=== PATIENT | male | born 1960 | race Caucasian/White ===

== ENCOUNTER 2021-10-02 07:54 | Outpatient (CLI) | payer OTHER, SELFPAY | END 2021-10-02 07:55 | disposition home or self-care (01) | PROVIDERS: PCP Family Medicine; Visit Provider Nurse Practitioner Family | DX: E11.622 Type 2 diabetes mellitus with other skin ulcer (principal); L97.322 Non-pressure chronic ulcer of left ankle with fat layer exposed; I89.0 Lymphedema, not elsewhere classified; I87.2 Venous insufficiency (chronic) (peripheral); L03.116 Cellulitis of left lower limb | CPT/HCPCS: 11042; 11045 ==

== ENCOUNTER 2021-10-09 07:51 | Outpatient (CLI) | payer OTHER, SELFPAY | END 2021-10-09 07:52 | disposition home or self-care (01) | PROVIDERS: PCP Family Medicine; Visit Provider Physician Assistant Surgical | DX: E11.622 Type 2 diabetes mellitus with other skin ulcer (principal); L97.822 Non-pressure chronic ulcer of other part of left lower leg with fat layer exposed; Z79.84 Long term (current) use of oral hypoglycemic drugs; I89.0 Lymphedema, not elsewhere classified; I87.2 Venous insufficiency (chronic) (peripheral) | CPT/HCPCS: 11042 ==

== ENCOUNTER 2021-10-16 07:53 | Outpatient (CLI) | payer OTHER, SELFPAY | END 2021-10-16 07:54 | disposition home or self-care (01) | LOC: WOUND 07:53 | PROVIDERS: PCP Family Medicine; Visit Provider Physician Assistant Surgical | DX: E11.622 Type 2 diabetes mellitus with other skin ulcer (principal); L97.822 Non-pressure chronic ulcer of other part of left lower leg with fat layer exposed; I89.0 Lymphedema, not elsewhere classified; I87.2 Venous insufficiency (chronic) (peripheral) | CPT/HCPCS: 11042 ==

== ENCOUNTER 2021-10-30 07:34 | Outpatient (CLI) | payer OTHER, SELFPAY | END 2021-10-30 07:35 | disposition home or self-care (01) | LOC: WOUND 07:34 | PROVIDERS: PCP Family Medicine; Visit Provider Physician Assistant Surgical | DX: E11.622 Type 2 diabetes mellitus with other skin ulcer (principal); L97.822 Non-pressure chronic ulcer of other part of left lower leg with fat layer exposed | CPT/HCPCS: 11042 ==

== ENCOUNTER 2021-11-13 07:59 | Outpatient (CLI) | payer OTHER, SELFPAY | END 2021-11-13 08:00 | disposition home or self-care (01) | LOC: WOUND 07:59 | PROVIDERS: PCP Family Medicine; Visit Provider Physician Assistant Surgical | DX: E11.622 Type 2 diabetes mellitus with other skin ulcer (principal); L97.822 Non-pressure chronic ulcer of other part of left lower leg with fat layer exposed | CPT/HCPCS: 11042 ==

== ENCOUNTER 2021-12-11 07:53 | Outpatient (CLI) | payer OTHER, SELFPAY ==
--- OUTSIDE RECORDS SUMMARY | 2021-12-11 07:56 | XMS_ITS | Encounter Summary ---
:1960 Author Organization [facility] Address [address] [place] [address] Care Team Providers Name Role Phone Elsewhere, Pcp Primary Care Provider Unavailable Reason for Visit Reason Comments Wound Care both lower legs Encounter Details Date Type Department Care Team Description 11/23/2017 Office Visit Department of Internal [place], Lory barron Venous Hypertension Idiopathic With Ulcer And Inflammation Of Right Lower Extremity (HCC) (Primary Dx); Medicine in [place] H[place], TANK INSULATOR RUBBER, C.N.P. Varicose Vein Lower Extremity With Ulcer And Inflammation Left (HCC); [address] Diabetes Mellitus Type 2 (HCC); [address] [place], [place] Edema Leg Chronic [place]ER [place] [phone] Social History Tobacco Use Types Packs/Day Years Used Date Smoking Tobacco: Never Smokeless Tobacco: Never Sex Assigned at Date Recorded Not on file documented as of this encounter Last Filed Vital Signs Vital Sign Reading Time Taken Comments Blood Pressure 137/68 11/23/2017 9:34 AM CDT Pulse 66 11/23/2017 9:34 AM CDT Temperature 36.5 ??C (97.7 ??F) 11/23/2017 9:34 AM CDT Respiratory Rate 18 11/23/2017 9:34 AM CDT Oxygen Saturation - - Inhaled Oxygen Concentration - - Weight 135 kg (298 lb 8.1 oz) 11/23/2017 9:34 AM CDT Height - - Body Mass Index 42.12 05/02/2017 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 - 11/23/2017 9:30 AM CDT Chief Complaint Patient presents with ??? Wound Care both lower legs Julien Ridley is a 57 y.o. male with bilateral lower extremity venous stasis ulcers complicated by diabetes mellitus type 2 and edema with lymphedema. Tank goes to a primary provider in [place]. He has appoint with her on Tuesday. His legs are quite swollen. He has fluid under his eyes. He states he has been eating salty foods. He works occurred [employer] as 4 hr a day. He does take his diuretic. He states he has gained 10 lb. He denies any headaches fevers chills or night sweats. Denies any cardiac, respiratory, abdominal orGU complaints. His pain in his legs related to the gross edema. Current Outpatient Prescriptions: ??? blood sugar diagnostic strips, Use to test blood glucose 4 times daily., Disp: , Rfl: ??? blood-glucose meter kit, Use to test blood glucose 4 times daily., Disp: , Rfl: ??? elastic bandage bandage, , Disp: , Rfl: 12 ??? gabapentin (for_NEURONTIN) 300 mg capsule, Take 300 mg by mouth 3 (three) times a day. , Disp: ,Rfl: ??? ibuprofen (ADVIL,MOTRIN) 200 mg capsule, Take 200 mg by mouth every 6 (six) hours as needed for pain., Disp: , Rfl: ??? lancets 33 gauge misc, Use to test blood glucose 4 times daily., Disp: , Rfl: ??? metFORMIN XR (GLUCOPHAGE-XR) 500 mg 24 hr tablet, Take 1,000 mg by mouth., Disp: , Rfl: ??? oxyCODONE (ROXICODONE) 5 mg immediate release tablet, Take 5-10 mg by mouth., Disp: , Rfl: ??? PETROLATUM GAUZE bandage, , Disp: , Rfl: 20 ??? potassium chloride (KLOR-CON SPRINKLE) 10 mEq ER sprinkle capsule, , Disp: , Rfl: ??? torsemide (DEMADEX) 5 mg tablet, , Disp: , Rfl: ??? zinc oxide 20 % ointment, , Disp: , Rfl: 12. Allergies Allergen Reactions ??? Dimethicone-Petrolatum Rash ??? Horse [place] Rash ??? Mepilex Ag [Silver Sulfate-Foam Bandage] Rash ??? Silver Rash and Other (see comments) Past Medical History: Diagnosis Date ??? Hypertension Chronic 01/08/2014 Hypertension (HTN) Chronic ??? Hypertension Essential Primary 01/08/2014 Hypertension (HTN) Chronic ??? 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 Hypertension Venous Chronic With Ulcer And Inflammation Left (HCC) 11/24/2009 Venous Stasis Ulcer with Inflammation ??? Infection Bacterial 06/17/2017 ??? Morbid Obesity Body Mass Index Greater Than Or Equal To 40 Adult ([facility]) 06/11/2015 Morbid Obesity Body Mass Index (BMI) >40 Adult ??? Varicose Vein Lower Extremity With Ulcer And Inflammation (HCC) 11/24/2009 Venous Stasis Ulcer with Inflammation ??? Varicose Vein Lower Extremity With Ulcer And Inflammation Bilateral (HCC) 02/21/2017 ??? Varicose Vein Lower Extremity With Ulcer And Inflammation Left ([facility]) 08/01/2015 Past Surgical History: Procedure Laterality Date ??? OTHER CONVERTED SHX (SEE COMMENT) N/A 10/24/2001 >Inversion stripping of the right greater saphenous vein. ??? OTHER CONVERTED SHX (SEE COMMENT) N/A 08/03/2001 >Left great saphenous vein stripping and varicose vein avulsion. ??? OTHER CONVERTED SHX (SEE COMMENT) N/A 06/01/2001 >Left fifth lumbar hemilaminectomy with left fifth lumbar-first sacral diskectomy. BP 137/68 (BP Location: Left arm, Patient Position: Sitting, Cuff Size: Large) Pulse 66 Temp 36.5 ??C (Temporal) Resp 18 Wt 135.4 kg BMI 42.12 kg/m?? PHYSICAL EXAMINATION: GENERAL: He is well groomed and appears tired. SKIN: The wounds on his left lower extremity have increased. Wound 1. Is on the anterior leg measuring 0.2 x 0.3 in superficial wound 2. Is distal measuring 1.5 cm x 1 cm and superficial. He has 3 wounds in the medial aspect of the leg the 1st wound measures 0.2 x 0.3 in his superficial that is at 12 o'clock face at 2 o'clock on o'clock face is another wound measuring 0.2 x 0.3 and superficial and a larger wound is at 6 o'clock measuring 0.8 x 1.5 and 0.1 deep. The leg has 4+ edema and lymphedema. The edema goes up his leg. The leg shows hemosiderin venous stasis changes. The right lower extremity has 2 wounds that are healing on the medial aspect of the leg the proximalwound measures 0.7 x 0.2 in a superficial the distal wound measures 0.5 x 0.4 and is 0.1 deep with the wound bed showing epithelialization and granulation. There is 4+ edema in the leg. There is venousstasis and hemosiderin changes noted. IMPRESSION/ REPORT/ PLAN Bilateral extremity venous stasis ulcers complicated by delayed healed bleeding morbid obesity, diabetes mellitus type 2 and edema. All the wounds were cleansed with saline and Hibiclens rinsed well and dried. Adaptic was applied over the wounds covered with sterile 4x4s held in place with a rolled gauze. Hisown compression was reapplied. I did talk to him about elevating his legs when he is at home higher than the level of his heart forabout 20 min a couple times a day. He will see his primary provider on Tuesday. I also suggested he have a low-salt diet. He will make sure his providers aware of his weight gain as well as a fluid in his legs, plus the new wounds on his left lower extremity. He will return in 2 weeks for ongoing wound care. documented in this encounter Plan of Treatment Not on filedocumented as of this encounter Visit Diagnoses Diagnosis Chronic Venous Hypertension Idiopathic W ith Ulcer And Inflammation Of Right Lower Extremity (HCC) - Primary Varicose Vein Lower Extremity With Ulcer And Inflammation Left (HCC) Diabetes Mellitus Type 2 (HCC) Edema Leg Chronic documented in this encounter Care Teams Footwear Sales Leader Relationship Specialty Start Date End Date Elsewhere, Pcp PCP - General Family Medicine 06/15/17 documented as of this encounter
--- OUTSIDE RECORDS SUMMARY | 2021-12-11 07:56 | XMS_ITS ---
:1960 Author Care Team Providers Name Role Phone GORDY SOL MD Primary Care Provider [phone] Allergies Code Code System Name Reaction Severity Status Onset Adhesive Tape ? ? Active ? 9785 RxNorm Silver ? ? Active ? Medications Name Status Start Date Stop Date ? ? ciprofloxacin 500 mg tablet Active ? Not available hydroxyzine pamoate 25 mg capsule Active ? Not available metformin ER 500 mg tablet,extended release 24 hr Active ? Not available oxycodone 5 mg tablet Active ? Not availa ble prednisone 20 mg tablet Active ? Not avai lable Senexon-S 8.6 mg-50 mg tablet Active ? No t available tadalafil 20 mg tablet Active ? Not avail able tamsulosin 0.4 mg capsule Active ? Not av ailable torsemide 10 mg tablet Active ? Not avail able Problems Name Status Onset Date Source ? Carcinoma of Prostate Active 11/21/2019 ? Primary Erectile Dysfunction Active 05/01/2020 ? Male Urinary Stress Incontinence Active 05/01/2020 ? Procedures Date Name Performed by ? ? Colonoscopy Information not avai lable Notes: NEVER PERFORMED OF 12/09/20 ? Prostatectomy Information not avai lable 11/13/2019 CT, Pelvis, W/o Contrast Information not available Results Lab Results Date Name Specimen Result Interpretation Description Value Range Status Address ? 10/24/2020 PSA, Serum or ? PSA, Total <0.04ng/mL ? ? Plasma 10/24/2020 PSA, Serum or ? No observation ? ? ? Plasma recorded. 05/01/2020 PSA, Serum or ? No observation ? ? ? Plasma recorded. ? PSA, Serum or ? PSA, Total <0.04 ng/ml ? ? Plasma ? PSA, Serum or ? PSA, Total <0.04 ng/Ml ? ? Plasma Past Encounters 10/24/2020 Carcinoma of Prostate; Malignant Tumor o f Prostate; Primary Erectile Dysfunction; Male Urinary Stress Incontinence Momo Mc MD: [address] [place] [phone], Ph. Social History Tobacco Smoking Status Never Smoker Vaccine List None recorded. Plan of Care Reminders Provider Appointments None recorded. ? ? Lab None recorded. ? ? Referral None recorded. ? ? Procedures None recorded. ? ? Surgeries None recorded. ? ? Imaging None recorded. ? ? Vitals 10/24/2020 10:10AM ESTABLISHED 10 Height Weight BMI 5 ft 11 in 285 lbs 39.7 kg/m2 05/01/2020 09:20AM ESTABLISHED 10 Height Weight BMI 5 ft 11 in 282 lbs 39.3 kg/m2 01/02/2020 08:10AM ESTABLISHED 10 Height Weight BMI 5 ft 11 in 282 lbs 39.3 kg/m2 11/21/2019 10:00AM ESTABLISHED 10 Height Weight BMI 5 ft 11 in 282 lbs 39.3 kg/m2
--- OUTSIDE RECORDS SUMMARY | 2021-12-11 07:56 | XMS_ITS | Encounter Summary ---
:1960 Author Organization [facility] Address [address] [place] [id number] Care Team Providers Name Role Phone Elsewhere, Pcp Primary Care Provider Unavailable Reason for Referral Specialty Diagnoses / Procedures Referred By Contact Refer red To Contact Ramandeep Austin M.D. [facility] [address] [place] [phone] Referral ID Status Reason Start Date Expiration Date Visits Requ ested Visits Authorized ENTRY MANAGER Encounter Details Date Type Department Care Team Description 02/11/2021 Orders Only RST PCP [facility] MNT Ramandeep Austin M.D. [address] [place] [address] [phone] (Wo rk) Social History Tobacco Use Types Packs/Day Years Used Date Smoking Tobacco: Never Smokeless Tobacco: Never Sex Assigned at Date Recorded Not on file documented as of this encounter Plan of Treatment Scheduled Referrals Name Type Priority Associated Order Schedule Diagnoses Covid immunization Outpatient Referral Routine Ex pected: office visit Booster 021 (Approximate), Expires: 02/11/2022 documented as of this encounter Visit Diagnoses Not on filedocumented in this encounter Care Teams Ornamental Iron Erector Relationship Specialty Start Date End Date Elsewhere, Pcp PCP - General Family Medicine 06/15/17 documented as of this encounter
--- OUTSIDE RECORDS SUMMARY | 2021-12-11 07:56 | XMS_ITS | Encounter Summary ---
:1960 Author Organization [facility] Address [address] [place] [address] Care Team Providers Name Role Phone Elsewhere, Pcp Primary Care Provider Unavailable Reason for Visit Reason Comments Wound Care left lower leg Encounter Details Date Type Department Care Team Description 08/24/2017 Office Visit Department of Internal Lory Sousa rtension Venous Medicine in Shahana Hester APRN, C.N.P. Chronic With Ulcer And [place] [address] Inflammation Left (HCC) [address] [place], [place] (Primary Dx) [place] [phone] Social History Tobacco Use Types Packs/Day Years Used Date Smoking Tobacco: Never Smokeless Tobacco: Never Sex Assigned at Date Recorded Not on file documented as of this encounter Last Filed Vital Signs Vital Sign Reading Time Taken Comments Blood Pressure 135/78 08/24/2017 8:51 AM CDT Pulse 63 08/24/2017 8:47 AM CDT Temperature 36.6 ??C (97.9 ??F) 08/24/2017 8:47 AM CDT Respiratory Rate - - Oxygen Saturation - - Inhaled Oxygen Concentration - - Weight 144 kg (317 lb 7.4 oz) 08/24/2017 8:47 AM CDT Height - - Body Mass Index 44.79 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 - 08/24/2017 9:00 AM CDT Continue wound care at home and return 4 weeks documented in this encounter Progress Notes Lory Sousa APRN, C.N.Hua. - 08/24/2017 9:00 AM CDT Chief Complaint Patient presents with ??? Wound Care left lower leg Julien Ridley is a 57 y.o. male with a left leg lower medial venous stasis ulcer complicated by history of delayed healing. He states that he was recently diagnosed with diabetes mellitus was started on metformin. He states he is doing well on the metformin. His primary provider is in [place]. He spent some time fishing and feels relaxed. He has no complaints with any review of systems. Current Outpatient Prescriptions: ??? gabapentin (for_NEURONTIN) 100 mg capsule, Take 100 mg by mouth 3 (three) times a day. , Disp: ,Rfl: ??? gabapentin (for_NEURONTIN) 300 mg capsule, Take 300 mg by mouth at bedtime. , Disp: , Rfl: ??? HYDROcodone-acetaminophen (for_NORCO) 5-325 mg per tablet, , Disp: , Rfl: ??? LYRICA 50 mg capsule, , Disp: , Rfl: ??? metFORMIN (GLUMETZA) 500 mg 24 hr tablet, Take 500 mg by mouth daily with breakfast., Disp: , Rfl: ??? naproxen sodium (ALEVE/ANAPROX) 220 mg tablet, Take 220 mg by mouth daily., Disp: , Rfl: Past Medical History: Diagnosis Date ??? Hypertension [...] Greater Than Or Equal To 40 Adult (HCC) 06/11/2015 Morbid Obesity Body Mass Index (BMI) >40 Adult ??? Varicose Vein Lower Extremity With Ulcer And Inflammation (HCC) 11/24/2009 Venous Stasis Ulcer with Inflammation ??? Varicose Vein Lower Extremity With Ulcer And Inflammation Bilateral (HCC) 02/21/2017 ??? Varicose Vein Lower Extremity With Ulcer And Inflammation Left (HCC) 08/01/2015 Past Surgical History: Procedure Laterality Date ??? OTHER CONVERTED SHX (SEE COMMENT) N/A 10/24/2001 >Inversion stripping of the right greater saphenous vein. ??? OTHER CONVERTED SHX (SEE COMMENT) N/A 08/03/2001 >Left great saphenous vein stripping and varicose vein avulsion. ??? OTHER CONVERTED SHX (SEE COMMENT) N/A 06/01/2001 >Left fifth lumbar hemilaminectomy with left fifth lumbar-first sacral diskectomy. BP 135/78 (BP Location: Left arm, Patient Position: Sitting, Cuff Size: Large) Pulse 63 Temp 36.6 ??C (Temporal) Wt (!) 144 kg BMI 44.79 kg/m?? PHYSICAL EXAMINATION: GENERAL: He is well groomed in no acute distress SKIN: The left medial lower leg wound measures 7 cm x 5.5 cm with several small open areas the deepest is 0.3. There is some excoriation in the phyllis wound skin. He has very sensitive skin and currentlyis using Xeroform as the only product that he can tolerate. IMPRESSION/ REPORT/ PLAN 1. Left lower extremity venous stasis ulcer complicated by history of delayed healing in a newly diagnosed diabetic patient. The wound was cleansed with saline and Hibiclens. The wounds rinse well with saline dried. Xeroform was applied to fit the open area only covered with a Telfa and an ABD. This was held in place with a rolled gauze. He will do his dressing changes at home and return in 4 weeks for ongoing wound care. documented in this encounter Plan of Treatment Not on filedocumented as of this encounter Visit Diagnoses Diagnosis Hypertension Venous Chronic With Ulcer A nd Inflammation Left (HCC) - Primary documented in this encounter Care Teams Wool Merchant Relationship Specialty Start Date End Date Elsewhere, Pcp PCP - General Family Medicine 06/15/17 documented as of this encounter
--- OUTSIDE RECORDS SUMMARY | 2021-12-11 07:56 | XMS_ITS | Encounter Summary ---
:1960 Author Organization [facility] Address [address] [place] [address] Care Team Providers Name Role Phone Elsewhere, Pcp Primary Care Provider Unavailable Reason for Visit Reason Comments Wound Care right lower leg Encounter Details Date Type Department Care Team Description 12/07/2017 Office Visit Department of Internal Lory Sousa Vari cose Vein Lower Extremity With Ulcer And Inflammation Left (HCC) (Primary Dx); Medicine in [place] Hester, PHARMACY AIDE, C.N.P. Stasis Ulcer Varicose Vein Right (HCC) [address] [place], [place] RAJWINDER HESTER [phone] Social History Tobacco Use Types Packs/Day Years Used Date Smoking Tobacco: Never Smokeless Tobacco: Never Sex Assigned at Date Recorded Not on file documented as of this encounter Last Filed Vital Signs Vital Sign Reading Time Taken Comments Blood Pressure 123/79 12/07/2017 9:10 AM CDT Pulse 75 12/07/2017 9:10 AM CDT Temperature 36.7 ??C (98.1 ??F) 12/07/2017 9:10 AM CDT Respiratory Rate 18 12/07/2017 9:10 AM CDT Oxygen Saturation - - Inhaled Oxygen Concentration - - Weight 128 kg (282 lb 13.6 oz) 12/07/2017 9:10 AM CDT Height - - Body Mass Index 39.91 05/02/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 - 12/07/2017 9:30 AM CDT Return as needed documented in this encounter Progress Notes Lory Sousa APRN, C.NJordan - 12/07/2017 9:30 AM CDT Chief Complaint Patient presents with ??? Wound Care right lower leg Julien Ridley is a 57 y.o. male with bilateral lower extremity venous stasis ulcers complicated by delayed healing history of diabetes and infection. He states his blood sugars have been under control. He has had little swelling in his legs and feelshis wounds are healing nicely. He offers no complaints with any review of systems. He is back to work at [employer] 8-12 hours a day. Current Outpatient Prescriptions: ??? blood sugar diagnostic [...] Rfl: ??? torsemide (DEMADEX) 5 mg tablet, 10 mg. , Disp: , Rfl: ??? traMADol (ULTRAM) 50 mg tablet, , Disp: , Rfl: 0 ??? zinc oxide 20 % ointment, , Disp: , Rfl: 12 Allergies Allergen Reactions ??? Dimethicone-Petrolatum Rash ??? Horse [place] Rash ??? Mepilex Ag [Silver Sulfate-Foam Bandage] Rash ??? Silver Rash and Other (see comments) Past Medical History: Diagnosis Date ??? Hypertension Chronic 01/08/2014 Hypertension (HTN) Chronic ??? Hypertension Essential Primary 01/08/2014 Hypertension (HTN) Chronic ??? 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 Hypertension Venous Chronic With Ulcer And Inflammation Left ([facility]) 11/24/2009 Venous Stasis Ulcer with Inflammation ??? Infection Bacterial 06/17/2017 ??? Morbid Obesity Body Mass Index Greater Than Or Equal To 40 Adult ([facility]) 06/11/2015 Morbid Obesity Body Mass Index (BMI) >40 Adult ??? Varicose Vein Lower Extremity With Ulcer And Inflammation ([facility]) 11/24/2009 Venous Stasis Ulcer with Inflammation ??? Varicose Vein Lower Extremity With Ulcer And Inflammation Bilateral ([facility]) 02/21/2017 ??? Varicose Vein Lower Extremity With Ulcer And Inflammation Left ([facility]) 08/01/2015 Past Surgical History: Procedure Laterality Date ??? OTHER CONVERTED SHX (SEE COMMENT) N/A 10/24/2001 >Inversion stripping of the right greater saphenous vein. ??? OTHER CONVERTED SHX (SEE COMMENT) N/A 08/03/2001 >Left great saphenous vein stripping and varicose vein avulsion. ??? OTHER CONVERTED SHX (SEE COMMENT) N/A 06/01/2001 >Left fifth lumbar hemilaminectomy with left fifth lumbar-first sacral diskectomy. BP 123/79 (BP Location: Right arm, Patient Position: Sitting, Cuff Size: Large) Pulse 75 Temp 36.7 ??C (Temporal) Resp 18 Wt 128.3 kg BMI 39.91 kg/m?? PHYSICAL EXAMINATION: GENERAL: He is well groomed in no acute distress SKIN: He has 2 small open areas on his right lower leg. The leg has some venous stasis and hemosiderin changes. There is trace edema in the foot. The proximal wound measures 0.3 x 0.1 cm and depth is superficial. The distal wound measures 0.4 x 0.2 and the depth is superficial. The left lower extremity has a small open area measuring 1 x 0.3 and superficial. There is no edema in this leg. There is scarring from old wounds. IMPRESSION/ REPORT/ PLAN Healing bilateral lower extremity venous stasis ulcers.. Both legs were washed with Hibiclens and saline rinsed well and dried. And Adaptic was applied over the wounds covered with a Telfa. He is currently discharged from wound care and will return only if his wounds worsened. His wounds are healing so nicely and he has almost total epithelialization on both legs. He did agree to contact me and make an appointment if the wounds worsen. I did tell him going forward he can see me in [place]. documented in this encounter Plan of Treatment Not on filedocumented as of this encounter Visit Diagnoses Diagnosis Varicose Vein Lower Extremity With Ulcer And Inflammation Left (HCC) - Primary Stasis Ulcer Varicose Vein Right (HCC) documented in this encounter Care Teams Software Integrator Relationship Specialty Start Date End Date Elsewhere, Pcp PCP - General Family Medicine 06/15/17 documented as of this encounter
--- OUTSIDE RECORDS SUMMARY | 2021-12-11 07:56 | XMS_ITS | Encounter Summary ---
:1960 Author Organization [facility] Address [address] [place] [address] Care Team Providers Name Role Phone Elsewhere, Pcp Primary Care Provider Unavailable Encounter Details Date Type Department Care Team Description 08/19/2017 Orders Only Department of [facility] [place], Lory V., Hypertens ion Venous Community Internal BUSINESS INTELLIGENCE CONSULTANT, C.N.P. Chronic With Ulcer And Medicine in [address] Inflammation Left (HCC) [place], [place] (Primary Dx) [address] [facility] [address] [place], [place] [phone] (Work) [phone] Social History Tobacco Use Types Packs/Day Years Used Date Smoking Tobacco: Never Smokeless Tobacco: Never Sex Assigned at Date Recorded Not on file documented as of this encounter Plan of Treatment Not on filedocumented as of this encounter Visit Diagnoses Diagnosis Hypertension Venous Chronic With Ulcer A nd Inflammation Left (HCC) - Primary documented in this encounter Care Teams Supervisor Newspaper Deliveries Relationship Specialty Start Date End Date Elsewhere, Pcp PCP - General Family Medicine 06/15/17 documented as of this encounter
--- OUTSIDE RECORDS SUMMARY | 2021-12-11 07:56 | XMS_ITS | Encounter Summary ---
:1960 Author Organization [facility] Address [address] [place] [address] Care Team Providers Name Role Phone Elsewhere, Pcp Primary Care Provider Unavailable Reason for Visit Reason Comments Other wound care, bilateral lower legs Encounter Details Date Type Department Care Team Description 10/06/2017 Office Visit Department of [facility], Karen Owens APRN, C.N.P. [address] [place] [address] Stasis Ulcer With Varicose Vein Left (HC C) (Primary Dx); Medicine, Cisne Tawana Matthews APRN, C.N.P., M.S.N. [address] [place] [address] Stasis Ulcer Varicose Vein Right (HCC); Clinic, in [facility] Diabete s Mellitus Type 2 (HCC); [facility] [address] [place] [address] Social History Tobacco Use Types Packs/Day Years Used Date Smoking Tobacco: Never Smokeless Tobacco: Never Sex Assigned at Date Recorded Not on file documented as of this encounter Last Filed Vital Signs Vital Sign Reading Time Taken Comments Blood Pressure 139/79 10/06/2017 11:10 AM CDT Pulse 92 10/06/2017 11:10 AM CDT Temperature 36.7 ??C (98.1 ??F) 10/06/2017 11:10 AM CDT Respiratory Rate - - Oxygen Saturation - - Inhaled Oxygen Concentration - - Weight 129 kg (285 lb 0.9 oz) 10/06/2017 11:10 AM CDT Height - - Body Mass Index 40.22 05/02/2017 12:50 PM DIRECTOR OF MEDICAL EDUCATION documented in this encounter Progress Notes Tawana Matthews APRN CKristineNLu., M.S.N. - 10/06/2017 11:30 AM CDT CHIEF COMPLAINT/REASON FOR VISIT Wound care HISTORY OF PRESENT ILLNESS Julien Ridley is a 57-year-old male with a history of chronic left lower extremity venous stasis ulcers. He was hospitalized in the [facility] for diabetes mellitus type 2. Shortly after, he was hospitalized in [facility] for bilateral lower extremity cellulitis. He ended up having large open wounds on his right leg also. He is currently on 2 antibiotics for cellulitis. He has been completing daily wound cares at home and brings in his instructions. He presents for routine wound care. He has no other concerns or complaints. SYSTEMS REVIEW All other systems reviewed and are negative except as stated in HPI. Patient Active Problem List Diagnosis ??? Ulcer of ankle ??? Morbid obesity ??? Hypertension Essential Primary ??? Hypertension Venous Chronic ??? Lesion Skin Leg ??? Ulcer Leg Right (HCC) ??? Infection Bacterial ??? Cellulitis Leg Left ??? Cellulitis Leg Right ??? Eczema ??? Edema Leg Chronic ??? Herniated Disc Lumbar ??? Insufficiency Venous Peripheral ??? Lymphedema ??? Reaction Allergic Initial ??? Varicose Vein Lower Extremity With Inflammation ??? Stasis Ulcer With Varicose Vein Left (HCC) ??? Swelling Leg ??? Diabetes Mellitus Type 2 (HCC) ??? Varicose Vein Lower Extremity With Ulcer And Inflammation Left (HCC) ??? Insufficiency Venous ??? Chronic Venous Hypertension Idiopathic With Ulcer And Inflammation Of Right Lower Extremity (HCC) Social History ??? Marital status: Social History Main Topics ??? Smoking status: Never Smoker ??? Smokeless tobacco: Never Used ??? Alcohol use Not on file ??? Drug use: Unknown ??? Sexual activity: Not on file Family History Problem Relation Age of Onset ??? Parkinsons disease Father Past Medical History: Diagnosis Date ??? Hypertension [...] With Ulcer And Inflammation Left ([facility]) 08/01/2015 Past Surgical History: Procedure Laterality Date ??? OTHER CONVERTED SHX (SEE COMMENT) N/A 10/24/2001 >Inversion stripping of the right greater saphenous vein. ??? OTHER CONVERTED SHX (SEE COMMENT) N/A 08/03/2001 >Left great saphenous vein stripping and varicose vein avulsion. ??? OTHER CONVERTED SHX (SEE COMMENT) N/A 06/01/2001 >Left fifth lumbar hemilaminectomy with left fifth lumbar-first sacral diskectomy. Allergies Allergen Reactions ??? Dimethicone-Petrolatum Rash ??? Horse [place] Rash ??? Mepilex Ag [Silver Sulfate-Foam Bandage] Rash ??? Silver Rash and Other (see comments) Current Outpatient Prescriptions: ??? blood sugar diagnostic strips, Use to test blood glucose 4 times daily., Disp: , Rfl: ??? blood-glucose meter kit, Use to test blood glucose 4 times daily., Disp: , Rfl: ??? cephalexin (KEFLEX) 500 mg capsule, , Disp: , Rfl: ??? gabapentin (for_NEURONTIN) 300 mg capsule, Take 300 mg by mouth 3 (three) times a day. , Disp: ,Rfl: ??? glyBURIDE (DIABETA) 2.5 mg tablet, Take 2.5 mg by mouth., Disp: , Rfl: ??? lancets 33 gauge misc, Use to test blood glucose 4 times daily., Disp: , Rfl: ??? metFORMIN XR (GLUCOPHAGE-XR) 500 mg 24 hr tablet, Take 1,000 mg by mouth., Disp: , Rfl: ??? oxyCODONE (ROXICODONE) 5 mg immediate release tablet, Take 5-10 mg by mouth., Disp: , Rfl: ??? potassium chloride (KLOR-CON SPRINKLE) 10 mEq ER sprinkle capsule, , Disp: , Rfl: ??? sulfamethoxazole-trimethoprim (BACTRIM DS) 800-160 mg per tablet, , Disp: , Rfl: ??? torsemide (DEMADEX) 5 mg tablet, , Disp: , Rfl: ??? elastic bandage bandage, , Disp: , Rfl: 12 ??? PETROLATUM GAUZE bandage, , Disp: , Rfl: 20 ??? zinc oxide 20 % ointment, , Disp: , Rfl: 12 VITAL SIGNS BP 139/79 (BP Location: Right arm, Patient Position: Sitting, Cuff Size: Large) Pulse 92 Temp 36.7 ??C Wt 129.3 kg BMI 40.22 kg/m?? PHYSICAL EXAMINATION GENERAL: This is a well-appearing adult male in no acute distress. He is alert and oriented to person, place and time. SKIN: Right lower extremity shows 2+ edema with erythema. The wound on the medial malleolus measures0.7 cm x 0.9 cm x 0.2 cm. The wound on the medial right calf is 0.9 x 0.4 cm. The adjacent wound measures 0.2 x 2.1 cm. The wound beds are showing slough with minimal granulating tissue. IMPRESSION/REPORT/PLAN #1 Stasis Ulcer With Varicose Vein Left (HCC) #2 Stasis Ulcer Varicose Vein Right (HCC) #3 Diabetes Mellitus Type 2 (HCC) #4 Lymphedema All wounds were cleansed with saline and dried. Vaseline gauze was cut to fit over the wounds. Vanicream applied to bilateral lower legs. Wounds were covered with sterile gauze and an ABD pad. Bilateral legs were covered in Kerlix to keep dressings in place. A knee high edema flow stocking was appliedwith a tubigrips. Follow-up wound care is set for next week. All questions have been answered and patient is in agreement with this plan. ADMINISTRATIVE BILLING: Total visit time 40 minutes, with 10 minutes spent in counseling. documented in this encounter Plan of Treatment Not on filedocumented as of this encounter Visit Diagnoses Diagnosis Stasis Ulcer With Varicose Vein Left (HC C) - Primary Stasis Ulcer Varicose Vein Right (HCC) Diabetes Mellitus Type 2 (HCC) Lymphedema documented in this encounter Care Teams Weigher Alloy Relationship Specialty Start Date End Date Elsewhere, Pcp PCP - General Family Medicine 06/15/17 documented as of this encounter
--- OUTSIDE RECORDS SUMMARY | 2021-12-11 07:56 | XMS_ITS | Encounter Summary ---
:1960 Author Organization [facility] Address [address] [place] [address] Care Team Providers Name Role Phone Elsewhere, Pcp Primary Care Provider Unavailable Reason for Visit Reason Comments Other facial swelling - [place]did get wind and sun burn and eyes were itchy x 1 day Encounter Details Date Type Department Care Team Description 08/24/2018 Office Visit Urgent Care in [place] Dermatitis (Primary Dx); Elma Hector M.D. Cerumen Impacted Bilateral [address] [place] [address] Social History Tobacco Use Types Packs/Day Years Used Date Smoking Tobacco: Never Smokeless Tobacco: Never Sex Assigned at Date Recorded Not on file documented as of this encounter Last Filed Vital Signs Vital Sign Reading Time Taken Comments Blood Pressure 145/80 08/24/2018 3:06 PM CDT Pulse 82 08/24/2018 3:06 PM CDT Temperature 37.3 ??C (99.1 ??F) 08/24/2018 3:06 PM CDT Respiratory Rate 16 08/24/2018 3:06 PM CDT Oxygen Saturation - - Inhaled Oxygen Concentration - - Weight 128 kg (281 lb 8.4 oz) 08/24/2018 3:06 PM CDT Height - - Body Mass Index 39.72 05/02/2017 12:50 PM MED SURG RN documented in this encounter Progress Notes [place] M.D. - 08/24/2018 2:15 PM CDT CHIEF COMPLAINT / REASON FOR VISIT Julien Ridley is a 58 y.o. male who presents for evaluation of Other (facial swelling - was up [facility] -did get wind and sun burn and eyes were itchy x 1 day ). HISTORY OF PRESENT ILLNESS This pleasant 58-year-old male just returned from a week-long fishing trip to [facility] presents indicating that he did have a fair amount of facial sun exposure without using sunscreen. He has developed significant redness, swelling, and pruritus over the facial surface to neckline. Patient does have a prior history of recurrent cellulitis and actually has been given a prescriptionfor clindamycin that he can take in the event of recurrence. As a diabetic, his most recent blood glucose range has been in the 117-150 range. He is followed by primary care in [place] and his last hemoglobin A1c reportedly was just over 6 earlier this month.He has had no fever and no chill. No other acute symptomatic concerns are voiced. REVIEW OF SYSTEMS No other current acute HEENT or cardio respiratory positive. CURRENT MEDICATIONS As per EMR. ALLERGIES Allergies as of 08/24/2018 - Reviewed 08/24/2018 Allergen Reaction Noted ??? Dimethicone-petrolatum Rash 02/01/2014 ??? Horse chestnut Rash 07/16/2016 ??? Mepilex ag [silver sulfate-foam bandage] Rash 02/01/2014 ??? Silver Rash and Other (see comments) 02/08/2014 VITALS SIGNS BP 145/80 (BP Location: Right arm, Patient Position: Sitting, Cuff Size: Regular) Pulse 82 Temp 37.3 ??C (Temporal) Resp 16 Wt 128 kg BMI 39.72 kg/m?? PHYSICAL EXAMINATION General: Pleasant male in no acute distress with obvious facial swelling left greater than right. HEENT: External auditory canals are full of cerumen successfully removed with aid of irrigation at patient request and thereafter the TMs appear clear. Nose is free of congestion. Nasopharynx is not inflamed and there is no angioedema of the nasopharynx. Patient however has rather diffuse swelling about the left greater than right face and considerable erythema consistent with sun exposure but no area of localized tenderness. I see no definite evidence of secondary infection. Dermatitis alone is appreciated about the neckline in the distribution of sun exposure. No blistering. Cardiovascular: Regular. Lungs: Clear. Extremities: Patient also has slight sun exposure burn over the dorsal hands. ASSESSMENT/PLAN #1 Dermatitis l Facial/neck dermatitis consistent with sunburn and an element of dermatitis with angioedema without clear evidence of secondary bacterial infection. #2 Cerumen Impacted Bilateral Status post debridement with irrigation. DIAGNOSTIC; CBC returns of benign appearance. Attention was called the patient's borderline blood pressure elevation today the declined a recheck at this time. THERAPEUTIC: Endorse Benadryl orally as directed. Discussed oral verses topical steroid addition for the facial region and he preferred topical. Triamcinolone is provided as per EMR reviewing long-term topical steroid risks. Cerumen debridement as discussed PATIENT EDUCATION: Reviewed all of the above. Follow-up p.r.n. lack of steady and complete recovery. [place] M.D. documented in this encounter Procedure Notes Iesha Ya C.M.A. - 08/24/2018 2:15 PM CDTAssociated Order(s): EAR CERUMEN REMOVAL Pre-Procedure Diagnose(s): Cerumen Impacted Bilateral Post-Procedure Diagnose(s): Cerumen Impacted Bilateral Ear cerumen removal Date/Time: 08/24/2018 4:17 PM Performed by: IESHA YA Authorized by: [place]NER [place] Pre-procedural details: Indication: cerumen impaction Procedure details: Location: Right ear and left ear Procedure type: curette and irrigation Microscope used: yes Post-procedure details: Inspection: Complete impaction removal Hearing quality: Improved Procedure completed successfully: yes Complications: no immediate complications documented in this encounter Plan of Treatment Not on filedocumented as of this encounter Procedures Procedure Name Priority Date/Time Associated Diagnosis Comme nts CBC WITH STAT 08/24/2018 4:37 PM Dermatitis Results f or this DIFFERENTIAL, B CDT procedure ar e in the results section. [place] RMVL IMPACT Routine 08/24/2018 2:15 PM Cerumen Impacted Res ults for this CERUMEN CDT Bilateral procedure are i n W/INSTRUMENT UNILAT the resu lts section. documented in this encounter Results CBC with Differential, Blood (08/24/2018 4:37 PM CDT) P athologist Signature Hemoglobin 14.6 13.2 - 08/24/2018 [facility] 16.6 g/dL 4:42 PM CDT [facility] Hematocrit 44.3 38.3 - 08/24/2018 [facility] 48.6 % 4:42 PM CDT [facility] Erythrocytes 4.90 4.35 - 08/24/2018 [facility] 5.65 4:42 PM CDT [facility]12[facility] MCV 90.4 78.2 - 08/24/2018 [facility] 97.9 fL 4:42 PM CDT [facility] RBC Distrib Width 13.8 11.8 - 08/24/2018 [facility] 14.5 % 4:42 PM CDT [facility] Platelet Count 251 135 - 317 08/24/2018 [facility] x10(9)/L 4:42 PM CDT [facility] Leukocytes 7.4 3.4 - 9.6 08/24/2018 [facility] x10(9)/L 4:42 PM CDT [facility] Neutrophils 5.11 1.56 - 08/24/2018 [facility] 6.45 4:42 PM CDT [facility](9[facility] Lymphocytes 1.28 0.95 - 08/24/2018 [facility] 3.07 4:42 PM CDT [facility](9[facility] Monocytes 0.51 0.26 - 08/24/2018 [facility] 0.81 4:42 PM CDT [facility] x10(9[facility] Eosinophils 0.41 0.03 - 08/24/2018 [facility] 0.48 4:42 PM CDT [facility](9[facility] Basophils 0.06 0.01 - 08/24/2018 [facility] 0.08 4:42 PM CDT [facility](9[facility] Specimen Anatomical Collection Method Collection Time Receive d Time (Source) Location / / Volume Laterality Blood (Blood, 08/24/2018 4:37 PM 08/25/19 19 4:39 Venous) CDT PM CDT [place] M.D. LAB BLOOD ADD-ON Performing Organization Address City/State/ZIP Code Phon e Number [facility] [address] [place] [address] LAB [place] RMVL IMPACT CERUMEN W/INSTRUMENT UNILAT (08/24/2018 2:15 PM CDT) Narrative [facility]ODAL - 08/24/2018 2:15 PM CDT Iesha Ya, C.M.A. ? 08/24/2018 10:16 PM Ear cerumen removal Date/Time: 08/24/2018 4:17 PM Performed by: IESHA YA Authorized by: CONNER BIR[place] Pre-procedural details: ??Indication: cerumen impaction ?? Procedure details: ??Location: ??Right ear and left ear ??Procedure type: curette and irrigatio n ?Microscope used: yes ?? Post-procedure details: ??Inspection: ??Complete impaction romel sasha ??Hearing quality: ??Improved ??Procedure completed successfully: yes ?Complications: no immediate complicat ions ?? [place] M.D. PROCEDURE/MINOR SURGICAL ORD ERABLES Performing Organization Address City/[facility]/ZIP Code Phon e Number MMODAL MMODAL NA documented in this encounter Visit Diagnoses Diagnosis Dermatitis - Primary Cerumen Impacted Bilateral documented in this encounter Care Teams Family Specialist Relationship Specialty Start Date End Date Elsewhere, Pcp PCP - General Family Medicine 06/15/17 documented as of this encounter
--- OUTSIDE RECORDS SUMMARY | 2021-12-11 07:56 | XMS_ITS | Encounter Summary ---
:1960 Author Organization [facility] Address [address] [place] [address] Care Team Providers Name Role Phone Elsewhere, Pcp Primary Care Provider Unavailable Encounter Details Date Type Department Care Team Description 06/14/2020 Admin Visit Department of Family Medicine, [address] [place] [id number] Formerly named [facility] [phone] Social History Tobacco Use Types Packs/Day Years Used Date Smoking Tobacco: Never Smokeless Tobacco: Never Sex Assigned at Date Recorded Not on file documented as of this encounter Plan of Treatment Not on filedocumented as of this encounter Visit Diagnoses Not on filedocumented in this encounter Additional Health Concerns Infection Onset Date Last Indicated Resolved Time COVID19 Pending 06/14/2020 06/14/2020 06/15/2020 3:28 PM CDT documented as of this encounter Care Teams Truck Spotter Relationship Specialty Start Date End Date Elsewhere, Pcp PCP - General Family Medicine 06/15/17 documented as of this encounter
--- OUTSIDE RECORDS SUMMARY | 2021-12-11 07:56 | XMS_ITS | Encounter Summary ---
:1960 Author Organization [facility] Address [address] [place] [address] Care Team Providers Name Role Phone Elsewhere, Pcp Primary Care Provider Unavailable Reason for Visit Reason Onset Date Comments Post Hospital Follow-up 09/21/2017 Post Hospt Appt 09/26 8:15 Mini [place] Encounter Details Date Type Department Care Team Description 09/21/2017 Clinical Communication Department of [facility] Family Medicine, L, SOIL TECHNICIAN, Follow-up ( Post [facility], C.N.P., D.N.P. Hospt Appt 09/[address] 8:15 Mini Wesley) [place], [place] [address] [address] [place] [phone] [address] (Work) [phone] Social History Tobacco Use Types Packs/Day Years Used Date Smoking Tobacco: Never Smokeless Tobacco: Never Sex Assigned at Date Recorded Not on file documented as of this encounter Miscellaneous Notes Telephone Encounter - Naomy Rudolph R.N. - 09/21/2017 9:17 AM CDT Noted Telephone Encounter - Sandie Nam - 09/21/2017 9:06 AM CDT Post Hosp, lucy Hester discharge 09/21/2017 Appt 09/26 8:15 Mini [place] documented in this encounter Plan of Treatment Not on filedocumented as of this encounter Visit Diagnoses Not on filedocumented in this encounter Care Teams Accounting File Clerk Relationship Specialty Start Date End Date Elsewhere, Pcp PCP - General Family Medicine 06/15/17 documented as of this encounter
--- OUTSIDE RECORDS SUMMARY | 2021-12-11 07:56 | XMS_ITS | Encounter Summary ---
:1960 Author Organization [facility] Address [address] [place] [address] Care Team Providers Name Role Phone Elsewhere, Pcp Primary Care Provider Unavailable Reason for Visit Reason Comments Wound Care right lower leg Encounter Details Date Type Department Care Team Description 10/12/2017 Office Visit Department of Internal [place], Lory barron Venous Hypertension Idiopathic With Ulcer And Inflammation Of Right Lower Extremity (HCC) (Primary Dx); Medicine in [place], [place], C.N.P. Varicose Vein Lower Extremity With Ulcer And Inflammation Left (HCC); [address] Diabetes Mellitus Type 2 ([facility]) [address] [place], [place] [phone] Social History Tobacco Use Types Packs/Day Years Used Date Smoking Tobacco: Never Smokeless Tobacco: Never Sex Assigned at Date Recorded Not on file documented as of this encounter Last Filed Vital Signs Vital Sign Reading Time Taken Comments Blood Pressure 116/76 10/12/2017 8:44 AM CDT Pulse 80 10/12/2017 8:44 AM CDT Temperature 36.6 ??C (97.9 ??F) 10/12/2017 8:44 AM CDT Respiratory Rate 18 10/12/2017 8:44 AM CDT Oxygen Saturation - - Inhaled Oxygen Concentration - - Weight 127 kg (280 lb 6.8 oz) 10/12/2017 8:44 AM CDT Height - - Body Mass Index 39.57 05/02/2017 12:50 PM RETAIL SHIFT SUPERVISOR documented in this encounter Patient Instructions Patient InstructionsDuLory villanueva APRN CKristineN.P. - 10/12/2017 9:00 AM CDT Have an x-ray done of the right ankle and then you may go home. Continue daily wound care routine return in 1 week documented in this encounter Progress Notes Lory Sousa APRN, C.NLu. - 10/12/2017 9:00 AM CDT Chief Complaint Patient presents with ??? Wound Care right lower leg Julien Ridley is a 57 y.o. male with bilateral lower extremity venous stasis ulcers. He is here today for wound care. He is completing his course of antibiotic therapy. He saw his primary provider in [place] on Tuesday. His diabetes is under good control and his blood sugars are within range per his report. He has pain in the right inner malleolar wound but otherwise no pain. He is very happy on how his left lower leg is healing. He offers no complaints with any review of systems. He is spending his days with his legs up and only being on his legs 15 min at a time. Overall, he feels his health is improving. Current Outpatient Prescriptions: ??? blood sugar diagnostic [...] Allergen Reactions ??? Dimethicone-Petrolatum Rash ??? Horse [place] Rash ??? Mepilex Ag [Silver Sulfate-Foam Bandage] [...] Greater Than Or Equal To 40 Adult ([facility]) 06/11/2015 Morbid Obesity Body Mass Index (BMI) >40 Adult ??? Varicose Vein Lower Extremity With Ulcer And Inflammation (HCC) 11/24/2009 Venous Stasis Ulcer with Inflammation ??? Varicose Vein Lower Extremity With Ulcer And Inflammation Bilateral (HCC) 02/21/2017 ??? Varicose Vein Lower Extremity With Ulcer And Inflammation Left ([facility]) 08/01/2015 Past Surgical History: Procedure Laterality Date ??? OTHER CONVERTED SHX (SEE COMMENT) N/A 10/24/2001 >Inversion stripping of the right greater saphenous vein. ??? OTHER CONVERTED SHX (SEE COMMENT) N/A 08/03/2001 >Left great saphenous vein stripping and varicose vein avulsion. ??? OTHER CONVERTED SHX (SEE COMMENT) N/A 06/01/2001 >Left fifth lumbar hemilaminectomy with left fifth lumbar-first sacral diskectomy. BP 116/76 (BP Location: Right arm, Patient Position: Sitting, Cuff Size: Large) Pulse 80 Temp 36.6 ??C (Temporal) Resp 18 Wt 127.2 kg BMI 39.57 kg/m?? PHYSICAL EXAMINATION: GENERAL: He is well groomed in no acute distress SKIN: Right lower extremity has 1 open area measuring 1 x 1 cm 0.2 deep on the inner malleolus. The leg is showing tight edema with erythema from toes to knees. There is no warmth to the touch ears no drainage. The wound bed has a white center and is in the shape of an upside-down triangle. Left lower extremity has medial wounds for total 4. Wound 1. Is from 9-12 o'clock on o'clock face measuring 4 cm x 0.7 cm. The next wound which would be wound 2. Is from 1-2 o'clock measuring 1 x 0.4 cm superficial deep in the center of the clock face is a small wound measuring 1 cm x 0.7 this wound is not draining. And at 6 o'clock for wound 4, this wound measures 2 x 0.5 cm. There is a dark eschar covering all the wounds. IMPRESSION/ REPORT/ PLAN 1. Bilateral lower extremity venous stasis ulcers, complicated by delayed healing, infection and diabetes mellitus type 2. The wounds were cleansed with saline and Hibiclens rinse well with saline and dried. The right inner malleolar wound had a Vaseline gauze applied with a 4 x [address] with a Kerlix wrap. He will be sent to x-ray to determine if there is any osteomyelitis. The white center could be exposed tendon or bone. The left lower extremity wounds were debrided with a pickup to remove the eschar revealing pink healthy tissue underneath all except for wound 2. A Vaseline gauze was applied on the new epithelialization of all the wounds to keep them a protected. Sterile 4x4s were applied and held in place with a rolled gauze. His own compression was reapplied. He will go to x-ray and then go home. He will return 1 week for ongoing wound care documented in this encounter Plan of Treatment Not on filedocumented as of this encounter Visit Diagnoses Diagnosis Chronic Venous Hypertension Idiopathic W ith Ulcer And Inflammation Of Right Lower Extremity (HCC) - Primary Varicose Vein Lower Extremity With Ulcer And Inflammation Left (HCC) Diabetes Mellitus Type 2 (HCC) documented in this encounter Care Teams Car Oiler Relationship Specialty Start Date End Date Elsewhere, Pcp PCP - General Family Medicine 06/15/17 documented as of this encounter
--- OUTSIDE RECORDS SUMMARY | 2021-12-11 07:56 | XMS_ITS | Encounter Summary ---
:1960 Author Organization [facility] Address [address] [place] [address] Care Team Providers Name Role Phone Elsewhere, Pcp Primary Care Provider Unavailable Encounter Details Date Type Department Care Team Description 10/12/2017 Hospital Encounter Department of Lory Sousa Chronic Venous Radiology in V., PRODUCTION ARTIST, Hypertension [place], [place] C.N.P. Idiopathic With Ulcer [address] And Inflammation Of [place], [place], [place] Right Lower Ex tremity [phone] ([facility]) [phone] Social History Tobacco Use Types Packs/Day Years Used Date Smoking Tobacco: Never Smokeless Tobacco: Never Sex Assigned at Date Recorded Not on file documented as of this encounter Medications at Time of Discharge Medication Sig Dispensed Refills Start Date End Date blood-glucose meter kit Use to test blood 0 09/22 glucose 4 times daily. elastic bandage bandage 12 10/03/2017 metFORMIN XR Take 1,000 mg by 0 09/23/2017 (GLUCOPHAGE-XR) 500 mg mouth. 24 hr tablet torsemide (DEMADEX) 5 mg 10 mg. 0 09/29/2017 tablet zinc oxide 20 % ointment 12 10/03/2017 blood sugar diagnostic Use to test blood 0 201704/17/2021 strips glucose 4 times daily. gabapentin Take 300 mg by mouth 0 06/06/201704/04 (for_NEURONTIN) 300 mg 3 (three) times a capsule day. glyBURIDE (DIABETA) 2.5 Take 2.5 mg by mouth. 0 0 09/23/2017 10/19/2017 mg tablet lancets 33 gauge misc Use to test blood 0 018 04/17/2021 glucose 4 times daily. oxyCODONE (ROXICODONE) 5 Take 5-10 mg by 0 201708/24/2018 mg immediate release mouth. tablet PETROLATUM GAUZE bandage 20 10/03/2017 04/17/2021 potassium chloride 0 09/29/20172018 (KLOR-CON SPRINKLE) 10 mEq ER sprinkle capsule documented as of this encounter Progress Notes Louisa Leal LKristineP.N. - 10/12/2017 2:31 PM CDT Patient notified. documented in this encounter Plan of Treatment Not on filedocumented as of this encounter Procedures Procedure Name Priority Date/Time Associated Comments Diagnosis DX ANKLE RIGHT 3+ RAD - Routine 10/12/2017 10:10 Chronic Venous Res ults for this VIEWS (most inpatients AM CDT Hypertension procedure a re in and all Idiopathic With the results outpatients) Ulcer And section. Inflammation Of Right Lower Extremity (HCC) documented in this encounter Results DX Ankle Right 3+ Views (10/12/2017 10:10 AM CDT) Anatomical Region Laterality Modality Lower Extremity, Ankle, Musculoskeletal RST LOS Right Computed Radiography Specimen (Source) Anatomical Collection Method Collection Time Re ceived Time Location / / Volume Laterality 10/12/2017 10:45 AM CDT Impressions 10/12/2017 10:46 AM CDT IMPRESSION: Soft tissue swelling about the right ankle. No definitive radiographic findings for osteomyelitis. Degenerative arthritis. Calcaneal spurs. Vascular calcifications. If there is ongoing clinical concern, MRI is more sensitive. Narrative 10/12/2017 10:46 AM CDT EXAM: DX ANKLE RIGHT 3+ VIEWS Procedure Note Erica Hicks M.D. - 10/12/2017Forma tting of this note might be different from the original. EXAM: DX ANKLE RIGHT 3+ VIEWS IMPRESSION: Soft tissue swelling about t he right ankle. No definitive radiographic findings for osteomyelitis. Degenerative arthritis. Calcaneal spurs. Vascular calcifications. If there is ongoing clinical concern, MRI is more sensitive. Lory Sousa APRN, C.N.P. 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
--- OUTSIDE RECORDS SUMMARY | 2021-12-11 07:56 | XMS_ITS | Encounter Summary ---
:1960 Author Organization [facility] Address [address] [place] [address] Care Team Providers Name Role Phone Elsewhere, Pcp Primary Care Provider Unavailable Reason for Visit Reason Onset Date Comments Treatment Questions 09/19/2017 Encounter Details Date Type Department Care Team Description 09/19/2017 Clinical Communication Department of Lory Sousa Questions Family Medicine, VKristine, ZOE, [facility], in C.N.P. [place] [address] [place], [place] PAULCHRISTIANRAJWINDER [place] [phone] Social History Tobacco Use Types Packs/Day Years Used Date Smoking Tobacco: Never Smokeless Tobacco: Never Sex Assigned at Date Recorded Not on file documented as of this encounter Miscellaneous Notes Telephone Encounter - Louisa Leal L.PKristineN. - 09/19/2017 9:32 AM CDT Patient notified and transferred to nurse line to be evaluated. Telephone Encounter - Liza Silva - 09/19/2017 8:01 AM CDT Patient calling in regards to the appt on Tuesday and doesn't think he can wait that long and would like to speak to someone to advise what to do. documented in this encounter Plan of Treatment Not on filedocumented as of this encounter Visit Diagnoses Not on filedocumented in this encounter Care Teams Dairy Bacteriologist Relationship Specialty Start Date End Date Elsewhere, Pcp PCP - General Family Medicine 06/15/17 documented as of this encounter
--- OUTSIDE RECORDS SUMMARY | 2021-12-11 07:56 | XMS_ITS | Encounter Summary ---
:1960 Author Organization [facility] Address [address] [place] [address] Care Team Providers Name Role Phone Elsewhere, Pcp Primary Care Provider Unavailable Encounter Details Date Type Department Care Team Description 09/21/2017 Hospital Encounter Department of Kristopher Argueta Of Breath Radiology in [place] [facility].DKristine [address] [place]ST[place] [phone] Social History Tobacco Use Types Packs/Day Years Used Date Smoking Tobacco: Never Smokeless Tobacco: Never Sex Assigned at Date Recorded Not on file documented as of this encounter Medications at Time of Discharge Medication Sig Dispensed Refills Start Date End Date gabapentin Take 100 mg by mouth 0 06/06/201706/2017 (for_NEURONTIN) 100 mg 3 (three) times a capsule day. gabapentin Take 300 mg by mouth 0 06/06/201704/04 (for_NEURONTIN) 300 mg 3 (three) times a capsule day. HYDROcodone-acetaminophen 0 06/06/2017 10/04/2017 (for_NORCO) 5-325 mg per tablet LYRICA 50 mg capsule 0 06/21/201706/2017 metFORMIN (GLUMETZA) 500 Take 500 mg by mouth 0 10/04/2017 mg 24 hr tablet daily with breakfast. naproxen sodium Take 220 mg by mouth 0 10/04/2017 (ALEVE/ANAPROX) 220 mg daily. tablet documented as of this encounter Plan of Treatment Not on filedocumented as of this encounter Procedures Procedure Name Priority Date/Time Associated Comments Diagnosis DX CHEST 1 VIEW RAD - Routine 09/21/2017 5:03 Shortness Of Results for this (most inpatients PM CDT Breath procedure a re in and all the results outpatients) section. documented in this encounter Results DX Chest 1 View (09/21/2017 5:03 PM CDT) Anatomical Region Laterality Modality Chest, Thoracic RST LOS N/A Digital Radiogra phy Specimen (Source) Anatomical Collection Method Collection Time Re ceived Time Location / / Volume Laterality 09/22/2017 7:31 AM CDT Impressions 09/22/2017 7:32 AM CDT IMPRESSION: No acute findings. Narrative 09/22/2017 7:32 AM CDT EXAM: DX CHEST 1 VIEW COMPARISON: May 17, 2011. FINDINGS: No focal areas of consolidatio n. No pneumothorax. Chest otherwise negative for acute findi ngs. Procedure Note Juanito Padilla M.D. - 09/22/2017Forma tting of this note might be different from the original. EXAM: DX CHEST 1 VIEW COMPARISON: May 17, 2011. FINDINGS: No focal areas of consolidatio n. No pneumothorax. Chest otherwise negative for acute findi ngs. IMPRESSION: No acute findings. Kristopher Rodriguez M.D. IMG DIAGNOSTIC IMAGIN G PROCEDURES documented in this encounter Visit Diagnoses Diagnosis Shortness Of Breath documented in this encounter Care Teams Jewelry Store Manager Relationship Specialty Start Date End Date Elsewhere, Pcp PCP - General Family Medicine 06/15/17 documented as of this encounter
--- OUTSIDE RECORDS SUMMARY | 2021-12-11 07:56 | XMS_ITS | Encounter Summary ---
:1960 Author Organization [facility] Address [address] [place] [address] Care Team Providers Name Role Phone Elsewhere, Pcp Primary Care Provider Unavailable Reason for Visit Reason Onset Date Comments Outpatient COVID-19 Testing 10/03/2019 Encounter Details Date Type Department Care Team Description 10/03/2019 External Outreach Department of Hitesh Peña Infect ion Upper Internal Medicine in J, D.O. Respiratory (Primary [place], [place] [address] Dx) [address] [place] [phone] Social History Tobacco Use Types Packs/Day Years Used Date Smoking Tobacco: Never Smokeless Tobacco: Never Sex Assigned at Date Recorded Not on file documented as of this encounter Progress Notes Criselda Granados, R.N. - 10/03/2019 10:03 AM CDT Encounter created for the drive-through COVID-19 testing. documented in this encounter Plan of Treatment Not on filedocumented as of this encounter Procedures Procedure Name Priority Date/Time Associated Diagnosis Comme nts SARS CORONAVIRUS-2 Routine 10/03/2019 10:05 AM Infection Upper Results for this RNA, V CDT Respiratory procedure are i n the results section. documented in this encounter Results SARS Coronavirus-2 RNA, V Symptomatic (10/03/2019 10:05 AM CDT) [facility] Method Time Signature SARS-CoV-2 Swab, 10/04/2019 MKTO Specimen Nasopharynx 12:15 AM Source CDT SARS CoV-2 Undetected Undetected 10/04/2019 MKTO RNA, TMA 12:15 AM CDT Comment: SARS-CoV-2 RNA absent. This result does not rule out COVID-19 in the patient, as the sensitivity of the test depends o n the timing of the specimen collection and the quality of the specim en. Result should be correlated with patient's history and clinical presentat ion. ----ADDITIONAL INFORMATION---- This test is performed using the Aptima SARS-CoV-2 assay ([employer] which has received Emergency Use Authori zation (EUA) by the U.S. Food and Drug Administration. Fact sheets for this Emergency Use Autho rization (EUA) assay can be found at the following links: For Healthcare Providers: https://www.fd a.gov/media/312351/download For Patients: https://www.fda.gov/media/ 472930/download Specimen Anatomical Collection Method Collection Time Receive d Time (Source) Location / / Volume Laterality Varies 10/03/2019 10:05 10/03/2019 2:32 (Nasopharynx) AM CDT PM CDT Hitesh Peña D.O. LAB MICROBIOLOGY - GENERAL O TORIERABLES Performing Organization Address City/State/ZIP Code Phon e Number [facility]- [address] [place] [address] [place] [address] System [address] documented in this encounter Visit Diagnoses Diagnosis Infection Upper Respiratory - Primary documented in this encounter Additional Health Concerns Infection Onset Date Last Indicated Resolved Time COVID19 Pending 10/03/2019 10/03/2019 10/04/2019 12:16 AM CDT documented as of this encounter Care Teams Medical Aide Relationship Specialty Start Date End Date Elsewhere, Pcp PCP - General Family Medicine 06/15/17 documented as of this encounter
--- OUTSIDE RECORDS SUMMARY | 2021-12-11 07:56 | XMS_ITS | Encounter Summary ---
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 Diabetes Mellitus Type 2 (HCC) [address], [place] [phone] Social History Tobacco Use Types Packs/Day Years Used Date Smoking Tobacco: Never Smokeless Tobacco: Never Sex Assigned at Date Recorded Not on file documented as of this encounter Last Filed Vital Signs Vital Sign Reading Time Taken Comments Blood Pressure 122/78 11/02/2017 8:48 AM CDT Pulse 64 11/02/2017 8:48 AM CDT Temperature 36.3 ??C (97.3 ??F) 11/02/2017 8:48 AM CDT Respiratory Rate - - Oxygen Saturation - - Inhaled Oxygen Concentration - - Weight 130 kg (287 lb 0.6 oz) 11/02/2017 8:48 AM CDT Height - - Body Mass Index 40.5 05/02/2017 12:50 PM OUTREACH LIAISON documented in this encounter Patient Instructions Patient InstructionsLory Sousa APRN, C.N.P. - 11/02/2017 9:00 AM CDT Continue wound care at home and return in 1 week documented in this encounter Progress Notes Lory Sousa APRN, C.N.P. - 11/02/2017 9:00 AM CDT Chief Complaint Patient presents with ??? Wound Care right lower leg Julien Ridley is a 57 y.o. male with chronic right lower extremity venous stasis ulcer located on the medial hind foot distal from the malleolus. His primary provider is in [place]. His blood sugars are now under control. He is working 4 hr a day. He states the wound is painful to touch. He continues to wear his compression stockings applying them in the morning and removing them at night. He denies any complaints with any other review of systems. Current Outpatient Prescriptions: ??? blood sugar diagnostic strips, Use to test blood glucose 4 times daily., Disp: , Rfl: ??? blood-glucose meter kit, Use to test blood glucose 4 times daily., Disp: , Rfl: ??? elastic bandage bandage, , Disp: , Rfl: 12 ??? gabapentin (for_NEURONTIN) 300 mg capsule, Take 300 mg by mouth 3 (three) times a day. , Disp: ,Rfl: ??? lancets 33 gauge misc, Use to [...] Allergen Reactions ??? Dimethicone-Petrolatum Rash ??? Horse [place] Rash ??? Mepilex Ag [Silver Sulfate-Foam Bandage] Rash ??? Silver Rash and Other (see comments) Past Medical History: Diagnosis Date ??? Hypertension Chronic 01/08/2014 Hypertension (HTN) Chronic ??? Hypertension Essential Primary 01/08/2014 Hypertension (HTN) Chronic ??? 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 Hypertension Venous Chronic With Ulcer And Inflammation Left ([facility]) 11/24/2009 Venous Stasis Ulcer with Inflammation ??? Infection Bacterial 06/17/2017 ??? Morbid Obesity Body Mass Index Greater Than Or Equal To 40 Adult ([facility]) 06/11/2015 Morbid Obesity Body Mass Index (BMI) >40 Adult ??? Varicose Vein Lower Extremity With Ulcer And Inflammation ([facility]) 11/24/2009 Venous Stasis Ulcer with Inflammation ??? Varicose Vein Lower Extremity With Ulcer And Inflammation Bilateral ([facility]) 02/21/2017 ??? 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 OTHER CONVERTED SHX (SEE COMMENT) N/A 10/24/2001 >Inversion stripping of the right greater saphenous vein. ??? OTHER CONVERTED SHX (SEE COMMENT) N/A 08/03/2001 >Left great saphenous vein stripping and varicose vein avulsion. ??? OTHER CONVERTED SHX (SEE COMMENT) N/A 06/01/2001 >Left fifth lumbar hemilaminectomy with left fifth lumbar-first sacral diskectomy. BP 122/78 (BP Location: Right arm, Patient Position: Sitting, Cuff Size: Large) Pulse 64 Temp 36.3 ??C (Temporal) Wt 130.2 kg BMI 40.50 kg/m?? PHYSICAL EXAMINATION: GENERAL: He is well groomed and in no acute distress SKIN: Left lower extremity has no wounds. Right lower extremity has the wound on the medial hind foot which measures 1 x 0.5 cm and 0.2 cm deep. The edges of the wound show epiboly. The wound base is 100% slough. There is no tunneling or undermining. There is no odor and drainage is scant serous. There is trace edema in the leg. There is new epithelialization and a scar where a wound was on his mid tibial shaft of the right leg. IMPRESSION/ REPORT/ PLAN Venous stasis ulcer/diabetic ulcer complicated by delayed healing. PROCEDURAL PAUSE Procedural pause conducted to verify: correct patient identity, procedure to be performed, and as applicable, correct side and site, correct patient position, and availability of implants, special equipment, or special requirements. The wound was cleansed with Hibiclens and saline and dried. Lidocaine jelly 2% was applied until topical anesthesia was obtained. The wound was debrided using a pickup where most of the slough was removed in the wound bed. The wound was then rinse with saline and dried. A Xeroform was neatly talked into the wound bed and covered with a Telfa island. A Telfa island was used to cover the new epithelialization on the mid tibial shaft area. He will change his dressing every day and return in 1 week for ongoing wound care. 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
--- OUTSIDE RECORDS SUMMARY | 2021-12-11 07:56 | XMS_ITS | Encounter Summary ---
:1960 Author Organization [facility] Address [address] [place] [address] Care Team Providers Name Role Phone Elsewhere, Pcp Primary Care Provider Unavailable Encounter Details Date Type Department Care Team Description 08/19/2017 Orders Only Department of [facility], Lory V., Hypertens ion Venous Community Internal BILINGUAL PATIENT SUPPORT CASEWORKER, C.N.P. Chronic With Ulcer And Medicine in [address] Inflammation Left (HCC) [place], [place] (Primary Dx) [address] [facility] [address] [place], [place] [phone] (Work) [phone] Social History Tobacco Use Types Packs/Day Years Used Date Smoking Tobacco: Never Smokeless Tobacco: Never Sex Assigned at Date Recorded Not on file documented as of this encounter Plan of Treatment Not on filedocumented as of this encounter Visit Diagnoses Diagnosis Hypertension Venous Chronic With Ulcer A nd Inflammation Left (HCC) - Primary documented in this encounter Care Teams Operations And Maintenance Technician Relationship Specialty Start Date End Date Elsewhere, Pcp PCP - General Family Medicine 06/15/17 documented as of this encounter
--- OUTSIDE RECORDS SUMMARY | 2021-12-11 07:56 | XMS_ITS | Encounter Summary ---
:1960 Author Organization [facility] Address [address] [place] [address] Care Team Providers Name Role Phone Elsewhere, Pcp Primary Care Provider Unavailable Reason for Visit Reason Onset Date Comments Outpatient COVID-19 Testing 06/14/2020 Encounter Details Date Type Department Care Team Description 06/14/2020 External Outreach Department of Family Hitesh Peña Contact With And Medicine, [facility] Koko Owens (Suspected) Exposure Building, in [address] COVID-19 (Primary [place], [place] Dx) [address] [facility] [address] [place], [place] [phone] (Work) [phone] Social History Tobacco Use Types Packs/Day Years Used Date Smoking Tobacco: Never Smokeless Tobacco: Never Sex Assigned at Date Recorded Not on file documented as of this encounter Progress Notes Roberta Allen R.N. - 06/14/2020 10:36 AM CST Encounter created for COVID-19 screening. T STRIPPER documented in this encounter Plan of Treatment Not on filedocumented as of this encounter Procedures Procedure Name Priority Date/Time Associated Diagnosis Comme nts SARS CORONAVIRUS-2 Routine 06/14/2020 11:54 AM Contact With An d Results for this RNA, V INGOT STRIPPER (Suspected) Exposure procedu re are in To COVID-19 the results section. documented in this encounter Results SARS Coronavirus-2 RNA, V Asymptomatic (06/14/2020 11:54 AM INGOT STRIPPER) [facility] Method Time Signature SARS-CoV-2 Swab, 06/15/2020 MKTO Specimen Nasopharynx 3:27 PM CDT Source SARS CoV-2 Undetected Undetected 06/15/2020 MKTO RNA, TMA 3:27 PM CDT Comment: SARS-CoV-2 RNA absent. This result does not rule out COVID-19 in the patient, as the sensitivity of the test depends o n the timing of the specimen collection and the quality of the specim en. Result should be correlated with patient's history and clinical presentat ion. ----ADDITIONAL INFORMATION---- This molecular amplification test was pe rformed using the Aptima SARS-CoV-2 assay ([employer] on the [employer] tem under emergency use authorization (EUA) by the U.S. Food and Drug Administ ration. Fact sheets for this EUA assay can be fo und at the following links: For Healthcare Providers: https://www.ET Water a.gov/media/168201/download For Patients: https://www.fda.gov/media/ 928219/download Specimen Anatomical Collection Method Collection Time Receive d Time (Source) Location / / Volume Laterality Varies 06/14/2020 11:54 06/15/2020 (Nasopharynx) AM INGOT STRIPPER 11:03 AM CDT Hitesh Peña D.O. LAB MICROBIOLOGY - GENERAL Jessica BORJAS Performing Organization Address City/State/ZIP Code Phon e Number [facility]- [address] [place] [address] [place] [address] [address] documented in this encounter Visit Diagnoses Diagnosis Contact With And (Suspected) Exposure To COVID-19 - Primary documented in this encounter Additional Health Concerns Infection Onset Date Last Indicated Resolved Time COVID19 Pending 06/14/2020 06/14/2020 06/15/2020 3:28 PM CDT documented as of this encounter Care Teams Clinical Nurse Occupational Medicine Relationship Specialty Start Date End Date Elsewhere, Pcp PCP - General Family Medicine 06/15/17 documented as of this encounter
--- OUTSIDE RECORDS SUMMARY | 2021-12-11 07:56 | XMS_ITS | Encounter Summary ---
:1960 Author Organization [facility] Address [address] [place] [address] Care Team Providers Name Role Phone Elsewhere, Pcp Primary Care Provider Unavailable Reason for Visit Reason Comments Swelling on upper face, started day and has worsened since then Fatigue Eye Drainage bilateral. Encounter Details Date Type Department Care Team Description 02/15/2021 Office Visit Department of Shawn Villeda Al lergy Status To Medicine, [facility], in [place], [address] [place] [address] Medicaments And [place], [place] Biological Substances [address] [address] (Primary Dx) RAJWINDER HESTER [phone] (Work) [phone] Social History Tobacco Use Types Packs/Day Years Used Date Smoking Tobacco: Never Smokeless Tobacco: Never Sex Assigned at Date Recorded Not on file documented as of this encounter Last Filed Vital Signs Vital Sign Reading Time Taken Comments Blood Pressure 123/69 02/15/2021 1:17 PM KENNEL OPERATOR Pulse 69 02/15/2021 1:17 PM KENNEL OPERATOR Temperature 36.7 ??C (98.1 ??F) 02/15/2021 1:17 PM KENNEL OPERATOR Respiratory Rate 14 02/15/2021 1:17 PM KENNEL OPERATOR Oxygen Saturation 95% 02/15/2021 1:17 PM KENNEL OPERATOR Inhaled Oxygen Concentration - - Weight 135 kg (298 lb 1 oz) 02/15/2021 1:17 PM KENNEL OPERATOR Height - - Body Mass Index 42.05 05/02/2017 12:50 PM KENNEL OPERATOR documented in this encounter Patient Instructions Patient InstructionsShawn Strickland M.D. - 02/15/2021 1:30 PM CST You are likely having an allergic reaction to an unknown substance. I am prescribing a 10 day courseof prednisone. In addition to the prednisone please take benadryl [address] or operate heavy machinery while taking the benadryl. Given your history of diabetes please monitor your blood sugar carefully as steroids (Prednisone) can increase blood sugar. For elevated blood sugars stop taking the prednisone and contact your primary care provider immediately. Please visit the Emergency Department for any new or worsening symptoms including vision changes (including double vision), loss of vision, loss of hearing, jaw pain, eye drainage, trouble breathing, trouble swallowing, excessive drool, or chest pain. Please visit for elevated blood sugar while on theprednisone. EL OPERATOR documented in this encounter Progress Notes Shawn Strickland M.D. - 02/15/2021 1:30 PM CST Images from the original note were not included. Same Day Clinic Visit SUBJECTIVE CHIEF COMPLAINT / REASON FOR VISIT / HISTORY OF PRESENT ILLNESS Mr. Julien Ridley is a 61 y.o. male who presents for upper facial burning pain and swelling since February 12. Patient reports he received COVID-19 booster on February 06. After that he experienced chills, dry cough, clear runny nose which ended Feb 12 at which point thefacial pain and swelling started. Patient reports b/l burning itchy facial pain around the eyes. Patient denies eye pain, vision changes, double vision, blurred vision, changes in hearing, or any foreign bodies having entered his eye. Patient also currently denies throat swelling, drooling, chest pain, SOB or trouble breathing, fever, chills, nausea, vomiting, and constipation. He reports he persistently has diarrhea as a side effect of metformin but nothing new. Patient reports he has been taking Tylenol and [place] Plus w/o any improvement in symptoms. Patient states he has had similar symptoms a year ago in the spring and was told by healthcare provider that it was related to pollen. He took Benadryl with some improvement at that time. Patient has h/o T2DM and reports he tries to keep hisblood sugar around 130. REVIEW OF SYSTEMS Please see HPI for details. PHYSICAL EXAM BP 123/69 (BP Location: Right arm, Patient Position: Sitting, Cuff Size: Large) Pulse 69 Temp 36.7 ??C (Temporal) Resp 14 Wt 135 kg SpO2 95% BMI 42.05 kg/m?? Body mass index is 42.05 kg/m??. GENERAL: Patient is alert and in no acute distress. HEENT: - Upper face appears mildly swollen and puffy bilaterally. Patient reports it feels itchy. Face is not directly tender to palpation. - Eyes equal, round, reactive to light and accommodation. Ophthalmoscope exam negative for any grossly visible foreign bodies. - Ear canals are normal bilaterally without erythema or edema, TMs are pearly vega and intact without erythema. - Nasal cavity normal bilaterally without erythema or exudate. - Posterior oropharynx is nonerythematous, no inflammation or exudate. No oral sores seen. NECK: Supple, no lymphadenopathy. No neck swelling. RESPIRATORY: Normal rate and effort. Lung sounds are clear to auscultation throughout. CARDIOVASCULAR: S1 & S2 are present, normal rate and rhythm. ABDOMEN: Soft, non-tender, obese abdomen. NEURO: Cranial nerves 2-12 intact. Patient has equal b/l facial sensation to light touch and pinprick. SKIN: No other findings of redness, swelling or rash anywhere else on his skin. ASSESSMENT/PLAN: #1 Allergy Status To Unspecified Drugs Medicaments And Biological Substances Other orders - predniSONE (DELTASONE) 20 mg tablet; Take 1 tablet (20 mg total) by mouth daily for 10 days., Starting 02/15/2021, Until Tue02/25/2021, Normal Mr. Ridley is likely having a mild allergic reaction to an unknown substance. I do not think heis having a reaction to the COVID-19 booster at this time. However, I informed him to contact the number given to him when he received his booster and to report his current symptoms. He does not have any concerning signs such as eye pain, vision changes, or airway changes (swollen epiglottis, swollen airway, excessive secretions and/or drooling, SOB) or chest pain. He also does not have any sores in his oral cavity that could be causing his symptoms. I am prescribing him a 10 day course of prednisone 20 mg PO daily as well as OTC Benadryl 25 mg daily. The patient has a h/o T2DM and prednisone can increase blood sugar. Despite the risk of increasinghis blood sugar I believe with careful monitoring prednisone will be safe for him. I instructed him to monitor his blood glucose closely at least twice a day and to stop taking the prednisone if he hasan elevated blood sugar (> 160). I also instructed not to drive or operate heavy machinery while taking the Benadryl. I also instructed him to visit the ED for any new or worsening symptoms including vision changes (including double vision), loss of vision, loss of hearing, jaw pain, eye drainage, trouble breathing, trouble swallowing, excessive drooling, or chest pain. He stated his understandingwas in agreement. This visit was conducted in German and the patient expressed full understanding. There were no further questions, concerns, or barriers to learning. Anticipatory guidance was provided. Patient was instructed to follow up with primary care physician with any questions, concerns and/or for ongoing or worsening symptoms. Heladio Strickland M.D. [facility] 02/15/21 EL OPERATOR documented in this encounter Plan of Treatment Not on filedocumented as of this encounter Visit Diagnoses Diagnosis Allergy Status To Unspecified Drugs Medi caments And Biological Substances - Primary documented in this encounter Care Teams Buggy Driver Relationship Specialty Start Date End Date Elsewhere, Pcp PCP - General Family Medicine 06/15/17 documented as of this encounter
--- OUTSIDE RECORDS SUMMARY | 2021-12-11 07:56 | XMS_ITS | Encounter Summary ---
:1960 Author Organization [facility] Address [address] [place] [address] Care Team Providers Name Role Phone Elsewhere, Pcp Primary Care Provider Unavailable Reason for Visit Reason Comments Wound Care left ankle- drainage started on Tuesday night. (Shaking, diarrhea, nausea) 07/08/18 Appointment Request (Routine) - Closed Specialty Diagnoses / Procedures Referred By Contact Refer red To Contact [facility] Referral ID Status Reason Start Date Expiration Date Visits Requ ested Visits Authorized [id number] Closed 07/10/2018 07/10/2019 1 1 Encounter Details Date Type Department Care Team Description 07/11/2018 Office Visit Department of Lory Sousa Varicose Vein Lower Extremity With Ulcer And Inflammation Left (HCC) (Primary Dx); [facility]., WHOLESALE ACCOUNT MANAGER, C.N .P. Infection Bacterial Medicine in [address] [address] [place], [place] [phone] (Work) [phone] Social History Tobacco Use Types Packs/Day Years Used Date Smoking Tobacco: Never Smokeless Tobacco: Never Sex Assigned at Date Recorded Not on file documented as of this encounter Last Filed Vital Signs Vital Sign Reading Time Taken Comments Blood Pressure 127/78 07/11/2018 10:03 AM CDT Pulse 90 07/11/2018 10:03 AM CDT Temperature 36.8 ??C (98.2 ??F) 07/11/2018 10:03 AM CDT Respiratory Rate 20 07/11/2018 10:03 AM CDT Oxygen Saturation - - Inhaled Oxygen Concentration - - Weight 132 kg (290 lb 2 oz) 07/11/2018 10:03 AM CDT Height - - Body Mass Index 40.93 05/02/2017 12:50 PM AUTOMOBILE BODY REPAIR CHIEF documented in this encounter Patient Instructions Patient InstructionsDuLory villanueva APRN, C.N.Hua. - 07/11/2018 10:00 AM CDT Go directly to the [facility] I will call ahead to let them know your coming documented in this encounter Progress Notes Lory Sousa APRN, C.N.Hua. - 07/11/2018 10:00 AM CDT Chief Complaint Patient presents with ??? Wound Care left ankle- drainage started on Tuesday night. (Shaking, diarrhea, nausea) 07/08/18 Julien Ridley is a 58 y.o. male with history of diabetes mellitus type 2. He had a chronic wound on his left lower leg which healed. He states on Tuesday the area opened up with drainage. He had fevers chills headaches and had nausea and vomiting with diarrhea. This started after the wound started draining. He presents today with alarge amount of edema erythema warmth and red streaking from his foot to who his inner thigh. He states he feels ???lousy ???. He doctors with Dr. Tiny [facility] at [facility]. He did not take his blood sugar today. He states up until Tuesday the wound was healed. He states he actually has been running and jumping. Current Outpatient Prescriptions: ??? gabapentin (for_NEURONTIN) 300 mg capsule, Take 300 mg by mouth 3 (three) times a day. , Disp: ,Rfl: ??? metFORMIN XR (GLUCOPHAGE-XR) 500 mg 24 hr tablet, Take 1,000 mg by mouth., Disp: , Rfl: ??? oxyCODONE (ROXICODONE) 5 mg immediate release tablet, Take 5-10 mg by mouth., Disp: , Rfl: ??? torsemide (DEMADEX) 5 mg tablet, 10 mg. , Disp: , Rfl: ??? blood sugar diagnostic strips, Use to test blood glucose 4 times daily., Disp: , Rfl: ??? blood-glucose meter kit, Use to test blood glucose 4 times daily., Disp: , Rfl: ??? elastic bandage bandage, , Disp: , Rfl: 12 ??? ibuprofen (ADVIL,MOTRIN) 200 mg capsule, Take 200 mg by mouth every 6 (six) hours as needed for pain., Disp: , Rfl: ??? lancets 33 gauge misc, Use to test blood glucose 4 times daily., Disp: , Rfl: ??? PETROLATUM GAUZE bandage, , Disp: , Rfl: 20 ??? potassium chloride (KLOR-CON SPRINKLE) 10 mEq ER sprinkle capsule, , Disp: , Rfl: ??? traMADol (ULTRAM) 50 mg tablet, , Disp: , Rfl: 0 ??? zinc oxide 20 % ointment, , Disp: , Rfl: 12 Allergies Allergen Reactions ??? Dimethicone-Petrolatum Rash ??? Horse [place] Rash ??? Mepilex Ag [Silver Sulfate-Foam Bandage] [...] hemilaminectomy with left fifth lumbar-first sacral diskectomy. Social History Social History ??? Marital status: Spouse name: N/A ??? Number of children: N/A ??? Years of education: N/A Occupational History ??? Not on file. Social History Main Topics ??? Smoking status: Never Smoker ??? Smokeless tobacco: Never Used ??? Alcohol use Not on file ??? Drug use: Unknown ??? Sexual activity: Not on file Other Topics Concern ??? Not on file Social History Narrative ??? No narrative on file BP 127/78 (BP Location: Left arm, Patient Position: Sitting, Cuff Size: Regular) Pulse 90 Temp 36.8 ??C (Temporal) Resp 20 Wt 131.6 kg BMI 40.93 kg/m?? PHYSICAL EXAMINATION General: He is well groomed and appears ill Skin: The wound on his left lower leg measures 6.5 x 6. It within this area he has several open wounds which are draining clear serous fluid. There is edema in most of the lower leg. There is erythema and warmth starting from his foot up through his inner thigh. His large varicosities seen in the leg. ASSESSMENT/PLAN Left leg cellulitis. The wound was cleansed with saline dried and a sterile 4 x 4 gauze was applied held with a rolled gauze. He I am sending him to the hospital of his choice which is [facility]. I called and spoke with the ER physician to give report. He will drive himself by private car from our clinic to the [facility]. He is stable. He will need IV treatment for the cellulitis. documented in this encounter Plan of Treatment Not on filedocumented as of this encounter Visit Diagnoses Diagnosis Varicose Vein Lower Extremity With Ulcer And Inflammation Left (HCC) - Primary Infection Bacterial documented in this encounter Care Teams Estate Tax Examiner Relationship Specialty Start Date End Date Elsewhere, Pcp PCP - General Family Medicine 06/15/17 documented as of this encounter
--- OUTSIDE RECORDS SUMMARY | 2021-12-11 07:56 | XMS_ITS | Encounter Summary ---
:1960 Author Organization [facility] Address [address] [place] [address] Care Team Providers Name Role Phone Elsewhere, Pcp Primary Care Provider Unavailable Encounter Details Date Type Department Care Team Description 10/19/2017 Abstract [facility] RAJWINDER Perales ea Provider, Historical [address] [place] [address] Social History Tobacco Use Types Packs/Day Years Used Date Smoking Tobacco: Never Smokeless Tobacco: Never Sex Assigned at Date Recorded Not on file documented as of this encounter Plan of Treatment Not on filedocumented as of this encounter Visit Diagnoses Not on filedocumented in this encounter Care Teams Retail Salesman Relationship Specialty Start Date End Date Elsewhere, Pcp PCP - General Family Medicine 06/15/17 documented as of this encounter
--- OUTSIDE RECORDS SUMMARY | 2021-12-11 07:56 | XMS_ITS | Encounter Summary ---
:1960 Author Organization [facility] Address [address] [place] [address] Care Team Providers Name Role Phone Elsewhere, Pcp Primary Care Provider Unavailable Encounter Details Date Type Department Care Team Description 09/09/2017 Clinical Communication Department of [facility], [facility] Medicine, [facility], in [place], [place] [address] [facility] [place] [address] [facility] [phone] Social History Tobacco Use Types Packs/Day Years Used Date Smoking Tobacco: Never Smokeless Tobacco: Never Sex Assigned at Date Recorded Not on file documented as of this encounter Miscellaneous Notes Telephone Encounter - Gisselle Acharya L.P.N. - 09/13/2017 9:54 AM CDT Attempt to contact patient on mobile phone- no answer. Left message to return call to clinic. Telephone Encounter - Gisselle Acharya L.P.N. - 09/12/2017 1:41 PM CDT Attempt to contact patient mobile number- no answer. Left message to return call to clinic. Telephone Encounter - Gisselle Acharya L.P.N. - 09/12/2017 11:39 AM CDT Attempt to contact patient. No answer. Left message to return call to clinic. Telephone Encounter - Lory Sousa APRN, C.NLu. - 09/12/2017 11:30 AM CDT Please contact to let him know that I put in a referral for [facility] wound care. Telephone Encounter - Jesi Lima - 09/09/2017 3:51 PM CDT Requesting call back As wound is not getting better. Seen by Hua Sousa on 08/24 and has another appt scheduled for 09/21. documented in this encounter Plan of Treatment Not on filedocumented as of this encounter Visit Diagnoses Not on filedocumented in this encounter Care Teams Center Sales And Service Associate Relationship Specialty Start Date End Date Elsewhere, Pcp PCP - General Family Medicine 06/15/17 documented as of this encounter
--- OUTSIDE RECORDS SUMMARY | 2021-12-11 07:56 | XMS_ITS | Encounter Summary ---
:1960 Author Organization [facility] Address [address] [place] [address] Care Team Providers Name Role Phone Elsewhere, Pcp Primary Care Provider Unavailable Encounter Details Date Type Department Care Team Description 09/19/2017 Nurse Triage Department of [facility] Dunia Rodríguez [facility], [facility], R.N. in [place], [place] [address] [place] [address] RAJWINDER [place] [phone] RAJWINDER STARK [address] [phone] Social History Tobacco Use Types Packs/Day Years Used Date Smoking Tobacco: Never Smokeless Tobacco: Never Sex Assigned at Date Recorded Not on file documented as of this encounter Plan of Treatment Not on filedocumented as of this encounter Visit Diagnoses Not on filedocumented in this encounter Care Teams Power Plant Installer Relationship Specialty Start Date End Date Elsewhere, Pcp PCP - General Family Medicine 06/15/17 documented as of this encounter
--- OUTSIDE RECORDS SUMMARY | 2021-12-11 07:56 | XMS_ITS | Encounter Summary ---
:1960 Author Organization [facility] Address [address] [place] [address] Care Team Providers Name Role Phone Elsewhere, Pcp Primary Care Provider Unavailable Reason for Referral Outpatient (Routine) - Authorized Specialty Diagnoses / Procedures Referred By Contact Refer red To Contact Allergy and Immunology Diagnoses Rash Face [facility] [address] [place] [address] Referral ID Status Reason Start Date Expiration Date Visits V isits Requested Authorized [id number] Authorized 04/17/2021 04/17/2022 1 1 R POLLUTION CONTROL INSPECTOR Reason for Visit Reason Comments Other facial swelling and redness, itching Appointment Request (Routine) - Closed Specialty Diagnoses / Procedures Referred By Contact Refer red To Contact Family Medicine Referral ID Status Reason Start Date Expiration Date Visits Requ ested Visits Authorized [id number] Closed 04/17/2021 04/17/2022 1 1 Encounter Details Date Type Department Care Team Description 04/17/2021 Office Visit Department of Maicol Prather Ras h Face (Primary Dx) Medicine, [place] [facility], in [place], [address] [place], [place] [address] [place], [place] [phone] (Work) [phone] Social History Tobacco Use Types Packs/Day Years Used Date Smoking Tobacco: Never Smokeless Tobacco: Never Sex Assigned at Date Recorded Not on file documented as of this encounter Last Filed Vital Signs Vital Sign Reading Time Taken Comments Blood Pressure 160/85 04/17/2021 1:03 PM WATER POLLUTION CONTROL INSPECTOR Pulse 74 04/17/2021 1:03 PM WATER POLLUTION CONTROL INSPECTOR Temperature 36.4 ??C (97.5 ??F) 04/17/2021 1:03 PM WATER POLLUTION CONTROL INSPECTOR Respiratory Rate - - Oxygen Saturation - - Inhaled Oxygen Concentration - - Weight 138 kg (304 lb 3.8 oz) 04/17/2021 1:03 PM WATER POLLUTION CONTROL INSPECTOR Height 178 cm (5' 10.08) 04/17/2021 1:03 PM WATER POLLUTION CONTROL INSPECTOR Body Mass Index 43.55 04/17/2021 1:03 PM WATER POLLUTION CONTROL INSPECTOR documented in this encounter Progress Notes Maicol Pulido M.D. - 04/17/2021 1:00 PM CST SUBJECTIVE CHIEF COMPLAINT/REASON FOR VISIT Julien Ridley is a 61 y.o. male that presents with rash over the face. This is somewhat itchy and also burning. He had an identical rash about 2 months ago and the only treatment that seem tohelp was a course of steroids. This resolved fully until the last few days when this has come back again. He cannot think of any new exposures that may be causing this. They do have a dog at home but had this is not new, they have had him for about 10 years. CURRENT MEDICATIONS Current Outpatient Medications: ??? acetaminophen (TYLENOL) 325 mg tablet, Take 975 mg by mouth., Disp: , Rfl: ??? elastic bandage bandage, , Disp: , Rfl: 12 ??? FreeStyle João 14 Day [place] misc, , Disp: , Rfl: ??? FreeStyle João 14 Day Sensor kit, , Disp: , Rfl: ??? metFORMIN XR (GLUCOPHAGE-XR) 500 mg 24 hr tablet, Take 1,000 mg by mouth., Disp: , Rfl: ??? tadalafiL (CIALIS, ADCIRCA) 20 mg tablet, tadalafil 20 mg tablet, Disp: , Rfl: ??? torsemide (DEMADEX) 5 mg tablet, 10 mg. , Disp: , Rfl: ??? blood-glucose meter kit, Use to test blood glucose 4 times daily., Disp: , Rfl: ??? predniSONE (DELTASONE) 20 mg tablet, Take 1 tablet (20 mg total) by mouth daily for 10 days., Disp: 10 tablet, Rfl: 0 ??? zinc oxide 20 % ointment, , Disp: , Rfl: 12 ALLERGIES/CONTRAINDICATIONS Allergies Allergen Reactions ??? Dimethicone-Petrolatum Rash ??? Horse [place] Rash ??? Mepilex Ag [Silver Sulfate-Foam Bandage] Rash ??? Silver Rash and Other (see comments) OBJECTIVE Vitals: 04/17/21 1303 BP: 160/85 Pulse: 74 Temp: 36.4 ??C PHYSICAL EXAMINATION General Appearance: No acute distress. HEENT: Diffuse erythema over the forehead and cheeks with mild swelling and warmth throughout the area. No obvious breaks in skin or other indications of possible infection per se. Oropharynx is clear.Neck negative for masses or nodes of significance Chest: Breathing easily without accessory muscle use or cough. .ASSESSMENT / PLAN Confluent rash involving the forehead and cheeks as above, suspicious for a known exposure. Prednisone is prescribed 20 mg daily times 10 days. Conservative measures are reviewed. He is advised to seekfollow-up with Allergy. All questions are discussed and answered. Patient voices good understanding and agreement with our plan. Follow-up with primary care if not improving as expected or otherwise asneeded. R POLLUTION CONTROL INSPECTOR documented in this encounter Plan of Treatment Scheduled Referrals Name Type Priority Associated Order Schedule Diagnoses Allergy and Outpatient Referral Routine Rash Face Expected : Immunology - 04/17/2021 Urticaria angioedema (Approx imate), consult (clinic) Expires: 07/16/2022 documented as of this encounter Visit Diagnoses Diagnosis Rash Face - Primary documented in this encounter Care Teams Director Clinical Pharmacology Relationship Specialty Start Date End Date Elsewhere, Pcp PCP - General Family Medicine 06/15/17 documented as of this encounter
--- OUTSIDE RECORDS SUMMARY | 2021-12-11 07:56 | XMS_ITS | Encounter Summary ---
:1960 Author Organization [facility] Address [address] [place] [address] Care Team Providers Name Role Phone Elsewhere, Pcp Primary Care Provider Unavailable Reason for Visit Reason Comments Wound Care right lower leg Appointment Request (Routine) - Closed Specialty Diagnoses / Procedures Referred By Contact Refer red To Contact Community Internal Diagnoses [facility] EST [facility] Medicine Procedures [facility] EST Referral ID Status Reason Start Date Expiration Date Visits Requ ested Visits Authorized [id number] Closed 11/02/2017 11/02/2018 1 1 Encounter Details Date Type Department Care Team Description 11/09/2017 Office Visit Department of Internal Lory Sousa Venous Medicine in Shahana Hector, ZOE, C.N.P. Hypertension Idiopathic [place] [address] With Ulcer And [address] [place], [place] Inflammation Of Right [place] [address] Lower Extremity (HCC) [id number] (Primary Dx) Social History Tobacco Use Types Packs/Day Years Used Date Smoking Tobacco: Never Smokeless Tobacco: Never Sex Assigned at Date Recorded Not on file documented as of this encounter Last Filed Vital Signs Vital Sign Reading Time Taken Comments Blood Pressure 136/88 11/09/2017 9:53 AM CDT Pulse 60 11/09/2017 9:53 AM CDT Temperature 36.4 ??C (97.5 ??F) 11/09/2017 9:53 AM CDT Respiratory Rate 18 11/09/2017 9:53 AM CDT Oxygen Saturation - - Inhaled Oxygen Concentration - - Weight 135 kg (296 lb 8.3 oz) 11/09/2017 9:53 AM CDT Height - - Body Mass Index 41.84 05/02/2017 12:50 PM CONTRACT ENGINEER documented in this encounter Patient Instructions Patient InstructionsLory Sousa APRN, C.NLu. - 11/09/2017 10:00 AM CDT Continue current wound care and return 1 week documented in this encounter Progress Notes Lory Sousa APRN, C.NJordan - 11/09/2017 10:00 AM CDT Chief Complaint Patient presents with ??? Wound Care right lower leg Julien Ridley is a 57 y.o. male with chronic left lower extremity venous stasis ulcers complicated by delayed healing and diabetes mellitus type 2. He states he has had more swelling in his legs. His wounds are improving but his back pain is worsening. He is taking more Advil because of the back pain. His primary provider is in [place] and he has an appointment with her on November 25. He is currently working 4 hr a day at [employer]. He denies any headaches fevers chills night sweats. Denies any cardiac complaints including chest pain palpitations or angina. Denies any respiratory complaints, abdominal complaints or complaints. He does have back pain. He states he has less pain in the wound beds. Current Outpatient Prescriptions: ??? blood sugar diagnostic [...] Allergen Reactions ??? Dimethicone-Petrolatum Rash ??? Horse [place] Rash ??? Mepilex Ag [Silver Sulfate-Foam Bandage] [...] Than Or Equal To 40 Adult ([facility]) 06/11/2015 Morbid Obesity Body Mass Index (BMI) [...] with left fifth lumbar-first sacral diskectomy. BP 136/88 (BP Location: Right arm, Patient Position: Sitting, Cuff Size: Regular) Pulse 60 Temp 36.4 ??C (Temporal) Resp 18 Wt 134.5 kg BMI 41.84 kg/m?? PHYSICAL EXAMINATION: GENERAL: He is well groomed in no acute distress SKIN: The left inner medial leg has 2 wounds the proximal wound measures 0.5 x 0.2 in his superficial the malleolar area wound measures 0.5 cm x 0.5 cm and 0.1 deep. The wound beds are pink. There is some slough on the lower wound bed. There is no tunneling undermining, or drainage. IMPRESSION/ REPORT/ PLAN Left lower extremity venous stasis ulcers complicated by delayed healing diabetes mellitus type 2. The wounds were cleansed with saline and Hibiclens rinse well and dried. Lidocaine jelly 2% was applied for topical anesthesia. The wounds were debrided with a pickup to remove some slough. Minor bleeding occurred which was self- limiting. The wounds were rinse with saline and dried. A Xeroform was applied into the wound beds. This is the only dressing that he can tolerate. Sterile2 by 2s were used to cover the wounds and held in place by a rolled wrap. He will do daily dressing changes at home and return 1 week for ongoing wound care. His compression was reapplied and he will continue to apply the compression in on in the morning off at night. documented in this encounter Plan of Treatment Not on filedocumented as of this encounter Visit Diagnoses Diagnosis Chronic Venous Hypertension Idiopathic W ith Ulcer And Inflammation Of Right Lower Extremity (HCC) - Primary documented in this encounter Care Teams Mortician Supplies Sales Representative Relationship Specialty Start Date End Date Elsewhere, Pcp PCP - General Family Medicine 06/15/17 documented as of this encounter
--- OUTSIDE RECORDS SUMMARY | 2021-12-11 07:56 | XMS_ITS | Encounter Summary ---
:1960 Author Organization [facility] Address [address] [place] [address] Care Team Providers Name Role Phone Elsewhere, Pcp Primary Care Provider Unavailable Reason for Visit Reason Comments Cellulitis Encounter Details Date Type Department Care Team Description 09/19/2017 - Emergency [facility] Cellulitis Of Right 09/20/[address] Lower Limb (Primary Dx) [place]JWINDER HECT[place] [id number] Critical access hospital [phone] Social History Tobacco Use Types Packs/Day Years [...] as of this encounter Visit Diagnoses Diagnosis Cellulitis Of Right Lower Limb - Primary documented in this encounter Care Teams Office Clerk Routine Relationship Specialty Start Date End Date Elsewhere, Pcp PCP - General Family Medicine 06/15/17 documented as of this encounter
--- OUTSIDE RECORDS SUMMARY | 2021-12-11 07:56 | XMS_ITS | Encounter Summary ---
:1960 Author Organization [facility] Address [address] [place] [address] Care Team Providers Name Role Phone Elsewhere, Pcp Primary Care Provider Unavailable Reason for Visit Reason Comments Wound Care per [facility]-cell ulitis right lower leg, Left lower leg improved. Appointment Request (Routine) - Closed Specialty Diagnoses / Procedures Referred By Contact Refer red To Contact Community Internal Diagnoses [facility] Medicine Procedures [facility] Referral ID Status Reason Start Date Expiration Date Visits Requ ested Visits Authorized [id number] Closed 09/29/2017 09/29/2018 1 1 Encounter Details Date Type Department Care Team Description 10/04/2017 Office Visit Department of Sil Burks APRN, C.N.P. [address] [facility] [place] [phone] Lymphedema (Primary Dx); Community Internal Lory Sousa APRN, C.N.P. [address] [place] [address] Varicose Vein Lower Extremity With Ulcer And Inflammation Left (HCC); Medicine in Chronic Venous Hypertension Idiopathic With Ulcer And Inflammation Of Right Lower Extremity (HCC); [place], [place] Diabetes Mellitus Type 2 (HC C); [address] [facility] [place] [address] Social History Tobacco Use Types Packs/Day Years Used Date Smoking Tobacco: Never Smokeless Tobacco: Never Sex Assigned at Date Recorded Not on file documented as of this encounter Last Filed Vital Signs Vital Sign Reading Time Taken Comments Blood Pressure 137/84 10/04/2017 8:14 AM CDT Pulse 89 10/04/2017 8:10 AM CDT Temperature 36.2 ??C (97.2 ??F) 10/04/2017 8:10 AM CDT Respiratory Rate 18 10/04/2017 8:10 AM CDT Oxygen Saturation - - Inhaled Oxygen Concentration - - Weight 130 kg (287 lb 4.2 oz) 10/04/2017 8:10 AM CDT Height - - Body Mass Index 40.53 05/02/2017 12:50 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 - 10/04/2017 8:15 AM CDT Continue dressing changes at home and see Tawana Matthews on documented in this encounter Progress Notes Lory Sousa APRN, C.N.P. - 10/04/2017 8:15 AM CDT Chief Complaint Patient presents with ??? Wound Care per [facility]-cellulitis right lower leg, Left lower leg improved. Julien Ridley is a 57 y.o. male with a long-term history of a chronic left lower extremity venous stasis ulcer. He was hospitalized in the [facility] for diabetes mellitus type 2. He states while he was in the hospital the little was done for his wounds. He was due to see me when he was discharged from the hospital. He saw his primary provider Dr. Peña in [place] a few days later. Dr. Peña put him in the [facility] for bilateral lower extremity cellulitis. He ended up having large open wounds on his right leg also. He is currently on 2 antibiotics for cellulitis. He is here today for wound care. His and his son are accompanying him today. I last saw Tank several weeks ago before he went fishing. He is allergic to most products and is only able to tolerate Vaseline gauze is on his wounds. Current Outpatient Prescriptions: ??? blood sugar diagnostic [...] 5 mg tablet, , Disp: , Rfl: Allergies Allergen Reactions ??? Dimethicone-Petrolatum Rash ??? Horse [place] Rash ??? Mepilex Ag [Silver Sulfate-Foam Bandage] [...] with left fifth lumbar-first sacral diskectomy. BP 137/84 (BP Location: Left arm, Patient Position: Sitting, Cuff Size: Large) Pulse 89 Temp 36.2 ??C (Temporal) Resp 18 Wt 130.3 kg BMI 40.53 kg/m?? PHYSICAL EXAMINATION: GENERAL: He is well groomed in no acute distress SKIN: Right lower extremity shows 1+ edema with erythema. He has 3 wounds on the right leg the 1st wound measures 2 cm x 1 cm x 0.1 deep 2nd wound is adjacent measuring 1 x 0.3 x 0.1 deep. He has a wound on his foot which measures 1 cm x 1 cm 0.2 deep. The wound beds are showing slough with some excoriation on the edges from being wet. The left leg has an area on the inner malleolus measuring 7.5 x 5 with scattered wounds within this area all the wounds are 0.1 deep. There is some granulation noted no tunneling undermining odor. Drainage is moderate serous. IMPRESSION/ REPORT/ PLAN Bilateral lower extremity venous stasis ulcers complicated by history of delayed healing and infection. The wounds were cleansed with saline and PCM X rinsed well with saline and dried. Vaseline gauze was cut to fit over the wounds. Wounds were covered with sterile gauze. Multilayer wrap was done by using cotton batting to secure the dressings in place. Rolled gauze was then used to secure the cotton batting in place. A knee high edema flow stocking was applied with a tubigrips. He will be seen in [place] on for wound care by Tawana Espinosa NP. He will keep his follow-up appointments specially with a kristal Bernabe. He will return as needed. documented in this encounter Plan of Treatment Not on filedocumented as of this encounter Visit Diagnoses Diagnosis Lymphedema - Primary Varicose Vein Lower Extremity With Ulcer And Inflammation Left (HCC) Chronic Venous Hypertension Idiopathic W ith Ulcer And Inflammation Of Right Lower Extremity (HCC) Diabetes Mellitus Type 2 (HCC) Infection Bacterial documented in this encounter Care Teams Chemical Strength Tester Relationship Specialty Start Date End Date Elsewhere, Pcp PCP - General Family Medicine 06/15/17 documented as of this encounter
--- OUTSIDE RECORDS SUMMARY | 2021-12-11 07:56 | XMS_ITS | Clinical Summary ---
:1960 Author Organization [facility] Address [address] [place] [address] Care Team Providers Name Role Phone Elsewhere, Pcp Primary Care Provider Unavailable Source Comments Patient records contain information from all sites at [facility]. For routine questions regarding patient records, call [phone] during business hours, M-F 8:00 AM - 5:00 PM Central Time. Record requests for emergency care only can be directed to [phone] at any time.[facility] Allergies Active Allergy Reactions Severity Noted Date Comments Dimethicone-Petrolatum Rash 02/01/2014 Horse [place] Rash 07/16/2016 Silver Sulfate-Foam Bandage Rash 02/01/2014 Silver Rash, Other (see comments) 02/08/2014 Medications Medication Sig Dispensed Refills Start Date End Date Status blood-glucose meter Use to test blood 0 09/22/2017 Active kit glucose 4 times daily. metFORMIN XR Take 1,000 mg by 0 09/23/2017 Active (GLUCOPHAGE-XR) 500 mg mouth. 24 hr tablet torsemide (DEMADEX) 5 10 mg. 0 09/29/2017 Active mg tablet zinc oxide 20 % 12 10/03/2017 Act radha ointment elastic bandage 12 10/03/2017 Act radha bandage acetaminophen Take 975 mg by 0 11/07/2019 Active (TYLENOL) 325 mg mouth. tablet FreeStyle João 14 Day 0 02/17/2021 Active [place] misc FreeStyle João 14 Day 0 02/18/2021 Active Sensor kit tadalafiL (CIALIS, tadalafil 20 mg 0 Active ADCIRCA) 20 mg tablet tablet Active Problems Patient Care Coordination Note Formatting of this note might be differe nt from the original. Release of Information (Family and Frien ds) spouse: Nicki Ridley Problem Noted Date Chronic Venous Hypertension Idiopathic With Ulcer And Inflammation Of 10/04/2017 Right Lower Extremity Lymphedema 09/19/2017 Diabetes Mellitus Type 2 09/19/2017 Infection Bacterial 06/17/2017 Stasis Ulcer Varicose Vein Right 02/21/2017 Lesion Skin Leg 09/03/2015 Stasis Ulcer With Varicose Vein Left 08/01/2015 Varicose Vein Lower Extremity With Ulcer And Inflammat ion Left 08/01/2015 Swelling Leg 07/04/2015 Ulcer of ankle 06/18/2015 Overview: Ulcer Ankle R Overview: Overview: Ulcer Ankle R Edema Leg Chronic 06/18/2015 Morbid obesity 06/11/2015 Overview: Morbid Obesity Body Mass Index (BMI) >40 Adult Overview: Overview: Morbid Obesity Body Mass Index (BMI) >40 Adult Insufficiency Venous Peripheral 06/11/2015 Allergy Unspecified Initial 01/25/2014 Overview: Diagnosis Maintenance Update Hypertension Essential Primary 01/08/2014 Overview: Hypertension (HTN) Chronic Overview: Overview: Hypertension (HTN) Chronic Cellulitis Leg Left 12/26/2013 Cellulitis Leg Right 12/26/2013 Insufficiency Venous 03/16/2010 Hypertension Venous Chronic 11/24/2009 Overview: Venous Stasis Ulcer with Inflammation Overview: Overview: Venous Stasis Ulcer with Inflammation Eczema 04/24/2008 Varicose Vein Lower Extremity With Inflammation 2008 Herniated Disc Lumbar 06/30/2001 Resolved Problems Problem Noted Date Resolved Date Hypertension Venous Chronic With Ulcer And Inflammation 12/201508/19/2017 Bilateral Overview: Hypertension(HTN)Venous Chronic W Ulcer And Inflammation Dionte Immunizations Name Administration Dates Next Due Influenza Split 01/28/2014 Influenza Whole 01/22/2015 Influenza, Injectable, Mdck, Preservative Free, 01/23/2016 Quadrivalent PPSV23 05/15/2018 SARS-COV-2 (COVID-19) - MODERNA 07/10/2020, 06/12/2020 Tdap 09/26/2017 influenza vaccine quad (FLUZONE/FLUARIX) (6 months 9 and older)(PF) Family History Medical History Relation Name Comments Parkinsons disease Father Relation Name Status Comments Father Social History Tobacco Use Types Packs/Day Years Used Date Smoking Tobacco: Never Smokeless Tobacco: Never Sex Assigned at Date Recorded Not on file Last Filed Vital Signs Vital Sign Reading Time Taken Comments Blood Pressure 160/85 04/17/2021 1:03 PM OPERATIONS INSPECTOR Pulse 74 04/17/2021 1:03 PM OPERATIONS INSPECTOR Temperature 36.4 ??C (97.5 ??F) 04/17/2021 1:03 PM OPERATIONS INSPECTOR Respiratory Rate 14 02/15/2021 1:17 PM OPERATIONS INSPECTOR Oxygen Saturation 95% 02/15/2021 1:17 PM OPERATIONS INSPECTOR Inhaled Oxygen Concentration - - Weight 138 kg (304 lb 3.8 oz) 04/17/2021 1:03 PM OPERATIONS INSPECTOR Height 178 cm (5' 10.08) 04/17/2021 1:03 PM OPERATIONS INSPECTOR Body Mass Index 43.55 04/17/2021 1:03 PM OPERATIONS INSPECTOR Plan of Treatment Health Maintenance Due Date Last Done Comments CT Colonography 1960 Cologuard 1960 Colonoscopy 1960 Colorectal Cancer Screening 1960 Diabetic Office Visit with Foot 1960 Exam Dilated Eye Exam 1960 FIT 1960 HIV Screening 1960 Hepatitis C Screening 1960 Urine Albumin 1960 Zoster Vaccines (1 of 2) 2011 Hemoglobin A1C 07/09/2014 01/08/2014 Lipid (Cholesterol) Screening 01/08/2015 01/08/2014 Creatinine Level 11/06/2020 11/07/2019, 09/21/2017, 09/20/2017, Additional history exists Potassium Level 11/06/2020 11/07/2019, 09/21/2017, 09/20/2017, Additional history exists Sodium Level 11/06/2020 11/07/2019, 09/21/2017, 09/20/2017, Additional history exists Hepatitis B Vaccines (1 of 3 - 2021 Risk 3-dose series) Depression Screening (Annual 04/04/2021 PHQ-2) COVID-19 Vaccine (4 - Booster for 06/06/2021 02/06/2021, , Moderna series) 06/12/2020 Office Visit for Blood Pressure 07/16/2021 04/17/2021 Check / Re-check Influenza Vaccine (#1) 2022 01/15/2021, 05/15/2018, 01/23/2016, Additional history exists Pneumococcal vaccine (0-64 years) 2026 01/15/2021, (3 - PPSV23 or PCV20) DTaP,Tdap,and Td Vaccines (2 - Td 09/27/2027 09/26/2017 or Tdap) Insurance Payer Benefit Plan Subscriber ID Effective Phone Address Typ e / Group Dates [facility] [id number] 2019-Prese [phone] [address] [id number] PPO PLUS nt [address] [place] [address] [facility] hitesh Damian (Work) [place] [phone] Care Teams Sharepoint Application Developer Relationship Specialty Start Date End Date Elsewhere, Pcp PCP - General Family Medicine 06/15/17
--- OUTSIDE RECORDS SUMMARY | 2021-12-11 07:56 | XMS_ITS | Encounter Summary ---
:1960 Author Organization [facility] Address [address] [place] [address] Care Team Providers Name Role Phone Elsewhere, Pcp Primary Care Provider Unavailable Encounter Details Date Type Department Care Team Description 10/12/2017 Clinical Communication Department of [facility] Mago Sousa V., Medicine in [place], APPRENTICE ARCHITECT, C.N. P. [address] [place] [address] [place] [id number] Social History Tobacco Use Types Packs/Day Years Used Date Smoking Tobacco: Never Smokeless Tobacco: Never Sex Assigned at Date Recorded Not on file documented as of this encounter Miscellaneous Notes Telephone Encounter - Louisa Leal L.PTayo - 10/12/2017 2:32 PM CDT Spoke with patient in regards to recent lab results. Telephone Encounter - Brittney Adamson - 10/12/2017 1:51 PM CDT Patient returning call for results documented in this encounter Plan of Treatment Not on filedocumented as of this encounter Visit Diagnoses Not on filedocumented in this encounter Care Teams Senior Java Developer Relationship Specialty Start Date End Date Elsewhere, Pcp PCP - General Family Medicine 06/15/17 documented as of this encounter
--- OUTSIDE RECORDS SUMMARY | 2021-12-11 07:56 | XMS_ITS | Encounter Summary ---
:1960 Author Organization [facility] Address [address] [place] [address] Care Team Providers Name Role Phone Elsewhere, Pcp Primary Care Provider Unavailable Reason for Visit Reason Onset Date Comments Appointment 09/26/2017 contact patient Encounter Details Date Type Department Care Team Description 09/26/2017 Clinical Communication Department of Gisselle Acharya Ap pointment Family Medicine, L.P.N. (contact patient) [facility], [address] [facility] [place] [place] [address] [facility] [address] [place], [place] [phone] [address] (Work) [phone] Social History Tobacco Use Types Packs/Day Years Used Date Smoking Tobacco: Never Smokeless Tobacco: Never Sex Assigned at Date Recorded Not on file documented as of this encounter Miscellaneous Notes Telephone Encounter - Gisselle Acharya L.PKristineN. - 09/27/2017 4:53 PM CDT Called Josefina- she was unsure of call on a message. did let her know I did reach him. Telephone Encounter - Lory Sousa APRN, C.N.P. - 09/27/2017 1:01 PM CDT Please call Josefina his per her request. Telephone Encounter - Brittney Adamson - 09/26/2017 4:44 PM CDT Patient Nicki returning call, Patient is currently in [facility]. Please call Nicki at work tomorrow at [phone]. Telephone Encounter - Gisselle Acharya L.P.N. - 09/26/2017 3:01 PM CDT Lory asked me to contact patient to have him see Tawana Matthews for wound care. Patient states he is now in the [facility]. He had cellulitis. The left leg is improved but now has gone to the right leg documented in this encounter Plan of Treatment Not on filedocumented as of this encounter Visit Diagnoses Not on filedocumented in this encounter Care Teams Senior Bi Developer Relationship Specialty Start Date End Date Elsewhere, Pcp PCP - General Family Medicine 06/15/17 documented as of this encounter
--- OUTSIDE RECORDS SUMMARY | 2021-12-11 07:56 | XMS_ITS | Encounter Summary ---
:1960 Author Organization [facility] Address [address] [place] [address] Care Team Providers Name Role Phone Elsewhere, Pcp Primary Care Provider Unavailable Encounter Details Date Type Department Care Team Description 09/12/2017 Orders Only Department of [facility] [place], Lory V., Hypertens ion Venous Community Internal ROCKET MOTOR TESTER, C.N.P. Chronic With Ulcer And Medicine in [address] Inflammation Left (HCC) [place], [place] (Primary Dx) [address] [facility] [address] [place], [place] [phone] [address] (Work) [phone] Social History Tobacco Use Types Packs/Day Years Used Date Smoking Tobacco: Never Smokeless Tobacco: Never Sex Assigned at Date Recorded Not on file documented as of this encounter Plan of Treatment Not on filedocumented as of this encounter Visit Diagnoses Diagnosis Hypertension Venous Chronic With Ulcer A nd Inflammation Left (HCC) - Primary documented in this encounter Care Teams Demo Coordinator Relationship Specialty Start Date End Date Elsewhere, Pcp PCP - General Family Medicine 06/15/17 documented as of this encounter
--- OUTSIDE RECORDS SUMMARY | 2021-12-11 07:56 | XMS_ITS | Encounter Summary ---
:1960 Author Organization [facility] Address [address] [place] [address] Care Team Providers Name Role Phone Elsewhere, Pcp Primary Care Provider Unavailable Encounter Details Date Type Department Care Team Description 02/11/2021 Orders Only RST PCP [facility] Ramandeep Martinez M.D. [address] [place], [place] [phone] (Wo rk) Social History Tobacco Use Types Packs/Day Years Used Date Smoking Tobacco: Never Smokeless Tobacco: Never Sex Assigned at Date Recorded Not on file documented as of this encounter Plan of Treatment Not on filedocumented as of this encounter Visit Diagnoses Not on filedocumented in this encounter Care Teams Radio Program Checker Relationship Specialty Start Date End Date Elsewhere, Pcp PCP - General Family Medicine 06/15/17 documented as of this encounter
--- OUTSIDE RECORDS SUMMARY | 2021-12-11 07:56 | XMS_ITS | Encounter Summary ---
:1960 Author Organization [facility] Address [address] [place] [address] Care Team Providers Name Role Phone Elsewhere, Pcp Primary Care Provider Unavailable Encounter Details Date Type Department Care Team Description 06/27/2020 Orders Only [facility] PCP [facility] Sa darian Martinez M.D. [address] [place], [place] [phone] (Wo rk) Social History Tobacco Use Types Packs/Day Years Used Date Smoking Tobacco: Never Smokeless Tobacco: Never Sex Assigned at Date Recorded Not on file documented as of this encounter Plan of Treatment Not on filedocumented as of this encounter Visit Diagnoses Not on filedocumented in this encounter Care Teams Bumper Straightener Relationship Specialty Start Date End Date Elsewhere, Pcp PCP - General Family Medicine 06/15/17 documented as of this encounter
--- OUTSIDE RECORDS SUMMARY | 2021-12-11 07:56 | XMS_ITS | Encounter Summary ---
:1960 Author Organization [facility] Address [address] [place] [address] Care Team Providers Name Role Phone Elsewhere, Pcp Primary Care Provider Unavailable Reason for Visit Reason Comments Wound Care right lower leg Encounter Details Date Type Department Care Team Description 10/19/2017 Office Visit Department of Internal Lory Sousa Venous Medicine in Shahana Hester APRN, C.N.P. Hypertension Idiopathic [place] [address] With Ulcer And [address] [place], [place] Inflammation Of Right RAJWINDER [place] [id number] Lower Extremity (HCC) [id number] (Primary Dx) Social History Tobacco Use Types Packs/Day Years Used Date Smoking Tobacco: Never Smokeless Tobacco: Never Sex Assigned at Date Recorded Not on file documented as of this encounter Last Filed Vital Signs Vital Sign Reading Time Taken Comments Blood Pressure 126/84 10/19/2017 8:50 AM CDT Pulse 64 10/19/2017 8:50 AM CDT Temperature 36.7 ??C (98.1 ??F) 10/19/2017 8:50 AM CDT Respiratory Rate 18 10/19/2017 8:50 AM CDT Oxygen Saturation - - Inhaled Oxygen Concentration - - Weight 130 kg (285 lb 15 oz) 10/19/2017 8:50 AM CDT Height - - Body Mass Index 40.34 05/02/2017 12:50 PM CERTIFIED NURSE documented in this encounter Patient Instructions Patient InstructionsLory Sousa APRN, C.N.P. - 10/19/2017 9:00 AM CDT The wound culture results will return the end of the week. I recommend that you have arterial studies. Please talk this over with your primary provider [place]. documented in this encounter Progress Notes Lory Sousa APRN, C.N.P. - 10/19/2017 9:00 AM CDT Chief Complaint Patient presents with ??? Wound Care right lower leg Julien Ridley is a 57 y.o. male with right lower extremity venous stasis ulcers complicated by delayed healing history of infection and diabetes mellitus type 2. He will see his primary provider in [place] on Tuesday. He is not back at work yet after being hospitalized twice for cellulitis. He still has pain in the wound but he feels his wounds are healing better. He offers no complaints with any review of systems. He states his blood sugars are doing well. Current Outpatient Prescriptions: ??? blood sugar diagnostic [...] Allergen Reactions ??? Dimethicone-Petrolatum Rash ??? Horse [place] Rash ??? Mepilex Ag [Silver Sulfate-Foam Bandage] [...] With Ulcer And Inflammation Left ([facility]) 11/24/2009 Venous Stasis Ulcer with Inflammation ??? Infection Bacterial 06/17/2017 ??? Morbid Obesity Body Mass Index Greater Than Or Equal To 40 Adult ([facility]) 06/11/2015 Morbid Obesity Body Mass Index (BMI) >40 Adult ??? Varicose Vein Lower Extremity With Ulcer And Inflammation ([facility]) 11/24/2009 Venous Stasis Ulcer with Inflammation ??? Varicose Vein Lower Extremity With Ulcer And Inflammation Bilateral ([facility]) 02/21/2017 ??? Varicose Vein Lower Extremity With Ulcer And Inflammation Left ([facility]) 08/01/2015 Past Surgical History: Procedure Laterality Date ??? OTHER CONVERTED SHX (SEE COMMENT) N/A 10/24/2001 >Inversion stripping of the right greater saphenous vein. ??? OTHER CONVERTED SHX (SEE COMMENT) N/A 08/03/2001 >Left great saphenous vein stripping and varicose vein avulsion. ??? OTHER CONVERTED SHX (SEE COMMENT) N/A 06/01/2001 >Left fifth lumbar hemilaminectomy with left fifth lumbar-first sacral diskectomy. BP 126/84 (BP Location: Right arm, Patient Position: Sitting, Cuff Size: Large) Pulse 64 Temp 36.7 ??C (Temporal) Resp 18 Wt 129.7 kg BMI 40.34 kg/m?? PHYSICAL EXAMINATION: GENERAL: He is well groomed in no acute distress SKIN: Right lower extremity shows tight edema in the ft and also 3+ edema in the leg. The leg is redwhich it has been. He has a wound on the inner, medial hind foot below the malleolus and he has 1 small open area on the lateral leg measuring point 5 x 0.2 superficial the ankle wound measures 0.5 x 0.5 0.1 deep. The wounds are healing nicely. IMPRESSION/ REPORT/ PLAN Right lower extremity venous stasis ulcers in the setting of cellulitis, diabetes mellitus type 2 and history of infection. The medial hind foot wound was cleansed with saline dried and a wound culture was obtained. Both wounds were washed with Hibiclens and rinsed with saline and dried. A Vaseline gauze was applied over both wounds covered with sterile 2 x [address] with a gauze wrap. His compression was then reapplied. He will return in 2 weeks for ongoing wound care and see his primary provider [place] in the meantime. I did recommend that he have arterial studies done. He will need to speak with his provider [place] regarding the studies. documented in this encounter Plan of Treatment Not on filedocumented as of this encounter Procedures Procedure Name Priority Date/Time Associated Diagnosis Comme nts BACTERIAL CULTURE, Routine 10/19/2017 9:42 AM Chronic Venous R esults for this AEROBIC + SUSC CDT Hypertension procedure are in Idiopathic With Ulcer the re sults And Inflammation Of section. Right Lower Extremity (HCC) documented in this encounter Results Bacterial Culture, Aerobic + Susc (10/19/2017 9:42 AM CDT) Analysis Performed At Patho logist Time Signature Bacterial Usual 10/22/2017 [facility] Culture, Crystal. 7:38 AM CDT [facility] LAB Specimen Anatomical Collection Method Collection Time Receive d Time (Source) Location / / Volume Laterality Skin (Leg, 10/19/2017 9:42 AM 8 2:06 Right) CDT PM CDT Comment: Specimen Source Site: Skin Lory Sousa APRN, C.N.P. LAB MICROBIOLOGY - GENERA L ORDERABLES Performing Organization Address City/State/ZIP Code Phon e Number [facility] [address] [place] [address] LAB documented in this encounter Visit Diagnoses Diagnosis Chronic Venous Hypertension Idiopathic W ith Ulcer And Inflammation Of Right Lower Extremity (HCC) - Primary documented in this encounter Care Teams Truck Driver Instructor Relationship Specialty Start Date End Date Elsewhere, Pcp PCP - General Family Medicine 06/15/17 documented as of this encounter
--- OUTSIDE RECORDS SUMMARY | 2021-12-11 07:57 | XMS_ITS | Encounter Summary ---
:1960 Author Organization [facility] Address [address] [place] [address] Care Team Providers Name Role Phone Unavailable Primary Care Provider Unavailable Encounter Details Date Type Department Care Team Description 05/02/2017 Telemedicine Department of Vascular Social History Tobacco Use Types Packs/Day Years Used Date Smoking Tobacco: Never Sex Assigned at Date Recorded Not on file documented as of this encounter Plan of Treatment Not on filedocumented as of this encounter Procedures Procedure Name Priority Date/Time Associated Diagnosis Comme nts VASCULAR IMAGE EXAM Routine 05/02/2017 1:10 PM Re sults for this SCREEN TACKER procedure are i n the results section. documented in this encounter Results VASCULAR IMAGE EXAM (05/02/2017 1:10 PM SCREEN TACKER) Specimen (Source) Anatomical Collection Method Collection Time Re ceived Time Location / / Volume Laterality 05/02/2017 1:07 PM SCREEN TACKER Narrative [facility] - 05/02/2017 1:10 PM SCREEN TACKER This order has been created and auto-finalized to support the import of images acquired without order. The clini thai documentation to support these images can be found on the encounter isabella t produced images. Provider Not In System IMG NON RAD IMAGING PROCEDUR ES Performing Organization Address City/State/ZIP Code Phon e Number [facility] NA documented in this encounter Visit Diagnoses Not on filedocumented in this encounter
--- OUTSIDE RECORDS SUMMARY | 2021-12-11 07:57 | XMS_ITS | Encounter Summary ---
:1960 Author Organization [facility] Address [address] [place] [address] Care Team Providers Name Role Phone Unavailable [...] Comme nts VASCULAR IMAGE EXAM Routine 05/02/2017 1:44 PM Re sults for this DOCTOR OF NURSE ANESTHESIA PRACTICE procedure are i n the results section. documented in this encounter Results VASCULAR IMAGE EXAM (05/02/2017 1:44 PM DOCTOR OF NURSE ANESTHESIA PRACTICE) Specimen (Source) Anatomical Collection Method Collection Time Re ceived Time Location / / Volume Laterality 05/02/2017 1:43 PM DOCTOR OF NURSE ANESTHESIA PRACTICE Narrative [facility] - 05/02/2017 1:44 PM DOCTOR OF NURSE ANESTHESIA PRACTICE This order has been created and auto-finalized [...]
--- OUTSIDE RECORDS SUMMARY | 2021-12-11 07:57 | XMS_ITS | Encounter Summary ---
:1960 Author Organization [facility] Address [address] [place] [address] Care Team Providers Name Role Phone Unavailable Primary Care Provider Unavailable Encounter Details Date Type Department Care Team Description 05/02/2017 Hospital Encounter HX RST VASC WOUND CARE Sha Subramanian CONS MKristineDKristine [address] [place] [phone] (Wo rk) Social History Tobacco Use Types Packs/Day Years Used Date Smoking Tobacco: Never Sex Assigned at Date Recorded Not on file documented as of this encounter Last Filed Vital Signs Vital Sign Reading Time Taken Comments Blood Pressure 174/99 05/02/2017 12:50 Vital sign r esult PM COMMUNICATIONS SUPERVISOR from Clinical [facility]. Pulse 67 05/02/2017 12:50 Vital sign r esult PM COMMUNICATIONS SUPERVISOR from Clinical [facility] [place]. Temperature - - Respiratory Rate - - Oxygen Saturation - - Inhaled Oxygen - - Concentration Weight 152 kg (335 lb 8.6 05/02/2017 12:50 Vital sig n result oz) PM COMMUNICATIONS SUPERVISOR from Clinical [facility]. Height 179.3 cm (5' 10.59) 05/02/2017 12:50 Vital s ign result PM COMMUNICATIONS SUPERVISOR from [facility]. Body Mass Index 47.34 05/02/2017 12:50 PM COMMUNICATIONS SUPERVISOR documented in this encounter Plan of Treatment Not on filedocumented as of this encounter Visit Diagnoses Not on filedocumented in this encounter
--- OUTSIDE RECORDS SUMMARY | 2021-12-11 07:57 | XMS_ITS | Encounter Summary ---
:1960 Author Organization [facility] Address [address] [place] [address] Care Team Providers Name Role Phone Elsewhere, Pcp Primary Care Provider Unavailable Reason for Visit Reason Comments Wound Care left lower leg Encounter Details Date Type Department Care Team Description 07/13/2017 Office Visit Department of Internal Merry, Lory Vari cose Vein Lower Extremity With Ulcer And Inflammation Left (HCC) (Primary Dx); Medicine in Shahana Hester, ZOE, C.N.P. Morbid Obesity Body Mass Index Greater T whitmore Or Equal To 40 Adult (HCC) [address] [place], [place] [phone] Social History Tobacco Use Types Packs/Day Years Used Date Smoking Tobacco: Never Smokeless Tobacco: Never Sex Assigned at Date Recorded Not on file documented as of this encounter Last Filed Vital Signs Vital Sign Reading Time Taken Comments Blood Pressure 138/82 07/13/2017 8:45 AM CDT Pulse 74 07/13/2017 8:45 AM CDT Temperature 36.8 ??C (98.2 ??F) 07/13/2017 8:45 AM CDT Respiratory Rate - - Oxygen Saturation - - Inhaled Oxygen Concentration - - Weight 145 kg (319 lb 0.1 oz) 07/13/2017 8:45 AM CDT Height - - Body Mass Index 45.01 05/02/2017 12:50 PM HEAD ATHLETIC TRAINER documented in this encounter Patient Instructions Patient InstructionsDuntLory vigil APRN, C.NLu. - 07/13/2017 9:00 AM CDT Used Xeroform on your wound return 1 week for ongoing wound care documented in this encounter Progress Notes Lory Sousa APRN, C.N.P. - 07/13/2017 9:00 AM CDT Chief Complaint Patient presents with ??? Wound Care left lower leg Julien Ridley is a 57 y.o. male with a several year history of a left lower extremity chronic venous stasis ulcer complicated by delayed healing and intermittent infections. He had been using santyl, but stopped 3 days ago because it started to burn. He has an appointment with his primary provider in [place] July 25. Current Outpatient Prescriptions: ??? gabapentin (for_NEURONTIN) 100 mg capsule, Take 100 mg by mouth 3 (three) times a day. , Disp: ,Rfl: ??? gabapentin (for_NEURONTIN) 300 mg capsule, Take 300 mg by mouth at bedtime. , Disp: , Rfl: ??? HYDROcodone-acetaminophen (for_NORCO) 5-325 mg per tablet, , Disp: , Rfl: ??? LYRICA 50 mg capsule, , Disp: , Rfl: Allergies Allergen Reactions ??? Dimethicone-Petrolatum Rash ??? Horse [place] Rash ??? Mepilex Ag [Silver Sulfate-Foam Bandage] Rash ??? Silver Rash and Other (see comments) Past Medical History: Diagnosis Date ??? Hypertension Chronic 01/08/2014 Hypertension (HTN) Chronic ??? Hypertension Essential Primary 01/08/2014 Hypertension (HTN) Chronic ??? 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 Infection Bacterial 06/17/2017 ??? Morbid Obesity [...] with left fifth lumbar-first sacral diskectomy. BP 138/82 (BP Location: Right arm, Patient Position: Sitting, Cuff Size: Large) Pulse 74 Temp 36.8 ??C (Temporal) Wt (!) 144.7 kg BMI 45.01 kg/m?? PHYSICAL EXAMINATION: GENERAL: He is well groomed in no acute distress SKIN: The lesion on his left medial lower extremity has shown more excoriation from home where the gauze was over the edges of the wound. The wound now measures 10 cm x 9 cm with a punctate wound bed. The areas of slough however, are showing granulation. IMPRESSION/ REPORT/ PLAN Left lower extremity venous stasis ulcer complicated by history of delayed healing and intermittent infections. The wound was cleansed with saline and Hibiclens rinse well with saline and dried. Xeroform was applied to the wound bed covered with sterile 4 x 4 and ABD held in place with a rolledgauze. His skin is very sensitive and he has not tolerated the santyl. Xeroform is the only thing he can tolerate on his wound. He will do daily dressing changes while he is at work he will do twice a day dressing changes at home when he is not at work and return 1 week for ongoing wound care. documented in this encounter Plan of Treatment Not on filedocumented as of this encounter Visit Diagnoses Diagnosis Varicose Vein Lower Extremity With Ulcer And Inflammation Left (HCC) - Primary Morbid Obesity Body Mass Index Greater T whitmore Or Equal To 40 Adult (HCC) documented in this encounter Care Teams Rope Rider Relationship Specialty Start Date End Date Elsewhere, Pcp PCP - General Family Medicine 06/15/17 documented as of this encounter
--- OUTSIDE RECORDS SUMMARY | 2021-12-11 07:57 | XMS_ITS | Encounter Summary ---
:1960 Author Organization [facility] Address [address] [place] [address] Care Team Providers Name Role Phone Elsewhere, Pcp Primary Care Provider Unavailable Reason for Visit Reason Comments Med Refill Encounter Details Date Type Department Care Team Description 08/19/2017 Refill Department of [facility] Lory Sousa APRN, Med Refill Internal Medicine [place] [address] [facility] [address] [place] [address] [place] [address] [phone] Social History Tobacco Use Types Packs/Day Years Used Date Smoking Tobacco: Never Smokeless Tobacco: Never Sex Assigned at Date Recorded Not on file documented as of this encounter Miscellaneous Notes Telephone Encounter - Lory Sousa APRN, C.N.P. - 08/19/2017 9:35 AM CDT Supplies ordered Telephone Encounter - Earnestine Pascual RDN, LD - 08/19/2017 7:02 AM CDT Images from the original note were not included. Nurse Review: DME Request Provider: Lory Sousa Pharmacy: [id number] Please Include the ICD 10 documented in this encounter Plan of Treatment Not on filedocumented as of this encounter Visit Diagnoses Not on filedocumented in this encounter Care Teams Flatwork Finisher Relationship Specialty Start Date End Date Elsewhere, Pcp PCP - General Family Medicine 06/15/17 documented as of this encounter
--- OUTSIDE RECORDS SUMMARY | 2021-12-11 07:57 | XMS_ITS | Encounter Summary ---
:1960 Author Organization [facility] Address [address] [place] [address] Care Team Providers Name Role Phone Elsewhere, Pcp Primary Care Provider Unavailable Encounter Details Date Type Department Care Team Description 06/16/2017 Abstract Department of Family Medicine, Provider, [facility], in [address] [place] [phone] Social History Tobacco Use Types Packs/Day Years Used Date Smoking Tobacco: Never Smokeless Tobacco: Never Sex Assigned at Date Recorded Not on file documented as of this encounter Plan of Treatment Not on filedocumented as of this encounter Visit Diagnoses Not on filedocumented in this encounter Care Teams Information Security Consultant Relationship Specialty Start Date End Date Elsewhere, Pcp PCP - General Family Medicine 06/15/17 documented as of this encounter
--- OUTSIDE RECORDS SUMMARY | 2021-12-11 07:57 | XMS_ITS | Encounter Summary ---
:1960 Author Organization [facility] Address [address] [place] [address] Care Team Providers Name Role Phone Unavailable [...] Comme nts VASCULAR IMAGE EXAM Routine 05/02/2017 1:49 PM Re sults for this SUMMER LAW ASSOCIATE procedure are i n the results section. documented in this encounter Results VASCULAR IMAGE EXAM (05/02/2017 1:49 PM SUMMER LAW ASSOCIATE) Specimen (Source) Anatomical Collection Method Collection Time Re ceived Time Location / / Volume Laterality 05/02/2017 1:43 PM SUMMER LAW ASSOCIATE Narrative [facility] - 05/02/2017 1:49 PM SUMMER LAW ASSOCIATE This order has been created and auto-finalized [...]
--- OUTSIDE RECORDS SUMMARY | 2021-12-11 07:57 | XMS_ITS | Encounter Summary ---
:1960 Author Organization [facility] Address [address] [place] [address] Care Team Providers Name Role Phone Unavailable [...] 05/02/2017 1:10 PM Re sults for this GRAVE DIGGER procedure are i n the results section. documented in this encounter Results VASCULAR IMAGE EXAM (05/02/2017 1:10 PM GRAVE DIGGER) Specimen (Source) Anatomical Collection Method Collection Time Re ceived Time Location / / Volume Laterality 05/02/2017 1:07 PM GRAVE DIGGER Narrative [facility] - 05/02/2017 1:10 PM GRAVE DIGGER This order has been created and auto-finalized [...]
--- OUTSIDE RECORDS SUMMARY | 2021-12-11 07:57 | XMS_ITS | Encounter Summary ---
:1960 Author Organization [facility] Address [address] [place] [address] Care Team Providers Name Role Phone Elsewhere, Pcp Primary Care Provider Unavailable Reason for Visit Reason Comments Wound Care left lower leg Encounter Details Date Type Department Care Team Description 07/20/2017 Office Visit Department of Internal [place], Lory Harkins, Lesion Skin Leg (Primary Dx); Medicine in [place], C.N. P. Morbid Obesity Body Mass Index Greater T whitmore Or Equal To 40 Adult ([facility]) [address] [place], [place] RAJWINDER HE[place] [phone] Social History Tobacco Use Types Packs/Day Years Used Date Smoking Tobacco: Never Smokeless Tobacco: Never Sex Assigned at Date Recorded Not on file documented as of this encounter Last Filed Vital Signs Vital Sign Reading Time Taken Comments Blood Pressure 154/94 07/20/2017 8:52 AM CDT Pulse 68 07/20/2017 8:48 AM CDT Temperature 36.3 ??C (97.3 ??F) 07/20/2017 8:48 AM CDT Respiratory Rate - - Oxygen Saturation - - Inhaled Oxygen Concentration - - Weight 146 kg (322 lb 1.5 oz) 07/20/2017 8:48 AM CDT Height - - Body Mass Index 45.44 05/02/2017 12:50 PM RADIO DIVISION OFFICER documented in this encounter Patient Instructions Patient InstructionsDuLory villanueva APRN, C.N.P. - 07/20/2017 9:00 AM CDT Continue wound care and see her primary provider on Tuesday documented in this encounter Progress Notes Lory Sousa APRN, C.N.P. - 07/20/2017 9:00 AM CDT Chief Complaint Patient presents with ??? Wound Care left lower leg Julien Ridley is a 57 y.o. male with the chronic left lower medial leg venous stasis ulcer complicated by delayed healing and intermittent infection. He states he has not been eating well over the past few days. He sees his primary provider in [place] on Tuesday the for follow-up. He denies any complaints with any review of systems.. Current Outpatient Prescriptions: ??? gabapentin (for_NEURONTIN) 100 [...] Allergen Reactions ??? Dimethicone-Petrolatum Rash ??? Horse [place] Rash ??? Mepilex Ag [Silver Sulfate-Foam Bandage] [...] with left fifth lumbar-first sacral diskectomy. BP (!) 154/94 (BP Location: Right arm, Patient Position: Sitting, Cuff Size: Large) Pulse 68 Temp 36.3 ??C (Temporal) Wt (!) 146.1 kg BMI 45.44 kg/m?? PHYSICAL EXAMINATION: GENERAL: He is well groomed and in no acute distress SKIN: The left lower extremity shows 2+ edema. The wound on the medial aspect of the lower leg has increased in size measuring 11.5 cm x 9.5. Cm x 0.2 cm. This is an area of erythema with a contact dermatitis appearance. He uses xeroform and plain gauze as he is unable to tolerate any other wound careproduct. His body reacts to any silver product and appears now he has a dermatitis from where the gauze has been sitting on the skin. The wound bed is punctate there are areas of slough with multiple small openings within the surface area measured above. There is no tunneling no undermining no odor drainage is moderate serous IMPRESSION/ REPORT/ PLAN Left lower extremity medial venous stasis ulcer complicated by history of delayed healing. The wound was cleansed with saline and Hibiclens rinsed well and dried. Xeroform was placed over the wound bed covered with a Telfa nonadhesive. An ABD was uses the dressing over the Telfa and held in place with a rolled gauze wrap. His own compression was reapplied. He will continue wound care at home and return in 1 week. He will see his primary provider in [place] on Tuesday. documented in this encounter Plan of Treatment Not on filedocumented as of this encounter Visit Diagnoses Diagnosis Lesion Skin Leg - Primary Morbid Obesity Body Mass Index Greater T whitmore Or Equal To 40 Adult (HCC) documented in this encounter Care Teams Roof Bolter Relationship Specialty Start Date End Date Elsewhere, Pcp PCP - General Family Medicine 06/15/17 documented as of this encounter
--- OUTSIDE RECORDS SUMMARY | 2021-12-11 07:57 | XMS_ITS | Encounter Summary ---
:1960 Author Organization [facility] Address [address] [place] [address] Care Team Providers Name Role Phone Elsewhere, Pcp Primary Care Provider Unavailable Reason for Visit Reason Comments Wound Care left lower leg Encounter Details Date Type Department Care Team Description 08/03/2017 Office Visit Department of Internal Lory Sousa rtension Venous Medicine in Shahana Hector APRN, C.N.P. Chronic With Ulcer And [place] [address] Inflammation Bilateral [address] [place], [place] (HCC) (Primary Dx) [place] [phone] Social History Tobacco Use Types Packs/Day Years Used Date Smoking Tobacco: Never Smokeless Tobacco: Never Sex Assigned at Date Recorded Not on file documented as of this encounter Last Filed Vital Signs Vital Sign Reading Time Taken Comments Blood Pressure 148/88 08/03/2017 8:51 AM CDT Pulse 64 08/03/2017 8:44 AM CDT Temperature 36.6 ??C (97.9 ??F) 08/03/2017 8:44 AM CDT Respiratory Rate 18 08/03/2017 8:44 AM CDT Oxygen Saturation - - Inhaled Oxygen Concentration - - Weight 146 kg (322 lb 8.5 oz) 08/03/2017 8:44 AM CDT Height - - Body Mass Index 45.51 05/02/2017 12:50 PM CORRECTION LIEUTENANT documented in this encounter Patient Instructions Patient InstructionsLory Sousa APRN, C.N.P. - 08/03/2017 9:00 AM CDT Continue wound care at home as you have been doing. documented in this encounter Progress Notes Lory Sousa APRN, C.N.P. - 08/03/2017 9:00 AM CDT Chief Complaint Patient presents with ??? Wound Care left lower leg Julien Ridley is a 57 y.o. male with a chronic left lower extremity medial malleolar areavenous stasis ulcer complicated by history of delayed healing. He denies any complaints with any review of systems. He has no fevers chills or night sweats. He haschronic venous insufficiency with edema. Current Outpatient Prescriptions: ??? gabapentin (for_NEURONTIN) 100 [...] Allergen Reactions ??? Dimethicone-Petrolatum Rash ??? Horse [place] Rash ??? Mepilex Ag [Silver Sulfate-Foam Bandage] [...] with left fifth lumbar-first sacral diskectomy. BP 148/88 (BP Location: Right arm, Patient Position: Sitting, Cuff Size: Large) Pulse 64 Temp 36.6 ??C (Temporal) Resp 18 Wt (!) 146.3 kg BMI 45.51 kg/m?? PHYSICAL EXAMINATION: GENERAL: He is well groomed in no acute distress SKIN: Wound on left lower extremity measures 7.5 x 5.5. The wound bed is punctate with marked granulation and epithelialization there is some slough. There is less phyllis wound erythema and excoriation. IMPRESSION/ REPORT/ PLAN Left lower extremity venous stasis ulcer complicated by history of delayed healing. The wound was cleansed with saline and Hibiclens, rinsed well with saline and dried. Due to the sensitivity of his skin, Xeroform is the only product that he can tolerate. A layer of Xeroform was placed over the open wound, covered with a Telfa. Desitin was placed on the phyllis wound skin. An ABD was then applied over the dressing held in place with a rolled gauze. His own compression stocking was thenreapplied. He will be fishing next week and will return in 2 weeks for ongoing wound care. documented in this encounter Plan of Treatment Not on filedocumented as of this encounter Visit Diagnoses Diagnosis Hypertension Venous Chronic With Ulcer A nd Inflammation Bilateral (HCC) - Primary documented in this encounter Care Teams Coordinator Volunteer Services Relationship Specialty Start Date End Date Elsewhere, Pcp PCP - General Family Medicine 06/15/17 documented as of this encounter
--- OUTSIDE RECORDS SUMMARY | 2021-12-11 07:57 | XMS_ITS | Encounter Summary ---
:1960 Author Organization [facility] Address [address] [place] [address] Care Team Providers Name Role Phone Elsewhere, Pcp Primary Care Provider Unavailable Reason for Visit Reason Comments Leg Problem Encounter Details Date Type Department Care Team Description 06/17/2017 Emergency [facility] Stasis Dermatitis Venous [address] Lower Extremity Left [place] [phone] (Primary Dx) [phone] Social History Tobacco Use Types Packs/Day Years Used Date Smoking Tobacco: Never Smokeless Tobacco: Never Sex Assigned at Date Recorded Not on file documented as of this encounter Medications at Time of Discharge Medication Sig Dispensed Refills Start Date End Date cephalexin (for_KEFLEX) Take 1 capsule (500 28 capsule 0 06/23/2017 500 mg capsule mg total) by mouth 4 (four) times a day for 7 days. gabapentin Take 100 mg by mouth 0 06/06/201706/2017 (for_NEURONTIN) 100 mg 3 (three) times a capsule day. gabapentin Take 300 mg by mouth 0 06/06/201704/04 (for_NEURONTIN) 300 mg 3 (three) times a capsule day. HYDROcodone-acetaminophe 0 06/06/2017 10/04/2017 n (for_NORCO) 5-325 mg per tablet documented as of this encounter Plan of Treatment Not on filedocumented as of this encounter Visit Diagnoses Diagnosis Stasis Dermatitis Venous Lower Extremity Left - Primary documented in this encounter Care Teams Advertising Rep Relationship Specialty Start Date End Date Elsewhere, Pcp PCP - General Family Medicine 06/15/17 documented as of this encounter
--- OUTSIDE RECORDS SUMMARY | 2021-12-11 07:57 | XMS_ITS | Encounter Summary ---
:1960 Author Organization [facility] Address [address] [place] [address] Care Team Providers Name Role Phone Elsewhere, Pcp Primary Care Provider Unavailable Reason for Visit Reason Onset Date Comments ICS Consult 08/03/2017 [place] Order Encounter Details Date Type Department Care Team Description 08/03/2017 Clinical Communication Department of Lory Sousa ICS Consult Internal Medicine ZOE Harkins, ([place] Order) in [place], C.N.P. [place] [address] [place], [place] [phone] Social History Tobacco Use Types Packs/Day Years Used Date Smoking Tobacco: Never Smokeless Tobacco: Never Sex Assigned at Date Recorded Not on file documented as of this encounter Miscellaneous Notes Telephone Encounter - Lory Sousa APRN, C.N.P. - 08/03/2017 11:16 AM CDT ok Telephone Encounter - Meredith Alcazar - 08/03/2017 10:47 AM CDT Unfortunately we are unable to use ICS Consult orders, they are specifically for Employee and Community Health. Please resubmit a new order under a different consult type. Thank you documented in this encounter Plan of Treatment Not on filedocumented as of this encounter Visit Diagnoses Not on filedocumented in this encounter Care Teams Solid Fiber Paster Operator Relationship Specialty Start Date End Date Elsewhere, Pcp PCP - General Family Medicine 06/15/17 documented as of this encounter
--- OUTSIDE RECORDS SUMMARY | 2021-12-11 07:57 | XMS_ITS | Encounter Summary ---
:1960 Author Organization [facility] Address [address] [place] [address] Care Team Providers Name Role Phone Unavailable Primary Care Provider Unavailable Encounter Details Date Type Department Care Team Description 03/30/2017 Telemedicine Department of Vascular Social History Tobacco Use Types Packs/Day Years Used Date Smoking Tobacco: Never Sex Assigned at Date Recorded Not on file documented as of this encounter Plan of Treatment Not on filedocumented as of this encounter Procedures Procedure Name Priority Date/Time Associated Diagnosis Comme nts VASCULAR IMAGE EXAM Routine 03/30/2017 11:24 AM R esults for this HEADING AND PRIMING TOOL SETTER procedure are i n the results section. documented in this encounter Results VASCULAR IMAGE EXAM (03/30/2017 11:24 AM HEADING AND PRIMING TOOL SETTER) Specimen (Source) Anatomical Collection Method Collection Time Re ceived Time Location / / Volume Laterality 03/30/2017 11:22 AM HEADING AND PRIMING TOOL SETTER Narrative [facility] - 03/30/2017 11:24 AM HEADING AND PRIMING TOOL SETTER This order has been created and auto-finalized [...]
--- OUTSIDE RECORDS SUMMARY | 2021-12-11 07:57 | XMS_ITS | Encounter Summary ---
:1960 Author Organization [facility] Address [address] [place] [address] Care Team Providers Name Role Phone Elsewhere, Pcp Primary Care Provider Unavailable Reason for Visit Reason Comments Communication culture results with message today Encounter Details Date Type Department Care Team Description 06/16/2017 Clinical Communication Department of Lory Sousa Internal Medicine ZOE Harkins, (culture r esults with in [place] C.N.P. message today) [place] [address] [place], [place] [phone] Social History Tobacco Use Types Packs/Day Years Used Date Smoking Tobacco: Never Smokeless Tobacco: Never Sex Assigned at Date Recorded Not on file documented as of this encounter Miscellaneous Notes Telephone Encounter - Gisselle Acharya L.PKristineN. - 06/16/2017 12:00 PM CDT Patient notified of the information as indicated. Telephone Encounter - Lory Sousa APRN C.N.P. - 06/16/2017 10:51 AM CDT Please contact drawn to let him know that the wound culture came back strep C. I am changing his antibiotic to Keflex 500 mg 4 times a day for 7 days a script was sent to his pharmacy. documented in this encounter Plan of Treatment Not on filedocumented as of this encounter Visit Diagnoses Not on filedocumented in this encounter Care Teams Surgical First Assistant Relationship Specialty Start Date End Date Elsewhere, Pcp PCP - General Family Medicine 06/15/17 documented as of this encounter
--- OUTSIDE RECORDS SUMMARY | 2021-12-11 07:57 | XMS_ITS | Encounter Summary ---
:1960 Author Organization [facility] Address [address] [place] [address] Care Team Providers Name Role Phone Unavailable [...] 03/30/2017 11:24 AM R esults for this FINANCIAL BUSINESS ANALYST procedure are i n the results section. documented in this encounter Results VASCULAR IMAGE EXAM (03/30/2017 11:24 AM FINANCIAL BUSINESS ANALYST) Specimen (Source) Anatomical Collection Method Collection Time Re ceived Time Location / / Volume Laterality 03/30/2017 11:22 AM FINANCIAL BUSINESS ANALYST Narrative [facility] - 03/30/2017 11:24 AM FINANCIAL BUSINESS ANALYST This order has been created and auto-finalized [...]
--- OUTSIDE RECORDS SUMMARY | 2021-12-11 07:57 | XMS_ITS | Encounter Summary ---
:1960 Author Organization [facility] Address [address] [place] [address] Care Team Providers Name Role Phone Unavailable [...] 05/02/2017 1:49 PM Re sults for this GEOTHERMAL OPERATIONS ENGINEER procedure are i n the results section. documented in this encounter Results VASCULAR IMAGE EXAM (05/02/2017 1:49 PM GEOTHERMAL OPERATIONS ENGINEER) Specimen (Source) Anatomical Collection Method Collection Time Re ceived Time Location / / Volume Laterality 05/02/2017 1:43 PM GEOTHERMAL OPERATIONS ENGINEER Narrative [facility] - 05/02/2017 1:49 PM GEOTHERMAL OPERATIONS ENGINEER This order has been created and auto-finalized [...]
--- OUTSIDE RECORDS SUMMARY | 2021-12-11 07:57 | XMS_ITS | Encounter Summary ---
:1960 Author Organization [facility] Address [address] [place] [address] Care Team Providers Name Role Phone Elsewhere, Pcp Primary Care Provider Unavailable Reason for Visit Reason Comments Wound Care left lower leg Encounter Details Date Type Department Care Team Description 07/06/2017 Office Visit Department of Internal [facility], Lory Vari cose Vein Lower Extremity With Ulcer And Inflammation Left (HCC) (Primary Dx); Medicine in Shahana Hester, JAVA DEVELOPER WITH SECURITY CLEARANCE, C.N.P. Morbid Obesity Body Mass Index Greater T [place] Or Equal To 40 Adult (HCC); [address] Stasis Ulcer With Varicose Vein Left (HC C) [address], [place] [phone] Social History Tobacco Use Types Packs/Day Years Used Date Smoking Tobacco: Never Smokeless Tobacco: Never Sex Assigned at Date Recorded Not on file documented as of this encounter Last Filed Vital Signs Vital Sign Reading Time Taken Comments Blood Pressure 134/86 07/06/2017 8:59 AM CDT Pulse 72 07/06/2017 8:59 AM CDT Temperature 36.5 ??C (97.7 ??F) 07/06/2017 8:59 AM CDT Respiratory Rate - - Oxygen Saturation - - Inhaled Oxygen Concentration - - Weight 143 kg (315 lb 4.1 oz) 07/06/2017 8:59 AM CDT Height - - Body Mass Index 44.48 05/02/2017 12:50 PM JEWEL SAWYER documented in this encounter Patient Instructions Patient InstructionsLory Sousa APRN, C.NLu. - 07/06/2017 9:00 AM CDT Do daily dressing changes using santyl in a thin layer to the area of slough documented in this encounter Progress Notes Lory Sousa APRN, C.N.P. - 07/06/2017 9:00 AM CDT Chief Complaint Patient presents with ??? Wound Care left lower leg Julien Ridley is a 57 y.o. male with chronic left lower extremity venous stasis ulcer complicated by delayed healing in history of infection. He also stands on his feet for work. He feels his leg is healing. He has no pain in the wound. He has no complaints with any review of systems. He had run out of santyl and had gone back to using Xeroform. Current Outpatient Prescriptions: ??? gabapentin (for_NEURONTIN) 100 [...] Allergen Reactions ??? Dimethicone-Petrolatum Rash ??? Horse [place] Rash ??? Mepilex Ag [Silver Sulfate-Foam Bandage] [...] with left fifth lumbar-first sacral diskectomy. BP 134/86 (BP Location: Right arm, Patient Position: Sitting, Cuff Size: Large) Pulse 72 Temp 36.5 ??C (Temporal) Wt (!) 143 kg BMI 44.48 kg/m?? PHYSICAL EXAMINATION: GENERAL: He is well groomed in no acute distress SKIN: Left medial wound has an area of excoriation and redness measuring 11.5 x 8.5. Within this area of erythema, there is a series of connected, punctated open wounds measuring 6.5 cm x 6.5 cm x 0.12cm deep. There is granulation seen within the wound beds. There is also slough. There is no tunneling no undermining no odor drainage is moderate serous IMPRESSION/ REPORT/ PLAN Left lower extremity medial venous stasis ulcer complicated by history of delayed healing and infection. The wound was cleansed with saline and Hibiclens rinse well and dried. A thin layer of Santyl was applied to the area of slough. This was covered by sterile 4 x 4 and then in ABD were held in place with a rolled gauze. He will continue daily dressing changes using the santyl and return in 1 week for ongoing wound care documented in this encounter Plan of Treatment Not on filedocumented as of this encounter Visit Diagnoses Diagnosis Varicose Vein Lower Extremity With Ulcer And Inflammation Left (HCC) - Primary Morbid Obesity Body Mass Index Greater T [place] Or Equal To 40 Adult (HCC) Stasis Ulcer With Varicose Vein Left (HC C) documented in this encounter Care Teams Secondary Set Up Man Relationship Specialty Start Date End Date Elsewhere, Pcp PCP - General Family Medicine 06/15/17 documented as of this encounter
--- OUTSIDE RECORDS SUMMARY | 2021-12-11 07:57 | XMS_ITS | Encounter Summary ---
:1960 Author Organization [facility] Address [address] [place] [address] Care Team Providers Name Role Phone Elsewhere, Pcp Primary Care Provider Unavailable Reason for Visit Reason Comments Communication wound care Encounter Details Date Type Department Care Team Description 06/08/2017 Clinical Communication Department of Lory Sousa (wound Family Medicine, V., AIRCRAFT MACHINIST, care) [facility], C.N.P. in [address] [address] [place] [phone] (Work) [phone] Social History Tobacco Use Types Packs/Day Years Used Date Smoking Tobacco: Never Sex Assigned at Date Recorded Not on file documented as of this encounter Miscellaneous Notes Telephone Encounter - Candy Muniz - 06/08/2017 3:17 PM CST This should be scheduled in [place] NISTRATION ASSISTANT Telephone Encounter - Venessa Hsu - 06/08/2017 8:30 AM CST Pt is calling to state that the Dr in [place] would like him to start having his wound care done with Hua Sousa. Please call pt at [phone]. Pt states that the inside of his left ankle is showing a little infection. NISTRATION ASSISTANT documented in this encounter Plan of Treatment Not on filedocumented as of this encounter Visit Diagnoses Not on filedocumented in this encounter Care Teams Vice President Education Relationship Specialty Start Date End Date Elsewhere, Pcp PCP - General Family Medicine 06/15/17 documented as of this encounter
--- OUTSIDE RECORDS SUMMARY | 2021-12-11 07:57 | XMS_ITS | Encounter Summary ---
:1960 Author Organization [facility] Address [address] [place] [address] Care Team Providers Name Role Phone Unavailable [...] 05/02/2017 1:10 PM Re sults for this CHART CLERK procedure are i n the results section. documented in this encounter Results VASCULAR IMAGE EXAM (05/02/2017 1:10 PM CHART CLERK) Specimen (Source) Anatomical Collection Method Collection Time Re ceived Time Location / / Volume Laterality 05/02/2017 1:07 PM CHART CLERK Narrative [facility] - 05/02/2017 1:10 PM CHART CLERK This order has been created and auto-finalized [...]
--- OUTSIDE RECORDS SUMMARY | 2021-12-11 07:57 | XMS_ITS | Encounter Summary ---
:1960 Author Organization [facility] Address [address] [place] [address] Care Team Providers Name Role Phone Unavailable [...] 03/30/2017 11:24 AM R esults for this TECHNICAL OPERATIONS MANAGER procedure are i n the results section. documented in this encounter Results VASCULAR IMAGE EXAM (03/30/2017 11:24 AM TECHNICAL OPERATIONS MANAGER) Specimen (Source) Anatomical Collection Method Collection Time Re ceived Time Location / / Volume Laterality 03/30/2017 11:22 AM TECHNICAL OPERATIONS MANAGER Narrative [facility] - 03/30/2017 11:24 AM TECHNICAL OPERATIONS MANAGER This order has been created and auto-finalized [...]
--- OUTSIDE RECORDS SUMMARY | 2021-12-11 07:57 | XMS_ITS | Encounter Summary ---
:1960 Author Organization [facility] Address [address] [place] [address] Care Team Providers Name Role Phone Elsewhere, Pcp Primary Care Provider Unavailable Reason for Visit Reason Comments Communication Encounter Details Date Type Department Care Team Description 06/08/2017 Clinical Communication Department of [facility] Communication Medicine, [place] Harkins APRN, C.N .PKristine [facility], [address] [address] [place] [phone] (Work) [phone] Social History Tobacco Use Types Packs/Day Years Used Date Smoking Tobacco: Never Sex Assigned at Date Recorded Not on file documented as of this encounter Plan of Treatment Not on filedocumented as of this encounter Visit Diagnoses Not on filedocumented in this encounter Care Teams Conveyor Man Relationship Specialty Start Date End Date Elsewhere, Pcp PCP - General Family Medicine 06/15/17 documented as of this encounter
--- OUTSIDE RECORDS SUMMARY | 2021-12-11 07:57 | XMS_ITS | Encounter Summary ---
:1960 Author Organization [facility] Address [address] [place] [address] Care Team Providers Name Role Phone Unavailable [...] Comme nts VASCULAR IMAGE EXAM Routine 03/30/2017 12:00 PM R esults for this ORDER CLERK procedure are i n the results section. documented in this encounter Results VASCULAR IMAGE EXAM (03/30/2017 12:00 PM ORDER CLERK) Specimen (Source) Anatomical Collection Method Collection Time Re ceived Time Location / / Volume Laterality 03/30/2017 11:59 AM ORDER CLERK Narrative [facility] - 03/30/2017 12:02 PM ORDER CLERK This order has been created and [...]
--- OUTSIDE RECORDS SUMMARY | 2021-12-11 07:57 | XMS_ITS | Encounter Summary ---
:1960 Author Organization [facility] Address [address] [place] [address] Care Team Providers Name Role Phone Unavailable [...] Comme nts VASCULAR IMAGE EXAM Routine 03/30/2017 12:02 PM R esults for this BUILDING MATERIALS SALES ATTENDANT procedure are i n the results section. documented in this encounter Results VASCULAR IMAGE EXAM (03/30/2017 12:02 PM BUILDING MATERIALS SALES ATTENDANT) Specimen (Source) Anatomical Collection Method Collection Time Re ceived Time Location / / Volume Laterality 03/30/2017 11:59 AM BUILDING MATERIALS SALES ATTENDANT Narrative [facility] - 03/30/2017 12:02 PM BUILDING MATERIALS SALES ATTENDANT This order has been created and auto-finalized [...]
--- OUTSIDE RECORDS SUMMARY | 2021-12-11 07:57 | XMS_ITS | Encounter Summary ---
:1960 Author Organization [facility] Address [address] [place] [address] Care Team Providers Name Role Phone Elsewhere, Pcp Primary Care Provider Unavailable Reason for Visit Reason Comments Wound Care left lower leg Encounter Details Date Type Department Care Team Description 07/27/2017 Office Visit Department of Internal Lory Sousa rtension Venous Chronic With Ulcer And Inflammation Bilateral (HCC) (Primary Dx); Medicine in [place] APRN, C.N.P. Morbid Obesity Body Mass Index Greater T whitmore Or Equal To 40 Adult (HCC) [address] [place], [place] [phone] Social History Tobacco Use Types Packs/Day Years Used Date Smoking Tobacco: Never Smokeless Tobacco: Never Sex Assigned at Date Recorded Not on file documented as of this encounter Last Filed Vital Signs Vital Sign Reading Time Taken Comments Blood Pressure 138/80 07/27/2017 8:39 AM CDT Pulse 64 07/27/2017 8:39 AM CDT Temperature 36.4 ??C (97.5 ??F) 07/27/2017 8:39 AM CDT Respiratory Rate - - Oxygen Saturation - - Inhaled Oxygen Concentration - - Weight 148 kg (326 lb 1 oz) 07/27/2017 8:39 AM CDT Height - - Body Mass Index 46 05/02/2017 12:50 PM BUSINESS 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 - 07/27/2017 9:00 AM CDT Continue current wound care at home. Return in 1 week. I will make a referral to the [facility] wound and vascular Center for vascular testing and wound care documented in this encounter Progress Notes Lory Sousa APRN, C.N.P. - 07/27/2017 9:00 AM CDT Chief Complaint Patient presents with ??? Wound Care left lower leg Julien Ridley is a 57 y.o. male with a several year history of a chronic left medial malleolar area venous stasis ulcer. His skin is sensitive to many products and it appears the only thing he can tolerate is Xeroform. He had a venous ablation several years ago with [facility] in [place]. His wound is actually getting worse. He has a lot of drainage. 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 He has little time to elevate his legs. He does wear compression. He denies any fevers chills headaches night sweats. Denies any cardiac complaints including chest pain palpitations or angina. Denies any respiratory complaints including orthopnea dyspnea PND. He denies any abdominal complaints including nausea vomiting diarrhea. He denies any musculoskeletal complaints. No pain in the wound bed. He denies any neurological complaints. Current Outpatient Prescriptions: ??? gabapentin (for_NEURONTIN) 100 mg capsule, Take 100 mg by mouth 3 (three) times a day. , Disp: ,Rfl: ??? gabapentin (for_NEURONTIN) 300 mg capsule, Take 300 mg by mouth at bedtime. , Disp: , Rfl: ??? HYDROcodone-acetaminophen (for_NORCO) 5-325 mg per tablet, , Disp: , Rfl: ??? LYRICA 50 mg capsule, , Disp: , Rfl: Past Medical History: Diagnosis [...] with left fifth lumbar-first sacral diskectomy. BP 138/80 (BP Location: Right arm, Patient Position: Sitting, Cuff Size: Large) Pulse 64 Temp 36.4 ??C (Temporal) Wt (!) 147.9 kg BMI 46.00 kg/m?? PHYSICAL EXAMINATION: GENERAL: He is well groomed in no acute distress SKIN: The venous stasis ulcer on the left lower medial malleolar area measures 12 cm x 10.5 cm with punctated wound bed and several openings which are slough. He has worsening erythema in the phyllis wound skin. There is trace edema in the leg. IMPRESSION/ REPORT/ PLAN Left lower extremity venous stasis ulcer complicated by history of delayed healing. The wound was cleansed with saline and Hibiclens rinse well and dried. Xeroform was applied to the wound bed covered with Telfa the pads as that is what he can tolerate. An ABD was in uses a secondary dressing held in place with a rolled gauze. His own compression was reapplied. I am going to refer him to the wound and vascular Center at the [facility]. He is in agreement withthis plan. He had seen Josefina Ny in the past. He did say that she was out of the clinic one day and saw a different provider. He said that this provider told him to not come back. He said it was because he had so much drainage. He is willing to go back to the [facility] at this point. A referral was made. He does not see his provider Florecita until August. He will return 1 week to see me. documented in this encounter Plan of Treatment Not on filedocumented as of this encounter Visit Diagnoses Diagnosis Hypertension Venous Chronic With Ulcer A nd Inflammation Bilateral (HCC) - Primary Morbid Obesity Body Mass Index Greater T whitmore Or Equal To 40 Adult (HCC) documented in this encounter Care Teams Machine Container Washer Relationship Specialty Start Date End Date Elsewhere, Pcp PCP - General Family Medicine 06/15/17 documented as of this encounter
--- OUTSIDE RECORDS SUMMARY | 2021-12-11 07:57 | XMS_ITS | Encounter Summary ---
:1960 Author Organization [facility] Address [address] [place] [address] Care Team Providers Name Role Phone Elsewhere, Pcp Primary Care Provider Unavailable Reason for Visit Reason Comments Wound Care both lower legs Outpatient (Routine) - Closed Specialty Diagnoses / Procedures Referred By Contact Refer red To Contact Community Internal Diagnoses Varicose Vein Lower Extremity With Ulcer And Inflammation Left (HCC) Morbid Obesity Body Mass Index Greater Than Or Equal To 40 Adult (HCC) Lory Sousa V., [facility] [employer], C.N.P. [address] [place] [address] Referral ID Status Reason Start Date Expiration Date Visits Requ ested Visits Authorized [id number] Closed 06/15/2017 12/12/2017 1 1 Encounter Details Date Type Department Care Team Description 06/22/2017 Office Visit Department of Internal Lory Sousa Vari cose Vein Lower Extremity With Ulcer And Inflammation Left (HCC); Medicine in [place] Hester, SAP BASIS, C.N.P. Morbid Obesity Body Mass Index Greater T whitmore Or Equal To 40 Adult (HCC) [place] [address] [facility] [address] [place], [place] [phone] Social History Tobacco Use Types Packs/Day Years Used Date Smoking Tobacco: Never Smokeless Tobacco: Never Sex Assigned at Date Recorded Not on file documented as of this encounter Last Filed Vital Signs Vital Sign Reading Time Taken Comments Blood Pressure 144/92 06/22/2017 8:40 AM CDT Pulse 76 06/22/2017 8:40 AM CDT Temperature 36.4 ??C (97.5 ??F) 06/22/2017 8:40 AM CDT Respiratory Rate - - Oxygen Saturation - - Inhaled Oxygen Concentration - - Weight 143 kg (316 lb 5.8 oz) 06/22/2017 8:40 AM CDT Height - - Body Mass Index 44.64 05/02/2017 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 - 06/22/2017 9:00 AM CDT Continue daily wound care as you are doing. Continue wearing compression. Return in 1 week. documented in this encounter Progress Notes Lory Sousa APRN, C.N.P. - 06/22/2017 9:00 AM CDT CHIEF COMPLAINT: Left lower extremity venous stasis ulcer complicated by delayed healing and infection. Julien Ridley is a 57 y.o. male with a left lower extremity venous stasis ulcer. Tank has had this ulcer for several years and has never had total healing. This is my 3rd visit with him regarding this left lower extremity ulcer. He had a wound culture which grew out STREPTOCOCCUS DYSGALACTIAE and STREPTOCOCCUS AGALACTIAE. He was given a g of Rocephin in the office and started on doxycycline before the wound culture results were finalized. He was then switched to Keflex 500 mg 4 times a day for 7 days. At under visit last week he had erythema of the left leg going into the knee and thigh. He had edemaand increased pain in the leg. I sent him to the [facility] Emergency Department for further work up of DVT and possible need for IV antibiotic therapy. After testing including an ultrasound of his left leg to rule out a DVT and IV antibiotic therapy, he was discharged from the emergency department. He states he is feeling much better today. He has no headaches fevers chills night sweats. He has nocardiac complaints including chest pain palpitations or angina. He has no respiratory complaints including orthopnea, dyspnea or PND. Has no abdominal complaints including nausea vomiting diarrhea or constipation. He is tolerating the Keflex well. He has little drainage in the wound. He has been givenLyrica by his primary provider in [place]. He has not started Lyrica yet. The plan is for him to wean himself off the gabapentin and then start Lyrica. He has been doing daily dressing changes using Xeroform. He wears compression with his compression stocking. He is requesting not have an Unna boot. Current Outpatient Prescriptions: ??? cephalexin (for_KEFLEX) 500 mg capsule, Take 1 capsule (500 mg total) by mouth 4 (four) times a day for 7 days., Disp: 28 capsule, Rfl: 0 ??? gabapentin (for_NEURONTIN) 100 mg capsule, Take [...] Allergen Reactions ??? Dimethicone-Petrolatum Rash ??? Horse [place] Rash ??? Mepilex Ag [Silver Sulfate-Foam Bandage] [...] left fifth lumbar-first sacral diskectomy. BP (!) 144/92 (BP Location: Left arm, Patient Position: Sitting, Cuff Size: Large) Pulse 76 Temp36.4 ??C (Temporal) Wt (!) 143.5 kg BMI 44.64 kg/m?? PHYSICAL EXAMINATION: GENERAL: Constitutionally he looks good. He is well groomed in no acute distress SKIN: Left lower extremity shows trace edema. The wound measures 8 x 4.5. The wound bed is punctate with some slough there is granulating but seen. There is scant drainage. The skin on the leg is peeling from having been swollen and infected. He has no edema going up his thigh from his knee. IMPRESSION/ REPORT/ PLAN Left lower extremity venous stasis ulcer complicated by a long history of delayed healing and infection. The wound was cleansed with saline and Hibiclens rinsed well and dried. Xeroform was applied over the wound bed is this is the only product use able to tolerate. A sterile 4 x 4 was placed over the Xeroform and ABD was used as a secondary dressing. The dressing was securedwith a rolled gauze. His own compression stocking was reapplied. We talked about the need for debridement. I told him that I did not debride today because I want himto finish his course of Keflex. The wound is still painful. We talked about using santyl which is anenzymatic debrider as being an effective way to debride. He stated his new doctor Florecita question whether she should debride the wound. I told him that if he wanted her to do that she certainly could do that but he does not see her for another few weeks. I plan is to debride breed next week when he returns. He will continue daily dressing changes and return 1 week for ongoing wound care. documented in this encounter Plan of Treatment Not on filedocumented as of this encounter Visit Diagnoses Diagnosis Varicose Vein Lower Extremity With Ulcer And Inflammation Left (HCC) Morbid Obesity Body Mass Index Greater T whitmore Or Equal To 40 Adult (HCC) documented in this encounter Care Teams Skilled Nursing Professional Relationship Specialty Start Date End Date Elsewhere, Pcp PCP - General Family Medicine 06/15/17 documented as of this encounter
--- OUTSIDE RECORDS SUMMARY | 2021-12-11 07:57 | XMS_ITS | Encounter Summary ---
:1960 Author Organization [facility] Address [address] [place] [address] Care Team Providers Name Role Phone Elsewhere, Pcp Primary Care Provider Unavailable Encounter Details Date Type Department Care Team Description 06/16/2017 Orders Only Department of Internal [facility], Lory V., Medicine in [place], [facility], C.N. P. [address], [place] [phone] (Wo rk) Social History Tobacco Use Types Packs/Day Years Used Date Smoking Tobacco: Never Smokeless Tobacco: Never Sex Assigned at Date Recorded Not on file documented as of this encounter Plan of Treatment Not on filedocumented as of this encounter Visit Diagnoses Not on filedocumented in this encounter Care Teams Heel Sprayer First Relationship Specialty Start Date End Date Elsewhere, Pcp PCP - General Family Medicine 06/15/17 documented as of this encounter
--- OUTSIDE RECORDS SUMMARY | 2021-12-11 07:57 | XMS_ITS | Encounter Summary ---
:1960 Author Organization [facility] Address [address] [place] [address] Care Team Providers Name Role Phone Elsewhere, Pcp Primary Care Provider Unavailable Reason for Visit Reason Comments Wound Care left lower ext. Encounter Details Date Type Department Care Team Description 06/29/2017 Office Visit Department of Internal Lory Sousa Vari cose Vein Lower Medicine in [place]ana Hector APRN, C.N.P. Extremity With Ulcer [place] [address] And Inflammation Left [address] [place], [place] ([facility]) (Primary Dx) [place] [phone] Social History Tobacco Use Types Packs/Day Years Used Date Smoking Tobacco: Never Smokeless Tobacco: Never Sex Assigned at Date Recorded Not on file documented as of this encounter Last Filed Vital Signs Vital Sign Reading Time Taken Comments Blood Pressure 158/98 06/29/2017 8:49 AM CDT Pulse 76 06/29/2017 8:48 AM CDT Temperature 36.2 ??C (97.2 ??F) 06/29/2017 8:48 AM CDT Respiratory Rate 18 06/29/2017 8:48 AM CDT Oxygen Saturation - - Inhaled Oxygen Concentration - - Weight 145 kg (320 lb 8.8 oz) 06/29/2017 8:48 AM CDT Height - - Body Mass Index 45.23 05/02/2017 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 - 06/29/2017 9:00 AM CDT Change dressing twice a day using the santyl after cleansing with saline continue compression. documented in this encounter Progress Notes Lory Sousa APRN, C.N.P. - 06/29/2017 9:00 AM CDT Chief Complaint Patient presents with ??? Wound Care left lower ext. Julien Ridley is a 57 y.o. male with chronic left lower extremity venous stasis ulcer complicated by delayed healing and history of infection. He has no pain in the wound. He did state that he was back at work. He stands the whole time use working. By day 4 back at work, his leg started draining. He has a new primary care provider [place] and will see her next week, for his multiple comorbidities. Scheduled Meds: Continuous Infusions: No current facility-administered medications for this visit. PRN Meds:. Past Medical History: Diagnosis Date ??? Hypertension [...] left fifth lumbar-first sacral diskectomy. BP (!) 158/98 (BP Location: Right arm, Patient Position: Sitting, Cuff Size: Large) Pulse 76 Temp 36.2 ??C (Temporal) Resp 18 Wt (!) 145.4 kg BMI 45.23 kg/m?? PHYSICAL EXAMINATION: GENERAL: He is well groomed in no acute distress SKIN: Right lower extremity shows no edema. There are venous stasis and hemosiderin changes in the phyllis wound skin. The wound itself measures 8 x 10.1 deep. The wound bed is punctate. There granulatingbuds and epithelialization seen as well as approximately 80% slough There is some excoriation from dr guy. There is no tunneling undermining or odor IMPRESSION/ REPORT/ PLAN Left lower extremity venous stasis ulcer complicated by history of delayed healing infection. Wound was cleansed with saline and Hibiclens rinse well with saline and dried. Santyl was applied tothe areas of slough. The wound was covered with sterile 4 x 4. An ABD was uses secondary dressing held in place with rolled gauze. He will change his dressing twice a day due to the amount of drainage she states he has. He will continue to wear his multilayer compression in the form of compression stocking and a juxta Lite. He will return in 1 week for ongoing wound care documented in this encounter Plan of Treatment Not on filedocumented as of this encounter Visit Diagnoses Diagnosis Varicose Vein Lower Extremity With Ulcer And Inflammation Left (HCC) - Primary documented in this encounter Care Teams Marketing Operations Associate Relationship Specialty Start Date End Date Elsewhere, Pcp PCP - General Family Medicine 06/15/17 documented as of this encounter
--- OUTSIDE RECORDS SUMMARY | 2021-12-11 07:57 | XMS_ITS | Encounter Summary ---
:1960 Author Organization [facility] Address [address] [place] [address] Care Team Providers Name Role Phone Elsewhere, Pcp Primary Care Provider Unavailable Reason for Referral Outpatient (Routine) - Closed Specialty Diagnoses / Procedures Referred By Contact Refer red To Contact Community Internal Diagnoses Varicose Vein Lower Extremity With Ulcer And Inflammation Left (HCC) Morbid Obesity Body Mass Index Greater Than Or Equal To 40 Adult (HCC) Lory Sousa [facility] Medicine ELECTRICAL ENGINEER, C.N.P. [address] [place] [id number] Referral ID Status Reason Start Date Expiration Date Visits Requ ested Visits Authorized [id number] Closed 06/15/2017 12/12/2017 1 1 Reason for Visit Reason Comments Wound Care left ankle Appointment Request (Routine) - Closed Specialty Diagnoses / Procedures Referred By Contact Refer red To Contact Community Internal Diagnoses par review [facility] Medicine Procedures par review Referral ID Status Reason Start Date Expiration Date Visits Requ ested Visits Authorized [id number] Closed 06/08/2017 12/05/2017 1 1 Encounter Details Date Type Department Care Team Description 06/15/2017 Office Visit Department of Internal Lory Sousa Vari cose Vein Lower Extremity With Ulcer And Inflammation Left (HCC) (Primary Dx); Medicine in Shahana Hester APRN, C.N.P. Morbid Obesity Body Mass Index Greater T whitmore Or Equal To 40 Adult (HCC) [address] [place], [place] RAJWINDER HESTER [id number] Social History Tobacco Use Types Packs/Day Years Used Date Smoking Tobacco: Never Smokeless Tobacco: Never Sex Assigned at Date Recorded Not on file documented as of this encounter Last Filed Vital Signs Vital Sign Reading Time Taken Comments Blood Pressure 150/88 06/15/2017 9:05 AM CDT Pulse 72 06/15/2017 8:58 AM CDT Temperature 36.8 ??C (98.2 ??F) 06/15/2017 8:58 AM CDT Respiratory Rate 18 06/15/2017 8:58 AM CDT Oxygen Saturation - - Inhaled Oxygen Concentration - - Weight 147 kg (323 lb 3.1 oz) 06/15/2017 8:58 AM CDT Height - - Body Mass Index 45.6 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 - 06/15/2017 9:15 AM CDT A wound culture was done today results will return early next week. Keep the Unna boot in place return Tuesday morning. If you have chest pain or pressure with shortness of breath go to the emergency department. You were given Rocephin 1 g today which is a cephalosporin for the cellulitis in your left lower extremity. Start doxycycline 100 mg twice a day for 5 days. The wound culture results will be back and your antibiotic will either be continued or changed at that time. documented in this encounter Progress Notes Lory Sousa APRN, C.N.P. - 06/15/2017 9:15 AM CDT Chief Complaint Patient presents with ??? Wound Care left ankle Julien Ridley is a 57 y.o. male with a long history of left lower extremity venous stasisulcer. He is allergic to most wound care products. Xeroform is what is being used on his lower leg wound. He presents today with copious amounts of liquid drainage from the legs. His left pant leg is soaked almost to the middle of his leg from the drainage from his ankle. He has pain in the leg. He has had chest pain with shortness of breath in the recent past. He has not taken any means to seek medical care for these issues. He has just established care with a new provider in [place]. He has a follow-up appointment TuesdayJune 20. He will make sure that his provider knows about the shortness of breath and the chest pain. He would not like any workup at this point. I did instruct him to seek emergency medical care should he have chest pain and shortness of breath. He has no headaches fevers chills night sweats. He has no cardiac complaints at present. He has no respiratory complaints at present. He has no abdominal complaints. He has the left lower extremity edema with erythema. He also has left-sided back pain into his left side of his leg. This is chronic. Hestates that he mentioned this at the [facility] in [place]. He also states that the [facility] in [place] ???threw him out of wound care. His [place] provider referred him to me. The last visit that I had with him was 06/11/2015. Current Outpatient Prescriptions: ??? gabapentin (for_NEURONTIN) 100 mg capsule, , Disp: , Rfl: ??? gabapentin (for_NEURONTIN) 300 mg capsule, , Disp: , Rfl: ??? HYDROcodone-acetaminophen (for_NORCO) 5-325 mg per tablet, , Disp: , Rfl: ??? doxycycline (for_VIBRAMYCIN) 100 mg capsule, Take 1 capsule (100 mg total) by mouth 2 (two) times a day for 5 days., Disp: 10 capsule, Rfl: 0 No current facility-administered medications for this visit. Allergies Allergen Reactions ??? Dimethicone-Petrolatum Rash ??? [place] Rash ??? Mepilex Ag [Silver Sulfate-Foam Bandage] Rash ??? Silver Rash and Other (see comments) Past Medical History: Diagnosis Date ??? Hypertension Chronic 01/08/2014 Hypertension (HTN) Chronic ??? 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 Morbid Obesity Body Mass Index Greater Than Or Equal To 40 Adult ([facility]) 06/11/2015 Morbid Obesity Body Mass Index (BMI) >40 Adult ??? Varicose Vein Lower Extremity With Ulcer And Inflammation (HCC) 11/24/2009 Venous Stasis Ulcer with Inflammation ??? Varicose Vein Lower Extremity With Ulcer And Inflammation Bilateral (HCC) 02/21/2017 ??? Varicose Vein Lower Extremity With Ulcer And Inflammation Left ([facility]) 08/01/2015 BP 150/88 (BP Location: Right arm, Patient Position: Sitting) Pulse 72 Temp 36.8 ??C (Temporal) Resp 18 Wt (!) 146.6 kg BMI 46.06 kg/m?? PHYSICAL EXAMINATION: GENERAL: He is well groomed. He appears very tired. Morbidly obese SKIN: Left lower extremity is draining copious amounts of clear fluid. The leg has 4+ edema from thetoes to above the knees. The foot itself is a bright red. Erythema extends up to above his knee. There is no warmth. Unable to feel pulses due to the edema. The area of the wound measures 12 x 10 cm x 0.3 deep in the area of the inner, medial lower leg. There are 2 smaller wounds superior to the main wound. Wound 1. Measures 1 x 1 cm superficial and the distal wound measures 0.7 x 0.6 cm and superficial. IMPRESSION/ REPORT/ PLAN Left lower extremity venous stasis ulcer complicated by delayed healing and cellulitis with edema and lymphedema in a in a phyllis diabetic patient. The wound was rinsed with saline dried and wound culture was obtained. As he is unable to tolerate any other products Xeroform was applied over all open areas. This covered by a KerraMax and then an abdominal pad. An Unna boot was applied CW MS was good after application. He was given 1 g of Rocephin IM mixed with lidocaine in the clinic. He will be placed on [id number] mg twice a day for 5 days. The wound culture showed results should be back by the time the doxycycline is done. The doxycycline will then be extended or he will be changed to another antibiotic. Olinda return on Tuesday morning for ongoing wound care. He will see his provider Florecita on Tuesday documented in this encounter Plan of Treatment Scheduled Referrals Name Type Priority Associated Diagnoses Order [facility] Internal Outpatient Referral Routine Varicose Vein L ower Expected: Medicine office Extremity With Ulcer 06/02 visit (clinic) And Inflammation Left (Millie roximate), (HCC) Expires: Morbid Obesity Body 06/16/19 21 Mass Index Greater Than Or Equal To 40 Adult (HCC) documented as of this encounter Procedures Procedure Name Priority Date/Time Associated Diagnosis Comme nts BACTERIAL CULTURE, Routine 06/15/2017 9:47 AM Varicose Vein Lo wer Results for this AEROBIC + SUSC CDT Extremity With Ulcer proce dure are in And Inflammation Left the re sults (HCC) section. documented in this encounter Results (ABNORMAL) Bacterial Culture, Aerobic + Susc Leg, Left (06/15/2017 9:47 AM CDT) Component Value Ref Test Analysis Performed At [facility] gist Range Method Time Signature Bacterial With Usual Crystal. 06/17/2017 [facility] Culture, (A) 9:34 AM CDT HEALTH Aerobic SYSTEM- [facility] Bacterial STREPTOCOCCUS DYSGALACTIAE SSP DYSGALACTIAE 06/17/2017 [facility] Culture, 4+ 9:34 AM CDT HEALTH Aerobic Susceptibilities not performed on this isolate. SYSTEM- (A) [facility] Bacterial STREPTOCOCCUS AGALACTIAE 06/17/2017 [facility] Culture, 4+ 9:34 AM CDT HEALTH Aerobic Susceptibilities not performed on this isolate. SYSTEM- (A) [facility] Specimen Anatomical Collection Method Collection Time Receive d Time (Source) Location / / Volume Laterality Skin (Leg, Left) 06/15/2017 9:47 AM 06/15 1:49 CDT PM CDT Comment: Specimen Source Site: Skin Lory Sousa APRN, C.N.P. LAB MICROBIOLOGY - GENERA L ORDERABLES Performing Organization Address City/State/ZIP Code Phon e Number [address] [id number] LAB documented in this encounter Visit Diagnoses Diagnosis Varicose Vein Lower Extremity With Ulcer And Inflammation Left (HCC) - Primary Morbid Obesity Body Mass Index Greater T whitmore Or Equal To 40 Adult (HCC) documented in this encounter Administered Medications Inactive Administered Medications - up to 3 most recent administrations Medication Order MAR Action Action Date Dose Rate Site cefTRIAXone 1 g Given 06/15/2017 9:57 AM CDT 1 g Other 1 g (rounded from 1,000 mg), intramuscular, Once, On Tue06/15/17 at 0945, For 1 dose, FOR IM INJECTION ONLYDO NOT GIVE IF PATIENT HAS LIDOCAINE ALLERGY, Drug Monitoring Program: Pharmacist to adjust medication order based on comorbities and indication. documented in this encounter Care Teams Edge Cutting Machine Operator Relationship Specialty Start Date End Date Elsewhere, Pcp PCP - General Family Medicine 06/15/17 documented as of this encounter
--- OUTSIDE RECORDS SUMMARY | 2021-12-11 07:57 | XMS_ITS | Encounter Summary ---
:1960 Author Organization [facility] Address [address] [place] [address] Care Team Providers Name Role Phone Elsewhere, Pcp Primary Care Provider Unavailable Reason for Visit Reason Comments Wound Check left leg Encounter Details Date Type Department Care Team Description 06/17/2017 Office Visit Department of Internal Lory Sousa Vari cose Vein Lower Extremity With Ulcer And Inflammation Left (HCC) (Primary Dx); Medicine in Shahana Hester APRN, C.N.P. Morbid Obesity Body Mass Index Greater T whitmore Or Equal To 40 Adult (HCC); [address] Hypertension Essential Primary; [address] [place], [place] Infection Bacterial [place] [phone] Social History Tobacco Use Types Packs/Day Years Used Date Smoking Tobacco: Never Smokeless Tobacco: Never Sex Assigned at Date Recorded Not on file documented as of this encounter Last Filed Vital Signs Vital Sign Reading Time Taken Comments Blood Pressure 150/90 06/17/2017 8:47 AM CDT Pulse 76 06/17/2017 8:47 AM CDT Temperature - - Respiratory Rate - - Oxygen Saturation - - Inhaled Oxygen Concentration - - Weight 145 kg (319 lb 0.1 oz) 06/17/2017 8:47 AM CDT Height - - Body Mass Index 45.01 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 - 06/17/2017 8:45 AM CDT Go to the ER at [facility]. Keep your appointment with me on Tuesday. Keep her appoint mirna [place] provider on Tuesday. documented in this encounter Progress Notes Lory Sousa APRN C.N.P. - 06/17/2017 8:45 AM CDT Chief Complaint Patient presents with ??? Wound Check left leg Julien Ridley is a 57 y.o. male returns for ongoing wound care of left lower extremity venous stasis ulcer complicated by delayed healing and infection. His wound culture grew out strep C. He was placed on Keflex 500 mg 4 times a day for 7 days. He is complaining today of having chills last night. He is overall not feeling well. He feels very sleepy during the day. He has pain in the leg. The wound area does not hurt. He also has left sciatic type pain with back pain shooting down his leg. He is taking gabapentin for this. He states the Unna boot caused his like to itch. He actually scratched his foot and telly blood through the bandage. When he was here on Tuesday he received 1 g of Rocephin was placed on doxycycline until the wound culture grew out the 2 different strep bacteria. He was then started on Keflex. Current Outpatient Prescriptions: ??? cephalexin (for_KEFLEX) 500 mg capsule, Take 1 capsule (500 mg total) by mouth 4 (four) times a day for 7 days., Disp: 28 capsule, Rfl: 0 ??? gabapentin (for_NEURONTIN) 100 mg capsule, , Disp: , Rfl: ??? gabapentin (for_NEURONTIN) 300 mg capsule, , Disp: , Rfl: ??? HYDROcodone-acetaminophen (for_NORCO) 5-325 mg per tablet, , Disp: , Rfl: Allergies Allergen Reactions ??? Dimethicone-Petrolatum Rash ??? [place] Rash ??? Mepilex Ag [Silver Sulfate-Foam Bandage] [...] hemilaminectomy with left fifth lumbar-first sacral diskectomy. Results for orders placed or performed in visit on 06/15/17 Bacterial Culture, Aerobic + Susc Leg, Left Result Value Ref Range Bacterial Culture, Aerobic With Usual Crystal. (A) Bacterial Culture, Aerobic (A) STREPTOCOCCUS DYSGALACTIAE SSP DYSGALACTIAE 4+ Susceptibilities not performed on this isolate. Bacterial Culture, Aerobic (A) STREPTOCOCCUS AGALACTIAE 4+ Susceptibilities not performed on this isolate. BP 150/90 (BP Location: Right arm, Patient Position: Sitting, Cuff Size: Large) Pulse 76 Wt (!) 144.7 kg BMI 45.47 kg/m?? temperature 97.6?? PHYSICAL EXAMINATION: GENERAL: He is well dressed. He appears quite tired SKIN: The entire left leg from the toes up to his thigh is red. There is less edema in the lower leg. There is edema around his knee and up into his thigh. He has a small cut on his dorsal lower foot, with dried blood, from scratching. He has venous stasis and hemosiderin changes. IMPRESSION/ REPORT/ PLAN Left lower extremity venous stasis ulcer complicated by a long history of delayed healing and bacterial infection with left leg cellulitis. The wound was cleansed with saline and Hibiclens rinse well and dried. The rest of his leg was rinsed with warm water and dried. Xeroform was applied over the wound. A large abdominal bandage was secured in place with a rolled gauze. A white knee high edema flow stocking was applied. I made a call to [facility] emergency department to let them know I was sending him to the ER for a right leg cellulitis. Patient is in agreement with this plan. He was escorted over to the ER in a wheelchair by nursing. documented in this encounter Plan of Treatment Not on filedocumented as of this encounter Visit Diagnoses Diagnosis Varicose Vein Lower Extremity With Ulcer And Inflammation Left (HCC) - Primary Morbid Obesity Body Mass Index Greater T whitmore Or Equal To 40 Adult (HCC) Hypertension Essential Primary Infection Bacterial documented in this encounter Care Teams Parts Room Associate Relationship Specialty Start Date End Date Elsewhere, Pcp PCP - General Family Medicine 06/15/17 documented as of this encounter
--- OUTSIDE RECORDS SUMMARY | 2021-12-11 07:58 | XMS_ITS | Encounter Summary ---
:1960 Author Organization [facility] Address [address] [place] [address] Care Team Providers Name Role Phone Unavailable Primary Care Provider Unavailable Encounter Details Date Type Department Care Team Description 03/14/2014 Hospital Encounter HX NO MAPPING Social History Tobacco Use Types Packs/Day Years Used Date Smoking Tobacco: Never Assessed Sex Assigned at Date Recorded Not on file documented as of this encounter Plan of Treatment Not on filedocumented as of this encounter Visit Diagnoses Not on filedocumented in this encounter
--- OUTSIDE RECORDS SUMMARY | 2021-12-11 07:58 | XMS_ITS | Encounter Summary ---
:1960 Author Organization [facility] Address [address] [place] [address] Care Team Providers Name Role Phone Unavailable Primary Care Provider Unavailable Encounter Details Date Type Department Care Team Description 06/18/2015 Hospital Encounter HX [facility] INTERNMED Galen Sousa V., [employer] WORKER, C.N.P. [address] [place] [address] (Wo rk) Social History Tobacco Use Types Packs/Day Years Used Date Smoking Tobacco: Never Assessed Sex Assigned at Date Recorded Not on file documented as of this encounter Last Filed Vital Signs Vital Sign Reading Time Taken Comments Blood Pressure 136/88 06/18/2015 10:43 AM CDT Pulse 68 06/18/2015 10:43 AM CDT Temperature - - Respiratory Rate 20 06/18/2015 10:43 AM CDT Oxygen Saturation - - Inhaled Oxygen Concentration - - Weight 146 kg (322 lb 5 oz) 06/18/2015 10:43 AM CDT Height 178 cm (5' 10.08) 06/18/2015 10:43 AM CDT Body Mass Index 46.14 06/18/2015 10:43 AM CDT documented in this encounter Progress Notes Gisselle Batista, L.P.N. - 06/18/2015 10:49 AM CDT Wound Care Wound Care Entered On: 06/18/2015 10:49 CDT Performed On: 06/18/2015 10:49 CDT by GISSELLE BATISTA LPN Integumentary Pain Symptoms : Yes GISSELLE BATISTA LPN - 06/18/2015 10:49 CDT [facility] POWER[facility] Document Id: [id number] CDT!3 Alexander Sousa APRN, C.N.P. - 06/18/2015 10:14 AM CDT [id number] HISTORY OF PRESENT ILLNESS Tank returns for ongoing wound care of bilateral lower extremity venous stasis ulcers complicated by history of edema, lymphedema, and cellulitis. He is currently taking his Levaquin for a Staph aureus and streptococcus group B infection. He is tolerating the Levaquin well. He has compression that he wears. He is not wearing it today dueto the wound care. PHYSICAL EXAMINATION SKIN: Right leg shows 3+ edema in the leg into the foot. Skin on the right he has he has a non-pressure chronic ulcer right lateral malleolus measuring 0.5 x 0.4. The wound is healing nicely. There is breakdown of the skin. No fat noted. No tunneling, undermining, odor, or drainage. The wound bed is epithelization with granulation. Left lower extremity shows 3+ edema. He has 3 non-pressure chronic ulcers on the left medial leg. The proximal wound measures 1 x 1. The 2 lower wounds are adjacent. Wound #1 measures 0.5 x 0.3 and wound #2 measures 0.5 x 0.4. All wound beds show good granulation with epithelization. No tunneling, undermining, odor, or drainage. They are skin breakdown wounds. IMPRESSION/REPORT/PLAN Bilateral lower extremity venous stasis ulcers which are chronic, non-pressure, complicated by infection. The wounds were cleansed with saline and PCMX, rinsed well and dried. Iodosorb and SoloSite in a 50/50 preparation were applied to all wound beds. Skin prep was used in the periwound skin. A sterile gauze was applied over the wound bed held in place with cover stretch tape. He will do daily dressing changes at home. He will wear compression. He does have pain in right ankle wound and a thin layer of lidocaine jelly 2% was applied to the wound bed prior to dressing. He will return on the in the afternoon for ongoing wound care. He has a wound care appointment at the [facility] on July 03. Alexander Sousa CNP/yi Electronically Signed By: ALEXANDER SOUSA APRN, CNP On: 06/18/2015 01:12 PM Source: [facility] [email or web address] Document Id: [id number] documented in this encounter Miscellaneous Notes Miscellaneous - Alexander Sousa APRN, C.N.P. - 06/18/2015 11:21 AM CDT Ambulatory Patient Summary [address] [id number] Visit Information Name: ARISTIDESJOSE GUADALUPE NATHAN [facility] Number: [id number] Current Date: 06/18/2015 11:21:02 Physicians Attending Provider: ALEXANDER SOUSA APRN, CNP Primary Care Provider: PCP, LIBAN JOSE GUADALUPE RIDLEY has been given the following list of follow-up instructions, medication list, and patient education materials: Follow-up Instructions Your Medications Here is a list of your medications. It is important to take your medications as directed. Use a pillbox or chart to help remind you to take your medications. Please let your doctor or nurse know if you have problems taking your medications. Medication/Strength How to Take Indications/Special Instructions/Comments/Notes for Patient Medication Changes/Routing ibuprofen (Advil) as needed for Pain levofloxacin (Levaquin 500 mg oral tablet) 1 Tablet(s), Oral, every 24 hours Stop Taking the Following Medications: Medication list as of 06-18-15 11:21 Attention: If you have any medications at home that are not on this list, DO NOT take them until youcontact your provider for clarification. Give a copy of your medication list to your primary care provider. Update your medication list any time medications or doses are changed and carry your medication list at all times in case of emergency. Electronically Signed By: ALEXANDER SOUSA APRN, CNP Signed On:18-JUN-2015 11:19:06 Your Allergies & Intolerances Substance Reaction Symptoms Category Comments silver containing compounds rash, itching Other Your Problem List Problem Status Onset Comments Herniated Disc Active 05/31/2001 Stasis Dermatitis Active 09/20/2007 Edema Active 04/23/2008 Eczema Active 04/24/2008 Ulcer of skin NOS Active 11/20/2009 Venous Stasis Ulcer with Inflammation Active 11/24/2009 Venous insufficiency NOS Active 03/16/2010 Cellulitis Leg R Active Cellulitis Leg L Active Exam General Medical NOS (GME) Active Hypertension (HTN) Chronic Active Reaction Allergic Active Active Lymphedema Secondary Active Insufficiency Venous Peripheral Active Hypertension(HTN)Venous Chronic W Ulcer And Inflammation Dionte Active Morbid Obesity Body Mass Index (BMI) >40 Adult Active Infection Bacterial Active Ulcer Ankle R Active Ulcer Leg L Active Edema Leg Chronic Active Your Upcoming Appointments Date Time Location Provider No Appointments found Attention: Contact your local Clinic if further appointment detail needed. Cellulitis You have an infection of the skin known as cellulitis. This usually starts with a scrape, cut, insect bite, blister or other opening in the skin which becomes infected. This is a serious condition. It must be watched closely to be sure the infection is not spreading. With antibiotic treatment, the size of the red area will gradually shrink in size until the skin returns to normal. This will take 7-10 days. The red area should never increase in size once the antibiotic medicine has been started. Occasionally, an infection will be resistant to one antibiotic and another one will have to be used. Home Care: 1) Limit the use of the affected part, since excess movement can cause the infection to spread. 2) If the infection is on your leg, walk as little as possible during the first few days of the treatment. Keep your leg elevated while sitting. This will reduce swelling. 3) Take all of the antibiotic medicine exactly as directed until it is gone. Be careful not to miss any doses, especially during the first seven days. Follow Up with your doctor or this facility as directed. Check the infected area daily for the warning signs listed below. Get Prompt Medical Attention if any of the following occur: -- Spreading area of redness -- Increasing swelling or pain -- Appearance of pus or drainage -- Fever over 100.4? F (38.0? C) oral, or over 101.4? F (38.6 C) rectal, after two days on antibiotics ?? [id number] Frank[facility] [employer], [address] [place] [address], [place] [address]. All rights reserved. This information is not intended as a substitute for professional medical care. Always follow your healthcare professional's instructions. Lymphedema The lymphatic system is made up of lymph vessels and lymph nodes, which carry a fluid called lymph. Lymph consists of waste from the cells. This fluid drains through lymph vessels under the skin to nearby lymph nodes. Lymph nodes filter waste products from the cells and kill any bacteria present before returning the lymph fluid to your blood circulation. You are probably aware of your lymph nodes when they became swollen and tender in your neck the lasttime you had a bad sore throat. Other major lymph nodes are found in the groin and in the armpits. When the lymph vessels are damaged, they cannot drain fluid from the bodys tissues. This causes the lymph fluid to back up and the affected arm or leg swells. This swelling is called lymphedema. The most common cause of damage to the lymph system is surgery or radiation for breast or testicularcancer. Other causes are repeated skin infections (cellulitis), hebert or injury to the arms or legs.It can take many years for symptoms of lymphedema to appear. Once present, lymphedema can become a chronic condition, lasting the persons whole life. Early signs of lymphedema include heaviness, stiffness, or aching in an arm or leg. The skin might look red. Shoes and rings may feel tight, and ankles and wrists might be less flexible. There is no cure for lymphedema but you can reduce your chance of getting it if you are at risk. And you can do things to keep it from worsening if you already have it. One method that is used to help prevent lymphedema from getting worse is a special type of massage that stimulates the flow of lymph (lymphatic massage). This is provided by licensed massage therapiststrained in this method. There are also exercises that you can do while wearing compression stockingsor bandages to help promote lymph drainage. For severe cases, surgery can be performed to permanently remove the extra swollen tissue. Once lymphedema is present, small skin injuries like a cut, a burn or an insect bite are more likelyto cause a skin infection. So, you need to take special care to avoid injury and to seek early treatment at first signs of skin infection. Home Care 1) Regularly wash the affected arm or leg and apply moisturizing lotion. 2) Protect yourself from skin injuries. 3) Use an electric razor instead of a razor blade to shave. 4) Dont carry a handbag with the affected arm. 5) If an arm is involved, dont have blood pressure taken or get injections or have blood drawn in the affected arm. Wear gloves when gardening. 6) If a leg is involved, dont cross your legs when sitting. Don't go barefoot. Follow Up with your doctor or as advised by our staff. Lymphedema changes the appearance of your body. This can be emotionally difficult to adjust to. You may benefit from a support group where practical advice and emotional support is offered. Individual counseling is another option. Get Prompt Medical Attention if any of the following occur: ?? Redness, swelling, pain in the involved arm or leg ?? Pus draining from a wound ?? Red streaks coming from a wound ?? Fever of 100.4?F (38?C) or higher, or as directed by your healthcare provider ?? [id number] [facility], [address] [place] [address], [place] [address]. All rights reserved. This information is not intended as a substitute for professional medical care. Always follow your healthcare professional's instructions. Understanding Chronic Venous Insufficiency When damaged valves or deep vein thrombosis causes ongoing leg swelling, blood begins to pool in theveins. This eventually causes chronic venous insufficiency (CVI). CVI cant be cured, but you can control leg swelling to reduce the likelihood of ulcers (sores). Recognizing the Symptoms ?? If you stand or sit with your feet down for long periods, your legs may ache or feel heavy. ?? Swollen ankles are possibly the most common symptom of CVI. ?? As swelling increases, the skin over your ankles may show red spots or a brownish tinge. The skinmay feel leathery or scaly, and may start to itch. ?? If swelling is not controlled, an ulcer (open wound) may form. What You Can Do Reduce your risk of developing ulcers by doing the following: ?? Increase blood flow back to your heart by elevating your legs, exercising daily, and wearing elastic stockings. ?? Boost blood flow in your legs by losing excess weight. ?? If you must stand or sit in 1 place for a period of time, keep your blood moving by wiggling yourtoes, shifting your body position, and rising up on the balls of your feet. ?? [id number] [facility], [address] [place] [address], [place] [address]. All rights reserved. This information is not intended as a substitute for professional medical care. Always follow your healthcare professional's instructions. Consider Using Patient Online Services Patient Online [employer] is a secure online and Mobile application that lets you: ?? View lab and test results ?? View portions of your medical record including clinical notes, immunizations and discharge summaries ?? Request an appointment or medication refill ?? Review your appointment schedule ?? Send secure messages to your care team Its easy to create an account if you dont have one. Go to [email or web address] and click on Create Your Account. Then, follow the directions to complete the online form. Youll be asked for your [facility] number which you can find at the top of this document. Your Goals/Additional instructions: This document has images extracted. Please consider using MovieSet for all your patient education needs. Source: [facility] POWERCHART Document Id: [id number] Miscellaneous - Alexander Sousa APRN, C.N.P. - 06/18/2015 11:21 AM CDT Ambulatory Discharge Medication List [address] [id number] Visit Information Name: ARISTIDESJOSE GUADALUPE NATHAN [facility] Number: [id number] Visit Date: 06/18/2015 11:21:01 Attending Provider: ALEXANDER SOUSA APRN [facility] Primary Care Provider: PCP, ELSEWHERE JOSHUA JOSE GUADALUPE ADAMS has been given the following list of medications: Your Medications It is important to take your medications as directed. Use a pill box or chart to help remind you to take your medications. Please let your doctor or nurse know if you have problems taking your medications. Medication/Strength How to Take Indications/Special Instructions/Comments/Notes for Patient Medication Changes/Routing ibuprofen (Advil) as needed for Pain levofloxacin (Levaquin 500 mg oral tablet) 1 Tablet(s), Oral, every 24 hours Stop Taking the Following Medications: Medication list as of 06-18-15 11:21 Attention: If you have any medications at home that are not on this list, DO NOT take them until youcontact your provider for clarification. Give a copy of your medication list to your primary care provider. Update your medication list any time medications or doses are changed and carry your medication list at all times in case of emergency. Electronically Signed By: ALEXANDER SOUSA APRN [employer] Signed On:18-JUN-2015 11:19:06 Additional Information: Source: [facility] POWERCHART Document Id: [id number] Miscellaneous - Gisselle Batista L.P.N. - 06/18/2015 10:43 AM CDT Adult Help Desk Representative Intake/History Adult Help Desk Representative Intake/History Entered On: 06/18/2015 10:49 CDT Performed On: 06/18/2015 10:43 CDT by GISSELLE BATITSA LPN Intake Chief Complaint : Wound care both lower legs Temperature Core : 36.2 DegC(Converted to: 97.2 DegF) (LOW) Peripheral Pulse Rate : 68 /min Respiratory Rate : 20 /min Systolic Blood Pressure : 136 mmHg Diastolic Blood Pressure : 88 mmHg NIBP Mean : 104 mmHg BP Location : Right upper extremity Blood Pressure Cuff Size : Large Height : 178 cm(Converted to: 5 ft 10 inch(es), 70 inch(es)) Actual Weight : 146.2 kg(Converted to: 322 lb 5 oz) Weight Source : Standing scale Dosing Weight Clinic : 146.2 kg Clinic BSA : 2.69 Body Mass Index : 46.14 kg/m2 GISSELLE BATISTA LPN - 06/18/2015 10:43 CDT General Info Information Given By : Patient Preferred Communication Mode : Verbal Languages : Romanian Is Patient Female and 13-50 no hysterectomy : No GISSELLE BATISTA LPN - 06/18/2015 10:43 CDT Subjective Pain Symptoms : Yes GISSELLE BATISTA LPN - 06/18/2015 10:43 CDT Pain Scale Pain Scale Verbal 0-10 : Open GISSELLE BATISTA LPN - 06/18/2015 10:43 CDT Pain Pain Assessment Grid Pain 1 Location : Lower leg Laterality : Right Intensity : 1 Quality : Aching GISSELLE BATISTA LPN - 06/18/2015 10:43 CDT (Comment: whole leg aches all the time, gets sharp pain at outer ankle area if touched [GISSELLE BATISTA LPN - 06/18/2015 10:43 CDT] ) Dependent Habits Exposure to Tobacco Smoke : Other: non smoker Smoking Status : Never smoker Tobacco 2A : No Tobacco Use/Currently Using : No Tobacco Use/Last 30 Days : No Tobacco Use/Last 12 months : No GISSELLE BATISTA LPN - 06/18/2015 10:43 CDT [facility] Document Id: [id number] CDT!40 documented in this encounter Plan of Treatment Not on filedocumented as of this encounter Visit Diagnoses Not on filedocumented in this encounter
--- OUTSIDE RECORDS SUMMARY | 2021-12-11 07:58 | XMS_ITS | Encounter Summary ---
:1960 Author Organization [facility] Address [address] [place] [address] Care Team Providers Name Role Phone Unavailable Primary Care Provider Unavailable Encounter Details Date Type Department Care Team Description 05/10/2014 Hospital Encounter HX [facility] INTERNMED Galen Sousa V., EMPLOYMENT TRAINER, C.N.P. [address] [place] [address] (Wo rk) Social History Tobacco Use Types Packs/Day Years Used Date Smoking Tobacco: Never Assessed Sex Assigned at Date Recorded Not on file documented as of this encounter Last Filed Vital Signs Vital Sign Reading Time Taken Comments Blood Pressure 148/86 05/10/2014 11:18 AM INSECT CONTROL AIDE Pulse 72 05/10/2014 11:18 AM INSECT CONTROL AIDE Temperature - - Respiratory Rate 18 05/10/2014 11:18 AM INSECT CONTROL AIDE Oxygen Saturation - - Inhaled Oxygen Concentration - - Weight 145 kg (318 lb 12.6 oz) 05/10/2014 11:18 AM INSECT CONTROL AIDE Height 178 cm (5' 10.08) 05/10/2014 11:18 AM INSECT CONTROL AIDE Body Mass Index 45.64 05/10/2014 11:18 AM INSECT CONTROL AIDE documented in this encounter Progress Notes Gisselle Batista L.P.N. - 05/10/2014 11:32 AM CST Wound Care Wound Care Entered On: 05/10/2014 11:32 INSECT CONTROL AIDE Performed On: 05/10/2014 11:32 INSECT CONTROL AIDE by GISSELLE BATISTA Integumentary Pain Symptoms : Yes GISSELLE BATISTA - 05/10/2014 11:32 INSECT CONTROL AIDE Source: [facility] POWERCHART Document Id: [id number] INSECT CONTROL AIDE!3 CT CONTROL AIDE Alexander Sousa APRN, C.N.P. - 05/10/2014 10:32 AM CST [id number] Tank presents to clinic today with no open wounds. He has 2 questions. The first question is what were the results of the ultrasound from [facility] in [place] in March. The second question is howcan he prevent any wounds for reopening. He does have a pair of old compression stockings that he isusing. He has no complaints of open wounds. He states that where his wounds were are tender, as the wounds had been on both inner malleolar areas of his legs. PHYSICAL EXAMINATION There are venous stasis and hemosiderin changes bilaterally, with scarred areas where the wounds hadbeen. There are no open areas noted. He has no edema in the leg. He has very defined calf muscles. IMPRESSION/REPORT/PLAN Venous stasis disease. I did give him a copy of the ultrasound report which showed severe incompetencies in various areas of both legs. I also gave him a prescription for Jobst-type zippered bilateral lower extremity compression garments to be measured by [facility]. I did not put the compression amount down because I do not knowwhat he would be able to tolerate, and I am looking for the professional at [facility] to help with the compression level. I also faxed an order to [employer] and called and left a message, getting a voicemail for them to call Mr. Ridley and set up an appointment for compression. A referral was sent to [facility] also through the clinic. He will return only if needed and will call Change Director himself if he does not hear from them either today or next week. Alexander Sousa CNP/yi Electronically Signed By: ALEXANDER SOUSA CNP On: 05/13/2014 07:55 AM Source: [facility] [id number] Document Id: [id number] CT CONTROL AIDE documented in this encounter Miscellaneous Notes Telephone Encounter - Conversion, Historical Provider Ser - 06/17/2015 11:21 AM CDT *Phone Message/Merry Document Contains Addenda Addendum by GSISELLE BATISTA LPN on June 17, 2015 15:59:56 CDT From: GISSELLE BATISTA LPN ( Wound Clinic Nurse) To: ALEXANDER SOUSA APRN [employer]LE SQL DEVELOPER; Sent: 06/17/2015 15:59:56 CDT Subject: FW: *Phone Message/Merry Addendum by GISSELLE BATISTA LPN on June 17, 2015 15:59:49 CDT Called pharmacy- they said patient picked up medication this afternoon. Called patient he was able to get his medication refilled today. From: VERENICE LAINEZ To: Wound Clinic Nurse; Sent: 06/17/2015 11:21:57 CDT ! Subject: *Phone Message/Merry Caller is: ( x ) Patient ( ) Mother ( ) Father ( ) Spouse ( ) Daughter ( ) Son ( ) Pharmacy ( ) Other: Physician: Patient MRN #: Reason for Call: Message: Patient said we called him yesterday that his refill would be filled. [facility] has not received it as of today, it's an antibiotic and he is out now and does not want to miss a dosage. Please call [phone] Advice/Action: Source used: ( ) Verbalizes understanding of instructions ( ) Instructed to call back if symptoms worsen or do not resolve ( ) Refused to see provider ( ) Appointment Scheduled ( ) OK to leave message on voice mail ( ) Patient told to expect return call: ( ) today ( ) tomorrow ( ) next work day ( ) Patient's email ( ) Patient told physician out of office, will call upon return call on ( ) ( ) Patient told physician out of office, routed to other physician ( ) Other ( ) Call back telephone number ( ) Call back cell phone number ( ) Source: [facility] POWERCHART Document Id: [id number] Telephone Encounter - Conversion, Historical Provider Ser - 06/04/2015 9:38 AM CST *Phone Message Document Contains Addenda Addendum by GISSELLE BATISTA LPN on 04 June 2015 16:37:58 INSECT CONTROL AIDE From: GISSELLE BATISTA LPN To: ALEXANDER SOUSA APRN, CNP; Sent: 06/04/2015 16:37:58 INSECT CONTROL AIDE Subject: FW: *Phone Message Addendum by GISSELLE BATISTA LPN on 04 June 2015 16:37:47 INSECT CONTROL AIDE Called patient- He was given appointment times available- Tuesday at 10:00 am, Tuesday at 11:00 am or Tuesday at 2:30pm. He would like to be scheduled for the Tuesday06/11/15 at 2:30. He has a pin whole site on outside of right ankle. Swelling in the calf area,with some pain. States he has had it for a couple weeks. Patient has been advised he should go to see a primary physician, on- call or urgent care or ER. He has been informed that Alexander is out of office until Tuesday06/09/15. Addendum by ALEXANDER SOUSA APRN, CNP on 04 June 2015 11:29:19 INSECT CONTROL AIDE From: ALEXANDER SOUSA APRN, CNP To: Wound Clinic Nurse; Sent: 06/04/2015 11:29:19 INSECT CONTROL AIDE Subject: RE: *Phone Message Make first available one hour appointment. Thank you Addendum by GISSELLE BATISTA LPN on 04 June 2015 11:23:56 INSECT CONTROL AIDE From: GISSELLE BATISTA LPN ([facility] Wound Clinic Nurse) To: ALEXANDER SOUSA APRN, CNP; GISSELLE BATISTA LPN; Sent: 06/04/2015 11:23:56 INSECT CONTROL AIDE Subject: FW: *Phone Message From: MARLIN MALDONADO ( [facility]) To: Wound Clinic Nurse; Sent: 06/04/2015 09:38:00 INSECT CONTROL AIDE Subject: *Phone Message Caller is: ( x ) Patient ( ) Mother ( ) Father ( ) Spouse ( ) Daughter ( ) Son ( ) Pharmacy ( ) Other: Physician: Patient MRN #: Reason for Call: Patient called to schedule an appt with Alexander. He has seen her before. Please call him at [phone] Message: Advice/Action: Source used: ( ) Verbalizes understanding of instructions ( ) Instructed to call back if symptoms worsen or do not resolve ( ) Refused to see provider ( ) Appointment Scheduled ( ) OK to leave message on voice mail ( ) Patient told to expect return call: ( ) today ( ) tomorrow ( ) next work day ( ) Patient's email ( ) Patient told physician out of office, will call upon return call on ( ) ( ) Patient told physician out of office, routed to other physician ( ) Other ( ) Call back telephone number ( ) Call back cell phone number ( ) [facility] Document Id: [id number] Miscellaneous - Alexander Sousa APRN, C.N.P. - 05/21/2014 12:00 AM INSECT CONTROL AIDE [id number] May 21, 2014 JOSE GUADALUPE RIDLEY [address] [place] [id number] : 1960 Dear Mr. Ridley: I am writing this letter on your behalf to explain that all testing that was done since you came to the clinic in December of 2013 has been medically necessary, not experimental or investigational. When you first arrived to the clinic on December 26, 2013, you had a long history of venous stasis,venous insufficiency with venous stasis ulcers on the bilateral lower medial malleolar area. You have had ulcerative breakdown since 2001. You had been seen at [facility] for a vein ablation. You have a long history of venous insufficiency, varicosities, and edema which develop into venous stasis ulcers. Wound cultures were done when you first arrived at the clinic due to the appearance of cellulitis on your lower extremities and infection in the wounds. You were placed on antibiotic therapy until the infection resolved. On December 28, you underwent a venous ultrasound to rule out any DVTs due to the amount of pain and edema you had. You had bilateral lower extremity venous Doppler which showed no evidence of DVTs, but you did have mildly enlarged inguinal nodes which were clinically correlated to the infection in your wounds. You were treated several times a week with selective debridement and sharp debridement with the ultrasonic mist therapy. You had standard wound care and you had compression. You were also sent to Curtis Avery M.D. as you had no primary provider, and you were told that you had hypertension and diabetes mellitus. I also referred you to [facility] for evaluation of your venous stasis disease. You did see Dr. Nacho Singh and Dr. Dunia Fernández, both on February 01, 2014. Thefinal diagnoses given to you by the [facility] providers were bilateral stasis dermatitis, bilateral venous ulcers secondary to venous insufficiency, status post left greater saphenous vein evulsion, status post SEPS surgery, and a history of recent treatment for cellulitis. As your wounds improved, you did not need to come in as often. The reason for the three time a week care was for good wound care with the cellulitis and to ensure compression. Your wounds did successfully heal. I did write a prescription for you to be seen by [facility] for a Jobst-type stockingto help with the varicosities and the venous insufficiency, thereby decreasing the chronic bilaterallower extremity edema you have to prevent further wounds from opening up. Please feel free to forward this letter on to your insurance company per their request. Please feel free to contact me at [phone] regarding any further questions or wound care issues that you have. Sincerely, Alexander Sousa CNP Department of Internal Medicine hrf Electronically Signed By: ALEXANDER SOUSA CNP On: 05/22/2014 09:06 AM Source: [facility] IVETTE Document Id: [id number] CT CONTROL AIDE Miscellaneous - Gisselle Batista L.P.N. - 05/10/2014 11:18 AM CST Adult Meter Tester Intake/History Adult Meter Tester Intake/History Entered On: 05/10/2014 11:32 INSECT CONTROL AIDE Performed On: 05/10/2014 11:18 INSECT CONTROL AIDE by GISSELLE BATISTA Intake Chief Complaint : Would like advice on protection- prevent breakdown. Temperature Core : 36.3 DegC(Converted to: 97.3 DegF) (LOW) Peripheral Pulse Rate : 72 /min Respiratory Rate : 18 /min Systolic Blood Pressure : 148 mmHg (HI) Diastolic Blood Pressure : 86 mmHg NIBP Mean : 107 mmHg BP Location : Left upper extremity Blood Pressure Cuff Size : Large Height : 178 cm(Converted to: 5 ft 10 inch(es), 70 inch(es)) Actual Weight : 144.6 kg(Converted to: 318 lb 13 oz) Weight Source : Standing scale Dosing Weight Clinic : 144.6 kg Clinic BSA : 2.67 Body Mass Index : 45.64 kg/m2 GISSELLE BATISTA - 05/10/2014 11:18 INSECT CONTROL AIDE General Info Information Given By : Patient Preferred Communication Mode : Verbal Languages : Upper Sorbian Is Patient Female and 13-50 no hysterectomy : No GISSELLE BATISTA 05/10/2014 11:18 INSECT CONTROL AIDE Subjective Pain Symptoms : Yes GISSELLE BATISTA 05/10/2014 11:18 INSECT CONTROL AIDE Pain Scale Pain Scale Verbal 0-10 : Open GISSELLE BATISTA 05/10/2014 11:18 INSECT CONTROL AIDE Pain Pain Assessment Grid Pain 1 Location : Ankle Laterality : Right Intensity : 1 Quality : Aching GISSELLE BATISTA 05/10/2014 11:18 INSECT CONTROL AIDE (Comment: pain inner (deep inside) ankle. Tender to the touch- all the time [GISSELLE BATISTA 05/10/2014 11:18 INSECT CONTROL AIDE] ) Dependent Habits Tobacco Use/Currently Using : No Tobacco Use/Last 12 months : No Exposure to Tobacco Smoke : Other: non smoker Smoking Status : Never smoker GISSELLE BATISTA 05/10/2014 11:18 INSECT CONTROL AIDE ID Screen Drug Resistant Organism : No Travel Within Last 21 Days : No GISSELLE BATISTA 05/10/2014 11:18 INSECT CONTROL AIDE Source: [facility] POWERCHART Document Id: [id number] INSECT CONTROL AIDE!41 CT CONTROL AIDE documented in this encounter Plan of Treatment Not on filedocumented as of this encounter Visit Diagnoses Not on filedocumented in this encounter
--- OUTSIDE RECORDS SUMMARY | 2021-12-11 07:58 | XMS_ITS | Encounter Summary ---
:1960 Author Organization [facility] Address [address] [place] [address] Care Team Providers Name Role Phone Unavailable Primary Care Provider Unavailable Encounter Details Date Type Department Care Team Description 02/21/2017 Telemedicine Department of Vascular Social History Tobacco Use Types Packs/Day Years Used Date Smoking Tobacco: Never Sex Assigned at Date Recorded Not on file documented as of this encounter Plan of Treatment Not on filedocumented as of this encounter Procedures Procedure Name Priority Date/Time Associated Diagnosis Comme nts VASCULAR IMAGE EXAM Routine 02/21/2017 1:02 PM Re sults for this ELECTRONIC RESOURCES LIBRARIAN procedure are i n the results section. documented in this encounter Results VASCULAR IMAGE EXAM (02/21/2017 1:02 PM ELECTRONIC RESOURCES LIBRARIAN) Specimen (Source) Anatomical Collection Method Collection Time Re ceived Time Location / / Volume Laterality 02/21/2017 1:00 PM ELECTRONIC RESOURCES LIBRARIAN Narrative [facility] - 02/21/2017 1:02 PM ELECTRONIC RESOURCES LIBRARIAN This order has been created and auto-finalized [...]
--- OUTSIDE RECORDS SUMMARY | 2021-12-11 07:58 | XMS_ITS | Encounter Summary ---
:1960 Author Organization [facility] Address [address] [place] [address] Care Team Providers Name Role Phone Unavailable [...] Comme nts VASCULAR IMAGE EXAM Routine 02/21/2017 1:55 PM Re sults for this MACHINE II TRIMMER procedure are i n the results section. documented in this encounter Results VASCULAR IMAGE EXAM (02/21/2017 1:55 PM MACHINE II TRIMMER) Specimen (Source) Anatomical Collection Method Collection Time Re ceived Time Location / / Volume Laterality 02/21/2017 1:55 PM MACHINE II TRIMMER Narrative [facility] - 02/21/2017 1:57 PM MACHINE II TRIMMER This order has been created and auto-finalized [...]
--- OUTSIDE RECORDS SUMMARY | 2021-12-11 07:58 | XMS_ITS | Encounter Summary ---
:1960 Author Organization [facility] Address [address] [place] [address] Care Team Providers Name Role Phone Unavailable Primary Care Provider Unavailable Encounter Details Date Type Department Care Team Description 08/01/2015 Hospital Encounter HX [facility] VASC WOUND CARE Amos Poole, CONS LABELING STRATEGIST, C.N.P., D.N.P., M.S. Social History Tobacco Use Types Packs/Day Years Used Date Smoking Tobacco: Never Assessed Sex Assigned at Date Recorded Not on file documented as of this encounter Last Filed Vital Signs Vital Sign Reading Time Taken Comments Blood Pressure - - Pulse - - Temperature - - Respiratory Rate - - Oxygen Saturation - - Inhaled Oxygen - - Concentration Weight 146 kg (322 lb 8.5 08/01/2015 10:28 Vital sig n result oz) AM CDT from Clinical No freddie. Height - - Body Mass Index 45.15 07/04/2015 1:06 PM CDT documented in this encounter Plan of Treatment Not on filedocumented as of this encounter Visit Diagnoses Not on filedocumented in this encounter
--- OUTSIDE RECORDS SUMMARY | 2021-12-11 07:58 | XMS_ITS | Encounter Summary ---
:1960 Author Organization [facility] Address [address] [place] [address] Care Team Providers Name Role Phone Unavailable Primary Care Provider Unavailable Encounter Details Date Type Department Care Team Description 03/20/2014 Hospital Encounter HX [facility]HB INTERNMED Galen Sousa V., FUNERAL PROFESSIONAL, C.N.P. [address] [place] [address] (Wo rk) Social History Tobacco Use Types Packs/Day Years Used Date Smoking Tobacco: Never Assessed Sex Assigned at Date Recorded Not on file documented as of this encounter Last Filed Vital Signs Vital Sign Reading Time Taken Comments Blood Pressure 138/86 03/20/2014 2:54 PM CONFIGURATOR Pulse 72 03/20/2014 2:54 PM CONFIGURATOR Temperature - - Respiratory Rate 18 03/20/2014 2:54 PM CONFIGURATOR Oxygen Saturation - - Inhaled Oxygen Concentration - - Weight 144 kg (318 lb 5.5 oz) 03/20/2014 2:54 PM CONFIGURATOR Height 178 cm (5' 10.08) 03/20/2014 2:54 PM CONFIGURATOR Body Mass Index 45.57 03/20/2014 2:54 PM CONFIGURATOR documented in this encounter Progress Notes Gisselle Batista, L.P.N. - 03/20/2014 2:57 PM CST Wound Care Wound Care Entered On: 03/20/2014 14:57 CONFIGURATOR Performed On: 03/20/2014 14:57 CONFIGURATOR by GISSELLE BATISTA Integumentary Pain Symptoms : Yes GISSELLE BATISTA - 03/20/2014 14:57 CONFIGURATOR Pain Pain Assessment Grid Pain 1 Location : Lower leg GISSELLE BATISTA - 03/20/2014 14:57 CONFIGURATOR [facility] Document Id: [id number] CONFIGURATOR!7 IGURATOR Alexander Sousa APRN, C.N.P. - 03/20/2014 2:09 PM CST [id number] HISTORY OF PRESENT ILLNESS Tank returns for ongoing wound care of bilateral lower extremity venous stasis ulcers. He recently went to the [facility] and had some vascular testing done. He has not received results of the testing. 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 He does wear compression. He does dailydressing changes with Medihoney. He presents today for ongoing evaluation of wounds. PHYSICAL EXAMINATION SKIN: The right lower extremity inner malleolar area wound measures 0.5 x 0.3. The wound bed is beefy red with granulating buds and epithelization. No tunneling, undermining, odor, or drainage. Left lower extremity wound measures 0.4 x 0.7. The wound bed is beefy red with granulation epithelization. No tunneling, undermining odor, or drainage. There are venous stasis and hemosiderin changes in bilateral periwound skin. There is trace edema in both legs. IMPRESSION/REPORT/PLAN Healing bilateral lower extremity venous stasis ulcers. Wounds were cleansed with saline, PCMX, rinsed well. The wounds were dried and Medihoney was appliedover the open areas only. The Medihoney was covered by 1/4 of ABD on each wound and held in place with a light Kerlix wrap. His compression was reapplied. He will return the beginning of April for ongoing wound care. He states he has to work long hours at [employer] prior to the holidays and would not be available for appointment until the first week inJanuary. He will call and make an appointment when he can come. Alexander Sousa CNP/yi Electronically Signed By: ALEXANDER SOUSA CNP On: 03/22/2014 11:27 AM Source: [facility] MHSDOLBEYNONRADSYS Document Id: [id number] IGURATOR documented in this encounter Miscellaneous Notes Telephone Encounter - Conversion, Historical Provider Ser - 04/24/2014 1:21 PM CST *Phone Message/Alexander Sousa Document Contains Addenda Addendum by ALEXANDER SOUSA CNP on 26 April 2014 11:07:53 CONFIGURATOR From: ALEXANDER SOUSA CNP To: GISSELLE BATISTA; Sent: 04/26/2014 11:07:53 CONFIGURATOR Subject: RE: *Phone Message/Alexander Sousa Thank you Addendum by GISSELLE BATISTA on 26 April 2014 10:55:29 CONFIGURATOR From: GISSELLE BATISTA To: ALEXANDER SOUSA CNP; Sent: 04/26/2014 10:55:29 CONFIGURATOR Subject: FW: *Phone Message/Alexander Sousa Addendum by GISSELLE BATISTA on 26 April 2014 10:55:20 CONFIGURATOR Patient scheduled for 11:00 Addendum by ALEXANDER SOUSA CNP on 26 April 2014 09:08:39 CONFIGURATOR From: ALEXANDER SOUSA CNP To: Wound Clinic Nurse; Sent: 04/26/2014 09:08:39 CONFIGURATOR Subject: RE: *Phone Message/Alexander Sousa Please call to schedule him for 05/10 Addendum by GISSELLE BATISTA on 26 April 2014 09:03:22 CONFIGURATOR From: GISSELLE BATISTA ( Wound Clinic Nurse) To: ALEXANDER SOUSA CNP; GISSELLE BATISTA; Sent: 04/26/2014 09:03:22 CONFIGURATOR Subject: FW: *Phone Message/Alexander Sousa From: VICTOR MANUEL JUDD ([facility] Assistant Child Care Teacher) To: Wound Clinic Nurse; Sent: 04/24/2014 13:21:31 CONFIGURATOR Subject: *Phone Message/Alexandersandor [place] Caller is: ( x ) Patient ( ) Mother ( ) Father ( ) Spouse ( ) Daughter ( ) Son ( ) Pharmacy ( ) Other: Physician: Alexander Sousa Patient MRN #: Reason for Call: Message: S Patient would like to be seen on 05/10 for wound care. B A R Please call patient back at [phone] to advise. Advice/Action: Source used: ( ) Verbalizes understanding [...] back cell phone number ( ) Source: [facility] POWERCHART Document Id: [id number] Miscellaneous - Gisselle Batista L.PKristineN. - 03/20/2014 2:54 PM CST Adult Coding Advisor Intake/History Adult Coding Advisor Intake/History Entered On: 03/20/2014 14:57 CONFIGURATOR Performed On: 03/20/2014 14:54 CONFIGURATOR by GISSELLE BATISTA Intake Chief Complaint : Wound care both lower legs Temperature Core : 36.3 DegC(Converted to: 97.3 DegF) (LOW) Peripheral Pulse Rate : 72 /min Respiratory Rate : 18 /min Systolic Blood Pressure : 138 mmHg Diastolic Blood Pressure : 86 mmHg NIBP Mean : 103 mmHg BP Location : Right upper extremity Blood Pressure Cuff Size : Large Height : 178 cm(Converted to: 5 ft 10 inch(es), 70 inch(es)) Actual Weight : 144.4 kg(Converted to: 318 lb 6 oz) Weight Source : Standing scale Dosing Weight Clinic : 144.4 kg Clinic BSA : 2.67 Body Mass Index : 45.58 kg/m2 LESTER GISSELLE - 03/20/2014 14:54 CONFIGURATOR General Info Information Given By : Patient Preferred Communication Mode : Verbal Languages : Pakistani Is Patient Female and 13-50 no hysterectomy : No LESTERGISSELLE - 03/20/2014 14:54 CONFIGURATOR Subjective Pain Symptoms : Yes BATISTAGISSELLE - 03/20/2014 14:54 CONFIGURATOR Pain Pain Assessment Grid Pain 1 Location : Lower leg Laterality : Right Intensity : 4 Quality : Burning, Sharp Alleviating Factors : Medication LESTERGISSELLE - 03/20/2014 14:54 CONFIGURATOR Dependent Habits Tobacco Use/Currently Using : No Tobacco Use/Last 12 months : No Exposure to Tobacco Smoke : Other: non smoker Smoking Status : Never smoker BATISTAGISSELLE - 03/20/2014 14:54 CONFIGURATOR ID Screen Drug Resistant Organism : No Travel Within Last 21 Days : No GISSELLE BATISTA 03/20/2014 14:54 CONFIGURATOR [facility] Document Id: [id number] CONFIGURATOR!40 IGURATOR Miscellaneous - Alexander Sousa APRN, C.N.P. - 03/20/2014 2:50 PM CST Ambulatory Patient Summary [address] [id number] Visit Information Name: JOSE GUADALUPE RIDLEY [facility] Number: [id number] Current Date: 03/20/2014 14:50:02 Physicians Attending Provider: ALEXANDER SOUSA CNP Primary Care Provider: PCP, UNASSIGNED - OW JOSHUAJOSE GUADALUPE has been given the following list of [...] Changes/Routing ibuprofen (Advil) as needed for Pain Stop Taking the Following Medications: Medication list as of 03-20-14 14:50 Attention: If you have any medications at [...] of emergency. Electronically Signed By: ALEXANDER SOUSA CNP Signed On:20-MAR-2014 14:49:29 Your Allergies & Intolerances Substance Reaction Symptoms [...] (HTN) Chronic Active Reaction Allergic Active Active Your Upcoming Appointments Date Time Location Provider No Appointments found Attention: Contact your local Clinic if further appointment detail needed. Chronic Venous Insufficiency: Treating Ulcers If leg swelling due to chronic venous insufficiency isnt controlled, an ulcer (open wound) can form.Although ulcers vary in size and shape, they usually appear on the inside of the ankle. Blood pools around the ankles. The area may look puffy or swollen, and the skin may dimple when pressed. Fluid leaks from the veins into surrounding tissue. The ankle may bulge, and the skin may glisten. An ulcer forms if the skin is broken by a bump or a scratch. The ulcer appears watery and may seep fluid. Your doctor or nurse may apply a special dressing to help the ulcer heal and protect it from infection. Treating an Ulcer ?? Visit your doctor. Ulcers need frequent medical care. Special dressings may be applied. You may be given antibiotics to fight infection. ?? Elevate your legs often to reduce swelling. The ulcer needs oxygen-rich blood to heal. This bloodcant reach the ulcer until swelling is reduced. When to Call Your Doctor You have an increase in pain. You develop a fever of 101.0?F or higher. The ulcer oozes discolored fluid or smells bad. Swelling increases suddenly or the dressing feels tight. ?? [id number] [facility], [address] [place] [address], [place] [address]. All rights reserved. This information is not intended as a substitute for professional medical care. Always follow your healthcare professional's instructions. Venous Leg Ulcer Arteries carry oxygenated blood from the heart to the rest of the body. Veins return the blood to the heart. When sitting or standing, venous blood in the legs must flow uphill to the heart. There are two waysthis happens. When you walk and move your legs, the contraction of the muscles has a pumping effect on the blood in the veins. The veins have one-way valves that prevent the backward flow of blood. When there is poor venous circulation (venous insufficiency), the one-way valves are damaged and blood does not flow uphill very well. This raises pressure in the veins and the tissues dont get enough oxygen. As the problem worsens, an area of skin near the ankle turns dark and an ulcer forms. This iscalled a venous stasis ulcer. These ulcers usually do not hurt unless they become infected. Venous stasis ulcers are treated with compression wraps, topical antibiotics and special dressings. Sometimes skin grafting is required. Once healed, compression stocking are used to assist the pumpingaction in the veins and to reduce swelling. Home Care ?? plainUse any special compression dressings or stockings as directed. ?? If you were advised to change your dressing, follow the directions of your doctor. There are manydifferent kinds of dressings for this problem and each is used differently. ?? Walk regularly. This improves circulation in your legs. ?? Maintain a healthy weight. If you are overweight, talk to your doctor about a weight loss program. ?? If you smoke, quit smoking. This will lessen your symptoms and lower your chance that the diseasewill get worse. Join a stop-smoking program or talk to your doctor for assistance. ?? Check your feet and legs for skin breaks or color changes. Report these to your doctor. This could be an early sign of an ulcer. ?? Wear comfortable, well-fitting shoes and socks. Do not use socks that are tight. If they leave a dent in your leg by the end of the day, they are too tight. ?? When standing, shift your weight from one leg to the other. ?? When sitting for long periods, elevate your feet. Move your feet and ankles often to activate your calf muscles. Get up and walk from time to time. Follow Up with your doctor as advised by our staff. Get Prompt Medical Attention if any of the following occur: ?? Pus or discharge coming from the ulcer ?? Pain in or around the ulcer ?? Redness or swelling of the leg around the ulcer ?? Fever of 100.4?F (38?C) or higher, or as directed by your healthcare provider ?? Shortness of breath or painful breathing ?? Chest pain, repeated cough, or coughing up blood ?? [id number] [facility], [address] [place] [address], [place] [address]. All rights reserved. This information is not intended as a substitute for professional medical care. Always follow your healthcare professional's instructions. Your Goals/Additional instructions: This document has images extracted. Please consider using [employer] for all your patient education needs. Source: [facility] POWERCHART Document Id: [id number] IGURATOR Miscellaneous - Alexander Sousa APRN, C.N.P. - 03/20/2014 2:50 PM CST Ambulatory Discharge Medication List [address] [id number] Visit Information Name: JOSE GUADALUPE RIDLEY [facility] Number: [id number] Visit Date: 03/20/2014 14:50:01 Attending Provider: ALEXANDER SOUSA CNP Primary Care Provider: PCP, UNASSIGNED - OW JOSHUA JOSE GUADALUPE ADAMS has been given [...] Changes/Routing ibuprofen (Advil) as needed for Pain Stop Taking the Following Medications: Medication list as of 03-20-14 14:50 Attention: If you have any medications at [...] of emergency. Electronically Signed By: ALEXANDER SOUSA CNP Signed On:20-MAR-2014 14:49:29 Additional Information: Source: [facility] POWERCHART Document Id: [id number] IGURATOR documented in this encounter Plan of Treatment Not on filedocumented as of this encounter Visit Diagnoses Not on filedocumented in this encounter
--- OUTSIDE RECORDS SUMMARY | 2021-12-11 07:58 | XMS_ITS | Encounter Summary ---
:1960 Author Organization [facility] Address [address] [place] [address] Care Team Providers Name Role Phone Unavailable Primary Care Provider Unavailable Encounter Details Date Type Department Care Team Description 02/21/2017 Hospital Encounter HX [facility] Amos Poole, CONS CONTACT LENS INSPECTOR, C.N.P., D.N.P., M.S. Social History Tobacco Use Types Packs/Day Years Used Date Smoking Tobacco: Never Sex Assigned at Date Recorded Not on file documented as of this encounter Last Filed Vital Signs Vital Sign Reading Time Taken Comments Blood Pressure 157/89 02/21/2017 12:35 Vital sign r esult PM DIE CASTING MACHINE MAINTAINER from Clinical No [facility]. Pulse 62 02/21/2017 12:35 Vital sign r esult PM DIE CASTING MACHINE MAINTAINER from [facility] No [facility]. Temperature - - Respiratory Rate - - Oxygen Saturation - - Inhaled Oxygen - - Concentration Weight 149 kg (327 lb 13.2 02/21/2017 12:34 Vital si gn result oz) PM DIE CASTING MACHINE MAINTAINER from [facility] No [facility]. Height 177.8 cm (5' 10) 02/21/2017 12:34 Vital sign result PM DIE CASTING MACHINE MAINTAINER from [facility] No [facility]. Body Mass Index 47.04 02/21/2017 12:34 PM DIE CASTING MACHINE MAINTAINER documented in this encounter Plan of Treatment Not on filedocumented as of this encounter Visit Diagnoses Not on filedocumented in this encounter
--- OUTSIDE RECORDS SUMMARY | 2021-12-11 07:58 | XMS_ITS | Encounter Summary ---
:1960 Author Organization [facility] Address [address] [place] [address] Care Team Providers Name Role Phone Unavailable Primary Care Provider Unavailable Encounter Details Date Type Department Care Team Description 01/24/2017 Hospital Encounter HX NO MAPPING Social History Tobacco Use Types Packs/Day Years Used Date Smoking Tobacco: Never Sex Assigned at Date Recorded Not on file documented as of this encounter Plan of Treatment Not on filedocumented as of this encounter Visit Diagnoses Not on filedocumented in this encounter
--- OUTSIDE RECORDS SUMMARY | 2021-12-11 07:58 | XMS_ITS | Encounter Summary ---
:1960 Author Organization [facility] Address [address] [place] [address] Care Team Providers Name Role Phone Unavailable Primary Care Provider Unavailable Encounter Details Date Type Department Care Team Description 07/04/2015 Hospital Encounter HX [facility] Brian ramirez, DIONISIO Neal APRN, C.N.P., R.N., C.W.O.C.N. Social History Tobacco Use Types Packs/Day Years Used Date Smoking Tobacco: Never Assessed Sex Assigned at Date Recorded Not on file documented as of this encounter Last Filed Vital Signs Vital Sign Reading Time Taken Comments Blood Pressure 141/88 07/04/2015 1:07 PM Vital sign result CDT from Clinical No [facility]. Pulse 67 07/04/2015 1:07 PM Vital sign result CDT from Clinical No [facility]. Temperature - - Respiratory Rate - - Oxygen Saturation - - Inhaled Oxygen - - Concentration Weight 146 kg (322 lb 15.6 07/04/2015 1:06 PM Vital sign result oz) CDT from Clinical No [facility]. Height 180 cm (5' 10.87) 07/04/2015 1:06 PM Vital s ign result CDT from Clinical No [facility]. Body Mass Index 45.22 07/04/2015 1:06 PM CDT documented in this encounter Plan of Treatment Not on filedocumented as of this encounter Visit Diagnoses Not on filedocumented in this encounter
--- OUTSIDE RECORDS SUMMARY | 2021-12-11 07:58 | XMS_ITS | Encounter Summary ---
:1960 Author Organization [facility] Address [address] [place] [address] Care Team Providers Name Role Phone Unavailable Primary Care Provider Unavailable Encounter Details Date Type Department Care Team Description 06/11/2015 Hospital Encounter HX [facility] INTERNMED Glaen Sousa V., ASSOCIATE PROFESSOR OF HISTORY, C.N.P. [address] [place] [address] (Wo rk) Social History Tobacco Use Types Packs/Day Years Used Date Smoking Tobacco: Never Assessed Sex Assigned at Date Recorded Not on file documented as of this encounter Last Filed Vital Signs Vital Sign Reading Time Taken Comments Blood Pressure 138/86 06/11/2015 2:20 PM FOREIGN EXCHANGE STUDENT COORDINATOR Pulse 80 06/11/2015 2:20 PM FOREIGN EXCHANGE STUDENT COORDINATOR Temperature - - Respiratory Rate 20 06/11/2015 2:20 PM FOREIGN EXCHANGE STUDENT COORDINATOR Oxygen Saturation - - Inhaled Oxygen Concentration - - Weight 147 kg (323 lb 10.2 oz) 06/11/2015 2:20 PM FOREIGN EXCHANGE STUDENT COORDINATOR Height 178 cm (5' 10.08) 06/11/2015 2:20 PM FOREIGN EXCHANGE STUDENT COORDINATOR Body Mass Index 46.33 06/11/2015 2:20 PM FOREIGN EXCHANGE STUDENT COORDINATOR documented in this encounter Progress Notes Gisselle Batista L.P.N. - 06/11/2015 2:27 PM CST Wound Care Wound Care Entered On: 06/11/2015 14:27 FOREIGN EXCHANGE STUDENT COORDINATOR Performed On: 06/11/2015 14:27 FOREIGN EXCHANGE STUDENT COORDINATOR by GISSELLE BATISTA LPN Integumentary Pain Symptoms : Yes GISSELLE BATISTA LPN - 06/11/2015 14:27 FOREIGN EXCHANGE STUDENT COORDINATOR Source: [facility] POWERCHART Document Id: [id number] FOREIGN EXCHANGE STUDENT COORDINATOR!3 IGN EXCHANGE STUDENT COORDINATOR Alexander Sousa APRN, C.N.P. - 06/11/2015 1:39 PM CST [id number] HISTORY OF PRESENT ILLNESS Tank is a 55-year-old male with bilateral lower extremity venous stasis ulcers in the setting of edema, lymphedema, obesity and a diagnosis of diabetes mellitus. The last time I saw a Tank was in May of 2014 when he was treated for a left lower extremity venous stasis ulcer. At that time, he had been referred to the [facility] forevaluation of venous stasis. He saw Dr. Dunia Fernández on February 01, 2014. He also was sent to Dr. Avery as he had no primary provider. Dr. Avery did diagnose him with hypertension and diabetes mellitus. Unfortunately, Mr. Ridley never followed up with any care. He also had bilateral ultrasounds onMarch 14, 2014 at [facility]. The ultrasound showed that he had bilateral deep venous valvular incompetency. It was recommended to him at that time that he be seen in the vascular Radiology for treatment options. I also sent Mr. Ridley to [facility] [employer] [employer] to be fit for Jobst stockings. He did get Jobst stockings and liners and has been wearing them ever since. He stated approximately 3 weeks ago he was working 10-hour shifts overnight at his primary place of employment which is [employer] standing on his feet. He stated his legs became quite swollen and he developed these wounds. He did call and speak to my nurse, Lucy, and Lucy recommended that he go to urgentcare as he felt his wounds are infected. Mr. Ridley chose not to and waited until my first openappointment which was today. Tank is complaining of quite a bit of pain in his right leg. He states the wound on his right ankle area is quite sore. He is taking Advil only for the pain. He states he has not had Advil in over a year as he is concerned that it will raise his blood pressure. He also stated that he has not sought continued medical care because bills sustained at the [facility] and at [place]. He stated he had over a $6000 dollar bill at the [facility] and has whittled it down to $2300. He stated his bill has gone to collections. PHYSICAL EXAMINATION VITAL SIGNS: Temperature 97.9, pulse 80, respiratory rate 20, blood pressure 138/86. Weight is 146.8kg, converted to 323 pounds and 10 ounces. GENERAL: Tired-appearing obese male. SKIN: The right lower extremity has 4+ edema. There is no pitting noted. On the posterior calf area,there is a large blister which is formed. There is erythema throughout the leg. There is no warmth. There is a wound on the ankle which measures approximately 1.5 x 5 with slough. There is negative Homans' sign. Left lower extremity has 3+ edema with a very pronounced Tanmay appearance. He has 3 wounds on the medial lower leg. The proximal wound measures approximately 2 x 1.5. The wound bed is 100% slough. The 2 distal wounds are adjacent to each other, both measuring approximately 0.5 x 0.8. The wound bed is slough. I am unable to palpate pedal pulses due to the edema and lymphedema in the leg. IMPRESSION/REPORT/PLAN 1. Bilateral lower extremity edema, lymphedema, venous insufficiency with venous stasis ulcers. 2. Probable cellulitis, right lower extremity. The right leg wounds were cleansed with saline and a wound culture was obtained of the ankle. All wounds were then washed with saline and PCMX, rinsed well and dried. Iodosorb/SoloSite was used in a 50/50 preparation and applied to the wounds, covered with sterile gauze. Skin prep in the periwound skin and cover stretch tape. He will wear his Jobst stockings on in the morning, off at night. He was given 1 g of Rocephin mixed with 1% lidocaine and started on Levaquin 500 mg daily. I gave him 5 pills until the wound culture comes back. He has a refill of 5 more pills should Levaquin be effective against any organism that should grow. I called the [facility] and he has an appointment with Odalys Mccall, Nurse Practitioner, at the [facility] on TuesdayJuly 03 at 2:00 p.m. I also gave him the phone number of the Wound and Vascular Center and told him he could call daily tosee if there was any cancellation so he could get in sooner. I then spoke with Anahi Smith in the business office for patient representation to ask if she wouldcall Mr. Ridley about his outstanding bill which is causing him to seek further medical treatment of underlying comorbidities including obesity, diabetes mellitus and any hypertension issues. Anahi did agree to call him tomorrow as he is currently in my exam room right now. All instructions were typed out and given to the patient. He verbalized understanding of all instructions. I also gave him a brochure on the [facility]. He has been there before so he is familiar with the area. He will do daily dressing changes at home and return in 1 week for ongoing wound care. Arthur Worthy Electronically Signed By: ALEXANDER SOUSA APRN, CNP On: 06/12/2015 12:42 PM Modified by and Electronically Signed by: ALEXANDER SOUSA APRN, CNP On: 06/12/2015 12:42 PM Source: [facility] MHSDOLBEYNONRADSYS Document Id: [id number] IGN EXCHANGE STUDENT COORDINATOR Alexander Sousa APRN, C.N.P. - 06/11/2015 1:39 PM CST [id number] PHONE CALL Tank's wound culture grew out Staphylococcus aureus and Streptococcus agalactiae group B. Both organisms are sensitive to levofloxacin. I did call Tank to let him know. I placed him on another 5 days of Levaquin 500 mg daily for a total of 10 days. He will return to wound care on June 17. Arthur Worthy Electronically Signed By: ALEXANDER SOUSA APRN, CNP On: 06/16/2015 08:56 AM Source: [facility] MHSDOLBEYNONRADSYS Document Id: [id number] documented in this encounter Miscellaneous Notes Miscellaneous - Alexander Sousa APRN, C.N.P. - 06/11/2015 3:13 PM CST Wound Treatment Plan 1. Change the dressings daily. 2.Gently remove the dressing, saturate with saline if needed. 3. Cleanse the wounds with saline and pat dry with gauze. 4. Apply the iodosorb/solosite to the wound beds and cover with gauze. 5.Apply the skin prep to the surrounding skin, allow to dry and then secure the dressing with the cover stretch tape. 7. You have an appointment with Odalys Tran for wound care on July 03 at 2:[address] *. call [phone] sooner to see if there is a cancellation so you can get in sooner. Source: [facility] POWERCHART Document Id: [id number] IGN EXCHANGE STUDENT COORDINATOR Miscellaneous - Alexander Sousa APRN, C.N.P. - 06/11/2015 3:12 PM CST Ambulatory Patient Summary [address] [id number] Visit Information Name: JOSHUA JOSE GUADALUPE BRYAN [facility] Number: [id number] Current Date: 06/11/2015 15:12:46 Physicians Attending Provider: ALEXANDER SOUSA APRN, CNP Primary Care Provider: PCP, ELSEWHERE [facility] JOSE GUADALUPE ADAMS has been given the [...] the Following Medications: Medication list as of 06-11-15 15:12 Attention: If you have any medications at [...] Signed By: ALEXANDER SOUSA APRN, CNP Signed On:11-JUN-2015 15:12:25 Your Allergies & Intolerances Substance Reaction Symptoms [...] Body Mass Index (BMI) >40 Adult Active Your Upcoming Appointments Date Time Location Provider No Appointments found Attention: Contact your local Clinic if further appointment detail needed. Venous Leg Ulcer Arteries carry oxygenated blood [...] and to reduce swelling. Home Care ?? Use any special compression dressings or stockings as [...] repeated cough, or coughing up blood ?? [id number] Frankie BerryChan [facility], [address] [place] [address], [place] [address]. All rights reserved. This information is not [...] if you dont have one. Go to [email or web address] and click on Create Your Account. Then, follow the directions to complete the online form. Youll be asked for your [facility] number which you can find at the top of this document. Your Goals/Additional instructions: [facility]: [facility] Document Id: [id number] IGN EXCHANGE STUDENT COORDINATOR Miscellaneous - Alexander Sousa APRN, C.N.P. - 06/11/2015 3:12 PM CST Ambulatory Discharge Medication List [address] [id number] Visit Information Name: ARISTIDESJOSE GUADALUPE NATHAN [facility] Number: [id number] Visit Date: 06/11/2015 15:12:46 Attending Provider: ALEXANDER SOUSA APRN, CNP Primary [...] the Following Medications: Medication list as of 06-11-15 15:12 Attention: If you have any medications at [...] Signed By: ALEXANDER SOUSA APRN, CNP Signed On:11-JUN-2015 15:12:25 Additional Information: Source: [employer] Document Id: [id number] IGN EXCHANGE STUDENT COORDINATOR Miscellaneous - Gisselle Batista L.P.N. - 06/11/2015 2:20 PM CST Adult Staffing Associate Intake/History Document Has Been Updated Adult Staffing Associate Intake/History Entered On: 06/11/2015 14:27 FOREIGN EXCHANGE STUDENT COORDINATOR Performed On: 06/11/2015 14:20 FOREIGN EXCHANGE STUDENT COORDINATOR by GISSELLE BATISTA LPN Intake Chief Complaint : Open areas on right lower leg. Pain and swelling in right lower leg. (has had for about 3 weeks) 3 little open areas on left lower leg. GISSELLE BATISTA LPN - 06/11/2015 14:31 FOREIGN EXCHANGE STUDENT COORDINATOR Temperature Core : 36.6 DegC(Converted to: 97.9 DegF) Peripheral Pulse Rate : 80 /min Respiratory Rate : 20 /min Systolic Blood Pressure : 138 mmHg Diastolic Blood Pressure : 86 mmHg NIBP Mean : 103 mmHg BP Location : Right upper extremity Blood Pressure Cuff Size : Large Height : 178 cm(Converted to: 5 ft 10 inch(es), 70 inch(es)) Actual Weight : 146.8 kg(Converted to: 323 lb 10 oz) Weight Source : Standing scale Dosing Weight Clinic : 146.8 kg Clinic BSA : 2.69 Body Mass Index : 46.33 kg/m2 GISSELLE BATISTA LPN - 06/11/2015 14:20 FOREIGN EXCHANGE STUDENT COORDINATOR General Info Information Given By : Patient Preferred Communication Mode : Verbal Languages : Gibralt[place] Is Patient Female and 13-50 no hysterectomy : No GISSELLE BATISTA LPN - 06/11/2015 14:20 FOREIGN EXCHANGE STUDENT COORDINATOR Subjective Pain Symptoms : Yes GISSELLE BATISTA LPN - 06/11/2015 14:20 FOREIGN EXCHANGE STUDENT COORDINATOR Pain Scale Pain Scale Verbal 0-10 : Open GISSELLE BATISTA LPN - 06/11/2015 14:20 FOREIGN EXCHANGE STUDENT COORDINATOR Pain Pain Assessment Grid Pain 1 Location : Lower leg Laterality : Right Intensity : 2 Quality : Aching, Burning, Sharp (Comment: Pain is sharp in the foot- the leg is burning, aching [GISSELLE BATISTA LPN - 06/11/2015 14:20 FOREIGN EXCHANGE STUDENT COORDINATOR] ) Alleviating Factors : Medication, Repositioning GISSELLE BATISTA LPN - 06/11/2015 14:20 FOREIGN EXCHANGE STUDENT COORDINATOR (Comment: last night it was a 10- had tears rolling. Pain comes and goes all the time. Range from 10then back to a 2. [GISSELLE BATISTA LPN - 06/11/2015 14:20 FOREIGN EXCHANGE STUDENT COORDINATOR] ) Dependent Habits Exposure to Tobacco Smoke : Other: non smoker Smoking Status : Never smoker Tobacco 2A : No Tobacco Use/Currently Using : No Tobacco Use/Last 30 Days : No Tobacco Use/Last 12 months : No GISSELLE BATISTA LPN - 06/11/2015 14:20 FOREIGN EXCHANGE STUDENT COORDINATOR Source: [facility] POWERCHART Document Id: [id number] FOREIGN EXCHANGE STUDENT COORDINATOR!3 IGN EXCHANGE STUDENT COORDINATOR documented in this encounter Plan of Treatment Not on filedocumented as of this encounter Procedures Procedure Name Priority Date/Time Associated Diagnosis Comme nts BACTERIAL CULTURE, Routine 06/11/2015 2:55 PM Res ults for this AEROBIC FOREIGN EXCHANGE STUDENT COORDINATOR procedure are i n the results section. documented in this encounter Results (ABNORMAL) Bacterial Culture, Aerobic (06/11/2015 2:55 PM FOREIGN EXCHANGE STUDENT COORDINATOR) [facility] gist Method Time Signature Wound Culture SA <=0.5 POWERCHART (POSITIVE) Wound Culture STREP B <=0.5 POWERCHART (POSITIVE) HX GS No PMN's POWERCHART seen. HX GS Moderate POWERCHART Gram Positive Cocci Comment: No PMN's seen. Moderate Gram Positive Cocci HXPre SA POWERCHART HXPre STREP B POWERCHART Comment: Many Staphylococcus aureus Few Streptococcus agalactiae (Group B) HXFinal SA POWERCHART HXFinal STREP B POWERCHART Comment: Many Staphylococcus aureus Few Streptococcus agalactiae (Group B) Specimen (Source) Anatomical Collection Method Collection Time Re ceived Time Location / / Volume Laterality Wound (Leg, 06/11/2015 2:55 PM Right) FOREIGN EXCHANGE STUDENT COORDINATOR Organism Antibiotic Method Susceptibility Staphylococcus aureus Ciprofloxacin SUSCEPTIBILITY, <=0.5: Hellen ceptible [facility] (MCG/ML) Staphylococcus aureus Clindamycin SUSCEPTIBILITY, 0.25: Susc eptible [facility] (MCG/ML) Staphylococcus aureus Daptomycin SUSCEPTIBILITY, 0.5: Susce ptible [facility] (MCG/ML) Staphylococcus aureus Doxycycline SUSCEPTIBILITY, <=0.5: Hellen ceptible [facility] (MCG/ML) Staphylococcus aureus D Test SUSCEPTIBILITY, Neg: Negat radha [facility] (MCG/ML) Staphylococcus aureus Erythromycin SUSCEPTIBILITY, <=0.25: Weaver sceptible [facility] (MCG/ML) Staphylococcus aureus Gentamicin SUSCEPTIBILITY, <=0.5: Hellen ceptible [facility] (MCG/ML) Staphylococcus aureus Levofloxacin SUSCEPTIBILITY, <=0.12: Weaver sceptible [facility] (MCG/ML) Staphylococcus aureus Linezolid SUSCEPTIBILITY, 2: Suscept ible [facility] (MCG/ML) Staphylococcus aureus Moxifloxacin SUSCEPTIBILITY, <=0.25: Weaver sceptible [facility] (MCG/ML) Staphylococcus aureus Oxacillin SUSCEPTIBILITY, 0.5: Susce ptible [facility] (MCG/ML) Staphylococcus aureus Rifampicin SUSCEPTIBILITY, <=0.5: Hellen ceptible [facility] (MCG/ML) Staphylococcus aureus Trimethoprim + SUSCEPTIBILITY, <=10: Susc eptible Sulfamethoxazole [facility] (MCG/ML) Staphylococcus aureus Tetracycline SUSCEPTIBILITY, <=1: Susce ptible [facility] (MCG/ML) Staphylococcus aureus Vancomycin SUSCEPTIBILITY, <=0.5: Hellen ceptible [facility] (MCG/ML) Streptococcus agalactiae Ampicillin SUSCEPTIBILITY, <=0.25: Susceptible (group b) [facility] (MCG/ML) Streptococcus agalactiae Benzylpenicillin SUSCEPTIBILITY, <=0.06 : Susceptible (group b) [facility] (MCG/ML) Streptococcus agalactiae Cefotaxime SUSCEPTIBILITY, <=0.12: Susceptible (group b) [facility] (MCG/ML) Streptococcus agalactiae Ceftriaxone SUSCEPTIBILITY, <=0.12: Susceptible (group b) [facility] (MCG/ML) Streptococcus agalactiae Clindamycin SUSCEPTIBILITY, >=1: Re sistant (group b) [facility] (MCG/ML) Streptococcus agalactiae D Test SUSCEPTIBILITY, Neg: Ne gative (group b) [facility] (MCG/ML) Streptococcus agalactiae Erythromycin SUSCEPTIBILITY, >=8: Re sistant (group b) [facility] (MCG/ML) Streptococcus agalactiae Levofloxacin SUSCEPTIBILITY, 1: Susc eptible (group b) [facility] (MCG/ML) Streptococcus agalactiae Linezolid SUSCEPTIBILITY, <=2: Weaver sceptible (group b) [facility] (MCG/ML) Streptococcus agalactiae Vancomycin SUSCEPTIBILITY, 0.5: Weaver sceptible (group b) [facility] (MCG/ML) Alexander Sousa APRN, C.N.P. LAB MICROBIOLOGY - GENERA L ORDERABLES Performing Organization Address City/State/ZIP Code Phon e Number POWERCHART documented in this encounter Visit Diagnoses Not on filedocumented in this encounter
--- OUTSIDE RECORDS SUMMARY | 2021-12-11 07:58 | XMS_ITS | Encounter Summary ---
:1960 Author Organization [facility] Address [address] [place] [address] Care Team Providers Name Role Phone Unavailable Primary Care Provider Unavailable Encounter Details Date Type Department Care Team Description 07/16/2016 Hospital Encounter HX [facility] Amos Poole, CONS ZOE, C.N.P., D.N.P., M.S. Social History Tobacco Use Types Packs/Day Years Used Date Smoking Tobacco: Never Sex Assigned at Date Recorded Not on file documented as of this encounter Plan of Treatment Not on filedocumented as of this encounter Visit Diagnoses Not on filedocumented in this encounter
--- OUTSIDE RECORDS SUMMARY | 2021-12-11 07:58 | XMS_ITS | Encounter Summary ---
:1960 Author Organization [facility] Address [address] [place] [address] Care Team Providers Name Role Phone Unavailable Primary Care Provider Unavailable Encounter Details Date Type Department Care Team Description 09/03/2015 Hospital Encounter HX RST VASC WOUND CARE Amos Poole, CONS ORTHO TECH, C.N.P., D.N.P., M.S. Social History Tobacco Use Types Packs/Day Years Used Date Smoking Tobacco: Never Assessed Sex Assigned at Date Recorded Not on file documented as of this encounter Last Filed Vital Signs Vital Sign Reading Time Taken Comments Blood Pressure - - Pulse - - Temperature - - Respiratory Rate - - Oxygen Saturation - - Inhaled Oxygen - - Concentration Weight 147 kg (324 lb 8.3 09/03/2015 8:27 AM Vital s ign result oz) CDT from Clinical No freddie. Height - - Body Mass Index 44.44 08/01/2015 12:29 PM CDT documented in this encounter Plan of Treatment Not on filedocumented as of this encounter Procedures Procedure Name Priority Date/Time Associated Comments Diagnosis V&IRAD VASCULAR & Routine 09/10/2015 11:35 Result s for this INTERVENTION AM CDT procedure are i n the results section. documented in this encounter Results V&IRAD Vascular & Intervention (09/10/2015 11:35 AM CDT) Anatomical Region Laterality Modality N/A X-Ray Angiography Specimen (Source) Anatomical Collection Method Collection Time Re ceived Time Location / / Volume Laterality 09/10/2015 11:35 AM CDT Narrative 09/10/2015 3:57 PM CDT 10-Sep-2015 11:35:00 ??Exam: V&IRAD Vascular & Intervention Indications: BILATERAL LOWER EXTREMITY U LTRASOUND-GUIDED SCLEROTHERAPY OF PERFORATORS AND LEFT LOWER EXTREMITY ANTERIOR ACCESSORY GREATER SAPHENOUS VEIN Bilateral lower extremity venous stasis with ulceration ORIGINAL REPORT - 10-Sep-2015 15:57:00 EXAM: V&IRAD Vascular & Intervention. SUMMARY: Foam sclerotherapy of right and left calf varicose veins, and the left anterior accessory great saphenous vein. Both legs were wrapped with JOSE bandages and placed in compression stockings. ?? TECHNIQUE/FINDINGS: Both legs were prepp ed and draped in standard sterile fashion. Under ultrasound guidance, the left anterior accessory great saphenous vein was accessed in the midthigh. 3% Sotradecol foam was made (1 mL of Sotradecol with 5 mL of air) and 5 mL of the foam were injected at the access site into the left AGSV. Using ultrasound pressure to distribute the foam and having the patient per form dorsi- and plantar flexion of his f oot, the foam was dispersed through the AGSV. Next, a varicose vein leading to the ginner helper under the active ulcer in the left medial calf was accessed. The acc ess site was in the midcalf. 3 mL of foa med Sotradecol were injected and ultrasound pressure was used to distribute it into the ginner helper and varicosities surrounding the ulcer. Next, the varicose vein s in the right medial upper calf were ac cessed under ultrasound guidance and 5 mL of foamed Sotradecol were used and dispersed in a similar fashion throughout varicosities leading to the right low calf under the area of healed ulcer. Two punctures were made on the left and one on the right. ??Steri-Strips were applied at the access sites and the feet were JOSE wrapped and placed in compression stockings. No immediate complications. Using ultrasound guidance to access vess el, patency was shown and after anesthetizing the skin with lidocaine the left anterior accessory great saphenous vein and veins in the right medial upper calf we re punctured successfully. A permanent i mage was created and stored. ?? PREPROCEDURE: Patient seen, evaluated, h istory reviewed, and approved for sedation. Airway, heart and lung exam satisfactory for sedation. Discussed risks, benefits, alternatives for procedure, and/or s edation, and obtained informed consent. Patient understands information and questions answered. Immediately prior to starting the procedure, in the presence of the assisting personnel, procedural pause was conducted to verify correct patient identity and verification of procedure to be performed, and as applicable, correct side and site, correct patient position, availability of implants, special equi pment, or special requirements, and all image and specimen identification data. Moderate sedation was administered by sedation nurse under my supervision. The roles and responsibilities of care team members, residents, and fellows were discussed. ?? Intraprocedural sedation time: 45 minute s Electronically signed by: ?? Yanet Perez M.D., ?? [phone] 10-Sep-2015 15:57 ?Shahana Stearns M.D. [phone] 10-Sep-2015 15:57 Procedure Note Jasmyn Perez M.D. - 06/30/2017Form atting of this note might be different from the original. 10-Sep-2015 11:35:00 Exam: V&IRAD Vascul ar & Intervention Indications: BILATERAL LOWER EXTREMITY U LTRASOUND-GUIDED SCLEROTHERAPY OF PERFORATORS AND LEFT LOWER EXTREMITY ANTERIOR ACCESSORY GREATER SAPHENOUS VEIN Bilateral lower extremity venous stasis with ulceration ORIGINAL REPORT - 10-Sep-2015 15:57:00 EXAM: V&IRAD Vascular & Intervention. SUMMARY: Foam sclerotherapy of right and left calf varicose veins, and the left anterior accessory great saphenous vein. Both legs were wrapped with JOSE bandages and placed in compression stockings. TECHNIQUE/FINDINGS: Both legs were prepp ed and draped in standard sterile fashion. Under ultrasound guidance, the left anterior accessory great saphenous vein was accessed in the midthigh. 3% Sotradecol foam was made (1 mL of Sotradecol with 5 mL of air) an d 5 mL of the foam were injected at the access site into the left AGSV. Using ultrasound pressure to distribute the foam and having the patient perform dorsi- and plantar flexion of his foot, the foam was disper sed through the AGSV. Next, a varicose vein leading to the ginner helper under the active ulcer in the left medial calf was accessed. The access site was in the midcalf. 3 mL of foamed Sotradecol were injected and ultr asound pressure was used to distribute it into the ginner helper and varicosities surrounding the ulcer. Next, the varicose veins in the right medial upper calf were accessed under ultrasound guidance and 5 mL of fo elenita Sotradecol were used and dispersed in a similar fashion throughout varicosities leading to the right low calf under the area of healed ulcer. Two punctures were made on the left and one on the right. Steri-Str ips were applied at the access sites and the feet were JOSE wrapped and placed in compression stockings. No immediate complications. Using ultrasound guidance to access vess el, patency was shown and after anesthetizing the skin with lidocaine the left anterior accessory great saphenous vein and veins in the right medial upper calf were punctured successfully. A permanent image was crea magui and stored. PREPROCEDURE: Patient seen, evaluated, h istory reviewed, and approved for sedation. Airway, heart and lung exam satisfactory for sedation. Discussed risks, benefits, alternatives for procedure, and/or sedation, and obtained informed consent. Patient understands in formation and questions answered. Immediately prior to starting the procedure, in the presence of the assisting personnel, procedural pause was conducted to verify correct patient identity and verification of pro cedure to be performed, and as applicable, correct side and site, correct patient position, availability of implants, special equipment, or special requirements, and all image and specimen identification data. Moderate s edation was administered by sedation nurse under my supervision. The roles and responsibilities of care team members, residents, and fellows were discussed. Intraprocedural sedation time: 45 minute s Electronically signed by: Yanet Perez M.D., [phone] 10-Sep-2015 15: 57 Shahana Stearns M.D. [phone] 10-Sep-2015 15:57 Odalys London APRN, C.N.P., R.N., C.W.O.C.N. IMG IR PROCEDURES documented in this encounter Visit Diagnoses Not on filedocumented in this encounter
--- OUTSIDE RECORDS SUMMARY | 2021-12-11 07:58 | XMS_ITS | Encounter Summary ---
:1960 Author Organization [facility] Address [address] [place] [address] Care Team Providers Name Role Phone Unavailable Primary Care Provider Unavailable Encounter Details Date Type Department Care Team Description 12/11/2015 Hospital Encounter HX NO MAPPING Social History Tobacco Use Types Packs/Day Years Used Date Smoking Tobacco: Never Assessed Sex Assigned at Date Recorded Not on file documented as of this encounter Plan of Treatment Not on filedocumented as of this encounter Visit Diagnoses Not on filedocumented in this encounter
--- OUTSIDE RECORDS SUMMARY | 2021-12-11 07:58 | XMS_ITS | Encounter Summary ---
:1960 Author Organization [facility] Address [address] [place] [address] Care Team Providers Name Role Phone Unavailable [...] 02/21/2017 1:02 PM Re sults for this ENGINEER CHIEF procedure are i n the results section. documented in this encounter Results VASCULAR IMAGE EXAM (02/21/2017 1:02 PM ENGINEER CHIEF) Specimen (Source) Anatomical Collection Method Collection Time Re ceived Time Location / / Volume Laterality 02/21/2017 1:00 PM ENGINEER CHIEF Narrative [facility] - 02/21/2017 1:02 PM ENGINEER CHIEF This order has been created and auto-finalized [...]
--- OUTSIDE RECORDS SUMMARY | 2021-12-11 07:58 | XMS_ITS | Encounter Summary ---
:1960 Author Organization [facility] Address [address] [place] [address] Care Team Providers Name Role Phone Unavailable Primary Care Provider Unavailable Encounter Details Date Type Department Care Team Description 09/10/2015 Hospital Encounter HX NO MAPPING Social History Tobacco Use Types Packs/Day Years Used Date Smoking Tobacco: Never Assessed Sex Assigned at Date Recorded Not on file documented as of this encounter Plan of Treatment Not on filedocumented as of this encounter Visit Diagnoses Not on filedocumented in this encounter
--- OUTSIDE RECORDS SUMMARY | 2021-12-11 07:58 | XMS_ITS | Encounter Summary ---
:1960 Author Organization [facility] Address [address] [place] [address] Care Team Providers Name Role Phone Unavailable Primary Care Provider Unavailable Encounter Details Date Type Department Care Team Description 06/11/2015 Hospital Encounter HX NO MAPPING Lory Sousa V., APR N, C.N.P. 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 However, the narrative phrase printed from the coding software may appear abbreviated, or result in slightly different terminology. Coded By: [place] LAINEZ Date Saved: 06/20/2015 12:40 pm Source: [facility]ENTER[facility] Communications Document Id: [id number] documented in this encounter Plan of Treatment Not on filedocumented as of this encounter Visit Diagnoses Not on filedocumented in this encounter
--- OUTSIDE RECORDS SUMMARY | 2021-12-11 07:58 | XMS_ITS | Encounter Summary ---
:1960 Author Organization [facility] Address [address] [place] [address] Care Team Providers Name Role Phone Unavailable [...] Comme nts VASCULAR IMAGE EXAM Routine 02/21/2017 1:00 PM Re sults for this COFFEE WEIGHER procedure are i n the results section. documented in this encounter Results VASCULAR IMAGE EXAM (02/21/2017 1:00 PM COFFEE WEIGHER) Specimen (Source) Anatomical Collection Method Collection Time Re ceived Time Location / / Volume Laterality 02/21/2017 1:00 PM COFFEE WEIGHER Narrative [facility] - 02/21/2017 1:02 PM COFFEE WEIGHER This order has been created and auto-finalized [...]
--- OUTSIDE RECORDS SUMMARY | 2021-12-11 07:59 | XMS_ITS | Encounter Summary ---
:1960 Author Organization [facility] Address [address] [place] [address] Care Team Providers Name Role Phone Unavailable Primary Care Provider Unavailable Encounter Details Date Type Department Care Team Description 05/17/2011 Hospital Encounter HX NO MAPPING Caroline Tong M.B.B.S. [phone] [facility] RAJWINDER Hector [phone] (Wo rk) Social History Tobacco Use Types Packs/Day Years Used Date Smoking Tobacco: Never Assessed Sex Assigned at Date Recorded Not on file documented as of this encounter Plan of Treatment Not on filedocumented as of this encounter Visit Diagnoses Not on filedocumented in this encounter
--- OUTSIDE RECORDS SUMMARY | 2021-12-11 07:59 | XMS_ITS | Encounter Summary ---
:1960 Author Organization [facility] Address [address] [place] [address] Care Team Providers Name Role Phone Unavailable Primary Care Provider Unavailable Encounter Details Date Type Department Care Team Description 05/14/2011 Hospital Encounter HX [facility] Zoila Vivar a, ZOE, C.N.P. Social History Tobacco Use Types Packs/Day Years Used Date Smoking Tobacco: Never Assessed Sex Assigned at Date Recorded Not on file documented as of this encounter Last Filed Vital Signs Vital Sign Reading Time Taken Comments Blood Pressure 150/88 05/14/2011 8:37 AM CAMPAIGN MARKETING MANAGER Pulse - - Temperature - - Respiratory Rate - - Oxygen Saturation - - Inhaled Oxygen Concentration - - Weight - - Height - - Body Mass Index - - documented in this encounter Progress Notes Merary Vivar - 05/14/2011 12:00 AM CST [id number] CHIEF COMPLAINT/REASON FOR VISIT Wound care HISTORY OF PRESENT ILLNESS Patient has venous stasis insufficiency with a venous ulcer on his left medial malleolus. Apligraf was applied 1 week ago. However patient removed bandage approximately 5 days later and washed the area as he could not stand it anymore. He has then since taken a shower daily, washed the area, scrubbed the area, and has been applying Promogran, a small amount of Telfa, and will lightly wrap with Kerlix and then wear his compression socks. He is wondering if we can do another Apligraf and that it would only have to stay on for approximately 3 days. He denies any other concern or complaint but he does state that he does not want a dressing where he would not be able to shower on a regular basis even with a shower leg bag. Current meds, allergies and vitals reviewed EMR dated 05/14/2011 no changes. PHYSICAL EXAM GENERAL: This is an obese, well-developed 51-year-old male who is non-ill appearing in no acute distress. EXTREMITIES: Left lower extremity shows a wound of the medial malleolus that is approximately 1 x 1 x 0.3 cm. Wound bed is 100% loosely yellow adherent slough. Skyla-wound is slightly erythematous. There is significant hemosiderin staining, scaling and the skin is extremely dry. PROCEDURE: During this procedure the universal protocol was utilized. The patient's identity was confirmed by no less than two patient identifiers, correct procedure was verified, correct site was verified and marked as applicable and a final pause was completed. 4% lidocaine was applied to the wound bed. Patient did sit for approximately 15 minutes before sharp debridement of curette was done to remove the yellow slough. Small amount of sanguineous discharge was noted which was easily stopped with direct pressure of dry gauze. Promogran was applied to the wound bed. I did apply Aquaphor to his periwound of the dry area. Then covered the Promogran with Telfa and then wrapped lightly with Kerlix. I did give the patient Jobst stockings as he is in need of them due to his other pairs are old and do not have the correct compression. Patient will follow up in approximately 10 days. IMPRESSION/REPORT/PLAN Venous stasis insufficiency with ulcer. Please see note above. Discussed with patient at length that we will not try another Apligraf as it cannot be washed for at least a week and as he does not want that, he is not a candidate for further Apligraf. I encouraged him to let me know if things change. We will order him supplies for current dressing change as noted above and he will follow up as directed above. Juliann Pappas, dario R.NKristine, F.N.P.,B.C. Electronically Signed By: MERARY VIVAR NP On: 05/22/2011 04:22 PM Source: [facility] [id number] Document Id: [id number] AIGN MARKETING MANAGER documented in this encounter Miscellaneous Notes Miscellaneous - Romie Stephenson, R.N. - 05/14/2011 8:37 AM CST Ambulatory Vitals Height Weight Ambulatory Vitals Height Weight Entered On: 05/14/2011 8:37 CAMPAIGN MARKETING MANAGER Performed On: 05/14/2011 8:37 CAMPAIGN MARKETING MANAGER by ROMIE STEPHENSON Vitals/Ht/Wt Systolic Blood Pressure : 150mmHg (HI) Diastolic Blood Pressure : 88mmHg NIBP Mean : 109mmHg BP Location : Right upper extremity ROMIE STEPHENSON - 05/14/2011 8:37 CAMPAIGN MARKETING MANAGER Source: Yes[employer] Document Id: [id number] CAMPAIGN MARKETING MANAGER!6 AIGN MARKETING MANAGER Miscellaneous - Romie Stephenson R.N. - 05/14/2011 8:18 AM CST Adult Copper Plate Lithographer Intake/History Adult Copper Plate Lithographer Intake/History Entered On: 05/14/2011 8:20 CAMPAIGN MARKETING MANAGER Performed On: 05/14/2011 8:18 CAMPAIGN MARKETING MANAGER by ROMIE STEPHENSON Intake BP Location : Right upper extremity ROMIE STEPHENSON - 05/14/2011 8:37 CAMPAIGN MARKETING MANAGER Chief Complaint : wound care Temperature Oral : 36.7C(Converted to: 98.1DegF) Systolic Blood Pressure : 142mmHg (HI) Diastolic Blood Pressure : 90mmHg (HI) NIBP Mean : 107mmHg ROMIE STEPHENSON - 05/14/2011 8:18 CAMPAIGN MARKETING MANAGER Subjective Pain Symptoms : Yes ROMIE STEPHENSON - 05/14/2011 8:18 CAMPAIGN MARKETING MANAGER Pain Pain Assessment Grid Pain 1 Location : Lower leg Laterality : Left ROMIE STEPHENSON - 05/14/2011 8:18 CAMPAIGN MARKETING MANAGER Dependent Habits Tobacco Use/Currently Using : No Exposure to Tobacco Smoke : Other: non smoker Smoking Status : Never smoker ROMIE STEPHENSON - 05/14/2011 8:18 CAMPAIGN MARKETING MANAGER Allergy Allergies (Active) NKA Estimated Onset Date: Unspecified ; Created By: CLARISA MARAVILLA; Reaction Status: Active ;Category: Drug ; Substance: NKA ; Type: Allergy ; Updated By: CLARISA MARAVILLA; Source: Patient; Reviewed Date: 05/14/2011 8:18 CAMPAIGN MARKETING MANAGER Source: [facility] [employer] Document Id: [id number] CAMPAIGN MARKETING MANAGER!3 AIGN MARKETING MANAGER documented in this encounter Plan of Treatment Not on filedocumented as of this encounter Visit Diagnoses Not on filedocumented in this encounter
--- OUTSIDE RECORDS SUMMARY | 2021-12-11 07:59 | XMS_ITS | Encounter Summary ---
:1960 Author Organization [facility] Address [address] [place] [address] Care Team Providers Name Role Phone Unavailable Primary Care Provider Unavailable Encounter Details Date Type Department Care Team Description 04/06/2011 Hospital Encounter [facility]X [facility] Zoila Vivar a, ZOE, C.N.P. Social History Tobacco Use Types Packs/Day Years Used Date Smoking Tobacco: Never Assessed Sex Assigned at Date Recorded Not on file documented as of this encounter Last Filed Vital Signs Vital Sign Reading Time Taken Comments Blood Pressure 160/96 04/06/2011 10:27 AM SCREWHEAD STONER AND POLISHER Pulse - - Temperature - - Respiratory Rate - - Oxygen Saturation - - Inhaled Oxygen Concentration - - Weight - - Height - - Body Mass Index - - documented in this encounter Progress Notes Merary Vivar - 04/06/2011 12:00 AM CST [id number] Patient is here for wound care. HISTORY OF PRESENT ILLNESS Patient has a history of venous stasis insufficiency with ulcer. Currently has a wound in his left leg just superior to the medial malleolus. He has been treating it for quite some time. Please see prior dictation for full information. He is here for a dressing change, possible Apligraf application. Patient notes that he is unable to take any time off and actually is hesitant with Apligraf application. He would like to wait a few weeks once his job slows down. He has been changing his dressing daily. He did note some significant pain after last debridement. Currently he has no pain and no other concerns. CURRENT MEDICATIONS Reviewed EMR dated 04/06/11, no changes ALLERGIES Reviewed EMR dated 04/06/11, no changes VITAL SIGNS Reviewed EMR dated 04/06, no changes PHYSICAL EXAM This is an obese, well-developed 51-year-old male whom is jyx-vcx-aikjnzlbk, in no acute distress. Examination of bilateral lower extremities shows significant hemosiderin staining. There is no edema. There is an open wound of his left lower extremity just superior to his medial malleolus that is approximately 1 x 1 x 0.4 cm. Wound bed is 100% granulating tissue. There is no undermining or tunneling. No sign of infection. There is a small amount of serous drainage noted. Periwound is dry; however, no other open areas noted. PROCEDURE: Area was cleansed with normal saline. Moisturization was applied to the periwound. Then applied Medihoney, a nonadhesive Telfa and some Sarah. IMPRESSION / REPORT / PLAN Venous stasis insufficiency with ulcer Plan: Patient will change dressing on a daily basis as noted. I did also let him know that he does not need to change his dressing every day if there is no drainage. We will order supplies to be delivered to his home. I did suggest to patient that we do Apligraf in the next 3 to 4 weeks as he has been dealing with this for close to a year. Patient agreed and he will let me know when he would like to schedule that. Encouraged him to call me with any other questions or concerns. Juliann Pappas, akg Anyi, F.N.P.,B.C. Electronically Signed By: MERARY VIVAR SOLAR PHOTOVOLTAIC SYSTEMS ENGINEER On: 04/13/2011 08:58 AM Source: [facility] MHSDOLBEYNONRADSYS Document Id: [id number] WHEAD STONER AND POLISHER documented in this encounter Miscellaneous Notes Miscellaneous - Romie Stephenson R.N. - 04/06/2011 10:27 AM CST Ambulatory Vitals Height Weight Ambulatory Vitals Height Weight Entered On: 04/06/2011 10:27 SCREWHEAD STONER AND POLISHER Performed On: 04/06/2011 10:27 SCREWHEAD STONER AND POLISHER by ROMIE STEPHENSON Vitals/Ht/Wt Systolic Blood Pressure : 160mmHg (HI) Diastolic Blood Pressure : 96mmHg (>HHI) NIBP Mean : 117mmHg ROMIE STEPHENSON - 04/06/2011 10:27 SCREWHEAD STONER AND POLISHER Source: [employer] Document Id: [id number] SCREWHEAD STONER AND POLISHER!5 WHEAD STONER AND POLISHER Miscellaneous - Romie Stephenson RKristineN. - 04/06/2011 10:23 AM CST Adult Circulation Crew Leader Intake/History Adult Circulation Crew Leader Intake/History Entered On: 04/06/2011 10:27 SCREWHEAD STONER AND POLISHER Performed On: 04/06/2011 10:23 SCREWHEAD STONER AND POLISHER by ROMIE STEPHENSON Intake Chief Complaint : wound care Temperature Oral : 36.5C(Converted to: 97.7DegF) Systolic Blood Pressure : 164mmHg (>HHI) Diastolic Blood Pressure : 98mmHg (>HHI) NIBP Mean : 120mmHg ROMIE STEPHENSON - 04/06/2011 10:23 SCREWHEAD STONER AND POLISHER Subjective Pain Symptoms : No ROMIE STEPHENSON - 04/06/2011 10:23 SCREWHEAD STONER AND POLISHER Dependent Habits Tobacco Use/Currently Using : No Exposure to Tobacco Smoke : Other: non smoker Smoking Status : Never smoker Alcohol Use : Yes ROMIE STEPHENSON - 04/06/2011 10:23 SCREWHEAD STONER AND POLISHER Allergy Allergies (Active) NKA Estimated Onset Date: Unspecified ; Created By: CLARISA MARAVILLA; Reaction Status: Active ;Category: Drug ; Substance: NKA ; Type: Allergy ; Updated By: CLARISA MARAVILLA; Source: Patient; Reviewed Date: 04/06/2011 10:23 SCREWHEAD STONER AND POLISHER Source: [employer] Document Id: [id number] SCREWHEAD STONER AND POLISHER!14 WHEAD STONER AND POLISHER documented in this encounter Plan of Treatment Not on filedocumented as of this encounter Visit Diagnoses Not on filedocumented in this encounter
--- OUTSIDE RECORDS SUMMARY | 2021-12-11 07:59 | XMS_ITS | Encounter Summary ---
:1960 Author Organization [facility] Address [address] [place] [address] Care Team Providers Name Role Phone Unavailable Primary Care Provider Unavailable Encounter Details Date Type Department Care Team Description 04/20/2011 Hospital Encounter HX [facility] Zoila [...] - Inhaled Oxygen Concentration - - Weight 151 kg (333 lb 1.8 oz) 04/20/2011 8:45 AM ATHLETIC TURF WORKER Height - - Body Mass Index - - documented in this encounter Progress Notes Merary Vivar - 04/20/2011 12:00 AM CST [id number] Patient is here for wound care. Patient has venous stasis insufficiency with an ulcer on his left lower leg. We have been treating it for a significant amount of time and he is here for recheck. Denies any new concern or complaint. Current medications, allergies and vitals reviewed EMR dated 04/20/11 and no changes. PHYSICAL EXAM This is an obese, well developed 51-year-old male whom is non-ill appearing in no acute distress. EXTREMITY: Left lower leg medially shows a wound that is 1.5 x 1.8 x 0.2 cm. Wound bed is 50% granulating tissue and 50% loosely yellow adherent slough. Periwound is slightly erythematous and extremely dry. There is bilateral hemosiderin staining noted. Scant edema. Positive pulses dorsalis pedis and posterior tibialis 2+ out of 4+. Full range of motion noted. No sign of infection. PROCEDURE: Area was covered in 4% lidocaine. Patient did sit for approximately 15 minutes prior to sharp debridement with use of curette and to remove yellow loosely adherent slough. There is a small amount of sanguineous bleeding but with direct pressure of gauze this was easily stopped. I applied dimethicone lotion to his phyllis skin. We applied Promogran to the wound bed, covered with ABD and Kerlix. Patient will follow up in 2 weeks or sooner if he has any concerns or questions. Juliann Pappas, bar Anyi, F.N.P.,B.C. Electronically Signed By: MERARY VIVAR PERIPATOLOGIST On: 05/04/2011 09:44 AM Source: [facility] MHSDOLBEYNONRADSYS Document Id: [id number] ETIC TURF WORKER documented in this encounter Miscellaneous Notes Miscellaneous - Romie Stephenson, R.N. - 04/20/2011 8:45 AM CST Adult Supervisor Finish End Intake/History Adult Supervisor Finish End Intake/History Entered On: 04/20/2011 8:48 ATHLETIC TURF WORKER Performed On: 04/20/2011 8:45 ATHLETIC TURF WORKER by ROMIE STEPHENSON Intake Chief Complaint : wound care Temperature Oral : 37C(Converted to: 98.6DegF) Systolic Blood Pressure : 128mmHg Actual Weight : 151.1kg(Converted to: 333lb 2oz) Dosing Weight Clinic : 151.10kg ROMIE STEPHENSON - 04/20/2011 8:45 ATHLETIC TURF WORKER Subjective Pain Symptoms : No ROMIE STEPHENSON - 04/20/2011 8:45 ATHLETIC TURF WORKER Dependent Habits Tobacco Use/Currently Using : No Exposure to Tobacco Smoke : Other: non smoker Smoking Status : Never smoker Alcohol Use : Yes ROMIE STEPHENSON - 04/20/2011 8:45 ATHLETIC TURF WORKER Allergy Allergies (Active) NKA Estimated Onset Date: Unspecified ; Created By: CLARISA MARAVILLA; Reaction Status: Active ;Category: Drug ; Substance: NKA ; Type: Allergy ; Updated By: CLARISA MARAVILLA; Source: Patient; Reviewed Date: 04/20/2011 8:45 ATHLETIC TURF WORKER Source: [facility] POWERCHART Document Id: [id number] ATHLETIC TURF WORKER!14 ETIC TURF WORKER documented in this encounter Plan of Treatment Not on filedocumented as of this encounter Visit Diagnoses Not on filedocumented in this encounter
--- OUTSIDE RECORDS SUMMARY | 2021-12-11 07:59 | XMS_ITS | Encounter Summary ---
:1960 Author Organization [facility] Address [address] [place] [address] Care Team Providers Name Role Phone Unavailable Primary Care Provider Unavailable Encounter Details Date Type Department Care Team Description 05/17/2011 Hospital Encounter [facility]X [facility] Charity Rogers M.D. [address] [place], [place] [address] (Wo rk) Social History Tobacco Use Types Packs/Day Years Used Date Smoking Tobacco: Never Assessed Sex Assigned at Date Recorded Not on file documented as of this encounter Last Filed Vital Signs Vital Sign Reading Time Taken Comments Blood Pressure 138/82 05/17/2011 10:16 AM BIOFUELS PRODUCTION MANAGER Pulse 80 05/17/2011 10:16 AM BIOFUELS PRODUCTION MANAGER Temperature - - Respiratory Rate 20 05/17/2011 10:16 AM BIOFUELS PRODUCTION MANAGER Oxygen Saturation - - Inhaled Oxygen Concentration - - Weight 151 kg (332 lb 14.3 oz) 05/17/2011 10:16 AM BIOFUELS PRODUCTION MANAGER Height - - Body Mass Index - - documented in this encounter Progress Notes Raul Rogers M.D. - 05/17/2011 12:00 AM CST [id number] CHIEF COMPLAINT/REASON FOR VISIT Increasing dyspnea HISTORY OF PRESENT ILLNESS Mr. Ridley is a 51-year-old male who has been becoming increasingly more short of breath over the past week. he has had some cough, perhaps he had a low-grade fever. He has not had any wheezing. He has never used an inhaler. He has had no other illness. He denies any chest pain or tightness. He does have some chronic peripheral edema and a previous history of venous insufficiency and stripping that was done. He is seeing wound clinic currently for a venous insufficiency ulcer. Interestingly, he says that he cannot lie down at night; he has to get up and pace because his breathing is worse when he lies down. When questioning him further about previous O2 levels that he might have had he does say that 10 years ago when he had his back surgery and his vein stripping that he had to stay in the hospital overnight both times because they had difficulty getting his oxygen back up again after the surgery. He does do chronic snoring. VITAL SIGNS Please see EMR. However, note O2 sat. when he was walking and immediately had it taken looks to be a steady 97% according to my nursing staff. When I saw him after sitting a bit I used all fingers and it was ranging from 91 -93% at all times. He does say he feels better when he walks around. CURRENT MEDICATIONS Please see today's EMR ALLERGIES Please see today's EMR PHYSICAL EXAM GENERAL APPEARANCE: Plethoric, classic, obstructive sleep apnea body habitus male, bull neck and large BMI. He does appear visibly short of breath at times. HEENT: TMs are negative. Oropharynx so contracted posteriorly that he has almost nonexistent visualization. Neck nodes are negative. CHEST: Diffusely with clear excellent airflow. No sign of wheezing. EXTREMITIES: Positive for peripheral edema bilaterally, but also chronic. IMPRESSION/REPORT/PLAN Acute hypoxia likely superimposed on prolonged and chronic hypoventilation PLAN: With his airway sounding this good and his hypoxia is differential moves into areas such as PE and congestive heart failure created by his chronic obstructive sleep apnea. I have discussed with ER physician Dr. Cora Peña who agrees that further workup is indicated. O2 sats. shared with Dr. Peña. Extensive clinical evaluation history required prior to transfer to Emergency Room. We did get any laboratories here. Raul Rogers M.D. Electronically Signed By: RAUL ROGERS MD On: 05/22/2011 05:24 PM Source: [facility] MHSDOLBEYNONRADSYS Document Id: [id number] UELS PRODUCTION MANAGER documented in this encounter Miscellaneous Notes Miscellaneous - Raul Rogers M.D. - 05/17/2011 11:34 AM CST Ambulatory Vitals Height Weight Ambulatory Vitals Height Weight Entered On: 05/17/2011 11:34 BIOFUELS PRODUCTION MANAGER Performed On: 05/17/2011 11:34 BIOFUELS PRODUCTION MANAGER by RAUL ROGERS MD Vitals/Ht/Wt SpO2 : 92% (LOW) RAUL ROGERS MD - 05/17/2011 11:34 BIOFUELS PRODUCTION MANAGER Source: [facility] [employer] Document Id: [id number] BIOFUELS PRODUCTION MANAGER!3 UELS PRODUCTION MANAGER Miscellaneous - Thomas Dia RKristineNKristine - 05/17/2011 10:16 AM BIOFUELS PRODUCTION MANAGER Adult Jewel Bearing Polisher Intake/History Adult Jewel Bearing Polisher Intake/History Entered On: 05/17/2011 10:20 BIOFUELS PRODUCTION MANAGER Performed On: 05/17/2011 10:16 BIOFUELS PRODUCTION MANAGER by THOMAS DIA Intake Chief Complaint : SOB, runny nose, can't sleep, eat, or drink, nasal congestion, chest feels tight. Onset of Symptoms : Tuesday and Tuesday had bad cold Temperature Oral : 36.3C(Converted to: 97.3DegF) Peripheral Pulse Rate : 80/min Respiratory Rate : 20/min Systolic Blood Pressure : 138mmHg Diastolic Blood Pressure : 82mmHg NIBP Mean : 101mmHg BP Location : Right upper extremity Blood Pressure Cuff Size : Large SpO2 : 97% Oxygen Therapy : Room air Actual Weight : 151.0kg(Converted to: 332lb 14oz) Dosing Weight Clinic : 151.00kg THOMAS DIA - 05/17/2011 10:16 BIOFUELS PRODUCTION MANAGER Subjective Pain Symptoms : No THOMAS DIA - 05/17/2011 10:16 BIOFUELS PRODUCTION MANAGER Dependent Habits Tobacco Use/Currently Using : No Exposure to Tobacco Smoke : Other: non smoker Smoking Status : Never smoker THOMAS DIA - 05/17/2011 10:16 BIOFUELS PRODUCTION MANAGER Allergy Allergies (Active) NKA Estimated Onset Date: Unspecified ; Created By: RENITA, CLARISA D; Reaction Status: Active ;Category: Drug ; Substance: NKA ; Type: Allergy ; Updated By: CLARISA MARAVILLA; Source: Patient; Reviewed Date: 05/17/2011 10:15 BIOFUELS PRODUCTION MANAGER Source: [facility] [employer] Document Id: [id number] BIOFUELS PRODUCTION MANAGER!22 UELS PRODUCTION MANAGER documented in this encounter Plan of Treatment Not on filedocumented as of this encounter Visit Diagnoses Not on filedocumented in this encounter
--- OUTSIDE RECORDS SUMMARY | 2021-12-11 07:59 | XMS_ITS | Encounter Summary ---
:1960 Author Organization [facility] Address [address] [place] [address] Care Team Providers Name Role Phone Unavailable Primary Care Provider Unavailable Encounter Details Date Type Department Care Team Description 07/27/2011 Hospital Encounter HX [facility] Zoila Vivar a, ZOE, C.N.P. Social History Tobacco Use Types Packs/Day Years Used Date Smoking Tobacco: Never Assessed Sex Assigned at Date Recorded Not on file documented as of this encounter Last Filed Vital Signs Vital Sign Reading Time Taken Comments Blood Pressure 144/82 07/27/2011 10:41 AM CDT Pulse - - Temperature - - Respiratory Rate - - Oxygen Saturation - - Inhaled Oxygen Concentration - - Weight 146 kg (321 lb 14 oz) 07/27/2011 10:41 AM CDT Height - - Body Mass Index - - documented in this encounter Progress Notes Merary Vivar - 07/27/2011 12:00 AM CDT [id number] CHIEF COMPLAINT/REASON FOR VISIT Wound care. Patient has a significant history of venous insufficiency and an ulcer. We have been helping it heal for several weeks. Last visit was approximately 2 weeks ago. He has been doing daily dressing changes. He has been using Amerigel and Telfa wrapped lightly with Kerlix. He is very happy with how small his wound is and he has been wearing his compression daily. Denies any new concern or complaint. CURRENT MEDICATIONS Reviewed EMR dated 07/27/2011 and no changes. ALLERGIES Reviewed EMR dated 07/27/2011 and no changes. VITAL SIGNS Reviewed EMR dated 07/27/2011 and no changes. PHYSICAL EXAM GENERAL: This is an obese well-developed 51-year-old male who is non-ill appearing in no acute distress. EXTREMITIES: Left lower extremity medially shows 2 wounds. The most superior wound is approximately 0.2 x 0.2 x 0.2 cm which has significantly decreased from last measurement of 1.5 x 1.5 x 0.3 cm during last visit. Wound bed currently is covered with loosely yellow adherent slough. There is no undermining or tunneling. No sign of infection. He does have noted hemosiderin staining and there is a scant amount of serous drainage. The distal wound measures approximately 0.8 x 0.5 x 0.2 cm which is approximately the same as last measurement of 0.4 x 0.5 x 0.1 cm. That wound bed also is covered in loosely yellow adherent slough. No undermining or tunneling. No sign of infection. PROCEDURE: During this procedure the universal protocol was utilized. The patient's identity was confirmed by no less than two patient identifiers, correct procedure was verified, correct site was verified and marked as applicable and a final pause was completed. Both wounds were debrided using sharp debridement of a curette to remove yellow adherent slough. Post-debridement measurements were for the superior wound 0.2 x 0.2 x 0.2 cm. Scant amount of serosanguineous drainage noted. The distal wound measured 0.8 x 0.5 x 0.2 cm after debridement and wound bed was 100% granulating tissue with a small amount of serosanguineous drainage. Area was then covered with Amerigel, Telfa and Kerlix. IMPRESSION/REPORT/PLAN 1) Venous insufficiency 2) Venous ulcer PLAN: Patient will return in 2 weeks. He will continue dressing changes as instructed. He will notify me if he needs another prescription of the Amerigel and I encouraged him to call with questions and continue wearing his compression socks. Yanet PappasSbar Cr R.N., F.N.P.,B.C. Electronically Signed By: MERARY VIVAR NP On: 08/01/2011 10:59 AM Modified by and Electronically Signed by: MERARY VIVAR NP On: 08/01/2011 10:59 AM Source: [facility] MHSDOLBEYNONRADSYS Document Id: [id number] documented in this encounter Miscellaneous Notes Miscellaneous - Romie Stephenson, R.N. - 07/27/2011 10:41 AM CDT Adult Shiatsu Therapist Intake/History Adult Shiatsu Therapist Intake/History Entered On: 07/27/2011 10:42 CDT Performed On: 07/27/2011 10:41 CDT by ROMIE STEPHENSON Intake Ambulatory Intake Additional Information : did not want 2nd. bP Actual Weight : 146kg(Converted to: 321lb 14oz) Dosing Weight Clinic : 146.00kg ROMIE STEPHENSON - 07/27/2011 10:43 CDT Temperature Oral : 37C(Converted to: 98.6DegF) Systolic Blood Pressure : 144mmHg (HI) Diastolic Blood Pressure : 82mmHg NIBP Mean : 103mmHg BP Location : Right upper extremity Blood Pressure Cuff Size : Large ROMIE STEPHENSON - 07/27/2011 10:41 CDT Subjective Pain Symptoms : No ROMIE STEPHENSON - 07/27/2011 10:41 CDT Dependent Habits Tobacco Use/Currently Using : No Exposure to Tobacco Smoke : Other: non smoker Smoking Status : Unknown if ever smoke ROMIE STEPHENSON - 07/27/2011 10:41 CDT Allergy Allergies (Active) NKA Estimated Onset Date: Unspecified ; Created By: CLARISA MARAVILLA; Reaction Status: Active ;Category: Drug ; Substance: NKA ; Type: Allergy ; Updated By: CLARISA MARAVILLA; Source: Patient; Reviewed Date: 07/27/2011 10:41 CDT Source: [facility] [employer] Document Id: [id number] CDT!5 documented in this encounter Plan of Treatment Not on filedocumented as of this encounter Visit Diagnoses Not on filedocumented in this encounter
--- OUTSIDE RECORDS SUMMARY | 2021-12-11 07:59 | XMS_ITS | Encounter Summary ---
:1960 Author Organization [facility] Address [address] [place] [address] Care Team Providers Name Role Phone Unavailable Primary Care Provider Unavailable Encounter Details Date Type Department Care Team Description 02/08/2014 Hospital Encounter HX [facility]HB INTERNMED Galen Sousa V., PRODUCT DESIGNER, C.N.P. [address] [place] [address] (Wo rk) Social History Tobacco Use Types Packs/Day Years Used Date Smoking Tobacco: Never Assessed Sex Assigned at Date Recorded Not on file documented as of this encounter Last Filed Vital Signs Vital Sign Reading Time Taken Comments Blood Pressure 138/82 02/08/2014 10:52 AM SUPERVISOR WASH HOUSE Pulse 60 02/08/2014 10:52 AM SUPERVISOR WASH HOUSE Temperature - - Respiratory Rate 18 02/08/2014 10:52 AM SUPERVISOR WASH HOUSE Oxygen Saturation - - Inhaled Oxygen Concentration - - Weight 142 kg (312 lb 13.3 oz) 02/08/2014 10:52 AM SUPERVISOR WASH HOUSE Height 178 cm (5' 10.08) 02/08/2014 10:52 AM SUPERVISOR WASH HOUSE Body Mass Index 44.79 02/08/2014 10:52 AM SUPERVISOR WASH HOUSE documented in this encounter Progress Notes Gisselle Batista, L.P.N. - 02/08/2014 11:00 AM CST Wound Care Wound Care Entered On: 02/08/2014 11:00 SUPERVISOR WASH HOUSE Performed On: 02/08/2014 11:00 SUPERVISOR WASH HOUSE by GISSELLE BATISTA Integumentary Pain Symptoms : Yes GISSELLE BATISTA - 02/08/2014 11:00 SUPERVISOR WASH HOUSE Pain Pain Assessment Grid Pain 1 Pain 2 Location : Lower leg Lower leg GISSELLE BATISTA - 02/08/2014 11:00 SUPERVISOR WASH HOUSE GISSELLE BATISTA - 02/08/2014 11:00 SUPERVISOR WASH HOUSE Source: [facility] POWERCHART Document Id: [id number] SUPERVISOR WASH HOUSE!9 RVISOR WASH HOUSE Alexander Sousa APRN, C.N.P. - 02/08/2014 10:33 AM CST [id number] HISTORY OF PRESENT ILLNESS Tank returns for ongoing wound care of bilateral lower extremity venous stasis ulcers complicated by history of delayed healing and infection. He did go to see the [facility] at the [facility] on February 01. The purpose of the visit was to have vascular studies addressed which it sounds like they were. He is returning here for regular therapy of his wounds including MIST therapy. He continues to have severe pain in the left lower extremity wound and is asking for more Efland. He stated he had to leave work on Tuesday due to pain. He was recently diagnosed with diabetes and hypertension. Dr. Avery [place] primary care providerin [place]. I highly encouraged him to return to Dr. Avery for continued evaluation and treatment of the blood pressure and the diabetes. Tank states he wants to wait until his wounds are healed. Itold him his wounds would heal quicker if he did have his diabetes and blood sugars under control and once again encouraged him to make an appointment to be seen. According to the electronic medical record arterial studies were done which showed no peripheral arterial disease. PHYSICAL EXAMINATION SKIN: The right lower extremity medial wound measures 5 x 3.5. The wound bed shows granulation with epithelization. No tunneling, undermining, odor or drainage. There are venous stasis and hemosiderin changes noted. He also has some swelling in the leg. The left lower extremity inner malleolar wound me asures 5 x 3. The wound bed shows granulation and epithelization. No tunneling, undermining, odor, or drainage. There is some edema in the leg with venous stasis and hemosiderin changes. Procedural pause conducted to verify: Correct patient, identity, procedure to be performed and as applicable, correct side and site, correct patient position and availability of special requirements. Wounds are cleansed with saline, PCMX, rinsed well. Selective debridement was done using Celleration ultrasonic MIST therapy for 3 minutes. Wounds were rinsed with saline and dried. Medihoney was applied, covered with ABDs as a secondary dressing held in place with Kerlix. Tank stated that he refuses to wear the Arnie bandages in a figure 8. He stated by the time he left [facility] and got to his car the bandages were falling down and he is wearing his compression stockings. I gave him a new prescription for knee high compression stockings 20to 30 mmHg which was faxed to [facility] in [place]. I also gave him a script for Efland 5/325 one pill every 6 hours as needed for pain #12 which he took the hard copy with him. He will returnon Tuesday, February 11, for ongoing wound care. Alexander Sousa CNP/yi Electronically Signed By: ALEXANDER SOUSA CNP On: 02/11/2014 08:09 AM Source: [facility] MHSDOLBEYNONRADSYS Document Id: [id number] RVISOR WASH HOUSE documented in this encounter Miscellaneous Notes Miscellaneous - Gisselle Batista, LKristineP.N. - 02/08/2014 10:52 AM CST Adult Laborer Steel Handling Intake/History Adult Laborer Steel Handling Intake/History Entered On: 02/08/2014 11:00 SUPERVISOR WASH HOUSE Performed On: 02/08/2014 10:52 SUPERVISOR WASH HOUSE by GISSELLE BATISTA Intake Chief Complaint : Wound care both lower legs Temperature Core : 36.5 DegC(Converted to: 97.7 DegF) Peripheral Pulse Rate : 60 /min Respiratory Rate : 18 /min Systolic Blood Pressure : 138 mmHg Diastolic Blood Pressure : 82 mmHg NIBP Mean : 101 mmHg BP Location : Right upper extremity Blood Pressure Cuff Size : Large Height : 178 cm(Converted to: 5 ft 10 inch(es), 70 inch(es)) Actual Weight : 141.9 kg(Converted to: 312 lb 13 oz) Weight Source : Standing scale Dosing Weight Clinic : 141.9 kg Clinic BSA : 2.65 Body Mass Index : 44.79 kg/m2 GISSELLE BATISTA 02/08/2014 10:52 SUPERVISOR WASH HOUSE General Info Information Given By : Patient Preferred Communication Mode : Verbal Languages : Y[place] Is Patient Female and 13-50 no hysterectomy : No GISSELLE BATISTA 02/08/2014 10:52 SUPERVISOR WASH HOUSE Subjective Pain Symptoms : Yes GISSELLE BATISTA 02/08/2014 10:52 SUPERVISOR WASH HOUSE Pain Pain Assessment Grid Pain 1 Pain 2 Location : Lower leg Lower leg Laterality : Right Left Intensity : 7 4 Quality : Aching, Burning, Sharp, Throbbing (Comment: sharp burning [GISSELLE BATISTA 02/08/2014 10:52 SUPERVISOR WASH HOUSE] ) Alleviating Factors : Medication Medication GISSELLE BATISTA 02/08/2014 10:52 SUPERVISOR WASH HOUSE GISSELLE BATISTA 02/08/2014 10:52 SUPERVISOR WASH HOUSE (Comment: varies from 6 to 10 [GISSELLE BATISTA 02/08/2014 10:52 SUPERVISOR WASH HOUSE] ) Dependent Habits Tobacco Use/Currently Using : No Tobacco Use/Last 12 months : No Exposure to Tobacco Smoke : Other: non smoker Smoking Status : Never smoker GISSELLE BATISTA 02/08/2014 10:52 SUPERVISOR WASH HOUSE ID Screen Drug Resistant Organism : No Travel Within Last 21 Days : No GISSELLE BATISTA 02/08/2014 10:52 SUPERVISOR WASH HOUSE Source: [facility] POWERCHART Document Id: [id number] SUPERVISOR WASH HOUSE!45 RVISOR WASH HOUSE documented in this encounter Plan of Treatment Not on filedocumented as of this encounter Visit Diagnoses Not on filedocumented in this encounter
--- OUTSIDE RECORDS SUMMARY | 2021-12-11 07:59 | XMS_ITS | Encounter Summary ---
:1960 Author Organization [facility] Address [address] [place] [address] Care Team Providers Name Role Phone Unavailable Primary Care Provider Unavailable Encounter Details Date Type Department Care Team Description 03/05/2011 Hospital Encounter [facility]X [facility] Zoila Madison, ZOE, C.N.P. Social History Tobacco Use Types Packs/Day Years Used Date Smoking Tobacco: Never Assessed Sex Assigned at Date Recorded Not on file documented as of this encounter Plan of Treatment Not on filedocumented as of this encounter Visit Diagnoses Not on filedocumented in this encounter
--- OUTSIDE RECORDS SUMMARY | 2021-12-11 07:59 | XMS_ITS | Encounter Summary ---
:1960 Author Organization [facility] Address [address] [place] [address] Care Team Providers Name Role Phone Unavailable Primary Care Provider Unavailable Encounter Details Date Type Department Care Team Description 01/23/2014 Hospital Encounter HX NO MAPPING Lory Sousa V., APR N, C.N.P. [address] [place], [place] [phone] (Wo rk) Social History Tobacco Use Types Packs/Day Years Used Date Smoking Tobacco: Never Assessed Sex Assigned at Date Recorded Not on file documented as of this encounter Plan of Treatment Not on filedocumented as of this encounter Visit Diagnoses Not on filedocumented in this encounter
--- OUTSIDE RECORDS SUMMARY | 2021-12-11 07:59 | XMS_ITS | Encounter Summary ---
:1960 Author Organization [facility] Address [address] [place] [address] Care Team Providers Name Role Phone Unavailable Primary Care Provider Unavailable Encounter Details Date Type Department Care Team Description 05/17/2011 Hospital Encounter HX NO MAPPING Caroline Tong M.B.B.S. [phone] [facility] RAJWINDER Hector [phone] (Wo rk) Social History Tobacco Use Types Packs/Day Years Used Date Smoking Tobacco: Never Assessed Sex Assigned at Date Recorded Not on file documented as of this encounter Plan of Treatment Not on filedocumented as of this encounter Visit Diagnoses Not on filedocumented in this encounter
--- OUTSIDE RECORDS SUMMARY | 2021-12-11 07:59 | XMS_ITS | Encounter Summary ---
:1960 Author Organization [facility] Address [address] [place] [address] Care Team Providers Name Role Phone Unavailable Primary Care Provider Unavailable Encounter Details Date Type Department Care Team Description 05/27/2011 Hospital Encounter HX [facility] Zoila Vivar a, ZOE, C.N.P. Social History Tobacco Use Types Packs/Day Years Used Date Smoking Tobacco: Never Assessed Sex Assigned at Date Recorded Not on file documented as of this encounter Last Filed Vital Signs Vital Sign Reading Time Taken Comments Blood Pressure 112/70 05/27/2011 8:36 AM TUBE CLOSING MACHINE OPERATOR Pulse 72 05/27/2011 8:36 AM TUBE CLOSING MACHINE OPERATOR Temperature - - Respiratory Rate - - Oxygen Saturation - - Inhaled Oxygen Concentration - - Weight 147 kg (323 lb 13.7 oz) 05/27/2011 8:36 AM TUBE CLOSING MACHINE OPERATOR Height - - Body Mass Index - - documented in this encounter Progress Notes Merary Vivar - 05/27/2011 12:00 AM CST [id number] CHIEF COMPLAINT/REASON FOR VISIT Wound care HISTORY OF PRESENT ILLNESS Patient has a history of venous insufficiency with venous ulcers. Currently we have been helping him heal one on his left lower extremity. He has been doing dressing changes on an every day to every other day basis. Applying moisturizer to his lower extremity, Promogran, gauze and compression socks. He denies any concern or complaint. Current meds, allergies, vitals reviewed EMR dated 05/27/2011 no changes PHYSICAL EXAM GENERAL: Obese, well-developed 51-year-old single male who is non-ill appearing and in no acute distress. EXTREMITIES: Left lower extremity medially just superior to the malleolus shows a wound that is approximately 0.8 x 0.8 x 0.2 cm. Wound bed is 75% granulating tissue with 25% loose yellow adherent tissue. There is a scant amount of serous drainage. No pain with palpation. There is noted hemosiderin staining and skin is significantly dry and cracked. PROCEDURE: I applied Vanicream to his left lower extremity. Wound bed was cleansed with normal saline. I then applied Promogran, Telfa and wrapped lightly with gauze. IMPRESSION/REPORT/PLAN Venous insufficiency with ulcer. He will continue dressing changes as directed. Follow up in two weeks or sooner if needed and I encouraged him to call with questions. Patient verbalized understanding and agreement of plan of care as outlined above. Juliann Pappas, dario Anyi, F.N.P.,B.C. Electronically Signed By: MERARY VIVAR CAR SPOTTER On: 06/08/2011 11:51 AM Source: [facility] MHSDOLBEYNONRADSYS Document Id: [id number] CLOSING MACHINE OPERATOR documented in this encounter Miscellaneous Notes Miscellaneous - Merary Vivar - 05/27/2011 9:18 AM CST Ambulatory Patient Summary [address] [address] Visit Information Name: JOSE GUADALUPE RIDLEY Current Date: 05/27/2011 09:18:05 Physicians Attending Provider: MERARY VIVAR NP Primary Care Provider: PCP, UNASSIGNED Your Medications Here is a list of your medications. It is important to take your medications as directed. Use a pillbox or chart to help remind you to take your medications. Please let your doctor or nurse know if you have problems taking your medications. Medication/Strength Dose Route Frequency Indications/Special Instructions/Comments albuterol (albuterol 90 mcg/inh inhalation aerosol) PRN hydrocodone-acetaminophen (Vicodin 5 mg-500 mg oral tablet) See Instructions Pain 1 to 2 tablets PO q6hr. / No more than 4,000mg acetaminophen/24hrs triamcinolone topical (triamcinolone topical 0.1% ointment) 1 florence Topical two times a day ibuprofen (Advil) Pain Attention: If you have any medications at home that are not on this list, DO NOT take them until youcontact your provider for clarification. Your Allergies & Intolerances Substance Reaction Symptoms Category Comments NKA Drug Your Problem List Problem Status Onset Comments Displacement of Intervertebral Disc, Site Unspecified, without Myelopathy Active 05/31/2001 Varicose Veins of Lower Extremities with Inflammation Active 09/20/2007 Edema Active 04/23/2008 Contact Dermatitis and Other Eczema, Unspecified Cause Active 04/24/2008 Ulcer of skin NOS Active 11/20/2009 Venous Stasis Ulcer with Inflammation Active 11/24/2009 Venous insufficiency NOS Active 03/16/2010 Your Recommendations We want to make sure you get the tests, immunizations, and guidance you need to stay healthy. Here is a customized list of recommendations, based on information we have in your medical record. Your doctor may have additional recommendations for you, based on your personal medical history and risk factors. You can help us by calling us to make an appointment when you are due for your tests. Additional information regarding recommendations: Test/Treatment Last Done Next Due Additional Information Health Assessment every 1 year 05/27/2011 Screening Colonoscopy or Flex Sig or Occult Blood 05/27/2011 Checks for signs of cancer of the colon. Lipid Panel every 5 years Age 20-75 05/27/2011 Checks blood for good (HDL) and bad (LDL) cholesterol. Know your numbers, they are one indicator of your risk for heart attack and stroke. Vaccine: Flu every 1 year 05/27/2011 Immunization to help prevent you from getting the flu strain expected to be a problem for that year's flu season. Vaccine: Tetanus every 10 years 05/27/2011 Immunization to help prevent you from getting the seriousdisease Tetanus (Lockjaw). Your Upcoming Appointments Date Time Location Reason Provider No Appointments found Your Goals/Additional instructions: Source: [facility] POWERCHART Document Id: [id number] CLOSING MACHINE OPERATOR Miscellaneous - Merary Vivar - 05/27/2011 9:18 AM CST Ambulatory Depart Summary [address] [address] Visit Information Name: JOSE GUADALUPE RIDLEY Visit Date: 05/27/2011 09:18:04 Attending Provider: MERARY VIVAR CAR SPOTTER Primary Care Provider: PCP, UNASSIGNED JOSE GUADALUPE RIDLEY has been given the following list of medications: Your Medications It is important to take your medications as directed. Use a pill box or chart to help remind you to take your medications. Please let your doctor or nurse know if you have problems taking your medications. Medication/Strength Dose Route Frequency Indications/Special Instructions/Comments albuterol (albuterol 90 mcg/inh inhalation aerosol) PRN hydrocodone-acetaminophen (Vicodin 5 mg-500 mg oral tablet) See Instructions Pain 1 to 2 tablets PO q6hr. / No more than 4,000mg acetaminophen/24hrs triamcinolone topical (triamcinolone topical 0.1% ointment) 1 florence Topical two times a day ibuprofen (Advil) Pain Attention: If you have any medications at home that are not on this list, DO NOT take them until youcontact your provider for clarification. Additional Information: Yes - . Source: [facility] POWERCHART Document Id: [id number] CLOSING MACHINE OPERATOR Miscellaneous - Irma Kaur, L.P.N. - 05/27/2011 8:36 AM CST Adult Petal Cutter Intake/History Adult Petal Cutter Intake/History Entered On: 05/27/2011 8:39 TUBE CLOSING MACHINE OPERATOR Performed On: 05/27/2011 8:36 TUBE CLOSING MACHINE OPERATOR by IRMA JUDD Intake Chief Complaint : Wound care- left leg Temperature Oral : 36.7C(Converted to: 98.1DegF) Peripheral Pulse Rate : 72/min Systolic Blood Pressure : 112mmHg Diastolic Blood Pressure : 70mmHg NIBP Mean : 84mmHg BP Location : Right upper extremity Blood Pressure Cuff Size : Large Actual Weight : 146.9kg(Converted to: 323lb 14oz) Weight Source : Standing scale Dosing Weight Clinic : 146.90kg IRMA JUDD - 05/27/2011 8:36 TUBE CLOSING MACHINE OPERATOR Subjective Pain Symptoms : No IRMA JUDD - 05/27/2011 8:36 TUBE CLOSING MACHINE OPERATOR Dependent Habits Tobacco Use/Currently Using : No Exposure to Tobacco Smoke : Other: non smoker Smoking Status : Never smoker IRMA JUDD - 05/27/2011 8:36 TUBE CLOSING MACHINE OPERATOR Allergy Allergies (Active) NKA Estimated Onset Date: Unspecified ; Created By: CLARISA MARAVILLA; Reaction Status: Active ;Category: Drug ; Substance: NKA ; Type: Allergy ; Updated By: CLARISA MARAVILLA; Source: Patient; Reviewed Date: 05/17/2011 10:15 TUBE CLOSING MACHINE OPERATOR Source: [facility] Document Id: [id number] TUBE CLOSING MACHINE OPERATOR!19 CLOSING MACHINE OPERATOR documented in this encounter Plan of Treatment Not on filedocumented as of this encounter Visit Diagnoses Not on filedocumented in this encounter
--- OUTSIDE RECORDS SUMMARY | 2021-12-11 07:59 | XMS_ITS | Encounter Summary ---
:1960 Author Organization [facility] Address [address] [place] [address] Care Team Providers Name Role Phone Unavailable Primary Care Provider Unavailable Encounter Details Date Type Department Care Team Description 05/07/2011 Hospital Encounter HX [facility] Zoila Vivar a, OZE, C.N.P. Social History Tobacco Use Types Packs/Day Years Used Date Smoking Tobacco: Never Assessed Sex Assigned at Date Recorded Not on file documented as of this encounter Last Filed Vital Signs Vital Sign Reading Time Taken Comments Blood Pressure 124/88 05/07/2011 8:10 AM ATHLETIC EVENTS SCORER Pulse - - Temperature - - Respiratory Rate - - Oxygen Saturation - - Inhaled Oxygen Concentration - - Weight - - Height - - Body Mass Index - - documented in this encounter Progress Notes Merary Vivar - 05/07/2011 12:00 AM CST [id number] CHIEF COMPLAINT/REASON FOR VISIT Wound care HISTORY OF PRESENT ILLNESS Patient has a long history of venous stasis insufficiency with ulcer. He has had an ulcer on his left medial lower extremity for what I believe to be about a year. It was almost closed and now it has reopened up again. He is here today for Apligraf treatment. He does note a new open area on the top of his foot which is extremely painful. He is out of Vicodin. He states he is taking Advil like candy and he is requesting more Vicodin. Denies any other concern or complaint. Current meds, allergies and vitals reviewed EMR dated 05/07/2011 and no changes. PHYSICAL EXAM GENERAL: This is an obese, well-developed, well-nourished 51-year-old male whom is non ill appearing in no acute distress. EXTREMITIES: Left lower extremity medial aspect shows a wound that is 1.5 x 1.5 x 0.3 cm. Wound bed is 50% granulating buds, 50% loosely yellow adherent slough. There is no undermining or tunneling. There is a small amount of serous drainage. There is noted hemosiderin staining and some scant to 1+ edema of the lower extremity. Dorsal aspect of foot shows wound #2 which measures in size 1 x 0.5 x 0.1 cm. Wound bed is granulating buds. There is a scant amount of serous drainage and there is significant pain with palpation. Positive dorsalis pedis and posterior tibialis pulses 2 plus out of 4+. Full range of motion noted. Strength and capillary refill is less than 2 seconds. PROCEDURE: During this procedure the universal protocol was utilized. The patient's identity was confirmed by no less than two patient identifiers, correct procedure was verified, correct site was verified and marked as applicable and a final pause was completed. After 4% lidocaine was applied to wound beds the patient did sit for approximately 10 minutes. Sharp debridement with curet was done to the left medial wound to remove the loose yellow adherent slough. A small amount of sanguineous discharge was noted which was easily stopped with direct pressure of dry gauze. Areas were cleansed with normal saline. An Apligraf GS [id number], expiration May 12, 2011 was applied in usual fashion without difficulty. I did apply excess to the dorsal aspect of the wound and that was covered with DuoDERM. The medial wound was covered with Mepitel, ABD and Kerlix. IMPRESSION/REPORT/PLAN 1) Venous stasis insufficiency with ulcer. 2) Apligraf placement. PLAN: The patient will keep dressing intact, clean and dry. He will return in 1 week for his first dressing change. I did give him a new prescription of Vicodin to take as directed and encouraged him to call with questions. Yanet PappasSTayo, dario R.N., F.N.P.,B.C. Electronically Signed By: MERARY VIVAR NP On: 05/22/2011 03:16 PM Source: [facility] MHSDOLBEYNONRADSYS Document Id: [id number] ETIC EVENTS SCORER documented in this encounter Miscellaneous Notes Miscellaneous - Romie Stephenson, RKristineN. - 05/07/2011 8:10 AM CST Adult Financial Analysis Advisor Intake/History Adult Financial Analysis Advisor Intake/History Entered On: 05/07/2011 8:12 ATHLETIC EVENTS SCORER Performed On: 05/07/2011 8:10 ATHLETIC EVENTS SCORER by ROMIE STEPHENSON Intake Chief Complaint : wound care, has new wound on dorsal side left foot Temperature Oral : 36.9C(Converted to: 98.4DegF) Systolic Blood Pressure : 124mmHg Diastolic Blood Pressure : 88mmHg NIBP Mean : 100mmHg ROMIE STEPHENSON - 05/07/2011 8:10 ATHLETIC EVENTS SCORER Subjective Pain Symptoms : Yes ROMIE STEPHENSON - 05/07/2011 8:10 ATHLETIC EVENTS SCORER Pain Pain Assessment Grid Pain 1 Location : Foot Laterality : Left ROMIE STEPHENSON - 05/07/2011 8:10 ATHLETIC EVENTS SCORER Dependent Habits Tobacco Use/Currently Using : No Exposure to Tobacco Smoke : Other: non smoker Smoking Status : Unknown if ever smoke ROMIE STEPHENSON - 05/07/2011 8:10 ATHLETIC EVENTS SCORER Allergy Allergies (Active) NKA Estimated Onset Date: Unspecified ; Created By: CLARISA MARAVILLA; Reaction Status: Active ;Category: Drug ; Substance: NKA ; Type: Allergy ; Updated By: CLARISA MARAVILLA; Source: Patient; Reviewed Date: 05/07/2011 8:09 ATHLETIC EVENTS SCORER Source: [facility] POWERCHART Document Id: [id number] ATHLETIC EVENTS SCORER!18 ETIC EVENTS SCORER documented in this encounter Plan of Treatment Not on filedocumented as of this encounter Visit Diagnoses Not on filedocumented in this encounter
--- OUTSIDE RECORDS SUMMARY | 2021-12-11 07:59 | XMS_ITS | Encounter Summary ---
:1960 Author Organization [facility] Address [address] [place] [address] Care Team Providers Name Role Phone Unavailable Primary Care Provider Unavailable Encounter Details Date Type Department Care Team Description 01/14/[address] [facility] INTERNMED Galen Sousa V., OCC THER, C.N.P. [address] [place] [address] (Wo rk) Social History Tobacco Use Types Packs/Day Years Used Date Smoking Tobacco: Never Assessed Sex Assigned at Date Recorded Not on file documented as of this encounter Last Filed Vital Signs Vital Sign Reading Time Taken Comments Blood Pressure 138/92 01/14/2014 11:29 AM CDT Pulse 72 01/14/2014 11:24 AM CDT Temperature - - Respiratory Rate 20 01/14/2014 11:24 AM CDT Oxygen Saturation - - Inhaled Oxygen Concentration - - Weight 145 kg (319 lb 14.2 oz) 01/14/2014 11:24 AM CDT Height 178 cm (5' 10.08) 01/14/2014 11:29 AM CDT Body Mass Index 45.8 01/14/2014 11:24 AM CDT documented in this encounter Progress Notes Gisselle Batista, Jeff.P.N. - 01/14/2014 11:29 AM CDT Wound Care Wound Care Entered On: 01/14/2014 11:29 CDT Performed On: 01/14/2014 11:29 CDT by GISSELLE BATISTA Integumentary Pain Symptoms : Yes GISSELLE BATISTA - 01/14/2014 11:29 CDT Pain Pain Assessment Grid Pain 1 Location : Lower leg GISSELLE BATISTA - 01/14/2014 11:29 CDT [facility] POWERCHART Document Id: [id number] CDT!7 Alexander Sousa APRN, C.N.P. - 01/14/2014 10:33 AM CDT [id number] HISTORY OF PRESENT ILLNESS Tank is returning for ongoing wound care of bilateral lower extremity venous stasis ulcers. He stateshe was told he was diabetic after seeing his doctor in [place]. We talked about the importance of keeping his blood sugars under control so his wounds will heal. He has continued pain in the right leg, and none in the left leg. He was able to keep his Unna boots on until today. PHYSICAL EXAMINATION The right lower extremity measures 5 x 3.5. The wound bed is slough with granulating buds seen. There is no edema, no erythema, no tunneling, undermining or odor. Scant drainage. Left lower extremity measures 5 x 3.5 also. There is new epithelization seen within the wound bed. No tunneling, undermining or odor. Drainage is scant serous. IMPRESSION/REPORT/PLAN Bilateral lower extremity venous stasis ulcers. The wounds were cleansed with saline and PCMX, rinsed well. Selective debridement was done using Celleration Ultrasonic MIST therapy for 3 minutes. Wounds were rinsed with saline and dried. AQUACEL Ag was applied to the wound bed only, covered with an ABD and bilateral Unna boots were applied. Prior to the Unna boot application, his feet were soaked in antibacterial soapy water for 3 minutes, his legs were washed well with Hibiclens, rinsed well with saline, and some SensiCare 2 cream was applied. He will keep his dressings on and return on Tuesday, January 16 for ongoing wound care. Alexander Sousa CNP/yi Electronically Signed By: ALEXANDER SOUSA CNP On: 01/15/2014 08:34 AM Source: [facility] MHSDOLBEYNONRADSYS Document Id: [id number] documented in this encounter Miscellaneous Notes Miscellaneous - Gisselle Batista L.P.N. - 01/14/2014 11:29 AM CDT Ambulatory Vitals Height Weight Ambulatory Vitals Height Weight Entered On: 01/14/2014 11:35 CDT Performed On: 01/14/2014 11:29 CDT by GISSELLE BATISTA/Ht/Wt Systolic Blood Pressure : 138 mmHg Diastolic Blood Pressure : 92 mmHg (>HHI) NIBP Mean : 107 mmHg BP Location : Right upper extremity Blood Pressure Cuff Size : Large Height : 178 cm(Converted to: 5 ft 10 inch(es), 70 inch(es)) GISSELLE BATISTA - 01/14/2014 11:29 CDT Source: [facility] POWERCHART Document Id: [id number] CDT!8 Miscellaneous - Alexander Sousa APRN, C.N.P. - 01/14/2014 11:25 AM CDT Ambulatory Patient Summary [address] [id number] Visit Information Name: ARISTIDESJOSE GUADALUPE NATHAN [facility] Number: [id number] Current Date: 01/14/2014 11:25:02 Physicians Attending Provider: ALEXANDER SOUSA CNP Primary Care Provider: PCP, UNASSIGNED - AVERY RIDLEY JOSE GUADALUPE ADAMS has been given the [...] Changes/Routing ibuprofen (Advil) as needed for Pain *traMADol (traMADol 50 mg oral tablet) 1 Tablet(s), Oral, every 6 hours as needed for Pain * You have let us know that you are not taking this medication as listed. Please talk with your primary care provider or the health care provider who prescribed the medication as soon as possible. Stop Taking the Following Medications: Medication list as of 01-14-14 11:25 Attention: If you have any medications at [...] Electronically Signed By: ALEXANDER SOUSA CNP Signed On:14-JAN-2014 11:19:20 Your Allergies & Intolerances Substance Reaction Symptoms Category Comments No Known Allergies Drug Your Problem List Problem Status Onset Comments Herniated Disc Active 05/31/2001 Stasis Dermatitis Active 09/20/2007 Edema Active 04/23/2008 Eczema Active 04/24/2008 Ulcer of skin NOS Active 11/20/2009 Venous Stasis Ulcer with Inflammation Active 11/24/2009 Venous insufficiency NOS Active 03/16/2010 Cellulitis Leg R Active Cellulitis Leg L Active Exam General Medical NOS (GME) Active Hypertension (HTN) Chronic Active Your Upcoming Appointments Date Time Location Provider 01/23/2014 14:30 [facility] InternDelmis Vick 02/04/2014 11:[address] [facility] [address] 02/05/2014 08:10 [facility] InternCurtis Camejo MD Attention: Contact your local Clinic if further appointment detail needed. Your Goals/Additional instructions: Source: [facility] POWERCHART Document Id: [id number] Miscellaneous - Alexander Sousa APRN, C.N.P. - 01/14/2014 11:25 AM CDT Ambulatory Discharge Medication List [place] [id number] Visit Information Name: JOSE GUADALUPE RIDLEY [facility] Number: [id number] Visit Date: 01/14/2014 11:25:01 Attending Provider: ALEXANDER SOUSA CNP Primary Care Provider: PCP, UNASSIGNED - OW JOSE GUADALUPE RIDLEY has been given the [...] Changes/Routing ibuprofen (Advil) as needed for Pain *traMADol (traMADol 50 mg oral tablet) 1 Tablet(s), Oral, every 6 hours as needed for Pain * You have let us know that you are not taking this medication as listed. Please talk with your primary care provider or the health care provider who prescribed the medication as soon as possible. Stop Taking the Following Medications: Medication list as of 01-14-14 11:25 Attention: If you have any medications at [...] Electronically Signed By: ALEXANDER SOUSA CNP Signed On:14-JAN-2014 11:19:20 Additional Information: Source: [facility] POWERCHART Document Id: [id number] Miscellaneous - Gisselle Batista, LKristineP.N. - 01/14/2014 11:24 AM CDT Adult Speech And Drama Teacher Intake/History Adult Speech And Drama Teacher Intake/History Entered On: 01/14/2014 11:28 CDT Performed On: 01/14/2014 11:24 CDT by GISSELLE BATISTA Chief Complaint : Wound care both lower legs Temperature Core : 36.6 DegC(Converted to: 97.9 DegF) Peripheral Pulse Rate : 72 /min Respiratory Rate : 20 /min Systolic Blood Pressure : 144 mmHg (HI) Diastolic Blood Pressure : 96 mmHg (>HHI) NIBP Mean : 112 mmHg BP Location : Right upper extremity Blood Pressure Cuff Size : Large Height : 178 cm(Converted to: 5 ft 10 inch(es), 70 inch(es)) Actual Weight : 145.1 kg(Converted to: 319 lb 14 oz) Weight Source : Standing scale Dosing Weight Clinic : 145.1 kg Clinic BSA : 2.68 Body Mass Index : 45.8 kg/m2 GISSELLE BATISTA - 01/14/2014 11:24 CDT General Info Information Given By : Patient Preferred Communication Mode : Verbal Languages : American Is Patient Female and 13-50 no hysterectomy : No GISSELLE BATISTA - 01/14/2014 11:24 CDT Subjective Pain Symptoms : Yes GISSELLE BATISTA 01/14/2014 11:24 CDT Pain Pain Assessment Grid Pain 1 Location : Lower leg Laterality : Right Intensity : 7 Quality : Burning, Sharp Alleviating Factors : Medication GISSELLE BATISTA - 01/14/2014 11:24 CDT Dependent Habits Tobacco Use/Currently Using : No Tobacco Use/Last 12 months : No Exposure to Tobacco Smoke : Other: non smoker Smoking Status : Never smoker GISSELLE BATISTA - 01/14/2014 11:24 CDT Source: [employer] Document Id: [id number] CDT!37 documented in this encounter Plan of Treatment Not on filedocumented as of this encounter Visit Diagnoses Not on filedocumented in this encounter
--- OUTSIDE RECORDS SUMMARY | 2021-12-11 07:59 | XMS_ITS | Encounter Summary ---
:1960 Author Organization [facility] Address [address] [place] [address] Care Team Providers Name Role Phone Unavailable Primary Care Provider Unavailable Encounter Details Date Type Department Care Team Description 01/16/2014 Hospital Encounter HX [facility] INTERNMED Galen Sousa V., ACCOUNT DEVELOPMENT SPECIALIST, C.N.P. [address] [place] [address] (Wo rk) Social History Tobacco Use Types Packs/Day Years Used Date Smoking Tobacco: Never Assessed Sex Assigned at Date Recorded Not on file documented as of this encounter Last Filed Vital Signs Vital Sign Reading Time Taken Comments Blood Pressure 146/92 01/16/2014 2:14 PM CDT Pulse 64 01/16/2014 2:14 PM CDT Temperature - - Respiratory Rate 18 01/16/2014 2:14 PM CDT Oxygen Saturation - - Inhaled Oxygen Concentration - - Weight 145 kg (318 lb 9 oz) 01/16/2014 2:14 PM CDT Height 178 cm (5' 10.08) 01/16/2014 2:14 PM CDT Body Mass Index 45.61 01/16/2014 2:14 PM CDT documented in this encounter Progress Notes Gisselle Batista, Jeff.P.N. - 01/16/2014 2:19 PM CDT Wound Care Wound Care Entered On: 01/16/2014 14:19 CDT Performed On: 01/16/2014 14:19 CDT by GISSELLE BATISTA Integumentary Pain Symptoms : Yes GISSELLE BATISTA - 01/16/2014 14:19 CDT Pain Pain Assessment Grid Pain 1 Location : Lower leg GISSELLE BATISTA - 01/16/2014 14:19 CDT Source: [employer] Document Id: [id number] CDT!7 Alexander Sousa APRN, C.N.P. - 01/16/2014 1:45 PM CDT [id number] HISTORY OF PRESENT ILLNESS Yakelin is a 53-year-old male who has a job where he works and stands on his feet. He has presented for bilateral lower extremity venous stasis ulcers. He has recently started being seen at the [facility] by Dr. Avery. He has a history of bilateral lower extremity venous stasis ulcers in the past. He did have venous ablations 12 years ago at the [facility]. He has had right lower extremity wound area pain up until recently. He has had a Unna boots on both legs and has tolerated them fairly well. He states it is very hard when he is working 8 hours standing on his feet as his legs sweat and itis hard to tolerate the Unna boot. However, he has no edema in his legs from having the compression. He denies any complaints with any review of systems. He also states he was recently diagnosed as being diabetic with hypertension and has followup appointments at the [facility]. PHYSICAL EXAMINATION SKIN: Right lower extremity has venous stasis and hemosiderin changes. There is no edema in the leg.The wound itself shows more granulation. There is less erythema in the periwound area. No tunneling,undermining, odor. Drainage is scant serous. Left lower extremity shows no edema. The wound bed shows slough with granulating buds seen through. No tunneling, undermining, odor, drainage or edema. IMPRESSION/REPORT/PLAN Healing bilateral lower extremity venous stasis ulcers. PROCEDURE Procedural pause conducted to verify: Correct patient, identity, procedure to be performed and as applicable, correct side and site, correct patient position and availability of special requirements. Wounds were cleansed with saline and PCMX, rinsed well. Selective debridement was done using Celleration ultrasonic MIST therapy for 3 minutes. Wounds were rinsed with saline and dried. Mepilex Ag foam was applied over both sides. This was held in place with a light Kerlix wrap. Bilateral compression was obtained using a knee-high white edema flow stockingand Tubigrip on the top. He is to change his dressings every other day, sooner if needed. He is to reapply the Tubigrip compression in the morning and take it off at night when he goes to bed. He worksthe next 6 days in a row and therefore will return next Tuesday for ongoing wound care. He is to call with any questions or concerns. Alexander Sousa CNP/yi Electronically Signed By: ALEXANDER SOUSA CNP On: 01/16/2014 04:30 PM Source: [facility] MHSDOLBEYNONRADSYS Document Id: [id number] documented in this encounter Miscellaneous Notes Miscellaneous - Alexander Sousa APRN, C.N.P. - 01/16/2014 2:14 PM CDT Ambulatory Patient Summary [address] [id number] Visit Information Name: MARCO AGLORIAKG JOSE GUADALUPE ADAMS [facility] Number: [id number] Current Date: 01/16/2014 14:14:22 Physicians Attending Provider: ALEXANDER SOUSA CNP Primary Care Provider: PCP, UNASSIGNED - OW YAKELIN RIDLEYRAMAKRISHNA ADAMS has been given the following list [...] Changes/Routing ibuprofen (Advil) as needed for Pain traMADol (traMADol 50 mg oral tablet) 1 Tablet(s), Oral, every 6 hours as needed for Pain Stop Taking the Following Medications: Medication list as of 01-16-14 14:14 Attention: If you have any medications at [...] Electronically Signed By: ALEXANDER SOUSA CNP Signed On:16-JAN-2014 14:14:00 Your Allergies & Intolerances Substance Reaction Symptoms [...] Your Upcoming Appointments Date Time Location Provider 01/18/2014 10:30 [facility]Med Alexander Sousa CNP, V Attention: Contact your local Clinic if further appointment detail needed. Your Goals/Additional instructions: Source: [facility] POWERCHART Document Id: [id number] Miscellaneous - Alexander Sousa APRN, C.N.P. - 01/16/2014 2:14 PM CDT Ambulatory Discharge Medication List [address] [id number] Visit Information Name: JOSE GUADALUPE RIDLEY [facility] Number: [id number] Visit Date: 01/16/2014 14:14:21 Attending Provider: ALEXANDER SOUSA CNP Primary Care Provider: PCP, UNASSIGNED - OW YAKELIN RIDLEYRAMAKRISHNA ADAMS has been given the following list [...] Changes/Routing ibuprofen (Advil) as needed for Pain traMADol (traMADol 50 mg oral tablet) 1 Tablet(s), Oral, every 6 hours as needed for Pain Stop Taking the Following Medications: Medication list as of 01-16-14 14:14 Attention: If you have any medications at [...] of emergency. Electronically Signed By: ALEXANDER SOUSA V MOTOR HOTEL MANAGER Signed On:16-JAN-2014 14:14:00 Additional Information: Source: [facility] POWERCHART Document Id: [id number] Miscellaneous - Gisselle Batista L.P.N. - 01/16/2014 2:14 PM CDT Adult Collection Systems Consultant Intake/History Adult Collection Systems Consultant Intake/History Entered On: 01/16/2014 14:19 CDT Performed On: 01/16/2014 14:14 CDT by GISSELLE BATISTA Intake Chief Complaint : Wound care both lower legs Temperature Core : 36.7 DegC(Converted to: 98.1 DegF) Peripheral Pulse Rate : 64 /min Respiratory Rate : 18 /min Systolic Blood Pressure : 146 mmHg (HI) Diastolic Blood Pressure : 92 mmHg (>HHI) NIBP Mean : 110 mmHg BP Location : Right upper extremity Blood Pressure Cuff Size : Large Height : 178 cm(Converted to: 5 ft 10 inch(es), 70 inch(es)) Actual Weight : 144.5 kg(Converted to: 318 lb 9 oz) Weight Source : Standing scale Dosing Weight Clinic : 144.5 kg Clinic BSA : 2.67 Body Mass Index : 45.61 kg/m2 GISSELLE BATISTA - 01/16/2014 14:14 CDT General Info Information Given By : Patient Preferred Communication Mode : Verbal Languages : Citizen Of [place] Is Patient Female and 13-50 no hysterectomy : No GISSELLE BATISTA - 01/16/2014 14:14 CDT Subjective Pain Symptoms : Yes GISSELLE BATISTA - 01/16/2014 14:14 CDT Pain Pain Assessment Grid Pain 1 Location : Lower leg Laterality : Bilateral Intensity : 4 Quality : Burning, Sharp Alleviating Factors : Medication GISSELLE BATISTA - 01/16/2014 14:14 CDT Dependent Habits Tobacco Use/Currently Using : No Tobacco Use/Last 12 months : No Exposure to Tobacco Smoke : Other: non smoker Smoking Status : Never smoker GISSELLE BATISTA - 01/16/2014 14:14 CDT [facility] Document Id: [id number] CDT!37 documented in this encounter Plan of Treatment Not on filedocumented as of this encounter Visit Diagnoses Not on filedocumented in this encounter
--- OUTSIDE RECORDS SUMMARY | 2021-12-11 07:59 | XMS_ITS | Encounter Summary ---
:1960 Author Organization [facility] Address [address] [place] [address] Care Team Providers Name Role Phone Unavailable Primary Care Provider Unavailable Encounter Details Date Type Department Care Team Description 04/21/2010 Hospital Encounter HX [facility] Zoila Vivar a, EMR IMPLEMENTATION SPECIALIST, C.N.P. Social History Tobacco Use Types Packs/Day Years Used Date Smoking Tobacco: Never Assessed Sex Assigned at Date Recorded Not on file documented as of this encounter Progress Notes Merary Vivar - 04/21/2010 12:00 AM CST [id number] CHIEF COMPLAINT / REASON FOR VISIT The patient comes in today for wound care. HISTORY OF PRESENT ILLNESS The patient has venous stasis insufficiency with an ulcer of his left medial malleolus. We last saw the patient on 04/14/2010. He has been changing his dressing everyday to every other day, depending on the drainage, which he states has been more lately. His leg has also been hurting him more. He feels as if the skin is quite sore around the wound. He has been trying to put Vanicream around his dry skin on a daily basis, but he is not consistent with that. He does, continue, however, to wear his compression socks. He is as active as he is able. He does take Vicodin for pain if needed. He has no new other concerns or complaints. CURRENT MEDICATIONS Reviewed and no changes per EMR. ALLERGIES Reviewed and no changes per EMR. VITAL SIGNS Reviewed per EMR. PHYSICAL EXAM GENERAL: Obese, well-developed 50-year-old male whom is non-ill appearing, in no acute distress. EXTREMITIES: Left lateral malleolus shows a wound that is approximately 1.1 x 1 x 0.2 cm. There is approximately 70% granulating buds, 30% yellow loosely adherent slough. There is no undermining or tunneling noted. Periwound is slightly denuded, approximately 3 to 4 cm around the wound. There is hemosiderin staining noted and very scant edema. He does have positive pulses, dorsalis pedis and posterior tibialis 2+/4+. There is pain with palpation of the wound. IMPRESSION / REPORT / PLAN PROCEDURE: Sharp debridement is done to partial thickens with a curette down to the granulating tissue. The area is then cleansed with SAF-Clens. I then applied Amerigel, Skin-Prep and dimethicone lotion to the dry skin. We then covered the wound with PolyMem wick, covering then with a PolyMem max 4 x 4. We lightly wrapped with Kerlix and then his compression socks. 1) Venous stasis insufficiency with ulcer. PLAN: He will do the dressing changes on a daily basis. We did give him the supplies to be able to do that. I also gave him dimethicone lotion and the Amerigel. He will follow up in 1 week as already scheduled. He will continue to take his Vicodin as directed. I encouraged him to let me know if his symptoms of pain worsen. The patient verbalized understanding and agreement of plan of care and medications as outlined above. Juliann Pappas, [facility] Anyi, F.N.P.,B.C. Electronically Signed By:MERARY VIVAR DRILLING ENGINEER On 04/23/2010 04:16 PM Source: [facility] MHSDOLBEYNONRADSYS Document Id: [id number] ENTER MAINTENANCE documented in this encounter Miscellaneous Notes Miscellaneous - Romie Stephenson R.N. - 04/21/2010 8:32 AM CST Adult Scanner Supervisor Intake/History Adult Scanner Supervisor Intake/History Entered On: 04/21/2010 8:33 CARPENTER MAINTENANCE Performed On: 04/21/2010 8:32 CARPENTER MAINTENANCE by ROMIE STEPHENSON Intake Chief Complaint: woundcare Temperature Oral: 36.6C(Converted to: 97.9DegF) Systolic Blood Pressure: 122mmHg Diastolic Blood Pressure: 84mmHg NIBP Mean: 97mmHg BP Location: Right upper extremity Actual Weight: 148.200kg(Converted to: 326lb 12oz) Dosing Weight Clinic: 148.20kg ROMIE STEPHENSON - 04/21/2010 8:32 CARPENTER MAINTENANCE Subjective Pain Symptoms: Yes ROMIE STEPHENSON - 04/21/2010 8:32 CARPENTER MAINTENANCE Pain Pain Assessment Grid Pain 1 Location: Lower leg Laterality: Left Intensity: 10 ROMIE STEPHENSON - 04/21/2010 8:32 CARPENTER MAINTENANCE Dependent Habits Tobacco Use/Currently Using: No Exposure to Tobacco Smoke: Other: non smoker Alcohol Use: Yes ROMIE STEPHENSON - 04/21/2010 8:32 CARPENTER MAINTENANCE Allergies Allergies (Active) NKA Estimated Onset Date: Unspecified ; Created By: CLARISA MARAVILLA; Reaction Status: Active ;Category: Drug ; Substance: NKA ; Type: Allergy ; Updated By: CLARISA MARAVILLA; Source: Patient; Reviewed Date: 04/21/2010 8:31 CARPENTER MAINTENANCE [facility] Document Id: [id number] CARPENTER MAINTENANCE!22 ENTER MAINTENANCE documented in this encounter Plan of Treatment Not on filedocumented as of this encounter Visit Diagnoses Not on filedocumented in this encounter
--- OUTSIDE RECORDS SUMMARY | 2021-12-11 07:59 | XMS_ITS | Encounter Summary ---
:1960 Author Organization [facility] Address [address] [place] [address] Care Team Providers Name Role Phone Unavailable Primary Care Provider Unavailable Encounter Details Date Type Department Care Team Description 03/09/2011 Hospital Encounter HX [facility] Zoila Madison, ZOE, C.N.P. Social History Tobacco Use Types Packs/Day Years Used Date Smoking Tobacco: Never Assessed Sex Assigned at Date Recorded Not on file documented as of this encounter Plan of Treatment Not on filedocumented as of this encounter Visit Diagnoses Not on filedocumented in this encounter
--- OUTSIDE RECORDS SUMMARY | 2021-12-11 07:59 | XMS_ITS | Encounter Summary ---
:1960 Author Organization [facility] Address [address] [place] [address] Care Team Providers Name Role Phone Unavailable Primary Care Provider Unavailable Encounter Details Date Type Department Care Team Description 12/31/2013 Hospital Encounter HX [facility] Galen Sousa V., [place], C.N.P. [address] [place] [address] (Wo rk) Social History Tobacco Use Types Packs/Day Years Used Date Smoking Tobacco: Never Assessed Sex Assigned at Date Recorded Not on file documented as of this encounter Last Filed Vital Signs Vital Sign Reading Time Taken Comments Blood Pressure 162/100 12/31/2013 11:24 AM CDT Pulse 68 12/31/2013 11:17 AM CDT Temperature - - Respiratory Rate 18 12/31/2013 11:17 AM CDT Oxygen Saturation - - Inhaled Oxygen Concentration - - Weight 148 kg (326 lb 4.5 oz) 12/31/2013 11:17 AM CDT Height 176 cm (5' 9.29) 12/31/2013 11:24 AM CDT Body Mass Index 47.78 12/31/2013 11:17 AM CDT documented in this encounter Progress Notes Gisselle Batista L.P.N. - 12/31/2013 11:22 AM CDT Wound Care Wound Care Entered On: 12/31/2013 11:22 CDT Performed On: 12/31/2013 11:22 CDT by GISSELLE BATISTA Integumentary Pain Symptoms : Yes GISSELLE BATISTA - 12/31/2013 11:22 CDT Pain Pain Assessment Grid Pain 1 Location : Lower back GISSELLE BATISTA - 12/31/2013 11:22 CDT [facility] POWER[facility] Document Id: [id number] CDT!7 Alexander Sousa APRN, C.N.P. - 12/31/2013 10:37 AM CDT [id number] HISTORY OF PRESENT ILLNESS Tank returns for ongoing wound care of bilateral lower extremity cellulitis with venous stasis ulcers. On Tuesday, the 28 of December, after seeing how much the cellulitis had increased, I gave him a gram of Rocephin, did wound care and sent him to the Urgent Care in [place]. They refused to see himand he went and picked up his Keflex, stayed home, took the Keflex, is now feeling better. He has nocomplaints with review of systems. He has less pain in his wounds. PHYSICAL EXAMINATION The right lower extremity shows Tanmay appearance. There is 1+ edema. There are venous stasis and hemosiderin changes in the periwound skin. The wound is located medial aspect above the malleolus. The wound bed is 100% slough, but there is some granulation seen around the edges. Right lower extremity shows Tanmay appearance. There are venous stasis and hemosiderin changes 1+ edema. The wound is 100% slough and is located on the medial area above inner malleolus. There is some granulation seen around the edges. IMPRESSION/REPORT/PLAN Bilateral lower extremity venous stasis ulcers complicated by history of delayed healing and infection. The wounds were cleansed with saline and PCMX, rinsed well. Procedural pause conducted to verify: Correct patient, identity, procedure to be performed and as applicable, correct side and site, correct patient position and availability of special requirements. Selected debridement was done using Celleration Ultrasonic MIST therapy for 3 minutes. Wounds were dried. Silvercel was applied and 50/50 gentamicin and Bactroban, covered with ABD, and held in place with a Kerlix wrap. He did put his compression stockings on and CWMS was good after application. He will return on January 02 for ongoing wound care. Alexander Sousa CNP/yi Electronically Signed By: ALEXANDER SOUSA CNP On: 01/01/2014 08:13 AM Source: [facility] MHSDOLBEYNONRADSYS Document Id: [id number] documented in this encounter Miscellaneous Notes Miscellaneous - Jerry Flores, C.M.AKristine - 12/31/2013 11:24 AM CDT Health Assessment Health Assessment Entered On: 12/31/2013 11:27 CDT Performed On: 12/31/2013 11:24 CDT by JERRY FLORES Health Assessment Complete Health Assessment Complete or Modified : Annual Health Assessment Annual Health Assessment Completed : Yes JERRY FLORES - 12/31/2013 11:24 CDT Nutrition Nutrition Risk Factors by History Adult : None JERRY FLORES - 12/31/2013 11:24 CDT Functional Current Daily Living Assistance : None JERRY FLORES - 12/31/2013 11:24 CDT Dependent Habits Tobacco Use/Currently Using : No Exposure to Tobacco Smoke : Other: non smoker Smoking Status : Never smoker JERRY FLORES - 12/31/2013 11:24 CDT Psychosocial Domestic Abuse Concerns : None Congregation Preference : No qualifying data available. JERRY FLORES - 12/31/2013 11:24 CDT Advance Directive Advanced Directives : No JERRY FLORES 12/31/2013 11:24 CDT Educ Needs Learning Style Preference Adult Grid Patient : Printed materials, Verbal explanation, Demonstration Family : Demonstration, Printed materials, Verbal explanation JERRY FLORES - 12/31/2013 11:24 CDT Source: [facility] POWERCHART Document Id: [id number] CDT!21 Miscellaneous - Jerry Flores C.M.A. - 12/31/2013 11:24 AM CDT Ambulatory Vitals Height Weight Ambulatory Vitals Height Weight Entered On: 12/31/2013 11:29 CDT Performed On: 12/31/2013 11:24 CDT by JERRY FLORES Vitals/Ht/Wt Systolic Blood Pressure : 162 mmHg (>HHI) Diastolic Blood Pressure : 100 mmHg (>HHI) NIBP Mean : 121 mmHg BP Location : Right upper extremity Blood Pressure Cuff Size : Large Height : 176 cm(Converted to: 5 ft 9 inch(es), 69 inch(es)) JERRY FLORES - 12/31/2013 11:24 CDT Source: Narrative Document Id: [id number] CDT!8 Miscellaneous - Gisselle Batista, L.P.N. - 12/31/2013 11:17 AM CDT Adult Medical Secretary Receptionist Intake/History Adult Medical Secretary Receptionist Intake/History Entered On: 12/31/2013 11:22 CDT Performed On: 12/31/2013 11:17 CDT by GISSELLE BATISTA Chief Complaint : Wound care both lower legs Temperature Core : 36.6 DegC(Converted to: 97.9 DegF) Peripheral Pulse Rate : 68 /min Respiratory Rate : 18 /min Systolic Blood Pressure : 162 mmHg (>HHI) Diastolic Blood Pressure : 98 mmHg (>HHI) NIBP Mean : 119 mmHg BP Location : Right upper extremity Blood Pressure Cuff Size : Large Height : 176 cm(Converted to: 5 ft 9 inch(es), 69 inch(es)) Actual Weight : 148 kg(Converted to: 326 lb 5 oz) Weight Source : Standing scale Dosing Weight Clinic : 148 kg Clinic BSA : 2.69 Body Mass Index : 47.78 kg/m2 GISSELLE BATISTA - 12/31/2013 11:17 CDT General Info Information Given By : Patient Preferred Communication Mode : Verbal Languages : Mongolian Is Patient Female and 13-50 no hysterectomy : No GISSELLE BATISTA - 12/31/2013 11:17 CDT Subjective Pain Symptoms : Yes GISSELLE BATISTA - 12/31/2013 11:17 CDT Pain Pain Assessment Grid Pain 1 Location : Lower back Laterality : Right (Comment: Not as bad as it has been. Seems a little better- Like bee sting [GISSELLE BATISTA - 12/31/2013 11:17 CDT] ) Intensity : 0 Quality : Other: like bee sting Alleviating Factors : Medication GISSELLE BATISTA - 12/31/2013 11:17 CDT Dependent Habits Tobacco Use/Currently Using : No Tobacco Use/Last 12 months : No Exposure to Tobacco Smoke : Other: non smoker Smoking Status : Never smoker GISSELLE BATISTA - 12/31/2013 11:17 CDT Source: Narrative Document Id: [id number] CDT!37 Miscellaneous - Alexander Sousa APRN, C.NKristinePKristine - 12/31/2013 10:50 AM CDT Ambulatory Patient Summary [address] [id number] Visit Information Name: JOSE GUADALUPE RIDLEY [facility] Number: [id number] Current Date: 12/31/2013 10:50:05 Physicians Attending Provider: ALEXANDER SOUSA CNP Primary [...] Take Indications/Special Instructions/Comments/Notes for Patient Medication Changes/Routing *albuterol (albuterol 90 mcg/inh inhalation aerosol) PRN cephalexin (Keflex 500 mg oral capsule) 1 cap, Oral, four times a day x 10 day(s) *doxycycline (doxycycline hyclate 100 mg oral tablet) 1 Tablet(s), Oral, two times a day x 10 day(s) hydrocodone-acetaminophen (Vicodin 5 mg-500 mg oral tablet) See Instructions, as needed for Pain 1 to 2 tablets PO q6hr. / No more than 4,000mg acetaminophen/24hrs ibuprofen (Advil) as needed for Pain traMADol (traMADol 50 mg oral tablet) 1 Tablet(s), Oral, every 6 hours as needed for Pain triamcinolone topical (triamcinolone topical 0.1% ointment) 1 florence, Topical, two times a day * You have let us know that you are not taking this medication as listed. Please talk with your primary care provider or the health care provider who prescribed the medication as soon as possible. Stop Taking the Following Medications: Medication list as of 12-31-13 10:50 Attention: If you have any medications at [...] Electronically Signed By: ALEXANDER SOUSA CNP Signed On:31-DEC-2013 10:49:51 Your Allergies & Intolerances Substance Reaction Symptoms Category Comments No Known Allergies Drug Your Problem List Problem Status Onset Comments Herniated Disc Active 05/31/2001 Stasis Dermatitis Active 09/20/2007 Edema Active 04/23/2008 Eczema Active 04/24/2008 Ulcer of skin NOS Active 11/20/2009 Venous Stasis Ulcer with Inflammation Active 11/24/2009 Venous insufficiency NOS Active 03/16/2010 Cellulitis Leg R Active Cellulitis Leg L Active Your Upcoming Appointments Date Time Location Provider 01/02/2014 14:30 [facility] Alexander Sousa CNP, V 01/08/2014 09:10 [facility] Curtis Avery MD Attention: Contact your local Clinic if further appointment detail needed. Your Goals/Additional instructions: Source: [facility] POWERCHART Document Id: [id number] Miscellaneous - Alexander Sousa APRN, C.N.P. - 12/31/2013 10:50 AM CDT Ambulatory Discharge Medication List [address] [place] [id number] Visit Information Name: JOSE GUADALUPE RIDLEY [facility] Number: [id number] Visit Date: 12/31/2013 10:50:04 Attending Provider: ALEXANDER SOUSA CNP Primary Care [...] Take Indications/Special Instructions/Comments/Notes for Patient Medication Changes/Routing *albuterol (albuterol 90 mcg/inh inhalation aerosol) PRN cephalexin (Keflex 500 mg oral capsule) 1 cap, Oral, four times a day x 10 day(s) *doxycycline (doxycycline hyclate 100 mg oral tablet) 1 Tablet(s), Oral, two times a day x 10 day(s) hydrocodone-acetaminophen (Vicodin 5 mg-500 mg oral tablet) See Instructions, as needed for Pain 1 to 2 tablets PO q6hr. / No more than 4,000mg acetaminophen/24hrs ibuprofen (Advil) as needed for Pain traMADol (traMADol 50 mg oral tablet) 1 Tablet(s), Oral, every 6 hours as needed for Pain triamcinolone topical (triamcinolone topical 0.1% ointment) 1 florence, Topical, two times a day * You have let us know that you are not taking this medication as listed. Please talk with your primary care provider or the health care provider who prescribed the medication as soon as possible. Stop Taking the Following Medications: Medication list as of 12-31-13 10:50 Attention: If you have any medications at [...] Electronically Signed By: ALEXANDER SOUSA CNP Signed On:31-DEC-2013 10:49:51 Additional Information: Source: [facility] POWERCHART Document Id: [id number] documented in this encounter Plan of Treatment Not on filedocumented as of this encounter Visit Diagnoses Not on filedocumented in this encounter
--- OUTSIDE RECORDS SUMMARY | 2021-12-11 07:59 | XMS_ITS | Encounter Summary ---
:1960 Author Organization [facility] Address [address] [place] [address] Care Team Providers Name Role Phone Unavailable Primary Care Provider Unavailable Encounter Details Date Type Department Care Team Description 05/17/2011 Hospital Encounter HX NO MAPPING Harper Peña M.D. [address] [place] [address] [phone] (Wo rk) Social History Tobacco Use Types Packs/Day Years Used Date Smoking Tobacco: Never Assessed Sex Assigned at Date Recorded Not on file documented as of this encounter Plan of Treatment Not on filedocumented as of this encounter Procedures Procedure Name Priority Date/Time Associated Diagnosis Comme nts DX CHEST AP OR PA Routine 05/17/2011 11:34 AM Res ults for this AND LATERAL 2 VIEWS COMPUTER SYSTEMS CONSULTANT procedur e are in the results section. documented in this encounter Results DX Chest AP or PA and Lateral 2 Views (05/17/2011 11:34 AM COMPUTER SYSTEMS CONSULTANT) Anatomical Region Laterality Modality Chest N/A Radiographic Imaging Specimen (Source) Anatomical Collection Method Collection Time Re ceived Time Location / / Volume Laterality 05/17/2011 11:34 AM COMPUTER SYSTEMS CONSULTANT Narrative 05/17/2011 11:49 AM COMPUTER SYSTEMS CONSULTANT Indication Trouble breathing. Findings: ??Heart size normal. ??Mild ce ntral atelectasis. ??Otherwise negative. Comparison 04/21/2008. Munir Smiley M.D. dmp ?D: ? THIS IS AN ELEC TRONICALLY VERIFIED REPORT 05/17/2011 11:49 AM: ??Munir Smiley M.D . Procedure Note Munir Smiley M.D. / Provider, Alonso Acharya - 08/24/2016 Indication Trouble breathing. Findings: Heart size normal. Mild centra l atelectasis. Otherwise negative. Comparison 04/21/2008. Munir Smiley M.D. dmp T: 05/17/2011 11:49 am THIS IS AN ELECTRONICALLY VERIFIED REPORT 05/17/2011 11:49 AM: Munir Smiley M.D. Jesi Robertson(Lorna) [facility] DI[facility]NO[facility]AGING PROC EDURES documented in this encounter Visit Diagnoses Not on filedocumented in this encounter
--- OUTSIDE RECORDS SUMMARY | 2021-12-11 07:59 | XMS_ITS | Encounter Summary ---
:1960 Author Organization [facility] Address [address] [place] [address] Care Team Providers Name Role Phone Unavailable Primary Care Provider Unavailable Encounter Details Date Type Department Care Team Description 02/01/2014 Hospital Encounter HX [facility] Ciaran Holloway, CONS P.A.-C. Social History Tobacco Use Types Packs/Day Years Used Date Smoking Tobacco: Never Assessed Sex Assigned at Date Recorded Not on file documented as of this encounter Plan of Treatment Not on filedocumented as of this encounter Visit Diagnoses Not on filedocumented in this encounter
--- OUTSIDE RECORDS SUMMARY | 2021-12-11 07:59 | XMS_ITS | Encounter Summary ---
:1960 Author Organization [facility] Address [address] [place] [address] Care Team Providers Name Role Phone Unavailable Primary Care Provider Unavailable Encounter Details Date Type Department Care Team Description 02/26/2014 Hospital Encounter HX [facility] INTERNMED Galen Sousa V., PRESS ROOM SUPERVISOR, C.N.P. [address] [place] [address] (Wo rk) Social History Tobacco Use Types Packs/Day Years Used Date Smoking Tobacco: Never Assessed Sex Assigned at Date Recorded Not on file documented as of this encounter Last Filed Vital Signs Vital Sign Reading Time Taken Comments Blood Pressure 146/90 02/26/2014 9:20 AM SOILS ANALYST Pulse 64 02/26/2014 9:20 AM SOILS ANALYST Temperature - - Respiratory Rate 18 02/26/2014 9:20 AM SOILS ANALYST Oxygen Saturation - - Inhaled Oxygen Concentration - - Weight 145 kg (318 lb 9 oz) 02/26/2014 9:20 AM SOILS ANALYST Height 178 cm (5' 10.08) 02/26/2014 9:20 AM SOILS ANALYST Body Mass Index 45.61 02/26/2014 9:20 AM SOILS ANALYST documented in this encounter Progress Notes Gisselle Batista, L.P.N. - 02/26/2014 9:25 AM CST Wound Care Wound Care Entered On: 02/26/2014 9:25 SOILS ANALYST Performed On: 02/26/2014 9:25 SOILS ANALYST by GISSELLE BATISTA Integumentary Pain Symptoms : Yes GISSELLE BATISTA - 02/26/2014 9:25 SOILS ANALYST Pain Pain Assessment Grid Pain 1 Location : Lower leg GISSELLE BATISTA - 02/26/2014 9:25 SOILS ANALYST [facility] Document Id: [id number] SOILS ANALYST!7 S ANALYST Alexander Sousa APRN, C.N.P. - 02/26/2014 8:33 AM CST [id number] HISTORY OF PRESENT ILLNESS Tank is a 54-year-old, male with bilateral lower extremity venous stasis ulcers. 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 He does have compression stockings which he wears. He canceled his appointment here last week and presents today. He has been using Medihoney at home for wound care. He complains of pain in his right wound. He states he takes 2 pain pills a day, 1 when he changes his dressing and the other when he comes home from work. He takes Advilwhen he is at work. He states he has 2 days of pain pills left. I explained to him that he should cut back to one [place] a day and supplement what he is doing with Ibuprofen. I explained that I will be out of the office starting on the returning on the . If he needs a refill or if anything changes he will need to contact Dr. Avery. Tank also has been newly diagnosed as a diabetic and with hypertension and has canceled all his follow up appointments that were scheduled with the [facility] regarding these issues. I am encouraging him to contact his primary care provider to help re-establish the appointments and the treatments needed for the diabetes and blood pressure. I did explain to Tank that being newly diagnosed as diabetic, he would need to control his diabetes in order for wounds to properly heal and to help prevent long-term complications such as blindness and renal failure as well as neuropathy. Tank stated on March 14 he has an appointment at the [facility] and was indicating he did not want to keep this appointment. I did print the note from Dr. Dunia Fernández on the plan of care and the importance of him returning for vascular studies and possible interventions in the future to get to the root of why he is having these venous stasis ulcers. I also encouraged him to come at least 2 to 3 times a week for ultrasonic MIST therapy treatments as well as wound care. I reiterated that the interventions that I am doing are working on the skin but the interventions that the [facility] could afford him would be to get to the root of the problem which is vascular. Tank verbalized that he felt that [place] repeats everything I have done. He is concerned about a $2000 bill and is unsure that he will keep this appointment. Once again, I gently encouraged him to keep the appointment as well as to reinstate his care with Dr. Avery. PHYSICAL EXAMINATION SKIN: The right lower extremity has 1+ edema. The wound measures 4 x 3cm. There is a lot of epithelization that has occurred within the wound bed. There is no tunneling, undermining or odor. Drainage is moderate, honey-colored. Left lower extremity has 1+ edema. The wound measures 5 x 3cm. The wound bed has changed in configuration due to epithelization and granulation. There is no tunneling, undermining, odor. Drainage is honey-colored. IMPRESSION/REPORT/PLAN Bilateral lower extremity venous stasis ulcers. Procedural pause conducted to verify: Correct patient, identity, procedure to be performed and as applicable, correct side and site, correct patient position and availability of special requirements. Wounds were cleansed with saline and PCMX, rinsed well. Selective debridement was done using Celleration ultrasonic MIST therapy treatment for 3 minutes. Wounds were rinsed with saline and dried. Medihoney was applied to both wounds, covered with half of anABD held in place with a Kerlix wrap. His compression stockings were reapplied. I encouraged him to see Dr. Avery if he needs any further pain medications or has any concerns about the wounds as I will be out of the office and I encouraged him to keep his appointment at the [facility]. I did print off the visit with Dr. Fernández and gave him a copy. He will look at his schedule and set up a return appointment for the second week in March. Alexander Sousa CNP/yi Electronically Signed By: ALEXANDER SOUSA CNP On: 02/26/2014 12:02 PM Modified by and Electronically Signed by: ALEXANDER SOUSA CNP On: 02/26/2014 12:02 PM Source: [facility] MHSDOLBEYNPRABHASYS Document Id: [id number] S ANALYST documented in this encounter Miscellaneous Notes Telephone Encounter - Conversion, Historical Provider Ser - 03/04/2014 10:22 AM CST *Phone Message Document Contains Addenda Addendum by ALEXANDER SOUSA CNP on 12 March 2014 08:22:33 SOILS ANALYST From: ALEXANDER SOUSA CNP To: Wound Clinic Nurse; Sent: 03/12/2014 08:22:33 SOILS ANALYST Subject: RE: *Phone Message He is scheduled Addendum by GISSELLE BATISTA on 11 March 2014 12:27:13 SOILS ANALYST From: GISSELLE BATISTA ( Wound Clinic Nurse) To: ALEXANDER SOUSA CNP; Sent: 03/11/2014 12:27:13 SOILS ANALYST Subject: FW: *Phone Message Addendum by GISSELLE BATISTA on 11 March 2014 12:27:01 SOILS ANALYST Patient is scheduled to be seen 03/12/14 Addendum by BUZZ SIGALA LPN on 04 March 2014 16:07:21 SOILS ANALYST Left message for patient to return our call. From: MARLIN MALDONADO ([facility] Bee Farmer) To: Wound Clinic Nurse; Sent: 03/04/2014 10:22:35 SOILS ANALYST Subject: *Phone Message Caller is: ( x) Patient ( ) Mother ( ) Father ( ) Spouse ( ) Daughter ( ) Son ( ) Pharmacy ( ) Other: Physician: Patient MRN #: Reason for Call: Patient would like to schedule an appt for 03/11 if possible. Please call him at [phone] Message: Advice/Action: Source used: ( ) Verbalizes [...] back cell phone number ( ) Source: [facility] POWERCHART Document Id: [id number] Miscellaneous - Gisselle Batista L.P.NKristine - 02/26/2014 9:20 AM CST Adult Veneer Jointer Intake/History Document Has Been Updated Adult Veneer Jointer Intake/History Entered On: 02/26/2014 9:25 SOILS ANALYST Performed On: 02/26/2014 9:20 SOILS ANALYST by GISSELLE BATISTA Intake Chief Complaint : Wound care both lower legs Temperature Core : 36.2 DegC(Converted to: 97.2 DegF) (LOW) Peripheral Pulse Rate : 64 /min Respiratory Rate : 18 /min Systolic Blood Pressure : 146 mmHg (HI) Diastolic Blood Pressure : 90 mmHg (HI) NIBP Mean : 109 mmHg BP Location : Right upper extremity Blood Pressure Cuff Size : Large Height : 178 cm(Converted to: 5 ft 10 inch(es), 70 inch(es)) Actual Weight : 144.5 kg(Converted to: 318 lb 9 oz) Weight Source : Standing scale Dosing Weight Clinic : 144.5 kg Clinic BSA : 2.67 Body Mass Index : 45.61 kg/m2 GISSELLE BATISTA - 02/26/2014 9:20 SOILS ANALYST General Info Information Given By : Patient Preferred Communication Mode : Verbal Languages : Estonian Is Patient Female and 13-50 no hysterectomy : No GISSELLE BATISTA - 02/26/2014 9:20 SOILS ANALYST Subjective Pain Symptoms : Yes GISSELLE BATISTA 02/26/2014 9:20 SOILS ANALYST Pain Pain Assessment Grid Pain 1 Location : Lower leg Laterality : Right Intensity : 4 Quality : Burning, Throbbing Alleviating Factors : Medication GISSELLE BATISTA - 02/26/2014 9:20 SOILS ANALYST Dependent Habits Tobacco Use/Currently Using : No Tobacco Use/Last 12 months : No Exposure to Tobacco Smoke : Other: non smoker Smoking Status : Never smoker GISSELLE BATISTA - 02/26/2014 9:20 SOILS ANALYST Allergy (As Of: 02/26/2014 09:25:42 SOILS ANALYST) Allergies (Active) silver containing compounds Estimated Onset Date: Unspecified ; Reactions: rash, itching ; Created By: GISSELLE BATISTA; Reaction Status: Active ; Category: Other ; Substance: silver containing compounds ; Type: Allergy ; Updated By: GISSELLE BATISTA; Reviewed Date: 02/26/2014 9:20 SOILS ANALYST ID Screen Drug Resistant Organism : No Travel Within Last 21 Days : No GISSELLE BATISTA - 02/26/2014 9:20 SOILS ANALYST Source: [facility] [place] Document Id: [id number] SOILS ANALYST!40 S ANALYST Miscellaneous - Alexander Sousa V, ZOE, C.N.P. - 02/26/2014 9:16 AM CST Ambulatory Patient Summary [address] [id number] Visit Information Name: JOSE GUADALUPE RIDLEY [facility] Number: [id number] Current Date: 02/26/2014 09:16:22 Physicians Attending Provider: ALEXANDER SOUSA CNP Primary [...] for Pain Stop Taking the Following Medications: HYDROcodone-acetaminophen ([place] 5 mg-325 mg oral tablet) levofloxacin (Levaquin 500 mg oral tablet) Medication list as of 02-26-14 09:16 Attention: If you have any medications at [...] Electronically Signed By: ALEXANDER SOUSA CNP Signed On:26-FEB-2014 09:16:03 Your Allergies & Intolerances Substance Reaction Symptoms [...] appointment detail needed. Your Goals/Additional instructions: Source: [facility] POWERCHART Document Id: [id number] S ANALYST Miscellaneous - Alexander Sousa APRN, C.N.P. - 02/26/2014 9:16 AM CST Ambulatory Discharge Medication List [address] [id number] Visit Information Name: JOSE GUADALUPE RIDLEY [facility] Number: [id number] Visit Date: 02/26/2014 09:16:21 Attending Provider: ALEXANDER SOUSA CNP Primary Care [...] for Pain Stop Taking the Following Medications: HYDROcodone-acetaminophen ([place] 5 mg-325 mg oral tablet) levofloxacin (Levaquin 500 mg oral tablet) Medication list as of 02-26-14 09:16 Attention: If you have any medications at [...] Electronically Signed By: ALEXANDER SOUSA CNP Signed On:26-FEB-2014 09:16:03 Additional Information: Source: [facility] POWERCHART Document Id: [id number] S ANALYST documented in this encounter Plan of Treatment Not on filedocumented as of this encounter Visit Diagnoses Not on filedocumented in this encounter
--- OUTSIDE RECORDS SUMMARY | 2021-12-11 07:59 | XMS_ITS | Encounter Summary ---
:1960 Author Organization [facility] Address [address] [place] [address] Care Team Providers Name Role Phone Unavailable Primary Care Provider Unavailable Encounter Details Date Type Department Care Team Description 07/06/2011 Hospital Encounter HX [facility] Zoila Vivar a, ZOE, C.N.P. Social History Tobacco Use Types Packs/Day Years Used Date Smoking Tobacco: Never Assessed Sex Assigned at Date Recorded Not on file documented as of this encounter Last Filed Vital Signs Vital Sign Reading Time Taken Comments Blood Pressure 116/84 07/06/2011 9:15 AM CDT Pulse - - Temperature - - Respiratory Rate - - Oxygen Saturation - - Inhaled Oxygen Concentration - - Weight 146 kg (321 lb 10.4 oz) 07/06/2011 9:15 AM CDT Height - - Body Mass Index - - documented in this encounter Progress Notes Merary Vivar - 07/06/2011 12:00 AM CDT [id number] CHIEF COMPLAINT/REASON FOR VISIT Wound care HISTORY OF PRESENT ILLNESS Patient has a longstanding history of venous insufficiency with recurrent stasis ulcers. Currently he has an ulcer on his left lower extremity with also a few new open areas. He has been putting Promogran to the wound beds and covering with Telfa and Sarah. He states he has been wearing his compression socks regularly. He just does not have any on today as he was coming in to see me. Denies any other concern or complaints. CURRENT MEDICATIONS Reviewed EMR dated 07/06/2011 and no changes. ALLERGIES Reviewed EMR dated 07/06/2011 and no changes. VITAL SIGNS Reviewed EMR dated 07/06/2011 and no changes. PHYSICAL EXAM GENERAL: Obese, well-developed 51-year-old male whom is [id number] in no acute distress. EXTREMITIES: Left medial lower extremity just superior to the malleolus shows the prior wound that is approximately 1.5 x 1.5 x 0.3 cm. There is significant bridging between the 2 small open lesions. Wound beds are covered with loosely yellow adherent slough. There is 1 smaller ulcerative lesion that is approximately 0.4 x 0.5 x 0.1 cm. Again wound bed is covered with yellow adherent slough. There is hemosiderin staining noted and 1 to 2 plus edema noted. No sign of infection and there is a small amount of serous drainage. PROCEDURE: During this procedure the universal protocol was utilized. The patient's identity was confirmed by no less than two patient identifiers, correct procedure was verified, correct site was verified and marked as applicable and a final pause was completed. Sharp debridement of a curette to remove loosely yellow adherent slough. Area was then cleansed with normal saline. Amerigel ointment was applied to the wound bed covered then by Telfa and gauze. IMPRESSION/REPORT/PLAN Venous insufficiency with ulcer. Patient will continue dressing changes as done above. I will order him some Amerigel to use as directed. He will follow up in 2 weeks or sooner if new concerns or questions arise. Patient verbalized understanding and agreement as outlined above. Greater than 50% of a 30-minute visit with discussion on followup and prevention. Juliann Pappas, t R.N., F.N.P.,B.C. Electronically Signed By: MERARY VIVAR NP On: 07/09/2011 09:18 AM Source: [facility] MHSDOL[facility]YN[facility] Document Id: [id number] documented in this encounter Miscellaneous Notes Miscellaneous - Merary Vivar - 07/06/2011 1:50 PM CDT Ambulatory Patient Summary [facility] [address] [place] [address] Visit Information Name: JOSE GUADALUPE RIDLEY Current Date: 07/06/2011 13:50:55 Physicians Attending Provider: MERARY VIVAR BOREMATIC OPERATOR Primary Care Provider: MERARY VIVAR BOREMATIC OPERATOR Your Medications Here is a list of [...] 11/24/2009 Venous insufficiency NOS Active 03/16/2010 Your Upcoming Appointments Date Time Location Reason Provider 07/20/2011 09:15 [facility] Merary Vivar NP Your Goals/Additional instructions: Source: [facility] POWERCHART Document Id: [id number] Miscellaneous - Merary Vivar - 07/06/2011 1:50 PM CDT Ambulatory Depart Summary [place] [address] [id number] Visit Information Name: JOSE GUADALUPE RIDLEY Visit Date: 07/06/2011 13:50:54 Attending Provider: MERARY VIVAR BOREMATIC OPERATOR Primary Care Provider: MERARY VIVAR BOREMATIC OPERATOR JOSE GUADALUPE RIDLEY has been given the [...] youcontact your provider for clarification. Additional Information: Source: [facility] POWERCHART Document Id: [id number] Miscellaneous - Romie Stephenson, R.N. - 07/06/2011 9:15 AM CDT Adult Powder Monkey Intake/History Document Has Been Updated Adult Powder Monkey Intake/History Entered On: 07/06/2011 9:21 CDT Performed On: 07/06/2011 9:15 CDT by ROMIE STEPHENSON Intake Chief Complaint : wound care. ROMIE STEPHENSON - 07/06/2011 9:22 CDT Temperature Oral : 36.4C(Converted to: 97.5DegF) Heart Rhythm : Regular Systolic Blood Pressure : 116mmHg Diastolic Blood Pressure : 84mmHg NIBP Mean : 95mmHg BP Location : Right upper extremity Blood Pressure Cuff Size : Large Actual Weight : 145.9kg(Converted to: 321lb 10oz) Dosing Weight Clinic : 145.90kg ROMIE STEPHENSON - 07/06/2011 9:15 CDT Subjective Pain Symptoms : No ROMIE STEPHENSON - 07/06/2011 9:15 CDT Dependent Habits Tobacco Use/Currently Using : No Exposure to Tobacco Smoke : Other: non smoker Smoking Status : Never smoker ROMIE STEPHENSON - 07/06/2011 9:15 CDT Allergy Allergies (Active) NKA Estimated Onset Date: Unspecified ; Created By: CLARISA MARAVILLA; Reaction Status: Active ;Category: Drug ; Substance: NKA ; Type: Allergy ; Updated By: CLARISA MARAVILLA; Source: Patient; Reviewed Date: 07/06/2011 9:15 CDT Source: [facility] Document Id: [id number] CDT!3 documented in this encounter Plan of Treatment Not on filedocumented as of this encounter Visit Diagnoses Not on filedocumented in this encounter
--- OUTSIDE RECORDS SUMMARY | 2021-12-11 07:59 | XMS_ITS | Encounter Summary ---
:1960 Author Organization [facility] Address [address] [place] [address] Care Team Providers Name Role Phone Unavailable Primary Care Provider Unavailable Encounter Details Date Type Department Care Team Description 03/31/2010 Hospital Encounter HX [facility] Zoila Vivar a, FACILITIES MANAGEMENT EXECUTIVE, C.N.P. Social History Tobacco Use Types Packs/Day Years Used Date Smoking Tobacco: Never Assessed Sex Assigned at Date Recorded Not on file documented as of this encounter Progress Notes Merary Vivar - 03/31/2010 12:00 AM CST [id number] CHIEF COMPLAINT / REASON FOR VISIT The patient is here for wound care. HISTORY OF PRESENT ILLNESS We have been seeing him about once per week. He has been changing his dressing every other day at home. He does think the wound has gotten significantly smaller. He is taking pain medications as prescribed. He did have contact dermatitis from the silver dressing at our last visit, so his skin has been more sensitive. He has been applying Vanicream to it when he changes his dressing. No other new concerns or complaints. CURRENT MEDICATIONS Reviewed and no changes per EMR. ALLERGIES Reviewed and no changes per EMR. VITALS SIGNS Per EMR. PHYSICAL EXAM GENERAL: This is an obese, well-developed 50-year-old male who is not ill appearing and in no acute distress. EXTREMITIES: Examination of left medial lower extremity, over the malleolus, wound measures 1.7 x 1 x 0.2 cm. It is a 100% granulating wound bed. There is no fluff undermining, tunneling, or foul odor noted. There is a small amount of serosanguineous discharge. Periwound is erythematous. It is resolving. There is no weeping of the periwound. There is no edema noted. He does have bilateral hemosiderin staining and there is minimal pain with palpation. IMPRESSION / REPORT / PLAN PROCEDURE: The area was cleansed with Saf-Clens. Skin prep was applied to the phyllis wound. We put Amerigel to the wound bed and then covered the wound with a 3 x 3 Allevyn gentle border. 1) Venostasis ulcer with inflammation. The patient will follow up in 2 weeks as directed. He will use his supplies at home to change his dressings every other day. I did encourage him to call me next Tuesday if he needs to be seen, as that is the only day I am in. The patient verbalized understanding and agreement of the plan as outlined above. Juliann Pappas, srw Anyi, F.N.P.,B.C. Electronically Signed By:MERARY VIVAR BARREL LEVELER On 04/03/2010 07:35 PM Source: [facility] MHSDOLBEYNONRADSYS Document Id: [id number] TRONICS ENGINEERING TECHNOLOGIST documented in this encounter Plan of Treatment Not on filedocumented as of this encounter Visit Diagnoses Not on filedocumented in this encounter
--- OUTSIDE RECORDS SUMMARY | 2021-12-11 07:59 | XMS_ITS | Encounter Summary ---
:1960 Author Organization [facility] Address [address] [place] [address] Care Team Providers Name Role Phone Unavailable Primary Care Provider Unavailable Encounter Details Date Type Department Care Team Description 12/28/2013 Hospital Encounter HX [facility] FBHB INTERNMED Galen Sousa V., TRADITIONAL MAORI HEALTH PRACTITIONER, C.N.P. [address] [place] [address] (Wo rk) Social History Tobacco Use Types Packs/Day Years Used Date Smoking Tobacco: Never Assessed Sex Assigned at Date Recorded Not on file documented as of this encounter Last Filed Vital Signs Vital Sign Reading Time Taken Comments Blood Pressure 156/94 12/28/2013 9:50 AM CDT Pulse 64 12/28/2013 9:44 AM CDT Temperature - - Respiratory Rate 18 12/28/2013 9:44 AM CDT Oxygen Saturation - - Inhaled Oxygen Concentration - - Weight - - Height 176 cm (5' 9.29) 12/28/2013 9:50 AM CDT Body Mass Index - - documented in this encounter Progress Notes Gisselle Batista L.P.N. - 12/28/2013 9:49 AM CDT Wound Care Wound Care Entered On: 12/28/2013 9:49 CDT Performed On: 12/28/2013 9:49 CDT by GISSELLE BATISTA Integumentary Pain Symptoms : Yes GISSELLE BATISTA - 12/28/2013 9:49 CDT Pain Pain Assessment Grid Pain 1 Pain 2 Location : Lower leg Lower leg GISSELLE BATISTA - 12/28/2013 9:49 CDT GISSELLE BATISTA - 12/28/2013 9:49 CDT Source: [employer] Document Id: [id number] CDT!9 Alexander Sousa APRN, C.N.P. - 12/28/2013 9:09 AM CDT [id number] HISTORY OF PRESENT ILLNESS Tank is a 53-year-old , obese male with bilateral lower extremity venous stasis ulcers with bilateral lower extremity, 4+ edema, with Tanmay appearance of both legs. He is here for wound care and ultrasonic MIST therapy treatment. Tuesday the was my 1st visit with him. At that time, I gave him 1 g of Rocephin placed him on doxycycline 100 mg 2 times a day as well as doing a wound culture on both legs. The culture results have not returned yet. He states today that he has been unable to take the doxycycline due to vomiting. I told him to stop the doxycycline which he did do. We gave him another 1 g of Rocephin IM today and I will order Keflex 500 mg q.i.d. SYSTEMS REVIEW He complains of severe pain in his right leg. He has pain around the wound and up by his knee. PHYSICAL EXAMINATION Right lower extremity shows 4+ Tanmay edema in the right leg. The erythema has extended to his heel.The wound bed itself appears healthier, however the cellulitis appears worse. The wound bed shows uneven topography with some beefy red. No excoriation. No tunneling, undermining, odor. Drainage is moderate, serous. Left lower extremity shows 4+ Tanmay edema. The wound bed shows irregular borders withirregular topography, some beefy red. No black noted. No tunneling, undermining, odor, or drainage. IMPRESSION/REPORT/PLAN 1. Bilateral lower extremity venous stasis ulcers with lymphedema and venous stasis insufficiency. 2. Cellulitis. Procedural pause conducted to verify: Correct patient, identity, procedure to be performed and as applicable, correct side and site, correct patient position and availability of special requirements. 3. 4. The wounds were cleansed with saline chloroxylenol and rinsed well. Selective debridement was done using Celleration ultrasonic MIST therapy for 3 minutes. He was sent for venous Doppler of both lower extremities. He returned from the Doppler, wounds were re-rinsed with saline. Silvercel was applied with 50/50 gentamicin and Bactroban. He is given a total1 shot of Rocephin 1 g IM today. I did give a prescription for Keflex 500 mg 4 times a day. I did get the results of the Doppler back which showed bilateral lower extremity subcutaneous edema. No evidence of D, but he does have mildly enlarged inguinal regional lymph nodes. Based on this, I wanted himto have follow up care. He has no regular family physician in [place] but [place] in [place]. I did send him to urgent care. After he left the building to go down to the urgent care, I had called the urgent care and spoke with a nurse, Chrissy. I was told by Chrissy that they would not see him and the only thing that they would do for him would be to give Rocephin. I then asked Chrissy and they could not help coordinate care to get him either an appointment or to get him either intravenous therapy or injection as he does have cellulitis, and I was told by her they would not do that. Based on that, I will call and leave a message on his home phone to suggest that he go to the emergency department where hopefully they will treat him. Alexander Sousa CNP/yi Electronically Signed By: ALEXANDER SOUSA CNP On: 12/31/2013 08:13 AM Source: [facility] MHSDOLBEYNONRADSYS Document Id: [id number] documented in this encounter Miscellaneous Notes Miscellaneous - Gisselle Batista L.P.N. - 12/28/2013 9:50 AM CDT Ambulatory Vitals Height Weight Ambulatory Vitals Height Weight Entered On: 12/28/2013 9:52 CDT Performed On: 12/28/2013 9:50 CDT by GISSELLE BATISTA Vitals/Ht/Wt Systolic Blood Pressure : 156 mmHg (HI) Diastolic Blood Pressure : 94 mmHg (>HHI) NIBP Mean : 115 mmHg BP Location : Right upper extremity Blood Pressure Cuff Size : Large Height : 176 cm(Converted to: 5 ft 9 inch(es), 69 inch(es)) GISSELLE BATISTA - 12/28/2013 9:50 CDT [facility] Document Id: [id number] CDT!8 Miscellaneous - Gisselle Batista L.P.NKristine - 12/28/2013 9:44 AM CDT 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 Piercing Artist Intake/History Adult Piercing Artist Intake/History Entered On: 12/28/2013 9:49 CDT Performed On: 12/28/2013 9:44 CDT by GISSELLE BATISTA Intake Chief Complaint : Wound care both lower legs Temperature Core : 36.5 DegC(Converted to: 97.7 DegF) Peripheral Pulse Rate : 64 /min Respiratory Rate : 18 /min Systolic Blood Pressure : 168 mmHg (>HHI) Diastolic Blood Pressure : 92 mmHg (>HHI) NIBP Mean : 117 mmHg BP Location : Right upper extremity Blood Pressure Cuff Size : Large Height : 176 cm(Converted to: 5 ft 9 inch(es), 69 inch(es)) GISSELLE BATISTA - 12/28/2013 9:44 CDT General Info Information Given By : Patient Preferred Communication Mode : Verbal Languages : Armenian Is Patient Female and 13-50 no hysterectomy : No GISSELLE BATISTA 12/28/2013 9:44 CDT Subjective Pain Symptoms : Yes GISSELLE BATISTA 12/28/2013 9:44 CDT Pain Pain Assessment Grid Pain 1 Pain 2 Location : Lower leg Lower leg Laterality : Right Left Intensity : 5 2 Quality : Burning, Dull Burning Alleviating Factors : Medication Medication GISSELLE BATISTA 12/28/2013 9:44 CDT GISSELLE BATISTA 12/28/2013 9:44 CDT Dependent Habits Tobacco Use/Currently Using : No Tobacco Use/Last 12 months : No Exposure to Tobacco Smoke : Other: non smoker Smoking Status : Never smoker BATISTAGISSELLE Nicole - 12/28/2013 9:44 CDT Source: [facility] [employer] Document Id: [id number] CDT!38 documented in this encounter Plan of Treatment Not on filedocumented as of this encounter Procedures Procedure Name Priority Date/Time Associated Diagnosis Comme nts US LOWER EXTREMITY Routine 12/28/2013 10:10 AM Re sults for this VEINS BILATERAL CDT procedure ar e in the results section. documented in this encounter Results US Lower Extremity Veins Bilateral (12/28/2013 10:10 AM CDT) Anatomical Region Laterality Modality Lower Extremity Bilateral Ultrasound Specimen (Source) Anatomical Collection Method Collection Time Re ceived Time Location / / Volume Laterality 12/28/2013 10:10 AM CDT Impressions 12/28/2013 11:23 AM CDT Bilateral lower extremity subcutaneous e linda. No evidence of deep venous thrombosis. Narrative 12/28/2013 11:23 AM CDT COMPARISON: No prior TECHNIQUE: Real time sonographic evaluat ion of the deep veins of the bilateral lower extremities was performe d. FINDINGS: The common femoral vein, saphenous femor al junction, superficial femoral vein, popliteal vein and proxima l calf veins are fully compressible bilaterally and demonstrate normal flow on color Doppler evaluation. ??There is normal augmentati on. Lower extremity subcutaneous edema is pr esent. Suggestion of mildly enlarged inguinal r egion lymph nodes can be clinically correlated. Procedure Note Guzman Baugh M.D. / Provider, Becky dee M.D. - 08/14/2016 COMPARISON: No prior TECHNIQUE: Real time sonographic evaluat ion of the deep veins of the bilateral lower extremities was performe d. FINDINGS: The common femoral vein, saphenous femor al junction, superficial femoral vein, popliteal vein and proxima l calf veins are fully compressible bilaterally and demonstrate normal flow on color Doppler evaluation. There is normal augmentation . Lower extremity subcutaneous edema is pr esent. Suggestion of mildly enlarged inguinal r egion lymph nodes can be clinically correlated. IMPRESSION: Bilateral lower extremity subcutaneous e linda. No evidence of deep venous thrombosis. Jim Duque Jr., RKristineD.M.S. IMG US PROCEDURES documented in this encounter Visit Diagnoses Not on filedocumented in this encounter
--- OUTSIDE RECORDS SUMMARY | 2021-12-11 07:59 | XMS_ITS | Encounter Summary ---
:1960 Author Organization [facility] Address [address] [place] [address] Care Team Providers Name Role Phone Unavailable Primary Care Provider Unavailable Encounter Details Date Type Department Care Team Description 01/23/2014 Hospital Encounter HX [facility] FBHB INTERNMED Galen Sousa V., WATER SUPPLY ENGINEER, C.N.P. [address] [place] [address] (Wo rk) Social History Tobacco Use Types Packs/Day Years Used Date Smoking Tobacco: Never Assessed Sex Assigned at Date Recorded Not on file documented as of this encounter Last Filed Vital Signs Vital Sign Reading Time Taken Comments Blood Pressure 138/88 01/23/2014 11:15 AM CDT Pulse 68 01/23/2014 11:07 AM CDT Temperature - - Respiratory Rate 20 01/23/2014 11:07 AM CDT Oxygen Saturation - - Inhaled Oxygen Concentration - - Weight 104 kg (229 lb 8 oz) 01/23/2014 11:07 AM CDT Height 178 cm (5' 10.08) 01/23/2014 11:15 AM CDT Body Mass Index 32.86 01/23/2014 11:07 AM CDT documented in this encounter Progress Notes Gisselle Batista L.P.N. - 01/23/2014 11:15 AM CDT Wound Care Wound Care Entered On: 01/23/2014 11:15 CDT Performed On: 01/23/2014 11:15 CDT by GISSELLE BATISTA Integumentary Pain Symptoms : Yes GISSELLE BATISTA - 01/23/2014 11:15 CDT Pain Pain Assessment Grid Pain 1 Location : Lower leg GISSELLE BATISTA - 01/23/2014 11:15 CDT Source: [employer] Document Id: [id number] CDT!7 Alexander Sousa APRN, C.N.P. - 01/23/2014 10:37 AM CDT [id number] HISTORY OF PRESENT ILLNESS Tank is a 53-year-old male who is overweight and on his legs most of the time that he is working. He works at [employer] and works 6 to 7 days in a row. Today is his date off. He states he does not have a day off until February 01 when he goes to the [facility]. He comes in with 2 venous stasis ulcers, both on the inner legs by the ankles. He is complaining of having broken out in a rash a week ago. He states that he feels it is from the one time dose of the SensiCare 2 cream that I put on his legs. He is gone now to using Vanicream. He has had over the past week or more increasing pain in his right lower extremity. When he had the Unna boot on the pain was less,but when he takes the Unna boot off and uses his compression stocking the pain is more. He states the pain is increasing to the point where he is taking 4 tramadol a day. The pain is in the right leg but not in the wound bed. He states it is deep in the ankle. PHYSICAL EXAMINATION SKIN: The right lower extremity inner malleolar area wound measures 4.5 x 3. The wound bed shows granulation. There is epithelization. There is some slough. There is no tunneling, undermining, odor, or, or drainage. The leg itself has a red appearance. There are hemosiderin changes. He has a pedal edema. Left lower extremity wound measures 5.5 x 3. This is an irregularly shaped wound on the inner left area near the malleolus. The wound bed shows slough with granulation. There is some epithelization seen. No tunneling, undermining, odor, or drainage. IMPRESSION/REPORT/PLAN 1. Bilateral lower extremity venous stasis ulcers complicated by history of delayed healing and pain. Procedural pause conducted to verify: Correct patient, identity, procedure to be performed and as applicable, correct side and site, correct patient position and availability of special requirements. Right leg wound was cleansed with saline, dried and a wound culture was obtained. Both wound are cleansed with saline and PCMX, rinsed well. Selective debridement was done using Celleration ultrasonic MIST therapy for 3 minutes. Wounds were dried. Lidocaine jelly 2% was applied to the wound bed on the right leg to obtain pain relief. Silvercel was applied to the wound bed only, covered with ABD held in place with a Kerlix wrap. He will wear his compression stockings on in the morning, off at night. 2. Rash. The rash started a week after his antibiotics stopped. The rash started approximately with the increase of the tramadol. I told him to stop the tramadol. I told him to take Tylenol. I told himmy concern that the increasing pain he is having does not appear to be related to the wound. I was concerned about either a blood clot or possible osteomyelitis in the ankle area. I did send him for anx-ray at the clinic today. Results are pending. At 1:30 this afternoon he will go to [facility] to have a venous Doppler to rule out a DVT of the right lower extremity. He will go home afterhis Doppler as he has to pick his children up from school. He will be home after 3 and I will call him with results. Then we can talk about pain control. I am reluctant to give him a narcotic at this point and I told him to take Tylenol and to take gaji-mzj-kwzqasl Benadryl as directed for the rash and the puffy eyes. I also told him that Benadryl would make him sleepy and he should not take it and drive or go to work. Right now, he has no appointment to return as he has to work up until the and then he will go to the [facility]. He will be doing daily dressing changes at home using Silvercel covered with ABDs and wrapping it. I will speak with him later this afternoon. Alexander Sousa CNP/yi Electronically Signed By: ALEXANDER SOUSA CNP On: 01/23/2014 02:02 PM Source: [facility] NICOSDSOPHIA Document Id: [id number] Alexander Sousa APRN, C.N.P. - 01/23/2014 10:37 AM CDT [id number] PHONE CALL I received Tank's sensitivities for the wound culture on the right lower extremity. Serratia marcescens and Enterococcus faecalis is in the wound. I did call to let him know. I faxed a prescription for Levaquin 500 mg daily for 10 days to [facility]. Tank then stated that his rash is worse and his eye is really swollen and on his face and the back of his legs. I then told him I would order prednisone 20 mg daily for 7 days. He is to take it. He is to go to the pharmacy and take it right away. I told himif he has any worsening of the rash he needs to get to urgent care or the emergency room immediately. I talked about his lip swelling and the possibility of airway and breathing problems. He also thinks he might be allergic to the Silvercel and will use Aquacel instead. He will come in Tuesday at 9 forevaluation. He also stated the pain is not bad. I gave him the phone number directly to my desk. He is to call with any questions or concerns before noon, as I am done at noon. Otherwise he will go to urgent care or the emergency room if need be. Arthur Worthy Electronically Signed By: ALEXANDER SOUSA CNP On: 01/28/2014 08:16 AM Source: [facility] MHSDOLBEYNSEE Document Id: [id number] documented in this encounter Nursing Notes Gisselle Batista L.P.N. - 01/23/2014 12:16 PM CDT Venous Ultrasound (lower extremity) Diagnostic Services Requisition completed and faxed to [facility] for Venous Ultrasound (lower extremity) (R/O DVT) right leg. Patient is scheduled to have done today at 1:30. Referral information form completed. Electronically Signed By: GISSELLE BATISTA On: 01/23/2014 12:18 PM Source: [employer] Document Id: [id number] documented in this encounter Miscellaneous Notes Miscellaneous - Fernando, Historical Provider Ser - 01/31/2014 3:30 PM CDT *The Coding Query From: IRMA JOYCE To: ALEXANDER SOUSA CNP; Sent: 01/31/2014 15:30:18 CDT Subject: *The Coding Query Please add charge for the visit for this patient on 01/23/14 Thank You Irma Joyce Coding Source: [employer] Document Id: [id number] Miscellaneous - Gisselle Batista L.P.N. - 01/23/2014 11:15 AM CDT Ambulatory Vitals Height Weight Ambulatory Vitals Height Weight Entered On: 01/23/2014 11:16 CDT Performed On: 01/23/2014 11:15 CDT by GISSELLE BATISTA Vitals/Ht/Wt Systolic Blood Pressure : 138 mmHg Diastolic Blood Pressure : 88 mmHg NIBP Mean : 105 mmHg BP Location : Right upper extremity Blood Pressure Cuff Size : Large Height : 178 cm(Converted to: 5 ft 10 inch(es), 70 inch(es)) GISSELLE BATISTA - 01/23/2014 11:15 CDT [facility] [employer] Document Id: [id number] CDT!8 Miscellaneous - Gisselle Batista L.P.N. 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 Now using Vanicream Temperature Core : 36.4 DegC(Converted to: 97.5 DegF) (LOW) Peripheral Pulse Rate : 68 /min Respiratory Rate : 20 /min Systolic Blood Pressure : 146 mmHg (HI) Diastolic Blood Pressure : 92 mmHg (>HHI) NIBP Mean : 110 mmHg BP Location : Right upper extremity Blood Pressure Cuff Size : Large Height : 178 cm(Converted to: 5 ft 10 inch(es), 70 inch(es)) Actual Weight : 104.1 kg(Converted to: 229 lb 8 oz) Weight Source : Standing scale Dosing Weight Clinic : 104.1 kg Clinic BSA : 2.27 Body Mass Index : 32.86 kg/m2 GISSELLE BATISTA - 01/23/2014 11:07 CDT General Info Information Given By : Patient Preferred Communication Mode : Verbal Languages : Czech Is Patient Female and 13-50 no hysterectomy : No GISSELLE BATISTA - 01/23/2014 11:07 CDT Subjective Pain Symptoms : Yes GISSELLE BATISTA 01/23/2014 11:07 CDT Pain Pain Assessment Grid Pain 1 Location : Lower leg Laterality : Right Intensity : 7 Quality : Aching, Burning, Throbbing Alleviating Factors : Medication GISSELLE BATISTA 01/23/2014 11:07 CDT (Comment: all the time in the right leg, sometimes in left leg- not as bad [GISSELLE BATISTA 01/23/201411:07 CDT] ) Dependent Habits Tobacco Use/Currently Using : No Tobacco Use/Last 12 months : No Exposure to Tobacco Smoke : Other: non smoker Smoking Status : Never smoker GISSELLE BATISTA 01/23/2014 11:07 CDT Source: [facility] POWERCHART Document Id: [id number] CDT!37 documented in this encounter Plan of Treatment Not on filedocumented as of this encounter Procedures Procedure Name Priority Date/Time Associated Diagnosis Comme nts BACTERIAL CULTURE, Routine 01/23/2014 12:01 PM Re sults for this AEROBIC CDT procedure are i n the results section. DX ANKLE RIGHT 3+ Routine 01/23/2014 11:40 AM Res ults for this VIEWS CDT procedure are i n the results section. documented in this encounter Results (ABNORMAL) Bacterial Culture, Aerobic (01/23/2014 12:01 PM CDT) [facility] gist Method Time Signature Wound Culture SERMAR <=1 POWERCHART (POSITIVE) Wound Culture ENTFAECA <=1 POWERCHART (POSITIVE) HX GS No PMN's POWERCHART seen. HX GS No organisms POWERCHART seen. Comment: No PMN's seen. No organisms seen. HXPre GNR POWERCHART Comment: Moderate Gram Negative Rods HXPre GNR POWERCHART HXPre STREPTO POWERCHART Comment: Moderate Gram Negative Rods Moderate Streptococci HXFinal SERMAR POWERCHART HXFinal ENTFAECA POWERCHART Comment: Moderate Serratia marcescens Moderate Enterococcus faecalis HXAmend SERMAR POWERCHART HXAmend ENTFAECA POWERCHART Comment: Moderate Serratia marcescens Moderate Enterococcus faecalis Few Staph not aureus isolated. ??No furt her studies. Specimen (Source) Anatomical Collection Method Collection Time Re ceived Time Location / / Volume Laterality Wound (Leg, 01/23/2014 12:01 Right) PM CDT Organism Antibiotic Method Susceptibility Serratia marcescens Aztreonam SUSCEPTIBILITY, <=1: Suscept ible [facility] (MCG/ML) Serratia marcescens Cefazolin SUSCEPTIBILITY, >=64: Resist ant [facility] (MCG/ML) Serratia marcescens Cefepime SUSCEPTIBILITY, <=1: Suscept ible [facility] (MCG/ML) Serratia marcescens Ceftazidime SUSCEPTIBILITY, <=1: Suscept ible [facility] (MCG/ML) Serratia marcescens Ceftriaxone SUSCEPTIBILITY, <=1: Suscept ible [facility] (MCG/ML) Serratia marcescens Ertapenem SUSCEPTIBILITY, <=0.5: Susce ptible [facility] (MCG/ML) Serratia marcescens Gentamicin SUSCEPTIBILITY, <=1: Suscept ible [facility] (MCG/ML) Serratia marcescens Levofloxacin SUSCEPTIBILITY, <=0.12: Susc eptible [facility] (MCG/ML) Serratia marcescens Meropenem SUSCEPTIBILITY, <=0.25: Susc eptible [facility] (MCG/ML) Serratia marcescens Trimethoprim + SUSCEPTIBILITY, <=20: Suscep tible Sulfamethoxazole [facility] (MCG/ML) Serratia marcescens Tobramycin SUSCEPTIBILITY, 2: Susceptib le [facility] (MCG/ML) Enterococcus faecalis Ampicillin SUSCEPTIBILITY, <=2: Susce ptible [facility] (MCG/ML) Enterococcus faecalis Daptomycin SUSCEPTIBILITY, 4: Suscept ible [facility] (MCG/ML) Enterococcus faecalis Doxycycline SUSCEPTIBILITY, >=16: Resi stant [facility] (MCG/ML) Enterococcus faecalis Gentamicin high level SUSCEPTIBILITY, Syn- S: Susceptible resistance [facility] (MCG/ML) Enterococcus faecalis Streptomycin SUSCEPTIBILITY, Syn-S: Hellen ceptible [facility] (MCG/ML) Enterococcus faecalis Linezolid SUSCEPTIBILITY, 2: Suscept ible [facility] (MCG/ML) Enterococcus faecalis Vancomycin SUSCEPTIBILITY, 2: Suscept ible [facility] (MCG/ML) Alexander Sousa APRN, C.N.P. LAB MICROBIOLOGY - GENERA L ORDERABLES Performing Organization Address City/State/ZIP Code Phon e Number POWERCHART DX Ankle Right 3+ Views (01/23/2014 11:40 AM CDT) Anatomical Region Laterality Modality Lower Extremity, Ankle Right Radiographic Imag ing Specimen (Source) Anatomical Collection Method Collection Time Re ceived Time Location / / Volume Laterality 01/23/2014 11:40 AM CDT Impressions 01/23/2014 2:01 PM CDT As described. Narrative 01/23/2014 2:01 PM CDT Comparison: None. FINDINGS: Nonspecific skin thickening and subcutan eous edema. No evidence of fracture or destructive osseous abnormal ity. No significant degenerative changes. Vascular calcifica tions are present. Procedure Note Momo Liz M.D. / Provider, His emily M.D. - 08/14/2016 Comparison: None. FINDINGS: Nonspecific skin thickening and subcutan eous edema. No evidence of fracture or destructive osseous abnormal ity. No significant degenerative changes. Vascular calcifica tions are present. IMPRESSION: As described. Historical Provider IMG DIAGNOSTIC IMAGING PROCE DURES documented in this encounter Visit Diagnoses Not on filedocumented in this encounter
--- OUTSIDE RECORDS SUMMARY | 2021-12-11 07:59 | XMS_ITS | Encounter Summary ---
:1960 Author Organization [facility] Address [address] [place] [address] Care Team Providers Name Role Phone Unavailable Primary Care Provider Unavailable Encounter Details Date Type Department Care Team Description 03/12/2014 Hospital Encounter HX [facility] INTERNMED Galen Sousa V., BED LASTER, C.N.P. [address] [place] [address] (Wo rk) Social History Tobacco Use Types Packs/Day Years Used Date Smoking Tobacco: Never Assessed Sex Assigned at Date Recorded Not on file documented as of this encounter Last Filed Vital Signs Vital Sign Reading Time Taken Comments Blood Pressure 142/88 03/12/2014 9:44 AM NUCLEAR PHARMACIST Pulse 64 03/12/2014 9:44 AM NUCLEAR PHARMACIST Temperature - - Respiratory Rate 18 03/12/2014 9:44 AM NUCLEAR PHARMACIST Oxygen Saturation - - Inhaled Oxygen Concentration - - Weight 143 kg (315 lb 14.7 oz) 03/12/2014 9:44 AM NUCLEAR PHARMACIST Height 178 cm (5' 10.08) 03/12/2014 9:44 AM NUCLEAR PHARMACIST Body Mass Index 45.23 03/12/2014 9:44 AM NUCLEAR PHARMACIST documented in this encounter Progress Notes Gisselle Batista, Jeff.P.N. - 03/12/2014 9:50 AM CST Wound Care Wound Care Entered On: 03/12/2014 9:50 NUCLEAR PHARMACIST Performed On: 03/12/2014 9:50 NUCLEAR PHARMACIST by GISSELLE BATISTA Integumentary Pain Symptoms : Yes GISSELLE BATISTA - 03/12/2014 9:50 NUCLEAR PHARMACIST Pain Pain Assessment Grid Pain 1 Location : Lower leg GISSELLE BATISTA - 03/12/2014 9:50 NUCLEAR PHARMACIST [facility] Document Id: [id number] NUCLEAR PHARMACIST!7 EAR PHARMACIST Alexander Sousa APRN, C.N.P. - 03/12/2014 9:07 AM CST [id number] HISTORY OF PRESENT ILLNESS Tank returns for ongoing wound care of bilateral lower extremity venous stasis ulcers complicated by history of delayed healing. Tank has less pain in the wounds because they are almost totally healed. He does have some swelling in his right lower extremity, which he relates to the foods he is eating. He is newly diagnosed diabetic and has not returned for any of his appointments for his treatment. He works at [employer] and this is the busy season being the holiday season. PHYSICAL EXAMINATION SKIN: The right lower extremity wound measures 3.5 x 2. The wound is mostly granulation and new epithelization. No tunneling, undermining, odor, drainage or slough. There is trace edema in the leg. Theleft lower extremity wound measures 4 x 1. This wound is almost totally epithelialized. There is no edema in the leg. There are venous stasis and hemosiderin changes. IMPRESSION/REPORT/PLAN Bilateral lower extremity venous stasis ulcers. The wounds were cleansed with saline, PCMX, rinsed well. Procedural pause conducted to verify: Correct patient, identity, procedure to be performed and as applicable, correct side and site, correct patient position and availability of special requirements. Selective debridement was done using Celleration ultrasonic MIST therapy for 3 minutes. Wounds were rinsed with saline and dried. Medihoney was applied to the wound beds, covered with sterile 4 x 4, held in place with a Sarah wrap. He does have his compression stockings. He has an appointment at the [facility] for vascular testing on and will return in 1 week for ongoing wound care. Alexander Sousa CNP/yi Electronically Signed By: ALEXANDER SOUSA CNP On: 03/12/2014 04:32 PM Source: [facility] MHSDOLBEYNONRADSYS Document Id: [id number] EAR PHARMACIST documented in this encounter Miscellaneous Notes Miscellaneous - Gisselle Batista L.P.N. - 03/12/2014 9:44 AM CST Adult Outside Medical Sales Representative Intake/History Adult Outside Medical Sales Representative Intake/History Entered On: 03/12/2014 9:50 NUCLEAR PHARMACIST Performed On: 03/12/2014 9:44 NUCLEAR PHARMACIST by GISSELLE BATISTA Intake Chief Complaint : Wound care both lower leg Temperature Core : 36.1 DegC(Converted to: 97.0 DegF) (LOW) Peripheral Pulse Rate : 64 /min Respiratory Rate : 18 /min Systolic Blood Pressure : 142 mmHg (HI) Diastolic Blood Pressure : 88 mmHg NIBP Mean : 106 mmHg BP Location : Right upper extremity Blood Pressure Cuff Size : Large Height : 178 cm(Converted to: 5 ft 10 inch(es), 70 inch(es)) Actual Weight : 143.3 kg(Converted to: 315 lb 15 oz) Weight Source : Standing scale Dosing Weight Clinic : 143.3 kg Clinic BSA : 2.66 Body Mass Index : 45.23 kg/m2 GISSELLE BATISTA - 03/12/2014 9:44 NUCLEAR PHARMACIST General Info Information Given By : Patient Preferred Communication Mode : Verbal Languages : Bahamian Is Patient Female and 13-50 no hysterectomy : No GISSELLE BATISTA - 03/12/2014 9:44 NUCLEAR PHARMACIST Subjective Pain Symptoms : Yes GISSELLE BATISTA - 03/12/2014 9:44 NUCLEAR PHARMACIST Pain Pain Assessment Grid Pain 1 Location : Lower leg Laterality : Right Intensity : 4 Quality : Aching, Burning, Sharp, Throbbing Alleviating Factors : Medication GISSELLE BATISTA - 03/12/2014 9:44 NUCLEAR PHARMACIST (Comment: jumps up to 8 or 9 [GISSELLE BATISTA - 03/12/2014 9:44 NUCLEAR PHARMACIST] ) Dependent Habits Tobacco Use/Currently Using : No Tobacco Use/Last 12 months : No Exposure to Tobacco Smoke : Other: non smoker Smoking Status : Never smoker GISSELLE BATISTA - 03/12/2014 9:44 NUCLEAR PHARMACIST ID Screen Drug Resistant Organism : No Travel Within Last 21 Days : No BATISTAGISSELLE - 03/12/2014 9:44 NUCLEAR PHARMACIST Source: [facility] Document Id: [id number] NUCLEAR PHARMACIST!40 EAR PHARMACIST Miscellaneous - Alexander Sousa APRN, C.N.P. - 03/12/2014 9:36 AM CST Ambulatory Discharge Medication List [address] [id number] Visit Information Name: JOSE GUADALUPE RIDLEY [facility] Number: [id number] Visit Date: 03/12/2014 09:36:11 Attending Provider: ALEXANDER SOUSA CNP Primary Care [...] the Following Medications: Medication list as of 03-12-14 09:36 Attention: If you have any medications at [...] Electronically Signed By: ALEXANDER SOUSA CNP Signed On:12-MAR-2014 09:36:04 Additional Information: Source: [facility] Document Id: [id number] EAR PHARMACIST Miscellaneous - Alexander Sousa APRN, C.N.P. - 03/12/2014 9:36 AM CST Ambulatory Patient Summary [address] [place] [id number] Visit Information Name: JOSE GUADALUPE RIDLEY [facility] Number: [id number] Current Date: 03/12/2014 09:36:12 Physicians Attending Provider: ALEXANDER SOUSA CNP Primary [...] the Following Medications: Medication list as of 03-12-14 09:36 Attention: If you have any medications at [...] Electronically Signed By: ALEXANDER SOUSA CNP Signed On:12-MAR-2014 09:36:04 Your Allergies & Intolerances Substance Reaction Symptoms [...] appointment detail needed. Your Goals/Additional instructions: Source: [facility] POWERCHART Document Id: [id number] EAR PHARMACIST documented in this encounter Plan of Treatment Not on filedocumented as of this encounter Visit Diagnoses Not on filedocumented in this encounter
--- OUTSIDE RECORDS SUMMARY | 2021-12-11 07:59 | XMS_ITS | Encounter Summary ---
:1960 Author Organization [facility] Address [address] [place] [address] Care Team Providers Name Role Phone Unavailable Primary Care Provider Unavailable Encounter Details Date Type Department Care Team Description 05/17/2011 Hospital Encounter HX NO MAPPING Harper Peña M.D. [address] [place] [address] [phone] (Wo rk) Social History Tobacco Use Types Packs/Day Years Used Date Smoking Tobacco: Never Assessed Sex Assigned at Date Recorded Not on file documented as of this encounter Plan of Treatment Not on filedocumented as of this encounter Visit Diagnoses Not on filedocumented in this encounter
--- OUTSIDE RECORDS SUMMARY | 2021-12-11 07:59 | XMS_ITS | Encounter Summary ---
:1960 Author Organization [facility] Address [address] [place] [address] Care Team Providers Name Role Phone Unavailable Primary Care Provider Unavailable Encounter Details Date Type Department Care Team Description 05/05/2010 Hospital Encounter HX [facility] Zoila Vivar a, BLUNGER LOADER, C.N.P. Social History Tobacco Use Types Packs/Day Years Used Date Smoking Tobacco: Never Assessed Sex Assigned at Date Recorded Not on file documented as of this encounter Progress Notes Merary Vivar - 05/05/2010 12:00 AM CST [id number] CHIEF COMPLAINT / REASON FOR VISIT The patient comes in today for wound care. HISTORY OF PRESENT ILLNESS The patient has venous stasis insufficiency with a venous ulcer on his left medial malleolus. This has been going on for quite some time. He states that his pain has gotten better, and the irritation around the wound has gotten better since he has been changing the dressing on a daily basis. He has no new concerns or complaints. He is in need of some more supplies as he is down to his last one. CURRENT MEDICATIONS Per EMR. ALLERGIES Per EMR. VITAL SIGNS Per EMR. PHYSICAL EXAM GENERAL: Obese, well-developed 50-year-old male who is [id number] and in no acute distress. EXTREMITIES: Examination of left medial malleolus shows a wound that is approximately 0.6 x 0.6 x 0.2 cm. Wound bed is 100% granulating tissue. There is no slough noted. Bridging is continued. The wound is in the shape of a C. There is no undermining or tunneling noted. Skyla-wound is slightly denuded in various spots around the wound. It is considerably better compared to last time. There is some pain with moderate palpation. He does have hemosiderin staining. There is a scant amount of edema noted. IMPRESSION / REPORT / PLAN PROCEDURE: The area was cleansed with Safe Cleanse. We then applied Amerigel, dimethicone lotion, a 4 x 4 Allevyn foam, and Kerlix. 1) Venous stasis insufficiency with ulcer. We did give him supplies, and he will return next week for further evaluation. The patient is comfortable with this plan. I encouraged him to call if he has any concerns or complaints. Juliann Pappas, dario Anyi, F.N.P.,B.C. Electronically Signed By:MERARY VIVAR FEED MILL MANAGER On 05/08/2010 08:11 AM Source: [facility] MHSDOLBEYNONRADSYS Document Id: [id number] IC PROFESSOR documented in this encounter Miscellaneous Notes Miscellaneous - Romie Stephenson, R.N. - 05/05/2010 8:30 AM CST Adult Home Care Rn Intake/History Adult Home Care Rn Intake/History Entered On: 05/05/2010 8:30 ARABIC PROFESSOR Performed On: 05/05/2010 8:30 ARABIC PROFESSOR by ROMIE STEPHENSON Intake Chief Complaint: woundcare Temperature Oral: 36.5C(Converted to: 97.7DegF) Systolic Blood Pressure: 140mmHg Diastolic Blood Pressure: 88mmHg NIBP Mean: 105mmHg BP Location: Right upper extremity Actual Weight: 149.400kg(Converted to: 329lb 6oz) Dosing Weight Clinic: 149.40kg ROMIE STEPHENSON - 05/05/2010 8:30 ARABIC PROFESSOR Subjective Pain Symptoms: Yes ROMIE STEPHENSON - 05/05/2010 8:30 ARABIC PROFESSOR Pain Pain Assessment Grid Pain 1 Location: Lower leg Laterality: Right Intensity: 10 ROMIE STEPHENSON - 05/05/2010 8:30 ARABIC PROFESSOR Dependent Habits Tobacco Use/Currently Using: No Exposure to Tobacco Smoke: Other: non smoker Alcohol Use: Yes ROMIE STEPHENSON - 05/05/2010 8:30 ARABIC PROFESSOR Allergies Allergies (Active) NKA Estimated Onset Date: Unspecified ; Created By: CLARISA MARAVILLA; Reaction Status: Active ;Category: Drug ; Substance: NKA ; Type: Allergy ; Updated By: CLARISA MARAVILLA; Source: Patient; Reviewed Date: 05/05/2010 8:29 ARABIC PROFESSOR Source: [facility] POWERCHART Document Id: [id number] ARABIC PROFESSOR!22 IC PROFESSOR documented in this encounter Plan of Treatment Not on filedocumented as of this encounter Visit Diagnoses Not on filedocumented in this encounter
--- OUTSIDE RECORDS SUMMARY | 2021-12-11 07:59 | XMS_ITS | Encounter Summary ---
:1960 Author Organization [facility] Address [address] [place] [address] Care Team Providers Name Role Phone Unavailable Primary Care Provider Unavailable Encounter Details Date Type Department Care Team Description 05/12/2010 Hospital Encounter HX [facility] Zoila Vivar a, ZOE, C.N.P. Social History Tobacco Use Types Packs/Day Years Used Date Smoking Tobacco: Never Assessed Sex Assigned at Date Recorded Not on file documented as of this encounter Progress Notes Merary Vivar - 05/12/2010 12:00 AM CST [id number] CHIEF COMPLAINT / REASON FOR VISIT Patient comes in today for wound care. HISTORY OF PRESENT ILLNESS We have been seeing the patient on a weekly basis for a wound on his left medial malleolus. He has had very sensitive skin. His periwound has been irritated due to drainage and dryness and due to venous stasis dermatitis. He still complains that that is a concern, however, not as bad. He denies any drainage from his wound currently. He is going out of town fishing over the weekend and he just wants to make sure that he has supplies for when [place] goes [place]. He has no other concerns or complaints. CURRENT MEDICATIONS Reviewed and no changes per EMR. ALLERGIES Reviewed and no changes per EMR. VITAL SIGNS Per EMR. PHYSICAL EXAM GENERAL: This is an obese, well-developed 50-year-old male who is non ill-appearing and in no acute distress. EXTREMITIES: Examination of the left medial malleolus shows a closed resurfaced wound that measures approximately 0.5 x 0.5 cm. There is no erythema, edema or ecchymosis. There is no drainage from the wound. There is minimal pain with palpation of the periwound and periwound around his entire left lower extremity mostly around the ankle is slightly denuded in an area that appears to be more from dry skin where it is cracking and these areas have more significant pain and a scant amount of serous drainage. No signs of infection. He does have hemosiderin staining, a considerable amount. There is no edema noted. IMPRESSION/REPORT/PLAN PROCEDURE: We put skin prep on his denuded skin, covered with an ABD and light Kerlix. Patient will continue this until further notice. 1) Venous stasis insufficiency with ulcers with stasis dermatitis. I discussed with patient at length that he needs to be putting on more moisturizer. I will give him a prescription of triamcinolone 0.1% ointment to use twice a day. We will call him on to see how he is doing. I instructed him if his skin gets worse in any way, he should stop using the triamcinolone and continue with the dimethicone lotion. I also instructed him to get an ointment-type of product such as Aquaphor or Vaseline to use on his skin at night as I do think this is significantly due to dry skin. Patient verbalized understanding and agreement of plan of care as outlined above. ADMINISTRATIVE BILLING Total Time: 30 minutes Counseling Time: Consultation on skin treatments and follow-up 25 minutes Juliann Pappas, Anyi, F.N.P.,B.C. Electronically Signed By: MERARY VIVAR CAFETERIA OR LUNCHROOM CHECKER On: 05/24/2010 04:27 Source: [facility] MHSDOLBEYNONRADSYS Document Id: [id number] FICIAL LIMB MAKER documented in this encounter Miscellaneous Notes Miscellaneous - Romie Stephenson R.N. - 05/12/2010 8:28 AM CST Adult Field Pipelines Supervisor Intake/History Adult Field Pipelines Supervisor Intake/History Entered On: 05/12/2010 8:28 ARTIFICIAL LIMB MAKER Performed On: 05/12/2010 8:28 ARTIFICIAL LIMB MAKER by ROMIE STEPHENSON Intake Chief Complaint: woundcare Temperature Oral: 36.6C(Converted to: 97.9DegF) Systolic Blood Pressure: 138mmHg Diastolic Blood Pressure: 88mmHg NIBP Mean: 105mmHg BP Location: Left upper extremity Actual Weight: 148.000kg(Converted to: 326lb 5oz) Dosing Weight Clinic: 148.00kg ROMIE STEPHENSON - 05/12/2010 8:28 ARTIFICIAL LIMB MAKER Subjective Pain Symptoms: Yes ROMIE STEPHENSON - 05/12/2010 8:28 ARTIFICIAL LIMB MAKER Pain Pain Assessment Grid Pain 1 Location: Lower leg Laterality: Left Intensity: 10 ROMIE STEPHENSON - 05/12/2010 8:28 ARTIFICIAL LIMB MAKER Dependent Habits Tobacco Use/Currently Using: No Exposure to Tobacco Smoke: Other: non smoker Alcohol Use: Yes ROMIE STEPHENSON - 05/12/2010 8:28 ARTIFICIAL LIMB MAKER Allergies Allergies (Active) NKA Estimated Onset Date: Unspecified ; Created By: CLARISA MARAVILLA; Reaction Status: Active ;Category: Drug ; Substance: NKA ; Type: Allergy ; Updated By: CLARISA MARAVILLA; Source: Patient; Reviewed Date: 05/12/2010 8:28 ARTIFICIAL LIMB MAKER Source: [facility] POWERCHART Document Id: [id number] ARTIFICIAL LIMB MAKER!22 FICIAL LIMB MAKER documented in this encounter Plan of Treatment Not on filedocumented as of this encounter Visit Diagnoses Not on filedocumented in this encounter
--- OUTSIDE RECORDS SUMMARY | 2021-12-11 07:59 | XMS_ITS | Encounter Summary ---
:1960 Author Organization [facility] Address [address] [place] [address] Care Team Providers Name Role Phone Unavailable Primary Care Provider Unavailable Encounter Details Date Type Department Care Team Description 06/10/2011 Hospital Encounter HX [facility] Zoila Vivar a, ZOE, C.N.P. Social History Tobacco Use Types Packs/Day Years Used Date Smoking Tobacco: Never Assessed Sex Assigned at Date Recorded Not on file documented as of this encounter Last Filed Vital Signs Vital Sign Reading Time Taken Comments Blood Pressure 140/84 06/10/2011 8:43 AM DIRECTOR SELECTION AND ADMINISTRATION Pulse 72 06/10/2011 8:43 AM DIRECTOR SELECTION AND ADMINISTRATION Temperature - - Respiratory Rate - - Oxygen Saturation - - Inhaled Oxygen Concentration - - Weight 147 kg (323 lb 10.2 oz) 06/10/2011 8:43 AM DIRECTOR SELECTION AND ADMINISTRATION Height - - Body Mass Index - - documented in this encounter Progress Notes Merary Vivar - 06/10/2011 12:00 AM CST [id number] CHIEF COMPLAINT/REASON FOR VISIT Wound care HISTORY OF PRESENT ILLNESS Patient has venous insufficiency with an ulcer on his left medial lower extremity. It has been there for an extremely long time. We did try an Apligraf however patient took bandage off after 3 days and washed it. That was approximately 3 weeks ago and in the meantime we have been putting on Promogran to help granulate it and hopefully close it. He has no concerns or complaints today. He is doing well doing his dressing change every day. CURRENT MEDICATIONS Reviewed EMR dated 06/10/11 and no changes. ALLERGIES Reviewed EMR dated 06/10/11 and no changes. VITAL SIGNS Reviewed EMR dated 06/10/11 and no changes. PHYSICAL EXAM GENERAL: Obese well-developed 51-year-old single male who is non-ill appearing in no acute distress. EXTREMITIES: Left lower extremity medially shows a wound that is approximately 1 x 1 x 0.2 cm. Wound bed is 100% granulated. Wound bed is dry. No undermining or tunneling. Periwound has slight erythema noted. Hemosiderin staining noted. There is scant edema noted. Remainder of skin is intact without abnormality. PROCEDURE: During this procedure the universal protocol was utilized. The patient's identity was confirmed by no less than two patient identifiers, correct procedure was verified, correct site was verified and marked as applicable and a final pause was completed. Area was cleansed with normal saline. We then covered the area with Medihoney, Telfa and lightly wrapped with Kerlix. IMPRESSION/REPORT/PLAN Venous insufficiency with a wound PLAN: Patient will continue dressing change with Medihoney on a daily basis for 2 weeks. He will then follow up. I did discuss with him to continue wearing his compression socks. I encouraged diet and exercise to help him lose weight as I do think that this is part of his longstanding problem with this not healing. Patient verbalized understanding and agreement as outlined above. Greater than 50% of the 30-minute visit was spent on discussion of followup and meds. Juliann Pappas, bar RTayo, F.N.P.,B.C. Electronically Signed By: MERARY VIVAR NP On: 06/17/2011 11:24 AM Modified by and Electronically Signed by: MERARY VIVAR NP On: 06/17/2011 11:24 AM Source: [facility] MHSDOLBEYNONLUPESYS Document Id: [id number] documented in this encounter Miscellaneous Notes Miscellaneous - Merary Vivar - 06/10/2011 9:12 AM CST Ambulatory Patient Summary [facility] [address] [place] [address] Visit Information Name: JOSE GUADALUPE RIDLEY Current Date: 06/10/2011 09:12:34 Physicians Attending Provider: MERARY VIVAR NP Primary [...] Additional Information Health Assessment every 1 year 06/10/2011 Screening Colonoscopy or Flex Sig or Occult Blood 06/10/2011 Checks for signs of cancer of the colon. Lipid Panel every 5 years Age 20-75 06/10/2011 Checks blood for good (HDL) and bad (LDL) cholesterol. Know your numbers, they are one indicator of your risk for heart attack and stroke. Vaccine: Flu every 1 year 06/10/2011 Immunization to help prevent you from getting the flu strain expected to be a problem for that year's flu season. Vaccine: Tetanus every 10 years 06/10/2011 Immunization to help prevent you from getting the seriousdisease Tetanus (Lockjaw). Your Upcoming Appointments Date Time Location Reason Provider No Appointments found Your Goals/Additional instructions: Source: [facility] [employer] Document Id: [id number] Villanueva - Merary Vivar - 06/10/2011 9:12 AM CST Ambulatory Depart Summary [address] [id number] Visit Information Name: ALICEJOSE GUADALUPE SAUL Visit Date: 06/10/2011 09:12:34 Attending Provider: MERARY VIVAR ENVELOPE FOLDER Primary Care Provider: PCP, UNASSIGNED JOSHUA JOSE GUADALUPE ADAMS has been given [...] your provider for clarification. Additional Information: Source: [facility] [employer] Equipment[employer] Document Id: [id number] CTOR SELECTION AND ADMINISTRATION Miscellaneous - Irma Kaur L.P.N. - 06/10/2011 8:43 AM CST Adult Digital Analytics Manager Intake/History Adult Digital Analytics Manager Intake/History Entered On: 06/10/2011 8:45 DIRECTOR SELECTION AND ADMINISTRATION Performed On: 06/10/2011 8:43 DIRECTOR SELECTION AND ADMINISTRATION by IRMA JUDD Intake Chief Complaint : Wound care- left lower extremity Temperature Oral : 36.8C(Converted to: 98.2DegF) Peripheral Pulse Rate : 72/min Systolic Blood Pressure : 140mmHg Diastolic Blood Pressure : 84mmHg NIBP Mean : 103mmHg Actual Weight : 146.8kg(Converted to: 323lb 10oz) Weight Source : Standing scale Dosing Weight Clinic : 146.80kg IRMA JUDD - 06/10/2011 8:43 DIRECTOR SELECTION AND ADMINISTRATION Subjective Pain Symptoms : No IRMA JUDD - 06/10/2011 8:43 DIRECTOR SELECTION AND ADMINISTRATION Dependent Habits Tobacco Use/Currently Using : No Exposure to Tobacco Smoke : Other: non smoker Smoking Status : Never smoker IRMA JUDD - 06/10/2011 8:43 DIRECTOR SELECTION AND ADMINISTRATION Allergy Allergies (Active) NKA Estimated Onset Date: Unspecified ; Created By: CLARISA MARAVILLA; Reaction Status: Active ;Category: Drug ; Substance: NKA ; Type: Allergy ; Updated By: CLARISA MARAVILLA; Source: Patient; Reviewed Date: 06/10/2011 8:43 DIRECTOR SELECTION AND ADMINISTRATION Source: [facility] POWERCHART Document Id: [id number] DIRECTOR SELECTION AND ADMINISTRATION!17 CTOR SELECTION AND ADMINISTRATION documented in this encounter Plan of Treatment Not on filedocumented as of this encounter Visit Diagnoses Not on filedocumented in this encounter
--- OUTSIDE RECORDS SUMMARY | 2021-12-11 07:59 | XMS_ITS | Encounter Summary ---
:1960 Author Organization [facility] Address [address] [place] [address] Care Team Providers Name Role Phone Unavailable Primary Care Provider Unavailable Encounter Details Date Type Department Care Team Description 12/26/2013 Hospital Encounter HX [facility] FB INTERNMED Galen Sousa APRN, C.N.P. [address] [place] [id number] (Wo rk) Social History Tobacco Use Types Packs/Day Years Used Date Smoking Tobacco: Never Assessed Sex Assigned at Date Recorded Not on file documented as of this encounter Last Filed Vital Signs Vital Sign Reading Time Taken Comments Blood Pressure 138/98 12/26/2013 2:59 PM CDT Pulse 68 12/26/2013 2:59 PM CDT Temperature - - Respiratory Rate 16 12/26/2013 2:59 PM CDT Oxygen Saturation - - Inhaled Oxygen Concentration - - Weight 148 kg (326 lb 4.5 oz) 12/26/2013 2:59 PM CDT Height 176 cm (5' 9.29) 12/26/2013 2:59 PM CDT Body Mass Index 47.78 12/26/2013 2:59 PM CDT documented in this encounter Progress Notes Alexander Sousa APRN, C.N.P. - 12/26/2013 1:46 PM CDT [id number] HISTORY OF PRESENT ILLNESS Tank is a 53-year-old obese male with a long history of venous stasis, venous insufficiencywith venous stasis ulcers on the bilateral lower medial malleoli area. His first ulcerative breakdown was in 2001 when he was seen at the [facility]. He has had several breakdowns in the 12 years since his initial problem. He has been seen at the [facility] and he was also seen by Merary Madison, who was a nurse practitioner, taking care of the wounds in [place]. He came to see me for wound care. Hehas been using feminine napkins for drainage. He has been taking Advil like Skittles. He has severe pain of both legs, but the more severe pain is on the right lower extremity, above the wound. He does not maintain regular care and has not had a physical or seen a primary provider in years. He did state that his has [employer] and he is entitled to a free physical once a year and I encouraged him to make an appointment with a provider in [place]. I am concerned that he possibly is diabetic and wanted to do blood work. He stated that his told him if any blood work needed to be done, it needed to be under a special code. Due to the financial situation and being unsure of his insurance payment, blood work will be deferred and he will make an appointment in the near future for aphysical. PHYSICAL EXAMINATION GENERAL: Morbidly obese man appearing older than his stated age. SKIN: Right lower extremity shows Tanmay appearance. There is erythema and venous stasis and hemosiderin changes on the lower extremity. He has a wound measuring 5 x 4 which is venous stasis in origin.The wound edges show black slough with excoriation around the edges. There is uneven topography in the wound bed. No tunneling, undermining, or odor. He has 4+ edema in the right leg. The left lower extremity shows a Tanmay appearance with 4+ edema. Left leg shows venous stasis and hemosiderin changeswith erythema. The wound measures 6 x 4 with uneven edges which are excoriated and uneven topographyin the wound bed, 100% black and yellow slough noted. IMPRESSION/REPORT/PLAN Bilateral lower extremity venous stasis ulcers. Most likely complicated by infection. The wounds were cleansed with saline and pat dry, and wound cultures were obtained of both wounds. The wounds were then rinsed with saline, PCMX. Procedural pause conducted to verify: Correct patient, identity, procedure to be performed and as applicable, correct side and site, correct patient position and availability of special requirements. Selected debridement was done using Celleration Ultrasonic MIST therapy for 3 minutes. Wounds were dried. Silvercel was applied with a 50/50 combination of gentamicin and Bactroban over the wound beds,held in place with an ABD and wrapped with a Kerlix wrap. He has his own compression stockings that he reapplied. Due to the apparent cellulitis of both lower extremities around the wounds and the pain level, Rocephin 1 g intramuscularly was given. Until the wound cultures return and the results are known, he willbe taking doxycycline 100 mg 2 times a day x10. I also gave him a prescription for tramadol 50 mg every 6 hours as needed for pain, 50 tablets, which he will hand carry to [place] in [place]. He will change his dressings tomorrow and maintain the compression. He will stop the Advil. He may take 2 Tylenol 4 times a day or 2 Tylenol, extra strength, 3 times a day with the tramadol if needed. He is not to drive or work with the tramadol. He will work nights at [employer] and is going home to take a nap before he has to be there at 8. He states Fjuul is his last night of nights. He will return on December 28, for ongoing wound care. I did make an appointment for him at the [facility], which will be February 01, and he will arrive at 7:30. I gave him a map to the area, as well as information on the [place]. The [facility] will contact him by mail to give him information on his appointment. Alexander Sousa CNP/yi Electronically Signed By: ALEXANDER SOUSA CNP On: 12/27/2013 11:32 AM Source: [facility] Document Id: [id number] documented in this encounter Miscellaneous Notes Miscellaneous - Antonella Pablo L.P.N. - 12/26/2013 2:59 PM CDT Adult Technical Assistance Consultant Intake/History Adult Technical Assistance Consultant Intake/History Entered On: 12/26/2013 15:03 CDT Performed On: 12/26/2013 14:59 CDT by ANTONELLA PABLO Intake Chief Complaint : inside of both ankles- very painful Temperature Core : 36.6 DegC(Converted to: 97.9 DegF) Peripheral Pulse Rate : 68 /min Respiratory Rate : 16 /min Systolic Blood Pressure : 138 mmHg Diastolic Blood Pressure : 98 mmHg (>HHI) NIBP Mean : 111 mmHg BP Location : Left upper extremity Blood Pressure Cuff Size : Large Height : 176 cm(Converted to: 5 ft 9 inch(es), 69 inch(es)) Actual Weight : 148 kg(Converted to: 326 lb 5 oz) Weight Source : Standing scale Dosing Weight Clinic : 148 kg Clinic BSA : 2.69 Body Mass Index : 47.78 kg/m2 ANTONELLA PABLO - 12/26/2013 14:59 CDT General Info Information Given By : Patient Languages : Peruvian Is Patient Female and 13-50 no hysterectomy : No ANTONELLA PABLO - 12/26/2013 14:59 CDT Subjective Pain Symptoms : Yes ANTONELLA PABLO 12/26/2013 14:59 CDT Pain Pain Assessment Grid Pain 1 Location : Ankle Intensity : 10 ANTONELLA PABLO - 12/26/2013 14:59 CDT Dependent Habits Tobacco Use/Currently Using : No Exposure to Tobacco Smoke : Other: non smoker Smoking Status : Never smoker ANTONELLA PABLO - 12/26/2013 14:59 CDT [facility] Document Id: [id number] CDT!32 Miscellaneous - Alexander Sousa APRN, C.N.P. - 12/26/2013 2:55 PM CDT Ambulatory Patient Summary [place] [address] [place], [place] [id number] Visit Information Name: ENGEBJOSE GUADALUPE RUSS [facility] Number: [id number] Current Date: 12/26/2013 14:55:51 Physicians Attending Provider: ALEXANDER SOUSA CNP Primary Care Provider: PCP, UNASSIGNED - JOSE GUADALUPE DURAN BRYAN has been given the following list of [...] Take Indications/Special Instructions/Comments/Notes for Patient Medication Changes/Routing albuterol (albuterol 90 mcg/inh inhalation aerosol) PRN *hydrocodone-acetaminophen (Vicodin 5 mg-500 mg oral tablet) See Instructions, as needed for Pain 1 to 2 tablets PO q6hr. / No more than 4,000mg acetaminophen/24hrs ibuprofen (Advil) as needed for Pain *triamcinolone topical (triamcinolone topical 0.1% ointment) 1 florence, Topical, two times a day * You have let us know that you are not taking this medication as listed. Please talk with your primary care provider or the health care provider who prescribed the medication as soon as possible. Stop Taking the Following Medications: Medication list as of 12-26-13 14:55 Attention: If you have any medications at [...] Electronically Signed By: ALEXANDER SOUSA CNP Signed On:26-DEC-2013 14:55:39 Your Allergies & Intolerances Substance Reaction Symptoms Category Comments No Known Allergies Drug Your Problem List Problem Status Onset Comments Herniated Disc Active 05/31/2001 Stasis Dermatitis Active 09/20/2007 Edema Active 04/23/2008 Eczema Active 04/24/2008 Ulcer of skin NOS Active 11/20/2009 Venous Stasis Ulcer with Inflammation Active 11/24/2009 Venous insufficiency NOS Active 03/16/2010 Your Upcoming Appointments Date Time Location Provider No Appointments found Attention: Contact your local Clinic if further appointment detail needed. Your Goals/Additional instructions: Source: [facility] POWERCHART Document Id: [id number] Miscellaneous - Alexander Sousa APRN, C.N.P. - 12/26/2013 2:55 PM CDT Ambulatory Discharge Medication List [address] [id number] Visit Information Name: JOSE GUADALUPE RIDLEY [facility] Number: [id number] Visit Date: 12/26/2013 14:55:50 Attending Provider: ALEXANDER SOUSA CNP Primary Care [...] Take Indications/Special Instructions/Comments/Notes for Patient Medication Changes/Routing albuterol (albuterol 90 mcg/inh inhalation aerosol) PRN *hydrocodone-acetaminophen (Vicodin 5 mg-500 mg oral tablet) See Instructions, as needed for Pain 1 to 2 tablets PO q6hr. / No more than 4,000mg acetaminophen/24hrs ibuprofen (Advil) as needed for Pain *triamcinolone topical (triamcinolone topical 0.1% ointment) 1 florence, Topical, two times a day * You have let us know that you are not taking this medication as listed. Please talk with your primary care provider or the health care provider who prescribed the medication as soon as possible. Stop Taking the Following Medications: Medication list as of 12-26-13 14:55 Attention: If you have any medications at [...] Electronically Signed By: ALEXANDER SOUSA CNP Signed On:26-DEC-2013 14:55:39 Additional Information: Source: [facility] POWER[facility]ART Document Id: [id number] documented in this encounter Plan of Treatment Not on filedocumented as of this encounter Procedures Procedure Name Priority Date/Time Associated Diagnosis Comme nts BACTERIAL CULTURE, Routine 12/26/2013 3:42 PM Res ults for this AEROBIC CDT procedure are i n the results section. BACTERIAL CULTURE, Routine 12/26/2013 3:42 PM Res ults for this AEROBIC CDT procedure are i n the results section. documented in this encounter Results (ABNORMAL) Bacterial Culture, Aerobic (12/26/2013 3:42 PM CDT) Component Value Ref Test Analysis Performed At [facility] gist Range Method Time Signature Wound (POSITIVE) POWERCHART Culture HX GS Many Mixed lucille POWERCHART (multiple species present) HX GS Few POWERCHART polymorphonuclear leukocytes HXPre Mixed lucille POWERCHART (multiple species present) including HXPre Streptococcus POWERCHART agalactiae (Group B) HXPre Gram Negative Rods POWERCHART x2 HXPre Enterococcus species POWERCHAR T HXPre No further studies POWERCHART done. HXFinal Mixed lucille POWERCHART (multiple species present) including HXFinal Streptococcus POWERCHART agalactiae (Group B) HXFinal Gram Negative Rods POWERCHART x2 HXFinal Enterococcus species POWERCHAR T HXFinal No further studies POWERCHART done. Specimen (Source) Anatomical Collection Method Collection Time Re ceived Time Location / / Volume Laterality Wound (Leg, Left) 12/26/2013 3:42 PM CDT Alexander Sousa APRN, C.N.P. LAB MICROBIOLOGY - GENERA L ORDERABLES Performing Organization Address City/State/ZIP Code Phon e Number POWERCHART (ABNORMAL) Bacterial Culture, Aerobic (12/26/2013 3:42 PM CDT) Component Value Ref Test Analysis Performed At [facility] gist Range Method Time Signature Wound (POSITIVE) POWERCHART Culture HX GS Many Mixed lucille POWERCHART (multiple species present) HX GS Few POWERCHART polymorphonuclear leukocytes HXPre Mixed lucille POWERCHART (multiple species present) including HXPre Streptococcus POWERCHART agalactiae (Group B) HXPre Gram Negative Rods POWERCHART x2 HXPre Enterococcus species POWERCHAR T HXPre No further studies POWERCHART done. HXFinal Mixed lucille POWERCHART (multiple species present) including HXFinal Streptococcus POWERCHART agalactiae (Group B) HXFinal Gram Negative Rods POWERCHART x2 HXFinal Enterococcus species POWERCHAR T HXFinal No further studies POWERCHART done. Specimen (Source) Anatomical Collection Method Collection Time Re ceived Time Location / / Volume Laterality Wound (Leg, 12/26/2013 3:42 PM Right) CDT Alexander Sousa APRN, C.N.P. LAB MICROBIOLOGY - GENERA L ORDERABLES Performing Organization Address City/State/ZIP Code Phon e Number POWERCHART documented in this encounter Visit Diagnoses Not on filedocumented in this encounter
--- OUTSIDE RECORDS SUMMARY | 2021-12-11 07:59 | XMS_ITS | Encounter Summary ---
:1960 Author Organization [facility] Address [address] [place] [address] Care Team Providers Name Role Phone Unavailable Primary Care Provider Unavailable Encounter Details Date Type Department Care Team Description 04/14/2010 Hospital Encounter HX [facility] Zoila Vivar a, BROADCAST DIRECTOR OPERATIONS, C.N.P. Social History Tobacco Use Types Packs/Day Years Used Date Smoking Tobacco: Never Assessed Sex Assigned at Date Recorded Not on file documented as of this encounter Progress Notes Merary Vivar - 04/14/2010 12:00 AM CST [id number] CHIEF COMPLAINT/REASON FOR VISIT The patient comes in today for wound care. HISTORY OF PRESENT ILLNESS The patient has venous stasis insufficiency and an ulcer on his left medial malleolus that we have been treating. We last saw him approximately two weeks ago. His wound has been healing; however, it has just been healing slowly. He does complain of increased pain. He is requesting a refill of his Vicodin. He has been taking 1-2 every night just so that he can sleep. He does wear his compression socks; however, for his job, he is up on his feet working at least 8-10 hours a day. By the time he gets home, he has significant pain in his leg. He has been changing his dressing every day to every other day depending on the drainage. He has no new concerns in regards to his wound. CURRENT MEDICATIONS Per EMR. ALLERGIES Per EMR. VITAL SIGNS Per EMR. PHYSICAL EXAM GENERAL: This is an obese well-developed 50-year-old male whom is non-ill appearing and in no acute distress. SKIN: The left lateral malleolus shows a wound that is 1.4 x 1.0 x 0.2 cm. There is approximately 70% granulating buds and 30% yellow slightly adherent slough. There is no undermining or tunneling noted. There is a minimal amount of serosanguineous drainage. There is a moderate amount of pain with palpation. Trace edema noted. He does have positive dorsalis pedis and posterior tibialis pulses, 2+ out of 4+. IMPRESSION/REPORT/PLAN PROCEDURE: Sharp debridement is done of the area with curette down to granulating tissue, partial thickness. The area is then cleansed. Promogran is applied to the wound and Skin Prep and Mepilex 3x3 bandage. 1) Venous stasis insufficiency with ulcer. PLAN: He will do dressing changes every other day to every third day depending on the drainage. We did give him supplies, and he will follow up next week. I did also refill his Vicodin to take as directed. Juliann Pappas, [facility], F.N.P.,B.C. Electronically Signed By:MERARY VIVAR STATION CHIEF On 04/20/2010 08:23 AM Source: [facility] MHSDOLBEYNONRADSYS Document Id: [id number] E RUBBER documented in this encounter Miscellaneous Notes Miscellaneous - Romie Stephenson, RKristineN. - 04/14/2010 8:59 AM CST Adult Job Counselor Intake/History Adult Job Counselor Intake/History Entered On: 04/14/2010 9:00 STONE RUBBER Performed On: 04/14/2010 8:59 STONE RUBBER by ORMIE STEPHENSON Intake Chief Complaint: wound care Temperature Oral: 36.2C(Converted to: 97.2DegF) Systolic Blood Pressure: 138mmHg Diastolic Blood Pressure: 78mmHg NIBP Mean: 98mmHg BP Location: Right upper extremity Actual Weight: 147.300kg(Converted to: 324lb 12oz) Dosing Weight Clinic: 147.30kg ROMIE STEPHENSON - 04/14/2010 8:59 STONE RUBBER Subjective Pain Symptoms: Yes ROMIE STEPHENSON - 04/14/2010 8:59 STONE RUBBER Pain Pain Assessment Grid Pain 1 Location: Foot Laterality: Left Intensity: 10 ROMIE STEPHENSON - 04/14/2010 8:59 STONE RUBBER Dependent Habits Tobacco Use/Currently Using: No Exposure to Tobacco Smoke: Other: non smoker Alcohol Use: Yes ROMIE STEPHENSON - 04/14/2010 8:59 STONE RUBBER Allergies Allergies (Active) NKA Estimated Onset Date: Unspecified ; Created By: CLARISA MARAVILLA; Reaction Status: Active ;Category: Drug ; Substance: NKA ; Type: Allergy ; Updated By: CLARISA MARAVILLA; Source: Patient; Reviewed Date: 04/14/2010 8:59 STONE RUBBER Source: [facility] POWERCHART Document Id: [id number] STONE RUBBER!22 E RUBBER documented in this encounter Plan of Treatment Not on filedocumented as of this encounter Visit Diagnoses Not on filedocumented in this encounter
--- OUTSIDE RECORDS SUMMARY | 2021-12-11 07:59 | XMS_ITS | Encounter Summary ---
:1960 Author Organization [facility] Address [address] [place] [address] Care Team Providers Name Role Phone Unavailable Primary Care Provider Unavailable Encounter Details Date Type Department Care Team Description 01/09/2014 Hospital Encounter HX [facility] INTERNMED Galen Sousa V., GENETIC SUPERVISOR, C.N.P. [address] [place] [address] (Wo rk) Social History Tobacco Use Types Packs/Day Years Used Date Smoking Tobacco: Never Assessed Sex Assigned at Date Recorded Not on file documented as of this encounter Last Filed Vital Signs Vital Sign Reading Time Taken Comments Blood Pressure 144/110 01/09/2014 4:09 PM CDT Pulse 72 01/09/2014 3:38 PM CDT Temperature - - Respiratory Rate 20 01/09/2014 3:38 PM CDT Oxygen Saturation - - Inhaled Oxygen Concentration - - Weight 147 kg (324 lb 15.3 oz) 01/09/2014 3:38 PM CDT Height 178 cm (5' 10.08) 01/09/2014 4:09 PM CDT Body Mass Index 46.52 01/09/2014 3:38 PM CDT documented in this encounter Progress Notes Gisselle Batista, L.P.N. - 01/09/2014 3:43 PM CDT Wound Care Wound Care Entered On: 01/09/2014 15:43 CDT Performed On: 01/09/2014 15:43 CDT by GISSELLE BATISTA Integumentary Pain Symptoms : Yes GISSELLE BATISTA - 01/09/2014 15:43 CDT Pain Pain Assessment Grid Pain 1 Location : Lower leg GISSELLE BATISTA - 01/09/2014 15:43 CDT [facility] Document Id: [id number] CDT!7 Alexander Sousa APRN, C.N.P. - 01/09/2014 3:32 PM CDT [id number] HISTORY OF PRESENT ILLNESS Tank returns for wound care for bilateral lower extremity venous stasis ulcers complicated by historyof delayed healing and infection. I notice in the record, he saw Dr. Avery yesterday to establish primary care. Tank presents today after working on his feet all day at [address]. He does not have compression stockings on and his lower extremities are quite swollen. He does have jeans on and his jeans are only able to be raised slightly above the level of the wounds. I did speak with him about compression stockings and will write a prescription for them if he does not have access to a new pair at home. He denies any complaints with any review of systems. PHYSICAL EXAMINATION SKIN: His right lower extremity inner malleolar area wound measures 5 x 3.6. There is yellow slough with granulating buds seen. There are irregular borders. No tunneling, undermining, odor. Drainage isscant serous. The left lower extremity inner malleolar area ulcer measures 5.5 x 3.5. There is yellow slough with some granulation seen. Irregular borders. No tunneling, undermining, or odor. Drainage is moderate serous. There is bilateral lower extremity 3 to 4+ edema. IMPRESSION/REPORT/PLAN Venous stasis ulcers complicated by history of delayed healing. Wounds were cleansed with saline, PCMX, rinsed well. Procedural pause conducted to verify: Correct patient, identity, procedure to be performed and as applicable, correct side and site, correct patient position and availability of special requirements. Selective debridement was done using Celleration ultrasonic MIST therapy for 3 minutes. Wounds were rinsed with saline and dried. Santyl was applied to the wound bed, covered with Mepilex Ag. He will change his dressings tomorrow and return on Tuesday morning for ongoing wound care. Alexander Sousa CNP/yi Electronically Signed By: ALEXANDER SOUSA CNP On: 01/11/2014 08:54 AM Source: [facility] MHSDOLBEYNONRADSYS Document Id: [id number] documented in this encounter Miscellaneous Notes Miscellaneous - Gisselle Batista L.P.N. - 01/09/2014 4:09 PM CDT Ambulatory Vitals Height Weight Ambulatory Vitals Height Weight Entered On: 01/09/2014 16:09 CDT Performed On: 01/09/2014 16:09 CDT by GISSELLE BATISTA/Ht/Wt Systolic Blood Pressure : 144 mmHg (HI) Diastolic Blood Pressure : 110 mmHg (>HHI) NIBP Mean : 121 mmHg BP Location : Right upper extremity Blood Pressure Cuff Size : Large Height : 178 cm(Converted to: 5 ft 10 inch(es), 70 inch(es)) GISSELLE BATISTA - 01/09/2014 16:09 CDT Source: [facility] POWERCHART Document Id: [id number] CDT!8 Miscellaneous - Alexander Sousa APRN, C.N.P. - 01/09/2014 3:47 PM CDT Ambulatory Patient Summary [address] [id number] Visit Information Name: JOSE GUADALUPE RIDLEY [facility] Number: [id number] Current Date: 01/09/2014 15:47:00 Physicians Attending Provider: ALEXANDER SOUSA CNP Primary [...] Take Indications/Special Instructions/Comments/Notes for Patient Medication Changes/Routing cephalexin (Keflex 500 mg oral capsule) 1 cap, Oral, four times a day x 10 day(s) ibuprofen (Advil) as needed for Pain traMADol (traMADol 50 mg oral tablet) 1 Tablet(s), Oral, every 6 hours as needed for Pain Stop Taking the Following Medications: Medication list as of 01-09-14 15:47 Attention: If you have any medications at [...] Electronically Signed By: ALEXANDER SOUSA CNP Signed On:09-JAN-2014 15:46:46 Your Allergies & Intolerances Substance Reaction Symptoms [...] Your Upcoming Appointments Date Time Location Provider 01/11/2014 11:00 [facility] Alexander Sousa CNP, V 01/15/2014 08:20 [facility] 02/05/2014 08:10 [facility] Intern[facility] Avery MD, Curtis Rothman Attention: Contact your local Clinic if further appointment detail needed. Your Goals/Additional instructions: Source: [facility] POWERCHART Document Id: [id number] Miscellaneous - Alexander Sousa APRN, C.N.P. - 01/09/2014 3:46 PM CDT Ambulatory Discharge Medication List [address] [id number] Visit Information Name: JOSE GUADALUPE RIDLEY [facility] Number: [id number] Visit Date: 01/09/2014 15:46:58 Attending Provider: ALEXANDER SOUSA CNP Primary Care [...] Take Indications/Special Instructions/Comments/Notes for Patient Medication Changes/Routing cephalexin (Keflex 500 mg oral capsule) 1 cap, Oral, four times a day x 10 day(s) ibuprofen (Advil) as needed for Pain traMADol (traMADol 50 mg oral tablet) 1 Tablet(s), Oral, every 6 hours as needed for Pain Stop Taking the Following Medications: Medication list as of 01-09-14 15:46 Attention: If you have any medications at [...] Electronically Signed By: ALEXANDER SOUSA CNP Signed On:09-JAN-2014 15:46:46 Additional Information: Source: [facility] POWERCHART Document Id: [id number] Miscellaneous - Gisselle Batista L.P.N. - 01/09/2014 3:38 PM CDT Adult Store Sales Manager Intake/History Adult Store Sales Manager Intake/History Entered On: 01/09/2014 15:43 CDT Performed On: 01/09/2014 15:38 CDT by GISSELLE BATISTA Intake Chief Complaint : Wound care both lower legs Temperature Core : 36.4 DegC(Converted to: 97.5 DegF) (LOW) Peripheral Pulse Rate : 72 /min Respiratory Rate : 20 /min Systolic Blood Pressure : 150 mmHg (HI) Diastolic Blood Pressure : 104 mmHg (>HHI) NIBP Mean : 119 mmHg BP Location : Right upper extremity Blood Pressure Cuff Size : Large Height : 178 cm(Converted to: 5 ft 10 inch(es), 70 inch(es)) Actual Weight : 147.4 kg(Converted to: 324 lb 15 oz) Weight Source : Standing scale Dosing Weight Clinic : 147.4 kg Clinic BSA : 2.7 Body Mass Index : 46.52 kg/m2 GISSELLE BATISTA - 01/09/2014 15:38 CDT General Info Information Given By : Patient Preferred Communication Mode : Verbal Languages : Jordanian Is Patient Female and 13-50 no hysterectomy : No GISSELLE BATISTA - 01/09/2014 15:38 CDT Subjective Pain Symptoms : Yes GISSELLE BATISTA 01/09/2014 15:38 CDT Pain Pain Assessment Grid Pain 1 Location : Lower leg Laterality : Right Intensity : 7 Quality : Sharp Alleviating Factors : Medication GISSELLE BATISTA - 01/09/2014 15:38 CDT (Comment: like wire brush hitting [GISSELLE BATISTA - 01/09/2014 15:38 CDT] ) Dependent Habits Tobacco Use/Currently Using : No Tobacco Use/Last 12 months : No Exposure to Tobacco Smoke : Other: non smoker Smoking Status : Never smoker GISSELLE BATISTA - 01/09/2014 15:38 CDT [facility] Document Id: [id number] CDT!37 documented in this encounter Plan of Treatment Not on filedocumented as of this encounter Visit Diagnoses Not on filedocumented in this encounter
--- OUTSIDE RECORDS SUMMARY | 2021-12-11 07:59 | XMS_ITS | Encounter Summary ---
:1960 Author Organization [facility] Address [address] [place] [address] Care Team Providers Name Role Phone Unavailable Primary Care Provider Unavailable Encounter Details Date Type Department Care Team Description 03/23/2011 Hospital Encounter HX [facility] Zoila Vivar a, COLLAR BASTER JUMPBASTING, C.N.P. Social History Tobacco Use Types Packs/Day Years Used Date Smoking Tobacco: Never Assessed Sex Assigned at Date Recorded Not on file documented as of this encounter Progress Notes Merary Vivar - 03/23/2011 12:00 AM CST [id number] CHIEF COMPLAINT / REASON FOR VISIT Patient comes in today for wound care. HISTORY OF PRESENT ILLNESS I have seen the patient in the past in regards to wound, however, it has been quite some time ago, approximately May of 2010. The wound in question is the same wound. He states that it almost closed, about the size of a pencil eraser head, and then he ran out of cream about 2 weeks ago and now it has worsened. He denies any pain or discomfort. He has not been covering it, nor has it had any weeping. He does wear his compression socks everyday. He has no other concern or complaint. No primary care provider. CURRENT MEDICATIONS None. ALLERGIES None. PAST MEDICAL / SURGICAL HISTORY 1) Venous insufficiency with hemosiderin staining. 2) Recurrent venous stasis ulcer with inflammation. 3) Stasis dermatitis. VITAL SIGNS Per EMR. PHYSICAL EXAM GENERAL: This is an obese, well-developed 51-year-old male who is non ill-appearing and in no acute distress. EXTREMITIES: Examination of the left lower extremity medially, just superior to the malleolus, there is a wound that is approximately 1.5 x 1.5 x 0.3 cm. Wound bed is 50% covered in yellow adherent slough and 50% granulating tissue. There is no undermining or tunneling. There are no rolled edges. There is a small amount of serosanguineous discharge. There is some minimal pain with debridement. No signs of infection. No foul odor or foul drainage. There is noted hemosiderin staining and noted scarring from prior wounds. Positive dorsalis pedis and posterior tibialis pulses, 2+ out of 4+ with palpation. IMPRESSION/REPORT/PLAN PROCEDURE: Area was debrided with sharp debridement, use of curette to remove the yellow slough. Area was then cleansed with SAF-Cleans. We applied Promogran and a Mepilex 4 x 4 boarder. The patient will do dressing change on an every other day basis and he will return to clinic in 2 weeks as directed. 1) Venous stasis insufficiency with ulcer. PLAN: See above. I also think the patient is a candidate for Apligraf. Encouraged patient to schedule 2 days off of work and we will work around his schedule in order to apply this. I think needs more advanced treatments for this wound. Juliann Pappas, [facility] Anyi, F.N.P.,B.C. Electronically Signed By: MERARY VIVAR SUTURE POLISHER On: 04/13/2011 08:59 AM Source: [facility] MHSDOLBEYNONRADSYS Document Id: [id number] NE RADIO INSTALLER AND SERVICER documented in this encounter Miscellaneous Notes Miscellaneous - Romie Stephenson RKristineN. - 03/23/2011 8:51 AM CST Adult Community Outreach Advocate Intake/History Adult Community Outreach Advocate Intake/History Entered On: 03/23/2011 8:53 MARINE RADIO INSTALLER AND SERVICER Performed On: 03/23/2011 8:51 MARINE RADIO INSTALLER AND SERVICER by ROMIE STEPHENSON Intake Chief Complaint : wound care medial malleolous Temperature Oral : 36.9C(Converted to: 98.4DegF) Systolic Blood Pressure : 140mmHg Diastolic Blood Pressure : 98mmHg (>HHI) NIBP Mean : 112mmHg BP Location : Right upper extremity Actual Weight : 150.3kg(Converted to: 331lb 6oz) Dosing Weight Clinic : 150.30kg ROMIE STEPHENSON - 03/23/2011 8:51 MARINE RADIO INSTALLER AND SERVICER Subjective Pain Symptoms : No ROMIE STEPHENSON - 03/23/2011 8:51 MARINE RADIO INSTALLER AND SERVICER Dependent Habits Tobacco Use/Currently Using : No Exposure to Tobacco Smoke : Other: non smoker Smoking Status : Never smoker Alcohol Use : Yes ROMIE STEPHENSON - 03/23/2011 8:51 MARINE RADIO INSTALLER AND SERVICER Allergy Allergies (Active) NKA Estimated Onset Date: Unspecified ; Created By: CLARISA MARAVILLA; Reaction Status: Active ;Category: Drug ; Substance: NKA ; Type: Allergy ; Updated By: CLARISA MARAVILLA; Source: Patient; Reviewed Date: 03/23/2011 8:49 MARINE RADIO INSTALLER AND SERVICER Source: [facility] POWERKnotProfit Document Id: [id number] MARINE RADIO INSTALLER AND SERVICER!17 NE RADIO INSTALLER AND SERVICER Miscellaneous - Romie Stephenson, R.N. - 03/23/2011 8:50 AM CST Health Assessment Health Assessment Entered On: 03/23/2011 8:51 MARINE RADIO INSTALLER AND SERVICER Performed On: 03/23/2011 8:50 MARINE RADIO INSTALLER AND SERVICER by ROMIE STEPHENSON Health Assessment Complete Health Assessment Complete or Modified : Modified Health Assessment ROMIE STEPHENSON - 03/23/2011 8:50 MARINE RADIO INSTALLER AND SERVICER Nutrition Nutrition Risk Factors by History Adult : None ROMIE STEPHENSON - 03/23/2011 8:50 MARINE RADIO INSTALLER AND SERVICER Functional Current Daily Living Assistance : None ROMIE STEPHENSON - 03/23/2011 8:50 MARINE RADIO INSTALLER AND SERVICER Dependent Habits Tobacco Use/Currently Using : No Exposure to Tobacco Smoke : Other: non smoker Smoking Status : Never smoker ROMIE STEPHENSON - 03/23/2011 8:50 MARINE RADIO INSTALLER AND SERVICER Psychosocial Domestic Abuse Concerns : None ROMIE STEPHENSON - 03/23/2011 8:50 MARINE RADIO INSTALLER AND SERVICER Advance Directive Advanced Directives : No ROMIE STEPHENSON - 03/23/2011 8:50 MARINE RADIO INSTALLER AND SERVICER Educ Needs Learning Style Preference Adult Grid Patient : Verbal explanation Family : Printed materials ROMIE STEPHENSON - 03/23/2011 8:50 MARINE RADIO INSTALLER AND SERVICER Source: [facility] POWERCHART Document Id: [id number] MARINE RADIO INSTALLER AND SERVICER!19 NE RADIO INSTALLER AND SERVICER documented in this encounter Plan of Treatment Not on filedocumented as of this encounter Visit Diagnoses Not on filedocumented in this encounter
--- OUTSIDE RECORDS SUMMARY | 2021-12-11 07:59 | XMS_ITS | Encounter Summary ---
:1960 Author Organization [facility] Address [address] [place] [address] Care Team Providers Name Role Phone Unavailable Primary Care Provider Unavailable Encounter Details Date Type Department Care Team Description 04/28/2010 Hospital Encounter HX [facility] Zoila Vivar a, ZOE, C.N.P. Social History Tobacco Use Types Packs/Day Years Used Date Smoking Tobacco: Never Assessed Sex Assigned at Date Recorded Not on file documented as of this encounter Progress Notes Merary Vivar - 04/28/2010 12:00 AM CST [id number] CHIEF COMPLAINT/REASON FOR VISIT The patient comes in today for wound care. HISTORY OF PRESENT ILLNESS We have been seeing the patient on a weekly basis for wound care of his left medial malleolus. The last time I saw the patient was 04/21/2010. He is complaining of more drainage and more pain. He has been changing the bandage every other day. He continues to work and be quite active. He is wearing his compression socks, and he has been trying to put lotion around the skin that is sore. He also needs a refill of his Vicodin as he is almost out. He takes 2-3 a day. CURRENT MEDICATIONS Per EMR. ALLERGIES Per EMR. VITAL SIGNS Per EMR. PHYSICAL EXAM GENERAL: This is an obese, well-developed 50-year-old male whom is non-ill appearing and in no acute distress. SKIN: The left lateral malleolus shows a wound that is 0.9 x 0.6 x 0.2 cm. The wound bed is approximately 70% granulating blood and 30% yellow loose adherent slough. There is a bridging starting to form. There is no undermining or tunneling noted. Periwound is denuded approximately 4-5 cm around the wound. There is pain with palpation. He does have hemosiderin staining noted, and there is no edema. There is no foul odor or foul drainage. IMPRESSION/REPORT/PLAN PROCEDURE: Sharp debridement with curet is done to remove the yellow adherent slough down to granulating tissue. The area is then cleansed with normal saline. We then applied Amerigel, Skip Prep, Fibracol, and a 6x6 foam wrapped with Kerlix. 1) Venous stasis insufficiency. PLAN: The patient will change dressing on a daily basis. He will return next week. We did give him some Fibracol. I did encourage him to use it as directed. Follow up sooner as needed. I did also give him a refill of his Vicodin. He is to take only 2-3 a day as this prescription should last for quite some time. The patient is in agreement with this. I encouraged him to call me if he has any concerns or complaints. ADMINISTRATIVE BILLING Total Time: 30 minutes. Counseling Time: 25 minutes in consultation and coordination of care. Juliann Pappas, [facility] Anyi, F.N.P.,B.C. Electronically Signed By:MERARY VIVAR CONVEYOR MAINTENANCE MECHANIC On 05/04/2010 08:46 AM Source: [facility] MHSDOLBEYNONRADSYS Document Id: [id number] TECHNICIAN documented in this encounter Miscellaneous Notes Miscellaneous - Romie Stephenson, RKristineN. - 04/28/2010 8:26 AM CST Adult Crop And Soil Scientist Intake/History Adult Crop And Soil Scientist Intake/History Entered On: 04/28/2010 8:26 VTC TECHNICIAN Performed On: 04/28/2010 8:26 VTC TECHNICIAN by ROMIE STEPHENSON Intake Chief Complaint: woundcare Temperature Oral: 36.6C(Converted to: 97.9DegF) Systolic Blood Pressure: 140mmHg Diastolic Blood Pressure: 88mmHg NIBP Mean: 105mmHg BP Location: Right upper extremity Actual Weight: 140.100kg(Converted to: 308lb 14oz) Dosing Weight Clinic: 140.10kg ROMIE STEPHENSON - 04/28/2010 8:26 VTC TECHNICIAN Subjective Pain Symptoms: Yes ROMIE STEPHENSON - 04/28/2010 8:26 VTC TECHNICIAN Pain Pain Assessment Grid Pain 1 Location: Lower leg Laterality: Left Intensity: 10 ROMIE STEPHENSON - 04/28/2010 8:26 VTC TECHNICIAN Dependent Habits Tobacco Use/Currently Using: No Exposure to Tobacco Smoke: Other: non smoker Alcohol Use: Yes ROMIE STEPHENSON - 04/28/2010 8:26 VTC TECHNICIAN Allergies Allergies (Active) NKA Estimated Onset Date: Unspecified ; Created By: CLARISA MARAVILLA; Reaction Status: Active ;Category: Drug ; Substance: NKA ; Type: Allergy ; Updated By: CLARISA MARAVILLA; Source: Patient; Reviewed Date: 04/28/2010 8:25 VTC TECHNICIAN Source: [facility] POWERCHART Document Id: [id number] VTC TECHNICIAN!22 TECHNICIAN documented in this encounter Plan of Treatment Not on filedocumented as of this encounter Visit Diagnoses Not on filedocumented in this encounter
--- OUTSIDE RECORDS SUMMARY | 2021-12-11 07:59 | XMS_ITS | Encounter Summary ---
:1960 Author Organization [facility] Address [address] [place] [address] Care Team Providers Name Role Phone Unavailable Primary Care Provider Unavailable Encounter Details Date Type Department Care Team Description 06/22/2011 Hospital Encounter HX [facility] Zoila Vivar a, ZOE, C.N.P. Social History Tobacco Use Types Packs/Day Years Used Date Smoking Tobacco: Never Assessed Sex Assigned at Date Recorded Not on file documented as of this encounter Last Filed Vital Signs Vital Sign Reading Time Taken Comments Blood Pressure 128/76 06/22/2011 9:09 AM CDT Pulse - - Temperature - - Respiratory Rate - - Oxygen Saturation - - Inhaled Oxygen Concentration - - Weight 147 kg (323 lb 10.2 oz) 06/22/2011 9:09 AM CDT Height - - Body Mass Index - - documented in this encounter Progress Notes Merary Vivar - 06/22/2011 12:00 AM CDT [id number] CHIEF COMPLAINT/REASON FOR VISIT Wound care HISTORY OF PRESENT ILLNESS We have been seeing patient for quite some time due to venous insufficiency and ulcer on his left medial malleolus area. Our last visit was approximately 2 weeks ago. He has been applying Medihoney to the area and covering it with a Telfa and some Sarah. He does change the bandage every day. He does wear compression socks as much as possible. He states he leaves his compression socks on even at night otherwise his legs are swollen. He denies any new concerns or complaints today in regards to his wound. CURRENT MEDICATIONS Reviewed EMR dated 06/22/11 and no changes. ALLERGIES Reviewed EMR dated 06/22/11 and no changes. VITAL SIGNS Reviewed EMR dated 06/22/11 and no changes. PHYSICAL EXAM GENERAL: Obese, well-developed, 51-year-old male who is non-ill appearing in no acute distress. EXTREMITIES: Left lower extremity superior to the medial malleolus shows a wound that is approximately 1 x 1 x 0.2 cm. It is similar to that date on 06/10/2011. Wound bed has a light yellow adherent slough covering it and there is a small amount of serous drainage. Minimal pain with palpation. No undermining or tunneling. Periwound shows 1+ edema more at the dorsal aspect of the foot. There is bilateral hemosiderin staining and skin is quite dry. During this procedure the universal protocol was utilized. The patient's identity was confirmed by no less than two patient identifiers, correct procedure was verified, correct site was verified and marked as applicable and a final pause was completed. PROCEDURE: Area was debrided using sharp debridement of the curette to remove yellow adherent slough. Small amount of sanguinous discharge was noted. Area was then covered with Pulmogram, gauze and Sarah. IMPRESSION/REPORT/PLAN 1) Venous insufficiency with ulcer PLAN: 1) Encouraged patient to wear his compression socks religiously we will change up his dressing to have him put program on a daily basis times two weeks. I did instruct him not to remove the old program, that it may be just reapplied over it. He does have supplies at home. He will follow up in 2 weeks here at the clinic and we will do further observation. Patient is comfortable with this plan. I encourage him to call with questions. Juliann Pappas, lucio RTayo, F.N.P.,B.C. Electronically Signed By: MERARY VIVAR NP On: 07/02/2011 02:59 PM Source: [facility] MHSDOLBEYNONRADSYS Document Id: [id number] documented in this encounter Miscellaneous Notes Miscellaneous - Merary Vivar - 06/22/2011 9:45 AM CDT Ambulatory Patient Summary [facility] [address] [place] [address] Visit Information Name: JOSE GUADALUPE RIDLEY Current Date: 06/22/2011 09:45:33 Physicians Attending Provider: MERARY VIVAR SHANK TURNER Primary Care Provider: MERARY VIVAR SHANK TURNER Your Medications Here is a list of [...] Additional Information Health Assessment every 1 year 06/22/2011 06/21/2012 Screening Colonoscopy or Flex Sig or Occult Blood 06/22/2011 Checks for signs of cancer of the colon. Lipid Panel every 5 years Age 20-75 06/22/2011 Checks blood for good (HDL) and bad (LDL) cholesterol. Know your numbers, they are one indicator of your risk for heart attack and stroke. Vaccine: Flu every 1 year 06/22/2011 Immunization to help prevent you from getting the flu strain expected to be a problem for that year's flu season. Vaccine: Tetanus every 10 years 06/22/2011 Immunization to help prevent you from getting the seriousdisease Tetanus (Lockjaw). Your Upcoming Appointments Date Time Location Reason Provider 07/06/2011 09:15 [facility] Merary Vivar NP Your Goals/Additional instructions: Source: [facility] POWERCHART Document Id: [id number] Miscellaneous - Merary Vivar - 06/22/2011 9:45 AM CDT Ambulatory Depart Summary [address] [address] Visit Information Name: ARISTIDESJOSE GUADALUPE NATHAN Visit Date: 06/22/2011 09:45:32 Attending Provider: MERARY VIVAR NP Primary Care Provider: MERARY VIVAR NP JOSHUA JOSE GUADALUPE ADAMS has been given [...] your provider for clarification. Additional Information: Source: [facility] POWERCHART Document Id: [id number] Miscellolga lidia - Romie Stephenson RKristineN. 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 Intake/History Entered On: 06/22/2011 9:12 CDT Performed On: 06/22/2011 9:09 CDT by ROMIE STEPHENSON Intake Chief Complaint : wound care Temperature Oral : 36.6C(Converted to: 97.9DegF) Systolic Blood Pressure : 128mmHg Diastolic Blood Pressure : 76mmHg NIBP Mean : 93mmHg BP Location : Right upper extremity Blood Pressure Cuff Size : Large Actual Weight : 146.8kg(Converted to: 323lb 10oz) Dosing Weight Clinic : 146.80kg ROMIE STEPHENSON - 06/22/2011 9:09 CDT Subjective Pain Symptoms : No ROMIE STEPHENSON - 06/22/2011 9:09 CDT Dependent Habits Tobacco Use/Currently Using : No Exposure to Tobacco Smoke : Other: non smoker Smoking Status : Never smoker ROMIE STEPHENSON - 06/22/2011 9:09 CDT Allergy Allergies (Active) NKA Estimated Onset Date: Unspecified ; Created By: CLARISA MARAVILLA; Reaction Status: Active ;Category: Drug ; Substance: NKA ; Type: Allergy ; Updated By: CLARISA MARAVILLA; Source: Patient; Reviewed Date: 06/22/2011 9:08 CDT Source: [facility] POWERCHART Document Id: [id number] CDT!17 Miscellolga lidia - Romie Stephenson RKenneth. - 06/22/2011 9:08 AM CDT Health Assessment Health Assessment Entered On: 06/22/2011 9:09 CDT Performed On: 06/22/2011 9:08 CDT by ROMIE STEPHENSON Health Assessment Complete Health Assessment Complete or Modified : Annual Health Assessment Annual Health Assessment Completed : Yes ROMIE STEPHENSON - 06/22/2011 9:08 CDT Nutrition Nutrition Risk Factors by History Adult : None ROMIE STEPHENSON - 06/22/2011 9:08 CDT Functional Current Daily Living Assistance : None ROMIE STEPHENSON - 06/22/2011 9:08 CDT Dependent Habits Tobacco Use/Currently Using : No Exposure to Tobacco Smoke : Other: non smoker Smoking Status : Never smoker ROMIE STEPHENSON - 06/22/2011 9:08 CDT Psychosocial Domestic Abuse Concerns : None ROMIE STEPHENSON - 06/22/2011 9:08 CDT Advance Directive Advanced Directives : No ROMIE STEPHENSON - 06/22/2011 9:08 CDT Educ Needs Learning Style Preference Adult Grid Patient : Verbal explanation Family : None ROMIE STEPHENSON - 06/22/2011 9:08 CDT Source: [facility] POWERCHART Document Id: [id number] CDT!20 documented in this encounter Plan of Treatment Not on filedocumented as of this encounter Visit Diagnoses Not on filedocumented in this encounter
--- OUTSIDE RECORDS SUMMARY | 2021-12-11 07:59 | XMS_ITS | Encounter Summary ---
:1960 Author Organization [facility] Address [address] [place] [address] Care Team Providers Name Role Phone Unavailable Primary Care Provider Unavailable Encounter Details Date Type Department Care Team Description 12/26/2013 Hospital Encounter HX NO MAPPING Lory Sousa V., APR N, C.N.P. [address] [place], [place] [phone] (Wo rk) Social History Tobacco Use Types Packs/Day Years Used Date Smoking Tobacco: Never Assessed Sex Assigned at Date Recorded Not on file documented as of this encounter Plan of Treatment Not on filedocumented as of this encounter Visit Diagnoses Not on filedocumented in this encounter
--- OUTSIDE RECORDS SUMMARY | 2021-12-11 07:59 | XMS_ITS | Encounter Summary ---
:1960 Author Organization [facility] Address [address] [place] [address] Care Team Providers Name Role Phone Unavailable Primary Care Provider Unavailable Encounter Details Date Type Department Care Team Description 02/13/2014 Hospital Encounter HX [facility] Galen Sousa V., BOWLING BALL PATCHER, C.N.P. [address] [place] [address] (Wo rk) Social History Tobacco Use Types Packs/Day Years Used Date Smoking Tobacco: Never Assessed Sex Assigned at Date Recorded Not on file documented as of this encounter Last Filed Vital Signs Vital Sign Reading Time Taken Comments Blood Pressure 146/86 02/13/2014 4:20 PM [facility]NA[facility] Pulse 60 02/13/2014 4:20 PM [facility] Temperature - - Respiratory Rate 18 02/13/2014 4:20 PM [facility]NA[facility] Oxygen Saturation - - Inhaled Oxygen Concentration - - Weight 143 kg (315 lb 0.6 oz) 02/13/2014 4:20 PM [facility] Height 178 cm (5' 10.08) 02/13/2014 4:20 PM [facility] Body Mass Index 45.1 02/13/2014 4:20 PM [facility] documented in this encounter Progress Notes Gisselle Batista, L.P.N. - 02/13/2014 4:24 PM CST Wound Care Wound Care Entered On: 02/13/2014 16:25 [facility] Performed On: 02/13/2014 16:24 [facility]NA[facility] by GISSELLE BATISTA Integumentary Pain Symptoms : Yes GISSELLE BATISTA - 02/13/2014 16:24 [facility] Pain Pain Assessment Grid Pain 1 Location : Lower leg GISSELLE BATISTA - 02/13/2014 16:24 [facility] POWER[facility] Document Id: [id number] MANA[facility]!7 [facility] Alexander Sousa APRN, C.N.P. - 02/13/2014 2:59 PM CST [id number] HISTORY OF PRESENT ILLNESS Tank returns for ongoing wound care of bilateral lower extremity medial venous stasis ulcers complicated by history of delayed healing. Tank has terrific pain in the right wound bed. He has had pain eversince seeking treatment. He is asking for a refill on his [place]. I did refill the prescription and told him this would be the last prescription I will write for him. If he is still having that much pain then he would need to follow up with the Wound Clinic in [place]. PHYSICAL EXAMINATION SKIN: The right medial wound measures 4.5 x 3. There is a lot of epithelization with granulation. [place]. No tunneling, no undermining, no odor, no drainage. There is edema of the right leg. Left lower extremity wound measures 5 x 3. This also is showing good granulation with epithelization. No tunneling, undermining, odor or drainage. There is edema of the leg. IMPRESSION/REPORT/PLAN Bilateral lower extremity venous stasis ulcers complicated by history of delayed healing and pain. Both wounds were cleansed with saline, PCMX, rinsed well. Procedural pause conducted to verify: Correct patient, identity, procedure to be performed and as applicable, correct side and site, correct patient position and availability of special requirements. Selective debridement was done using Celleration ultrasonic MIST therapy for 3 minutes. Wounds were rinsed with saline and dried. Medihoney was applied to the wound bed, covered with an ABD and held inplace with a Kerlix wrap. I noticed Tank had some erythema behind both knees. [place] who manages diabetes and by Dr. Avery because thecandidiasis behind the knees is indicative of increased blood sugars. He has told me that made sensebecause he has gone back to his old habits of drinking pop. I did reiterate that elevated blood sugars would slow healing and he needed to have his blood sugars managed. I did give him, as I said, a new prescription for [place] and I gave also for lidocaine jelly to apply to the wound for 10 minutes prior to his changing his dressing. He states he is able to come to Wound Clinic only once a week and will return next Tuesday. Alexander Sousa CNP/yi Electronically Signed By: ALEXANDER SOUSA CNP On: 02/14/2014 01:29 PM Source: [facility] MHSDOLBEYNONRADSYS Document Id: [id number] [facility] documented in this encounter Miscellaneous Notes Miscellaneous - Alexander Sousa APRN, C.N.P. - 02/13/2014 4:25 PM CST Ambulatory Patient Summary [address] [id number] Visit Information Name: JOSE GUAADLUPE RIDLEY [facility] Number: [id number] Current Date: 02/13/2014 16:25:07 Physicians Attending Provider: ALEXANDER SOUSA CNP Primary Care Provider: PCP, UNASSIGNED - JOSE GUADALUPE RIDLEY has been given the [...] Take Indications/Special Instructions/Comments/Notes for Patient Medication Changes/Routing HYDROcodone-acetaminophen ([place] 5 mg-325 mg oral tablet) 1 Tablet(s), Oral, every 6 hours as neededfor Pain No more than 4,000mg acetaminophen/24hrs ibuprofen (Advil) as needed for Pain levofloxacin (Levaquin 500 mg oral tablet) 1 Tablet(s), Oral, once a day Stop Taking the Following Medications: Medication list as of 02-13-14 16:25 Attention: If you have any medications at [...] Electronically Signed By: ALEXANDER SOUSA CNP Signed On:13-FEB-2014 16:24:51 Your Allergies & Intolerances Substance Reaction Symptoms [...] appointment detail needed. Your Goals/Additional instructions: Source: [facility] POWERCHART Document Id: [id number] [facility] Miscellaneous - Alexander Sousa APRN, C.N.P. - 02/13/2014 4:25 PM CST Ambulatory Discharge Medication List [address] [id number] Visit Information Name: JOSE GUADALUPE RIDLEY [facility] Number: [id number] Visit Date: 02/13/2014 16:25:06 Attending Provider: ALEXANDER SOUSA CNP Primary Care Provider: PCP, UNASSIGNED - OW JOSE GUADALUPE RIDLEY BRYAN has been given the following list of medications: Your Medications It is important to take your medications as directed. Use a pill box or chart to help remind you to take your medications. Please let your doctor or nurse know if you have problems taking your medications. Medication/Strength How to Take Indications/Special Instructions/Comments/Notes for Patient Medication Changes/Routing HYDROcodone-acetaminophen ([place] 5 mg-325 mg oral tablet) 1 Tablet(s), Oral, every 6 hours as neededfor Pain No more than 4,000mg acetaminophen/24hrs ibuprofen (Advil) as needed for Pain levofloxacin (Levaquin 500 mg oral tablet) 1 Tablet(s), Oral, once a day Stop Taking the Following Medications: Medication list as of 02-13-14 16:25 Attention: If you have any medications at home that are not on this list, DO NOT take them until youcontact your provider for clarification. Give a copy of your medication list to your primary care provider. Update your medication list any time medications or doses are changed and carry your medication list at all times in case of emergency. Electronically Signed By: ALEXANDER SOUAS V INSURANCE CLAIMS ASSISTANT Signed On:13-FEB-2014 16:24:51 Additional Information: Source: [facility] POWERCHART Document Id: [id number] [facility] Miscellaneous - Gisselle Batista, L.P.N. 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 Intake/History Entered On: 02/13/2014 16:24 [facility] Performed On: 02/13/2014 16:20 [facility] by GISSELLE BATISTA Intake Chief Complaint : Wound care both lower legs Temperature Core : 36.2 DegC(Converted to: 97.2 DegF) (LOW) Peripheral Pulse Rate : 60 /min Respiratory Rate : 18 /min Systolic Blood Pressure : 146 mmHg (HI) Diastolic Blood Pressure : 86 mmHg NIBP Mean : 106 mmHg BP Location : Right upper extremity Blood Pressure Cuff Size : Large Height : 178 cm(Converted to: 5 ft 10 inch(es), 70 inch(es)) Actual Weight : 142.9 kg(Converted to: 315 lb 1 oz) Weight Source : Standing scale Dosing Weight Clinic : 142.9 kg Clinic BSA : 2.66 Body Mass Index : 45.1 kg/m2 GISSELLE BATISTA - 02/13/2014 16:20 [facility] General Info Information Given By : Patient Preferred Communication Mode : Verbal Languages : Maldivian Is Patient Female and 13-50 no hysterectomy : No GISSELLE BATISTA 02/13/2014 16:20 MANA[facility] Subjective Pain Symptoms : Yes GISSELLE BATISTA 02/13/2014 16:20 MANA[facility] Pain Pain Assessment Grid Pain 1 Location : Lower leg Laterality : Right Intensity : 7 Quality : Sharp, Throbbing Alleviating Factors : Medication GISSELLE BATISTA - 02/13/2014 16:20 MANAGER [facility]OUNT[facility] (Comment: off and on between 7 and 8 [GISSELLE BATISTA 02/13/2014 16:20 MANA[facility]OUNTAIN] ) Dependent Habits Tobacco Use/Currently Using : No Tobacco Use/Last 12 months : No Exposure to Tobacco Smoke : Other: non smoker Smoking Status : Never smoker GISSELLE BATISTA - 02/13/2014 16:20 MANA[facility] ID Screen Drug Resistant Organism : No Travel Within Last 21 Days : No GISSELLE BATISTA 02/13/2014 16:20 MANA[facility] POWER[facility] Document Id: [id number] MANAGER [facility]OUNT[facility]!40 [facility] documented in this encounter Plan of Treatment Not on filedocumented as of this encounter Visit Diagnoses Not on filedocumented in this encounter
--- OUTSIDE RECORDS SUMMARY | 2021-12-11 07:59 | XMS_ITS | Encounter Summary ---
:1960 Author Organization [facility] Address [address] [place] [address] Care Team Providers Name Role Phone Unavailable Primary Care Provider Unavailable Encounter Details Date Type Department Care Team Description 01/28/2014 Hospital Encounter HX [facility] FB INTERNMED Galen Sousa V., PEDIATRIC CLINICAL DIETICIAN, C.N.P. [address] [facility] [place] [address] (Wo rk) Social History Tobacco Use Types Packs/Day Years Used Date Smoking Tobacco: Never Assessed Sex Assigned at Date Recorded Not on file documented as of this encounter Last Filed Vital Signs Vital Sign Reading Time Taken Comments Blood Pressure 140/96 01/28/2014 8:48 AM CDT Pulse - - Temperature - - Respiratory Rate - - Oxygen Saturation - - Inhaled Oxygen Concentration - - Weight 143 kg (315 lb 4.1 oz) 01/28/2014 8:48 AM CDT Height 178 cm (5' 10.08) 01/28/2014 8:48 AM CDT Body Mass Index 45.13 01/28/2014 8:48 AM CDT documented in this encounter Progress Notes Conversion, Historical Provider Ser - 01/28/2014 8:50 AM CDT Wound Care Wound Care Entered On: 01/28/2014 8:51 CDT Performed On: 01/28/2014 8:50 CDT by DAGO DARDEN LPN Integumentary Pain Symptoms : Yes DAGO DARDEN LPN - 01/28/2014 8:50 CDT Pain Pain Assessment Grid Pain 1 Location : Ankle Laterality : Bilateral Quality : Burning, Sharp DAGO DARDEN VENEER STAPLER - 01/28/2014 8:50 CDT Source: [employer] Document Id: [id number] CDT!9 Alexander Sousa APRN, C.NJordan - 01/28/2014 8:39 AM CDT [id number] HISTORY OF PRESENT ILLNESS Tank returns for ongoing wound care of bilateral lower extremity venous stasis ulcers complicated by history of delayed healing and infection. He states that his allergic reaction in the form of itching and periorbital edema has improved greatly. He continues to complain of severe pain in the wound in his right lower extremity. He is tolerating the Levaquin well. He is taking the prednisone. He has no pain in the left lower extremity. He denies any complaints with any review of systems. PHYSICAL EXAMINATION SKIN: Right lower extremity inner malleolar area wound measures 4.5 x 3. The wound bed has some granulation. There is epithelization seen. There is some slough. No tunneling, undermining, odor. Drainage is scant serous. There is less edema in the leg. He has very developed calf muscles bilaterally. Erythema is less. There are venous stasis and hemosiderin changes. Left lower extremity wound measures 5.5 x 2.7. There is new epithelization seen within the wound bed. No tunneling, undermining, odor. Drainage is scant serous. No edema, no erythema. IMPRESSION/REPORT/PLAN Bilateral lower extremity venous stasis ulcers complicated by history of delayed healing and infection. Procedural pause conducted to verify: Correct patient, identity, procedure to be performed and as applicable, correct side and site, correct patient position and availability of special requirements. Wounds were cleansed with saline PCMX rinsed well. Selective debridement was done using Celleration ultrasonic MIST therapy for 3 minutes. Wounds were rinsed with saline and dried. Feet were soaked in antibacterial soapy water for 3 minutes, rinsed well and dried. Medihoney was applied to the wound bed, covered with ABD. Kerlix was used to hold the dressing in place. He does wear his compression stockings. He is to be seen at the [facility] on TuesdayFebruary 01. I did request that he asked for a new prescription for compression stockings, as he would be able to buy them from the [facility]. He will return on February 08 for ongoing wound care here. He needs to see what his schedule is to see if he can come in more frequently but as of today he knows he has February 08 off. He was given a prescription for Strawn 5/325, two tabs every 6 hours as needed for pain. I told him not to take it when he is at work or driving but to only take it at night or when he would be home. Hehas not taken tramadol. Silver will be listed as an allergy, as he thinks that the allergic reactionhe has is from the silver based products. 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 Alexander Sousa CNP/yi Electronically Signed By: ALEXANDER SOUSA CNP On: 01/29/2014 08:04 AM Source: [facility] MHSDOLBEYNONRADSYS Document Id: [id number] documented in this encounter Miscellaneous Notes Telephone Encounter - Conversion, Historical Provider Ser - 02/06/2014 2:22 PM CST *Phone Message From: MARLIN MALDONADO ( Gilberto Strategic Partner Development Manager) To: Wound Clinic Nurse; Sent: 02/06/2014 14:22:36 FIBERLINE SUPERVISOR Subject: *Phone Message Caller is: ( x ) Patient ( ) Mother ( ) Father ( ) Spouse ( ) Daughter ( ) Son ( ) Pharmacy ( ) Other: Physician: Patient MRN #: Reason for Call: Please call patient regarding open sores on his ankles [phone] Message: Advice/Action: Source used: ( ) Verbalizes [...] back cell phone number ( ) Source: [facility] POWERCHART Document Id: [id number] Miscellaneous - Alexander Sousa APRN, C.N.P. - 01/28/2014 8:49 AM CDT Ambulatory Patient Summary [address] [id number] Visit Information Name: ARISTIDESJOSE GUADALUPE NATHAN [facility] Number: [id number] Current Date: 01/28/2014 08:49:54 Physicians Attending Provider: ALEXANDER SOUSA CNP Primary [...] tablet) 1 Tablet(s), Oral, once a day predniSONE (predniSONE 20 mg oral tablet) 2 Tablet(s), Oral, once a day x 7 day(s) Stop Taking the Following Medications: Medication list as of 01-28-14 08:49 Attention: If you have any medications at [...] Electronically Signed By: ALEXANDER SOUSA CNP Signed On:28-JAN-2014 08:49:43 Your Allergies & Intolerances Substance Reaction Symptoms [...] appointment detail needed. Your Goals/Additional instructions: Source: [facility] POWERCHART Document Id: [id number] Miscellaneous - Alexander Sousa APRN, C.N.P. - 01/28/2014 8:49 AM CDT Ambulatory Discharge Medication List [address] [id number] Visit Information Name: JOSE GUADALUPE RIDLEY [facility] Number: [id number] Visit Date: 01/28/2014 08:49:53 Attending Provider: ALEXANDER SOUSA CNP Primary Care [...] tablet) 1 Tablet(s), Oral, once a day predniSONE (predniSONE 20 mg oral tablet) 2 Tablet(s), Oral, once a day x 7 day(s) Stop Taking the Following Medications: Medication list as of 01-28-14 08:49 Attention: If you have any medications at [...] Electronically Signed By: ALEXANDER SOUSA CNP Signed On:28-JAN-2014 08:49:43 Additional Information: Source: [employer] Document Id: [id number] Miscellaneous - Conversion, Historical Provider Ser - 01/28/2014 8:48 AM CDT Adult Environmental Resource Specialist Intake/History Adult Environmental Resource Specialist Intake/History Entered On: 01/28/2014 8:50 CDT Performed On: 01/28/2014 8:48 CDT by DAGO DARDEN LPN Intake Temperature Core : 36.1 DegC(Converted to: 97.0 DegF) (LOW) Systolic Blood Pressure : 140 mmHg Diastolic Blood Pressure : 96 mmHg (>HHI) NIBP Mean : 111 mmHg BP Location : Right upper extremity Height : 178 cm(Converted to: 5 ft 10 inch(es), 70 inch(es)) Actual Weight : 143 kg(Converted to: 315 lb 4 oz) Dosing Weight Clinic : 143 kg Clinic BSA : 2.66 Body Mass Index : 45.13 kg/m2 DAGO DARDEN LPN - 01/28/2014 8:48 CDT General Info Information Given By : Patient Languages : Congolese Is Patient Female and 13-50 no hysterectomy : No DAGO DARDEN LPN - 01/28/2014 8:48 CDT Subjective Pain Symptoms : Yes DAGO DARDEN LPN - 01/28/2014 8:48 CDT Pain Pain Assessment Grid Pain 1 Location : Ankle Laterality : Bilateral DAGO DARDEN LPN - 01/28/2014 8:48 CDT Dependent Habits Tobacco Use/Currently Using : No Exposure to Tobacco Smoke : Other: non smoker Smoking Status : Never smoker DAGO DARDEN LPN - 01/28/2014 8:48 CDT Source: [facility] POWERCHART Document Id: [id number] CDT!27 documented in this encounter Plan of Treatment Not on filedocumented as of this encounter Visit Diagnoses Not on filedocumented in this encounter
--- OUTSIDE RECORDS SUMMARY | 2021-12-11 07:59 | XMS_ITS | Encounter Summary ---
:1960 Author Organization [facility] Address [address] [place] [address] Care Team Providers Name Role Phone Unavailable Primary Care Provider Unavailable Encounter Details Date Type Department Care Team Description 01/11/2014 Hospital Encounter HX [facility] FBHB INTERNMED Galen Sousa V., FLATWORK CATCHER, C.N.P. [address] [place] [address] (Wo rk) Social History Tobacco Use Types Packs/Day Years Used Date Smoking Tobacco: Never Assessed Sex Assigned at Date Recorded Not on file documented as of this encounter Last Filed Vital Signs Vital Sign Reading Time Taken Comments Blood Pressure 152/92 01/11/2014 11:25 AM CDT Pulse 72 01/11/2014 11:25 AM CDT Temperature - - Respiratory Rate 18 01/11/2014 11:25 AM CDT Oxygen Saturation - - Inhaled Oxygen Concentration - - Weight - - Height 178 cm (5' 10.08) 01/11/2014 11:25 AM CDT Body Mass Index - - documented in this encounter Progress Notes Gisselle Batista L.P.N. - 01/11/2014 11:29 AM CDT Wound Care Wound Care Entered On: 01/11/2014 11:29 CDT Performed On: 01/11/2014 11:29 CDT by GISSELLE BATISTA Integumentary Pain Symptoms : Yes GISSELLE BATISTA - 01/11/2014 11:29 CDT Pain Pain Assessment Grid Pain 1 Location : Lower leg GISSELLE BATISTA - 01/11/2014 11:29 CDT [facility] P[facility] Document Id: [id number] CDT!7 Alexander Sousa APRN, C.N.P. - 01/11/2014 10:42 AM CDT [id number] HISTORY OF PRESENT ILLNESS Tank returns for ongoing wound care of bilateral medial lower extremity venous stasis ulcers. Tank haspain in the right wound bed; none in the left. He has no complaints with any other review of systems. PHYSICAL EXAMINATION SKIN: Right lower extremity shows Tanmay appearance. There are venous stasis and hemosiderin changesin the periwound skin. The wound bed itself is sloughed with granulating buds poking through. No tunneling, undermining, odor. Drainage is scant serous. Left lower extremity shows slight Tanmay appearance with venous stasis and hemosiderin changes in the periwound skin. The wound bed itself shows new epithelization on the proximal edge approximately 11 o'clock, otherwise the wound bed is slough with granulating buds poking through. IMPRESSION/REPORT/PLAN Bilateral lower extremity venous stasis ulcers complicated by history of delayed healing. Wounds arecleansed with saline PCMX rinsed well. Procedural pause conducted to verify: Correct patient, identity, procedure to be performed and as applicable, correct side and site, correct patient position and availability of special requirements. Selected debridement was done using Celleration ultrasonic MIST therapy for 3 minutes. Wounds were rinsed with saline and dried. Due to the pain in the right lower extremity wound, lidocaine jelly 2% was applied to the wound bed until anesthesia was obtained. Aquacel Ag was applied, cut to the wound bed only bilaterally. A small ABD was applied to hold the Aquacel Ag in place. Unna boots were appliedbilaterally. Color, warmth, movement, sensation was good after compression. I did ask that he leave the Unna boots in place until Tuesday when he returns. He has had a problem in the past with Unna boots causing itching. I told him if they start to itch or become tight or uncomfortable, he can remove them. If he does remove them, he is to change his dressing using Aquacel Ag, ABD, and Kerlix to hold in place. I did give him a set of Tubigrips to put on his lower extremities with cotton stockinette to cover. He will elevate his legs higher than the level of his heart 10 to 15minutes 2 times a day. He will return on January 14 for ongoing wound care. Alexander Sousa CNP/yi Electronically Signed By: ALEXANDER SOUSA CNP On: 01/14/2014 08:11 AM Source: [facility] MHSDOLBEYNONRADSYS Document Id: [id number] documented in this encounter Miscellaneous Notes Miscellaneous - Gisselle Batista L.PKristineN. - 01/11/2014 11:25 AM CDT Adult Machine Welder Intake/History Adult Machine Welder Intake/History Entered On: 01/11/2014 11:29 CDT Performed On: 01/11/2014 11:25 CDT by GISSELLE BATISTA Intake Chief Complaint : Wound care both lower legs Temperature Core : 36.4 DegC(Converted to: 97.5 DegF) (LOW) Peripheral Pulse Rate : 72 /min Respiratory Rate : 18 /min Systolic Blood Pressure : 152 mmHg (HI) Diastolic Blood Pressure : 92 mmHg (>HHI) NIBP Mean : 112 mmHg BP Location : Right upper extremity Blood Pressure Cuff Size : Large Height : 178 cm(Converted to: 5 ft 10 inch(es), 70 inch(es)) GISSELLE BATISTA - 01/11/2014 11:25 CDT General Info Information Given By : Patient Preferred Communication Mode : Verbal Languages : Kenyan Is Patient Female and 13-50 no hysterectomy : No GISSELLE BATISTA - 01/11/2014 11:25 CDT Subjective Pain Symptoms : Yes GISSELLE BATISTA - 01/11/2014 11:25 CDT Pain Pain Assessment Grid Pain 1 Location : Lower leg Laterality : Right Intensity : 7 Quality : Sharp Alleviating Factors : Medication GISSELLE BATISTA - 01/11/2014 11:25 CDT (Comment: in the wound site [LESTER GISSELLE - 01/11/2014 11:25 CDT] ) Dependent Habits Tobacco Use/Currently Using : No Tobacco Use/Last 12 months : No Exposure to Tobacco Smoke : Other: non smoker Smoking Status : Never smoker GISSELLE BATISTA - 01/11/2014 11:25 CDT Source: [email or web address] Document Id: [id number] CDT!32 Miscellaneous - Alexander Sousa APRN, C.N.P. - 01/11/2014 10:50 AM CDT Ambulatory Patient Summary [address] [id number] Visit Information Name: JOSHUA JOSE GUADALUPE ADAMS [facility] Number: [id number] Current Date: 01/11/2014 10:50:44 Physicians Attending Provider: ALEXANDER SOUSA CNP Primary [...] the Following Medications: Medication list as of 01-11-14 10:50 Attention: If you have any medications [...] Electronically Signed By: ALEXANDER SOUSA CNP Signed On:11-JAN-2014 10:50:34 Your Allergies & Intolerances Substance Reaction Symptoms [...] Your Upcoming Appointments Date Time Location Provider 01/15/2014 08:20 [facility] 02/05/2014 08:10 [facility] Bennie NOBLES, Curtis Rothman Attention: Contact your local Clinic if further appointment detail needed. Your Goals/Additional instructions: [facility] Document Id: [id number] Miscellaneous - Alexander Sousa APRN, C.N.P. - 01/11/2014 10:50 AM CDT Ambulatory Discharge Medication List [address] [id number] Visit Information Name: JOSE GUADALUPE RIDLEY [facility] Number: [id number] Visit Date: 01/11/2014 10:50:43 Attending Provider: ALEXANDER SOUSA CNP Primary Care [...] the Following Medications: Medication list as of 01-11-14 10:50 Attention: If you have any medications [...] emergency. Electronically Signed By: ALEXANDER SOUSA V MANAGER OF CASE MANAGEMENT Signed On:11-JAN-2014 10:50:34 Additional Information: Source: [facility] POWERCHART Document Id: [id number] documented in this encounter Plan of Treatment Not on filedocumented as of this encounter Visit Diagnoses Not on filedocumented in this encounter
--- OUTSIDE RECORDS SUMMARY | 2021-12-11 07:59 | XMS_ITS | Encounter Summary ---
:1960 Author Organization [facility] Address [address] [place] [address] Care Team Providers Name Role Phone Unavailable Primary Care Provider Unavailable Encounter Details Date Type Department Care Team Description 01/08/2014 Hospital Encounter HX [facility] INTERNMED Kitty Vegas M.D. [phone] (Wo rk) Social History Tobacco Use Types Packs/Day Years Used Date Smoking Tobacco: Never Assessed Sex Assigned at Date Recorded Not on file documented as of this encounter Last Filed Vital Signs Vital Sign Reading Time Taken Comments Blood Pressure 170/100 01/08/2014 9:06 AM CDT Pulse 60 01/08/2014 9:06 AM CDT Temperature - - Respiratory Rate 20 01/08/2014 9:06 AM CDT Oxygen Saturation - - Inhaled Oxygen Concentration - - Weight 150 kg (331 lb 5.6 oz) 01/08/2014 9:06 AM CDT Height 178 cm (5' 10.08) 01/08/2014 9:06 AM CDT Body Mass Index 47.44 01/08/2014 9:06 AM CDT documented in this encounter H&P Notes Curtis Vegas M.D. - 01/08/2014 8:49 AM CDT [id number] CHIEF COMPLAINT/REASON FOR VISIT A 53-year-old gentleman here to establish care. He has struggled with obesity, peripheral edema and hypertension. He has peripheral vascular insufficiency. He was evaluated 12 years ago at [facility] and is going to be evaluated again later this month. He has struggled with chronic ulcerations on his legs. He does have uncontrolled hypertension, as well as the obesity. He does note that he snores, butdoes not stop breathing. He reports having been tested for diabetes in the past. His father had Parkinson's, but no family history of hypertension, diabetes or hyperlipidemia. MEDICATIONS Keflex 500 mg 4 times daily for 10 days Tramadol 50 mg every 6 hours as needed for pain. ALLERGIES No known drug allergies. SYSTEMS REVIEW Does not drink or smoke. No fevers, chills, cough, shortness of breath, chest pain, abdominal pain, diarrhea, or dysuria. All other review of systems are negative. PAST MEDICAL/SURGICAL HISTORY 1. Hypertension. 2. Venous insufficiency. 3. Venous stasis ulcers. 4. Morbid obesity. SOCIAL HISTORY . Works at [employer]. Lives in [place]. FAMILY HISTORY Notable for father with Parkinson's. VITAL SIGNS Blood pressure today is quite elevated at 170/100, pulse is 60, weight is 150.3 kg. PHYSICAL EXAMINATION GENERAL: Middle-aged, morbidly obese gentleman, no apparent distress. EYES: Pupils are equal. ENT: TMs pearly white. Nose, mouth without lesions. NECK: Supple. Trachea is midline. Thyroid is not palpable. There is no cervical or supraclavicular adenopathy. LUNGS: Clear to auscultation. No crackles or wheezes. CARDIAC: Regular rate and rhythm. Normal S1, S2. No S3, S4. No murmurs. ABDOMEN: Soft with active bowel sounds. EXTREMITIES: With trace ankle edema. His sores a wrapped. IMPRESSION/REPORT/PLAN 1. Uncontrolled hypertension. We do need to get that under better control. Given his venous insufficiency, would prefer not to use a calcium channel davin or beta-davin, but would prefer to use a diuretic or angiotensin-converting enzyme inhibitor, but do need to check his kidney function first. We will also check a urine looking for protein. We will get laboratories today and determine the most appropriate medication afterwards. 2. Morbid obesity. He is certainly a candidate for diabetes, hypertension, hyperlipidemia, heart disease and sleep apnea. He is going to be evaluated for his venous insufficiency at [facility] later this month. We will need to see what testing is obtained. He will follow up in 1 month or earlier if needed. He will also come in a week for a blood pressure check after we have started him on a medication. Curtis Vegas M.D./yi Electronically Signed By: CURTIS VEGAS MD On: 01/08/2014 04:42 PM Source: [facility] MHSDOLBEYNONRADSYS Document Id: [id number] documented in this encounter Miscellaneous Notes Telephone Encounter - Conversion, Historical Provider Ser - 01/11/2014 3:08 PM CDT *Phone Message Document Contains Addenda Addendum by LEEROY BUTT on 14 January 2014 09:21:08 CDT pt called From: GUSTAVO YA (AVERY Vegas Nurse) To: AVERY Vegas Nurse; Sent: 01/11/2014 15:08:40 CDT Subject: *Phone Message Caller is: ( ) Patient ( ) Mother ( ) Father ( ) Spouse ( ) Daughter ( ) Son ( ) Pharmacy ( ) Other: Physician: Patient MRN #: Reason for Call: Pt returning call to nurse, please call back [phone] Message: Advice/Action: Source used: ( ) Verbalizes [...] back cell phone number ( ) Source: [facility] POWERCHART Document Id: [id number] Miscellaneous - Curtis Vegas M.D. - 01/08/2014 4:46 PM CDT Results Notification Document Contains Addenda Addendum by LEEROY BUTT on 11 January 2014 16:36:29 CDT pt notified Addendum by LEEROY BUTT on 11 January 2014 10:43:41 CDT left message Addendum by RONEY DANIELS on 09 January 2014 13:20:35 CDT left message to call back. From: CURTIS VEGAS MD Sent: 01/08/2014 16:46:43 CDT ! Show up: 01/08/2014 16:46:43 CDT Subject: Results Notification Actions: Notify patient of results Reminder Comments: meets criteria for diabetes now. rec visit with pt ed for new diagnosis. Results: Date Result Name Ind Value Ref Range 01/08/2014 14:53 Hgb A1c (H) 6.80 % A1C ( - <=5.60) Source: [facility] POWERCHART Document Id: [id number] Miscellaneous - Curtis Vegas M.D. - 01/08/2014 3:48 PM CDT Results Notification Document Contains Addenda Addendum by LEEROY BUTT on 11 January 2014 16:36:40 CDT pt notified Addendum by LEEROY BUTT on 11 January 2014 10:43:52 CDT left message Addendum by LEEROY BUTT on 08 January 2014 15:58:08 CDT more labs pending From: CURTIS VEGAS MD Sent: 01/08/2014 15:48:55 CDT ! Show up: 01/08/2014 15:48:55 CDT Subject: Results Notification Actions: Notify patient of results Reminder Comments: glucose very high, hgba1c added to labs. Results: Date Result Name Ind Value Ref Range 01/08/2014 10:16 Sodium Lvl 140 mmol/L (135 - 145) 01/08/2014 10:16 Potassium Lvl 4.6 mmol/L (3.6 - 5.2) 01/08/2014 10:16 Chloride 101 mmol/L (98 - 107) 01/08/2014 10:16 CO2 (H) 30 mmol/L (22 - 29) 01/08/2014 10:16 Alkaline Phosphatase 103 unit/L (45 - 115) 01/08/2014 10:16 Glucose Fasting (H) 168 mg/dL (70 - 99) 01/08/2014 10:16 Creatinine 0.8 mg/dL (0.8 - 1.3) 01/08/2014 10:16 EGFR (MDRD) >60 mL/min/1.73m2 (>=60 - ) 01/08/2014 10:16 EGFR (MDRD) >60 mL/min/1.73m2 (>=60 - ) 01/08/2014 10:16 BUN 14 mg/dL (8 - 24) 01/08/2014 10:16 Calcium Lvl 9.4 mg/dL (8.6 - 10.3) 01/08/2014 10:16 Protein Total 6.7 G/DL (6.3 - 7.9) 01/08/2014 10:16 Albumin Lvl 3.9 G/DL (3.2 - 5.2) 01/08/2014 10:16 AST 43 unit/L (8 - 48) 01/08/2014 10:16 ALT 43 unit/L (7 - 55) 01/08/2014 10:16 Bili Total 0.6 mg/dL (0.1 - 1.0) 01/08/2014 10:16 Cholesterol 178 mg/dL ( - <=200) 01/08/2014 10:16 Trig (H) 201 mg/dL ( - <=150) 01/08/2014 10:16 HDL (L) 37 mg/dL (40 - 60) 01/08/2014 10:16 LDL Calculated (H) 101 mg/dL (0 - 100) 01/08/2014 10:16 Chol/HDL Ratio (H) 4.81 (2.20 - 4.40) 01/08/2014 10:16 LDL/HDL 3 01/08/2014 10:16 TSH 2.27 mIU/L (0.30 - 5.00) Source: [facility] POWERCHART Document Id: [id number] Miscellaneous - Curtis Vegas M.D. - 01/08/2014 12:58 PM CDT Results Notification Document Contains Addenda Addendum by LEEROY BUTT on 11 January 2014 16:36:50 CDT pt notified Addendum by LEEROY BUTT on 11 January 2014 10:44:06 CDT left message Addendum by LEEROY BUTT on 08 January 2014 13:18:04 CDT more labs pending From: CURTIS VEGAS MD Sent: 01/08/2014 12:58:50 CDT ! Show up: 01/08/2014 12:58:50 CDT Subject: Results Notification Actions: Notify patient of results Reminder Comments: OK, other labs pending Results: Date Result Name Ind Value Ref Range 01/08/2014 10:21 UA Color STRAW 01/08/2014 10:21 UA Clarity Clear 01/08/2014 10:21 UA Spec Grav 1.020 01/08/2014 10:21 UA pH 6.5 01/08/2014 10:21 UA Protein Negative 01/08/2014 10:21 UA Glucose Negative 01/08/2014 10:21 UA Ketones Negative 01/08/2014 10:21 UA Bili Negative 01/08/2014 10:21 UA Urobilinogen 0.2 mg/dL 01/08/2014 10:21 UA Blood Negative 01/08/2014 10:21 UA Nitrite Negative 01/08/2014 10:21 UA Leuk Est Negative 01/08/2014 10:21 UR WBC None Seen /HPF 01/08/2014 10:21 UR RBC None Seen /HPF 01/08/2014 10:21 UR Squamous Epi Cells Occ-3 /HPF 01/08/2014 10:16 Hgb 14.5 g/dL (13.5 - 17.5) 01/08/2014 10:16 Hct 42.4 % (38.8 - 50.0) 01/08/2014 10:16 WBC 5.1 x10(9)/L (3.5 - 10.5) 01/08/2014 10:16 RBC 4.79 x10(12)/L (4.32 - 5.72) 01/08/2014 10:16 MCV 88.5 fL (81.0 - 95.0) 01/08/2014 10:16 RDW 12.7 % (11.8 - 15.6) 01/08/2014 10:16 Platelet 184 x10(9)/L (150 - 450) 01/08/2014 10:16 Neutro Absolute 3.41 10(9)/L (1.70 - 7.00) 01/08/2014 10:16 Lymph Absolute (L) 0.70 x10(9)/L (0.90 - 2.90) 01/08/2014 10:16 [place] Absolute 0.64 x10(9)/L (0.30 - 0.90) 01/08/2014 10:16 Eos Absolute 0.35 x10(9)/L (0.05 - 0.50) 01/08/2014 10:16 Baso Absolute 0.04 x10(9)/L (0.00 - 0.30) Source: [facility] POWERCHART Document Id: [id number] Miscellaneous - Curtis Vegas M.D. - 01/08/2014 9:43 AM CDT Ambulatory Patient Summary [facility] [address] [place] [id number] Visit Information Name: ARISTIDESNATIKG JOSE GUADALUPE ADAMS [facility] Number: [id number] Current Date: 01/08/2014 09:43:15 Physicians Attending Provider: CURTIS VEGAS MD Primary Care Provider: PCP, UNASSIGNED - JOSE GUADALUPE RIDLEY BRYAN has been given [...] for Pain Stop Taking the Following Medications: albuterol (albuterol 90 mcg/inh inhalation aerosol) hydrocodone-acetaminophen (Vicodin 5 mg-500 mg oral tablet) triamcinolone topical (triamcinolone topical 0.1% ointment) Medication list as of 01-08-14 09:43 Attention: If you have any medications at home that are not on this list, DO NOT take them until youcontact your provider for clarification. Give a copy of your medication list to your primary care provider. Update your medication list any time medications or doses are changed and carry your medication list at all times in case of emergency. Electronically Signed By: CURTIS VEGAS MD Signed On:08-JAN-2014 09:43:00 Your Allergies & Intolerances Substance Reaction Symptoms [...] Your Upcoming Appointments Date Time Location Provider 01/09/2014 15:30 [facility] InternLory Currie CNP, V 01/11/2014 11:30 [facility] Lory Nguyen CNP, V Attention: Contact your local Clinic if further appointment detail needed. Your Goals/Additional instructions: Source: [facility] POWERCHART Document Id: [id number] Miscellaneous - Curtis Vegas M.D. - 01/08/2014 9:43 AM CDT Ambulatory Discharge Medication List [address] [id number] Visit Information Name: JOSE GUADALUPE RIDLEY [facility] Number: [id number] Visit Date: 01/08/2014 09:43:13 Attending Provider: CURTIS VEGAS MD Primary Care Provider: PCP, UNASSIGNED - OW [...] for Pain Stop Taking the Following Medications: albuterol (albuterol 90 mcg/inh inhalation aerosol) hydrocodone-acetaminophen (Vicodin 5 mg-500 mg oral tablet) triamcinolone topical (triamcinolone topical 0.1% ointment) Medication list as of 01-08-14 09:43 Attention: If you have any medications at home that are not on this list, DO NOT take them until youcontact your provider for clarification. Give a copy of your medication list to your primary care provider. Update your medication list any time medications or doses are changed and carry your medication list at all times in case of emergency. Electronically Signed By: CURTIS VEGAS MD Signed On:08-JAN-2014 09:43:00 Additional Information: Yes - . Source: [facility] POWERCHART Document Id: [id number] Miscellaneous - Leeroy Butt, L.P.N. 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 Entered On: 01/08/2014 9:09 CDT Performed On: 01/08/2014 9:06 CDT by LEEROY BUTT Intake Chief Complaint : new pt, physical Temperature Core : 36.6 DegC(Converted to: 97.9 DegF) Peripheral Pulse Rate : 60 /min Respiratory Rate : 20 /min Heart Rhythm : Regular Systolic Blood Pressure : 170 mmHg (>HHI) Diastolic Blood Pressure : 100 mmHg (>HHI) NIBP Mean : 123 mmHg BP Location : Right upper extremity Blood Pressure Cuff Size : Large Height : 178 cm(Converted to: 5 ft 10 inch(es), 70 inch(es)) Actual Weight : 150.3 kg(Converted to: 331 lb 6 oz) Dosing Weight Clinic : 150.3 kg Clinic BSA : 2.73 Body Mass Index : 47.44 kg/m2 LEEROY BUTT - 01/08/2014 9:06 CDT General Info Languages : Icelandic Is Patient Female and 13-50 no hysterectomy : No LEEROY BUTT - 01/08/2014 9:06 CDT Subjective Pain Symptoms : Yes LEEROY BUTT 01/08/2014 9:06 CDT Pain Pain Assessment Grid Pain 1 Location : Lower leg (Comment: right [LEEROY BUTT - 01/08/2014 9:06 CDT] ) LEEROY BUTT - 01/08/2014 9:06 CDT Dependent Habits Tobacco Use/Currently Using : No Exposure to Tobacco Smoke : Other: non smoker Smoking Status : Never smoker LEEROY BUTT 01/08/2014 9:06 CDT Source: Scan Document Id: [id number]!30 documented in this encounter Plan of Treatment Not on filedocumented as of this encounter Procedures Procedure Name Priority Date/Time Associated Comments Diagnosis HEMOGLOBIN A1C, B Routine 01/08/2014 2:53 PM Resu lts for this CDT procedure are i n the results section. URINALYSIS, MIDSTREAM, Routine 01/08/2014 10:21 R esults for this WITH CULTURE IF AM CDT procedure ar e in INDICATED the results section. LIPID PANEL, S Routine 01/08/2014 10:16 Results f or this AM CDT procedure are i n the results section. AUTOMATED Routine 01/08/2014 10:16 Results for this DIFFERENTIAL, B AM CDT procedure ar e in the results section. CBC WITH DIFFERENTIAL, Routine 01/08/2014 10:16 R esults for this B AM CDT procedure are i n the results section. THYROID-STIMULATING Routine 01/08/2014 10:16 Resu lts for this HORMONE-SENSITIVE AM CDT procedure are in (S-TSH) the results section. COMPREHENSIVE Routine 01/08/2014 10:16 Results fo r this METABOLIC PANEL, S/P AM CDT procedu re are in the results section. documented in this encounter Results (ABNORMAL) Hemoglobin A1c (01/08/2014 2:53 PM CDT) [facility] Hemoglobin A1c, 6.80 (H) <=5.60 A1C POWERCHART B Specimen (Source) Anatomical Collection Method Collection Time Re ceived Time Location / / Volume Laterality Blood 01/08/2014 2:53 PM CDT Curtis Vegas M.D. LAB BLOOD ADD-ON Performing Organization Address City/[facility] Code Phon e Number POWERCHART Urinalysis, Midstream, with culture if indicated (01/08/2014 10:21 AM CDT) [facility] [employer] Method Time Signature Source Clean Void POWERCHART Urine HXUr Color STRAW POWERCHART Clarity Clear POWERCHART Glucose Negative POWERCHART HXBILIRUBIN Negative POWERCHART Ketones, QL(U) Negative POWERCHART Specific 1.020 POWERCHART [place], POCT, U pH, POCT, Urine 6.5 POWERCHART Protein, Ur, Dip Negative POWERCHART Urobilinogen 0.2 MGDL POWERCHART HXNITRITE Negative POWERCHART HXBLOOD Negative POWERCHART Leukocyte Negative POWERCHART Esterase HXUR WBC. None Seen HPF POWERCHART HXUR RBC. None Seen HPF POWERCHART Squamous Occ-3 HPF POWERCHART Epithelial Specimen (Source) Anatomical Collection Method Collection Time Re ceived Time Location / / Volume Laterality Urine 01/08/2014 10:21 AM CDT Curtis Vegas M.D. LAB URINE ORDERABLES Performing Organization Address City/[facility] Code Phon e Number POWERCHART (ABNORMAL) Automated Differential (01/08/2014 10:16 AM CDT) [facility] [employer] Method Time Signature Absolute 3.41 1.70 - POWERCHART Neutrophils 7.00 109L Lymphocytes 0.70 (L) 0.90 - POWERCHART 2.90 X109L Monocytes 0.64 0.30 - POWERCHART 0.90 X109L Eosinophils 0.35 0.05 - POWERCHART 0.50 X109L Absolute 0.04 0.00 - POWERCHART Basophil 0.30 X109L Specimen Anatomical Collection Method Collection Time Receive d Time (Source) Location / / Volume Laterality Blood 01/08/2014 10:16 01/08/2014 AM CDT 10:16 AM CDT Curtis Vegas M.D. LAB BLOOD ADD-ON Performing Organization Address City/State/ZIP Code Phon e Number POWERCHART CBC with Differential (01/08/2014 10:16 AM CDT) P athologist Signature Leukocytes 5.1 3.5 - 10.5 POWERCHART X109L Erythrocytes 4.79 4.32 - 5.72 POWERCHART [id number] Hemoglobin 14.5 13.5 - 17.5 POWERCHART GDL Hematocrit 42.4 38.8 - 50.0 POWERCHART MCV 88.5 81.0 - 95.0 POWERCHART [place] HX RDW 12.7 11.8 - 15.6 POWERCHART Platelet Count 184 150 - 450 POWERCHART X109L Specimen (Source) Anatomical Collection Method Collection Time Re ceived Time Location / / Volume Laterality Blood 01/08/2014 10:16 AM CDT Curtis Vegas M.D. LAB BLOOD ADD-ON Performing Organization Address [facility] Code Phon e Number POWERCHART Thyroid-Stimulating Hormone-Sensitive (s-TSH) (01/08/2014 10:16 AM CDT) P athologist Signature TSH 2.27 0.30 - 5.00 POWERCHART (Thyrotropin) MIUL Specimen (Source) Anatomical Collection Method Collection Time Re ceived Time Location / / Volume Laterality Blood 01/08/2014 10:16 AM CDT Curtis Vegas M.D. LAB BLOOD ADD-ON Performing Organization Address City/State/ZIP Code Phon e Number POWERCHART (ABNORMAL) Lipid Panel (01/08/2014 10:16 AM CDT) Patholo gist Method Time Signature Calculated LDL 101 (H) 0 - 100 POWERCHART MGDL Total 4.81 (H) 2.20 - POWERCHART Cholesterol/HDL 4.40 Ratio Cholesterol, 178 <=200 POWERCHART Total MGDL HX HDL 37 (L) 40 - 60 POWERCHART MGDL Triglycerides 201 (H) <=150 POWERCHART MGDL HXLDL/HDL 3 POWERCHART Specimen (Source) Anatomical Collection Method Collection Time Re ceived Time Location / / Volume Laterality Blood 01/08/2014 10:16 AM CDT Curtis Vegas M.D. LAB BLOOD ADD-ON Performing Organization Address City/State/ZIP Code Phon e Number POWERCHART (ABNORMAL) CMP (Comprehensive Metabolic Panel) (01/08/2014 10:16 AM CDT) [facility] gist Method Time Signature Alkaline 103 45 - 115 POWERCHART Phosphatase, S UNITL Alanine 43 7 - 55 POWERCHART Amniotransferase, LD UNITL Aspartate 43 8 - 48 POWERCHART Aminotransferase UNITL (AST), S Bilirubin, Total, S 0.6 0.1 - 1.0 POWERCHART MGDL BUN (Blood Urea 14 8 - 24 POWERCHART Nitrogen), S MGDL Chloride, S 101 98 - 107 POWERCHART MMOLL CO2 Total 30 (H) 22 - 29 POWERCHART MMOLL Creatinine 0.8 0.8 - 1.3 POWERCHART MGDL Glucose, Fasting, S 168 (H) 70 - 99 POWERCHART MGDL Total Protein, S 6.7 6.3 - 7.9 POWERCHART GDL Calcium, Total, S 9.4 8.6 - POWERCHART 10.3 MGDL Sodium, S 140 135 - 145 POWERCHART MMOLL Potassium, S 4.6 3.6 - 5.2 POWERCHART MMOLL Albumin, S 3.9 3.2 - 5.2 POWERCHART GDL HXeGFR (MDRD) >60 >=60 POWERCHART [id number] 2 eGFR Black/ >60 >=60 POWERCHART [place] [id number] Specimen (Source) Anatomical Collection Method Collection Time Re ceived Time Location / / Volume Laterality Blood 01/08/2014 10:16 AM CDT Curtis Vegas M.D. LAB BLOOD ADD-ON Performing Organization Address City/State/ZIP Code Phon e Number POWERCHART documented in this encounter Visit Diagnoses Not on filedocumented in this encounter
--- OUTSIDE RECORDS SUMMARY | 2021-12-11 07:59 | XMS_ITS | Encounter Summary ---
:1960 Author Organization [facility] Address [address] [place] [address] Care Team Providers Name Role Phone Unavailable Primary Care Provider Unavailable Encounter Details Date Type Department Care Team Description 01/02/2014 Hospital Encounter HX [facility] INTERNMED Galen Sousa V., KINDERGARTNERS HELPER, C.N.P. [address] [facility] [place] [address] (Wo rk) Social History Tobacco Use Types Packs/Day Years Used Date Smoking Tobacco: Never Assessed Sex Assigned at Date Recorded Not on file documented as of this encounter Last Filed Vital Signs Vital Sign Reading Time Taken Comments Blood Pressure 156/94 01/02/2014 1:57 PM CDT Pulse 64 01/02/2014 1:57 PM CDT Temperature - - Respiratory Rate - - Oxygen Saturation - - Inhaled Oxygen Concentration - - Weight 147 kg (323 lb 10.2 oz) 01/02/2014 1:57 PM CDT Height 176 cm (5' 9.29) 01/02/2014 1:50 PM CDT Body Mass Index 47.39 01/02/2014 1:50 PM CDT documented in this encounter Progress Notes Gisselle Batista, L.P.N. - 01/02/2014 2:01 PM CDT Wound Care Wound Care Entered On: 01/02/2014 14:02 CDT Performed On: 01/02/2014 14:01 CDT by GISSELLE BATISTA Integumentary Pain Symptoms : Yes GISSELLE BATISTA - 01/02/2014 14:01 CDT Pain Pain Assessment Grid Pain 1 Location : Lower leg GISSELLE BATISTA - 01/02/2014 14:01 CDT Source: [email or web address] Document Id: [id number] CDT!7 Alexander Sousa APRN, C.N.P. - 01/02/2014 1:49 PM CDT [id number] HISTORY OF PRESENT ILLNESS Tank is a 53-year-old male with a history of bilateral lower extremity venous stasis insufficiency, lymphedema and developed bilateral lower extremity venous stasis ulcers on the inner malleolar area. He is taking his Keflex and is feeling much better. He is complaining of a neuropathic-type burning pain lateral to the wound that transverses his leg and goes to his knee. This is a pain he has had before. He states the wound beds do not hurt. He is tolerating the Keflex well. He was initially ordered doxycycline and started vomiting after 2 doses so that was discontinued and now he is tolerating the Keflex. He has been off of work this week and is getting rest and feels better overall. PHYSICAL EXAMINATION SKIN: Right lower extremity shows Tanmay appearance. There are venous stasis and hemosiderin changesin the periwound skin. The wound bed is slough with granulation seen around the edges. No tunneling,undermining, odor. Drainage is scant serous. The left lower extremity has the same Tanmay appearance. There are venous stasis and hemosiderin changes in the periwound skin. There is edema in the foot. The wound bed is slough with granulation around the edges. No tunneling, undermining, odor, or drainage. IMPRESSION/REPORT/PLAN Bilateral lower extremity venous stasis ulcers complicated by history of delayed healing. Procedural pause conducted to verify: Correct patient identity, procedure to be performed and as applicable, correct side and site, correct patient position and availability of implants, special equipment or special requirements. Wounds were cleansed with saline, PCMX, rinsed well. Selective debridement was done using Celleration ultrasonic MIST therapy for 3 minutes. Wounds were rinsed with saline and dried. Silvercel was applied with 50/50 gentamicin and Bactroban with an ABD as a secondary dressing. This was held in place with a Kerlix wrap. He has his own compression stockings that he applies. He will continue daily dressing changes at home and return in 1 week for ongoing wound care as he goes back to work on Tuesday and is able to do his own dressing changes. I told him if anything changes in the wounds, if they start to deteriorate or if he has fevers, chills, increasing tenderness and drainage, he needs to contact me right away. He verbalized understanding and will do daily care and be seen back in a week. Alexander Sousa CNP/yi Electronically Signed By: ALEXANDER SOUSA CNP On: 01/02/2014 05:00 PM Source: [facility] MHSDOLBEYNONRADSYS Document Id: [id number] documented in this encounter Miscellaneous Notes Miscellaneous - Alexander Sousa APRN, C.N.P. - 01/02/2014 2:35 PM CDT Ambulatory Patient Summary [address] [id number] Visit Information Name: ARISTIDESJAC [facility]SE [facility] Number: [id number] Current Date: 01/02/2014 14:35:23 Physicians Attending Provider: ALEXANDER SOUSA CNP Primary [...] *albuterol (albuterol 90 mcg/inh inhalation aerosol) PRN doxycycline (doxycycline hyclate 100 mg oral tablet) 1 Tablet(s), Oral, two times a day x 10 day(s) *hydrocodone-acetaminophen (Vicodin 5 mg-500 mg oral tablet) See Instructions, as needed for Pain 1 to 2 tablets PO q6hr. / No more than 4,000mg acetaminophen/24hrs ibuprofen (Advil) as needed for Pain traMADol (traMADol 50 mg oral tablet) 1 Tablet(s), Oral, every 6 hours as needed for Pain *triamcinolone topical (triamcinolone topical 0.1% ointment) 1 florence, Topical, two times a day * You have let us know that you are not taking this medication as listed. Please talk with your primary care provider or the health care provider who prescribed the medication as soon as possible. Stop Taking the Following Medications: cephalexin (Keflex 500 mg oral capsule) Medication list as of 01-02-14 14:35 Attention: If you have any medications at [...] Electronically Signed By: ALEXANDER SOUSA CNP Signed On:02-JAN-2014 14:31:00 Your Allergies & Intolerances Substance Reaction Symptoms [...] Your Upcoming Appointments Date Time Location Provider 01/08/2014 09:10 [facility] InternCurtis Camejo MD 01/09/2014 15:30 [facility] Alexander Sousa CNP, V 01/11/2014 11:30 [facility] InternAlexander Currie CNP, V Attention: Contact your local Clinic if further appointment detail needed. Your Goals/Additional instructions: Source: [facility] POWERCHART Document Id: [id number] Miscellaneous - Alexander Sousa APRN, C.N.P. - 01/02/2014 2:35 PM CDT Ambulatory Discharge Medication List [address] [id number] Visit Information Name: JOSE [facility] Number: [id number] Visit Date: 01/02/2014 14:35:21 Attending Provider: ALEXANDER SOUSA CNP Primary Care [...] *albuterol (albuterol 90 mcg/inh inhalation aerosol) PRN doxycycline (doxycycline hyclate 100 mg oral tablet) 1 Tablet(s), Oral, two times a day x 10 day(s) *hydrocodone-acetaminophen (Vicodin 5 mg-500 mg oral tablet) See Instructions, as needed for Pain 1 to 2 tablets PO q6hr. / No more than 4,000mg acetaminophen/24hrs ibuprofen (Advil) as needed for Pain traMADol (traMADol 50 mg oral tablet) 1 Tablet(s), Oral, every 6 hours as needed for Pain *triamcinolone topical (triamcinolone topical 0.1% ointment) 1 florence, Topical, two times a day * You have let us know that you are not taking this medication as listed. Please talk with your primary care provider or the health care provider who prescribed the medication as soon as possible. Stop Taking the Following Medications: cephalexin (Keflex 500 mg oral capsule) Medication list as of 01-02-14 14:35 Attention: If you have any medications at [...] Electronically Signed By: ALEXANDER SOUSA CNP Signed On:02-JAN-2014 14:31:00 Additional Information: Source: [facility] [employer] Document Id: [id number] Miscellaneous - Gisselle Batista L.P.N. - 01/02/2014 1:57 PM CDT Adult Education Site Manager Intake/History Adult Education Site Manager Intake/History Entered On: 01/02/2014 14:01 CDT Performed On: 01/02/2014 13:57 CDT by GISSELLE BATISTA Intake Chief Complaint : Wound care both lower legs Temperature Core : 38.6 DegC(Converted to: 101.5 DegF) (HI) Peripheral Pulse Rate : 64 /min Systolic Blood Pressure : 156 mmHg (HI) Diastolic Blood Pressure : 94 mmHg (>HHI) NIBP Mean : 115 mmHg BP Location : Left upper extremity Blood Pressure Cuff Size : Large Actual Weight : 146.8 kg(Converted to: 323 lb 10 oz) Weight Source : Standing scale Dosing Weight Clinic : 146.8 kg GISSELLE BATISTA - 01/02/2014 13:57 CDT General Info Information Given By : Patient Preferred Communication Mode : Verbal Languages : Vietnamese Is Patient Female and 13-50 no hysterectomy : No GISSELLE BATISTA - 01/02/2014 13:57 CDT Subjective Pain Symptoms : Yes GISSELLE BATISTA - 01/02/2014 13:57 CDT Pain Pain Assessment Grid Pain 1 Location : Lower leg Laterality : Right Intensity : 7 Quality : Sharp, Other: sharp- like bee sting Alleviating Factors : Medication GISSELLE BATISTA - 01/02/2014 13:57 CDT Dependent Habits Tobacco Use/Currently Using : No Tobacco Use/Last 12 months : No Exposure to Tobacco Smoke : Other: non smoker Smoking Status : Never smoker GISSELLE BATISTA - 01/02/2014 13:57 CDT Source: [facility] [employer] Document Id: [id number] CDT!33 documented in this encounter Plan of Treatment Not on filedocumented as of this encounter Visit Diagnoses Not on filedocumented in this encounter
--- OUTSIDE RECORDS SUMMARY | 2021-12-11 08:00 | XMS_ITS | Encounter Summary ---
:1960 Author Organization [facility] Address [address] [place] [address] Care Team Providers Name Role Phone Unavailable Primary Care Provider Unavailable Encounter Details Date Type Department Care Team Description 11/20/2009 Hospital Encounter HX [facility] Gordy Welch , P.A.-C. Social History Tobacco Use Types Packs/Day Years Used Date Smoking Tobacco: Never Assessed Sex Assigned at Date Recorded Not on file documented as of this encounter Progress Notes Gordy Welch - 11/20/2009 12:00 AM CDT [id number] HISTORY OF PRESENT ILLNESS A 49-year-old male with a 1-2 week history of spontaneous draining venous stasis ulcer medical aspect of the left calf. PHYSICAL EXAM EXTREMITIES: He has some erythema present and +4 tight edema on left lower. He has had a history of venous stasis ulcers in the past. The ulcer at present is only about 6 mm in diameter and 3 mm deep with a loosely adherent slough bed. It has serous drainage present. I cleansed this out, debrided the superficial slough, applied wound prep and then a 4x8 Mepilex AG dressing. I then wrapped him with an Unna boot. IMPRESSION/REPORT/PLAN I placed him on Keflex 500 four times daily for 14 days. The plan is to have him return here twice a week for Unna boot changes/dressing changes. Hopefully he will see Bari Pappas., R.N., F.N.P.,B.C. on Mondays and myself on . phil Tabares Sp CKristinePed. Electronically Signed By:GORDY WELCH PA On 11/25/2009 08:47 AM Source: [facility] MHSDOLBEYNONRADSYS Document Id: [id number] documented in this encounter Miscellaneous Notes Miscellaneous - Clarisa Mooney - 11/20/2009 10:26 AM CDT Adult Cap Jewel Plate Assembler Intake/History Adult Cap Jewel Plate Assembler Intake/History Entered On: 11/20/2009 10:28 CDT Performed On: 11/20/2009 10:26 CDT by CLARISA MOONEY Intake Chief Complaint: wound care Peripheral Pulse Rate: 64bpm Systolic Blood Pressure: 134mmHg Diastolic Blood Pressure: 90mmHg (HI) NIBP Mean: 105mmHg BP Location: Left upper extremity Actual Weight: 149.500kg(Converted to: 329.591lb) Dosing Weight Clinic: 149.50kg CLARISA MOONEY - 11/20/2009 10:26 CDT Subjective Pain Symptoms: No CLARISA MOONEY - 11/20/2009 10:26 CDT Dependent Habits Tobacco Use/Currently Using: No CLARISA MOONEY - 11/20/2009 10:26 CDT Allergies Allergies (Active) NKA Estimated Onset Date: Unspecified ; Created By: CLARISA MOONEY; Reaction Status: Active ;Category: Drug ; Substance: NKA ; Type: Allergy ; Updated By: CLARISA MOONEY; Source: Patient; Reviewed Date: 11/20/2009 10:26 CDT Source: [facility] POWERCHART Document Id: [id number] CDT!14 documented in this encounter Plan of Treatment Not on filedocumented as of this encounter Visit Diagnoses Not on filedocumented in this encounter
--- OUTSIDE RECORDS SUMMARY | 2021-12-11 08:00 | XMS_ITS | Encounter Summary ---
:1960 Author Organization [facility] Address [address] [place] [address] Care Team Providers Name Role Phone Unavailable Primary Care Provider Unavailable Encounter Details Date Type Department Care Team Description 05/07/2008 Hospital Encounter HX [facility] FAMILYPRA Waqar Birmingham M.D. Social History Tobacco Use Types Packs/Day Years Used Date Smoking Tobacco: Never Assessed Sex Assigned at Date Recorded Not on file documented as of this encounter Plan of Treatment Not on filedocumented as of this encounter Visit Diagnoses Not on filedocumented in this encounter
--- OUTSIDE RECORDS SUMMARY | 2021-12-11 08:00 | XMS_ITS | Encounter Summary ---
:1960 Author Organization [facility] Address [address] [place] [address] Care Team Providers Name Role Phone Unavailable Primary Care Provider Unavailable Encounter Details Date Type Department Care Team Description 03/09/2010 Hospital Encounter [facility]X [facility] FAMILYPRA Zoila Vivar, ZOE, C.N.P. Social History Tobacco Use Types Packs/Day Years Used Date Smoking Tobacco: Never Assessed Sex Assigned at Date Recorded Not on file documented as of this encounter Progress Notes Merary Vivar - 03/09/2010 12:00 AM CST Addendum Document Contains Addenda REVISION HISTORY March 13, 2010, at 10:01 a.m. - Modification to administrative billing by Josefina Balderrama CHIEF COMPLAINT/REASON FOR VISIT The patient is here for wound care. HISTORY OF PRESENT ILLNESS He has had longstanding history of venous stasis insufficiency and ulcers. He is seen by myself and Munir Hernandez, Sp, C.Ped. in the past. He is here for another ulcer on his left medial lower leg. He states it has been there approximately 2 to 2-1/2 months. His last appointment with Veto Hernandez was the middle of December and he states that the ulcer has just gotten worse from there. He does wear a compression sock; however, not consistently. He is up on his feet for work. He denies any pain and he denies any other concern or complaint. CURRENT MEDICATIONS Reviewed and no change per EMR. ALLERGIES Reviewed and no change per EMR. VITAL SIGNS Reviewed per EMR. PHYSICAL EXAM GENERAL: This is an obese, well-developed 50-year-old male who is hsk-kox-eybwcvxba and in no acute distress. SKIN: Examination of the left medial lower leg shows a wound that is 2.5 x 1.5 x 0.3 cm. The wound bed is 90% granulating tissue and 10% yellow adhesive slough. He has bilateral hemosiderin staining and bilateral 2+ edema on his lower extremities, greater on the dorsum of feet. Pulses are positive, 2+/4+, dorsalis, pedis, and posterior tibialis. Wound is slightly erythematous; however, there is minimal pain with palpation. There is no tunneling or undermining noted. There is a scant amount of serous sanguinous; no foul odor or foul drainage noted. IMPRESSION/REPORT/PLAN PROCEDURE: After the area was cleansed with SAF-Clens, Promogran was applied to the wound and an Unna boot was applied in the usual fashion. 1) Venous stasis ulcer with inflammation. PLAN: The patient will return on a once-a-week basis. I did encourage him to wear his compression sock on his right lower extremity on a daily basis. I encouraged him to let me know if they are not fitting properly, i.e. falling down, do not go above the calf area, or if he would needed a new pair, we could help him facilitate that. The patient verbalizes understanding and agreement of plan as outlined above. I encouraged him to call me with further questions or concerns. ADMINISTRATIVE BILLING Total time: 30 minutes Counseling time: Coordination of care 25 minutes Juliann Pappas klj Lorna.Zoey, F.N.P.,B.C. Electronically Signed By:MERARY VIVAR NP On 03/13/2010 09:40 AM Juliann Pappas cer Lorna.NKristine, F.N.P.,B.C. Electronically Signed By:MERARY VIVAR NP On 03/13/2010 09:40 AM Co-Signed By:MERARY VIVAR NP On 03/13/2010 09:40 AM [facility] Document Id: [id number] E ENGINEER documented in this encounter Miscellaneous Notes Miscellaneous - Romie Stephenson RKristineN. - 03/09/2010 2:21 PM CST Ambulatory Vitals Height Weight Ambulatory Vitals Height Weight Entered On: 03/09/2010 14:21 SPACE ENGINEER Performed On: 03/09/2010 14:21 SPACE ENGINEER by ROMIE STEPHENSON Vitals/Ht/Wt Systolic Blood Pressure: 146mmHg (HI) Diastolic Blood Pressure: 94mmHg (>HHI) NIBP Mean: 111mmHg BP Location: Right upper extremity ROMIE STEPHENSON - 03/09/2010 14:21 SPACE ENGINEER Source: [facility] POWERCHART Document Id: [id number] SPACE ENGINEER!6 E ENGINEER Miscellaneous - Romie Stephenson R.N. - 03/09/2010 2:20 PM CST Adult Insulation Sprayer Intake/History Adult Insulation Sprayer Intake/History Entered On: 03/09/2010 14:21 SPACE ENGINEER Performed On: 03/09/2010 14:20 SPACE ENGINEER by ROMIE STEPHENSON Intake Chief Complaint: wound care Temperature Oral: 36.8C(Converted to: 98.2DegF) Systolic Blood Pressure: 148mmHg (HI) Diastolic Blood Pressure: 94mmHg (>HHI) NIBP Mean: 112mmHg BP Location: Left upper extremity Actual Weight: 150.500kg(Converted to: 331lb 13oz) Dosing Weight Clinic: 150.50kg ROMIE STEPHENSON - 03/09/2010 14:20 SPACE ENGINEER Subjective Pain Symptoms: Yes ROMIE STEPHENSON - 03/09/2010 14:20 SPACE ENGINEER Pain Pain Assessment Grid Pain 1 Location: Lower leg Laterality: Left Intensity: 10 ROMIE STEPHENSON - 03/09/2010 14:20 SPACE ENGINEER Dependent Habits Tobacco Use/Currently Using: No Exposure to Tobacco Smoke: Other: non smoker Alcohol Use: Yes ROMIE STEPHENSON - 03/09/2010 14:20 SPACE ENGINEER Allergies Allergies (Active) NKA Estimated Onset Date: Unspecified ; Created By: CLARISA MARAVILLA; Reaction Status: Active ;Category: Drug ; Substance: NKA ; Type: Allergy ; Updated By: CLARISA MARAVILLA; Source: Patient; Reviewed Date: 03/09/2010 14:19 SPACE ENGINEER Source: [facility] [employer]Soft Document Id: [id number] SPACE ENGINEER!22 E ENGINEER documented in this encounter Plan of Treatment Not on filedocumented as of this encounter Visit Diagnoses Not on filedocumented in this encounter
--- OUTSIDE RECORDS SUMMARY | 2021-12-11 08:00 | XMS_ITS | Encounter Summary ---
:1960 Author Organization [facility] Address [address] [place] [address] Care Team Providers Name Role Phone Unavailable Primary Care Provider Unavailable Encounter Details Date Type Department Care Team Description 12/11/2007 Hospital Encounter HX [facility] Enoc Ramirez M.D. [address] [place], [place] [address] (Wo rk) Social History Tobacco Use Types Packs/Day Years Used Date Smoking Tobacco: Never Assessed Sex Assigned at Date Recorded Not on file documented as of this encounter Plan of Treatment Not on filedocumented as of this encounter Visit Diagnoses Not on filedocumented in this encounter
--- OUTSIDE RECORDS SUMMARY | 2021-12-11 08:00 | XMS_ITS | Encounter Summary ---
:1960 Author Organization [facility] Address [address] [place] [address] Care Team Providers Name Role Phone Unavailable Primary Care Provider Unavailable Encounter Details Date Type Department Care Team Description 03/23/2010 Hospital Encounter [facility]X [facility] FAMILY[facility] Zoila Vivar a, CONTROL MANAGER, C.N.P. Social History Tobacco Use Types Packs/Day Years Used Date Smoking Tobacco: Never Assessed Sex Assigned at Date Recorded Not on file documented as of this encounter Progress Notes Merary Vivar - 03/23/2010 12:00 AM CST [id number] CHIEF COMPLAINT / REASON FOR VISIT Patient comes in today for wound care. HISTORY OF PRESENT ILLNESS We have been seeing him for wound care for his venous stasis insufficiency on his left medial lower leg. We have been seeing him once a week. He has been changing his dressing every day due to the drainage and he reports red skin around his wound that was not there before. He did get supplies from [employer] and he has had some more pain. He takes Advil anywhere from 800 to 1200 mg twice a day. He denies any other concern or complaint. CURRENT MEDICATIONS Reviewed and no changes per EMR. ALLERGIES Reviewed and no changes per EMR. VITAL SIGNS Per EMR. PHYSICAL EXAM GENERAL: This is an obese, well-developed 50-year-old male who is apn-ywt-nlijeqpff, in no acute distress. EXTREMITIES: Examination of left medial lower leg shows a wound that is 2.2 x 1.0 x 0.2 cm. Wound bed is 100% granulating buds. There is a moderate amount of serosanguineous discharge. No foul odor. Periwound is erythematous and slightly denuded, in size around the wound of 10 cm x 11 cm. There is slight weeping in the periwound due to this contact dermatitis, most likely due to the silver product. There is scant edema noted. There is bilateral hemosiderin staining noted and there is minimal pain with palpation distally to the wound. IMPRESSION/REPORT/PLAN 1) Venous stasis ulcer with inflammation. PROCEDURE: Area was cleansed. SAF-Clens skin prep was applied. We then covered the wound with Promogran, covered the entire periwound and wound with PolyMem and then, over the PolyMem, we put an Allevyn 5 x 5 nonadhesive. We then lightly wrapped Kerlix and put a Tubigrip over that and then applied his compression sock. We did give him supplies to change his dressing every day and he will follow up as directed. I instructed him to call me if he has any concerns or complaints, or the periwound worsens. The patient is comfortable with this plan. I did reassure him to let him know that sometimes people do have this irritation to silver and it will go away without severe concern. I did also suggest that he call me if he wants pain medication, as he declined at the visit. Patient verbalized understanding and agreement of plan and medication as outlined above. ADMINISTRATIVE BILLING Total Time: 30 minutes. Counseling Time: Total coordination of care 25 minutes. Juliann Pappas, bar Anyi, F.N.P.,B.C. Electronically Signed By:MERARY VIVAR ELECTRONIC DEVICE MONITOR On 03/30/2010 04:48 PM Source: [facility] MHSDOLBEYNONRADSYS Document Id: [id number] DENCE MANAGER documented in this encounter Miscellaneous Notes Miscellaneous - Romie Stephenson R.N. - 03/23/2010 8:55 AM CST Adult Sales Operations Analyst Intake/History Adult Sales Operations Analyst Intake/History Entered On: 03/23/2010 8:56 RESIDENCE MANAGER Performed On: 03/23/2010 8:55 RESIDENCE MANAGER by ROMIE STEPHENSON Intake Chief Complaint: wound care left Temperature Oral: 36.9C(Converted to: 98.4DegF) Systolic Blood Pressure: 128mmHg Diastolic Blood Pressure: 88mmHg NIBP Mean: 101mmHg BP Location: Right upper extremity Actual Weight: 146.100kg(Converted to: 322lb 2oz) Dosing Weight Clinic: 146.10kg ROMIE STEPHENSON - 03/23/2010 8:55 RESIDENCE MANAGER Subjective Pain Symptoms: Yes ROMIE STEPHENSON - 03/23/2010 8:55 RESIDENCE MANAGER Pain Pain Assessment Grid Pain 1 Location: Ankle Laterality: Left Intensity: 10 ROMIE STEPHENSON - 03/23/2010 8:55 RESIDENCE MANAGER Dependent Habits Tobacco Use/Currently Using: No Exposure to Tobacco Smoke: Other: non smoker Alcohol Use: Yes ROMIE STEPHENSON - 03/23/2010 8:55 RESIDENCE MANAGER Allergies Allergies (Active) NKA Estimated Onset Date: Unspecified ; Created By: CLARISA MARAVILLA; Reaction Status: Active ;Category: Drug ; Substance: NKA ; Type: Allergy ; Updated By: CLARISA MARAVILLA; Source: Patient; Reviewed Date: 03/23/2010 8:54 RESIDENCE MANAGER Source: [facility] POWERCHART Document Id: [id number] RESIDENCE MANAGER!22 DENCE MANAGER documented in this encounter Plan of Treatment Not on filedocumented as of this encounter Visit Diagnoses Not on filedocumented in this encounter
--- OUTSIDE RECORDS SUMMARY | 2021-12-11 08:00 | XMS_ITS | Encounter Summary ---
:1960 Author Organization [facility] Address [address] [place] [address] Care Team Providers Name Role Phone Unavailable Primary Care Provider Unavailable Encounter Details Date Type Department Care Team Description 11/27/2009 Hospital Encounter [facility] ORTHO Gordy Welch , P.A.-Kitty. Social History Tobacco Use Types Packs/Day Years Used Date Smoking Tobacco: Never Assessed Sex Assigned at Date Recorded Not on file documented as of this encounter Progress Notes Gordy Welch - 11/27/2009 12:00 AM CDT [id number] HISTORY OF PRESENT ILLNESS This 49-year-old male is here for a routine Unna Boot change for venous stasis ulcer. PHYSICAL EXAM EXTREMITIES: Venous stasis ulcer of the left calf now measures about 4 mm in diameter, draining a scant amount of serous fluid. For his itch periwound measuring 6 inches down and 4 inches proximal to the wound, I applied hydrocortisone cream 2.5% to this area and then applied Amerigel to the wound. I followed this by direct application of Dome paste boot. Over the Dome paste boot opposing the wound, I placed 4 x 4 Allevyn foam dressing. Following this I placed the Unna boot padding, and following this the SurePress bandage. IMPRESSION / REPORT / PLAN We will keep him in this boot for 1 week. He will return here in 1 week for dressing off, Unna boot change, and then he is leaving town for 2 weeks. I will most likely apply one more Unna boot prior this departure. leisa Tabares OJessica, C.Ped. Electronically Signed By:GORDY WELCH PA On 12/02/2009 08:51 AM Source: [facility] MHSDOLBEYNONRADSYS Document Id: [id number] documented in this encounter Miscellaneous Notes Miscellaneous - Conversion, Historical Provider Ser - 11/27/2009 10:17 AM CDT Adult Corporate Health Consultant Intake/History Adult Corporate Health Consultant Intake/History Entered On: 11/27/2009 10:20 CDT Performed On: 11/27/2009 10:17 CDT by DAILY WAITE Intake Chief Complaint: selma: wound care Peripheral Pulse Rate: 60bpm Systolic Blood Pressure: 136mmHg Diastolic Blood Pressure: 80mmHg NIBP Mean: 99mmHg BP Location: Right upper extremity Actual Weight: 110.000kg(Converted to: 242.509lb) Dosing Weight Clinic: 110.00kg DAILY WAITE - 11/27/2009 10:17 CDT Subjective Pain Symptoms: No DAILY WAITE - 11/27/2009 10:17 CDT Dependent Habits Tobacco Use/Currently Using: No Exposure to Tobacco Smoke: Other: non smoker DAILY WAITE - 11/27/2009 10:17 CDT Allergies Allergies (Active) NKA Estimated Onset Date: Unspecified ; Created By: CLARISA MARAVILLA; Reaction Status: Active ;Category: Drug ; Substance: NKA ; Type: Allergy ; Updated By: CLARISA MARAVILLA; Source: Patient; Reviewed Date: 11/27/2009 10:17 CDT Source: [facility] POWERCHART Document Id: [id number] CDT!15 documented in this encounter Plan of Treatment Not on filedocumented as of this encounter Visit Diagnoses Not on filedocumented in this encounter
--- OUTSIDE RECORDS SUMMARY | 2021-12-11 08:00 | XMS_ITS | Encounter Summary ---
:1960 Author Organization [facility] Address [address] [place] [address] Care Team Providers Name Role Phone Unavailable Primary Care Provider Unavailable Encounter Details Date Type Department Care Team Description 01/01/2008 Hospital Encounter [facility]X [facility] Munir Fermin , P.A.-C. Social History Tobacco Use Types Packs/Day Years Used Date Smoking Tobacco: Never Assessed Sex Assigned at Date Recorded Not on file documented as of this encounter Plan of Treatment Not on filedocumented as of this encounter Visit Diagnoses Not on filedocumented in this encounter
--- OUTSIDE RECORDS SUMMARY | 2021-12-11 08:00 | XMS_ITS | Encounter Summary ---
:1960 Author Organization [facility] Address [address] [place] [address] Care Team Providers Name Role Phone Unavailable Primary Care Provider Unavailable Encounter Details Date Type Department Care Team Description 04/21/2008 Hospital Encounter [facility]X [facility]ENT[facility] Abhi Solitario [facility] [address] [facility] [place] [address] (Wo rk) Social History Tobacco Use Types Packs/Day Years Used Date Smoking Tobacco: Never Assessed Sex Assigned at Date Recorded Not on file documented as of this encounter Plan of Treatment Not on filedocumented as of this encounter Visit Diagnoses Not on filedocumented in this encounter
--- OUTSIDE RECORDS SUMMARY | 2021-12-11 08:00 | XMS_ITS | Encounter Summary ---
:1960 Author Organization [facility] Address [address] [place] [address] Care Team Providers Name Role Phone Unavailable Primary Care Provider Unavailable Encounter Details Date Type Department Care Team Description 12/25/2007 Hospital Encounter HX [facility] Munir Fermin , P.A.-C. Social History Tobacco Use Types Packs/Day Years Used Date Smoking Tobacco: Never Assessed Sex Assigned at Date Recorded Not on file documented as of this encounter Plan of Treatment Not on filedocumented as of this encounter Visit Diagnoses Not on filedocumented in this encounter
--- OUTSIDE RECORDS SUMMARY | 2021-12-11 08:00 | XMS_ITS | Encounter Summary ---
:1960 Author Organization [facility] Address [address] [place] [address] Care Team Providers Name Role Phone Unavailable Primary Care Provider Unavailable Encounter Details Date Type Department Care Team Description 12/19/2007 Hospital Encounter [facility]X [facility] Munir Fermin , P.A.-C. Social History Tobacco Use Types Packs/Day Years Used Date Smoking Tobacco: Never Assessed Sex Assigned at Date Recorded Not on file documented as of this encounter Plan of Treatment Not on filedocumented as of this encounter Visit Diagnoses Not on filedocumented in this encounter
--- OUTSIDE RECORDS SUMMARY | 2021-12-11 08:00 | XMS_ITS | Encounter Summary ---
:1960 Author Organization [facility] Address [address] [place] [address] Care Team Providers Name Role Phone Unavailable Primary Care Provider Unavailable Encounter Details Date Type Department Care Team Description 03/16/2010 Hospital Encounter HX [facility] FAMILYPRA Zoila Vivar a, ZOE, C.N.P. Social History Tobacco Use Types Packs/Day Years Used Date Smoking Tobacco: Never Assessed Sex Assigned at Date Recorded Not on file documented as of this encounter Progress Notes Merary Vivar - 03/16/2010 12:00 AM CST [id number] CHIEF COMPLAINT / REASON FOR VISIT The patient is here for wound care. HISTORY OF PRESENT ILLNESS The patient has venous insufficiency and he has a statis ulcer on his left medial lower leg. We did see him last week and we placed him in an Unna boot. However, after 2 days he had to cut it off due to itching and some irritation around the medial malleolus area. He stated that it was weeping and he did even notice slight bleeding around the medial malleolus area. He did cover it with supplies he had at home and he has been wearing his compression sock over the bandage. He is requesting not to have the Unna boot on again. He denies any new pain, increased drainage, or any other new concerns with regards to his wound. CURRENT MEDICATIONS Reviewed and no changes per EMR. ALLERGIES Reviewed and no changes per EMR. VITALS SIGNS Per EMR. PHYSICAL EXAM GENERAL: This is an obese, well-developed 50-year-old male who is non-ill appearing and in no acute distress. EXTREMITIES: Examination of the left medial lower leg shows a wound that is 2.2 x 1.2 x 0.2 cm. The wound bed is 100% granulating buds. There is a small amount of serosanguineous discharge. No foul odor. Minimal pain with palpation. The periwound is without erythema, edema or ecchymosis. However, there is bilateral hemosiderin staining noted and trace edema. IMPRESSION / REPORT / PLAN PROCEDURE: The area was cleansed with Saf-Clens. Skin prep was applied and then we applied a PolyMem wick, silver, covered by a Mepilex 4 x 4 gentle border and a new compression sock. The patient will change the dressing every day to every other day, depending on drainage. Supplies were given. He will follow up next week or sooner if needed. The patient verbalized understanding and agreement of plan as outlined above. ADMINISTRATIVE BILLING Total Time: 30 minutes; total coordination of care was 25 minutes. Juliann Pappas, w Anyi, F.N.P.,B.C. Electronically Signed By:MERARY VIVAR MEDICAL ASSISTING PROGRAM DIRECTOR On 03/23/2010 08:10 AM Source: [facility] MHSDOLBEYNONRADSYS Document Id: [id number] E SETTING PAINTER APPRENTICE documented in this encounter Miscellaneous Notes Miscellaneous - Romie Stephenson, R.N. - 03/16/2010 9:15 AM CST Ambulatory Vitals Height Weight Ambulatory Vitals Height Weight Entered On: 03/16/2010 9:16 STAGE SETTING PAINTER APPRENTICE Performed On: 03/16/2010 9:15 STAGE SETTING PAINTER APPRENTICE by ROMIE STEPHENSON Vitals/Ht/Wt Systolic Blood Pressure: 176mmHg (>HHI) Diastolic Blood Pressure: 96mmHg (>HHI) NIBP Mean: 123mmHg BP Location: Left upper extremity ROMIE STEPHENSON - 03/16/2010 9:15 STAGE SETTING PAINTER APPRENTICE Source: [facility] POWERCHART Document Id: [id number] STAGE SETTING PAINTER APPRENTICE!6 E SETTING PAINTER APPRENTICE Miscellaneous - Romie Stephenson RKristineN. - 03/16/2010 8:50 AM CST Adult Oxygen Therapy Teacher Intake/History Adult Oxygen Therapy Teacher Intake/History Entered On: 03/16/2010 8:52 STAGE SETTING PAINTER APPRENTICE Performed On: 03/16/2010 8:50 STAGE SETTING PAINTER APPRENTICE by ROMIE STEPHENSON Intake Chief Complaint: wound care Temperature Oral: 36.7C(Converted to: 98.1DegF) Systolic Blood Pressure: 146mmHg (HI) Diastolic Blood Pressure: 92mmHg (>HHI) NIBP Mean: 110mmHg BP Location: Left upper extremity Actual Weight: 150.100kg(Converted to: 330lb 15oz) Dosing Weight Clinic: 150.10kg ROMIE STEPHENSON - 03/16/2010 8:50 STAGE SETTING PAINTER APPRENTICE Subjective Pain Symptoms: Yes ROMIE STEPHENSON - 03/16/2010 8:50 STAGE SETTING PAINTER APPRENTICE Pain Pain Assessment Grid Pain 1 Location: Foot Laterality: Left Intensity: 10 ROMIE STEPHENSON - 03/16/2010 8:50 STAGE SETTING PAINTER APPRENTICE Dependent Habits Tobacco Use/Currently Using: No Exposure to Tobacco Smoke: Other: non smoker Alcohol Use: Yes ROMIE STEPHENSON - 03/16/2010 8:50 STAGE SETTING PAINTER APPRENTICE Allergies Allergies (Active) NKA Estimated Onset Date: Unspecified ; Created By: CLARISA MARAVILLA; Reaction Status: Active ;Category: Drug ; Substance: NKA ; Type: Allergy ; Updated By: CLARISA MARAVILLA; Source: Patient; Reviewed Date: 03/16/2010 8:50 STAGE SETTING PAINTER APPRENTICE Source: [facility] POWERCHART Document Id: [id number] STAGE SETTING PAINTER APPRENTICE!22 E SETTING PAINTER APPRENTICE documented in this encounter Plan of Treatment Not on filedocumented as of this encounter Visit Diagnoses Not on filedocumented in this encounter
--- OUTSIDE RECORDS SUMMARY | 2021-12-11 08:00 | XMS_ITS | Encounter Summary ---
:1960 Author Organization [facility] Address [address] [place] [address] Care Team Providers Name Role Phone Unavailable Primary Care Provider Unavailable Encounter Details Date Type Department Care Team Description 11/24/2009 Hospital Encounter [facility] FAMILYPRA Zoila Vivar, ZOE, C.N.P. Social History Tobacco Use Types Packs/Day Years Used Date Smoking Tobacco: Never Assessed Sex Assigned at Date Recorded Not on file documented as of this encounter Progress Notes Romie Stephenson, RKristineN. - 11/24/2009 8:26 AM CDT Wound Care/Clinic Wound Care/Clinic Entered On: 11/24/2009 8:30 CDT Performed On: 11/24/2009 8:26 CDT by ROMIE STEPHENSON Incision/Wound Incision/Wound Care Grid Incision/Wound #1 Type: Stasis ulcer Location: Lower leg (Comment: Medial distal taylor [ROMIE STEPHENSON - 11/24/2009 8:26 CDT] ) Laterality: Left Color: [place], Red Length (cm): 0.4cm Width (cm): 0.4cm Depth (cm): 0.3cm Drainage: Serosanguineous Drainage Amount: Scant Surrounding Tissue: No signs or symptoms of localized infection Cleansing/ Irrigation: Cleaned/Irrigated per protocol Wound Dressing: Other: Skin prep, Mepilex AG 4x4, Unna Boot Neurovascular Status: Skin distal to injury warm and pink ROMIE STEPHENSON - 11/24/2009 8:26 CDT Source: [facility] POWERCHART Document Id: [id number] CDT!17 Merary Vivar - 11/24/2009 12:00 AM CDT [id number] CHIEF COMPLAINT / REASON FOR VISIT Tank comes in today for wound care. 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 He saw Sp Tabares, C.Ped., last and was placed in an Unna boot. He is to wear compression socks. However, he does not, as he states that they do not stay up even though they were custom fitted. He was also placed on Keflex on from [facility], and he has been taking that as prescribed. He denies any other concern or complaint. However, he would like not to have to wear the Unna boot. CURRENT MEDICATIONS Reviewed and no changes per EMR. ALLERGIES Reviewed and no changes per EMR. VITAL SIGNS Reviewed and per EMR. PHYSICAL EXAM EXTREMITIES: Left lower leg shows a 4 mm x 4 mm x 3 mm ulcer. There is a scant amount of serosanguineous drainage. There is erythema around this area with evident staining. IMPRESSION / REPORT / PLAN The area was cleansed with SAF-Clens and then skin prep and a 4 x 4 Mepilex AG. An Unna boot was applied. Please see wound care intake also done by Romie Stephenson for this visit. It was done in conjunction with myself. 1) Venous stasis ulcer with inflammation. PLAN: I discussed with patient at length that he needs to wear his compression socks or this will be a recurrent basis. I also encouraged diet and exercise as he is overweight. He is reluctant to wear his socks on a daily basis. However, I taught him and instructed him on how this would help his wounds. He will bring his socks to his next visit with Veto Hernandez to have them be evaluated. ADMINISTRATIVE BILLING Total Time: 30 minutes Counseling Time: 25 minutes Juliann Pappas, blayne Anyi F.N.PKristine,B.C. Electronically Signed By:MERARY VIVAR DOCKETING SPECIALIST On 11/27/2009 04:51 PM Source: [facility] MHSDOLBEYNONRADSYS Document Id: [id number] documented in this encounter Miscellaneous Notes Miscellaneous - Romie Stephenson RKristineNKristine - 11/24/2009 8:40 AM CDT Adult Hand Candy Molder Intake/History Adult Hand Candy Molder Intake/History Entered On: 11/24/2009 8:40 CDT Performed On: 11/24/2009 8:40 CDT by ROMIE STEPHENSON Intake Chief Complaint: wound care Temperature Oral: 37.0DegC(Converted to: 98.6DegF) Systolic Blood Pressure: 120mmHg Diastolic Blood Pressure: 68mmHg NIBP Mean: 85mmHg BP Location: Right upper extremity Actual Weight: 149.300kg(Converted to: 329.150lb) Dosing Weight Clinic: 149.30kg ROMIE STEPHENSON - 11/24/2009 8:40 CDT Subjective Pain Symptoms: No ROMIE STEPHENSON - 11/24/2009 8:40 CDT Dependent Habits Tobacco Use/Currently Using: No Alcohol Use: Yes ROMIE STEPHENSON - 11/24/2009 8:40 CDT Allergies Allergies (Active) NKA Estimated Onset Date: Unspecified ; Created By: CLARISA MARAVILLA; Reaction Status: Active ;Category: Drug ; Substance: NKA ; Type: Allergy ; Updated By: CLARISA MARAVILLA; Source: Patient; Reviewed Date: 11/24/2009 8:39 CDT Source: [facility] POWERCHART Document Id: [id number] CDT!9 documented in this encounter Plan of Treatment Not on filedocumented as of this encounter Visit Diagnoses Not on filedocumented in this encounter
--- OUTSIDE RECORDS SUMMARY | 2021-12-11 08:00 | XMS_ITS | Encounter Summary ---
:1960 Author Organization [facility] Address [address] [place] [address] Care Team Providers Name Role Phone Unavailable Primary Care Provider Unavailable Encounter Details Date Type Department Care Team Description 04/21/2008 Hospital Encounter [facility]X [facility] INTERNMED Armani Vergara M.D. [address] [place] [address] (Wo rk) Social History Tobacco Use Types Packs/Day Years Used Date Smoking Tobacco: Never Assessed Sex Assigned at Date Recorded Not on file documented as of this encounter Plan of Treatment Not on filedocumented as of this encounter Visit Diagnoses Not on filedocumented in this encounter
--- OUTSIDE RECORDS SUMMARY | 2021-12-11 08:00 | XMS_ITS | Encounter Summary ---
:1960 Author Organization [facility] Address [address] [place] [address] Care Team Providers Name Role Phone Unavailable Primary Care Provider Unavailable Encounter Details Date Type Department Care Team Description 04/23/2008 Hospital Encounter [facility]X [facility] FAMILYPRA Waqar Birmingham M.D. Social History Tobacco Use Types Packs/Day Years Used Date Smoking Tobacco: Never Assessed Sex Assigned at Date Recorded Not on file documented as of this encounter Plan of Treatment Not on filedocumented as of this encounter Visit Diagnoses Not on filedocumented in this encounter
--- OUTSIDE RECORDS SUMMARY | 2021-12-11 08:00 | XMS_ITS | Encounter Summary ---
:1960 Author Organization [facility] Address [address] [place] [address] Care Team Providers Name Role Phone Unavailable Primary Care Provider Unavailable Encounter Details Date Type Department Care Team Description 04/24/2008 Hospital Encounter [facility]X [facility] Evie Bhandari M.D. [address] [place] [address] [address] [place] [address] Social History Tobacco Use Types Packs/Day Years Used Date Smoking Tobacco: Never Assessed Sex Assigned at Date Recorded Not on file documented as of this encounter Plan of Treatment Not on filedocumented as of this encounter Visit Diagnoses Not on filedocumented in this encounter
--- OUTSIDE RECORDS SUMMARY | 2021-12-11 08:00 | XMS_ITS | Encounter Summary ---
:1960 Author Organization [facility] Address [address] [place] [address] Care Team Providers Name Role Phone Unavailable Primary Care Provider Unavailable Encounter Details Date Type Department Care Team Description 12/03/2009 Hospital Encounter HX [facility] OWOC ORTHO Gordy Welch , P.A.-C. Social History Tobacco Use Types Packs/Day Years Used Date Smoking Tobacco: Never Assessed Sex Assigned at Date Recorded Not on file documented as of this encounter Progress Notes Gordy Welch - 12/03/2009 12:00 AM CDT [id number] HISTORY OF PRESENT ILLNESS This is a 49-year-old male with a 2 x 2 x 2 mm deep venostasis ulcer on the medial side of the left leg. IMPRESSION / REPORT / PLAN I cleansed this and debrided the loosely adherent slough, applied Amerigel and then placed him back into an Unna boot. He is starting to take the horse chestnut today. He is taking 3 tablets per day. He is going on a bear hunting expedition. He will be gone for a good 2 weeks. I talked to him about keeping this bandage on for 5-6 days and then keeping it wrapped, dressed, elevated, and cleansed on a daily basis. He will follow up when he gets back from his [place]. monique Tabares O.P.A.BhavikC, C.Ped. Electronically Signed By:GORDY WELCH On 12/09/2009 09:00 AM Source: [facility] MHSDOLBEYNONRADSYS Document Id: [id number] documented in this encounter Miscellaneous Notes Miscellaneous - Gordy Welch - 12/03/2009 2:20 PM CDT Adult Terminologist Intake/History Adult Terminologist Intake/History Entered On: 12/03/2009 14:23 CDT Performed On: 12/03/2009 14:20 CDT by GRODY WELCH PA Intake Chief Complaint: take off unna boot Temperature Oral: 37.1DegC(Converted to: 98.8DegF) Systolic Blood Pressure: 120mmHg Diastolic Blood Pressure: 82mmHg NIBP Mean: 95mmHg BP Location: Right upper extremity Actual Weight: 146.500kg(Converted to: 322.977lb) Dosing Weight Clinic: 146.50kg GORDY WELCH PA - 12/03/2009 14:20 CDT Subjective Pain Symptoms: No GORDY WELCH - 12/03/2009 14:20 CDT Dependent Habits Tobacco Use/Currently Using: No Exposure to Tobacco Smoke: Other: non smoker GORDY WELCH - 12/03/2009 14:20 CDT Allergies Allergies (Active) NKA Estimated Onset Date: Unspecified ; Created By: CLARISA MARAVILLA; Reaction Status: Active ;Category: Drug ; Substance: NKA ; Type: Allergy ; Updated By: CLARISA MARAVILLA; Source: Patient; Reviewed Date: 11/27/2009 10:17 CDT Source: [facility] POWERCHART Document Id: [id number] CDT!15 documented in this encounter Plan of Treatment Not on filedocumented as of this encounter Visit Diagnoses Not on filedocumented in this encounter
--- OUTSIDE RECORDS SUMMARY | 2021-12-11 08:00 | XMS_ITS | Encounter Summary ---
:1960 Author Organization [facility] Address [address] [place] [address] Care Team Providers Name Role Phone Unavailable Primary Care Provider Unavailable Encounter Details Date Type Department Care Team Description 01/15/2008 Hospital Encounter [facility]X [facility] Munir Fermin , P.A.-C. Social History Tobacco Use Types Packs/Day Years Used Date Smoking Tobacco: Never Assessed Sex Assigned at Date Recorded Not on file documented as of this encounter Plan of Treatment Not on filedocumented as of this encounter Visit Diagnoses Not on filedocumented in this encounter
--- OUTSIDE RECORDS SUMMARY | 2021-12-11 08:00 | XMS_ITS | Encounter Summary ---
:1960 Author Organization [facility] Address [address] [place] [address] Care Team Providers Name Role Phone Unavailable Primary Care Provider Unavailable Encounter Details Date Type Department Care Team Description 12/11/2007 Hospital Encounter [facility]X [facility] Munir Fermin , P.A.-C. Social History Tobacco Use Types Packs/Day Years Used Date Smoking Tobacco: Never Assessed Sex Assigned at Date Recorded Not on file documented as of this encounter Plan of Treatment Not on filedocumented as of this encounter Visit Diagnoses Not on filedocumented in this encounter
--- OUTSIDE RECORDS SUMMARY | 2021-12-11 08:00 | XMS_ITS | Encounter Summary ---
:1960 Author Organization [facility] Address [address] [place] [address] Care Team Providers Name Role Phone Unavailable Primary Care Provider Unavailable Encounter Details Date Type Department Care Team Description 04/21/2008 Hospital Encounter HX NO MAPPING Freedom Mahoney M.D. Social History Tobacco Use Types Packs/Day Years Used Date Smoking Tobacco: Never Assessed Sex Assigned at Date Recorded Not on file documented as of this encounter Plan of Treatment Not on filedocumented as of this encounter Visit Diagnoses Not on filedocumented in this encounter
--- OUTSIDE RECORDS SUMMARY | 2021-12-11 08:01 | XMS_ITS | Encounter Summary ---
:1960 Author Organization [facility] Address [address] [place] [address] Care Team Providers Name Role Phone Unavailable Primary Care Provider Unavailable Encounter Details Date Type Department Care Team Description 11/06/2007 Hospital Encounter [facility]X [facility] Munir Fermin , P.A.-C. Social History Tobacco Use Types Packs/Day Years Used Date Smoking Tobacco: Never Assessed Sex Assigned at Date Recorded Not on file documented as of this encounter Plan of Treatment Not on filedocumented as of this encounter Visit Diagnoses Not on filedocumented in this encounter
--- OUTSIDE RECORDS SUMMARY | 2021-12-11 08:01 | XMS_ITS | Encounter Summary ---
:1960 Author Organization [facility] Address [address] [place] [address] Care Team Providers Name Role Phone Unavailable Primary Care Provider Unavailable Encounter Details Date Type Department Care Team Description 11/28/2007 Hospital Encounter [facility]X [facility] Munir Fermin , P.A.-C. Social History Tobacco Use Types Packs/Day Years Used Date Smoking Tobacco: Never Assessed Sex Assigned at Date Recorded Not on file documented as of this encounter Plan of Treatment Not on filedocumented as of this encounter Visit Diagnoses Not on filedocumented in this encounter
--- OUTSIDE RECORDS SUMMARY | 2021-12-11 08:01 | XMS_ITS | Encounter Summary ---
:1960 Author Organization [facility] Address [address] [place] [address] Care Team Providers Name Role Phone Unavailable Primary Care Provider Unavailable Encounter Details Date Type Department Care Team Description 09/22/2007 Hospital Encounter HX NO MAPPING Rebel Faust M.D. Social History Tobacco Use Types Packs/Day Years Used Date Smoking Tobacco: Never Assessed Sex Assigned at Date Recorded Not on file documented as of this encounter Plan of Treatment Not on filedocumented as of this encounter Visit Diagnoses Not on filedocumented in this encounter
--- OUTSIDE RECORDS SUMMARY | 2021-12-11 08:01 | XMS_ITS | Encounter Summary ---
:1960 Author Organization [facility] Address [address] [place] [address] Care Team Providers Name Role Phone Unavailable Primary Care Provider Unavailable Encounter Details Date Type Department Care Team Description 11/02/2007 Hospital Encounter [facility]X [facility] Munir Fermin , P.A.-C. Social History Tobacco Use Types Packs/Day Years Used Date Smoking Tobacco: Never Assessed Sex Assigned at Date Recorded Not on file documented as of this encounter Plan of Treatment Not on filedocumented as of this encounter Visit Diagnoses Not on filedocumented in this encounter
--- OUTSIDE RECORDS SUMMARY | 2021-12-11 08:01 | XMS_ITS | Encounter Summary ---
:1960 Author Organization [facility] Address [address] [place] [address] Care Team Providers Name Role Phone Unavailable Primary Care Provider Unavailable Encounter Details Date Type Department Care Team Description 09/21/2007 Hospital Encounter HX [facility] FAMILYPRA Waqar [place] M.D. Social History Tobacco Use Types Packs/Day Years Used Date Smoking Tobacco: Never Assessed Sex Assigned at Date Recorded Not on file documented as of this encounter Plan of Treatment Not on filedocumented as of this encounter Visit Diagnoses Not on filedocumented in this encounter
--- OUTSIDE RECORDS SUMMARY | 2021-12-11 08:01 | XMS_ITS | Encounter Summary ---
:1960 Author Organization [facility] Address [address] [place] [address] Care Team Providers Name Role Phone Unavailable Primary Care Provider Unavailable Encounter Details Date Type Department Care Team Description 12/05/2007 Hospital Encounter HX [facility] Munir Fermin , P.A.-C. Social History Tobacco Use Types Packs/Day Years Used Date Smoking Tobacco: Never Assessed Sex Assigned at Date Recorded Not on file documented as of this encounter Plan of Treatment Not on filedocumented as of this encounter Visit Diagnoses Not on filedocumented in this encounter
--- OUTSIDE RECORDS SUMMARY | 2021-12-11 08:01 | XMS_ITS | Encounter Summary ---
:1960 Author Organization [facility] Address [address] [place] [address] Care Team Providers Name Role Phone Unavailable Primary Care Provider Unavailable Encounter Details Date Type Department Care Team Description 09/25/2007 Hospital Encounter HX NO MAPPING Kt Acharya M.D. [address] [place], [place] [phone] (Wo rk) Social History Tobacco Use Types Packs/Day Years Used Date Smoking Tobacco: Never Assessed Sex Assigned at Date Recorded Not on file documented as of this encounter Plan of Treatment Not on filedocumented as of this encounter Visit Diagnoses Not on filedocumented in this encounter
--- OUTSIDE RECORDS SUMMARY | 2021-12-11 08:01 | XMS_ITS | Encounter Summary ---
:1960 Author Organization [facility] Address [address] [place] [address] Care Team Providers Name Role Phone Unavailable Primary Care Provider Unavailable Encounter Details Date Type Department Care Team Description 10/02/2007 Hospital Encounter HX [facility] Dani Santamaria M.D. Social History Tobacco Use Types Packs/Day Years Used Date Smoking Tobacco: Never Assessed Sex Assigned at Date Recorded Not on file documented as of this encounter Plan of Treatment Not on filedocumented as of this encounter Visit Diagnoses Not on filedocumented in this encounter
--- OUTSIDE RECORDS SUMMARY | 2021-12-11 08:01 | XMS_ITS | Encounter Summary ---
:1960 Author Organization [facility] Address [address] [place] [address] Care Team Providers Name Role Phone Unavailable Primary Care Provider Unavailable Encounter Details Date Type Department Care Team Description 10/05/2007 Hospital Encounter HX [facility] Dani Santamaria M.D. Social History Tobacco Use Types Packs/Day Years Used Date Smoking Tobacco: Never Assessed Sex Assigned at Date Recorded Not on file documented as of this encounter Plan of Treatment Not on filedocumented as of this encounter Visit Diagnoses Not on filedocumented in this encounter
--- OUTSIDE RECORDS SUMMARY | 2021-12-11 08:01 | XMS_ITS | Encounter Summary ---
:1960 Author Organization [facility] Address [address] [place] [address] Care Team Providers Name Role Phone Unavailable Primary Care Provider Unavailable Encounter Details Date Type Department Care Team Description 11/13/2007 Hospital Encounter HX [facility] Dani Santamaria M.D. Social History Tobacco Use Types Packs/Day Years Used Date Smoking Tobacco: Never Assessed Sex Assigned at Date Recorded Not on file documented as of this encounter Plan of Treatment Not on filedocumented as of this encounter Visit Diagnoses Not on filedocumented in this encounter
--- OUTSIDE RECORDS SUMMARY | 2021-12-11 08:01 | XMS_ITS | Encounter Summary ---
:1960 Author Organization [facility] Address [address] [place] [address] Care Team Providers Name Role Phone Unavailable Primary Care Provider Unavailable Encounter Details Date Type Department Care Team Description 09/28/2007 Hospital Encounter HX [facility] FAMILYPRA Waqar [place] M.D. Social History Tobacco Use Types Packs/Day Years Used Date Smoking Tobacco: Never Assessed Sex Assigned at Date Recorded Not on file documented as of this encounter Plan of Treatment Not on filedocumented as of this encounter Visit Diagnoses Not on filedocumented in this encounter
--- OUTSIDE RECORDS SUMMARY | 2021-12-11 08:01 | XMS_ITS | Encounter Summary ---
:1960 Author Organization [facility] Address [address] [place] [address] Care Team Providers Name Role Phone Unavailable Primary Care Provider Unavailable Encounter Details Date Type Department Care Team Description 09/25/2007 Hospital Encounter HX [facility] FAMILYPRA Waqar [place] M.D. Social History Tobacco Use Types Packs/Day Years Used Date Smoking Tobacco: Never Assessed Sex Assigned at Date Recorded Not on file documented as of this encounter Plan of Treatment Not on filedocumented as of this encounter Visit Diagnoses Not on filedocumented in this encounter
--- OUTSIDE RECORDS SUMMARY | 2021-12-11 08:01 | XMS_ITS | Encounter Summary ---
:1960 Author Organization [facility] Address [address] [place] [address] Care Team Providers Name Role Phone Unavailable Primary Care Provider Unavailable Encounter Details Date Type Department Care Team Description 10/23/2007 Hospital Encounter HX [facility] Munir Fermin , P.A.-C. Social History Tobacco Use Types Packs/Day Years Used Date Smoking Tobacco: Never Assessed Sex Assigned at Date Recorded Not on file documented as of this encounter Plan of Treatment Not on filedocumented as of this encounter Visit Diagnoses Not on filedocumented in this encounter
--- OUTSIDE RECORDS SUMMARY | 2021-12-11 08:01 | XMS_ITS | Encounter Summary ---
:1960 Author Organization [facility] Address [address] [place] [address] Care Team Providers Name Role Phone Unavailable Primary Care Provider Unavailable Encounter Details Date Type Department Care Team Description 09/25/2007 Hospital Encounter HX [facility] Dani Santamaria M.D. Social History Tobacco Use Types Packs/Day Years Used Date Smoking Tobacco: Never Assessed Sex Assigned at Date Recorded Not on file documented as of this encounter Plan of Treatment Not on filedocumented as of this encounter Visit Diagnoses Not on filedocumented in this encounter
--- OUTSIDE RECORDS SUMMARY | 2021-12-11 08:01 | XMS_ITS | Encounter Summary ---
:1960 Author Organization [facility] Address [address] [place] [address] Care Team Providers Name Role Phone Unavailable Primary Care Provider Unavailable Encounter Details Date Type Department Care Team Description 11/23/2007 Hospital Encounter HX [facility] Munir Fermin , P.A.-C. Social History Tobacco Use Types Packs/Day Years Used Date Smoking Tobacco: Never Assessed Sex Assigned at Date Recorded Not on file documented as of this encounter Plan of Treatment Not on filedocumented as of this encounter Visit Diagnoses Not on filedocumented in this encounter
--- OUTSIDE RECORDS SUMMARY | 2021-12-11 08:01 | XMS_ITS | Encounter Summary ---
:1960 Author Organization [facility] Address [address] [place] [address] Care Team Providers Name Role Phone Unavailable Primary Care Provider Unavailable Encounter Details Date Type Department Care Team Description 11/13/2007 Hospital Encounter HX [facility] Munir Fermin , P.A.-C. Social History Tobacco Use Types Packs/Day Years Used Date Smoking Tobacco: Never Assessed Sex Assigned at Date Recorded Not on file documented as of this encounter Plan of Treatment Not on filedocumented as of this encounter Visit Diagnoses Not on filedocumented in this encounter
--- OUTSIDE RECORDS SUMMARY | 2021-12-11 08:01 | XMS_ITS | Encounter Summary ---
:1960 Author Organization [facility] Address [address] [place] [address] Care Team Providers Name Role Phone Unavailable Primary Care Provider Unavailable Encounter Details Date Type Department Care Team Description 09/21/2007 Hospital Encounter HX NO MAPPING Provider, Historical Social History Tobacco Use Types Packs/Day Years Used Date Smoking Tobacco: Never Assessed Sex Assigned at Date Recorded Not on file documented as of this encounter Plan of Treatment Not on filedocumented as of this encounter Visit Diagnoses Not on filedocumented in this encounter
--- OUTSIDE RECORDS SUMMARY | 2021-12-11 08:01 | XMS_ITS | Encounter Summary ---
:[address] [facility] Address [address] [place] [address] Care Team Providers Name Role Phone Unavailable Primary Care Provider Unavailable Encounter Details Date Type Department Care Team Description 09/25/2007 Hospital Encounter HX [facility] Clarisa Cuevas, P.A.-C. [address] [facility] [place] [phone] (Wo rk) Social History Tobacco Use Types Packs/Day Years Used Date Smoking Tobacco: Never Assessed Sex Assigned at Date Recorded Not on file documented as of this encounter Plan of Treatment Not on filedocumented as of this encounter Visit Diagnoses Not on filedocumented in this encounter
--- OUTSIDE RECORDS SUMMARY | 2021-12-11 08:01 | XMS_ITS | Encounter Summary ---
:1960 Author Organization [facility] Address [address] [place] [address] Care Team Providers Name Role Phone Unavailable Primary Care Provider Unavailable Encounter Details Date Type Department Care Team Description 10/09/2007 Hospital Encounter HX [facility] Dani Santamaria M.D. Social History Tobacco Use Types Packs/Day Years Used Date Smoking Tobacco: Never Assessed Sex Assigned at Date Recorded Not on file documented as of this encounter Plan of Treatment Not on filedocumented as of this encounter Visit Diagnoses Not on filedocumented in this encounter
--- OUTSIDE RECORDS SUMMARY | 2021-12-11 08:01 | XMS_ITS | Encounter Summary ---
:1960 Author Organization [facility] Address [address] [place] [address] Care Team Providers Name Role Phone Unavailable Primary Care Provider Unavailable Encounter Details Date Type Department Care Team Description 11/20/2007 Hospital Encounter HX [facility] Munir Fermin , P.A.-C. Social History Tobacco Use Types Packs/Day Years Used Date Smoking Tobacco: Never Assessed Sex Assigned at Date Recorded Not on file documented as of this encounter Plan of Treatment Not on filedocumented as of this encounter Visit Diagnoses Not on filedocumented in this encounter
--- OUTSIDE RECORDS SUMMARY | 2021-12-11 08:01 | XMS_ITS | Encounter Summary ---
:1960 Author Organization [facility] Address [address] [place] [address] Care Team Providers Name Role Phone Unavailable Primary Care Provider Unavailable Encounter Details Date Type Department Care Team Description 10/16/2007 Hospital Encounter HX [facility] Dani Santamaria M.D. Social History Tobacco Use Types Packs/Day Years Used Date Smoking Tobacco: Never Assessed Sex Assigned at Date Recorded Not on file documented as of this encounter Plan of Treatment Not on filedocumented as of this encounter Visit Diagnoses Not on filedocumented in this encounter
--- OUTSIDE RECORDS SUMMARY | 2021-12-11 08:01 | XMS_ITS | Encounter Summary ---
:1960 Author Organization [facility] Address [address] [place] [address] Care Team Providers Name Role Phone Unavailable Primary Care Provider Unavailable Encounter Details Date Type Department Care Team Description 09/21/2007 Hospital Encounter HX NO MAPPING Rebel Faust M.D. Social History Tobacco Use Types Packs/Day Years Used Date Smoking Tobacco: Never Assessed Sex Assigned at Date Recorded Not on file documented as of this encounter Plan of Treatment Not on filedocumented as of this encounter Visit Diagnoses Not on filedocumented in this encounter
--- OUTSIDE RECORDS SUMMARY | 2021-12-11 08:01 | XMS_ITS | Encounter Summary ---
:1960 Author Organization [facility] Address [address] [place] [address] Care Team Providers Name Role Phone Unavailable Primary Care Provider Unavailable Encounter Details Date Type Department Care Team Description 10/31/2007 Hospital Encounter HX [facility] Munir Fermin , P.A.-C. Social History Tobacco Use Types Packs/Day Years Used Date Smoking Tobacco: Never Assessed Sex Assigned at Date Recorded Not on file documented as of this encounter Plan of Treatment Not on filedocumented as of this encounter Visit Diagnoses Not on filedocumented in this encounter
--- OUTSIDE RECORDS SUMMARY | 2021-12-11 08:01 | XMS_ITS | Encounter Summary ---
:1960 Author Organization [facility] Address [address] [place] [address] Care Team Providers Name Role Phone Unavailable Primary Care Provider Unavailable Encounter Details Date Type Department Care Team Description 10/23/2007 Hospital Encounter HX [facility] Dani Santamaria M.D. Social History Tobacco Use Types Packs/Day Years Used Date Smoking Tobacco: Never Assessed Sex Assigned at Date Recorded Not on file documented as of this encounter Plan of Treatment Not on filedocumented as of this encounter Visit Diagnoses Not on filedocumented in this encounter
--- OUTSIDE RECORDS SUMMARY | 2021-12-11 08:02 | XMS_ITS | Encounter Summary ---
:1960 Author Organization [facility] Address [address] [place] [address] Care Team Providers Name Role Phone Unavailable Primary Care Provider Unavailable Encounter Details Date Type Department Care Team Description 08/08/2007 Hospital Encounter HX NO MAPPING Provider, Historical Social History Tobacco Use Types Packs/Day Years Used Date Smoking Tobacco: Never Assessed Sex Assigned at Date Recorded Not on file documented as of this encounter Plan of Treatment Not on filedocumented as of this encounter Visit Diagnoses Not on filedocumented in this encounter
--- OUTSIDE RECORDS SUMMARY | 2021-12-11 08:02 | XMS_ITS | Encounter Summary ---
:1960 Author Organization [facility] Address [address] [place] [address] Care Team Providers Name Role Phone Unavailable Primary Care Provider Unavailable Encounter Details Date Type Department Care Team Description 04/19/2003 Hospital Encounter HX [facility] Buddy [place] Jr., M.D. [address] [facility] [place] [phone] (Wo rk) Social History Tobacco Use Types Packs/Day Years Used Date Smoking Tobacco: Never Assessed Sex Assigned at Date Recorded Not on file documented as of this encounter Plan of Treatment Not on filedocumented as of this encounter Visit Diagnoses Not on filedocumented in this encounter
--- OUTSIDE RECORDS SUMMARY | 2021-12-11 08:02 | XMS_ITS | Encounter Summary ---
:1960 Author Organization [facility] Address [address] [place] [address] Care Team Providers Name Role Phone Unavailable Primary Care Provider Unavailable Encounter Details Date Type Department Care Team Description 09/05/2007 Hospital Encounter HX [facility] SURGERY Conner Schmitt M.D. Social History Tobacco Use Types Packs/Day Years Used Date Smoking Tobacco: Never Assessed Sex Assigned at Date Recorded Not on file documented as of this encounter Plan of Treatment Not on filedocumented as of this encounter Visit Diagnoses Not on filedocumented in this encounter
--- OUTSIDE RECORDS SUMMARY | 2021-12-11 08:02 | XMS_ITS | Encounter Summary ---
:1960 Author Organization [facility] Address [address] [place] [address] Care Team Providers Name Role Phone Unavailable Primary Care Provider Unavailable Encounter Details Date Type Department Care Team Description 02/28/2002 Hospital Encounter HX [facility] SURGERY Conner Schmitt M.D. Social History Tobacco Use Types Packs/Day Years Used Date Smoking Tobacco: Never Assessed Sex Assigned at Date Recorded Not on file documented as of this encounter Plan of Treatment Not on filedocumented as of this encounter Visit Diagnoses Not on filedocumented in this encounter
--- OUTSIDE RECORDS SUMMARY | 2021-12-11 08:02 | XMS_ITS | Encounter Summary ---
:1960 Author Organization [facility] Address [address] [place] [address] Care Team Providers Name Role Phone Unavailable Primary Care Provider Unavailable Encounter Details Date Type Department Care Team Description 04/12/2003 Hospital Encounter HX [facility] Buddy [place] Jr., M.D. [address] [place] [phone] (Wo rk) Social History Tobacco Use Types Packs/Day Years Used Date Smoking Tobacco: Never Assessed Sex Assigned at Date Recorded Not on file documented as of this encounter Plan of Treatment Not on filedocumented as of this encounter Visit Diagnoses Not on filedocumented in this encounter
--- OUTSIDE RECORDS SUMMARY | 2021-12-11 08:02 | XMS_ITS | Encounter Summary ---
:1960 Author Organization [facility] Address [address] [place] [address] Care Team Providers Name Role Phone Unavailable Primary Care Provider Unavailable Encounter Details Date Type Department Care Team Description 08/03/2007 Hospital Encounter HX [facility] URGENTCAR Kahlil Leal, C.N.P., R.N. Social History Tobacco Use Types Packs/Day Years Used Date Smoking Tobacco: Never Assessed Sex Assigned at Date Recorded Not on file documented as of this encounter Plan of Treatment Not on filedocumented as of this encounter Visit Diagnoses Not on filedocumented in this encounter
--- OUTSIDE RECORDS SUMMARY | 2021-12-11 08:02 | XMS_ITS | Encounter Summary ---
:1960 Author Organization [facility] Address [address] [place] [address] Care Team Providers Name Role Phone Unavailable Primary Care Provider Unavailable Encounter Details Date Type Department Care Team Description 04/26/2003 Hospital Encounter [facility]X [facility] Buddy [place] Jr., M.D. [address] [facility] [place] [phone] (Wo rk) Social History Tobacco Use Types Packs/Day Years Used Date Smoking Tobacco: Never Assessed Sex Assigned at Date Recorded Not on file documented as of this encounter Plan of Treatment Not on filedocumented as of this encounter Visit Diagnoses Not on filedocumented in this encounter
--- OUTSIDE RECORDS SUMMARY | 2021-12-11 08:02 | XMS_ITS | Encounter Summary ---
:1960 Author Organization [facility] Address [address] [place] [address] Care Team Providers Name Role Phone Unavailable Primary Care Provider Unavailable Encounter Details Date Type Department Care Team Description 07/25/2007 Hospital Encounter HX [facility] URGENTCAR O'Fidencio y, Stu Nicole M.D. [address] [place], [place] [phone] (Wo rk) Social History Tobacco Use Types Packs/Day Years Used Date Smoking Tobacco: Never Assessed Sex Assigned at Date Recorded Not on file documented as of this encounter Plan of Treatment Not on filedocumented as of this encounter Visit Diagnoses Not on filedocumented in this encounter
--- OUTSIDE RECORDS SUMMARY | 2021-12-11 08:02 | XMS_ITS | Encounter Summary ---
:1960 Author Organization [facility] Address [address] [place] [address] Care Team Providers Name Role Phone Unavailable Primary Care Provider Unavailable Encounter Details Date Type Department Care Team Description 09/20/2007 Hospital Encounter HX [facility] OWOC URGENTCAR César Pulido M.D. [address] [place] [phone] (Wo rk) Social History Tobacco Use Types Packs/Day Years Used Date Smoking Tobacco: Never Assessed Sex Assigned at Date Recorded Not on file documented as of this encounter Plan of Treatment Not on filedocumented as of this encounter Visit Diagnoses Not on filedocumented in this encounter
--- OUTSIDE RECORDS SUMMARY | 2021-12-11 08:02 | XMS_ITS | Encounter Summary ---
:1960 Author Organization [facility] Address [address] [place] [address] Care Team Providers Name Role Phone Unavailable Primary Care Provider Unavailable Encounter Details Date Type Department Care Team Description 04/13/2003 Hospital Encounter HX [facility] Buddy [place] Jr., M.D. [address] [facility] [place] [place] [phone] (Wo rk) Social History Tobacco Use Types Packs/Day Years Used Date Smoking Tobacco: Never Assessed Sex Assigned at Date Recorded Not on file documented as of this encounter Plan of Treatment Not on filedocumented as of this encounter Visit Diagnoses Not on filedocumented in this encounter
--- OUTSIDE RECORDS SUMMARY | 2021-12-11 08:02 | XMS_ITS | Encounter Summary ---
:1960 Author Organization [facility] Address [address] [place] [address] Care Team Providers Name Role Phone Unavailable Primary Care Provider Unavailable Encounter Details Date Type Department Care Team Description 02/05/2003 Hospital Encounter [facility]X [facility] Buddy [place] Jr., M.D. [address] [facility] [place] [phone] (Wo rk) Social History Tobacco Use Types Packs/Day Years Used Date Smoking Tobacco: Never Assessed Sex Assigned at Date Recorded Not on file documented as of this encounter Plan of Treatment Not on filedocumented as of this encounter Visit Diagnoses Not on filedocumented in this encounter
--- OUTSIDE RECORDS SUMMARY | 2021-12-11 08:02 | XMS_ITS | Encounter Summary ---
:1960 Author Organization [facility] Address [address] [place] [address] Care Team Providers Name Role Phone Unavailable Primary Care Provider Unavailable Encounter Details Date Type Department Care Team Description 08/17/2007 Hospital Encounter HX [facility] OWOC FAMILYPRA Waqar [place] M.D. Social History Tobacco Use Types Packs/Day Years Used Date Smoking Tobacco: Never Assessed Sex Assigned at Date Recorded Not on file documented as of this encounter Plan of Treatment Not on filedocumented as of this encounter Visit Diagnoses Not on filedocumented in this encounter
--- OUTSIDE RECORDS SUMMARY | 2021-12-11 08:02 | XMS_ITS | Encounter Summary ---
:1960 Author Organization [facility] Address [address] [place] [address] Care Team Providers Name Role Phone Unavailable Primary Care Provider Unavailable Encounter Details Date Type Department Care Team Description 09/20/2007 Hospital Encounter HX NO MAPPING Eliel Elizabeth M.D. [address] [place] [phone] (Wo rk) Social History Tobacco Use Types Packs/Day Years Used Date Smoking Tobacco: Never Assessed Sex Assigned at Date Recorded Not on file documented as of this encounter Plan of Treatment Not on filedocumented as of this encounter Visit Diagnoses Not on filedocumented in this encounter
--- OUTSIDE RECORDS SUMMARY | 2021-12-11 08:02 | XMS_ITS | Encounter Summary ---
:1960 Author Organization [facility] Address [address] [place] [address] Care Team Providers Name Role Phone Unavailable Primary Care Provider Unavailable Encounter Details Date Type Department Care Team Description 09/20/2007 Hospital Encounter HX [facility]OC DERM Araceli Collier M.D. [address] [facility] [place] [address] (Wo rk) Social History Tobacco Use Types Packs/Day Years Used Date Smoking Tobacco: Never Assessed Sex Assigned at Date Recorded Not on file documented as of this encounter Plan of Treatment Not on filedocumented as of this encounter Visit Diagnoses Not on filedocumented in this encounter
--- OUTSIDE RECORDS SUMMARY | 2021-12-11 08:02 | XMS_ITS | Encounter Summary ---
:1960 Author Organization [facility] Address [address] [place] [address] Care Team Providers Name Role Phone Unavailable Primary Care Provider Unavailable Encounter Details Date Type Department Care Team Description 09/20/2007 Hospital [facility] [address] [facility] [place] [address] (Wo rk) Social History Tobacco Use Types Packs/Day Years Used Date Smoking Tobacco: Never Assessed Sex Assigned at Date Recorded Not on file documented as of this encounter Plan of Treatment Not on filedocumented as of this encounter Visit Diagnoses Not on filedocumented in this encounter
--- OUTSIDE RECORDS SUMMARY | 2021-12-11 08:03 | XMS_ITS | Encounter Summary ---
:1960 Author Organization [facility] Address [address] [place] [address] Care Team Providers Name Role Phone Unavailable Primary Care Provider Unavailable Encounter Details Date Type Department Care Team Description 05/02/2001 Hospital Encounter HX [facility] OWOC SURGERY Conner Schmitt M.D. Social History Tobacco Use Types Packs/Day Years Used Date Smoking Tobacco: Never Assessed Sex Assigned at Date Recorded Not on file documented as of this encounter Plan of Treatment Not on filedocumented as of this encounter Visit Diagnoses Not on filedocumented in this encounter
--- OUTSIDE RECORDS SUMMARY | 2021-12-11 08:03 | XMS_ITS | Encounter Summary ---
:1960 Author Organization [facility] Address [address] [place] [address] Care Team Providers Name Role Phone Unavailable Primary Care Provider Unavailable Encounter Details Date Type Department Care Team Description 11/21/2001 Hospital Encounter HX [facility]OC [facility] Rafiq Villarreal M.D. Social History Tobacco Use Types Packs/Day Years Used Date Smoking Tobacco: Never Assessed Sex Assigned at Date Recorded Not on file documented as of this encounter Plan of Treatment Not on filedocumented as of this encounter Visit Diagnoses Not on filedocumented in this encounter
--- OUTSIDE RECORDS SUMMARY | 2021-12-11 08:03 | XMS_ITS | Encounter Summary ---
:1960 Author Organization [facility] Address [address] [place] [address] Care Team Providers Name Role Phone Unavailable Primary Care Provider Unavailable Encounter Details Date Type Department Care Team Description 04/07/2001 Hospital Encounter HX [facility] OWOC SURGERY Conner Schmitt M.D. Social History Tobacco Use Types Packs/Day Years Used Date Smoking Tobacco: Never Assessed Sex Assigned at Date Recorded Not on file documented as of this encounter Plan of Treatment Not on filedocumented as of this encounter Visit Diagnoses Not on filedocumented in this encounter
--- OUTSIDE RECORDS SUMMARY | 2021-12-11 08:03 | XMS_ITS | Encounter Summary ---
:1960 Author Organization [facility] Address [address] [place] [address] Care Team Providers Name Role Phone Unavailable Primary Care Provider Unavailable Encounter Details Date Type Department Care Team Description 04/03/2001 Hospital Encounter HX [facility] OWOC SURGERY Conner Schmitt M.D. Social History Tobacco Use Types Packs/Day Years Used Date Smoking Tobacco: Never Assessed Sex Assigned at Date Recorded Not on file documented as of this encounter Plan of Treatment Not on filedocumented as of this encounter Visit Diagnoses Not on filedocumented in this encounter
--- OUTSIDE RECORDS SUMMARY | 2021-12-11 08:03 | XMS_ITS | Encounter Summary ---
:[address] [facility] Address [address] [place] [address] Care Team Providers Name Role Phone Unavailable Primary Care Provider Unavailable Encounter Details Date Type Department Care Team Description 01/26/2002 - 02/02/2002 Hospital Encounter HX NO MAPPING Social History Tobacco Use Types Packs/Day Years Used Date Smoking Tobacco: Never Assessed Sex Assigned at Date Recorded Not on file documented as of this encounter Plan of Treatment Not on filedocumented as of this encounter Visit Diagnoses Not on filedocumented in this encounter
--- OUTSIDE RECORDS SUMMARY | 2021-12-11 08:03 | XMS_ITS | Encounter Summary ---
:1960 Author Organization [facility] Address [address] [place] [address] Care Team Providers Name Role Phone Unavailable Primary Care Provider Unavailable Encounter Details Date Type Department Care Team Description 02/02/2001 Hospital Encounter HX [facility] OWOC SURGERY Conner Schmitt M.D. Social History Tobacco Use Types Packs/Day Years Used Date Smoking Tobacco: Never Assessed Sex Assigned at Date Recorded Not on file documented as of this encounter Plan of Treatment Not on filedocumented as of this encounter Visit Diagnoses Not on filedocumented in this encounter
--- OUTSIDE RECORDS SUMMARY | 2021-12-11 08:03 | XMS_ITS | Encounter Summary ---
:1960 Author Organization [facility] Address [address] [place] [address] Care Team Providers Name Role Phone Unavailable Primary Care Provider Unavailable Encounter Details Date Type Department Care Team Description 02/24/2001 Hospital Encounter HX [facility] OWOC SURGERY Conner Schmitt M.D. Social History Tobacco Use Types Packs/Day Years Used Date Smoking Tobacco: Never Assessed Sex Assigned at Date Recorded Not on file documented as of this encounter Plan of Treatment Not on filedocumented as of this encounter Visit Diagnoses Not on filedocumented in this encounter
--- OUTSIDE RECORDS SUMMARY | 2021-12-11 08:03 | XMS_ITS | Encounter Summary ---
:1960 Author Organization [facility] Address [address] [place] [address] Care Team Providers Name Role Phone Unavailable Primary Care Provider Unavailable Encounter Details Date Type Department Care Team Description 03/09/2001 Hospital Encounter HX [facility] OWOC SURGERY Conner Schmitt M.D. Social History Tobacco Use Types Packs/Day Years Used Date Smoking Tobacco: Never Assessed Sex Assigned at Date Recorded Not on file documented as of this encounter Plan of Treatment Not on filedocumented as of this encounter Visit Diagnoses Not on filedocumented in this encounter
--- OUTSIDE RECORDS SUMMARY | 2021-12-11 08:03 | XMS_ITS | Encounter Summary ---
:1960 Author Organization [facility] Address [address] [place] [address] Care Team Providers Name Role Phone Unavailable Primary Care Provider Unavailable Encounter Details Date Type Department Care Team Description 06/01/2001 - 06/04/2001 Hospital Encounter HX RST DAILY [facility]O 9E Social History Tobacco Use Types Packs/Day Years Used Date Smoking Tobacco: Never Assessed Sex Assigned at Date Recorded Not on file documented as of this encounter Plan of Treatment Not on filedocumented as of this encounter Procedures Procedure Name Priority Date/Time Associated Diagnosis Comme nts DX LUMBAR SPINE 2-3 Routine 06/01/2001 11:17 AM R esults for this VIEWS [employer] procedure are i n the results section. documented in this encounter Results DX Lumbar Spine 2-3 Views (06/01/2001 11:17 AM [employer]) Anatomical Region Laterality Modality Lumbar Spine N/A Radiographic Imaging Specimen (Source) Anatomical Collection Method Collection Time Re ceived Time Location / / Volume Laterality 06/01/2001 11:17 AM [employer] Narrative 06/02/2001 9:21 AM [employer] 01-Jun-2001 11:17:00 ??Exam: Sp Lmb 3vw AP/Lat/Spt Indications: disk extrusion, laminectomy ORIGINAL REPORT - 02-Jun-2001 09:21:00 LUmbar spine with markers. ([id number]) Electronically signed by: ?? Krystian ??Dionna RUELAS ?? [phone] 02-Jun-2001 0 9:21 Procedure Note Jones Villareal M.D. - 07/08/2017Formatti ng of this note might be different from the original. 01-Jun-2001 11:17:00 Exam: Sp Lmb 3vw AP /Lat/Spt Indications: disk extrusion, laminectomy ORIGINAL REPORT - 02-Jun-2001 09:21:00 LUmbar spine with markers. ([id number]) Electronically signed by: Krystian Villareal MD. [phone] 02-Jun-2001 09:21 Rickie EDWARD DIAGNOSTIC IMAGING PROCE DURES documented in this encounter Visit Diagnoses Not on filedocumented in this encounter
--- OUTSIDE RECORDS SUMMARY | 2021-12-11 08:03 | XMS_ITS | Encounter Summary ---
:1960 Author Organization [facility] Address [address] [place] [address] Care Team Providers Name Role Phone Unavailable Primary Care Provider Unavailable Encounter Details Date Type Department Care Team Description 03/29/2001 Hospital Encounter HX [facility] OWOC SURGERY Conner Schmitt M.D. Social History Tobacco Use Types Packs/Day Years Used Date Smoking Tobacco: Never Assessed Sex Assigned at Date Recorded Not on file documented as of this encounter Plan of Treatment Not on filedocumented as of this encounter Visit Diagnoses Not on filedocumented in this encounter
--- OUTSIDE RECORDS SUMMARY | 2021-12-11 08:03 | XMS_ITS | Encounter Summary ---
:1960 Author Organization [facility] Address [address] [place] [address] Care Team Providers Name Role Phone Unavailable Primary Care Provider Unavailable Encounter Details Date Type Department Care Team Description 05/08/2001 Hospital Encounter HX [facility] OWOC SURGERY Conner Schmitt M.D. Social History Tobacco Use Types Packs/Day Years Used Date Smoking Tobacco: Never Assessed Sex Assigned at Date Recorded Not on file documented as of this encounter Plan of Treatment Not on filedocumented as of this encounter Visit Diagnoses Not on filedocumented in this encounter
--- OUTSIDE RECORDS SUMMARY | 2021-12-11 08:03 | XMS_ITS | Encounter Summary ---
:1960 Author Organization [facility] Address [address] [place] [address] Care Team Providers Name Role Phone Unavailable Primary Care Provider Unavailable Encounter Details Date Type Department Care Team Description 01/27/2001 Hospital Encounter HX [facility] OWOC SURGERY Conner Schmitt M.D. Social History Tobacco Use Types Packs/Day Years Used Date Smoking Tobacco: Never Assessed Sex Assigned at Date Recorded Not on file documented as of this encounter Plan of Treatment Not on filedocumented as of this encounter Visit Diagnoses Not on filedocumented in this encounter
--- OUTSIDE RECORDS SUMMARY | 2021-12-11 08:03 | XMS_ITS | Encounter Summary ---
:1960 Author Organization [facility] Address [address] [place] [address] Care Team Providers Name Role Phone Unavailable Primary Care Provider Unavailable Encounter Details Date Type Department Care Team Description 02/15/2001 Hospital Encounter HX [facility] OWOC SURGERY Conner Schmitt M.D. Social History Tobacco Use Types Packs/Day Years Used Date Smoking Tobacco: Never Assessed Sex Assigned at Date Recorded Not on file documented as of this encounter Plan of Treatment Not on filedocumented as of this encounter Visit Diagnoses Not on filedocumented in this encounter
--- OUTSIDE RECORDS SUMMARY | 2021-12-11 08:03 | XMS_ITS | Encounter Summary ---
:1960 Author Organization [facility] Address [address] [place] [address] Care Team Providers Name Role Phone Unavailable Primary Care Provider Unavailable Encounter Details Date Type Department Care Team Description 2001 Hospital Encounter HX [facility] OWOC SURGERY Conner Schmitt M.D. Social History Tobacco Use Types Packs/Day Years Used Date Smoking Tobacco: Never Assessed Sex Assigned at Date Recorded Not on file documented as of this encounter Plan of Treatment Not on filedocumented as of this encounter Visit Diagnoses Not on filedocumented in this encounter
--- OUTSIDE RECORDS SUMMARY | 2021-12-11 08:03 | XMS_ITS | Encounter Summary ---
:1960 Author Organization [facility] Address [address] [place] [address] Care Team Providers Name Role Phone Unavailable Primary Care Provider Unavailable Encounter Details Date Type Department Care Team Description 08/03/2001 Hospital Encounter HX RST DAILY [facility] Howard Crawley M.D. Social History Tobacco Use Types Packs/Day Years Used Date Smoking Tobacco: Never Assessed Sex Assigned at Date Recorded Not on file documented as of this encounter Plan of Treatment Not on filedocumented as of this encounter Procedures Procedure Name Priority Date/Time Associated Diagnosis Comme nts DX CHEST PORTABLE 1 Routine 08/03/2001 7:30 PM Re sults for this VIEW CDT procedure are i n the results section. documented in this encounter Results DX Chest Portable 1 View (08/03/2001 7:30 PM CDT) Anatomical Region Laterality Modality Chest N/A Radiographic Imaging Specimen (Source) Anatomical Collection Method Collection Time Re ceived Time Location / / Volume Laterality 08/03/2001 7:30 PM CDT Narrative 08/04/2001 10:40 AM CDT 03-Aug-2001 19:30:00 ??Exam: Portable-Chest Indications: Low O2 sats ORIGINAL REPORT - 03-Aug-2001 19:59:00 Bilateral perihilar infiltrate or edema. Mild pulmonary venous hypertension. Electronically signed by: ?? Latrell NOBLES. [phone] ([id number]) 04-Aug-19 02 19:59 I have reviewed the films/images and agr ee with the above interpretation. Electronically signed by: ?? Sarahy Dubois MD. ??[phone] 04-Aug-2001 10:40 Procedure Note Dubois, Munir H, M.D. - 07/08/2017Form atting of this note might be different from the original. 03-Aug-2001 19:30:00 Exam: Portable-Ches t Indications: Low O2 sats ORIGINAL REPORT - 03-Aug-2001 19:59:00 Bilateral perihilar infiltrate or edema. Mild pulmonary venous hypertension. Electronically signed by: Latrell NOBLES. [phone] ([id number]) 04-Aug-19 02 19:59 I have reviewed the films/images and agr ee with the above interpretation. Electronically signed by: Sarahy Dubois MD. [id number] 04-Aug-2001 10 :40 Lita Rodriguez IMJackelyn DIAGNOSTIC IMAGING PROCE DURES documented in this encounter Visit Diagnoses Not on filedocumented in this encounter
--- OUTSIDE RECORDS SUMMARY | 2021-12-11 08:03 | XMS_ITS | Encounter Summary ---
:1960 Author Organization [facility] Address [address] [place] [address] Care Team Providers Name Role Phone Unavailable Primary Care Provider Unavailable Encounter Details Date Type Department Care Team Description 01/23/2001 Hospital Encounter HX [facility] OWOC SURGERY Conner Schmitt M.D. Social History Tobacco Use Types Packs/Day Years Used Date Smoking Tobacco: Never Assessed Sex Assigned at Date Recorded Not on file documented as of this encounter Plan of Treatment Not on filedocumented as of this encounter Visit Diagnoses Not on filedocumented in this encounter
--- OUTSIDE RECORDS SUMMARY | 2021-12-11 08:03 | XMS_ITS | Encounter Summary ---
:1960 Author Organization [facility] Address [address] [place] [address] Care Team Providers Name Role Phone Unavailable Primary Care Provider Unavailable Encounter Details Date Type Department Care Team Description 03/01/2001 Hospital Encounter HX [facility] OWOC SURGERY Conner Schmitt M.D. Social History Tobacco Use Types Packs/Day Years Used Date Smoking Tobacco: Never Assessed Sex Assigned at Date Recorded Not on file documented as of this encounter Plan of Treatment Not on filedocumented as of this encounter Visit Diagnoses Not on filedocumented in this encounter
--- OUTSIDE RECORDS SUMMARY | 2021-12-11 08:03 | XMS_ITS | Encounter Summary ---
:1960 Author Organization [facility] Address [address] [place] [address] Care Team Providers Name Role Phone Unavailable Primary Care Provider Unavailable Encounter Details Date Type Department Care Team Description 03/20/2001 Hospital Encounter HX [facility] OWOC SURGERY Conner Schmitt M.D. Social History Tobacco Use Types Packs/Day Years Used Date Smoking Tobacco: Never Assessed Sex Assigned at Date Recorded Not on file documented as of this encounter Plan of Treatment Not on filedocumented as of this encounter Visit Diagnoses Not on filedocumented in this encounter
--- OUTSIDE RECORDS SUMMARY | 2021-12-11 08:03 | XMS_ITS | Encounter Summary ---
:1960 Author Organization [facility] Address [address] [place] [address] Care Team Providers Name Role Phone Unavailable Primary Care Provider Unavailable Encounter Details Date Type Department Care Team Description 05/16/2001 Hospital Encounter HX [facility] OWOC SURGERY Conner Schmitt M.D. Social History Tobacco Use Types Packs/Day Years Used Date Smoking Tobacco: Never Assessed Sex Assigned at Date Recorded Not on file documented as of this encounter Plan of Treatment Not on filedocumented as of this encounter Visit Diagnoses Not on filedocumented in this encounter
--- OUTSIDE RECORDS SUMMARY | 2021-12-11 08:03 | XMS_ITS | Encounter Summary ---
:1960 Author Organization [facility] Address [address] [place] [address] Care Team Providers Name Role Phone Unavailable Primary Care Provider Unavailable Encounter Details Date Type Department Care Team Description 04/17/2001 Hospital Encounter HX [facility] OWOC SURGERY Conner Schmitt M.D. Social History Tobacco Use Types Packs/Day Years Used Date Smoking Tobacco: Never Assessed Sex Assigned at Date Recorded Not on file documented as of this encounter Plan of Treatment Not on filedocumented as of this encounter Visit Diagnoses Not on filedocumented in this encounter
--- OUTSIDE RECORDS SUMMARY | 2021-12-11 08:03 | XMS_ITS | Encounter Summary ---
:1960 Author Organization [facility] Address [address] [place] [address] Care Team Providers Name Role Phone Unavailable Primary Care Provider Unavailable Encounter Details Date Type Department Care Team Description 10/24/2001 - Hospital Encounter HX RST DAILY CARBALLO Inge Alvarez, 10/25/2001 Alonso Burnett Social History Tobacco Use Types Packs/Day Years Used Date Smoking Tobacco: Never Assessed Sex Assigned at Date Recorded Not on file documented as of this encounter Plan of Treatment Not on filedocumented as of this encounter Procedures Procedure Name Priority Date/Time Associated Diagnosis Comme nts HXGENERAL PATHOLOGY Routine 10/24/2001 7:42 AM Ana alcantara for this REPORT CDT procedure are i n the results section. documented in this encounter Results Hx general Pathology Report (10/24/2001 7:42 AM CDT) Specimen Anatomical Collection Method Collection Time Receive d Time (Source) Location / / Volume Laterality 10/24/2001 7:42 AM 2 7:42 CDT AM CDT Narrative [facility] - 10/24/2001 7:42 AM CDT [id number] Surgical Pathology Requested By: ? Lex chinchilla M.D. ?([id number]) ?? TISSUE DESCRIPTION: ?? Right greater saphenous veins ??(33 x 0.7 x 0.5 cm) ?? DIAGNOSIS: ?? Veins, right greater saphenous, exci antonia: ??Saphenous vein identified. ?? [id number] ?Bernadette Camara M.D.:roberto Procedure Note 06/25/2017 [id number] Surgical Pathology Requested By: Lex Alvarez M.D. ( [id number]) TISSUE DESCRIPTION: Right greater saphenous veins (33 x 0.7 x 0.5 cm) DIAGNOSIS: Veins, right greater saphenous, excisio n: Saphenous vein identified. [id number] Bernadette Camara M.D.:ivory blake Lex Alvarez M.D. LAB PATHOLOGY/CYTOLOGY ORDER JEFF Performing Organization Address City/State/ZIP Code Phon e Number [facility] - [address] [place], [place] [address] [facility] documented in this encounter Visit Diagnoses Not on filedocumented in this encounter
--- OUTSIDE RECORDS SUMMARY | 2021-12-11 08:03 | XMS_ITS | Encounter Summary ---
:1960 Author Organization [facility] Address [address] [place] [address] Care Team Providers Name Role Phone Unavailable Primary Care Provider Unavailable Encounter Details Date Type Department Care Team Description 04/25/2001 Hospital Encounter HX [facility] OWOC SURGERY Conner Schmitt M.D. Social History Tobacco Use Types Packs/Day Years Used Date Smoking Tobacco: Never Assessed Sex Assigned at Date Recorded Not on file documented as of this encounter Plan of Treatment Not on filedocumented as of this encounter Visit Diagnoses Not on filedocumented in this encounter
--- OUTSIDE RECORDS SUMMARY | 2021-12-11 08:03 | XMS_ITS | Encounter Summary ---
:1960 Author Organization [facility] Address [address] [place] [address] Care Team Providers Name Role Phone Unavailable Primary Care Provider Unavailable Encounter Details Date Type Department Care Team Description 06/15/2001 Hospital Encounter HX [facility] OWOC SURGERY Conner Schmitt M.D. Social History Tobacco Use Types Packs/Day Years Used Date Smoking Tobacco: Never Assessed Sex Assigned at Date Recorded Not on file documented as of this encounter Plan of Treatment Not on filedocumented as of this encounter Visit Diagnoses Not on filedocumented in this encounter
--- OUTSIDE RECORDS SUMMARY | 2021-12-11 08:03 | XMS_ITS | Encounter Summary ---
:[address] [facility] Address [address] [place] [address] Care Team Providers Name Role Phone Unavailable Primary Care Provider Unavailable Encounter Details Date Type Department Care Team Description 03/24/2001 Hospital Encounter HX [facility] OWOC SURGERY Conner Schmitt M.D. Social History Tobacco Use Types Packs/Day Years Used Date Smoking Tobacco: Never Assessed Sex Assigned at Date Recorded Not on file documented as of this encounter Plan of Treatment Not on filedocumented as of this encounter Visit Diagnoses Not on filedocumented in this encounter
--- OUTSIDE RECORDS SUMMARY | 2021-12-11 08:03 | XMS_ITS | Encounter Summary ---
:1960 Author Organization [facility] Address [address] [place] [address] Care Team Providers Name Role Phone Unavailable Primary Care Provider Unavailable Encounter Details Date Type Department Care Team Description 03/06/2001 Hospital Encounter HX [facility] OWOC SURGERY Conner Schmitt M.D. Social History Tobacco Use Types Packs/Day Years Used Date Smoking Tobacco: Never Assessed Sex Assigned at Date Recorded Not on file documented as of this encounter Plan of Treatment Not on filedocumented as of this encounter Visit Diagnoses Not on filedocumented in this encounter
--- OUTSIDE RECORDS SUMMARY | 2021-12-11 08:03 | XMS_ITS | Encounter Summary ---
:1960 Author Organization [facility] Address [address] [place] [address] Care Team Providers Name Role Phone Unavailable Primary Care Provider Unavailable Encounter Details Date Type Department Care Team Description 08/03/2001 - Hospital Encounter HX RST DAILY CARBALLO Inge Alvarez, 08/04/2001 Alonso Burnett Social History Tobacco Use Types Packs/Day Years Used Date Smoking Tobacco: Never Assessed Sex Assigned at Date Recorded Not on file documented as of this encounter Plan of Treatment Not on filedocumented as of this encounter Visit Diagnoses Not on filedocumented in this encounter
--- OUTSIDE RECORDS SUMMARY | 2021-12-11 08:03 | XMS_ITS | Encounter Summary ---
:1960 Author Organization [facility] Address [address] [place] [address] Care Team Providers Name Role Phone Unavailable Primary Care Provider Unavailable Encounter Details Date Type Department Care Team Description 08/03/2001 Hospital Encounter HX NO MAPPING Social History Tobacco Use Types Packs/Day Years Used Date Smoking Tobacco: Never Assessed Sex Assigned at Date Recorded Not on file documented as of this encounter Plan of Treatment Not on filedocumented as of this encounter Procedures Procedure Name Priority Date/Time Associated Diagnosis Comme nts HXGENERAL PATHOLOGY Routine 08/03/2001 3:01 PM Re sults for this REPORT CDT procedure are i n the results section. documented in this encounter Results Hx general Pathology Report (08/03/2001 3:01 PM CDT) Specimen Anatomical Collection Method Collection Time Receive d Time (Source) Location / / Volume Laterality 08/03/2001 3:01 PM 2 3:01 CDT PM CDT Narrative [facility] - 08/03/2001 3:01 PM CDT [id number] Surgical Pathology Requested By: ? Lex chinchilla M.D. ?([id number]) ?? TISSUE DESCRIPTION: ?? Veins from left lower leg (7 x 4 x 2 .5 cm in aggregate) ?? DIAGNOSIS: ?? Veins, left lower extremity, vein st ripping: ??Saphenous veins identified grossly. ?? [id number] ?Bernadette Camara M.D.:clk Procedure Note 06/25/2017 03Aug2001 Surgical Pathology Requested By: Lex Alvarez M.D. ([id number]) TISSUE DESCRIPTION: Veins from left lower leg (7 x 4 x 2.5 cm in aggregate) DIAGNOSIS: Veins, left lower extremity, vein strip ping: Saphenous veins identified grossly. 03Aug2001 Bernadette Camara M.D.:c sherlyn Lex Alvarez M.D. LAB PATHOLOGY/CYTOLOGY ORDER JEFF Performing Organization Address City/State/ZIP Code Phon e Number [facility] - [address] [place], [place] [address] [facility] documented in this encounter Visit Diagnoses Not on filedocumented in this encounter
--- OUTSIDE RECORDS SUMMARY | 2021-12-11 08:03 | XMS_ITS | Encounter Summary ---
:1960 Author Organization [facility] Address [address] [place] [address] Care Team Providers Name Role Phone Unavailable Primary Care Provider Unavailable Encounter Details Date Type Department Care Team Description 03/13/2001 Hospital Encounter HX [facility] Conner Schmitt M.D. Social History Tobacco Use Types Packs/Day Years Used Date Smoking Tobacco: Never Assessed Sex Assigned at Date Recorded Not on file documented as of this encounter Plan of Treatment Not on filedocumented as of this encounter Visit Diagnoses Not on filedocumented in this encounter
--- OUTSIDE RECORDS SUMMARY | 2021-12-11 08:03 | XMS_ITS | Encounter Summary ---
:1960 Author Organization [facility] Address [address] [place] [address] Care Team Providers Name Role Phone Unavailable Primary Care Provider Unavailable Encounter Details Date Type Department Care Team Description 10/24/2001 Hospital Encounter HX NO MAPPING Social History Tobacco Use Types Packs/Day Years Used Date Smoking Tobacco: Never Assessed Sex Assigned at Date Recorded Not on file documented as of this encounter Plan of Treatment Not on filedocumented as of this encounter Visit Diagnoses Not on filedocumented in this encounter
--- OUTSIDE RECORDS SUMMARY | 2021-12-11 08:03 | XMS_ITS | Encounter Summary ---
:1960 Author Organization [facility] Address [address] [place] [address] Care Team Providers Name Role Phone Unavailable Primary Care Provider Unavailable Encounter Details Date Type Department Care Team Description 02/10/2001 Hospital Encounter HX [facility] Conner Schmitt M.D. Social History Tobacco Use Types Packs/Day Years Used Date Smoking Tobacco: Never Assessed Sex Assigned at Date Recorded Not on file documented as of this encounter Plan of Treatment Not on filedocumented as of this encounter Visit Diagnoses Not on filedocumented in this encounter
--- OUTSIDE RECORDS SUMMARY | 2021-12-11 08:04 | XMS_ITS | Encounter Summary ---
:1960 Author Organization [facility] Address [address] [place] [address] Care Team Providers Name Role Phone Unavailable Primary Care Provider Unavailable Encounter Details Date Type Department Care Team Description 01/09/2001 Hospital Encounter HX [facility] Conner Schmitt M.D. Social History Tobacco Use Types Packs/Day Years Used Date Smoking Tobacco: Never Assessed Sex Assigned at Date Recorded Not on file documented as of this encounter Plan of Treatment Not on filedocumented as of this encounter Visit Diagnoses Not on filedocumented in this encounter
--- OUTSIDE RECORDS SUMMARY | 2021-12-11 08:04 | XMS_ITS | Encounter Summary ---
:1960 Author Organization [facility] Address [address] [place] [address] Care Team Providers Name Role Phone Unavailable Primary Care Provider Unavailable Encounter Details Date Type Department Care Team Description 12/26/2000 Hospital Encounter HX [facility] Conner Schmitt M.D. Social History Tobacco Use Types Packs/Day Years Used Date Smoking Tobacco: Never Assessed Sex Assigned at Date Recorded Not on file documented as of this encounter Plan of Treatment Not on filedocumented as of this encounter Visit Diagnoses Not on filedocumented in this encounter
--- OUTSIDE RECORDS SUMMARY | 2021-12-11 08:04 | XMS_ITS | Encounter Summary ---
:1960 Author Organization [facility] Address [address] [place] [address] Care Team Providers Name Role Phone Unavailable Primary Care Provider Unavailable Encounter Details Date Type Department Care Team Description 12/12/2000 Hospital Encounter HX [facility] Conner Schmitt M.D. Social History Tobacco Use Types Packs/Day Years Used Date Smoking Tobacco: Never Assessed Sex Assigned at Date Recorded Not on file documented as of this encounter Plan of Treatment Not on filedocumented as of this encounter Visit Diagnoses Not on filedocumented in this encounter
--- OUTSIDE RECORDS SUMMARY | 2021-12-11 08:04 | XMS_ITS | Encounter Summary ---
:1960 Author Organization [facility] Address [address] [place] [address] Care Team Providers Name Role Phone Unavailable Primary Care Provider Unavailable Encounter Details Date Type Department Care Team Description 01/13/2001 Hospital Encounter HX [facility] Conner Schmitt M.D. Social History Tobacco Use Types Packs/Day Years Used Date Smoking Tobacco: Never Assessed Sex Assigned at Date Recorded Not on file documented as of this encounter Plan of Treatment Not on filedocumented as of this encounter Visit Diagnoses Not on filedocumented in this encounter
--- OUTSIDE RECORDS SUMMARY | 2021-12-11 08:04 | XMS_ITS | Encounter Summary ---
:1960 Author Organization [facility] Address [address] [place] [address] Care Team Providers Name Role Phone Unavailable Primary Care Provider Unavailable Encounter Details Date Type Department Care Team Description 12/15/2000 Hospital Encounter HX [facility] Conner Schmitt M.D. Social History Tobacco Use Types Packs/Day Years Used Date Smoking Tobacco: Never Assessed Sex Assigned at Date Recorded Not on file documented as of this encounter Plan of Treatment Not on filedocumented as of this encounter Visit Diagnoses Not on filedocumented in this encounter
--- OUTSIDE RECORDS SUMMARY | 2021-12-11 08:04 | XMS_ITS | Encounter Summary ---
:1960 Author Organization [facility] Address [address] [place] [address] Care Team Providers Name Role Phone Unavailable Primary Care Provider Unavailable Encounter Details Date Type Department Care Team Description 01/02/2001 Hospital Encounter HX [facility] Conner Schmitt M.D. Social History Tobacco Use Types Packs/Day Years Used Date Smoking Tobacco: Never Assessed Sex Assigned at Date Recorded Not on file documented as of this encounter Plan of Treatment Not on filedocumented as of this encounter Visit Diagnoses Not on filedocumented in this encounter
--- OUTSIDE RECORDS SUMMARY | 2021-12-11 08:04 | XMS_ITS | Encounter Summary ---
:1960 Author Organization [facility] Address [address] [place] [address] Care Team Providers Name Role Phone Unavailable Primary Care Provider Unavailable Encounter Details Date Type Department Care Team Description 12/09/2000 Hospital Encounter HX [facility] Conner Schmitt M.D. Social History Tobacco Use Types Packs/Day Years Used Date Smoking Tobacco: Never Assessed Sex Assigned at Date Recorded Not on file documented as of this encounter Plan of Treatment Not on filedocumented as of this encounter Visit Diagnoses Not on filedocumented in this encounter
--- OUTSIDE RECORDS SUMMARY | 2021-12-11 08:04 | XMS_ITS | Encounter Summary ---
:1960 Author Organization [facility] Address [address] [place] [address] Care Team Providers Name Role Phone Unavailable Primary Care Provider Unavailable Encounter Details Date Type Department Care Team Description 01/05/2001 Hospital Encounter HX [facility] Conner Schmitt M.D. Social History Tobacco Use Types Packs/Day Years Used Date Smoking Tobacco: Never Assessed Sex Assigned at Date Recorded Not on file documented as of this encounter Plan of Treatment Not on filedocumented as of this encounter Visit Diagnoses Not on filedocumented in this encounter
--- OUTSIDE RECORDS SUMMARY | 2021-12-11 08:04 | XMS_ITS | Encounter Summary ---
:1960 Author Organization [facility] Address [address] [place] [address] Care Team Providers Name Role Phone Unavailable Primary Care Provider Unavailable Encounter Details Date Type Department Care Team Description 12/19/2000 Hospital Encounter HX [facility] Conner Schmitt M.D. Social History Tobacco Use Types Packs/Day Years Used Date Smoking Tobacco: Never Assessed Sex Assigned at Date Recorded Not on file documented as of this encounter Plan of Treatment Not on filedocumented as of this encounter Visit Diagnoses Not on filedocumented in this encounter
--- OUTSIDE RECORDS SUMMARY | 2021-12-11 08:04 | XMS_ITS | Encounter Summary ---
:1960 Author Organization [facility] Address [address] [place] [address] Care Team Providers Name Role Phone Unavailable Primary Care Provider Unavailable Encounter Details Date Type Department Care Team Description 01/17/2001 Hospital Encounter HX [facility] Conner Schmitt M.D. Social History Tobacco Use Types Packs/Day Years Used Date Smoking Tobacco: Never Assessed Sex Assigned at Date Recorded Not on file documented as of this encounter Plan of Treatment Not on filedocumented as of this encounter Visit Diagnoses Not on filedocumented in this encounter
--- OUTSIDE RECORDS SUMMARY | 2021-12-11 08:05 | XMS_ITS | Clinical Summary ---
:1960 Author Organization [facility] Address [address] [place] [address] Care Team Providers Name Role Phone SahuMunir Primary Care Provider Allergies Active Allergy Reactions Severity Noted Date Comments Glyburide Other (See Comments) Medium 11/06/2019 Lighthe adedness Nuts Rash Medium 11/06/2019 HORSE-CHESTNUT Silver Rash Low 11/05/2019 Medications Medication Sig Dispensed Refills Start Date End Date Status torsemide (DEMADEX) Take 10-20 mg by 0 Active 10 MG mouth daily as tabletIndications: needed Hypertension metFORMIN Take 1,000 mg by 0 Act radha (GLUCOPHAGE-XR) 500 mouth daily (Takes MG 24 hr tablet 2 x 500mg) acetaminophen Take 3 tablets (975 0 11/07/2019 Active (TYLENOL) 325 MG mg) by mouth every tabletIndications: 6 hours as needed Prostate cancer (H) for pain oxyCODONE Take 1-2 tablets 15 tablet 0 11/07/2019 Ac tive (ROXICODONE) 5 MG (5-10 mg) by mouth tabletIndications: every 3 hours as Prostate cancer (H) needed for breakthrough pain senna-docusate Take 1 tablet by 30 tablet 1 11/07/2019 Active (SENOKOT-S/PERICOLACE mouth 2 times daily ) 8.6-50 MG as needed for tabletIndications: constipation Prostate cancer (H) Active Problems Problem Noted Date Prostate cancer 11/06/2019 Social History Tobacco Use Types Packs/Day Years Used Date Never Smoker Smokeless Tobacco: Never Used Alcohol Use Standard Drinks/Week Comments Yes 0 (1 standard drink = 0.6 oz pure alcoho l) occassional Alcohol Habits Answer Date Recorded How often do you have a drink containing alcohol? Not asked How many drinks containing alcohol do you have on a typical Not asked day when you are drinking? How often do you have six or more drinks on one occasion? No t asked Comment: occassional 11/06/2019 Sex Assigned at Date Recorded Not on file Last Filed Vital Signs Vital Sign Reading Time Taken Comments Blood Pressure 133/60 11/07/2019 3:23 PM CDT Pulse 61 11/06/2019 4:15 PM CDT Temperature 36.7 ??C (98.1 ??F) 11/07/2019 3:23 PM CDT Respiratory Rate 16 11/07/2019 3:23 PM CDT Oxygen Saturation 95% 11/07/2019 3:23 PM CDT Inhaled Oxygen Concentration - - Weight 134.9 kg (297 lb 8 oz) 11/06/2019 5:51 AM CDT Height 177.8 cm (5' 10) 11/06/2019 5:51 AM CDT Body Mass Index 42.69 11/06/2019 5:51 AM CDT Plan of Treatment Health Maintenance Due Date Last Done Comments ADVANCE CARE PLANNING 1960 ANNUAL REVIEW OF HM ORDERS 1960 CT COLONOGRAPHY 1960 FIT-DNA (Cologuard) 1960 FIT 1960 FLEX SIG 1960 PREVENTIVE CARE VISIT 1960 COVID-19 Vaccine (#1) 1960 COLONOSCOPY 1971 COLORECTAL CANCER SCREENING 1971 HIV SCREENING 02/08/1976 HEPATITIS C SCREENING 1979 DTAP/TDAP/TD IMMUNIZATION (1 - 1986 Tdap) LIPID 02/08/1996 ZOSTER IMMUNIZATION (1 of 2) 2011 PHQ-2 (once per calendar year) 2021 INFLUENZA VACCINE (#1) 2021 HEPATITIS B IMMUNIZATION Aged Out No long er eligible based on patient's age to complete this topic IPV IMMUNIZATION Aged Out No longer eligi ble based on patient's age to complete this topic MENINGITIS IMMUNIZATION Aged Out No longe r eligible based on patient's age to complete this topic Pneumococcal Vaccine: Pediatrics Aged Out No longer eligible based on (0 to 5 Years) and At-Risk patie nt's age to complete this Patients (6 to 64 Years) topic Insurance Payer Benefit Plan / Subscriber ID Effective Phone Address T ype Group Dates [facility] [id number] 2019-Peggy [phone] [address] [facility] [address] [place] [address] (Home) [place] [address] Advance Directives For more information, please contact: [phone] Latest Code Status on File Code Status Date Activated Date Inactivated Comments Full Code 11/06/2019 2:19 PM 11/07/2019 9:06 PM All basic and advanced life-sustaining interventions ar e performed as appropriate Code status determined by: Unable to determine; FULL C ODE until documents or legal decision maker available Care Teams 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
--- OUTSIDE RECORDS SUMMARY | 2021-12-11 08:05 | XMS_ITS | Encounter Summary ---
:1960 Author Organization [place] Address [facility] [place] [address] Care Team Providers Name Role Phone SahuMunir mullen A Primary Care Provider Reason for Visit Auth/Cert Specialty Diagnoses / Procedures Referred By Contact Refer red To Contact Surgery Diagnoses Prostate cancer (H) Prostate cancer (H) [C61] Sh Periop Services Procedures C LAPAROSCOPY, SURGICAL PROSTATECTOMY, RETROPUBIC RADICAL, W/NERVE SPARING ROBOT ASSISTED LAPAROSCOPIC PROSTATECTOMY AND PELVIC LYMPH NODE DISSECTION [address] [place] [address] Phone: Referral ID Status Reason Start Date Expiration Date Visits Requ ested Visits Authorized [id number] 1 1 Encounter Details Date Type Department Care Team Description 11/06/2019 - [facility], Prostate cancer (H) 11/07/2019 Encounter [place] [id number] Rosanna Damian MD (Primary Dx) [facility] [address] [place], [place] [address] [address] [phone] [place], [place] [address] Social History Tobacco Use Types Packs/Day Years [...] Assigned at Date Recorded Not on file COVID-19 Exposure Response Date Recorded In the last month, have you been in contact with No / Unsure 11/06/2019 5:09 AM CDT someone who was confirmed or suspected to have Coronavirus / COVID-19? documented as of this encounter Last Filed [...] Mass Index 42.69 11/06/2019 5:51 AM CDT documented in this encounter Medications at Time of Discharge Medication Sig Dispensed Refills Start Date End Date acetaminophen (TYLENOL) Take 3 tablets (975 0 08/2019 325 MG mg) by mouth every 6 tabletIndications: hours as needed for Prostate cancer (H) pain metFORMIN Take 1,000 mg by mouth 0 (GLUCOPHAGE-XR) 500 MG daily (Takes 2 x 24 hr tablet 500mg) oxyCODONE (ROXICODONE) Take 1-2 tablets (5-10 15 tablet 0 0 11/07/2019 5 MG tabletIndications: mg) by mouth every 3 Prostate cancer (H) hours as needed for breakthrough pain senna-docusate Take 1 tablet by mouth 30 tablet 1 0 (SENOKOT-S/PERICOLACE) 2 times daily as 8.6-50 MG needed for tabletIndications: constipation Prostate cancer (H) torsemide (DEMADEX) 10 Take 10-20 mg by mouth 0 MG tabletIndications: daily as needed Hypertension ciprofloxacin (CIPRO) Take 1 tablet (500 mg) 6 tablet 0 11/10/2019 500 MG by mouth 2 times daily tabletIndications: for 3 days Start Prostate cancer (H) taking the day before catheter removal documented as of this encounter Progress Notes Juan Lowe PA-C - 11/07/2019 10:24 AM CDT [facility] Urology Progress Note Assessment & Plan Jose Guadalupe Ridley is a 59 year old male POD#1 RALP for prostate cancer. Stable. Pain controlled. Ambulating. Tolerating clears. LOC 80 from LOC. 2350 UOP. Discharge instructions and follow up discussed. Plan: ?? Continue palmer. DO NOT REMOVE. ?? RN to teach palmer cares and provide leg bag ?? Ambulate, IS ?? ADAT ?? Send LOC Creat. Can remove if similar to serum creat. ?? Likely home later today if ambulating and continuing to tolerate PO ?? Follow up in two weeks for palmer removal ?? Home with oxy, senokot, and cipro x3 days for palmer removal Juan Lowe PA-C 11/07/2019 10:24 AM [facility] Mon-Tue, 7am - 4pm Office: [phone] Interval History Walked once last night. Tolerating some clears today but not much appetite beyond that. No nausea. Feels like a big stomach ache where his incisions were. No chest pain, dyspnea, or calf pain. Physical Exam Temp: 97 ??F (36.1 ??C) Temp src: Oral BP: 126/54 Pulse: 61 Heart Rate: 73 Resp: 16 SpO2: 97 % O2 Device: None (Room air) Oxygen Delivery: 2 LPM Vitals: 11/06/19 0551 Weight: 134.9 kg (297 lb 8 oz) Vital Signs with Ranges Temp: [96 ??F (35.6 ??C)-98.6 ??F (37 ??C)] 97 ??F (36.1 ??C) Pulse: [58-81] 61 Heart Rate: [59-85] 73 Resp: [7-28] 16 BP: (123-159)/(54-96) 126/54 SpO2: [88 %-98 %] 97 % I/O last 3 completed shifts: In: 1999 [I.V.:2000] Out: 2580 [Urine:2350; Drains:80; Blood:150] General: Patient awake, alert, NAD, sitting up in bed Head: Normocephalic, atraumatic Eyes: No icterus Neck: Symmetric Respiratory: Breathing unlabored Cardiac: Skin well-perfused GI: Obese, soft, appropriately tender, non-distended, LOC serosang Genitourinary: Palmer in place draining brayden urine, No penoscrotal edema Skin: Incisions CDI with dermabond, no visible rashes Extremities: stasis dermatitis, no calf pain Neurologic: No focal deficits Neuropsychiatric: A&O x 3, responding appropriately Medications ??? sodium chloride 100 mL/hr at 11/07/19 0352 ??? acetaminophen 975 mg Oral Q6H ??? metFORMIN 1,000 mg Oral Daily ??? sodium chloride (PF) 3 mL Intracatheter Q8H Data Results for orders placed or performed during the hospital encounter of 11/06/19 (from the past 24 hour(s)) Glucose by meter Result Value Ref Range Glucose 211 (H) 70 - 99 mg/dL Basic metabolic panel Result Value Ref Range Sodium 140 133 - 144 mmol/L Potassium 4.0 3.4 - 5.3 mmol/L Chloride 106 94 - 109 mmol/L Carbon Dioxide 30 20 - 32 mmol/L Anion Gap 4 3 - 14 mmol/L Glucose 165 (H) 70 - 99 mg/dL Urea Nitrogen 12 7 - 30 mg/dL Creatinine 0.81 0.66 - 1.25 mg/dL GFR Estimate >90 >60 mL/min/[1.73_m2] GFR Estimate If Black >90 >60 mL/min/[1.73_m2] Calcium 8.1 (L) 8.5 - 10.1 mg/dL Hemoglobin Result Value Ref Range Hemoglobin 14.1 13.3 - 17.7 g/dL Mervat Astudillo - 11/05/2019 7:40 PM CDT [employer] medications updated by Medication Scribe prior to surgery via phone call with patient -LAST DOSES ENTERED BY NURSE- Medication history sources: Patient, Surescripts and H&P Medication history source reliability: Good Adherence assessment: N/A Not Observed Significant changes made to the medication list: None Additional medication history information: None Prior to Admission medications Medication Sig Last Dose Taking? Auth Provider metFORMIN (GLUCOPHAGE-XR) 500 MG 24 hr tablet Take 1,000 mg by mouth daily (Takes 2 x 500mg) Yes Reported, Patient tamsulosin (FLOMAX) 0.4 MG capsule Take 0.4 mg by mouth daily Yes Reported, Patient torsemide (DEMADEX) 10 MG tablet Take 10-20 mg by mouth daily as needed at PRN Yes Reported, Patient documented in this encounter Procedure Notes Rosanna Mckinley MD - 11/06/2019 1:08 PM CDT Preoperative Diagnosis: Prostate Cancer Postoperative Diagnosis: Prostate Cancer ?? Procedure: 1. Robotic Radical Prostatectomy with bilateral pelvic lymphadenectomy Surgeon: Rosanna Mckinley MD Debt Management Counselor: Juan Lowe PA-C Date of Procedure: 11/06/19 OPERATIVE INDICATION: Jose Guadalupe Ridley 59 year old male with prostate cancer. After understanding various management options he elected to undergo today's procedure. Clinical stage: cT1c PSA: 6.5 CONSTANZA: cT1c, 35g MRI findings: No dominant lesion Prostate volume: 26 g EPE: unlikely SVI: unlikely Urethral length: n/a LNI: unlikely Biopsy grade: 3+4=7 # cores positive: 3 # cores total: 12 Intraoperative findings: Urethra: good length preserved Right nerve sparing: partial Left nerve sparing: partial Bladder neck sparing: near complete Bladder neck reconstruction: none Anastomosis tested: yes, watertight at 60 mL Lymphadenopathy: left external iliac Accessory obturator artery/size/spared: right, small, spared Description of procedure: ? The patient was identified and was brought to the operating room. ??He was placed on a Gelfoam padded table. ??After adequate general anesthesia, he was placed in supine position. ??Pneumatic compression stockings had been applied. ??All pressure points were adequately padded. ??Arms were tucked and he was secured to the table.?The patient was then prepped and draped in the usual manner. ??Time out was called. ??An 18 Swedish aplmer catheter was placed with in the sterile field and the bladder was emptied. ??I made a small supra umbilical incision. ??Using a Veress needle, pneumoperitoneum was achieved. ??I then placed an 8 mm port at this site. ??Initial endoscopic inspection with a 0 degree lens showed a small adhesion of sigmoid to the bladder and sigmoid to the LLQ. ??The remaining ports were then placed. ??Two 8 mm ports were placed on either side 8 cm from the umbilical port. ??A 12 mm port was placed in the right lower quadrant above the anterior superior iliac spine, and a similar location on the left side an 8 mm port was placed. ??A 5 mm suction port was placed lateral to the cameraport on the right side. ??With all the ports in place the patient was placed in steep trendelenburg position and the robot was docked. ? A few adhesions of the sigmoid were released from the LLQ. ??I then incised the peritoneum at the bladder base and the posterior dissection was carried beneath Denonvillier's fascia to the prostate apex. ??The seminal vesicles and vas deferens were identified and dissected free.??Next peritoneal incisions were made lateral to the medial umbilical ligaments and the bladder was dissected away from the anterior abdominal wall and pubic ramus to expose the prostate. ??The superficial dorsal vein was cauterized and transected. The endopelvic fascia was opened. ? Next the anterior bladder wall was incised at the level of the bladder neck. The posterior bladder neck was then excised and dissected away from the base of the prostate. ??The previously dissected seminal vesicles and vas deferens were now brought into view. ??These structures were then tented up. ??The plane between the prostate and the rectum was further dissected up to the apex of the prostate. ??This exposed the lateral pedicles. ? I then proceeded to identify the plane between the lateral prostate and the lateral pedicles. Hem-O-Kasia clips were used and the lateral pedicle was transected. ??Electro Cautery was not used in this area. ??Partial bilateral nerve preservation was??performed. There was no obvious extraprostatic disease. The dissection was carried around the apex of the prostate. ??Next I transected the deep dorsal vein and then oversewed this with a running 3-0 V-kasia suture. The urethra was transected distal to the apex of the prostate and the prostate was placed in a Endocatch. Excellent urethral length was preserved. ? A bilateral pelvic lymph node dissection was done, removing fibrofatty tissue in the external iliac and obturator areas. Bipolar cautery and hemolock clips were used to ligate lymphatic vessels. ??The obturator nerve was identified and preserved bilaterally. The left external iliac nodes were firm. ?? I then??proceeded to anastomose??the bladder neck to the urethra using a running suture of 3-0 Monocryl on a double armed needle. ??An 18??hungarian??catheter was placed and the bladder irrigated well. ??A good watertight, tension free anastasmosis was obtained. ??Further inspection at this time showed no further bleeding. ?? Patricio-Seal was used to enhance hemostasis. The string of the Endocatch??was thenbrought out through the umbilical port site. ?The robot was then undocked. ?I slightly extended the supraumbilical incision and the prostate was removed through this site. ??The fascia was then closed using running 0 Vicryl sutures. ??The skin incisions were closed using 4-0 monocryl and Exofin.??The Truman Diaz was secured to the skin with a silk stitch. ??The needle, sponge and lap counts were correct. ??The patient remained stable throughout the entire procedure. ??The estimated blood loss was: 150 ml. The patient tolerated the procedure well and was sent to the recovery room in stable condition. ? Catheter can be removed in 10 days with cystogram documented in this encounter Nursing Notes Zulema Lewis RN - 11/06/2019 6:33 AM CDT Pt's covid result was was swabbed 10/31, came back neg on the 11/03.Pt is asymptomatic.Per Fartun Tan to proceed with surgery. documented in this encounter Miscellaneous Notes Plan of Care - Esther Leal RN - 11/07/2019 7:06 PM CDT Pt discharged to home with spouse. Palmer teaching completed. PIV removed on previous shift. Paperwork completed. Belongings and prescriptions sent with pt. Plan of Care - Madhuri Ruby RN - 11/07/2019 12:43 PM CDT Up with SBA in halls. LOC Palmer in place. Tolerating small PO intake. Plan to discharge this afternoon Plan of Care - Janine Guaman RN - 11/07/2019 6:15 AM CDT POD1. A&Ox4. VSS except slight HTN, 2L NC, TIMBER CUTTER. Complains of incisional pain; controlled with scheduled Tylenol/PRN oxycodone x 1 this shift. 4 lap sites with liquid bandage. L LOC with bloody output. Palmer in-place with joshi red urine, no clots noted. SBA. BS hypoactive, - flatus. Tolerating full liquid diet without problems. PIV infusing NS @ 100 mL/hr. Discharge pending progress; will discharge with Steph, teaching started. Plan of Care - Cora Hutchins RN - 11/06/2019 10:26 PM CDT POD0. Pt arrived from PACU @ 1600. VSS on 2L, on cont pulse ox as pt refused capno. C/o incisional pain, managed with scheduled tylenol and PRN oxy x1. LOC draining BRB. Palmer patent draining joshi redurine, adequate ouput. Ambulated in halls x1 with SBA, tolerated well. BS absent. Full liquid diet, tolerated well. NS infusing @ 100/hr. Palmer teaching started. Plan to discharge home tomorrow with palmer. will transport. documented in this encounter Plan of Treatment Not on filedocumented as of this encounter Procedures Procedure Name Priority Date/Time Associated Comments Diagnosis CREATININE FLUID Routine 11/07/2019 10:15 AM Prostate cancer ( H) Results for this CDT procedure are i n the results section. HEMOGLOBIN Routine 11/07/2019 7:21 AM Prostate cancer (H) Re sults for this CDT procedure are i n the results section. BASIC METABOLIC Routine 11/07/2019 7:21 AM Prostate cancer (H) Results for this PANEL CDT procedure are i n the results section. GLUCOSE BY METER Routine 11/06/2019 1:37 PM Prostate cancer (H ) Results for this CDT procedure are i n the results section. SURGICAL PATHOLOGY Routine 11/06/2019 9:30 AM Res ults for this EXAM CDT procedure are i n the results section. PROSTATECTOMY, 11/06/2019 7:30 AM Prostate cancer (H) ROBOT-ASSISTED, CDT LAPAROSCOPIC, USING DA SHEEBA XI Special Needs 10/29 Will have testing done 11/01 in [place]. Will fax results to [phone] ID GLUCOSE BY METER Routine 11/06/2019 7:09 AM CDT R esults for this procedure are in the resu lts section. ABO/RH TYPE AND SCREEN STAT 11/06/2019 6:37 AM CDT Results for this procedure are in the resu lts section. LAB RESULT - HIM SCAN 11/01/2019 12:00 AM CDT LAB RESULT - HIM SCAN 11/01/2019 12:00 AM CDT documented in this encounter Results Creatinine fluid (11/07/2019 10:15 AM CDT) Analysis Performed At Patho logist Time Signature Creatinine LOC FLUID 11/07/2019 REPLACED BY [facility] Fluid Source 10:55 AM CDT [facility] Creatinine 0.7 mg/dL 11/07/2019 [facility] Fluid 11:19 AM CDT [facility] Comment: No reference ranges have been establishe d. ??This result should be interpreted in the context of the patient's clinical condition and compared to simultaneous measurement in the patient' s blood. ??Refer to Lab Guide for specific interpretive guidelines. Specimen Anatomical Collection Method Collection Time Receive d Time (Source) Location / / Volume Laterality Drainage fluid 11/07/2019 10:15 0 sample AM CDT 10:54 AM CDT (specimen) uJan Lowe PA-C LAB - BODY FLUIDS ORDERABLES Performing Organization Address City/State/ZIP Code Phon e Number [facility] [address] [place] [address] [phone] [facility] [address] [place] [address], [place] [phone] Hemoglobin (11/07/2019 7:21 AM CDT) athologist Signature Hemoglobin 14.1 13.3 - 17.7 11/07/2019 [place] g/dL 7:33 AM CDT [facility] Specimen Anatomical Collection Method Collection Time Receive d Time (Source) Location / / Volume Laterality Blood specimen 11/07/2019 7:21 AM 020 7:22 (specimen) CDT AM CDT Juan Lowe PA-C LAB - BLOOD ORDERABLES Performing Organization Address City/State/ZIP Code Phon e Number [facility] [address] [place] [address] [facility] [address] [place] [address], [place] [phone] (ABNORMAL) Basic metabolic panel (11/07/2019 7:21 AM CDT) athologist Signature Sodium 140 133 - 144 11/07/2019 [place] mmol/L 7:48 AM CDT [facility] Potassium 4.0 3.4 - 5.3 11/07/2019 [place] mmol/L 7:48 AM CDT [facility] Chloride 106 94 - 109 11/07/2019 [place] mmol/L 7:48 AM CDT [facility] Carbon Dioxide 30 20 - 32 11/07/2019 [place] mmol/L 7:52 AM CDT [facility] Anion Gap 4 3 - 14 11/07/2019 [facility] mmol/L 7:52 AM [facility] Glucose 165 (H) 70 - 99 11/07/2019 [place] mg/dL 7:52 AM [facility] Urea Nitrogen 12 7 - 30 11/07/2019 [place] mg/dL 7:52 AM [facility] Creatinine 0.81 0.66 - 11/07/2019 [place] 1.25 mg/dL 7:52 AM [facility] GFR Estimate >90 >60 11/07/2019 [place] mL/min/{1. 7:52 AM [facility] 73_m2} [facility]OSP[facility] Comment: Non GFR Calc Starting 03/21/2018, serum creatinine ba sed estimated GFR (eGFR) will be calculated using the Chronic Kidney Dise [facility] Epidemiology Collaboration (CKD-EPI) equation. GFR Estimate If >90 >60 mL/min/{1.73_m2} 11/07/2019 7: [address] [facility] Comment: GFR Calc Starting 03/21/2018, serum creatinine ba sed estimated GFR (eGFR) will be calculated using the Chronic Kidney Dise [facility] Epidemiology Collaboration (CKD-EPI) equation. Calcium 8.1 (L) 8.5 - 10.1 mg/dL 11/07/2019 7:52 AM [facility] Specimen Anatomical Collection Method Collection Time Receive d Time (Source) Location / / Volume Laterality Blood specimen 11/07/2019 7:21 AM 020 7:22 (specimen) CDT AM CDT Juan Lowe PA-C LAB - BLOOD ORDERABLES Performing Organization Address City/State/ZIP Code Phon e Number [facility] [address] [place] [address] [phone] [facility] [address] [place] [address], [facility] [phone] (ABNORMAL) Glucose by meter (11/06/2019 1:37 PM CDT) P athologist Signature Glucose 211 (H) 70 - 99 11/06/2019 POINT OF CARE mg/dL 1:43 PM CDT TEST, GLUCOSE Specimen Anatomical Collection Method Collection Time Receive d Time (Source) Location / / Volume Laterality 11/06/2019 1:37 PM 0 1:43 CDT PM CDT Rosanna Mckinley MD [facility] POCT Performing Organization Address City/State/ZIP Code Phon e Number [facility] POINT OF CARE TEST, GLUCOSE POINT OF CARE TEST, GLUCOSE Surgical pathology exam (11/06/2019 9:30 AM CDT) Component Value Ref Test Analysis Performed At [facility] Range Method Time Signature Copath Report Patient Name: JOSE GUADALUPE RIDLEY MR#: [id number] Specimen #: [id number] Collected: 11/06/2019 Received: 11/06/2019 Reported: 11/07/2019 14:51 Ordering Phy(s): ROSANNA MCKINLEY For improved result formatting, select 'View Enhanced Report Format' under Linked Documents section. SPECIMEN(S): A: Right pelvic lymph nodes B: Periprostatic fat C: Left pelvic lymph nodes with clips D: Prostate FINAL DIAGNOSIS: A: Lymph nodes, right pelvic, biopsy: - Negative for malignancy (4 lymph nodes). B: Soft tissue, periprostatic fat, biopsy: - Negative for malignancy. C: Lymph nodes, left pelvic, biopsy: - Negative for malignancy (8 lymph nodes). D: Prostate, radical prostatectomy: - Adenocarcinoma, acinar type, grade group 2 (Baltimore score 3 + 4 = 7 of 10). - Inked surgical margins negative for tumor (see comment). - Extraprostatic extension not identified. - See synoptic summary for further details. COMMENT: As seen on the left anterior inferior prostate sect ion, there is a 1 mm length in which tumor cells trail to within 0.1 mm of the inked surgical margin, but are not present directly on the inked surgical margin. Report Name: Prostate - Radical Prostatectomy ? Status: Submitted Checklist Inst: 1 ?Las t Updated By: Chino Newell M.D., 11/07/2019 14:50:57 Part(s) Involved: D: Prostate Synoptic Report: SPECIMEN ??Procedure: ?- Radical prostatectomy TUMOR ??Histologic Type: ?- Acinar adenocarcinoma ??Histologic Grade ?Grade Group and Baltimore Score: ?- Grade group 2 (Heidy Score 3 + 4 = 7) ?Percentage of Pattern 4: 30% ??Extraprostatic Extension (EPE): ?- Not identified ??Urinary Bladder Neck Invasion: ?- Not identified ??Seminal Vesicle Invasion: ?- Not identified ??Treatment Effect: ?- No known presurgical therapy MARGINS ??Margins: ?- Uninvolved by invasive carcinoma LYMPH NODES ??Number of Lymph Nodes Involved: ?- 0 ??Number of Lymph Nodes Examined: 12 PATHOLOGIC STAGE CLASSIFICATION (PTNM, AJCC 8TH EDITION) ??Primary Tumor (pT): ?- pT2 ??Regional Lymph Nodes (pN): ?- pN0 CAP eCC November 2018 Agile Release Electronically signed out by: Chino Newell M.D. GROSS: A. The specimen is received in formalin with the patient's n josé miguel and proper identification labeled right pelvic lymph nodes . ??The specimen consists of yellow fatt y tissue fragments measuring 5.6 x 2.5 x 1.3 cm in aggregate. ??The specimen is dissected for lymph nodes. ??Th ere are four possible lymph nodes identified ranging from 0.4 cm up to 4.4 x 1.4 x 0.7 cm. ??The lymph nodes are entirely submitted in six cassettes. Summary of Sections: A1 - two possible lymph nodes A2 - one bisected lymph node A3-A6 - complete lymph node B The specimen is received in formalin with proper patient i dentification labeled periprostatic fat. ??The specimen consists of yellow fatty tissue fragments measuring 2.6 x 1.7 x 0.5 cm in aggregate. ??The specimen is entirely submitted in one cassette. C. ??The specimen is received in formalin with the patient's name and proper identification labeled left pelvic lymph nodes. ??The specimen consists of yellow fatty tissue fragments measuring 5.1 x 3.5 x 1.3 cm in aggregate. ??Eight possible lymph nodes are identified rangi ng from 0.7 cm up to 3.5 x 1.4 x 0.5 cm. ??Lymph nodes are entirely submitted in eight cassettes. Summary of Sections: C1 - two possible lymph nodes C2 - two possible lymph nodes C3 - two possible lymph nodes C4 - one lymph node C5-C8 - complete lymph nodes D The specimen is received in formalin and labeled prostate with the patient's name and proper identification. ??The specimen consists of 33 gram prostate (4.4 cm from right to left, 3.5 cm from anterior to posterior and 3.3 cm from superior to inferior) with bail attacher d right seminal vesicle (3.1 x 1.7 x 1.0 cm) and left seminal vesicle (2.5 x 1.4 x 1.0 cm). ??The specimen is oriented and inked blue for right and black for left. ??The apex and bladder neck are coned. ??The remaining specimen is serially sectioned from inferior to superior. ??On section, the specimen has a pink-little fibromus cular center throughout. ??There is no evidence of grossly obvious tumor identified. ??Transfer Agent sections are submitted in 18 cassettes. Cassette 1: Right apex Cassette 2: Left apex Cassettes 3-5: Right anterior quadrant from inferior to supe rior Cassettes 6-8: Right posterior quadrant from inferior to sup erior Cassettes 9-11: Left anterior quadrant from inferior to supe rior Cassettes 12-14: Left posterior quadrant from inferior to mccall perior Cassette 15: Right bladder neck cone Cassette 16: Left bladder neck cone Cassette 17: Right seminal vesicle Cassette 18: Left seminal vesicl (Dictated by: Shawn devine 11/06/2019 02:08 PM)e MICROSCOPIC: A: Sections demonstrate multiple (4) lymph nodes negative fo r malignancy. B: Sections demonstrate benign fibroadipose tissue. ??Ther e is no prostatic tissue present. C: Sections demonstrate multiple (8) lymph nodes negative fo r malignancy. D: Sections demonstrate acinar type adenocarcinoma. ??The tu mor involves approximately 15% of the prostate tissue. ??The primary architectural pattern (approximately 7 0% of the tumor) is Baltimore pattern 3, and the secondary architectural pattern (approximately 30% of the tu mor) is Baltimore pattern 4. ??Perineural invasion is identified. ??Lymphovascular invasion is not identified. ? ?The tumor is not present at the inked resection margins. ??As seen on D9 (left anterior inferior), there is a 1 mm length in which tumor cells trail to within 0.1 mm of the black inked surgical margin, but are not prese nt on the inked surgical margin. ??Extraprostatic extension is not present. ??Urinary bladder neck invasion is identified. ?? The tumor does not involve the muscular rivers of the bilateral seminal vesicles. The technical component of this testing was completed at the [facility], with the professional compo nent performed at the [facility], [address] [place] [address] ??[phone] ([phone]) CPT Codes: A: 40213-YV2 B: 37587-PI7 C: 90157-VE5 D: 22319-NI7 COLLECTION SITE: Client: [facility] Location: SHOR (S) Specimen (Source) Anatomical Collection Method Collection Time Re ceived Time Location / / Volume Laterality Tissue specimen STRUCTURE OF 11/06/2019 9:30 AM (specimen) LYMPHATIC SYSTEM CDT OF RIGHT HALF OF PELVIS / Unknown Tissue specimen TOPOGRAPHY UNKNOWN 11/06/2019 9:39 AM (specimen) / Unknown CDT Tissue specimen STRUCTURE OF 11/06/2019 10:55 (specimen) LYMPHATIC SYSTEM AM CDT OF LEFT HALF OF PELVIS / Unknown Tissue specimen PROSTATIC 11/06/2019 10:59 (specimen) STRUCTURE / AM CDT Unknown Rosanna LUCAS AP Performing Organization Address City/State/ZIP Code Phon e Number COPATH (ABNORMAL) Glucose by meter (11/06/2019 7:09 AM CDT) P athologist Signature Glucose 132 (H) 70 - 99 11/06/2019 POINT OF CARE mg/dL 7:15 AM CDT TEST, GLUCOSE Specimen Anatomical Collection Method Collection Time Receive d Time (Source) Location / / Volume Laterality 11/06/2019 7:09 AM 0 7:15 CDT AM CDT Rosanna LUCAS POCT Performing Organization Address City/State/ZIP Code Phon e Number FV POINT OF CARE TEST, GLUCOSE POINT OF CARE TEST, GLUCOSE ABO/Rh type and screen (11/06/2019 6:37 AM CDT) Patholo gist Method Time Signature ABO O 11/06/2019 DELTA 7:28 AM CDT [facility] RH(D) Neg [facility] Antibody Neg 11/06/2019 DELTA Screen 7:28 AM CDT [facility] Test Valid [place] 11/06/2019 DELTA Only At [facility] 6:53 AM CDT [facility] Specimen 11/09/2019 11/06/2019 DELTA Expires 6:53 AM CDT [facility] Specimen Anatomical Collection Method Collection Time Receive d Time (Source) Location / / Volume Laterality Blood specimen 11/06/2019 6:37 AM 020 6:38 (specimen) CDT AM CDT Renetta Lewis PA-C LAB - BLOOD BANK TEST ORDER Performing Organization Address City/State/ZIP Code Phon e Number [facility] [address] [id number] [facility] [address] [id number], U [phone] LAB RESULT - HIM SCAN (11/01/2019 12:00 AM CDT) Specimen (Source) Anatomical Location Collection Method / Collectio n Time Received Time / Laterality Volume 11/01/2019 Narrative This result has an attachment that is no t available. Provider Outside NON-BEAKER LAB TESTING LAB RESULT - HIM SCAN (11/01/2019 12:00 AM CDT) Specimen (Source) Anatomical Location Collection Method / Collectio n Time Received Time / Laterality Volume 11/01/2019 Narrative This result has an attachment that is no t available. Provider Outside NON-BEAKER LAB TESTING documented in this encounter Visit Diagnoses Diagnosis Prostate cancer (H) - Primary Malignant neoplasm of prostate documented in this encounter Admitting Diagnoses Diagnosis Prostate cancer (H) Malignant neoplasm of prostate documented in this encounter Administered Medications Inactive Administered Medications - up to 3 most recent administrations Medication Order MAR Action Action Date Dose Rate Site acetaminophen (TYLENOL) tablet 975 Given 11/07/2019 4:17 PM CDT 975 mg mg 975 mg, Oral, EVERY 6 HOURS, First dose on Tue11/06/19 at 1630, Do not use if patient has an active opioid/acetaminophen analgesic order for pain. Maximum acetaminophen dose from all sources = 75 mg/kg/day not to exceed 4 grams/day., Post-procedure Given 11/07/2019 3:51 AM CDT 975 mg Given 11/06/2019 10:55 PM CDT 975 mg HYDROmorphone (PF) (DILAUDID) injection Given 11/06/2019 2:37 PM CDT 0.5 mg 0.3-0.5 mg 0.3-0.5 mg, Intravenous, EVERY 5 MIN PRN, other, acute pain. ??May administer if Respiratory Rate is greater than 10, Starting on e 11/06/19 at 1242, Max cumulative dose = 2 mg If fentaNYL (SUBLIMAZE) is also ordered, use HYDROmorphone (DILAUDID) if pain control insufficient with fentaNYL (SUBLIMAZE) or a longer acting agent is needed. For ordered IV doses 0.1-4 mg give IV Push undiluted. Administer each 2mg over 2-5 minutes., PACU lactated ringers infusion New Bag 11/06/2019 2:04 PM CDT 100 mL/hr at 100 mL/hr, Intravenous, CONTINUOUS, Continue until IV catheter is weaned, PACU, Starting on e 11/06/19 at 1245, Until 11/06/19 at 1606 metoclopramide (REGLAN) injection 10 mg 10 mg, Intravenous, Administer over 2 Mi nutes, EVERY 6 HOURS PRN, nausea, vomiting, Starting on Tue11/06/19 at 1617, This is Step 3 of nausea and vomiting management. Give if nausea not resolved 15 minutes a fter giving prochlorperazine (COMPAZINE). If nausea not resolved in 15-30 minutes, Notify provider. Avoid use if patient has full bowel obstruction or perforation. I rritant. For ordered IV doses 1-10 mg, give IV Push undiluted over 2 minutes., Post-procedure metoclopramide (REGLAN) tablet 10 mg 10 mg, Oral, EVERY 6 HOURS PRN, nausea, vomiting, Starting on Tue11/06/19 at 1617, This is Step 3 of nausea and vomiting ma nagement. Give if nausea not resolved 15 minutes after giving prochlorperazine (C OMPAZINE). If nausea not resolved in 15-30 minutes, Notify provider., Post-procedure ondansetron (ZOFRAN) injection 4 mg Given 11/06/2019 4:02 PM CDT 4 mg 4 mg, Intravenous, EVERY 30 MIN PRN, nausea, Administer over 2-5 Minutes, Starting on Tue11/06/19 at 1242, For 2 doses, MAX total dose = 8 mg, including OR dosing. If not resolved in 15 minutes, then go to step 2 [prochlorperazine (COMPAZINE), if ordered]. Irritant. For ordered IV doses 0.1-4 mg, give IV Push undiluted over 2-5 minutes., PACU ondansetron (ZOFRAN) injection 4 mg 4 mg, Intravenous, EVERY 6 HOURS PRN, nausea, vomiting , Administer over 2-5 Minutes, Starting on Tue11/06/19 at 1617, This is Step 1 of nausea and vomiting management. If nausea not resolved in 15 minutes, go t o Step 2 prochlorperazine (COMPAZINE). Irritant. For ordered IV do ses 0.1-4 mg, give IV Push undiluted over 2-5 minutes., Post-procedure ondansetron (ZOFRAN-ODT) ODT tab 4 mg 4 mg, Oral, EVERY 6 HOURS PRN, nausea, v omiting, Starting on Tue11/06/19 at 1617, This is Step 1 of nausea and vomiting management. If n ausea not resolved in 15 minutes, go to Step 2 prochlorperazine (COMPAZINE). Do not push through foil backing. Peel back foil and gently remove. Place on to ngue immediately. Administration with liquid unnecessary W ith dry hands, peel back foil backing and gently remove tablet. Do not push oral d isintegrating tablet through foil backing. Administer immediately on tongue and oral disintegrati ng tablet dissolves in seconds, then swallow with saliva. Liquid not required ., Post-procedure oxyCODONE (ROXICODONE) tablet 5-10 mg Given 11/07/2019 4:16 PM CDT 10 mg 5-10 mg, Oral, EVERY 3 HOURS PRN, other, pain control or improvement in physical function. Hold dose for analgesic side effects., Starting on Tue11/06/19 at 1617, Start with the lowest dose. May adjust dose by 5 mg every 3 hours as needed. Notify the provider to assess for uncontrolled pain or analgesic side effects. Hold while on IV MINERAL MIXER or with regular IV opioid dosing., Post-procedure Given 11/07/2019 11:59 AM CDT 5 mg Given 11/07/2019 3:51 AM CDT 5 mg prochlorperazine (COMPAZINE) injection 1 0 mg 10 mg, Intravenous, EVERY 6 HOURS PRN, nausea, vomitin g, Administer over 1-2 Minutes, Starting on Tue11/06/19 at 1617, This is Step 2 of nausea and vomiting management. If nausea not resolved in 15 minutes, give metoclopramide (REGLAN), if ordered (step 3 of nausea and vomiting m anagement) For ordered IV doses 0.1-10 mg, give IV push undiluted, each 5 mg over 1 minute., Post -procedure prochlorperazine (COMPAZINE) tablet 10 m g 10 mg, Oral, EVERY 6 HOURS PRN, nausea, vomiting, Starting on Tue11/06/19 at 1617, This is Step 2 of nausea and vomiting management. If n ausea not resolved in 15 minutes, give metoclopramide (REGLAN), i f ordered (step 3 of nausea and vomiting management), Post-procedure sodium chloride 0.9% infusion New Bag 11/07/2019 3:52 AM CDT 100 mL/hr at 100 mL/hr, Intravenous, CONTINUOUS, Post-procedure, Starting on Tue11/06/19 at 1630, Until Tue11/07/19 at 2106 New Bag 11/06/2019 5:23 PM CDT 100 mL/hr documented in this encounter Active and Recently Administered Medications Times are shown in CDT. Scheduled Medication Order 11/05/2019 11/06/2019 11/07/2019 acetaminophen (TYLENOL) tablet 975 mg 17 23 (Given - Provider: Cora Hutchins RN)2255 (Given - Provider: Cora Hutchins, CHITRA) 0351 (Given - Provider: Janine Guaman RN)1159 (Not Given - Provider: Madhuri Ruby RN - Reason: Other)1617 (Given - Provider: Esther Leal RN) 975 mg, Oral, EVERY 6 HOURS, First dose on Tue11/06/19 at 1630, Do not use if patient has an active opioid/acetaminophen analgesic order for pain. Maximum acetaminophen dose from all sources = 75 mg/kg/day not to exceed 4 grams/day., Post-procedure ceFAZolin (ANCEF) intermittent infusion 3 g (pre-mix) (COMPL ETED) 0808 (Given - Provider: Renetta Marie APRN CRNA)1008 (Given - Provider: Renetta Marie APRN CRNA)1208 (Given - Provider: Renetta Marie APRN CRNA) Routine, 3 g, Intravenous, PRE-OP/PRE-IA OCEDURE, Starting Tue11/06/19 at 0554, For 1 dose, Use 3 gram dose pre-op (Patient weight > or = 120 kg). Discontinue the 1 or 2 gram pre-procedure dose, Indica tions: Perioperative Pharmacoprophylaxis, Pre-procedure metFORMIN (GLUCOPHAGE-XR) 24 hr tablet 1,000 mg 172 (Not Given - Provider: Esther Leal RN - Reason: Contraindicated - Comment: pt not eating here) 1,000 mg, Oral, DAILY, First dose on Tue11/07/19 at 1800, Do not crush. If the patient receives intravenous, iodinated contrast and patient GFR is greater than 60 ml/min, continue metformin. Contact prov ider for 'hold' or 'no hold' instruction s if no GFR or if GFR is less than 60 ml/min., Post-procedure sodium chloride (PF) 0.9% PF flush 3 mL 2101 (Not Given - Provider: Cora Hutchins RN - Reason: IV Infusing) 0833 (Not Given - Provider: Madhuri Ruby RN - Reason: IV Infusing)1319 (Not Given - Provider: Madhuri Ruby RN - Reason: IV Infusing) 3 mL, Intracatheter, EVERY 8 HOURS, Firs t dose on Tue11/06/19 at 2200, And Q1H PRN, to lock peripheral IV dormant line., Post-procedure Continuous Medication Order 11/05/2019 11/06/2019 11/07/2019 lactated ringers infusion (CANCELED) 140 4 (New Bag - Provider: Jesika Arizmendi RN) at 100 mL/hr, Intravenous, CONTINUOUS, C ontinue until IV catheter is weaned, PACU, Starting Tue11/06/19 at 1245, Until Tue11/06/19 at 1606 sodium chloride 0.9% infusion 1723 (New Bag - Pr ovider: Cora Hutchins RN) 0352 (New Bag - Provider: Janine Guaman RN) at 100 mL/hr, Intravenous, CONTINUOUS, P ost-procedure, Starting Tue11/06/19 at 1630, Until Tue11/07/19 at 2106 PRN Medication Order 11/05/2019 11/06/2019 11/07/2019 bupivacaine (MARCAINE) 0.5% injection MDV (CANCELED) 1228 (Given - Provider: Rosanna Mckinley MD) PRN, Starting Tue11/06/19 at 1228, Intra-procedure HYDROmorphone (PF) (DILAUDID) injection 0.2 mg 0.2 mg, Intravenous, EVERY 2 HOURS PRN, other, pain control or improvement in physical function. Hold dose for analgesic side effects., Starting Tue11/06/19 at 1617, Notify the provider to assess for unc ontrolled pain or analgesic side effects . Hold while on IV MINERAL MIXER or with regular IV opioid dosing. For ordered IV doses 0.1-4 mg give IV Push undiluted. Administer each 2mg over 2-5 minutes., Post-procedure HYDROmorphone (PF) (DILAUDID) injection 0.3-0.5 mg (CANCELED ) 1437 (Given - Provider: Jesika Arizmendi RN) 0.3-0.5 mg, Intravenous, EVERY 5 MIN PRN , other, acute pain. ??May administer if Respiratory Rate is greater than 10, Starting Tue11/06/19 at 1242, Max cumulative dose = 2 mg If fentaNYL (SUBLIMAZE) is a lso ordered, use HYDROmorphone (DILAUDID ) if pain control insufficient with fentaNYL (SUBLIMAZE) or a longer acting agent is needed. For ordered IV doses 0.1-4 mg give IV Push undiluted. Administer each 2mg over 2-5 minutes., PACU lidocaine (LMX4) cream Topical, EVERY 1 HOUR PRN, pain, with VA D insertion or accessing implanted port., Starting Tue11/06/19 at 1617, Do NOT give if patient has a history of allergy to any local anesthetic or any maverick prod uct. Apply at least 30 minutes prior to VAD insertion or port access. In divided doses as needed for size of site for insertion with MAX Dose: 2.5 g (?? of 5 g tube), Post-procedure lidocaine 1 % 0.1-1 mL 0.1-1 mL, Other, EVERY 1 HOUR PRN, mild pain with VAD insertion., Starting 11/06/19 at 1617, Do NOT give if patient has a history of allergy to any local anesthetic or any maverick product. MAX dose 1 mL subcutaneous OR intradermal in divide d doses as needed for VAD insertion., Post-procedure metoclopramide (REGLAN) injection 10 mg(Linked Group 1) 10 mg, Intravenous, Administer over 2 Mi nutes, EVERY 6 HOURS PRN, nausea, vomiting, Starting 11/06/19 at 1617, This is Step 3 of nausea and vomiting management. Give if nausea not resolved 15 minutes after giving prochlorperazine (COMPAZINE ). If nausea not resolved in 15-30 minutes, Notify provider. Avoid use if patient has full bowel obstruction or perforation. Irritant. For ordered IV doses 1-10 m g, give IV Push undiluted over 2 minutes., Post-procedure metoclopramide (REGLAN) tablet 10 mg(Linked Group 1) 10 mg, Oral, EVERY 6 HOURS PRN, nausea, vomiting, Starting 11/06/19 at 1617, This is Step 3 of nausea and vomiting management. Give if nausea not resolved 15 minutes after giving prochlorperazine (COM PAZINE). If nausea not resolved in 15-30 minutes, Notify provider., Post-procedure naloxone (NARCAN) injection 0.1-0.4 mg 0.1-0.4 mg, Intravenous, EVERY 2 MIN PRN , opioid reversal, Starting 11/06/19 at 1617, For respiratory rate LESS than or EQUAL to 8. Partial reversal dose: 0.1 mg titrated q 2 minutes for Analgesia Alex e Effects Monitoring Sedation Level of 3 (frequently drowsy, arousable, drifts to sleep during conversation).Full reversal dose: 0.4 mg bolus for Analgesia Side Effects Monitoring Sedation Level of 4 (s omnolent, minimal or no response to stim ulation). For ordered IV doses 0.1-2mg give IVP. Give each 0.4mg over 15 seconds in emergency situations. For non- emergent situations further dilute in 9mL of NS to facilitate titration of response., Post-procedure ondansetron (ZOFRAN) injection 4 mg (CANCELED) 1602 (Given - Provider: Jesika Arizmendi RN) 4 mg, Intravenous, EVERY 30 MIN PRN, manfred sea, Administer over 2-5 Minutes, Starting 11/06/19 at 1242, For 2 doses, MAX total dose = 8 mg, including OR dosing. If not resolved in 15 minutes, then go to step 2 [prochlorperazine (COMPAZINE), if ordered]. Irritant. For ordered IV doses 0.1-4 mg, give IV Push undiluted over 2-5 minutes., PACU ondansetron (ZOFRAN) injection 4 mg(Linked Group 2) 4 mg, Intravenous, EVERY 6 HOURS PRN, na usea, vomiting, Administer over 2-5 Minutes, Starting 11/06/19 at 1617, This is Step 1 of nausea and vomiting management. If nausea not resolved in 15 minutes, go to Step 2 prochlorperazine (COMPAZINE ). Irritant. For ordered IV doses 0.1-4 mg, give IV Push undiluted over 2-5 minutes., Post-procedure ondansetron (ZOFRAN-ODT) ODT tab 4 mg(Linked Group 2) 4 mg, Oral, EVERY 6 HOURS PRN, nausea, v omiting, Starting 11/06/19 at 1617, This is Step 1 of nausea and vomiting management. If nausea not resolved in 15 minutes, go to Step 2 prochlorperazine (BLAISE ZINE). Do not push through foil backing. Peel back foil and gently remove. Place on tongue immediately. Administration with liquid unnecessary With dry hands, peel back foil backing and gently remove ta blet. Do not push oral disintegrating ta blet through foil backing. Administer immediately on tongue and oral disintegrating tablet dissolves in seconds, then swallow with saliva. Liquid not required., Post-procedure oxyCODONE (ROXICODONE) tablet 5-10 mg 21 05 (Given - Provider: Cora Hutchins RN) 0351 (Given - Provider: Janine devine RN)1159 (Given - Provider: Madhuri Ruby, CHITRA)1616 (Given - Provider: Esther Leal, CHITRA) 5-10 mg, Oral, EVERY 3 HOURS PRN, other, pain control or improvement in physical function. Hold dose for analgesic side effects., Starting 11/06/19 at 1617, Start with the lowest dose. May adjust dose by 5 mg every 3 hours as needed. Notify the provider to assess for uncontrolled pain or analgesic side effects. Hold while on IV MINERAL MIXER or with regular IV opioid dosing., Post-procedure prochlorperazine (COMPAZINE) injection 10 mg(Linked Group 3) 10 mg, Intravenous, EVERY 6 HOURS PRN, n ausea, vomiting, Administer over 1-2 Minutes, Starting 11/06/19 at 1617, This is Step 2 of nausea and vomiting management. If nausea not resolved in 15 minutes, give metoclopramide (REGLAN), if ordere d (step 3 of nausea and vomiting management) For ordered IV doses 0.1-10 mg, give IV push undiluted, each 5 mg over 1 minute., Post-procedure prochlorperazine (COMPAZINE) tablet 10 mg(Linked Group 3) 10 mg, Oral, EVERY 6 HOURS PRN, nausea, vomiting, Starting 11/06/19 at 1617, This is Step 2 of nausea and vomiting management. If nausea not resolved in 15 minutes, give metoclopramide (REGLAN), if or dered (step 3 of nausea and vomiting management), Post-procedure sodium chloride (PF) 0.9% PF flush 3 mL 3 mL, Intracatheter, EVERY 1 MIN PRN, li ne flush, for peripheral IV flush post IV meds, Starting 11/06/19 at 1617, Post-procedure sodium chloride 0.9% (bag) irrigation (CANCELED) 0829 (Given - Provider: Rosanna Mckinley MD - Comment: used throughout surgical procedure) PRN, Starting 11/06/19 at 0829, Intra-procedure sodium chloride 0.9% (bottle) irrigation (CANCELED) 0829 (Given - Provider: Rosanna Mckinley MD) PRN, Starting 11/06/19 at 0829, Intra-procedure torsemide (DEMADEX) tablet 10-20 mg 10-20 mg, Oral, DAILY PRN, BP >180/90, S tarting 11/06/19 at 1617, Indications: Hypertension, Post-procedure Linked Groups Order Group 1: metoclopramide (REGLAN) tablet 10 mgJump to med 10 mg, Oral, EVERY 6 HOURS PRN, nausea, vomiting, Starting 11/06/19 at 1617
This is Step 3 of nausea and vomiting management. Give if nausea not resolved 15 minutes after g iving prochlorperazine (COMPAZINE).&nbsp ;If nausea not resolved in 15-30 minutes, Notify provider.
Post-procedure Or metoclopramide (REGLAN) injection 10 mgJump to med 10 mg, Intravenous, Administer over 2 Mi nutes, EVERY 6 HOURS PRN, nausea, vomiting, Starting 11/06/19 at 1617
This is Step 3 of nausea and vomiting management. Give if naus ea not resolved 15 minutes after giving prochlorperazine (COMPAZINE). If nausea not resolved in 15-30 minutes, Notify provider. Avoid use if patient has full bowel obstruction or perfo ration. Irritant. For ordered IV doses 1 -10 mg, give IV Push undiluted over 2 minutes.
Post-procedure Group 2: ondansetron (ZOFRAN-ODT) ODT tab 4 mgJump to med 4 mg, Oral, EVERY 6 HOURS PRN, nausea, v omiting, Starting 11/06/19 at 1617
This is Step 1 of nausea and vomiting management. If nausea not resolved in 15 minutes, go to Jeramie p 2 prochlorperazine (COMPAZINE). Do not push through foil backing. Peel back foil and gently remove. Place on tongue immediately. Administration with liquid unnecessary With dry hands, peel ba ck foil backing and gently remove tablet . Do not push oral disintegrating tablet through foil backing. Administer immediately on tongue and oral disintegrating tablet dissolves in seconds, then swallow with saliva. Liquid not required.
Pos t-procedure Or ondansetron (ZOFRAN) injection 4 mgJump to med 4 mg, Intravenous, EVERY 6 HOURS PRN, na usea, vomiting, Administer over 2-5 Minutes, Starting 11/06/19 at 1617
This is Step 1 of nausea and vomiting management. If nausea n ot resolved in 15 minutes, go to Step 2 prochlorperazine (COMPAZINE). Irritant. For ordered IV doses 0.1-4 mg, give IV Push undiluted over 2-5 minutes.
Post-procedure Group 3: prochlorperazine (COMPAZINE) injection 10 mgJump to med 10 mg, Intravenous, EVERY 6 HOURS PRN, n ausea, vomiting, Administer over 1-2 Minutes, Starting 11/06/19 at 1617
This is Step 2 of nausea and vomiting management. If nausea not resol yeny in 15 minutes, give metoclopramide ( REGLAN), if ordered (step 3 of nausea and vomiting management) For ordered IV doses 0.1-10 mg, give IV push undiluted, each 5 mg over 1 minute.
Post-procedure Or prochlorperazine (COMPAZINE) tablet 10 mgJump to med 10 mg, Oral, EVERY 6 HOURS PRN, nausea, vomiting, Starting 11/06/19 at 1617
This is Step 2 of nausea and vomiting management. If nausea not resolved in 15 minutes, give metocloprami de (REGLAN), if ordered (step 3 of nause a and vomiting management)
Post-procedure documented in this encounter Care Teams Crane Chaser Relationship Specialty Start Date End Date Munir Sahu PCP - General Family Practice 10/22/19 [facility] [address] [place] [address] documented as of this encounter
--- OUTSIDE RECORDS SUMMARY | 2021-12-11 08:05 | XMS_ITS | Encounter Summary ---
:1960 Author Organization [facility] Address [address] [place] [id number] Care Team Providers Name Role Phone Munir Sahu Primary Care Provider Encounter Details Date Type Department Care Team Description 11/06/2019 Travel Social History Tobacco Use Types Packs/Day Years [...] / COVID-19? documented as of this encounter Plan of Treatment Not on filedocumented as of this encounter Visit Diagnoses Not on filedocumented in this encounter Care Teams Sample Display Preparer Relationship Specialty Start Date End Date Munir Sahu PCP - General Family Practice 10/22/19 [facility] [address] [place] [address] documented as of this encounter
--- OUTSIDE RECORDS SUMMARY | 2021-12-11 08:06 | XMS_ITS | Clinical Summary ---
:1960 Author Organization [email or web address] [facility] [place] [address] Care Team Providers Name Role Phone Cora Peña MD Primary Care Provider Allergies Active Allergy Reactions Severity Noted Date Comments Silver Rash 06/17/2017 Medications Medication Sig Dispensed Refills Start Date End Date Status blood-glucose Use to test blood 1 Kit 0 09/22/2017 Active meterIndications: glucose 4 times Type 2 diabetes daily. mellitus with complication, without long-term current use of insulin (HC) lancets (ONE TOUCH Use to test blood 100 Each 0 09/22/2017 Active DELICA) 33 gauge misc glucose 4 times daily. blood sugar Use to test blood 100 Each 0 09/22/2017 Active diagnostic (ONETOUCH glucose 4 times ULTRA BLUE TEST daily. STRIP) strip oxyCODONE Take 1-2 tablets by 20 tablet 0 09/22/2017 Active (ROXICODONE) 5 mg mouth every 4 hours immediate release if needed for Pain tabletIndications: (For moderate Cellulitis of right pain.) lower extremity metFORMIN (GLUCOPHAGE Take 2 tablets by 30 tablet 0 09/23/2017 Active XR) 500 mg mouth once daily. Extended-Release tabletIndications: Type 2 diabetes mellitus with complication, without long-term current use of insulin (HC) glyBURIDE (MICRONASE; Take 1 tablet by 20 tablet 0 09/23/2017 Active DIABETA) 2.5 mg mouth once daily tabletIndications: before a meal. Type 2 diabetes mellitus with complication, without long-term current use of insulin (HC) Active Problems Problem Noted Date Lymphedema of both lower extremities 09/19/2017 Type 2 diabetes mellitus with complication 09/19/2017 Cellulitis of right lower extremity 09/19/2017 Ulcer of lower extremity 02/21/2017 Ulcer of ankle 06/18/2015 Overview: Overview: Ulcer Ankle R Morbid obesity 06/11/2015 Overview: Overview: Morbid Obesity Body Mass Index (BMI) >40 Adult Essential hypertension 01/08/2014 Overview: Overview: Hypertension (HTN) Chronic Chronic peripheral venous hypertension 11/24/2009 Overview: Overview: Venous Stasis Ulcer with Inflammation Social History Tobacco Use Types Packs/Day Years Used Date Never Smoker Smokeless Tobacco: Never Used Alcohol Use Standard Drinks/Week Comments Yes 0 (1 standard drink = 0.6 oz pure alcoho l) occasional Sex Assigned at Date Recorded Not on file Obstetrics History Last Filed Vital Signs Vital Sign Reading Time Taken Comments Blood Pressure 139/57 09/22/2017 1:00 PM CDT Pulse 84 09/22/2017 1:00 PM CDT Temperature 36.8 ??C (98.3 ??F) 09/22/2017 1:00 PM CDT Respiratory Rate 18 09/22/2017 1:00 PM CDT Oxygen Saturation 95% 09/22/2017 1:00 PM CDT Inhaled Oxygen Concentration - - Weight 140.8 kg (310 lb 6.4 oz) 09/22/2017 5:00 AM CDT Height 180.3 cm (5' 11) 09/19/2017 10:33 AM CDT Body Mass Index 43.29 09/19/2017 10:33 AM CDT Plan of Treatment Health Maintenance Due Date Last Done Comments Tdap 02/08/1972 Depression screening for age 12+ 1973 BMI (ht and wt on same day) for age 18+ 1979 Hepatitis C screening for age 18-79 1979 Tetanus booster 1981 Colonoscopy through age 75 2006 Lipids for age 45-75 2006 Zoster (shingles) series for age 50+ (1 of 2011 2) COVID-19 vaccine series (3 - Booster for 12/10/2020 042 021, 06/12/2020 Moderna series) Influenza for age 50-64 12/03/2021 Results Not on filefrom Last 3 Months Insurance Payer Benefit Plan / Subscriber ID Effective Dates Phone Addre ss Type Group PREFERRED ONE PREFERRED [id number] 2014-Pres [address] [place] [address] [facility] [id number] 2020-Presen [address] [address] [place] [address] [phone] [id number] (Work) Wilmar Ridley Personal/Family Self 1960 [facility] [address] (Home) [place], [place] [phone] (Work) Advance Directives Latest Code Status on File Code Status Date Activated Date Inactivated Comments Full Code 09/19/2017 2:10 PM 09/22/2017 8:18 PM Code Status Discussion: Not Discussed Care Teams Battery Tester Field Relationship Specialty Start Date End Date Cora Peña MD PCP - General Emergency Medicine 09/22/17
--- OUTSIDE RECORDS SUMMARY | 2021-12-11 08:06 | XMS_ITS | Encounter Summary ---
:1960 Author Organization [facility] Address [address] [facility] [place] [address] Care Team Providers Name Role Phone Munir Sahu A Primary Care Provider Reason for Visit Auth/Cert Specialty Diagnoses / Procedures Referred By Contact Refer red To Contact Surgery Diagnoses Prostate cancer (H) Prostate cancer (H) [C61] Periop Services Procedures C LAPAROSCOPY, SURGICAL PROSTATECTOMY, RETROPUBIC RADICAL, W/NERVE SPARING ROBOT ASSISTED LAPAROSCOPIC PROSTATECTOMY AND PELVIC LYMPH NODE DISSECTION [address] [place] [address] Phone: Referral ID Status Reason Start Date Expiration Date Visits Requ ested Visits Authorized [id number] 1 1 Encounter Details Date Type Department Care Team Description 11/06/2019 Surgery [facility] Miya, ROBOT SISTED [place] [facility] [place] [facility] PROSTATECTOMY AND [address] L[address] BILATERAL PELVIC LYMPH [address] [place] [address] [address] [place] [id number] (Wo rk) Surgery Details Date/Time Status Location OR Service Patient Case Class Case Tr auma Class Type Case? 11/06/19 7:30 Posted OR OR M Jose Same Day Elective AM 43 Urology Surgery Panel 1 Procedure LRB Anes Op Region Wound Class Commen ts ROBOT ASSISTED Bilateral General Pelvis II-Clean Contaminated LAPAROSCOPIC PROSTATECTOMY AND BILATERAL PELVIC LYMPH NODE DISSECTION Surgeon Surgeon Role Service Panel Rosanna Mckinley MD Primary [facility] 1 Juan Lowe PA-C Assisting 1 Special Needs 10/29 Will have testing done 11/01 in [place]. Will fax results to [phone] ID documented in this encounter Social History Tobacco Use Types Packs/Day Years [...] Sign Reading Time Taken Comments Blood Pressure 158/82 11/06/2019 5:51 AM CDT Pulse - - Temperature 36.4 ??C (97.6 ??F) 11/06/2019 5:51 AM CDT Respiratory Rate 16 11/06/2019 5:51 AM CDT Oxygen Saturation 97% 11/06/2019 5:51 AM CDT Inhaled Oxygen Concentration - - Weight [...] Lowe PA-C - 11/07/2019 10:[address] [facility] Urology Progress Note Assessment & Plan Jose [...] PA-C 11/07/2019 10:24 AM [facility] Mon-Fri, 7am - 4pm Office: [phone] Interval History Walked once last night. Tolerating [...] I/O last 3 completed shifts: In: 1999 [I.V.:1999] Out: 2580 [Urine:2350; Drains:80; Blood:150] General: Patient [...] Mervat Astudillo - 11/05/2019 7:40 PM CDT [employer]ER medications updated by Medication Scribe prior to [...] bilateral pelvic lymphadenectomy Surgeon: Rosanna Mckinley MD Supervisor Gelatin Plant: Juan Lowe PA-C Date of Procedure: 11/06/19 [...] manner. ??Time out was called. ??An 18 Occitan palmer catheter was placed with in the sterile [...] Monocryl on a double armed needle. ??An 18??portuguese??catheter was placed and the bladder irrigated well. [...] A&Ox4. 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 Complains of incisional pain; controlled with scheduled [...] 10/29 Will have testing done 11/01 in [place]. Will fax results to [phone] ID GLUCOSE BY METER Routine 11/06/2019 7:09 [...] logist Time Signature Creatinine LOC FLUID 11/07/2019 ANKENY Fluid Source 10:55 AM CDT [facility] Creatinine 0.7 mg/dL 11/07/2019 ANKENY Fluid 11:19 AM CDT [facility] Comment: No reference ranges have [...] sample AM CDT 10:54 AM CDT (specimen) Juan Lowe PA-C LAB - BODY FLUIDS ORDERABLES Performing Organization Address City/State/ZIP Code Phon e Number M [facility] [address] [address] [facility] [address] [address], [place] [phone] Hemoglobin (11/07/2019 7:21 AM CDT) P athologist Signature Hemoglobin 14.1 13.3 - 17.7 11/07/2019 ANKENY g/dL 7:33 AM CDT [facility] Specimen Anatomical Collection Method Collection Time Receive d Time (Source) Location / / Volume Laterality Blood specimen 11/07/2019 7:21 AM 020 7:22 (specimen) CDT AM CDT Juan Lowe PA-C LAB - BLOOD ORDERABLES Performing Organization Address City/State/ZIP Code Phon e Number M [facility] [address] [place] [address] [phone] [facility] [address] [place] [address], [place] [phone] (ABNORMAL) Basic metabolic panel (11/07/2019 7:21 AM CDT) P athologist Signature Sodium 140 133 - 144 11/07/2019 ANKENY mmol/L 7:[address] [facility] Potassium 4.0 3.4 - 5.3 11/07/2019 ANKENY mmol/L 7:[address] [facility] Chloride 106 94 - 109 11/07/2019 ANKENY mmol/L 7:[address] [facility] Carbon Dioxide 30 20 - 32 11/07/2019 ANKENY mmol/L 7:[address] [facility] Anion Gap 4 3 - 14 11/07/2019 ANKENY mmol/L 7:[address] [facility] Glucose 165 (H) 70 - 99 11/07/2019 ANKENY mg/dL 7:[address] [facility] Urea Nitrogen 12 7 - 30 11/07/2019 ANKENY mg/dL 7:[address] [facility] Creatinine 0.81 0.66 - 11/07/2019 ANKENY 1.25 mg/dL 7:[address] [facility] GFR Estimate >90 >60 11/07/2019 ANKENY mL/min/{1. 7:52 AM [facility] 73_m2} [facility]OSPITAL Comment: Non GFR Calc Starting 03/21/2018, serum creatinine ba sed estimated GFR (eGFR) will be calculated using the Chronic Kidney Dise [facility] Epidemiology Collaboration (CKD-EPI) equation. GFR Estimate If >90 >60 mL/min/{1.73_m2} 11/07/2019 7: 52 AM [facility] Comment: GFR Calc Starting 03/21/2018, serum creatinine ba sed estimated GFR (eGFR) will be calculated using the Chronic Kidney Dise [facility] Epidemiology Collaboration (CKD-EPI) equation. Calcium 8.1 (L) 8.5 - 10.1 mg/dL 11/07/2019 7:52 AM [facility] Specimen Anatomical Collection Method Collection Time Receive d Time (Source) Location / / Volume Laterality Blood specimen 11/07/2019 7:21 AM 020 7:22 (specimen) CDT AM CDT Juan Lowe PA-C LAB - BLOOD ORDERABLES Performing Organization Address City/State/ZIP Code Phon e Number M [facility] [address] [phone] [facility] [address] [address], [facility] [phone] (ABNORMAL) Glucose by meter (11/06/2019 1:37 PM CDT) P athologist Signature Glucose 211 (H) 70 - 99 11/06/2019 POINT OF CARE mg/dL 1:43 PM CDT TEST, GLUCOSE Specimen Anatomical Collection Method Collection Time Receive d Time (Source) Location / / Volume Laterality 11/06/2019 1:37 PM 0 1:43 CDT PM CDT Rosanna Mckinley MD [facility] POCT Performing Organization Address City/State/ZIP Code Phon e Number FV POINT OF CARE TEST, GLUCOSE POINT OF CARE TEST, GLUCOSE Surgical pathology exam (11/06/2019 9:30 AM CDT) Component Value Ref Test Analysis Performed At [facility] gist Range Method Time Signature Copath Report Patient Name: JOSE GUADALUPE RIDLEY MR#: [id number] Specimen #: [id number] Collected: 11/06/2019 Received: 11/06/2019 Reported: 11/07/2019 14:51 [...] - Adenocarcinoma, acinar type, grade group 2 (Heidy score 3 + 4 = 7 of [...] Acinar adenocarcinoma ??Histologic Grade ?Grade Group and Heidy Score: ?- Grade group 2 ([place] Score 3 + 4 = 7) ?Percentage [...] ??Regional Lymph Nodes (pN): ?- pN0 [facility] November 2018 Agile Release Electronically signed out [...] 3.3 cm from superior to inferior) with mailing specialist d right seminal vesicle (3.1 x 1.7 [...] no evidence of grossly obvious tumor identified. ??Global Sales Executive sections are submitted in 18 cassettes. Cassette [...] (approximately 7 0% of the tumor) is Heidy pattern 3, and the secondary architectural pattern (approximately 30% of the tu mor) is [place] pattern 4. ??Perineural invasion is identified. ??Lymphovascular [...] of this testing was completed at the [facility], with the professional compo nent performed at the [facility], [address] [place] [address] ??[phone] ([phone]) CPT Codes: A: 44555-VV2 B: 92768-ZI9 C: 16779-KH5 D: 97756-DL9 COLLECTION SITE: Client: [facility] Location: SHOR (S) Specimen (Source) Anatomical Collection [...] (specimen) STRUCTURE / AM CDT Unknown Rosanna Mckinley MD [facility] Performing Organization Address City/State/ZIP Code Phon e Number [place] (ABNORMAL) Glucose by meter (11/06/2019 7:09 AM CDT) P athologist Signature Glucose 132 (H) 70 - 99 11/06/2019 POINT OF CARE mg/dL 7:15 AM CDT TEST, GLUCOSE Specimen Anatomical Collection Method Collection Time Receive d Time (Source) Location / / Volume Laterality 11/06/2019 7:09 AM 0 7:15 CDT AM CDT Rosanna Mckinley MD LAB - BEAKER POCT Performing Organization Address City/[facility]/ZIP Code Phon e Number FV POINT OF CARE TEST, GLUCOSE POINT OF CARE TEST, GLUCOSE ABO/Rh type and screen (11/06/2019 6:37 AM CDT) [facility] gist Method Time Signature ABO O 11/06/2019 ANKENY 7:28 AM CDT [facility] RH(D) Neg [facility] Antibody Neg 11/06/2019 ANKENY Screen 7:28 AM CDT [facility] Test Valid [facility] 11/06/2019 ANKENY Only At [facility] 6:53 AM CDT [facility] Specimen 11/09/2019 11/06/2019 ANKENY Expires 6:53 AM CDT [facility] Specimen Anatomical Collection Method Collection Time Receive d Time (Source) Location / / Volume Laterality Blood specimen 11/06/2019 6:37 AM 020 6:38 (specimen) CDT AM CDT Renetta Lewis PA-C LAB - BLOOD BANK TEST ORDER Performing Organization Address City/[facility]/ZIP Code Phon e Number M [facility] [address] [address] [phone] [facility] [address] [address], [facility] [phone] LAB RESULT - HIM SCAN (11/01/2019 12:00 [...] (H) - Primary Malignant neoplasm of prostate Prostate cancer (H) Malignant neoplasm of prostate [...] Given 11/06/2019 10:55 PM CDT 975 mg bupivacaine (MARCAINE) Given 11/06/2019 12:28 PM 30 mLs Operative Site/Surgical 0.5% injection MDV CDT Site PRN, Starting on Tue11/06/19 at 1228, Intra-procedure HYDROmorphone (PF) (DILAUDID) injection Given 11/06/2019 2:37 PM CDT 0.5 mg 0.3-0.5 mg 0.3-0.5 mg, Intravenous, EVERY 5 MIN PRN, other, acute pain. ??May administer if Respiratory Rate is greater than 10, Starting on Tue11/06/19 at 1242, Max cumulative dose = [...] IV catheter is weaned, PACU, Starting on Tue11/06/19 at 1245, Until Tue11/06/19 at 1606 metoclopramide (REGLAN) injection 10 mg [...] analgesic side effects. Hold while on IV UTILITY OPERATOR YARN or with regular IV opioid dosing., Post-procedure [...] and vomiting management), Post-procedure sodium chloride 0.9% (bag) Given 11/06/2019 8:29 AM 1,000 mLs Operative irrigation CDT Site/Surgical S ite PRN, Starting on Tue11/06/19 at 0829, Intra-procedure sodium chloride 0.9% Given 11/06/2019 8:29 AM 500 mLs Operative Site/Surgical (bottle) irrigation CDT Site PRN, Starting on Tue11/06/19 at 0829, Intra-procedure sodium chloride 0.9% infusion New Bag 11/07/2019 [...] Cora Hutchins RN)2255 (Given - Provider: Cora Hutchins RN) 0351 (Given - Provider: Janine Guaman RN)1159 [...] Marie APRN CRNA) Routine, 3 g, Intravenous, PRE-OP/PRE-SD OCEDURE, Starting Tue11/06/19 at 0554, For 1 dose, Use 3 gram dose pre-op (Patient weight > or = 120 kg). Discontinue the 1 or 2 gram pre-procedure dose, Indica tions: Perioperative Pharmacoprophylaxis, Pre-procedure metFORMIN (GLUCOPHAGE-XR) 24 hr tablet 1,000 mg 1726 (Not Given - Provider: Esther Leal RN [...] mL 2101 (Not Given - Provider: Cora Hutchins, CHITRA - Reason: IV Infusing) 0833 (Not Given - Provider: Madhrui Ruby RN - Reason: IV Infusing)1319 (Not Given - Provider: Madhuri Ruby RN - Reason: IV Infusing) 3 mL, Intracatheter, EVERY 8 HOURS, Firs t dose on Tue11/06/19 at 2200, And Q1H PRN, to lock peripheral IV dormant line., Post-procedure Continuous Medication Order 11/05/2019 11/06/2019 11/07/2019 lactated ringers infusion (CANCELED) 140 4 (New Bag - Provider: eJsika Arizmendi, RN) at 100 mL/hr, Intravenous, CONTINUOUS, C ontinue until IV catheter is weaned, PACU, Starting on Tue11/06/19 at 1245, Until Tue11/06/19 at 1606 sodium chloride 0.9% infusion 1723 (New Bag - Pr ovider: Cora Hutchins RN) 0352 (New Bag - Provider: Janine Guaman RN) at 100 mL/hr, Intravenous, CONTINUOUS, P ost-procedure, Starting on Tue11/06/19 at 1630, Until Tue11/07/19 at 2106 PRN Medication Order 11/05/2019 11/06/2019 11/07/2019 bupivacaine (MARCAINE) 0.5% injection MDV (CANCELED) 1228 (Given - Provider: Rosanna Mckinley MD) PRN, Starting on Tue11/06/19 at 1228, Intra-procedure HYDROmorphone (PF) (DILAUDID) injection 0.2 mg 0.2 mg, Intravenous, EVERY 2 HOURS PRN, other, pain control or improvement in physical function. Hold dose for analgesic side effects., Starting Tue11/06/19 at 1617, Notify the provider to assess for unc ontrolled pain or analgesic side effects . Hold while on IV UTILITY OPERATOR YARN or with regular IV opioid dosing. For ordered IV doses 0.1-4 mg give IV Push undiluted. Administer each 2mg over 2-5 minutes., Post-procedure HYDROmorphone (PF) (DILAUDID) injection 0.3-0.5 mg (CANCELED ) 1437 (Given - Provider: Jesika Arizmendi RN) 0.3-0.5 mg, Intravenous, EVERY 5 MIN PRN , other, acute pain. ??May administer if Respiratory Rate is greater than 10, Starting on Tue11/06/19 at 1242, Max cumulative dose = 2 mg If fentaNYL (SUBLIMAZE) i s also ordered, use HYDROmorphone (DILAU DID) if pain control insufficient with fentaNYL (SUBLIMAZE) or a longer acting agent is needed. For ordered IV doses 0.1-4 mg give IV Push undiluted. Administer each 2mg over 2-5 minutes., PACU lidocaine (LMX4) cream Topical, EVERY 1 HOUR PRN, pain, with VA D insertion or accessing implanted port., Starting Tue11/06/19 at 161, Do NOT give if patient has a [...] PRN, mild pain with VAD insertion., Starting Tue11/06/19 at 1617, Do NOT give if patient has a history of allergy to any local anesthetic or any maverick product. MAX dose 1 mL subcutaneous OR intradermal in divide d doses as needed for VAD insertion., Post-procedure metoclopramide (REGLAN) injection 10 mg(Linked Group 1) 10 mg, Intravenous, Administer over 2 Mi nutes, EVERY 6 HOURS PRN, nausea, vomiting, Starting on 8/4/20 at 1617, This is Step 3 of nausea and vomiting management. Give if nausea not resolved 15 minut es after giving prochlorperazine (COMPAZ INE). If nausea not resolved in 15-30 minutes, Notify provider. Avoid use if patient has full bowel obstruction or perforation. Irritant. For ordered IV doses 1-1 0 mg, give IV Push undiluted over 2 minutes., Post-procedure metoclopramide (REGLAN) tablet 10 mg(Linked Group 1) 10 mg, Oral, EVERY 6 HOURS PRN, nausea, vomiting, Starting on Tue11/06/19 at 1617, This is Step 3 of nausea and vomiting management. Give if nausea not resolved 15 minutes after giving prochlorperazine ( COMPAZINE). If nausea not resolved in 15 -30 minutes, Notify provider., Post-procedure naloxone (NARCAN) injection 0.1-0.4 mg 0.1-0.4 mg, Intravenous, EVERY 2 MIN PRN , opioid reversal, Starting Tue11/06/19 at 1617, For respiratory rate LESS than [...] mg (CANCELED) 1602 (Given - Provider: Jesika Arizmendi, RN) 4 mg, Intravenous, EVERY 30 MIN PRN, manfred sea, Administer over 2-5 Minutes, Starting on Tue11/06/19 [...] usea, vomiting, Administer over 2-5 Minutes, Starting on Tue11/06/19 at 1617, This is Step 1 of nausea and vomiting management. If nausea not resolved in 15 minute s, go to Step 2 prochlorperazine (COMPAZ INE). Irritant. For ordered IV doses 0.1-4 mg, give IV Push undiluted over 2-5 minutes., Post-procedure ondansetron (ZOFRAN-ODT) ODT tab 4 mg(Linked Group 2) 4 mg, Oral, EVERY 6 HOURS PRN, nausea, v omiting, Starting on Tue11/06/19 at 1617, This is Step 1 of nausea and vomiting management. If nausea not resolved in 15 minutes, go to Step 2 prochlorperazine (CO MPAZINE). Do not push through foil backi ng. Peel back foil and gently remove. Place on tongue immediately. Administration with liquid unnecessary With dry hands, peel back foil backing and gently remove tablet. Do not push oral disintegrating tablet through foil backing. Administer immediately on tongue and oral disintegrating tablet dissolves in seconds, then swallow with saliva. Liquid not required., Post-procedure oxyCODONE (ROXICODONE) tablet 5-10 mg 21 05 (Given - Provider: Cora Hutchins, CHITRA) 0351 (Given - Provider: Janine devine RN)1159 (Given - Provider: Madhuri Ruby, CHITRA)1616 (Given - Provider: Esther Leal RN) 5-10 mg, Oral, EVERY 3 HOURS PRN, other, pain control or improvement in physical function. Hold dose for analgesic side effects., Starting on Tue11/06/19 at 1617, Start with the lowest dose. May adjust d ose by 5 mg every 3 hours as needed. Not christopher the provider to assess for uncontrolled pain or analgesic side effects. Hold while on IV UTILITY OPERATOR YARN or with regular IV opioid dosing., Post-procedure prochlorperazine (COMPAZINE) injection 10 mg(Linked Group 3) 10 mg, Intravenous, EVERY 6 HOURS PRN, n ausea, vomiting, Administer over 1-2 Minutes, Starting on Tue11/06/19 at 1617, This is Step 2 of nausea and vomiting management. If nausea not resolved in 15 minut es, give metoclopramide (REGLAN), if ord ered (step 3 of nausea and vomiting management) [...] (step 3 of nausea and vomiting management), Post-proced ure sodium chloride (PF) 0.9% PF flush 3 mL 3 mL, Intracatheter, EVERY 1 MIN PRN, li ne flush, for peripheral IV flush post IV meds, Starting Tue11/06/19 at 1617, Post-procedure sodium chloride 0.9% (bag) irrigation (CANCELED) 08 (Given - Provider: Rosanna Mckinley MD - Comment: used throughout surgical procedure) PRN, Starting on Tue11/06/19 at 0829, Intra-procedure sodium chloride 0.9% (bottle) irrigation (CANCELED) 0829 (Given - Provider: Rosanna Mckinley MD) PRN, Starting on Tue11/06/19 at 0829, Intra-procedure torsemide (DEMADEX) tablet 10-20 mg 10-20 mg, Oral, DAILY PRN, BP >180/90, S tarting Tue11/06/19 at 1617, Indications: Hypertension, Post-procedure Linked Groups Order Group 1: metoclopramide (REGLAN) tablet 10 mgJump to med 10 mg, Oral, EVERY 6 HOURS PRN, nausea, vomiting, Starting on Tue11/06/19 at 1617
This is Step 3 of nausea and vomiting management. Give if nausea not resolved 15 minutes afte r giving prochlorperazine (COMPAZINE).&n bsp;If nausea not resolved in 15-30 minutes, Notify provider.
Post-procedure Or metoclopramide (REGLAN) injection 10 mgJump to med 10 mg, Intravenous, Administer over 2 Mi nutes, EVERY 6 HOURS PRN, nausea, vomiting, Starting on Tue11/06/19 at 1617
This is Step 3 of nausea and vomiting management. Give if n ausea not resolved 15 minutes after givi ng prochlorperazine (COMPAZINE). If nausea not resolved in 15-30 minutes, Notify provider. Avoid use if patient has full bowel obstruction or pe rforation. Irritant. For ordered IV dose s 1-10 mg, give IV Push undiluted over 2 minutes.
Post-procedure Group 2: ondansetron (ZOFRAN-ODT) ODT tab 4 mgJump to med 4 mg, Oral, EVERY 6 HOURS PRN, nausea, v omiting, Starting on Tue11/06/19 at 1617
This is Step 1 of nausea and vomiting management. If nausea not resolved in 15 minutes, go to Step 2 prochlorperazine (COMPAZINE). Do not push through foil backing. Peel back foil and gently remove. Place on tongue immediately. Administration with liquid unnecessary With dry hands, peel back foil backing and gently remove tab let. Do not push oral disintegrating tablet through foil backing. Administer immediately on tongue and oral disintegrating tablet dissolves in seconds, then swall ow with saliva. Liquid not required.
Post-procedure Or ondansetron (ZOFRAN) injection 4 mgJump to med 4 mg, Intravenous, EVERY 6 HOURS PRN, na usea, vomiting, Administer over 2-5 Minutes, Starting on Tue11/06/19 at 1617
This is Step 1 of nausea and vomiting management. If nause a not resolved in 15 minutes, go to Step 2 prochlorperazine (COMPAZINE). Irritant. For ordered IV doses 0.1-4 mg, give IV Push undiluted over 2-5 minutes.
Post-procedure Group 3: prochlorperazine (COMPAZINE) injection 10 mgJump to med 10 mg, Intravenous, EVERY 6 HOURS PRN, n ausea, vomiting, Administer over 1-2 Minutes, Starting on Tue11/06/19 at 1617
This is Step 2 of nausea and vomiting management. If nausea not re solved in 15 minutes, give metoclopramid e (REGLAN), if ordered (step 3 of nausea and vomiting management) For ordered IV doses 0.1-10 mg, give IV push undiluted, each 5 mg over 1 minute.
Post-procedure Or prochlorperazine (COMPAZINE) tablet 10 mgJump to med 10 mg, Oral, EVERY 6 HOURS PRN, nausea, vomiting, Starting on Tue11/06/19 at 1617
This is Step 2 of nausea and vomiting management. If nausea not resolved in 15 minutes, give metoclopr amide (REGLAN), if ordered (step 3 of na usea and vomiting management)
Post-procedure documented in this encounter Care Teams Crude Tester Relationship Specialty Start Date End Date Munir Sahu PCP - General Family Practice 10/22/19 [facility] [address] [place] [address] documented as of this encounter
--- OUTSIDE RECORDS SUMMARY | 2021-12-11 08:06 | XMS_ITS | Encounter Summary ---
:1960 Author Organization [facility] Address [address] [place] [address] Care Team Providers Name Role Phone Unavailable Primary Care Provider Unavailable Encounter Details Date Type Department Care Team Description 10/10/[address] [facility] Ang Holliday for Sabra Clifford OR Momo Damian MD screening for other [address] [facility] [place] [address] [facility] (Primary Dx) [phone] [address] [place] [address] (Wo rk) Social History Tobacco Use Types Packs/Day Years Used Date Never Assessed Sex Assigned at Date Recorded Not on file documented as of this encounter Miscellaneous Notes Addendum Note - Eran Damico RN - 10/10/2019 4:07 PM CDT Addended by: ERAN DAMICO on: 10/11/2019 10:48 AM Modules accepted: Orders documented in this encounter Plan of Treatment Not on filedocumented as of this encounter Visit Diagnoses Diagnosis Encounter for screening for other viral diseases - Primary documented in this encounter
--- OUTSIDE RECORDS SUMMARY | 2021-12-11 08:06 | XMS_ITS | Encounter Summary ---
:1960 Author Organization [place] Address formerly [facility] [place] [address] Care Team Providers Name Role Phone Munir Sahu A Primary Care Provider Reason for Visit Auth/Cert Specialty Diagnoses / Procedures Referred By Contact Refer red To Contact Surgery Diagnoses Prostate cancer (H) Prostate cancer (H) [C61] Periop Services Procedures C LAPAROSCOPY, SURGICAL PROSTATECTOMY, RETROPUBIC RADICAL, W/NERVE SPARING ROBOT ASSISTED LAPAROSCOPIC PROSTATECTOMY AND PELVIC LYMPH NODE DISSECTION [address], [address] [place] [address] Phone: Referral ID Status Reason Start Date Expiration Date Visits Requ ested Visits Authorized [id number] 1 1 Encounter Details Date Type Department Care Team Description 11/06/2019 Anesthesia Event [facility] Sachin Jackson MD [facility] [address] [place], [place] [id number] [facility] Renetta Marie, CORPORATE TECHNICAL RECRUITER MANAGER [employer] [address] [employer] [id number] Services [address] [place] [address] Anesthesia Record Procedure Summary Procedure Name Responsible Anesthesia Start Anesthesia Stop Anesthesiologist Time Time ROBOT ASSISTED Sachin Jackson MD 11/06/19 0730 0 1330 LAPAROSCOPIC PROSTATECTOMY AND BILATERAL PELVIC LYMPH NODE DISSECTION (Bilateral Pelvis) Events Date Time Event Comment 11/06/2019 0647 0710 Quick Note Stefany Reynoso SRN A present through out procedure 0730 An Start 0731 An Start Data 0737 An Induction 0742 An Intubation 0745 Quick Note Recruitment tyler ths given periodically 0756 Quick Note Covid test outsi de of 4 day range, waited 14 minutes before OR Team c omes back in 0829 AN INCISION 0846 MD Present 1002 MD Present 1026 Quick Note Surgeon turned p neumoperitoneum up to pressure of 20 for short time 1139 MD Present 1308 MD Present 1311 AN Extubation 1326 an stop data 1330 An Stop Electronically s igned by Ramandeep Hartmann APRN CRNA on November 06, 2019 1 :33 PM Name Total dexamethasone 4mg/mL 4 mg dexmedetomidine (PRECEDEX) 4 mcg/mL in sodium chloride 0.9 % 100 mL 92.18 mcg infusion fentaNYL (SUBLIMAZE) injection 175 mcg glycopyrrolate 0.2mg/mL 0.8 mg lidocaine 2% 100 mg midazolam 1mg/mL 2 mg neostigmine 1mg/mL 5 mg ondansetron 2mg/mL 4 mg phenylephrine (DUKE-SYNEPHRINE) injection 200 mcg propofol (DIPRIVAN) injection 10 mg/mL vial 200 mg rocuronium 10mg/mL 150 mg vecuronium 1mg/mL 5 mg ceFAZolin (ANCEF) intermittent infusion 3 g (pre-mix) 5 g HYDROmorphone 1 mg/mL 0.5 mg LR 900 mL LR 900 mL Agents Name NO HELIOX O2 N2O Air Exp Sevoflurane Exp Isoflurane Exp Desflurane Exp N2O O2 Delivery Device Ins Sevoflurane Ins Isoflurane Ins Desflurane O2 Auxiliary Blood No blood administrations on file. Lines, Drains, and Airways Type Details Placement Removal Gastric Tube Decompression; 16 fr; 11/06/19 0907 by Aspiration of gastric content Urethral Catheter 11/06/19; 0827; No; 11/06/19 0827 by /GI/CRYPTOGRAPHY TEACHER Pelvic Stefany Rolon RN Procedure; 18 fr Incision/Surgical Site 11/06/19; 1212; 11/06/19 1212 by Abdomen; 5 port sites Stefany Rolon RN RETIRED ETT Mask Ventilation: Easy 11/06/19 0906 by 11/06/19 1311 by with oral airway; Ease Renetta Marie of Intubation: Easy; ZOE Atkins Airway Size: 8; Cuffed; Oral; Blade Type: Glidescope; Blade Size: 4; Place by: Stefany Reynoso; Insertion Attempts: 1; Secured at (cm)to lip: 21 cm; Breath Sounds: Equal, clear and bilateral; End Tidal CO2: Present; Dentition: Intact, Unchanged (poor dentition); Grade View of Cords: 1; Airway Adjuncts: [place] scope Peripheral IV 20 G; Left; Upper arm; 11/06/19 0922 by 11/07/19 1600 by Accessory cephalic; Roland Leal RN Alcohol; Tolerated well Peripheral IV 11/06/19; 0709; 20 G; 11/06/19 0709 by 11/07/19 1600 by Left; Hand; Alcohol; Ramandeep Hartmann APRN Olson, Whitney, RN None; Tolerated well MANAGER [employer] Closed/Suction Drain 11/06/19; 1221; Left; 11/06/19 1221 by 08/21 1347 by Abdomen; Bulb; 15 Stefany Rolon RN Igoe, Casey Marquez RN documented in this encounter Social History Tobacco [...] / COVID-19? documented as of this encounter OR Notes Anesthesia Postprocedure Evaluation - Don Kaur MD - 11/06/2019 1:50 PM CDT Patient: Julien Ridley Procedure(s): ROBOT ASSISTED LAPAROSCOPIC PROSTATECTOMY AND BILATERAL PELVIC LYMPH NODE DISSECTION Diagnosis:Prostate cancer (H) [C61] Diagnosis Additional Information: No value filed. Anesthesia Type: General Note: Anesthesia Post Evaluation Patient location during evaluation: PACU Patient participation: Able to fully participate in evaluation Level of consciousness: awake and alert Pain management: adequate Airway patency: patent Cardiovascular status: acceptable Respiratory status: acceptable and unassisted Hydration status: acceptable PONV: none Last vitals: Vitals: 11/06/19 0551 11/06/19 1330 BP: (!) 158/82 (!) 159/96 Pulse: 77 Resp: 16 10 Temp: 36.4 ??C (97.6 ??F) 36.3 ??C (97.4 ??F) SpO2: 97% 98% Electronically Signed By: Don Kaur MD November 06, 2019 1:50 PM Anesthesia Preprocedure Evaluation - Sachin Jackson MD - 11/06/2019 6:45 AM CDT Anesthesia Pre-Procedure Evaluation Patient: Julien Ridley : 1960 Preoperative Diagnosis: Prostate cancer (H) [C61] Procedure(s): ROBOT ASSISTED LAPAROSCOPIC PROSTATECTOMY AND PELVIC LYMPH NODE DISSECTION Past Medical History: Diagnosis Date ??? Diabetes (H) ??? Hypertension ??? Lymphedema of both lower extremities ??? Obese ??? Peripheral edema ??? Venous stasis ulcer (H) Past Surgical History: Procedure Laterality Date ??? BACK SURGERY l5 diskectomy ??? C SC LIGATION, DIVISION AND STRIPPING OF VEIN, LOWER EXN ??? EYE SURGERY lasik ??? refractive surgery ??? scleroterapy of vericose vein marce Anesthesia Evaluation . ROS/MED HX ENT/Pulmonary: (+)sleep apnea, , . . (-) tobacco use and asthma Neurologic: (+)neuropathy (-) seizures and CVA Cardiovascular: Comment: Venous stasis, peripheral edema, on chronic loop diuretic (+) hypertension----. : . . . :. . METS/Exercise Tolerance: Hematologic: Musculoskeletal: GI/Hepatic: (-) liver disease Renal/Genitourinary: (-) renal disease Endo: (+) type II DM (A1C 6.7) Not using insulin Obesity, . Psychiatric: Infectious Disease: Malignancy: (+) Malignancy History of Prostate Prostate CA Active status post, Other: Physical Exam Airway Mallampati: II TM distance: >3 FB Neck ROM: full Dental (+) chipped and missing Comment: Upper poor dentition, multiple chipped Cardiovascular Rhythm and rate: regular Pulmonary No results found for: WBC, HGB, HCT, PLT, CRP, SED, NA, POTASSIUM, CHLORIDE, CO2, BUN, CR, GLC, JACKIE,PHOS, MAG, ALBUMIN, PROTTOTAL, ALT, AST, GGT, ALKPHOS, BILITOTAL, BILIDIRECT, LIPASE, AMYLASE, CONCEPCION, PTT, INR, FIBR, TSH, T4, T3, HCG, HCGS, CKTOTAL, CKMB, TROPN Preop Vitals BP Readings from Last 3 Encounters: 11/06/19 (!) 158/82 Pulse Readings from Last 3 Encounters: No data found for Pulse Resp Readings from Last 3 Encounters: 11/06/19 16 SpO2 Readings from Last 3 Encounters: 11/06/19 97% Temp Readings from Last 1 Encounters: 11/06/19 36.4 ??C (97.6 ??F) (Temporal) Ht Readings from Last 1 Encounters: 11/06/19 1.778 m (5' 10) Wt Readings from Last 1 Encounters: 11/06/19 134.9 kg (297 lb 8 oz) Estimated body mass index is 42.69 kg/m?? as calculated from the following: Height as of this encounter: 1.778 m (5' 10). Weight as of this encounter: 134.9 kg (297 lb 8 oz). Anesthesia Plan History & Physical Review History and physical reviewed and following examination; no interval change. ASA Status: 2 . NPO Status: > 8 hours Plan for General (ETT) with Propofol induction. PONV prophylaxis: Ondansetron (or other 5HT-3) and Dexamethasone or Solumedrol Additional equipment: 2nd IV and Videolaryngoscope Postoperative Care Postoperative pain management: IV analgesics and Oral pain medications. Consents Anesthetic plan, risks, benefits and alternatives discussed with: Patient.. Sachin Jackson MD documented in this encounter Miscellaneous Notes Anesthesia Care Transfer Note - Ramnadeep Hartmann APRN CRNA - 11/06/2019 1:34 PM CDT Patient: Julien Ridley Procedure(s): ROBOT ASSISTED LAPAROSCOPIC PROSTATECTOMY AND BILATERAL PELVIC LYMPH NODE DISSECTION Diagnosis: Prostate cancer (H) [C61] Diagnosis Additional Information: No value filed. Anesthesia Type: General Note: Airway :Face Mask Patient transferred to:PACU Comments: Neuromuscular blockade reversed after TOF 3/4, spontaneous respirations, adequate tidal volumes, followed commands to voice, oropharynx suctioned with soft flexible catheter, extubated atraumatically, extubated with suction, airway patent after extubation. Oxygen via facemask at 8 liters per minute to PACU. After extubation, patient remained in OR for 14 minutes until transport to PACU due to standard hospital COVID-19 precautions, Oxygen tubing connected to wall O2 in PACU, SpO2, NiBP, and EKG monitors and alarms on and functioning, Aicha Hugger warmer connected to patient gown, report onpatient's clinical status given to HADOOP ENGINEER, RN questions answered. Handoff Report: Identifed the Patient, Identified the Reponsible Provider, Reviewed the pertinent medical history, Discussed the surgical course, Reviewed Intra-OP anesthesia mangement and issues during anesthesia, Set expectations for post-procedure period and Allowed opportunity for questions and acknowledgement of understanding Vitals: (Last set prior to Anesthesia Care Transfer) MANAGER [employer] VITALS 11/06/2019 1256 - 11/06/2019 1334 11/06/2019 Resp Rate (set): 10 Electronically Signed By: Ramandeep Hartmann APRN CRNA November 06, 2019 1:34 PM documented in this encounter Plan of Treatment Not on filedocumented as of this encounter Visit Diagnoses Not on filedocumented in this encounter Administered Medications Inactive Administered Medications - up to 3 most recent administrations Medication Order MAR Action Action Date Dose Rate Site ceFAZolin (ANCEF) intermittent Given 11/06/2019 12:08 PM CDT 1 g infusion 3 g (pre-mix) Routine, 3 g, Intravenous, PRE-OP/PRE-PROCEDURE, Starting on Tue11/06/19 at 0554, For 1 dose, Use 3 gram dose pre-op (Patient weight > or = 120 kg). Discontinue the 1 or 2 gram pre-procedure dose, Indications: Perioperative Pharmacoprophylaxis, Pre-procedure Given 11/06/2019 10:08 AM CDT 1 g Given 11/06/2019 8:08 AM CDT 3 g dexamethasone (DECADRON) injection Given 11/06/2019 8:40 AM CDT 4 mg PRN, Administer over 1 Minutes, Starting on Tue11/06/19 at 0840, Anesthesia Intra-op dexmedetomidine (PRECEDEX) 4 New Bag 11/06/2019 8:18 AM 0.2 mcg/kg /hr 6.7 mL/hr mcg/mL in sodium chloride 0.9 % CDT 100 mL infusion Intravenous, CONTINUOUS PRN, Starting on Tue11/06/19 at 0818, Anesthesia Intra-op fentaNYL (PF) (SUBLIMAZE) injection Given 11/06/2019 1:18 PM CDT 50 mcg PRN, Administer over 3-5 Minutes, Starting on Tue11/06/19 at 0738, Anesthesia Intra-op Given 11/06/2019 1:00 PM CDT 25 mcg Given 11/06/2019 7:38 AM CDT 100 mcg glycopyrrolate (ROBINUL) injection Given 11/06/2019 12:49 PM CDT 0.8 mg PRN, Administer over 1-2 Minutes, Starting on Tue11/06/19 at 1249, Anesthesia Intra-op HYDROmorphone (DILAUDID) injection Given 11/06/2019 11:15 AM CDT 0.2 mg PRN, Starting on Tue11/06/19 at 0939, Anesthesia Intra-op Given 11/06/2019 9:39 AM CDT 0.3 mg lactated ringers infusion New Bag 11/06/2019 7:33 AM CDT Intravenous, CONTINUOUS PRN, Anesthesia Intra-op, Starting on Tue11/06/19 at 0733, Until Tue11/06/19 at 1333 lactated ringers infusion New Bag 11/06/2019 7:49 AM CDT Intravenous, CONTINUOUS PRN, Anesthesia Intra-op, Starting on Tue11/06/19 at 0749, Until Tue11/06/19 at 1333 lidocaine 2% injection (MDV) Given 11/06/2019 7:39 AM CDT 100 mg PRN, Starting on Tue11/06/19 at 0739, Anesthesia Intra-op midazolam (VERSED) injection Given 11/06/2019 7:36 AM CDT 2 mg Administer over 2 Minutes, PRN, Starting on Tue11/06/19 at 0736, Anesthesia Intra-op neostigmine (PROSTIGMINE) injection Given 11/06/2019 12:49 PM CDT 5 mg Intravenous, PRN, Starting on Tue11/06/19 at 1249, Anesthesia Intra-op ondansetron (ZOFRAN) injection Given 11/06/2019 12:16 PM CDT 4 mg PRN, Administer over 2-5 Minutes, Starting on Tue11/06/19 at 1216, Anesthesia Intra-op phenylephrine (DUKE-SYNEPHRINE) injection Bolus 11/06/2019 8:24 AM CDT 100 mcg CONTINUOUS PRN, Starting on Tue11/06/19 at 0813, Anesthesia Intra-op Bolus 11/06/2019 8:19 AM CDT 50 mcg New Bag 11/06/2019 8:13 AM CDT 50 mcg propofol (DIPRIVAN) injection 10 mg/mL v ial Given 11/06/2019 7:39 AM CDT 200 mg PRN, Starting on Tue11/06/19 at 0739, Anesthesia Intra-op rocuronium injection Given 11/06/2019 9:48 AM CDT 30 mg PRN, Starting on Tue11/06/19 at 0739, Anesthesia Intra-op Given 11/06/2019 9:29 AM CDT 20 mg Given 11/06/2019 9:12 AM CDT 10 mg vecuronium (NORCURON) injection Given 11/06/2019 11:45 AM CDT 1 mg PRN, Starting on Tue11/06/19 at 1025, Anesthesia Intra-op Given 11/06/2019 10:54 AM CDT 2 mg Given 11/06/2019 10:25 AM CDT 2 mg documented in this encounter Care Teams Pot Pusher Relationship Specialty Start Date End Date Munir Sahu PCP - General [facility] 10/22/[address] [address] documented as of this encounter
== END 2021-12-11 07:54 | disposition home or self-care (01) ==
PROVIDERS: PCP Family Medicine; Visit Provider Physician Assistant Surgical
DX: E11.622 Type 2 diabetes mellitus with other skin ulcer (principal); L97.822 Non-pressure chronic ulcer of other part of left lower leg with fat layer exposed
CPT/HCPCS: 11042

== ENCOUNTER 2022-07-06 09:19 | Outpatient (CLI) | payer BC, SELFPAY | END 2022-07-06 09:20 | disposition home or self-care (01) | LOC: FBOREF 09:20 | PROVIDERS: PCP Family Medicine; Visit Provider Family Medicine | DX: E11.9 Type 2 diabetes mellitus without complications (principal); I10 Essential (primary) hypertension; C61 Malignant neoplasm of prostate; Z13.6 Encounter for screening for cardiovascular disorders | CPT/HCPCS: 80048; 80061; 84153 ==

== ENCOUNTER 2023-08-12 08:45 | Outpatient (CLI) | payer MEDICAID, SELFPAY ==
--- OUTSIDE RECORDS SUMMARY | 2023-08-12 08:47 | XMS_ITS | Referral Summary ---
Author Name Unknown Organization [facility] Address [address] [place] [address] Care Team Providers Care Marine Engineering Technicians Name Role Phone Munir Sahu MD Primary Care Provider Allergies Active Allergy Reactions Criticality Noted Date Comments Glyburide Other (See Comments) Medium 11/06/2019 Lightheadedness Nuts Rash Medium 11/06/2019 HORSE-CHESTNUT Silver Rash Low 11/05/2019 Medications Medication Sig Dispensed Refills Start Date End Date Status torsemide (DEMADEX) 10 MG tabletIndications: Hypertension Take 10-20 mg by mouth daily as needed Active metFORMIN (GLUCOPHAGE-XR) 500 MG 24 hr tablet Take 1,000 mg by mouth daily (Takes 2 x 500mg) Active acetaminophen (TYLENOL) 325 MG tabletIndications: Prostate cancer (H) Take 3 tablets (975 mg) by mouth every 6 hours as needed for pain 11/07/2019 Active oxyCODONE (ROXICODONE) 5 MG tabletIndications: Prostate cancer (H) Take 1-2 tablets (5-10 mg) by mouth every 3 hours as needed for breakthrough pain 15 tablet 11/07/2019 Active senna-docusate (SENOKOT-S/PERICOL JOSE) 8.6-50 MG tabletIndications: Prostate cancer (H) Take 1 tablet by mouth 2 times daily as needed for constipation 30 tablet 1 11/07/2019 Active Active Problems Problem Noted Date Diagnosed Date Prostate cancer 11/06/2019 Social History Tobacco Use Types Packs/Day Years Used Date Smoking Tobacco: Never Smokeless Tobacco: Never Alcohol Use Standard Drinks/Week Comments Yes 0 (1 standard drink = 0.6 oz pur e alcohol) occassional Adolescent Education Answer Date Record ed Getting School Help Needed Not on file 12/25 Sex and Gender Information Value Date Recorded Sex Assigned at Not on file Gender Identity Not on file Sexual Orientation Not on file Last Filed Vital Signs Vital Sign Reading Time Taken Comments Blood Pressure 133/60 11/07/2019 3:23 PM CDT Pulse 61 11/06/2019 4:15 PM CDT Temperature 36.7 ??C (98.1 ??F) 11/07/2019 3:23 PM CD T Respiratory Rate 16 11/07/2019 3:23 PM CDT Oxygen Saturation 95% 11/07/2019 3:23 PM CDT Inhaled Oxygen Concentration - - Weight 134.9 kg (297 lb 8 oz) 11/06/2019 5:51 AM CDT Height 177.8 cm (5' 10) 11/06/2019 5:51 AM CDT Body Mass Index 42.69 11/06/2019 5:51 AM CDT Plan of Treatment Not on file Advance Directives For more information, please contact: [phone] * Full Code (Latest Code Status on File) Date Activated Date Inactivated Comments 11/06/2019 2:19 PM 11/07/2019 9:06 PM All basic and advanced life-sustaining interventions are performed as appropriate Question Answer Comments Code status determined by: Unable to det ermine; FULL CODE until documents or legal decision maker available Care Teams Marine Engineering Technicians Relationship Specialty Start Date End Date Munir Sahu MD PCP - General Family Practice 10/22/19
--- OUTSIDE RECORDS SUMMARY | 2023-08-12 08:47 | XMS_ITS | Clinical Summary ---
Author Name Unknown Organization [facility] Address [address] [place] [address] Care Team Providers Care Continuous Process Coffee Roaster Name Role Phone Munir Sahu MD Primary [...] Advance Directives For more information, please contact: [phone] * Full Code (Latest Code Status on File) Date Activated Date Inactivated Comments 11/06/2019 2:19 PM 11/07/2019 9:06 PM All basic and advanced life-sustaining interventions are performed as appropriate Question Answer Comments Code status determined by: Unable to det ermine; FULL CODE until documents or legal decision maker available Care Teams Continuous Process Coffee Roaster Relationship Specialty Start Date End Date Munir Sahu MD PCP - General Family Practice 10/22/19
--- OUTSIDE RECORDS SUMMARY | 2023-08-12 08:47 | XMS_ITS | Clinical Summary ---
Author Name Unknown Organization [facility] Address [place], [place] [address] Care Team Providers Care Bar Hostess Name Role Phone Cora Peña MD Primary Care Provider Allergies Active Allergy Reactions Criticality Noted Date Comments Silver Rash 06/17/2017 Medications Medication Sig Dispensed Refills Start Date End Date Status blood-glucose meterIndications:Typ e 2 diabetes mellitus with complication, without long-term current use of insulin (HC) Use to test blood glucose 4 times daily. 1 Kit 09/22/2017 Active lancets (ONE TOUCH DELICA) 33 gauge misc Use to test blood glucose 4 times daily. 100 Each 09/22/2017 Active blood sugar diagnostic (ONETOUCH ULTRA BLUE TEST STRIP) strip Use to test blood glucose 4 times daily. 100 Each 09/22/2017 Active oxyCODONE (ROXICODONE) 5 mg immediate release tabletIndications:Ce llulitis of right lower extremity Take 1-2 tablets by mouth every 4 hours if needed for Pain (For moderate pain.) 20 tablet 09/22/2017 Active metFORMIN (GLUCOPHAGE XR) 500 mg Extended-Release tabletIndications:Ty pe 2 diabetes mellitus with complication, without long-term current use of insulin (HC) Take 2 tablets by mouth once daily. 30 tablet 09/23/2017 Active glyBURIDE (MICRONASE; DIABETA) 2.5 mg tabletIndications:Ty pe 2 diabetes mellitus with complication, without long-term current use of insulin (HC) Take 1 tablet by mouth once daily before a meal. 20 tablet 09/23/2017 Active Active Problems Problem Noted Date Diagnosed Date Lymphedema of both lower extremities 09/19/2017 Type 2 diabetes mellitus with complication 09/19 Cellulitis of right lower extremity 09/19/2017 Ulcer of lower extremity 02/21/2017 Ulcer of ankle 06/18/2015 Overview: Overview: Ulcer Ankle R Morbid obesity 06/11/2015 Overview: Overview: Morbid Obesity Body Mass Index (BMI) >40 Adult Essential hypertension 01/08/2014 Overview: Overview: Hypertension (HTN) Chronic Chronic peripheral venous hypertension 0 Overview: Overview: Venous Stasis Ulcer with Inflammation Social History Tobacco Use Types Packs/Day Years Used Date Smoking Tobacco: Never Smokeless Tobacco: Never Alcohol Use Standard Drinks/Week Comments Yes 0 (1 standard drink = 0.6 oz pur e alcohol) occasional Sex and Gender Information Value Date Recorded Sex Assigned at Not on file Gender Identity Not on file Sexual Orientation Not on file Obstetrics History Last Filed Vital Signs Vital Sign Reading Time Taken Comments Blood Pressure 139/57 09/22/2017 1:00 PM CDT Pulse 84 09/22/2017 1:00 PM CDT Temperature 36.8 ??C (98.3 ??F) 09/22/2017 1:00 PM CD T Respiratory Rate 18 09/22/2017 1:00 PM CDT Oxygen Saturation 95% 09/22/2017 1:00 PM CDT Inhaled Oxygen Concentration - - Weight 140.8 kg (310 lb 6.4 oz) 09/22/2017 5:00 AM CDT Height 180.3 cm (5' 11) 09/19/2017 10: 33 AM CDT Body Mass Index 43.29 09/19/2017 10:33 AM CDT Plan of Treatment Health Maintenance Due Date Last Done Comments Tdap 02/08/1972 Depression screening for age 12+ 1973 HIV for age 15-65 02/08/1976 BMI (ht and wt on same day) for age 18+ 1979 Hepatitis C screening for ag e 18-79 1979 Tetanus booster 1981 Colonoscopy through age 75 2006 Lipids for age 45-75 2006 Zoster (shingles) series for age 50+ (1 of 2) 2011 COVID-19 vaccine series (2022-24 season) 2022 07/10/2020, 06/12/2020 Influenza for age 50-64 12/04/2023 Pneumococcal series for age 6-64 Aged Out No longer eligible b ased on patient's age to complete this topic Advance Directives * Full Code (Latest Code Status on File) Date Activated Date Inactivated Comments 09/19/2017 2:10 PM 09/22/2017 8:18 PM Question Answer Comments Code Status Discussion: Not Discussed Care Teams Bar Hostess Relationship Specialty Start Date End Date Cora Peña MD PCP - General Emergency Medicine 09/22/17
== END 2023-08-12 08:46 | disposition home or self-care (01) ==
PROVIDERS: PCP Family Medicine; Visit Provider Nurse Practitioner Family
DX: I87.2 Venous insufficiency (chronic) (peripheral) (principal); E11.622 Type 2 diabetes mellitus with other skin ulcer; L97.322 Non-pressure chronic ulcer of left ankle with fat layer exposed; I89.0 Lymphedema, not elsewhere classified; Z79.84 Long term (current) use of oral hypoglycemic drugs
CPT/HCPCS: 97597; G0463

== ENCOUNTER 2023-09-02 07:50 | Outpatient (CLI) | payer MEDICAID, SELFPAY ==
--- OUTSIDE RECORDS SUMMARY | 2023-09-02 07:51 | XMS_ITS | Clinical Summary ---
Author Organization [facility] Address [place], [place] [address] Care Team Providers Care Pipe Line Inspector Name Role Phone Cora Peañ MD Primary Care Provider Allergies Active Allergy [...] (1 of 2) 2011 COVID-19 vaccine series (2022- season) 2022 07/10/2020, 06/12/2020 Influenza for age 50-64 12/04/2023 Pneumococcal series for age 6-64 Aged Out No longer eligible b ased on patient's age to complete this topic Advance Directives * Full Code (Latest Code Status on File) Date Activated Date Inactivated Comments 09/19/2017 2:10 PM 09/22/2017 8:18 PM Question Answer Comments Code Status Discussion: Not Discussed Care Teams Pipe Line Inspector Relationship Specialty Start Date End Date Cora Peña MD PCP - General Emergency Medicine 09/22/17
--- OUTSIDE RECORDS SUMMARY | 2023-09-02 07:51 | XMS_ITS | Data Portability ---
Author Organization [place] - [facility] Address [address] [place] [address] Care Team Providers Care Card Puncher Name Role Phone GORDY SOL Primary Care Provider Assessment Encounter Date Assessment Date Assessment LastModified by Organization Details LastModified Time 11/21/2019 11/21/2019 59M with [id number] [place] 3+4=7 prostate cancer s/p RALP. Discussed pathology, risk of recurrence, need for ongoing PSA monitoring. Small anastomotic leak, will cont Choi x 1 more week. Worsened LE edema, likely chronic, but will check LE u/s to be sure no DVT. [email or web address] Not available 11/21/2019 14:07:03 01/02/2020 01/02/2020 59M with [id number] [place] 3+4=7 prostate cancer s/p RALP. 1) Prostate cancer - f/u 4 months with PSA 2) EVETTE, moderate - cont Kegels - consider PFPT 3) ED - Cialis PRN [email or web address] Not available 01/02/2020 09:34:03 05/01/2020 05/01/2020 60M with [id number] [place] 3+4=7 prostate cancer s/p RALP 6 months ago. MICHAEL. 1) Prostate cancer - f/u 6 months with PSA 2) EVETTE, moderate - cont Kegels - consider PFPT 3) ED - Cialis PRN [email or web address] Not available 05/01/2020 10:47:29 10/24/2020 10/24/2020 60M with [id number] [place] 3+4=7 prostate cancer s/p RALP 1 year ago. MICHAEL. 1) Prostate cancer - f/u 6 months with PSA 2) EVETTE, moderate - not improving now at 1 year; weight may be contributing - refer for pelvic floor physical therapy 3) ED - Esperanza steele Not available 10/24/2020 11:28:46 Plan of Treatment Reminders Order Date Submit Date Provider Last Modified By Organization Details Last Modified Time Details Appointments None record ed. Lab PSA, serum or plasma 2020 021 [email or web address] Not available 10:45:51 PSA, serum or plasma 2020 021 [email or web address] Not available 10:40:47 PSA, serum or plasma 2019 020 [email or web address] Not available 0 09:34:26 Referral pelvic floor therap y referr al 2020 021 [facility], [address], [facility] [address], [place], [address], 09:57:49 Procedures None record ed. Surgeries None record ed. Imaging None record ed. Medication Orders None record ed. Patient TargetsNo targets recorded. Patient Instructions Encounter Date Encounter Id Patient Instructions Last Modified By Organization Details Last Modified Time 11/28/2019 [id number] To follow up sumaya Doshi at his next appointment, call with any concerns before then [email or web address] Not available 02/04/2020 12:00:45 Reason for Referral Pelvic Floor Therapy Referra l for Male urinary stress incontinence Referring Physician: Momo Mc, Urology, Encounter Date: 10/24/2020 Results Created Date Observation Date Name Description Value Unit Range Abnormal Flag LastModifiedBy Organization Detail LastModifiedTime 05/01/2020 PSA, serum or plasm a PSA, Total <0.04 ng/ml Not Available [facility] [address], [place], [address], 05/01/2020 10:40:29 02/11/2020 lab* PSA <0.04 normal Not Available Not Available 01/07/2020 12:33:24 01/02/2020 PSA, serum or plasm a PSA, Total <0.04 ng/Ml Not Available [facility] [address], [place], [address], 01/02/2020 09:14:10 10/25/19 21 10/24/2020 PSA, serum or plasm a PSA, Total <0.04n g/mL Not Available [facility] [address], [place], [address], 10/24/2020 10:45:30 10/12/1910/11/2019 MRI, pelvi s, w/wo contr ast No observ ation record ed. [email or web address] [facility] [address] [place], [address], 11/02/2019 10:40:22 10/16/19 20 10/11/2019 MRI, pelvi s, w/wo contr ast No observ ation record ed. [email or web address] Not Available 11/02/2019 10:41:41 10/16/1910/11/2019 MRI, pelvi s, w/wo contr ast No observ ation record ed. [email or web address] Not Available 11/02/2019 10:42:08 11/23/19 20 11/21/2019 CT, pelvi s, w/o contr ast No observ ation record ed. [email or web address] Not Available 11/29/19 17:13:18 Result Notes None recorded. Problems Name Status Onset Date Resolution Date Notes Provider Name and Address Organization Details Recorded Time Carcinoma of prostate Active 11/21/19 Caroline kruger [facility] 11/21/2019 10:59:25 Male urinary stress incontinence Active 05/01/19 Momo delacruz MD, PHD [address] [place] [address],[place] [address], [place], [address], [facility] 05/01/2020 10:47:38 Primary erectile dysfunction Active 05/01/19 21 Momo delacruz MD, PHD [address] [place] [address], [address], [facility] 05/01/2020 10:47:58 Problem Notes None recorded. Procedures Surgical History Date Name Laterality Status Provider Name and Address Organization Details Recorded Time 10/25/19 21 Blood Draw/VISUALIZATION DEVELOPER/PSA RESULTS completed Momo baez MD, PHD [address] [place] [address], [address] [place] [address], [facility] 10/24/2020 10:45:26 05/01/19 21 Blood Draw/VISUALIZATION DEVELOPER/PSA RESULTS completed Momo baez MD, PHD [address] [place] [address], [address] [place] [address], [facility] 05/01/2020 10:40:25 01/02/20 20 Blood Draw/VISUALIZATION DEVELOPER/PSA RESULTS completed Janice kruger, [facility] 01/02/2020 09:14:04 11/28/19 20 Choi Catheter Removal completed Caroline Smith [facility], [facility] 02/04/2020 12:00:10 Prostatectomy completed Momo baez MD, PHD [address] [place] [address], [address], [facility] 10/24/2020 10:44:48 colonoscopy completed Monica Awan [facility] 12/09/2020 10:47:07 Imaging Results Imaging Date Name Status LastModified by Organiz ation Details LastModified Time 10/11/2019 MRI, pelvis, w/wo contrast completed [email or web address] [facility] [address] [place], [place], [address], 11/02/2019 10:40:22 10/11/2019 MRI, pelvis, w/wo contrast completed Information not available 11/02/2019 10:41:41 10/11/2019 MRI, pelvis, w/wo contrast completed Information not available 11/02/2019 10:42:08 11/21/2019 CT, pelvis, w/o contrast completed cedric Information not available 11/29/2019 17:13:18 Procedure Notes None recorded. Medical Equipment None Reported. Allergies Allergen ID Allergen Name Allergen Category Reaction Reaction Severity Criticality Documentation Date Start Date Code Code System Note Provider Name and Address Organization Details Recorded Time 708653 silver medicatio n Not available Not available Not available 11/21/2019 64463 43 RxNorm [facility] 11:09:54 053699 adhesive tape environme nt,medica tion Not available Not available Not available 11/21/2019 [facility] 11:10[facility]01 Medications Name Sig Start Date Stop Date Status Note LastModified by Organization Details LastModified Time prednisone 20 mg tablet active Not Available Not Available No t Available torsemide 10 mg tablet active Not Available Not Available Not Available ciprofloxacin 500 mg tablet active Not Available Not Availabl e Not Available tamsulosin 0.4 mg capsule active Not Available Not Available N ot Available metformin ER 500 mg tablet,extended release 24 hr active Not Available Not Availabl e Not Available oxycodone 5 mg tablet active Not Available Not Available Not Available hydroxyzine pamoate 25 mg capsule active Not Available Not Available Not Available tadalafil 20 mg tablet active Not Available Not Available Not Available Senexon-S 8.6 mg-50 mg tablet active Not Available Not Availa ble Not Available Vitals Date Recorded Body height Body mass index (BMI) Body weight Provider Name and Address Organization Details Last Updated DateTime 01/02/2020 180.34 cm 39.3 kg/m2 941054.05 g Caroline Hoopertobias [facility] 01/02/2020 09:09:40 Date Recorded Body height Body mass index (BMI) Body weight Provider Name and Address Organization Details Last Updated DateTime 05/01/2020 180.34 cm 39.3 kg/m2 597815.05 g Momo baez MD, PHD [address] [facility],[address], [place], [address], [facility] 05/01/2020 10:39:59 Date Recorded Body height Body mass index (BMI) Body weight Provider Name and Address Organization Details Last Updated DateTime 10/24/2020 180.34 cm 39.7 kg/m2 499795.83 g Momo baez MD, PHD [address] [facility],[address], [place], [address], [facility] 10/24/2020 10:44:13 Date Recorded Body height Body mass index (BMI) Body weight Provider Name and Address Organization Details Last Updated DateTime 11/21/2019 180.34 cm 39.3 kg/m2 116994.05 g Caroline Smith [facility] 11/21/2019 11:09:04 Social History Question Answer Notes LastModified by Organizat ion Details LastModified Time Tobacco Smoking Status Never Smoker Caroline kruger [facility] 11/21/2019 11:10:15 What Is Your Level Of Alcohol Consumption? Occasional Information not available 10/24/2020 What Is Your Level Of Caffeine Consumption? Moderate Information not available 10/24/2020 What Was The Date Of Your Most Recent Tobacco Screening? 10/24/2020 Information not available 10/24/2020 Do You Use Any Illicit Or Recreational Drugs? No Information not available 10/24/2020 Do You Or Have You Ever Used Any Other Forms Of Tobacco Or Nicotine? No Information not available 10/24/2020 Sex: Male Functional Status None recorded. Mental Status None recorded. Family History Relationship Description Onset Age of this Age Resolved Age Notes Father No current problems or disability Mother No current problems or disability Medical History Condition Response Cancer Y Diabetes Y Past Encounters Encounter ID Performer Location Encounter Start Date Encounter Closed Date Diagnosis/Indication Diagnosis SNOMED-CT Code [id number] Momo delacruz MD, PHD [facility] [address] [place] [id number] 11/21/2019 10:45:55 11/21/2019 15:00:28 Malignant tumor of prostate [id number] Caroline [facility] [address] [place] [id number] 11/28/2019 09:57:13 02/06/2020 03:54:17 [id number] Momo delacruz MD, PHD [facility] [address] [place] [address] 01/02/2020 08:46:59 01/02/2020 14:22:16 Malignant tumor of prostate 883123701 [id number] Momo delacruz MD, PHD [place] [address] [place] [address] 05/01/2020 09:26:51 05/01/2020 12:03:29 Malignant tumor of prostate 709810318 Primary er ectile dysfunction 373925684 [id number] Momo delacruz MD, PHD [facility] [address] [place] [address] 10/24/2020 10:28:04 10/27/2020 16:45:05 Carcinoma of prostate 236716625 Malignant tumor of prostate 758911216 Primary er ectile dysfunction 496544349 Male urina ry stress incontinence 005914713 Health Concerns Section Related Observation LastModified by Organization Detai ls LastModified Time None Recorded Concern Status LastModified by Organization Details LastModified Time None Recorded Advance Directives Directive None Recorded Payers Encounter Date Sequence Insurance Name Policy Number Policy Archibald Covered Member ID Archibald Member ID Guarantor Name 10/24/2020 1 [facility] [id number] Julien Ridley [id number] Julien Ridley 05/01/2020 1 [facility] [id number] Julien Ridley [id number] Julien Rickie Ridley 01/02/2020 1 [facility] [id number] Julien Ridley [id number] Julien Ridley 11/28/[address] [place] [address] [id number] Julien Ridley [id number] Julien Ridley 11/21/2019 1 [facility] [id number] Julien Ridley [id number] Julien Ridley Notes Date Note Type Note Provider Name and Address Organization Details Recorded Time 11/21/2019 text/html HPI Notes: 59M s /p RALP 11/06/19 for [id number] [place] 3+4=7 prostate cancer (0/12 LN, -SMS) Overall doing well. Some drainage umbilical incision. Chronic LE edema worse especially R>L. Some hematuria when having BMs. No fever. Eating ok. Minimal pain. CT Cystogram today: small anastomotic leak PSA (07/27/19): 6.5 CONSTANZA: cT1c, 35g (J Carlos) MRI: none Biopsy (08/30/19): 23g, 3/12 cores (LLM, LMB, LMM [place] 3+4=7 up to 40%) Pre-op ED: 2 Momo Holliday MD, PHD [address] [place] [address],[address], [address], [facility] 11/21/2019 14:07:42 01/02/2020 text/html HPI Notes: 59M with [id number] [place] 3+4=7 prostate cancer (0/12 LN, -SMS) s/p RALP 11/06/19. Small anastomotic leak, catheter removed 11/28/19. Overall doing well. C/o some leakage with BMs and position changes. Uses multiple depends per day...... LE u/s to eval for dvt last visit was negative PSA Results 07/27/19: 6.5 01/02/20: <0.04 UF: 4/5 EF: 5/5 Pre-op EF: 2/5 Momo Holliday MD, PHD [address] [place] [address], [address], [facility] 01/02/2020 09:35:54 05/01/2020 text/html HPI Notes: 60M with [id number] [place] 3+4=7 prostate cancer (0/12 LN, -SMS) s/p RALP 11/06/19. Small anastomotic leak, catheter removed 11/28/19. Overall doing well. C/o some leakage with BMs and position changes. Uses 4ppd which is improvement. No problems with incisions. PSA Results 07/27/19: 6.5 01/02/20: <0.04 05/01/20: <0.04 UF: 3/5 EF: 5/5 Pre-op EF: 2/5 Momo Holliday MD, PHD [address] [place] [address],[address], [address], [facility] 05/01/2020 10:48:15 10/24/2020 text/html HPI Notes: 60M with [id number] [place] 3+4=7 prostate cancer (0/12 LN, -SMS) s/p RALP 11/06/19 Overall doing well. C/o some leakage with BMs and position changes and sexual activity. Uses 4ppd still. No problems with incisions. PSA Results 07/27/19: 6.5 01/02/20: <0.04 05/01/20: <0.04 10/24/20: <0.04 UF: 3 EF: 08/06 Pre-op EF: 2/ Momo Holliday MD, PHD [address] [facility],[address], [place], [address], [facility] 10/24/2020 11:30:55
--- OUTSIDE RECORDS SUMMARY | 2023-09-02 07:51 | XMS_ITS | Clinical Summary ---
Author Organization [place] Address [address] [place] [address] Care Team Providers Care Oil Refinery Process Technician Name Role Phone Munir Sahu MD Primary [...] Advance Directives For more information, please contact: [phone] * Full Code (Latest Code Status on File) Date Activated Date Inactivated Comments 11/06/2019 2:19 PM 11/07/2019 9:06 PM All basic and advanced life-sustaining interventions are performed as appropriate Question Answer Comments Code status determined by: Unable to det ermine; FULL CODE until documents or legal decision maker available Care Teams Oil Refinery Process Technician Relationship Specialty Start Date End Date Munir Sahu MD PCP - General Family Practice 10/22/19
--- OUTSIDE RECORDS SUMMARY | 2023-09-02 07:51 | XMS_ITS | Referral Summary ---
Author Organization [place] Address [address] [place] [address] Care Team Providers Care Flask Carrier Name Role Phone Munir Sahu MD Primary [...] Advance Directives For more information, please contact: [phone] * Full Code (Latest Code Status on File) Date Activated Date Inactivated Comments 11/06/2019 2:19 PM 11/07/2019 9:06 PM All basic and advanced life-sustaining interventions are performed as appropriate Question Answer Comments Code status determined by: Unable to det ermine; FULL CODE until documents or legal decision maker available Care Teams Flask Carrier Relationship Specialty Start Date End Date Munir Sahu MD PCP - General Family Practice 10/22/19
== END 2023-09-02 07:51 | disposition home or self-care (01) ==
LOC: WOUND 07:50
PROVIDERS: PCP Family Medicine; Visit Provider Nurse Practitioner Family
DX: I87.2 Venous insufficiency (chronic) (peripheral) (principal); E11.622 Type 2 diabetes mellitus with other skin ulcer; L97.322 Non-pressure chronic ulcer of left ankle with fat layer exposed; I89.0 Lymphedema, not elsewhere classified; Z79.84 Long term (current) use of oral hypoglycemic drugs
CPT/HCPCS: 11042; 11045; 87070; 87186

== ENCOUNTER 2023-09-09 07:47 | Outpatient (CLI) | payer MEDICAID, SELFPAY ==
--- OUTSIDE RECORDS SUMMARY | 2023-09-09 07:49 | XMS_ITS | Data Portability ---
Author Organization [place] [facility] [place] [facility] Address [address] [facility] [address] [place] [address] Care Team Providers Care Kitchen Worker Name Role Phone GORDY SOL Primary Care Provider Assessment Encounter Date Assessment Date Assessment LastModified by Organization Details LastModified Time 11/21/2019 11/21/2019 59M with [id number] [place] 3+4=7 prostate cancer s/p RALP. Discussed pathology, risk of recurrence, need for ongoing PSA monitoring. Small anastomotic leak, will cont Choi x 1 more week. Worsened LE edema, likely chronic, but will check LE u/s to be sure no DVT. [email or web address] Not available 11/21/2019 14:07:03 01/02/2020 01/02/2020 59M with [id number] [place] 3+4=7 prostate cancer s/p RALP. 1) Prostate cancer - f/u 4 months with PSA 2) EVETTE, moderate - cont Kegels - consider PFPT 3) ED - Cialis PRN [email or web address] Not available 01/02/2020 09:34:03 05/01/2020 05/01/2020 60M with [id number] [place] 3+4=7 prostate cancer s/p RALP 6 months ago. MICHAEL. 1) Prostate cancer - f/u 6 months with PSA 2) EVETTE, moderate - cont Kegels - consider PFPT 3) ED - Cialis PRN [email or web address] Not available 05/01/2020 10:47:29 10/24/2020 10/24/2020 60M with [id number] [place] 3+4=7 prostate cancer s/p RALP 1 year [...] floor therap y referr al 2020 021 [facility], [address], [facility] [address], [place], [address], 09:57:49 Procedures None record ed. Surgeries None record ed. Imaging None record ed. Medication Orders None record ed. Patient TargetsNo targets recorded. Patient Instructions Encounter Date Encounter Id Patient Instructions Last Modified By Organization Details Last Modified Time 11/28/2019 [id number] To follow up sumaya Doshi at his [...] Not Available [facility] [address], [place], [address], 05/01/2020 10:40:29 02/11/2020 lab* PSA <0.04 normal Not Available Not Available 01/07/2020 12:33:24 01/02/2020 PSA, serum or plasm a PSA, Total <0.04 ng/Ml Not Available [facility] [address], [place], [address], 01/02/2020 09:14:10 10/25/19 21 10/24/2020 PSA, serum or plasm a PSA, Total <0.04n g/mL Not Available [facility] [address], [place], [address], 10/24/2020 10:45:30 10/12/1910/11/2019 MRI, pelvi s, w/wo contr ast No observ ation record ed. [email or web address] [facility] [address] [place], [address], 11/02/2019 10:40:22 10/16/19 20 10/11/2019 MRI, pelvi [...] Carcinoma of prostate Active 11/21/19 Caroline kruger [facility] 11/21/2019 10:59:25 Male urinary stress incontinence Active 05/01/19 Momo delacruz MD, PHD [address] [place] [address],[place] [address], [place], [address], [facility] 05/01/2020 10:47:38 Primary erectile dysfunction Active 05/01/19 21 Momo delacruz MD, PHD [address] [place] [address], [phone], [facility] 05/01/2020 10:47:58 Problem Notes None recorded. Procedures Surgical History Date Name Laterality Status Provider Name and Address Organization Details Recorded Time 10/25/19 21 Blood Draw/ASSISTANT PROJECT MANAGER/PSA RESULTS completed Momo baez MD, PHD [address] [place] [address], [address] [place] [address], [facility] 10/24/2020 10:45:26 05/01/19 21 Blood Draw/ASSISTANT PROJECT MANAGER/PSA RESULTS completed Momo baez MD, PHD [address] [place] [address], [address] [place] [address], [facility] 05/01/2020 10:40:25 01/02/20 20 Blood Draw/ASSISTANT PROJECT MANAGER/PSA RESULTS completed Janice kruger, [facility] 01/02/2020 09:14:04 11/28/19 20 Choi Catheter Removal completed Caroline Smith [facility], [facility] 02/04/2020 12:00:10 Prostatectomy completed Momo baez MD, PHD [address] [place] [address], [phone], [facility] 10/24/2020 10:44:48 colonoscopy completed Monica Awan [facility] 12/09/2020 10:47:07 Imaging Results Imaging Date Name Status LastModified by Organiz ation Details LastModified Time 10/11/2019 MRI, pelvis, w/wo contrast completed [email or web address] [facility] [address] [place], [place], [address], 11/02/2019 10:40:22 10/11/2019 MRI, pelvis, w/wo contrast [...] Name and Address Organization Details Recorded Time [id number] silver medicatio n Not available Not available Not available 11/21/2019 [id number] RxNorm [facility] 11:09:54 [id number] adhesive tape environme nt,medica tion Not available Not available Not available 11/21/2019 Caroline [facility] 11:10:01 Medications Name Sig Start [...] Updated DateTime 01/02/2020 180.34 cm 39.3 kg/m2 299479.05 g Caroline Hoopertobias [facility] 01/02/2020 09:09:40 Date Recorded Body height Body mass index (BMI) Body weight Provider Name and Address Organization Details Last Updated DateTime 05/01/2020 180.34 cm 39.3 kg/m2 639314.05 g Momo baez MD, PHD [address] [facility],[address], [place], [address], [facility] 05/01/2020 10:39:59 Date Recorded Body height Body mass index (BMI) Body weight Provider Name and Address Organization Details Last Updated DateTime 10/24/2020 180.34 cm 39.7 kg/m2 486175.83 g Momo baez MD, PHD [address] [facility],[address], [place], [address], [facility] 10/24/2020 10:44:13 Date Recorded Body height Body mass index (BMI) Body weight Provider Name and Address Organization Details Last Updated DateTime 11/21/2019 180.34 cm 39.3 kg/m2 653354.05 g Caroline Smith [facility] 11/21/2019 11:09:04 Social History Question Answer Notes LastModified by Organizat ion Details LastModified Time Tobacco Smoking Status Never Smoker Caroline kruger [facility] 11/21/2019 11:10:15 What Is [...] Encounter Closed Date Diagnosis/Indication Diagnosis SNOMED-CT Code [id number] Momo delacruz MD, PHD [facility] [address] [place] [address] 11/21/2019 10:45:55 11/21/2019 15:00:28 Malignant tumor of prostate [id number] Caroline IRVIN[facility] [address] [place] [address] 11/28/2019 09:57:13 02/06/2020 03:54:17 [id number] Momo delacruz MD, PHD [facility] [address] [place] [address] 01/02/2020 08:46:59 01/02/2020 14:22:16 Malignant tumor of prostate [id number] Momo delacruz MD, PHD [place] [address] [place] [address] 05/01/2020 09:26:51 05/01/2020 12:03:29 Malignant tumor of prostate 925623950 Primary er ectile dysfunction [id number] Momo delacruz MD, PHD [facility] [address] [address] 10/24/2020 10:28:04 10/27/2020 16:45:05 Carcinoma of prostate 036770947 Malignant tumor of prostate 955327983 Primary er ectile dysfunction 213827168 Male urina ry stress incontinence [id number] Health Concerns Section Related Observation LastModified by Organization Detai ls LastModified Time None Recorded Concern Status LastModified by Organization Details LastModified Time None Recorded Advance Directives Directive None Recorded Payers Encounter Date Sequence Insurance Name Policy Number Policy Archibald Covered Member ID Archibald Member ID Guarantor Name 10/24/2020 1 [facility] [id number] Julien Ridley [id number] Julien Ridley 05/01/2020 1 [facility] [id number] Julien Ridley [id number] Julien Rickie Ridley 01/02/2020 1 [facility] [id number] Julien Ridley [id number] Julien Ridley 11/28/[address] [place] [id number] Julien Ridley [id number] Julien Ridley 11/21/2019 1 [facility] [id number] Julien Ridley [id number] Julien Ridley Notes Date Note Type Note Provider Name and Address Organization Details Recorded Time 11/21/2019 text/html HPI Notes: 59M s /p RALP 11/06/19 for [id number] [place] 3+4=7 prostate cancer (0/12 LN, -SMS) Overall [...] Pre-op ED: 2 Momo Holliday MD, PHD [address] [place] [address],[address], [address], [facility] 11/21/2019 14:07:42 01/02/2020 text/html HPI Notes: 59M with [id number] [place] 3+4=7 prostate cancer (0/12 LN, -SMS) s/p RALP 11/06/19. Small anastomotic leak, catheter removed 11/28/19. Overall doing well. C/o some leakage with BMs and position changes. Uses multiple depends per day...... LE u/s to eval for dvt last visit was negative PSA Results 07/27/19: 6.5 01/02/20: <0.04 UF: 4/5 EF: 5/5 Pre-op EF: 2/5 Momo Holliday MD, PHD [address] [place] [address], [phone], [facility] 01/02/2020 09:35:54 05/01/2020 text/html HPI Notes: 60M with [id number] [place] 3+4=7 prostate cancer (0/12 LN, -SMS) s/p RALP 11/06/19. Small anastomotic leak, catheter removed 11/28/19. Overall doing well. C/o some leakage with BMs and position changes. Uses 4ppd which is improvement. No problems with incisions. PSA Results 07/27/19: 6.5 01/02/20: <0.04 05/01/20: <0.04 UF: 3/5 EF: 5/5 Pre-op EF: 2/5 Momo Holliday MD, PHD [address] [place] [address],[address], [address], [facility] 05/01/2020 10:48:15 10/24/2020 text/html HPI Notes: 60M with [id number] [place] 3+4=7 prostate cancer (0/12 LN, -SMS) s/p RALP 11/06/19 Overall doing well. C/o some leakage with BMs and position changes and sexual activity. Uses 4ppd still. No problems with incisions. PSA Results 07/27/19: 6.5 01/02/20: <0.04 05/01/20: <0.04 10/24/20: <0.04 UF: 3 EF: 08/06 Pre-op EF: 2/ Momo Holliday MD, PHD [address] [facility],[address], [place], [address], [facility] 10/24/2020 11:30:55
--- OUTSIDE RECORDS SUMMARY | 2023-09-09 07:49 | XMS_ITS | Referral Summary ---
Author Organization [facility] Address [address] [place] [address] Care Team Providers Care Chip Tuner Name Role Phone Munir Sahu MD Primary [...] Advance Directives For more information, please contact: [phone] * Full Code (Latest Code Status on File) Date Activated Date Inactivated Comments 11/06/2019 2:19 PM 11/07/2019 9:06 PM All basic and advanced life-sustaining interventions are performed as appropriate Question Answer Comments Code status determined by: Unable to det ermine; FULL CODE until documents or legal decision maker available Care Teams Chip Tuner Relationship Specialty Start Date End Date Munir Sahu MD PCP - General Family Practice 10/22/19
--- OUTSIDE RECORDS SUMMARY | 2023-09-09 07:49 | XMS_ITS | Clinical Summary ---
Author Organization [facility] Address [place], [place] [address] Care Team Providers Care Sap Enterprise Portal Consultant Name Role Phone Cora Peña MD Primary [...] Overview: Overview: Venous Stasis Ulcer with Inflammation Encounters Date Type Department Care Team Description 09/05/2023 Lab Requisition [facility] [phone] Unknown, Doctor from Last 3 Months Social History Tobacco Use Types Packs/Day Years [...] (1 of 2) 2011 COVID-19 vaccine series (3 2022-24 season) 2022 07/10/2020, 06/12/2020 Influenza for age 50-64 12/04/2023 Pneumococcal series for age 6-64 Aged Out No longer eligible b ased on patient's age to complete this topic Procedures Procedure Name Priority Date/Time Associated Diagnosis Comments REFERRAL SUSCEPTIBILITY Routine 09/02/19 8:26 AM CDT from Last 3 Months Results * (ABNORMAL) REFERRAL SUSCEPTIBILITY (09/02/2023 8:26 AM CDT) CULTURE RESULT(A) 09/07/2023 10:49 AM CDT [facility] CULTURE Streptococcus dysgalactiae (Beta Strep group C or G) 09/07/2023 10:49 AM CDT [facility] Other (Left ankle) Client Collect / Unknown 09/02/2023 8:26 AM CDT 09/05/2023 2:18 PM CDT Narrative Organism Antibiotic Method Susceptibility Streptococcus dysgalactiae ( Beta Strep group C or G) PENICILLIN <=0.06: S Streptococcus dysgalactiae ( Beta Strep group C or G) CEFTRIAXONE <=0.12: S Streptococcus dysgalactiae ( Beta Strep group C or G) ERYTHROMYCIN <=0.12: S Streptococcus dysgalactiae ( Beta Strep group C or G) CLINDAMYCIN <=0.25: S Streptococcus dysgalactiae ( Beta Strep group C or G) VANCOMYCIN 0.5: S Streptococcus dysgalactiae ( Beta Strep group C or G) AMPICILLIN <=0.25: S Streptococcus dysgalactiae ( Beta Strep group C or G) CLARITHROMYCIN S Doctor Unknown MICROBIOLOGY [facility] [address] [place] [address], from Last 3 Months Advance Directives * Full Code (Latest Code Status on File) Date Activated Date Inactivated Comments 09/19/2017 2:10 PM 09/22/2017 8:18 PM Question Answer Comments Code Status Discussion: Not Discussed Care Teams Sap Enterprise Portal Consultant Relationship Specialty Start Date End Date Cora Peña MD PCP - General Emergency Medicine 09/22/17
--- OUTSIDE RECORDS SUMMARY | 2023-09-09 07:49 | XMS_ITS | Clinical Summary ---
Author Organization [place] Address [address] [place] [address] Care Team Providers Care Oral Therapist Name Role Phone Munir Sahu MD Primary [...] Advance Directives For more information, please contact: [phone] * Full Code (Latest Code Status on File) Date Activated Date Inactivated Comments 11/06/2019 2:19 PM 11/07/2019 9:06 PM All basic and advanced life-sustaining interventions are performed as appropriate Question Answer Comments Code status determined by: Unable to det ermine; FULL CODE until documents or legal decision maker available Care Teams Oral Therapist Relationship Specialty Start Date End Date Munir Sahu MD PCP - General Family Practice 10/22/19
== END 2023-09-09 07:48 | disposition home or self-care (01) ==
LOC: WOUND 07:47
PROVIDERS: PCP Family Medicine; Visit Provider Nurse Practitioner Family
DX: I87.2 Venous insufficiency (chronic) (peripheral) (principal); E11.622 Type 2 diabetes mellitus with other skin ulcer; L97.322 Non-pressure chronic ulcer of left ankle with fat layer exposed; B96.20 Unspecified Escherichia coli [E. coli] as the cause of diseases classified elsewhere; I89.0 Lymphedema, not elsewhere classified; Z79.84 Long term (current) use of oral hypoglycemic drugs
CPT/HCPCS: 11042; 11045; 96372; J0696

== ENCOUNTER 2023-09-16 08:06 | Outpatient (CLI) | payer MEDICAID, SELFPAY ==
--- OUTSIDE RECORDS SUMMARY | 2023-09-16 08:09 | XMS_ITS | Clinical Summary ---
Author Organization [facility] Address [place], [place] [address] Care Team Providers Care Word Processor Technician Name Role Phone Cora Peña MD Primary [...] Department Care Team Description 09/05/2023 Lab Requisition [facility] [phone] Unknown, Doctor from Last 3 Months Social [...] 09/19/2017 10:33 AM CDT Plan of Treatment Upcoming Encounters Date Type Department Care Team (Late st Contact Info) Description 10/03/2023 1:00 PM CDT Orders Only [facility] [address] [place] [address] Health Maintenance Due Date Last Done Comments [...] (1 of 2) 2011 COVID-19 vaccine series ( season) 2022 07/10/2020, 06/12/2020 Influenza for age 50-64 12/04/2023 Pneumococcal series for age 6-64 Aged Out No longer eligible b ased on patient's age to complete this topic Procedures Procedure Name Priority Date/Time Associated Diagnosis Comments REFERRAL SUSCEPTIBILITY Routine 09/02/19 8:26 AM CDT from Last 3 Months Results * (ABNORMAL) REFERRAL SUSCEPTIBILITY (09/02/2023 8:26 AM CDT) CULTURE RESULT(A) 09/07/2023 10:49 AM CDT [facility] CULTURE Streptococcus dysgalactiae (Beta Strep group C or G) 09/07/2023 10:49 AM CDT [facility] Other (Left ankle) Client [...] or G) CLARITHROMYCIN S Doctor Unknown MICROBIOLOGY [facility] [address] [place] [address], from Last 3 Months Advance Directives * Full Code (Latest Code Status on File) Date Activated Date Inactivated Comments 09/19/2017 2:10 PM 09/22/2017 8:18 PM Question Answer Comments Code Status Discussion: Not Discussed Care Teams Word Processor Technician Relationship Specialty Start Date End Date Cora Peña MD PCP - General Emergency Medicine 09/22/17
--- OUTSIDE RECORDS SUMMARY | 2023-09-16 08:09 | XMS_ITS | Referral Summary ---
Author Organization [facility] Address [address] [place] [address] Care Team Providers Care Flame Annealing Machine Operator Name Role Phone Munir Sahu MD Primary Care Provider [phone] Allergies Active Allergy Reactions Criticality Noted Date [...] Advance Directives For more information, please contact: [phone] * Full Code (Latest Code Status on File) Date Activated Date Inactivated Comments 11/06/2019 2:19 PM 11/07/2019 9:06 PM All basic and advanced life-sustaining interventions are performed as appropriate Question Answer Comments Code status determined by: Unable to det ermine; FULL CODE until documents or legal decision maker available Care Teams Flame Annealing Machine Operator Relationship Specialty Start Date End Date Munir Sahu MD PCP - General Family Practice 10/22/19
--- OUTSIDE RECORDS SUMMARY | 2023-09-16 08:09 | XMS_ITS | Clinical Summary ---
Author Organization [place] Address [address] [place] [address] Care Team Providers Care Insulation And Flooring Assembler Name Role Phone Munir Sahu MD Primary Care Provider [phone] Allergies Active Allergy Reactions Criticality Noted Date [...] Advance Directives For more information, please contact: [phone] * Full Code (Latest Code Status on File) Date Activated Date Inactivated Comments 11/06/2019 2:19 PM 11/07/2019 9:06 PM All basic and advanced life-sustaining interventions are performed as appropriate Question Answer Comments Code status determined by: Unable to det ermine; FULL CODE until documents or legal decision maker available Care Teams Insulation And Flooring Assembler Relationship Specialty Start Date End Date Munir Sahu MD PCP - General Family Practice 10/22/19
--- OUTSIDE RECORDS SUMMARY | 2023-09-16 08:09 | XMS_ITS | Data Portability ---
Author Organization [place] [facility] Address [address] [place] [address] Care Team Providers Care Camp Dishwasher Name Role Phone GORDY SOL Primary Care Provider [phone] Assessment Encounter Date Assessment Date Assessment LastModified by Organization Details LastModified Time 11/21/2019 11/21/2019 59M with [id number] [place] 3+4=7 prostate cancer s/p RALP. Discussed pathology, risk of recurrence, need for ongoing PSA monitoring. Small anastomotic leak, will cont Choi x 1 more week. Worsened LE edema, likely chronic, but will check LE u/s to be sure no DVT. [email or web address] Not available 11/21/2019 14:07:03 01/02/2020 01/02/2020 59M with [id number] [place] 3+4=7 prostate cancer s/p RALP. 1) Prostate cancer - f/u 4 months with PSA 2) EVETTE, moderate - cont Kegels - consider PFPT 3) ED - Cialis PRN [email or web address] Not available 01/02/2020 09:34:03 05/01/2020 05/01/2020 60M with [id number] [place] 3+4=7 prostate cancer s/p RALP 6 months ago. MICHAEL. 1) Prostate cancer - f/u 6 months with PSA 2) EVETET, moderate - cont Kegels - consider PFPT 3) ED - Cialis PRN [email or web address] Not available 05/01/2020 10:47:29 10/24/2020 10/24/2020 60M with [id number] [place] 3+4=7 prostate cancer s/p RALP 1 year [...] floor therap y referr al 2020 021 [facility], [address], [facility] [address], [place], [address], 09:57:49 Procedures None record ed. Surgeries None record ed. Imaging None record ed. Medication Orders None record ed. Patient TargetsNo targets recorded. Patient Instructions Encounter Date Encounter Id Patient Instructions Last Modified By Organization Details Last Modified Time 11/28/2019 [id number] To follow up sumaya Doshi at his [...] Not Available [facility] [address], [place], [address], 05/01/2020 10:40:29 02/11/2020 lab* PSA <0.04 normal Not Available Not Available 01/07/2020 12:33:24 01/02/2020 PSA, serum or plasm a PSA, Total <0.04 ng/Ml Not Available [facility] [address], [place], [address], 01/02/2020 09:14:10 10/25/19 21 10/24/2020 PSA, serum or plasm a PSA, Total <0.04n g/mL Not Available [facility] [address], [place], [address], 10/24/2020 10:45:30 10/12/1910/11/2019 MRI, pelvi s, w/wo contr ast No observ ation record ed. [email or web address] [facility] [address] [place], [address], 11/02/2019 10:40:22 10/16/19 20 10/11/2019 MRI, pelvi [...] Carcinoma of prostate Active 11/21/19 Caroline kruger [facility] 11/21/2019 10:59:25 Male urinary stress incontinence Active 05/01/19 Momo delacruz MD, PHD [address] [place] [address],[place] [address], [place], [address], [facility] 05/01/2020 10:47:38 Primary erectile dysfunction Active 05/01/19 21 Momo delacruz MD, PHD [address] [place] [address], [address], [facility] 05/01/2020 10:47:58 Problem Notes None recorded. Procedures Surgical History Date Name Laterality Status Provider Name and Address Organization Details Recorded Time 10/25/19 21 Blood Draw/GROUNDS SUPERVISOR/PSA RESULTS completed Momo baez MD, PHD [address] [place] [address], [address] [place] [address], [facility] 10/24/2020 10:45:26 05/01/19 21 Blood Draw/GROUNDS SUPERVISOR/PSA RESULTS completed Momo baez MD, PHD [address] [place] [address], [address] [place] [address], [facility] 05/01/2020 10:40:25 01/02/20 20 Blood Draw/GROUNDS SUPERVISOR/PSA RESULTS completed Janice kruger, [facility] 01/02/2020 09:14:04 11/28/19 20 Choi Catheter Removal completed Caroline Smith [facility], [facility] 02/04/2020 12:00:10 Prostatectomy completed Momo baez MD, PHD [address] [place] [address], [address], [facility] 10/24/2020 10:44:48 colonoscopy completed Monica Awan [facility] 12/09/2020 10:47:07 Imaging Results Imaging Date Name Status LastModified by Organiz ation Details LastModified Time 10/11/2019 MRI, pelvis, w/wo contrast completed [email or web address] [facility] [address] [place], [place], [address], 11/02/2019 10:40:22 10/11/2019 MRI, pelvis, w/wo contrast [...] Name and Address Organization Details Recorded Time [id number] silver medicatio n Not available Not available Not available 11/21/2019 [id number] RxNorm [facility] 11:09:54 [id number] adhesive tape environme nt,medica tion Not available Not available Not available 11/21/2019 [facility] 11:10:01 Medications Name Sig Start [...] Updated DateTime 01/02/2020 180.34 cm 39.3 kg/m2 937286.05 g Caroline Hoopertobias [facility] 01/02/2020 09:09:40 Date Recorded Body height Body mass index (BMI) Body weight Provider Name and Address Organization Details Last Updated DateTime 05/01/2020 180.34 cm 39.3 kg/m2 839242.05 g Momo baez MD, PHD [address] [facility] [facility] [address], [place], [address], [facility] 05/01/2020 10:39:59 Date Recorded Body height Body mass index (BMI) Body weight Provider Name and Address Organization Details Last Updated DateTime 10/24/2020 180.34 cm 39.7 kg/m2 807314.83 g Momo baez MD, PHD [address] [facility],[address], [place], [address], [facility] 10/24/2020 10:44:13 Date Recorded Body height Body mass index (BMI) Body weight Provider Name and Address Organization Details Last Updated DateTime 11/21/2019 180.34 cm 39.3 kg/m2 094748.05 g Caroline Smith [facility] 11/21/2019 11:09:04 Social History Question Answer Notes LastModified by Organizat ion Details LastModified Time Tobacco Smoking Status Never Smoker Caroline kruger [facility] 11/21/2019 11:10:15 What Is Your Level [...] problems or disability Medical History Condition Response Diabetes Y Cancer Y Past Encounters Encounter ID Performer Location Encounter Start Date Encounter Closed Date Diagnosis/Indication Diagnosis SNOMED-CT Code [id number] Momo delacruz MD, PHD [facility] [address] [place] [address] 11/21/2019 10:45:55 11/21/2019 15:00:28 Malignant tumor of prostate [id number] Caroline IRVIN[facility] [address] [place] [id number] 11/28/2019 09:57:13 02/06/2020 03:54:17 [id number] Momo delacruz MD, PHD [facility] [address] [address] 01/02/2020 08:46:59 01/02/2020 14:22:16 Malignant tumor of prostate [id number] Momo delacruz MD, PHD [place] [address] [place] [address] 05/01/2020 09:26:51 05/01/2020 12:03:29 Malignant tumor of prostate 719858606 Primary er ectile dysfunction [id number] Momo delacruz MD, PHD [facility] [address] [address] 10/24/2020 10:28:04 10/27/2020 16:45:05 Carcinoma of prostate 278520025 Malignant tumor of prostate 936971839 Primary er ectile dysfunction 009258124 Male urina ry stress incontinence 783055722 Health Concerns Section Related Observation LastModified by Organization Detai ls LastModified Time None Recorded Concern Status LastModified by Organization Details LastModified Time None Recorded Advance Directives Directive None Recorded Payers Encounter Date Sequence Insurance Name Policy Number Policy Archibald Covered Member ID Archibald Member ID Guarantor Name 10/24/2020 1 [facility] [id number] Julien Ridley [id number] Julien Ridley 05/01/2020 1 [facility] [id number] Julien Ridley [id number] Julien Rickie Ridley 01/02/2020 1 [facility] [id number] Julien Ridley [id number] Julien Ridley 11/28/[address] [place] [address] [id number] Julien Ridley [id number] Julien Ridley 11/21/2019 1 [facility] [id number] Julien Ridley [id number] Julien Ridley Notes Date Note Type Note Provider Name and Address Organization Details Recorded Time 11/21/2019 text/html HPI Notes: 59M s /p RALP 11/06/19 for [id number] [place] 3+4=7 prostate cancer (0/12 LN, -SMS) Overall doing well. Some drainage umbilical incision. Chronic LE edema worse especially R>L. Some hematuria when having BMs. No fever. Eating ok. Minimal pain. CT Cystogram today: small anastomotic leak PSA (07/27/19): 6.5 CONSTANZA: cT1c, 35g (J Carlos) MRI: none Biopsy (08/30/19): 23g, 3/12 cores (LLM, LMB, LMM [place] 3+4=7 up to 40%) Pre-op ED: 2 Momo Holliday MD, PHD [address] [place] [address],[address], [address], [facility] 11/21/2019 14:07:42 01/02/2020 text/html HPI Notes: 59M with [id number] [place] 3+4=7 prostate cancer (0/12 LN, -SMS) s/p RALP 11/06/19. Small anastomotic leak, catheter removed 11/28/19. Overall doing well. C/o some leakage with BMs and position changes. Uses multiple depends per day...... LE u/s to eval for dvt last visit was negative PSA Results 07/27/19: 6.5 01/02/20: <0.04 UF: 4/5 EF: 5/5 Pre-op EF: 2/5 Momo Holliday MD, PHD [address] [place] [address], [address], [facility] 01/02/2020 09:35:54 05/01/2020 text/html HPI Notes: 60M with [id number] [place] 3+4=7 prostate cancer (0/12 LN, -SMS) s/p RALP 11/06/19. Small anastomotic leak, catheter removed 11/28/19. Overall doing well. C/o some leakage with BMs and position changes. Uses 4ppd which is improvement. No problems with incisions. PSA Results 07/27/19: 6.5 01/02/20: <0.04 05/01/20: <0.04 UF: 3/5 EF: 5/5 Pre-op EF: 2/5 Momo Holliday MD, PHD [address] [place] [address],[address], [address], [facility] 05/01/2020 10:48:15 10/24/2020 text/html HPI Notes: 60M with [id number] [place] 3+4=7 prostate cancer (0/12 LN, -SMS) s/p RALP 11/06/19 Overall doing well. C/o some leakage with BMs and position changes and sexual activity. Uses 4ppd still. No problems with incisions. PSA Results 07/27/19: 6.5 01/02/20: <0.04 05/01/20: <0.04 10/24/20: <0.04 UF: 3 EF: 08/06 Pre-op EF: 2/ Momo Holliday MD, PHD [address] [facility],[address], [place], [address], [facility] 10/24/2020 11:30:55
== END 2023-09-16 08:07 | disposition home or self-care (01) ==
LOC: WOUND 08:07
PROVIDERS: PCP Family Medicine; Visit Provider Nurse Practitioner Family
DX: I87.2 Venous insufficiency (chronic) (peripheral) (principal); E11.622 Type 2 diabetes mellitus with other skin ulcer; L97.322 Non-pressure chronic ulcer of left ankle with fat layer exposed
CPT/HCPCS: 11042; 11045

== ENCOUNTER 2023-10-03 15:08 | Outpatient (CLI) | payer OTHER, SELFPAY ==
--- OUTSIDE RECORDS SUMMARY | 2023-10-03 15:11 | XMS_ITS | Clinical Summary ---
Author Organization [facility] Address [address] [place] [address] Care Team Providers Care Solidworks Mechanical Designer Name Role Phone Munir Sahu MD Primary [...] Advance Directives For more information, please contact: [phone] * Full Code (Latest Code Status on File) Date Activated Date Inactivated Comments 11/06/2019 2:19 PM 11/07/2019 9:06 PM All basic and advanced life-sustaining interventions are performed as appropriate Question Answer Comments Code status determined by: Unable to det ermine; FULL CODE until documents or legal decision maker available Care Teams Solidworks Mechanical Designer Relationship Specialty Start Date End Date Munir Sahu MD PCP - General Family Practice 10/22/19
--- OUTSIDE RECORDS SUMMARY | 2023-10-03 15:11 | XMS_ITS | Referral Summary ---
Author Organization [facility] Address [address] [place] [address] Care Team Providers Care Information Assurance Manager Name Role Phone Munir Sahu MD Primary [...] Advance Directives For more information, please contact: [phone] * Full Code (Latest Code Status on File) Date Activated Date Inactivated Comments 11/06/2019 2:19 PM 11/07/2019 9:06 PM All basic and advanced life-sustaining interventions are performed as appropriate Question Answer Comments Code status determined by: Unable to det ermine; FULL CODE until documents or legal decision maker available Care Teams Information Assurance Manager Relationship Specialty Start Date End Date Munir Sahu MD PCP - General Family Practice 10/22/19
--- OUTSIDE RECORDS SUMMARY | 2023-10-03 15:12 | XMS_ITS | Clinical Summary ---
Author Organization [employer] [facility] Address [place], [place] [address] Care Team Providers Care Weight And Balance Control Agent Name Role Phone Munir Sahu MD Primary Care Provider + [facility], [place] Unavailable [phone] Allergies Active Allergy Reactions Criticality Noted Date Comments Adhesive Tape-Silicones Rash 09/30/2023 Silver Rash 06/17/2017 Medications Medication Sig Dispensed Refills Start Date End Date Status blood-glucose meterIndications: Type 2 diabetes mellitus with complication, without [...] 4 times daily. 100 Each 09/22/2017 Active SITagliptin phosphate (Januvia) 50 mg tablet Take 50 mg by mouth once daily. Active atorvastatin (LIPITOR) 80 mg tabletIndications :CAD, multiple vessel,Type 2 diabetes mellitus with complication (HC) Take 1 Tablet (80 mg) by mouth at bedtime. 30 Tablet 09/28/2023 Active clopidogreL (PLAVIX) 75 mg tabletIndications :NSTEMI (non-ST elevated myocardial infarction) (HC) Take 1 Tablet (75 mg) by mouth once daily in the morning. 30 Tablet 09/28/2023 Active aspirin chewable 81 mg chewable tabletIndications :NSTEMI (non-ST elevated myocardial infarction) (HC),CAD, multiple vessel,Type 2 diabetes mellitus with complication (HC) Take 1 Tablet (81 mg) by mouth or nasogastric tube once daily. 30 Tablet 09/28/2023 Active insulin glargine, U-100, (Lantus Solostar U-100 Insulin) 100 unit/mL (3 mL) penIndications:Ty pe 2 diabetes mellitus with complication (HC) Inject 22 units subcutaneous once daily. Product desired: LANTUS SOLOSTAR (or brand of glargine as covered by insurance) 9 mL 09/28/2023 Active nitroglycerin (NITROSTAT) 0.4 mg sublingual tabletIndications :CAD, multiple vessel Place 1 Tablet (0.4 mg) under the tongue every 5 minutes if needed for Chest pain 1st choice. Up to 3 tablets in 15 minutes. 20 Tablet 09/28/2023 Active valsartan (DIOVAN) 40 mg tabletIndications :NSTEMI (non-ST elevated myocardial infarction) (HC),CAD, multiple vessel,Essential hypertension Take 1 Tablet (40 mg) by mouth once daily. 30 Tablet 09/28/2023 Active Insulin [place], Disposable, (Susana Pen Needle) 32 gauge x 5/32 Use as directed to inject insulin. Remove the 2 covers on the insulin pen needle before administering insulin dose. 100 Each 09/28/2023 Active acetaminophen (TYLENOL) 325 mg tabletIndications :NSTEMI (non-ST elevated myocardial infarction) (HC) [The details of the medication are not available because there are pending changes by a home health clinician.] 09/28/2023 Active Additional Information Patient taking differently:650 mg Oral Q 4H PRN, Pain, For mild pain., Max acetaminophen dose: 4000mg in 24 hrs.,Indications: pain, Reported on 09/30/2023 furosemide (LASIX) 40 mg tabletIndications :NSTEMI (non-ST elevated myocardial infarction) (HC),CAD, multiple vessel Take 1 Tablet (40 mg) by mouth two times daily. 60 Tablet 09/28/2023 Active metoprolol succinate (TOPROL XL) 25 mg Sustained-Release tabletIndications :NSTEMI (non-ST elevated myocardial infarction) (HC),CAD, multiple vessel Take 1 Tablet (25 mg) by mouth once daily. 30 Tablet 09/28/2023 Active empagliflozin (Jardiance) 10 mg tabletIndications :Type 2 diabetes mellitus with complication (HC) Take 1 Tablet (10 mg) by mouth once daily. 30 Tablet 09/28/2023 Active oxyCODONE (ROXICODONE) 5 mg immediate release tabletIndications :Cellulitis of right lower extremity Take 1-2 tablets by mouth every 4 hours if needed for Pain (For moderate pain.) 20 tablet 09/22/2017 4 Discontinue d(*Patient states no longer taking) metFORMIN (GLUCOPHAGE XR) 500 mg Extended-Release tabletIndications :Type 2 diabetes mellitus with complication, without long-term current use of insulin (HC) Take 2 tablets by mouth once daily. 30 tablet 09/23/2017 4 Discontinue d(*Patient states no longer taking) glyBURIDE (MICRONASE; DIABETA) 2.5 mg tabletIndications :Type 2 diabetes mellitus with complication, without long-term current use of insulin (HC) Take 1 tablet by mouth once daily before a meal. 20 tablet 09/23/2017 4 Discontinue d(*Patient states no longer taking) SITagliptin phosphate (Januvia) 100 mg tablet Take 100 mg by mouth once daily. 4 Discontinue d(*Patient states no longer taking) glimepiride (AMARYL) 2 mg tablet Take 2 mg by mouth once daily. 4 Discontinue d(*IP Discontinue d) ibuprofen (ADVIL; MOTRIN) 200 mg tablet Take 400-600 mg by mouth every 6 hours if needed for Pain. 4 Discontinue d(*IP Discontinue d) torsemide (DEMADEX) 10 mg tablet Take 10 mg by mouth once daily if needed (leg swelling). 4 Discontinue d(*IP Discontinue d) Active Problems Problem Noted Date Diagnosed Date CAD, multiple vessel 09/26/2023 S/p 3V CABG (SHER-LAD, LISA-ramus, radial-OM), 09/24/2023 Overview: Dr. Dumont NSTEMI (non-ST elevated myocardial infarction) 0 09/18/2023 Lymphedema of both lower extremities 09/19/2017 Type [...] Encounters Date Type Department Care Team Description 10/03/2023 7:00 AM CDT Home Care Visit [facility] [address] [place] [address] Lexi Esteves RN SN - HOME VISIT 10/03/2023 Telephone [facility] [address] [place] [address] Ailyn Varghese RN Home Care (Vascular and or Wound clinic referral is needed. Supplies with [employer]) 09/30/2023 9:30 AM CDT Home Care Visit [facility] [address] [place] [address] Lexi Esteves, CHITRA SN - OASIS START OF CARE 09/30/2023 Plan of Care Documentation [facility] [address] [place] [address] 09/28/2023 Orders Only [facility] [address] [place] [address] Alejandra Lau PA <No scans attached> 09/23/2023 2:03 PM CDT Anesthesia Event [facility] [address] [place] [address] Marylou De Anda MD Ludwig, Margaret J, CRNA 09/23/2023 12:45 PM CDT - 09/23/2023 8:02 PM CDT Surgery [facility] [address] [address] Gregorio Leal MD CORONARY ARTERY BYPASS X 3 WITH RADIAL HARVEST, AND TEMP VENTRICULAR PACING WIRES 09/18/2023 2:58 AM CDT - 09/28/2023 2:30 PM CDT Hospital Encounter [facility] [address] [address] s, U Hospitalist Wendy Cruz, DO [place], MD Cristal Gallardo, Munir Muhammad MD S/p 3V CABG (SHER-LAD, LISA-ramus, radial-OM), 09/23/2023 (Primary Dx); Ulcer of left lower extremity with fat layer exposed (HC) [L97.922]; NSTEMI (non-ST elevated myocardial infarction) (HC); CAD, multiple vessel; Type 2 diabetes mellitus with complication (HC); Essential hypertension Discharge Disposition: Home Health 09/17/2023 7:43 PM CDT - 09/18/2023 1:46 AM CDT Emergency [facility] [address] [place] [address] Pritesh Boyer MD NSTEMI (non-ST elevated myocardial infarction) (HC) (Primary Dx) Discharge Disposition: Health Care Facility Not On List 09/17/2023 Telephone [facility] [address] [place], [place] [id number] Guzman Lovelace MD 09/17/2023 Travel 09/05/2023 Lab Requisition [facility] [phone] Unknown, Doctor from Last 3 Months Social History Tobacco Use Types Packs/Day Years Used Date Smoking Tobacco: Never Smokeless Tobacco: Never Alcohol Use Standard Drinks/Week Comments Yes 0 (1 standard drink = 0.6 oz pur e alcohol) occasional Social Connections Answer Date Recorded Frequency of Communication with Friends and Fami ly 0 09/18/2023 Financial Resource Strain Answer Date R ecorded Difficulty of Paying Living Expenses 3 09/18/2023 Difficulty of Paying Living Expenses Not on file 09/18/2023 Food Insecurity Answer Date Recorded Worried About Running Out of Food in the Last Ye ar 1 09/18/2023 Transportation Needs Answer Date Record ed Lack of Transportation (Medical) 1 09/18/2023 Housing Stability Answer Date Recorded Unable to Pay for Housing in the Last Year 1 09/18/2023 Sex and Gender Information Value Date Recorded Sex Assigned at Not on file Gender Identity Not on file Sexual Orientation Not on file Obstetrics History Last Filed Vital Signs Vital Sign Reading Time Taken Comments Blood Pressure 118/68 10/03/2023 7:02 AM CDT Pulse 72 10/03/2023 7:02 AM CDT Temperature 36.6 ??C (97.9 ??F) 10/03/2023 7:02 AM CD T Respiratory Rate 18 10/03/2023 7:02 AM CDT Oxygen Saturation 95% 10/03/2023 7:02 AM CDT Inhaled Oxygen Concentration - - Weight 135.3 kg (298 lb 3.2 oz) 10/03/2023 7:02 AM CDT Height 177.8 cm (5' 10) 09/30/2023 10: 54 AM CDT Body Mass Index 42.79 09/30/2023 10:54 AM CDT Plan of Treatment Upcoming Encounters Date Type Department Care Team (Late st Contact Info) Description 10/04/2023 2:00 PM CDT Procedure Only [facility] [address] [facility] [address] [place] [address] 10/05/2023 4:00 AM CDT Home Care Visit [place] [id number] [place] [phone] Elvira Reyes RN [address] [place] [address] 10/07/2023 4:00 AM CDT Home Care Visit [place] [address] [place] [phone] Elvira Reyes RN [address] [place] [address] 10/10/2023 4:00 AM CDT Home Care Visit [facility] [address] [place] [phone] Elvira Reyes, RN [address] [place] [address] 10/12/2023 4:00 AM CDT Home Care Visit [address] [place] [address] Elvira Reyes, RN [address], [place] [address] 10/14/2023 4:00 AM CDT Home Care Visit [address] [place] [address] Elvira Reyes, RN [address], [place] [address] 10/17/2023 4:00 AM CDT Home Care Visit [address] [place] [address] Elvira Reyes, RN [address], [place] [address] 10/19/2023 4:00 AM CDT Home Care Visit [address] [phone] Elvira Reyes, RN [address], [place] [address] 10/20/2023 1:00 PM CDT Office Visit [facility] 225 [facility] [address] [place] [phone] Jen Greenberg NP 225 [facility] N [facility] [address] [place] [address] 10/21/2023 4:00 AM CDT Home Care Visit [facility] [address] [place] [address] Elvira Reyes, RN [address] [place] [address] 10/24/2023 4:00 AM CDT Home Care Visit [facility] [address] [place] [address] Elvira Reyes, RN [address] [place] [address] 10/26/2023 4:00 AM CDT Home Care Visit [facility] [address] [place] [address], [place] [address] Elvira Reyes, RN [address], [place] [address] 10/28/2023 4:00 AM CDT Home Care Visit [place] [address] [place] [phone] Elvira Reyes, RN [address], [place] [address] 10/28/2023 8:00 AM CDT Appointment [facility] [address] [facility] [place] [address] Dutch Fontaine MD 225 [facility] [address] [place] [address] 10/31/2023 Procedure Only [facility] [address] [facility] [address] [place] [phone] 10/31/2023 4:00 AM CDT Home Care Visit [facility] [address] [place] [phone] Elvira Reyes, RN 235 [place] [address] 11/02/2023 4:00 AM CDT Home Care Visit [place] [address] [place] [address], [place] [address] Elvira Reyes, RN [address] [place] [address] 11/04/2023 4:00 AM CDT Home Care Visit [address] [place] [address] Elvira Reyes, RN [address] [place] [address] 11/07/2023 4:00 AM CDT Home Care Visit [address] [place] [address] Elvira Reyes, RN [address], [place] [address] 11/09/2023 4:00 AM CDT Home Care Visit [address] [place] [address] Elvira Reyes, RN [address] [place] [address] 11/11/2023 4:00 AM CDT Home Care Visit [address] [place] [address] Elvira Reyes, RN [address] [place] [address] 11/14/2023 4:00 AM CDT Home Care Visit [facility] [address] [place] [address] Elvira Reyes, RN [address] [place] [address] 11/16/2023 4:00 AM CDT Home Care Visit [facility] [address] [place] [address], [place] [address] Elvira Reyes, RN [address] [place] [address] 11/18/2023 4:00 AM CDT Home Care Visit [facility] [address] [place] [address], [place] [address] Elvira Reyes, RN [address] [place] [address] 11/21/2023 4:00 AM CDT Home Care Visit [place] [address] [place] [address], [place] [address] Elvira Reyes, RN [address] [place] [address] 11/23/2023 4:00 AM CDT Home Care Visit [place] [address] [place] [address], [place] [address] Elvira Reyes, RN [address] [place] [address] 11/25/2023 4:00 AM CDT Home Care Visit [place] [address] [place] [address], [place] [address] Elvira Reyes, RN [address] [place] [address] 11/28/2023 4:00 AM CDT Appointment [facility] [address] [place] [phone] Elvira Reyes RN [address] [place] [address] Health Maintenance Due Date Last Done Comments Pneumococcal series for age 6-64 (1 of 2 - PCV) 1967 Tdap 02/08/1972 Depression screening for age 12+ 1973 HIV for age 15-65 02/08/1976 BMI (ht and wt on same day) for age 18+ 1979 Hepatitis C screening for age 18-79 1979 Tetanus booster 1981 Colonoscopy through age 75 2006 Zoster (shingles) series for age 50+ (1 of 2) 2011 COVID-19 vaccine series (2022- season) 2022 02/06/2021, 07/10/2020, 06/12/2020 Influenza for age 50-64 12/04/2023 Lipids for age 45-75 09/17/2028 09/18/2023 Procedures Procedure Name Priority Date/Time Associated Diagnosis Comments GLUCOSE METER Timed 09/28/2023 12:07 PM CDT EKG 12 LEAD Routine 09/28/2023 10:41 AM CDT GLUCOSE METER Timed 09/28/2023 8:07 AM CDT SCAN-CARDIAC STRIP 09/28/2023 8: 00 AM CDT WHITE BLOOD COUNT Early AM 09/28/2023 4:5 3 AM CDT PLATELET COUNT Early AM 09/28/2023 4:53 AM CDT BASIC METABOLIC PANEL Early AM 09/28/2023 4:53 AM CDT HEMOGLOBIN Early AM 09/28/2023 4:53 AM CDT GLUCOSE METER Timed 09/27/2023 9:09 PM CDT SCAN-CARDIAC STRIP 09/27/2023 7: 43 PM CDT GLUCOSE METER Timed 09/27/2023 5:12 PM CDT ECHO TTE LIMITED W CONTRAST W COLOR W DOPPLER Routine 09/27/2023 12:26 PM CDT POTASSIUM Timed 09/27/2023 12:12 PM CDT GLUCOSE METER Timed 09/27/2023 11:33 AM CDT EKG 12 LEAD Preop 09/27/2023 8:20 AM CDT GLUCOSE METER Timed 09/27/2023 8:04 AM CDT SCAN-CARDIAC STRIP 09/27/2023 8: 00 AM CDT XR CHEST 2 VIEWS PA AND LATERAL Routine 09/27/2023 7:35 AM CDT WHITE BLOOD COUNT Early AM 09/27/2023 5:3 8 AM CDT PLATELET COUNT Early AM 09/27/2023 5:38 AM CDT BASIC METABOLIC PANEL Early AM 09/27/2023 5:38 AM CDT HEMOGLOBIN Early AM 09/27/2023 5:38 AM CDT SCAN-CARDIAC STRIP 09/27/2023 12:19 AM CDT GLUCOSE METER Timed 09/27/2023 12:14 AM CDT SCAN-CARDIAC STRIP 09/26/2023 8: 17 PM CDT GLUCOSE METER Timed 09/26/2023 6:58 PM CDT CV PROCEDURE TO BE PERFORMED Routine 09/26/2023 5:41 PM CDT EP PPM Routine 09/26/2023 4:54 PM CDT GLUCOSE METER Timed 09/26/2023 12:26 PM CDT BASIC METABOLIC PANEL Preop 09/26/2023 8:57 AM CDT CBC W PLT NO DIFF Preop 09/26/2023 8:5 7 AM CDT EKG 12 LEAD Routine 09/26/2023 8:51 AM CDT SCAN-CARDIAC STRIP 09/26/2023 8: 36 AM CDT GLUCOSE METER Timed 09/26/2023 7:26 AM CDT WHITE BLOOD COUNT Early AM 09/26/2023 5:2 6 AM CDT PLATELET COUNT Early AM 09/26/2023 5:26 AM CDT BASIC METABOLIC PANEL Early AM 09/26/2023 5:26 AM CDT HEMOGLOBIN Early AM 09/26/2023 5:26 AM CDT PROTIME-INR Early AM 09/26/2023 5:26 AM CDT SCAN-PACER 09/26/2023 12:00 AM CDT GLUCOSE METER Timed 09/25/2023 8:43 PM CDT GLUCOSE METER Timed 09/25/2023 5:29 PM CDT GLUCOSE METER Timed 09/25/2023 12:44 PM CDT EKG 12 LEAD Routine 09/25/2023 11:57 AM CDT XR CHEST 2 VIEWS PA AND LATERAL Routine 09/25/2023 9:06 AM CDT GLUCOSE METER Timed 09/25/2023 8:03 AM CDT SCAN-CARDIAC STRIP 09/25/2023 8: 00 AM CDT MAGNESIUM Early AM 09/25/2023 5:07 AM CDT WHITE BLOOD COUNT Early AM 09/25/2023 5:0 7 AM CDT PLATELET COUNT Early AM 09/25/2023 5:07 AM CDT BASIC METABOLIC PANEL Early AM 09/25/2023 5:07 AM CDT HEMOGLOBIN Early AM 09/25/2023 5:07 AM CDT PROTIME-INR Early AM 09/25/2023 5:07 AM CDT SCAN-CARDIAC STRIP 09/24/2023 11:32 PM CDT GLUCOSE METER Timed 09/24/2023 8:40 PM CDT EKG 12 LEAD Early AM 09/24/2023 5:11 PM CDT GLUCOSE METER Timed 09/24/2023 4:40 PM CDT GLUCOSE METER Timed 09/24/2023 2:43 PM CDT GLUCOSE METER Timed 09/24/2023 1:19 PM CDT GLUCOSE METER Timed 09/24/2023 10:57 AM CDT GLUCOSE METER Timed 09/24/2023 8:49 AM CDT SCAN-CARDIAC STRIP 09/24/2023 8: 00 AM CDT GLUCOSE METER Timed 09/24/2023 6:43 AM CDT XR CHEST 1 VIEW PORTABLE Routine 024 6:17 AM CDT GLUCOSE METER Timed 09/24/2023 4:24 AM CDT PLATELET COUNT LUI 09/24/2023 4:20 AM CDT [facility] DRAW ONLY Early AM 09/24/2023 4:20 AM CDT PROTIME-INR Early AM 09/24/2023 4:20 AM CDT HEMOGLOBIN Early AM 09/24/2023 4:20 AM CDT BASIC METABOLIC PANEL Early AM 09/24/2023 4:20 AM CDT MAGNESIUM Early AM 09/24/2023 4:20 AM CDT GLUCOSE METER Timed 09/24/2023 2:02 AM CDT GLUCOSE METER Timed 09/24/2023 12:52 AM CDT ARTERIAL BLOOD GAS STAT 09/24/2023 12:16 AM CDT GLUCOSE METER Timed 09/24/2023 12:13 AM CDT SCAN-CARDIAC STRIP 09/24/2023 12:00 AM CDT GLUCOSE METER Timed 09/23/2023 11:22 PM CDT XR CHEST 1 VIEW PORTABLE STAT 024 10:05 PM CDT GLUCOSE METER Timed 09/23/2023 9:51 PM CDT FIBRINOGEN,QUANTITATIVE STAT 09/23/19 9:45 PM CDT THROMBIN TIME STAT 09/23/2023 9:45 PM CDT PROTIME-INR STAT 09/23/2023 9:45 PM CDT APTT STAT 09/23/2023 9:45 PM CDT PLATELET COUNT STAT 09/23/2023 9:45 PM CDT MAGNESIUM STAT 09/23/2023 9:45 PM CDT POTASSIUM STAT 09/23/2023 9:45 PM CDT HEMOGLOBIN STAT 09/23/2023 9:45 PM CDT CBC WITH AUTO DIFFERENTIAL STAT 09/23/2023 8:05 PM CDT CBC WITH AUTO DIFFERENTIAL STAT 09/23/2023 8:05 PM CDT CARDIAC THROMBOELASTOGRAPHY STAT 09/23/2023 8:05 PM CDT FIBRINOGEN,QUANTITATIVE STAT 09/23/19 8:05 PM CDT PROTIME-INR STAT 09/23/2023 8:05 PM CDT APTT STAT 09/23/2023 8:05 PM CDT THROMBIN TIME STAT 09/23/2023 8:05 PM CDT [facility] CATH INFUSION PR70 Routine 09/23/19 4:34 PM CDT [facility] KIT PR5 Routine 09/23/2023 4:34 PM CDT C AN INTRODUCER 2 LUMEN PERFORMABLE Routine 09/23/2023 4:34 PM CDT [facility] DRSG PR1 Routine 09/23/2023 4:34 PM CDT [facility] DRSG PR5 Routine 09/23/2023 4:34 PM CDT [facility] TUBING PR5 Routine 09/23/2023 4:34 PM CDT [facility] KIT MONITORING PR5 Routine 09/23/19 4:34 PM CDT [facility] ADPTR PR1 Routine 09/23/2023 4:34 PM CDT [facility] CATH INFUSION PR30 Routine 09/23/19 24 4:34 PM CDT [facility] TUBING PR1 Routine 09/23/2023 4:34 PM CDT [facility] TUBING PR5 Routine 09/23/2023 4:34 PM CDT [facility] TUBING PR1 Routine 09/23/2023 4:34 PM CDT [facility] ANES US GUIDE FOR VASC ACCESS Routine 09/23/2023 4:34 PM CDT [facility] STOPCOCK PR5 Routine 09/23/2023 4:3 4 PM CDT CVC TRIPLE LUMEN Routine 09/23/2023 4:34 PM CDT ARTERIAL LINE Routine 09/23/2023 4:34 PM CDT ARTERIAL LINE Routine 09/23/2023 4:34 PM CDT ARTERIAL LINE Routine 09/23/2023 4:34 PM CDT ARTERIAL LINE Routine 09/23/2023 4:34 PM CDT ARTERIAL LINE Routine 09/23/2023 4:34 PM CDT ARTERIAL LINE Routine 09/23/2023 4:34 PM CDT ZACHARY Routine 09/23/2023 2:54 PM CDT ENDOTRACHEAL TUBE Routine 09/23/2023 2:4 1 PM CDT ENDOTRACHEAL TUBE Routine 09/23/2023 2:4 1 PM CDT ENDOTRACHEAL TUBE Routine 09/23/2023 2:4 1 PM CDT ENDOTRACHEAL TUBE Routine 09/23/2023 2:4 1 PM CDT CARDIAC THROMBOELASTOGRAPHY STAT 09/23/2023 2:38 PM CDT ENDOSCOPIC HARVEST VEIN 09/23/19 1:33 PM CDT Case Notes AVERAGE T/FPERFUSION-Confirmed w/Shayna for 1315 #[id number] EK 6/20OR STAFF BYPASS CORONARY ARTERY 01 2023 1:33 PM CDT Case Notes AVERAGE T/FPERFUSION-Confirmed w/Shayna for 1315 #[id number] EK 6/20OR STAFF GLUCOSE METER Timed 09/23/2023 12:59 PM CDT SCAN-CARDIAC STRIP 09/23/2023 9: 50 AM CDT GLUCOSE METER Timed 09/23/2023 7:40 AM CDT MAGNESIUM Early AM 09/23/2023 5:28 AM CDT APTT Early AM 09/23/2023 5:28 AM CDT PROTIME-INR Early AM 09/23/2023 5:28 AM CDT CBC W PLT NO DIFF Early AM 09/23/2023 5:2 8 AM CDT BASIC METABOLIC PANEL Early AM 09/23/2023 5:28 AM CDT SCAN-CARDIAC STRIP 09/23/2023 4: 04 AM CDT SCAN-OPERATIVE/PROCEDURE REPORT 09/23/2023 12:00 AM CDT GLUCOSE METER Timed 09/22/2023 8:54 PM CDT GLUCOSE METER Timed 09/22/2023 5:12 PM CDT SCAN-CARDIAC STRIP 09/22/2023 3: 49 PM CDT CREATININE Timed 09/22/2023 3:12 PM CDT GLUCOSE METER Timed 09/22/2023 11:56 AM CDT RED BLOOD CELLS EA UNIT STAT 09/22/19 9:35 AM CDT RED BLOOD CELLS EA UNIT STAT 09/22/19 9:35 AM CDT RBC W TYPE AND SCREEN STAT 09/22/2023 9:34 AM CDT EXTRA TUBE LAVENDER Today 09/22/2023 9 :34 AM CDT SCAN-CARDIAC STRIP 09/22/2023 8: 13 AM CDT GLUCOSE METER Timed 09/22/2023 8:07 AM CDT MAGNESIUM LUI 09/22/2023 4:55 AM CDT APTT Timed 09/22/2023 4:55 AM CDT BASIC METABOLIC PANEL Early AM 09/22/2023 4:55 AM CDT HEMATOCRIT Early AM 09/22/2023 4:55 AM CDT HEMOGLOBIN Early AM 09/22/2023 4:55 AM CDT PLATELET COUNT Early AM 09/22/2023 4:55 AM CDT SCAN-CARDIAC STRIP 09/22/2023 1: 22 AM CDT APTT Timed 09/21/2023 9:40 PM CDT GLUCOSE METER Timed 09/21/2023 9:05 PM CDT SCAN-CARDIAC STRIP 09/21/2023 7: 52 PM CDT GLUCOSE METER Timed 09/21/2023 5:35 PM CDT SCAN-CARDIAC STRIP 09/21/2023 5: 24 PM CDT APTT Timed 09/21/2023 1:43 PM CDT GLUCOSE METER Timed 09/21/2023 1:38 PM CDT GLUCOSE METER Timed 09/21/2023 11:35 AM CDT SCAN-CARDIAC STRIP 09/21/2023 8: 57 AM CDT GLUCOSE METER Timed 09/21/2023 7:39 AM CDT BASIC METABOLIC PANEL Early AM 09/21/2023 5:07 AM CDT HEMATOCRIT Early AM 09/21/2023 5:07 AM CDT HEMOGLOBIN Early AM 09/21/2023 5:07 AM CDT PLATELET COUNT Early AM 09/21/2023 5:07 AM CDT APTT Timed 09/21/2023 5:07 AM CDT SCAN-CARDIAC STRIP 09/21/2023 1: 49 AM CDT APTT Timed 09/20/2023 9:07 PM CDT GLUCOSE METER Timed 09/20/2023 9:05 PM CDT GLUCOSE METER Timed 09/20/2023 4:45 PM CDT CTA CHEST - DUAL READ Routine 09/20/2023 3:31 PM CDT US ARTERIAL UPPER EXTREMITY LEFT Routine 09/20/2023 2:19 PM CDT US VEIN MAPPING LOWER EXTREMITY BILATERAL Routine 09/20/2023 2:18 PM CDT APTT LUI 09/20/2023 12:23 PM CDT GLUCOSE METER Timed 09/20/2023 11:36 AM CDT SCAN-CARDIAC STRIP 09/20/2023 8: 44 AM CDT GLUCOSE METER Timed 09/20/2023 8:31 AM CDT SCAN-CARDIAC STRIP 09/20/2023 4: 53 AM CDT EKG 12 LEAD STAT 09/20/2023 4:41 AM CDT BASIC METABOLIC PANEL LUI 09/20/2023 3:48 AM CDT APTT Timed 09/20/2023 3:48 AM CDT POTASSIUM Early AM 09/20/2023 3:48 AM CDT MAGNESIUM Early AM 09/20/2023 3:48 AM CDT HEMATOCRIT Early AM 09/20/2023 3:48 AM CDT HEMOGLOBIN Early AM 09/20/2023 3:48 AM CDT PLATELET COUNT Early AM 09/20/2023 3:48 AM CDT SCAN-CARDIAC STRIP 09/20/2023 2: 11 AM CDT SCAN-CARDIAC STRIP 09/20/2023 2: 09 AM CDT SCAN-CARDIAC STRIP 09/20/2023 1: 53 AM CDT SCAN-CARDIAC STRIP 09/20/2023 1: 52 AM CDT SCAN-CARDIAC STRIP 09/20/2023 1: 47 AM CDT GLUCOSE METER Timed 09/19/2023 9:29 PM CDT SCAN-CARDIAC STRIP 09/19/2023 8: 49 PM CDT GLUCOSE METER Timed 09/19/2023 6:21 PM CDT SCAN-CARDIAC STRIP 09/19/2023 5: 47 PM CDT CVL CORONARY ANGIOGRAM POSS PCI Routine 09/19/2023 5:17 PM CDT GLUCOSE METER Timed 09/19/2023 12:07 PM CDT ECHO TTE COMPLETE W CONTRAST Routine 09/19/2023 10:48 AM CDT MAGNESIUM Timed 09/19/2023 8:55 AM CDT POTASSIUM Timed 09/19/2023 8:55 AM CDT SCAN-CARDIAC STRIP 09/19/2023 8: 00 AM CDT GLUCOSE METER Timed 09/19/2023 7:46 AM CDT APTT Timed 09/19/2023 5:07 AM CDT HEMATOCRIT Early AM 09/19/2023 5:07 AM CDT HEMOGLOBIN Early AM 09/19/2023 5:07 AM CDT PLATELET COUNT Early AM 09/19/2023 5:07 AM CDT SCAN-CARDIAC STRIP 09/19/2023 4: 02 AM CDT GLUCOSE METER Timed 09/19/2023 2:58 AM CDT APTT Timed 09/18/2023 10:38 PM CDT GLUCOSE METER Timed 09/18/2023 8:53 PM CDT SCAN-CARDIAC STRIP 09/18/2023 7: 42 PM CDT GLUCOSE METER Timed 09/18/2023 5:49 PM CDT APTT Timed 09/18/2023 12:31 PM CDT GLUCOSE METER Timed 09/18/2023 11:43 AM CDT SCAN-CARDIAC STRIP 09/18/2023 7: 55 AM CDT GLUCOSE METER Timed 09/18/2023 7:27 AM CDT HEMOGLOBIN A1C SCREENING Early AM 024 4:17 AM CDT LIPID PANEL Early AM 09/18/2023 4:17 AM CDT CBC W PLT NO DIFF LUI 09/18/2023 4:1 7 AM CDT MAGNESIUM Early AM 09/18/2023 4:17 AM CDT BASIC METABOLIC PANEL LUI 09/18/2023 4:17 AM CDT APTT LUI 09/18/2023 4:17 AM CDT PROTIME-INR LUI 09/18/2023 4:17 AM CDT SCAN-CARDIAC STRIP 09/18/2023 3: 10 AM CDT SCAN-CARDIAC STRIP 09/18/2023 12:00 AM CDT TROPONIN T (HS) ONE TIME Timed 9:52 PM CDT XR CHEST 1 VIEW PORTABLE STAT 8:12 PM CDT APTT LUI 09/17/2023 7:55 PM CDT CBC WITH AUTO DIFFERENTIAL STAT 09/17/2023 7:55 PM CDT COMP METABOLIC PANEL STAT 09/17/2023 7:55 PM CDT TROPONIN T (HS) ACUTE W/2HR REFLEX STAT 09/17/2023 7:55 PM CDT CBC WITH AUTO DIFFERENTIAL STAT 09/17/2023 7:55 PM CDT EKG 12 LEAD STAT 09/17/2023 7:36 PM CDT REFERRAL SUSCEPTIBILITY Routine 09/02/19 24 8:26 AM CDT from Last 3 Months Results * (ABNORMAL) GLUCOSE METER (09/28/2023 12:07 PM CDT) Only the most recent of51 resultswithin the time period is included. Pathologist [facility] GLUCOSE METER 204(H) 65 - 100 mg/dL 09/28/2023 12:10 PM CDT [facility] Blood BLOOD SPECIMEN / Unknown 09/28/2023 12:07 PM CDT 09/28/2023 12:10 PM CDT Mnuir Bee MD CHEMISTRY [facility] SENDOUT INTERNAL ZIP [phone] [place] [phone] * EKG 12 LEAD (09/28/2023 10:41 AM CDT) Only the most recent of7 resultswithin the time period is included. Interpretation Sinus rhythm with 1st degree A-V block Nonspecific ST and T wave abnormality Abnormal ECG When compared with ECG of 27-Sep-2023 08:20, No significant change was found BEYOND NOW Ventricular Rate 93 BPM BEYOND NOW Atrial Rate 93 BPM BEYOND NOW P-R Interval 212 ms BEYOND NOW QRS Duration 100 ms BEYOND NOW QT 332 ms BEYOND NOW QTc 412 ms BEYOND NOW P [place] 45 degrees BEYOND NOW R [place] 50 degrees BEYOND NOW T [place] 53 degrees BEYOND NOW 09/28/2023 10:4 1 AM CDT 09/29/2023 8:23 AM CDT Sandhya FAJARDO EKG ORD Performing Organization Address City/[facility]/ZIP Co de Phone Number BEYOND NOW [place], [place] * SCAN-CARDIAC STRIP (09/28/2023 8:00 AM CDT) Scanner OTHER * PLATELET COUNT (09/28/2023 4:53 AM CDT) Only the most recent of10 resultswithin the time period is included. Pathologist [facility] PLATELET COUNT 239 140 - 440 thou/cu mm 09/28/2023 5:32 AM CDT [facility] MPV 9.2 6.5 - 11.0 fL 09/28/2023 5:32 AM CDT [facility] Blood BLOOD SPECIMEN / Unknown Venipuncture / Unknown 09/28/2023 4:53 AM CDT 09/28/2023 5:21 AM CDT Sandhya FAJARDO HEMATOLOGY [facility] SENDOUT INTERNAL ZIP [phone] [place] [id number] * WHITE BLOOD COUNT (09/28/2023 4:53 AM CDT) Only the most recent of4 resultswithin the time period is included. WHITE BLOOD COUNT 7.3 4.5 - 11.0 thou/cu mm 09/28/2023 5:32 AM CDT [facility] NRBC 0.0 % 09/28/2023 5:32 AM CDT [facility] ABS NRBC 0.0 thou /cu mm 09/28/2023 5:32 AM CDT [facility] Blood BLOOD SPECIMEN / Unknown Venipuncture / Unknown 09/28/2023 4:53 AM CDT 09/28/2023 5:21 AM CDT Sandhya FAJARDO HEMATOLOGY Performing Organization Address City/[facility]/ZIP Co de Phone Number [facility] SENDOUT INTERNAL ZIP [phone] [place] [address] * (ABNORMAL) HEMOGLOBIN (09/28/2023 4:53 AM CDT) Only the most recent of10 resultswithin the time period is included. HEMOGLOBIN 11.6(L) 13.5 - 17.5 g/dL 09/28/2023 5:32 AM CDT [facility] MCV 91 80 - 100 fL 09/28/2023 5:32 AM CDT [facility] Blood BLOOD SPECIMEN / Unknown Venipuncture / Unknown 09/28/2023 4:53 AM CDT 09/28/2023 5:21 AM CDT Sandhya FAJARDO HEMATOLOGY [facility] SENDOUT INTERNAL ZIP [phone] [place] [address] * (ABNORMAL) BASIC METABOLIC PANEL (09/28/2023 4:53 AM CDT) Only the most recent of11 resultswithin the time period is included. SODIUM 136 136 - 145 mmol/L 09/28/2023 6:02 AM [facility] POTASSIUM 4.2 3.5 - 5.1 mmol/L 09/28/2023 6:02 AM [facility] CHLORIDE 97(L) 98 - 107 mmol/L 09/28/2023 6:02 AM [facility] CO2,TOTAL 30(H) 22 - 29 mmol/L 09/28/2023 6:02 AM [facility] ANION GAP 9 5 - 18 09/28/2023 6:02 AM [facility] GLUCOSE 139(H) 70 - 99 mg/dL 09/28/2023 6:02 AM [facility] CALCIUM 8.8 8.8 - 10.2 mg/dL 09/28/2023 6:02 AM [facility] BUN 19 8 - 23 mg/dL 09/28/2023 6:02 AM [facility] CREATININE 0.96 0.70 - 1.20 mg/dL 09/28/2023 6:02 AM [facility] BUN/CREAT RATIO 20 10 - 20 6:02 AM [facility] eGFR 89(L) >90 mL/min/1.7 3m2 09/28/2023 6:02 AM [facility] Comment:As of 2021, eG FR is calculated by the CKD-EPI creatinine equation without race adjustment. ??eGFR can be influenced by muscle mass, exercise, and diet. ??The reported eGFR is an estimation only and is only applicable if the renal function is stable. Blood BLOOD SPECIMEN / Unknown Venipuncture / Unknown 09/28/2023 4:53 AM CDT 09/28/2023 5:21 AM CDT Sandhya FAJARDO CHEMISTRY [facility] SENDOUT INTERNAL ZIP [phone] [place] [address] * SCAN-CARDIAC STRIP (09/27/2023 7:43 PM CDT) Scanner OTHER * ECHO TTE LIMITED W CONTRAST W COLOR W DOPPLER (09/27/2023 12:26 PM CDT) EJECTION FRACTION 55% PROSOLV Anatomical Region Laterality Modality Ultrasound 09/27/2023 11:3 8 AM CDT Narrative 09/27/2023 12:43 [place] [address] Main: [email or web address] ? 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 BP: 132 / 62 Weight: 309 lbs BMI: 47 kg/m?? HR: 85 Location: Inpatient (Portable) Rhythm: Artificially Paced Procedure Components: Limited 2D imaging with contrast, Limited Spectral Doppler, Color Doppler Indications: Cardiac pacemaker Technical Quality: Fair Contrast: Definity Constrast Dose (ml): 0.3 Final Conclusion Previous Study: 09/19/23 LIMITED ECHOCARDIOGRAM FOR ASSESSMENT OF PERICARDIAL EFFUSION. 1. Technically challenging echocardiogram. 2. Tiny pericardial effusion. Prominent epicardial fat pad. No echocardiographic evidence of cardiac tamponade. Abnormal (leftward) ventricular septal shift with inspiration. 3. Normal left ventricular chamber size. Normal left ventricular wall thickness. Abnormal ventricular septal motion due to post- operative status. Estimated left ventricular ejection fraction is 55%. 4. When compared to the previous echocardiographic images of 09/19/23, there has been no significant change. Estimated EF: 55% FINDINGS Left Ventricle Normal left ventricular chamber size. Normal left ventricular wall thickness. Abnormal ventricular septal motion due to post-operative status. Estimated left ventricular ejection fraction is 55%. Diastolic Function Left ventricular diastolic function was not assessed. Right Ventricle Right ventricle was not assessed. Left Atrium Left atrium was not assessed. Right Atrium Right atrium was not assessed. Atrial Septum Atrial septum was not assessed. Aortic Valve Aortic valve was not assessed. Mitral Valve Mitral valve was not assessed. Tricuspid Valve Tricuspid valve was not assessed. Pulmonic Valve Pulmonary valve was not assessed. Pericardium Tiny pericardial effusion. Prominent epicardial fat pad. No echocardiographic evidence of cardiac tamponade. Abnormal (leftward) ventricular septal shift with inspiration. Aorta Aortic sinus of Valsalva was not assessed. Ascending aorta was not assessed. Inferior Vena Cava Normal inferior vena cava with normal inspiratory collapse. MEASUREMENTS ??(Male / Female) Normal Values 2D MEASUREMENTS AND LV FUNCTION LVOT Diameter ? 2.5 cm LVOT Cardiac Output ? 7.01 l/min LVOT Cardiac Index ?2.63 l/min??m?? LVOT Stroke Volume ?82.5 ml Stroke Volume Index ? 30.9 ml/m?? IVC Diameter Expiration ? 1.6 cm DIASTOLOGY LV E' Lateral Velocity ?0.0946 m/sec LV E' Septal Velocity ? 0.0566 m/sec AORTIC VALVE AV Peak Velocity ?1.62 m/sec ?< 2.0 m/sec AV Peak Gradient ?10.5 mmHg AV Mean Gradient ?6 mmHg AV Velocity Time Integral ? 28 cm LVOT Peak Velocity ?1.11 m/sec LVOT Velocity Time Integral ? 16.8 cm AV Area Cont Eq vti ? 2.95 cm?? AV Area Cont Eq pk ?3.36 cm?? AV Dimensionless Index ?0.6 TRICUSPID VALVE AND ESTIMATED PRESSURES Right Atrial Pressure ? 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 BP: 132 / 62 Weight: 309 lbs BMI: 47 kg/m?? HR: 85 Location: Inpatient (Portable) Rhythm: Artificially Paced Procedure Components: Limited 2D imaging with contrast, Limited SpectralDoppler, Color Doppler Indications: Cardiac pacemaker Technical Quality: Fair Contrast: Definity Constrast Dose (ml): 0.3 Final Conclusion Previous Study: 09/19/23 LIMITED ECHOCARDIOGRAM FOR ASSESSMENT OF PERICARDIAL EFFUSION. 1. Technically challenging echocardiogram. 2. Tiny pericardial effusion. Prominent epicardial fat pad. Noechocardiographic evidence of cardiac tamponade. Abnormal (leftward) ventricular septal shift with inspiration. 3. Normal left ventricular chamber size. Normal left ventricular wallthickness. Abnormal ventricular septal motion due to post- operative status. Estimated left ventricular ejection fraction is 55%. 4. When compared to the previous echocardiographic images of 09/19/23,there has been no significant change. Estimated EF: 55% FINDINGS Left Ventricle Normal left ventricular chamber size. Normal leftventricular wall thickness. Abnormal ventricular septal motion due to post-operative status. Estimated left ventricular ejectionfraction is 55%. Diastolic Function Left ventricular diastolic function was notassessed. Right Ventricle Right ventricle was not assessed. Left Atrium Left atrium was not assessed. Right Atrium Right atrium was not assessed. Atrial Septum Atrial septum was not assessed. Aortic Valve Aortic valve was not assessed. Mitral Valve Mitral valve was not assessed. Tricuspid Valve Tricuspid valve was not assessed. Pulmonic Valve Pulmonary valve was not assessed. Pericardium Tiny pericardial effusion. Prominent epicardial fat pad. Noechocardiographic evidence of cardiac tamponade. Abnormal (leftward) ventricular septal shift with inspiration. Aorta Aortic sinus of Valsalva was not assessed. Ascending aorta was notassessed. Inferior Vena Cava Normal inferior vena cava with normal inspiratorycollapse. MEASUREMENTS (Male / Female) Normal Values 2D MEASUREMENTS AND LV FUNCTION LVOT Diameter 2.5 cm LVOT Cardiac Output 7.01 l/min LVOT Cardiac Index 2.63 l/min??m?? LVOT Stroke Volume 82.5 ml Stroke Volume Index 30.9 ml/m?? IVC Diameter Expiration 1.6 cm DIASTOLOGY LV E' Lateral Velocity 0.0946 m/sec LV E' Septal Velocity 0.0566 m/sec AORTIC VALVE AV Peak Velocity 1.62 m/sec < 2.0 m/sec AV Peak Gradient 10.5 mmHg AV Mean Gradient 6 mmHg AV Velocity Time Integral 28 cm LVOT Peak Velocity 1.11 m/sec LVOT Velocity Time Integral 16.8 cm AV Area Cont Eq vti 2.95 cm?? AV Area Cont Eq pk 3.36 cm?? AV Dimensionless Index 0.6 TRICUSPID VALVE AND ESTIMATED PRESSURES Right Atrial Pressure 3 mmHg HCM DATA LVOT KATIA (r) 4.93 mmHg Rusty Major MD (Electronically Signed) [facility] Accredited Site Final Date: 27 September 2023 12:41 ICD-10 Codes: Remi Chong CARD DEALER ECHO ORD * POTASSIUM (09/27/2023 12:12 PM CDT) Only the most recent of4 resultswithin the time period is included. POTASSIUM 4.6 3.5 - 5.1 mmol/L 09/27/2023 12:45 PM CDT [facility] Blood BLOOD SPECIMEN / Unknown Butterfly / Unknown 09/27/2023 12:12 PM CDT 09/27/2023 12:28 PM CDT Gregorio Elizabeth MD CHEMISTRY [facility] SENDOUT INTERNAL ZIP [phone] [place] [address] * SCAN-CARDIAC STRIP (09/27/2023 8:00 AM CDT) Scanner OTHER * XR Chest PA and Lateral (09/27/2023 7:35 AM CDT) Only the most recent of2 resultswithin the time period is included. Anatomical Region Laterality Modality CHEST, THORAX, Lung, HEART Compu magui Radiography 09/27/2023 7:35 AM CDT Impressions 09/27/2023 7:39 AM CDT Cardiac silhouette and mediastinal contours are persistently enlarged. Small left pleural effusion. Streaky perihilar and left basilar opacities, possibly atelectasis, scarring, or edema. No pneumothorax. Narrative 09/27/2023 7:39 AM CDT For Patients: As a result of the Cures Act, medical imaging exams and procedure reports are released immediately into your electronic medical record. You may view this report before your referring provider. If you have questions, please contact your health care provider. EXAM: XR CHEST 2 VIEWS PA AND LATERAL LOCATION: [facility] MEDICAL [facility]AGING DATE: 09/27/2023 INDICATION: Post Pacemaker / Post ICD Implant COMPARISON: 09/25/2023 Procedure Note Dani Ryan MD - 09/27/2023 For Patients: As a result of the Century Cures Act, medical imagingexams and procedure reports are released immediately into your electronicmedical record. You may view this report before your referring provider.If you have questions, please contact your health care provider. EXAM: XR CHEST 2 VIEWS PA AND LATERAL LOCATION: [facility] MEDICAL [facility] DATE: 09/27/2023 INDICATION: Post Pacemaker / Post ICD Implant COMPARISON: 09/25/2023 IMPRESSION: Cardiac silhouette and mediastinal contours are persistently enlarged.Small left pleural effusion. Streaky perihilar and left basilar opacities,possibly atelectasis, scarring, or edema. No pneumothorax. Juanito Romeo MD GENERAL IMAGING * SCAN-CARDIAC STRIP (09/27/2023 12:19 AM CDT) Scanner OTHER * SCAN-CARDIAC STRIP (09/26/2023 8:17 PM CDT) Scanner OTHER * EP Procedure to be Performed (09/26/2023 5:41 PM CDT) Narrative Juanito Romeo MD - 09/26/2023 5:41 PM CDT Juanito Romeo MD ? 09/26/2023 ??5:44 PM [facility] Electrophysiology Laboratory Leadless Pacemaker (AV Micra) Procedure Note Procedures: Placement of leadless pacemaker (Micra) 2. ?? Ultrasound guided vascular access Patient Information and Indications: Mr. Jose Guadalupe Ridley is a 63-year-old male with a history of CAD s/p CABG, NSTEMI, paroxysmal CHB who was referred for placement of a leadless pacemaker (AV Micra). The procedure, indications, risks, benefits, and alternatives were discussed with the patient, who desired to proceed after questions were answered and informed consent was documented. Methods: The patient was brought to the Electrophysiology Laboratory in a fasting state and was prepped and draped in sterile fashion. Prophylactic antibiotic was administered on the hospital floor. Moderate sedation was administered by the EP lab nursing staff. Local anesthetic was delivered to the right femoral vein region. Access was achieved in the right femoral vein using modified Seldinger technique using ultrasound guidance with placement of an 8Fr sheath. ?? The right femoral vein was dilated by serial insertion and removal of a 12 Fr then a 16 Fr dilator. A Micra introducer 23Fr sheath was wetted to activate the hydrophilic coating and was advanced to the right atrium over a super stiff Amplatz J wire placed in the SVC-subclavian vein. The dilator was removed and the sheath flushed and attached to a continuous heparin drip. A 5000 unit heparin bolus was then given. ?? A Micra delivery sheath and pacemaker were prepped and advanced into the 23Fr sheath. The delivery system cone was positioned at the septal RV location confirmed fluoroscopically in multiple views and by contrast ventriculography via the tip of the sheath. The Micra pacemaker was deployed with stable hitesh position. Tug testing in 2 views showed 3 tines clearly engaged and good pulsatile sensation with tension on tether chord. Interrogation of the Micra pacemaker ensured adequate sensing and pacing characteristics. The delivery sheath was then pulled back. After flossing to ensure no resistance, one segment of the tether chord was cut and the chord was removed from the Micra delivery system. The 23 Fr access sheath was then removed and a 0 silk suture was placed in purse-string fashion around the site of venous entry. ??Hemostasis was achieved with manual pressure with no residual bleeding or hematoma. Final device position was confirmed by stored fluoroscopic image from device in [place] and [place]LLY projection. The patient tolerated the procedure well and left the lab in good condition. Anesthesia: moderate sedation Complications: None EBL: 75 cc Specimens: none Medications: Documented in the detailed nursing procedure log Summary of Results: Leadless pacemaker implantation (Micra AV) on the RV septum via right femoral vein access. Attendance Statement: I was present throughout and performed or directed all aspects of the procedure. Attending Signature: Juanito Romeo M.D. Cardiac Property And Equipment Clerk [facility] Manan Steele NP FLOOR TRADER ORD * EP PPM (09/26/2023 4:54 PM CDT) Anatomical Region Laterality Modality Other 09/26/2023 4:54 PM CDT Manan Steele CARD DEALER CV IMAGING * (ABNORMAL) CBC with Platelets no Differential (09/26/2023 8:57 AM CDT) Only the most recent of3 resultswithin the time period is included. WHITE BLOOD COUNT 9.6 4.5 - 11.0 thou/cu mm 09/26/2023 9:12 AM CDT [facility] RED BLOOD COUNT 4.29(L) 4.30 - 5.90 mil/cu mm 09/26/2023 9:12 AM CDT [facility] HEMOGLOBIN 12.9(L) 13.5 - 17.5 g/dL 09/26/2023 9:12 AM CDT [facility] HEMATOCRIT 37.7 37.0 - 53.0 % 09/26/2023 9:12 AM T [facility] MCV 88 80 - 100 fL 09/26/2023 9:12 AM CDT [facility] MCH 30.1 26.0 - 34.0 pg 09/26/2023 9:12 AM CDT [facility] MCHC 34.2 32.0 - 36.0 g/dL 09/26/2023 9:12 AM CDT [facility] RDW 13.7 11.5 - 15.5 % 09/26/2023 9:12 AM CDT [facility] PLATELET COUNT 201 140 - 440 thou/cu mm 09/26/2023 9:12 AM CDT [facility] MPV 9.2 6.5 - 11.0 fL 09/26/2023 9:12 AM CDT [facility] NRBC 0.0 % 09/26/2023 9:12 AM CDT [facility] ABS NRBC 0.0 thou /cu mm 09/26/2023 9:12 AM T [facility] Blood BLOOD SPECIMEN / Unknown Venipuncture / Unknown 09/26/2023 8:57 AM CDT 09/26/2023 9:03 AM CDT Manan Steele NP HEMATOLOGY [facility] SENDOUT INTERNAL ZIP [phone] [place] [address] * SCAN-CARDIAC STRIP (09/26/2023 8:36 AM CDT) Scanner OTHER * (ABNORMAL) Protime-INR (09/26/2023 5:26 AM CDT) Only the most recent of7 resultswithin the time period is included. INR 1.2 <1.3 09/26/2023 5:38 AM CDT [facility] PROTIME 13.3(H) 10.3 - 12.3 sec 09/26/2023 5:38 AM CDT [facility] Blood BLOOD SPECIMEN / Unknown Venipuncture / Unknown 09/26/2023 5:26 AM CDT 09/26/2023 5:30 AM CDT Narrative [facility] - 09/26/2023 5:38 AM CDT ?Therapeutic Range 2.0-3.0 for most anticoagulated patients 2.5-3.5 or 4.0 for high risk patients The INR is only used for patients on stable oral anticoagulant therapy. It makes no significant contribution to the diagnosis or treatment of patients whose Protime is prolonged for other reasons. INR results are increased when heparin levels exceed 1.0 U/mL, which corresponds to an aPTT >125 seconds if the patient is on UFH. Gregorio Elizabeth MD HEMATOLOGY [facility] SENDOUT INTERNAL [facility] [phone] [place] [address] * SCAN-PACER (09/26/2023 12:00 AM CDT) Narrative 09/26/2023 12:00 AM CDT Ordered by an unspecified provider. Other Clinical Staff OTHER * SCAN-CARDIAC STRIP (09/25/2023 8:00 AM CDT) Scanner OTHER * MAGNESIUM (09/25/2023 5:07 AM CDT) Only the most recent of8 resultswithin the time period is included. MAGNESIUM 2.1 1.6 - 2.4 mg/dL 09/25/2023 5:34 AM CDT [facility] Blood BLOOD SPECIMEN / Unknown Non-Lab Venipuncture / Unknown 09/25/2023 5:07 AM CDT 09/25/2023 5:15 AM CDT Gregorio Elizabeth MD CHEMISTRY [facility] SENDOUT INTERNAL ZIP [phone] [place] [address] * SCAN-CARDIAC STRIP (09/24/2023 11:32 PM CDT) Scanner OTHER * SCAN-CARDIAC STRIP (09/24/2023 8:00 AM CDT) Scanner OTHER * XR Chest Portable 1 View- In AM (09/24/2023 6:17 AM CDT) Only the most recent of3 resultswithin the time period is included. Anatomical Region Laterality Modality HEART, THORAX, CHEST Computed Ra diography 09/24/2023 6:17 AM CDT Impressions 09/24/2023 7:04 AM CDT Lung volumes are low. Probable subsegmental atelectasis in the right upper lobe. There is additional new probable atelectasis in the left base. Bilateral chest tubes. No large effusions or pneumothorax. Unchanged cardiac size. Median sternotomy. Right internal jugular central line tip projects at the cavoatrial junction. Gaseous distention of the stomach. Narrative 09/24/2023 7:04 AM CDT For Patients: As a result of the Cures Act, medical imaging exams and procedure reports are released immediately into your electronic medical record. You may view this report before your referring provider. If you have questions, please contact your health care provider. EXAM: XR CHEST 1 VIEW PORTABLE LOCATION: [facility] MEDICAL IMAG[facility] DATE: 09/24/2023 INDICATION: ET tube placement COMPARISON: 09/23/2023 Procedure Note So, Guanakito Pelaez MD - 09/24/2023 For Patients: As a result of the 21st Century Cures Act, medical imagingexams and procedure reports are released immediately into your electronicmedical record. You may view this report before your referring provider.If you have questions, please contact your health care provider. EXAM: XR CHEST 1 VIEW PORTABLE LOCATION: [facility] DATE: 09/24/2023 INDICATION: ET tube placement COMPARISON: 09/23/2023 IMPRESSION: Lung volumes are low. Probable subsegmental atelectasis in the right upperlobe. There is additional new probable atelectasis in the left base.Bilateral chest tubes. No large effusions or pneumothorax. Unchangedcardiac size. Median sternotomy. Right internal jugular central line tipprojects at the cavoatrial junction. Gaseous distention of the stomach. Gregorio Elizabeth MD GENERAL IM AGING * (ABNORMAL) Calcium Ionized (09/24/2023 4:20 AM CDT) CALCIUM,IONIZE D 1.10(L) 1.15 - 1.27 mmol/L 09/24/2023 4:35 AM CDT [facility] Blood BLOOD SPECIMEN / Unknown Non-Lab Venipuncture / Unknown 09/24/2023 4:20 AM CDT 09/24/2023 4:32 AM CDT Gregorio Elizabeth MD CHEMISTRY [facility] SENDOUT INTERNAL ZIP [phone] [place] [address] * (ABNORMAL) Arterial Blood Gas (09/24/2023 12:16 AM CDT) PH, ARTERIAL 7.33(L) 7.35 - 7.45 09/24/2023 12:25 AM CDT [facility] PCO2, ARTERIAL 52(H) 35 - 48 mmHg 09/24/2023 12:25 AM CDT [facility] PO2, ARTERIAL 164(H) 83 - 108 mmHg 09/24/2023 12:25 AM CDT [facility] HCO3, ARTERIAL 27 21 - 28 mmol/L 09/24/2023 12:25 AM CDT [facility] BASE EXCESS, ARTERIAL 0.6 -2.0 - 3.0 09/24/2023 12:25 AM CDT [facility] O2 SATURATION, ARTERIAL 100(H) 94 - 98 % 09/24/2023 12:25 AM CDT [facility] INSPIRED O2 95 09/24/2023 12:25 AM CDT [facility] Comment:Unit of Measure: Lit ers (L) if <=20; Percent (%) if >20 PATIENT TEMPERATURE 36.9 Degrees C 09/24/2023 12:25 AM CDT [facility] Blood ARTERIAL BLOOD SPECIMEN / Unknown Arterial / Unknown 09/24/2023 12:16 AM CDT 09/24/2023 12:21 AM CDT Gregorio Elizabeth MD CHEMISTRY [facility] SENDOUT INTERNAL ZIP [phone] [place] [address] * SCAN-CARDIAC STRIP (09/24/2023 12:00 AM CDT) Scanner OTHER * Thrombin Time - Immediate Postop (09/23/2023 9:45 PM CDT) Only the most recent of2 resultswithin the time period is included. THROMBIN TIME 15 <16 sec 09/23/2023 10:37 PM CDT [facility] Blood BLOOD SPECIMEN / Unknown Non-Lab Venipuncture / Unknown 09/23/2023 9:45 PM CDT 09/23/2023 9:55 PM CDT Gregorio Elizabeth MD HEMATOLOGY [facility] SENDOUT INTERNAL ZIP [id number] [place] [address] * (ABNORMAL) APTT - Immediate Postop (09/23/2023 9:45 PM CDT) Only the most recent of15 resultswithin the time period is included. APTT 23(L) 28 - 36 sec 09/23/2023 10:37 PM CDT [facility] Blood BLOOD SPECIMEN / Unknown Non-Lab Venipuncture / Unknown 09/23/2023 9:45 PM CDT 09/23/2023 9:55 PM CDT Narrative [facility] - 09/23/2023 10:37 PM CDT Therapeutic Range: 57-87 seconds Gregorio Elizabeth MD HEMATOLOGY [facility] SENDOUT INTERNAL ZIP [id number] [address] [place] [address] * (ABNORMAL) Fibrinogen, Quantitative - Immediate Postop (09/23/2023 9:45 PM CDT) Only the most recent of2 resultswithin the time period is included. Pathologist [facility] FIBRINOGEN,MOHIT NTITATIVE 453(H) 193 - 401 mg/dL 09/23/2023 10:37 PM CDT [facility] Blood BLOOD SPECIMEN / Unknown Non-Lab Venipuncture / Unknown 09/23/2023 9:45 PM CDT 09/23/2023 9:55 PM CDT Gregorio Elizabeth MD HEMATOLOGY [facility] SENDOUT INTERNAL ZIP [phone] [place] [address] * (ABNORMAL) CBC WITH AUTO DIFFERENTIAL (09/23/2023 8:05 PM CDT) Only the most recent of2 resultswithin the time period is included. WHITE BLOOD COUNT 7.2 4.5 - 11.0 thou/cu mm 09/23/2023 8:18 PM CDT [facility] RED BLOOD COUNT 3.61(L) 4.30 - 5.90 mil/cu mm 09/23/2023 8:18 PM CDT [facility] HEMOGLOBIN 11.0(L) 13.5 - 17.5 g/dL 09/23/2023 8:18 PM CDT [facility] HEMATOCRIT 31.7(L) 37.0 - 53.0 % 09/23/2023 8:18 PM CDT [facility] MCV 88 80 - 100 fL 09/23/2023 8:18 PM CDT [facility] MCH 30.5 26.0 - 34.0 pg 09/23/2023 8:18 PM CDT [facility] MCHC 34.7 32.0 - 36.0 g/dL 09/23/2023 8:18 PM [facility] RDW 13.2 11.5 - 15.5 % 09/23/2023 8:18 PM [facility] PLATELET COUNT 123(L) 140 - 440 thou/cu mm 09/23/2023 8:18 PM T [facility] MPV 10.0 6.5 - 11.0 fL 09/23/2023 8:18 PM T [facility] NRBC 0.0 % 09/23/2023 8:18 PM [facility] ABS NRBC 0.0 thou /cu mm 09/23/2023 8:18 PM [facility] % NEUT 90.3 % 09/23/2023 8:18 PM [facility] % LYMPH 6.2 % 09/23/2023 8:18 PM [facility] % MONO 1.5 % 09/23/2023 8:18 PM [facility] % EOS 0.8 % 09/23/2023 8:18 PM [facility] % BASO 0.6 % 09/23/2023 8:18 PM [facility] % IMMATURE GRAN (METAS,MYELOS,GA OS) 0.6 % 09/23/2023 8:18 PM [facility] ABSOLUTE NEUTROPHILS 6.5 1.7 - 7.0 thou/cu mm 09/23/2023 8:18 PM [facility] ABSOLUTE LYMPHOCYTES 0.5(L) 0.9 - 2.9 thou/cu mm 09/23/2023 8:18 PM [facility] ABSOLUTE MONOCYTES 0.1 <0.9 thou/cu mm 09/23/2023 8:18 PM [facility] ABSOLUTE EOSINOPHILS 0.1 <0.5 thou/cu mm 09/23/2023 8:18 PM [facility] ABSOLUTE BASOPHILS 0.0 <0.3 thou/cu mm 09/23/2023 8:18 PM [facility] ABSOLUTE IMMATURE GRANULOCYTES(MET ,MYELOS,PROS) 0.0 <0.3 thou/cu mm 09/23/2023 8:18 PM CDT [facility] Blood BLOOD SPECIMEN / Unknown Non-Lab Venipuncture / Unknown 09/23/2023 8:05 PM CDT 09/23/2023 8:13 PM CDT Lilyoralia Willettykluroddy HOUSE [facility] SENDOUT INTERNAL ZIP [phone] [place] [address] * (ABNORMAL) Cardiac Thromboelastography (09/23/2023 8:05 PM CDT) Only the most recent of2 resultswithin the time period is included. DESTINI REASON Diffuse Cardiac Bleeding 09/23/2023 10:17 PM CDT [facility] INTEM CT 212(H) 122 - 208 s 09/23/2023 10:17 PM CDT [facility] INTEM CFT 71 45 - 110 s 09/23/2023 10:17 PM CDT [facility] INTEM ALPHA 75 70 - 81 ?? 09/23/2023 10:17 PM CDT [facility] INTEM A10 57 46 - 67 mm 09/23/2023 10:17 PM CDT [facility] INTEM A20 63 51 - 72 mm 09/23/2023 10:17 PM CDT [facility] INTEM MCF 64 51 - 72 mm 09/23/2023 10:17 PM CDT [facility] INTEM ML 7 % 09/23/2023 10:17 PM CDT [facility] INTEM LI30 99 % 09/23/2023 10:17 PM CDT [facility] EXTEM CT 108(H) 43 - 82 s 09/23/2023 10:17 PM CDT [facility] EXTEM CFT 81 48 - 127 s 09/23/2023 10:17 PM CDT [facility] EXTEM ALPHA 74 65 - 80 ?? 09/23/2023 10:17 PM CDT [facility] EXTEM A10 60 46 - 67 mm 09/23/2023 10:17 PM CDT [facility] EXTEM A20 66 50 - 70 mm 09/23/2023 10:17 PM CDT [facility] EXTEM MCF 66 52 - 70 mm 09/23/2023 10:17 PM CDT [facility] EXTEM ML 7 % 09/23/2023 10:17 PM CDT [facility] EXTEM LI30 100 % 09/23/2023 10:17 PM CDT [facility] FIBTEM CT 116 s 09/23/2023 10:17 PM CDT [facility] FIBTEM CFT 593 s 09/23/2023 10:17 PM CDT [facility] FIBTEM ALPHA 67 ?? 09/23/2023 10:17 PM CDT [facility] FIBTEM A10 20 7 - 24 mm 09/23/2023 10:17 PM CDT [facility] FIBTEM A20 22 7 - 24 mm 09/23/2023 10:17 PM CDT [facility] FIBTEM MCF 23 7 - 24 mm 09/23/2023 10:17 PM CDT [facility] FIBTEM ML 0 % 09/23/2023 10:17 PM CDT [facility] FIBTEM LI30 100 % 09/23/2023 10:17 PM CDT [facility] HEPTEM CT 248(H) 122 - 208 s 09/23/2023 10:17 PM CDT [facility] HEPTEM CFT 83 45 - 110 s 09/23/2023 10:17 PM CDT [facility] HEPTEM ALPHA 73 70 - 81 ?? 09/23/2023 10:17 PM CDT [facility] HEPTEM A10 51 mm 09/23/2023 10:17 PM CDT [facility] HEPTEM A20 53 51 - 72 mm 09/23/2023 10:17 PM CDT [facility] HEPTEM MCF 54 51 - 72 mm 09/23/2023 10:17 PM CDT [facility] HEPTEM ML 10 % 09/23/2023 10:17 PM CDT [facility] Blood BLOOD SPECIMEN / Unknown Non-Lab Venipuncture / Unknown 09/23/2023 8:05 PM CDT 09/23/2023 8:13 PM CDT Milly HOUSE [facility] SENDOUT INTERNAL ZIP [phone] [place] [address] * CVC TRIPLE LUMEN, HCHG STOPCOCK PR5, HCHG ANES US GUIDE FOR VASC ACCESS, HCHG TUBING PR1, HCHG TUBING PR5, HCHG TUBING PR1, HCHG CATH INFUSION PR30, HCHG ADPTR PR1, HCHG KIT MONITORING PR5, HCHG TUBING PR5, HCHG DRSG PR5, HCHG DRSG PR1, C AN INTRODUCER 2 LUMEN PERFORMABLE, HCHG KIT PR5, HCHG CATHINFUSION PR70 (09/23/2023 4:34 PM CDT) Narrative Marylou De Anda MD - 09/23/2023 4:34 PM CDT Marylou De Anda MD ? 09/23/2023 ??4:34 PM CVC Patient location during procedure: OR Start time: 09/23/2023 2:35 PM End time: 09/23/2023 2:45 PM Indications: CVP monitoring and vascular access Completed: patient identified, risks and benefits discussed, consent obtained, hand hygiene performed, gown, full-body drape, chloraprep used and completely dried prior to procedure, cap, mask, gloves and timeout performed CVC Patient position: Trendelenburg Laterality: right Site: internal jugular Ultrasound guidance: live ultrasound, ultrasound permanent image saved and sterile gel and probe cover used in ultrasound-guided central venous catheter insertion. Needle localization (ultrasound): no pathologic findings, selected vessel patent, anatomically normal, potential access sites evaluated and needle visualized entering selected vessel. Confirmation: wire visualized in vein by ultrasound Port Insertion: all ports aspirated and all ports flushed easily Securement/Dressing: Biopatch applied, line sutured in place, dressing applied Catheter Catheter size: 9 Fr Catheter length: 12 cm Number of Lumens: double lumen Introducer present: yes Introducer type: TLIC Additional Notes Catheter inserted into right IJ with the intention of the distal tip residing in the right SVC or right Atrium. Marylou De Anda MD ANESTHESIA PX NOTE ORDERABLES * HCHG TUBING PR1, HCHG TUBING PR20, HCHG DRSG PR1, HCHG DRSG PR5, HCHG STATLOCK PR1, HCHG KIT PR5 (09/23/2023 4:34 PM CDT) Marylou Blanc MD - 09/23/2023 4:34 PM CDT Marylou De Anda MD ? 09/23/2023 ??4:34 PM Arterial Line Patient location during procedure: OR Start time: 09/23/2023 2:13 PM End time: 09/23/2023 2:18 PM Indications: lab sampling and monitoring Staffing Preanesthetic Checklist Completed: patient identified, risks and benefits discussed, consent obtained and timeout performed Arterial Line Patient position: supine. ??Comment:. Laterality: right Site: radial Local Anesthetic: lidocaine 1%. Ultrasound guidance: live ultrasound and sterile gel and probe cover used in ultrasound-guided central venous catheter insertion. Needle localization (ultrasound): no pathologic findings, anatomically normal, selected vessel patent, potential access sites evaluated and needle visualized entering selected vessel. Securement/dressing: Biopatch applied, dressing applied, STATLOCK stabilization placed. ??Comment: Supplemental O2: supplemental oxygen. ??Comment:. Vessel Seasonal Customer Service Associate Additional supplies used to locate vessel: no Needle Catheter size: 20 G. ??Comment:. Catheter length: other. ??Comment: Events: no complications. Marylou De Anda MD ANESTHESIA PX NOTE ORDERABLES * ZACHARY (09/23/2023 2:54 PM CDT) Marylou Blanc MD - 09/23/2023 2:54 PM CDT Marylou De Anda MD ? 09/23/2023 ??9:51 PM ZACHARY Start time: 09/23/2023 2:54 PM Completed: Patient identified, risks and benefits discussed, monitors and equipment assessed and anesthesia consent obtained. General Procedure Information Diagnostic Indications for Echo: assessment of surgical repair, hemodynamic monitoring, assessment of cardiac structure and function and elective. Location performed: OR procedure room Probe Insertion: easy Inserted by: AnesthesiologistProbe Type: multiplane Report generated by: AnesthesiologistIntubated: yes Stomach suctioned: no Bite block not inserted Supplemental O2: yes Echocardiographic and Doppler Measurements Ventricles Right Ventricle Cavity size: normal Global function: normal Left Ventricle Cavity size: normal Global Function: normal Ventricular Regional Function 1- Basal Anteroseptal: normal 2- Basal Anterior: normal 3- Basal Anterolateral: normal 4- Basal Inferolateral: normal 5- Basal Inferior: normal 6- Basal Inferoseptal: hypokinetic 7- Mid Anteroseptal: normal 8- Mid Anterior: normal 9- Mid Anterolateral: normal 10- Mid Inferolateral: normal 11- Mid Inferior: normal 12- Mid Inferoseptal: normal Valves Aortic Valve The annulus is normal. Regurgitation is none Leaflets are normal. Observed leaflet motions are normal Mitral Valve The annulus is normal. Regurgitation is: none Leaflets are normal Observed leaflet motions are normal Tricuspid Valve The annulus is normal. Regurgitation is trace Leaflets are normal Observed leaflet motions are normal. Pulmonic Valve Regurgitation is none Aorta Ascending Aorta Size is normal Dissection not present Plaque thickness is less than 3 mm Mobile plaque not present Aortic Arch Size is normal Dissection not present Plaque thickness is less than 3 mm Mobile plaque not present Descending Aorta Size is normal Dissection not present Plaque thickness less than 3 mm Mobile plaque not present Atria Right Atrium Size is dilated Left Atrium Size is dilated Left Atrial Appendage: Left atrial appendage normal Septa Atrial Septum Intra-atrial septal morphology: normal. Bubble study: no Other Findings Pericardium: ??normal Anesthesia Information Anesthesiologist: ??Marylou De Anda MD Echocardiogram Comments: ? INTRAOPERATIVE TRANSESOPHAGEAL ECHOCARDIOGRAM Name: Jose Guadalupe Ridley Date of service: ??09/23/2023 Procedure(s): CORONARY ARTERY BYPASS WITH GRAFTING, ENDOSCOPIC VEIN HARVEST . Video documentation of the exam on [employer] PRECPB EXAM The ZACHARY probe was placed easily, without resistance, on the first attempt while the patient was asleep and intubated. S/P Procedure(s): CORONARY ARTERY BYPASS WITH GRAFTING, ENDOSCOPIC VEIN HARVEST . OFF CPB-POST PROCEDURE EXAM The patient was adequately deaired prior to separation from CPB. ?? RV function-normal RV function, unchanged from pre-bypass LV function- EF:55%, normal LV function, slightly improved from pre-bypass on norepi 2mcg/min, no new RWMA. There was no aortic dissection post decannulation. Complete exam otherwise unchanged. Remainder of exam unchanged from pre-CPB. Images saved to audio production manager. Teeth and oropharynx unchanged from pre-op. Probe removed intact without signs of damage. This exam supervised by Marylou De Anda MD Anesthesiologist ?? Marylou De Anda MD ANESTHESIA PX NOTE ORDERABLES * HCHG TUBE PR1, HCHG INSTRUMENT DISP PR10, HCHG STYLET PR1, HCHG MOUTHPIECE PR1 (09/23/2023 2:41 PM CDT) Narrative Valarie Saini CRNA - 09/23/2023 2:41 PM CDT Valarie Saini CRNA ? 09/23/2023 ??2:41 PM Procedure: ETT Patient location during procedure: OR ETT Properties Mask Ventilation: easy and oral airway Final Technique: video laryngoscopy Type: straight Location: oral Cuffed: yes Tube Size: 8.0 mm Stylet: yes Laryngoscope Blade: Glidescope Blade Size: 4 Cormack-Lehane Grade View: 1 Insertion Attempts: 1 Placement Verification: auscultation, end tidal CO2 and symmetrical chest wall movement Assessment: pharynx clear, atraumatic and dentition unchanged Secured at: 22 Measured From: lips Tooth guard used and removed: yes Difficulty: 0 (not difficult) Marylou De Anda MD ANESTHESIA PX NOTE ORDERABLES * SCAN-CARDIAC STRIP (09/23/2023 9:50 AM CDT) Scanner OTHER * SCAN-CARDIAC STRIP (09/23/2023 4:04 AM CDT) Scanner OTHER * SCAN-OPERATIVE/PROCEDURE REPORT (09/23/2023 12:00 AM CDT) Narrative 09/23/2023 12:00 AM CDT Ordered by an unspecified provider. Other Clinical Staff OTHER * SCAN-CARDIAC STRIP (09/22/2023 3:49 PM CDT) Scanner OTHER * (ABNORMAL) CREATININE (09/22/2023 3:12 PM CDT) eGFR 73(L) >90 mL/min/1.7 3m2 09/22/2023 3:42 PM CDT [facility] Comment:As of 2021, eG FR is calculated by the CKD-EPI creatinine equation without race adjustment. ??eGFR can be influenced by muscle mass, exercise, and diet. ??The reported eGFR is an estimation only and is only applicable if the renal function is stable. CREATININE 1.13 0.70 - 1.20 mg/dL 09/22/2023 3:42 PM CDT [facility] Blood BLOOD SPECIMEN / Unknown Butterfly / Unknown 09/22/2023 3:12 PM CDT 09/22/2023 3:16 PM CDT Remi Chong NP CHEMISTRY [facility] SENDOUT INTERNAL ZIP [phone] [place] [address] * RED BLOOD CELLS EA UNIT (09/22/2023 9:35 AM CDT) Only the most recent of2 resultswithin the time period is included. CROSSMATCH Compatible Compatible [facility] BLOOD BANK PRODUCT BLOOD TYPE O Rh Negative [facility] BLOOD BANK PRODUCT ID NUMBER [id number] [facility] BLOOD BANK PRODUCT STATUS /Relea sed [facility] BLOOD BANK PRODUCT DESCRIPTION RBC -1 LR [facility] BLOOD BANK PRODUCT CODE [id number] [facility] BLOOD BANK Remi Chong NP BLOOD BANK Performing Organization Address [facility]/ZIP Co de Phone Number [facility] BLOOD BANK [address] [place] [phone] * EXTRA TUBE LAVENDER (09/22/2023 9:34 AM CDT) Blood BLOOD SPECIMEN / Unknown Extra Tube / Unknown 09/22/2023 9:34 AM CDT 09/22/2023 10:58 AM CDT Doctor Unknown LABORATORY Performing Organization Address City/[facility]/ZIP Co de Phone Number [facility] SENDOUT INTERNAL ZIP [phone] [place] [address] * RBC W TYPE AND SCREEN (09/22/2023 9:34 AM CDT) ABORH O Rh Negative 09/22/2023 11:35 AM CDT [facility] BLOOD BANK ANTIBODY SCREEN Negative Negative 09/22/2023 11:35 AM CDT [facility] BLOOD BANK SPECIMEN EXPIRATION DATE/TIME 09/25/23 23:59 09/22/2023 11:35 AM CDT [facility] BLOOD BANK Blood BLOOD SPECIMEN / Unknown Venipuncture / Unknown 09/22/2023 9:34 AM CDT 09/22/2023 10:49 AM CDT Remi Chong NP BLOOD BANK Performing Organization Address [facility] de Phone Number [facility] BLOOD BANK [address] [place] [address] * SCAN-CARDIAC STRIP (09/22/2023 8:13 AM CDT) Scanner OTHER * HEMATOCRIT (09/22/2023 4:55 AM CDT) Only the most recent of4 resultswithin the time period is included. HEMATOCRIT 45.1 37.0 - 53.0 % 09/22/2023 5:21 AM CDT [facility] Blood BLOOD SPECIMEN / Unknown Venipuncture / Unknown 09/22/2023 4:55 AM CDT 09/22/2023 5:18 AM CDT Narrative [facility] - 09/22/2023 5:21 AM CDT Every morning while on IV heparin. Every morning while on IV heparin. Necessary every morning while on IV heparin. Wendy King DO HEMATOLOGY Performing Organization Address [facility] Co de Phone Number [facility] SENDOUT INTERNAL ZIP [phone] [place] [address] * SCAN-CARDIAC STRIP (09/22/2023 1:22 AM CDT) Scanner OTHER * SCAN-CARDIAC STRIP (09/21/2023 7:52 PM CDT) Scanner OTHER * SCAN-CARDIAC STRIP (09/21/2023 5:24 PM CDT) Scanner OTHER * SCAN-CARDIAC STRIP (09/21/2023 8:57 AM CDT) Scanner OTHER * SCAN-CARDIAC STRIP (09/21/2023 1:49 AM CDT) Scanner OTHER * CTA CHEST - DUAL READ (09/20/2023 3:31 PM CDT) Anatomical Region Laterality Modality CHEST Computed Tomogra phy Impressions 09/22/2023 3:42 PM CDT 1. ?Cholelithiasis. 2. ?Please refer to laundry operator wash room's dictation for the cardiac CT report. Narrative 09/22/2023 3:42 PM CDT Results are automatically released to your [employer]) account once available, in compliance with federal regulations. ??This means that you may see your results before your provider has had a chance to review them. ??Please allow 2-3 business days for your provider to comment on the results. CT ANGIOGRAM OF THE THORACIC AORTA, 09/20/2023 INDICATION: Pre-coronary artery bypass grafting. CONCLUSIONS: This is a dual read study - please review [facility] over-read below for incidental non cardiac findings. Normal size thoracic aorta without evidence of coarctation or dissection. Normal arch anatomy with widely patent great vessels. No significant atherosclerosis of the ascending, transverse, or descending thoracic aorta noted. No intracardiac mass or thrombus. No significant pericardial effusion. Mild three-vessel coronary artery calcification. TECHNIQUE: ECG-gated CT angiogram of the thoracic aorta with intravenous contrast Omnipaque 350, 100 cc at 5 cc/sec, was performed on a ??[employer] S[employer] Alphatec Spine CT scanner. The imaging protocol was individualized to minimize radiation exposure. The following ECG-gated acquisition protocol was used: High pitch prospective. ??Pulse range 300-300. Tube potential: 120 kV. Tube current: 5004 mAs. Total DLP: 1158 mGy*cm; mSv: 16.2; CTDI: 54.3. Image post processing was performed on a [employer] Workstation. Images were reconstructed at a slice thickness of 1 mm with 1 mm overlap. Average heart rate during the study was 89 BPM. No significant arrhythmias. There were no apparent complications. TECHNICAL QUALITY: Excellent FINDINGS THORACIC AORTA: Trileaflet aortic valve. Aortic root is at the upper limits of normal in size measuring 34 x 34 x 38 mm. Sinotubular junction preserved, measuring 33 x 32 mm. Mid ascending aorta upper limits of normal in size measuring 38 x 36 mm. The aorta measures 35 x 36 mm at the origin of the innominate artery. Normal arch anatomy. The proximal to mid portions of the great vessels are widely patent. Transverse aorta measures 30 x 26 mm. Proximal descending thoracic aorta measures 25 x 25 mm. Aorta a the diaphragmatic hiatus measures 23 x 21 mm. No significant aortic atherosclerosis is noted. CARDIAC: Left atrial enlargement noted. Left atrial appendage well opacified, no visible thrombus. No significant calcification of the mitral valve. No LV mass or thrombus. No significant aortic valve calcification. No significant pericardial effusion. CORONARY ARTERIES: Normal origins of the left main and the right coronary artery. Mild coronary artery calcifications are noted. VESSELS: Normal pulmonary artery caliber. Normally connected pulmonary veins without stenosis or obstruction. NON-CARDIAC: Please review radiology report below for incidental non-cardiac findings. Monique Finn MD [facility] AB/car For Patients: As a result of the 21st Century Cures Act, medical imaging exams and procedure reports are released immediately into your electronic medical record. You may view this report before your referring provider. If you have questions, please contact your health care provider. EXAM: OVERREAD: DETAILED [facility] [facility] EXTRACARDIAC OVERREAD OF CARDIAC CT LOCATION: [facility] MEDICAL IMAGING DATE: 09/20/2023 INDICATION: Preoperative aortic assessment. TECHNIQUE: Dose reduction techniques were used. COMPARISON: None. FINDINGS: LIMITED CHEST: Scattered mild atelectasis. LIMITED MEDIASTINUM: Cardiomegaly. No central pulmonary embolism. No bulky lymphadenopathy. LIMITED UPPER ABDOMEN: Cholelithiasis. 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 Remi Chong NP CT * US ARTERIAL UPPER EXTREMITY LEFT (09/20/2023 2:19 PM CDT) Anatomical Region Laterality Modality ARMS, ARM L Ultrasound 09/20/2023 2:19 PM CDT Impressions 09/20/2023 2:49 PM CDT 1. ??Left radial artery is widely patent with normal waveforms throughout the forearm and wrist. Diameters range between 2.4 and 2.6 mm. 2. ??Barbeau type B waveform of the left first and fifth digits during radial artery compression. Narrative 09/20/2023 2:49 PM CDT For Patients: As a result of the Cures Act, medical imaging exams and procedure reports are released immediately into your electronic medical record. You may view this report before your referring provider. If you have questions, please contact your health care provider. EXAM: US ARTERIAL UPPER EXTREMITY LEFT LOCATION: [facility] MEDICAL IMAG[facility] DATE: 09/20/2023 INDICATION: Severe coronary artery disease, presurgical evaluation prior to CABG COMPARISON: None. TECHNIQUE: Arterial Duplex ultrasound of the left arm. Color flow and spectral Doppler with waveform analysis performed. FINDINGS (LEFT upper extremity): ARTERIAL PEAK SYSTOLIC VELOCITIES (cm/s): Left brachial, radial, and ulnar arteries all appear widely patent. The left radial artery measures 2.4 to 2.6 mm in diameter throughout the wrist and forearm. WAVEFORMS/COLOR DOPPLER: Normal waveforms. Flow to the fingers persists during radial and ulnar compression. During radial artery compression, there is slight blunting of the digital waveform. Procedure Note Aleksandr Slade MD - 09/20/2023 For Patients: As a result of the Cures Act, medical imagingexams and procedure reports are released immediately into your electronicmedical record. You may view this report before your referring provider.If you have questions, please contact your health care provider. EXAM: US ARTERIAL UPPER EXTREMITY LEFT LOCATION: [facility] MEDICAL IMAGING DATE: 09/20/2023 INDICATION: Severe coronary artery disease, presurgical evaluation priorto CABG COMPARISON: None. TECHNIQUE: Arterial Duplex ultrasound of the left arm. Color flow andspectral Doppler with waveform analysis performed. FINDINGS (LEFT upper extremity): ARTERIAL PEAK SYSTOLIC VELOCITIES (cm/s): Left brachial, radial, and ulnar arteries all appear widely patent. Theleft radial artery measures 2.4 to 2.6 mm in diameter throughout the wristand forearm. WAVEFORMS/COLOR DOPPLER: Normal waveforms. Flow to the fingers persists during radial and ulnar compression. Duringradial artery compression, there is slight blunting of the digitalwaveform. IMPRESSION: 1. Left radial artery is widely patent with normal waveforms throughoutthe forearm and wrist. Diameters range between 2.4 and 2.6 mm. 2. Barbeau type B waveform of the left first and fifth digits duringradial artery compression. Remi Stroud Arlette WISEMAN US * US VEIN MAPPING LOWER EXTREMITY BILATERAL (09/20/2023 2:18 PM CDT) Anatomical Region Laterality Modality LEGS, LEG L, LEG R Ultrasound 09/20/2023 2:18 PM CDT Impressions 09/21/2023 7:22 AM CDT 1. The great saphenous veins have previously been surgically stripped bilaterally. 2. The small saphenous veins are patent, venous diameters as described above. Narrative 09/21/2023 7:22 AM CDT For Patients: As a result of the Cures Act, medical imaging exams and procedure reports are released immediately into your electronic medical record. You may view this report before your referring provider. If you have questions, please contact your health care provider. EXAM: US VEIN MAPPING LOWER EXTREMITY BILATERAL LOCATION: [facility] MEDICAL IMAGING DATE: 09/20/2023 INDICATION: Graft suitability COMPARISON: None. TECHNIQUE: Ultrasound examination of the lower extremity veins was performed, including vega-scale and compression imaging. LOWER ??EXTREMITY FINDINGS: ?? VENOUS DIAMETERS RIGHT GREAT SAPHENOUS VEIN Previous great saphenous vein stripping LEFT GREAT SAPHENOUS VEIN Previous great saphenous vein stripping RIGHT SMALL SAPHENOUS VEIN Upper Calf: 2.5 mm Mid Calf: 3.8 mm Lower Calf: 2.7 mm Ankle: 2.7 mm LEFT SMALL SAPHENOUS VEIN Upper Calf: 2.1 mm Mid Calf: 2.5 mm Lower Calf: 3 mm Ankle: Not visualized Procedure Note Deb Pollock MD - 09/21/2023 For Patients: As a result of the Cures Act, medical imagingexams and procedure reports are released immediately into your electronicmedical record. You may view this report before your referring provider.If you have questions, please contact your health care provider. EXAM: US VEIN MAPPING LOWER EXTREMITY BILATERAL LOCATION: [facility] MEDICAL IMAGING DATE: 09/20/2023 INDICATION: Graft suitability COMPARISON: None. TECHNIQUE: Ultrasound examination of the lower extremity veins wasperformed, including vega-scale and compression imaging. LOWER EXTREMITY FINDINGS: VENOUS DIAMETERS RIGHT GREAT SAPHENOUS VEIN Previous great saphenous vein stripping LEFT GREAT SAPHENOUS VEIN Previous great saphenous vein stripping RIGHT SMALL SAPHENOUS VEIN Upper Calf: 2.5 mm Mid Calf: 3.8 mm Lower Calf: 2.7 mm Ankle: 2.7 mm LEFT SMALL SAPHENOUS VEIN Upper Calf: 2.1 mm Mid Calf: 2.5 mm Lower Calf: 3 mm Ankle: Not visualized IMPRESSION: 1. The great saphenous veins have previously been surgically strippedbilaterally. 2. The small saphenous veins are patent, venous diameters as describedabove. Remi Chong NP US * SCAN-CARDIAC STRIP (09/20/2023 8:44 AM CDT) Scanner OTHER * SCAN-CARDIAC STRIP (09/20/2023 4:53 AM CDT) Scanner OTHER * SCAN-CARDIAC STRIP (09/20/2023 2:11 AM CDT) Scanner OTHER * SCAN-CARDIAC STRIP (09/20/2023 2:09 AM CDT) Scanner OTHER * SCAN-CARDIAC STRIP (09/20/2023 1:53 AM CDT) Scanner OTHER * SCAN-CARDIAC STRIP (09/20/2023 1:52 AM CDT) Scanner OTHER * SCAN-CARDIAC STRIP (09/20/2023 1:47 AM CDT) Scanner OTHER * SCAN-CARDIAC STRIP (09/19/2023 8:49 PM CDT) Scanner OTHER * SCAN-CARDIAC STRIP (09/19/2023 5:47 PM CDT) Scanner OTHER * CVL CORONARY ANGIOGRAM POSS PCI (09/19/2023 5:17 PM CDT) Anatomical Region Laterality Modality Other 09/19/2023 5:17 PM CDT Narrative Transcriptions Kamran Li MD - 09/19/2023 5:[address] [facility] [place] [facility] Cardiac Catheterization Report Name: JOSE GUADALUPE RIDLEY Event Date: 09/19/2023 17:17 Excellian ID #: [id number] JAKE #: [id number] Diagnostic Physician: KAMRAN LI [facility] Primary Wheel Blocker: RACHID MÉNDEZ Referring Physician: Date: 1960 Gender: Male Age: 63 Summary/Conclusions PRESENTATION / INDICATIONS * NSTEMI VASCULAR ACCESS * Using ultrasound guidance and a percutaneous technique, the right radialartery was accessed. Ultrasound was used to confirm vessel patency,localizing needle into the lumen of the vessel. An image was saved for themedical record. DIAGNOSTIC - CORONARY * Co-dominant coronary artery system * The left main artery was normal in appearance and free of obstructivedisease. * The LAD is severely diseased. There is mild ostial disease, but diffusemoderate disease and a severe focal lesion in mid segment as well assegments of severe disease in mid-distal and distal vessel * The circumflex artery has moderate to severe disease. There is a largeRamus/OM-1 with ostial and proximal disease (75%) and similar proximaldisease (75%) in Cx. Both are large branches as the Cx is co-dominant. * The RCA is severely diseased. 80% stenosis in distal RCA involving theorigin of PDA and bifurcating OFE. HEMODYNAMICS * The LVEDP is mildly elevated (18mmgh) RECOMMENDATIONS & PLAN * Recommend surgical revascularization. Reviewed with interventionalcolleague. May require endarterectomy of LAD at time of SHER grafting.Patient has diabetes, multi-vessel disease and reduced EF. Would needgrafts to LAD, Ramus, Distal CX and distal RCA. * Optimize risk factors and medications: HDL > 45 ; LDL < 70 ;Triglycerides < 100 Consent & [place] Protocol The risks, benefits, and alternatives of the procedure were discussed withthe patient and written informed consent was obtained. [place] protocol was followed. TIME OUT conducted just prior tostarting procedure confirmed patient identity, site/side, procedure,patient position, and availability of correct equipment and implants (ifapplicable). Staff Name Title KAMRAN LI Diagnostic Wheel Blocker Rafaela Bailey RN Nurse Dang Ghosh RN Nurse Amy Wolf RTR Scrub Dulce Maria Villalba CVT Monitor Amy Wolf RTR Scrub Tiny Mendoza RN Nurse Procedures ? US Guided Access ? LHC, Cor Angio Hemodynamics State: Baseline Pressures (mmHg) Site Systolic Diastolic End Diastolic A Wave V Wave Mean AO 127 87 101 LV 155 16 LV 155 -1 18 LV 154 17 AO 153 84 84 Procedure Details Estimated Blood Loss: < 30 ml Specimen Collected: None Level of Sedation Achieved: Moderate Procedure Start: 17:17 Fluoroscopy Time: 2.6 min Cumulative Air Kerma: 493 mGy DAP: 70694 mGy/cm2 Contrast: Omnipaque, 50 ml Visipaque 320, 25 ml Physiologic Data Weight: 144.2 kg BSA: 2.56 m2 Vascular Access Time Access Sheath Size 17:19 Percutaneous Puncture to Rt Radial Artery Complications ? No Complications Medications Ordered and Administered Start Time Stop Time Medication Dose Units Route Ordered By Given By 17:04 Fentanyl 50 mcg IV Kamran Li Kendra RN 17:04 Versed (midazolam) 1 mg IV Kamran Li Kendra RN 17:13 Fentanyl 25 mcg IV Kamran Li Kendra RN 17:14 Versed (midazolam) 1 mg IV Kamran Li Kendra RN 17:19 Lidocaine 1% 3 ml Subcut Kamran Li Thomas A 17:19 Nitroglycerin 200 mcg IA Kamran Li Thomas A 17:19 Nicardipine 200 mcg IA Kamran Li Thomas A 17:22 Heparin 5000 units IV Kamran Li Kathy RN I personally monitored the patient?s conscious sedation during theprocedure. Conscious sedation starts with the first sedation medication dose ofFentanyl or Versed and ends when the procedure is completed, the patientis stable for recovery status, and the physician or other qualified healthcare professional providing the sedation ends personal [id number] time with the patient. The medications listed above were verbally ordered by me and read back tome as documented above. Refer to the procedure log report for additional case details. electronically signed on 09/19/2023 5:59:16 PM with status of Final Kamran Li MD [address], [place] [address] [address] [place] [address] (p) [phone](f) Quentin Aiken MD CV IMAGING * ECHO TTE COMPLETE W CONTRAST (09/19/2023 10:48 AM CDT) EJECTION FRACTION 45-50% PROSOLV Anatomical Region Laterality Modality Ultrasound 09/19/2023 10:1 2 AM CDT Narrative 09/19/2023 11:44 [place] [address] Main: [email or web address] ? 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 BP: 141 / 82 Weight: 318 lbs BMI: 44.4 kg/m?? HR: 85 Location: Inpatient (Portable) Rhythm: Normal Sinus Rhythm Procedure Components: 2D imaging with contrast, Color Doppler, Spectral Doppler Indications: Chest pain chest pressure chest tightening Technical Quality: Fair Contrast: Definity Constrast Dose (ml): 0.3 [facility]#: [id number] Final Conclusion 1. Technically challenging echocardiogram. 2. Normal left ventricular chamber size. Mild left ventricular chamber enlargement. Mildly decreased left ventricular systolic function. Calculated left ventricular ejection fraction (modified Olvera technique) is 47%. Akinesis of apical segments with preservation of basal segments. 3. Normal right ventricular chamber size. Normal right ventricular systolic function. 4. Cardiac valves were not well visualized but there is no hemodynamically significant stenosis or regurgitation identified by Doppler interrogation. 5. Dilated inferior vena cava with normal inspiratory collapse. 6. There were no prior studies available for comparison. Estimated EF: 45-50% FINDINGS Left Ventricle Normal left ventricular chamber size. Mild left ventricular chamber enlargement. Mildly decreased left ventricular systolic function. Calculated left ventricular ejection fraction (modified Olvera technique) is 47%. Akinesis of apical segments with preservation of basal segments. Diastolic Function Indeterminate left ventricular diastolic function. Right Ventricle Normal right ventricular chamber size. Normal right ventricular systolic function. Right ventricular systolic pressure cannot be estimated due to inability to detect peak tricuspid regurgitation Doppler velocity. Left Atrium Moderate left atrial enlargement. Left atrial volume index is 42 ml/m??. Right Atrium Right atrial enlargement. Atrial Septum No evidence of inter-atrial shunt by color flow Doppler. Aortic Valve Aortic valve was not well visualized. No aortic valve stenosis. No aortic valve regurgitation. Mitral Valve Mitral valve was not well visualized. No mitral valve stenosis. Trivial mitral valve regurgitation. Tricuspid Valve Tricuspid valve was not well visualized. Trivial tricuspid valve regurgitation. Pulmonic Valve Pulmonary valve was not well visualized. No pulmonary valve regurgitation. Pericardium No pericardial effusion. Prominent epicardial fat pad. Aorta Aortic sinus of Valsalva is normal in size (3.9 cm, ZScore = 0). Normal indexed ascending aorta dimension (3.8 cm, 1.5 cm/m??). Inferior Vena Cava Dilated inferior vena cava with normal inspiratory collapse. MEASUREMENTS ??(Male / Female) Normal Values 2D MEASUREMENTS AND LV FUNCTION IVS Diastolic Thickness ? 1.18 cm ? < 1.1 cm / < 1.0 cm LV Diastolic Diameter PLAX ?5.93 cm ? 4.2 - 5.9 / 3.9 - 5.3 cm LV Diastolic Diameter Index ? 2.31 cm/m?? LVPW Diastolic Thickness ?0.981 cm ?< 1.1 cm / < 1.0 cm LVOT Diameter ? 2.3 cm LVOT Cardiac Output ? 9.04 l/min LVOT Cardiac Index ?3.28 l/min??m?? LVOT Stroke Volume ?106 ml Stroke Volume Index ? 38.6 ml/m?? LV Ejection Fraction MOD BP ? 47.2 % ?>= 55 ??% LA Area 4C View ? 35.8 cm?? LA Length 4C ?8.27 cm LA Area 2C View ? 28.7 cm?? LA Length 2C ?7.41 cm LA Volume ? 105 ml LA Volume MOD BP ?109 ml LA Volume Index MOD BP ?42.4 ml/m?16 - 34 ml/m?? RV Diastolic Basal Diameter ? 3.56 cm RV Diastolic Mid Diameter ? 2.81 cm LV Mass ? 268 g LV Mass Index ? 99.6 g/m?? Sinuses of Valsalva Diameter(d) ?? 3.9 cm Ascending Aorta Diameter(s) ? 3.8 cm IVC Diameter Expiration ? 2.51 cm Ascending Aorta Index ? 1.48 cm/m?? M MODE TAPSE MM ?2.05 cm DIASTOLOGY Mitral E Point Velocity ? 0.73 m/sec ?0.70 - 1.02 m/sec Mitral A Point Velocity ? 0.699 m/sec ? 0.06 - 1.06 m/sec Mitral E to A Ratio ? 1.04 ?1.1 - 2.1 MV Deceleration Time ?177 msec ?167 - 231 msec LV E' Lateral Velocity ?0.0751 m/sec Mitral E to LV E' Lateral Ratio ?? 9.72 LV E' Septal Velocity ? 0.0653 m/sec Mitral E to LV E' Septal Ratio ?11.2 AORTIC VALVE AV Peak Velocity ?1.37 m/sec ?< 2.0 m/sec AV Peak Gradient ?7.51 mmHg AV Mean Gradient ?5 mmHg AV Velocity Time Integral ? 30 cm LVOT Peak Velocity ?1.06 m/sec LVOT Velocity Time Integral ? 25.6 cm AV Area Cont Eq vti ? 3.55 cm?? AV Area Cont Eq pk ?3.21 cm?? AV Dimensionless Index ?0.853 MITRAL VALVE MV Pressure Half Time ? 52 msec MV Area PHT ? 4.23 cm?? TRICUSPID VALVE AND ESTIMATED PRESSURES Right Atrial Pressure ? 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 BP: 141 / 82 Weight: 318 lbs BMI: 44.4 kg/m?? HR: 85 Location: Inpatient (Portable) Rhythm: Normal Sinus Rhythm Procedure Components: 2D imaging with contrast, Color Doppler, SpectralDoppler Indications: Chest pain chest pressure chest tightening Technical Quality: Fair Contrast: Definity Constrast Dose (ml): 0.3 [facility]#: [id number] Final Conclusion 1. Technically challenging echocardiogram. 2. Normal left ventricular chamber size. Mild left ventricular chamberenlargement. Mildly decreased left ventricular systolic function. Calculated left ventricular ejection fraction (modified Simpsontechnique) is 47%. Akinesis of apical segments with preservation of basal segments. 3. Normal right ventricular chamber size. Normal right ventricularsystolic function. 4. Cardiac valves were not well visualized but there is nohemodynamically significant stenosis or regurgitation identified byDoppler interrogation. 5. Dilated inferior vena cava with normal inspiratory collapse. 6. There were no prior studies available for comparison. Estimated EF: 45-50% FINDINGS Left Ventricle Normal left ventricular chamber size. Mild leftventricular chamber enlargement. Mildly decreased left ventricular systolic function. Calculated left ventricular ejection fraction(modified Olvera technique) is 47%. Akinesis of apical segments with preservation of basal segments. Diastolic Function Indeterminate left ventricular diastolic function. Right Ventricle Normal right ventricular chamber size. Normal rightventricular systolic function. Right ventricular systolic pressure cannot be estimated due to inability to detect peak tricuspidregurgitation Doppler velocity. Left Atrium Moderate left atrial enlargement. Left atrial volume index is42 ml/m??. Right Atrium Right atrial enlargement. Atrial Septum No evidence of inter-atrial shunt by color flow Doppler. Aortic Valve Aortic valve was not well visualized. No aortic valvestenosis. No aortic valve regurgitation. Mitral Valve Mitral valve was not well visualized. No mitral valvestenosis. Trivial mitral valve regurgitation. Tricuspid Valve Tricuspid valve was not well visualized. Trivialtricuspid valve regurgitation. Pulmonic Valve Pulmonary valve was not well visualized. No pulmonaryvalve regurgitation. Pericardium No pericardial effusion. Prominent epicardial fat pad. Aorta Aortic sinus of Valsalva is normal in size (3.9 cm, ZScore = 0).Normal indexed ascending aorta dimension (3.8 cm, 1.5 cm/m??). Inferior Vena Cava Dilated inferior vena cava with normal inspiratorycollapse. MEASUREMENTS (Male / Female) Normal Values 2D MEASUREMENTS AND LV FUNCTION IVS Diastolic Thickness 1.18 cm < 1.1 cm / < 1.0cm LV Diastolic Diameter PLAX 5.93 cm 4.2 - 5.9 / 3.9 -5.3 cm LV Diastolic Diameter Index 2.31 cm/m?? LVPW Diastolic Thickness 0.981 cm < 1.1 cm / < 1.0cm LVOT Diameter 2.3 cm LVOT Cardiac Output 9.04 l/min LVOT Cardiac Index 3.28 l/min??m?? LVOT Stroke Volume 106 ml Stroke Volume Index 38.6 ml/m?? LV Ejection Fraction MOD BP 47.2 % >= 55 % LA Area 4C View 35.8 cm?? LA Length 4C 8.27 cm LA Area 2C View 28.7 cm?? LA Length 2C 7.41 cm LA Volume 105 ml LA Volume MOD BP 109 ml LA Volume Index MOD BP 42.4 ml/m?? 16 - 34 ml/m?? RV Diastolic Basal Diameter 3.56 cm RV Diastolic Mid Diameter 2.81 cm LV Mass 268 g LV Mass Index 99.6 g/m?? Sinuses of Valsalva Diameter(d) 3.9 cm Ascending Aorta Diameter(s) 3.8 cm IVC Diameter Expiration 2.51 cm Ascending Aorta Index 1.48 cm/m?? M MODE TAPSE MM 2.05 cm DIASTOLOGY Mitral E Point Velocity 0.73 m/sec 0.70 - 1.02m/sec Mitral A Point Velocity 0.699 m/sec 0.06 - 1.06m/sec Mitral E to A Ratio 1.04 1.1 - 2.1 MV Deceleration Time 177 msec 167 - 231 msec LV E' Lateral Velocity 0.0751 m/sec Mitral E to LV E' Lateral Ratio 9.72 LV E' Septal Velocity 0.0653 m/sec Mitral E to LV E' Septal Ratio 11.2 AORTIC VALVE AV Peak Velocity 1.37 m/sec < 2.0 m/sec AV Peak Gradient 7.51 mmHg AV Mean Gradient 5 mmHg AV Velocity Time Integral 30 cm LVOT Peak Velocity 1.06 m/sec LVOT Velocity Time Integral 25.6 cm AV Area Cont Eq vti 3.55 cm?? AV Area Cont Eq pk 3.21 cm?? AV Dimensionless Index 0.853 MITRAL VALVE MV Pressure Half Time 52 msec MV Area PHT 4.23 cm?? TRICUSPID VALVE AND ESTIMATED PRESSURES Right Atrial Pressure 8 mmHg HCM DATA LVOT KATIA (r) 4.49 mmHg Aortic Root ZScore: 0.00 Rusty Major MD (Electronically Signed) [facility] Accredited Site Final Date: 19 September 2023 11:44 ICD-10 Codes: Wendy King DO ECHO ORD * SCAN-CARDIAC STRIP (09/19/2023 8:00 AM CDT) Scanner OTHER * SCAN-CARDIAC STRIP (09/19/2023 4:02 AM CDT) Scanner OTHER * SCAN-CARDIAC STRIP (09/18/2023 7:42 PM CDT) Scanner OTHER * SCAN-CARDIAC STRIP (09/18/2023 7:55 AM CDT) Scanner OTHER * (ABNORMAL) HEMOGLOBIN A1C SCREENING (09/18/2023 4:17 AM CDT) HEMOGLOBIN A1C SCREENING 6.5(H) <=6.4 % 09/18/2023 7:22 AM CDT [facility] Blood BLOOD SPECIMEN / Unknown Venipuncture / Unknown 09/18/2023 4:17 AM CDT 09/18/2023 4:27 AM CDT Narrative [facility] - 09/18/2023 7:22 AM CDT ? (<5.7%) ?Normal ? (5.7% to 6.4%) ? Indicates prediabetes ? (>=6.5%) ? Confirms diabetes Falsely low levels may be seen with: Recent Transfusion, Recent Significant Blood Loss, Hemolytic Diseases, or Falsely elevated levels may be seen with: Untreated Anemias, Splenectomy Wendy King DO CHEMISTRY [facility] SENDOUT INTERNAL ZIP [phone] [place] [address] * LIPID PANEL (09/18/2023 4:17 AM CDT) CHOLESTEROL,TOTAL 174 100 - 199 mg/dL 09/18/2023 4:54 AM CDT [facility] Comment: Cholesterol, Total Reference Ranges Desirable <200 mg/dL Borderline 200-239 mg/dL High >=240 mg/dL TRIGLYCERIDES 105 <150 mg/dL 09/18/2023 4:54 AM CDT [facility] HDL CHOLESTEROL 42 >40 mg/dL 4:54 AM CDT [facility] NON-HDL CHOLESTEROL 132 <145 mg/dl 09/18/2023 4:54 AM CDT [facility] CHOL/HDL RATIO 4.14 <4.50 09/18/2023 4:54 AM CDT [facility] LDL CHOLESTEROL 111 <=130 mg/dL 09/18/2023 4:54 AM CDT [facility] VLDL CHOLESTEROL 21 <=30 mg/dL 09/18/2023 4:54 AM CDT [facility] PROVIDER ORDERED STATUS RANDOM 09/18/2023 4:54 AM CDT [facility] Blood BLOOD SPECIMEN / Unknown Venipuncture / Unknown 09/18/2023 4:17 AM CDT 09/18/2023 4:27 AM CDT Wendy King DO CHEMISTRY [facility] SENDOUT INTERNAL ZIP [address] [place] [address] * SCAN-CARDIAC STRIP (09/18/2023 3:10 AM CDT) Scanner OTHER * SCAN-CARDIAC STRIP (09/18/2023 12:00 AM CDT) Narrative 09/18/2023 12:00 AM CDT Ordered by an unspecified provider. Other Clinical Staff OTHER * (ABNORMAL) TROPONIN T (HS) ONE TIME (09/17/2023 9:52 PM CDT) TROPONIN T HS 156(H) 6-15 ng/L ng/L 09/17/2023 10:[address] [facility] Blood BLOOD SPECIMEN / Unknown Venipuncture / Unknown 09/17/2023 9:52 PM CDT 09/17/2023 9:53 PM CDT Pritesh Boyer MD CHEMISTRY [facility] [address] [address] * (ABNORMAL) TROPONIN T (HS) ACUTE W/2HR REFLEX (09/17/2023 7:55 PM CDT) TROPONIN T HS 74(H) 6-15 ng/L ng/L 09/17/2023 8:[address] [facility] Blood BLOOD SPECIMEN / Unknown IV Start / Unknown 09/17/2023 7:55 PM CDT 09/17/2023 7:56 PM CDT [facility] - 09/17/2023 8:29 PM CDT hs-cTnT (Elecsys Troponin T Gen 5) concentration (s) above the sex-specific 99th percentile (16 ng/L or greater for males or 11 ng/L or greater for females) are indicative of myocardial injury. If initial hs-cTnT <=100 ng/L at presentation, a 0h/2h ABSOLUTE (ng/L) delta change (rising or falling) of >=10 ng/L suggests a significant change, whereas a 0h/2h delta change <=3 ng/L suggests no significant change. If initial hs-cTnT >100 ng/L at presentation, a 0h/2h/ RELATIVE (percent, %) delta change of 20% is suggested to distinguish patients with acute vs. chronic myocardial injury. There are multiple etiologies that can cause hs-cTnT increases above the 99th percentile (myocardial injury) other than acute myocardial infarction. Clinical context and careful clinical evaluation are critical for diagnosis and risk-stratification. The diagnosis of acute myocardial infarction requires a rising and/or falling pattern in hs-cTnT concentrations with at least one value above the sex-specific 99th percentile PLUS at least one of the following clinical criteria: ischemic symptoms, new or presumed new significant ST-T wave changes or new LBBB, development of pathological Q waves, imaging evidence of new loss of viable myocardium or new regional wall motion abnormality, or identification of intracoronary atherothrombosis or an acute angiographic culprit on coronary angiography. In appropriate low-risk patients with a non-ischemic electrocardiogram without active chest pain with a symptom onset >3-hours without recurrence, a single initial hs-cTnT<6 ng/L identifies patient with a very low risk in emergency department patient population. Pritesh Boyer MD CHEMISTRY [facility] [address] [address] * (ABNORMAL) COMP METABOLIC PANEL (09/17/2023 7:55 PM CDT) SODIUM 138 136 - 145 mmol/L 09/17/2023 8:29 PM [facility] POTASSIUM 4.5 3.5 - 5.1 mmol/L 09/17/2023 8:29 PM [facility] CHLORIDE 102 98 - 107 mmol/L 09/17/2023 8:29 PM [facility] CO2,TOTAL 27 22 - 29 mmol/L 09/17/2023 8:29 PM [facility] ANION GAP 9 5 - 18 09/17/2023 8:29 PM [facility] GLUCOSE 229(H) 70 - 99 mg/dL 09/17/2023 8:29 PM [facility] CALCIUM 9.2 8.8 - 10.2 mg/dL 09/17/2023 8:29 PM [facility] BUN 17 8 - 23 mg/dL 09/17/2023 8:29 PM [facility] CREATININE 0.93 0.70 - 1.20 mg/dL 09/17/2023 8:29 PM [facility] BUN/CREAT RATIO 18 10 - 20 8:29 PM [facility] eGFR >90 >90 mL/min/1.7 3m2 09/17/2023 8:29 PM [facility] Comment:As of 2021, eG FR is calculated by the CKD-EPI creatinine equation without race adjustment. ??eGFR can be influenced by muscle mass, exercise, and diet. ??The reported eGFR is an estimation only and is only applicable if the renal function is stable. ALBUMIN 3.9(L) 4.0 - 4.9 g/dL 09/17/2023 8:29 PM [facility] PROTEIN,TOTAL 7.2 6.0 - 8.0 g/dL 09/17/2023 8:[address] [facility] BILIRUBIN,TOTAL 0.5 0.0 - 1.2 mg/dL 09/17/2023 8:[address] [facility] ALK PHOSPHATASE 114 40 - 129 IU/L 09/17/2023 8:[address] [facility] ALT (SGPT) 30 10 - 50 IU/L 09/17/2023 8:[address] [facility] AST (SGOT) 37 10 - 50 IU/L 09/17/2023 8:[address] [facility] Blood BLOOD SPECIMEN / Unknown IV Start / Unknown 09/17/2023 7:55 PM CDT 09/17/2023 7:56 PM CDT Pritesh Boyer MD CHEMISTRY [facility] [address] [address] * (ABNORMAL) REFERRAL SUSCEPTIBILITY (09/02/2023 8:26 AM CDT) CULTURE RESULT(A) 09/07/2023 10:49 AM CDT [facility] CULTURE Streptococcus dysgalactiae (Beta Strep group C or G) 09/07/2023 10:49 AM CDT [facility] Other (Left ankle) Client [...] or G) CLARITHROMYCIN S Doctor Unknown MICROBIOLOGY [facility] [address] [place] [address], from Last 3 Months Advance Directives * Full Code (Latest Code Status on File) Date Activated Date Inactivated Comments 09/18/2023 2:59 AM 09/28/2023 4:36 PM Question Answer Comments Code Status Discussion: Reviewed Preferences * Full Code Date Activated Date Inactivated Comments 09/19/2017 2:10 PM 09/22/2017 8:18 PM Question Answer Comments Code Status Discussion: Not Discussed Care Teams Weight And Balance Control Agent Relationship Specialty Start Date End Date Munir Sahu MD [address] [place] [address] PCP - General Family Practice 09/17/23 [facility] [address] [place] [address] 09/28/23
== END 2023-10-03 15:09 | disposition home or self-care (01) ==
LOC: NFLDREF 15:10
PROVIDERS: PCP Family Medicine; Visit Provider Internal Medicine
DX: E11.65 Type 2 diabetes mellitus with hyperglycemia (principal); Z79.84 Long term (current) use of oral hypoglycemic drugs
CPT/HCPCS: 80048

== ENCOUNTER 2023-10-14 07:48 | Outpatient (CLI) | payer OTHER, SELFPAY ==
--- OUTSIDE RECORDS SUMMARY | 2023-10-14 07:49 | XMS_ITS | Data Portability ---
Author Organization [place] [facility] Address [address] [place] [address] Care Team Providers Care Kiln Firer Name Role Phone GORDY SOL Primary Care Provider Assessment Encounter Date Assessment Date Assessment LastModified by Organization Details LastModified Time 11/21/2019 11/21/2019 59M with [id number] [place] 3+4=7 prostate cancer s/p RALP. Discussed pathology, risk of recurrence, need for ongoing PSA monitoring. Small anastomotic leak, will cont Choi x 1 more week. Worsened LE edema, likely chronic, but will check LE u/s to be sure no DVT. [email or web address] Not available 11/21/2019 14:07:03 01/02/2020 01/02/2020 59M with [id number] [place] 3+4=7 prostate cancer s/p RALP. 1) Prostate cancer - f/u 4 months with PSA 2) EVETTE, moderate - cont Kegels - consider PFPT 3) ED - Cialis PRN [email or web address] Not available 01/02/2020 09:34:03 05/01/2020 05/01/2020 60M with [id number] [place] 3+4=7 prostate cancer s/p RALP 6 months ago. MICHAEL. 1) Prostate cancer - f/u 6 months with PSA 2) EVETTE, moderate - cont Kegels - consider PFPT 3) ED - Cialis PRN [email or web address] Not available 05/01/2020 10:47:29 10/24/2020 10/24/2020 60M with [id number] [place] 3+4=7 prostate cancer s/p RALP 1 year [...] record ed. Lab PSA, serum or plasma 2019 020 [email or web address] Not available 0 09:34:26 PSA, serum or plasma 2020 021 [email or web address] Not available 1 10:40:47 PSA, serum or plasma 2020 021 [email or web address] Not available 10:45:51 Referral pelvic floor therap y referr al 2020 021 [facility], [address], [facility] [address], [place], [address], 09:57:49 Procedures None record ed. Surgeries None record ed. Imaging None record ed. Medication Orders None record ed. Patient TargetsNo targets recorded. Patient Instructions Encounter Date Encounter Id Patient Instructions Last Modified By Organization Details Last Modified Time 11/28/2019 [id number] To follow up usmaya Doshi at his next appointment, call with any concerns before then [email or web address] Not available 02/04/2020 12:00:45 Reason for Referral Pelvic Floor Therapy Referra l for Male urinary stress incontinence Referring Physician: oMmo Mc, Urology, Encounter Date: 10/24/2020 Results Created Date Observation Date Name Description Value Unit Range Abnormal Flag LastModifiedBy Organization Detail LastModifiedTime 05/01/2020 PSA, serum or plasm a PSA, Total <0.04 ng/ml Not Available [facility] [address], [place], [address], 05/01/2020 10:40:29 02/11/2020 lab* PSA <0.04 normal Not Available Not Available 01/07/2020 12:33:24 01/02/2020 PSA, serum or plasm a PSA, Total <0.04 ng/Ml Not Available [facility] [address], [place], [address], 01/02/2020 09:14:10 10/25/19 21 10/24/2020 PSA, serum or plasm a PSA, Total <0.04n g/mL Not Available [facility] [address], [place], [address], 10/24/2020 10:45:30 11/23/19 20 11/21/2019 CT, pelvi s, w/o contr ast No observ ation record ed. cedric Not Available 11/29/19 17:13:18 Result Notes None recorded. Problems Name Status Onset Date Resolution Date Notes Provider Name and Address Organization Details Recorded Time Carcinoma of prostate Active 11/21/19 20 Caroline kruger [facility] 11/21/2019 10:59:25 Male urinary stress incontinence Active 05/01/19 21 Momo delacruz MD, PHD [address] [place] [address], [phone], [facility] 05/01/2020 10:47:38 Primary erectile dysfunction Active 05/01/19 21 Momo delacruz MD, PHD [address] [place] [address], [phone], [facility] 05/01/2020 10:47:58 Problem Notes None recorded. Procedures Surgical History Date Name Laterality Status Provider Name and Address Organization Details Recorded Time 10/25/19 21 Blood Draw/SHANK CEMENTER HAND/PSA RESULTS completed Momo baez MD, PHD [address] [place] [address], [phone], [facility] 10/24/2020 10:45:26 05/01/19 21 Blood Draw/SHANK CEMENTER HAND/PSA RESULTS completed Momo baez MD, PHD [address] [facility],[address], [place], [address], [facility] 05/01/2020 10:40:25 01/02/20 20 Blood Draw/SHANK CEMENTER HAND/PSA RESULTS completed Janice Ayala [facility] 01/02/2020 09:14:04 11/28/19 20 Choi Catheter Removal completed Caroline Smith [facility] 02/04/2020 12:00:10 Prostatectomy completed Momo baez MD, PHD [address] [facility],[address], [place], [address], [facility] 10/24/2020 10:44:48 colonoscopy completed Monica Awan [facility], [facility] 12/09/2020 10:47:07 Imaging Results Imaging Date Name Status LastModified by Organiz ation Details LastModified Time 11/21/2019 CT, pelvis, w/o contrast completed cedric Information not available 11/29/2019 17:13:18 Procedure Notes None recorded. Medical Equipment None Reported. Allergies Allergen ID Allergen Name Allergen Category Reaction Reaction Severity Criticality Documentation Date Start Date Code Code System Note Provider Name and Address Organization Details Recorded Time 989431 silver medicatio n Not available Not available Not available 11/21/2019 40904 43 RxNorm Caroline Smith [facility] 0 11:09:54 847201 adhesive tape environme nt,medica tion Not available Not available Not available 11/21/2019 Caroline Smith [facility] 0 11:10:01 Medications Name Sig Start Date [...] Updated DateTime 01/02/2020 180.34 cm 39.3 kg/m2 944119.05 g Caroline Rojasyoandy [facility] 01/02/2020 09:09:40 Date Recorded Body height Body mass index (BMI) Body weight Provider Name and Address Organization Details Last Updated DateTime 05/01/2020 180.34 cm 39.3 kg/m2 609647.05 g Momo baez MD, PHD [address] [place] [address] 05/01/2020 10:39:59 Date Recorded Body height Body mass index (BMI) Body weight Provider Name and Address Organization Details Last Updated DateTime 10/24/2020 180.34 cm 39.7 kg/m2 418160.83 g Momo baez MD, PHD [address] [place] [address] 10/24/2020 10:44:13 Date Recorded Body height Body mass index (BMI) Body weight Provider Name and Address Organization Details Last Updated DateTime 11/21/2019 180.34 cm 39.3 kg/m2 269639.05 g Caroline Rojasyoandy [facility] 11/21/2019 11:09:04 Social History Question Answer Notes LastModified by Organizat ion Details LastModified Time Tobacco Smoking Status Never Smoker Caroline kruger [facility] 11/21/2019 11:10:15 What Is Your Level Of [...] Nicotine? No Information not available 10/24/2020 Sex: Unknown Functional Status None recorded. Mental Status None recorded. Family History Relationship Description Onset Age of this Age Resolved Age Notes Father No current problems or disability Mother No current problems or disability Medical History Condition Response Diabetes Y Cancer Y Past Encounters Encounter ID Performer Location Encounter Start Date Encounter Closed Date Diagnosis/Indication Diagnosis SNOMED-CT Code [id number] Momo delacruz MD, PHD [facility] [address] [place] [id number] 11/21/2019 10:45:55 11/21/2019 15:00:28 Malignant tumor of prostate [id number] Caroline Gneiting [facility] [address] [place] [id number] 11/28/2019 09:57:13 02/06/2020 03:54:17 [id number] Momo delacruz MD, PHD [facility] [address] [place] [id number] 01/02/2020 08:46:59 01/02/2020 14:22:16 Malignant tumor of prostate [id number] [id number] Momo delacruz MD, PHD [facility] [address] [place] [id number] 05/01/2020 09:26:51 05/01/2020 12:03:29 Malignant tumor of prostate 401020420 Primary er ectile dysfunction 860105957 [id number] Momo delacruz MD, PHD [facility] [address] [place] [id number] 10/24/2020 10:28:04 10/27/2020 16:45:05 Carcinoma of prostate 453439687 Malignant tumor of prostate 451426147 Primary er ectile dysfunction 972873882 Male urina ry stress incontinence 981128688 Health Concerns Section Related Observation LastModified by Organization Detai ls LastModified Time None Recorded Concern Status LastModified by Organization Details LastModified Time None Recorded Advance Directives Directive None Recorded Payers Encounter Date Sequence Insurance Name Policy Number Policy Archibald Covered Member ID Archibald Member ID Guarantor Name 11/21/2019 1 [facility] [id number] Julien Ridley [id number] Julien Ridley 11/28/2019 1 [facility] [id number] Julien Ridley [id number] Julien Ridley 01/02/2020 1 [facility] [id number] Julien Ridley [id number] Julien Ridley 05/01/2020 1 [facility] [id number] Julien Ridley [id number] Julien Ridley 10/24/2020 1 [facility] [id number] Julien Ridley [id number] Julien Ridley Notes Date Note Type Note Provider Name and Address Organization Details Recorded Time 11/21/2019 text/html HPI Notes: 59M s /p RALP 11/06/19 for [id number] [place] 3+4=7 prostate cancer (0/12 LN, -SMS) Overall doing well. Some drainage umbilical incision. Chronic LE edema worse especially R>L. Some hematuria when having BMs. No fever. Eating ok. Minimal pain. CT Cystogram today: small anastomotic leak PSA (07/27/19): 6.5 CONSTANZA: cT1c, 35g (J Carlos) MRI: none Biopsy (08/30/19): 23g, 3/12 cores (LLM, LMB, LMM [place] 3+4=7 up to 40%) Pre-op ED: 05/09 Momo Holliday MD, PHD [address] [facility],[address], [place], [address], [facility] [place] [facility] 11/21/2019 14:07:42 01/02/2020 text/html HPI Notes: 59M with [id number] [place] 3+4=7 prostate cancer (0/12 LN, -SMS) s/p RALP 11/06/19. Small anastomotic leak, catheter removed 11/28/19. Overall doing well. C/o some leakage with BMs and position changes. Uses multiple depends per day...... LE u/s to eval for dvt last visit was negative PSA Results 07/27/19: 6.5 01/02/20: <0.04 UF: 07/07 EF: / Pre-op EF: / Momo Holliday MD, PHD [address] [place] [address],[address], [address], [facility] 01/02/2020 09:35:54 05/01/2020 text/html HPI Notes: 60M with [id number] [place] 3+4=7 prostate cancer (0/12 LN, -SMS) s/p RALP 11/06/19. Small anastomotic leak, catheter removed 11/28/19. Overall doing well. C/o some leakage with BMs and position changes. Uses 4ppd which is improvement. No problems with incisions. PSA Results 07/27/19: 6.5 01/02/20: <0.04 05/01/20: <0.04 UF: 3/5 EF: 5/5 Pre-op EF: 2/5 Momo Holliday MD, PHD [address] [place] [address],[address], [address], [facility] 05/01/2020 10:48:15 10/24/2020 text/html HPI Notes: 60M with [id number] [place] 3+4=7 prostate cancer (0/12 LN, -SMS) s/p RALP 11/06/19 Overall doing well. C/o some leakage with BMs and position changes and sexual activity. Uses 4ppd still. No problems with incisions. PSA Results 07/27/19: 6.5 01/02/20: <0.04 05/01/20: <0.04 10/24/20: <0.04 UF: 3/5 EF: 5/5 Pre-op EF: 2/5 Momo Holliday MD, PHD [address] [place] [address],[address] [place] [address], [phone], [facility] 10/24/2020 11:30:55
--- OUTSIDE RECORDS SUMMARY | 2023-10-14 07:49 | XMS_ITS | Clinical Summary ---
Author Organization [place] Address [address] [place] [address] Care Team Providers Care Rn Shift Mgr Name Role Phone Munir Sahu MD Primary [...] Advance Directives For more information, please contact: [phone] * Full Code (Latest Code Status on File) Date Activated Date Inactivated Comments 11/06/2019 2:19 PM 11/07/2019 9:06 PM All basic and advanced life-sustaining interventions are performed as appropriate Question Answer Comments Code status determined by: Unable to det ermine; FULL CODE until documents or legal decision maker available Care Teams Rn Shift Mgr Relationship Specialty Start Date End Date Munir Sahu MD PCP - General Family Practice 10/22/19
--- OUTSIDE RECORDS SUMMARY | 2023-10-14 07:49 | XMS_ITS | Referral Summary ---
Author Organization [facility] [facility] Address [address] [place] [address] Care Team Providers Care Information Director Name Role Phone Munir Sahu MD Primary [...] Advance Directives For more information, please contact: [phone] * Full Code (Latest Code Status on File) Date Activated Date Inactivated Comments 11/06/2019 2:19 PM 11/07/2019 9:06 PM All basic and advanced life-sustaining interventions are performed as appropriate Question Answer Comments Code status determined by: Unable to det ermine; FULL CODE until documents or legal decision maker available Care Teams Information Director Relationship Specialty Start Date End Date Munir Sahu MD PCP - General Family Practice 10/22/19
--- OUTSIDE RECORDS SUMMARY | 2023-10-14 07:50 | XMS_ITS | Clinical Summary ---
Author Organization [facility] s & [facility] Address [place], [place] [address] Care Team Providers Care Psychology Associate Name Role Phone Munir Sahu MD Primary Care Provider + [facility] Care, [place] Unavailable [phone] Allergies Active Allergy Reactions Criticality Noted Date [...] once daily. 30 Tablet 09/28/2023 Active Insulin [place], Disposable, (Susana Pen Needle) 32 gauge x [...] Encounters Date Type Department Care Team Description 10/12/2023 10:00 AM CDT Home Care Visit [address] [phone] Elvira Reyes RN SN - HOME VISIT 10/10/2023 9:45 AM CDT Home Care Visit [address] [phone] Elvira Reyes RN SN - HOME VISIT 10/07/2023 8:00 AM CDT Home Care Visit [address] [phone] Elvira Reyes RN SN - HOME VISIT 10/05/2023 12:30 PM CDT Home Care Visit [address] [phone] Elvira Reyes RN SN - HOME VISIT 10/04/2023 2:00 PM CDT Procedure Only [facility] [address] [place] [address] Device Check (IN CLINIC [employer] LEADLESS... 10/04/2023 Travel 10/03/2023 7:00 AM CDT Home Care Visit [address] [address] Esteves, Lexi, RN SN - HOME VISIT 10/03/2023 1:00 AM CDT Home Care Visit [facility] [address] [place] [address] Ailyn Varghese, RN SN - WOUND/OSTOMY CHART CONSULT 10/03/2023 Telephone [facility] [address] [place] [address] Ailyn Varghese sap pp consultant (Vascular and or Wound clinic referral is needed. Supplies with [employer]) 09/30/2023 9:30 AM CDT Home Care Visit [facility] [address] [place] [address] Lexi Esteves RN SN - OASIS START OF CARE 09/30/2023 Plan of Care Documentation [facility] [address] [place] [address] 09/28/2023 Orders Only [facility] [address] [facility] [address] [place] [address] Alejandra Lau PA <No scans attached> 09/23/2023 2:03 PM CDT Anesthesia Event [facility] [address] [place] [address] Marylou De Anda MD Ludwig, Margaret J, VERO 09/23/2023 12:45 PM CDT - 09/23/2023 8:02 PM CDT Surgery [address] [address] Gregorio Leal MD CORONARY ARTERY BYPASS X 3 WITH RADIAL HARVEST, AND TEMP VENTRICULAR PACING WIRES 09/18/2023 2:58 AM CDT - 09/28/2023 2:30 PM CDT Hospital Encounter [facility] [address] [place] [address] s, U Hospitalist Wendy Rodriguez DO Kroschel, MD Cristal Gallardo, Munir Muhammad MD S/p 3V CABG (SHER-LAD, LISA-ramus, radial-OM), 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 (Primary Dx); Ulcer of left lower extremity with fat layer exposed (HC) [L97.922]; NSTEMI (non-ST elevated myocardial infarction) (HC); CAD, multiple vessel; Type 2 diabetes mellitus with complication (HC); Essential hypertension Discharge Disposition: Home Health 09/17/2023 7:43 PM CDT - 09/18/2023 1:46 AM CDT Emergency [facility] [address] [place] [address] Pritesh Boyer MD NSTEMI (non-ST elevated myocardial infarction) (HC) (Primary Dx) Discharge Disposition: Health Care Facility Not On List 09/17/2023 Telephone [facility] [address] [place], [place] [phone] Guzman Lovelace MD 09/17/2023 Travel 09/05/2023 Lab Requisition [facility] [phone] Unknown, Doctor from Last 3 Months Social [...] Sign Reading Time Taken Comments Blood Pressure 96/60 10/12/2023 10:22 AM CDT Pulse 76 10/12/2023 10:22 AM CDT Temperature 36.2 ??C (97.1 ??F) 10/12/2023 1 0:22 AM CDT Respiratory Rate 18 10/12/2023 10:2 2 AM CDT Oxygen Saturation 95% 10/12/2023 10: 22 AM CDT Inhaled Oxygen Concentration - - Weight 131.2 kg (289 lb 3.2 oz) 024 10:22 AM CDT Height 177.8 cm (5' 10) 09/30/2023 10: 54 AM CDT Body Mass Index 41.5 09/30/2023 10:54 AM CDT Plan of Treatment Upcoming Encounters Date Type Department Care Team (Late st Contact Info) Description 10/17/2023 5:00 AM CDT Home Care Visit [address] [phone] Isa Cintron RN 10/19/2023 4:00 AM CDT Home Care Visit [place] [phone] [place] [phone] Elvira Reyes RN [address] [address] 10/20/2023 1:00 PM CDT Office Visit [facility] [address] [facility] [address] [place] [address] Jen Greenberg NP [address] [facility] [address] [place] [address] 10/21/2023 4:00 AM CDT Home Care Visit [place] [address] [place] [phone] Elvira Reyes RN [address] [address] 10/24/2023 4:00 AM CDT Home Care Visit [place] [address] [place] [phone] Elvira Reyes RN [address] [place] [address] 10/24/2023 5:00 AM CDT Home Care Visit [facility] [address] [place] [address] Ailyn Varghese, RN [address] [place] [address] 10/26/2023 4:00 AM CDT Home Care Visit [facility] [address] [place] [phone] Elvira Reyes RN [address], [place] [address] 10/28/2023 4:00 AM CDT Home Care Visit [facility] [address] [place] [phone] Elvira Reyes RN [address], [place] [address] 10/28/2023 5:00 AM CDT Home Care Visit [facility] [address] [place] [phone] Ailyn Varghese, RN [address] [place] [address] 10/28/2023 8:00 AM CDT Appointment [facility] [address] [place] [address] Kamran Li MD [address] [place] [address] 10/31/2023 Procedure Only [facility] [address] [facility] [address] [place] [address] 10/31/2023 4:00 AM CDT Home Care Visit [facility] [address] [place] [phone] Elvira Reyes, RN [address] [place] [address] 11/02/2023 4:00 AM CDT Home Care Visit [address] [place] [address] Elvira Reyes, RN [address] [place] [address] 11/04/2023 4:00 AM CDT Home Care Visit [address] [place] [address] Elvira Reyes, RN [address] [place] [address] 11/07/2023 4:00 AM CDT Home Care Visit [address] [place] [address] Elvira Reyes, RN [address] [place] [address] 11/09/2023 4:00 AM CDT Home Care Visit [address] [place] [address] Elvira Reyes, RN [address] [place] [address] 11/11/2023 4:00 AM CDT Home Care Visit [address] [place] [address] Elvira Reyes, RN [address] [place] [address] 11/14/2023 4:00 AM CDT Home Care Visit [place] [address] [place] [address], [place] [address] Elvira Reyes, RN [address] [place] [address] 11/16/2023 4:00 AM CDT Home Care Visit [place] [phone] [place] [address], [place] [address] Elvira Reyes, RN [address] [place] [address] 11/18/2023 4:00 AM CDT Home Care Visit [place] [phone] [place] [address], [place] [address] Elvira Reyes, RN [address] [place] [address] 11/21/2023 4:00 AM CDT Home Care Visit [place] [phone] [place] [address], [place] [address] Elvira Reyes, RN [address] [place] [address] 11/23/2023 4:00 AM CDT Home Care Visit [place] [phone] [place] [address], [place] [phone] Elvira Reyes, RN [address] [place] [address] 11/25/2023 4:00 AM CDT Home Care Visit [place] [phone] [place] [address], [place] [address] Elvira Reyes, RN [address] [place] [address] 11/28/2023 4:00 AM CDT Appointment [facility] [employer] [facility] [address] [facility] [place] [phone] Elvira Reyes RN [address] [place] [address] Health Maintenance Due Date Last Done Comments [...] 2011 COVID-19 vaccine series ( season) 2022 02/06/2021, 07/10/2020, 06/12/2020 Influenza for [...] THROMBIN TIME STAT 09/23/2023 8:05 PM CDT [facility] CATH INFUSION PR70 Routine 09/23/19 4:34 PM CDT [facility] KIT PR5 Routine 09/23/2023 4:34 PM CDT C AN INTRODUCER 2 LUMEN PERFORMABLE Routine 09/23/2023 4:34 PM CDT [facility] DRSG PR1 Routine 09/23/2023 4:34 PM CDT [facility] DRSG PR5 Routine 09/23/2023 4:34 PM CDT [facility] TUBING PR5 Routine 09/23/2023 4:34 PM CDT [facility] KIT MONITORING PR5 Routine 09/23/19 4:34 PM CDT [facility] ADPTR PR1 Routine 09/23/2023 4:34 PM CDT [facility] CATH INFUSION PR30 Routine 09/23/19 4:34 PM CDT [facility] TUBING PR1 Routine [...] Case Notes [facility] T/FPERFUSION-Confirmed w/Shayna for 1315 #[id number] EK 6/20OR STAFF BYPASS CORONARY ARTERY 01 2023 1:33 PM CDT Case Notes [facility] T/FPERFUSION-Confirmed w/Shayna for 1315 #[id number] EK /20OR STAFF GLUCOSE METER Timed 09/23/2023 12:59 PM [...] of51 resultswithin the time period is included. [facility] GLUCOSE METER 204(H) 65 - 100 mg/dL 09/28/2023 12:10 PM CDT [facility] Blood BLOOD SPECIMEN / Unknown 09/28/2023 12:07 PM CDT 09/28/2023 12:10 PM CDT Munir Bee MD CHEMISTRY [facility] S[address]OUT [place] [phone] [place] [address] * EKG 12 LEAD (09/28/2023 10:41 AM CDT) Only the most recent of7 resultswithin the time period is included. [facility] Interpretation Sinus rhythm with 1st degree A-V [...] NOW QTc 412 ms BEYOND NOW P [place] 45 degrees BEYOND NOW R [place] 50 degrees BEYOND NOW T [place] 53 degrees BEYOND NOW 09/28/2023 10:4 1 AM CDT 09/29/2023 8:23 AM CDT Sandhya FAJARDO EKG ORD BEYOND NOW [place], [place] * SCAN-CARDIAC STRIP (09/28/2023 8:00 AM CDT) Scanner OTHER * PLATELET COUNT (09/28/2023 4:53 AM CDT) Only the most recent of10 resultswithin the time period is included. PLATELET COUNT 239 140 - 440 thou/cu mm 09/28/2023 5:32 AM CDT [facility] MPV 9.2 6.5 - 11.0 fL 09/28/2023 5:32 AM CDT [facility] Blood BLOOD SPECIMEN / Unknown Venipuncture / Unknown 09/28/2023 4:53 AM CDT 09/28/2023 5:21 AM CDT Sandhya FAJARDO HEMATOLOGY Performing Organization Address City/[facility] Co de Phone Number [facility] SENDOUT INTERNAL ZIP [phone] [place] [address] * WHITE BLOOD COUNT (09/28/2023 4:53 AM CDT) Only the most recent of4 resultswithin the time period is included. WHITE BLOOD COUNT 7.3 4.5 - 11.0 thou/cu mm 09/28/2023 5:32 AM CDT [facility] NRBC 0.0 % 09/28/2023 5:32 AM CDT [facility] ABS NRBC 0.0 thou /cu mm 09/28/2023 5:32 AM CDT [facility] Blood BLOOD SPECIMEN / Unknown Venipuncture / Unknown 09/28/2023 4:53 AM CDT 09/28/2023 5:21 AM CDT Sandhya FAJARDO HEMATOLOGY Performing Organization Address [facility] [place] [facility]/ZIP Co de Phone Number [facility] SENDOUT INTERNAL ZIP [phone] [place] [address] * (ABNORMAL) HEMOGLOBIN (09/28/2023 4:53 AM CDT) Only the most recent of10 resultswithin the time period is included. HEMOGLOBIN 11.6(L) 13.5 - 17.5 g/dL 09/28/2023 5:32 AM CDT [facility] MCV 91 80 - 100 fL 09/28/2023 5:32 AM CDT [facility] Blood BLOOD SPECIMEN / Unknown Venipuncture / Unknown 09/28/2023 4:53 AM CDT 09/28/2023 5:21 AM CDT Sandhya FAJARDO HEMATOLOGY [facility] SENDOUT [place] [phone] [place] [address] * (ABNORMAL) BASIC METABOLIC PANEL (09/28/2023 4:53 AM CDT) Only the most recent of11 resultswithin the time period is included. SODIUM 136 136 - 145 mmol/L 09/28/2023 6:02 AM [facility] POTASSIUM 4.2 3.5 - 5.1 mmol/L 09/28/2023 6:02 AM [facility] CHLORIDE 97(L) 98 - 107 mmol/L 09/28/2023 6:02 AM [facility] CO2,TOTAL 30(H) 22 - 29 mmol/L 09/28/2023 6:02 AM [facility] ANION GAP 9 5 - 18 09/28/2023 6:02 AM [facility] GLUCOSE 139(H) 70 - 99 mg/dL 09/28/2023 6:02 AM [facility] CALCIUM 8.8 8.8 - 10.2 mg/dL 09/28/2023 6:02 AM [facility] BUN 19 8 - 23 mg/dL 09/28/2023 6:02 AM [facility] CREATININE 0.96 0.70 - 1.20 mg/dL 09/28/2023 6:02 AM [facility] BUN/CREAT RATIO 20 10 - 20 6:02 AM [facility] eGFR 89(L) >90 mL/min/1.7 3m2 09/28/2023 6:02 AM [facility] Comment:As of 2021, eG FR is calculated by the CKD-EPI creatinine equation without race adjustment. ??eGFR can be influenced by muscle mass, exercise, and diet. ??The reported eGFR is an estimation only and is only applicable if the renal function is stable. Blood BLOOD SPECIMEN / Unknown Venipuncture / Unknown 09/28/2023 4:53 AM CDT 09/28/2023 5:21 AM CDT Sandhya FAJARDO CHEMISTRY [facility] SENDOUT INTERNAL [address] [phone] [place] [address] * SCAN-CARDIAC STRIP (09/27/2023 7:43 PM CDT) Scanner OTHER * ECHO TTE LIMITED W CONTRAST W COLOR W DOPPLER (09/27/2023 12:26 PM CDT) EJECTION FRACTION 55% PROSOLV Anatomical Region Laterality Modality Ultrasound 09/27/2023 11:3 8 AM CDT Narrative 09/27/2023 12:43 PM CDT [address] [address] Main: [email or web address] ? Transthoracic Echo Report JOSE GUADALUPE RIDLEY Federico ID: [id number] Age: 63 : 1960 Ordering Provider: REMI CHONG Exam Date: 09/27/2023 11:38 Gender: M Senior Net Programmer: [facility] Height: 68 in BSA: 2.46 [...] ?4.93 mmHg Rusty Major MD (Electronically Signed) [facility] Accredited Site Final Date: 27 September 2023 12:41 ICD-10 Codes: Procedure Note Rusty Major MD - 09/27/2023 [place] [address] Main: [email or web address] Transthoracic Echo Report JOSE GUADALUPE RIDLEY Federico ID: [id number] Age: 63 : 1960 Ordering Provider:REMI CHONG Exam Date: 09/27/2023 11:38 Gender: M Senior Net Programmer: [facility] Height: 68 in BSA: 2.46 [...] 4.93 mmHg Rusty Major MD (Electronically Signed) [facility] Accredited Site Final Date: 27 September 2023 12:41 ICD-10 Codes: Remi Chong [employer] ECHO ORD * POTASSIUM (09/27/2023 12:12 PM CDT) Only the most recent of4 resultswithin the time period is included. POTASSIUM 4.6 3.5 - 5.1 mmol/L 09/27/2023 12:45 PM CDT [facility] Blood BLOOD SPECIMEN / Unknown Butterfly / Unknown 09/27/2023 12:12 PM CDT 09/27/2023 12:28 PM CDT Gregorio Elizabeth MD CHEMISTRY [facility] SENDOUT INTERNAL [address] [phone] [place] [address] * SCAN-CARDIAC STRIP (09/27/2023 8:00 AM CDT) [...] CHEST 2 VIEWS PA AND LATERAL LOCATION: [facility] DATE: 09/27/2023 INDICATION: [...] CHEST 2 VIEWS PA AND LATERAL LOCATION: [facility] DATE: 09/27/2023 INDICATION: [...] Juanito Romeo MD ? 09/26/2023 ??5:44 PM [facility] Electrophysiology Laboratory Leadless Pacemaker (AV Micra) [...] procedure. Attending Signature: Juanito Romeo M.D. Cardiac Manager Placement [facility] Manan Steele NP BENEFITS ASSISTANT ORD * EP PPM (09/26/2023 4:54 PM CDT) Anatomical Region Laterality Modality Other 09/26/2023 4:54 PM CDT Manan Yingchuk [employer] CV IMAGING * (ABNORMAL) CBC with Platelets no Differential (09/26/2023 8:57 AM CDT) Only the most recent of3 resultswithin the time period is included. WHITE BLOOD COUNT 9.6 4.5 - 11.0 thou/cu mm 09/26/2023 9:12 AM CDT [facility] RED BLOOD COUNT 4.29(L) 4.30 - 5.90 mil/cu mm 09/26/2023 9:12 AM CDT [facility] HEMOGLOBIN 12.9(L) 13.5 - 17.5 g/dL 09/26/2023 9:12 AM CDT [facility] HEMATOCRIT 37.7 37.0 - 53.0 % 09/26/2023 9:12 AM CDT [facility] MCV 88 80 - 100 fL 09/26/2023 9:12 AM CDT [facility] MCH 30.1 26.0 - 34.0 pg 09/26/2023 9:12 AM CDT [facility] MCHC 34.2 32.0 - 36.0 g/dL 09/26/2023 9:12 AM CDT [facility] RDW 13.7 11.5 - 15.5 % 09/26/2023 9:12 AM CDT [facility] PLATELET COUNT 201 140 - 440 thou/cu mm 09/26/2023 9:12 AM CDT [facility] MPV 9.2 6.5 - 11.0 fL 09/26/2023 9:12 AM CDT [facility] NRBC 0.0 % 09/26/2023 9:12 AM CDT [facility] ABS NRBC 0.0 thou /cu mm 09/26/2023 9:12 AM CDT [facility] Blood BLOOD SPECIMEN / Unknown Venipuncture / Unknown 09/26/2023 8:57 AM CDT 09/26/2023 9:03 AM CDT Manan Steele NP HEMATOLOGY [facility] SENDOUT INTERNAL ZIP [phone] [place] [address] * SCAN-CARDIAC STRIP (09/26/2023 8:36 AM CDT) Scanner OTHER * (ABNORMAL) Protime-INR (09/26/2023 5:26 AM CDT) Only the most recent of7 resultswithin the time period is included. INR 1.2 <1.3 09/26/2023 5:38 AM CDT [facility] PROTIME 13.3(H) 10.3 - 12.3 sec 09/26/2023 5:38 AM CDT [facility] Blood BLOOD SPECIMEN / Unknown Venipuncture / Unknown 09/26/2023 5:26 AM CDT 09/26/2023 5:30 AM CDT Narrative [facility] - 09/26/2023 5:38 AM CDT ?Therapeutic [...] is on UFH. Gregorio Elizabeth MD HEMATOLOGY [facility] SENDOUT INTERNAL [facility] [phone] [place] [address] * SCAN-PACER (09/26/2023 12:00 AM CDT) Narrative 09/26/2023 12:00 AM CDT Ordered by an unspecified provider. Other Clinical Staff OTHER * SCAN-CARDIAC STRIP (09/25/2023 8:00 AM CDT) Scanner OTHER * MAGNESIUM (09/25/2023 5:07 AM CDT) Only the most recent of8 resultswithin the time period is included. MAGNESIUM 2.1 1.6 - 2.4 mg/dL 09/25/2023 5:34 AM CDT [facility] Blood BLOOD SPECIMEN / Unknown Non-Lab Venipuncture / Unknown 09/25/2023 5:07 AM CDT 09/25/2023 5:15 AM CDT Gregorio Elizabeth MD CHEMISTRY [facility] SENDOUT INTERNAL ZIP [phone] [place] [address] * SCAN-CARDIAC STRIP (09/24/2023 11:32 PM CDT) [...] EXAM: XR CHEST 1 VIEW PORTABLE LOCATION: [facility] DATE: 09/24/2023 INDICATION: [...] EXAM: XR CHEST 1 VIEW PORTABLE LOCATION: [facility] DATE: 09/24/2023 INDICATION: [...] (ABNORMAL) Calcium Ionized (09/24/2023 4:20 AM CDT) Pathologist [facility] CALCIUM,IONIZE D 1.10(L) 1.15 - 1.27 mmol/L 09/24/2023 4:35 AM CDT [facility] Blood BLOOD SPECIMEN / Unknown Non-Lab Venipuncture / Unknown 09/24/2023 4:20 AM CDT 09/24/2023 4:32 AM CDT Gregorio Elizabeth MD CHEMISTRY [facility] SENDOUT INTERNAL ZIP [address] [place] [address] * (ABNORMAL) Arterial Blood Gas (09/24/2023 12:16 AM CDT) PH, ARTERIAL 7.33(L) 7.35 - 7.45 09/24/2023 12:25 AM CDT [facility] PCO2, ARTERIAL 52(H) 35 - 48 mmHg 09/24/2023 12:25 AM CDT [facility] PO2, ARTERIAL 164(H) 83 - 108 mmHg 09/24/2023 12:25 AM CDT [facility] HCO3, ARTERIAL 27 21 - 28 mmol/L 09/24/2023 12:25 AM CDT [facility] BASE EXCESS, ARTERIAL 0.6 -2.0 - 3.0 09/24/2023 12:25 AM CDT [facility] O2 SATURATION, ARTERIAL 100(H) 94 - 98 % 09/24/2023 12:25 AM CDT [facility] INSPIRED O2 95 09/24/2023 12:25 AM CDT [facility] Comment:Unit of Measure: Lit ers (L) if <=20; Percent (%) if >20 PATIENT TEMPERATURE 36.9 Degrees C 09/24/2023 12:25 AM CDT [facility] Blood ARTERIAL BLOOD SPECIMEN / Unknown Arterial / Unknown 09/24/2023 12:16 AM CDT 09/24/2023 12:21 AM CDT Gregorio Elizabeth MD CHEMISTRY Performing Organization Address City/[facility]/ZIP Co de Phone Number [facility] SENDOUT INTERNAL ZIP [phone] [place] [address] * SCAN-CARDIAC STRIP (09/24/2023 12:00 AM CDT) Scanner OTHER * Thrombin Time - Immediate Postop (09/23/2023 9:45 PM CDT) Only the most recent of2 resultswithin the time period is included. THROMBIN TIME 15 <16 sec 09/23/2023 10:37 PM CDT [facility] Blood BLOOD SPECIMEN / Unknown Non-Lab Venipuncture / Unknown 09/23/2023 9:45 PM CDT 09/23/2023 9:55 PM CDT Gregorio Elizabeth MD HEMATOLOGY Performing Organization Address City/[facility]/ZIP Co de Phone Number [facility] SENDOUT INTERNAL ZIP [phone] [place] [address] * (ABNORMAL) APTT - Immediate Postop (09/23/2023 9:45 PM CDT) Only the most recent of15 resultswithin the time period is included. APTT 23(L) 28 - 36 sec 09/23/2023 10:37 PM CDT [facility] Blood BLOOD SPECIMEN / Unknown Non-Lab Venipuncture / Unknown 09/23/2023 9:45 PM CDT 09/23/2023 9:55 PM CDT Narrative [facility] - 09/23/2023 10:37 PM CDT Therapeutic Range: 57-87 seconds Gregorio Elizabeth MD HEMATOLOGY [facility] SENDOUT INTERNAL ZIP [phone] [place] [address] * (ABNORMAL) Fibrinogen, Quantitative - Immediate Postop (09/23/2023 9:45 PM CDT) Only the most recent of2 resultswithin the time period is included. Pathologist [facility] FIBRINOGEN,MOHIT NTITATIVE 453(H) 193 - 401 mg/dL 09/23/2023 10:37 PM CDT [facility] Blood BLOOD SPECIMEN / Unknown Non-Lab Venipuncture / Unknown 09/23/2023 9:45 PM CDT 09/23/2023 9:55 PM CDT Gregorio Elizabeth MD HEMATOLOGY [facility] SENDOUT INTERNAL ZIP [address] [address] [place] [address] * (ABNORMAL) CBC WITH AUTO DIFFERENTIAL (09/23/2023 8:05 PM CDT) Only the most recent of2 resultswithin the time period is included. Pathologist [facility] WHITE BLOOD COUNT 7.2 4.5 - 11.0 thou/cu mm 09/23/2023 8:18 PM CDT [facility] RED BLOOD COUNT 3.61(L) 4.30 - 5.90 mil/cu mm 09/23/2023 8:18 PM CDT [facility] HEMOGLOBIN 11.0(L) 13.5 - 17.5 g/dL 09/23/2023 8:18 PM CDT [facility] HEMATOCRIT 31.7(L) 37.0 - 53.0 % 09/23/2023 8:18 PM CDT [facility] MCV 88 80 - 100 fL 09/23/2023 8:18 PM CDT [facility] MCH 30.5 26.0 - 34.0 pg 09/23/2023 8:18 PM [facility] MCHC 34.7 32.0 - 36.0 g/dL 09/23/2023 8:18 PM [facility] RDW 13.2 11.5 - 15.5 % 09/23/2023 8:18 PM [facility] PLATELET COUNT 123(L) 140 - 440 thou/cu mm 09/23/2023 8:18 PM [facility] MPV 10.0 6.5 - 11.0 fL 09/23/2023 8:18 PM [facility] NRBC 0.0 % 09/23/2023 8:18 PM [facility] ABS NRBC 0.0 thou /cu mm 09/23/2023 8:18 PM [facility] % NEUT 90.3 % 09/23/2023 8:18 PM [facility] % LYMPH 6.2 % 09/23/2023 8:18 PM [facility] % MONO 1.5 % 09/23/2023 8:18 PM [facility] % EOS 0.8 % 09/23/2023 8:18 PM [facility] % BASO 0.6 % 09/23/2023 8:18 PM [facility] % IMMATURE GRAN (METAS,MYELOS,MS OS) 0.6 % 09/23/2023 8:18 PM [facility] ABSOLUTE NEUTROPHILS 6.5 1.7 - 7.0 thou/cu mm 09/23/2023 8:18 PM [facility] ABSOLUTE LYMPHOCYTES 0.5(L) 0.9 - 2.9 thou/cu mm 09/23/2023 8:18 PM [facility] ABSOLUTE MONOCYTES 0.1 <0.9 thou/cu mm 09/23/2023 8:18 PM [facility] ABSOLUTE EOSINOPHILS 0.1 <0.5 thou/cu mm 09/23/2023 8:18 PM [facility] ABSOLUTE BASOPHILS 0.0 <0.3 thou/cu mm 09/23/2023 8:18 PM [facility] ABSOLUTE IMMATURE GRANULOCYTES(MET ,MYELOS,PROS) 0.0 <0.3 thou/cu mm 09/23/2023 8:18 PM [facility] Blood BLOOD SPECIMEN / Unknown Non-Lab Venipuncture / Unknown 09/23/2023 8:05 PM CDT 09/23/2023 8:13 PM CDT [facility] SENDOUT [place] [address] [phone] [place] [address] * (ABNORMAL) Cardiac Thromboelastography (09/23/2023 8:05 PM CDT) Only the most recent of2 resultswithin the time period is included. DESTINI REASON Diffuse Cardiac Bleeding 09/23/2023 10:17 PM CDT [facility] INTEM CT 212(H) 122 - 208 s 09/23/2023 10:17 PM CDT [facility] INTEM CFT 71 45 - 110 s 09/23/2023 10:17 PM CDT [facility] INTEM ALPHA 75 70 - 81 ?? 09/23/2023 10:17 PM CDT [facility] INTEM A10 57 46 - 67 mm 09/23/2023 10:17 PM CDT [facility] INTEM A20 63 51 - 72 mm 09/23/2023 10:17 PM CDT [facility] INTEM MCF 64 51 - 72 mm 09/23/2023 10:17 PM CDT [facility] INTEM ML 7 % 09/23/2023 10:17 PM CDT [facility] INTEM LI30 99 % 09/23/2023 10:17 PM CDT [facility] EXTEM CT 108(H) 43 - 82 s 09/23/2023 10:17 PM CDT [facility] EXTEM CFT 81 48 - 127 s 09/23/2023 10:17 PM CDT [facility] EXTEM ALPHA 74 65 - 80 ?? 09/23/2023 10:17 PM CDT [facility] EXTEM A10 60 46 - 67 mm 09/23/2023 10:17 PM CDT [facility] EXTEM A20 66 50 - 70 mm 09/23/2023 10:17 PM CDT [facility] EXTEM MCF 66 52 - 70 mm 09/23/2023 10:17 PM CDT [facility] EXTEM ML 7 % 09/23/2023 10:17 PM CDT [facility] EXTEM LI30 100 % 09/23/2023 10:17 PM CDT [facility] FIBTEM CT 116 s 09/23/2023 10:17 PM CDT [facility] FIBTEM CFT 593 s 09/23/2023 10:17 PM CDT [facility] FIBTEM ALPHA 67 ?? 09/23/2023 10:17 PM CDT [facility] FIBTEM A10 20 7 - 24 mm 09/23/2023 10:17 PM CDT [facility] FIBTEM A20 22 7 - 24 mm 09/23/2023 10:17 PM CDT [facility] FIBTEM MCF 23 7 - 24 mm 09/23/2023 10:17 PM CDT [facility] FIBTEM ML 0 % 09/23/2023 10:17 PM CDT [facility] FIBTEM LI30 100 % 09/23/2023 10:17 PM CDT [facility] HEPTEM CT 248(H) 122 - 208 s 09/23/2023 10:17 PM CDT [facility] HEPTEM CFT 83 45 - 110 s 09/23/2023 10:17 PM CDT [facility] HEPTEM ALPHA 73 70 - 81 ?? 09/23/2023 10:17 PM CDT [facility] HEPTEM A10 51 mm 09/23/2023 10:17 PM CDT [facility] HEPTEM A20 53 51 - 72 mm 09/23/2023 10:17 PM CDT [facility] HEPTEM MCF 54 51 - 72 mm 09/23/2023 10:17 PM CDT [facility] HEPTEM ML 10 % 09/23/2023 10:17 PM CDT [facility] Blood BLOOD SPECIMEN / Unknown Non-Lab Venipuncture / Unknown 09/23/2023 8:05 PM CDT 09/23/2023 8:13 PM CDT [employer] [facility] SENDOUT [place] [address] [address] [place] [address] * CVC TRIPLE LUMEN, HCHG STOPCOCK PR5, [...] ??Comment: Supplemental O2: supplemental oxygen. ??Comment:. Vessel Boom Master Additional supplies used to locate vessel: no Needle Catheter size: 20 G. ??Comment:. Catheter length: other. ??Comment: Events: no complications. Marylou De Anda MD ANESTHESIA PX NOTE ORDERABLES * ZACHARY (09/23/2023 2:54 PM CDT) Narrative Marylou De Anda MD - 09/23/2023 2:54 PM CDT Marylou [...] . Video documentation of the exam on [employer] PRECPB EXAM The ZACHARY probe was [...] exam unchanged from pre-CPB. Images saved to civil process server. Teeth and oropharynx unchanged from pre-op. Probe [...] >90 mL/min/1.7 3m2 09/22/2023 3:42 PM CDT [facility] Comment:As of 2021, eG FR is calculated by the CKD-EPI creatinine equation without race adjustment. ??eGFR can be influenced by muscle mass, exercise, and diet. ??The reported eGFR is an estimation only and is only applicable if the renal function is stable. CREATININE 1.13 0.70 - 1.20 mg/dL 09/22/2023 3:42 PM CDT [facility] Blood BLOOD SPECIMEN / Unknown Butterfly / Unknown 09/22/2023 3:12 PM CDT 09/22/2023 3:16 PM CDT Remi Chong NP CHEMISTRY [facility] SENDOUT [id number] [place] [address] * RED BLOOD CELLS EA UNIT (09/22/2023 9:35 AM CDT) Only the most recent of2 resultswithin the time period is included. CROSSMATCH Compatible Compatible [facility] BLOOD BANK PRODUCT BLOOD TYPE O Rh Negative [facility] BLOOD BANK PRODUCT ID NUMBER [id number] [facility] B[facility] PRODUCT STATUS /Relea sed [facility] BLOOD BANK PRODUCT DESCRIPTION RBC -1 LR [facility] BLOOD BANK PRODUCT CODE [id number] [facility] BLOOD BANK Remi Chong NP BLOOD BANK Performing Organization Address [facility]/ZIP Co de Phone Number [facility] BLOOD BANK [address] [place] [id number] * EXTRA TUBE LAVENDER (09/22/2023 9:34 AM CDT) Blood BLOOD SPECIMEN / Unknown Extra Tube / Unknown 09/22/2023 9:34 AM CDT 09/22/2023 10:58 AM CDT Doctor Unknown LABORATORY [facility] SENDOUT INTERNAL ZIP [phone] [place] [address] * RBC W TYPE AND SCREEN (09/22/2023 9:34 AM CDT) ABORH O Rh Negative 09/22/2023 11:35 AM CDT [facility] BLOOD BANK ANTIBODY SCREEN Negative Negative 09/22/2023 11:35 AM CDT [facility] SPECIMEN EXPIRATION DATE/TIME 09/25/23 23:59 09/22/2023 11:35 AM CDT [facility] Blood BLOOD SPECIMEN / Unknown Venipuncture / Unknown 09/22/2023 9:34 AM CDT 09/22/2023 10:49 AM CDT Remi Chong NP BLOOD BANK Performing Organization Address [facility] Co de Phone Number [facility] BLOOD BANK [address] [place] [address] * SCAN-CARDIAC STRIP (09/22/2023 8:13 AM CDT) Scanner OTHER * HEMATOCRIT (09/22/2023 4:55 AM CDT) Only the most recent of4 resultswithin the time period is included. HEMATOCRIT 45.1 37.0 - 53.0 % 09/22/2023 5:21 AM CDT [facility] Blood BLOOD SPECIMEN / Unknown Venipuncture / Unknown 09/22/2023 4:55 AM CDT 09/22/2023 5:18 AM CDT Narrative [facility] - 09/22/2023 5:21 AM CDT Every morning while on IV heparin. Every morning while on IV heparin. Necessary every morning while on IV heparin. Wendy King DO HEMATOLOGY Performing Organization Address [facility]/ZIP Co de Phone Number [facility] SENDOUT INTERNAL ZIP [phone] [place] [address] * SCAN-CARDIAC STRIP (09/22/2023 1:22 AM CDT) [...] CDT 1. ?Cholelithiasis. 2. ?Please refer to plastic fabricator's dictation for the cardiac CT report. Narrative 09/22/2023 3:42 PM CDT Results are automatically released to your GVISP 1) account once available, in compliance with federal regulations. ??This means that you may see your results before your provider has had a chance to review them. ??Please allow 2-3 business days for your provider to comment on the results. CT ANGIOGRAM OF THE THORACIC AORTA, 09/20/2023 INDICATION: Pre-coronary artery bypass grafting. CONCLUSIONS: This is a dual read study - please review [facility] over-read below for incidental non cardiac [...] cc/sec, was performed on a ??[employer] SOMATOM Sicubo CT scanner. The imaging protocol was individualized to minimize radiation exposure. The following ECG-gated acquisition protocol was used: High pitch prospective. ??Pulse range 300-300. Tube potential: 120 kV. Tube current: 5004 mAs. Total DLP: 1158 mGy*cm; mSv: 16.2; CTDI: 54.3. Image post processing was performed on a [employer] Workstation. Images were reconstructed at a slice [...] for incidental non-cardiac findings. Monique Finn MD [facility] AB/car For Patients: As a result of the 21st Century Cures Act, medical imaging exams and procedure reports are released immediately into your electronic medical record. You may view this report before your referring provider. If you have questions, please contact your health care provider. EXAM: OVERREAD: DETAILED [facility] EXTRACARDIAC OVERREAD OF CARDIAC CT LOCATION: [facility] DATE: 09/20/2023 INDICATION: [...] EXAM: US ARTERIAL UPPER EXTREMITY LEFT LOCATION: [facility] DATE: 09/20/2023 INDICATION: [...] EXAM: US ARTERIAL UPPER EXTREMITY LEFT LOCATION: [facility] DATE: 09/20/2023 INDICATION: [...] and fifth digits duringradial artery compression. Remi Luanne Chong NP US * US VEIN MAPPING LOWER EXTREMITY [...] US VEIN MAPPING LOWER EXTREMITY BILATERAL LOCATION: [facility] DATE: 09/20/2023 INDICATION: [...] US VEIN MAPPING LOWER EXTREMITY BILATERAL LOCATION: [facility] DATE: 09/20/2023 INDICATION: [...] Li MD - 09/19/2023 5:59 PM CDT [facility] Cardiac Catheterization Report Name: JOSE GUADALUPE RIDLEY Event Date: 09/19/2023 17:17 Excellian ID #: [id number] JAKE #: [id number] Diagnostic Physician: KAMRAN LI [facility] Primary Copy Machine Operator: RACHID MÉNDEZ Referring Physician: Date: 1960 Gender: [...] < 70 ;Triglycerides < 100 Consent & Jackson Protocol The risks, benefits, and alternatives of the procedure were discussed withthe patient and written informed consent was obtained. Jackson protocol was followed. TIME OUT conducted just prior tostarting procedure confirmed patient identity, site/side, procedure,patient position, and availability of correct equipment and implants (ifapplicable). Staff Name Title KAMRAN LI Diagnostic Copy Machine Operator Rafaela Bailey RN Nurse Dang Ghosh RN [...] min Cumulative Air Kerma: 493 mGy DAP: 01193 mGy/cm2 Contrast: Omnipaque, 50 ml Visipaque 320, [...] healthcare professional providing the sedation ends personal cykjzuuoqtqrsg-[id number] time with the patient. The medications listed above were verbally ordered by me and read back tome as documented above. Refer to the procedure log report for additional case details. electronically signed on 09/19/2023 5:59:16 PM with status of Final Kamran Li MD [address], [place] [address] [place] [address] (p) [phone](f) Quentin Aiken MD CV IMAGING * ECHO TTE COMPLETE W CONTRAST (09/19/2023 10:48 AM CDT) EJECTION FRACTION 45-50% PROSOLV Anatomical Region Laterality Modality Ultrasound 09/19/2023 10:1 2 AM CDT Narrative 09/19/2023 11:44 AM CDT [employer] [place] [address] Main: [email or web address] ? 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 BP: 141 / 82 Weight: 318 lbs BMI: 44.4 kg/m?? HR: 85 Location: Inpatient (Portable) Rhythm: Normal Sinus Rhythm Procedure Components: 2D imaging with contrast, Color Doppler, Spectral Doppler Indications: Chest pain chest pressure chest tightening Technical Quality: Fair Contrast: Definity Constrast Dose (ml): 0.3 [facility]#: [id number] Final Conclusion 1. Technically challenging echocardiogram. 2. 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 BP: 141 / 82 Weight: 318 lbs BMI: 44.4 kg/m?? HR: 85 Location: Inpatient (Portable) Rhythm: Normal Sinus Rhythm Procedure Components: 2D imaging with contrast, Color Doppler, SpectralDoppler Indications: Chest pain chest pressure chest tightening Technical Quality: Fair Contrast: Definity Constrast Dose (ml): 0.3 [facility]#: [id number] Final Conclusion 1. Technically challenging echocardiogram. 2. [...] ZScore: 0.00 Rusty Major MD (Electronically Signed) [facility] Accredited Site Final Date: 19 September 2023 [...] 6.5(H) <=6.4 % 09/18/2023 7:22 AM CDT [facility] Blood BLOOD SPECIMEN / Unknown Venipuncture / Unknown 09/18/2023 4:17 AM CDT 09/18/2023 4:27 AM CDT Narrative [facility] - 09/18/2023 7:22 AM CDT ? (<5.7%) ?Normal ? (5.7% to 6.4%) ? Indicates prediabetes ? (>=6.5%) ? Confirms diabetes Falsely low levels may be seen with: Recent Transfusion, Recent Significant Blood Loss, Hemolytic Diseases, or Falsely elevated levels may be seen with: Untreated Anemias, Splenectomy Wendy King DO CHEMISTRY [facility] SENDOUT INTERNAL ZIP [phone] [place] [address] * LIPID PANEL (09/18/2023 4:17 AM CDT) CHOLESTEROL,TOTAL 174 100 - 199 mg/dL 09/18/2023 4:54 AM CDT [facility] Comment: Cholesterol, Total Reference Ranges Desirable <200 mg/dL Borderline 200-239 mg/dL High >=240 mg/dL TRIGLYCERIDES 105 <150 mg/dL 09/18/2023 4:54 AM CDT [facility] HDL CHOLESTEROL 42 >40 mg/dL 4:54 AM CDT [facility] NON-HDL CHOLESTEROL 132 <145 mg/dl 09/18/2023 4:54 AM CDT [facility] CHOL/HDL RATIO 4.14 <4.50 09/18/2023 4:54 AM CDT [facility] LDL CHOLESTEROL 111 <=130 mg/dL 09/18/2023 4:54 AM CDT [facility] VLDL CHOLESTEROL 21 <=30 mg/dL 09/18/2023 4:54 AM CDT [facility] PROVIDER ORDERED STATUS RANDOM 09/18/2023 4:54 AM CDT [facility] Blood BLOOD SPECIMEN / Unknown Venipuncture / Unknown 09/18/2023 4:17 AM CDT 09/18/2023 4:27 AM CDT Wendy King DO CHEMISTRY [facility] SENDOUT INTERNAL ZIP [address] [place] [address] * SCAN-CARDIAC STRIP (09/18/2023 3:10 AM CDT) Scanner OTHER * SCAN-CARDIAC STRIP (09/18/2023 12:00 AM CDT) Narrative 09/18/2023 12:00 AM CDT Ordered by an unspecified provider. Other Clinical Staff OTHER * (ABNORMAL) TROPONIN T (HS) ONE TIME (09/17/2023 9:52 PM CDT) TROPONIN T HS 156(H) 6-15 ng/L ng/L 09/17/2023 10:13 PM CDT [facility] Blood BLOOD SPECIMEN / Unknown Venipuncture / Unknown 09/17/2023 9:52 PM CDT 09/17/2023 9:53 PM CDT Pritesh Boyer MD CHEMISTRY [facility] [address] [address] * (ABNORMAL) TROPONIN T (HS) ACUTE W/2HR REFLEX (09/17/2023 7:55 PM CDT) TROPONIN T HS 74(H) 6-15 ng/L ng/L 09/17/2023 8:29 PM CDT [facility] Blood BLOOD SPECIMEN / Unknown IV Start / Unknown 09/17/2023 7:55 PM CDT 09/17/2023 7:56 PM CDT [facility] 09/17/2023 8:29 PM CDT hs-cTnT (Elecsys Troponin [...] department patient population. Pritesh Boyer MD CHEMISTRY [facility] [address] [phone] * (ABNORMAL) COMP METABOLIC PANEL (09/17/2023 7:55 PM CDT) SODIUM 138 136 - 145 mmol/L 09/17/2023 8:29 PM [facility] POTASSIUM 4.5 3.5 - 5.1 mmol/L 09/17/2023 8:29 PM [facility] CHLORIDE 102 98 - 107 mmol/L 09/17/2023 8:29 PM [facility] CO2,TOTAL 27 22 - 29 mmol/L 09/17/2023 8:29 PM [facility] ANION GAP 9 5 - 18 09/17/2023 8:29 PM [facility] GLUCOSE 229(H) 70 - 99 mg/dL 09/17/2023 8:29 PM [facility] CALCIUM 9.2 8.8 - 10.2 mg/dL 09/17/2023 8:29 PM [facility] BUN 17 8 - 23 mg/dL 09/17/2023 8:29 PM [facility] CREATININE 0.93 0.70 - 1.20 mg/dL 09/17/2023 8:29 PM [facility] BUN/CREAT RATIO 18 10 - 20 8:29 PM [facility] eGFR >90 >90 mL/min/1.7 3m2 09/17/2023 8:29 PM [facility] Comment:As of 2021, eG FR is calculated by the CKD-EPI creatinine equation without race adjustment. ??eGFR can be influenced by muscle mass, exercise, and diet. ??The reported eGFR is an estimation only and is only applicable if the renal function is stable. ALBUMIN 3.9(L) 4.0 - 4.9 g/dL 09/17/2023 8:29 PM [facility] PROTEIN,TOTAL 7.2 6.0 - 8.0 g/dL 09/17/2023 8:29 PM CDT [facility] BILIRUBIN,TOTAL 0.5 0.0 - 1.2 mg/dL 09/17/2023 8:29 PM CDT [facility] ALK PHOSPHATASE 114 40 - 129 IU/L 09/17/2023 8:29 PM CDT [facility] ALT (SGPT) 30 10 - 50 IU/L 09/17/2023 8:29 PM CDT [facility] AST (SGOT) 37 10 - 50 IU/L 09/17/2023 8:29 PM CDT [facility] Blood BLOOD SPECIMEN / Unknown IV Start / Unknown 09/17/2023 7:55 PM CDT 09/17/2023 7:56 PM CDT Pritesh Boyer MD CHEMISTRY Performing Organization Address City/State/[facility] Co de Phone Number [facility] [address] [address] * (ABNORMAL) REFERRAL SUSCEPTIBILITY (09/02/2023 8:26 AM CDT) CULTURE RESULT(A) 09/07/2023 10:49 AM CDT [facility] CULTURE Streptococcus dysgalactiae (Beta Strep group C or G) 09/07/2023 10:49 AM CDT [facility] Other (Left ankle) [...] or G) CLARITHROMYCIN S Doctor Unknown MICROBIOLOGY [facility] [address] [place] [address], from Last 3 Months Advance Directives * Full Code (Latest Code Status on File) Date Activated Date Inactivated Comments 10/12/2023 12:34 PM Patient wants resuscitation if needed, but does not want intubation or to be on life support. * Full Code Date Activated Date Inactivated Comments 09/18/2023 2:59 AM 09/28/2023 4:36 PM Question Answer Comments Code Status Discussion: Reviewed Preferences * Full Code Date Activated Date Inactivated Comments 09/19/2017 2:10 PM 09/22/2017 8:18 PM Question Answer Comments Code Status Discussion: Not Discussed Care Teams Psychology Associate Relationship Specialty Start Date End Date Munir Sahu MD [address] [place] [address] PCP - General Family Practice 09/17/23 [facility] [address] [place] [address] 09/28/23
== END 2023-10-14 07:49 | disposition home or self-care (01) ==
PROVIDERS: PCP Family Medicine; Visit Provider Nurse Practitioner Family
DX: I87.2 Venous insufficiency (chronic) (peripheral) (principal); E11.622 Type 2 diabetes mellitus with other skin ulcer; L97.322 Non-pressure chronic ulcer of left ankle with fat layer exposed; S81.801A Unspecified open wound, right lower leg, initial encounter; Z79.84 Long term (current) use of oral hypoglycemic drugs
CPT/HCPCS: 11042; 11045

== ENCOUNTER 2023-10-21 07:47 | Outpatient (CLI) | payer OTHER, SELFPAY ==
--- OUTSIDE RECORDS SUMMARY | 2023-10-21 07:50 | XMS_ITS | Clinical Summary ---
Author Organization [facility] Address [address] [place] [address] Care Team Providers Care Knockup Worker Name Role Phone Munir Sahu MD Primary Care Provider [phone] Allergies Active Allergy Reactions Criticality Noted Date [...] Advance Directives For more information, please contact: [phone] * Full Code (Latest Code Status on File) Date Activated Date Inactivated Comments 11/06/2019 2:19 PM 11/07/2019 9:06 PM All basic and advanced life-sustaining interventions are performed as appropriate Question Answer Comments Code status determined by: Unable to det ermine; FULL CODE until documents or legal decision maker available Care Teams Knockup Worker Relationship Specialty Start Date End Date Munir Sahu MD PCP - General Family Practice 10/22/19
--- OUTSIDE RECORDS SUMMARY | 2023-10-21 07:50 | XMS_ITS | Referral Summary ---
Author Organization [facility] Address [address] [place] [address] Care Team Providers Care Commercial Sewing Instructor Name Role Phone Munir Sahu MD Primary [...] Advance Directives For more information, please contact: [phone] * Full Code (Latest Code Status on File) Date Activated Date Inactivated Comments 11/06/2019 2:19 PM 11/07/2019 9:06 PM All basic and advanced life-sustaining interventions are performed as appropriate Question Answer Comments Code status determined by: Unable to det ermine; FULL CODE until documents or legal decision maker available Care Teams Commercial Sewing Instructor Relationship Specialty Start Date End Date Munir Sahu MD PCP - General Family Practice 10/22/19
--- OUTSIDE RECORDS SUMMARY | 2023-10-21 07:50 | XMS_ITS | Data Portability ---
Author Organization [place] [facility] Address [address] [place] [address] Care Team Providers Care Medical Office Secretary Name Role Phone GORDY SOL Primary Care Provider Assessment Encounter Date Assessment Date Assessment LastModified by Organization Details LastModified Time 11/21/2019 11/21/2019 59M with [id number] [place] 3+4=7 prostate cancer s/p RALP. Discussed pathology, risk of recurrence, need for ongoing PSA monitoring. Small anastomotic leak, will cont Choi x 1 more week. Worsened LE edema, likely chronic, but will check LE u/s to be sure no DVT. [email or web address] Not available 11/21/2019 14:07:03 01/02/2020 01/02/2020 59M with [id number] [place] 3+4=7 prostate cancer s/p RALP. 1) Prostate cancer - f/u 4 months with PSA 2) EVETTE, moderate - cont Kegels - consider PFPT 3) ED - Cialis PRN [email or web address] Not available 01/02/2020 09:34:03 05/01/2020 05/01/2020 60M with [id number] [place] 3+4=7 prostate cancer s/p RALP 6 months ago. MICHAEL. 1) Prostate cancer - f/u 6 months with PSA 2) EVETTE, moderate - cont Kegels - consider PFPT 3) ED - Cialis PRN [email or web address] Not available 05/01/2020 10:47:29 10/24/2020 10/24/2020 60M with [id number] [place] 3+4=7 prostate cancer s/p RALP 1 year [...] floor therap y referr al 2020 021 [facility], [address], [facility] [address], [place], [address], 09:57:49 Procedures None record ed. Surgeries None record ed. Imaging None record ed. Medication Orders None record ed. Patient TargetsNo targets recorded. Patient Instructions Encounter Date Encounter Id Patient Instructions Last Modified By Organization Details Last Modified Time 11/28/2019 [id number] To follow up sumaya Doshi at his [...] Not Available [facility] [address], [place], [address], 05/01/2020 10:40:29 02/11/2020 lab* PSA <0.04 normal Not Available Not Available 01/07/2020 12:33:24 01/02/2020 PSA, serum or plasm a PSA, Total <0.04 ng/Ml Not Available [facility] [address], [place], [address], 01/02/2020 09:14:10 10/25/19 21 10/24/2020 PSA, serum or plasm a PSA, Total <0.04n g/mL Not Available [facility] [address], [place], [address], 10/24/2020 10:45:30 11/23/19 20 11/21/2019 CT, pelvi s, w/o contr ast No observ ation record ed. cedric Not Available 11/29/19 17:13:18 Result Notes None recorded. Problems Name Status Onset Date Resolution Date Notes Provider Name and Address Organization Details Recorded Time Carcinoma of prostate Active 11/21/19 20 Caroline kruger [facility] 11/21/2019 10:59:25 Male urinary stress incontinence Active 05/01/19 21 Momo delacruz MD, PHD [address] [place] [address], [phone], [facility] 05/01/2020 10:47:38 Primary erectile dysfunction Active 05/01/19 21 Momo delacruz MD, PHD [address] [place] [address], [phone], [facility] 05/01/2020 10:47:58 Problem Notes None recorded. Procedures Surgical History Date Name Laterality Status Provider Name and Address Organization Details Recorded Time 10/25/19 21 Blood Draw/FUEL CELL BINDER/PSA RESULTS completed Momo baez MD, PHD [address] [place] [address], [phone], [facility] 10/24/2020 10:45:26 05/01/19 21 Blood Draw/FUEL CELL BINDER/PSA RESULTS completed Momo baez MD, PHD [address], [place], [address], [facility] 05/01/2020 10:40:25 01/02/20 20 Blood Draw/FUEL CELL BINDER/PSA RESULTS completed Janice Ayala [facility] 01/02/2020 09:14:04 11/28/19 20 Choi Catheter Removal completed Caroline Smith [facility] 02/04/2020 12:00:10 Prostatectomy completed Momo baez MD, PHD [address], [place], [address], [facility] 10/24/2020 10:44:48 colonoscopy completed Monica Awan [facility], [facility] 12/09/2020 10:47:07 Imaging Results Imaging Date Name Status LastModified by Organiz ation Details LastModified Time 11/21/2019 CT, pelvis, w/o contrast completed cedric Information not available 11/29/2019 17:13:18 Procedure Notes None recorded. Medical Equipment None Reported. Allergies Allergen ID Allergen Name Allergen Category Reaction Reaction Severity Criticality Documentation Date Start Date Code Code System Note Provider Name and Address Organization Details Recorded Time 699530 silver medicatio n Not available Not available Not available 11/21/2019 95820 43 RxNorm Caroline Smith [facility] 0 11:09:54 308000 adhesive tape environme nt,medica tion Not available Not available Not available 11/21/2019 Caroline Smith [facility] 0 11:10:01 Medications Name Sig [...] Updated DateTime 01/02/2020 180.34 cm 39.3 kg/m2 227178.05 g Caroline Rojasyoandy [facility] 01/02/2020 09:09:40 Date Recorded Body height Body mass index (BMI) Body weight Provider Name and Address Organization Details Last Updated DateTime 05/01/2020 180.34 cm 39.3 kg/m2 648364.05 g Momo baez MD, PHD [address] [place] [address] 05/01/2020 10:39:59 Date Recorded Body height Body mass index (BMI) Body weight Provider Name and Address Organization Details Last Updated DateTime 10/24/2020 180.34 cm 39.7 kg/m2 709749.83 g Momo baez MD, PHD [address] [place] [address] 10/24/2020 10:44:13 Date Recorded Body height Body mass index (BMI) Body weight Provider Name and Address Organization Details Last Updated DateTime 11/21/2019 180.34 cm 39.3 kg/m2 322419.05 g Caroilne Rojasyoandy [facility] 11/21/2019 11:09:04 Social History Question Answer Notes LastModified by Organizat ion Details LastModified Time Tobacco Smoking Status Never Smoker Caroline kruger [facility] 11/21/2019 11:10:15 What Is Your Level [...] Encounter Closed Date Diagnosis/Indication Diagnosis SNOMED-CT Code [id number] Momo delacruz MD, PHD [facility] [employer] [address] [place] [address] 11/21/2019 10:45:55 11/21/2019 15:00:28 Malignant tumor of prostate [id number] Caroline Gneiting [facility] [employer] [address] [place] [address] 11/28/2019 09:57:13 02/06/2020 03:54:17 [id number] Momo delacruz MD, PHD [facility] [employer] [address] [place] [address] 01/02/2020 08:46:59 01/02/2020 14:22:16 Malignant tumor of prostate 112808430 [id number] Momo delacruz MD, PHD [facility] [employer] [address] [place] [address] 05/01/2020 09:26:51 05/01/2020 12:03:29 Malignant tumor of prostate 515000582 Primary er ectile dysfunction [id number] Momo delacruz MD, PHD [facility] [employer] [address] [place] [address] 10/24/2020 10:28:04 10/27/2020 16:45:05 Carcinoma of prostate 993417013 Malignant tumor of prostate 098311100 Primary er ectile dysfunction 330439314 Male urina ry stress incontinence 068187018 Health Concerns Section Related Observation LastModified by Organization Detai ls LastModified Time None Recorded Concern Status LastModified by Organization Details LastModified Time None Recorded Advance Directives Directive None Recorded Payers Encounter Date Sequence Insurance Name Policy Number Policy Archibald Covered Member ID Archibald Member ID Guarantor Name 11/21/2019 1 [facility] [id number] Julien Ridley [id number] Julien Ridley 11/28/2019 1 [facility] [id number] Julien Ridley [id number] Julien Ridley 01/02/2020 1 [facility] [id number] Julien Ridley [id number] Julien Ridley 05/01/2020 1 [facility] [id number] Julien Ridley [id number] Julien Ridley 10/24/2020 1 [facility] [id number] Julien Ridley [id number] Julien Ridley Notes Date Note Type Note Provider Name and Address Organization Details Recorded Time 11/21/2019 text/html HPI Notes: 59M s /p RALP 11/06/19 for [id number] [place] 3+4=7 prostate cancer (0/12 LN, -SMS) Overall doing well. Some drainage umbilical incision. Chronic LE edema worse especially R>L. Some hematuria when having BMs. No fever. Eating ok. Minimal pain. CT Cystogram today: small anastomotic leak PSA (07/27/19): 6.5 CONSTANZA: cT1c, 35g (J Carlos) MRI: none Biopsy (08/30/19): 23g, 3/12 cores (LLM, LMB, LMM [place] 3+4=7 up to 40%) Pre-op ED: 05/09 Momo Holliday MD, PHD [address], [place], [address], [facility] 11/21/2019 14:07:42 01/02/2020 text/html HPI Notes: 59M with [id number] [place] 3+4=7 prostate cancer (0/12 LN, -SMS) s/p RALP 11/06/19. Small anastomotic leak, catheter removed 11/28/19. Overall doing well. C/o some leakage with BMs and position changes. Uses multiple depends per day...... LE u/s to eval for dvt last visit was negative PSA Results 07/27/19: 6.5 01/02/20: <0.04 UF: 07/07 EF: / Pre-op EF: / Momo Holliday MD, PHD [address] [place] [address],[address], [address], [facility] 01/02/2020 09:35:54 05/01/2020 text/html HPI Notes: 60M with [id number] [place] 3+4=7 prostate cancer (0/12 LN, -SMS) s/p RALP 11/06/19. Small anastomotic leak, catheter removed 11/28/19. Overall doing well. C/o some leakage with BMs and position changes. Uses 4ppd which is improvement. No problems with incisions. PSA Results 07/27/19: 6.5 01/02/20: <0.04 05/01/20: <0.04 UF: 3/5 EF: 5/5 Pre-op EF: 2/5 Momo Holliday MD, PHD [address] [place] [address],[address], [address], [facility] 05/01/2020 10:48:15 10/24/2020 text/html HPI Notes: 60M with [id number] [place] 3+4=7 prostate cancer (0/12 LN, -SMS) s/p RALP 11/06/19 Overall doing well. C/o some leakage with BMs and position changes and sexual activity. Uses 4ppd still. No problems with incisions. PSA Results 07/27/19: 6.5 01/02/20: <0.04 05/01/20: <0.04 10/24/20: <0.04 UF: 3/5 EF: 5/5 Pre-op EF: 2/5 Momo Holliday MD, PHD [address] [place] [address],[address] [place] [address], [phone], [facility] 10/24/2020 11:30:55
--- OUTSIDE RECORDS SUMMARY | 2023-10-21 07:51 | XMS_ITS | Clinical Summary ---
Author Organization [facility] Address [place], [place] [address] Care Team Providers Care Parts Department Supervisor Name Role Phone Munir Sahu MD Primary Care Provider + [facility], [place] Unavailable [phone] Allergies Active Allergy Reactions Criticality Noted Date [...] 50 mg by mouth once daily. Active aspirin chewable 81 mg chewable tabletIndications [...] covered by insurance) 9 mL 09/28/2023 Active Insulin Durand, Disposable, (Susana Pen Needle) 32 gauge x [...] in 24 hrs.,Indications: pain, Reported on 09/30/2023 empagliflozin (Jardiance) 10 mg tabletIndications :Type 2 diabetes mellitus with complication (HC) Take 1 Tablet (10 mg) by mouth once daily. 30 Tablet 09/28/2023 Active atorvastatin (LIPITOR) 80 mg tabletIndications :CAD, multiple vessel,NSTEMI (non-ST elevated myocardial infarction) (HC) Take 1 Tablet (80 mg) by mouth at bedtime. 90 Tablet 10/20/2023 Active valsartan (DIOVAN) 40 mg tabletIndications :CAD, multiple vessel,NSTEMI (non-ST elevated myocardial infarction) (HC),Essential hypertension Take 1 Tablet (40 mg) by mouth once daily. 90 Tablet 3 10/20/2023 Active metoprolol succinate (TOPROL XL) 25 mg Sustained-Release tabletIndications :CAD, multiple vessel,NSTEMI (non-ST elevated myocardial infarction) (HC) Take 1 Tablet (25 mg) by mouth once daily. 90 Tablet 10/20/2023 Active furosemide (LASIX) 40 mg tabletIndications :CAD, multiple vessel,NSTEMI (non-ST elevated myocardial infarction) (HC) Take 1 Tablet (40 mg) by mouth two times daily. 180 Tablet 10/20/2023 Active clopidogreL (PLAVIX) 75 mg tabletIndications :NSTEMI (non-ST elevated myocardial infarction) (HC) Take 1 Tablet (75 mg) by mouth once daily in the morning. 90 Tablet 10/20/2023 Active nitroglycerin (NITROSTAT) 0.4 mg sublingual tabletIndications :CAD, multiple vessel Place 1 Tablet (0.4 mg) under the tongue every 5 minutes if needed for Chest pain 1st choice. Up to 3 tablets in 15 minutes. 25 Tablet 3 10/20/2023 Active glimepiride (AMARYL) 2 mg tablet Take 2 mg by mouth once daily. 4 Discontinu ed(*IP Discontinu ed) ibuprofen (ADVIL; MOTRIN) 200 mg tablet Take 400-600 mg by mouth every 6 hours if needed for Pain. 4 Discontinu ed(*IP Discontinu ed) torsemide (DEMADEX) 10 mg tablet Take 10 mg by mouth once daily if needed (leg swelling). 4 Discontinu ed(*IP Discontinu ed) atorvastatin (LIPITOR) 80 mg tabletIndications :CAD, multiple vessel,Type 2 diabetes mellitus with complication (HC) Take 1 Tablet (80 mg) by mouth at bedtime. 30 Tablet 09/28/2023 Discontinu ed(Reorder (E-cancel not sent)) clopidogreL (PLAVIX) 75 mg tabletIndications :NSTEMI (non-ST elevated myocardial infarction) (HC) Take 1 Tablet (75 mg) by mouth once daily in the morning. 30 Tablet 09/28/2023 4 Discontinu ed(Reorder (E-cancel not sent)) nitroglycerin (NITROSTAT) 0.4 mg sublingual tabletIndications :CAD, multiple vessel Place 1 Tablet (0.4 mg) under the tongue every 5 minutes if needed for Chest pain 1st choice. Up to 3 tablets in 15 minutes. 20 Tablet 09/28/2023 4 Discontinu ed(Reorder (E-cancel not sent)) valsartan (DIOVAN) 40 mg tabletIndications :NSTEMI (non-ST elevated myocardial infarction) (HC),CAD, multiple vessel,Essential hypertension Take 1 Tablet (40 mg) by mouth once daily. 30 Tablet 09/28/2023 4 Discontinu ed(Reorder (E-cancel not sent)) furosemide (LASIX) 40 mg tabletIndications :NSTEMI (non-ST elevated myocardial infarction) (HC),CAD, multiple vessel Take 1 Tablet (40 mg) by mouth two times daily. 60 Tablet 09/28/2023 4 Discontinu ed(Reorder (E-cancel not sent)) metoprolol succinate (TOPROL XL) 25 mg Sustained-Release tabletIndications :NSTEMI (non-ST elevated myocardial infarction) (HC),CAD, multiple vessel Take 1 Tablet (25 mg) by mouth once daily. 30 Tablet 09/28/2023 4 Discontinu ed(Reorder (E-cancel not sent)) Active Problems Problem Noted Date Diagnosed Date [...] Encounters Date Type Department Care Team Description 10/20/2023 1:50 PM CDT Orders Only [facility] [address] [place] [address] Lab 10/20/2023 1:00 PM CDT [facility] [address] [place] [phone] Jen Greenberg, BOWEN Follow Up (3-4 weeks for post-op CABGsternal wires to be removed, per Alejandra Sid // pre-op for 10/27 staged pci w/ JTK); Refill Request (Nitro, atorvastatin, metoprolol, Furosamide, plavix and valsartan ); Concerns (SOB with longer walk pt states that he gets lightheadedness as well pt denies chest discomfort, edema, headaches, numbness, tinglings and palpitations at this time ) 10/20/2023 Travel 10/19/2023 7:45 AM CDT Home Care Visit [place] [id number] [place] [phone] Elvira Reyes RN SN - HOME VISIT 10/17/2023 5:00 AM CDT Home Care Visit [address] [address] Isa Cintron RN SN - HOME VISIT 10/14/2023 11:30 AM CDT Home Care Visit [address] [phone] Lavern Madrid RN SN - MISSED VISIT 10/12/2023 10:00 AM CDT Home Care Visit [address] [address] Elvira Reyes, RN SN - HOME VISIT 10/10/2023 9:45 AM CDT Home Care Visit [address] [address] Elvira Reyes, RN SN - HOME VISIT 10/07/2023 8:00 AM CDT Home Care Visit [address] [address] Elvira Reyes RN SN - HOME VISIT 10/05/2023 12:30 PM CDT Home Care Visit [address] [phone] Elvira Reyes RN SN - HOME VISIT 10/04/2023 2:00 PM CDT Procedure [facility] [address] [facility] [address] [place] [address] Device Check (IN CLINIC [facility] LEADLESS... 10/04/2023 Travel 10/03/2023 7:00 AM CDT Home Care Visit [facility] [address] [place] [phone] Lexi Esteves, CHITRA SN - HOME VISIT 10/03/2023 1:00 AM CDT Home Care Visit [facility] [address] [place] [phone] Ailyn Varghese, CHITRA SN - WOUND/OSTOMY CHART CONSULT 10/03/2023 Telephone [place] [address] [place] [address] Ailyn Varghese RN Home Care (Vascular and or Wound clinic referral is needed. Supplies with [facility]) 09/30/2023 9:30 AM CDT Home Care Visit [address] [phone] Lexi Esteves, CHITRA SN - OASIS START OF CARE 09/30/2023 Plan of Care Documentation [address] [phone] 09/28/2023 Orders [facility] [address] [facility] [address] [place] [address] Alejandra Lau PA <No scans attached> 09/23/2023 2:03 PM CDT Anesthesia Event [address] [address] Marylou De Anda MD Ludwig, Margaret J, CRNA 09/23/2023 12:45 PM CDT - 09/23/2023 8:02 PM CDT Surgery [address] [address] Gregorio Leal MD CORONARY ARTERY BYPASS X 3 WITH RADIAL HARVEST, AND TEMP VENTRICULAR PACING WIRES 09/18/2023 2:58 AM CDT - 09/28/2023 2:30 PM CDT Hospital Encounter [facility] [address] [place] [address] s, U Hospitalist SvWendy Cruz, DO Moffett, MD Cristal Gallardo, Munir Muhammad MD S/p 3V CABG (SHER-LAD, LISA-ramus, radial-OM), 09/23/2023 (Primary Dx); Ulcer of left lower extremity with fat layer exposed (HC) [L97.922]; NSTEMI (non-ST elevated myocardial infarction) (HC); CAD, multiple vessel; Type 2 diabetes mellitus with complication (HC); Essential hypertension Discharge Disposition: Home Health 09/17/2023 7:43 PM CDT - 09/18/2023 1:46 AM CDT Emergency [facility] [address] [place] [address] Pritesh Boyer MD NSTEMI (non-ST elevated myocardial infarction) (HC) (Primary Dx) Discharge Disposition: Health Care Facility Not On List 09/17/2023 Telephone [facility] [address] [place] [address] Guzman Lovelace MD 09/17/2023 Travel 09/05/2023 Lab Requisition [facility] [phone] Unknown, Doctor from Last 3 Months Family History Medical History Relation Name Comments Coronary artery disease Father Relation Name Status Comments Father [...] Sign Reading Time Taken Comments Blood Pressure 90/60 10/20/2023 12:42 PM CDT Pulse 68 10/20/2023 12:42 PM CDT Temperature 36.7 ??C (98.1 ??F) 10/20/2023 12:42 PM C DT Respiratory Rate 16 10/20/2023 12:42 PM CDT Oxygen Saturation 99% 10/20/2023 12:42 PM CDT Inhaled Oxygen Concentration - - Weight 131.1 kg (289 lb) 10/20/2023 12:42 PM CDT Height 180.3 cm (5' 11) 10/20/2023 12:42 PM CDT Body Mass Index 40.31 10/20/2023 12:42 PM CDT Plan of Treatment Upcoming Encounters Date Type Department Care Team (Late st Contact Info) Description 10/24/2023 4:00 AM CDT Home Care Visit [address] [phone] Elvira Reyes RN [address] [place] [address] 10/24/2023 5:00 AM CDT Home Care Visit [address] [phone] Ailyn Varghese RN [address] [place] [address] 10/26/2023 4:00 AM CDT Home Care Visit [address] [address] Elvira Reyes RN [address] [place] [address] 10/28/2023 5:00 AM CDT Home Care Visit [address] [phone] Ailyn Varghese, RN [address] [place] [address] 10/28/2023 8:00 AM CDT Appointment [facility] [address] [place] [address] Kamran Li MD [address] [place] [address] 10/31/2023 Procedure [facility] [address] [facility] [address] [place] [phone] 10/31/2023 4:00 AM CDT Home Care Visit [place] [address] [place] [phone] Elvira Reyes RN [address] [address] 11/02/2023 4:00 AM CDT Home Care Visit [address] [phone] Elvira Reyes, RN [address] [address] 11/07/2023 4:00 AM CDT Home Care Visit [address] [address] Elvira Reyes, RN [address] [place] [address] 11/09/2023 4:00 AM CDT Home Care Visit [place] [address] [place] [phone] Elvira Reyes RN [address] [address] 11/14/2023 4:00 AM CDT Home Care Visit [address] [place] [address] Elvira Reyes, RN [address], [place] [address] 11/16/2023 4:00 AM CDT Home Care Visit [address] [address] Elvira Reyes, RN [address], [place] [address] 11/21/2023 4:00 AM CDT Home Care Visit [address] [phone] Elvira Reyes, RN [address], [place] [address] 11/23/2023 4:00 AM CDT Home Care Visit [address] [phone] Elvira Reyes, RN [address] [address] 11/28/2023 4:00 AM CDT Appointment [address] [address] Elvira Reyes, RN [address], [place] [address] 12/13/2023 2:30 PM CDT [facility] [address] [facility] [address] [place] [address] Quentin Aiken MD [address] [facility] [address] [place] [address] Health Maintenance Due Date Last Done Comments Pneumococcal series for age 6-64 (1 of 2 - PCV) 1967 Tdap 02/08/1972 Depression screening for age 12+ 1973 HIV for age 15-65 02/08/1976 Hepatitis C screening for age 18-79 1979 Tetanus booster 1981 Colonoscopy through age 75 2006 Zoster (shingles) series for age 50+ (1 of 2) 2011 COVID-19 vaccine series ( season) 2022 02/06/2021, 07/10/2020, 06/12/2020 Influenza for age 50-64 12/04/2023 BMI (ht and wt on same day) for age 18+ 10/19/2024 10/20/2023 Lipids for age 45-75 09/17/2028 09/18/2023 Procedures Procedure Name Priority Date/Time Associated Diagnosis Comments CBC W PLT NO DIFF Routine 10/20/2023 2:1 7 PM CDT S/P CABG (coronary artery bypass graft) BASIC METABOLIC PANEL Routine 10/20/2023 2:17 PM CDT S/P CABG (coronary artery bypass graft) Abnormal CBC GLUCOSE METER Timed 09/28/2023 12:07 PM CDT [...] THROMBIN TIME STAT 09/23/2023 8:05 PM CDT [facility] CATH INFUSION PR70 Routine 09/23/19 4:34 PM CDT [facility] KIT PR5 Routine 09/23/2023 4:34 PM CDT [facility] AN INTRODUCER 2 LUMEN PERFORMABLE Routine 09/23/2023 4:34 PM CDT [facility] DRSG PR1 Routine 09/23/2023 4:34 PM CDT [facility] DRSG PR5 Routine 09/23/2023 4:34 PM CDT [facility] TUBING PR5 Routine 09/23/2023 4:34 PM CDT [facility] KIT MONITORING PR5 Routine 09/23/19 24 4:34 PM CDT [facility] ADPTR PR1 Routine [...] Case Notes [facility] T/FPERFUSION-Confirmed w/Shayna for 1315 #[id number] EK 6/20OR STAFF BYPASS CORONARY ARTERY 01 2023 1:33 PM CDT Case Notes [facility] T/FPERFUSION-Confirmed w/Shayna for 1315 #[id number] EK 6/20OR STAFF GLUCOSE METER Timed 09/23/2023 [...] 7:36 PM CDT REFERRAL SUSCEPTIBILITY Routine 09/02/19 8:26 AM CDT from Last 3 Months Results * (ABNORMAL) CBC W PLT NO DIFF (10/20/2023 2:17 PM CDT) Only the most recent of4 resultswithin the time period is included. WHITE BLOOD COUNT 7.4 4.5 - 11.0 thou/cu mm 10/20/2023 2:33 PM CDT [facility] RED BLOOD COUNT 4.49 4.30 - 5.90 mil/cu mm 10/20/2023 2:33 PM CDT [facility] HEMOGLOBIN 12.8(L) 13.5 - 17.5 g/dL 10/20/2023 2:33 PM T [facility] HEMATOCRIT 40.6 37.0 - 53.0 % 10/20/2023 2:33 PM CDT [facility] MCV 90 80 - 100 fL 10/20/2023 2:33 PM CDT [facility] MCH 28.5 26.0 - 34.0 pg 10/20/2023 2:33 PM T [facility] MCHC 31.5(L) 32.0 - 36.0 g/dL 10/20/2023 2:33 PM T [facility] RDW 14.6 11.5 - 15.5 % 10/20/2023 2:33 PM CDT [facility] PLATELET COUNT 224 140 - 440 thou/cu mm 10/20/2023 2:33 PM CDT [facility] MPV 9.8 6.5 - 11.0 fL 10/20/2023 2:33 PM CDT [facility] NRBC 0.0 % 10/20/2023 2:33 PM CDT [facility] ABS NRBC 0.0 thou /cu mm 10/20/2023 2:33 PM T [facility] Blood BLOOD SPECIMEN / Unknown Venipuncture / Unknown 10/20/2023 2:17 PM CDT 10/20/2023 2:17 PM CDT [facility] - 10/20/2023 2:33 PM CDT [facility] Jen Greenberg NP HEMATOLOGY [facility] SENDOUT [place]NAL ZIP [phone] [place] [address] * (ABNORMAL) BASIC METABOLIC PANEL (10/20/2023 2:17 PM CDT) Only the most recent of12 resultswithin the time period is included. SODIUM 140 136 - 145 mmol/L 10/20/2023 2:56 PM CDT [facility] POTASSIUM 4.4 3.5 - 5.1 mmol/L 10/20/2023 2:56 PM T [facility] CHLORIDE 102 98 - 107 mmol/L 10/20/2023 2:56 PM T [facility] CO2,TOTAL 28 22 - 29 mmol/L 10/20/2023 2:56 PM [facility] ANION GAP 10 5 - 18 10/20/2023 2:56 PM T [facility] GLUCOSE 133(H) 70 - 99 mg/dL 10/20/2023 2:56 PM T [facility] CALCIUM 9.4 8.8 - 10.2 mg/dL 10/20/2023 2:56 PM [facility] BUN 17 8 - 23 mg/dL 10/20/2023 2:56 PM T [facility] CREATININE 0.98 0.70 - 1.20 mg/dL 10/20/2023 2:56 PM [facility] BUN/CREAT RATIO 17 10 - 20 2:56 PM T [facility] eGFR 87(L) >90 mL/min/1.7 3m2 10/20/2023 2:56 PM [facility] Comment:As of 2021, eG FR is calculated by the CKD-EPI creatinine equation without race adjustment. ??eGFR can be influenced by muscle mass, exercise, and diet. ??The reported eGFR is an estimation only and is only applicable if the renal function is stable. Blood BLOOD SPECIMEN / Unknown Venipuncture / Unknown 10/20/2023 2:17 PM CDT 10/20/2023 2:17 PM CDT Jen Greenberg NP CHEMISTRY Performing Organization Address City/[facility] Co de Phone Number [facility] SENDOUT [place] [address] [phone] [place] [address] * (ABNORMAL) GLUCOSE METER (09/28/2023 12:07 PM CDT) Only the most recent of51 resultswithin the time period is included. GLUCOSE METER 204(H) 65 - 100 mg/dL 09/28/2023 12:10 PM CDT [facility] Blood BLOOD SPECIMEN / Unknown 09/28/2023 12:07 PM CDT 09/28/2023 12:10 PM CDT Munir Bee MD CHEMISTRY Performing Organization Address [facility] Co de Phone Number [facility] SENDOUT [place] [address] [phone] [place] [address] * EKG 12 LEAD (09/28/2023 10:41 AM [...] NOW QTc 412 ms BEYOND NOW P [place] 45 degrees BEYOND NOW R [place] 50 degrees BEYOND NOW T [place] 53 degrees BEYOND NOW 09/28/2023 10:4 1 AM CDT 09/29/2023 8:23 AM CDT Sandhya Thacker PA EKG ORD Performing Organization Address [facility] Co de Phone Number BEYOND NOW [place], [place] * SCAN-CARDIAC STRIP (09/28/2023 8:00 AM CDT) Scanner OTHER * PLATELET COUNT (09/28/2023 4:53 AM CDT) Only the most recent of10 resultswithin the time period is included. PLATELET COUNT 239 140 - 440 thou/cu mm 09/28/2023 5:32 AM CDT [facility] MPV 9.2 6.5 - 11.0 fL 09/28/2023 5:32 AM CDT [facility] Blood BLOOD SPECIMEN / Unknown Venipuncture / Unknown 09/28/2023 4:53 AM CDT 09/28/2023 5:21 AM CDT Sandhya FAJARDO HEMATOLOGY Performing Organization Address City/[facility]/ZIP Co de Phone Number [facility] SENDOUT INTERNAL ZIP [phone] [place] [address] * WHITE BLOOD COUNT (09/28/2023 4:53 AM CDT) Only the most recent of4 resultswithin the time period is included. WHITE BLOOD COUNT 7.3 4.5 - 11.0 thou/cu mm 09/28/2023 5:32 AM CDT [facility] NRBC 0.0 % 09/28/2023 5:32 AM CDT [facility] ABS NRBC 0.0 thou /cu mm 09/28/2023 5:32 AM CDT [facility] Blood BLOOD SPECIMEN / Unknown Venipuncture / Unknown 09/28/2023 4:53 AM CDT 09/28/2023 5:21 AM CDT Sandhya FAJARDO HEMATOLOGY [facility] SENDOUT INTERNAL ZIP [phone] [place] [address] * (ABNORMAL) HEMOGLOBIN (09/28/2023 4:53 AM CDT) Only the most recent of10 resultswithin the time period is included. HEMOGLOBIN 11.6(L) 13.5 - 17.5 g/dL 09/28/2023 5:32 AM CDT [facility] MCV 91 80 - 100 fL 09/28/2023 5:32 AM CDT [facility] Blood BLOOD SPECIMEN / Unknown Venipuncture / Unknown 09/28/2023 4:53 AM CDT 09/28/2023 5:21 AM CDT Sandhya FAJARDO HEMATOLOGY [facility] SENDOUT INTERNAL [address] [phone] [place] [address] * SCAN-CARDIAC STRIP (09/27/2023 7:43 PM CDT) Scanner OTHER * ECHO TTE LIMITED W CONTRAST W COLOR W DOPPLER (09/27/2023 12:26 PM CDT) EJECTION FRACTION 55% PROSOLV Anatomical Region Laterality Modality Ultrasound 09/27/2023 11:3 8 AM CDT Narrative 09/27/2023 12:43 [place] [address] Main: [email or web address] ? Transthoracic Echo Report JOSE GUADALUPE RIDLEY Federico ID: [id number] Age: 63 : 1960 Ordering Provider: REMI CHONG Exam Date: 09/27/2023 11:38 Gender: M Weigher Operator: [facility] Height: 68 in BSA: 2.46 m?? BP: [...] ?4.93 mmHg Rusty Major MD (Electronically Signed) [facility] Accredited Site Final Date: 27 September 2023 12:41 ICD-10 Codes: Procedure Note Rusty Major MD - 09/27/2023 [place] [address] Main: [email or web address] Transthoracic Echo Report JOSE GUADALUPE RIDLEY ID: [id number] Age: 63 : 1960 Ordering Provider:REMI CHONG Exam Date: 09/27/2023 11:38 Gender: M Weigher Operator: [facility] Height: 68 in BSA: 2.46 m?? BP: 132 / 62 Weight: 309 lbs BMI: 47 kg/m?? HR: 85 Location: Inpatient (Portable) Rhythm: Artificially Paced Procedure Components: Limited 2D imaging with contrast, Limited SpectralDoppler, Color Doppler Indications: Cardiac pacemaker Technical Quality: Fair Contrast: Definity Constrast Dose (ml): 0.3 Final Conclusion Previous Study: 6/17/24 LIMITED ECHOCARDIOGRAM FOR ASSESSMENT OF PERICARDIAL EFFUSION. [...] 4.93 mmHg Rusty Major MD (Electronically Signed) [facility] Accredited Site Final Date: 27 September 2023 12:41 ICD-10 Codes: Remi Chong MANUFACTURER AGENT ECHO ORD * POTASSIUM (09/27/2023 12:12 PM CDT) Only the most recent of4 resultswithin the time period is included. POTASSIUM 4.6 3.5 - 5.1 mmol/L 09/27/2023 12:45 PM CDT [facility] Blood BLOOD SPECIMEN / Unknown Butterfly / Unknown 09/27/2023 12:12 PM CDT 09/27/2023 12:28 PM CDT Gregorio Elizabeth MD CHEMISTRY [facility] SENDOUT INTERNAL ZIP [address] [address] [place] [address] * SCAN-CARDIAC STRIP (09/27/2023 8:00 AM CDT) [...] result of the Century Cures Act, medical imaging exams and procedure reports are released immediately into your electronic medical record. You may view this report before your referring provider. If you have questions, please contact your health care provider. EXAM: XR CHEST 2 VIEWS PA AND LATERAL LOCATION: [facility] MEDICAL IMAGING DATE: 09/27/2023 INDICATION: Post Pacemaker [...] CHEST 2 VIEWS PA AND LATERAL LOCATION: [facility] MEDICAL IMAGING DATE: 09/27/2023 INDICATION: Post [...] Juanito Romeo MD ? 09/26/2023 ??5:44 PM [facility] Electrophysiology Laboratory Leadless Pacemaker (AV [...] fluoroscopic image from device in [place] and [place] projection. The patient tolerated the procedure well [...] procedure. Attending Signature: Juanito Romeo M.D. Cardiac Humidifier Maintenance Worker [facility] Manan Steele NP PHOTOGRAPHIC PRINTER ORD * EP PPM (09/26/2023 4:54 PM CDT) Anatomical Region Laterality Modality Other 09/26/2023 4:54 PM CDT Manan Steele NP CV IMAGING * SCAN-CARDIAC STRIP (09/26/2023 8:36 AM CDT) Scanner OTHER * (ABNORMAL) Protime-INR (09/26/2023 5:26 AM CDT) Only the most recent of7 resultswithin the time period is included. INR 1.2 <1.3 09/26/2023 5:38 AM CDT [facility] PROTIME 13.3(H) 10.3 - 12.3 sec 09/26/2023 5:38 AM CDT [facility] Blood BLOOD SPECIMEN / Unknown Venipuncture / Unknown 09/26/2023 5:26 AM CDT 09/26/2023 5:30 AM CDT Narrative [facility] - 09/26/2023 5:38 AM CDT ?Therapeutic [...] is on UFH. Gregorio Elizabeth MD HEMATOLOGY Performing Organization Address City/State/[facility] Co de Phone Number [facility] SENDOUT INTERNAL [facility] [phone] [place] [address] * SCAN-PACER (09/26/2023 12:00 AM CDT) Narrative 09/26/2023 12:00 AM CDT Ordered by an unspecified provider. Other Clinical Staff OTHER * SCAN-CARDIAC STRIP (09/25/2023 8:00 AM CDT) Scanner OTHER * MAGNESIUM (09/25/2023 5:07 AM CDT) Only the most recent of8 resultswithin the time period is included. MAGNESIUM 2.1 1.6 - 2.4 mg/dL 09/25/2023 5:34 AM CDT [facility] Blood BLOOD SPECIMEN / Unknown Non-Lab Venipuncture / Unknown 09/25/2023 5:07 AM CDT 09/25/2023 5:15 AM CDT Gregorio Elizabeth MD CHEMISTRY [facility] SENDOUT INTERNAL ZIP [phone] [place] [id number] * SCAN-CARDIAC STRIP (09/24/2023 11:32 PM CDT) [...] result of the Century Cures Act, medical imaging exams and procedure reports are released immediately into your electronic medical record. You may view this report before your referring provider. If you have questions, please contact your health care provider. EXAM: XR CHEST 1 VIEW PORTABLE LOCATION: [facility] MEDICAL IMAGING DATE: 09/24/2023 INDICATION: ET [...] EXAM: XR CHEST 1 VIEW PORTABLE LOCATION: [facility] MEDICAL IMAGING DATE: 09/24/2023 INDICATION: ET [...] - 1.27 mmol/L 09/24/2023 4:35 AM CDT [facility] Blood BLOOD SPECIMEN / Unknown Non-Lab Venipuncture / Unknown 09/24/2023 4:20 AM CDT 09/24/2023 4:32 AM CDT Gregorio Elizabeth MD CHEMISTRY [facility] SENDOUT [place]NAL ZIP [address] [address] [place] [address] * (ABNORMAL) Arterial Blood Gas (09/24/2023 12:16 AM CDT) PH, ARTERIAL 7.33(L) 7.35 - 7.45 09/24/2023 12:25 AM CDT [facility] PCO2, ARTERIAL 52(H) 35 - 48 mmHg 09/24/2023 12:25 AM CDT [facility] PO2, ARTERIAL 164(H) 83 - 108 mmHg 09/24/2023 12:25 AM CDT [facility] HCO3, ARTERIAL 27 21 - 28 mmol/L 09/24/2023 12:25 AM CDT [facility] BASE EXCESS, ARTERIAL 0.6 -2.0 - 3.0 09/24/2023 12:25 AM CDT [facility] O2 SATURATION, ARTERIAL 100(H) 94 - 98 % 09/24/2023 12:25 AM CDT [facility] INSPIRED O2 95 09/24/2023 12:25 AM CDT [facility] Comment:Unit of Measure: Lit ers (L) if <=20; Percent (%) if >20 PATIENT TEMPERATURE 36.9 Degrees C 09/24/2023 12:25 AM CDT [facility] Blood ARTERIAL BLOOD SPECIMEN / Unknown Arterial / Unknown 09/24/2023 12:16 AM CDT 09/24/2023 12:21 AM CDT Gregorio Elizabeth MD CHEMISTRY Performing Organization Address [facility] de Phone Number [facility] SENDOUT INTERNAL ZIP [phone] [place] [phone] * SCAN-CARDIAC STRIP (09/24/2023 12:00 AM CDT) Scanner OTHER * Thrombin Time - Immediate Postop (09/23/2023 9:45 PM CDT) Only the most recent of2 resultswithin the time period is included. THROMBIN TIME 15 <16 sec 09/23/2023 10:37 PM CDT [facility] Blood BLOOD SPECIMEN / Unknown Non-Lab Venipuncture / Unknown 09/23/2023 9:45 PM CDT 09/23/2023 9:55 PM CDT Gregorio Elizabeth MD HEMATOLOGY Performing Organization Address City/[facility]/ZIP Co de Phone Number [facility] SENDOUT INTERNAL ZIP [phone] [place] [address] * (ABNORMAL) APTT - Immediate Postop (09/23/2023 9:45 PM CDT) Only the most recent of15 resultswithin the time period is included. APTT 23(L) 28 - 36 sec 09/23/2023 10:37 PM CDT [facility] Blood BLOOD SPECIMEN / Unknown Non-Lab Venipuncture / Unknown 09/23/2023 9:45 PM CDT 09/23/2023 9:55 PM CDT Narrative [facility] - 09/23/2023 10:37 PM CDT Therapeutic Range: 57-87 seconds Gregorio Elizabeth MD HEMATOLOGY Performing Organization Address City/[facility]/ZIP Co de Phone Number [facility] SENDOUT INTERNAL ZIP [phone] [place] [phone] * (ABNORMAL) Fibrinogen, Quantitative - Immediate Postop (09/23/2023 9:45 PM CDT) Only the most recent of2 resultswithin the time period is included. Pathologist [facility] FIBRINOGEN,MOHIT NTITATIVE 453(H) 193 - 401 mg/dL 09/23/2023 10:37 PM CDT [facility] Blood BLOOD SPECIMEN / Unknown Non-Lab Venipuncture / Unknown 09/23/2023 9:45 PM CDT 09/23/2023 9:55 PM CDT Gregorio Elizabeth MD HEMATOLOGY [facility] SENDOUT INTERNAL ZIP [phone] [place] [address] * (ABNORMAL) CBC WITH AUTO DIFFERENTIAL (09/23/2023 8:05 PM CDT) Only the most recent of2 resultswithin the time period is included. WHITE BLOOD COUNT 7.2 4.5 - 11.0 thou/cu mm 09/23/2023 8:18 PM CDT [facility] RED BLOOD COUNT 3.61(L) 4.30 - 5.90 mil/cu mm 09/23/2023 8:18 PM CDT [facility] HEMOGLOBIN 11.0(L) 13.5 - 17.5 g/dL 09/23/2023 8:18 PM CDT [facility] HEMATOCRIT 31.7(L) 37.0 - 53.0 % 09/23/2023 8:18 PM CDT [facility] MCV 88 80 - 100 fL 09/23/2023 8:18 PM CDT [facility] MCH 30.5 26.0 - 34.0 pg 09/23/2023 8:18 PM T [facility] MCHC 34.7 32.0 - 36.0 g/dL 09/23/2023 8:18 PM T [facility] RDW 13.2 11.5 - 15.5 % 09/23/2023 8:18 PM T [facility] PLATELET COUNT 123(L) 140 - 440 thou/cu mm 09/23/2023 8:18 PM CDT [facility] MPV 10.0 6.5 - 11.0 fL 09/23/2023 8:18 PM CDT [facility] NRBC 0.0 % 09/23/2023 8:18 PM T [facility] ABS NRBC 0.0 thou /cu mm 09/23/2023 8:18 PM T [facility] % NEUT 90.3 % 09/23/2023 8:18 PM T [facility] % LYMPH 6.2 % 09/23/2023 8:18 PM T [facility] % MONO 1.5 % 09/23/2023 8:18 PM T [facility] % EOS 0.8 % 09/23/2023 8:18 PM T [facility] % BASO 0.6 % 09/23/2023 8:18 PM T [facility] % IMMATURE GRAN (METAS,MYELOS,MI OS) 0.6 % 09/23/2023 8:18 PM T [facility] ABSOLUTE NEUTROPHILS 6.5 1.7 - 7.0 thou/cu mm 09/23/2023 8:18 PM T [facility] ABSOLUTE LYMPHOCYTES 0.5(L) 0.9 - 2.9 thou/cu mm 09/23/2023 8:18 PM CDT [facility] ABSOLUTE MONOCYTES 0.1 <0.9 thou/cu mm 09/23/2023 8:18 PM T [facility] ABSOLUTE EOSINOPHILS 0.1 <0.5 thou/cu mm 09/23/2023 8:18 PM CDT [facility] ABSOLUTE BASOPHILS 0.0 <0.3 thou/cu mm 09/23/2023 8:18 PM CDT [facility] ABSOLUTE IMMATURE GRANULOCYTES(MET ,MYELOS,PROS) 0.0 <0.3 thou/cu mm 09/23/2023 8:18 PM CDT [facility] Blood BLOOD SPECIMEN / Unknown Non-Lab Venipuncture / Unknown 09/23/2023 8:05 PM CDT 09/23/2023 8:13 PM CDT Milly HOUSE [facility] SENDOUT [place]NAL ZIP [phone] [place] [address] * (ABNORMAL) Cardiac Thromboelastography (09/23/2023 8:05 PM CDT) Only the most recent of2 resultswithin the time period is included. DESTINI REASON Diffuse Cardiac Bleeding 09/23/2023 10:17 PM CDT [facility] INTEM CT 212(H) 122 - 208 s 09/23/2023 10:17 PM CDT [facility] INTEM CFT 71 45 - 110 s 09/23/2023 10:17 PM CDT [facility] INTEM ALPHA 75 70 - 81 ?? 09/23/2023 10:17 PM CDT [facility] INTEM A10 57 46 - 67 mm 09/23/2023 10:17 PM CDT [facility] INTEM A20 63 51 - 72 mm 09/23/2023 10:17 PM CDT [facility] INTEM MCF 64 51 - 72 mm 09/23/2023 10:17 PM CDT [facility] INTEM ML 7 % 09/23/2023 10:17 PM CDT [facility] INTEM LI30 99 % 09/23/2023 10:17 PM CDT [facility] EXTEM CT 108(H) 43 - 82 s 09/23/2023 10:17 PM CDT [facility] EXTEM CFT 81 48 - 127 s 09/23/2023 10:17 PM CDT [facility] EXTEM ALPHA 74 65 - 80 ?? 09/23/2023 10:17 PM CDT [facility] EXTEM A10 60 46 - 67 mm 09/23/2023 10:17 PM CDT [facility] EXTEM A20 66 50 - 70 mm 09/23/2023 10:17 PM CDT [facility] EXTEM MCF 66 52 - 70 mm 09/23/2023 10:17 PM CDT [facility] EXTEM ML 7 % 09/23/2023 10:17 PM CDT [facility] EXTEM LI30 100 % 09/23/2023 10:17 PM CDT [facility] FIBTEM CT 116 s 09/23/2023 10:17 PM CDT [facility] FIBTEM CFT 593 s 09/23/2023 10:17 PM CDT [facility] FIBTEM ALPHA 67 ?? 09/23/2023 10:17 PM CDT [facility] FIBTEM A10 20 7 - 24 mm 09/23/2023 10:17 PM CDT [facility] FIBTEM A20 22 7 - 24 mm 09/23/2023 10:17 PM CDT [facility] FIBTEM MCF 23 7 - 24 mm 09/23/2023 10:17 PM CDT [facility] FIBTEM ML 0 % 09/23/2023 10:17 PM CDT [facility] FIBTEM LI30 100 % 09/23/2023 10:17 PM CDT [facility] HEPTEM CT 248(H) 122 - 208 s 09/23/2023 10:17 PM CDT [facility] HEPTEM CFT 83 45 - 110 s 09/23/2023 10:17 PM CDT [facility] HEPTEM ALPHA 73 70 - 81 ?? 09/23/2023 10:17 PM CDT [facility] HEPTEM A10 51 mm 09/23/2023 10:17 PM CDT [facility] HEPTEM A20 53 51 - 72 mm 09/23/2023 10:17 PM CDT [facility] HEPTEM MCF 54 51 - 72 mm 09/23/2023 10:17 PM CDT [facility] HEPTEM ML 10 % 09/23/2023 10:17 PM CDT [facility] Blood BLOOD SPECIMEN / Unknown Non-Lab Venipuncture / Unknown 09/23/2023 8:05 PM CDT 09/23/2023 8:13 PM CDT Lily Tamieykluroddy AUTOMOTIVE UPHOLSTERER LEV JOSHISILVANOWendi [facility] SENDOUT INTERNAL ZIP [phone] [place] [address] * CVC TRIPLE LUMEN, HCHG STOPCOCK PR5, HCHG ANES US GUIDE FOR VASC ACCESS, HCHG TUBING PR1, HCHG TUBING PR5, HCHG TUBING PR1, HCHG CATH INFUSION PR30, HCHG ADPTR PR1, HCHG KIT MONITORING PR5, HCHG TUBING PR5, HCHG DRSG PR5, HCHG DRSG PR1, AHC AN INTRODUCER 2 LUMEN PERFORMABLE, HCHG KIT [...] ??Comment: Supplemental O2: supplemental oxygen. ??Comment:. Vessel Transplant Immunologist Additional supplies used to locate vessel: no [...] . Video documentation of the exam on [employer] PRECPB EXAM The ZACHARY probe was [...] exam unchanged from pre-CPB. Images saved to counter server. Teeth and oropharynx unchanged from pre-op. [...] >90 mL/min/1.7 3m2 09/22/2023 3:42 PM CDT [facility] Comment:As of 2021, eG FR is calculated by the CKD-EPI creatinine equation without race adjustment. ??eGFR can be influenced by muscle mass, exercise, and diet. ??The reported eGFR is an estimation only and is only applicable if the renal function is stable. CREATININE 1.13 0.70 - 1.20 mg/dL 09/22/2023 3:42 PM CDT [facility] Blood BLOOD SPECIMEN / Unknown Butterfly / Unknown 09/22/2023 3:12 PM CDT 09/22/2023 3:16 PM CDT Remi Chong NP CHEMISTRY Performing Organization Address [facility]/ZIP Co de Phone Number [facility] SENDOUT INTERNAL ZIP [phone] [place] [address] * RED BLOOD CELLS EA UNIT (09/22/2023 9:35 AM CDT) Only the most recent of2 resultswithin the time period is included. CROSSMATCH Compatible Compatible [facility] BLOOD BANK PRODUCT BLOOD TYPE O Rh Negative [facility] BLOOD BANK PRODUCT ID NUMBER [id number] [facility] BLOOD BANK PRODUCT STATUS /Relea sed [facility] BLOOD BANK PRODUCT DESCRIPTION RBC -1 LR [facility] BLOOD BANK PRODUCT CODE [id number] [facility] BLOOD BANK Remi Chong NP BLOOD BANK Performing Organization Address [facility]/ZIP Co de Phone Number [facility] BLOOD BANK [address] [place] [address] * EXTRA TUBE LAVENDER (09/22/2023 9:34 AM CDT) Blood BLOOD SPECIMEN / Unknown Extra Tube / Unknown 09/22/2023 9:34 AM CDT 09/22/2023 10:58 AM CDT Doctor Unknown LABORATORY Performing Organization Address [facility]/ZIP Co de Phone Number [facility] SENDOUT INTERNAL [facility] [phone] [place] [address] * RBC W TYPE AND SCREEN (09/22/2023 9:34 AM CDT) ABORH O Rh Negative 09/22/2023 11:35 AM CDT [facility] BLOOD BANK ANTIBODY SCREEN Negative Negative 09/22/2023 11:35 AM CDT [facility] BLO[facility] BANK SPECIMEN EXPIRATION DATE/TIME 09/25/23 23:59 09/22/2023 11:35 AM CDT [facility] Blood BLOOD SPECIMEN / Unknown Venipuncture / Unknown 09/22/2023 9:34 AM CDT 09/22/2023 10:49 AM CDT Remi Chong NP BLOOD BANK [facility] BLOOD BANK [address] [place] [phone] * SCAN-CARDIAC STRIP (09/22/2023 8:13 AM CDT) Scanner OTHER * HEMATOCRIT (09/22/2023 4:55 AM CDT) Only the most recent of4 resultswithin the time period is included. HEMATOCRIT 45.1 37.0 - 53.0 % 09/22/2023 5:21 AM CDT [facility] Blood BLOOD SPECIMEN / Unknown Venipuncture / Unknown 09/22/2023 4:55 AM CDT 09/22/2023 5:18 AM CDT Narrative [facility] - 09/22/2023 5:21 AM CDT Every morning while on IV heparin. Every morning while on IV heparin. Necessary every morning while on IV heparin. Wendy King DO HEMATOLOGY [facility] SENDOUT INTERNAL ZIP [phone] [place] [phone] * SCAN-CARDIAC STRIP (09/22/2023 1:22 AM CDT) [...] CDT 1. ?Cholelithiasis. 2. ?Please refer to wire saw operator's dictation for the cardiac CT report. Narrative 09/22/2023 3:42 PM CDT Results are automatically released to your [facility] account once available, in compliance with federal regulations. ??This means that you may see your results before your provider has had a chance to review them. ??Please allow 2-3 business days for your provider to comment on the results. CT ANGIOGRAM OF THE THORACIC AORTA, 09/20/2023 INDICATION: Pre-coronary artery bypass grafting. CONCLUSIONS: This is a dual read study - please review [facility] over-read below for incidental non cardiac [...] cc/sec, was performed on a ??[employer] CT scanner. The imaging protocol was individualized to minimize radiation exposure. The following ECG-gated acquisition protocol was used: High pitch prospective. ??Pulse range 300-300. Tube potential: 120 kV. Tube current: 5004 mAs. Total DLP: 1158 mGy*cm; mSv: 16.2; CTDI: 54.3. Image post processing was performed on a [employer] Workstation. Images were reconstructed at a slice [...] for incidental non-cardiac findings. Monique Finn MD [facility] AB/car For Patients: As a result of the Cures Act, medical imaging exams and procedure reports are released immediately into your electronic medical record. You may view this report before your referring provider. If you have questions, please contact your health care provider. EXAM: OVERREAD: DETAILED COGAN STATION RADIOLOGY EXTRACARDIAC OVERREAD OF CARDIAC CT LOCATION: [facility] MEDICAL IMAGING DATE: 09/20/2023 INDICATION: Preoperative [...] EXAM: US ARTERIAL UPPER EXTREMITY LEFT LOCATION: [facility] MEDICAL IMAGING DATE: 09/20/2023 INDICATION: Severe [...] EXAM: US ARTERIAL UPPER EXTREMITY LEFT LOCATION: [facility] MEDICAL IMAGING DATE: 09/20/2023 INDICATION: Severe [...] and fifth digits duringradial artery compression. Remi Chong NP US * US VEIN MAPPING [...] US VEIN MAPPING LOWER EXTREMITY BILATERAL LOCATION: [facility] MEDICAL IMAGING DATE: 09/20/2023 INDICATION: Graft [...] US VEIN MAPPING LOWER EXTREMITY BILATERAL LOCATION: [facility] MEDICAL IMAGING DATE: 09/20/2023 INDICATION: Graft [...] Li MD - 09/19/2023 5:59 PM CDT [facility] Cardiac Catheterization Report Name: JOSE GUADALUPE RIDLEY Event Date: 09/19/2023 17:17 Excellian ID #: [id number] JAKE #: [id number] Diagnostic Physician: KAMRAN LI [facility] Primary Marketing Operations Coordinator: RACHID MÉNDEZ Referring Physician: Date: 1960 Gender: [...] < 70 ;Triglycerides < 100 Consent & [place] Protocol The risks, benefits, and alternatives of the procedure were discussed withthe patient and written informed consent was obtained. [place] protocol was followed. TIME OUT conducted just prior tostarting procedure confirmed patient identity, site/side, procedure,patient position, and availability of correct equipment and implants (ifapplicable). Staff Name Title KAMRAN LI Diagnostic Marketing Operations Coordinator Rafaela Bailey RN Nurse Dang Ghosh RN [...] min Cumulative Air Kerma: 493 mGy DAP: 39954 mGy/cm2 Contrast: Omnipaque, 50 ml Visipaque 320, [...] healthcare professional providing the sedation ends personal [id number] time with the patient. The medications listed above were verbally ordered by me and read back tome as documented above. Refer to the procedure log report for additional case details. electronically signed on 09/19/2023 5:59:16 PM with status of Final Kamran Li MD [address], [place] [address] [place] [address] (p) [phone](f) Quentin Aiken MD CV IMAGING * ECHO TTE COMPLETE W CONTRAST (09/19/2023 10:48 AM CDT) EJECTION FRACTION 45-50% PROSOLV Anatomical Region Laterality Modality Ultrasound 09/19/2023 10:1 2 AM CDT Narrative 09/19/2023 11:[place] [address] Main: [email or web address] ? Transthoracic Echo Report KEYANA JOSE GUADALUPERAMAKRISHNA Caballero ID: [id number] Age: 63 : 1960 Ordering Provider: WENYD KING Exam Date: 09/19/2023 10:12 Gender: M Weigher Operator: [facility] Height: 71 in BSA: 2.57 m?? BP: 141 / 82 Weight: 318 lbs BMI: 44.4 kg/m?? HR: 85 Location: Inpatient (Portable) Rhythm: Normal Sinus Rhythm Procedure Components: 2D imaging with contrast, Color Doppler, Spectral Doppler Indications: Chest pain chest pressure chest tightening Technical Quality: Fair Contrast: Definity Constrast Dose (ml): 0.[address] [facility]#: [id number] Final Conclusion 1. Technically challenging echocardiogram. 2. [...] (r) ?4.49 mmHg Aortic Root ZScore: 0.00 Rusyt Major MD (Electronically Signed) [facility] Accredited Site Final Date: 19 September 2023 11:44 ICD-10 Codes: Procedure Note Rusty Major MD - 09/19/2023 [place] [address] Main: [email or web address] Transthoracic Echo Report JOSE GUADALUPE RIDLEY Federico ID: [id number] Age: 63 : 1960 Ordering Provider:WENDY KING Exam Date: 09/19/2023 10:12 Gender: M Weigher Operator: [facility] Height: 71 in BSA: 2.57 m?? BP: 141 / 82 Weight: 318 lbs BMI: 44.4 kg/m?? HR: 85 Location: Inpatient (Portable) Rhythm: Normal Sinus Rhythm Procedure Components: 2D imaging with contrast, Color Doppler, SpectralDoppler Indications: Chest pain chest pressure chest tightening Technical Quality: Fair Contrast: Definity Constrast Dose (ml): 0.[address] [facility]#: [id number] Final Conclusion 1. Technically challenging echocardiogram. 2. [...] ZScore: 0.00 Rusty Major MD (Electronically Signed) [facility] Accredited Site Final Date: 19 September 2023 [...] 6.5(H) <=6.4 % 09/18/2023 7:22 AM CDT [facility] Blood BLOOD SPECIMEN / Unknown Venipuncture / Unknown 09/18/2023 4:17 AM CDT 09/18/2023 4:27 AM CDT Narrative [facility] - 09/18/2023 7:22 AM CDT ? (<5.7%) ?Normal ? (5.7% to 6.4%) ? Indicates prediabetes ? (>=6.5%) ? Confirms diabetes Falsely low levels may be seen with: Recent Transfusion, Recent Significant Blood Loss, Hemolytic Diseases, or Falsely elevated levels may be seen with: Untreated Anemias, Splenectomy Wendy King DO CHEMISTRY [facility] SENDOUT INTERNAL ZIP [phone] [place] [address] * LIPID PANEL (09/18/2023 4:17 AM CDT) CHOLESTEROL,TOTAL 174 100 - 199 mg/dL 09/18/2023 4:54 AM CDT [facility] Comment: Cholesterol, Total Reference Ranges Desirable <200 mg/dL Borderline 200-239 mg/dL High >=240 mg/dL TRIGLYCERIDES 105 <150 mg/dL 09/18/2023 4:54 AM CDT [facility] HDL CHOLESTEROL 42 >40 mg/dL 4:54 AM CDT [facility] NON-HDL CHOLESTEROL 132 <145 mg/dl 09/18/2023 4:54 AM CDT [facility] CHOL/HDL RATIO 4.14 <4.50 09/18/2023 4:54 AM CDT [facility] LDL CHOLESTEROL 111 <=130 mg/dL 09/18/2023 4:54 AM CDT [facility] VLDL CHOLESTEROL 21 <=30 mg/dL 09/18/2023 4:54 AM CDT [facility] PROVIDER ORDERED STATUS RANDOM 09/18/2023 4:54 AM CDT [facility] Blood BLOOD SPECIMEN / Unknown Venipuncture / Unknown 09/18/2023 4:17 AM CDT 09/18/2023 4:27 AM CDT Wendy King DO CHEMISTRY [facility] SENDOUT INTERNAL ZIP [phone] [place], [place] [id number] * SCAN-CARDIAC STRIP (09/18/2023 3:10 AM CDT) Scanner OTHER * SCAN-CARDIAC STRIP (09/18/2023 12:00 AM CDT) Narrative 09/18/2023 12:00 AM CDT Ordered by an unspecified provider. Other Clinical Staff OTHER * (ABNORMAL) TROPONIN T (HS) ONE TIME (09/17/2023 9:52 PM CDT) TROPONIN T HS 156(H) 6-15 ng/L ng/L 09/17/2023 10:13 PM CDT [facility] Blood BLOOD SPECIMEN / Unknown Venipuncture / Unknown 09/17/2023 9:52 PM CDT 09/17/2023 9:53 PM CDT Pritesh Boyer MD CHEMISTRY [facility] [address] [phone] * (ABNORMAL) TROPONIN T (HS) ACUTE W/2HR REFLEX (09/17/2023 7:55 PM CDT) TROPONIN T HS 74(H) 6-15 ng/L ng/L 09/17/2023 8:29 PM CDT [facility] Blood BLOOD SPECIMEN / Unknown IV Start / Unknown 09/17/2023 7:55 PM CDT 09/17/2023 7:56 PM CDT Narrative [facility] - 09/17/2023 8:29 PM CDT hs-cTnT ([employer] [...] department patient population. Pritesh Boyer MD CHEMISTRY [facility] [address] [phone] * (ABNORMAL) COMP METABOLIC PANEL (09/17/2023 7:55 PM CDT) SODIUM 138 136 - 145 mmol/L 09/17/2023 8:29 PM [facility] POTASSIUM 4.5 3.5 - 5.1 mmol/L 09/17/2023 8:29 PM [facility] CHLORIDE 102 98 - 107 mmol/L 09/17/2023 8:29 PM [facility] CO2,TOTAL 27 22 - 29 mmol/L 09/17/2023 8:29 PM [facility] ANION GAP 9 5 - 18 09/17/2023 8:29 PM [facility] GLUCOSE 229(H) 70 - 99 mg/dL 09/17/2023 8:29 PM [facility] CALCIUM 9.2 8.8 - 10.2 mg/dL 09/17/2023 8:29 PM [facility] BUN 17 8 - 23 mg/dL 09/17/2023 8:29 PM [facility] CREATININE 0.93 0.70 - 1.20 mg/dL 09/17/2023 8:29 PM [facility] BUN/CREAT RATIO 18 10 - 20 8:29 PM [facility] eGFR >90 >90 mL/min/1.7 3m2 09/17/2023 8:29 PM [facility] Comment:As of 2021, eG FR is calculated by the CKD-EPI creatinine equation without race adjustment. ??eGFR can be influenced by muscle mass, exercise, and diet. ??The reported eGFR is an estimation only and is only applicable if the renal function is stable. ALBUMIN 3.9(L) 4.0 - 4.9 g/dL 09/17/2023 8:29 PM CDT [facility] PROTEIN,TOTAL 7.2 6.0 - 8.0 g/dL 09/17/2023 8:29 PM CDT [facility] BILIRUBIN,TOTAL 0.5 0.0 - 1.2 mg/dL 09/17/2023 8:29 PM CDT [facility] ALK PHOSPHATASE 114 40 - 129 IU/L 09/17/2023 8:29 PM CDT [facility] ALT (SGPT) 30 10 - 50 IU/L 09/17/2023 8:29 PM CDT [facility] AST (SGOT) 37 10 - 50 IU/L 09/17/2023 8:29 PM CDT [facility] Blood BLOOD SPECIMEN / Unknown IV Start / Unknown 09/17/2023 7:55 PM CDT 09/17/2023 7:56 PM CDT Pritesh Boyer MD CHEMISTRY [facility] [address] [id number] * (ABNORMAL) REFERRAL SUSCEPTIBILITY (09/02/2023 8:26 AM CDT) CULTURE RESULT(A) 09/07/2023 10:49 AM CDT [facility] CULTURE Streptococcus dysgalactiae (Beta Strep group C or G) 09/07/2023 10:49 AM CDT [facility] Other (Left ankle) [...] G) CLARITHROMYCIN S Doctor Unknown MICROBIOLOGY [facility] [address] [place] [id number], from Last 3 Months Advance Directives * [...] Code Status Discussion: Not Discussed Care Teams Parts Department Supervisor Relationship Specialty Start Date End Date Munir Sahu MD [address] [place] [address] PCP - General Family Practice 09/17/23 [facility] [address] [place] [id number] 09/28/23
== END 2023-10-21 07:48 | disposition home or self-care (01) ==
LOC: WOUND 07:48
PROVIDERS: PCP Family Medicine; Visit Provider Nurse Practitioner Family
DX: I87.2 Venous insufficiency (chronic) (peripheral) (principal); E11.622 Type 2 diabetes mellitus with other skin ulcer; L97.322 Non-pressure chronic ulcer of left ankle with fat layer exposed; I89.0 Lymphedema, not elsewhere classified; S81.801A Unspecified open wound, right lower leg, initial encounter
CPT/HCPCS: 11042; 11045

== ENCOUNTER 2023-11-04 08:00 | Outpatient (CLI) | payer OTHER, SELFPAY ==
--- OUTSIDE RECORDS SUMMARY | 2023-11-08 11:28 | XMS_ITS | Data Portability ---
Author Organization [place] [facility] Address [address] [place] [address] Care Team Providers Care Air Twist Operator Name Role Phone GORDY SOL Primary Care Provider [phone] Assessment Encounter Date Assessment Date Assessment LastModified by Organization Details LastModified Time 11/21/2019 11/21/2019 59M with [id number] [place] 3+4=7 prostate cancer s/p RALP. Discussed pathology, risk of recurrence, need for ongoing PSA monitoring. Small anastomotic leak, will cont Choi x 1 more week. Worsened LE edema, likely chronic, but will check LE u/s to be sure no DVT. [email or web address] Not available 11/21/2019 14:07:03 01/02/2020 01/02/2020 59M with [id number] [place] 3+4=7 prostate cancer s/p RALP. 1) Prostate cancer - f/u 4 months with PSA 2) EVETTE, moderate - cont Kegels - consider PFPT 3) ED - Cialis PRN [email or web address] Not available 01/02/2020 09:34:03 05/01/2020 05/01/2020 60M with [id number] [place] 3+4=7 prostate cancer s/p RALP 6 months ago. MICHAEL. 1) Prostate cancer - f/u 6 months with PSA 2) EVETTE, moderate - cont Kegels - consider PFPT 3) ED - Cialis PRN [email or web address] Not available 05/01/2020 10:47:29 10/24/2020 10/24/2020 60M with [id number] [place] 3+4=7 prostate cancer s/p RALP 1 year [...] floor therap y referr al 2020 021 [facility], [address], [facility] [address], [place], [address], 09:57:49 Procedures None record ed. Surgeries None record ed. Imaging None record ed. Medication Orders None record ed. Patient TargetsNo targets recorded. Patient Instructions Encounter Date Encounter Id Patient Instructions Last Modified By Organization Details Last Modified Time 11/28/2019 [id number] To follow up sumaya Doshi at his [...] Not Available [facility] [address], [place], [address], 05/01/2020 10:40:29 02/11/2020 lab* PSA <0.04 normal Not Available Not Available 01/07/2020 12:33:24 01/02/2020 PSA, serum or plasm a PSA, Total <0.04 ng/Ml Not Available [facility] [address], [place], [address], 01/02/2020 09:14:10 10/25/19 21 10/24/2020 PSA, serum or plasm a PSA, Total <0.04n g/mL Not Available [facility] [address], [place], [address], 10/24/2020 10:45:30 11/23/19 20 11/21/2019 CT, pelvi s, w/o contr ast No observ ation record ed. cedric Not Available 11/29/19 17:13:18 Result Notes None recorded. Problems Name Status Onset Date Resolution Date Notes Provider Name and Address Organization Details Recorded Time Carcinoma of prostate Active 11/21/19 20 Caroline kruger [facility] 11/21/2019 10:59:25 Male urinary stress incontinence Active 05/01/19 21 Momo edlacruz MD, PHD [address] [place] [address], [phone], [facility] 05/01/2020 10:47:38 Primary erectile dysfunction Active 05/01/19 21 Momo delacruz MD, PHD [address] [place] [address], [phone], [facility] 05/01/2020 10:47:58 Problem Notes None recorded. Procedures Surgical History Date Name Laterality Status Provider Name and Address Organization Details Recorded Time 10/25/19 21 Blood Draw/[employer]/PSA RESULTS completed Momo baez MD, PHD [address] [place] [address], [phone], [facility] 10/24/2020 10:45:26 05/01/19 21 Blood Draw/[employer]/PSA RESULTS completed Momo baez MD, PHD [address] [facility],[address], [place], [address], [facility] 05/01/2020 10:40:25 01/02/20 20 Blood Draw/[employer]/PSA RESULTS completed Janice Ayala [facility] 01/02/2020 09:14:04 11/28/19 20 Choi Catheter Removal completed Caroline Smith [facility] 02/04/2020 12:00:10 Prostatectomy completed Momo baez MD, PHD [address] [facility],[address], [address], [facility] 10/24/2020 10:44:48 colonoscopy completed Monica Awan [facility], [facility] 12/09/2020 10:47:07 Imaging Results Imaging Date Name Status LastModified by Organiz ation Details LastModified Time 11/21/2019 CT, pelvis, w/o contrast completed cedric Information not available 11/29/2019 17:13:18 Procedure Notes None recorded. Medical Equipment None Reported. Allergies Allergen ID Allergen Name Allergen Category Reaction Reaction Severity Criticality Documentation Date Start Date Code Code System Note Provider Name and Address Organization Details Recorded Time 190332 silver medicatio n Not available Not available Not available 11/21/2019 11150 43 RxNorm Caroline Smith [facility] 0 11:09:54 318105 adhesive tape environme nt,medica tion Not available Not available Not available 11/21/2019 Caroline Smith [facility] 0 11:10:01 Medications Name Sig Start Date [...] Updated DateTime 01/02/2020 180.34 cm 39.3 kg/m2 416665.05 g Caroline Rojasyoandy [facility] 01/02/2020 09:09:40 Date Recorded Body height Body mass index (BMI) Body weight Provider Name and Address Organization Details Last Updated DateTime 05/01/2020 180.34 cm 39.3 kg/m2 556236.05 g Momo baez MD, PHD [address] [place] [address] 05/01/2020 10:39:59 Date Recorded Body height Body mass index (BMI) Body weight Provider Name and Address Organization Details Last Updated DateTime 10/24/2020 180.34 cm 39.7 kg/m2 364783.83 g Momo baez MD, PHD [address] [place] [address] 10/24/2020 10:44:13 Date Recorded Body height Body mass index (BMI) Body weight Provider Name and Address Organization Details Last Updated DateTime 11/21/2019 180.34 cm 39.3 kg/m2 853072.05 g Caroline Rojasyoandy [facility] 11/21/2019 11:09:04 Social History Question Answer Notes LastModified by Organizat ion Details LastModified Time Tobacco Smoking Status Never Smoker Caroline kruger [facility] 11/21/2019 11:10:15 What Is Your Level [...] Encounter Closed Date Diagnosis/Indication Diagnosis SNOMED-CT Code [id number] Momo delacruz MD, PHD [facility] [facility] [address] [place] [address] 11/21/2019 10:45:55 11/21/2019 15:00:28 Malignant tumor of prostate [id number] Caroline Gneiting [facility] [address] [place] [address] 11/28/2019 09:57:13 02/06/2020 03:54:17 [id number] Momo delacruz MD, PHD [facility] [address] [place] [address] 01/02/2020 08:46:59 01/02/2020 14:22:16 Malignant tumor of prostate 034821302 [id number] Momo delacruz MD, PHD [facility] [address] [place] [address] 05/01/2020 09:26:51 05/01/2020 12:03:29 Malignant tumor of prostate 299546455 Primary er ectile dysfunction 434731082 [id number] Momo delacruz MD, PHD [facility] [address] [place] [address] 10/24/2020 10:28:04 10/27/2020 16:45:05 Carcinoma of prostate 020474186 Malignant tumor of prostate 964780901 Primary er ectile dysfunction 405566959 Male urina ry stress incontinence 478522139 Health Concerns Section Related Observation LastModified by Organization Detai ls LastModified Time None Recorded Concern Status LastModified by Organization Details LastModified Time None Recorded Advance Directives Directive None Recorded Payers Encounter Date Sequence Insurance Name Policy Number Policy Archibald Covered Member ID Archibald Member ID Guarantor Name 11/21/2019 1 [facility] [id number] Julien Ridley [id number] Julien Ridley 11/28/2019 1 [facility] [id number] Julien Ridley [id number] Julien Ridley 01/02/2020 1 [facility] [id number] Julien Ridley [id number] Julien Ridley 05/01/2020 1 [facility] [id number] Julien Ridley [id number] Julien Ridley 10/24/2020 1 [facility] [id number] Julien Ridley [id number] Julien Ridley Notes Date Note Type Note Provider Name and Address Organization Details Recorded Time 11/21/2019 text/html HPI Notes: 59M s /p RALP 11/06/19 for [id number] [place] 3+4=7 prostate cancer (0/12 LN, -SMS) Overall doing well. Some drainage umbilical incision. Chronic LE edema worse especially R>L. Some hematuria when having BMs. No fever. Eating ok. Minimal pain. CT Cystogram today: small anastomotic leak PSA (07/27/19): 6.5 CONSTANZA: cT1c, 35g (J Carlos) MRI: none Biopsy (08/30/19): 23g, 3/12 cores (LLM, LMB, LMM [place] 3+4=7 up to 40%) Pre-op ED: 05/09 Momo Holliday MD, PHD [address] [facility],[address], [place], [address], [facility] 11/21/2019 14:07:42 01/02/2020 text/html HPI Notes: 59M with [id number] [place] 3+4=7 prostate cancer (0/12 LN, -SMS) s/p RALP 11/06/19. Small anastomotic leak, catheter removed 11/28/19. Overall doing well. C/o some leakage with BMs and position changes. Uses multiple depends per day...... LE u/s to eval for dvt last visit was negative PSA Results 07/27/19: 6.5 01/02/20: <0.04 UF: 07/07 EF: / Pre-op EF: / Momo Holliday MD, PHD [address] [place] [address],[address], [address], [facility] 01/02/2020 09:35:54 05/01/2020 text/html HPI Notes: 60M with [id number] [place] 3+4=7 prostate cancer (0/12 LN, -SMS) s/p RALP 11/06/19. Small anastomotic leak, catheter removed 11/28/19. Overall doing well. C/o some leakage with BMs and position changes. Uses 4ppd which is improvement. No problems with incisions. PSA Results 07/27/19: 6.5 01/02/20: <0.04 05/01/20: <0.04 UF: 3/5 EF: 5/5 Pre-op EF: 2/5 Momo Holliday MD, PHD [address] [place] [address],[address], [address], [facility] 05/01/2020 10:48:15 10/24/2020 text/html HPI Notes: 60M with [id number] [place] 3+4=7 prostate cancer (0/12 LN, -SMS) s/p RALP 11/06/19 Overall doing well. C/o some leakage with BMs and position changes and sexual activity. Uses 4ppd still. No problems with incisions. PSA Results 07/27/19: 6.5 01/02/20: <0.04 05/01/20: <0.04 10/24/20: <0.04 UF: 3/5 EF: 5/5 Pre-op EF: 2/5 Momo Holliday MD, PHD [address] [place] [address],[address] [place] [address], [phone], [facility] 10/24/2020 11:30:55
--- OUTSIDE RECORDS SUMMARY | 2023-11-08 11:28 | XMS_ITS | Referral Summary ---
Author Organization [facility] Address [address] [place] [address] Care Team Providers Care Senior Java Web Application Developer Name Role Phone Munir Sahu MD Primary Care Provider [phone] Allergies Active Allergy Reactions Criticality Noted Date [...] Advance Directives For more information, please contact: [phone] * Full Code (Latest Code Status on File) Date Activated Date Inactivated Comments 11/06/2019 2:19 PM 11/07/2019 9:06 PM All basic and advanced life-sustaining interventions are performed as appropriate Question Answer Comments Code status determined by: Unable to det ermine; FULL CODE until documents or legal decision maker available Care Teams Senior Java Web Application Developer Relationship Specialty Start Date End Date Munir Sahu MD PCP - General Family Practice 10/22/19
--- OUTSIDE RECORDS SUMMARY | 2023-11-08 11:28 | XMS_ITS | Clinical Summary ---
Author Organization [facility] Address [address] [place] [address] Care Team Providers Care Blast Furnace Auxiliaries Supervisor Name Role Phone Munir Sahu MD [...] Advance Directives For more information, please contact: [phone] * Full Code (Latest Code Status on File) Date Activated Date Inactivated Comments 11/06/2019 2:19 PM 11/07/2019 9:06 PM All basic and advanced life-sustaining interventions are performed as appropriate Question Answer Comments Code status determined by: Unable to det ermine; FULL CODE until documents or legal decision maker available Care Teams Bl[employer] Furnace Auxili[employer] Supervisor Relationship Specialty Start Date End Date Munir Sahu MD PCP - General Family Practice 10/22/19
--- OUTSIDE RECORDS SUMMARY | 2023-11-08 11:29 | XMS_ITS | Encounter Summary ---
Author Organization [facility] Address [address] [place] [address] Care Team Providers Care Knitter Machine Name Role Phone Elsewhere, Pcp Primary Care Provider Unavailabl e Reason for Visit * Reason Comments Weakness - Generalized Hyperglycemia Encounter Details Date Type Department Care Team (Late st Contact Info) Description 10/26/2023 10:48 PM CDT - 10/26/2023 11:59 PM CDT Emergency [facility] [address] [place] [phone] Hyperglycemia (Primary Dx) Discharge Disposition: Home or Self Care Social History Tobacco Use Types Packs/Day Years Used Date Smoking Tobacco: Never Smokeless Tobacco: Never Nutrition Answer Date Recorded Nutrition: EVOO Fat Source Unknown 06/04 Nutrition: Servings of Fruits/Vegetables per Day Not on file 06/04/2020 Dental Answer Date Recorded Dental: Regular Dentist Unknown 06/05/19 21 Sex and Gender Information Value Date Recorded Sex Assigned at Not on file Gender Identity Not on file Sexual Orientation Not on file documented as of this encounter Medications at Time of Discharge Medication Sig Dispensed Refills Start Date End Date acetaminophen (TYLENOL) 325 mg tablet Take 975 mg by mouth. 11/07/2019 blood-glucose meter kit Use to test blood glucose 4 times daily. 09/22/2017 elastic bandage bandage 12 10/03/2017 FreeStyle João 14 Day [place] misc 02/17/2021 FreeStyle João 14 Day Sensor kit 02/18/2021 metFORMIN XR (GLUCOPHAGE-XR) 500 mg 24 hr tablet Take 1,000 mg by mouth. 09/23/2017 tadalafiL (CIALIS, ADCIRCA) 20 mg tablet tadalafil 20 mg tablet torsemide (DEMADEX) 5 mg tablet 10 mg. 09/29/2017 zinc oxide 20 % ointment 12 10/03/2017 documented as of this encounter Plan of Treatment Not on file documented as of this encounter Visit Diagnoses Diagnosis Hyperglycemia- Primary documented in this encounter Care Teams Knitter Machine Relationship Specialty Start Date End Date Elsewhere, Pcp PCP - General Family Medicine 06/15/17 documented as of this encounter
--- OUTSIDE RECORDS SUMMARY | 2023-11-08 11:29 | XMS_ITS | Clinical Summary ---
Author Organization [employer] [facility] s [facility] Address [place], [place] [address] Care Team Providers Care Housing Officer Name Role Phone Munir Sahu MD Primary Care Provider + [facility], [place] Unavailable [phone] Allergies Active Allergy Reactions Criticality Noted Date [...] by insurance) 9 mL 09/28/2023 Active Insulin [place], Disposable, (Susana Pen Needle) 32 gauge x 5/32 Use as directed to inject insulin. Remove the 2 covers on the insulin pen needle before administering insulin dose. 100 Each 09/28/2023 Active acetaminophen (TYLENOL) 325 mg tabletIndications :NSTEMI (non-ST elevated myocardial infarction) (HC) Take 2 Tablets (650 mg) by mouth every 4 hours if needed for Pain (For mild pain.). Max acetaminophen dose: 4000mg in 24 hrs. 09/28/2023 Active Additional Information Patient taking differently:650 mg Oral Q 4H PRN, Pain, For mild pain., Max acetaminophen dose: 4000mg in 24 hrs.,Indications: pain, Reported on 10/28/2023 empagliflozin (Jardiance) 10 mg tabletIndications :Type 2 diabetes mellitus with complication (HC) Take 1 Tablet (10 mg) by mouth once daily. 30 Tablet 09/28/2023 Active atorvastatin (LIPITOR) 80 mg tabletIndications :CAD, multiple vessel,NSTEMI (non-ST elevated myocardial infarction) (HC) Take 1 Tablet (80 mg) by mouth at bedtime. 90 Tablet 3 10/20/2023 Active valsartan (DIOVAN) 40 mg tabletIndications [...] once daily in the morning. 90 Tablet 3 10/20/2023 Active nitroglycerin (NITROSTAT) 0.4 mg sublingual tabletIndications :CAD, multiple vessel Place 1 Tablet (0.4 mg) under the tongue every 5 minutes if needed for Chest pain 1st choice. Up to 3 tablets in 15 minutes. 25 Tablet 3 10/20/2023 Active amLODIPine (NORVASC) 5 mg tabletIndications :Essential hypertension Take 1 Tablet (5 mg) by mouth once daily. 30 Tablet 1 10/28/2023 Active atorvastatin (LIPITOR) 80 mg tabletIndications :CAD, multiple vessel,Type 2 diabetes mellitus with complication (HC) Take 1 Tablet (80 mg) by mouth at bedtime. 30 Tablet 09/28/2023 4 Discontinu ed(Reorder (E-cancel not sent)) clopidogreL (PLAVIX) [...] Active Problems Problem Noted Date Diagnosed Date Coronary artery disease invo lving la posta coronary artery without angina pectoris 10/28/2023 Overview: 10/28/23: Coronary angiogram and successful planned PCI of distal RCA with SAMANTHA x 1 and POBA of ostial RPDA CAD, multiple vessel 09/26/2023 S/p 3V CABG [...] Encounters Date Type Department Care Team Description 11/08/2023 Home Care Visit [facility] [address] [place] [address] Tyson Mejias, PT CARE COORDINATION 11/07/2023 8:15 AM CDT Home Care Visit [facility] [address] [place] [phone] Tyson Mejias, PT PT - INITIAL ASSESSMENT 11/07/2023 7:30 AM CDT Home Care Visit [facility]ly [facility] [address] [place] [address] Lexi Esteves, CHITRA SN - HOME VISIT 11/04/2023 Home Care Visit [facility] [address] [place] [address] Elvira Reyes RN CARE COORDINATION 11/04/2023 Telephone [facility] [address] [facility] [address] [place] [address] Gregorio Olivia MD Medication Management (amlodipine) 11/02/2023 8:30 AM CDT Home Care Visit [facility] [address] [place] [phone] Nohemy Anna LPN COLD REDUCTION ROLLER - HOME VISIT 10/31/2023 3:00 PM CDT Home Care Visit [facility] [address] [place] [phone] Evie Young RN SN - HOME VISIT 10/31/2023 Procedure Only [facility] [address] [facility] [address] [place] [phone] Device Check (Remote Leadless Pacemaker Ca... 10/28/2023 5:20 AM CDT - 10/28/2023 1:20 PM CDT Hospital Encounter [facility] [address] [place] [address] Kamran Li MD Essential hypertension (Primary Dx); CAD, multiple vessel; S/p 3V CABG (SHER-LAD, LISA-ramus, radial-OM), 09/23/2023 Discharge Disposition: Home Self Care 10/28/2023 Home Care Visit [facility] [address] [place] [phone] Elvira Reyes RN CARE TRANSITION NOTE 10/28/2023 Travel 10/27/2023 8:30 AM CDT Home Care Visit [facility] [address] [place] [address] Elvira Reyes RN SN - HOME VISIT 10/26/2023 10:48 PM CDT - 10/27/2023 12:53 AM CDT Emergency [facility] [address] [place] [address] Misha Styles III, MD Insomnia, unspecified type (Primary Dx); Anxiety Discharge Disposition: Home Self Care 10/26/2023 Travel 10/24/2023 9:00 AM CDT Home Care Visit [facility] [address] [place] [address] Elvira Reyes, RN SN - HOME VISIT 10/21/2023 Home Care Visit [facility] [address] [place] [address] Elvira Reyes RN CARE COORDINATION 10/21/2023 Telephone [facility] [address] [place] [address] Quentin iAken MD Pre Procedure 10/21/2023 Telephone [facility] [address] [place] [address] Jen Greenberg NP Results 10/20/2023 1:50 PM CDT Orders Only [facility] [address] [place] [address] Lab 10/20/2023 1:00 PM CDT Office Visit [facility] [address] [place] [address] Jen Greenberg NP Follow Up (3-4 weeks for post-op CABGsternal [...] 10/19/2023 7:45 AM CDT Home Care Visit [facility] [address] [place] [address], [place] [address] Elvira Reyes RN SN - HOME VISIT 10/17/2023 5:00 AM CDT Home Care Visit [facility] [address] [place] [address], [place] [address] Isa Cintron, CHITRA SN - HOME VISIT 10/14/2023 11:30 AM CDT Home Care Visit [facility] [address] [place] [address], [place] [address] Lavern Madrid RN SN - MISSED VISIT 10/12/2023 10:00 AM CDT Home Care Visit [facility] [address] [place] [phone] Elvira Reyes RN SN - HOME VISIT 10/10/2023 9:45 AM CDT Home Care Visit [facility] [address] [place] [phone] Elvira Reyes RN SN - HOME VISIT 10/07/2023 8:00 AM CDT Home Care Visit [facility] [address] [place] [phone] Elvira Reyes RN SN - HOME VISIT 10/05/2023 12:30 PM CDT Home Care Visit [facility] [address] [place] [phone] Elvira Reyes RN SN - HOME VISIT 10/04/2023 2:00 PM CDT Procedure Only [facility] 225 [facility] [address] [place] [phone] 398 Device Check (IN CLINIC [employer] LEADLESS... 10/04/2023 Travel 10/03/2023 7:00 AM CDT Home Care Visit [facility] [address] [place] [phone] Lexi Esteves RN SN - HOME VISIT 10/03/2023 1:00 AM CDT Home Care Visit [facility] [address] [place] [address] Ailyn Varghese, RN SN - WOUND/OSTOMY CHART CONSULT 10/03/2023 Telephone [facility] [address] [place] [address] Ailyn Varghese, dental intern (Vascular and or Wound clinic referral is needed. Supplies with [employer]) 09/30/2023 9:30 AM CDT Home Care Visit [facility] [address] [place] [address] Lexi Esteves RN SN - OASIS START OF CARE 09/30/2023 Plan of Care Documentation [facility] [address] [place] [address] 09/28/2023 Orders Only [facility] 225 [facility] [address] [place] [address] Alejandra Lau PA <No scans attached> 09/23/2023 2:03 PM CDT Anesthesia Event [address] [address] Marylou De Anda MD Ludwig, Margaret J, CLOTH WORKER 09/23/2023 12:45 PM CDT - 09/23/2023 8:02 PM CDT Surgery [address] [address] Gregorio Olivia MD CORONARY ARTERY BYPASS X 3 WITH RADIAL HARVEST, AND TEMP VENTRICULAR PACING WIRES 09/18/2023 2:58 AM CDT - 09/28/2023 2:30 PM CDT Hospital Encounter [address] [address] [facility], [facility] Hospitalist SvWendy Cruz DO Kroschel, MD Cristal Gallardo, Munir Muhammad MD S/p 3V CABG (SHER-LAD, LISA-ramus, radial-OM), 09/23/2023 (Primary Dx); Ulcer of left lower extremity with fat layer exposed (HC) [L97.922]; NSTEMI (non-ST elevated myocardial infarction) (HC); CAD, multiple vessel; Type 2 diabetes mellitus with complication (HC); Essential hypertension Discharge Disposition: Home Health 09/17/2023 7:43 PM CDT - 09/18/2023 1:46 AM CDT Emergency [facility] [address] [place] [address] Pritesh Boyer MD NSTEMI (non-ST elevated myocardial infarction) (HC) (Primary Dx) Discharge Disposition: Health Care Facility Not On List 09/17/2023 Telephone [facility] [address] [place], [place] [phone] Guzman Lovelace MD 09/17/2023 Travel 09/05/2023 Lab Requisition [facility] [phone] Unknown, Doctor from Last 3 Months Family [...] Sign Reading Time Taken Comments Blood Pressure 116/60 11/07/2023 8:25 AM CDT Pulse 94 11/07/2023 9:09 AM CDT Temperature 36.1 ??C (97 ??F) 11/07/2023 8:2 5 AM CDT Respiratory Rate 18 11/07/2023 8:25 AM CDT Oxygen Saturation 98% 11/07/2023 9:0 9 AM CDT after ambulation and stairs Inhaled Oxygen Concentration - - Weight 128.8 kg (284 lb) 11/07/2023 8:2 5 AM CDT Height 180.3 cm (5' 11) 10/28/2023 7:3 1 AM CDT Body Mass Index 39.61 10/28/2023 7:31 AM CDT Plan of Treatment Upcoming Encounters Date Type Department Care Team (Late st Contact Info) Description 11/09/2023 4:00 AM CDT Home Care Visit [address] [phone] Elvira Reyes RN [address] [place] [address] 11/10/2023 8:00 AM CDT Home Care Visit [address] [phone] Tyson Mejias, PT [address] [place] [address] 11/14/2023 4:00 AM CDT Home Care Visit [address] [phone] Elvira eRyes RN [address] [place] [address] 11/15/2023 3:00 AM CDT Home Care Visit [address] [address] Tyson Mejias, PT [address] [place] [address] 11/16/2023 4:00 AM CDT Home Care Visit [address] [phone] Elvira Reyes RN [address] [place] [address] 11/17/2023 4:00 AM CDT Home Care Visit [address] [address] Tyson Mejias, PT [address] [place] [address] 11/21/2023 4:00 AM CDT Home Care Visit [address] [phone] Elvira Reyes RN [address], [place] [address] 11/22/2023 3:00 AM CDT Home Care Visit [address] [address] Tyson Mejias, PT [address] [place] [address] 11/23/2023 4:00 AM CDT Home Care Visit [address] [phone] Elvira Reyes RN [address], [place] [address] 11/24/2023 4:00 AM CDT Home Care Visit [address] [address] Tyson Mejias, PT [address] [place] [address] 11/28/2023 4:00 AM CDT Appointment [address] [address] Elvira Reyes RN [address] [place] [address] 12/13/2023 1:30 PM CDT Office Visit [facility] [address] [place] [address] Kamran Li MD [address] [place], [place] [phone] 12/13/2023 2:30 PM CDT Office Visit [facility] [address] [place] [address] Quentin Aiken MD [address] [place] [address] 02/27/2024 Procedure Only [facility] [address] [place] [address] Health Maintenance Due Date Last Done Comments [...] Date/Time Associated Diagnosis Comments GLUCOSE METER Timed 10/28/2023 10:59 AM CDT SCAN-CARDIAC STRIP 10/28/2023 10:55 AM CDT EKG 12 LEAD Routine 10/28/2023 10:33 AM CDT HCHG ACTIVATED CLOTTING TM CV Timed 10/28/2023 8:56 AM CDT CVL PCI ONLY Routine 10/28/2023 8:19 AM CDT BASIC METABOLIC PANEL STAT 10/28/2023 6:35 AM CDT CBC W PLT NO DIFF STAT 10/28/2023 6:3 5 AM CDT URINALYSIS MICROSCOPIC STAT 11:46 PM CDT UA W/ SEDIMENT EXAM REFLEXED PER CRITERIA STAT 10/26/2023 11:46 PM CDT EKG 12 LEAD STAT 10/26/2023 11:34 PM CDT CBC WITH AUTO DIFFERENTIAL STAT 10/26/2023 11:29 PM CDT BASIC METABOLIC PANEL STAT 10/26/2023 11:29 PM CDT CBC WITH AUTO DIFFERENTIAL STAT 10/26/2023 11:29 PM CDT GLUCOSE METER Routine 10/26/2023 10:52 PM CDT CBC W PLT NO DIFF Routine 10/20/2023 [...] THROMBIN TIME STAT 09/23/2023 8:05 PM CDT [facility]CHG CATH INFUSION PR70 Routine 09/23/19 4:34 PM CDT HCHG KIT PR5 Routine 09/23/2023 4:34 PM CDT C AN INTRODUCER 2 LUMEN PERFORMABLE Routine 09/23/2023 4:34 PM CDT HCHG DRSG PR1 Routine 09/23/2023 4:34 PM CDT HCHG DRSG PR5 Routine 09/23/2023 4:34 PM CDT [...] 2:38 PM CDT ENDOSCOPIC HARVEST VEIN 09/23/19 24 1:33 PM CDT Case Notes AVERAGE T/FPERFUSION-Confirmed w/Shayna for 1315 #[id number] EK 6/20OR STAFF BYPASS CORONARY ARTERY 01 2023 1:33 PM CDT Case Notes AVERAGE T/FPERFUSION-Confirmed w/Shayna for 1315 #[id number] EK 6/20OR STAFF GLUCOSE METER Timed 09/23/2023 [...] RED BLOOD CELLS EA UNIT STAT 09/22/19 24 9:35 AM CDT RED BLOOD CELLS EA [...] AM CDT HEMOGLOBIN A1C SCREENING Early AM 4:17 AM CDT LIPID PANEL Early AM [...] 3 Months Results * (ABNORMAL) GLUCOSE METER (10/28/2023 10:59 AM CDT) Only the most recent of53 resultswithin the time period is included. [facility] GLUCOSE METER 135(H) 65 - 100 mg/dL 10/28/2023 10:[address] [facility] Blood BLOOD SPECIMEN / Unknown 10/28/2023 10:59 AM CDT 10/28/2023 10:59 AM CDT Kamran Li MD CHEMISTRY [facility] SENDOUT INTERNAL ZIP [id number] [place] [address] * SCAN-CARDIAC STRIP (10/28/2023 10:55 AM CDT) Scanner OTHER * EKG 12 LEAD (10/28/2023 10:33 AM CDT) Only the most recent of9 resultswithin the time period is included. Pathologist [facility] Interpretation Sinus rhythm with 1st degree A-V block Otherwise normal ECG When compared with ECG of 26-Oct-2023 23:34, No significant change was found BEYOND NOW Ventricular Rate 74 BPM BEYOND NOW Atrial Rate 74 BPM BEYOND NOW P-R Interval 270 ms BEYOND NOW QRS Duration 96 ms BEYOND NOW QT 426 ms BEYOND NOW QTc 472 ms BEYOND NOW P Robert Lee 56 degrees BEYOND NOW R Robert Lee 45 degrees BEYOND NOW T Robert Lee 70 degrees BEYOND NOW 10/28/2023 10:3 3 AM CDT 10/28/2023 11:07 AM CDT Kamran Li MD EKG ORD BEYOND NOW [place], [place] * (ABNORMAL) ACTIVATED CLOTTING TIME [id number] ACT (10/28/2023 8:56 AM CDT) ACTIVATED CLOTTING TIME, POCT 304(H) 74 - 125 sec 10/28/2023 12:[address] [facility] Blood BLOOD SPECIMEN / Unknown 10/28/2023 8:56 AM CDT 10/28/2023 12:18 PM CDT Kamran Li MD HEMATOLOGY [facility] SENDOUT INTERNAL ZIP [id number] [place] [address] * CVL PCI ONLY (10/28/2023 8:19 AM CDT) Anatomical Region Laterality Modality X-Ray Angiograph y 10/28/2023 8:19 AM CDT Narrative Transcriptions Kamran iL MD - 10/28/2023 9:33 AM CDT [facility] Cardiac Catheterization Report Name: JOSE GUADALUPE RIDLEY Event Date: 10/28/2023 08:19 [facility] ID #: [id number] JAKE #: [id number] Diagnostic Physician: KAMRAN LI [facility] Interventional Physician: KAMRAN LI [facility] Referring Physician: GREGORIO OLIVIA Date: 1960 Gender: Male Age: 63 Summary/Conclusions PRESENTATION / INDICATIONS * Elective -planned staged intervention to distal RCA VASCULAR ACCESS * Using ultrasound guidance and a percutaneous technique, the right commonfemoral artery was accessed. Ultrasound was used to confirm vesselpatency, localizing needle into the lumen of the vessel. An image wassaved for the medical record. DIAGNOSTIC - CORONARY * Right dominant coronary artery system * The left main artery was normal in appearance and free of obstructivedisease. * 80% stenosis in the proximal Ramus * 70% stenosis in the ostial Circumflex * The LAD is severely diseased, as is origin of diagonal. Not well-seendue to competitive flow on the study * 80% stenosis in the distal RCA * 80% stenosis in the proximal OFE DIAGNOSTIC - GRAFTS * The SHER to the LAD is patent * The free LISA graft (which is anastomosed end to side to the SHER and tothe diagonal) to the diagonal is patent. * The radial artery graft to the 3rd obtuse marginal is patent. However,the diameter of the graft is diffusely small. This may partially be dueto spasm which was seen at the time of surgery. Also patient exhibitedsignificant spasm in the ostial right in response to catheterengagement. INTERVENTION * Successful stenting (drug eluting) of the distal right coronary artery-3.5 x 22 mm stent postdilated to 14 ann marie * Successful angioplasty of the ostial posterior descending artery RECOMMENDATIONS & PLAN * Optimize risk factors and medications: HDL > 45 ; LDL < 70 ;Triglycerides < 100 * Plavix for 1 year minimum - Recommend 2 years or longer if tolerating *Will plan for outpatient stress test prior to my follow-up with him in afew *Will add amlodipine to his medical regimen to inhibit spasm of the radialgraft. Consent & [place] Protocol The risks, benefits, and alternatives of the procedure were discussed withthe patient and written informed consent was obtained. [place] protocol was followed. TIME OUT conducted just prior tostarting procedure confirmed patient identity, site/side, procedure,patient position, and availability of correct equipment and implants (ifapplicable). Staff Name Title KAMRAN LI Environmental Health Specialist Rafaela Bailey RN Nurse Hung Oviedo RTR Machelle Adler RTR Monitor Jimmie Merino CVT Undercar Specialist Procedures ? US Guided Access ? Coronary Angiography ? Drug Eluting Stent - Distal RCA [PCI] ? PTCA - Ostial R PDA [PCI] Diagnostic Findings * Right Coronary Artery ? 80% stenosis in the Distal RCA. The lesion has a VLADIMIR flow of 3. ? 70% stenosis in the Right PDA. The lesion has a VLADIMIR flow of 3. Lesion Information Lesion # Vessel Segment Lesion Length Lesion Details 2 Right PDA 1 Distal RCA Hemodynamics State: Baseline Pressures (mmHg) Site Systolic Diastolic End Diastolic A Wave V Wave Mean AO 118 71 87 Interventional Results * Right Coronary Artery ? Intervention to the Distal RCA 80% lesion with a final stenosis of 0%using a Drug Eluting Stent. The final VLADIMIR flow was 3. ? Intervention to the Right PDA 70% lesion with a final stenosis of 40%using a Balloon. The final VLADIMIR flow was 3. Interventional Devices Lesion # Vessel Segment Type Name Max Pressure 2 Right PDA Balloon Euphora Rx 2.5 x 15mm 1 Distal RCA Drug Eluting Stent Rosalio Comal 3.50 x 22mm Procedure Details Estimated Blood Loss: < 30 ml Specimen Collected: None Level of Sedation Achieved: Moderate Procedure Start: 08:19 Procedure End: 09:22 Procedure Time: 63 min Fluoroscopy Time: 16.2 min Cumulative Air Kerma: 1697 mGy DAP: 98895 mGy/cm2 Contrast: Omnipaque, 230 ml Physiologic Data Weight: 128.8 kg BSA: 2.44 m2 Vascular Access Time Access Sheath Size 08:21 Percutaneous Puncture to RFA Complications ? No Complications Medications Ordered and Administered Start Time Stop Time Medication Dose Units Route Ordered By Given By 08:05 Fentanyl 50 mcg IV Kamran Li Kendra RN 08:05 Versed (midazolam) 1 mg IV Kamran Li Kendra RN 08:15 Fentanyl 25 mcg IV Kamran Li Kendra RN 08:15 Versed (midazolam) 1 mg IV Kamran Li Kendra RN 08:21 Lidocaine 1% 10 ml Subcut Kamran Li Thomas A 08:24 Fentanyl 25 mcg IV Kamran Li Kendra RN 08:24 Versed (midazolam) 0.5 mg IV Kamran Li Kendra RN 08:28 Versed (midazolam) 0.5 mg IV Kamran Li Kendra RN 08:37 Fentanyl 25 mcg IV Kamran Li Kendra RN 08:37 Versed (midazolam) 0.5 mg IV Kamran Li Kendra RN 08:39 Heparin 82481 units IV Kamran Li Kendra RN 08:44 Nitroglycerin 300 mcg IC Kamran Li Thomas A 08:45 0.9% NaCL 500 ml Unknown Kamran Li Kendra RN 08:51 Versed (midazolam) 0.5 mg IV Kamran Li Kendra RN 09:00 Fentanyl 25 mcg IV Kamran Li Kendra RN 09:00 Versed (midazolam) 0.5 mg IV Kamran Li Kendra RN 09:08 Fentanyl 50 mcg IV Kamran Li Kendra RN I personally monitored the patient?s conscious sedation during theprocedure. Conscious sedation starts with the first sedation medication dose ofFentanyl or Versed and ends when the procedure is completed, the patientis stable for recovery status, and the physician or other qualified healthcare professional providing the sedation ends personal fmigjkdbrbfono-ic-peyo time with the patient. The medications listed above were verbally ordered by me and read back tome as documented above. Refer to the procedure log report for additional case details. electronically signed on 10/28/2023 9:33:27 AM with status of Final Kamran Li MD [address], [place] [address] [place] [address] (p) [phone](f) Alejandra FAJARDO CV IMAGING * (ABNORMAL) CBC with Platelets no Differential (10/28/2023 6:35 AM CDT) Only the most recent of5 resultswithin the time period is included. WHITE BLOOD COUNT 5.9 4.5 - 11.0 thou/cu mm 10/28/2023 6:[address] [facility] RED BLOOD COUNT 4.27(L) 4.30 - 5.90 mil/cu mm 10/28/2023 6:[address] [facility] HEMOGLOBIN 12.6(L) 13.5 - 17.5 g/dL 10/28/2023 6:[address] [facility] HEMATOCRIT 38.9 37.0 - 53.0 % 10/28/2023 6:52 AM [facility] MCV 91 80 - 100 fL 10/28/2023 6:[address] [facility] MCH 29.5 26.0 - 34.0 pg 10/28/2023 6:[address] [facility] MCHC 32.4 32.0 - 36.0 g/dL 10/28/2023 6:[address] [facility] RDW 14.6 11.5 - 15.5 % 10/28/2023 6:[address] [facility] PLATELET COUNT 193 140 - 440 thou/cu mm 10/28/2023 6:[address] [facility] MPV 9.6 6.5 - 11.0 fL 10/28/2023 6:52 AM [facility] NRBC 0.0 % 10/28/2023 6:52 AM [facility] ABS NRBC 0.0 thou /cu mm 10/28/2023 6:52 AM [facility] Blood BLOOD SPECIMEN / Unknown Venipuncture / Unknown 10/28/2023 6:35 AM CDT 10/28/2023 6:45 AM CDT Gregorio Elizabeth MD HEMATOLOGY [facility] SENDOUT INTERNAL ZIP [id number] [place] [address] * (ABNORMAL) Basic Metabolic Panel (10/28/2023 6:35 AM CDT) Only the most recent of14 resultswithin the time period is included. SODIUM 139 136 - 145 mmol/L 10/28/2023 7:19 AM [facility] POTASSIUM 3.8 3.5 - 5.1 mmol/L 10/28/2023 7:19 AM [facility] CHLORIDE 102 98 - 107 mmol/L 10/28/2023 7:19 AM [facility] CO2,TOTAL 25 22 - 29 mmol/L 10/28/2023 7:19 AM [facility] ANION GAP 12 5 - 18 10/28/2023 7:19 AM [facility] GLUCOSE 158(H) 70 - 99 mg/dL 10/28/2023 7:19 AM [facility] CALCIUM 9.4 8.8 - 10.2 mg/dL 10/28/2023 7:19 AM [facility] BUN 19 8 - 23 mg/dL 10/28/2023 7:19 AM [facility] CREATININE 0.97 0.70 - 1.20 mg/dL 10/28/2023 7:19 AM [facility] BUN/CREAT RATIO 20 10 - 20 7:19 AM [facility] eGFR 88(L) >90 mL/min/1.7 3m2 10/28/2023 7:19 AM [facility] Comment:As of 2021, eG FR is calculated by the CKD-EPI creatinine equation without race adjustment. ??eGFR can be influenced by muscle mass, exercise, and diet. ??The reported eGFR is an estimation only and is only applicable if the renal function is stable. Blood BLOOD SPECIMEN / Unknown Venipuncture / Unknown 10/28/2023 6:35 AM CDT 10/28/2023 6:45 AM CDT Gregorio Elizabeth MD CHEMISTRY [facility] SENDOUT INTERNAL ZIP [phone] [place], [place] [id number] * URINALYSIS MICROSCOPIC (10/26/2023 11:46 PM CDT) RBC None Seen 0-2, None Seen /HPF 10/26/2023 11:55 PM [facility] WBC 0-2 0-2, 3-5, None Seen /HPF 10/26/2023 11:55 PM [facility] BACTERIA Rare None Seen, Rare, Few Bacteria/H PF 10/26/2023 11:55 PM [facility] EPITHELIAL CELLS Few None Seen, Few Epi/HPF 10/26/2023 11:55 PM [facility] Urine URINE SPECIMEN / Unknown Non-Blood / Unknown 10/26/2023 11:46 PM CDT 10/26/2023 11:49 PM CDT Misha Styles III, MD URINE [facility] [address] [address] * (ABNORMAL) Urinalysis w Reflex Microscopic if Positive (10/26/2023 11:46 PM CDT) COLOR Yellow Yellow Color 10/26/2023 11:52 PM [facility] CLARITY Clear Clear Clarity 10/26/2023 11:52 PM [facility] SPECIFIC GRAVITY,URINE 1.020 1.010, 1.015, 1.020, 1.025 10/26/2023 11:52 PM [facility] PH,URINE 6.0 6.0, 7.0, 8.0, 5.5, 6.5, 7.5, 8.5 10/26/2023 11:52 PM [facility] UROBILINOGEN, QUALITATIVE Normal Normal EU/dl 10/26/2023 11:52 PM [facility] PROTEIN, URINE Negative Negative mg/dL 10/26/2023 11:52 PM [facility] GLUCOSE, URINE >=1000(A) Negative mg/dL 10/26/2023 11:52 PM [facility] KETONES,URINE Negative Negative mg/dL 10/26/2023 11:52 PM [facility] BILIRUBIN,URI NE Negative Negative 10/26/2023 11:52 PM [facility] OCCULT BLOOD,URINE Negative Negative 10/26/2023 11:52 PM [facility] NITRITE Negative Negative 10/26/2023 11:52 PM [facility] LEUKOCYTE ESTERASE Negative Negative 10/26/2023 11:52 PM [facility] Urine URINE SPECIMEN / Unknown Non-Blood / Unknown 10/26/2023 11:46 PM CDT 10/26/2023 11:49 PM T Misha Styles III, MD URINE [facility] [address] [place] [address] * (ABNORMAL) CBC WITH AUTO DIFFERENTIAL (10/26/2023 11:29 PM [facility]) Only the most recent of3 resultswithin the time period is included. WHITE BLOOD COUNT 6.5 4.5 - 11.0 thou/cu mm 10/26/2023 11:40 PM [facility] RED BLOOD COUNT 4.13(L) 4.30 - 5.90 mil/cu mm 10/26/2023 11:40 PM [facility] HEMOGLOBIN 12.3(L) 13.5 - 17.5 g/dL 10/26/2023 11:40 PM [facility] HEMATOCRIT 39.2 37.0 - 53.0 % 10/26/2023 11:40 PM [facility] MCV 95 80 - 100 fL 10/26/2023 11:40 PM [facility] MCH 29.8 26.0 - 34.0 pg 10/26/2023 11:40 PM [facility] MCHC 31.4(L) 32.0 - 36.0 g/dL 10/26/2023 11:40 PM [facility] RDW 14.7 11.5 - 15.5 % 10/26/2023 11:40 PM [facility] PLATELET COUNT 179 140 - 440 thou/cu mm 10/26/2023 11:40 PM [facility] MPV 9.4 6.5 - 11.0 fL 10/26/2023 11:40 PM [facility] % NEUT 64.9 % 10/26/2023 11:40 PM [facility] % LYMPH 14.5 % 10/26/2023 11:40 PM [facility] % MONO 8.6 % 10/26/2023 11:40 PM [facility] % EOS 11.7 % 10/26/2023 11:40 PM [facility] % BASO 0.3 % 10/26/2023 11:40 PM [facility] ABSOLUTE NEUTROPHILS 4.2 1.7 - 7.0 thou/cu mm 10/26/2023 11:40 PM CDT [facility] ABSOLUTE LYMPHOCYTES 0.9 0.9 - 2.9 thou/cu mm 10/26/2023 11:40 PM CDT [facility] ABSOLUTE MONOCYTES 0.6 <0.9 thou/cu mm 10/26/2023 11:40 PM CDT [facility] ABSOLUTE EOSINOPHILS 0.8(H) <0.5 thou/cu mm 10/26/2023 11:40 PM CDT [facility] ABSOLUTE BASOPHILS 0.0 <0.3 thou/cu mm 10/26/2023 11:40 PM CDT [facility] Blood BLOOD SPECIMEN / Unknown Venipuncture / Unknown 10/26/2023 11:29 PM CDT 10/26/2023 11:31 PM CDT Misha Styles III, MD HEMATOLO GY [facility] [address] [address] * SCAN-CARDIAC STRIP (09/28/2023 8:00 AM CDT) Scanner OTHER * PLATELET COUNT (09/28/2023 4:53 AM CDT) Only the most recent of10 resultswithin the time period is included. PLATELET COUNT 239 140 - 440 thou/cu mm 09/28/2023 5:[address] [facility] MPV 9.2 6.5 - 11.0 fL 09/28/2023 5:[address] [facility] Blood BLOOD SPECIMEN / Unknown Venipuncture / Unknown 09/28/2023 4:53 AM CDT 09/28/2023 5:21 AM CDT Sandhya FAJARDO HEMATOLOGY [facility] SENDOUT INTERNAL ZIP [phone] [place] [address] * WHITE BLOOD COUNT (09/28/2023 4:53 AM CDT) Only the most recent of4 resultswithin the time period is included. WHITE BLOOD COUNT 7.3 4.5 - 11.0 thou/cu mm 09/28/2023 5:[address] [facility] NRBC 0.0 % 09/28/2023 5:[address] [facility] ABS NRBC 0.0 thou /cu mm 09/28/2023 5:[address] [facility] Blood BLOOD SPECIMEN / Unknown Venipuncture / Unknown 09/28/2023 4:53 AM CDT 09/28/2023 5:21 AM CDT Sandhya FAJARDO HEMATOLOGY [facility] SENDOUT INTERNAL ZIP [address] [place] [address] * (ABNORMAL) HEMOGLOBIN (09/28/2023 4:53 AM CDT) Only the most recent of10 resultswithin the time period is included. HEMOGLOBIN 11.6(L) 13.5 - 17.5 g/dL 09/28/2023 5:[address] [facility] MCV 91 80 - 100 fL 09/28/2023 5:[address] [facility] Blood BLOOD SPECIMEN / Unknown Venipuncture / Unknown 09/28/2023 4:53 AM CDT 09/28/2023 5:21 AM CDT Sandhya FAJARDO HEMATOLOGY [facility] SENDOUT INTERNAL ZIP [address] [place] [address] * SCAN-CARDIAC STRIP (09/27/2023 7:43 PM CDT) Scanner OTHER * ECHO TTE LIMITED W CONTRAST W COLOR W DOPPLER (09/27/2023 12:26 PM CDT) EJECTION FRACTION 55% PROSOLV Anatomical Region Laterality Modality Ultrasound 09/27/2023 11:3 8 AM CDT Narrative 09/27/2023 12:43 [place] [address] Main: [email or web address] ? 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 [...] 4.93 mmHg Rusty Major MD (Electronically Signed) [facility] Accredited Site Final Date: 27 September 2023 12:41 ICD-10 Codes: Ramandeep Luanne Chong NP ECHO ORD * POTASSIUM (09/27/2023 12:12 PM CDT) Only the most recent of4 resultswithin the time period is included. POTASSIUM 4.6 3.5 - 5.1 mmol/L 09/27/2023 12:[address] [facility] Blood BLOOD SPECIMEN / Unknown Butterfly / Unknown 09/27/2023 12:12 PM CDT 09/27/2023 12:28 PM CDT Gregorio Elizabeth MD CHEMISTRY [facility] SENDOUT INTERNAL ZIP [phone] [place] [address] * SCAN-CARDIAC STRIP (09/27/2023 8:00 AM CDT) [...] CHEST 2 VIEWS PA AND LATERAL LOCATION: [facility] DATE: 09/27/2023 INDICATION: Post Pacemaker [...] CHEST 2 VIEWS PA AND LATERAL LOCATION: [facility] DATE: 09/27/2023 INDICATION: Post Pacemaker [...] Juanito Romeo MD ? 09/26/2023 ??5:44 PM [facility] Electrophysiology Laboratory Leadless Pacemaker (AV Micra) Procedure [...] procedure. Attending Signature: Juanito Romeo M.D. Cardiac Loan Review Officer [facility] Manan Steele NP AUTOMOTIVE SALES ASSOCIATE ORD * EP PPM (09/26/2023 4:54 PM CDT) Anatomical Region Laterality Modality Other 09/26/2023 4:54 PM CDT Manan Steele NP CV IMAGING * SCAN-CARDIAC STRIP (09/26/2023 8:36 AM CDT) Scanner OTHER * (ABNORMAL) Protime-INR (09/26/2023 5:26 AM CDT) Only the most recent of7 resultswithin the time period is included. INR 1.2 <1.3 09/26/2023 5:[address] [facility] PROTIME 13.3(H) 10.3 - 12.3 sec 09/26/2023 5:[address] [facility] Blood BLOOD SPECIMEN / Unknown Venipuncture / Unknown 09/26/2023 5:26 AM CDT 09/26/2023 5:[address] [facility] - 09/26/2023 5:38 AM CDT [...] Gregorio Elizabeth MD HEMATOLOGY Performing Organization Address [facility] Co de Phone Number [facility] SENDOUT INTERNAL ZIP [phone] [place] [address] * SCAN-PACER (09/26/2023 12:00 AM CDT) Narrative 09/26/2023 12:00 AM CDT Ordered by an unspecified provider. Other Clinical Staff OTHER * SCAN-CARDIAC STRIP (09/25/2023 8:00 AM CDT) Scanner OTHER * MAGNESIUM (09/25/2023 5:07 AM CDT) Only the most recent of8 resultswithin the time period is included. MAGNESIUM 2.1 1.6 - 2.4 mg/dL 09/25/2023 5:[address] [facility] Blood BLOOD SPECIMEN / Unknown Non-Lab Venipuncture / Unknown 09/25/2023 5:07 AM CDT 09/25/2023 5:15 AM CDT Gregorio Elizabeth MD CHEMISTRY Performing Organization Address [facility]/ZIP Co de Phone Number [facility] SENDOUT INTERNAL ZIP [phone] [place] [address] * SCAN-CARDIAC STRIP (09/24/2023 11:32 PM CDT) [...] EXAM: XR CHEST 1 VIEW PORTABLE LOCATION: [facility] DATE: 09/24/2023 INDICATION: ET tube placement COMPARISON: 09/23/2023 Procedure Note So, Guanakito Pelaez MD - 09/24/2023 For Patients: As a result of the s Act, medical imagingexams and procedure reports are released immediately into your electronicmedical record. You may view this report before your referring provider.If you have questions, please contact your health care provider. EXAM: XR CHEST 1 VIEW PORTABLE LOCATION: [facility] DATE: 09/24/2023 INDICATION: ET [...] - 1.27 mmol/L 09/24/2023 4:[address] [facility] Blood BLOOD SPECIMEN / Unknown Non-Lab Venipuncture / Unknown 09/24/2023 4:20 AM CDT 09/24/2023 4:32 AM CDT Gregorio Elizabeth MD CHEMISTRY [facility] SENDOUT INTERNAL ZIP [address] [address] [place] [address] * (ABNORMAL) Arterial Blood Gas (09/24/2023 12:16 AM CDT) PH, ARTERIAL 7.33(L) 7.35 - 7.45 09/24/2023 12:[address] [facility] PCO2, ARTERIAL 52(H) 35 - 48 mmHg 09/24/2023 12:[address] [facility] PO2, ARTERIAL 164(H) 83 - 108 mmHg 09/24/2023 12:[address] [facility] HCO3, ARTERIAL 27 21 - 28 mmol/L 09/24/2023 12:[address] [facility] BASE EXCESS, ARTERIAL 0.6 -2.0 - 3.0 09/24/2023 12:[address] [facility] O2 SATURATION, ARTERIAL 100(H) 94 - 98 % 09/24/2023 12:[address] [facility] INSPIRED O2 95 09/24/2023 12:[address] [facility] Comment:Unit of Measure: Lit ers (L) if <=20; Percent (%) if >20 PATIENT TEMPERATURE 36.9 Degrees C 09/24/2023 12:[address] [facility] Blood ARTERIAL BLOOD SPECIMEN / Unknown Arterial / Unknown 09/24/2023 12:16 AM CDT 09/24/2023 12:21 AM CDT Gregorio Elizabeth MD CHEMISTRY Performing Organization Address [facility] Co de Phone Number [facility] SENDOUT INTERNAL ZIP [phone] [place] [address] * SCAN-CARDIAC STRIP (09/24/2023 12:00 AM CDT) Scanner OTHER * Thrombin Time - Immediate Postop (09/23/2023 9:45 PM CDT) Only the most recent of2 resultswithin the time period is included. THROMBIN TIME 15 <16 sec 09/23/2023 10:[address] [facility] Blood BLOOD SPECIMEN / Unknown Non-Lab Venipuncture / Unknown 09/23/2023 9:45 PM CDT 09/23/2023 9:55 PM CDT Gregorio Elizabeth MD HEMATOLOGY Performing Organization Address [facility] Co de Phone Number [facility] SENDOUT INTERNAL ZIP [phone] [place] [address] * (ABNORMAL) APTT - Immediate Postop (09/23/2023 9:45 PM CDT) Only the most recent of15 resultswithin the time period is included. APTT 23(L) 28 - 36 sec 09/23/2023 10:[address] [facility] Blood BLOOD SPECIMEN / Unknown Non-Lab Venipuncture / Unknown 09/23/2023 9:45 PM CDT 09/23/2023 9:[address] [facility] - 09/23/2023 10:37 PM CDT Therapeutic Range: 57-87 seconds Gregorio Elizabeth MD HEMATOLOGY Performing Organization Address [facility]/ZIP Co de Phone Number [facility] SENDOUT INTERNAL ZIP [phone] [place] [address] * (ABNORMAL) Fibrinogen, Quantitative - Immediate Postop (09/23/2023 9:45 PM CDT) Only the most recent of2 resultswithin the time period is included. FIBRINOGEN,MOHIT NTITATIVE 453(H) 193 - 401 mg/dL 09/23/2023 10:[address] [facility] Blood BLOOD SPECIMEN / Unknown Non-Lab Venipuncture / Unknown 09/23/2023 9:45 PM CDT 09/23/2023 9:55 PM CDT Gregorio Elizabeth MD HEMATOLOGY [facility] SENDOUT INTERNAL ZIP [phone] [place] [address] * (ABNORMAL) Cardiac Thromboelastography (09/23/2023 8:05 PM CDT) Only the most recent of2 resultswithin the time period is included. DESTINI REASON Diffuse Cardiac Bleeding 09/23/2023 10:[address] [facility] INTEM CT 212(H) 122 - 208 s 09/23/2023 10:[address] [facility] INTEM CFT 71 45 - 110 s 09/23/2023 10:[address] [facility] INTEM ALPHA 75 70 - 81 ?? 09/23/2023 10:[address] [facility] INTEM A10 57 46 - 67 mm 09/23/2023 10:[address] [facility] INTEM A20 63 51 - 72 mm 09/23/2023 10:[address] [facility] INTEM MCF 64 51 - 72 mm 09/23/2023 10:[address] [facility] INTEM ML 7 % 09/23/2023 10:[address] [facility] INTEM LI30 99 % 09/23/2023 10:[address] [facility] EXTEM CT 108(H) 43 - 82 s 09/23/2023 10:[address] [facility] EXTEM CFT 81 48 - 127 s 09/23/2023 10:[address] [facility] EXTEM ALPHA 74 65 - 80 ?? 09/23/2023 10:[address] [facility] EXTEM A10 60 46 - 67 mm 09/23/2023 10:[address] [facility] EXTEM A20 66 50 - 70 mm 09/23/2023 10:[address] [facility] EXTEM MCF 66 52 - 70 mm 09/23/2023 10:[address] [facility] EXTEM ML 7 % 09/23/2023 10:[address] [facility] EXTEM LI30 100 % 09/23/2023 10:[address] [facility] FIBTEM CT 116 s 09/23/2023 10:[address] [facility] FIBTEM CFT 593 s 09/23/2023 10:[address] [facility] FIBTEM ALPHA 67 ?? 09/23/2023 10:[address] [facility] FIBTEM A10 20 7 - 24 mm 09/23/2023 10:[address] [facility] FIBTEM A20 22 7 - 24 mm 09/23/2023 10:[address] [facility] FIBTEM MCF 23 7 - 24 mm 09/23/2023 10:[address] [facility] FIBTEM ML 0 % 09/23/2023 10:[address] [facility] FIBTEM LI30 100 % 09/23/2023 10:[address] [facility] HEPTEM CT 248(H) 122 - 208 s 09/23/2023 10:[address] [facility] HEPTEM CFT 83 45 - 110 s 09/23/2023 10:[address] [facility] HEPTEM ALPHA 73 70 - 81 ?? 09/23/2023 10:[address] [facility] HEPTEM A10 51 mm 09/23/2023 10:[address] [facility] HEPTEM A20 53 51 - 72 mm 09/23/2023 10:[address] [facility] HEPTEM MCF 54 51 - 72 mm 09/23/2023 10:[address] [facility] HEPTEM ML 10 % 09/23/2023 10:[address] [facility] Blood BLOOD SPECIMEN / Unknown Non-Lab Venipuncture / Unknown 09/23/2023 8:05 PM CDT 09/23/2023 8:[address] [facility] SENDOUT INTERNAL ZIP [address] [address] [place] [address] * CVC TRIPLE LUMEN, HCHG STOPCOCK PR5, [...] ??Comment: Supplemental O2: supplemental oxygen. ??Comment:. Vessel Felt Dyeing Machine Tender Additional supplies used to locate vessel: no [...] . Video documentation of the exam on [employer] PRECPB EXAM The ZACHARY probe was [...] exam unchanged from pre-CPB. Images saved to linux server administrator. Teeth and oropharynx unchanged from pre-op. Probe removed intact without signs of damage. This exam supervised by Marylou De Anda MD Anesthesiologist ?? Marylou De Anda MD ANESTHESIA PX NOTE ORDERABLES * HCHG TUBE PR1, HCHG INSTRUMENT DISP PR10, HCHG STYLET PR1, HCHG MOUTHPIECE PR1 (09/23/2023 2:41 PM CDT) Narrative Valarie Saini CRNA - 09/23/2023 2:41 PM CDT Yeny Valarie Ennis CRNA ? 09/23/2023 ??2:41 PM Procedure: ETT [...] * (ABNORMAL) CREATININE (09/22/2023 3:12 PM CDT) [facility] eGFR 73(L) >90 mL/min/1.7 3m2 09/22/2023 3:[address] [facility] Comment:As of 2021, eG FR is calculated by the CKD-EPI creatinine equation without race adjustment. ??eGFR can be influenced by muscle mass, exercise, and diet. ??The reported eGFR is an estimation only and is only applicable if the renal function is stable. CREATININE 1.13 0.70 - 1.20 mg/dL 09/22/2023 3:[address] [facility] Blood BLOOD SPECIMEN / Unknown Butterfly / Unknown 09/22/2023 3:12 PM CDT 09/22/2023 3:16 PM CDT Ramandeep Chong NP CHEMISTRY Performing Organization Address City/[facility]/ZIP Co de Phone Number [facility] SENDOUT INTERNAL ZIP [phone] [place] [phone] * RED BLOOD CELLS EA UNIT (09/22/2023 9:35 AM CDT) Only the most recent of2 resultswithin the time period is included. CROSSMATCH Compatible Compatible [facility] BLOOD BANK PRODUCT BLOOD TYPE O Rh Negative [facility] BLOOD BANK PRODUCT ID NUMBER [id number] [facility] BLOOD BANK PRODUCT STATUS /Relea sed [facility] BLOOD BANK PRODUCT DESCRIPTION RBC -1 LR [facility] B[facility] PRODUCT CODE [id number] [facility] Ramandeep Chong NP BLOOD BANK Performing Organization Address [facility] Co de Phone Number [facility] BLOOD BANK [address] [place] [address] * EXTRA TUBE LAVENDER (09/22/2023 9:34 AM CDT) Blood BLOOD SPECIMEN / Unknown Extra Tube / Unknown 09/22/2023 9:34 AM CDT 09/22/2023 10:58 AM CDT Doctor Unknown LABORATORY Performing Organization Address City/[facility]/ZIP Co de Phone Number [facility] SENDOUT INTERNAL ZIP [phone] [place] [address] * RBC W TYPE AND SCREEN (09/22/2023 9:34 AM CDT) ABORH O Rh Negative 09/22/2023 11:[address] [facility] BLOOD BANK ANTIBODY SCREEN Negative Negative 09/22/2023 11:35 AM CDT [facility] B[facility] SPECIMEN EXPIRATION DATE/TIME 09/25/23 23:59 09/22/2023 11:35 AM CDT [facility] Blood BLOOD SPECIMEN / Unknown Venipuncture / Unknown 09/22/2023 9:34 AM CDT 09/22/2023 10:49 AM CDT Ramandeep Chong [facility] BLOOD BANK Performing Organization Address [facility] Co de Phone Number [facility] BLOOD BANK [address] [place] [address] * SCAN-CARDIAC STRIP (09/22/2023 8:13 AM CDT) Scanner OTHER * HEMATOCRIT (09/22/2023 4:55 AM CDT) Only the most recent of4 resultswithin the time period is included. HEMATOCRIT 45.1 37.0 - 53.0 % 09/22/2023 5:[address] [facility] Blood BLOOD SPECIMEN / Unknown Venipuncture / Unknown 09/22/2023 4:55 AM CDT 09/22/2023 5:[address] [facility] - 09/22/2023 5:21 AM CDT Every morning while on IV heparin. Every morning while on IV heparin. Necessary every morning while on IV heparin. Wendy King DO HEMATOLOGY Performing Organization Address City/[facility]/ZIP Co de Phone Number [facility] SENDOUT INTERNAL ZIP [phone] [place] [address] * SCAN-CARDIAC STRIP (09/22/2023 1:22 AM CDT) [...] CDT 1. ?Cholelithiasis. 2. ?Please refer to shipping lead's dictation for the cardiac CT report. Narrative 09/22/2023 3:42 PM CDT Results are automatically released to your [employer] ([employer]) account once available, in compliance with federal regulations. ??This means that you may see your results before your provider has had a chance to review them. ??Please allow 2-3 business days for your provider to comment on the results. CT ANGIOGRAM OF THE THORACIC AORTA, 09/20/2023 INDICATION: Pre-coronary artery bypass grafting. CONCLUSIONS: This is a dual read study - please review [facility] over-read below for incidental non cardiac [...] cc/sec, was performed on a ??[employer] SOMATOM Backyard CT scanner. The imaging protocol was individualized to minimize radiation exposure. The following ECG-gated acquisition protocol was used: High pitch prospective. ??Pulse range 300-300. Tube potential: 120 kV. Tube current: 5004 mAs. Total DLP: 1158 mGy*cm; mSv: 16.2; CTDI: 54.3. Image post processing was performed on a [employer] Workstation. Images were reconstructed at a slice [...] for incidental non-cardiac findings. Monique Finn MD [facility] AB/car For Patients: As a result of the Century Cures Act, medical imaging exams and procedure reports are released immediately into your electronic medical record. You may view this report before your referring provider. If you have questions, please contact your health care provider. EXAM: OVERREAD: DETAILED [facility] EXTRACARDIAC OVERREAD OF CARDIAC CT LOCATION: [facility] DATE: 09/20/2023 INDICATION: Preoperative aortic assessment. TECHNIQUE: Dose reduction techniques were used. COMPARISON: None. FINDINGS: LIMITED CHEST: Scattered mild atelectasis. LIMITED MEDIASTINUM: Cardiomegaly. No central pulmonary embolism. No bulky lymphadenopathy. LIMITED UPPER ABDOMEN: Cholelithiasis. 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 Ramandeep Chong NP CT * US ARTERIAL UPPER [...] EXAM: US ARTERIAL UPPER EXTREMITY LEFT LOCATION: [facility] DATE: 09/20/2023 INDICATION: Severe [...] For Patients: As a result of the s Act, medical imagingexams and procedure reports are released immediately into your electronicmedical record. You may view this report before your referring provider.If you have questions, please contact your health care provider. EXAM: US ARTERIAL UPPER EXTREMITY LEFT LOCATION: [facility] DATE: 09/20/2023 INDICATION: Severe [...] first and fifth digits duringradial artery compression. Ramandeep Chong NP US * US VEIN MAPPING [...] US VEIN MAPPING LOWER EXTREMITY BILATERAL LOCATION: [facility] DATE: 09/20/2023 INDICATION: Graft [...] US VEIN MAPPING LOWER EXTREMITY BILATERAL LOCATION: [facility] DATE: 09/20/2023 INDICATION: Graft [...] veins are patent, venous diameters as describedabove. Ramandeep Chong NP US * SCAN-CARDIAC STRIP (09/20/2023 [...] Li MD - 09/19/2023 5:59 PM CDT [facility] Cardiac Catheterization Report Name: JOSE GUADALUPE RIDLEY Event Date: 09/19/2023 17:17 Excellian ID #: [id number] JAKE #: [id number] Diagnostic Physician: KAMRAN LI [facility] Primary Security System Engineer: RACHID MÉNDEZ Referring Physician: Date: 1960 Gender: [...] < 70 ;Triglycerides < 100 Consent & [place] Protocol The risks, benefits, and alternatives of the procedure were discussed withthe patient and written informed consent was obtained. [place] protocol was followed. TIME OUT conducted just prior tostarting procedure confirmed patient identity, site/side, procedure,patient position, and availability of correct equipment and implants (ifapplicable). Staff Name Title KAMRAN LI Diagnostic Security System Engineer Rafaela Bailey RN Nurse Dang Ghosh RN [...] min Cumulative Air Kerma: 493 mGy DAP: 60640 mGy/cm2 Contrast: Omnipaque, 50 ml Visipaque 320, [...] healthcare professional providing the sedation ends personal [id number] time with the patient. The medications listed above were verbally ordered by me and read back tome as documented above. Refer to the procedure log report for additional case details. electronically signed on 09/19/2023 5:59:16 PM with status of Final Kamran Li MD [address], [place] [address] [place] [address] (p) [phone](f) Quentin Aiken MD CV IMAGING * ECHO TTE COMPLETE W CONTRAST (09/19/2023 10:48 AM CDT) EJECTION FRACTION 45-50% PROSOLV Anatomical Region Laterality Modality Ultrasound 09/19/2023 10:1 2 AM CDT Narrative 09/19/2023 11:44 [place] [address] Main: [email or web address] ? 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 BP: 141 / 82 Weight: 318 lbs BMI: 44.4 kg/m?? HR: 85 Location: Inpatient (Portable) Rhythm: Normal Sinus Rhythm Procedure Components: 2D imaging with contrast, Color Doppler, Spectral Doppler Indications: Chest pain chest pressure chest tightening Technical Quality: Fair Contrast: Definity Constrast Dose (ml): 0.3 [facility]#: [id number] Final Conclusion 1. Technically challenging echocardiogram. 2. 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 BP: 141 / 82 Weight: 318 lbs BMI: 44.4 kg/m?? HR: 85 Location: Inpatient (Portable) Rhythm: Normal Sinus Rhythm Procedure Components: 2D imaging with contrast, Color Doppler, SpectralDoppler Indications: Chest pain chest pressure chest tightening Technical Quality: Fair Contrast: Definity Constrast Dose (ml): 0.3 [facility]#: [id number] Final Conclusion 1. Technically challenging echocardiogram. 2. [...] ZScore: 0.00 Rusty Major MD (Electronically Signed) [facility] Accredited Site Final Date: 19 September 2023 [...] 6.5(H) <=6.4 % 09/18/2023 7:[address] [facility] Blood BLOOD SPECIMEN / Unknown Venipuncture / Unknown 09/18/2023 4:17 AM CDT 09/18/2023 4:[address] [facility] - 09/18/2023 7:22 AM CDT ? (<5.7%) ?Normal ? (5.7% to 6.4%) ? Indicates prediabetes ? (>=6.5%) ? Confirms diabetes Falsely low levels may be seen with: Recent Transfusion, Recent Significant Blood Loss, Hemolytic Diseases, or Falsely elevated levels may be seen with: Untreated Anemias, Splenectomy Wendy King DO CHEMISTRY [facility] [place]IP [address] [address] [place] [address] * LIPID PANEL (09/18/2023 4:17 AM CDT) CHOLESTEROL,TOTAL 174 100 - 199 mg/dL 09/18/2023 4:[address] [facility] Comment: Cholesterol, Total Reference Ranges Desirable <200 mg/dL Borderline 200-239 mg/dL High >=240 mg/dL TRIGLYCERIDES 105 <150 mg/dL 09/18/2023 4:[address] [facility] HDL CHOLESTEROL 42 >40 mg/dL 4:[address] [facility] NON-HDL CHOLESTEROL 132 <145 mg/dl 09/18/2023 4:[address] [facility] CHOL/HDL RATIO 4.14 <4.50 09/18/2023 4:[address] [facility] LDL CHOLESTEROL 111 <=130 mg/dL 09/18/2023 4:[address] [facility] VLDL CHOLESTEROL 21 <=30 mg/dL 09/18/2023 4:[address] [facility] PROVIDER ORDERED STATUS RANDOM 09/18/2023 4:[address] [facility] Blood BLOOD SPECIMEN / Unknown Venipuncture / Unknown 09/18/2023 4:17 AM CDT 09/18/2023 4:27 AM CDT Wendy King DO CHEMISTRY Performing Organization Address City/State/[facility] Co de Phone Number [facility] [place] INTER[place] ZIP [phone] [place] [address] * SCAN-CARDIAC STRIP (09/18/2023 3:10 AM CDT) Scanner OTHER * SCAN-CARDIAC STRIP (09/18/2023 12:00 AM CDT) Narrative 09/18/2023 12:00 AM CDT Ordered by an unspecified provider. Other Clinical Staff OTHER * (ABNORMAL) TROPONIN T (HS) ONE TIME (09/17/2023 9:52 PM CDT) TROPONIN T HS 156(H) 6-15 ng/L ng/L 09/17/2023 10:13 PM CDT [facility] Blood BLOOD SPECIMEN / Unknown Venipuncture / Unknown 09/17/2023 9:52 PM CDT 09/17/2023 9:53 PM CDT Pritesh Boyer MD CHEMISTRY [facility] [address] [address] * (ABNORMAL) TROPONIN T (HS) ACUTE W/2HR REFLEX (09/17/2023 7:55 PM CDT) TROPONIN T HS 74(H) 6-15 ng/L ng/L 09/17/2023 8:29 PM CDT [facility] Blood BLOOD SPECIMEN / Unknown IV Start / Unknown 09/17/2023 7:55 PM CDT 09/17/2023 7:56 PM CDT [facility] - 09/17/2023 8:29 PM CDT hs-cTnT (Elecsys [...] department patient population. Pritesh Boyer MD CHEMISTRY [facility] [address] [address] * (ABNORMAL) COMP METABOLIC PANEL (09/17/2023 7:55 PM CDT) SODIUM 138 136 - 145 mmol/L 09/17/2023 8:29 PM [facility] POTASSIUM 4.5 3.5 - 5.1 mmol/L 09/17/2023 8:29 PM [facility] CHLORIDE 102 98 - 107 mmol/L 09/17/2023 8:29 PM [facility] CO2,TOTAL 27 22 - 29 mmol/L 09/17/2023 8:29 PM [facility] ANION GAP 9 5 - 18 09/17/2023 8:29 PM [facility] GLUCOSE 229(H) 70 - 99 mg/dL 09/17/2023 8:29 PM [facility] CALCIUM 9.2 8.8 - 10.2 mg/dL 09/17/2023 8:29 PM [facility] BUN 17 8 - 23 mg/dL 09/17/2023 8:29 PM [facility] CREATININE 0.93 0.70 - 1.20 mg/dL 09/17/2023 8:29 PM [facility] BUN/CREAT RATIO 18 10 - 20 8:29 PM [facility] eGFR >90 >90 mL/min/1.7 3m2 09/17/2023 8:29 PM [facility] Comment:As of 2021, eG FR is calculated by the CKD-EPI creatinine equation without race adjustment. ??eGFR can be influenced by muscle mass, exercise, and diet. ??The reported eGFR is an estimation only and is only applicable if the renal function is stable. ALBUMIN 3.9(L) 4.0 - 4.9 g/dL 09/17/2023 8:29 PM CDT [facility] PROTEIN,TOTAL 7.2 6.0 - 8.0 g/dL 09/17/2023 8:29 PM CDT [facility] BILIRUBIN,TOTAL 0.5 0.0 - 1.2 mg/dL 09/17/2023 8:29 PM CDT [facility] ALK PHOSPHATASE 114 40 - 129 IU/L 09/17/2023 8:29 PM CDT [facility] ALT (SGPT) 30 10 - 50 IU/L 09/17/2023 8:29 PM CDT [facility] AST (SGOT) 37 10 - 50 IU/L 09/17/2023 8:29 PM CDT [facility] Blood BLOOD SPECIMEN / Unknown IV Start / Unknown 09/17/2023 7:55 PM CDT 09/17/2023 7:56 PM CDT Pritesh Boyer MD CHEMISTRY Performing Organization Address City/State/[facility] Co de Phone Number [facility] [address] [address] * (ABNORMAL) REFERRAL SUSCEPTIBILITY (09/02/2023 8:26 AM CDT) CULTURE RESULT(A) 09/07/2023 10:49 AM CDT [facility] CULTURE Streptococcus dysgalactiae (Beta Strep group C or G) 09/07/2023 10:49 AM CDT [facility] Other (Left ankle) [...] or G) CLARITHROMYCIN S Doctor Unknown MICROBIOLOGY [facility] [address] [place] [address], from Last 3 Months Advance Directives * Full Code (Latest Code Status on File) Date Activated Date Inactivated Comments 10/28/2023 9:19 AM 10/28/2023 4:27 PM Question Answer Comments Code Status Discussion: Reviewed Preferences * Full Code Date Activated Date Inactivated Comments 10/12/2023 12:34 PM 10/26/2023 10:46 PM Patient wa nts resuscitation if needed, but does not want intubation or to be on life support. * Full Code Date Activated Date Inactivated Comments 09/18/2023 2:59 AM 09/28/2023 4:36 PM Question Answer Comments Code Status Discussion: Reviewed Preferences * Full Code Date Activated Date Inactivated Comments 09/19/2017 2:10 PM 09/22/2017 8:18 PM Question Answer Comments Code Status Discussion: Not Discussed Care Teams Housing Officer Relationship Specialty Start Date End Date Munir Sahu MD [address] [place] [address] PCP - General Family Practice 09/17/23 [facility] [address] [place] [address] 09/28/23
--- OUTSIDE RECORDS SUMMARY | 2023-11-08 11:29 | XMS_ITS | Clinical Summary ---
Author Organization [facility] Address [address] [place] [address] Care Team Providers Care Media Job Titles Name Role Phone Elsewhere, Pcp Primary Care Provider Unavailabl e Source Comments Patient records contain information from all sites at [facility]. For routine questions regarding patient records, call [phone] during business hours, M-F 8:00 AM - 5:00 PM Central Time. Record requests for emergency care only can be directed to [phone] at any time.[facility] Allergies Active Allergy Reactions Criticality Noted Date Comments Dimethicone-Petrolatum Rash 02/01/2014 Horse [place] Rash 07/16/2016 Silver Sulfate-Foam Bandage Rash 02/02/20 14 Silver Rash,Other (see comments) 02/08/2014 Medications Medication Sig Dispensed Refills Start Date End Date Status blood-glucose meter kit Use to test blood glucose 4 times daily. 09/22/2017 Active metFORMIN XR (GLUCOPHAGE-XR) 500 mg 24 hr tablet Take 1,000 mg by mouth. 09/23/2017 Active torsemide (DEMADEX) 5 mg tablet 10 mg. 09/29/2017 Active zinc oxide 20 % ointment 12 10/03/2017 Active elastic bandage bandage 12 10/03/2017 Active acetaminophen (TYLENOL) 325 mg tablet Take 975 mg by mouth. 11/07/2019 Active FreeStyle João 14 Day [place] misc 02/17/2021 Active FreeStyle João 14 Day Sensor kit 02/18/2021 Active tadalafiL (CIALIS, ADCIRCA) 20 mg tablet tadalafil 20 mg tablet Active Active Problems Patient Care Coordination No te Formatting of this note migh t be different from the original. 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 10/04/2017 Lymphedema 09/19/2017 Diabetes Mellitus Type 2 09/19/2017 Infection Bacterial 06/17/2017 Stasis Ulcer Varicose Vein Right 02/21/2017 Lesion Skin Leg 09/03/2015 Stasis Ulcer With Varicose Vein Left 08/01/2015 Varicose Vein Lower Extremit y With Ulcer And Inflammation Left 08/01/2015 Swelling Leg 07/04/2015 Ulcer of ankle 06/18/2015 Overview (09/22/2017): Ulcer Ankle R Overview: Overview: Ulcer Ankle R Edema Leg Chronic 06/18/2015 Morbid obesity 06/11/2015 Overview (09/22/2017): Morbid Obesity Body Mass Index (BMI) >40 Adult Overview: Overview: Morbid Obesity Body Mass Index (BMI) >40 Adult Insufficiency Venous Peripheral 06/11/2015 Allergy Unspecified Initial 01/25/2014 Overview (01/29/2021): Diagnosis Maintenance Update Hypertension Essential Primary 01/08/2014 Overview (09/22/2017): Hypertension (HTN) Chronic Overview: Overview: Hypertension (HTN) Chronic Cellulitis Leg Left 12/26/2013 Cellulitis Leg Right 12/26/2013 Insufficiency Venous 03/16/2010 Hypertension Venous Chronic 11/24/2009 Overview (09/22/2017): Venous Stasis Ulcer with Inflammation Overview: Overview: Venous Stasis Ulcer with Inflammation Eczema 04/24/2008 Varicose Vein Lower Extremity With Inflammation 04/23/2008 Herniated Disc Lumbar 06/30/2001 Resolved Problems Problem Noted Date Diagnosed Date Resolved Date Hypertension Venous Chronic With Ulcer And Inflammation Bilateral 06/11/2015 08/19/2017 Overview (08/24/2016): Hypertension(HTN)Venous Chronic W Ulcer And Inflammation Dionte Encounters Date Type Department Care Team Description 10/26/2023 10:48 PM CDT - 10/26/2023 11:59 PM CDT Emergency [facility] [address] [place] [address] Hyperglycemia (Primary Dx) Discharge Disposition: Home or Self Care 09/17/2023 7:59 PM CDT - 09/17/2023 11:59 PM CDT Emergency [facility] [address] [place] [address] Non-ST Elevation Myocardial Infarction (HCC) (Primary Dx) Discharge Disposition: Home or Self Care from Last 3 Months Immunizations Name Administration Dates Next Due Influenza Split 01/28/2014 Influenza Whole 01/22/2015 Influenza, Injectable, Mdck, Preservative Free, Quadrivalent 01/23/2016 PPSV23 05/15/2018 SARS-COV-2 (COVID-19) - MODERNA(Discontinued) ,06/12/2020 Tdap 09/26/2017 influenza vaccine quad (FLUZ ONE/FLUARIX) (6 months and older)(PF) 05/15/2018 Family History Medical History Relation Name Comments [...] Comments Blood Pressure 160/85 04/17/2021 1:03 PM TRACK RIDER Pulse 74 04/17/2021 1:03 PM TRACK RIDER Temperature 36.4 ??C (97.5 ??F) 04/17/2021 1:03 PM CS T Respiratory Rate 14 02/15/2021 1:17 PM TRACK RIDER Oxygen Saturation 95% 02/15/2021 1:17 PM TRACK RIDER Inhaled Oxygen Concentration - - Weight 138 kg (304 lb 3.8 oz) 04/17/2021 1:03 PM TRACK RIDER Height 178 cm (5' 10.08) 04/17/2021 1:03 PM TRACK RIDER Body Mass Index 43.55 04/17/2021 1:03 PM TRACK RIDER Plan of Treatment Health Maintenance Due Date Last Done Comments CT Colonography 1960 Cologuard 1960 Colonoscopy 1960 Colorectal Cancer Screening 1960 Diabetic Office Visit with F oot Exam 1960 Dilated Eye Exam 1960 FIT 1960 HIV Screening 1960 Hepatitis C Screening 1960 Office Visit for Blood Press ure Check / Re-check 1960 Urine Albumin 1960 Zoster Vaccines (1 of 2) 2011 COVID-19 Vaccine (2022-2 4 season) 2022 02/06/2021, 07/10/2020, 06/12/2020 Depression Screening (Annual PHQ-2) 04/04/2023 Influenza Vaccine (#1) 2024 , 05/15/2018, 01/23/2016, Additional history exists Hemoglobin A1C 03/19/2024 09/18/2023, 01/08/2014 Lipid (Cholesterol) Screening 09/17/2024 09/18/2023, 01/08/2014 Creatinine Level (Kidney Fun ction Test) 10/25/2024 10/26/2023, 10/20/2023, 09/28/2023, Additional history exists Potassium Level 10/25/2024 10/26/2023, 10/02, 09/28/2023, Additional history exists Sodium Level 10/25/2024 10/26/2023, 0711/2023, 09/28/2023, Additional history exists Pneumococcal vaccine (0-64 y ears) (3 of 3 - PPSV23 or PCV20) 2026 01/15/2021, 05/15/2018 DTaP,Tdap,and Td Vaccines (2 - Td or Tdap) 09/27/2027 09/26/2017 Procedures Procedure Name Priority Date/Time Associated Diagnosis Comments DX CHEST PORTABLE 1 VIEW RAD - Semiurgent (Fast; most ED patients; some inpatients) 09/17/2023 8:11 PM CDT HEMOGLOBIN A1C, B Routine 01/08/2014 2:5 3 PM CDT LIPID PANEL, S Routine 01/08/2014 10:16 AM CDT COMPREHENSIVE METABOLIC PANEL, S/P Routine 01/08/2014 10:16 AM CDT from Last 3 Months or Most Recently Relevant to Health Maintenance Results * DX Chest Portable 1 View (09/17/2023 8:11 PM CDT) Anatomical Region Laterality Modality Chest, Thoracic RST LOS, Tho racic ARZ LOS, Thoracic FLA LOS N/A Digital Radiography Impressions 09/17/2023 8:19 PM CDT Borderline cardiomegaly with no overt CHF. Narrative 09/17/2023 8:19 PM CDT EXAM: DX CHEST PORTABLE 1 VIEW COMPARISON: 09/21/2017 FINDINGS: The heart size is borderline, with no overt CHF. The visualized lungs are clear. Procedure Note Jb Currie M.D. - 09/17/2023 EXAM: DX CHEST PORTABLE 1 VIEW COMPARISON: 09/21/2017 FINDINGS: The heart size is borderline, with no overt CHF. The visualizedlungs are clear. IMPRESSION: Borderline cardiomegaly with no overt CHF. Pritesh Boyer M.D., Ph.D. IMG DIAGNOSTI C IMAGING PROCEDURES from Last 3 Months Care Teams Media Job Titles Relationship Specialty Start Date End Date Elsewhere, Pcp PCP - General Family Medicine 06/15/17
--- OUTSIDE RECORDS SUMMARY | 2023-11-08 11:29 | XMS_ITS | Encounter Summary ---
Author Organization [facility] Address [address] [place] [address] Care Team Providers Care Pet Caregiver Name Role Phone Elsewhere, Pcp Primary Care Provider Unavailabl e Reason for Visit * Reason Comments Chest Pain Encounter Details Date Type Department Care Team (Late st Contact Info) Description 09/17/2023 7:59 PM CDT - 09/17/2023 11:59 PM CDT Emergency [facility] [address] [place] [id number] Non-ST Elevation Myocardial Infarction (HCC) (Primary Dx) [...] bandage 12 10/03/2017 FreeStyle João 14 Day [place] misc 02/17/2021 FreeStyle João 14 Day Sensor [...] on file documented as of this encounter Procedures Procedure Name Priority Date/Time Associated Diagnosis Comments DX CHEST PORTABLE 1 VIEW RAD - Semiurgent (Fast; most ED patients; some inpatients) 09/17/2023 8:11 PM CDT documented in this encounter Results * DX Chest Portable 1 View [...] M.D., Ph.D. IMG DIAGNOSTI C IMAGING PROCEDURES documented in this encounter Visit Diagnoses Diagnosis Non-ST Elevation Myocardial Infarction (HCC)- Primary documented in this encounter Care Teams Pet Caregiver Relationship Specialty Start Date End Date Elsewhere, Pcp PCP - General Family Medicine 06/15/17 documented as of this encounter
--- OUTSIDE RECORDS SUMMARY | 2023-11-08 11:29 | XMS_ITS ---
Author Organization [facility] Address [address] [place] [address] Care Team Providers Care Power And Recovery Superintendent Name Role Phone Unavailable Unavailable Unavailable Surgery Details Not on file Complications Check Surgery Details section. Procedure Estimated Blood Loss Check Surgery Details section. Procedure Findings Check Surgery Details section. Procedure Specimens Taken Check Surgery Details section.
--- OUTSIDE RECORDS SUMMARY | 2023-11-08 11:29 | XMS_ITS | Referral Summary ---
Author Organization [facility] Address [address] [place] [address] Care Team Providers Care Senior Analytic Consultant Name Role Phone Elsewhere, Pcp Primary Care Provider Unavailabl e Source Comments Patient records contain information from all sites at [facility]. For routine questions regarding patient records, call [phone] during business hours, M-F 8:00 AM - 5:00 PM Central Time. Record requests for emergency care only can be directed to [phone] at any time.[facility] Encounters Date Type Department Care Team Description 10/26/2023 10:48 PM CDT - 10/26/2023 11:59 PM CDT Emergency [facility] [address] [place] [address] Hyperglycemia (Primary Dx) Discharge Disposition: Home or Self Care 09/17/2023 7:59 PM CDT - 09/17/2023 11:59 PM CDT Emergency [facility] [address] [place] [address] Non-ST Elevation Myocardial Infarction (HCC) (Primary Dx) Discharge Disposition: Home or Self Care from Last 3 Months Allergies Active Allergy Reactions Criticality Noted Date Comments Dimethicone-Petrolatum Rash 02/01/2014 Horse [place] Rash 07/16/2016 Silver Sulfate-Foam Bandage Rash 02/02/20 [...] mouth. 11/07/2019 Active FreeStyle João 14 Day [place] misc 02/17/2021 Active FreeStyle João 14 Day [...] (FLUZ ONE/FLUARIX) (6 months and older)(PF) 05/15/2018 Social History Tobacco Use Types Packs/Day Years [...] Comments Blood Pressure 160/85 04/17/2021 1:03 PM MIXING OPERATOR Pulse 74 04/17/2021 1:03 PM MIXING OPERATOR Temperature 36.4 ??C (97.5 ??F) 04/17/2021 1:03 PM CS T Respiratory Rate 14 02/15/2021 1:17 PM MIXING OPERATOR Oxygen Saturation 95% 02/15/2021 1:17 PM MIXING OPERATOR Inhaled Oxygen Concentration - - Weight 138 kg (304 lb 3.8 oz) 04/17/2021 1:03 PM MIXING OPERATOR Height 178 cm (5' 10.08) 04/17/2021 1:03 PM MIXING OPERATOR Body Mass Index 43.55 04/17/2021 1:03 PM MIXING OPERATOR Plan of Treatment Not on file Procedures Procedure Name Priority Date/Time Associated Diagnosis [...] PROCEDURES from Last 3 Months Care Teams Senior Analytic Consultant Relationship Specialty Start Date End Date Elsewhere, Pcp PCP - General Family Medicine 06/15/17
== END 2023-11-04 08:01 | disposition home or self-care (01) ==
LOC: WOUND 11-08 11:24
PROVIDERS: PCP Family Medicine; Visit Provider Nurse Practitioner Family
DX: I87.2 Venous insufficiency (chronic) (peripheral) (principal); I89.0 Lymphedema, not elsewhere classified; E11.622 Type 2 diabetes mellitus with other skin ulcer; L97.322 Non-pressure chronic ulcer of left ankle with fat layer exposed; S81.801A Unspecified open wound, right lower leg, initial encounter; Z79.4 Long term (current) use of insulin
CPT/HCPCS: 11042

== ENCOUNTER 2023-11-11 07:50 | Outpatient (CLI) | payer OTHER, SELFPAY ==
--- OUTSIDE RECORDS SUMMARY | 2023-11-11 07:52 | XMS_ITS | Data Portability ---
Author Organization [place] - [facility] Address [address] [facility] [address] [place] [address] Care Team Providers Care Rounder And Backer Name Role Phone GORDY SOL Primary Care Provider Assessment Encounter Date Assessment Date Assessment LastModified by Organization Details LastModified Time 11/21/2019 11/21/2019 59M with [id number] Sharon 3+4=7 prostate cancer s/p RALP. Discussed pathology, risk of recurrence, need for ongoing PSA monitoring. Small anastomotic leak, will cont Choi x 1 more week. Worsened LE edema, likely chronic, but will check LE u/s to be sure no DVT. [email or web address] Not available 11/21/2019 14:07:03 01/02/2020 01/02/2020 59M with [id number] Sharon 3+4=7 prostate cancer s/p RALP. 1) Prostate cancer - f/u 4 months with PSA 2) EVETTE, moderate - cont Kegels - consider PFPT 3) ED - Cialis PRN [email or web address] Not available 01/02/2020 09:34:03 05/01/2020 05/01/2020 60M with [id number] Sharon 3+4=7 prostate cancer s/p RALP 6 months ago. MICHAEL. 1) Prostate cancer - f/u 6 months with PSA 2) EVETTE, moderate - cont Kegels - consider PFPT 3) ED - Cialis PRN [email or web address] Not available 05/01/2020 10:47:29 10/24/2020 10/24/2020 60M with [id number] Heidy 3+4=7 prostate cancer s/p RALP 1 [...] y referr al 2020 021 [facility], [address], [facility] [address], [place], [address], 09:57:49 Procedures None record ed. Surgeries None record ed. Imaging None record ed. Medication Orders None record ed. Patient TargetsNo targets recorded. Patient Instructions Encounter Date Encounter Id Patient Instructions Last Modified By Organization Details Last Modified Time 11/28/2019 [id number] To follow up sumaya Doshi at his [...] Not Available [facility] [address], [place], [address], 05/01/2020 10:40:29 02/11/2020 lab* PSA <0.04 normal Not Available Not Available 01/07/2020 12:33:24 01/02/2020 PSA, serum or plasm a PSA, Total <0.04 ng/Ml Not Available [facility] [address], [place], [address], 01/02/2020 09:14:10 10/25/19 21 10/24/2020 PSA, serum or plasm a PSA, Total <0.04n g/mL Not Available [facility] [address], [place], [address], 10/24/2020 10:45:30 11/23/19 20 11/21/2019 CT, pelvi s, w/o contr ast No observ ation record ed. cedric Not Available 11/29/19 17:13:18 Result Notes None recorded. Problems Name Status Onset Date Resolution Date Notes Provider Name and Address Organization Details Recorded Time Carcinoma of prostate Active 11/21/19 20 Caroline kruger [facility] 11/21/2019 10:59:25 Male urinary stress incontinence Active 05/01/19 21 Momo delacruz MD, PHD [address] [place] [address], [phone], [facility] 05/01/2020 10:47:38 Primary erectile dysfunction Active 05/01/19 21 Momo delacruz MD, PHD [address] [place] [address], [phone], [facility] 05/01/2020 10:47:58 Problem Notes None recorded. Procedures Surgical History Date Name Laterality Status Provider Name and Address Organization Details Recorded Time 10/25/19 21 Blood Draw/DISTRICT BRANCH MANAGER/PSA RESULTS completed Momo baez MD, PHD [address] [place] [address], [phone], [facility] 10/24/2020 10:45:26 05/01/19 21 Blood Draw/DISTRICT BRANCH MANAGER/PSA RESULTS completed Momo baez MD, PHD [address] [facility],[address], [place], [address], [facility] 05/01/2020 10:40:25 01/02/20 20 Blood Draw/DISTRICT BRANCH MANAGER/PSA RESULTS completed Janice Ayala [facility] 01/02/2020 09:14:04 11/28/19 20 Choi Catheter Removal completed Caroline Smith [facility] 02/04/2020 12:00:10 Prostatectomy completed Momo baez MD, PHD [address] [facility],[address], [place], [address], [facility] 10/24/2020 10:44:48 colonoscopy completed Monica Awan [facility], [facility] 12/09/2020 10:47:07 Imaging Results Imaging Date Name Status LastModified by Organiz ation Details LastModified Time 11/21/2019 CT, pelvis, w/o contrast completed cedric Information not available 11/29/2019 17:13:18 Procedure Notes None recorded. Medical Equipment None Reported. Allergies Allergen ID Allergen Name Allergen Category Reaction Reaction Severity Criticality Documentation Date Start Date Code Code System Note Provider Name and Address Organization Details Recorded Time [id number] silver medicatio n Not available Not available Not available 11/21/2019 37358 [id number] RxNorm Caroline Smith [facility] 0 11:09:54 725759 adhesive tape environme nt,medica tion Not available Not available Not available 11/21/2019 Caroline Smith [facility] 0 11:10:01 Medications Name Sig Start [...] Updated DateTime 01/02/2020 180.34 cm 39.3 kg/m2 964095.05 g Caroline Rojasyoandy [facility] 01/02/2020 09:09:40 Date Recorded Body height Body mass index (BMI) Body weight Provider Name and Address Organization Details Last Updated DateTime 05/01/2020 180.34 cm 39.3 kg/m2 030907.05 g Momo baez MD, PHD [address] [place] [address] 05/01/2020 10:39:59 Date Recorded Body height Body mass index (BMI) Body weight Provider Name and Address Organization Details Last Updated DateTime 10/24/2020 180.34 cm 39.7 kg/m2 241879.83 g Momo baez MD, PHD [address] [place] [address] 10/24/2020 10:44:13 Date Recorded Body height Body mass index (BMI) Body weight Provider Name and Address Organization Details Last Updated DateTime 11/21/2019 180.34 cm 39.3 kg/m2 377721.05 g Caroline Rojasyoandy [facility] 11/21/2019 11:09:04 Social History Question Answer Notes LastModified by Organizat ion Details LastModified Time Tobacco Smoking Status Never Smoker Caroline kruger [facility] 11/21/2019 11:10:15 What Is Your Level [...] Encounter Closed Date Diagnosis/Indication Diagnosis SNOMED-CT Code [id number] Momo delacruz MD, PHD [facility] [employer] [address] [place] [address] 11/21/2019 10:45:55 11/21/2019 15:00:28 Malignant tumor of prostate [id number] Caroline Gneiting [facility] [employer] [address] [place] [address] 11/28/2019 09:57:13 02/06/2020 03:54:17 [id number] Momo delacruz MD, PHD [facility] [employer] [address] [place] [address] 01/02/2020 08:46:59 01/02/2020 14:22:16 Malignant tumor of prostate 157968364 [id number] Momo delacruz MD, PHD [facility] [employer] [address] [place] [address] 05/01/2020 09:26:51 05/01/2020 12:03:29 Malignant tumor of prostate 510627480 Primary er ectile dysfunction 107490891 [id number] Momo delacruz MD, PHD [facility] [employer] [address] [place] [address] 10/24/2020 10:28:04 10/27/2020 16:45:05 Carcinoma of prostate 814149881 Malignant tumor of prostate 179883937 Primary er ectile dysfunction 690569456 Male urina ry stress incontinence 170942763 Health Concerns Section Related Observation LastModified by Organization Detai ls LastModified Time None Recorded Concern Status LastModified by Organization Details LastModified Time None Recorded Advance Directives Directive None Recorded Payers Encounter Date Sequence Insurance Name Policy Number Policy Archibald Covered Member ID Archibald Member ID Guarantor Name 11/21/2019 1 [facility] [id number] Julien Ridley [id number] Julien Ridley 11/28/2019 1 [facility] [id number] Julien Ridley [id number] Julien Ridley 01/02/2020 1 [facility] [id number] Julien Ridley [id number] Julien Ridley 05/01/2020 1 [facility] [id number] Julien Ridley [id number] Julien Ridley 10/24/2020 1 [facility] [id number] Julien Ridley [id number] Julien Ridley Notes Date Note Type Note Provider Name and Address Organization Details Recorded Time 11/21/2019 text/html HPI Notes: 59M s /p RALP 11/06/19 for [id number] Heidy 3+4=7 prostate cancer (0/12 LN, -SMS) [...] ED: 05/09 Momo Holliday MD, PHD [address] [facility],[address], [place], [address], [facility] 11/21/2019 14:07:42 01/02/2020 text/html HPI Notes: 59M with [id number] Heidy 3+4=7 prostate cancer (0/12 LN, -SMS) s/p RALP 11/06/19. Small anastomotic leak, catheter removed 11/28/19. Overall doing well. C/o some leakage with BMs and position changes. Uses multiple depends per day...... LE u/s to eval for dvt last visit was negative PSA Results 07/27/19: 6.5 01/02/20: <0.04 UF: 07/07 EF: / Pre-op EF: / Momo Holliday MD, PHD [address] [place] [address],[address], [address], [facility] 01/02/2020 09:35:54 05/01/2020 text/html HPI Notes: 60M with [id number] Sharon 3+4=7 prostate cancer (0/12 LN, -SMS) s/p RALP 11/06/19. Small anastomotic leak, catheter removed 11/28/19. Overall doing well. C/o some leakage with BMs and position changes. Uses 4ppd which is improvement. No problems with incisions. PSA Results 07/27/19: 6.5 01/02/20: <0.04 05/01/20: <0.04 UF: 3/5 EF: 5/5 Pre-op EF: 2/5 Momo Holliday MD, PHD [address] [place] [address],[address], [address], [facility] 05/01/2020 10:48:15 10/24/2020 text/html HPI Notes: 60M with [id number] Heidy 3+4=7 prostate cancer (0/12 LN, -SMS) s/p RALP 11/06/19 Overall doing well. C/o some leakage with BMs and position changes and sexual activity. Uses 4ppd still. No problems with incisions. PSA Results 07/27/19: 6.5 01/02/20: <0.04 05/01/20: <0.04 10/24/20: <0.04 UF: 3/5 EF: 5/5 Pre-op EF: 2/5 Momo Holliday MD, PHD [address] [place] [address],[address] [place] [address], [phone], [facility] 10/24/2020 11:30:55
--- OUTSIDE RECORDS SUMMARY | 2023-11-11 07:52 | XMS_ITS | Referral Summary ---
Author Organization [facility] Address [address] [place] [address] Care Team Providers Care Pocket Marker Name Role Phone Munir Sahu MD Primary Care Provider [phone] Allergies Active Allergy Reactions Criticality Noted Date [...] Advance Directives For more information, please contact: [phone] * Full Code (Latest Code Status on File) Date Activated Date Inactivated Comments 11/06/2019 2:19 PM 11/07/2019 9:06 PM All basic and advanced life-sustaining interventions are performed as appropriate Question Answer Comments Code status determined by: Unable to det ermine; FULL CODE until documents or legal decision maker available Care Teams Pocket Marker Relationship Specialty Start Date End Date Munir Sahu MD PCP - General Family Practice 10/22/19
--- OUTSIDE RECORDS SUMMARY | 2023-11-11 07:52 | XMS_ITS | Clinical Summary ---
Author Organization [facility] Address [address] [place] [address] Care Team Providers Care Dramatic Arts Historian Name Role Phone Munir Sahu MD Primary [...] Advance Directives For more information, please contact: [phone] * Full Code (Latest Code Status on File) Date Activated Date Inactivated Comments 11/06/2019 2:19 PM 11/07/2019 9:06 PM All basic and advanced life-sustaining interventions are performed as appropriate Question Answer Comments Code status determined by: Unable to det ermine; FULL CODE until documents or legal decision maker available Care Teams Dramatic Arts Historian Relationship Specialty Start Date End Date Munir Sahu MD PCP - General Family Practice 10/22/19
--- OUTSIDE RECORDS SUMMARY | 2023-11-11 07:53 | XMS_ITS | Referral Summary ---
Author Organization [facility] Address [address] [place] [address] Care Team Providers Care Mechanical Project Engineer Name Role Phone Elsewhere, Pcp Primary Care Provider Unavailabl e Source Comments Patient records contain information from all sites at [facility]. For routine questions regarding patient records, call [phone] during business hours, M-F 8:00 AM - 5:00 PM Central Time. Record requests for emergency care only can be directed to [phone] at any time.[facility] Encounters Date Type Department Care Team Description 10/26/2023 10:48 PM CDT - 10/26/2023 11:59 PM CDT Emergency [facility] [address] [place] [address] Hyperglycemia (Primary Dx) Discharge Disposition: Home or Self Care 09/17/2023 7:59 PM CDT - 09/17/2023 11:59 PM CDT Emergency [facility] [address] [place] [address] Non-ST Elevation Myocardial Infarction (HCC) (Primary Dx) Discharge Disposition: Home or Self Care from Last 3 Months Allergies Active Allergy Reactions Criticality Noted Date Comments Dimethicone-Petrolatum Rash 02/01/2014 Horse [place] Rash 07/16/2016 Silver Sulfate-Foam Bandage Rash 02/02/20 [...] mouth. 11/07/2019 Active FreeStyle João 14 Day [place] misc 02/17/2021 Active FreeStyle João 14 Day [...] Comments Blood Pressure 160/85 04/17/2021 1:03 PM BANKING SUPERVISOR Pulse 74 04/17/2021 1:03 PM BANKING SUPERVISOR Temperature 36.4 ??C (97.5 ??F) 04/17/2021 1:03 PM CS T Respiratory Rate 14 02/15/2021 1:17 PM BANKING SUPERVISOR Oxygen Saturation 95% 02/15/2021 1:17 PM BANKING SUPERVISOR Inhaled Oxygen Concentration - - Weight 138 kg (304 lb 3.8 oz) 04/17/2021 1:03 PM BANKING SUPERVISOR Height 178 cm (5' 10.08) 04/17/2021 1:03 PM BANKING SUPERVISOR Body Mass Index 43.55 04/17/2021 1:03 PM BANKING SUPERVISOR Plan of Treatment Not on file Procedures [...] PROCEDURES from Last 3 Months Care Teams Mechanical Project Engineer Relationship Specialty Start Date End Date Elsewhere, Pcp PCP - General Family Medicine 06/15/17
--- OUTSIDE RECORDS SUMMARY | 2023-11-11 07:53 | XMS_ITS | Clinical Summary ---
Author Organization [facility] Address [address] [place] [address] Care Team Providers Care Plow Mechanic Name Role Phone Elsewhere, Pcp Primary Care Provider Unavailabl e Source Comments Patient records contain information from all sites at [facility]. For routine questions regarding patient records, call [phone] during business hours, M-F 8:00 AM - 5:00 PM Central Time. Record requests for emergency care only can be directed to [phone] at any time.[facility] Allergies Active Allergy Reactions Criticality Noted Date Comments Dimethicone-Petrolatum Rash 02/01/2014 Horse [place] Rash 07/16/2016 Silver Sulfate-Foam Bandage Rash 02/02/20 [...] mouth. 11/07/2019 Active FreeStyle João 14 Day [place] misc 02/17/2021 Active FreeStyle João 14 Day [...] CDT - 10/26/2023 11:59 PM CDT Emergency [facility] [address] [place] [address] Hyperglycemia (Primary Dx) Discharge Disposition: Home or Self Care 09/17/2023 7:59 PM CDT - 09/17/2023 11:59 PM CDT Emergency [facility] [address] [place] [address] Non-ST Elevation Myocardial Infarction (HCC) (Primary Dx) [...] Comments Blood Pressure 160/85 04/17/2021 1:03 PM SAND TECHNICIAN Pulse 74 04/17/2021 1:03 PM SAND TECHNICIAN Temperature 36.4 ??C (97.5 ??F) 04/17/2021 1:03 PM CS T Respiratory Rate 14 02/15/2021 1:17 PM SAND TECHNICIAN Oxygen Saturation 95% 02/15/2021 1:17 PM SAND TECHNICIAN Inhaled Oxygen Concentration - - Weight 138 kg (304 lb 3.8 oz) 04/17/2021 1:03 PM SAND TECHNICIAN Height 178 cm (5' 10.08) 04/17/2021 1:03 PM SAND TECHNICIAN Body Mass Index 43.55 04/17/2021 1:03 PM SAND TECHNICIAN Plan of Treatment Health Maintenance Due Date [...] PROCEDURES from Last 3 Months Care Teams Plow Mechanic Relationship Specialty Start Date End Date Elsewhere, Pcp PCP - General Family Medicine 06/15/17
--- OUTSIDE RECORDS SUMMARY | 2023-11-11 07:53 | XMS_ITS ---
Author Organization [facility] Address [address] [place] [address] Care Team Providers Care Bearing Machine Operator Name Role Phone Unavailable Unavailable Unavailable Surgery Details Not on file Complications Check Surgery Details section. Procedure Estimated Blood Loss Check Surgery Details section. Procedure Findings Check Surgery Details section. Procedure Specimens Taken Check Surgery Details section.
--- OUTSIDE RECORDS SUMMARY | 2023-11-11 07:53 | XMS_ITS | Encounter Summary ---
Author Organization [facility] Address [address] [place] [address] Care Team Providers Care Glass Technician Name Role Phone Elsewhere, Pcp Primary Care Provider Unavailabl e Reason for Visit * Reason Comments Weakness - Generalized Hyperglycemia Encounter Details Date Type Department Care Team (Late st Contact Info) Description 10/26/2023 10:48 PM CDT - 10/26/2023 11:59 PM CDT Emergency [facility] [address] [place] [id number] Hyperglycemia (Primary Dx) Discharge Disposition: Home or [...] bandage 12 10/03/2017 FreeStyle João 14 Day [place] misc 02/17/2021 FreeStyle João 14 Day Sensor [...] Primary documented in this encounter Care Teams Glass Technician Relationship Specialty Start Date End Date Elsewhere, Pcp PCP - General Family Medicine 06/15/17 documented as of this encounter
--- OUTSIDE RECORDS SUMMARY | 2023-11-11 07:53 | XMS_ITS | Clinical Summary ---
Author Organization [facility] s & [facility] Address [place], [place] [address] Care Team Providers Care Gunner'S Mate G Name Role Phone Munir Sahu MD Primary Care Provider + [facility] [place] Unavailable [phone] Allergies Active Allergy Reactions Criticality Noted Date [...] by insurance) 9 mL 09/28/2023 Active Insulin [place], Disposable, (Susana Pen Needle) 32 gauge x [...] Diagnosed Date Coronary artery disease invo lving [place] coronary artery without angina pectoris 10/28/2023 Overview: [...] Encounters Date Type Department Care Team Description 11/10/2023 8:00 AM CDT Home Care Visit [facility] [address] [facility] [place] [address] Tyson Mejias, PT PT - HOME VISIT 11/09/2023 10:00 AM CDT Home Care Visit [facility] [address] [place] [address] Isa Cintron, RN SN - HOME VISIT 11/09/2023 Orders Only [facility] [address] [place] [address] Louisa Lopez PA <No scans attached> 11/08/2023 Home Care Visit [facility] [address] [place] [address] Tyson Mejias, PT CARE COORDINATION 11/07/2023 8:15 AM CDT Home Care Visit [facility] [address] [place] [address] Tyson Mejias, PT PT - INITIAL ASSESSMENT 11/07/2023 7:30 AM CDT Home Care Visit [facility] [address] [place] [phone] Lexi Esteves, CHITRA SN - HOME VISIT 11/04/2023 Home Care Visit [facility] [address] [place] [address] Elvira Reyes RN CARE COORDINATION 11/04/2023 [facility] [address] [facility] [address] [place] [address] Gregorio Olivia MD Medication Management (amlodipine) 11/02/2023 8:30 AM CDT Home Care Visit [facility] [address] [place] [phone] Nohemy Anna LPN LIBRARIAN SPECIALIST - HOME VISIT 10/31/2023 3:00 PM CDT Home Care Visit [facility] [address] [place] [phone] Evie Young RN SN - HOME VISIT 10/31/2023 Procedure Only [facility] [address] [facility] [address] [place] [phone] Device Check (Remote Leadless Pacemaker Ca... 10/28/2023 5:20 AM CDT - 10/28/2023 1:20 PM CDT Hospital Encounter [facility] [address] [place] [address] Kamran Li MD Essential hypertension (Primary Dx); CAD, multiple vessel; S/p 3V CABG (SHER-LAD, LISA-ramus, radial-OM), 09/23/2023 Discharge Disposition: Home Self Care 10/28/2023 Home Care Visit [facility] [address] [place] [address] Elvira Reyes PRODUCT SAFETY SPECIALIST NOTE 10/28/2023 Travel 10/27/2023 8:30 AM CDT Home Care Visit [facility] [address] [place] [phone] Elvira Reyes RN SN - HOME VISIT 10/26/2023 10:48 PM CDT - 10/27/2023 12:53 AM CDT [facility] [address], [place] [address] Misha Styles III, MD Insomnia, unspecified type (Primary Dx); Anxiety Discharge Disposition: Home Self Care 10/26/2023 Travel 10/24/2023 9:00 AM CDT Home Care Visit [facility] [address] [place] [phone] Elvira Reyes, RN SN - HOME VISIT 10/21/2023 Home Care Visit [facility] [address] [place] [phone] Elvira Reyes RN CARE COORDINATION 10/21/2023 Telephone [facility] [address] [place] [address] Quentin Aiken MD Pre Procedure 10/21/2023 Telephone [facility] [address] [place] [address] Jen Greenberg NP Results 10/20/2023 1:50 PM CDT Orders Only [facility] [address] [place] [address] Lab 10/20/2023 1:00 PM CDT Office Visit [facility] [address] [place] [phone] Jen Greenberg NP Follow Up (3-4 weeks for post-op CABGsternal wires to be removed, per Alejandra Lau // pre-op for 10/27 staged pci w/ JTK); Refill Request (Nitro, atorvastatin, metoprolol, Furosamide, plavix and valsartan ); Concerns (SOB with longer walk pt states that he gets lightheadedness as well pt denies chest discomfort, edema, headaches, numbness, tinglings and palpitations at this time ) 10/20/2023 Travel 10/19/2023 7:45 AM CDT Home Care Visit [address] [phone] Elvira Reyes RN SN - HOME VISIT 10/17/2023 5:00 AM CDT Home Care Visit [address] [phone] Isa Cintron RN SN - HOME VISIT 10/14/2023 11:30 AM CDT Home Care Visit [address] [phone] Lavern Madrid RN SN - MISSED VISIT 10/12/2023 10:00 AM CDT Home Care Visit [address] [phone] Elvira Reyes RN SN - HOME VISIT 10/10/2023 9:45 AM CDT Home Care Visit [address] [phone] Elvira Reyes, RN SN - HOME VISIT 10/07/2023 8:00 AM CDT Home Care Visit [address] [phone] Elvira Reyes RN SN - HOME VISIT 10/05/2023 12:30 PM CDT Home Care Visit [address] [place] [address] Elvira Reyes RN SN - HOME VISIT 10/04/2023 2:00 PM CDT Procedure Only [facility] [address] [facility] [address] [place] [address] Device Check (IN CLINIC [employer] LEADLESS... 10/04/2023 Travel 10/03/2023 7:00 AM CDT Home Care Visit [address] [phone] Lexi Esteves, CHITRA SN - HOME VISIT 10/03/2023 1:00 AM CDT Home Care Visit [address] [phone] Ailyn Varghese RN SN - WOUND/OSTOMY CHART CONSULT 10/03/2023 Telephone [facility] [address] [place] [address] Ailyn Varghese RN Home Care (Vascular and or Wound clinic referral is needed. Supplies with [employer]) 09/30/2023 9:30 AM CDT Home Care Visit [place] [id number] [place] [phone] Lexi Esteves, CHITRA SN - OASIS START OF CARE 09/30/2023 Plan of Care Documentation [address] [phone] 09/28/2023 Orders Only [facility] [address] [facility] [address] [place] [address] Alejandra Lau PA <No scans attached> 09/23/2023 2:03 PM CDT Anesthesia Event [facility] [address] [place] [address] Marylou De Anda MD Ludwig, Margaret J, CRNA 09/23/2023 12:45 PM CDT - 09/23/2023 8:02 PM CDT Surgery [address] [address] Gregorio Olivia MD CORONARY ARTERY BYPASS X 3 WITH RADIAL HARVEST, AND TEMP VENTRICULAR PACING WIRES 09/18/2023 2:58 AM CDT - 09/28/2023 2:30 PM CDT Hospital Encounter [address] [facility] [place] [id number] s, U Hospitalist SvWendy Cruz, DO [place], [...] CDT - 09/18/2023 1:46 AM CDT Emergency [facility] [address] [place] [address] Pritesh Boyer MD NSTEMI (non-ST elevated myocardial infarction) (HC) (Primary Dx) Discharge Disposition: Health Care Facility Not On List 09/17/2023 Telephone [facility] [address] [place] [address] Guzman Lovelace MD 09/17/2023 Travel 09/05/2023 Lab Requisition [facility] [phone] Unknown, Doctor from Last 3 Months Family [...] Sign Reading Time Taken Comments Blood Pressure 114/56 11/10/2023 8:07 AM CDT Pulse 81 11/10/2023 8:45 AM CDT Temperature 35.8 ??C (96.4 ??F) 11/10/2023 8:07 AM CD T Respiratory Rate 18 11/10/2023 8:07 AM CDT Oxygen Saturation 98% 11/10/2023 8:45 AM CDT Inhaled Oxygen Concentration - - Weight 129.3 kg (285 lb) 11/09/2023 10:27 AM CDT Height 180.3 cm (5' 11) 10/28/2023 7:31 AM CDT Body Mass Index 39.75 10/28/2023 7:31 AM CDT Plan of Treatment Upcoming Encounters Date Type Department Care Team (Late st Contact Info) Description 11/14/2023 4:00 AM CDT Home Care Visit [address] [phone] Elvira Reyes RN [address] [place] [address] 11/15/2023 8:00 AM CDT Home Care Visit [address] [phone] Tyson Mejias, PT [address] [place] [address] 11/17/2023 7:30 AM CDT Home Care Visit [address] [phone] Tyson Mejias, PT [address] [place] [address] 11/21/2023 4:00 AM CDT Home Care Visit [facility] [address] [place] [address] Elvira Reyes, RN [address] [place] [address] 11/22/2023 3:00 AM CDT Home Care Visit [facility] [address] [place] [phone] Tyson Mejias, PT [address] [place] [address] 11/24/2023 4:00 AM CDT Home Care Visit [facility] [address] [place] [phone] Tyson Mejias, PT [address] [place] [address] 11/28/2023 4:00 AM CDT Appointment [facility] [address] [place] [phone] Elvira Reyes, RN [address], [place] [address] 11/29/2023 9:30 AM CDT Appointment [facility] [address], [place] [address] 12/13/2023 1:30 PM CDT Office Visit [facility] [address] [phone] Kamran Li MD [address] [place] [address] 12/13/2023 2:30 PM CDT Office Visit [facility] [address] [phone] Quentin Aiken MD [address] [place]AY[place] [phone] 02/27/2024 Procedure Only [facility] [address] [place] [phone] Health Maintenance Due Date Last Done Comments [...] THROMBIN TIME STAT 09/23/2023 8:05 PM CDT HC CATH INFUSION PR70 Routine 09/23/19 4:34 PM CDT HCHG KIT PR5 Routine 09/23/2023 4:34 PM CDT [facility] AN INTRODUCER 2 LUMEN PERFORMABLE Routine 09/23/2023 4:34 PM CDT HCHG DRSG PR1 Routine 09/23/2023 4:34 PM CDT HCHG DRSG PR5 Routine 09/23/2023 4:34 PM CDT HCHG TUBING PR5 Routine 09/23/2023 4:34 PM CDT HC KIT MONITORING PR5 Routine 09/23/19 24 4:34 [...] Case Notes AVERAGE T/FPERFUSION-Confirmed w/Shayna for 1315 #[id number] EK 6/20OR STAFF BYPASS CORONARY ARTERY 01 2023 1:33 PM CDT Case Notes AVERAGE T/FPERFUSION-Confirmed w/Shayna for 1315 #[id number] EK 09/21OR STAFF GLUCOSE METER Timed 09/23/2023 12:59 PM [...] of53 resultswithin the time period is included. GLUCOSE METER 135(H) 65 - 100 mg/dL 10/28/2023 10:59 AM CDT [facility] Blood BLOOD SPECIMEN / Unknown 10/28/2023 10:59 AM CDT 10/28/2023 10:59 AM CDT Kamran Li MD CHEMISTRY Performing Organization Address City/[facility]/ZIP Co de Phone Number [facility] SENDOUT INTERNAL ZIP [address] [place] [address] * SCAN-CARDIAC STRIP (10/28/2023 10:55 AM CDT) Scanner OTHER * EKG 12 LEAD (10/28/2023 10:33 AM CDT) Only the most recent of9 resultswithin the time period is included. Interpretation [...] NOW QTc 472 ms BEYOND NOW P [place] 56 degrees BEYOND NOW R [place] 45 degrees BEYOND NOW T [place] 70 degrees BEYOND NOW 10/28/2023 10:3 3 AM CDT 10/28/2023 11:07 AM CDT Kamran Li MD EKG ORD Performing Organization Address City/[facility]/ZIP Co de Phone Number BEYOND NOW [place], [place] * (ABNORMAL) ACTIVATED CLOTTING TIME [id number] ACT (10/28/2023 8:56 AM CDT) ACTIVATED CLOTTING TIME, POCT 304(H) 74 - 125 sec 10/28/2023 12:18 PM CDT [facility] Blood BLOOD SPECIMEN / Unknown 10/28/2023 8:56 AM CDT 10/28/2023 12:18 PM CDT Kamran Li MD HEMATOLOGY [facility] SENDOUT [place] ZIP [address] [address] [place] [address] * CVL PCI ONLY (10/28/2023 8:19 AM CDT) Anatomical Region Laterality Modality X-Ray Angiograph y 10/28/2023 8:19 AM CDT Narrative Transcriptions Kamran Li MD - 10/28/2023 9:33 AM CDT [facility] Cardiac Catheterization Report Name: JOSE GUADALUPE RIDLEY Event Date: 10/28/2023 08:19 [facility] ID #: [id number] JAKE #: [id number] Diagnostic Physician: KAMRAN LI [facility] Interventional Physician: KAMRAN LI [facility] Referring Physician: GREGORIO OLIVIA Date: 1960 Gender: [...] inhibit spasm of the radialgraft. Consent & Mercer Protocol The risks, benefits, and alternatives of the procedure were discussed withthe patient and written informed consent was obtained. Mercer protocol was followed. TIME OUT conducted just prior tostarting procedure confirmed patient identity, site/side, procedure,patient position, and availability of correct equipment and implants (ifapplicable). Staff Name Title KAMRAN LI Director Of Maintenance Rafaela Bailey RN Nurse Hung Oviedo RTR ScrMachelle Ochoa RTR Monitor Jimmie Merino CVBonnie Intake Counselor Procedures ? US Guided Access ? Coronary [...] 15mm 1 Distal RCA Drug Eluting Stent Clubb Chicot 3.50 x 22mm Procedure Details Estimated Blood Loss: < 30 ml Specimen Collected: None Level of Sedation Achieved: Moderate Procedure Start: 08:19 Procedure End: : Procedure Time: 63 min Fluoroscopy Time: 16.2 min Cumulative Air Kerma: 1697 mGy DAP: 52629 mGy/cm2 Contrast: Omnipaque, 230 ml Physiologic Data [...] IV Kamran Li Kendra RN 08:39 Heparin 08064 units IV Kamran Li Kendra RN 08:44 [...] healthcare professional providing the sedation ends personal gqzuwrlarqxere-ik-xopc time with the patient. The medications listed above were verbally ordered by me and read back tome as documented above. Refer to the procedure log report for additional case details. electronically signed on 10/28/2023 9:33:27 AM with status of Final Kamran Li MD [address], [place] [address] [address] [place] [address] (p) [phone](f) Alejandra FAJARDO CV IMAGING * (ABNORMAL) CBC with Platelets no Differential (10/28/2023 6:35 AM CDT) Only the most recent of5 resultswithin the time period is included. WHITE BLOOD COUNT 5.9 4.5 - 11.0 thou/cu mm 10/28/2023 6:52 AM [facility] RED BLOOD COUNT 4.27(L) 4.30 - 5.90 mil/cu mm 10/28/2023 6:52 AM [facility] HEMOGLOBIN 12.6(L) 13.5 - 17.5 g/dL 10/28/2023 6:52 AM [facility] HEMATOCRIT 38.9 37.0 - 53.0 % 10/28/2023 6:52 AM [facility] MCV 91 80 - 100 fL 10/28/2023 6:52 AM [facility] MCH 29.5 26.0 - 34.0 pg 10/28/2023 6:52 AM [facility] MCHC 32.4 32.0 - 36.0 g/dL 10/28/2023 6:52 AM [facility] RDW 14.6 11.5 - 15.5 % 10/28/2023 6:52 AM [facility] PLATELET COUNT 193 140 - 440 thou/cu mm 10/28/2023 6:52 AM [facility] MPV 9.6 6.5 - 11.0 fL 10/28/2023 6:52 AM [facility] NRBC 0.0 % 10/28/2023 6:52 AM CDT [facility] ABS NRBC 0.0 thou /cu mm 10/28/2023 6:52 AM [facility] Blood BLOOD SPECIMEN / Unknown Venipuncture / Unknown 10/28/2023 6:35 AM CDT 10/28/2023 6:45 AM CDT Gregorio Elizabeth MD HEMATOLOGY [facility] SENDOUT INTERNAL ZIP [phone] [place] [address] * (ABNORMAL) Basic Metabolic Panel (10/28/2023 6:35 AM CDT) Only the most recent of14 resultswithin the time period is included. SODIUM 139 136 - 145 mmol/L 10/28/2023 7:19 AM [facility] POTASSIUM 3.8 3.5 - 5.1 mmol/L 10/28/2023 7:19 AM [facility] CHLORIDE 102 98 - 107 mmol/L 10/28/2023 7:19 AM [facility] CO2,TOTAL 25 22 - 29 mmol/L 10/28/2023 7:19 AM [facility] ANION GAP 12 5 - 18 10/28/2023 7:19 AM [facility] GLUCOSE 158(H) 70 - 99 mg/dL 10/28/2023 7:19 AM [facility] CALCIUM 9.4 8.8 - 10.2 mg/dL 10/28/2023 7:19 AM [facility] BUN 19 8 - 23 mg/dL 10/28/2023 7:19 AM [facility] CREATININE 0.97 0.70 - 1.20 mg/dL 10/28/2023 7:19 AM [facility] BUN/CREAT RATIO 20 10 - 20 7:19 AM [facility] eGFR 88(L) >90 mL/min/1.7 3m2 10/28/2023 7:19 AM [facility] Comment:As of 2021, eG FR [...] 6:45 AM CDT Gregorio Elizabeth MD CHEMISTRY [facility] SENDOUT INTERNAL ZIP [phone] [place] [address] * URINALYSIS MICROSCOPIC (10/26/2023 11:46 PM CDT) RBC None Seen 0-2, None Seen /HPF 10/26/2023 11:55 PM CDT [facility] WBC 0-2 0-2, 3-5, None Seen /HPF 10/26/2023 11:55 PM CDT [facility] BACTERIA Rare None Seen, Rare, Few Bacteria/H PF 10/26/2023 11:55 PM CDT [facility] EPITHELIAL CELLS Few None Seen, Few Epi/HPF 10/26/2023 11:55 PM T [facility] Urine URINE SPECIMEN / Unknown Non-Blood / Unknown 10/26/2023 11:46 PM CDT 10/26/2023 11:49 PM CDT Misha Styles III, MD URINE [facility] [address] [address] * (ABNORMAL) Urinalysis w Reflex Microscopic if Positive (10/26/2023 11:46 PM CDT) COLOR Yellow Yellow Color 10/26/2023 11:52 PM CDT [facility] CLARITY Clear Clear Clarity 10/26/2023 11:52 PM T [facility] SPECIFIC GRAVITY,URINE 1.020 1.010, 1.015, 1.020, 1.025 10/26/2023 11:52 PM T [facility] PH,URINE 6.0 6.0, 7.0, 8.0, 5.5, 6.5, 7.5, 8.5 10/26/2023 11:52 PM [facility] UROBILINOGEN, QUALITATIVE Normal Normal EU/dl 10/26/2023 11:52 PM [facility] PROTEIN, URINE Negative Negative mg/dL 10/26/2023 11:52 PM T [facility] GLUCOSE, URINE >=1000(A) Negative mg/dL 10/26/2023 11:52 PM [facility] KETONES,URINE Negative Negative mg/dL 10/26/2023 11:52 PM [facility] BILIRUBIN,URI NE Negative Negative 10/26/2023 11:52 PM [facility] OCCULT BLOOD,URINE Negative Negative 10/26/2023 11:52 PM [facility] NITRITE Negative Negative 10/26/2023 11:52 PM [facility] LEUKOCYTE ESTERASE Negative Negative 10/26/2023 11:52 PM [facility] Urine URINE SPECIMEN / Unknown Non-Blood / Unknown 10/26/2023 11:46 PM CDT 10/26/2023 11:49 PM CDT Misha Styles III, MD URINE Performing Organization Address City/State/[facility] Co de Phone Number [facility] [address] [address] * (ABNORMAL) CBC WITH AUTO DIFFERENTIAL (10/26/2023 11:29 PM CDT) Only the most recent of3 resultswithin the time period is included. WHITE BLOOD COUNT 6.5 4.5 - 11.0 thou/cu mm 10/26/2023 11:40 PM [facility] RED BLOOD COUNT 4.13(L) 4.30 - 5.90 mil/cu mm 10/26/2023 11:40 PM [facility] HEMOGLOBIN 12.3(L) 13.5 - 17.5 g/dL 10/26/2023 11:40 PM [facility] HEMATOCRIT 39.2 37.0 - 53.0 % 10/26/2023 11:40 PM [facility] MCV 95 80 - 100 fL 10/26/2023 11:40 PM [facility] MCH 29.8 26.0 - 34.0 pg 10/26/2023 11:40 PM [facility] MCHC 31.4(L) 32.0 - 36.0 g/dL 10/26/2023 11:40 PM [facility] RDW 14.7 11.5 - 15.5 % 10/26/2023 11:40 PM [facility] PLATELET COUNT 179 140 - 440 thou/cu mm 10/26/2023 11:40 PM [facility] MPV 9.4 6.5 - 11.0 fL 10/26/2023 11:40 PM [facility] % NEUT 64.9 % 10/26/2023 11:40 PM [facility] % LYMPH 14.5 % 10/26/2023 11:40 PM [facility] % MONO 8.6 % 10/26/2023 11:40 PM [facility] % EOS 11.7 % 10/26/2023 11:40 PM [facility] % BASO 0.3 % 10/26/2023 11:40 PM [facility] ABSOLUTE NEUTROPHILS 4.2 1.7 - 7.0 thou/cu mm 10/26/2023 11:40 PM [facility] ABSOLUTE LYMPHOCYTES 0.9 0.9 - 2.9 thou/cu mm 10/26/2023 11:40 PM [facility] ABSOLUTE MONOCYTES 0.6 <0.9 thou/cu mm 10/26/2023 11:40 PM [facility] ABSOLUTE EOSINOPHILS 0.8(H) <0.5 thou/cu mm 10/26/2023 11:40 PM [facility] ABSOLUTE BASOPHILS 0.0 <0.3 thou/cu mm 10/26/2023 11:40 PM [facility] Blood BLOOD SPECIMEN / Unknown Venipuncture / Unknown 10/26/2023 11:29 PM CDT 10/26/2023 11:31 PM CDT Misha Styles III, MD HEMATOLO GY [facility] [address] [address] * SCAN-CARDIAC STRIP (09/28/2023 8:00 AM CDT) Scanner OTHER * PLATELET COUNT (09/28/2023 4:53 AM CDT) Only the most recent of10 resultswithin the time period is included. PLATELET COUNT 239 140 - 440 thou/cu mm 09/28/2023 5:32 AM CDT [facility] MPV 9.2 6.5 - 11.0 fL 09/28/2023 5:32 AM CDT [facility] Blood BLOOD SPECIMEN / Unknown Venipuncture / Unknown 09/28/2023 4:53 AM CDT 09/28/2023 5:21 AM CDT Sandhya FAJARDO HEMATOLOGY [facility] SENDOUT INTERNAL ZIP [phone] [place] [address] * WHITE BLOOD COUNT (09/28/2023 4:53 AM CDT) Only the most recent of4 resultswithin the time period is included. WHITE BLOOD COUNT 7.3 4.5 - 11.0 thou/cu mm 09/28/2023 5:32 AM CDT [facility] NRBC 0.0 % 09/28/2023 5:32 AM CDT [facility] ABS NRBC 0.0 thou /cu mm 09/28/2023 5:32 AM CDT [facility] Blood BLOOD SPECIMEN / Unknown Venipuncture / Unknown 09/28/2023 4:53 AM CDT 09/28/2023 5:21 AM CDT Sandhya FAJARDO HEMATOLOGY [facility] SENDOUT INTERNAL ZIP [phone] [place] [address] * (ABNORMAL) HEMOGLOBIN (09/28/2023 4:53 AM CDT) Only the most recent of10 resultswithin the time period is included. HEMOGLOBIN 11.6(L) 13.5 - 17.5 g/dL 09/28/2023 5:32 AM CDT [facility] MCV 91 80 - 100 fL 09/28/2023 5:32 AM CDT [facility] Blood BLOOD SPECIMEN / Unknown Venipuncture / Unknown 09/28/2023 4:53 AM CDT 09/28/2023 5:21 AM CDT Sandhya FAJARDO HEMATOLOGY Performing Organization Address [facility]/ZIP Co de Phone Number [facility] SENDOUT INTERNAL ZIP [phone] [place] [address] * SCAN-CARDIAC STRIP (09/27/2023 7:43 PM CDT) Scanner OTHER * ECHO TTE LIMITED W CONTRAST W COLOR W DOPPLER (09/27/2023 12:26 PM CDT) EJECTION FRACTION 55% PROSOLV Anatomical Region Laterality Modality Ultrasound 09/27/2023 11:3 8 AM CDT Narrative 09/27/2023 12:[address] PM CDT [address] [address] Main: [email or web address] ? Transthoracic Echo Report JOSE GUADALUPE RIDLEY ID: [id number] Age: 63 : 1960 Ordering Provider: RAMANDEEP CHONG Exam Date: 09/27/2023 11:38 Gender: M Individualized Education Plan Aide: [facility] Height: 68 in BSA: 2.46 m?? [...] ?4.93 mmHg Rusty Major MD (Electronically Signed) [facility] Accredited Site Final Date: 27 September 2023 12:41 ICD-10 Codes: Procedure Note Rusty Major MD - 09/27/2023 [place] [address] Main: [email or web address] Transthoracic Echo Report ARISTIDESJAC JOSE GUADALUPERAMAKRISHNA Caballero ID: [id number] Age: 63 : 1960 Ordering Provider:RAMANDEEP CHONG Exam Date: 09/27/2023 11:38 Gender: M Individualized Education Plan Aide: [facility] Height: 68 in BSA: 2.46 m?? [...] 4.93 mmHg Rusty Major MD (Electronically Signed) [facility] Accredited Site Final Date: 27 September 2023 12:41 ICD-10 Codes: Ramandeep Pastoralyssia Chong BROADCAST FIELD SUPERVISOR ECHO ORD * POTASSIUM (09/27/2023 12:12 PM CDT) Only the most recent of4 resultswithin the time period is included. POTASSIUM 4.6 3.5 - 5.1 mmol/L 09/27/2023 12:45 PM CDT [facility] Blood BLOOD SPECIMEN / Unknown Butterfly / Unknown 09/27/2023 12:12 PM CDT 09/27/2023 12:28 PM CDT Grgeorio Elizabeth MD CHEMISTRY [facility] SENDOUT [place]NAL [address]IP [id number] [address] [place] [address] * SCAN-CARDIAC STRIP (09/27/2023 8:00 AM CDT) [...] Juanito Romeo MD ? 09/26/2023 ??5:44 PM [facility] Electrophysiology Laboratory Leadless Pacemaker (AV Micra) [...] procedure. Attending Signature: Juanito Romeo M.D. Cardiac Supervisor Salvage [facility] Manan Steele NP BACTERIOLOGIST DAIRY ORD * EP PPM (09/26/2023 4:54 PM CDT) Anatomical Region Laterality Modality Other 09/26/2023 4:54 PM CDT Manan Steele NP CV IMAGING * SCAN-CARDIAC STRIP (09/26/2023 8:36 AM CDT) Scanner OTHER * (ABNORMAL) Protime-INR (09/26/2023 5:26 AM CDT) Only the most recent of7 resultswithin the time period is included. INR 1.2 <1.3 09/26/2023 5:38 AM CDT [facility] PROTIME 13.3(H) 10.3 - 12.3 sec 09/26/2023 5:38 AM CDT [facility] Blood BLOOD SPECIMEN / Unknown Venipuncture / Unknown 09/26/2023 5:26 AM CDT 09/26/2023 5:30 AM CDT Narrative [facility] - 09/26/2023 5:38 AM CDT [...] seconds if the patient is on UFH. Gregoroi Elizabeth MD HEMATOLOGY [facility] SENDOUT [place] [address]IP [phone] [place] [address] * SCAN-PACER (09/26/2023 12:00 AM CDT) Narrative 09/26/2023 12:00 AM CDT Ordered by an unspecified provider. Other Clinical Staff OTHER * SCAN-CARDIAC STRIP (09/25/2023 8:00 AM CDT) Scanner OTHER * MAGNESIUM (09/25/2023 5:07 AM CDT) Only the most recent of8 resultswithin the time period is included. MAGNESIUM 2.1 1.6 - 2.4 mg/dL 09/25/2023 5:34 AM CDT [facility] Blood BLOOD SPECIMEN / Unknown Non-Lab Venipuncture / Unknown 09/25/2023 5:07 AM CDT 09/25/2023 5:15 AM CDT Gregorio Elizabeth MD CHEMISTRY [facility] SENDOUT [place] [address] [phone] [place] [address] * SCAN-CARDIAC STRIP (09/24/2023 11:32 PM CDT) [...] XR CHEST 1 VIEW PORTABLE LOCATION: [facility] MEDICAL IMAGING DATE: 09/24/2023 INDICATION: ET [...] EXAM: XR CHEST 1 VIEW PORTABLE LOCATION: [facility] MEDICAL IMAGING DATE: 09/24/2023 INDICATION: ET tube [...] - 1.27 mmol/L 09/24/2023 4:35 AM CDT [facility] Blood BLOOD SPECIMEN / Unknown Non-Lab Venipuncture / Unknown 09/24/2023 4:20 AM CDT 09/24/2023 4:32 AM CDT Gregorio Elizabeth MD CHEMISTRY [facility] SENDOUT [place]IP [address] [address] [place] [address] * (ABNORMAL) Arterial Blood Gas (09/24/2023 12:16 AM CDT) PH, ARTERIAL 7.33(L) 7.35 - 7.45 09/24/2023 12:25 AM CDT [facility] PCO2, ARTERIAL 52(H) 35 - 48 mmHg 09/24/2023 12:25 AM CDT [facility] PO2, ARTERIAL 164(H) 83 - 108 mmHg 09/24/2023 12:25 AM CDT [facility] HCO3, ARTERIAL 27 21 - 28 mmol/L 09/24/2023 12:25 AM CDT [facility] BASE EXCESS, ARTERIAL 0.6 -2.0 - 3.0 09/24/2023 12:25 AM T [facility] O2 SATURATION, ARTERIAL 100(H) 94 - 98 % 09/24/2023 12:25 AM CDT [facility] INSPIRED O2 95 09/24/2023 12:25 AM T [facility] Comment:Unit of Measure: Lit ers (L) if <=20; Percent (%) if >20 PATIENT TEMPERATURE 36.9 Degrees C 09/24/2023 12:25 AM CDT [facility] Blood ARTERIAL BLOOD SPECIMEN / Unknown Arterial / Unknown 09/24/2023 12:16 AM CDT 09/24/2023 12:21 AM CDT Gregorio Elizabeth MD CHEMISTRY Performing Organization Address City/State/[facility] Co de Phone Number [facility] SENDOUT INTERNAL ZIP [phone] [place] [address] * SCAN-CARDIAC STRIP (09/24/2023 12:00 AM CDT) Scanner OTHER * Thrombin Time - Immediate Postop (09/23/2023 9:45 PM CDT) Only the most recent of2 resultswithin the time period is included. THROMBIN TIME 15 <16 sec 09/23/2023 10:37 PM CDT [facility] Blood BLOOD SPECIMEN / Unknown Non-Lab Venipuncture / Unknown 09/23/2023 9:45 PM CDT 09/23/2023 9:55 PM CDT Gregorio Elizabeth MD HEMATOLOGY Performing Organization Address [facility]/ZIP Co de Phone Number [facility] SENDOUT INTERNAL ZIP [phone] [place] [address] * (ABNORMAL) APTT - Immediate Postop (09/23/2023 9:45 PM CDT) Only the most recent of15 resultswithin the time period is included. APTT 23(L) 28 - 36 sec 09/23/2023 10:37 PM CDT [facility] Blood BLOOD SPECIMEN / Unknown Non-Lab Venipuncture / Unknown 09/23/2023 9:45 PM CDT 09/23/2023 9:55 PM CDT Narrative [facility] - 09/23/2023 10:37 PM CDT Therapeutic Range: 57-87 seconds Gregorio Elizabeth MD HEMATOLOGY Performing Organization Address [facility] Co de Phone Number [facility] SENDOUT [place]NAL ZIP [phone] [place] [address] * (ABNORMAL) Fibrinogen, Quantitative - Immediate Postop (09/23/2023 9:45 PM CDT) Only the most recent of2 resultswithin the time period is included. FIBRINOGEN,MOHIT NTITATIVE 453(H) 193 - 401 mg/dL 09/23/2023 10:37 PM CDT [facility] Blood BLOOD SPECIMEN / Unknown Non-Lab Venipuncture / Unknown 09/23/2023 9:45 PM CDT 09/23/2023 9:55 PM CDT Gregorio Elizabeth MD HEMATOLOGY Performing Organization Address [facility]/ZIP Co de Phone Number [facility] SENDOUT INTERNAL ZIP [phone] [place] [address] * (ABNORMAL) Cardiac Thromboelastography (09/23/2023 8:05 PM CDT) Only the most recent of2 resultswithin the time period is included. [facility] DESTINI REASON Diffuse Cardiac Bleeding 09/23/2023 10:17 PM CDT [facility] INTEM CT 212(H) 122 - 208 s 09/23/2023 10:17 PM CDT [facility] INTEM CFT 71 45 - 110 s 09/23/2023 10:17 PM CDT [facility] INTEM ALPHA 75 70 - 81 ?? 09/23/2023 10:17 PM CDT [facility] INTEM A10 57 46 - 67 mm 09/23/2023 10:17 PM CDT [facility] INTEM A20 63 51 - 72 mm 09/23/2023 10:17 PM CDT [facility] INTEM MCF 64 51 - 72 mm 09/23/2023 10:17 PM CDT [facility] INTEM ML 7 % 09/23/2023 10:17 PM CDT [facility] INTEM LI30 99 % 09/23/2023 10:17 PM CDT [facility] EXTEM CT 108(H) 43 - 82 s 09/23/2023 10:17 PM CDT [facility] EXTEM CFT 81 48 - 127 s 09/23/2023 10:17 PM CDT [facility] EXTEM ALPHA 74 65 - 80 ?? 09/23/2023 10:17 PM CDT [facility] EXTEM A10 60 46 - 67 mm 09/23/2023 10:17 PM CDT [facility] EXTEM A20 66 50 - 70 mm 09/23/2023 10:17 PM CDT [facility] EXTEM MCF 66 52 - 70 mm 09/23/2023 10:17 PM CDT [facility] EXTEM ML 7 % 09/23/2023 10:17 PM CDT [facility] EXTEM LI30 100 % 09/23/2023 10:17 PM CDT [facility] FIBTEM CT 116 s 09/23/2023 10:17 PM CDT [facility] FIBTEM CFT 593 s 09/23/2023 10:17 PM CDT [facility] FIBTEM ALPHA 67 ?? 09/23/2023 10:17 PM CDT [facility] FIBTEM A10 20 7 - 24 mm 09/23/2023 10:17 PM CDT [facility] FIBTEM A20 22 7 - 24 mm 09/23/2023 10:17 PM CDT [facility] FIBTEM MCF 23 7 - 24 mm 09/23/2023 10:17 PM CDT [facility] FIBTEM ML 0 % 09/23/2023 10:17 PM CDT [facility] FIBTEM LI30 100 % 09/23/2023 10:17 PM CDT [facility] HEPTEM CT 248(H) 122 - 208 s 09/23/2023 10:17 PM CDT [facility] HEPTEM CFT 83 45 - 110 s 09/23/2023 10:17 PM CDT [facility] HEPTEM ALPHA 73 70 - 81 ?? 09/23/2023 10:17 PM CDT [facility] HEPTEM A10 51 mm 09/23/2023 10:17 PM CDT [facility] HEPTEM A20 53 51 - 72 mm 09/23/2023 10:17 PM CDT [facility] HEPTEM MCF 54 51 - 72 mm 09/23/2023 10:17 PM CDT [facility] HEPTEM ML 10 % 09/23/2023 10:17 PM CDT [facility] Blood BLOOD SPECIMEN / Unknown Non-Lab Venipuncture / Unknown 09/23/2023 8:05 PM CDT 09/23/2023 8:13 PM CDT Milly [employer]SE [facility] SENDOUT INTERNAL ZIP [address] [place] [address] * CVC TRIPLE LUMEN, HCHG STOPCOCK PR5, HCHG ANES US GUIDE FOR VASC ACCESS, HCHG TUBING PR1, HCHG TUBING PR5, HCHG TUBING PR1, HCHG CATH INFUSION PR30, HCHG ADPTR PR1, HCHG KIT MONITORING PR5, HCHG TUBING PR5, HCHG DRSG PR5, HCHG DRSG PR1, AHC AN INTRODUCER 2 LUMEN PERFORMABLE, HCHG KIT PR5, HCHG CATHINFUSION PR70 (09/23/2023 4:34 PM CDT) Marylou Blanc MD [...] HCHG KIT PR5 (09/23/2023 4:34 PM CDT) Narrative Marylou De [...] ??Comment: Supplemental O2: supplemental oxygen. ??Comment:. Vessel Production Cook Additional supplies used to locate vessel: no [...] . Video documentation of the exam on [employer] PRECPB EXAM The ZACHARY probe was [...] exam unchanged from pre-CPB. Images saved to time study observer. Teeth and oropharynx unchanged from pre-op. Probe [...] >90 mL/min/1.7 3m2 09/22/2023 3:42 PM CDT [facility] Comment:As of 2021, eG FR is calculated by the CKD-EPI creatinine equation without race adjustment. ??eGFR can be influenced by muscle mass, exercise, and diet. ??The reported eGFR is an estimation only and is only applicable if the renal function is stable. CREATININE 1.13 0.70 - 1.20 mg/dL 09/22/2023 3:42 PM CDT [facility] Blood BLOOD SPECIMEN / Unknown Butterfly / Unknown 09/22/2023 3:12 PM CDT 09/22/2023 3:16 PM CDT Ramandeep Chong NP CHEMISTRY [facility] SENDOUT INTERNAL ZIP [address] [address] [place] [address] * RED BLOOD CELLS EA UNIT (09/22/2023 9:35 AM CDT) Only the most recent of2 resultswithin the time period is included. CROSSMATCH Compatible Compatible [facility] BLOOD BANK PRODUCT BLOOD TYPE O Rh Negative [facility] BLOOD BANK PRODUCT ID NUMBER [id number] [facility] BLOOD BANK PRODUCT STATUS /Relea sed [facility] BLOOD BANK PRODUCT DESCRIPTION RBC -1 LR [facility] PRODUCT CODE [id number] [facility] Ramandeep Chong NP BLOOD BANK Performing Organization Address City/[facility]/ZIP Co de Phone Number [facility] [address] [place] [phone] * EXTRA TUBE LAVENDER (09/22/2023 9:34 AM CDT) Blood BLOOD SPECIMEN / Unknown Extra Tube / Unknown 09/22/2023 9:34 AM CDT 09/22/2023 10:58 AM CDT Doctor Unknown LABORATORY Performing Organization Address City/[facility]/ZIP Co de Phone Number [facility] SENDOUT INTERNAL ZIP [address] [place] [address] * RBC W TYPE AND SCREEN (09/22/2023 9:34 AM CDT) ABORH O Rh Negative 09/22/2023 11:35 AM CDT [facility] BLOOD BANK ANTIBODY SCREEN Negative Negative 09/22/2023 11:35 AM CDT [facility] BLOOD BANK SPECIMEN EXPIRATION DATE/TIME 09/25/23 23:59 09/22/2023 11:35 AM CDT [facility] Blood BLOOD SPECIMEN / Unknown Venipuncture / Unknown 09/22/2023 9:34 AM CDT 09/22/2023 10:49 AM CDT Ramandeep Chong NP BLOOD BANK Performing Organization Address City/[facility]/ZIP Co de Phone Number [facility]ANK [address] [place] [address] * SCAN-CARDIAC STRIP (09/22/2023 8:13 AM CDT) Scanner OTHER * HEMATOCRIT (09/22/2023 4:55 AM CDT) Only the most recent of4 resultswithin the time period is included. HEMATOCRIT 45.1 37.0 - 53.0 % 09/22/2023 5:21 AM CDT [facility] Blood BLOOD SPECIMEN / Unknown Venipuncture / Unknown 09/22/2023 4:55 AM CDT 09/22/2023 5:18 AM CDT Narrative [facility] - 09/22/2023 5:21 AM CDT Every morning while on IV heparin. Every morning while on IV heparin. Necessary every morning while on IV heparin. Wendy King DO HEMATOLOGY [facility] SENDOUT INTERNAL ZIP [address] [address] [place] [address] * SCAN-CARDIAC STRIP (09/22/2023 1:22 AM CDT) [...] CDT 1. ?Cholelithiasis. 2. ?Please refer to airplane cover maker's dictation for the cardiac CT report. Narrative 09/22/2023 3:42 PM CDT Results are automatically released to your [employer]) account once available, in compliance with federal regulations. ??This means that you may see your results before your provider has had a chance to review them. ??Please allow 2-3 business days for your provider to comment on the results. CT ANGIOGRAM OF THE THORACIC AORTA, 09/20/2023 INDICATION: Pre-coronary artery bypass grafting. CONCLUSIONS: This is a dual read study - please review [facility] over-read below for incidental non cardiac [...] cc/sec, was performed on a ??[employer] SOMATOM Intelliworks CT scanner. The imaging protocol was individualized to minimize radiation exposure. The following ECG-gated acquisition protocol was used: High pitch prospective. ??Pulse range 300-300. Tube potential: 120 kV. Tube current: 5004 mAs. Total DLP: 1158 mGy*cm; mSv: 16.2; CTDI: 54.3. Image post processing was performed on a [employer] Workstation. Images were reconstructed at a slice [...] for incidental non-cardiac findings. Monique Finn MD [facility] AB/car For Patients: As a result of the Cures Act, medical imaging exams and procedure reports are released immediately into your electronic medical record. You may view this report before your referring provider. If you have questions, please contact your health care provider. EXAM: OVERREAD: DETAILED [facility] EXTRACARDIAC OVERREAD OF CARDIAC CT LOCATION: [facility] MEDICAL IMAGING DATE: 09/20/2023 INDICATION: Preoperative [...] EXAM: US ARTERIAL UPPER EXTREMITY LEFT LOCATION: [facility] MEDICAL IMAGING DATE: 09/20/2023 INDICATION: Severe coronary [...] US ARTERIAL UPPER EXTREMITY LEFT LOCATION: [facility] MEDICAL IMAGING DATE: 09/20/2023 INDICATION: Severe [...] VEIN MAPPING LOWER EXTREMITY BILATERAL LOCATION: [facility] MEDICAL IMAGING DATE: 09/20/2023 INDICATION: Graft [...] VEIN MAPPING LOWER EXTREMITY BILATERAL LOCATION: [facility] MEDICAL IMAGING DATE: 09/20/2023 INDICATION: Graft [...] patent, venous diameters as describedabove. Ramandeep Chong BROADCAST FIELD SUPERVISOR US * SCAN-CARDIAC STRIP (09/20/2023 8:44 AM [...] Li MD - 09/19/2023 5:59 PM CDT [facility] Cardiac Catheterization Report Name: JOSE GUADALUPE Owens KEYANA Event Date: 09/19/2023 17:17 Excellian ID #: [id number] [employer] [facility] [employer] [facility] #: [id number] Diagnostic Physician: KAMRAN LI [facility] Primary Alley Worker: RACHID MÉNDEZ Referring Physician: Date: 1960 Gender: [...] < 70 ;Triglycerides < 100 Consent & Mercer Protocol The risks, benefits, and alternatives of the procedure were discussed withthe patient and written informed consent was obtained. Mercer protocol was followed. TIME OUT conducted just prior tostarting procedure confirmed patient identity, site/side, procedure,patient position, and availability of correct equipment and implants (ifapplicable). Staff Name Title KAMRAN LI Diagnostic Alley Worker Rafaela Bailey RN Nurse Dang Ghosh RN [...] min Cumulative Air Kerma: 493 mGy DAP: 47368 mGy/cm2 Contrast: Omnipaque, 50 ml Visipaque 320, [...] healthcare professional providing the sedation ends personal [id number]-[id number] time with the patient. The medications listed above were verbally ordered by me and read back tome as documented above. Refer to the procedure log report for additional case details. electronically signed on 09/19/2023 5:59:16 PM with status of Final Kamran Li MD [address], [place] [address] [address] [place] [address] (p) [phone](f) Quentin Aiken MD CV IMAGING * ECHO TTE COMPLETE W CONTRAST (09/19/2023 10:48 AM CDT) EJECTION FRACTION 45-50% PROSOLV Anatomical Region Laterality Modality Ultrasound 09/19/2023 10:1 2 AM CDT Narrative 09/19/2023 11:44 [place] [address] Main: [email or web address] ? Transthoracic Echo Report JOSE GUADALUPE RIDLEY Federico ID: [id number] Age: 63 : 1960 Ordering Provider: WENDY KING Exam Date: 09/19/2023 10:12 Gender: M Individualized Education Plan Aide: [facility] Height: 71 in BSA: 2.57 m?? BP: 141 / 82 Weight: 318 lbs BMI: 44.4 kg/m?? HR: 85 Location: Inpatient (Portable) Rhythm: Normal Sinus Rhythm Procedure Components: 2D imaging with contrast, Color Doppler, Spectral Doppler Indications: Chest pain chest pressure chest tightening Technical Quality: Fair Contrast: Definity Constrast Dose (ml): 0.3 [facility]#: [id number] Final Conclusion 1. Technically challenging echocardiogram. 2. [...] ZScore: 0.00 Rusty Major MD (Electronically Signed) [facility] Accredited Site Final Date: 19 September 2023 11:44 ICD-10 Codes: Procedure Note Rusty Major MD - 09/19/2023 [place] [address] Main: [email or web address] Transthoracic Echo Report JOSE GUADALUPE RIDLEY Songquentin ID: [id number] Age: 63 : 1960 Ordering Provider:WENDY KING Exam Date: 09/19/2023 10:12 Gender: M Individualized Education Plan Aide: [facility] Height: 71 in BSA: 2.57 m?? BP: 141 / 82 Weight: 318 lbs BMI: 44.4 kg/m?? HR: 85 Location: Inpatient (Portable) Rhythm: Normal Sinus Rhythm Procedure Components: 2D imaging with contrast, Color Doppler, SpectralDoppler Indications: Chest pain chest pressure chest tightening Technical Quality: Fair Contrast: Definity Constrast Dose (ml): 0.3 [facility]#: [id number] Final Conclusion 1. Technically challenging echocardiogram. 2. [...] ZScore: 0.00 Rusty Major MD (Electronically Signed) [facility] Accredited Site Final Date: 19 September 2023 11:44 ICD-10 Codes: Wendy King DO ECHO ORD * SCAN-CARDIAC STRIP (09/19/2023 8:00 AM CDT) Scanner OTHER * SCAN-CARDIAC STRIP (09/19/2023 4:02 AM CDT) Scanner OTHER * SCAN-CARDIAC STRIP (09/18/2023 7:42 PM CDT) Scanner OTHER * SCAN-CARDIAC STRIP (09/18/2023 7:55 AM CDT) Scanner OTHER * (ABNORMAL) HEMOGLOBIN A1C SCREENING (09/18/2023 4:17 AM CDT) Pathologist [facility] HEMOGLOBIN A1C SCREENING 6.5(H) <=6.4 % 09/18/2023 7:22 AM [facility] Blood BLOOD SPECIMEN / Unknown Venipuncture / Unknown 09/18/2023 4:17 AM CDT 09/18/2023 4:27 AM T [facility]AT[facility] - 09/18/2023 7:22 AM CDT ? (<5.7%) ?Normal ? (5.7% to 6.4%) ? Indicates prediabetes ? (>=6.5%) ? Confirms diabetes Falsely low levels may be seen with: Recent Transfusion, Recent Significant Blood Loss, Hemolytic Diseases, or Falsely elevated levels may be seen with: Untreated Anemias, Splenectomy Wendy King DO CHEMISTRY [facility] SENDOUT INTERNAL ZIP [address] [place] [address] * LIPID PANEL (09/18/2023 4:17 AM CDT) [facility] CHOLESTEROL,TOTAL 174 100 - 199 mg/dL 09/18/2023 4:54 AM [facility] Comment: Cholesterol, Total Reference Ranges Desirable <200 mg/dL Borderline 200-239 mg/dL High >=240 mg/dL TRIGLYCERIDES 105 <150 mg/dL 09/18/2023 4:54 AM [facility] HDL CHOLESTEROL 42 >40 mg/dL 4:54 AM [facility] NON-HDL CHOLESTEROL 132 <145 mg/dl 09/18/2023 4:54 AM [facility] CHOL/HDL RATIO 4.14 <4.50 09/18/2023 4:54 AM [facility] LDL CHOLESTEROL 111 <=130 mg/dL 09/18/2023 4:54 AM [facility] VLDL CHOLESTEROL 21 <=30 mg/dL 09/18/2023 4:54 AM [facility] PROVIDER ORDERED STATUS RANDOM 09/18/2023 4:54 AM [facility] Blood BLOOD SPECIMEN / Unknown Venipuncture / Unknown 09/18/2023 4:17 AM CDT 09/18/2023 4:27 AM CDT Wendy King DO CHEMISTRY [facility] SENDOUT INTERNAL ZIP [address] [address] [place] [address] * SCAN-CARDIAC STRIP (09/18/2023 3:10 AM CDT) [...] 9:53 PM CDT Pritesh Boyer MD CHEMISTRY Performing Organization Address City/[facility]/ZIP Co de Phone Number [facility] [address] [phone] * (ABNORMAL) TROPONIN T (HS) ACUTE W/2HR [...] population. Pritesh Boyer MD CHEMISTRY [facility] [address] [phone] * (ABNORMAL) COMP METABOLIC PANEL (09/17/2023 7:55 PM CDT) SODIUM 138 136 - 145 mmol/L 09/17/2023 8:29 PM CDT [facility] POTASSIUM 4.5 3.5 - 5.1 mmol/L 09/17/2023 8:29 PM CDT [facility] CHLORIDE 102 98 - 107 mmol/L 09/17/2023 8:29 PM [facility] CO2,TOTAL 27 22 - 29 mmol/L 09/17/2023 8:29 PM [facility] ANION GAP 9 5 - 18 09/17/2023 8:29 PM [facility] GLUCOSE 229(H) 70 - 99 mg/dL 09/17/2023 8:29 PM [facility] CALCIUM 9.2 8.8 - 10.2 mg/dL 09/17/2023 8:29 PM [facility] BUN 17 8 - 23 mg/dL 09/17/2023 8:29 PM [facility] CREATININE 0.93 0.70 - 1.20 mg/dL 09/17/2023 8:29 PM [facility] BUN/CREAT RATIO 18 10 - 20 8:29 PM [facility] eGFR >90 >90 mL/min/1.7 3m2 09/17/2023 8:29 PM [facility] Comment:As of 2021, eG FR is calculated by the CKD-EPI creatinine equation without race adjustment. ??eGFR can be influenced by muscle mass, exercise, and diet. ??The reported eGFR is an estimation only and is only applicable if the renal function is stable. ALBUMIN 3.9(L) 4.0 - 4.9 g/dL 09/17/2023 8:29 PM [facility] PROTEIN,TOTAL 7.2 6.0 - 8.0 g/dL 09/17/2023 8:29 PM [facility] BILIRUBIN,TOTAL 0.5 0.0 - 1.2 mg/dL 09/17/2023 8:29 PM [facility] ALK PHOSPHATASE 114 40 - 129 IU/L 09/17/2023 8:29 PM [facility] ALT (SGPT) 30 10 - 50 IU/L 09/17/2023 8:29 PM [facility] AST (SGOT) 37 10 - 50 IU/L 09/17/2023 8:29 PM [facility] Blood BLOOD SPECIMEN / Unknown IV Start / Unknown 09/17/2023 7:55 PM CDT 09/17/2023 7:56 PM CDT Pritesh Boyer MD CHEMISTRY [facility] [address] [place] [address] * (ABNORMAL) REFERRAL SUSCEPTIBILITY (09/02/2023 8:26 AM CDT) CULTURE RESULT(A) 09/07/2023 10:49 AM CDT [facility] CULTURE Streptococcus dysgalactiae (Beta Strep group C or G) 09/07/2023 10:49 AM CDT [facility] Other (Left ankle) [...] G) CLARITHROMYCIN S Doctor Unknown MICROBIOLOGY [facility] [address] [place] [address], [place] from Last 3 Months Advance Directives * [...] Code Status Discussion: Not Discussed Care Teams [employer]ner'[employer] Mate G Relationship Specialty Start Date End Date Munir Sahu MD [address] [place] [address] PCP - General Family Practice 09/17/23 [facility] [address] [place] [address] 09/28/23
--- OUTSIDE RECORDS SUMMARY | 2023-11-11 07:53 | XMS_ITS | Encounter Summary ---
Author Organization [facility] Address [address] [place] [address] Care Team Providers Care Dyno Technician Name Role Phone Elsewhere, Pcp Primary Care Provider Unavailabl e Reason for Visit * Reason Comments Chest Pain Encounter Details Date Type Department Care Team (Late st Contact Info) Description 09/17/2023 7:59 PM CDT - 09/17/2023 11:59 PM CDT Emergency [facility] [address] [place] [id number] Non-ST Elevation Myocardial Infarction (HCC) (Primary Dx) [...] bandage 12 10/03/2017 FreeStyle João 14 Day [place] misc 02/17/2021 FreeStyle João 14 Day Sensor [...] Primary documented in this encounter Care Teams Dyno Technician Relationship Specialty Start Date End Date Elsewhere, Pcp PCP - General Family Medicine 06/15/17 documented as of this encounter
== END 2023-11-11 07:51 | disposition home or self-care (01) ==
LOC: WOUND 07:50
PROVIDERS: PCP Family Medicine; Visit Provider Nurse Practitioner Family
DX: I87.313 Chronic venous hypertension (idiopathic) with ulcer of bilateral lower extremity (principal); I87.2 Venous insufficiency (chronic) (peripheral); I89.0 Lymphedema, not elsewhere classified; E11.622 Type 2 diabetes mellitus with other skin ulcer; L97.322 Non-pressure chronic ulcer of left ankle with fat layer exposed; L97.212 Non-pressure chronic ulcer of right calf with fat layer exposed; Z79.4 Long term (current) use of insulin
CPT/HCPCS: 11042

== ENCOUNTER 2023-11-18 07:45 | Outpatient (CLI) | payer OTHER, SELFPAY ==
--- OUTSIDE RECORDS SUMMARY | 2023-11-18 07:47 | XMS_ITS | Referral Summary ---
Author Organization [facility] Address [address] [place] [address] Care Team Providers Care Cargo And Container Inspector Name Role Phone Munir Sahu MD Primary [...] Advance Directives For more information, please contact: [phone] * Full Code (Latest Code Status on File) Date Activated Date Inactivated Comments 11/06/2019 2:19 PM 11/07/2019 9:06 PM All basic and advanced life-sustaining interventions are performed as appropriate Question Answer Comments Code status determined by: Unable to det ermine; FULL CODE until documents or legal decision maker available Care Teams Cargo And Container Inspector Relationship Specialty Start Date End Date Munir Sahu MD PCP - General Family Practice 10/22/19
--- OUTSIDE RECORDS SUMMARY | 2023-11-18 07:47 | XMS_ITS | Clinical Summary ---
Author Organization [facility] Address [address] [place] [address] Care Team Providers Care Cinder Block Mason Name Role Phone Munir Sahu MD Primary [...] Advance Directives For more information, please contact: [phone] * Full Code (Latest Code Status on File) Date Activated Date Inactivated Comments 11/06/2019 2:19 PM 11/07/2019 9:06 PM All basic and advanced life-sustaining interventions are performed as appropriate Question Answer Comments Code status determined by: Unable to det ermine; FULL CODE until documents or legal decision maker available Care Teams Cinder Block Mason Relationship Specialty Start Date End Date Munir Sahu MD PCP - General Family Practice 10/22/19
--- OUTSIDE RECORDS SUMMARY | 2023-11-18 07:47 | XMS_ITS | Data Portability ---
Author Organization [facility] Address [address] [place] [address] Care Team Providers Care Monitor Worker Name Role Phone GORDY SLO Primary Care Provider Assessment Encounter Date Assessment Date Assessment LastModified by Organization Details LastModified Time 11/21/2019 11/21/2019 59M with [id number] [place] 3+4=7 prostate cancer s/p RALP. Discussed pathology, risk of recurrence, need for ongoing PSA monitoring. Small anastomotic leak, will cont Choi x 1 more week. Worsened LE edema, likely chronic, but will check LE u/s to be sure no DVT. [email or web address] Not available 11/21/2019 14:07:03 01/02/2020 01/02/2020 59M with [id number] [place] 3+4=7 prostate cancer s/p RALP. 1) Prostate cancer - f/u 4 months with PSA 2) EVETTE, moderate - cont Kegels - consider PFPT 3) ED - Cialis PRN [email or web address] Not available 01/02/2020 09:34:03 05/01/2020 05/01/2020 60M with [id number] [place] 3+4=7 prostate cancer s/p RALP 6 months ago. MICHAEL. 1) Prostate cancer - f/u 6 months with PSA 2) EVETTE, moderate - cont Kegels - consider PFPT 3) ED - Cialis PRN [email or web address] Not available 05/01/2020 10:47:29 10/24/2020 10/24/2020 60M with [id number] [place] 3+4=7 prostate cancer s/p RALP 1 [...] y referr al [address] [facility], [address], [facility] [address], [place], [address], 09:57:49 Procedures None record ed. Surgeries None record ed. Imaging None record ed. Medication Orders None record ed. Patient TargetsNo targets recorded. Patient Instructions Encounter Date Encounter Id Patient Instructions Last Modified By Organization Details Last Modified Time 11/28/2019 [id number] To follow up sumaya Doshi at his [...] Not Available [facility] [address], [place], [address], 05/01/2020 10:40:29 02/11/2020 lab* PSA <0.04 normal Not Available Not Available 01/07/2020 12:33:24 01/02/2020 PSA, serum or plasm a PSA, Total <0.04 ng/Ml Not Available [facility] [address], [place], [address], 01/02/2020 09:14:10 10/25/19 21 10/24/2020 PSA, serum or plasm a PSA, Total <0.04n g/mL Not Available [facility] [address], [place], [address], 10/24/2020 10:45:30 11/23/19 20 11/21/2019 CT, pelvi s, w/o contr ast No observ ation record ed. cedric Not Available 11/29/19 17:13:18 Result Notes None recorded. Problems Name Status Onset Date Resolution Date Notes Provider Name and Address Organization Details Recorded Time Carcinoma of prostate Active 11/21/[address] [facility] 11/21/2019 10:59:25 Male urinary stress incontinence Active 05/01/19 21 Momo delacruz MD, PHD [address] [place] [address], [phone], [facility] 05/01/2020 10:47:38 Primary erectile dysfunction Active 05/01/19 21 Momo delacruz MD, PHD [address] [place] [address], [phone], [facility] 05/01/2020 10:47:58 Problem Notes None recorded. Procedures Surgical History Date Name Laterality Status Provider Name and Address Organization Details Recorded Time 10/25/19 21 Blood Draw/MEDICAL PRACTICE ASSISTANT/PSA RESULTS completed Momo baez MD, PHD [address] [place] [address], [phone], [facility] 10/24/2020 10:45:26 05/01/19 21 Blood Draw/MEDICAL PRACTICE ASSISTANT/PSA RESULTS completed Momo baez MD, PHD [address] [facility],[address], [place], [address], [facility] 05/01/2020 10:40:25 01/02/20 20 Blood Draw/MEDICAL PRACTICE ASSISTANT/PSA RESULTS completed Janice Ayala [facility] 01/02/2020 09:14:04 11/28/19 20 Choi Catheter Removal completed Caroline Smith [facility] 02/04/2020 12:00:10 Prostatectomy completed Momo baez MD, PHD [address] [facility],[address], [place], [address], [facility] 10/24/2020 10:44:48 colonoscopy completed Monica Awan [facility], [facility] 12/09/2020 10:47:07 Imaging Results Imaging Date Name Status LastModified by Organiz ation Details LastModified Time 11/21/2019 CT, pelvis, w/o contrast completed cedric Information not available 11/29/2019 17:13:18 Procedure Notes None recorded. Medical Equipment None Reported. Allergies Allergen ID Allergen Name Allergen Category Reaction Reaction Severity Criticality Documentation Date Start Date Code Code System Note Provider Name and Address Organization Details Recorded Time [id number] silver medicatio n Not available Not available Not available 11/21/2019 01976 43 RxNorm Caroline Smith [facility] 0 11:09:54 736570 adhesive tape environme nt,medica tion Not available Not available Not available 11/21/2019 Caroline Smith [facility] 0 11:10:01 Medications Name Sig Start Date [...] Updated DateTime 01/02/2020 180.34 cm 39.3 kg/m2 349966.05 g Caroline Rojasyoandy [facility] 01/02/2020 09:09:40 Date Recorded Body height Body mass index (BMI) Body weight Provider Name and Address Organization Details Last Updated DateTime 05/01/2020 180.34 cm 39.3 kg/m2 812248.05 g Momo baez MD, PHD [address] [place] [address] 05/01/2020 10:39:59 Date Recorded Body height Body mass index (BMI) Body weight Provider Name and Address Organization Details Last Updated DateTime 10/24/2020 180.34 cm 39.7 kg/m2 501570.83 g Momo baez MD, PHD [address] [place] [address] 10/24/2020 10:44:13 Date Recorded Body height Body mass index (BMI) Body weight Provider Name and Address Organization Details Last Updated DateTime 11/21/2019 180.34 cm 39.3 kg/m2 224587.05 g Caroline Rojasyoandy [facility] 11/21/2019 11:09:04 Social History Question Answer Notes LastModified by Organizat ion Details LastModified Time Tobacco Smoking Status Never Smoker Caroline kruger [facility] 11/21/2019 11:10:15 What Is Your Level Of [...] Encounter Closed Date Diagnosis/Indication Diagnosis SNOMED-CT Code [id number] Momo delacruz MD, PHD [facility] [employer] [address] [place] [address] 11/21/2019 10:45:55 11/21/2019 15:00:28 Malignant tumor of prostate [id number] Caroline Gneiting [facility] [employer] [address] [address] [place] [address] 11/28/2019 09:57:13 02/06/2020 03:54:17 [id number] Momo delacruz MD, PHD [facility] [employer] [address] [place] [address] 01/02/2020 08:46:59 01/02/2020 14:22:16 Malignant tumor of prostate 895474290 [id number] Momo delacruz MD, PHD [facility] [employer] [address] [place] [address] 05/01/2020 09:26:51 05/01/2020 12:03:29 Malignant tumor of prostate 710888753 Primary er ectile dysfunction [id number] [id number] Momo delacruz MD, PHD [facility] [employer] [address] [place] [address] 10/24/2020 10:28:04 10/27/2020 16:45:05 Carcinoma of prostate 744549491 Malignant tumor of prostate 471816065 Primary er ectile dysfunction 386991575 Male urina ry stress incontinence 959981285 Health Concerns Section Related Observation LastModified by Organization Detai ls LastModified Time None Recorded Concern Status LastModified by Organization Details LastModified Time None Recorded Advance Directives Directive None Recorded Payers Encounter Date Sequence Insurance Name Policy Number Policy Archibald Covered Member ID Archibald Member ID Guarantor Name 11/21/2019 1 [facility] [id number] Julien Ridley [id number] Julien Ridley 11/28/2019 1 [facility] [id number] Julien Ridley [id number] Julien Ridley 01/02/2020 1 [facility] [id number] Julien Ridley [id number] Julien Ridley 05/01/2020 1 [facility] [id number] Julien Ridley [id number] Julien Ridley 10/24/2020 1 [facility] [id number] Julien Ridley [id number] Julien Ridley Notes Date Note Type Note Provider Name and Address Organization Details Recorded Time 11/21/2019 text/html HPI Notes: 59M s /p RALP 11/06/19 for [id number] [place] 3+4=7 prostate cancer (0/12 LN, -SMS) Overall doing well. Some drainage umbilical incision. Chronic LE edema worse especially R>L. Some hematuria when having BMs. No fever. Eating ok. Minimal pain. CT Cystogram today: small anastomotic leak PSA (07/27/19): 6.5 CONSTANZA: cT1c, 35g (J Carlos) MRI: none Biopsy (08/30/19): 23g, 3/12 cores (LLM, LMB, LMM [place] 3+4=7 up to 40%) Pre-op ED: 05/09 Momo Holliday MD, PHD [address] [facility],[address], [place], [address], [facility] 11/21/2019 14:07:42 01/02/2020 text/html HPI Notes: 59M with [id number] [place] 3+4=7 prostate cancer (0/12 LN, -SMS) s/p RALP 11/06/19. Small anastomotic leak, catheter removed 11/28/19. Overall doing well. C/o some leakage with BMs and position changes. Uses multiple depends per day...... LE u/s to eval for dvt last visit was negative PSA Results 07/27/19: 6.5 01/02/20: <0.04 UF: 07/07 EF: / Pre-op EF: / Momo Holliday MD, PHD [address] [place] [address],[address], [address], [facility] 01/02/2020 09:35:54 05/01/2020 text/html HPI Notes: 60M with [id number] [place] 3+4=7 prostate cancer (0/12 LN, -SMS) s/p RALP 11/06/19. Small anastomotic leak, catheter removed 11/28/19. Overall doing well. C/o some leakage with BMs and position changes. Uses 4ppd which is improvement. No problems with incisions. PSA Results 07/27/19: 6.5 01/02/20: <0.04 05/01/20: <0.04 UF: 3/5 EF: 5/5 Pre-op EF: 2/5 Momo Holliday MD, PHD [address] [place] [address],[address], [phone], [facility] 05/01/2020 10:48:15 10/24/2020 text/html HPI Notes: 60M with [id number] [place] 3+4=7 prostate cancer (0/12 LN, -SMS) s/p RALP 11/06/19 Overall doing well. C/o some leakage with BMs and position changes and sexual activity. Uses 4ppd still. No problems with incisions. PSA Results 07/27/19: 6.5 01/02/20: <0.04 05/01/20: <0.04 10/24/20: <0.04 UF: 3/5 EF: 5/5 Pre-op EF: 2/5 Momo Holliday MD, PHD [address] [place] [address],[address] [place] [address], [phone], [facility] 10/24/2020 11:30:55
--- OUTSIDE RECORDS SUMMARY | 2023-11-18 07:48 | XMS_ITS | Clinical Summary ---
Author Organization [facility] Address [address] [place] [address] Care Team Providers Care Client Executive Name Role Phone Elsewhere, Pcp Primary Care Provider Unavailabl e Source Comments Patient records contain information from all sites at [facility]. For routine questions regarding patient records, call [phone] during business hours, M-F 8:00 AM - 5:00 PM Central Time. Record requests for emergency care only can be directed to [phone] at any time.[facility] Allergies Active Allergy Reactions Criticality Noted Date Comments Dimethicone-Petrolatum Rash 02/01/2014 Horse [place] Rash 07/16/2016 Silver Sulfate-Foam Bandage Rash 02/02/20 [...] mouth. 11/07/2019 Active FreeStyle João 14 Day [place] misc 02/17/2021 Active FreeStyle João 14 Day [...] CDT - 10/26/2023 11:59 PM CDT Emergency [facility] [address] [place] [address] Hyperglycemia (Primary Dx) Discharge Disposition: Home or Self Care 09/17/2023 7:59 PM CDT - 09/17/2023 11:59 PM CDT Emergency [facility] [address] [place] [address] Non-ST Elevation Myocardial Infarction (HCC) (Primary Dx) [...] Comments Blood Pressure 160/85 04/17/2021 1:03 PM CRIME LAB ANALYST Pulse 74 04/17/2021 1:03 PM CRIME LAB ANALYST Temperature 36.4 ??C (97.5 ??F) 04/17/2021 1:03 PM CS T Respiratory Rate 14 02/15/2021 1:17 PM CRIME LAB ANALYST Oxygen Saturation 95% 02/15/2021 1:17 PM CRIME LAB ANALYST Inhaled Oxygen Concentration - - Weight 138 kg (304 lb 3.8 oz) 04/17/2021 1:03 PM CRIME LAB ANALYST Height 178 cm (5' 10.08) 04/17/2021 1:03 PM CRIME LAB ANALYST Body Mass Index 43.55 04/17/2021 1:03 PM CRIME LAB ANALYST Plan of Treatment Health Maintenance Due Date [...] 01/08/2014 Creatinine Level (Kidney Fun ction Test) 10/27/2024 10/28/2023, 10/26/2023, 10/20/2023, Additional history exists Potassium Level 10/27/2024 10/28/2023, 2 07/2023, 10/20/2023, Additional history exists Sodium Level 10/27/2024 10/28/2023, 072 07/2023, 10/20/2023, Additional history exists Pneumococcal vaccine (0-64 y [...] PROCEDURES from Last 3 Months Care Teams Client Executive Relationship Specialty Start Date End Date Elsewhere, Pcp PCP - General Family Medicine 06/15/17
--- OUTSIDE RECORDS SUMMARY | 2023-11-18 07:48 | XMS_ITS | Clinical Summary ---
Author Organization [facility] Address [place], [place] [address] Care Team Providers Care Sales And Marketing Engineer Name Role Phone Munir Sahu MD Primary Care Provider + [facility], [place] Unavailable [phone] Allergies Active Allergy Reactions Criticality Noted Date [...] by insurance) 9 mL 09/28/2023 Active Insulin [place], Disposable, (Susana Pen Needle) 32 gauge x [...] Diagnosed Date Coronary artery disease invo lving match-e-be-nash-she-wish band coronary artery without angina pectoris 10/28/2023 Overview: [...] Encounters Date Type Department Care Team Description 11/17/2023 7:30 AM CDT Home Care Visit [facility] [address] [place] [address] Tyson Mejias, PT PT - HOME VISIT 11/15/2023 8:30 AM CDT Home Care Visit [facility] [address] [place] [address] Tyson Mejias, PT PT - HOME VISIT 11/14/2023 8:30 AM CDT Home Care Visit [facility] [address] [place] [phone] Elvira Reyes, RN SN - HOME VISIT 11/14/2023 3:30 AM CDT Home Care Visit [facility] [address] [place] [phone] Ailyn Varghese RN SN - WOUND/OSTOMY CHART CONSULT 11/11/2023 Telephone [facility] [address] [place] [address] Anibal Quigley MD Referral 11/10/2023 8:00 AM CDT Home Care Visit [facility] [address] [place] [phone] Tyson Mejias, PT PT - HOME VISIT 11/09/2023 10:00 AM CDT Home Care Visit [facility] [address] [place] [phone] Isa Cintron RN SN - HOME VISIT 11/09/2023 Orders Only [facility] [address] [place] [address] Louisa Lopez PA <No scans attached> 11/08/2023 Home Care Visit [facility] [address] [place] [phone] Tyson Mejias, PT CARE COORDINATION 11/07/2023 8:15 AM CDT Home Care Visit [facility] [address] [place] [phone] Tyson Mejias, PT PT - INITIAL ASSESSMENT 11/07/2023 7:30 AM CDT Home Care Visit [facility] [address] [place] [phone] Lexi Esteves, CHITRA SN - HOME VISIT 11/04/2023 Home Care Visit [facility] [address] [place] [phone] Elvira Reyes, RN CARE COORDINATION 11/04/2023 Telephone [facility] [address] [facility] [address] [place] [address] Gregorio Olivia MD Medication Management (amlodipine) 11/02/2023 8:30 AM CDT Home Care Visit [facility] [address] [place] [phone] Nohemy Anna LPN HOSPICE CARE SALES CONSULTANT - HOME VISIT 10/31/2023 3:00 PM CDT Home Care Visit [facility] [address] [place] [phone] Evie Young RN SN - HOME VISIT 10/31/2023 Procedure Only [facility] [address] [facility] [address] [place] [address] Device Check (Remote Leadless Pacemaker Ca... 10/28/2023 5:20 AM CDT - 10/28/2023 1:20 PM CDT Hospital Encounter [facility] [address] [place] [address] Kamran Li MD Essential hypertension (Primary Dx); CAD, multiple vessel; S/p 3V CABG (SHER-LAD, LISA-ramus, radial-OM), 09/23/2023 Discharge Disposition: Home Self Care 10/28/2023 Home Care Visit [facility] [address] [place] [phone] Elvira Reyes RN CARE TRANSITION NOTE 10/28/2023 Travel 10/27/2023 8:30 AM CDT Home Care Visit [facility] [address] [place] [phone] Elvira Reyes RN SN - HOME VISIT 10/26/2023 10:48 PM CDT - 10/27/2023 12:53 AM CDT Emergency [facility] [address] [place] [address] Misha Styles III, MD Insomnia, unspecified type (Primary Dx); Anxiety Discharge Disposition: Home Self Care 10/26/2023 Travel 10/24/2023 9:00 AM CDT Home Care Visit [facility] [address] [place] [phone] Elvira Reyes RN SN - HOME VISIT 10/21/2023 Home Care Visit [facility] [address] [place] [address] Elvira Reyes, RN CARE COORDINATION 10/21/2023 Telephone [facility] [address] [place] [address] [place] [address] Quentin Aiken MD Pre Procedure 10/21/2023 Telephone [facility] [address] [place] [address] Jen Greenberg NP Results 10/20/2023 1:50 PM CDT Orders Only [facility] [address] [place] [address] Lab 10/20/2023 1:00 PM CDT Office Visit [facility] [address] [place] [address] Jen Greenberg NP Follow Up (3-4 weeks [...] 10/19/2023 7:45 AM CDT Home Care Visit [facility] [address] [place] [address] Elvira Reyes, RN SN - HOME VISIT 10/17/2023 5:00 AM CDT Home Care Visit [facility] [address] [place] [phone] Isa Cintron, CHITRA SN - HOME VISIT 10/14/2023 11:30 AM CDT Home Care Visit [facility] [address] [place] [phone] Lavern Madrid, RN SN - MISSED VISIT 10/12/2023 10:00 AM CDT Home Care Visit [facility] [address] [place] [phone] Elvira Reyes RN SN - HOME VISIT 10/10/2023 9:45 AM CDT Home Care Visit [facility] [address] [place] [phone] Elvira Reyes RN SN - HOME VISIT 10/07/2023 8:00 AM CDT Home Care Visit [facility] [address] [place] [phone] Elvira Reyes RN SN - HOME VISIT 10/05/2023 12:30 PM CDT Home Care Visit [facility] [address] [place] [phone] Elvira Reyes RN SN - HOME VISIT 10/04/2023 2:00 PM CDT Procedure Only [address] [place] [phone] Device Check (IN CLINIC [employer] LEADLESS... 10/04/2023 Travel 10/03/2023 7:00 AM CDT Home Care Visit [facility] [address] [place] [phone] Lexi Esteves RN SN - HOME VISIT 10/03/2023 1:00 AM CDT Home Care Visit [facility] [address] [place] [phone] Ailyn Varghese RN SN - WOUND/OSTOMY CHART CONSULT 10/03/2023 Telephone [place] [address] [place], [place] [phone] Ailyn Varghese, emergency medicine physician assistant (Vascular and or Wound clinic referral is needed. Supplies with [employer]) 09/30/2023 9:30 AM CDT Home Care Visit [facility] [address] [place] [phone] Lexi Esteves, CHITRA SN - OASIS START OF CARE 09/30/2023 Plan of Care Documentation [facility] [address] [place] [phone] 09/28/2023 Orders Only [address] [place] [phone] Alejandra Lau PA <No scans attached> 09/23/2023 2:03 PM CDT Anesthesia Event [address] [address] Marylou De Anda MD Ludwig, Margaret J, CRNA 09/23/2023 12:45 PM CDT - 09/23/2023 8:02 PM CDT Surgery [address] [address] Gregorio Olivia MD CORONARY ARTERY BYPASS X 3 WITH RADIAL HARVEST, AND TEMP VENTRICULAR PACING WIRES 09/18/2023 2:58 AM CDT - 09/28/2023 2:30 PM CDT Hospital Encounter [address] [address] [facility], Hospitalist Wendy Rodriguez DO Kroschel, MD Cristal Gallardo, Munir Muhammad MD S/p 3V CABG (SHER-LAD, LISA-ramus, radial-OM), 09/23/2023 (Primary Dx); Ulcer of left lower extremity with fat layer exposed (HC) [L97.922]; NSTEMI (non-ST elevated myocardial infarction) (HC); CAD, multiple vessel; Type 2 diabetes mellitus with complication (HC); Essential hypertension Discharge Disposition: [facility] 09/17/2023 7:43 PM CDT - 09/18/2023 1:46 AM CDT Emergency [facility] [address] [place] [address] Pritesh Boyer MD NSTEMI (non-ST elevated myocardial infarction) (HC) (Primary Dx) Discharge Disposition: Health Care Facility Not On List 09/17/2023 Telephone [facility] [address] [place] [address] Guzman Lovelace MD 09/17/2023 Travel 09/05/2023 Lab Requisition [facility] [phone] Unknown, Doctor from Last 3 Months Family [...] Sign Reading Time Taken Comments Blood Pressure 116/54 11/17/2023 7:35 AM CDT Pulse 94 11/17/2023 8:01 AM CDT Temperature 36.5 ??C (97.7 ??F) 11/17/2023 7 :35 AM CDT Respiratory Rate 18 11/17/2023 7:35 AM CDT Oxygen Saturation 97% 11/17/2023 8:0 1 AM CDT after sit<>stands Inhaled Oxygen Concentration - - Weight 128.8 kg (284 lb) 11/14/2023 8:5 5 AM CDT Height 180.3 cm (5' 11) 10/28/2023 7:3 1 AM CDT Body Mass Index 39.61 10/28/2023 7:31 AM CDT Plan of Treatment Upcoming Encounters Date Type Department Care Team (Late st Contact Info) Description 11/21/2023 4:00 AM CDT Home Care Visit [facility] [address] [place] [address] Elvira Reyes RN [address] [place] [address] 11/22/2023 10:45 AM CDT Home Care Visit [facility] [address] [place] [phone] Tyson Mejias, PT [address] [place] [address] 11/24/2023 8:15 AM CDT Home Care Visit [facility] [address] [place] [phone] Tyson Mejias, PT [address] [place] [address] 11/28/2023 4:00 AM CDT Appointment [facility] [address] [place] [phone] Elvira Reyes RN [address] [place] [address] 11/29/2023 9:30 AM CDT Appointment [facility] [address] [place] [address] 12/13/2023 8:00 AM CDT Appointment [facility] [place] [address] [place] [address] [address] [address] 12/13/2023 8:15 AM CDT Appointment [facility] [address] [address] 12/13/2023 1:30 PM CDT Office Visit [facility] [address] [place] [address] Kamran Li MD [address] [place] [address] 12/19/2023 9:30 AM CDT Orders Only [facility] [address] [place] [address] 01/12/2024 2:00 PM CDT Office Visit [facility] [address] [place] [address] Chriss Whittington MD [address] [facility] [address] [place] [address] 02/27/2024 Procedure Only [facility] [address] [place] [phone] Health Maintenance Due Date Last Done Comments [...] Case Notes AVERAGE T/FPERFUSION-Confirmed w/Shayna for 1315 #[id number] EK 6/20OR STAFF BYPASS CORONARY ARTERY 01 2023 1:33 PM CDT Case Notes AVERAGE T/FPERFUSION-Confirmed w/Shayna for 1315 #[id number] EK /20OR STAFF GLUCOSE METER Timed 09/23/2023 [...] UNIT STAT 09/22/19 24 9:35 AM CDT RBC W TYPE AND [...] - 100 mg/dL 10/28/2023 10:59 AM CDT [facility] Blood BLOOD SPECIMEN / Unknown 10/28/2023 10:59 AM CDT 10/28/2023 10:59 AM CDT Kamran Li MD CHEMISTRY [facility] SENDOUT [place]IP [address] [address] [place] [address] * SCAN-CARDIAC STRIP (10/28/2023 10:55 AM CDT) [...] NOW QTc 472 ms BEYOND NOW P [place] 56 degrees BEYOND NOW R [place] 45 degrees BEYOND NOW T [place] 70 degrees BEYOND NOW 10/28/2023 10:3 3 AM CDT 10/28/2023 11:07 AM CDT Kamran Li MD EKG ORD BEYOND NOW [place], [place] * (ABNORMAL) ACTIVATED CLOTTING TIME [id number] ACT (10/28/2023 8:56 AM CDT) ACTIVATED CLOTTING TIME, POCT 304(H) 74 - 125 sec 10/28/2023 12:18 PM CDT [facility] Blood BLOOD SPECIMEN / Unknown 10/28/2023 8:56 AM CDT 10/28/2023 12:18 PM CDT Kamran Li MD HEMATOLOGY [facility] SENDOUT INTERNAL ZIP [address] [place] [address] * CVL PCI ONLY (10/28/2023 8:19 AM CDT) Anatomical Region Laterality Modality X-Ray Angiograph y 10/28/2023 8:19 AM CDT Narrative Transcriptions Kamran Li MD - 10/28/2023 9:33 AM CDT [facility] Cardiac Catheterization Report Name: JOSE GUADALUPE RIDLEY Event Date: 10/28/2023 08:19 [facility] ID #: [id number] JAKE #: [id number] Diagnostic Physician: KAMRAN LI [facility] Interventional Physician: KAMRAN LI [facility] Referring Physician: GREGORIO OLIVIA Date: 1960 Gender: [...] inhibit spasm of the radialgraft. Consent & [place] Protocol The risks, benefits, and alternatives of the procedure were discussed withthe patient and written informed consent was obtained. [place] protocol was followed. TIME OUT conducted just prior tostarting procedure confirmed patient identity, site/side, procedure,patient position, and availability of correct equipment and implants (ifapplicable). Staff Name Title KAMRAN LI [employer] Sales Representative Rafaela Bailey RN Nurse Hung Oviedo RTR Machelle Adler RTR Monitor Jimmie Merino CVT Pharmacist'S Aide Procedures ? US Guided Access ? Coronary [...] 15mm 1 Distal RCA Drug Eluting Stent [place] 3.50 x 22mm Procedure Details Estimated Blood Loss: < 30 ml Specimen Collected: None Level of Sedation Achieved: Moderate Procedure Start: 08:19 Procedure End: 09:22 Procedure Time: 63 min Fluoroscopy Time: 16.2 min Cumulative Air Kerma: 1697 mGy DAP: 14964 mGy/cm2 Contrast: Omnipaque, 230 ml Physiologic Data [...] IV Kamran Li Kendra RN 08:39 Heparin 01580 units IV Kamran Li Kendra RN 08:44 [...] healthcare professional providing the sedation ends personal uzklmtanadilzz-up-zurx time with the patient. The medications listed above were verbally ordered by me and read back tome as documented above. Refer to the procedure log report for additional case details. electronically signed on 10/28/2023 9:33:27 AM with status of Final Kamran Li MD [address], [place] [address] [place] [address] (p) [phone]) Alejandra FAJARDO CV IMAGING * (ABNORMAL) CBC with Platelets no Differential (10/28/2023 6:35 AM CDT) Only the most recent of5 resultswithin the time period is included. WHITE BLOOD COUNT 5.9 4.5 - 11.0 thou/cu mm 10/28/2023 6:52 AM T [facility] RED BLOOD COUNT 4.27(L) 4.30 - 5.90 mil/cu mm 10/28/2023 6:52 AM T [facility] HEMOGLOBIN 12.6(L) 13.5 - 17.5 g/dL 10/28/2023 6:52 AM [facility] HEMATOCRIT 38.9 37.0 - 53.0 % 10/28/2023 6:52 AM [facility] MCV 91 80 - 100 fL 10/28/2023 6:52 AM T [facility] MCH 29.5 26.0 - 34.0 pg 10/28/2023 6:52 AM T [facility] MCHC 32.4 32.0 - 36.0 g/dL 10/28/2023 6:52 AM T [facility] RDW 14.6 11.5 - 15.5 % 10/28/2023 6:52 AM T [facility] PLATELET COUNT 193 140 - 440 thou/cu mm 10/28/2023 6:52 AM T [facility] MPV 9.6 6.5 - 11.0 fL 10/28/2023 6:52 AM T [facility] NRBC 0.0 % 10/28/2023 6:52 AM T [facility] ABS NRBC 0.0 thou /cu mm 10/28/2023 6:52 AM [facility] Blood BLOOD SPECIMEN / Unknown Venipuncture / Unknown 10/28/2023 6:35 AM CDT 10/28/2023 6:45 AM CDT Gregorio Elizabeth MD HEMATOLOGY [facility] SENDOUT INTERNAL ZIP [address] [place] [address] * (ABNORMAL) Basic Metabolic Panel (10/28/2023 6:35 AM CDT) Only the most recent of14 resultswithin the time period is included. SODIUM 139 136 - 145 mmol/L 10/28/2023 7:19 AM [facility] POTASSIUM 3.8 3.5 - 5.1 mmol/L 10/28/2023 7:19 AM [facility] CHLORIDE 102 98 - 107 mmol/L 10/28/2023 7:19 AM [facility] CO2,TOTAL 25 22 - 29 mmol/L 10/28/2023 7:19 AM [facility] ANION GAP 12 5 - 18 10/28/2023 7:19 AM [facility] GLUCOSE 158(H) 70 - 99 mg/dL 10/28/2023 7:19 AM [facility] CALCIUM 9.4 8.8 - 10.2 mg/dL 10/28/2023 7:19 AM [facility] BUN 19 8 - 23 mg/dL 10/28/2023 7:19 AM [facility] CREATININE 0.97 0.70 - 1.20 mg/dL 10/28/2023 7:19 AM [facility] BUN/CREAT RATIO 20 10 - 20 7:19 AM [facility] eGFR 88(L) >90 mL/min/1.7 3m2 10/28/2023 7:19 AM [facility] Comment:As of 2021, eG FR is calculated by the CKD-EPI creatinine equation without race adjustment. ??eGFR can be influenced by muscle mass, exercise, and diet. ??The reported eGFR is an estimation only and is only applicable if the renal function is stable. Blood BLOOD SPECIMEN / Unknown Venipuncture / Unknown 10/28/2023 6:35 AM CDT 10/28/2023 6:45 AM CDT Gregorio Elizabeth MD CHEMISTRY Performing Organization Address City/[facility]/ZIP Co de Phone Number [facility] SENDOUT INTERNAL ZIP [phone] [place] [address] * URINALYSIS MICROSCOPIC (10/26/2023 11:46 PM CDT) RBC None Seen 0-2, None Seen /HPF 10/26/2023 11:55 PM T [facility] WBC 0-2 0-2, 3-5, None Seen /HPF 10/26/2023 11:55 PM [facility] BACTERIA Rare None Seen, Rare, Few Bacteria/H PF 10/26/2023 11:55 PM T [facility] EPITHELIAL CELLS Few None Seen, Few Epi/HPF 10/26/2023 11:55 PM [facility] Urine URINE SPECIMEN / Unknown Non-Blood / Unknown 10/26/2023 11:46 PM CDT 10/26/2023 11:49 PM CDT Misha Styles III, MD URINE [facility] [address] [address] * (ABNORMAL) Urinalysis w Reflex Microscopic if Positive (10/26/2023 11:46 PM CDT) COLOR Yellow Yellow Color 10/26/2023 11:52 PM [facility] CLARITY Clear Clear Clarity 10/26/2023 11:52 PM [facility] SPECIFIC GRAVITY,URINE 1.020 1.010, 1.015, 1.020, 1.025 10/26/2023 11:52 PM [facility] PH,URINE 6.0 6.0, 7.0, 8.0, 5.5, 6.5, 7.5, 8.5 10/26/2023 11:52 PM [facility] UROBILINOGEN, QUALITATIVE Normal Normal EU/dl 10/26/2023 11:52 PM [facility] PROTEIN, URINE Negative Negative mg/dL 10/26/2023 11:52 PM [facility] GLUCOSE, URINE >=1000(A) Negative mg/dL 10/26/2023 11:52 PM [facility] KETONES,URINE Negative Negative mg/dL 10/26/2023 11:52 PM [facility] BILIRUBIN,URI NE Negative Negative 10/26/2023 11:52 PM [facility] OCCULT BLOOD,URINE Negative Negative 10/26/2023 11:52 PM [facility] NITRITE Negative Negative 10/26/2023 11:52 PM [facility] LEUKOCYTE ESTERASE Negative Negative 10/26/2023 11:52 PM [facility] Urine URINE SPECIMEN / Unknown Non-Blood / Unknown 10/26/2023 11:46 PM CDT 10/26/2023 11:49 PM CDT Misha Styles III, MD URINE [facility] [address] [address] * (ABNORMAL) CBC WITH AUTO DIFFERENTIAL (10/26/2023 11:29 PM CDT) Only the most recent of3 resultswithin the time period is included. WHITE BLOOD COUNT 6.5 4.5 - 11.0 thou/cu mm 10/26/2023 11:40 PM [facility] RED BLOOD COUNT 4.13(L) 4.30 - 5.90 mil/cu mm 10/26/2023 11:40 PM [facility] HEMOGLOBIN 12.3(L) 13.5 - 17.5 g/dL 10/26/2023 11:40 PM [facility] HEMATOCRIT 39.2 37.0 - 53.0 % 10/26/2023 11:40 PM [facility] MCV 95 80 - 100 fL 10/26/2023 11:40 PM [facility] MCH 29.8 26.0 - 34.0 pg 10/26/2023 11:40 PM [facility] MCHC 31.4(L) 32.0 - 36.0 g/dL 10/26/2023 11:40 PM [facility] RDW 14.7 11.5 - 15.5 % 10/26/2023 11:40 PM [facility] PLATELET COUNT 179 140 - 440 thou/cu mm 10/26/2023 11:40 PM [facility] MPV 9.4 6.5 - 11.0 fL 10/26/2023 11:40 PM [facility] % NEUT 64.9 % 10/26/2023 11:40 PM [facility] % LYMPH 14.5 % 10/26/2023 11:40 PM [facility] % MONO 8.6 % 10/26/2023 11:40 PM [facility] % EOS 11.7 % 10/26/2023 11:40 PM [facility] % BASO 0.3 % 10/26/2023 11:40 PM [facility] ABSOLUTE NEUTROPHILS 4.2 1.7 - 7.0 thou/cu mm 10/26/2023 11:40 PM [facility] ABSOLUTE LYMPHOCYTES 0.9 0.9 - 2.9 thou/cu mm 10/26/2023 11:40 PM CDT [facility] ABSOLUTE MONOCYTES 0.6 <0.9 thou/cu mm 10/26/2023 11:40 PM CDT [facility] ABSOLUTE EOSINOPHILS 0.8(H) <0.5 thou/cu mm 10/26/2023 11:40 PM CDT [facility] ABSOLUTE BASOPHILS 0.0 <0.3 thou/cu mm 10/26/2023 11:40 PM CDT [facility] Blood BLOOD SPECIMEN / Unknown Venipuncture / Unknown 10/26/2023 11:29 PM CDT 10/26/2023 11:31 PM CDT Misha Styles III, MD HEMATOLO GY [facility] [address] [address] * SCAN-CARDIAC STRIP (09/28/2023 8:00 AM CDT) Scanner OTHER * PLATELET COUNT (09/28/2023 4:53 AM CDT) Only the most recent of10 resultswithin the time period is included. PLATELET COUNT 239 140 - 440 thou/cu mm 09/28/2023 5:32 AM CDT [facility] MPV 9.2 6.5 - 11.0 fL 09/28/2023 5:32 AM CDT [facility] Blood BLOOD SPECIMEN / Unknown Venipuncture / Unknown 09/28/2023 4:53 AM CDT 09/28/2023 5:21 AM CDT Sandhya FAJARDO HEMATOLOGY [facility] SENDOUT [place]IP [phone] [place] [address] * WHITE BLOOD COUNT (09/28/2023 4:53 AM CDT) Only the most recent of4 resultswithin the time period is included. WHITE BLOOD COUNT 7.3 4.5 - 11.0 thou/cu mm 09/28/2023 5:32 AM CDT [facility] NRBC 0.0 % 09/28/2023 5:32 AM CDT [facility] ABS NRBC 0.0 thou /cu mm 09/28/2023 5:32 AM CDT [facility] Blood BLOOD SPECIMEN / Unknown Venipuncture / Unknown 09/28/2023 4:53 AM CDT 09/28/2023 5:21 AM CDT Sandhyalucila FAJARDO HEMATOLOGY Performing Organization Address City/[facility]/ZIP Co de Phone Number [facility] SENDOUT INTERNAL ZIP [address] [place] [address] * (ABNORMAL) HEMOGLOBIN (09/28/2023 4:53 AM CDT) Only the most recent of10 resultswithin the time period is included. HEMOGLOBIN 11.6(L) 13.5 - 17.5 g/dL 09/28/2023 5:32 AM CDT [facility] MCV 91 80 - 100 fL 09/28/2023 5:32 AM CDT [facility] Blood BLOOD SPECIMEN / Unknown Venipuncture / Unknown 09/28/2023 4:53 AM CDT 09/28/2023 5:21 AM CDT Sandhya FAJARDO HEMATOLOGY Performing Organization Address [facility]/ZIP Co de Phone Number [facility] SENDOUT INTERNAL ZIP [address] [place] [address] * SCAN-CARDIAC STRIP (09/27/2023 7:43 PM CDT) Scanner OTHER * ECHO TTE LIMITED W CONTRAST W COLOR W DOPPLER (09/27/2023 12:26 PM CDT) EJECTION FRACTION 55% PROSOLV Anatomical Region Laterality Modality Ultrasound 09/27/2023 11:3 8 AM CDT Narrative 09/27/2023 12:43 PM CDT [address] [address] Main: [email or web address] ? Transthoracic Echo Report JOSE GUADALUPE RIDLEY ID: [id number] Age: 63 : 1960 Ordering Provider: RAMANDEEP CHONG Exam Date: 09/27/2023 11:38 Gender: M Event Marketing Specialist: [facility] Height: 68 in BSA: 2.46 m?? BP: [...] ?4.93 mmHg Rusty Major MD (Electronically Signed) [facility] Accredited Site Final Date: 27 September 2023 12:41 ICD-10 Codes: Procedure Note Rusty Major MD - 09/27/2023 [place] [address] Main: [email or web address] Transthoracic Echo Report JOSE GUADALUPE RIDLEY ID: [id number] Age: 63 : 1960 Ordering Provider:RAMANDEEP CHONG Exam Date: 09/27/2023 11:38 Gender: M Event Marketing Specialist: [facility] Height: 68 in BSA: 2.46 m?? BP: [...] 4.93 mmHg Rusty Major MD (Electronically Signed) [facility] Accredited Site Final Date: 27 September 2023 12:41 ICD-10 Codes: Ramandeep Chong PING PONG TABLE ASSEMBLER ECHO ORD * POTASSIUM (09/27/2023 12:12 PM CDT) Only the most recent of4 resultswithin the time period is included. POTASSIUM 4.6 3.5 - 5.1 mmol/L 09/27/2023 12:45 PM CDT [facility] Blood BLOOD SPECIMEN / Unknown Butterfly / Unknown 09/27/2023 12:12 PM CDT 09/27/2023 12:28 PM CDT Gregorio Elizabeth MD CHEMISTRY [facility] SENDOUT [place] [address] [address] [place] [address] * SCAN-CARDIAC STRIP (09/27/2023 8:00 AM CDT) [...] Juanito Romeo MD ? 09/26/2023 ??5:44 PM [facility] Electrophysiology Laboratory Leadless Pacemaker (AV [...] procedure. Attending Signature: Juanito Romeo M.D. Cardiac Benzene Still Utility Operator [facility] Manan Steele NP HISTOPATH TECH ORD * EP PPM (09/26/2023 4:54 PM CDT) Anatomical Region Laterality Modality Other 09/26/2023 4:54 PM CDT Manan Steele NP CV IMAGING * SCAN-CARDIAC STRIP (09/26/2023 8:36 AM CDT) Scanner OTHER * (ABNORMAL) Protime-INR (09/26/2023 5:26 AM CDT) Only the most recent of7 resultswithin the time period is included. INR 1.2 <1.3 09/26/2023 5:38 AM CDT [facility] PROTIME 13.3(H) 10.3 - 12.3 sec 09/26/2023 5:38 AM CDT [facility] Blood BLOOD SPECIMEN / Unknown Venipuncture / Unknown 09/26/2023 5:26 AM CDT 09/26/2023 5:30 AM CDT Narrative [facility] - 09/26/2023 5:38 AM CDT [...] Gregorio Elizabeth MD HEMATOLOGY Performing Organization Address [facility]/ZIP Co de Phone Number [facility] SENDOUT [place]NAL ZIP [phone] [place] [address] * SCAN-PACER (09/26/2023 12:00 AM CDT) Narrative 09/26/2023 12:00 AM CDT Ordered by an unspecified provider. Other Clinical Staff OTHER * SCAN-CARDIAC STRIP (09/25/2023 8:00 AM CDT) Scanner OTHER * MAGNESIUM (09/25/2023 5:07 AM CDT) Only the most recent of8 resultswithin the time period is included. MAGNESIUM 2.1 1.6 - 2.4 mg/dL 09/25/2023 5:34 AM CDT [facility] Blood BLOOD SPECIMEN / Unknown Non-Lab Venipuncture / Unknown 09/25/2023 5:07 AM CDT 09/25/2023 5:15 AM CDT Gregorio Elizabeth MD CHEMISTRY Performing Organization Address [facility]/ZIP Co de Phone Number [facility] SENDOUT [place] [address] [phone] [place] [address] * SCAN-CARDIAC STRIP (09/24/2023 11:32 PM CDT) [...] EXAM: XR CHEST 1 VIEW PORTABLE LOCATION: [facility] MEDICAL IMAGING DATE: 09/24/2023 INDICATION: [...] EXAM: XR CHEST 1 VIEW PORTABLE LOCATION: [facility] MEDICAL IMAGING DATE: 09/24/2023 INDICATION: [...] - 1.27 mmol/L 09/24/2023 4:35 AM CDT [facility] Blood BLOOD SPECIMEN / Unknown Non-Lab Venipuncture / Unknown 09/24/2023 4:20 AM CDT 09/24/2023 4:32 AM CDT Gregorio Elizabeth MD CHEMISTRY [facility] SENDOUT [place] [address] [phone] [place] [address] * (ABNORMAL) Arterial Blood Gas (09/24/2023 12:16 AM CDT) PH, ARTERIAL 7.33(L) 7.35 - 7.45 09/24/2023 12:25 AM CDT [facility] PCO2, ARTERIAL 52(H) 35 - 48 mmHg 09/24/2023 12:25 AM T [facility] PO2, ARTERIAL 164(H) 83 - 108 mmHg 09/24/2023 12:25 AM T [facility] HCO3, ARTERIAL 27 21 - 28 mmol/L 09/24/2023 12:25 AM T [facility] BASE EXCESS, ARTERIAL 0.6 -2.0 - 3.0 09/24/2023 12:25 AM T [facility] O2 SATURATION, ARTERIAL 100(H) 94 - 98 % 09/24/2023 12:25 AM T [facility] INSPIRED O2 95 09/24/2023 12:25 AM T [facility] Comment:Unit of Measure: Lit ers (L) if <=20; Percent (%) if >20 PATIENT TEMPERATURE 36.9 Degrees C 09/24/2023 12:25 AM T [facility] Blood ARTERIAL BLOOD SPECIMEN / Unknown Arterial / Unknown 09/24/2023 12:16 AM CDT 09/24/2023 12:21 AM CDT Gregorio Elizabeth MD CHEMISTRY [facility] SENDOUT INTERNAL ZIP [phone] [place] [address] * SCAN-CARDIAC STRIP (09/24/2023 12:00 AM CDT) Scanner OTHER * Thrombin Time - Immediate Postop (09/23/2023 9:45 PM CDT) Only the most recent of2 resultswithin the time period is included. THROMBIN TIME 15 <16 sec 09/23/2023 10:37 PM CDT [facility] Blood BLOOD SPECIMEN / Unknown Non-Lab Venipuncture / Unknown 09/23/2023 9:45 PM CDT 09/23/2023 9:55 PM CDT Gregorio Elizabeth MD HEMATOLOGY [facility] SENDOUT INTERNAL ZIP [address] [place] [address] * (ABNORMAL) APTT - Immediate Postop (09/23/2023 9:45 PM CDT) Only the most recent of15 resultswithin the time period is included. APTT 23(L) 28 - 36 sec 09/23/2023 10:37 PM CDT [facility] Blood BLOOD SPECIMEN / Unknown Non-Lab Venipuncture / Unknown 09/23/2023 9:45 PM CDT 09/23/2023 9:55 PM CDT Narrative [facility] - 09/23/2023 10:37 PM CDT Therapeutic Range: 57-87 seconds Gregorio Elizabeth MD HEMATOLOGY [facility] SENDOUT INTERNAL ZIP [phone] [place] [address] * (ABNORMAL) Fibrinogen, Quantitative - Immediate Postop (09/23/2023 9:45 PM CDT) Only the most recent of2 resultswithin the time period is included. FIBRINOGEN,MOHIT NTITATIVE 453(H) 193 - 401 mg/dL 09/23/2023 10:37 PM CDT [facility] Blood BLOOD SPECIMEN / Unknown Non-Lab Venipuncture / Unknown 09/23/2023 9:45 PM CDT 09/23/2023 9:55 PM CDT Gregorio Elizabeth MD HEMATOLOGY [facility] SENDOUT [place]NAL [address] [address] [address] [place] [address] * (ABNORMAL) Cardiac Thromboelastography (09/23/2023 8:05 PM CDT) Only the most recent of2 resultswithin the time period is included. DESTINI REASON Diffuse Cardiac Bleeding 09/23/2023 10:17 PM CDT [facility] INTEM CT 212(H) 122 - 208 s 09/23/2023 10:17 PM CDT [facility] INTEM CFT 71 45 - 110 s 09/23/2023 10:17 PM CDT [facility] INTEM ALPHA 75 70 - 81 ?? 09/23/2023 10:17 PM CDT [facility] INTEM A10 57 46 - 67 mm 09/23/2023 10:17 PM CDT [facility] INTEM A20 63 51 - 72 mm 09/23/2023 10:17 PM CDT [facility] INTEM MCF 64 51 - 72 mm 09/23/2023 10:17 PM CDT [facility] INTEM ML 7 % 09/23/2023 10:17 PM CDT [facility] INTEM LI30 99 % 09/23/2023 10:17 PM CDT [facility] EXTEM CT 108(H) 43 - 82 s 09/23/2023 10:17 PM CDT [facility] EXTEM CFT 81 48 - 127 s 09/23/2023 10:17 PM CDT [facility] EXTEM ALPHA 74 65 - 80 ?? 09/23/2023 10:17 PM CDT [facility] EXTEM A10 60 46 - 67 mm 09/23/2023 10:17 PM CDT [facility] EXTEM A20 66 50 - 70 mm 09/23/2023 10:17 PM CDT [facility] EXTEM MCF 66 52 - 70 mm 09/23/2023 10:17 PM CDT [facility] EXTEM ML 7 % 09/23/2023 10:17 PM CDT [facility] EXTEM LI30 100 % 09/23/2023 10:17 PM CDT [facility] FIBTEM CT 116 s 09/23/2023 10:17 PM CDT [facility] FIBTEM CFT 593 s 09/23/2023 10:17 PM CDT [facility] FIBTEM ALPHA 67 ?? 09/23/2023 10:17 PM CDT [facility] FIBTEM A10 20 7 - 24 mm 09/23/2023 10:17 PM CDT [facility] FIBTEM A20 22 7 - 24 mm 09/23/2023 10:17 PM CDT [facility] FIBTEM MCF 23 7 - 24 mm 09/23/2023 10:17 PM CDT [facility] FIBTEM ML 0 % 09/23/2023 10:17 PM CDT [facility] FIBTEM LI30 100 % 09/23/2023 10:17 PM CDT [facility] HEPTEM CT 248(H) 122 - 208 s 09/23/2023 10:17 PM CDT [facility] HEPTEM CFT 83 45 - 110 s 09/23/2023 10:17 PM CDT [facility] HEPTEM ALPHA 73 70 - 81 ?? 09/23/2023 10:17 PM CDT [facility] HEPTEM A10 51 mm 09/23/2023 10:17 PM CDT [facility] HEPTEM A20 53 51 - 72 mm 09/23/2023 10:17 PM CDT [facility] HEPTEM MCF 54 51 - 72 mm 09/23/2023 10:17 PM CDT [facility] HEPTEM ML 10 % 09/23/2023 10:17 PM CDT [facility] Blood BLOOD SPECIMEN / Unknown Non-Lab Venipuncture / Unknown 09/23/2023 8:05 PM CDT 09/23/2023 8:13 PM CDT [employer] [facility] SENDOUT INTERNAL ZIP [address] [place] [address] * CVC TRIPLE LUMEN, HCHG STOPCOCK PR5, [...] ??Comment: Supplemental O2: supplemental oxygen. ??Comment:. 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 Video documentation of the exam on [employer] PRECPB EXAM The ZACHARY probe was [...] exam unchanged from pre-CPB. Images saved to observer helper. Teeth and oropharynx unchanged from pre-op. Probe [...] >90 mL/min/1.7 3m2 09/22/2023 3:42 PM CDT [facility] Comment:As of 2021, eG FR is calculated by the CKD-EPI creatinine equation without race adjustment. ??eGFR can be influenced by muscle mass, exercise, and diet. ??The reported eGFR is an estimation only and is only applicable if the renal function is stable. CREATININE 1.13 0.70 - 1.20 mg/dL 09/22/2023 3:42 PM CDT [facility] Blood BLOOD SPECIMEN / Unknown Butterfly / Unknown 09/22/2023 3:12 PM CDT 09/22/2023 3:16 PM CDT Ramandeep Luanne Chong NP CHEMISTRY [facility] SENDOUT INTERNAL ZIP [address] [place] [address] * RED BLOOD CELLS EA UNIT (09/22/2023 9:35 AM CDT) Only the most recent of2 resultswithin the time period is included. CROSSMATCH Compatible Compatible [facility] BLOOD BANK PRODUCT BLOOD TYPE O Rh Negative [facility] BLOOD BANK PRODUCT ID NUMBER [id number] [facility] PRODUCT STATUS /Relea sed [facility] BLOOD BANK PRODUCT DESCRIPTION RBC -1 LR [facility] PRODUCT CODE [id number] [facility] Ramandeep Chong NP BLOOD BANK Performing Organization Address [facility]/ZIP Co de Phone Number [facility] [address] [place] [address] * EXTRA TUBE LAVENDER (09/22/2023 9:34 AM CDT) Blood BLOOD SPECIMEN / Unknown Extra Tube / Unknown 09/22/2023 9:34 AM CDT 09/22/2023 10:58 AM CDT Doctor Unknown LABORATORY [facility] SENDOUT INTERNAL ZIP [address] [place] [address] * RBC W TYPE AND SCREEN (09/22/2023 9:34 AM CDT) ABORH O Rh Negative 09/22/2023 11:35 AM CDT [facility] ANTIBODY SCREEN Negative Negative 09/22/2023 11:35 AM CDT [facility] SPECIMEN EXPIRATION DATE/TIME 09/25/23 23:59 09/22/2023 11:35 AM CDT [facility] Blood BLOOD SPECIMEN / Unknown Venipuncture / Unknown 09/22/2023 9:34 AM CDT 09/22/2023 10:49 AM CDT Ramandeep Chong PING PONG TABLE ASSEMBLER BLOOD BANK Performing Organization Address [facility] Co de Phone Number [facility] [address] [place] [address] * SCAN-CARDIAC STRIP (09/22/2023 8:13 AM CDT) Scanner OTHER * HEMATOCRIT (09/22/2023 4:55 AM CDT) Only the most recent of4 resultswithin the time period is included. HEMATOCRIT 45.1 37.0 - 53.0 % 09/22/2023 5:21 AM CDT [facility] Blood BLOOD SPECIMEN / Unknown Venipuncture / Unknown 09/22/2023 4:55 AM CDT 09/22/2023 5:18 AM CDT Narrative [facility] - 09/22/2023 5:21 AM CDT Every morning while on IV heparin. Every morning while on IV heparin. Necessary every morning while on IV heparin. Wendy King DO HEMATOLOGY Performing Organization Address [facility]/ZIP Co de Phone Number [facility] SENDOUT INTERNAL ZIP [address] [address] [place] [address] * SCAN-CARDIAC STRIP (09/22/2023 1:22 AM CDT) [...] CDT 1. ?Cholelithiasis. 2. ?Please refer to it telecom technician's dictation for the cardiac CT report. Narrative 09/22/2023 3:42 PM CDT Results are automatically released to your [employer]) account once available, in compliance with federal regulations. ??This means that you may see your results before your provider has had a chance to review them. ??Please allow 2-3 business days for your provider to comment on the results. CT ANGIOGRAM OF THE THORACIC AORTA, 09/20/2023 INDICATION: Pre-coronary artery bypass grafting. CONCLUSIONS: This is a dual read study - please review [facility] over-read below for incidental non cardiac [...] cc/sec, was performed on a ??[employer] SOMATOM Medcurrent CT scanner. The imaging protocol was individualized to minimize radiation exposure. The following ECG-gated acquisition protocol was used: High pitch prospective. ??Pulse range 300-300. Tube potential: 120 kV. Tube current: 5004 mAs. Total DLP: 1158 mGy*cm; mSv: 16.2; CTDI: 54.3. Image post processing was performed on a [employer] Workstation. Images were reconstructed at a slice [...] for incidental non-cardiac findings. Monique Finn MD [facility] AB/car For Patients: As a result of the Century Cures Act, medical imaging exams and procedure reports are released immediately into your electronic medical record. You may view this report before your referring provider. If you have questions, please contact your health care provider. EXAM: OVERREAD: DETAILED [facility] EXTRACARDIAC OVERREAD OF CARDIAC CT LOCATION: [facility] MEDICAL IMAGING DATE: 09/20/2023 INDICATION: [...] EXAM: US ARTERIAL UPPER EXTREMITY LEFT LOCATION: [facility] MEDICAL IMAGING DATE: 09/20/2023 INDICATION: [...] EXAM: US ARTERIAL UPPER EXTREMITY LEFT LOCATION: [facility] MEDICAL IMAGING DATE: 09/20/2023 INDICATION: [...] and fifth digits duringradial artery compression. Ramandeep Stroud Arlette WISEMAN US * US VEIN [...] Li MD - 09/19/2023 5:59 PM CDT [facility] Cardiac Catheterization Report Name: JOSE GUADALUPE RIDLEY Event Date: 09/19/2023 17:17 Excellian ID #: [id number] JAKE #: [id number] Diagnostic Physician: KAMRAN LI [facility] Primary Engineer And Geologist: RACHID MÉNDEZ Referring Physician: Date: 1960 Gender: [...] < 70 ;Triglycerides < 100 Consent & [place] Protocol The risks, benefits, and alternatives of the procedure were discussed withthe patient and written informed consent was obtained. [place] protocol was followed. TIME OUT conducted just prior tostarting procedure confirmed patient identity, site/side, procedure,patient position, and availability of correct equipment and implants (ifapplicable). Staff Name Title KAMRAN LI Diagnostic Engineer And Geologist Rafaela Bailey RN Nurse Dang Ghosh RN [...] min Cumulative Air Kerma: 493 mGy DAP: 62680 mGy/cm2 Contrast: Omnipaque, 50 ml Visipaque 320, [...] healthcare professional providing the sedation ends personal [id number] time with the patient. The medications listed above were verbally ordered by me and read back tome as documented above. Refer to the procedure log report for additional case details. electronically signed on 09/19/2023 5:59:16 PM with status of Final Kamran Li MD [address], [place] [address] [place] [address] (p) [phone](f) Quentin Aiken MD CV IMAGING * ECHO TTE COMPLETE W CONTRAST (09/19/2023 10:48 AM CDT) EJECTION FRACTION 45-50% PROSOLV Anatomical Region Laterality Modality Ultrasound 09/19/2023 10:1 2 AM CDT Narrative 09/19/2023 11:44 [place] [address] Main: [email or web address] ? Transthoracic Echo Report JOSE GUADALUPE RIDLEY Federico ID: [id number] Age: 63 : 1960 Ordering Provider: WENDY KING Exam Date: 09/19/2023 10:12 Gender: M Event Marketing Specialist: [facility] Height: 71 in BSA: 2.57 m?? BP: 141 / 82 Weight: 318 lbs BMI: 44.4 kg/m?? HR: 85 Location: Inpatient (Portable) Rhythm: Normal Sinus Rhythm Procedure Components: 2D imaging with contrast, Color Doppler, Spectral Doppler Indications: Chest pain chest pressure chest tightening Technical Quality: Fair Contrast: Definity Constrast Dose (ml): 0.3 [facility]#: [id number] Final Conclusion 1. Technically challenging echocardiogram. 2. [...] ZScore: 0.00 Rusty Major MD (Electronically Signed) [facility] Accredited Site Final Date: 19 September 2023 11:44 ICD-10 Codes: Procedure Note Rusty Major MD - 09/19/2023 [place] [address] Main: [email or web address] Transthoracic Echo Report JOSE GUADALUPE RIDLEY Federico ID: [id number] Age: 63 : 1960 Ordering Provider:WENDY KING Exam Date: 09/19/2023 10:12 Gender: M Event Marketing Specialist: [facility] Height: 71 in BSA: 2.57 m?? BP: 141 / 82 Weight: 318 lbs BMI: 44.4 kg/m?? HR: 85 Location: Inpatient (Portable) Rhythm: Normal Sinus Rhythm Procedure Components: 2D imaging with contrast, Color Doppler, SpectralDoppler Indications: Chest pain chest pressure chest tightening Technical Quality: Fair Contrast: Definity Constrast Dose (ml): 0.3 [facility]#: [id number] Final Conclusion 1. Technically challenging echocardiogram. 2. [...] ZScore: 0.00 Rusty Major MD (Electronically Signed) [facility] Accredited Site Final Date: 19 September [...] 6.5(H) <=6.4 % 09/18/2023 7:22 AM CDT [facility] Blood BLOOD SPECIMEN / Unknown Venipuncture / Unknown 09/18/2023 4:17 AM CDT 09/18/2023 4:27 AM CDT Narrative [facility] - 09/18/2023 7:22 AM CDT ? (<5.7%) ?Normal ? (5.7% to 6.4%) ? Indicates prediabetes ? (>=6.5%) ? Confirms diabetes Falsely low levels may be seen with: Recent Transfusion, Recent Significant Blood Loss, Hemolytic Diseases, or Falsely elevated levels may be seen with: Untreated Anemias, Splenectomy Wendy King DO CHEMISTRY [facility] SENDOUT INTERNAL ZIP [address] [address] [place] [address] * LIPID PANEL (09/18/2023 4:17 AM CDT) CHOLESTEROL,TOTAL 174 100 - 199 mg/dL 09/18/2023 4:54 AM CDT [facility] Comment: Cholesterol, Total Reference Ranges Desirable <200 mg/dL Borderline 200-239 mg/dL High >=240 mg/dL TRIGLYCERIDES 105 <150 mg/dL 09/18/2023 4:54 AM CDT [facility] HDL CHOLESTEROL 42 >40 mg/dL 4:54 AM CDT [facility] NON-HDL CHOLESTEROL 132 <145 mg/dl 09/18/2023 4:54 AM CDT [facility] CHOL/HDL RATIO 4.14 <4.50 09/18/2023 4:54 AM CDT [facility] LDL CHOLESTEROL 111 <=130 mg/dL 09/18/2023 4:54 AM CDT [facility] VLDL CHOLESTEROL 21 <=30 mg/dL 09/18/2023 4:54 AM CDT [facility] PROVIDER ORDERED STATUS RANDOM 09/18/2023 4:54 AM CDT [facility] Blood BLOOD SPECIMEN / Unknown Venipuncture / Unknown 09/18/2023 4:17 AM CDT 09/18/2023 4:27 AM CDT Wendy King DO CHEMISTRY [facility] SENDOUT INTERNAL [facility] [id number] [place] [address] * SCAN-CARDIAC STRIP (09/18/2023 3:10 AM CDT) Scanner OTHER * SCAN-CARDIAC STRIP (09/18/2023 12:00 AM CDT) Narrative 09/18/2023 12:00 AM CDT Ordered by an unspecified provider. Other Clinical Staff OTHER * (ABNORMAL) TROPONIN T (HS) ONE TIME (09/17/2023 9:52 PM CDT) TROPONIN T HS 156(H) 6-15 ng/L ng/L 09/17/2023 10:13 PM CDT [facility] Blood BLOOD SPECIMEN / Unknown Venipuncture / Unknown 09/17/2023 9:52 PM CDT 09/17/2023 9:53 PM CDT Pritesh Boyer MD CHEMISTRY [facility] [address] [address] * (ABNORMAL) TROPONIN T (HS) ACUTE W/2HR REFLEX (09/17/2023 7:55 PM CDT) [facility] Signature TROPONIN T HS 74(H) 6-15 ng/L ng/L 09/17/2023 8:29 PM CDT [facility] Blood BLOOD SPECIMEN / Unknown IV Start / Unknown 09/17/2023 7:55 PM CDT 09/17/2023 7:[address] [facility] - 09/17/2023 8:29 PM CDT [...] department patient population. Pritesh Boyer MD CHEMISTRY [facility] [address] [place] [phone] * (ABNORMAL) COMP METABOLIC PANEL (09/17/2023 7:55 PM CDT) SODIUM 138 136 - 145 mmol/L 09/17/2023 8:29 PM [facility] POTASSIUM 4.5 3.5 - 5.1 mmol/L 09/17/2023 8:29 PM [facility] CHLORIDE 102 98 - 107 mmol/L 09/17/2023 8:29 PM [facility] CO2,TOTAL 27 22 - 29 mmol/L 09/17/2023 8:29 PM [facility] ANION GAP 9 5 - 18 09/17/2023 8:29 PM [facility] GLUCOSE 229(H) 70 - 99 mg/dL 09/17/2023 8:29 PM [facility] CALCIUM 9.2 8.8 - 10.2 mg/dL 09/17/2023 8:29 PM [facility] BUN 17 8 - 23 mg/dL 09/17/2023 8:29 PM [facility] CREATININE 0.93 0.70 - 1.20 mg/dL 09/17/2023 8:29 PM [facility] BUN/CREAT RATIO 18 10 - 20 8:29 PM [facility] eGFR >90 >90 mL/min/1.7 3m2 09/17/2023 8:29 PM [facility] Comment:As of 2021, eG FR is calculated by the CKD-EPI creatinine equation without race adjustment. ??eGFR can be influenced by muscle mass, exercise, and diet. ??The reported eGFR is an estimation only and is only applicable if the renal function is stable. ALBUMIN 3.9(L) 4.0 - 4.9 g/dL 09/17/2023 8:29 PM [facility] PROTEIN,TOTAL 7.2 6.0 - 8.0 g/dL 09/17/2023 8:29 PM CDT [facility] BILIRUBIN,TOTAL 0.5 0.0 - 1.2 mg/dL 09/17/2023 8:29 PM CDT [facility] ALK PHOSPHATASE 114 40 - 129 IU/L 09/17/2023 8:29 PM CDT [facility] ALT (SGPT) 30 10 - 50 IU/L 09/17/2023 8:29 PM CDT [facility] AST (SGOT) 37 10 - 50 IU/L 09/17/2023 8:29 PM CDT [facility] Blood BLOOD SPECIMEN / Unknown IV Start / Unknown 09/17/2023 7:55 PM CDT 09/17/2023 7:56 PM CDT Pritesh Boyer MD CHEMISTRY [facility] [address] [id number] * (ABNORMAL) REFERRAL SUSCEPTIBILITY (09/02/2023 8:26 AM CDT) CULTURE RESULT(A) 09/07/2023 10:49 AM CDT [facility] CULTURE Streptococcus dysgalactiae (Beta Strep group C or G) 09/07/2023 10:49 AM CDT [facility] Other (Left ankle) [...] or G) CLARITHROMYCIN S Doctor Unknown MICROBIOLOGY [facility] [address] [place] [address], from Last 3 Months Advance Directives * [...] Code Status Discussion: Not Discussed Care Teams Sales And Marketing Engineer Relationship Specialty Start Date End Date Munir Sahu MD [address] [place] [address] PCP - General Family Practice 09/17/23 [facility] [address] [place] [address] 09/28/23
--- OUTSIDE RECORDS SUMMARY | 2023-11-18 07:48 | XMS_ITS | Encounter Summary ---
Author Organization [facility] Address [address] [place] [address] Care Team Providers Care Grinding Wheel Operator Name Role Phone Elsewhere, Pcp Primary Care Provider Unavailabl e Reason for Visit * Reason Comments Weakness - Generalized Hyperglycemia Encounter Details Date Type Department Care Team (Late st Contact Info) Description 10/26/2023 10:48 PM CDT - 10/26/2023 11:59 PM CDT Emergency [facility] [address] [place] [phone] Hyperglycemia (Primary Dx) Discharge Disposition: Home or [...] bandage 12 10/03/2017 FreeStyle João 14 Day [place] misc 02/17/2021 FreeStyle João 14 Day Sensor [...] Primary documented in this encounter Care Teams Grinding Wheel Operator Relationship Specialty Start Date End Date Elsewhere, Pcp PCP - General Family Medicine 06/15/17 documented as of this encounter
--- OUTSIDE RECORDS SUMMARY | 2023-11-18 07:48 | XMS_ITS | Referral Summary ---
Author Organization [facility] Address [address] [place] [address] Care Team Providers Care Collection Clerk Name Role Phone Elsewhere, Pcp Primary Care Provider Unavailabl e Source Comments Patient records contain information from all sites at [facility]. For routine questions regarding patient records, call [phone] during business hours, M-F 8:00 AM - 5:00 PM Central Time. Record requests for emergency care only can be directed to [phone] at any time.[facility] Encounters Date Type Department Care Team Description 10/26/2023 10:48 PM CDT - 10/26/2023 11:59 PM CDT Emergency [facility] [address] [place] [address] Hyperglycemia (Primary Dx) Discharge Disposition: Home or Self Care 09/17/2023 7:59 PM CDT - 09/17/2023 11:59 PM CDT Emergency [facility] [address] [place] [address] Non-ST Elevation Myocardial Infarction (HCC) (Primary Dx) Discharge Disposition: Home or Self Care from Last 3 Months Allergies Active Allergy Reactions Criticality Noted Date Comments Dimethicone-Petrolatum Rash 02/01/2014 Horse [place] Rash 07/16/2016 Silver Sulfate-Foam Bandage Rash 02/02/20 [...] mouth. 11/07/2019 Active FreeStyle João 14 Day [place] misc 02/17/2021 Active FreeStyle João 14 Day [...] Comments Blood Pressure 160/85 04/17/2021 1:03 PM PLEASURE CRAFT SAILOR Pulse 74 04/17/2021 1:03 PM PLEASURE CRAFT SAILOR Temperature 36.4 ??C (97.5 ??F) 04/17/2021 1:03 PM CS T Respiratory Rate 14 02/15/2021 1:17 PM PLEASURE CRAFT SAILOR Oxygen Saturation 95% 02/15/2021 1:17 PM PLEASURE CRAFT SAILOR Inhaled Oxygen Concentration - - Weight 138 kg (304 lb 3.8 oz) 04/17/2021 1:03 PM PLEASURE CRAFT SAILOR Height 178 cm (5' 10.08) 04/17/2021 1:03 PM PLEASURE CRAFT SAILOR Body Mass Index 43.55 04/17/2021 1:03 PM PLEASURE CRAFT SAILOR Plan of Treatment Not on file Procedures [...] PROCEDURES from Last 3 Months Care Teams Collection Clerk Relationship Specialty Start Date End Date Elsewhere, Pcp PCP - General Family Medicine 06/15/17
--- OUTSIDE RECORDS SUMMARY | 2023-11-18 07:48 | XMS_ITS ---
Author Organization [facility] Address [address] [place] [address] Care Team Providers Care Bail Attacher Name Role Phone Unavailable Unavailable Unavailable Surgery Details Not on file Complications Check Surgery Details section. Procedure Estimated Blood Loss Check Surgery Details section. Procedure Findings Check Surgery Details section. Procedure Specimens Taken Check Surgery Details section.
--- OUTSIDE RECORDS SUMMARY | 2023-11-18 07:48 | XMS_ITS | Encounter Summary ---
Author Organization [facility] Address [address] [place] [address] Care Team Providers Care Clerk Analyst Name Role Phone Elsewhere, Pcp Primary Care Provider Unavailabl e Reason for Visit * Reason Comments Chest Pain Encounter Details Date Type Department Care Team (Late st Contact Info) Description 09/17/2023 7:59 PM CDT - 09/17/2023 11:59 PM CDT Emergency [facility] [address] [place] [phone] Non-ST Elevation Myocardial Infarction (HCC) (Primary Dx) [...] bandage 12 10/03/2017 FreeStyle João 14 Day [place] misc 02/17/2021 FreeStyle João 14 Day Sensor [...] Primary documented in this encounter Care Teams Clerk Analyst Relationship Specialty Start Date End Date Elsewhere, Pcp PCP - General Family Medicine 06/15/17 documented as of this encounter
== END 2023-11-18 07:46 | disposition home or self-care (01) ==
LOC: WOUND 07:45
PROVIDERS: PCP Family Medicine; Visit Provider Nurse Practitioner Family
DX: I87.313 Chronic venous hypertension (idiopathic) with ulcer of bilateral lower extremity (principal); I87.2 Venous insufficiency (chronic) (peripheral); E11.622 Type 2 diabetes mellitus with other skin ulcer; I89.0 Lymphedema, not elsewhere classified; L97.322 Non-pressure chronic ulcer of left ankle with fat layer exposed; L97.212 Non-pressure chronic ulcer of right calf with fat layer exposed
CPT/HCPCS: 11042; 15271; 15272; Q4101

== ENCOUNTER 2023-11-25 07:53 | Outpatient (CLI) | payer OTHER, SELFPAY ==
--- OUTSIDE RECORDS SUMMARY | 2023-11-25 07:56 | XMS_ITS | Clinical Summary ---
Author Organization [facility] Address [address] [place] [address] Care Team Providers Care De Icer Finisher Name Role Phone Munir Sahu MD Primary [...] Advance Directives For more information, please contact: [phone] * Full Code (Latest Code Status on File) Date Activated Date Inactivated Comments 11/06/2019 2:19 PM 11/07/2019 9:06 PM All basic and advanced life-sustaining interventions are performed as appropriate Question Answer Comments Code status determined by: Unable to det ermine; FULL CODE until documents or legal decision maker available Care Teams De Icer Finisher Relationship Specialty Start Date End Date Munir Sahu MD PCP - General Family Practice 10/22/19
--- OUTSIDE RECORDS SUMMARY | 2023-11-25 07:56 | XMS_ITS | Clinical Summary ---
Author Organization [facility] Address [address] [place] [address] Care Team Providers Care Batch Or Continuous Still Operator Name Role Phone Elsewhere, Pcp Primary Care Provider Unavailabl e Source Comments Patient records contain information from all sites at [facility]. For routine questions regarding patient records, call [phone] during business hours, M-F 8:00 AM - 5:00 PM Central Time. Record requests for emergency care only can be directed to [phone] at any time.[facility] Allergies Active Allergy Reactions Criticality Noted Date Comments Dimethicone-Petrolatum Rash 02/01/2014 Horse [place] Rash 07/16/2016 Silver Sulfate-Foam Bandage Rash 02/02/20 [...] mouth. 11/07/2019 Active FreeStyle João 14 Day [place] misc 02/17/2021 Active FreeStyle João 14 Day [...] CDT - 10/26/2023 11:59 PM CDT Emergency [facility] [address] [place] [address] Hyperglycemia (Primary Dx) Discharge Disposition: Home or Self Care 09/17/2023 7:59 PM CDT - 09/17/2023 11:59 PM CDT Emergency [facility] [address] [place] [address] Non-ST Elevation Myocardial Infarction (HCC) (Primary Dx) [...] Comments Blood Pressure 160/85 04/17/2021 1:03 PM COAL CRUSHER OPERATOR Pulse 74 04/17/2021 1:03 PM COAL CRUSHER OPERATOR Temperature 36.4 ??C (97.5 ??F) 04/17/2021 1:03 PM CS T Respiratory Rate 14 02/15/2021 1:17 PM COAL CRUSHER OPERATOR Oxygen Saturation 95% 02/15/2021 1:17 PM COAL CRUSHER OPERATOR Inhaled Oxygen Concentration - - Weight 138 kg (304 lb 3.8 oz) 04/17/2021 1:03 PM COAL CRUSHER OPERATOR Height 178 cm (5' 10.08) 04/17/2021 1:03 PM COAL CRUSHER OPERATOR Body Mass Index 43.55 04/17/2021 1:03 PM COAL CRUSHER OPERATOR Plan of Treatment Health Maintenance Due Date [...] PROCEDURES from Last 3 Months Care Teams Batch Or Continuous Still Operator Relationship Specialty Start Date End Date Elsewhere, Pcp PCP - General Family Medicine 06/15/17
--- OUTSIDE RECORDS SUMMARY | 2023-11-25 07:56 | XMS_ITS | Data Portability ---
Author Organization [place] [facility] Address [address] [facility] [facility] [address] [place] [address] Care Team Providers Care Tools Developer Name Role Phone GORDY SOL Primary Care Provider [phone] Assessment Encounter Date Assessment Date Assessment LastModified by Organization Details LastModified Time 11/21/2019 11/21/2019 59M with [id number] [place] 3+4=7 prostate cancer s/p RALP. Discussed pathology, risk of recurrence, need for ongoing PSA monitoring. Small anastomotic leak, will cont Choi x 1 more week. Worsened LE edema, likely chronic, but will check LE u/s to be sure no DVT. [email or web address] Not available 11/21/2019 14:07:03 01/02/2020 01/02/2020 59M with [id number] [place] 3+4=7 prostate cancer s/p RALP. 1) Prostate cancer - f/u 4 months with PSA 2) EVETTE, moderate - cont Kegels - consider PFPT 3) ED - Cialis PRN [email or web address] Not available 01/02/2020 09:34:03 05/01/2020 05/01/2020 60M with [id number] [place] 3+4=7 prostate cancer s/p RALP 6 months ago. MICHAEL. 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 Surgeries None record ed. Imaging None record ed. Medication Orders None record ed. Patient TargetsNo targets recorded. Patient Instructions Encounter Date Encounter Id Patient Instructions Last Modified By Organization Details Last Modified Time 11/28/2019 [id number] To follow up sumaya Doshi at his [...] Not Available [facility] [address], [place], [address], 05/01/2020 10:40:29 02/11/2020 lab* PSA <0.04 normal Not Available Not Available 01/07/2020 12:33:24 01/02/2020 PSA, serum or plasm a PSA, Total <0.04 ng/Ml Not Available [facility] [address], [place], [address], 01/02/2020 09:14:10 10/25/19 21 10/24/2020 PSA, serum or plasm a PSA, Total <0.04n g/mL Not Available [facility] [address], [place], [address], 10/24/2020 10:45:30 11/23/19 20 11/21/2019 CT, pelvi s, w/o contr ast No observ ation record ed. cedric Not Available 11/29/19 17:13:18 Result Notes None recorded. Problems Name Status Onset Date Resolution Date Notes Provider Name and Address Organization Details Recorded Time Carcinoma of prostate Active 11/21/19 20 Caroline kruger [facility] 11/21/2019 10:59:25 Male urinary stress incontinence Active 05/01/19 21 Mmoo delacruz MD, PHD [address] [place] [address], [phone], [facility] 05/01/2020 10:47:38 Primary erectile dysfunction Active 05/01/19 21 Momo delacruz MD, PHD [address] [place] [address], [phone], [facility] 05/01/2020 10:47:58 Problem Notes None recorded. Procedures Surgical History Date Name Laterality Status Provider Name and Address Organization Details Recorded Time 10/25/19 21 Blood Draw/IN FLIGHT REFUELING OPERATOR/PSA RESULTS completed Momo baez MD, PHD [address] [place] [address], [phone], [facility] 10/24/2020 10:45:26 05/01/19 21 Blood Draw/IN FLIGHT REFUELING OPERATOR/PSA RESULTS completed Momo baez MD, PHD [address] [facility],[address], [place], [address], [facility] 05/01/2020 10:40:25 01/02/20 20 Blood Draw/IN FLIGHT REFUELING OPERATOR/PSA RESULTS completed Janice Ayala [facility] 01/02/2020 09:14:04 11/28/19 20 Choi Catheter Removal completed Caroline Smith [facility] 02/04/2020 12:00:10 Prostatectomy completed Momo baez MD, PHD [address] [facility],[address], [place], [address], [facility] 10/24/2020 10:44:48 colonoscopy completed Monica Awan [facility], [facility] 12/09/2020 10:47:07 Imaging Results Imaging Date Name Status LastModified by Organiz ation Details LastModified Time 11/21/2019 CT, pelvis, w/o contrast completed cedric Information not available 11/29/2019 17:13:18 Procedure Notes None recorded. Medical Equipment None Reported. Allergies Allergen ID Allergen Name Allergen Category Reaction Reaction Severity Criticality Documentation Date Start Date Code Code System Note Provider Name and Address Organization Details Recorded Time 133757 silver medicatio n Not available Not available Not available 11/21/2019 84603 43 RxNorm Caroline Smith [facility] 0 11:09:54 886728 adhesive tape environme nt,medica tion Not available Not available Not available 11/21/2019 Caroline Smith [facility] 0 11:10:01 Medications Name Sig Start Date [...] Updated DateTime 01/02/2020 180.34 cm 39.3 kg/m2 565592.05 g Caroline Rojasyoandy [facility] 01/02/2020 09:09:40 Date Recorded Body height Body mass index (BMI) Body weight Provider Name and Address Organization Details Last Updated DateTime 05/01/2020 180.34 cm 39.3 kg/m2 019194.05 g Momo baez MD, PHD [address] [place] [address] 05/01/2020 10:39:59 Date Recorded Body height Body mass index (BMI) Body weight Provider Name and Address Organization Details Last Updated DateTime 10/24/2020 180.34 cm 39.7 kg/m2 594004.83 g Momo baez MD, PHD [address] [place] [address] 10/24/2020 10:44:13 Date Recorded Body height Body mass index (BMI) Body weight Provider Name and Address Organization Details Last Updated DateTime 11/21/2019 180.34 cm 39.3 kg/m2 682819.05 g Caroline Rojasyoandy [facility] 11/21/2019 11:09:04 Social History Question Answer Notes LastModified by Organizat ion Details LastModified Time Tobacco Smoking Status Never Smoker Caroline kruger [facility] 11/21/2019 11:10:15 What Is Your Level [...] Encounter Closed Date Diagnosis/Indication Diagnosis SNOMED-CT Code [id number] Momo delacruz MD, PHD [facility] [address] [place] [address] 11/21/2019 10:45:55 11/21/2019 15:00:28 Malignant tumor of prostate 452237160 29010 Caroline Gneiting [facility] [address] [place] [address] 11/28/2019 09:57:13 02/06/2020 03:54:17 [id number] Momo delacruz MD, PHD [facility] [address] [place] [address] 01/02/2020 08:46:59 01/02/2020 14:22:16 Malignant tumor of prostate [id number] [id number] Momo delacruz MD, PHD [facility] [address] [place] [address] 05/01/2020 09:26:51 05/01/2020 12:03:29 Malignant tumor of prostate 241802061 Primary er ectile dysfunction [id number] Momo delacruz MD, PHD [facility] [address] [place] [address] 10/24/2020 10:28:04 10/27/2020 16:45:05 Carcinoma of prostate 341162961 Malignant tumor of prostate 694087924 Primary er ectile dysfunction 750421824 Male urina ry stress incontinence 055726629 Health Concerns Section Related Observation LastModified by Organization Detai ls LastModified Time None Recorded Concern Status LastModified by Organization Details LastModified Time None Recorded Advance Directives Directive None Recorded Payers Encounter Date Sequence Insurance Name Policy Number Policy Archibald Covered Member ID Archibald Member ID Guarantor Name 11/21/2019 1 [employer] [id number] Julien Ridley [id number] Julien Ridley 11/28/2019 1 [employer] [id number] Julien Ridley [id number] Julien Ridley 01/02/2020 1 [employer] [id number] Julien Ridley [id number] Julien Ridley 05/01/2020 1 [employer] [id number] Julien Ridley [id number] Julien Ridley 10/24/2020 1 [employer] [id number] Julien Ridley [id number] Julien Ridley Notes Date Note Type Note Provider Name and Address Organization Details Recorded Time 11/21/2019 text/html HPI Notes: 59M s /p RALP 11/06/19 for [id number] [place] 3+4=7 prostate cancer (0/12 LN, -SMS) Overall doing well. Some drainage umbilical incision. Chronic LE edema worse especially R>L. Some hematuria when having BMs. No fever. Eating ok. Minimal pain. CT Cystogram today: small anastomotic leak PSA (07/27/19): 6.5 CONSTANZA: cT1c, 35g (J Carlos) MRI: none Biopsy (08/30/19): 23g, 3/12 cores (LLM, LMB, LMM [place] 3+4=7 up to 40%) Pre-op ED: 05/09 Momo Holliday MD, PHD [address] [facility],[address], [place], [address], [facility] 11/21/2019 14:07:42 01/02/2020 text/html HPI Notes: 59M with [id number] [place] 3+4=7 prostate cancer (0/12 LN, -SMS) s/p RALP 11/06/19. Small anastomotic leak, catheter removed 11/28/19. Overall doing well. C/o some leakage with BMs and position changes. Uses multiple depends per day...... LE u/s to eval for dvt last visit was negative PSA Results 07/27/19: 6.5 01/02/20: <0.04 UF: 07/07 EF: / Pre-op EF: / Momo Holliday MD, PHD [address] [place] [address],[address], [address], [facility] 01/02/2020 09:35:54 05/01/2020 text/html HPI Notes: 60M with [id number] [place] 3+4=7 prostate cancer (0/12 LN, -SMS) s/p RALP 11/06/19. Small anastomotic leak, catheter removed 11/28/19. Overall doing well. C/o some leakage with BMs and position changes. Uses 4ppd which is improvement. No problems with incisions. PSA Results 07/27/19: 6.5 01/02/20: <0.04 05/01/20: <0.04 UF: 3/5 EF: 5/5 Pre-op EF: 2/5 Momo Holliday MD, PHD [address] [place] [address],[address], [phone], [facility] 05/01/2020 10:48:15 10/24/2020 text/html HPI Notes: 60M with [id number] [place] 3+4=7 prostate cancer (0/12 LN, -SMS) s/p RALP 11/06/19 Overall doing well. C/o some leakage with BMs and position changes and sexual activity. Uses 4ppd still. No problems with incisions. PSA Results 07/27/19: 6.5 01/02/20: <0.04 05/01/20: <0.04 10/24/20: <0.04 UF: 3/5 EF: 5/5 Pre-op EF: 2/5 Momo Holliday MD, PHD [address] [place] [address],[address] [place] [address], [phone], [facility] 10/24/2020 11:30:55
--- OUTSIDE RECORDS SUMMARY | 2023-11-25 07:56 | XMS_ITS | Clinical Summary ---
Author Organization [facility] s & [facility] Address [place], [place] [address] Care Team Providers Care Equipment Maintenance Technician Name Role Phone Munir Sahu MD Primary Care Provider + [facility], [place] Unavailable Allergies Active Allergy Reactions Criticality Noted Date Comments Adhesive Tape-Silicones Rash 09/30/2023 Silver Rash 06/17/2017 Medications Medication Sig Dispensed Refills Start Date End Date Status blood-glucose meterIndications:T ype 2 diabetes mellitus with complication, without long-term [...] daily. Active aspirin chewable 81 mg chewable tabletIndications: NSTEMI (non-ST elevated myocardial infarction) (HC),CAD, multiple vessel,Type 2 diabetes mellitus with complication (HC) Take 1 Tablet (81 mg) by mouth or nasogastric tube once daily. 30 Tablet 09/28/2023 Active insulin glargine, U-100, (Lantus Solostar U-100 Insulin) 100 unit/mL (3 mL) penIndications:Typ e 2 diabetes mellitus with complication (HC) Inject 22 units subcutaneous once daily. Product desired: LANTUS SOLOSTAR (or brand of glargine as covered by insurance) 9 mL 09/28/2023 Active Insulin Benedict, Disposable, (Susana Pen Needle) 32 gauge x 5/32 Use as directed to inject insulin. Remove the 2 covers on the insulin pen needle before administering insulin dose. 100 Each 09/28/2023 Active acetaminophen (TYLENOL) 325 mg tabletIndications: NSTEMI (non-ST elevated myocardial infarction) (HC) Take 2 Tablets (650 mg) by mouth every 4 hours if needed for Pain (For mild pain.). Max acetaminophen dose: 4000mg in 24 hrs. 09/28/2023 Active Additional Information Patient taking differently:650 mg Oral Q 4H PRN, Pain, For mild pain., Max acetaminophen dose: 4000mg in 24 hrs.,Indications: pain, Reported on 10/28/2023 empagliflozin (Jardiance) 10 mg tabletIndications: Type 2 diabetes mellitus with complication (HC) Take 1 Tablet (10 mg) by mouth once daily. 30 Tablet 09/28/2023 Active atorvastatin (LIPITOR) 80 mg tabletIndications: CAD, multiple vessel,NSTEMI (non-ST elevated myocardial infarction) (HC) Take 1 Tablet (80 mg) by mouth at bedtime. 90 Tablet 10/20/2023 Active valsartan (DIOVAN) 40 mg tabletIndications: CAD, multiple vessel,NSTEMI (non-ST elevated myocardial infarction) (HC),Essential hypertension Take 1 Tablet (40 mg) by mouth once daily. 90 Tablet 10/20/2023 Active metoprolol succinate (TOPROL XL) 25 mg Sustained-Release tabletIndications: CAD, multiple vessel,NSTEMI (non-ST elevated myocardial infarction) (HC) Take 1 Tablet (25 mg) by mouth once daily. 90 Tablet 10/20/2023 Active furosemide (LASIX) 40 mg tabletIndications: CAD, multiple vessel,NSTEMI (non-ST elevated myocardial infarction) (HC) Take 1 Tablet (40 mg) by mouth two times daily. 180 Tablet 10/20/2023 Active clopidogreL (PLAVIX) 75 mg tabletIndications: NSTEMI (non-ST elevated myocardial infarction) (HC) Take 1 Tablet (75 mg) by mouth once daily in the morning. 90 Tablet 3 10/20/2023 Active nitroglycerin (NITROSTAT) 0.4 mg sublingual tabletIndications: CAD, multiple vessel Place 1 Tablet (0.4 mg) under the tongue every 5 minutes if needed for Chest pain 1st choice. Up to 3 tablets in 15 minutes. 25 Tablet 3 10/20/2023 Active amLODIPine (NORVASC) 5 mg tabletIndications: Essential hypertension Take 1 Tablet (5 mg) by mouth once daily. 30 Tablet 1 10/28/2023 Active Active Problems Problem Noted Date Diagnosed Date Coronary artery disease invo lving viejas coronary artery without angina pectoris 10/28/2023 Overview: [...] Encounters Date Type Department Care Team Description 11/22/2023 10:45 AM CDT [facility] [address] [place] [address] Tyson Mejias, PT PT - DISCIPLINE DISCHARGE 11/21/2023 10:00 AM CDT [facility] [address] [place] [phone] Irma Hollins, RN SN - HOME VISIT 11/17/2023 7:30 AM CDT [facility] [address] [place] [phone] Tyson Mejias, PT PT - HOME VISIT 11/15/2023 8:30 AM CDT [facility] [address] [place] [phone] Tyson Mejias, PT PT - HOME VISIT 11/14/2023 8:30 AM CDT [facility] [address] [place] [phone] Elvira Reyes RN SN - HOME VISIT 11/14/2023 3:30 AM CDT Home Care Visit [place] [address] [place] [phone] Ailyn Varghese RN SN - WOUND/OSTOMY CHART CONSULT 11/11/2023 Telephone [facility] [address] [place] [address] Anibal Quigley MD Referral 11/10/2023 8:00 AM CDT Home Care Visit [place] [address] [place] [phone] Tyosn Mejias, PT PT - HOME VISIT 11/09/2023 10:00 AM CDT [facility] [address] [place] [phone] Isa Cintron, CHITRA SN - HOME VISIT 11/09/[address] [facility] [address] [place] [address] Louisa Lopez PA <No scans attached> 11/08/2023 [facility] [address] [place] [phone] Tyson Mejias, PT CARE COORDINATION 11/07/2023 8:15 AM CDT [facility] [address] [place] [address] Tyson Mejias, PT PT - INITIAL ASSESSMENT 11/07/2023 7:30 AM CDT [facility] [address] [place] [phone] Lexi Esteves, CHITRA SN - HOME VISIT 11/04/2023 [facility] [address] [place] [phone] Elvira Reyes RN CARE COORDINATION 11/04/2023 Telephone [facility] [address] [facility] [address] [place] [address] Gregorio Olivia MD Medication Management (amlodipine) 11/02/2023 8:30 AM CDT [facility] [address] [place] [phone] Nohemy Anna LPN STILL OPERATOR - HOME VISIT 10/31/2023 3:00 PM CDT [facility] [address] [place] [phone] Evie Young RN SN - HOME VISIT 10/31/2023 Procedure Only [facility] [address] [facility] [address] [place] [phone] Device Check (Remote Leadless Pacemaker Ca... 10/28/2023 5:20 AM CDT - 10/28/2023 1:20 PM CDT Hospital Encounter [facility] [address] [place] [address] Kamran Li MD Essential hypertension (Primary Dx); CAD, multiple vessel; S/p 3V CABG (SHER-LAD, LISA-ramus, radial-OM), 09/23/2023 Discharge Disposition: Home Self Care 10/28/2023 [facility] [address] [place] [phone] Elvira Reyes RN CARE TRANSITION NOTE 10/28/2023 Travel 10/27/2023 8:30 AM CDT [facility] [address] [place] [address] Elvira Reyes RN SN - HOME VISIT 10/26/2023 10:48 PM CDT - 10/27/2023 12:53 AM CDT [facility] [address] [place] [address] Misha Styles III, MD Insomnia, unspecified type (Primary Dx); Anxiety Discharge Disposition: Home Self Care 10/26/2023 Travel 10/24/2023 9:00 AM CDT [facility] [address] [place] [phone] Elvira Reyes RN SN - HOME VISIT 10/21/2023 [facility] [address] [place] [phone] Elvira Reyes RN CARE COORDINATION 10/21/2023 Telephone [facility] [address] [place] [address] [place] [address] Quentin Aiken MD Pre Procedure 10/21/2023 Telephone [facility] [address] [place] [address] [place] [address] Jen Greenberg NP Results 10/20/2023 1:50 PM CDT Orders Only [facility] [address] [place] [address] [place] [address] Lab 10/20/2023 1:00 PM CDT Office Visit [facility] [address] [place] [address] [place] [address] Jen Greenberg NP Follow Up (3-4 weeks [...] 10/19/2023 7:45 AM CDT Home Care Visit [place] [address] [place] [phone] Elvira Reyes RN SN - HOME VISIT 10/17/2023 5:00 AM CDT Home Care Visit [address] [phone] Isa Cintron RN SN - HOME VISIT 10/14/2023 11:30 AM CDT Home Care Visit [address] [phone] Lavern Madrid RN SN - MISSED VISIT 10/12/2023 10:00 AM CDT Home Care Visit [address] [phone] Elvira Reyes RN SN - HOME VISIT 10/10/2023 9:45 AM CDT Home Care Visit [address] [phone] Elvira Reyes RN SN - HOME VISIT 10/07/2023 8:00 AM CDT Home Care Visit [address] [phone] Elvira Reyes RN SN - HOME VISIT 10/05/2023 12:30 PM CDT Home Care Visit [address] [phone] Elvira Reyes RN SN - HOME VISIT 10/04/2023 2:00 PM CDT Procedure Only [facility] [address] [facility] [address] [facility] [address] [place] [address] Device Check (IN CLINIC [employer] LEADLESS... 10/04/2023 Travel 10/03/2023 7:00 AM CDT [facility] [address] [place] [phone] Lexi Esteves, CHITRA SN - HOME VISIT 10/03/2023 1:00 AM CDT [facility] [address] [place] [phone] Ailyn Varghese, RN SN - WOUND/OSTOMY CHART CONSULT 10/03/2023 Telephone [facility] [address] [place] [address] Ailyn Varghese, emergency management program specialist (Vascular and or Wound clinic referral is needed. Supplies with [employer]) 09/30/2023 9:30 AM CDT [facility] [address] [place] [phone] Lexi Esteves, CHITRA SN - OASIS START OF CARE 09/30/2023 Plan of Care Documentation [facility] [address] [place] [phone] 09/28/2023 Orders Only [address] [place] [address] Alejandra Lau PA <No scans attached> 09/23/2023 2:03 PM CDT Anesthesia Event [address] [address] Marylou De Anda MD Ludwig, Margaret J, CRNA 09/23/2023 12:45 PM CDT - 09/23/2023 8:02 PM CDT Surgery [address] [address] Gregorio Olivia MD CORONARY ARTERY BYPASS X 3 WITH RADIAL HARVEST, AND TEMP VENTRICULAR PACING WIRES 09/18/2023 2:58 AM CDT - 09/28/2023 2:30 PM CDT Hospital Encounter [address] [address] s, U Hospitalist Wendy Cruz, DO [place], [...] CDT - 09/18/2023 1:46 AM CDT Emergency [facility] [address] [place] [address] Pritesh Boyer MD NSTEMI (non-ST elevated myocardial infarction) (HC) (Primary Dx) Discharge Disposition: Health Care Facility Not On List 09/17/[address] [facility] [address] [place] [address] Guzman Lovelace MD 09/17/2023 Travel 09/05/2023 Lab Requisition [facility] [phone] Unknown, Doctor from Last 3 Months Family [...] Sign Reading Time Taken Comments Blood Pressure 120/62 11/22/2023 10:49 AM CDT Pulse 100 11/22/2023 11:10 AM CDT Temperature 35.7 ??C (96.3 ??F) 11/22/2023 10:49 AM C DT Respiratory Rate 18 11/22/2023 10:49 AM CDT Oxygen Saturation 98% 11/22/2023 11:10 AM CDT Inhaled Oxygen Concentration - - Weight 128.8 kg (284 lb) 11/14/2023 8:55 AM CDT Height 180.3 cm (5' 11) 10/28/2023 7:31 AM CDT Body Mass Index 39.61 10/28/2023 7:31 AM CDT Plan of Treatment Upcoming Encounters Date Type Department Care Team (Late st Contact Info) Description 11/28/2023 4:00 AM CDT [facility] [address] [place] [phone] Elvira Reyes RN [address] [place] [address] 11/29/2023 9:30 AM CDT Appointment [facility] [address] [place] [address] 12/13/2023 8:00 AM CDT Appointment [facility] [address] [address] 12/13/2023 8:15 AM CDT Appointment [facility] 225 [facility] 100 [place] [address] 12/13/2023 1:30 PM CDT Office Visit [facility] 225 [facility] [address] [place] [phone] Kamran Li MD [address] [place] [address] 12/19/2023 9:30 AM CDT Orders Only [facility] [address] [place] [address] 01/12/2024 2:00 PM CDT Office Visit [facility] [address] [place] [address] Chriss Whittington MD [address] [place] [address] [place] [address] 02/27/2024 Procedure Only [facility] [address] [place] [address] [place] [address] Health Maintenance Due Date Last [...] THROMBIN TIME STAT 09/23/2023 8:05 PM CDT [facility] CATH INFUSION PR70 Routine 09/23/19 4:34 PM CDT [facility] KIT PR5 Routine 09/23/2023 4:34 PM CDT [facility] AN INTRODUCER 2 LUMEN PERFORMABLE Routine 09/23/2023 4:34 PM CDT [facility] DRSG PR1 Routine 09/23/2023 4:34 PM CDT [facility] DRSG PR5 Routine 09/23/2023 4:34 PM [...] Case Notes AVERAGE T/FPERFUSION-Confirmed w/Shayna for 1315 #[id number] EK 6/20OR STAFF BYPASS CORONARY ARTERY 01 2023 1:33 PM CDT Case Notes AVERAGE T/FPERFUSION-Confirmed w/Shayna for 1315 #[id number] EK 6/20OR STAFF GLUCOSE METER Timed 09/23/2023 [...] of53 resultswithin the time period is included. [facility] GLUCOSE METER 135(H) 65 - 100 mg/dL 10/28/2023 10:59 AM CDT [facility] Blood BLOOD SPECIMEN / Unknown 10/28/2023 10:59 AM CDT 10/28/2023 10:59 AM CDT Kamran Li MD CHEMISTRY [facility] SENDOUT INTERNAL ZIP [address] [place] [address] * SCAN-CARDIAC STRIP (10/28/2023 10:55 AM CDT) Scanner OTHER * EKG 12 LEAD (10/28/2023 10:33 AM CDT) Only the most recent of9 resultswithin the time period is included. Pathologist [facility] Interpretation Sinus rhythm with 1st degree A-V block Otherwise normal ECG When compared with ECG of 26-Oct-2023 23:34, No significant change was found BEYOND NOW Ventricular Rate 74 BPM BEYOND NOW Atrial Rate 74 BPM BEYOND NOW P-R Interval 270 ms BEYOND NOW QRS Duration 96 ms BEYOND NOW QT 426 ms BEYOND NOW QTc 472 ms BEYOND NOW P [place] 56 degrees BEYOND NOW R [place] 45 degrees BEYOND NOW T [place] 70 degrees BEYOND NOW 10/28/2023 10:3 3 AM CDT 10/28/2023 11:07 AM CDT Kamran Li MD EKG ORD BEYOND NOW [place], [place] * (ABNORMAL) ACTIVATED CLOTTING TIME [id number] ACT (10/28/2023 8:56 AM CDT) ACTIVATED CLOTTING TIME, POCT 304(H) 74 - 125 sec 10/28/2023 12:18 PM CDT [facility] Blood BLOOD SPECIMEN / Unknown 10/28/2023 8:56 AM CDT 10/28/2023 12:18 PM CDT Kamran Li MD HEMATOLOGY [facility] SENDOUT INTERNAL ZIP [phone] [place] [address] * CVL PCI ONLY (10/28/2023 8:19 AM CDT) Anatomical Region Laterality Modality X-Ray Angiograph y 10/28/2023 8:19 AM CDT Narrative Transcriptions Kamran Li MD - 10/28/2023 9:[address] [facility] Cardiac Catheterization Report Name: JOSE GUADALUPE RIDLEY Event Date: 10/28/2023 08:19 [facility] ID #: [id number] JAKE #: [id number] Diagnostic Physician: KAMRAN LI [facility] Interventional Physician: KAMRAN LI [facility] Referring Physician: GREGORIO OLIVIA Date: 1960 Gender: [...] inhibit spasm of the radialgraft. Consent & [place] Protocol The risks, benefits, and alternatives of the procedure were discussed withthe patient and written informed consent was obtained. [place] protocol was followed. TIME OUT conducted just prior tostarting procedure confirmed patient identity, site/side, procedure,patient position, and availability of correct equipment and implants (ifapplicable). Staff Name Title KAMRAN LI [employer] Rafaela Bailey RN Nurse Hung Oviedo RTR Machelle Adler RTR Monitor Jimmie Merino CVT Student Affairs Vice President Procedures ? US Guided Access ? Coronary [...] 15mm 1 Distal RCA Drug Eluting Stent Raymond Barrington 3.50 x 22mm Procedure Details Estimated Blood Loss: < 30 ml Specimen Collected: None Level of Sedation Achieved: Moderate Procedure Start: 08:19 Procedure End: :22 Procedure Time: 63 min Fluoroscopy Time: 16.2 min Cumulative Air Kerma: 1697 mGy DAP: 01855 mGy/cm2 Contrast: Omnipaque, 230 ml Physiologic Data [...] IV Kamran Li Kendra RN 08:39 Heparin 55165 units IV Kamran Li Kendra RN 08:44 [...] healthcare professional providing the sedation ends personal [id number] time with the patient. The medications listed above were verbally ordered by me and read back tome as documented above. Refer to the procedure log report for additional case details. electronically signed on 10/28/2023 9:33:27 AM with status of Final Kamran Li MD [address], [place] [address] [place] [address] (p) [phone](f) Alejandra FAJARDO [facility] * (ABNORMAL) CBC with Platelets no Differential (10/28/2023 6:35 AM CDT) Only the most recent of5 resultswithin the time period is included. WHITE BLOOD COUNT 5.9 4.5 - 11.0 thou/cu mm 10/28/2023 6:52 AM [facility] RED BLOOD COUNT 4.27(L) 4.30 - 5.90 mil/cu mm 10/28/2023 6:52 AM [facility] HEMOGLOBIN 12.6(L) 13.5 - 17.5 g/dL 10/28/2023 6:52 AM [facility] HEMATOCRIT 38.9 37.0 - 53.0 % 10/28/2023 6:52 AM [facility] MCV 91 80 - 100 fL 10/28/2023 6:52 AM [facility] MCH 29.5 26.0 - 34.0 pg 10/28/2023 6:52 AM [facility] MCHC 32.4 32.0 - 36.0 g/dL 10/28/2023 6:52 AM [facility] RDW 14.6 11.5 - 15.5 % 10/28/2023 6:52 AM [facility] PLATELET COUNT 193 140 - 440 thou/cu mm 10/28/2023 6:52 AM [facility] MPV 9.6 6.5 - 11.0 fL 10/28/2023 6:52 AM [facility] NRBC 0.0 % 10/28/2023 6:52 AM T [facility] ABS NRBC 0.0 thou /cu mm 10/28/2023 6:52 AM T [facility] Blood BLOOD SPECIMEN / Unknown Venipuncture / Unknown 10/28/2023 6:35 AM CDT 10/28/2023 6:45 AM CDT Gregorio Elizabeth MD HEMATOLOGY [facility] SENDOUT INTERNAL ZIP [phone] [place] [address] * (ABNORMAL) Basic Metabolic Panel (10/28/2023 6:35 AM CDT) Only the most recent of14 resultswithin the time period is included. SODIUM 139 136 - 145 mmol/L 10/28/2023 7:19 AM [facility] POTASSIUM 3.8 3.5 - 5.1 mmol/L 10/28/2023 7:19 AM [facility] CHLORIDE 102 98 - 107 mmol/L 10/28/2023 7:19 AM [facility] CO2,TOTAL 25 22 - 29 mmol/L 10/28/2023 7:19 AM [facility] ANION GAP 12 5 - 18 10/28/2023 7:19 AM [facility] GLUCOSE 158(H) 70 - 99 mg/dL 10/28/2023 7:19 AM [facility] CALCIUM 9.4 8.8 - 10.2 mg/dL 10/28/2023 7:19 AM [facility] BUN 19 8 - 23 mg/dL 10/28/2023 7:19 AM [facility] CREATININE 0.97 0.70 - 1.20 mg/dL 10/28/2023 7:19 AM [facility] BUN/CREAT RATIO 20 10 - 20 7:19 AM [facility] eGFR 88(L) >90 mL/min/1.7 3m2 10/28/2023 7:19 AM CDT [facility] Comment:As of 2021, eG [...] 6:45 AM CDT Gregorio Elizabeth MD CHEMISTRY [facility] SENDOUT INTERNAL ZIP [phone] [place] [phone] * URINALYSIS MICROSCOPIC (10/26/2023 11:46 PM CDT) RBC None Seen 0-2, None Seen /HPF 10/26/2023 11:55 PM CDT [facility] WBC 0-2 0-2, 3-5, None Seen /HPF 10/26/2023 11:55 PM CDT [facility] BACTERIA Rare None Seen, Rare, Few Bacteria/H PF 10/26/2023 11:55 PM CDT [facility] EPITHELIAL CELLS Few None Seen, Few Epi/HPF 10/26/2023 11:55 PM CDT [facility] Urine URINE SPECIMEN / Unknown Non-Blood / Unknown 10/26/2023 11:46 PM CDT 10/26/2023 11:49 PM CDT Misha Styles III, MD URINE [facility] [address] [address] * (ABNORMAL) Urinalysis w Reflex Microscopic if Positive (10/26/2023 11:46 PM CDT) COLOR Yellow Yellow Color 10/26/2023 11:52 PM CDT [facility] CLARITY Clear Clear Clarity 10/26/2023 11:52 PM CDT [facility] SPECIFIC GRAVITY,URINE 1.020 1.010, 1.015, 1.020, 1.025 10/26/2023 11:52 PM [facility] PH,URINE 6.0 6.0, 7.0, 8.0, 5.5, 6.5, 7.5, 8.5 10/26/2023 11:52 PM [facility] UROBILINOGEN, QUALITATIVE Normal Normal EU/dl 10/26/2023 11:52 PM [facility] PROTEIN, URINE Negative Negative mg/dL 10/26/2023 11:52 PM [facility] GLUCOSE, URINE >=1000(A) Negative mg/dL 10/26/2023 11:52 PM [facility] KETONES,URINE Negative Negative mg/dL 10/26/2023 11:52 PM [facility] BILIRUBIN,URI NE Negative Negative 10/26/2023 11:52 PM [facility] OCCULT BLOOD,URINE Negative Negative 10/26/2023 11:52 PM [facility] NITRITE Negative Negative 10/26/2023 11:52 PM [facility] LEUKOCYTE ESTERASE Negative Negative 10/26/2023 11:52 PM [facility] Urine URINE SPECIMEN / Unknown Non-Blood / Unknown 10/26/2023 11:46 PM CDT 10/26/2023 11:49 PM CDT Misha Styles III, MD URINE Performing Organization Address City/State/[facility] Co de Phone Number [facility] [address] [address] * (ABNORMAL) CBC WITH AUTO DIFFERENTIAL (10/26/2023 11:29 PM CDT) Only the most recent of3 resultswithin the time period is included. WHITE BLOOD COUNT 6.5 4.5 - 11.0 thou/cu mm 10/26/2023 11:40 PM [facility] RED BLOOD COUNT 4.13(L) 4.30 - 5.90 mil/cu mm 10/26/2023 11:40 PM [facility] HEMOGLOBIN 12.3(L) 13.5 - 17.5 g/dL 10/26/2023 11:40 PM [facility] HEMATOCRIT 39.2 37.0 - 53.0 % 10/26/2023 11:40 PM [facility] MCV 95 80 - 100 fL 10/26/2023 11:40 PM [facility] MCH 29.8 26.0 - 34.0 pg 10/26/2023 11:40 PM [facility] MCHC 31.4(L) 32.0 - 36.0 g/dL 10/26/2023 11:40 PM [facility] RDW 14.7 11.5 - 15.5 % 10/26/2023 11:40 PM [facility] PLATELET COUNT 179 140 - 440 thou/cu mm 10/26/2023 11:40 PM [facility] MPV 9.4 6.5 - 11.0 fL 10/26/2023 11:40 PM [facility] % NEUT 64.9 % 10/26/2023 11:40 PM [facility] % LYMPH 14.5 % 10/26/2023 11:40 PM [facility] % MONO 8.6 % 10/26/2023 11:40 PM [facility] % EOS 11.7 % 10/26/2023 11:40 PM [facility] % BASO 0.3 % 10/26/2023 11:40 PM [facility] ABSOLUTE NEUTROPHILS 4.2 1.7 - 7.0 thou/cu mm 10/26/2023 11:40 PM [facility] ABSOLUTE LYMPHOCYTES 0.9 0.9 - 2.9 thou/cu mm 10/26/2023 11:40 PM [facility] ABSOLUTE MONOCYTES 0.6 <0.9 thou/cu mm 10/26/2023 11:40 PM [facility] ABSOLUTE EOSINOPHILS 0.8(H) <0.5 thou/cu mm 10/26/2023 11:40 PM [facility] ABSOLUTE BASOPHILS 0.0 <0.3 thou/cu mm 10/26/2023 11:40 PM CDT [facility] Blood BLOOD SPECIMEN / Unknown Venipuncture / Unknown 10/26/2023 11:29 PM CDT 10/26/2023 11:31 PM CDT Misha Styles III, MD HEMATOLO GY [facility] [address] [phone] * SCAN-CARDIAC STRIP (09/28/2023 8:00 AM CDT) Scanner OTHER * PLATELET COUNT (09/28/2023 4:53 AM CDT) Only the most recent of10 resultswithin the time period is included. PLATELET COUNT 239 140 - 440 thou/cu mm 09/28/2023 5:32 AM CDT [facility] MPV 9.2 6.5 - 11.0 fL 09/28/2023 5:32 AM CDT [facility] Blood BLOOD SPECIMEN / Unknown Venipuncture / Unknown 09/28/2023 4:53 AM CDT 09/28/2023 5:21 AM CDT Sandhya FAJARDO HEMATOLOGY [facility] SENDOUT INTERNAL [facility] [phone] [place] [phone] * WHITE BLOOD COUNT (09/28/2023 4:53 AM CDT) Only the most recent of4 resultswithin the time period is included. WHITE BLOOD COUNT 7.3 4.5 - 11.0 thou/cu mm 09/28/2023 5:32 AM CDT [facility] NRBC 0.0 % 09/28/2023 5:32 AM CDT [facility] ABS NRBC 0.0 thou /cu mm 09/28/2023 5:32 AM CDT [facility] Blood BLOOD SPECIMEN / Unknown Venipuncture / Unknown 09/28/2023 4:53 AM CDT 09/28/2023 5:21 AM CDT Sandhya Aragon Kirstie [facility] Performing Organization Address City/[facility]/ZIP Co de Phone Number [facility] SENDOUT INTERNAL ZIP [phone] [place] [address] * (ABNORMAL) HEMOGLOBIN (09/28/2023 4:53 AM CDT) Only the most recent of10 resultswithin the time period is included. HEMOGLOBIN 11.6(L) 13.5 - 17.5 g/dL 09/28/2023 5:32 AM CDT [facility] MCV 91 80 - 100 fL 09/28/2023 5:32 AM CDT [facility] Blood BLOOD SPECIMEN / Unknown Venipuncture / Unknown 09/28/2023 4:53 AM CDT 09/28/2023 5:21 AM CDT Sandhya FAJARDO HEMATOLOGY Performing Organization Address City/[facility]/ZIP Co de Phone Number [facility] SENDOUT INTERNAL ZIP [phone] [place] [address] * SCAN-CARDIAC STRIP (09/27/2023 7:43 PM CDT) Scanner OTHER * ECHO TTE LIMITED W CONTRAST W COLOR W DOPPLER (09/27/2023 12:26 PM CDT) Pathologist [facility] EJECTION FRACTION 55% PROSOLV Anatomical Region Laterality Modality Ultrasound 09/27/2023 11:3 8 AM CDT Narrative 09/27/2023 12:43 PM [address]T [address] [address] Main: [email or web address] ? Transthoracic Echo Report JOSE GUADALUPE RIDLEY ID: [id number] Age: 63 : 1960 Ordering Provider: RAMANDEEP CHONG Exam Date: 09/27/2023 11:38 Gender: M [employer] Manager: [facility] Height: 68 in BSA: 2.46 m?? 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 [...] 4.93 mmHg Rusty Major MD (Electronically Signed) [facility] Accredited Site Final Date: 27 September 2023 12:41 ICD-10 Codes: Ramandeep Chong THIRD MATE ECHO ORD * POTASSIUM (09/27/2023 12:12 PM CDT) Only the most recent of4 resultswithin the time period is included. POTASSIUM 4.6 3.5 - 5.1 mmol/L 09/27/2023 12:45 PM CDT [facility] Blood BLOOD SPECIMEN / Unknown Butterfly / Unknown 09/27/2023 12:12 PM CDT 09/27/2023 12:28 PM CDT Gregorio Elizabeth MD CHEMISTRY [facility] SENDOUT INTERNAL ZIP [phone] [place] [address] * SCAN-CARDIAC STRIP (09/27/2023 8:00 AM CDT) [...] ICD Implant COMPARISON: 09/25/2023 Procedure Note Dani yRan MD - 09/27/2023 For Patients: As a result of the s Act, medical imagingexams and procedure reports are released immediately into your electronicmedical record. You may view this report before your referring provider.If you have questions, please contact your health care provider. EXAM: XR CHEST 2 VIEWS PA AND LATERAL LOCATION: [facility] DATE: 09/27/2023 INDICATION: Post Pacemaker [...] Juanito Romeo MD ? 09/26/2023 ??5:44 PM [facility] Electrophysiology Laboratory Leadless Pacemaker (AV [...] fluoroscopic image from device in [place] and [place] projection. The patient tolerated the procedure well [...] procedure. Attending Signature: Juanito Romeo M.D. Cardiac Embroiderer [facility] Manan Steele NP RAMP SERVICE MAN ORD * EP PPM (09/26/2023 4:54 PM CDT) Anatomical Region Laterality Modality Other 09/26/2023 4:54 PM CDT Manan Steele NP CV IMAGING * SCAN-CARDIAC STRIP (09/26/2023 8:36 AM CDT) Scanner OTHER * (ABNORMAL) Protime-INR (09/26/2023 5:26 AM CDT) Only the most recent of7 resultswithin the time period is included. INR 1.2 <1.3 09/26/2023 5:38 AM CDT [facility] PROTIME 13.3(H) 10.3 - 12.3 sec 09/26/2023 5:38 AM T [facility] Blood BLOOD SPECIMEN / Unknown Venipuncture / Unknown 09/26/2023 5:26 AM CDT 09/26/2023 5:30 AM CDT Narrative [facility] - 09/26/2023 5:38 AM [...] Gregorio Elizabeth MD HEMATOLOGY Performing Organization Address [facility]/ZIP Co de Phone Number [facility] SENDOUT INTERNAL ZIP [phone] [place] [phone] * SCAN-PACER (09/26/2023 12:00 AM CDT) Narrative 09/26/2023 12:00 AM CDT Ordered by an unspecified provider. Other Clinical Staff OTHER * SCAN-CARDIAC STRIP (09/25/2023 8:00 AM CDT) Scanner OTHER * MAGNESIUM (09/25/2023 5:07 AM CDT) Only the most recent of8 resultswithin the time period is included. MAGNESIUM 2.1 1.6 - 2.4 mg/dL 09/25/2023 5:34 AM CDT [facility] Blood BLOOD SPECIMEN / Unknown Non-Lab Venipuncture / Unknown 09/25/2023 5:07 AM CDT 09/25/2023 5:15 AM CDT Gregorio Elizabeth MD CHEMISTRY Performing Organization Address [facility]/ZIP Co de Phone Number [facility] SENDOUT INTERNAL ZIP [phone] [place] [phone] * SCAN-CARDIAC STRIP (09/24/2023 11:32 PM CDT) [...] EXAM: XR CHEST 1 VIEW PORTABLE LOCATION: [facility] MEDICAL IMAGING DATE: 09/24/2023 INDICATION: [...] EXAM: XR CHEST 1 VIEW PORTABLE LOCATION: [facility] MEDICAL IMAGING DATE: 09/24/2023 INDICATION: [...] - 1.27 mmol/L 09/24/2023 4:35 AM CDT [facility] Blood BLOOD SPECIMEN / Unknown Non-Lab Venipuncture / Unknown 09/24/2023 4:20 AM CDT 09/24/2023 4:32 AM CDT Gregorio Elizabeth MD CHEMISTRY Performing Organization Address City/[facility]/ZIP Co de Phone Number [facility] SENDOUT INTERNAL ZIP [phone] [place] [address] * (ABNORMAL) Arterial Blood Gas (09/24/2023 12:16 AM CDT) PH, ARTERIAL 7.33(L) 7.35 - 7.45 09/24/2023 12:25 AM CDT [facility] PCO2, ARTERIAL 52(H) 35 - 48 mmHg 09/24/2023 12:25 AM CDT [facility] PO2, ARTERIAL 164(H) 83 - 108 mmHg 09/24/2023 12:25 AM CDT [facility] HCO3, ARTERIAL 27 21 - 28 mmol/L 09/24/2023 12:25 AM CDT [facility] BASE EXCESS, ARTERIAL 0.6 -2.0 - 3.0 09/24/2023 12:25 AM CDT [facility] O2 SATURATION, ARTERIAL 100(H) 94 - 98 % 09/24/2023 12:25 AM CDT [facility] INSPIRED O2 95 09/24/2023 12:25 AM CDT [facility] Comment:Unit of Measure: Lit ers (L) if <=20; Percent (%) if >20 PATIENT TEMPERATURE 36.9 Degrees C 09/24/2023 12:25 AM CDT [facility] Blood ARTERIAL BLOOD SPECIMEN / Unknown Arterial / Unknown 09/24/2023 12:16 AM CDT 09/24/2023 12:21 AM CDT Gregorio Elizabeth MD CHEMISTRY [facility] SENDOUT INTERNAL ZIP [phone] [place] [address] * SCAN-CARDIAC STRIP (09/24/2023 12:00 AM CDT) Scanner OTHER * Thrombin Time - Immediate Postop (09/23/2023 9:45 PM CDT) Only the most recent of2 resultswithin the time period is included. THROMBIN TIME 15 <16 sec 09/23/2023 10:37 PM CDT [facility] Blood BLOOD SPECIMEN / Unknown Non-Lab Venipuncture / Unknown 09/23/2023 9:45 PM CDT 09/23/2023 9:55 PM CDT Gregorio Elizabeth MD HEMATOLOGY Performing Organization Address [facility] Co de Phone Number [facility] SENDOUT INTERNAL ZIP [address] [place] [phone] * (ABNORMAL) APTT - Immediate Postop (09/23/2023 9:45 PM CDT) Only the most recent of15 resultswithin the time period is included. APTT 23(L) 28 - 36 sec 09/23/2023 10:37 PM CDT [facility] Blood BLOOD SPECIMEN / Unknown Non-Lab Venipuncture / Unknown 09/23/2023 9:45 PM CDT 09/23/2023 9:55 PM CDT Narrative [facility] - 09/23/2023 10:37 PM CDT Therapeutic Range: 57-87 seconds Gregorio Elizabeth MD HEMATOLOGY Performing Organization Address [facility] Co de Phone Number [facility] SENDOUT INTERNAL ZIP [phone] [place] [phone] * (ABNORMAL) Fibrinogen, Quantitative - Immediate Postop (09/23/2023 9:45 PM CDT) Only the most recent of2 resultswithin the time period is included. FIBRINOGEN,MOHIT NTITATIVE 453(H) 193 - 401 mg/dL 09/23/2023 10:37 PM CDT [facility] Blood BLOOD SPECIMEN / Unknown Non-Lab Venipuncture / Unknown 09/23/2023 9:45 PM CDT 09/23/2023 9:55 PM CDT Gregorio Elizabeth MD HEMATOLOGY Performing Organization Address [facility]/ZIP Co de Phone Number [facility] SENDOUT INTERNAL ZIP [phone] [place] [phone] * (ABNORMAL) Cardiac Thromboelastography (09/23/2023 8:05 PM CDT) Only the most recent of2 resultswithin the time period is included. DESTINI REASON Diffuse Cardiac Bleeding 09/23/2023 10:17 PM CDT [facility] INTEM CT 212(H) 122 - 208 s 09/23/2023 10:17 PM CDT [facility] INTEM CFT 71 45 - 110 s 09/23/2023 10:17 PM CDT [facility] INTEM ALPHA 75 70 - 81 ?? 09/23/2023 10:17 PM CDT [facility] INTEM A10 57 46 - 67 mm 09/23/2023 10:17 PM CDT [facility] INTEM A20 63 51 - 72 mm 09/23/2023 10:17 PM CDT [facility] INTEM MCF 64 51 - 72 mm 09/23/2023 10:17 PM CDT [facility] INTEM ML 7 % 09/23/2023 10:17 PM CDT [facility] INTEM LI30 99 % 09/23/2023 10:17 PM CDT [facility] EXTEM CT 108(H) 43 - 82 s 09/23/2023 10:17 PM CDT [facility] EXTEM CFT 81 48 - 127 s 09/23/2023 10:17 PM CDT [facility] EXTEM ALPHA 74 65 - 80 ?? 09/23/2023 10:17 PM CDT [facility] EXTEM A10 60 46 - 67 mm 09/23/2023 10:17 PM CDT [facility] EXTEM A20 66 50 - 70 mm 09/23/2023 10:17 PM CDT [facility] EXTEM MCF 66 52 - 70 mm 09/23/2023 10:17 PM CDT [facility] EXTEM ML 7 % 09/23/2023 10:17 PM CDT [facility] EXTEM LI30 100 % 09/23/2023 10:17 PM CDT [facility] FIBTEM CT 116 s 09/23/2023 10:17 PM CDT [facility] FIBTEM CFT 593 s 09/23/2023 10:17 PM CDT [facility] FIBTEM ALPHA 67 ?? 09/23/2023 10:17 PM CDT [facility] FIBTEM A10 20 7 - 24 mm 09/23/2023 10:17 PM CDT [facility] FIBTEM A20 22 7 - 24 mm 09/23/2023 10:17 PM CDT [facility] FIBTEM MCF 23 7 - 24 mm 09/23/2023 10:17 PM CDT [facility] FIBTEM ML 0 % 09/23/2023 10:17 PM CDT [facility] FIBTEM LI30 100 % 09/23/2023 10:17 PM CDT [facility] HEPTEM CT 248(H) 122 - 208 s 09/23/2023 10:17 PM CDT [facility] HEPTEM CFT 83 45 - 110 s 09/23/2023 10:17 PM CDT [facility] HEPTEM ALPHA 73 70 - 81 ?? 09/23/2023 10:17 PM CDT [facility] HEPTEM A10 51 mm 09/23/2023 10:17 PM CDT [facility] HEPTEM A20 53 51 - 72 mm 09/23/2023 10:17 PM CDT [facility] HEPTEM MCF 54 51 - 72 mm 09/23/2023 10:17 PM CDT [facility] HEPTEM ML 10 % 09/23/2023 10:17 PM CDT [facility] Blood BLOOD SPECIMEN / Unknown Non-Lab Venipuncture / Unknown 09/23/2023 8:05 PM CDT 09/23/2023 8:13 PM CDT Milly Wang CRNA LEV TOLOGY [facility] SENDOUT INTERNAL ZIP [phone] [place] [address] * CVC TRIPLE LUMEN, HCHG STOPCOCK PR5, [...] ??Comment: Supplemental O2: supplemental oxygen. ??Comment:. Vessel Tmr Teacher Additional supplies used to locate vessel: no [...] . Video documentation of the exam on [employer] PRECPB EXAM The ZACHARY probe was [...] exam unchanged from pre-CPB. Images saved to casino beverage server. Teeth and oropharynx unchanged from pre-op. [...] >90 mL/min/1.7 3m2 09/22/2023 3:42 PM CDT [facility] Comment:As of 2021, eG FR is calculated by the CKD-EPI creatinine equation without race adjustment. ??eGFR can be influenced by muscle mass, exercise, and diet. ??The reported eGFR is an estimation only and is only applicable if the renal function is stable. CREATININE 1.13 0.70 - 1.20 mg/dL 09/22/2023 3:42 PM CDT [facility] Blood BLOOD SPECIMEN / Unknown Butterfly / Unknown 09/22/2023 3:12 PM CDT 09/22/2023 3:16 PM CDT Ramandeep Chong BOWEN CHEMISTRY [facility] SENDOUT INTERNAL ZIP [phone] [place] [phone] * RED BLOOD CELLS EA UNIT (09/22/2023 9:35 AM CDT) Only the most recent of2 resultswithin the time period is included. CROSSMATCH Compatible Compatible [facility] BLOOD BANK PRODUCT BLOOD TYPE O Rh Negative [facility] BLOOD BANK PRODUCT ID NUMBER [id number] [facility] BLOOD BANK PRODUCT STATUS /Relea sed [facility] BLOOD BANK PRODUCT DESCRIPTION RBC -1 LR [facility] BLOOD BANK PRODUCT CODE [id number] [facility] BLOOD BANK Ramandeep Chong THIRD MATE BLOOD BANK Performing Organization Address [facility]/ZIP Co de Phone Number [facility] BLOOD BANK [address] [place] [phone] * EXTRA TUBE LAVENDER (09/22/2023 9:34 AM CDT) Blood BLOOD SPECIMEN / Unknown Extra Tube / Unknown 09/22/2023 9:34 AM CDT 09/22/2023 10:58 AM CDT Doctor Unknown LABORATORY [facility] SENDOUT INTERNAL ZIP [phone] [place] [phone] * RBC W TYPE AND SCREEN (09/22/2023 9:34 AM CDT) ABORH O Rh Negative 09/22/2023 11:35 AM CDT [facility] BLOOD BANK ANTIBODY SCREEN Negative Negative 09/22/2023 11:35 AM CDT [facility] BLOOD BANK SPECIMEN EXPIRATION DATE/TIME 09/25/23 23:59 09/22/2023 11:35 AM CDT [facility] BLOOD BANK Blood BLOOD SPECIMEN / Unknown Venipuncture / Unknown 09/22/2023 9:34 AM CDT 09/22/2023 10:49 AM CDT Ramandeep Luanne Chong THIRD MATE BLOOD BANK Performing Organization Address City/[facility]/ZIP Co de Phone Number [facility] BLOOD BANK [address] [place] [address] * SCAN-CARDIAC STRIP (09/22/2023 8:13 AM CDT) Scanner OTHER * HEMATOCRIT (09/22/2023 4:55 AM CDT) Only the most recent of4 resultswithin the time period is included. HEMATOCRIT 45.1 37.0 - 53.0 % 09/22/2023 5:21 AM CDT [facility] Blood BLOOD SPECIMEN / Unknown Venipuncture / Unknown 09/22/2023 4:55 AM CDT 09/22/2023 5:18 AM CDT Narrative [facility] - 09/22/2023 5:21 AM CDT Every morning while on IV heparin. Every morning while on IV heparin. Necessary every morning while on IV heparin. Wendy King DO HEMATOLOGY Performing Organization Address City/[facility]/ZIP Co de Phone Number [facility] SENDOUT INTERNAL ZIP [phone] [place] [address] * SCAN-CARDIAC STRIP (09/22/2023 1:22 AM CDT) [...] CDT 1. ?Cholelithiasis. 2. ?Please refer to parcel post delivery's dictation for the cardiac CT report. Narrative 09/22/2023 3:42 PM CDT Results are automatically released to your [employer]) account once available, in compliance with federal regulations. ??This means that you may see your results before your provider has had a chance to review them. ??Please allow 2-3 business days for your provider to comment on the results. CT ANGIOGRAM OF THE THORACIC AORTA, 09/20/2023 INDICATION: Pre-coronary artery bypass grafting. CONCLUSIONS: This is a dual read study - please review [facility] over-read below for incidental non cardiac [...] cc/sec, was performed on a ??[employer] SOMATOM ShopRunner CT scanner. The imaging protocol was individualized to minimize radiation exposure. The following ECG-gated acquisition protocol was used: High pitch prospective. ??Pulse range 300-300. Tube potential: 120 kV. Tube current: 5004 mAs. Total DLP: 1158 mGy*cm; mSv: 16.2; CTDI: 54.3. Image post processing was performed on a [employer] Workstation. Images were reconstructed at a slice [...] for incidental non-cardiac findings. Monique Finn MD [facility] AB/car For Patients: As a result of the Cures Act, medical imaging exams and procedure reports are released immediately into your electronic medical record. You may view this report before your referring provider. If you have questions, please contact your health care provider. EXAM: OVERREAD: DETAILED [facility] EXTRACARDIAC OVERREAD OF CARDIAC CT LOCATION: [facility] MEDICAL IMAGING DATE: 09/20/2023 INDICATION: Preoperative aortic assessment. TECHNIQUE: Dose reduction techniques were used. COMPARISON: None. FINDINGS: LIMITED CHEST: Scattered mild atelectasis. LIMITED MEDIASTINUM: Cardiomegaly. No central pulmonary embolism. No bulky lymphadenopathy. LIMITED UPPER ABDOMEN: Cholelithiasis. 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 Ramandeep Luanne Chong NP CT * US ARTERIAL UPPER [...] EXAM: US ARTERIAL UPPER EXTREMITY LEFT LOCATION: [facility] MEDICAL IMAGING DATE: 09/20/2023 INDICATION: [...] EXAM: US ARTERIAL UPPER EXTREMITY LEFT LOCATION: [facility] MEDICAL IMAGING DATE: 09/20/2023 INDICATION: [...] Li MD - 09/19/2023 5:59 PM CDT [facility] Cardiac Catheterization Report Name: JOSE GUADALUPE RIDLEY Event Date: 09/19/2023 17:17 Excellian ID #: [id number] JAKE #: [id number] Diagnostic Physician: KAMRAN LI [facility] Primary Cvicu Rn: RACHID MÉNDEZ Referring Physician: Date: 1960 Gender: [...] < 70 ;Triglycerides < 100 Consent & [place] Protocol The risks, benefits, and alternatives of the procedure were discussed withthe patient and written informed consent was obtained. [place] protocol was followed. TIME OUT conducted just prior tostarting procedure confirmed patient identity, site/side, procedure,patient position, and availability of correct equipment and implants (ifapplicable). Staff Name Title KAMRAN LI Diagnostic Cvicu Rn Rafaela Bailey RN Nurse Dang Ghosh RN Cortney Toussaintberly RTR Scrub Dulce Maria Villalba CVT Monitor [...] min Cumulative Air Kerma: 493 mGy DAP: 67420 mGy/cm2 Contrast: Omnipaque, 50 ml Visipaque 320, [...] healthcare professional providing the sedation ends personal ianlhavlrvvegy-[id number] time with the patient. The medications listed above were verbally ordered by me and read back tome as documented above. Refer to the procedure log report for additional case details. electronically signed on 09/19/2023 5:59:16 PM with status of Final Kamran Li MD [address], [place] [address] [place] [address] (p) [phone](f) Quentin Aiken MD CV IMAGING * ECHO TTE COMPLETE W CONTRAST (09/19/2023 10:48 AM CDT) EJECTION FRACTION 45-50% PROSOLV Anatomical Region Laterality Modality Ultrasound 09/19/2023 10:1 2 AM CDT Narrative 09/19/2023 11:[address] AM CDT [address] [address] Main: [email or web address] ? 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 BP: 141 / 82 Weight: 318 lbs BMI: 44.4 kg/m?? HR: 85 Location: Inpatient (Portable) Rhythm: Normal Sinus Rhythm Procedure Components: 2D imaging with contrast, Color Doppler, Spectral Doppler Indications: Chest pain chest pressure chest tightening Technical Quality: Fair Contrast: Definity Constrast Dose (ml): 0.3 [facility]#: [id number] Final Conclusion 1. Technically challenging echocardiogram. 2. 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 BP: 141 / 82 Weight: 318 lbs BMI: 44.4 kg/m?? HR: 85 Location: Inpatient (Portable) Rhythm: Normal Sinus Rhythm Procedure Components: 2D imaging with contrast, Color Doppler, SpectralDoppler Indications: Chest pain chest pressure chest tightening Technical Quality: Fair Contrast: Definity Constrast Dose (ml): 0.3 [facility]#: [id number] Final Conclusion 1. Technically challenging echocardiogram. 2. [...] ZScore: 0.00 Rusty Major MD (Electronically Signed) [facility] Accredited Site Final Date: 19 September 2023 [...] 6.5(H) <=6.4 % 09/18/2023 7:22 AM CDT [facility] Blood BLOOD SPECIMEN / Unknown Venipuncture / Unknown 09/18/2023 4:17 AM CDT 09/18/2023 4:27 AM CDT Narrative [facility] - 09/18/2023 7:22 AM CDT ? (<5.7%) ?Normal ? (5.7% to 6.4%) ? Indicates prediabetes ? (>=6.5%) ? Confirms diabetes Falsely low levels may be seen with: Recent Transfusion, Recent Significant Blood Loss, Hemolytic Diseases, or Falsely elevated levels may be seen with: Untreated Anemias, Splenectomy Wendy King DO CHEMISTRY [facility] SENDOUT INTERNAL [facility] [phone] [place] [phone] * LIPID PANEL (09/18/2023 4:17 AM CDT) CHOLESTEROL,TOTAL 174 100 - 199 mg/dL 09/18/2023 4:54 AM T [facility] Comment: Cholesterol, Total Reference Ranges Desirable <200 mg/dL Borderline 200-239 mg/dL High >=240 mg/dL TRIGLYCERIDES 105 <150 mg/dL 09/18/2023 4:54 AM CDT [facility] HDL CHOLESTEROL 42 >40 mg/dL 4:54 AM CDT [facility] NON-HDL CHOLESTEROL 132 <145 mg/dl 09/18/2023 4:54 AM T [facility] CHOL/HDL RATIO 4.14 <4.50 09/18/2023 4:54 AM T [facility] LDL CHOLESTEROL 111 <=130 mg/dL 09/18/2023 4:54 AM CDT [facility] VLDL CHOLESTEROL 21 <=30 mg/dL 09/18/2023 4:54 AM CDT [facility] PROVIDER ORDERED STATUS RANDOM 09/18/2023 4:54 AM CDT [facility] Blood BLOOD SPECIMEN / Unknown Venipuncture / Unknown 09/18/2023 4:17 AM CDT 09/18/2023 4:27 AM CDT Wendy King DO CHEMISTRY [facility] SENDOUT INTERNAL ZIP [phone] [place] [address] * SCAN-CARDIAC STRIP (09/18/2023 3:10 AM CDT) Scanner OTHER * SCAN-CARDIAC STRIP (09/18/2023 12:00 AM CDT) Narrative 09/18/2023 12:00 AM CDT Ordered by an unspecified provider. Other Clinical Staff OTHER * (ABNORMAL) TROPONIN T (HS) ONE TIME (09/17/2023 9:52 PM CDT) TROPONIN T HS 156(H) 6-15 ng/L ng/L 09/17/2023 10:13 PM CDT [facility] Blood BLOOD SPECIMEN / Unknown Venipuncture / Unknown 09/17/2023 9:52 PM CDT 09/17/2023 9:53 PM CDT Pritesh Boyer MD CHEMISTRY [facility] [address] [phone] * (ABNORMAL) TROPONIN T (HS) ACUTE W/2HR REFLEX (09/17/2023 7:55 PM CDT) TROPONIN T HS 74(H) 6-15 ng/L ng/L 09/17/2023 8:29 PM CDT [facility] Blood BLOOD SPECIMEN / Unknown IV Start / Unknown 09/17/2023 7:55 PM CDT 09/17/2023 7:[address] [facility] - 09/17/2023 8:29 PM CDT [...] department patient population. Pritesh Boyer MD CHEMISTRY [facility] [address] [phone] * (ABNORMAL) COMP METABOLIC PANEL (09/17/2023 7:55 PM CDT) [facility] SODIUM 138 136 - 145 mmol/L 09/17/2023 8:29 PM [facility] POTASSIUM 4.5 3.5 - 5.1 mmol/L 09/17/2023 8:29 PM [facility] CHLORIDE 102 98 - 107 mmol/L 09/17/2023 8:29 PM [facility] CO2,TOTAL 27 22 - 29 mmol/L 09/17/2023 8:29 PM [facility] ANION GAP 9 5 - 18 09/17/2023 8:29 PM [facility] GLUCOSE 229(H) 70 - 99 mg/dL 09/17/2023 8:29 PM [facility] CALCIUM 9.2 8.8 - 10.2 mg/dL 09/17/2023 8:29 PM [facility] BUN 17 8 - 23 mg/dL 09/17/2023 8:29 PM [facility] CREATININE 0.93 0.70 - 1.20 mg/dL 09/17/2023 8:29 PM [facility] BUN/CREAT RATIO 18 10 - 20 8:29 PM [facility] eGFR >90 >90 mL/min/1.7 3m2 09/17/2023 8:29 PM [facility] Comment:As of 2021, eG FR is calculated by the CKD-EPI creatinine equation without race adjustment. ??eGFR can be influenced by muscle mass, exercise, and diet. ??The reported eGFR is an estimation only and is only applicable if the renal function is stable. ALBUMIN 3.9(L) 4.0 - 4.9 g/dL 09/17/2023 8:29 PM [facility] PROTEIN,TOTAL 7.2 6.0 - 8.0 g/dL 09/17/2023 8:29 PM [facility] BILIRUBIN,TOTAL 0.5 0.0 - 1.2 mg/dL 09/17/2023 8:29 PM [facility] ALK PHOSPHATASE 114 40 - 129 IU/L 09/17/2023 8:29 PM [facility] ALT (SGPT) 30 10 - 50 IU/L 09/17/2023 8:29 PM CDT [facility] AST (SGOT) 37 10 - 50 IU/L 09/17/2023 8:29 PM CDT [facility] Blood BLOOD SPECIMEN / Unknown IV Start / Unknown 09/17/2023 7:55 PM CDT 09/17/2023 7:56 PM CDT Pritesh Boyer MD CHEMISTRY Performing Organization Address City/[facility]/ZIP Co de Phone Number [facility] [address] [address] * (ABNORMAL) REFERRAL SUSCEPTIBILITY (09/02/2023 8:26 AM CDT) CULTURE RESULT(A) 09/07/2023 10:49 AM CDT [facility] CULTURE Streptococcus dysgalactiae (Beta Strep group C or G) 09/07/2023 10:49 AM CDT [facility] Other (Left ankle) Client Collect / [...] CLARITHROMYCIN S Doctor Unknown MICROBIOLOGY [facility] [address] [place] [address], from Last 3 Months Advance Directives * [...] Code Status Discussion: Not Discussed Care Teams Equipment Maintenance Technician Relationship Specialty Start Date End Date Munir Sahu MD [address] [place] [address] PCP - General Family Practice 09/17/23 [facility], [place] [address] [place] [address] 09/28/23
--- OUTSIDE RECORDS SUMMARY | 2023-11-25 07:56 | XMS_ITS | Referral Summary ---
Author Organization [facility] Address [address] [place] [address] Care Team Providers Care Gill Tender Name Role Phone Munir Sahu MD Primary Care Provider [phone] Allergies Active Allergy Reactions Criticality Noted Date [...] Advance Directives For more information, please contact: [phone] * Full Code (Latest Code Status on File) Date Activated Date Inactivated Comments 11/06/2019 2:19 PM 11/07/2019 9:06 PM All basic and advanced life-sustaining interventions are performed as appropriate Question Answer Comments Code status determined by: Unable to det ermine; FULL CODE until documents or legal decision maker available Care Teams Gill Tender Relationship Specialty Start Date End Date Munir Sahu MD PCP - General Family Practice 10/22/19
--- OUTSIDE RECORDS SUMMARY | 2023-11-25 07:57 | XMS_ITS ---
Author Organization [facility] Address [address] [place] [address] Care Team Providers Care Licensed Mortgage Loan Officer Name Role Phone Unavailable Unavailable Unavailable Surgery Details Not on file Complications Check Surgery Details section. Procedure Estimated Blood Loss Check Surgery Details section. Procedure Findings Check Surgery Details section. Procedure Specimens Taken Check Surgery Details section.
--- OUTSIDE RECORDS SUMMARY | 2023-11-25 07:57 | XMS_ITS | Referral Summary ---
Author Organization [facility] Address [address] [place] [address] Care Team Providers Care Tour Leader Name Role Phone Elsewhere, Pcp Primary Care Provider Unavailabl e Source Comments Patient records contain information from all sites at [facility]. For routine questions regarding patient records, call [phone] during business hours, M-F 8:00 AM - 5:00 PM Central Time. Record requests for emergency care only can be directed to [phone] at any time.[facility] Encounters Date Type Department Care Team Description 10/26/2023 10:48 PM CDT - 10/26/2023 11:59 PM CDT Emergency [facility] [address] [place] [address] Hyperglycemia (Primary Dx) Discharge Disposition: Home or Self Care 09/17/2023 7:59 PM CDT - 09/17/2023 11:59 PM CDT Emergency [facility] [address] [place] [address] Non-ST Elevation Myocardial Infarction (HCC) (Primary Dx) Discharge Disposition: Home or Self Care from Last 3 Months Allergies Active Allergy Reactions Criticality Noted Date Comments Dimethicone-Petrolatum Rash 02/01/2014 Horse [place] Rash 07/16/2016 Silver Sulfate-Foam Bandage Rash 02/02/20 [...] mouth. 11/07/2019 Active FreeStyle João 14 Day [place] misc 02/17/2021 Active FreeStyle João 14 Day [...] Comments Blood Pressure 160/85 04/17/2021 1:03 PM WASTEWATER PLANT OPERATOR Pulse 74 04/17/2021 1:03 PM WASTEWATER PLANT OPERATOR Temperature 36.4 ??C (97.5 ??F) 04/17/2021 1:03 PM CS T Respiratory Rate 14 02/15/2021 1:17 PM WASTEWATER PLANT OPERATOR Oxygen Saturation 95% 02/15/2021 1:17 PM WASTEWATER PLANT OPERATOR Inhaled Oxygen Concentration - - Weight 138 kg (304 lb 3.8 oz) 04/17/2021 1:03 PM WASTEWATER PLANT OPERATOR Height 178 cm (5' 10.08) 04/17/2021 1:03 PM WASTEWATER PLANT OPERATOR Body Mass Index 43.55 04/17/2021 1:03 PM WASTEWATER PLANT OPERATOR Plan of Treatment Not on file [...] PROCEDURES from Last 3 Months Care Teams Tour Leader Relationship Specialty Start Date End Date Elsewhere, Pcp PCP - General Family Medicine 06/15/17
--- OUTSIDE RECORDS SUMMARY | 2023-11-25 07:57 | XMS_ITS | Encounter Summary ---
Author Organization [facility] Address [address] [place] [address] Care Team Providers Care Paper Coater Name Role Phone Elsewhere, Pcp Primary Care Provider Unavailabl e Reason for Visit * Reason Comments Chest Pain Encounter Details Date Type Department Care Team (Late st Contact Info) Description 09/17/2023 7:59 PM CDT - 09/17/2023 11:59 PM CDT Emergency [facility] [address] [place] [phone] Non-ST Elevation Myocardial Infarction (HCC) (Primary Dx) [...] bandage 12 10/03/2017 FreeStyle João 14 Day [place] misc 02/17/2021 FreeStyle João 14 Day Sensor [...] Primary documented in this encounter Care Teams Paper Coater Relationship Specialty Start Date End Date Elsewhere, Pcp PCP - General Family Medicine 06/15/17 documented as of this encounter
--- OUTSIDE RECORDS SUMMARY | 2023-11-25 07:57 | XMS_ITS | Encounter Summary ---
Author Organization [facility] Address [address] [place] [address] Care Team Providers Care Belt Builder Helper Name Role Phone Elsewhere, Pcp Primary Care Provider Unavailabl e Reason for Visit * Reason Comments Weakness - Generalized Hyperglycemia Encounter Details Date Type Department Care Team (Late st Contact Info) Description 10/26/2023 10:48 PM CDT - 10/26/2023 11:59 PM CDT Emergency [facility] [address] [place] [phone] Hyperglycemia (Primary Dx) Discharge Disposition: Home or [...] bandage 12 10/03/2017 FreeStyle João 14 Day [place] misc 02/17/2021 FreeStyle João 14 Day Sensor [...] Primary documented in this encounter Care Teams Belt Builder Helper Relationship Specialty Start Date End Date Elsewhere, Pcp PCP - General Family Medicine 06/15/17 documented as of this encounter
== END 2023-11-25 07:54 | disposition home or self-care (01) ==
LOC: WOUND 07:53
PROVIDERS: PCP Family Medicine; Visit Provider Nurse Practitioner Family
DX: I87.2 Venous insufficiency (chronic) (peripheral) (principal); E11.622 Type 2 diabetes mellitus with other skin ulcer; I89.0 Lymphedema, not elsewhere classified; L97.322 Non-pressure chronic ulcer of left ankle with fat layer exposed; B96.5 Pseudomonas (aeruginosa) (mallei) (pseudomallei) as the cause of diseases classified elsewhere; Z79.84 Long term (current) use of oral hypoglycemic drugs
CPT/HCPCS: 11042; 87070; 87186; 96372; J0696

== ENCOUNTER 2023-12-02 07:45 | Outpatient (CLI) | payer OTHER, SELFPAY ==
--- OUTSIDE RECORDS SUMMARY | 2023-12-02 07:46 | XMS_ITS | Clinical Summary ---
Author Organization [facility] Address [address] [place] [address] Care Team Providers Care Planning And Analysis Manager Name Role Phone Munir Sahu MD [...] Advance Directives For more information, please contact: [phone] * Full Code (Latest Code Status on File) Date Activated Date Inactivated Comments 11/06/2019 2:19 PM 11/07/2019 9:06 PM All basic and advanced life-sustaining interventions are performed as appropriate Question Answer Comments Code status determined by: Unable to det ermine; FULL CODE until documents or legal decision maker available Care Teams Planning And Analysis Manager Relationship Specialty Start Date End Date Munir Sahu MD PCP - General Family Practice 10/22/19
--- OUTSIDE RECORDS SUMMARY | 2023-12-02 07:46 | XMS_ITS | Referral Summary ---
Author Organization [facility] Address [address] [place] [address] Care Team Providers Care Bridge Saw Operator Name Role Phone Munir Sahu MD Primary Care Provider [phone] Allergies Active Allergy Reactions Criticality Noted Date [...] Advance Directives For more information, please contact: [phone] * Full Code (Latest Code Status on File) Date Activated Date Inactivated Comments 11/06/2019 2:19 PM 11/07/2019 9:06 PM All basic and advanced life-sustaining interventions are performed as appropriate Question Answer Comments Code status determined by: Unable to det ermine; FULL CODE until documents or legal decision maker available Care Teams Bridge Saw Operator Relationship Specialty Start Date End Date Munir Sahu MD PCP - General Family Practice 10/22/19
--- OUTSIDE RECORDS SUMMARY | 2023-12-02 07:46 | XMS_ITS | Data Portability ---
Author Organization ID - [facility] Address [address] [facility] [address] [place] [address] Care Team Providers Care Card Cutter Name Role Phone GORDY SOL Primary Care Provider Assessment Encounter Date Assessment Date Assessment LastModified by Organization Details LastModified Time 11/21/2019 11/21/2019 59M with [id number] [place] 3+4=7 prostate cancer s/p RALP. Discussed pathology, risk of recurrence, need for ongoing PSA monitoring. Small anastomotic leak, will cont Choi x 1 more week. Worsened LE edema, likely chronic, but will check LE u/s to be sure no DVT. [email or web address] Not available 11/21/2019 14:07:03 01/02/2020 01/02/2020 59M with [id number] [place] 3+4=7 prostate cancer s/p RALP. 1) Prostate cancer - f/u 4 months with PSA 2) EVETTE, moderate - cont Kegels - consider PFPT 3) ED - Cialis PRN [email or web address] Not available 01/02/2020 09:34:03 05/01/2020 05/01/2020 60M with [id number] [place] 3+4=7 prostate cancer s/p RALP 6 months ago. MICHAEL. 1) Prostate cancer - f/u 6 months with PSA 2) EVETTE, moderate - cont Kegels - consider PFPT 3) ED - Cialis PRN [email or web address] Not available 05/01/2020 10:47:29 10/24/2020 10/24/2020 60M with [id number] [place] 3+4=7 prostate cancer s/p RALP 1 [...] floor therap y referr al 2020 021 [facility], [address], [facility] [address], [place], [address], 09:57:49 Procedures None record ed. Surgeries None record ed. Imaging None record ed. Medication Orders None record ed. Patient TargetsNo targets recorded. Patient Instructions Encounter Date Encounter Id Patient Instructions Last Modified By Organization Details Last Modified Time 11/28/2019 [id number] To follow up sumaya Doshi at his next appointment, call with any concerns before then mgneiting Not available 02/04/2020 12:00:45 Reason for Referral Pelvic Floor Therapy Referra l for Male urinary stress incontinence Referring Physician: Momo Mc, Urology, Encounter Date: 10/24/2020 Results Created Date Observation Date Name Description Value Unit Range Abnormal Flag Note LastModifiedBy Organization Detail LastModifiedTime 05/01/2020 PSA, serum or plasm a PSA, Total <0.04 ng/ml Not Available [facility] [address], [place], [address], 05/01/2020 10:40:29 02/11/2020 lab* PSA <0.04 normal Not Available No t Available 01/07/2020 12:33:24 01/02/2020 PSA, serum or plasm a PSA, Total <0.04 ng/Ml Not Available [facility] [address], [place], [address], 01/02/2020 09:14:10 10/25/19 21 10/24/2020 PSA, serum or plasm a PSA, Total <0.04n g/mL Not Available [facility] [address], [place], [address], 10/24/2020 10:45:30 11/23/19 20 11/21/2019 CT, pelvi s, w/o contr ast No observ ation record ed. cedric Not Available 17:13:18 Result Notes None recorded. Problems Name Problem SNOMED Code Status Onset Date Resolution Date Notes Provider Name and Address Organization Details Recorded Time Carcinoma of prostate 224445782 Active [address] [facility] 0 10:59:25 Male urinary stress incontinence 437050585 Active 2020 Momo mcfarlane MD, PHD [address] [place] [address],[address] [place] [address], [phone], [facility] 10:47:38 Primary erectile dysfunction 159775274 Active 2020 Momo mcfarlane MD, PHD [address] [place] [address],[address] [place] [address], [phone], [facility] 10:47:58 Problem Notes None recorded. Procedures Surgical History Date Name Laterality Status Provider Name and Address Organization Details Recorded Time 10/25/19 21 Blood Draw/MEDICAL FEE CLERK/PSA RESULTS completed Momo baez MD, PHD [address] [place] [address],[address], [place], [address], [facility] 10/24/2020 10:45:26 05/01/19 21 Blood Draw/MEDICAL FEE CLERK/PSA RESULTS completed Momo baez MD, PHD [address] [place] [address],[address] [place] [address], [phone], [facility] 05/01/2020 10:40:25 01/02/20 20 Blood Draw/MEDICAL FEE CLERK/PSA RESULTS completed Janice Ayala [facility], [facility] 01/02/2020 09:14:04 11/28/19 20 Choi Catheter Removal completed Caroline Smith [facility], [facility] 02/04/2020 12:00:10 Prostatectomy completed Momo baez MD, PHD [address] [place] [address],[facility] [address], [address], [facility] 10/24/2020 10:44:48 colonoscopy completed Monica Awan [facility], [facility] 12/09/2020 10:47:07 Imaging Results Imaging Date Name Status LastModified by Organiz ation Details LastModified Time 11/21/2019 CT, pelvis, w/o contrast completed cedric Information not available 11/29/2019 17:13:18 Procedure Notes None recorded. Medical Equipment None Reported. Allergies Allergen ID Allergen Name Allergen Category Reaction Reaction Severity Criticality Documentation Date Start Date Code Code System Note Provider Name and Address Organization Details Recorded Time 750917 silver medicatio n Not available Not available Not available 11/21/2019 [address] [facility] 0 11:09:54 437264 adhesive tape environme nt,medica tion Not available Not available Not available 11/21/[address] [facility] 0 11:10:01 Medications Name [...] Updated DateTime 01/02/2020 180.34 cm 39.3 kg/m2 065092.05 g Caroline Smith [facility] 01/02/2020 09:09:40 Date Recorded Body height Body mass index (BMI) Body weight Provider Name and Address Organization Details Last Updated DateTime 05/01/2020 180.34 cm 39.3 kg/m2 959953.05 g Momo baez MD, PHD [address] [place], [place] [address] [place] [address] 05/01/2020 10:39:59 Date Recorded Body height Body mass index (BMI) Body weight Provider Name and Address Organization Details Last Updated DateTime 10/24/2020 180.34 cm 39.7 kg/m2 717844.83 g Momo baez MD, PHD [address] [place], [place] [address] [place] [address] 10/24/2020 10:44:13 Date Recorded Body height Body mass index (BMI) Body weight Provider Name and Address Organization Details Last Updated DateTime 11/21/2019 180.34 cm 39.3 kg/m2 569273.05 g Caroline Smith [facility] 11/21/2019 11:09:04 Social History Question Answer Notes LastModified by Organizat ion Details LastModified Time Tobacco Smoking Status Never Smoker Caroline kruger [facility] 11/21/2019 11:10:15 What Is Your Level [...] Encounter Closed Date Diagnosis/Indication Diagnosis SNOMED-CT Code Diagnosis ICD10 Code [id number] Momo beard MD, PHD [facility] [employer] [facility] [place] [address] 11/21/2019 10:45:55 11/21/2019 15:00:28 Malignant tumor of prostate 495601249 C61 [id number] Caroline Gneiting [facility] [employer] [facility] [place] [address] 11/28/2019 09:57:13 02/06/2020 03:54:17 [id number] Momo beard MD, PHD [facility] [employer] [facility] [place] [address] 01/02/2020 08:46:59 01/02/2020 14:22:16 Malignant tumor of prostate 361264472 C61 [id number] Momo beard MD, PHD [facility] [employer] [facility] [place] [address] 05/01/2020 09:26:51 05/01/2020 12:03:29 Malignant tumor of prostate 847415710 C61 Primary er ectile dysfunction 494053288 N52.9 [id number] Momo beard MD, PHD [facility] [employer] [facility] [place] [address] 10/24/2020 10:28:04 10/27/2020 16:45:05 Carcinoma of prostate 309722025 C61 Malignant tumor of prostate 616134834 C61 Primary er ectile dysfunction 472232917 N52.9 Male urina ry stress incontinence 746120933 N39.3 Health Concerns Section Related Observation LastModified by Organization Detai ls LastModified Time None Recorded Concern Status LastModified by Organization Details LastModified Time None Recorded Advance Directives Directive None Recorded Payers Encounter Date Sequence Insurance Name Policy Number Policy Archibald Covered Member ID Archibald Member ID Guarantor Name 11/21/2019 1 [facility] [id number] Julien Ridley [id number] Julien Ridley 11/28/2019 1 [facility] [id number] Julien Ridley [id number] Julien Ridley 01/02/2020 1 [facility] [id number] Julien Ridley [id number] Julien Ridley 05/01/2020 1 [facility] [id number] Julien Ridley [id number] Julien Ridley 10/24/2020 1 [facility] [id number] Julien Ridley [id number] Julien Ridley Notes Date Note Type Note Provider Name and Address Organization Details Recorded Time 11/21/2019 text/html HPI Notes: 59M s /p RALP 11/06/19 for [id number] [place] 3+4=7 prostate cancer (0/12 LN, -SMS) [...] Pre-op ED: 2 Momo Holliday MD, PHD [address] [place] [address],[address], [address], [facility] 11/21/2019 14:07:42 01/02/2020 text/html HPI Notes: 59M with [id number] [place] 3+4=7 prostate cancer (0/12 LN, -SMS) s/p RALP 11/06/19. Small anastomotic leak, catheter removed 11/28/19. Overall doing well. C/o some leakage with BMs and position changes. Uses multiple depends per day...... LE u/s to eval for dvt last visit was negative PSA Results 07/27/19: 6.5 01/02/20: <0.04 UF: 4 EF: 5/ Pre-op EF: 2/5 Momo Holliday MD, PHD [address] [place] [address], [phone], [facility] 01/02/2020 09:35:54 05/01/2020 text/html HPI Notes: 60M with [id number] [place] 3+4=7 prostate cancer (0/12 LN, -SMS) s/p RALP 11/06/19. Small anastomotic leak, catheter removed 11/28/19. Overall doing well. C/o some leakage with BMs and position changes. Uses 4ppd which is improvement. No problems with incisions. PSA Results 07/27/19: 6.5 01/02/20: <0.04 05/01/20: <0.04 UF: 3/5 EF: 5/ Pre-op EF: 2/5 Momo Holliday MD, PHD [address] [place] [address], [phone], [facility] 05/01/2020 10:48:15 10/24/2020 text/html HPI Notes: 60M with [id number] [place] 3+4=7 prostate cancer (0/12 LN, -SMS) s/p RALP 11/06/19 Overall doing well. C/o some leakage with BMs and position changes and sexual activity. Uses 4ppd still. No problems with incisions. PSA Results 07/27/19: 6.5 01/02/20: <0.04 05/01/20: <0.04 10/24/20: <0.04 UF: 3/5 EF: 5/5 Pre-op EF: 2/5 Momo Holliday MD, PHD [address] [place] [address],[address], [phone], [facility] 10/24/2020 11:30:55
--- OUTSIDE RECORDS SUMMARY | 2023-12-02 07:47 | XMS_ITS | Clinical Summary ---
Author Organization [facility] Address [address] [place] [address] Care Team Providers Care Video Intern Name Role Phone Elsewhere, Pcp Primary Care Provider Unavailabl e Source Comments Patient records contain information from all sites at [facility]. For routine questions regarding patient records, call [phone] during business hours, M-F 8:00 AM - 5:00 PM Central Time. Record requests for emergency care only can be directed to [phone] at any time.[facility] Allergies Active Allergy Reactions Criticality Noted Date Comments Dimethicone-Petrolatum Rash 02/01/2014 Horse [place] Rash 07/16/2016 Silver Sulfate-Foam Bandage Rash 02/02/20 [...] mouth. 11/07/2019 Active FreeStyle João 14 Day [place] misc 02/17/2021 Active FreeStyle João 14 Day [...] CDT - 10/26/2023 11:59 PM CDT Emergency [facility] [address] [place] [address] Hyperglycemia (Primary Dx) Discharge Disposition: Home or Self Care 09/17/2023 7:59 PM CDT - 09/17/2023 11:59 PM CDT Emergency [facility] [address] [place] [address] Non-ST Elevation Myocardial Infarction (HCC) (Primary Dx) [...] Comments Blood Pressure 160/85 04/17/2021 1:03 PM NOC ENGINEER Pulse 74 04/17/2021 1:03 PM NOC ENGINEER Temperature 36.4 ??C (97.5 ??F) 04/17/2021 1:03 PM CS T Respiratory Rate 14 02/15/2021 1:17 PM NOC ENGINEER Oxygen Saturation 95% 02/15/2021 1:17 PM NOC ENGINEER Inhaled Oxygen Concentration - - Weight 138 kg (304 lb 3.8 oz) 04/17/2021 1:03 PM NOC ENGINEER Height 178 cm (5' 10.08) 04/17/2021 1:03 PM NOC ENGINEER Body Mass Index 43.55 04/17/2021 1:03 PM NOC ENGINEER Plan of Treatment Health Maintenance Due Date [...] PROCEDURES from Last 3 Months Care Teams Video Intern Relationship Specialty Start Date End Date Elsewhere, Pcp PCP - General Family Medicine 06/15/17
--- OUTSIDE RECORDS SUMMARY | 2023-12-02 07:47 | XMS_ITS | Referral Summary ---
Author Organization [facility] Address [address] [place] [address] Care Team Providers Care Puppy Trainer Name Role Phone Elsewhere, Pcp Primary Care Provider Unavailabl e Source Comments Patient records contain information from all sites at [facility]. For routine questions regarding patient records, call [phone] during business hours, M-F 8:00 AM - 5:00 PM Central Time. Record requests for emergency care only can be directed to [phone] at any time.[facility] Encounters Date Type Department Care Team Description 10/26/2023 10:48 PM CDT - 10/26/2023 11:59 PM CDT Emergency [facility] [address] [place] [address] Hyperglycemia (Primary Dx) Discharge Disposition: Home or Self Care 09/17/2023 7:59 PM CDT - 09/17/2023 11:59 PM CDT Emergency [facility] [address] [place] [address] Non-ST Elevation Myocardial Infarction (HCC) (Primary Dx) Discharge Disposition: Home or Self Care from Last 3 Months Allergies Active Allergy Reactions Criticality Noted Date Comments Dimethicone-Petrolatum Rash 02/01/2014 Horse Ivins Rash 07/16/2016 Silver Sulfate-Foam Bandage Rash 02/02/20 [...] mouth. 11/07/2019 Active FreeStyle João 14 Day [place] misc 02/17/2021 Active FreeStyle João 14 Day [...] Comments Blood Pressure 160/85 04/17/2021 1:03 PM TUBE CLOSING MACHINE OPERATOR Pulse 74 04/17/2021 1:03 PM TUBE CLOSING MACHINE OPERATOR Temperature 36.4 ??C (97.5 ??F) 04/17/2021 1:03 PM CS T Respiratory Rate 14 02/15/2021 1:17 PM TUBE CLOSING MACHINE OPERATOR Oxygen Saturation 95% 02/15/2021 1:17 PM TUBE CLOSING MACHINE OPERATOR Inhaled Oxygen Concentration - - Weight 138 kg (304 lb 3.8 oz) 04/17/2021 1:03 PM TUBE CLOSING MACHINE OPERATOR Height 178 cm (5' 10.08) 04/17/2021 1:03 PM TUBE CLOSING MACHINE OPERATOR Body Mass Index 43.55 04/17/2021 1:03 PM TUBE CLOSING MACHINE OPERATOR Plan of Treatment Not on file [...] PROCEDURES from Last 3 Months Care Teams Puppy Trainer Relationship Specialty Start Date End Date Elsewhere, Pcp PCP - General Family Medicine 06/15/17
--- OUTSIDE RECORDS SUMMARY | 2023-12-02 07:47 | XMS_ITS | Clinical Summary ---
Author Organization [employer] Formerly [facility] s & [facility] Address [place], [place] [address] Care Team Providers Care Supercharger Repair Supervisor Name Role Phone Munir Sahu MD Primary Care Provider + [facility] [place] Unavailable [phone] Allergies Active Allergy Reactions Criticality Noted Date [...] by insurance) 9 mL 09/28/2023 Active Insulin Corrigan, Disposable, (Susana Pen Needle) 32 gauge x [...] Diagnosed Date Coronary artery disease invo lving venetie ira coronary artery without angina pectoris 10/28/2023 Overview: [...] Encounters Date Type Department Care Team Description 12/01/2023 6:55 AM CDT - 12/01/2023 11:59 PM CDT Hospital Encounter [facility] [id number] [address] 12/01/2023 Travel 11/30/2023 6:55 AM CDT - 11/30/2023 11:59 PM CDT Hospital Encounter [facility] [address] [place] [address] 11/30/2023 Travel 11/29/2023 9:09 AM CDT - 11/29/2023 11:59 PM CDT Hospital Encounter [facility] [address] [place] [address] Alejandra Lau PA S/p 3V CABG (SHER-LAD, LISA-ramus, radial-OM), 09/23/2023 11/29/2023 Travel 11/28/2023 7:30 AM CDT Home Care Visit [facility] [id number] [place] [phone] Elvira Reyes RN SN - OASIS DISCHARGE 11/22/2023 10:45 AM CDT Home Care Visit [address] [phone] Tyson Mejias, PT PT - DISCIPLINE DISCHARGE 11/21/2023 10:00 AM CDT Home Care Visit [facility] [address] [place] [phone] Irma Hollins RN SN - HOME VISIT 11/17/2023 7:30 AM CDT Home Care Visit [address] [phone] Tyson Mejias, PT PT - HOME VISIT 11/15/2023 8:30 AM CDT Home Care Visit [address] [phone] Tyson Mejias, PT PT - HOME VISIT 11/14/2023 8:30 AM CDT Home Care Visit [address] [phone] Elvira Reyes RN SN - HOME VISIT 11/14/2023 3:30 AM CDT Home Care Visit [address] [place] [address] Ailyn Varghese RN SN - WOUND/OSTOMY CHART CONSULT 11/11/2023 Telephone [facility] [address] [place] [address] Anibal Quigley MD Referral 11/10/2023 8:00 AM CDT Home Care Visit Replaced By [facility] [address] [place] [phone] Tyson Mejias, PT PT - HOME VISIT 11/09/2023 10:00 AM CDT Home Care Visit Replaced By [facility] [address] [place] [phone] Isa Cintron RN SN - HOME VISIT 11/09/2023 Orders Only [facility] [address] [place] [address] Louisa Lopez PA <No scans attached> 11/08/2023 Home Care Visit Replaced By [facility] [address] [place] [phone] Tyson Mejias, PT CARE COORDINATION 11/07/2023 8:15 AM CDT Home Care Visit Replaced By [facility] [address] [place] [phone] Tyson Mejias, PT PT - INITIAL ASSESSMENT 11/07/2023 7:30 AM CDT Home Care Visit Replaced By [facility] [address] [place] [phone] Lexi Esteves RN SN - HOME VISIT 11/04/2023 Home Care Visit Replaced By [facility] [address] [place] [phone] Elvira Reyes RN CARE COORDINATION 11/04/2023 Telephone [facility] [address] [place] [address] Gregorio Olivia MD Medication Management (amlodipine) 11/02/2023 8:30 AM CDT Home Care Visit Replaced By [facility] [address] [place] [phone] Nohemy Anna LPN DURAL MECHANIC - HOME VISIT 10/31/2023 3:00 PM CDT Home Care Visit Replaced By [facility] [address] [place] [address] Evie Young RN SN - HOME VISIT 10/31/2023 Procedure Only [facility] [address] [facility] [address] [place] [phone] Device Check (Remote Leadless Pacemaker Ca... 10/28/2023 5:20 AM CDT - 10/28/2023 1:20 PM CDT Hospital Encounter [facility] [address] [place] [address] Kamran Li MD Essential hypertension (Primary Dx); CAD, multiple vessel; S/p 3V CABG (SHER-LAD, LISA-ramus, radial-OM), 09/23/2023 Discharge Disposition: Home Self Care 10/28/2023 Home Care Visit Replaced By [facility] [address] [place] [address] Elvira Reyes LIVING SPECIALIST NOTE 10/28/2023 Travel 10/27/2023 8:30 AM CDT Home Care Visit Replaced By [facility] [address] [place] [phone] Elvira Reyes RN SN - HOME VISIT 10/26/2023 10:48 PM CDT - 10/27/2023 12:53 AM CDT Emergency [facility] [address] [place] [address] Misha Styles III, MD Insomnia, unspecified type (Primary Dx); Anxiety Discharge Disposition: Home Self Care 10/26/2023 Travel 10/24/2023 9:00 AM CDT Home Care Visit Replaced By [facility] [address] [place] [address] Elvira Reyes RN SN - HOME VISIT 10/21/2023 Home Care Visit Replaced By [facility] [address] [place] [address] Elvira Reyes, RN CARE COORDINATION 10/21/2023 Telephone [facility] [address] [place] [address] Quentin Aiken MD Pre Procedure 10/21/2023 Telephone [facility] [address] [place] [address] Jen Greenberg NP Results 10/20/2023 1:50 PM CDT Orders Only [facility] [address] [place] [address] Lab 10/20/2023 1:00 PM CDT Office Visit [facility] [address] [place] [address] Jen Greenberg NP Follow Up (3-4 weeks [...] 10/19/2023 7:45 AM CDT Home Care Visit Replaced By [facility] [address] [place] [address] Elvira Reyes, RN SN - HOME VISIT 10/17/2023 5:00 AM CDT Home Care Visit Replaced By [facility] [address] [place] [phone] Isa Cintron RN SN - HOME VISIT 10/14/2023 11:30 AM CDT Home Care Visit Replaced By [facility] [address] [place] [phone] Lavern Madrid RN SN - MISSED VISIT 10/12/2023 10:00 AM CDT Home Care Visit Replaced By [facility] [address] [place] [phone] Elvira Reyes RN SN - HOME VISIT 10/10/2023 9:45 AM CDT Home Care Visit Replaced By [facility] [address] [place] [phone] Elvira Reyes RN SN - HOME VISIT 10/07/2023 8:00 AM CDT Home Care Visit Replaced By [facility] [address] [place] [phone] Elvira Reyes RN SN - HOME VISIT 10/05/2023 12:30 PM CDT Home Care Visit [facility] [address] [place] [phone] Elvira Reyes RN SN - HOME VISIT 10/04/2023 2:00 PM CDT Procedure Only [address] [phone] Device Check (IN CLINIC [employer] LEADLESS... 10/04/2023 Travel 10/03/2023 7:00 AM CDT Home Care Visit [facility] [address] [place] [phone] Lexi Esteves RN SN - HOME VISIT 10/03/2023 1:00 AM CDT Home Care Visit Replaced By [facility] [address] [place] [phone] Ailyn Varghese RN SN - WOUND/OSTOMY CHART CONSULT 10/03/[address] [phone] Ailyn Varghese vp organizational development (Vascular and or Wound clinic referral is needed. Supplies with [employer]) 09/30/2023 9:30 AM CDT Home Care Visit Replaced By [facility] [address] [place] [phone] Lexi Esteves RN SN - OASIS START OF CARE 09/30/2023 Plan of Care Documentation [facility] [address] [place] [phone] 09/28/2023 Orders Only [facility] [address] [place] [phone] Alejandra Lau PA <No scans attached> 09/23/2023 2:03 PM CDT Anesthesia Event [facility] [address] [place] [address] Marylou De Anda MD Ludwig, Margaret J, CRNA 09/23/2023 12:45 PM CDT - 09/23/2023 8:02 PM CDT Surgery [facility] [address] [place] [address] Gregorio Olivia MD CORONARY ARTERY BYPASS X 3 WITH RADIAL HARVEST, AND TEMP VENTRICULAR PACING WIRES 09/18/2023 2:58 AM CDT - 09/28/2023 2:30 PM CDT Hospital Encounter [facility] [address] [facility] [place] [address] s, U Hospitalist Wendy Rodriguez DO Kroschel, MD Cristal Gallardo, Munir Muhammad MD S/p 3V CABG (SHER-LAD, LISA-ramus, radial-OM), 09/23/2023 (Primary Dx); Ulcer of left lower extremity with fat layer exposed (HC) [L97.922]; NSTEMI (non-ST elevated myocardial infarction) (HC); CAD, multiple vessel; Type 2 diabetes mellitus with complication (HC); Essential hypertension Discharge Disposition: [facility] 09/17/2023 7:43 PM CDT - 09/18/2023 1:46 AM CDT Emergency [facility] [address] [place] [address] Pritesh Boyer MD NSTEMI (non-ST elevated myocardial infarction) (HC) (Primary Dx) Discharge Disposition: Health Care Facility Not On List 09/17/2023 Telephone [facility] [address] [place] [address] Guzman Lovelace MD 09/17/2023 Travel 09/05/2023 Lab Requisition [facility] [phone] Unknown, Doctor from Last 3 Months Family [...] Sign Reading Time Taken Comments Blood Pressure 118/72 11/28/2023 7:45 AM CDT Pulse 68 11/28/2023 7:45 AM CDT Temperature 36.1 ??C (96.9 ??F) 11/28/2023 7:45 AM CD T Respiratory Rate 16 11/28/2023 7:45 AM CDT Oxygen Saturation 98% 11/28/2023 7:45 AM CDT Inhaled Oxygen Concentration - - Weight 127 kg (280 lb) 11/28/2023 7:45 AM CDT Height 180.3 cm (5' 11) 10/28/2023 7:31 AM CDT Body Mass Index 39.05 10/28/2023 7:31 AM CDT Plan of Treatment Upcoming Encounters Date Type Department Care Team (Late st Contact Info) Description 12/07/2023 7:00 AM CDT Appointment [facility] [address] [place] [address] 12/08/2023 7:00 AM CDT Appointment [facility] [address] [place] [address] 12/12/2023 7:00 AM CDT Appointment [facility] [address] [place] [address] 12/13/2023 8:00 AM CDT Appointment [facility] [address] [place] [address] 12/13/2023 8:15 AM CDT Appointment [facility] [address] [place] [address] 12/13/2023 1:30 PM CDT Office Visit [facility] [address] [place] [address] Kamran Li MD [address] [place] [address] 12/14/2023 7:00 AM CDT Appointment [facility] [address] [place] [address] 12/15/2023 7:00 AM CDT Appointment [facility] [address] [place] [address] 12/19/2023 9:30 AM CDT Orders Only [facility] [address] [place] [address] 12/21/2023 7:00 AM CDT Appointment [facility] [address] [place] [address] 12/22/2023 7:00 AM CDT Appointment [facility] [address] [place] [address] 12/26/2023 7:00 AM CDT Appointment [facility] [address] [place] [address] 12/28/2023 7:00 AM CDT Appointment [facility] [address] [place] [address] 12/29/2023 7:00 AM CDT Appointment [facility] [address] [place] [address] 01/02/2024 7:00 AM CDT Appointment [facility] [address] [place] [address] 01/04/2024 7:00 AM CDT Appointment [facility] [address] [place] [address] 01/11/2024 7:00 AM CDT Appointment [facility] [address] [place] [address] 01/12/2024 7:00 AM CDT Appointment [facility] [address] [place] [address] 01/12/2024 2:00 PM CDT Office Visit [facility] at [address] [address] Chriss Whittington MD [address] [address] 01/16/2024 7:00 AM CDT Appointment [facility] [address] [place] [address] 01/18/2024 7:00 AM CDT Appointment [facility] [address] [place] [address] 01/19/2024 7:00 AM CDT Appointment [facility] [address] [place] [address] 01/23/2024 7:00 AM CDT Appointment [facility] [address] [place] [address] 01/25/2024 7:00 AM CDT Appointment [facility] [address] [address] 01/26/2024 7:00 AM CDT Appointment [facility] [address] [place] [address] 01/30/2024 7:00 AM CDT Appointment [facility] [address] [place] [address] 02/01/2024 7:00 AM CDT Appointment [facility] [address] [place] [address] 02/02/2024 7:00 AM CDT Appointment [facility] [address] [place] [address] 02/06/2024 7:00 AM CORRECTIVE AND MANUAL ARTS THERAPIST Appointment [facility] [address] [place] [address] 02/08/2024 7:00 AM CORRECTIVE AND MANUAL ARTS THERAPIST Appointment [facility] [address] [place] [address] 02/09/2024 7:00 AM CORRECTIVE AND MANUAL ARTS THERAPIST Appointment [facility] [address] [place] [address] 02/13/2024 7:00 AM CORRECTIVE AND MANUAL ARTS THERAPIST Appointment [facility] [address] [place] [address] 02/15/2024 7:00 AM CORRECTIVE AND MANUAL ARTS THERAPIST Appointment [facility] [address] [place] [address] 02/16/2024 7:00 AM CORRECTIVE AND MANUAL ARTS THERAPIST Appointment [facility] [address] [place] [address] 02/20/2024 7:00 AM CORRECTIVE AND MANUAL ARTS THERAPIST Appointment [facility] [address] [place] [address] 02/27/2024 Procedure Only [address] [place] [address] Health Maintenance Due Date Last Done Comments Pneumococcal series for age 6-64 (1 of 2 - PCV) 1967 Tdap 02/08/1972 Depression screening for age 12+ 1973 HIV for age 15-65 02/08/1976 Hepatitis C screening for age 18-79 1979 Tetanus booster 1981 Colonoscopy through age 75 2006 Zoster (shingles) series for age 50+ (1 of 2) 2011 COVID-19 vaccine series ( - season) 2022 02/06/2021, 07/10/2020, 06/12/2020 Influenza for age 50-64 12/04/2023 BMI (ht and wt on same day) for age 18+ 10/19/2024 10/20/2023 Lipids for age 45-75 09/17/2028 09/18/2023 Procedures Procedure Name Priority Date/Time Associated Diagnosis Comments SCAN-CARDIAC REHABILITATION 12/01/2023 7:01 AM CDT GLUCOSE METER Routine 11/30/2023 7:54 AM CDT GLUCOSE METER Routine 11/30/2023 7:07 AM CDT SCAN-CARDIAC REHABILITATION 11/30/2023 7:04 AM CDT GLUCOSE METER Routine 11/29/2023 11:13 AM CDT GLUCOSE METER Routine 11/29/2023 10:52 AM CDT SCAN-CARDIAC REHABILITATION 11/29/2023 10:47 AM CDT GLUCOSE METER Timed 10/28/2023 10:59 AM CDT [...] THROMBIN TIME STAT 09/23/2023 8:05 PM CDT [facility] CATH INFUSION PR70 Routine 09/23/19 4:34 PM CDT [facility] KIT PR5 Routine 09/23/2023 4:34 PM CDT [facility] AN INTRODUCER 2 LUMEN PERFORMABLE Routine 09/23/2023 4:34 PM CDT [facility] DRSG PR1 Routine 09/23/2023 4:34 PM CDT [facility] DRSG PR5 Routine 09/23/2023 4:34 PM [...] Case Notes AVERAGE T/FPERFUSION-Confirmed w/Shayna for 1315 #[id number] EK 6/20OR STAFF BYPASS CORONARY ARTERY 01 2023 1:33 PM CDT Case Notes AVERAGE T/FPERFUSION-Confirmed w/Shayna for 1315 #[id number] EK 6/20OR STAFF GLUCOSE METER Timed 09/23/2023 [...] CDT from Last 3 Months Results * SCAN-CARDIAC REHABILITATION (12/01/2023 7:01 AM CDT) Only the most recent of3 resultswithin the time period is included. Scanner OTHER * (ABNORMAL) GLUCOSE METER (11/30/2023 7:54 AM CDT) Only the most recent of57 resultswithin the time period is included. GLUCOSE METER 151(H) 65 - 100 mg/dL 11/30/2023 7:59 AM CDT [facility] Blood BLOOD SPECIMEN / Unknown 11/30/2023 7:54 AM CDT 11/30/2023 7:59 AM CDT Doctor Unknown CHEMISTRY [facility] [address] [address] * SCAN-CARDIAC STRIP (10/28/2023 10:55 AM CDT) [...] NOW QTc 472 ms BEYOND NOW P Whitt 56 degrees BEYOND NOW R Whitt 45 degrees BEYOND NOW T Whitt 70 degrees BEYOND NOW 10/28/2023 10:3 3 AM CDT 10/28/2023 11:07 AM CDT Kamran Li MD EKG ORD BEYOND NOW [place], [place] * (ABNORMAL) ACTIVATED CLOTTING TIME [id number] ACT (10/28/2023 8:56 AM CDT) ACTIVATED CLOTTING TIME, POCT 304(H) 74 - 125 sec 10/28/2023 12:18 PM CDT [facility] Blood BLOOD SPECIMEN / Unknown 10/28/2023 8:56 AM CDT 10/28/2023 12:18 PM CDT Kamran Li MD HEMATOLOGY [facility] SENDOUT INTERNAL ZIP [phone] [place] [id number] * CVL PCI ONLY (10/28/2023 8:19 AM CDT) Anatomical Region Laterality Modality X-Ray Angiograph y 10/28/2023 8:19 AM CDT Narrative Transcriptions Kamran Li MD - 10/28/2023 9:33 AM CDT [facility] Cardiac Catheterization Report Name: JOSE GUADALUPE RIDLEY Event Date: 10/28/2023 08:19 [employer] ID #: [id number] JAKE #: [id number] Diagnostic Physician: KAMRAN LI [facility] Interventional Physician: KAMRAN LI [facility] Referring Physician: GREGORIO OLIVIA Date: 1960 [...] inhibit spasm of the radialgraft. Consent & [place] Protocol The risks, benefits, and alternatives of the procedure were discussed withthe patient and written informed consent was obtained. [place] protocol was followed. TIME OUT conducted just prior tostarting procedure confirmed patient identity, site/side, procedure,patient position, and availability of correct equipment and implants (ifapplicable). Staff Name Title KAMRAN LI Infection Control Coordinator Rafaela Bailey RN Nurse Hung Oviedo RTR Machelle Adler RTR Monitor Jimmie Merino CVT [place] Administrator Procedures ? US Guided Access ? Coronary [...] 1 Distal RCA Drug Eluting Stent Rosalio Newaygo 3.50 x 22mm Procedure Details Estimated Blood Loss: < 30 ml Specimen Collected: None Level of Sedation Achieved: Moderate Procedure Start: 08:19 Procedure End: : Procedure Time: 63 min Fluoroscopy Time: 16.2 min Cumulative Air Kerma: 1697 mGy DAP: 32501 mGy/cm2 Contrast: Omnipaque, 230 ml Physiologic Data [...] IV Kamran Li Kendra RN 08:39 Heparin 37910 units IV Kamran Li Kendra RN 08:44 Nitroglycerin 300 mcg IC Kamran Li Thomas A 08:45 0.9% NaCL 500 ml Unknown Kamran Li Kendra RN 08:51 Versed (midazolam) 0.5 mg IV Kamran iL Kendra RN 09:00 Fentanyl 25 mcg IV [...] healthcare professional providing the sedation ends personal [id number] time with the patient. The medications listed above were verbally ordered by me and read back tome as documented above. Refer to the procedure log report for additional case details. electronically signed on 10/28/2023 9:33:27 AM with status of Final Kamran Li MD [address], [place] [address] [place] [address] (p) [phone](f) Alejandra FAJARDO CV IMAGING * (ABNORMAL) CBC with Platelets no Differential (10/28/2023 6:35 AM CDT) Only the most recent of5 resultswithin the time period is included. WHITE BLOOD COUNT 5.9 4.5 - 11.0 thou/cu mm 10/28/2023 6:52 AM [facility] RED BLOOD COUNT 4.27(L) 4.30 - 5.90 mil/cu mm 10/28/2023 6:52 AM T [facility] HEMOGLOBIN 12.6(L) 13.5 - 17.5 g/dL 10/28/2023 6:52 AM [facility] HEMATOCRIT 38.9 37.0 - 53.0 % 10/28/2023 6:52 AM [facility] MCV 91 80 - 100 fL 10/28/2023 6:52 AM [facility] MCH 29.5 26.0 - 34.0 pg 10/28/2023 6:52 AM [facility] MCHC 32.4 32.0 - 36.0 g/dL 10/28/2023 6:52 AM CDT [facility] RDW 14.6 11.5 - 15.5 % 10/28/2023 6:52 AM T [facility] PLATELET COUNT 193 140 - 440 thou/cu mm 10/28/2023 6:52 AM T [facility] MPV 9.6 6.5 - 11.0 fL 10/28/2023 6:52 AM T [facility] NRBC 0.0 % 10/28/2023 6:52 AM T [facility] ABS NRBC 0.0 thou /cu mm 10/28/2023 6:52 AM T [facility] Blood BLOOD SPECIMEN / Unknown Venipuncture / Unknown 10/28/2023 6:35 AM CDT 10/28/2023 6:45 AM CDT Gregorio Elizabeth MD HEMATOLOGY [facility] SENDOUT INTERNAL ZIP [phone] [place] [address] * (ABNORMAL) Basic Metabolic Panel (10/28/2023 6:35 AM CDT) Only the most recent of14 resultswithin the time period is included. SODIUM 139 136 - 145 mmol/L 10/28/2023 7:19 AM [facility] POTASSIUM 3.8 3.5 - 5.1 mmol/L 10/28/2023 7:19 AM [facility] CHLORIDE 102 98 - 107 mmol/L 10/28/2023 7:19 AM [facility] CO2,TOTAL 25 22 - 29 mmol/L 10/28/2023 7:19 AM [facility] ANION GAP 12 5 - 18 10/28/2023 7:19 AM [facility] GLUCOSE 158(H) 70 - 99 mg/dL 10/28/2023 7:19 AM [facility] CALCIUM 9.4 8.8 - 10.2 mg/dL 10/28/2023 7:19 AM [facility] BUN 19 8 - 23 mg/dL 10/28/2023 7:19 AM [facility] CREATININE 0.97 0.70 - 1.20 mg/dL 10/28/2023 7:19 AM CDT [facility] BUN/CREAT RATIO 20 10 - 20 7:19 AM CDT [facility] eGFR 88(L) >90 mL/min/1.7 3m2 10/28/2023 7:19 AM CDT [facility] Comment:As of 2021, eG FR is [...] [place]/ZIP Co de Phone Number [facility] SENDOUT INTERNAL ZIP [phone] [place] [phone] * URINALYSIS MICROSCOPIC (10/26/2023 11:46 PM CDT) RBC None Seen 0-2, None Seen /HPF 10/26/2023 11:55 PM CDT [facility] WBC 0-2 0-2, 3-5, None Seen /HPF 10/26/2023 11:55 PM CDT [facility] BACTERIA Rare None Seen, Rare, Few Bacteria/H PF 10/26/2023 11:55 PM CDT [facility] EPITHELIAL CELLS Few None Seen, Few Epi/HPF 10/26/2023 11:55 PM CDT [facility] Urine URINE SPECIMEN / Unknown Non-Blood / Unknown 10/26/2023 11:46 PM CDT 10/26/2023 11:49 PM CDT Misha Styles III, MD URINE [facility] [address] [address] * (ABNORMAL) Urinalysis w Reflex Microscopic if Positive (10/26/2023 11:46 PM CDT) COLOR Yellow Yellow Color 10/26/2023 11:52 PM T [facility] CLARITY Clear Clear Clarity 10/26/2023 11:52 PM [facility] SPECIFIC GRAVITY,URINE 1.020 1.010, 1.015, 1.020, 1.025 10/26/2023 11:52 PM T [facility] PH,URINE 6.0 6.0, 7.0, 8.0, 5.5, 6.5, 7.5, 8.5 10/26/2023 11:52 PM [facility] UROBILINOGEN, QUALITATIVE Normal Normal EU/dl 10/26/2023 11:52 PM [facility] PROTEIN, URINE Negative Negative mg/dL 10/26/2023 11:52 PM [facility] GLUCOSE, URINE >=1000(A) Negative mg/dL 10/26/2023 11:52 PM [facility] KETONES,URINE Negative Negative mg/dL 10/26/2023 11:52 PM [facility] BILIRUBIN,URI NE Negative Negative 10/26/2023 11:52 PM [facility] OCCULT BLOOD,URINE Negative Negative 10/26/2023 11:52 PM [facility] NITRITE Negative Negative 10/26/2023 11:52 PM [facility] LEUKOCYTE ESTERASE Negative Negative 10/26/2023 11:52 PM [facility] Urine URINE SPECIMEN / Unknown Non-Blood / Unknown 10/26/2023 11:46 PM CDT 10/26/2023 11:49 PM CDT Misha Styles III, MD URINE [facility] [address] [address] * (ABNORMAL) CBC WITH AUTO DIFFERENTIAL (10/26/2023 11:29 PM CDT) Only the most recent of3 resultswithin the time period is included. WHITE BLOOD COUNT 6.5 4.5 - 11.0 thou/cu mm 10/26/2023 11:40 PM [facility] RED BLOOD COUNT 4.13(L) 4.30 - 5.90 mil/cu mm 10/26/2023 11:40 PM [facility] HEMOGLOBIN 12.3(L) 13.5 - 17.5 g/dL 10/26/2023 11:40 PM [facility] HEMATOCRIT 39.2 37.0 - 53.0 % 10/26/2023 11:40 PM [facility] MCV 95 80 - 100 fL 10/26/2023 11:40 PM [facility] MCH 29.8 26.0 - 34.0 pg 10/26/2023 11:40 PM [facility] MCHC 31.4(L) 32.0 - 36.0 g/dL 10/26/2023 11:40 PM [facility] RDW 14.7 11.5 - 15.5 % 10/26/2023 11:40 PM [facility] PLATELET COUNT 179 140 - 440 thou/cu mm 10/26/2023 11:40 PM [facility] MPV 9.4 6.5 - 11.0 fL 10/26/2023 11:40 PM [facility] % NEUT 64.9 % 10/26/2023 11:40 PM [facility] [facility] % LYMPH 14.5 % 10/26/2023 11:40 PM [facility] % MONO 8.6 % 10/26/2023 11:40 PM [facility] % EOS 11.7 % 10/26/2023 11:40 PM [facility] % BASO 0.3 % 10/26/2023 11:40 PM [facility] ABSOLUTE NEUTROPHILS 4.2 1.7 - 7.0 thou/cu mm 10/26/2023 11:40 PM [facility] ABSOLUTE LYMPHOCYTES 0.9 0.9 - 2.9 thou/cu mm 10/26/2023 11:40 PM [facility] ABSOLUTE MONOCYTES 0.6 <0.9 thou/cu mm 10/26/2023 11:40 PM CDT [facility] ABSOLUTE EOSINOPHILS 0.8(H) <0.5 thou/cu mm 10/26/2023 11:40 PM CDT [facility] ABSOLUTE BASOPHILS 0.0 <0.3 thou/cu mm 10/26/2023 11:40 PM CDT [facility] Blood BLOOD SPECIMEN / Unknown Venipuncture / Unknown 10/26/2023 11:29 PM CDT 10/26/2023 11:31 PM CDT Misha Styles III, MD HEMATOLO GY [facility] [address] [phone] * SCAN-CARDIAC STRIP (09/28/2023 8:00 AM CDT) Scanner OTHER * PLATELET COUNT (09/28/2023 4:53 AM CDT) Only the most recent of10 resultswithin the time period is included. PLATELET COUNT 239 140 - 440 thou/cu mm 09/28/2023 5:32 AM CDT [facility] MPV 9.2 6.5 - 11.0 fL 09/28/2023 5:32 AM CDT [facility] Blood BLOOD SPECIMEN / Unknown Venipuncture / Unknown 09/28/2023 4:53 AM CDT 09/28/2023 5:21 AM CDT Sandhya FAJARDO HEMATOLOGY [facility] SENDOUT INTERNAL ZIP [phone] [place] [address] * WHITE BLOOD COUNT (09/28/2023 4:53 AM CDT) Only the most recent of4 resultswithin the time period is included. WHITE BLOOD COUNT 7.3 4.5 - 11.0 thou/cu mm 09/28/2023 5:32 AM CDT [facility] NRBC 0.0 % 09/28/2023 5:32 AM CDT [facility] ABS NRBC 0.0 thou /cu mm 09/28/2023 5:32 AM CDT [facility] Blood BLOOD SPECIMEN / Unknown Venipuncture / Unknown 09/28/2023 4:53 AM CDT 09/28/2023 5:21 AM CDT Sandhya Aragon Kirstie FAJARDO HEMATOLOGY Performing Organization Address [facility] de Phone Number [facility] SENDOUT INTERNAL ZIP [address] [place] [address] * (ABNORMAL) HEMOGLOBIN (09/28/2023 4:53 AM CDT) Only the most recent of10 resultswithin the time period is included. HEMOGLOBIN 11.6(L) 13.5 - 17.5 g/dL 09/28/2023 5:32 AM CDT [facility] MCV 91 80 - 100 fL 09/28/2023 5:32 AM CDT [facility] Blood BLOOD SPECIMEN / Unknown Venipuncture / Unknown 09/28/2023 4:53 AM CDT 09/28/2023 5:21 AM CDT Sandhya Aragon Kirstie FAJARDO HEMATOLOGY Performing Organization Address [facility] de Phone Number [facility] SENDOUT INTERNAL ZIP [phone] [place] [address] * SCAN-CARDIAC STRIP (09/27/2023 7:43 PM CDT) Scanner OTHER * ECHO TTE LIMITED W CONTRAST W COLOR W DOPPLER (09/27/2023 12:26 PM CDT) EJECTION FRACTION 55% PROSOLV Anatomical Region Laterality Modality Ultrasound 09/27/2023 11:3 8 AM CDT Narrative 09/27/2023 12:[address] [address] Main: [email or web address] ? 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 [...] 4.93 mmHg Rusty Major MD (Electronically Signed) [facility] Accredited Site Final Date: 27 September 2023 12:41 ICD-10 Codes: Ramandeep Chong IMAGING CENTER MANAGER ECHO ORD * POTASSIUM (09/27/2023 12:12 PM CDT) Only the most recent of4 resultswithin the time period is included. POTASSIUM 4.6 3.5 - 5.1 mmol/L 09/27/2023 12:45 PM CDT [facility] Blood BLOOD SPECIMEN / Unknown Butterfly / Unknown 09/27/2023 12:12 PM CDT 09/27/2023 12:28 PM CDT Gregorio Elizabeth MD CHEMISTRY [facility] SENDOUT INTERNAL ZIP [address] [address] [place] [address] * SCAN-CARDIAC STRIP (09/27/2023 8:00 AM CDT) [...] Juanito Romeo MD ? 09/26/2023 ??5:44 PM [facility] Electrophysiology Laboratory Leadless Pacemaker (AV Micra) [...] fluoroscopic image from device in [place] and [place] projection. The patient tolerated the procedure well [...] procedure. Attending Signature: Juanito Romeo M.D. Cardiac Catering And Events Manager [facility] Manan Steele NP IT ANALYST ORD * EP PPM (09/26/2023 4:54 PM CDT) Anatomical Region Laterality Modality Other 09/26/2023 4:54 PM CDT Manan Steele NP CV IMAGING * SCAN-CARDIAC STRIP (09/26/2023 8:36 AM CDT) Scanner OTHER * (ABNORMAL) Protime-INR (09/26/2023 5:26 AM CDT) Only the most recent of7 resultswithin the time period is included. INR 1.2 <1.3 09/26/2023 5:38 AM CDT [facility] PROTIME 13.3(H) 10.3 - 12.3 sec 09/26/2023 5:38 AM CDT [facility] Blood BLOOD SPECIMEN / Unknown Venipuncture / Unknown 09/26/2023 5:26 AM CDT 09/26/2023 5:30 AM CDT Narrative [facility] - 09/26/2023 5:38 AM CDT ?Therapeutic [...] Gregorio Elizabeth MD HEMATOLOGY Performing Organization Address [facility]/ZIP Co de Phone Number [facility] SENDOUT INTERNAL [facility] [phone] [place] [address] * SCAN-PACER (09/26/2023 12:00 AM CDT) Narrative 09/26/2023 12:00 AM CDT Ordered by an unspecified provider. Other Clinical Staff OTHER * SCAN-CARDIAC STRIP (09/25/2023 8:00 AM CDT) Scanner OTHER * MAGNESIUM (09/25/2023 5:07 AM CDT) Only the most recent of8 resultswithin the time period is included. MAGNESIUM 2.1 1.6 - 2.4 mg/dL 09/25/2023 5:34 AM CDT [facility] Blood BLOOD SPECIMEN / Unknown Non-Lab Venipuncture / Unknown 09/25/2023 5:07 AM CDT 09/25/2023 5:15 AM CDT Gregorio Elizabeth MD CHEMISTRY Performing Organization Address City/[facility]/ZIP Co de Phone Number [facility] SENDOUT INTERNAL [facility] [address] [address] [place] [address] * SCAN-CARDIAC STRIP (09/24/2023 11:32 PM CDT) [...] EXAM: XR CHEST 1 VIEW PORTABLE LOCATION: [facility] MEDICAL IMAGING DATE: 09/24/2023 [...] EXAM: XR CHEST 1 VIEW PORTABLE LOCATION: [facility] MEDICAL IMAGING DATE: 09/24/2023 [...] - 1.27 mmol/L 09/24/2023 4:35 AM CDT [facility] Blood BLOOD SPECIMEN / Unknown Non-Lab Venipuncture / Unknown 09/24/2023 4:20 AM CDT 09/24/2023 4:32 AM CDT Gregorio Elizabeth MD CHEMISTRY Performing Organization Address [facility]/ZIP Co de Phone Number [facility] SENDOUT INTERNAL ZIP [phone] [place] [address] * (ABNORMAL) Arterial Blood Gas (09/24/2023 12:16 AM CDT) PH, ARTERIAL 7.33(L) 7.35 - 7.45 09/24/2023 12:25 AM CDT [facility] PCO2, ARTERIAL 52(H) 35 - 48 mmHg 09/24/2023 12:25 AM T [facility] PO2, ARTERIAL 164(H) 83 - 108 mmHg 09/24/2023 12:25 AM T [facility] HCO3, ARTERIAL 27 21 - 28 mmol/L 09/24/2023 12:25 AM T [facility] BASE EXCESS, ARTERIAL 0.6 -2.0 - 3.0 09/24/2023 12:25 AM T [facility] O2 SATURATION, ARTERIAL 100(H) 94 - 98 % 09/24/2023 12:25 AM T [facility] INSPIRED O2 95 09/24/2023 12:25 AM T [facility] Comment:Unit of Measure: Lit ers (L) if <=20; Percent (%) if >20 PATIENT TEMPERATURE 36.9 Degrees C 09/24/2023 12:25 AM T [facility] Blood ARTERIAL BLOOD SPECIMEN / Unknown Arterial / Unknown 09/24/2023 12:16 AM CDT 09/24/2023 12:21 AM CDT Gregorio Elizabeth MD CHEMISTRY [facility] SENDOUT INTERNAL ZIP [phone] [place] [address] * SCAN-CARDIAC STRIP (09/24/2023 12:00 AM CDT) Scanner OTHER * Thrombin Time - Immediate Postop (09/23/2023 9:45 PM CDT) Only the most recent of2 resultswithin the time period is included. THROMBIN TIME 15 <16 sec 09/23/2023 10:37 PM CDT [facility] Blood BLOOD SPECIMEN / Unknown Non-Lab Venipuncture / Unknown 09/23/2023 9:45 PM CDT 09/23/2023 9:55 PM CDT Gregorio Elizabeth MD HEMATOLOGY Performing Organization Address City/[facility]/ZIP Co de Phone Number [facility] SENDOUT INTERNAL ZIP [phone] [place] [address] * (ABNORMAL) APTT - Immediate Postop (09/23/2023 9:45 PM CDT) Only the most recent of15 resultswithin the time period is included. APTT 23(L) 28 - 36 sec 09/23/2023 10:37 PM CDT [facility] Blood BLOOD SPECIMEN / Unknown Non-Lab Venipuncture / Unknown 09/23/2023 9:45 PM CDT 09/23/2023 9:55 PM CDT Narrative [facility] - 09/23/2023 10:37 PM CDT Therapeutic Range: 57-87 seconds Gregorio Elizabeth MD HEMATOLOGY Performing Organization Address City/[facility]/ZIP Co de Phone Number [facility] SENDOUT INTERNAL ZIP [address] [place] [address] * (ABNORMAL) Fibrinogen, Quantitative - Immediate Postop (09/23/2023 9:45 PM CDT) Only the most recent of2 resultswithin the time period is included. FIBRINOGEN,MOHIT NTITATIVE 453(H) 193 - 401 mg/dL 09/23/2023 10:37 PM CDT [facility] Blood BLOOD SPECIMEN / Unknown Non-Lab Venipuncture / Unknown 09/23/2023 9:45 PM CDT 09/23/2023 9:55 PM CDT Gregorio Elizabeth MD HEMATOLOGY [facility] SENDOUT INTERNAL ZIP [address] [address] [place] [address] * (ABNORMAL) Cardiac Thromboelastography (09/23/2023 8:05 PM CDT) Only the most recent of2 resultswithin the time period is included. DESTINI REASON Diffuse Cardiac Bleeding 09/23/2023 10:17 PM CDT [facility] INTEM CT 212(H) 122 - 208 s 09/23/2023 10:17 PM CDT [facility] INTEM CFT 71 45 - 110 s 09/23/2023 10:17 PM CDT [facility] INTEM ALPHA 75 70 - 81 ?? 09/23/2023 10:17 PM CDT [facility] INTEM A10 57 46 - 67 mm 09/23/2023 10:17 PM CDT [facility] INTEM A20 63 51 - 72 mm 09/23/2023 10:17 PM CDT [facility] INTEM MCF 64 51 - 72 mm 09/23/2023 10:17 PM CDT [facility] INTEM ML 7 % 09/23/2023 10:17 PM CDT [facility] INTEM LI30 99 % 09/23/2023 10:17 PM CDT [facility] EXTEM CT 108(H) 43 - 82 s 09/23/2023 10:17 PM CDT [facility] EXTEM CFT 81 48 - 127 s 09/23/2023 10:17 PM CDT [facility] EXTEM ALPHA 74 65 - 80 ?? 09/23/2023 10:17 PM CDT [facility] EXTEM A10 60 46 - 67 mm 09/23/2023 10:17 PM CDT [facility] EXTEM A20 66 50 - 70 mm 09/23/2023 10:17 PM CDT [facility] EXTEM MCF 66 52 - 70 mm 09/23/2023 10:17 PM CDT [facility] EXTEM ML 7 % 09/23/2023 10:17 PM CDT [facility] EXTEM LI30 100 % 09/23/2023 10:17 PM CDT [facility] FIBTEM CT 116 s 09/23/2023 10:17 PM CDT [facility] FIBTEM CFT 593 s 09/23/2023 10:17 PM CDT [facility] FIBTEM ALPHA 67 ?? 09/23/2023 10:17 PM CDT [facility] FIBTEM A10 20 7 - 24 mm 09/23/2023 10:17 PM CDT [facility] FIBTEM A20 22 7 - 24 mm 09/23/2023 10:17 PM CDT [facility] FIBTEM MCF 23 7 - 24 mm 09/23/2023 10:17 PM CDT [facility] FIBTEM ML 0 % 09/23/2023 10:17 PM CDT [facility] FIBTEM LI30 100 % 09/23/2023 10:17 PM CDT [facility] HEPTEM CT 248(H) 122 - 208 s 09/23/2023 10:17 PM CDT [facility] HEPTEM CFT 83 45 - 110 s 09/23/2023 10:17 PM CDT [facility] HEPTEM ALPHA 73 70 - 81 ?? 09/23/2023 10:17 PM CDT [facility] HEPTEM A10 51 mm 09/23/2023 10:17 PM CDT [facility] HEPTEM A20 53 51 - 72 mm 09/23/2023 10:17 PM CDT [facility] HEPTEM MCF 54 51 - 72 mm 09/23/2023 10:17 PM CDT [facility] HEPTEM ML 10 % 09/23/2023 10:17 PM CDT [facility] Blood BLOOD SPECIMEN / Unknown Non-Lab Venipuncture / Unknown 09/23/2023 8:05 PM CDT 09/23/2023 8:13 PM CDT Milly HOUSE [facility] SENDOUT INTERNAL ZIP [phone] [place] [address] * CVC TRIPLE LUMEN, HCHG STOPCOCK PR5, [...] ??Comment: Supplemental O2: supplemental oxygen. ??Comment:. Vessel Emergency Room Registered Nurse Additional supplies used to locate vessel: no [...] . Video documentation of the exam on [employer] PRECPB EXAM The ZACHARY probe was [...] exam unchanged from pre-CPB. Images saved to cafeteria server. Teeth and oropharynx unchanged from pre-op. Probe removed intact without signs of damage. This exam supervised by Marylou De Anda MD Anesthesiologist ?? Marylou De Anda MD ANESTHESIA PX NOTE ORDERABLES * HCHG TUBE PR1, HCHG INSTRUMENT DISP PR10, HCHG STYLET PR1, HCHG MOUTHPIECE PR1 (09/23/2023 2:41 PM CDT) Narrative Valarie Saini CRNA - 09/23/2023 2:41 PM CDT Valarie Saini VERO [place] ? 09/23/2023 ??2:41 PM Procedure: ETT Patient [...] >90 mL/min/1.7 3m2 09/22/2023 3:42 PM CDT [facility] Comment:As of 2021, eG FR is calculated by the CKD-EPI creatinine equation without race adjustment. ??eGFR can be influenced by muscle mass, exercise, and diet. ??The reported eGFR is an estimation only and is only applicable if the renal function is stable. CREATININE 1.13 0.70 - 1.20 mg/dL 09/22/2023 3:42 PM CDT [facility] Blood BLOOD SPECIMEN / Unknown Butterfly / Unknown 09/22/2023 3:12 PM CDT 09/22/2023 3:16 PM CDT Ramandeep Chong BOWEN CHEMISTRY [facility] SENDOUT INTERNAL ZIP [address] [place] [address] * RED BLOOD CELLS EA UNIT (09/22/2023 9:35 AM CDT) Only the most recent of2 resultswithin the time period is included. CROSSMATCH Compatible Compatible [facility] BLOOD BANK PRODUCT BLOOD TYPE O Rh Negative [facility] BLOOD BANK PRODUCT ID NUMBER [id number] [facility] BLOOD BANK PRODUCT STATUS /Relea sed [facility] BLOOD BANK PRODUCT DESCRIPTION RBC -1 LR [facility] BLOOD BANK PRODUCT CODE [id number] [facility] BLOOD BANK Ramandeep Chong BOWEN BLOOD BANK Performing Organization Address City/[facility]/ZIP Co de Phone Number [facility] BLOOD BANK [address] [place] [phone] * EXTRA TUBE LAVENDER (09/22/2023 9:34 AM CDT) Blood BLOOD SPECIMEN / Unknown Extra Tube / Unknown 09/22/2023 9:34 AM CDT 09/22/2023 10:58 AM CDT Doctor Unknown LABORATORY [facility] SENDOUT INTERNAL ZIP [address] [place] [address] * RBC W TYPE AND SCREEN (09/22/2023 9:34 AM CDT) ABORH O Rh Negative 09/22/2023 11:35 AM CDT [facility] BLOOD BANK ANTIBODY SCREEN Negative Negative 09/22/2023 11:35 AM CDT [facility] BLOOD BANK SPECIMEN EXPIRATION DATE/TIME 09/25/23 23:59 09/22/2023 11:35 AM CDT [facility] BLOOD BANK Blood BLOOD SPECIMEN / Unknown Venipuncture / Unknown 09/22/2023 9:34 AM CDT 09/22/2023 10:49 AM CDT Ramandeep Chong NP BLOOD BANK Performing Organization Address City/[facility]/ZIP Co de Phone Number [facility] BLOOD BANK [address] [place] [address] * SCAN-CARDIAC STRIP (09/22/2023 8:13 AM CDT) Scanner OTHER * HEMATOCRIT (09/22/2023 4:55 AM CDT) Only the most recent of4 resultswithin the time period is included. HEMATOCRIT 45.1 37.0 - 53.0 % 09/22/2023 5:21 AM CDT [facility] Blood BLOOD SPECIMEN / Unknown Venipuncture / Unknown 09/22/2023 4:55 AM CDT 09/22/2023 5:18 AM CDT Narrative [facility] - 09/22/2023 5:21 AM CDT Every morning while on IV heparin. Every morning while on IV heparin. Necessary every morning while on IV heparin. Wendy King DO HEMATOLOGY [facility] SENDOUT INTERNAL ZIP [address] [address] [place] [address] * SCAN-CARDIAC STRIP (09/22/2023 1:22 AM CDT) [...] CDT 1. ?Cholelithiasis. 2. ?Please refer to weather observer's dictation for the cardiac CT report. Narrative 09/22/2023 3:42 PM CDT Results are automatically released to your [employer] account once available, in compliance with federal regulations. ??This means that you may see your results before your provider has had a chance to review them. ??Please allow 2-3 business days for your provider to comment on the results. CT ANGIOGRAM OF THE THORACIC AORTA, 09/20/2023 INDICATION: Pre-coronary artery bypass grafting. CONCLUSIONS: This is a dual read study - please review [facility] over-read below for incidental non cardiac [...] cc/sec, was performed on a ??Siemens SOMATOM Force CT scanner. The imaging protocol was individualized to minimize radiation exposure. The following ECG-gated acquisition protocol was used: High pitch prospective. ??Pulse range 300-300. Tube potential: 120 kV. Tube current: 5004 mAs. Total DLP: 1158 mGy*cm; mSv: 16.2; CTDI: 54.3. Image post processing was performed on a [employer] Workstation. Images were reconstructed at a slice [...] for incidental non-cardiac findings. Monique Finn MD [facility] AB/car For Patients: As a result of the Cures Act, medical imaging exams and procedure reports are released immediately into your electronic medical record. You may view this report before your referring provider. If you have questions, please contact your health care provider. EXAM: OVERREAD: DETAILED [place] [facility] EXTRACARDIAC OVERREAD OF CARDIAC CT LOCATION: [facility] MEDICAL IMAGING DATE: 09/20/2023 [...] EXAM: US ARTERIAL UPPER EXTREMITY LEFT LOCATION: [facility] MEDICAL IMAGING DATE: 09/20/2023 [...] EXAM: US ARTERIAL UPPER EXTREMITY LEFT LOCATION: [facility] MEDICAL IMAGING DATE: 09/20/2023 [...] and fifth digits duringradial artery compression. Ramandeep Pastoralyssia Chong NP US * US VEIN MAPPING [...] Li MD - 09/19/2023 5:59 PM CDT [facility] Cardiac Catheterization Report Name: JOSE GUADALUPE RIDLEY Event Date: 09/19/2023 17:17 Excellian ID #: [id number] JAKE #: [id number] Diagnostic Physician: KAMRAN LI [facility] Primary Maintenance Painter Apprentice: RACHID MÉNDEZ Referring Physician: Date: 1960 Gender: [...] < 70 ;Triglycerides < 100 Consent & [place] Protocol The risks, benefits, and alternatives of the procedure were discussed withthe patient and written informed consent was obtained. [place] protocol was followed. TIME OUT conducted just prior tostarting procedure confirmed patient identity, site/side, procedure,patient position, and availability of correct equipment and implants (ifapplicable). Staff Name Title KAMRAN LI Diagnostic Maintenance Painter Apprentice Rafaela Bailey RN Nurse Dang Ghosh RN [...] min Cumulative Air Kerma: 493 mGy DAP: 22095 mGy/cm2 Contrast: Omnipaque, 50 ml Visipaque 320, [...] healthcare professional providing the sedation ends personal [id number]-pv-[id number] time with the patient. The medications listed above were verbally ordered by me and read back tome as documented above. Refer to the procedure log report for additional case details. electronically signed on 09/19/2023 5:59:16 PM with status of Final Kamran Li MD [address], [place] [address] [place] [address] (p) [phone](f) Quentin Aiken MD CV IMAGING * ECHO TTE COMPLETE W CONTRAST (09/19/2023 10:48 AM CDT) EJECTION FRACTION 45-50% PROSOLV Anatomical Region Laterality Modality Ultrasound 09/19/2023 10:1 2 AM CDT Narrative 09/19/2023 11:44 AM CDT [address] [address] Main: [email or web address] CRM ? 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 BP: 141 / 82 Weight: 318 lbs BMI: 44.4 kg/m?? HR: 85 Location: Inpatient (Portable) Rhythm: Normal Sinus Rhythm Procedure Components: 2D imaging with contrast, Color Doppler, Spectral Doppler Indications: Chest pain chest pressure chest tightening Technical Quality: Fair Contrast: Definity Constrast Dose (ml): 0.3 [facility]#: [id number] Final Conclusion 1. Technically challenging echocardiogram. 2. [...] function. Calculated left ventricular ejection fraction (modified Olvrea technique) is 47%. 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 BP: 141 / 82 Weight: 318 lbs BMI: 44.4 kg/m?? HR: 85 Location: Inpatient (Portable) Rhythm: Normal Sinus Rhythm Procedure Components: 2D imaging with contrast, Color Doppler, SpectralDoppler Indications: Chest pain chest pressure chest tightening Technical Quality: Fair Contrast: Definity Constrast Dose (ml): 0.3 [facility]#: [id number] Final Conclusion 1. Technically challenging echocardiogram. 2. [...] ZScore: 0.00 Rusty Major MD (Electronically Signed) [facility] Accredited Site Final Date: 19 September [...] 6.5(H) <=6.4 % 09/18/2023 7:22 AM CDT [facility] Blood BLOOD SPECIMEN / Unknown Venipuncture / Unknown 09/18/2023 4:17 AM CDT 09/18/2023 4:27 AM CDT Narrative [facility] - 09/18/2023 7:22 AM CDT ? (<5.7%) ?Normal ? (5.7% to 6.4%) ? Indicates prediabetes ? (>=6.5%) ? Confirms diabetes Falsely low levels may be seen with: Recent Transfusion, Recent Significant Blood Loss, Hemolytic Diseases, or Falsely elevated levels may be seen with: Untreated Anemias, Splenectomy Wendy King DO CHEMISTRY [facility] SENDOUT [place]NAL ZIP [address] [address] [place] [address] * LIPID PANEL (09/18/2023 4:17 AM CDT) CHOLESTEROL,TOTAL 174 100 - 199 mg/dL 09/18/2023 4:54 AM CDT [facility] Comment: Cholesterol, Total Reference Ranges Desirable <200 mg/dL Borderline 200-239 mg/dL High >=240 mg/dL TRIGLYCERIDES 105 <150 mg/dL 09/18/2023 4:54 AM CDT [facility] HDL CHOLESTEROL 42 >40 mg/dL 4:54 AM CDT [facility] NON-HDL CHOLESTEROL 132 <145 mg/dl 09/18/2023 4:54 AM CDT [facility] CHOL/HDL RATIO 4.14 <4.50 09/18/2023 4:54 AM CDT [facility] LDL CHOLESTEROL 111 <=130 mg/dL 09/18/2023 4:54 AM CDT [facility] VLDL CHOLESTEROL 21 <=30 mg/dL 09/18/2023 4:54 AM CDT [facility] PROVIDER ORDERED STATUS RANDOM 09/18/2023 4:54 AM CDT [facility] Blood BLOOD SPECIMEN / Unknown Venipuncture / Unknown 09/18/2023 4:17 AM CDT 09/18/2023 4:27 AM CDT Wendy King DO CHEMISTRY [facility] SENDOUT INTERNAL ZIP [address] [place] [address] * SCAN-CARDIAC STRIP (09/18/2023 3:10 AM CDT) Scanner OTHER * SCAN-CARDIAC STRIP (09/18/2023 12:00 AM CDT) Narrative 09/18/2023 12:00 AM CDT Ordered by an unspecified provider. Other Clinical Staff OTHER * (ABNORMAL) TROPONIN T (HS) ONE TIME (09/17/2023 9:52 PM CDT) TROPONIN T HS 156(H) 6-15 ng/L ng/L 09/17/2023 10:13 PM CDT [facility] Blood BLOOD SPECIMEN / Unknown Venipuncture / Unknown 09/17/2023 9:52 PM CDT 09/17/2023 9:53 PM CDT Pritesh Boyer MD CHEMISTRY [facility] [address] [address] * (ABNORMAL) TROPONIN T (HS) ACUTE W/2HR REFLEX (09/17/2023 7:55 PM CDT) TROPONIN T HS 74(H) 6-15 ng/L ng/L 09/17/2023 8:29 PM [facility] Blood BLOOD SPECIMEN / Unknown IV Start / Unknown 09/17/2023 7:55 PM CDT 09/17/2023 7:56 PM CDT [facility] - 09/17/2023 8:29 PM CDT [...] department patient population. Pritesh Boyer MD CHEMISTRY [facility] [address] [address] * (ABNORMAL) COMP METABOLIC PANEL (09/17/2023 7:55 PM T) SODIUM 138 136 - 145 mmol/L 09/17/2023 8:29 PM [facility] POTASSIUM 4.5 3.5 - 5.1 mmol/L 09/17/2023 8:29 PM [facility] CHLORIDE 102 98 - 107 mmol/L 09/17/2023 8:29 PM [facility] CO2,TOTAL 27 22 - 29 mmol/L 09/17/2023 8:29 PM [facility] ANION GAP 9 5 - 18 09/17/2023 8:29 PM [facility] GLUCOSE 229(H) 70 - 99 mg/dL 09/17/2023 8:29 PM [facility] CALCIUM 9.2 8.8 - 10.2 mg/dL 09/17/2023 8:29 PM [facility] BUN 17 8 - 23 mg/dL 09/17/2023 8:29 PM [facility] CREATININE 0.93 0.70 - 1.20 mg/dL 09/17/2023 8:29 PM [facility] BUN/CREAT RATIO 18 10 - 20 8:29 PM [facility] eGFR >90 >90 mL/min/1.7 3m2 09/17/2023 8:29 PM [facility] Comment:As of 2021, eG FR is calculated by the CKD-EPI creatinine equation without race adjustment. ??eGFR can be influenced by muscle mass, exercise, and diet. ??The reported eGFR is an estimation only and is only applicable if the renal function is stable. ALBUMIN 3.9(L) 4.0 - 4.9 g/dL 09/17/2023 8:29 PM [facility] PROTEIN,TOTAL 7.2 6.0 - 8.0 g/dL 09/17/2023 8:29 PM [facility] BILIRUBIN,TOTAL 0.5 0.0 - 1.2 mg/dL 09/17/2023 8:29 PM [facility] ALK PHOSPHATASE 114 40 - 129 IU/L 09/17/2023 8:29 PM CDT [facility] ALT (SGPT) 30 10 - 50 IU/L 09/17/2023 8:29 PM CDT [facility] AST (SGOT) 37 10 - 50 IU/L 09/17/2023 8:29 PM CDT [facility] Blood BLOOD SPECIMEN / Unknown IV Start / Unknown 09/17/2023 7:55 PM CDT 09/17/2023 7:56 PM CDT Pritesh Boyer MD CHEMISTRY Performing Organization Address City/[facility]/ZIP Co de Phone Number [facility] [address] [address] * (ABNORMAL) REFERRAL SUSCEPTIBILITY (09/02/2023 8:26 AM CDT) CULTURE RESULT(A) 09/07/2023 10:49 AM CDT [facility] CULTURE Streptococcus dysgalactiae (Beta Strep group C or G) 09/07/2023 10:49 AM CDT [facility] Other [...] or G) CLARITHROMYCIN S Doctor Unknown MICROBIOLOGY [facility] [address] [place] [address], from Last 3 Months Advance Directives * [...] Code Status Discussion: Not Discussed Care Teams Supercharger Repair Supervisor Relationship Specialty Start Date End Date Munir Sahu MD [address] [place] [address] PCP - General Family Practice 09/17/23 [facility] [address] [place] [address] 09/28/23
--- OUTSIDE RECORDS SUMMARY | 2023-12-02 07:47 | XMS_ITS ---
Author Organization [facility] Address [address] [place] [address] Care Team Providers Care Edi Architect Name Role Phone Unavailable Unavailable Unavailable Surgery Details Not on file Complications Check Surgery Details section. Procedure Estimated Blood Loss Check Surgery Details section. Procedure Findings Check Surgery Details section. Procedure Specimens Taken Check Surgery Details section.
--- OUTSIDE RECORDS SUMMARY | 2023-12-02 07:48 | XMS_ITS | Encounter Summary ---
Author Organization [facility] Address [address] [place] [address] Care Team Providers Care Invoicing Specialist Name Role Phone Elsewhere, Pcp Primary Care Provider Unavailabl e Reason for Visit * Reason Comments Weakness - Generalized Hyperglycemia Encounter Details Date Type Department Care Team (Late st Contact Info) Description 10/26/2023 10:48 PM CDT - 10/26/2023 11:59 PM CDT Emergency [facility] [address] [place] [phone] Hyperglycemia (Primary Dx) Discharge Disposition: Home or [...] bandage 12 10/03/2017 FreeStyle João 14 Day [place] misc 02/17/2021 FreeStyle João 14 Day Sensor [...] Primary documented in this encounter Care Teams Invoicing Specialist Relationship Specialty Start Date End Date Elsewhere, Pcp PCP - General Family Medicine 06/15/17 documented as of this encounter
--- OUTSIDE RECORDS SUMMARY | 2023-12-02 07:48 | XMS_ITS | Encounter Summary ---
Author Organization [facility] Address [address] [place] [address] Care Team Providers Care Medicare Biller Name Role Phone Elsewhere, Pcp Primary Care Provider Unavailabl e Reason for Visit * Reason Comments Chest Pain Encounter Details Date Type Department Care Team (Late st Contact Info) Description 09/17/2023 7:59 PM CDT - 09/17/2023 11:59 PM CDT Emergency [facility] [address] [place] [phone] Non-ST Elevation Myocardial Infarction (HCC) (Primary Dx) [...] bandage 12 10/03/2017 FreeStyle João 14 Day [place] misc 02/17/2021 FreeStyle João 14 Day Sensor [...] Primary documented in this encounter Care Teams Medicare Biller Relationship Specialty Start Date End Date Elsewhere, Pcp PCP - General Family Medicine 06/15/17 documented as of this encounter
== END 2023-12-02 07:46 | disposition home or self-care (01) ==
LOC: WOUND 07:45
PROVIDERS: PCP Family Medicine; Visit Provider Nurse Practitioner Family
DX: I87.312 Chronic venous hypertension (idiopathic) with ulcer of left lower extremity (principal); I87.2 Venous insufficiency (chronic) (peripheral); E11.622 Type 2 diabetes mellitus with other skin ulcer; L97.322 Non-pressure chronic ulcer of left ankle with fat layer exposed; Z79.84 Long term (current) use of oral hypoglycemic drugs
CPT/HCPCS: 11042

== ENCOUNTER 2023-12-09 07:55 | Outpatient (CLI) | payer OTHER, SELFPAY ==
--- OUTSIDE RECORDS SUMMARY | 2023-12-09 07:57 | XMS_ITS | Data Portability ---
Author Organization [facility] Address [address] [facility] [address] [place] [address] Care Team Providers Care Batch And Furnace Manager Name Role Phone GORDY SOL Primary Care Provider [phone] Assessment Encounter Date Assessment Date Assessment LastModified by Organization Details LastModified Time 11/21/2019 11/21/2019 59M with [id number] [place] 3+4=7 prostate cancer s/p RALP. Discussed pathology, risk of recurrence, need for ongoing PSA monitoring. Small anastomotic leak, will cont Choi x 1 more week. Worsened LE edema, likely chronic, but will check LE u/s to be sure no DVT. [email or web address] Not available 11/21/2019 14:07:03 01/02/2020 01/02/2020 59M with [id number] [place] 3+4=7 prostate cancer s/p RALP. 1) Prostate cancer - f/u 4 months with PSA 2) EVETTE, moderate - cont Kegels - consider PFPT 3) ED - Cialis PRN [email or web address] Not available 01/02/2020 09:34:03 05/01/2020 05/01/2020 60M with [id number] [place] 3+4=7 prostate cancer s/p RALP 6 months ago. MICHAEL. 1) Prostate cancer - f/u 6 months with PSA 2) EVETTE, moderate - cont Kegels - consider PFPT 3) ED - Cialis PRN [email or web address] Not available 05/01/2020 10:47:29 10/24/2020 10/24/2020 60M with [id number] [place] 3+4=7 prostate cancer s/p RALP 1 year [...] floor therap y referr al 2020 021 [facility], [address], [facility] [address], [place], [address], 09:57:49 Procedures None record ed. Surgeries None record ed. Imaging None record ed. Medication Orders None record ed. Patient TargetsNo targets recorded. Patient Instructions Encounter Date Encounter Id Patient Instructions Last Modified By Organization Details Last Modified Time 11/28/2019 [id number] To follow up sumaya Doshi at his [...] Not Available [facility] [address], [place], [address], 05/01/2020 10:40:29 02/11/2020 lab* PSA <0.04 normal Not Available No t Available 01/07/2020 12:33:24 01/02/2020 PSA, serum or plasm a PSA, Total <0.04 ng/Ml Not Available [facility] [address], [place], [address], 01/02/2020 09:14:10 10/25/19 21 10/24/2020 PSA, serum or plasm a PSA, Total <0.04n g/mL Not Available [facility] [address], [place], [address], 10/24/2020 10:45:30 11/23/19 20 11/21/2019 CT, pelvi s, w/o contr ast No observ ation record ed. [email or web address] Not Available 17:13:18 Result Notes None recorded. Problems Name Problem SNOMED Code Status Onset Date Resolution Date Notes Provider Name and Address Organization Details Recorded Time Carcinoma of prostate 062541219 Active 2019 Caroline kruger [facility] 0 10:59:25 Male urinary stress incontinence 133269764 Active 2020 Momo mcfarlane MD, PHD [address] [place] [address],[address] [place] [address], [phone], [facility] 10:47:38 Primary erectile dysfunction 772837352 Active 2020 Momo mcfarlane MD, PHD [address] [place] [address],[address] [place] [address], [phone], [facility] 10:47:58 Problem Notes None recorded. Procedures Surgical History Date Name Laterality Status Provider Name and Address Organization Details Recorded Time 10/25/19 21 Blood Draw/BOX REPAIRER/PSA RESULTS completed Momo baez MD, PHD [address] [place] [address],[address], [place], [address], [facility] 10/24/2020 10:45:26 05/01/19 21 Blood Draw/BOX REPAIRER/PSA RESULTS completed Momo baez MD, PHD [address] [place] [address],[address] [place] [address], [phone], [facility] 05/01/2020 10:40:25 01/02/20 20 Blood Draw/BOX REPAIRER/PSA RESULTS completed Janice Ayala [facility] 01/02/2020 09:14:04 11/28/19 20 Choi Catheter Removal completed Caroline Smith [facility] 02/04/2020 12:00:10 Prostatectomy completed Momo baez MD, PHD [address] [place] [address],[facility] [address], [place], [address], [facility] 10/24/2020 10:44:48 colonoscopy completed Monica Awan [facility], [facility] 12/09/2020 10:47:07 Imaging Results Imaging [...] Name and Address Organization Details Recorded Time 043232 silver medicatio n Not available Not available Not available 11/21/2019 96321 43 RxNorm Caroline Smith [facility] 0 11:09:54 143694 adhesive tape environme nt,medica tion Not available Not available Not available 11/21/2019 Caroline Smith [facility] 0 11:10:01 Medications Name Sig Start [...] Updated DateTime 01/02/2020 180.34 cm 39.3 kg/m2 545876.05 g Caroline Smith [facility] 01/02/2020 09:09:40 Date Recorded Body height Body mass index (BMI) Body weight Provider Name and Address Organization Details Last Updated DateTime 05/01/2020 180.34 cm 39.3 kg/m2 432328.05 g Momo baez MD, PHD [address] [place], [place] [id number] [place] [address] 05/01/2020 10:39:59 Date Recorded Body height Body mass index (BMI) Body weight Provider Name and Address Organization Details Last Updated DateTime 10/24/2020 180.34 cm 39.7 kg/m2 476524.83 g Momo baez MD, PHD [address] [place], [place] [id number] [place] [address] 10/24/2020 10:44:13 Date Recorded Body height Body mass index (BMI) Body weight Provider Name and Address Organization Details Last Updated DateTime 11/21/2019 180.34 cm 39.3 kg/m2 543382.05 g Caroline Smith [facility] 11/21/2019 11:09:04 Social History Question [...] Diagnosis/Indication Diagnosis SNOMED-CT Code Diagnosis ICD10 Code [id number] Momo beard MD, PHD [facility] [place] [address] 11/21/2019 10:45:55 11/21/2019 15:00:28 Malignant tumor of prostate 364772132 C61 [id number] Caroline Gneiting [facility] [place] [address] 11/28/2019 09:57:13 02/06/2020 03:54:17 [id number] Momo beard MD, PHD [facility] [place] [address] 01/02/2020 08:46:59 01/02/2020 14:22:16 Malignant tumor of prostate 843180495 C61 [id number] Momo beard MD, PHD [facility] [address] [place] [address] 05/01/2020 09:26:51 05/01/2020 12:03:29 Malignant tumor of prostate 099295126 C61 Primary er ectile dysfunction 198595545 N52.9 [id number] Momo beard MD, PHD [facility] [place] [address] 10/24/2020 10:28:04 10/27/2020 16:45:05 Carcinoma of prostate 038415731 C61 Malignant tumor of prostate 200058494 C61 Primary er ectile dysfunction 155443828 N52.9 Male urina ry stress incontinence 064924014 N39.3 Health Concerns Section Related Observation LastModified by Organization Detai ls LastModified Time None Recorded Concern Status LastModified by Organization Details LastModified Time None Recorded Advance Directives Directive None Recorded Payers Encounter Date Sequence Insurance Name Policy Number Policy Archibald Covered Member ID Archibald Member ID Guarantor Name 11/21/2019 1 [facility] [id number] Julien Ridley [id number] Julien Ridley 11/28/2019 1 [facility] [id number] Julien Ridley [id number] Julien Ridley 01/02/2020 1 [facility] [id number] Julien Ridley [id number] Julien Ridley 05/01/2020 1 [facility] [id number] Julien Ridley [id number] Julien Ridley 10/24/2020 1 [facility] [id number] Julien Ridley [id number] Julien Ridley Notes Date Note Type Note Provider Name and Address Organization Details Recorded Time 11/21/2019 text/html HPI Notes: 59M s /p RALP 11/06/19 for [id number] [place] 3+4=7 prostate cancer (0/12 LN, -SMS) Overall doing well. Some drainage umbilical incision. Chronic LE edema worse especially R>L. Some hematuria when having BMs. No fever. Eating ok. Minimal pain. CT Cystogram today: small anastomotic leak PSA (07/27/19): 6.5 CONSTANZA: cT1c, 35g (J Carlos) MRI: none Biopsy (08/30/19): 23g, 3/12 cores (LLM, LMB, LMM [place] 3+4=7 up to 40%) Pre-op ED: 2 Momo Holliday MD, PHD [address] [place] [address],[address], [place], [address], [facility] 11/21/2019 14:07:42 01/02/2020 text/html HPI Notes: 59M with [id number] [place] 3+4=7 prostate cancer (0/12 LN, -SMS) s/p RALP 11/06/19. Small anastomotic leak, catheter removed 11/28/19. Overall doing well. C/o some leakage with BMs and position changes. Uses multiple depends per day...... LE u/s to eval for dvt last visit was negative PSA Results 07/27/19: 6.5 01/02/20: <0.04 UF: 4 EF: 5/ Pre-op EF: 2/5 Momo Holliday MD, PHD [address] [place] [address], [phone], [facility] 01/02/2020 09:35:54 05/01/2020 text/html HPI Notes: 60M with [id number] [place] 3+4=7 prostate cancer (0/12 LN, -SMS) s/p RALP 11/06/19. Small anastomotic leak, catheter removed 11/28/19. Overall doing well. C/o some leakage with BMs and position changes. Uses 4ppd which is improvement. No problems with incisions. PSA Results 07/27/19: 6.5 01/02/20: <0.04 05/01/20: <0.04 UF: 3/5 EF: 5/ Pre-op EF: 2/5 Momo Holliday MD, PHD [address] [place] [address], [phone], [facility] 05/01/2020 10:48:15 10/24/2020 text/html HPI Notes: 60M with [id number] [place] 3+4=7 prostate cancer (0/12 LN, -SMS) s/p RALP 11/06/19 Overall doing well. C/o some leakage with BMs and position changes and sexual activity. Uses 4ppd still. No problems with incisions. PSA Results 07/27/19: 6.5 01/02/20: <0.04 05/01/20: <0.04 10/24/20: <0.04 UF: 3/5 EF: 5/5 Pre-op EF: 2/5 Momo Holliday MD, PHD [address] [place] [address],[address], [address], [facility] 10/24/2020 11:30:55
--- OUTSIDE RECORDS SUMMARY | 2023-12-09 07:57 | XMS_ITS | Referral Summary ---
Author Organization [place] Address [address] [place] [address] Care Team Providers Care Payment Poster Name Role Phone Munir Sahu MD Primary [...] Advance Directives For more information, please contact: [phone] * Full Code (Latest Code Status on File) Date Activated Date Inactivated Comments 11/06/2019 2:19 PM 11/07/2019 9:06 PM All basic and advanced life-sustaining interventions are performed as appropriate Question Answer Comments Code status determined by: Unable to det ermine; FULL CODE until documents or legal decision maker available Care Teams Payment Poster Relationship Specialty Start Date End Date Munir Sahu MD PCP - General Family Practice 10/22/19
--- OUTSIDE RECORDS SUMMARY | 2023-12-09 07:57 | XMS_ITS | Clinical Summary ---
Author Organization [place] Address [address] [place] [address] Care Team Providers Care Assistant Professor Of Drama Name Role Phone Munir Sahu MD Primary [...] Advance Directives For more information, please contact: [phone] * Full Code (Latest Code Status on File) Date Activated Date Inactivated Comments 11/06/2019 2:19 PM 11/07/2019 9:06 PM All basic and advanced life-sustaining interventions are performed as appropriate Question Answer Comments Code status determined by: Unable to det ermine; FULL CODE until documents or legal decision maker available Care Teams Assistant Professor Of Drama Relationship Specialty Start Date End Date Munir Sahu MD PCP - General Family Practice 10/22/19
--- OUTSIDE RECORDS SUMMARY | 2023-12-09 07:58 | XMS_ITS | Encounter Summary ---
Author Organization [facility] Address [address] [place] [address] Care Team Providers Care Mattress Stripper Name Role Phone Elsewhere, Pcp Primary Care Provider Unavailabl e Reason for Visit * Reason Comments Weakness - Generalized Hyperglycemia Encounter Details Date Type Department Care Team (Late st Contact Info) Description 10/26/2023 10:48 PM CDT - 10/26/2023 11:59 PM CDT Emergency [facility] [address] [place] [phone] Hyperglycemia (Primary Dx) Discharge Disposition: Home or [...] bandage 12 10/03/2017 FreeStyle João 14 Day [place] misc 02/17/2021 FreeStyle João 14 Day Sensor [...] Primary documented in this encounter Care Teams Mattress Stripper Relationship Specialty Start Date End Date Elsewhere, Pcp PCP - General Family Medicine 06/15/17 documented as of this encounter
--- OUTSIDE RECORDS SUMMARY | 2023-12-09 07:58 | XMS_ITS ---
Author Organization [facility] Address [address] [place] [address] Care Team Providers Care Court Attendant Name Role Phone Unavailable Unavailable Unavailable Surgery Details Not on file Complications Check Surgery Details section. Procedure Estimated Blood Loss Check Surgery Details section. Procedure Findings Check Surgery Details section. Procedure Specimens Taken Check Surgery Details section.
--- OUTSIDE RECORDS SUMMARY | 2023-12-09 07:58 | XMS_ITS | Encounter Summary ---
Author Organization [facility] Address [address] [place] [address] Care Team Providers Care Back End Engineer Name Role Phone Elsewhere, Pcp Primary Care Provider Unavailabl e Reason for Visit * Reason Comments Chest Pain Encounter Details Date Type Department Care Team (Late st Contact Info) Description 09/17/2023 7:59 PM CDT - 09/17/2023 11:59 PM CDT Emergency [facility] [address] [place] [phone] Non-ST Elevation Myocardial Infarction (HCC) (Primary Dx) [...] bandage 12 10/03/2017 FreeStyle João 14 Day [place] misc 02/17/2021 FreeStyle João 14 Day Sensor [...] Primary documented in this encounter Care Teams Back End Engineer Relationship Specialty Start Date End Date Elsewhere, Pcp PCP - General Family Medicine 06/15/17 documented as of this encounter
--- OUTSIDE RECORDS SUMMARY | 2023-12-09 07:58 | XMS_ITS | Referral Summary ---
Author Organization [facility] Address [address] [place] [address] Care Team Providers Care Billing Associate Name Role Phone Elsewhere, Pcp Primary Care Provider Unavailabl e Source Comments Patient records contain information from all sites at [facility]. For routine questions regarding patient records, call [phone] during business hours, M-F 8:00 AM - 5:00 PM Central Time. Record requests for emergency care only can be directed to [phone] at any time.[facility] Encounters Date Type Department Care Team Description 10/26/2023 10:48 PM CDT - 10/26/2023 11:59 PM CDT Emergency [facility] [address] [place] [address] Hyperglycemia (Primary Dx) Discharge Disposition: Home or Self Care 09/17/2023 7:59 PM CDT - 09/17/2023 11:59 PM CDT Emergency [facility] [address] [place] [address] Non-ST Elevation Myocardial Infarction (HCC) (Primary Dx) Discharge Disposition: Home or Self Care from Last 3 Months Allergies Active Allergy Reactions Criticality Noted Date Comments Dimethicone-Petrolatum Rash 02/01/2014 Horse [place] Rash 07/16/2016 Silver Sulfate-Foam Bandage Rash 02/02/20 [...] mouth. 11/07/2019 Active FreeStyle João 14 Day [place] misc 02/17/2021 Active FreeStyle João 14 Day [...] Comments Blood Pressure 160/85 04/17/2021 1:03 PM LINING LAYER Pulse 74 04/17/2021 1:03 PM LINING LAYER Temperature 36.4 ??C (97.5 ??F) 04/17/2021 1:03 PM CS T Respiratory Rate 14 02/15/2021 1:17 PM LINING LAYER Oxygen Saturation 95% 02/15/2021 1:17 PM LINING LAYER Inhaled Oxygen Concentration - - Weight 138 kg (304 lb 3.8 oz) 04/17/2021 1:03 PM LINING LAYER Height 178 cm (5' 10.08) 04/17/2021 1:03 PM [facility]ING [facility]ER Body Mass Index 43.55 04/17/2021 1:03 PM LINING LAYER Plan of Treatment Not on file Procedures [...] PROCEDURES from Last 3 Months Care Teams Billing Associate Relationship Specialty Start Date End Date Elsewhere, Pcp PCP - General Family Medicine 06/15/17
--- OUTSIDE RECORDS SUMMARY | 2023-12-09 07:58 | XMS_ITS | Clinical Summary ---
Author Organization [facility] s & [facility] Address [place], [place] [address] Care Team Providers Care Chainman Name Role Phone Munir Sahu MD Primary Care Provider + [facility] [place] Unavailable [phone] Allergies Active Allergy Reactions Criticality Noted Date [...] by insurance) 9 mL 09/28/2023 Active Insulin [place], Disposable, (Susana Pen Needle) 32 gauge x [...] Diagnosed Date Coronary artery disease invo lving osage coronary artery without angina pectoris 10/28/2023 Overview: [...] Encounters Date Type Department Care Team Description 12/08/2023 6:56 AM CDT - 12/08/2023 11:59 PM CDT Hospital Encounter [facility] [address] [address] 12/08/2023 Travel 12/07/2023 6:52 AM CDT - 12/07/2023 11:59 PM CDT Hospital Encounter [facility] [address] [place] [address] 12/07/2023 Travel 12/01/2023 6:55 AM CDT - 12/01/2023 11:59 PM CDT Hospital Encounter [facility] [address] [place] [address] 12/01/2023 Travel 11/30/2023 6:55 AM CDT - 11/30/2023 11:59 PM CDT Hospital Encounter [facility] [address] [place] [address] 11/30/2023 Travel 11/29/2023 9:09 AM CDT - 11/29/2023 11:59 PM CDT Hospital Encounter [facility] [address] [place] [address] Alejandra Lau, PA S/p 3V CABG (SHER-LAD, LISA-ramus, radial-OM), 09/23/2023 11/29/2023 Travel 11/28/2023 7:30 AM CDT Home Care Visit [facility] [id number] [place] [phone] Elvira Reyes RN SN - OASIS DISCHARGE 11/22/2023 10:45 AM CDT Home Care Visit [facility] [address] [place] [phone] Tyson Mejias, PT PT - DISCIPLINE DISCHARGE 11/21/2023 10:00 AM CDT Home Care Visit [facility] [address] [place] [phone] Irma Hollins, RN SN - HOME VISIT 11/17/2023 7:30 AM CDT Home Care Visit [facility] [address] [place] [phone] Tyson Mejias, PT PT - HOME VISIT 11/15/2023 8:30 AM CDT Home Care Visit [facility] [address] [place] [phone] Tyson Mejias, PT PT - HOME VISIT 11/14/2023 8:30 AM CDT Home Care Visit [facility] [address] [place] [phone] Elvira Reyes RN SN - HOME VISIT 11/14/2023 3:30 AM CDT Home Care Visit [facility] [address] [place] [phone] Ailyn Varghese RN SN - WOUND/OSTOMY CHART CONSULT 11/11/2023 Telephone [facility] [address] [place] [address] Anibal Quigley MD Referral 11/10/2023 8:00 AM CDT Home Care Visit [facility] [address] [place] [phone] Tyson Mejias, PT PT - HOME VISIT 11/09/2023 10:00 AM CDT Home Care Visit [facility] [address] [place] [phone] Isa Cintron RN SN - HOME VISIT 11/09/2023 Orders Only [facility] [address] [place] [address] Louisa Lopez PA <No scans attached> 11/08/2023 Home Care Visit [facility] [address] [place] [phone] Tyson Mejias, PT CARE COORDINATION 11/07/2023 8:15 AM CDT Home Care Visit [facility] [address] [place] [phone] Tyson Mejias, PT PT - INITIAL ASSESSMENT 11/07/2023 7:30 AM CDT Home Care Visit [facility] [address] [place] [phone] Lexi Esteves, CHITRA SN - HOME VISIT 11/04/2023 Home Care Visit [facility] [address] [place] [address] Elvira Reyes, RN CARE COORDINATION 11/04/2023 Telephone [facility] [address] [facility] [address] [place] [address] Gregorio Olivia MD Medication Management (amlodipine) 11/02/2023 8:30 AM CDT Home Care Visit [facility] [address] [place] [address] Nohemy Anna LPN PILOT INSTRUCTOR - HOME VISIT 10/31/2023 3:00 PM CDT Home Care Visit [facility] [address] [place] [phone] Evie Young RN SN - HOME VISIT 10/31/2023 Procedure Only [facility] [address] [facility] [address] [place] [address] Device Check (Remote Leadless Pacemaker Ca... 10/28/2023 5:20 AM CDT - 10/28/2023 1:20 PM CDT Hospital Encounter [facility] [address] [place] [address] Kamran Li MD Essential hypertension (Primary Dx); CAD, multiple vessel; S/p 3V CABG (SHER-LAD, LISA-ramus, radial-OM), 09/23/2023 Discharge Disposition: Home Self Care 10/28/2023 Home Care Visit [facility] [address] [place] [address] Elvira Reyes RISK ADVISOR NOTE 10/28/2023 Travel 10/27/2023 8:30 AM CDT Home Care Visit [facility] [address] [place] [phone] Elvira Reyes RN SN - HOME VISIT 10/26/2023 10:48 PM CDT - 10/27/2023 12:53 AM CDT Emergency [facility] [address] [place] [address] Misha Styles III, MD Insomnia, unspecified type (Primary Dx); Anxiety Discharge Disposition: Home Self Care 10/26/2023 Travel 10/24/2023 9:00 AM CDT Home Care Visit [facility] [address] [place] [address] Elvira Reyes, RN SN - HOME VISIT 10/21/2023 Home Care Visit [facility] [address] [place] [address] Elvira Reyes, CHITRA CARE COORDINATION 10/21/2023 Telephone [facility] [address] [place] [address] Quentin Aiken MD Pre Procedure 10/21/2023 Telephone [facility] [address] [place] [address] Jen Greenberg NP Results 10/20/2023 1:50 PM CDT Orders Only [facility] [address] [place] [address] Lab 10/20/2023 1:00 PM CDT Office Visit [facility] [address] [place] [address] Jen Greenberg NP Follow Up (3-4 weeks for post-op CABGsternal wires to be removed, per Alejandra Berryu // pre-op for 10/27 staged pci w/ JTK); Refill Request (Nitro, atorvastatin, metoprolol, Furosamide, plavix and valsartan ); Concerns (SOB with longer walk pt states that he gets lightheadedness as well pt denies chest discomfort, edema, headaches, numbness, tinglings and palpitations at this time ) 10/20/2023 Travel 10/19/2023 7:45 AM CDT Home Care Visit [facility] [address] [place] [address] Elvira Reyes RN SN - HOME VISIT 10/17/2023 5:00 AM CDT Home Care Visit [facility] [address] [place] [phone] Isa Cintron, CHITRA SN - HOME VISIT 10/14/2023 11:30 AM CDT [facility] Care Visit [facility] [address] [place] [phone] Lavern Madrid RN SN - MISSED VISIT 10/12/2023 10:00 AM CDT Home Care Visit [address] [phone] Elvira Reyes RN SN - HOME VISIT 10/10/2023 9:45 AM CDT Home Care Visit [address] [phone] Elvira Reyes RN SN - HOME VISIT 10/07/2023 8:00 AM CDT Home Care Visit [facility] [address] [place] [phone] Elvira Reyes RN SN - HOME VISIT 10/05/2023 12:30 PM CDT Home Care Visit [address] [phone] Elvira Reyes RN SN - HOME VISIT 10/04/2023 2:00 PM CDT Procedure Only [facility] [address] [place] [address] Device Check (IN CLINIC [employer] LEADLESS... 10/04/2023 Travel 10/03/2023 7:00 AM CDT Home Care Visit [address] [phone] Lexi Esteves, CHITRA SN - HOME VISIT 10/03/2023 1:00 AM CDT Home Care Visit [address] [place] [phone] Ailyn Varghese, RN SN - WOUND/OSTOMY CHART CONSULT 10/03/2023 Telephone [facility] [address] [place] [address] Ailyn Varghese, paper spooler (Vascular and or Wound clinic referral is needed. Supplies with [employer]) 09/30/2023 9:30 AM CDT Home Care Visit [facility] [address] [place] [phone] Lexi Esteves, CHITRA SN - OASIS START OF CARE 09/30/2023 Plan of Care Documentation [facility] [address] [place] [phone] 09/28/2023 Orders Only [facility] [address] [facility] [address] [place] [address] Alejandra Lau PA <No scans attached> 09/23/2023 2:03 PM CDT Anesthesia Event [address] [address] Marylou De Anda MD Ludwig, Margaret J, CRNA 09/23/2023 12:45 PM CDT - 09/23/2023 8:02 PM CDT Surgery [address] [address] Gregorio Olivia MD CORONARY ARTERY BYPASS X 3 WITH RADIAL HARVEST, AND TEMP VENTRICULAR PACING WIRES 09/18/2023 2:58 AM CDT - 09/28/2023 2:30 PM CDT Hospital Encounter [address] [address] s, U Hospitalist Wendy Rodriguez DO [place], [...] CDT - 09/18/2023 1:46 AM CDT Emergency [facility] [address] [place] [address] Pritesh Boyer MD NSTEMI (non-ST elevated myocardial infarction) (HC) (Primary Dx) Discharge Disposition: Health Care Facility Not On List 09/17/2023 Telephone [facility] [address] [place] [address] Guzman Lovelace MD 09/17/2023 Travel from Last 3 Months Family History Medical [...] Care Team (Late st Contact Info) Description 12/12/2023 7:00 AM CDT Appointment [facility] [address] [facility] [address] 12/13/2023 8:00 AM CDT Appointment [facility] [place] [address] , [facility] [address] [place] [address] 12/13/2023 8:15 AM CDT Appointment [facility] [address], [facility] [address] [place] [address] 12/13/2023 1:30 PM CDT Office Visit [facility] [address] [facility] [address] [place] [address] Kamran Li MD [address] [place] [address] 12/14/2023 7:00 AM CDT Appointment [facility] [address] [place] [address] 12/15/2023 7:00 AM CDT Appointment [facility] [address] [facility] [address] 12/19/2023 9:30 AM CDT Orders Only [facility] [address] [place] [address] 12/21/2023 7:00 AM CDT Appointment [facility] [address] [place] [address] 12/22/2023 7:00 AM CDT Appointment [facility] [address] [facility] [address] 01/02/2024 7:00 AM CDT Appointment [facility] [address] [place] [address] 01/04/2024 7:00 AM CDT Appointment [facility] [address] [place] [address] 01/11/2024 7:00 AM CDT Appointment [facility] [address] [facility] [address] 01/12/2024 7:00 AM CDT Appointment [facility] [address] [place] [address] 01/12/2024 2:00 PM CDT Office Visit [facility] [address] [place] [address] Chriss Whittington MD [address] [address] 01/16/2024 7:00 AM CDT Appointment [facility] [address] [place] [address] 01/18/2024 7:00 AM CDT Appointment [facility] [address] [place] [address] 01/19/2024 7:00 AM CDT Appointment [facility] [address] [address] 01/23/2024 7:00 AM CDT Appointment [facility] [address] [place] [address] 01/25/2024 7:00 AM CDT Appointment [facility] [address] [place] [address] 01/26/2024 7:00 AM CDT Appointment [facility] [address] [place] [address] 01/30/2024 7:00 AM CDT Appointment [facility] [address] [place] [address] 02/01/2024 7:00 AM CDT Appointment [facility] [address] [place] [address] 02/02/2024 7:00 AM CDT Appointment [facility] [address] [place] [address] 02/06/2024 7:00 AM LOGISTICS LEAD Appointment [facility] [address] [place] [address] 02/08/2024 7:00 AM LOGISTICS LEAD Appointment [facility] [address] [place] [address] 02/09/2024 7:00 AM LOGISTICS LEAD Appointment [facility] [address] [place] [address] 02/13/2024 7:00 AM LOGISTICS LEAD Appointment [facility] [address] [place] [address] 02/15/2024 7:00 AM LOGISTICS LEAD Appointment [facility] [address] [place] [address] 02/16/2024 7:00 AM LOGISTICS LEAD Appointment [facility] [address] [place] [address] 02/20/2024 7:00 AM LOGISTICS LEAD Appointment [facility] [address] [place] [address] 02/27/2024 Procedure Only [address] [place] [phone] Health Maintenance Due Date Last Done Comments Pneumococcal series for age 6-64 (1 of 2 - PCV) 1967 Tdap 02/08/1972 Depression screening for age 12+ 1973 HIV for age 15-65 02/08/1976 Hepatitis C screening for age 18-79 1979 Tetanus booster 1981 Colonoscopy through age 75 2006 Zoster (shingles) series for age 50+ (1 of 2) 2011 COVID-19 vaccine series ( season) 2023 02/06/2021, 07/10/2020, 06/12/2020 Influenza for age 50-64 12/04/2023 BMI (ht and wt on same day) for age 18+ 10/19/2024 10/20/2023 Lipids for age 45-75 09/17/2028 09/18/2023 Procedures Procedure Name Priority Date/Time Associated Diagnosis Comments SCAN-CARDIAC REHABILITATION 12/08/2023 7:01 AM CDT SCAN-CARDIAC REHABILITATION 12/07/2023 7:01 AM CDT SCAN-CARDIAC REHABILITATION 12/01/2023 7:01 AM CDT GLUCOSE [...] 09/23/2023 9:51 PM CDT FIBRINOGEN,QUANTITATIVE STAT 09/23/19 24 9:45 PM CDT THROMBIN TIME STAT 09/23/2023 [...] CDT [facility] CATH INFUSION PR70 Routine 09/23/19 24 4:34 PM CDT [facility] KIT PR5 Routine 09/23/2023 4:34 PM CDT [facility] AN INTRODUCER 2 LUMEN PERFORMABLE Routine 09/23/2023 [...] Case Notes AVERAGE T/FPERFUSION-Confirmed w/Shayna for 1315 #[id number] EK 6/20OR STAFF BYPASS CORONARY ARTERY 01 2023 1:33 PM CDT Case Notes AVERAGE T/FPERFUSION-Confirmed w/Shayna for 1315 #[id number] EK 6/20OR STAFF GLUCOSE METER Timed 09/23/2023 [...] 12 LEAD STAT 09/17/2023 7:36 PM CDT from Last 3 Months Results * SCAN-CARDIAC REHABILITATION (12/08/2023 7:01 AM CDT) Only the most recent of5 resultswithin the time period is included. Scanner OTHER * (ABNORMAL) GLUCOSE METER (11/30/2023 7:54 AM CDT) Only the most recent of57 resultswithin the time period is included. GLUCOSE METER 151(H) 65 - 100 mg/dL 11/30/2023 7:59 AM CDT [facility] Blood BLOOD SPECIMEN / Unknown 11/30/2023 7:54 AM CDT 11/30/2023 7:59 AM CDT Doctor Unknown CHEMISTRY [facility] [address] [address] * SCAN-CARDIAC STRIP (10/28/2023 10:55 AM CDT) [...] NOW QTc 472 ms BEYOND NOW P Browning 56 degrees BEYOND NOW R Browning 45 degrees BEYOND NOW T Browning 70 degrees BEYOND NOW 10/28/2023 10:3 3 AM CDT 10/28/2023 11:07 AM CDT Kamran Li MD EKG ORD BEYOND NOW [place], [place] * (ABNORMAL) ACTIVATED CLOTTING TIME [id number] ACT (10/28/2023 8:56 AM CDT) ACTIVATED CLOTTING TIME, POCT 304(H) 74 - 125 sec 10/28/2023 12:18 PM CDT [facility] Blood BLOOD SPECIMEN / Unknown 10/28/2023 8:56 AM CDT 10/28/2023 12:18 PM CDT Kamran Li MD HEMATOLOGY [facility] [place] [address] [id number] [address] [place] [address] * CVL PCI ONLY (10/28/2023 8:19 AM CDT) Anatomical Region Laterality Modality X-Ray Angiograph y 10/28/2023 8:19 AM CDT Narrative Transcriptions Kamran Li MD - 10/28/2023 9:33 AM CDT [facility] Cardiac Catheterization Report Name: JOSE GUADALUPE RIDLEY Event Date: 10/28/2023 08:19 [facility] ID #: [id number] JAKE #: [id number] Diagnostic Physician: KAMRAN LI [facility] Interventional Physician: KAMRAN LI [facility] Referring Physician: GREGORIO OLIVIA Date: 1960 [...] inhibit spasm of the radialgraft. Consent & [place] Protocol The risks, benefits, and alternatives of the procedure were discussed withthe patient and written informed consent was obtained. [place] protocol was followed. TIME OUT conducted just prior tostarting procedure confirmed patient identity, site/side, procedure,patient position, and availability of correct equipment and implants (ifapplicable). Staff Name Title KAMRAN LI Business Consult Rafaela Bailey RN Nurse Hung Oviedo RTR ScrMachelle Ochoa RTR Monitor Jimmie Merino CVBonnie Photocopy Operator Procedures ? US Guided Access ? Coronary [...] 15mm 1 Distal RCA Drug Eluting Stent [place] 3.50 x 22mm Procedure Details Estimated Blood Loss: < 30 ml Specimen Collected: None Level of Sedation Achieved: Moderate Procedure Start: 08:19 Procedure End: :22 Procedure Time: 63 min Fluoroscopy Time: 16.2 min Cumulative Air Kerma: 1697 mGy DAP: 00423 mGy/cm2 Contrast: Omnipaque, 230 ml Physiologic Data [...] IV Kamran Li Kendra RN 08:39 Heparin 05367 units IV Kamran iL Kendra RN 08:44 Nitroglycerin 300 mcg IC [...] healthcare professional providing the sedation ends personal [id number] time with the patient. The medications listed above were verbally ordered by me and read back tome as documented above. Refer to the procedure log report for additional case details. electronically signed on 10/28/2023 9:33:27 AM with status of Final Kamran Li MD [address], [place] [address] [address] [place] [address] (p) [phone](f) Alejandra FAJARDO CV IMAGING * (ABNORMAL) CBC with Platelets no Differential (10/28/2023 6:35 AM CDT) Only the most recent of5 resultswithin the time period is included. WHITE BLOOD COUNT 5.9 4.5 - 11.0 thou/cu mm 10/28/2023 6:52 AM [facility] RED BLOOD COUNT 4.27(L) 4.30 - 5.90 mil/cu mm 10/28/2023 6:52 AM [facility] HEMOGLOBIN 12.6(L) 13.5 - 17.5 g/dL 10/28/2023 6:52 AM [facility] HEMATOCRIT 38.9 37.0 - 53.0 % 10/28/2023 6:52 AM [facility] MCV 91 80 - 100 fL 10/28/2023 6:52 AM [facility] MCH 29.5 26.0 - 34.0 pg 10/28/2023 6:52 AM [facility] MCHC 32.4 32.0 - 36.0 g/dL 10/28/2023 6:52 AM [facility] RDW 14.6 11.5 - 15.5 % 10/28/2023 6:52 AM [facility] PLATELET COUNT 193 140 - 440 thou/cu mm 10/28/2023 6:52 AM [facility] MPV 9.6 6.5 - 11.0 fL 10/28/2023 6:52 AM [facility] NRBC 0.0 % 10/28/2023 6:52 AM T [facility] ABS NRBC 0.0 thou /cu mm 10/28/2023 6:52 AM [facility] Blood BLOOD SPECIMEN / Unknown Venipuncture / Unknown 10/28/2023 6:35 AM CDT 10/28/2023 6:45 AM CDT Gregorio Elizabeth MD HEMATOLOGY [facility] SENDOUT INTERNAL ZIP [phone] [place] [address] * (ABNORMAL) Basic Metabolic Panel (10/28/2023 6:35 AM CDT) Only the most recent of14 resultswithin the time period is included. SODIUM 139 136 - 145 mmol/L 10/28/2023 7:19 AM [facility] POTASSIUM 3.8 3.5 - 5.1 mmol/L 10/28/2023 7:19 AM [facility] CHLORIDE 102 98 - 107 mmol/L 10/28/2023 7:19 AM [facility] CO2,TOTAL 25 22 - 29 mmol/L 10/28/2023 7:19 AM [facility] ANION GAP 12 5 - 18 10/28/2023 7:19 AM [facility] GLUCOSE 158(H) 70 - 99 mg/dL 10/28/2023 7:19 AM [facility] CALCIUM 9.4 8.8 - 10.2 mg/dL 10/28/2023 7:19 AM [facility] BUN 19 8 - 23 mg/dL 10/28/2023 7:19 AM [facility] CREATININE 0.97 0.70 - 1.20 mg/dL 10/28/2023 7:19 AM [facility] BUN/CREAT RATIO 20 10 - 20 7:19 AM [facility] eGFR 88(L) >90 mL/min/1.7 3m2 10/28/2023 7:19 AM [facility] Comment:As of 2021, eG FR is calculated by the CKD-EPI creatinine equation without race adjustment. ??eGFR can be influenced by muscle mass, exercise, and diet. ??The reported eGFR is an estimation only and is only applicable if the renal function is stable. Blood BLOOD SPECIMEN / Unknown Venipuncture / Unknown 10/28/2023 6:35 AM CDT 10/28/2023 6:45 AM CDT Gregorio Elizabeth MD CHEMISTRY [facility] SENDOUT INTERNAL ZIP [phone] [place] [address] * URINALYSIS MICROSCOPIC (10/26/2023 11:46 PM CDT) RBC None Seen 0-2, None Seen /HPF 10/26/2023 11:55 PM CDT [facility] WBC 0-2 0-2, 3-5, None Seen /HPF 10/26/2023 11:55 PM CDT [facility] BACTERIA Rare None Seen, Rare, Few Bacteria/H PF 10/26/2023 11:55 PM CDT [facility] EPITHELIAL CELLS Few None Seen, Few Epi/HPF 10/26/2023 11:55 PM T [facility] Urine URINE SPECIMEN / Unknown Non-Blood / Unknown 10/26/2023 11:46 PM CDT 10/26/2023 11:49 PM CDT Misha Styles III, MD URINE [facility] [address] [address] * (ABNORMAL) Urinalysis w Reflex Microscopic if Positive (10/26/2023 11:46 PM CDT) COLOR Yellow Yellow Color 10/26/2023 11:52 PM CDT [facility] CLARITY Clear Clear Clarity 10/26/2023 11:52 PM T [facility] SPECIFIC GRAVITY,URINE 1.020 1.010, 1.015, 1.020, 1.025 10/26/2023 11:52 PM T [facility] PH,URINE 6.0 6.0, 7.0, 8.0, 5.5, 6.5, 7.5, 8.5 10/26/2023 11:52 PM [facility] UROBILINOGEN, QUALITATIVE Normal Normal EU/dl 10/26/2023 11:52 PM [facility] PROTEIN, URINE Negative Negative mg/dL 10/26/2023 11:52 PM [facility] GLUCOSE, URINE >=1000(A) Negative mg/dL 10/26/2023 11:52 PM [facility] KETONES,URINE Negative Negative mg/dL 10/26/2023 11:52 PM [facility] BILIRUBIN,URI NE Negative Negative 10/26/2023 11:52 PM [facility] OCCULT BLOOD,URINE Negative Negative 10/26/2023 11:52 PM [facility] NITRITE Negative Negative 10/26/2023 11:52 PM [facility] LEUKOCYTE ESTERASE Negative Negative 10/26/2023 11:52 PM [facility] Urine URINE SPECIMEN / Unknown Non-Blood / Unknown 10/26/2023 11:46 PM CDT 10/26/2023 11:49 PM CDT Misha Styles III, MD URINE Performing Organization Address City/State/[facility] Co de Phone Number [facility] [address] [address] * (ABNORMAL) CBC WITH AUTO DIFFERENTIAL (10/26/2023 11:29 PM CDT) Only the most recent of3 resultswithin the time period is included. WHITE BLOOD COUNT 6.5 4.5 - 11.0 thou/cu mm 10/26/2023 11:40 PM [facility] RED BLOOD COUNT 4.13(L) 4.30 - 5.90 mil/cu mm 10/26/2023 11:40 PM [facility] HEMOGLOBIN 12.3(L) 13.5 - 17.5 g/dL 10/26/2023 11:40 PM [facility] HEMATOCRIT 39.2 37.0 - 53.0 % 10/26/2023 11:40 PM [facility] MCV 95 80 - 100 fL 10/26/2023 11:40 PM [facility] MCH 29.8 26.0 - 34.0 pg 10/26/2023 11:40 PM [facility] MCHC 31.4(L) 32.0 - 36.0 g/dL 10/26/2023 11:40 PM [facility] RDW 14.7 11.5 - 15.5 % 10/26/2023 11:40 PM [facility] PLATELET COUNT 179 140 - 440 thou/cu mm 10/26/2023 11:40 PM [facility] MPV 9.4 6.5 - 11.0 fL 10/26/2023 11:40 PM [facility] % NEUT 64.9 % 10/26/2023 11:40 PM [facility] % LYMPH 14.5 % 10/26/2023 11:40 PM [facility] % MONO 8.6 % 10/26/2023 11:40 PM [facility] % EOS 11.7 % 10/26/2023 11:40 PM [facility] % BASO 0.3 % 10/26/2023 11:40 PM [facility] ABSOLUTE NEUTROPHILS 4.2 1.7 - 7.0 thou/cu mm 10/26/2023 11:40 PM [facility] ABSOLUTE LYMPHOCYTES 0.9 0.9 - 2.9 thou/cu mm 10/26/2023 11:40 PM [facility] ABSOLUTE MONOCYTES 0.6 <0.9 thou/cu mm 10/26/2023 11:40 PM [facility] ABSOLUTE EOSINOPHILS 0.8(H) <0.5 thou/cu mm 10/26/2023 11:40 PM [facility] ABSOLUTE BASOPHILS 0.0 <0.3 thou/cu mm 10/26/2023 11:40 PM [facility] Blood BLOOD SPECIMEN / Unknown Venipuncture / Unknown 10/26/2023 11:29 PM CDT 10/26/2023 11:31 PM CDT Misha Styles III, MD HEMATOL[facility] [address] [id number] * SCAN-CARDIAC STRIP (09/28/2023 8:00 AM CDT) Scanner OTHER * PLATELET COUNT (09/28/2023 4:53 AM CDT) Only the most recent of10 resultswithin the time period is included. PLATELET COUNT 239 140 - 440 thou/cu mm 09/28/2023 5:32 AM CDT [facility] MPV 9.2 6.5 - 11.0 fL 09/28/2023 5:32 AM CDT [facility] Blood BLOOD SPECIMEN / Unknown Venipuncture / Unknown 09/28/2023 4:53 AM CDT 09/28/2023 5:21 AM CDT Sandhya FAJARDO HEMATOLOGY Performing Organization Address City/[facility]/ZIP Co de Phone Number [facility] SENDOUT [facility] [id number] [place] [address] [id number] * WHITE BLOOD COUNT (09/28/2023 4:53 AM CDT) Only the most recent of4 resultswithin the time period is included. WHITE BLOOD COUNT 7.3 4.5 - 11.0 thou/cu mm 09/28/2023 5:32 AM CDT [facility] NRBC 0.0 % 09/28/2023 5:32 AM CDT [facility] ABS NRBC 0.0 thou /cu mm 09/28/2023 5:32 AM CDT [facility] Blood BLOOD SPECIMEN / Unknown Venipuncture / Unknown 09/28/2023 4:53 AM CDT 09/28/2023 5:21 AM CDT Sandhya FAJARDO HEMATOLOGY [facility] SENDOUT [place] [address] [address] [place] [address] * (ABNORMAL) HEMOGLOBIN (09/28/2023 4:53 AM CDT) Only the most recent of10 resultswithin the time period is included. HEMOGLOBIN 11.6(L) 13.5 - 17.5 g/dL 09/28/2023 5:32 AM CDT [facility] MCV 91 80 - 100 fL 09/28/2023 5:32 AM CDT [facility] Blood BLOOD SPECIMEN / Unknown Venipuncture / Unknown 09/28/2023 4:53 AM CDT 09/28/2023 5:21 AM CDT Sandhya FAJARDO HEMATOLOGY Performing Organization Address [facility]/ZIP Co de Phone Number [facility] SENDOUT [place]NAL ZIP [phone] [place] [address] * SCAN-CARDIAC STRIP (09/27/2023 7:43 PM CDT) Scanner OTHER * ECHO TTE LIMITED W CONTRAST W COLOR W DOPPLER (09/27/2023 12:26 PM CDT) EJECTION FRACTION 55% PROSOLV Anatomical Region Laterality Modality Ultrasound 09/27/2023 11:3 8 AM CDT Narrative 09/27/2023 12:[address] PM [address]T [address] [address] Main: [email or web address] ? Transthoracic Echo Report JOSE GUADALUPE RIDLEY ID: [id number] Age: 63 : 1960 Ordering Provider: RAMANDEEP CHONG Exam Date: 09/27/2023 11:38 Gender: M [employer] Service Team Member: [facility] Height: 68 in BSA: 2.46 m?? [...] ?4.93 mmHg Rusty Major MD (Electronically Signed) [facility] Accredited Site Final Date: 27 September 2023 12:41 ICD-10 Codes: Procedure Note Rusty Major MD - 09/27/2023 [place] [address] Main: [email or web address] Transthoracic Echo Report KEYANA JOSE GUADALUPE Federico ID: [id number] Age: 63 : 1960 Ordering Provider:RAMANDEEP CHONG Exam Date: 09/27/2023 11:38 Gender: M [employer] Service Team Member: [facility] Height: 68 in BSA: 2.46 m?? [...] 4.93 mmHg Rusty Major MD (Electronically Signed) [facility] Accredited Site Final Date: 27 September 2023 12:41 ICD-10 Codes: Ramandeep Chong TENSILE TESTER ECHO ORD * POTASSIUM (09/27/2023 12:12 PM CDT) Only the most recent of4 resultswithin the time period is included. POTASSIUM 4.6 3.5 - 5.1 mmol/L 09/27/2023 12:45 PM CDT [facility] Blood BLOOD SPECIMEN / Unknown Butterfly / Unknown 09/27/2023 12:12 PM CDT 09/27/2023 12:28 PM CDT Gregorio Elizabeth MD CHEMISTRY [facility] SENDOUT [place]NAL [address] [address] [address] [place] [address] * SCAN-CARDIAC STRIP (09/27/2023 8:00 AM CDT) [...] Juanito Romeo MD ? 09/26/2023 ??5:44 PM [facility] Electrophysiology Laboratory Leadless Pacemaker (AV Micra) Procedure [...] procedure. Attending Signature: Juanito Romeo M.D. Cardiac Video Game Technician [facility] Manan Steele NP MATHEMATICAL ENGINEER ORD * EP PPM (09/26/2023 4:54 PM CDT) Anatomical Region Laterality Modality Other 09/26/2023 4:54 PM CDT Manan Steele NP CV IMAGING * SCAN-CARDIAC STRIP (09/26/2023 8:36 AM CDT) Scanner OTHER * (ABNORMAL) Protime-INR (09/26/2023 5:26 AM CDT) Only the most recent of7 resultswithin the time period is included. INR 1.2 <1.3 09/26/2023 5:38 AM CDT [facility] PROTIME 13.3(H) 10.3 - 12.3 sec 09/26/2023 5:38 AM CDT [facility] Blood BLOOD SPECIMEN / Unknown Venipuncture / Unknown 09/26/2023 5:26 AM CDT 09/26/2023 5:30 AM CDT Narrative [facility] - 09/26/2023 5:38 AM CDT ?Therapeutic [...] is on UFH. Gregorio Elizabeth MD HEMATOLOGY [facility] SENDOUT [place]NAL [address] [phone] [place] [address] * SCAN-PACER (09/26/2023 12:00 AM CDT) Narrative 09/26/2023 12:00 AM CDT Ordered by an unspecified provider. Other Clinical Staff OTHER * SCAN-CARDIAC STRIP (09/25/2023 8:00 AM CDT) Scanner OTHER * MAGNESIUM (09/25/2023 5:07 AM CDT) Only the most recent of8 resultswithin the time period is included. MAGNESIUM 2.1 1.6 - 2.4 mg/dL 09/25/2023 5:34 AM CDT [facility] Blood BLOOD SPECIMEN / Unknown Non-Lab Venipuncture / Unknown 09/25/2023 5:07 AM CDT 09/25/2023 5:15 AM CDT Gregorio Elizabeth MD CHEMISTRY [facility] SENDOUT INTERNAL ZIP [address] [address] [place] [address] * SCAN-CARDIAC STRIP (09/24/2023 11:32 PM CDT) [...] EXAM: XR CHEST 1 VIEW PORTABLE LOCATION: [facility] MEDICAL IMAGING DATE: 09/24/2023 INDICATION: ET tube [...] EXAM: XR CHEST 1 VIEW PORTABLE LOCATION: [facility] MEDICAL IMAGING DATE: 09/24/2023 INDICATION: ET tube [...] - 1.27 mmol/L 09/24/2023 4:35 AM CDT [facility] Blood BLOOD SPECIMEN / Unknown Non-Lab Venipuncture / Unknown 09/24/2023 4:20 AM CDT 09/24/2023 4:32 AM CDT Gregorio Elizabeth MD CHEMISTRY [facility] SENDOUT INTERNAL ZIP [address] [address] [place] [address] * (ABNORMAL) Arterial Blood Gas (09/24/2023 12:16 AM CDT) PH, ARTERIAL 7.33(L) 7.35 - 7.45 09/24/2023 12:25 AM CDT [facility] PCO2, ARTERIAL 52(H) 35 - 48 mmHg 09/24/2023 12:25 AM CDT [facility] PO2, ARTERIAL 164(H) 83 - 108 mmHg 09/24/2023 12:25 AM CDT [facility] HCO3, ARTERIAL 27 21 - 28 mmol/L 09/24/2023 12:25 AM CDT [facility] BASE EXCESS, ARTERIAL 0.6 -2.0 - 3.0 09/24/2023 12:25 AM CDT [facility] O2 SATURATION, ARTERIAL 100(H) 94 - 98 % 09/24/2023 12:25 AM CDT [facility] INSPIRED O2 95 09/24/2023 12:25 AM CDT [facility] Comment:Unit of Measure: Lit ers (L) if <=20; Percent (%) if >20 PATIENT TEMPERATURE 36.9 Degrees C 09/24/2023 12:25 AM CDT [facility] Blood ARTERIAL BLOOD SPECIMEN / Unknown Arterial / Unknown 09/24/2023 12:16 AM CDT 09/24/2023 12:21 AM CDT Gregorio Elizabeth MD CHEMISTRY Performing Organization Address City/State/[facility] Co de Phone Number [facility] SENDOUT INTERNAL ZIP [phone] [place] [address] * SCAN-CARDIAC STRIP (09/24/2023 12:00 AM CDT) Scanner OTHER * Thrombin Time - Immediate Postop (09/23/2023 9:45 PM CDT) Only the most recent of2 resultswithin the time period is included. THROMBIN TIME 15 <16 sec 09/23/2023 10:37 PM CDT [facility] Blood BLOOD SPECIMEN / Unknown Non-Lab Venipuncture / Unknown 09/23/2023 9:45 PM CDT 09/23/2023 9:55 PM CDT Gregorio Elizabeth MD HEMATOLOGY Performing Organization Address City/[facility]/ZIP Co de Phone Number [facility] SENDOUT INTERNAL ZIP [address] [address] [place] [address] * (ABNORMAL) APTT - Immediate Postop (09/23/2023 9:45 PM CDT) Only the most recent of15 resultswithin the time period is included. APTT 23(L) 28 - 36 sec 09/23/2023 10:37 PM CDT [facility] Blood BLOOD SPECIMEN / Unknown Non-Lab Venipuncture / Unknown 09/23/2023 9:45 PM CDT 09/23/2023 9:55 PM CDT Narrative [facility] - 09/23/2023 10:37 PM CDT Therapeutic Range: 57-87 seconds Gregorio Elizabeth MD HEMATOLOGY Performing Organization Address [facility] Co de Phone Number [facility] SENDOUT INTERNAL ZIP [phone] [place] [address] * (ABNORMAL) Fibrinogen, Quantitative - Immediate Postop (09/23/2023 9:45 PM CDT) Only the most recent of2 resultswithin the time period is included. FIBRINOGEN,MOHIT NTITATIVE 453(H) 193 - 401 mg/dL 09/23/2023 10:37 PM CDT [facility] Blood BLOOD SPECIMEN / Unknown Non-Lab Venipuncture / Unknown 09/23/2023 9:45 PM CDT 09/23/2023 9:55 PM CDT Gregorio Elizabeth MD HEMATOLOGY Performing Organization Address City/[facility]/ZIP Co de Phone Number [facility] SENDOUT INTERNAL ZIP [phone] [place] [address] * (ABNORMAL) Cardiac Thromboelastography (09/23/2023 8:05 PM CDT) Only the most recent of2 resultswithin the time period is included. Pathologist [facility] DESTINI REASON Diffuse Cardiac Bleeding 09/23/2023 10:17 PM CDT [facility] INTEM CT 212(H) 122 - 208 s 09/23/2023 10:17 PM CDT [facility] INTEM CFT 71 45 - 110 s 09/23/2023 10:17 PM CDT [facility] INTEM ALPHA 75 70 - 81 ?? 09/23/2023 10:17 PM CDT [facility] INTEM A10 57 46 - 67 mm 09/23/2023 10:17 PM CDT [facility] INTEM A20 63 51 - 72 mm 09/23/2023 10:17 PM CDT [facility] INTEM MCF 64 51 - 72 mm 09/23/2023 10:17 PM CDT [facility] INTEM ML 7 % 09/23/2023 10:17 PM CDT [facility] INTEM LI30 99 % 09/23/2023 10:17 PM CDT [facility] EXTEM CT 108(H) 43 - 82 s 09/23/2023 10:17 PM CDT [facility] EXTEM CFT 81 48 - 127 s 09/23/2023 10:17 PM CDT [facility] EXTEM ALPHA 74 65 - 80 ?? 09/23/2023 10:17 PM CDT [facility] EXTEM A10 60 46 - 67 mm 09/23/2023 10:17 PM CDT [facility] EXTEM A20 66 50 - 70 mm 09/23/2023 10:17 PM CDT [facility] EXTEM MCF 66 52 - 70 mm 09/23/2023 10:17 PM CDT [facility] EXTEM ML 7 % 09/23/2023 10:17 PM CDT [facility] EXTEM LI30 100 % 09/23/2023 10:17 PM CDT [facility] FIBTEM CT 116 s 09/23/2023 10:17 PM CDT [facility] FIBTEM CFT 593 s 09/23/2023 10:17 PM CDT [facility] FIBTEM ALPHA 67 ?? 09/23/2023 10:17 PM CDT [facility] FIBTEM A10 20 7 - 24 mm 09/23/2023 10:17 PM CDT [facility] FIBTEM A20 22 7 - 24 mm 09/23/2023 10:17 PM CDT [facility] FIBTEM MCF 23 7 - 24 mm 09/23/2023 10:17 PM CDT [facility] FIBTEM ML 0 % 09/23/2023 10:17 PM CDT [facility] FIBTEM LI30 100 % 09/23/2023 10:17 PM CDT [facility] HEPTEM CT 248(H) 122 - 208 s 09/23/2023 10:17 PM CDT [facility] HEPTEM CFT 83 45 - 110 s 09/23/2023 10:17 PM CDT [facility] HEPTEM ALPHA 73 70 - 81 ?? 09/23/2023 10:17 PM CDT [facility] HEPTEM A10 51 mm 09/23/2023 10:17 PM CDT [facility] HEPTEM A20 53 51 - 72 mm 09/23/2023 10:17 PM CDT [facility] HEPTEM MCF 54 51 - 72 mm 09/23/2023 10:17 PM CDT [facility] HEPTEM ML 10 % 09/23/2023 10:17 PM CDT [facility] Blood BLOOD SPECIMEN / Unknown Non-Lab Venipuncture / Unknown 09/23/2023 8:05 PM CDT 09/23/2023 8:13 PM CDT Milly HOUSE [facility] SENDOUT INTERNAL ZIP [address] [place] [address] * CVC TRIPLE LUMEN, HCHG STOPCOCK PR5, [...] ??Comment: Supplemental O2: supplemental oxygen. ??Comment:. 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 INTRAOPERATIVE TRANSESOPHAGEAL ECHOCARDIOGRAM Name: Jose Guadalupe Ridley Date of service: ??09/23/2023 Procedure(s): CORONARY ARTERY BYPASS WITH GRAFTING, ENDOSCOPIC VEIN HARVEST . Video documentation of the exam on [employer] PRECPB EXAM The ZACHARY probe was [...] exam unchanged from pre-CPB. Images saved to offline editor. Teeth and oropharynx unchanged from pre-op. Probe removed intact without signs of damage. This exam supervised by Marylou De Adna MD Anesthesiologist ?? Marylou De Anda MD [...] >90 mL/min/1.7 3m2 09/22/2023 3:42 PM CDT [facility] Comment:As of 2021, eG FR is calculated by the CKD-EPI creatinine equation without race adjustment. ??eGFR can be influenced by muscle mass, exercise, and diet. ??The reported eGFR is an estimation only and is only applicable if the renal function is stable. CREATININE 1.13 0.70 - 1.20 mg/dL 09/22/2023 3:42 PM CDT [facility] Blood BLOOD SPECIMEN / Unknown Butterfly / Unknown 09/22/2023 3:12 PM CDT 09/22/2023 3:16 PM CDT Ramandeep Chong NP CHEMISTRY [facility] SENDOUT INTERNAL ZIP [address] [address] [place] [address] * RED BLOOD CELLS EA UNIT (09/22/2023 9:35 AM CDT) Only the most recent of2 resultswithin the time period is included. CROSSMATCH Compatible Compatible [facility] BLOOD BANK PRODUCT BLOOD TYPE O Rh Negative [facility] BLOOD BANK PRODUCT ID NUMBER [id number] [facility] BLOOD BANK PRODUCT STATUS /Relea sed [facility] BLOOD BANK PRODUCT DESCRIPTION RBC -1 LR [facility] PRODUCT CODE [id number] [facility] Ramandeep Chong NP BLOOD BANK Performing Organization Address City/[facility]/ZIP Co de Phone Number [facility] [address] [place] [phone] * EXTRA TUBE LAVENDER (09/22/2023 9:34 AM CDT) Blood BLOOD SPECIMEN / Unknown Extra Tube / Unknown 09/22/2023 9:34 AM CDT 09/22/2023 10:58 AM CDT Doctor Unknown LABORATORY Performing Organization Address City/[facility]/ZIP Co de Phone Number [facility] SENDOUT INTERNAL ZIP [phone] [place] [address] * RBC W TYPE AND SCREEN (09/22/2023 9:34 AM CDT) ABORH O Rh Negative 09/22/2023 11:35 AM CDT [facility] BLOOD BANK ANTIBODY SCREEN Negative Negative 09/22/2023 11:35 AM CDT [facility] SPECIMEN EXPIRATION DATE/TIME 09/25/23 23:59 09/22/2023 11:35 AM CDT [facility] Blood BLOOD SPECIMEN / Unknown Venipuncture / Unknown 09/22/2023 9:34 AM CDT 09/22/2023 10:49 AM CDT Ramandeep Chong NP BLOOD BANK Performing Organization Address City/[facility]/ZIP Co de Phone Number [facility] [address] [place] [address] * SCAN-CARDIAC STRIP (09/22/2023 8:13 AM CDT) Scanner OTHER * HEMATOCRIT (09/22/2023 4:55 AM CDT) Only the most recent of4 resultswithin the time period is included. HEMATOCRIT 45.1 37.0 - 53.0 % 09/22/2023 5:21 AM CDT [facility] Blood BLOOD SPECIMEN / Unknown Venipuncture / Unknown 09/22/2023 4:55 AM CDT 09/22/2023 5:18 AM CDT Narrative [facility] - 09/22/2023 5:21 AM CDT Every morning while on IV heparin. Every morning while on IV heparin. Necessary every morning while on IV heparin. Wendy King DO HEMATOLOGY [facility] SENDOUT INTERNAL ZIP [phone] [place] [address] * SCAN-CARDIAC STRIP (09/22/2023 1:22 AM CDT) [...] CDT 1. ?Cholelithiasis. 2. ?Please refer to lumber driver's dictation for the cardiac CT report. Narrative 09/22/2023 3:42 PM CDT Results are automatically released to your [employer]) account once available, in compliance with federal regulations. ??This means that you may see your results before your provider has had a chance to review them. ??Please allow 2-3 business days for your provider to comment on the results. CT ANGIOGRAM OF THE THORACIC AORTA, 09/20/2023 INDICATION: Pre-coronary artery bypass grafting. CONCLUSIONS: This is a dual read study - please review [facility] over-read below for incidental non cardiac [...] cc/sec, was performed on a ??[employer] SOMATOM BeMe Intimates CT scanner. The imaging protocol was individualized to minimize radiation exposure. The following ECG-gated acquisition protocol was used: High pitch prospective. ??Pulse range 300-300. Tube potential: 120 kV. Tube current: 5004 mAs. Total DLP: 1158 mGy*cm; mSv: 16.2; CTDI: 54.3. Image post processing was performed on a [employer] Workstation. Images were reconstructed at a slice [...] for incidental non-cardiac findings. Monique Finn MD [facility] AB/car For Patients: As a result of the Cures Act, medical imaging exams and procedure reports are released immediately into your electronic medical record. You may view this report before your referring provider. If you have questions, please contact your health care provider. EXAM: OVERREAD: DETAILED TEANECK RADIOLOGY EXTRACARDIAC OVERREAD OF CARDIAC CT LOCATION: [...] patent, venous diameters as describedabove. Ramandeep Chong TENSILE TESTER US * SCAN-CARDIAC STRIP (09/20/2023 8:44 AM [...] Li MD - 09/19/2023 5:59 PM CDT [facility] Cardiac Catheterization Report Name: JOSE GUADALUPE Owens ARISTIDESJAC Event Date: 09/19/2023 17:17 Excellian ID #: [id number] [facility] #: [id number] Diagnostic Physician: KAMRAN LI [facility] Primary Medical Terminologist: RACHID MÉNDEZ Referring Physician: Date: 1960 Gender: [...] < 70 ;Triglycerides < 100 Consent & [place] Protocol The risks, benefits, and alternatives of the procedure were discussed withthe patient and written informed consent was obtained. [place] protocol was followed. TIME OUT conducted just prior tostarting procedure confirmed patient identity, site/side, procedure,patient position, and availability of correct equipment and implants (ifapplicable). Staff Name Title KAMRAN LI Diagnostic Medical Terminologist Rafaela Bailey RN Nurse Dang Ghosh RN [...] min Cumulative Air Kerma: 493 mGy DAP: 04235 mGy/cm2 Contrast: Omnipaque, 50 ml Visipaque 320, [...] healthcare professional providing the sedation ends personal [id number]-sbiz time with the patient. The medications listed above were verbally ordered by me and read back tome as documented above. Refer to the procedure log report for additional case details. electronically signed on 09/19/2023 5:59:16 PM with status of Final Kamran Li MD [address], [place] [address] [place] [address] (p) [phone](f) Quentin Aiken MD CV IMAGING * ECHO TTE COMPLETE W CONTRAST (09/19/2023 10:48 AM CDT) EJECTION FRACTION 45-50% PROSOLV Anatomical Region Laterality Modality Ultrasound 09/19/2023 10:1 2 AM CDT Narrative 09/19/2023 11:[place] [address] Main: [email or web address] ? 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 BP: 141 / 82 Weight: 318 lbs BMI: 44.4 kg/m?? HR: 85 Location: Inpatient (Portable) Rhythm: Normal Sinus Rhythm Procedure Components: 2D imaging with contrast, Color Doppler, Spectral Doppler Indications: Chest pain chest pressure chest tightening Technical Quality: Fair Contrast: Definity Constrast Dose (ml): 0.3 [facility]#: [id number] Final Conclusion 1. Technically challenging echocardiogram. 2. 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 BP: 141 / 82 Weight: 318 lbs BMI: 44.4 kg/m?? HR: 85 Location: Inpatient (Portable) Rhythm: Normal Sinus Rhythm Procedure Components: 2D imaging with contrast, Color Doppler, SpectralDoppler Indications: Chest pain chest pressure chest tightening Technical Quality: Fair Contrast: Definity Constrast Dose (ml): 0.3 [facility]#: [id number] Final Conclusion 1. Technically challenging echocardiogram. 2. [...] ZScore: 0.00 Rusty Major MD (Electronically Signed) [facility] Accredited Site Final Date: 19 September 2023 11:44 ICD-10 Codes: Wendy King DO ECHO ORD * SCAN-CARDIAC STRIP (09/19/2023 8:00 AM CDT) Scanner OTHER * SCAN-CARDIAC STRIP (09/19/2023 4:02 AM CDT) Scanner OTHER * SCAN-CARDIAC STRIP (09/18/2023 7:42 PM CDT) Scanner OTHER * SCAN-CARDIAC STRIP (09/18/2023 7:55 AM CDT) Scanner OTHER * (ABNORMAL) HEMOGLOBIN A1C SCREENING (09/18/2023 4:17 AM CDT) Pathologist [facility] HEMOGLOBIN A1C SCREENING 6.5(H) <=6.4 % 09/18/2023 7:22 AM [facility] Blood BLOOD SPECIMEN / Unknown Venipuncture / Unknown 09/18/2023 4:17 AM CDT 09/18/2023 4:27 AM CDT [facility] - 09/18/2023 7:22 AM CDT ? (<5.7%) ?Normal ? (5.7% to 6.4%) ? Indicates prediabetes ? (>=6.5%) ? Confirms diabetes Falsely low levels may be seen with: Recent Transfusion, Recent Significant Blood Loss, Hemolytic Diseases, or Falsely elevated levels may be seen with: Untreated Anemias, Splenectomy Wendy King DO CHEMISTRY [facility] SENDOUT INTERNAL ZIP [phone] [place] [address] * LIPID PANEL (09/18/2023 4:17 AM CDT) [facility] CHOLESTEROL,TOTAL 174 100 - 199 mg/dL 09/18/2023 4:54 AM [facility] Comment: Cholesterol, Total Reference Ranges Desirable <200 mg/dL Borderline 200-239 mg/dL High >=240 mg/dL TRIGLYCERIDES 105 <150 mg/dL 09/18/2023 4:54 AM [facility] HDL CHOLESTEROL 42 >40 mg/dL 4:54 AM [facility] NON-HDL CHOLESTEROL 132 <145 mg/dl 09/18/2023 4:54 AM [facility] CHOL/HDL RATIO 4.14 <4.50 09/18/2023 4:54 AM [facility] LDL CHOLESTEROL 111 <=130 mg/dL 09/18/2023 4:54 AM [facility] VLDL CHOLESTEROL 21 <=30 mg/dL 09/18/2023 4:54 AM [facility] PROVIDER ORDERED STATUS RANDOM 09/18/2023 4:54 AM [facility] Blood BLOOD SPECIMEN / Unknown Venipuncture / Unknown 09/18/2023 4:17 AM CDT 09/18/2023 4:27 AM CDT Wendy King DO CHEMISTRY [facility] SENDOUT INTERNAL ZIP [address] [address] [place] [address] * SCAN-CARDIAC STRIP (09/18/2023 3:10 AM CDT) Scanner OTHER * SCAN-CARDIAC STRIP (09/18/2023 12:00 AM CDT) Narrative 09/18/2023 12:00 AM CDT Ordered by an unspecified provider. Other Clinical Staff OTHER * (ABNORMAL) TROPONIN T (HS) ONE TIME (09/17/2023 9:52 PM CDT) TROPONIN T HS 156(H) 6-15 ng/L ng/L 09/17/2023 10:13 PM CDT [facility] Blood BLOOD SPECIMEN / Unknown Venipuncture / Unknown 09/17/2023 9:52 PM CDT 09/17/2023 9:53 PM CDT Pritesh Boyer MD CHEMISTRY Performing Organization Address City/[facility]/ZIP Co de Phone Number [facility] [address] [phone] * (ABNORMAL) TROPONIN T (HS) ACUTE W/2HR REFLEX (09/17/2023 7:55 PM CDT) TROPONIN T HS 74(H) 6-15 ng/L ng/L 09/17/2023 8:29 PM CDT [facility] Blood BLOOD SPECIMEN / Unknown IV Start / Unknown 09/17/2023 7:55 PM CDT 09/17/2023 7:56 PM CDT Narrative [facility] - 09/17/2023 8:29 PM CDT [id number] ([employer] [...] department patient population. Pritesh Boyer MD CHEMISTRY [facility] [address] [phone] * (ABNORMAL) COMP METABOLIC PANEL (09/17/2023 7:55 PM CDT) SODIUM 138 136 - 145 mmol/L 09/17/2023 8:29 PM CDT [facility] POTASSIUM 4.5 3.5 - 5.1 mmol/L 09/17/2023 8:29 PM CDT [facility] CHLORIDE 102 98 - 107 mmol/L 09/17/2023 8:29 PM [facility] CO2,TOTAL 27 22 - 29 mmol/L 09/17/2023 8:29 PM [facility] ANION GAP 9 5 - 18 09/17/2023 8:29 PM [facility] GLUCOSE 229(H) 70 - 99 mg/dL 09/17/2023 8:29 PM [facility] CALCIUM 9.2 8.8 - 10.2 mg/dL 09/17/2023 8:29 PM [facility] BUN 17 8 - 23 mg/dL 09/17/2023 8:29 PM [facility] CREATININE 0.93 0.70 - 1.20 mg/dL 09/17/2023 8:29 PM [facility] BUN/CREAT RATIO 18 10 - 20 8:29 PM [facility] eGFR >90 >90 mL/min/1.7 3m2 09/17/2023 8:29 PM [facility] Comment:As of 2021, eG FR is calculated by the CKD-EPI creatinine equation without race adjustment. ??eGFR can be influenced by muscle mass, exercise, and diet. ??The reported eGFR is an estimation only and is only applicable if the renal function is stable. ALBUMIN 3.9(L) 4.0 - 4.9 g/dL 09/17/2023 8:29 PM [facility] PROTEIN,TOTAL 7.2 6.0 - 8.0 g/dL 09/17/2023 8:29 PM [facility] BILIRUBIN,TOTAL 0.5 0.0 - 1.2 mg/dL 09/17/2023 8:29 PM [facility] ALK PHOSPHATASE 114 40 - 129 IU/L 09/17/2023 8:29 PM [facility] ALT (SGPT) 30 10 - 50 IU/L 09/17/2023 8:29 PM [facility] AST (SGOT) 37 10 - 50 IU/L 09/17/2023 8:29 PM [facility] Blood BLOOD SPECIMEN / Unknown IV Start / Unknown 09/17/2023 7:55 PM CDT 09/17/2023 7:56 PM CDT Pritesh Boyer MD CHEMISTRY [facility] [address] [place] [address] from Last 3 Months Advance Directives * [...] Code Status Discussion: Not Discussed Care Teams Chainman Relationship Specialty Start Date End Date Munir Sahu MD [address] [place] [address] PCP - General Family Practice 09/17/23 [facility] [address] [place] [address] 09/28/23
--- OUTSIDE RECORDS SUMMARY | 2023-12-09 07:58 | XMS_ITS | Clinical Summary ---
Author Organization [facility] Address [address] [place] [address] Care Team Providers Care Peanut Roaster Name Role Phone Elsewhere, Pcp Primary Care Provider Unavailabl e Source Comments Patient records contain information from all sites at [facility]. For routine questions regarding patient records, call [phone] during business hours, M-F 8:00 AM - 5:00 PM Central Time. Record requests for emergency care only can be directed to [phone] at any time.[facility] Allergies Active Allergy Reactions Criticality Noted Date Comments Dimethicone-Petrolatum Rash 02/01/2014 Horse [place] Rash 07/16/2016 Silver Sulfate-Foam Bandage Rash 02/02/20 [...] mouth. 11/07/2019 Active FreeStyle João 14 Day [place] misc 02/17/2021 Active FreeStyle João 14 Day [...] [facility] [address] [place] [address] Hyperglycemia (Primary Dx) Discharge Disposition: Home or Self Care 09/17/2023 7:59 PM CDT - 09/17/2023 11:59 PM CDT Emergency [facility] [address] [place] [address] Non-ST Elevation Myocardial Infarction (HCC) (Primary Dx) [...] Comments Blood Pressure 160/85 04/17/2021 1:03 PM INTERNAL AUDIT SENIOR MANAGER Pulse 74 04/17/2021 1:03 PM INTERNAL AUDIT SENIOR MANAGER Temperature 36.4 ??C (97.5 ??F) 04/17/2021 1:03 PM CS T Respiratory Rate 14 02/15/2021 1:17 PM INTERNAL AUDIT SENIOR MANAGER Oxygen Saturation 95% 02/15/2021 1:17 PM INTERNAL AUDIT SENIOR MANAGER Inhaled Oxygen Concentration - - Weight 138 kg (304 lb 3.8 oz) 04/17/2021 1:03 PM INTERNAL AUDIT SENIOR MANAGER Height 178 cm (5' 10.08) 04/17/2021 1:03 PM INTERNAL AUDIT SENIOR MANAGER Body Mass Index 43.55 04/17/2021 1:03 PM INTERNAL AUDIT SENIOR MANAGER Plan of Treatment Health Maintenance Due Date Last Done Comments CT Colonography 1961 Cologuard 1961 Colonoscopy 1961 Colorectal Cancer Screening 1961 Diabetic Office Visit with F oot Exam 1961 Dilated Eye Exam 1961 FIT 1961 HIV Screening 1961 Hepatitis C Screening 1961 Office Visit for Blood Press ure Check / Re-check 1961 Urine Albumin 1961 Zoster Vaccines (1 of 2) 2011 Depression Screening (Annual PHQ-2) 04/04/2023 COVID-19 Vaccine (2022-05 4 season) 2023 02/06/2021, 07/10/2020, 06/12/2020 Influenza Vaccine (#1) 2024 , 05/15/2018, 01/23/2016, Additional history exists Hemoglobin A1C 03/19/2024 09/18/2023, 01/08/2014 Lipid (Cholesterol) Screening 09/17/2024 09/18/2023, 01/08/2014 Creatinine Level (Kidney Fun ction Test) 10/27/2024 10/28/2023, 10/26/2023, 10/20/2023, Additional history exists Potassium Level 10/27/2024 10/28/2023, 07/2 07/2023, 10/20/2023, Additional history exists Sodium Level 10/27/2024 10/28/2023, 07/2 07/2023, 10/20/2023, Additional history exists Pneumococcal vaccine [...] PROCEDURES from Last 3 Months Care Teams Peanut Roaster Relationship Specialty Start Date End Date Elsewhere, Pcp PCP - General Family Medicine 06/15/17
== END 2023-12-09 07:56 | disposition home or self-care (01) ==
PROVIDERS: PCP Family Medicine; Visit Provider Nurse Practitioner Family
DX: I87.312 Chronic venous hypertension (idiopathic) with ulcer of left lower extremity (principal); I87.2 Venous insufficiency (chronic) (peripheral); E11.622 Type 2 diabetes mellitus with other skin ulcer; L97.322 Non-pressure chronic ulcer of left ankle with fat layer exposed; Z79.84 Long term (current) use of oral hypoglycemic drugs
CPT/HCPCS: 15271; Q4101

== ENCOUNTER 2023-12-12 11:01 | Outpatient (CLI) | payer OTHER, SELFPAY ==
--- OUTSIDE RECORDS SUMMARY | 2023-12-12 11:03 | XMS_ITS | Data Portability ---
Author Organization [place] [facility] Address [address] [place] [address] Care Team Providers Care Social Services Name Role Phone GORDY SOL Primary Care Provider Assessment Encounter Date Assessment Date Assessment LastModified by Organization Details LastModified Time 11/21/2019 11/21/2019 59M with [id number] [place] 3+4=7 prostate cancer s/p RALP. Discussed pathology, risk of recurrence, need for ongoing PSA monitoring. Small anastomotic leak, will cont Choi x 1 more week. Worsened LE edema, likely chronic, but will check LE u/s to be sure no DVT. [email or web address] Not available 11/21/2019 14:07:03 01/02/2020 01/02/2020 59M with [id number] [place] 3+4=7 prostate cancer s/p RALP. 1) Prostate cancer - f/u 4 months with PSA 2) EVETTE, moderate - cont Kegels - consider PFPT 3) ED - Cialis PRN [email or web address] Not available 01/02/2020 09:34:03 05/01/2020 05/01/2020 60M with [id number] Heidy 3+4=7 prostate cancer s/p RALP 6 months ago. MICHAEL. 1) Prostate cancer - f/u 6 months with PSA 2) EVETTE, moderate - cont Kegels - consider PFPT 3) ED - Cialis PRN [email or web address] Not available 05/01/2020 10:47:29 10/24/2020 10/24/2020 60M with [id number] [place] 3+4=7 prostate cancer s/p RALP 1 year [...] floor therap y referr al [address] [facility], [address], [facility] [address], [place], [address], 09:57:49 Procedures None record ed. Surgeries None record ed. Imaging None record ed. Medication Orders None record ed. Patient TargetsNo targets recorded. Patient Instructions Encounter Date Encounter Id Patient Instructions Last Modified By Organization Details Last Modified Time 11/28/2019 [id number] To follow up sumaya Doshi at his [...] Not Available [facility] [address], [place], [address], 05/01/2020 10:40:29 02/11/2020 lab* PSA <0.04 normal Not Available No t Available 01/07/2020 12:33:24 01/02/2020 PSA, serum or plasm a PSA, Total <0.04 ng/Ml Not Available [facility] [address], [place], [address], 01/02/2020 09:14:10 10/25/19 21 10/24/2020 PSA, serum or plasm a PSA, Total <0.04n g/mL Not Available [facility] [address], [place], [address], 10/24/2020 10:45:30 11/23/19 20 11/21/2019 CT, pelvi s, w/o contr ast No observ ation record ed. cedric Not Available 17:13:18 Result Notes None recorded. Problems Name Problem SNOMED Code Status Onset Date Resolution Date Notes Provider Name and Address Organization Details Recorded Time Carcinoma of prostate 209988665 Active 2019 Caroline kruger [facility] 0 10:59:25 Male urinary stress incontinence 478068291 Active 2020 Momo mcfarlane MD, PHD [address] [place] [address],[address] [place] [address], [phone], [facility] 10:47:38 Primary erectile dysfunction 729874031 Active 2020 Momo mcfarlane MD, PHD [address] [place] [address],[address] [place] [address], [phone], [facility] 10:47:58 Problem Notes None recorded. Procedures Surgical History Date Name Laterality Status Provider Name and Address Organization Details Recorded Time 10/25/19 21 Blood Draw/AUTOMOBILE LEASING SUPERVISOR/PSA RESULTS completed Momo baez MD, PHD [address] [place] [address],[address], [place], [address], [facility] 10/24/2020 10:45:26 05/01/19 21 Blood Draw/AUTOMOBILE LEASING SUPERVISOR/PSA RESULTS completed Momo baez MD, PHD [address] [place] [address],[address] [place] [address], [phone], [facility] 05/01/2020 10:40:25 01/02/20 20 Blood Draw/AUTOMOBILE LEASING SUPERVISOR/PSA RESULTS completed Janice Ayala [facility], [facility] 01/02/2020 09:14:04 11/28/19 20 Choi Catheter Removal completed Caroline Smith [facility], [facility] 02/04/2020 12:00:10 Prostatectomy completed Momo baez MD, PHD [address] [place] [address],[address], [place], [address], [facility] 10/24/2020 10:44:48 colonoscopy completed Monica Awan [facility], [facility] 12/09/2020 10:47:07 Imaging Results Imaging Date Name Status LastModified by Organiz ation Details LastModified Time 11/21/2019 CT, pelvis, w/o contrast completed cedric Information not available 11/29/2019 17:13:18 Procedure Notes None recorded. Medical Equipment None Reported. Allergies Allergen ID Allergen Name Allergen Category Reaction Reaction Severity Criticality Documentation Date Start Date Code Code System Note Provider Name and Address Organization Details Recorded Time 023625 silver medicatio n Not available Not available Not available 11/21/2019 96860 43 RxNorm Caroline Smith [facility] 0 11:09:54 831621 adhesive tape environme nt,medica tion Not available Not available Not available 11/21/2019 Caroline Smith [facility] 0 11:10:01 Medications Name Sig [...] Updated DateTime 01/02/2020 180.34 cm 39.3 kg/m2 522103.05 g Caroline Smith [facility] 01/02/2020 09:09:40 Date Recorded Body height Body mass index (BMI) Body weight Provider Name and Address Organization Details Last Updated DateTime 05/01/2020 180.34 cm 39.3 kg/m2 954146.05 g Momo baez MD, PHD [address] [place], [place] [address] [place] [address] 05/01/2020 10:39:59 Date Recorded Body height Body mass index (BMI) Body weight Provider Name and Address Organization Details Last Updated DateTime 10/24/2020 180.34 cm 39.7 kg/m2 546620.83 g Momo baez MD, PHD [address] [place], [place] [address] [place] [address] 10/24/2020 10:44:13 Date Recorded Body height Body mass index (BMI) Body weight Provider Name and Address Organization Details Last Updated DateTime 11/21/2019 180.34 cm 39.3 kg/m2 680504.05 g Caroline Smith [facility] 11/21/2019 11:09:04 Social History Question Answer Notes LastModified by Organizat ion Details LastModified Time Tobacco Smoking Status Never Smoker Caroline kruger [facility] 11/21/2019 11:10:15 What Is Your Level Of [...] Diagnosis/Indication Diagnosis SNOMED-CT Code Diagnosis ICD10 Code [id number] Momo beard MD, PHD [facility] [address] [facility] [place] [address] 11/21/2019 10:45:55 11/21/2019 15:00:28 Malignant tumor of prostate 358665004 C61 [id number] Caroline Gneiting [facility] [address] [facility] [place] [address] 11/28/2019 09:57:13 02/06/2020 03:54:17 [id number] Momo beard MD, PHD [facility] [address] [facility] [address] [place] [address] 01/02/2020 08:46:59 01/02/2020 14:22:16 Malignant tumor of prostate 036541614 C61 [id number] Momo beard MD, PHD [facility] [address] [facility] [address] [place] [address] 05/01/2020 09:26:51 05/01/2020 12:03:29 Malignant tumor of prostate 538632885 C61 Primary er ectile dysfunction 380993571 N52.9 [id number] Momo beard MD, PHD [facility] [address] [facility] [place] [address] 10/24/2020 10:28:04 10/27/2020 16:45:05 Carcinoma of prostate 140692027 C61 Malignant tumor of prostate 230711097 C61 Primary er ectile dysfunction 797983146 N52.9 Male urina ry stress incontinence 907547097 N39.3 Health Concerns Section Related Observation LastModified by Organization Detai ls LastModified Time None Recorded Concern Status LastModified by Organization Details LastModified Time None Recorded Advance Directives Directive None Recorded Payers Encounter Date Sequence Insurance Name Policy Number Policy Archibald Covered Member ID Archibald Member ID Guarantor Name 11/21/2019 1 [facility] [id number] Julien Ridley [id number] Julien Ridley 11/28/2019 1 [facility] [id number] Julien Ridley [id number] Julien Ridley 01/02/2020 1 [facility] [id number] Julien Ridley [id number] Julien Ridley 05/01/2020 1 [facility] [id number] Julien Ridley [id number] Julien Ridley 10/24/2020 1 [facility] [id number] Julien Ridley [id number] Julien Ridley Notes Date Note Type Note Provider Name and Address Organization Details Recorded Time 11/21/2019 text/html HPI Notes: 59M s /p RALP 11/06/19 for [id number] Heidy 3+4=7 prostate cancer (0/12 LN, -SMS) Overall doing well. Some drainage umbilical incision. Chronic LE edema worse especially R>L. Some hematuria when having BMs. No fever. Eating ok. Minimal pain. CT Cystogram today: small anastomotic leak PSA (07/27/19): 6.5 CONSTANZA: cT1c, 35g (J Carlos) MRI: none Biopsy (08/30/19): 23g, 3/12 cores (LLM, LMB, LMM [place]coe 3+4=7 up to 40%) Pre-op ED: 2 Momo Holliday MD, PHD [address] [place] [address],[address], [place], [address], [facility] 11/21/2019 14:07:42 01/02/2020 text/html HPI Notes: 59M with [id number] [place] 3+4=7 prostate cancer (0/12 LN, -SMS) s/p RALP 11/06/19. Small anastomotic leak, catheter removed 11/28/19. Overall doing well. C/o some leakage with BMs and position changes. Uses multiple depends per day...... LE u/s to eval for dvt last visit was negative PSA Results 07/27/19: 6.5 01/02/20: <0.04 UF: 4 EF: 5/ Pre-op EF: 2/5 Momo Holliday MD, PHD [address] [place] [address], [phone], [facility] 01/02/2020 09:35:54 05/01/2020 text/html HPI Notes: 60M with [id number] [place] 3+4=7 prostate cancer (0/12 LN, -SMS) s/p RALP 11/06/19. Small anastomotic leak, catheter removed 11/28/19. Overall doing well. C/o some leakage with BMs and position changes. Uses 4ppd which is improvement. No problems with incisions. PSA Results 07/27/19: 6.5 01/02/20: <0.04 05/01/20: <0.04 UF: 3/5 EF: 5/ Pre-op EF: 2/5 Momo Holliday MD, PHD [address] [place] [address], [phone], [facility] 05/01/2020 10:48:15 10/24/2020 text/html HPI Notes: 60M with [id number] Heidy 3+4=7 prostate cancer (0/12 LN, -SMS) s/p RALP 11/06/19 Overall doing well. C/o some leakage with BMs and position changes and sexual activity. Uses 4ppd still. No problems with incisions. PSA Results 07/27/19: 6.5 01/02/20: <0.04 05/01/20: <0.04 10/24/20: <0.04 UF: 3/5 EF: 5/5 Pre-op EF: 2/5 Momo Holliday MD, PHD [address] [place] [address],[address], [address], [facility] 10/24/2020 11:30:55
--- OUTSIDE RECORDS SUMMARY | 2023-12-12 11:03 | XMS_ITS | Clinical Summary ---
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 Name Role Phone Munir Sahu MD Primary Care Provider + [facility], [facility] Allergies Active Allergy Reactions Criticality Noted [...] by insurance) 9 mL 09/28/2023 Active Insulin [place], Disposable, (Susana Pen Needle) 32 gauge x [...] 3 10/20/2023 Active valsartan (DIOVAN) 40 mg tabletIndications: [...] Diagnosed Date Coronary artery disease invo lving [place] coronary artery without angina pectoris 10/28/2023 Overview (10/28/2023): 10/28/23: Coronary angiogram and successful planned PCI of distal RCA with SAMANTHA x 1 and POBA of ostial RPDA CAD, multiple vessel 09/26/2023 S/p 3V CABG (SHER-LAD, LISA-ramus, radial-OM), 09/24/2023 Overview (09/24/2023): Dr. Dumont NSTEMI (non-ST elevated myocardial infarction) 0 09/18/2023 Lymphedema of both lower extremities 09/19/2017 Type 2 diabetes mellitus with complication 09/19 Cellulitis of right lower extremity 09/19/2017 Ulcer of lower extremity 02/21/2017 Ulcer of ankle 06/18/2015 Overview (09/21/2017): Overview: Ulcer Ankle R Morbid obesity 06/11/2015 Overview (09/21/2017): Overview: Morbid Obesity Body Mass Index (BMI) >40 Adult Essential hypertension 01/08/2014 Overview (09/21/2017): Overview: Hypertension (HTN) Chronic Chronic peripheral venous hypertension 0 Overview (09/21/2017): Overview: Venous Stasis Ulcer with Inflammation Encounters Date Type Department Care Team Description 12/12/2023 7:00 AM CDT Hospital Encounter [facility] 0 [address] [place] [address] Arrived 12/12/[address] [facility] [address] [place] [address] Gina Jaime Cardiovascular Diagnostic Testing (lvm to confirm 12/13/23 stress test appt) 12/12/2023 Travel 12/08/2023 6:56 AM CDT - 12/08/2023 11:59 PM CDT Hospital Encounter [facility] 0 [place] [address] 12/08/2023 Travel 12/07/2023 6:52 AM CDT - 12/07/2023 11:59 PM CDT Hospital Encounter [facility] [address] [place] [address] 12/07/2023 Travel 12/01/2023 6:55 AM CDT - 12/01/2023 11:59 PM CDT Hospital Encounter [facility] [address] [place] [address] 12/01/2023 Travel 11/30/2023 6:55 AM CDT - 11/30/2023 11:59 PM CDT Hospital Encounter [facility] [address] [place] [address] 11/30/2023 Travel 11/29/2023 9:09 AM CDT - 11/29/2023 11:59 PM CDT Hospital Encounter [facility] [address], [place] [address] Alejandra Lau PA S/p 3V CABG (SHER-LAD, LISA-ramus, radial-OM), 09/23/2023 11/29/2023 Travel 11/28/2023 7:30 AM CDT Home Care Visit [facility] [address] [place] [phone] Elvira Reyes RN SN - OASIS DISCHARGE 11/22/2023 10:45 AM CDT Home Care Visit [facility] [address] [place] [phone] Tyson Mejias, PT PT - DISCIPLINE DISCHARGE 11/21/2023 10:00 AM CDT Home Care Visit [facility] [address] [place] [phone] Irma Hollins, RN SN - HOME VISIT 11/17/2023 7:30 AM CDT Home Care Visit [facility] [address] [place] [phone] Tyson Mejias, PT PT - HOME VISIT 11/15/2023 8:30 AM CDT Home Care Visit [facility] [address] [place] [phone] Tyson Mejias, PT PT - HOME VISIT 11/14/2023 8:30 AM CDT Home Care Visit [facility] [address] [place] [phone] Elvira Reyes RN SN - HOME VISIT 11/14/2023 3:30 AM CDT Home Care Visit [facility] [address] [place] [phone] Ailyn Varghese RN SN - WOUND/OSTOMY CHART CONSULT 11/11/2023 Telephone [facility] [address] [place] [address] Anibal Quigley MD Referral 11/10/2023 8:00 AM CDT Home Care Visit [facility] [address] [place] [phone] Tyson Mejias, PT PT - HOME VISIT 11/09/2023 10:00 AM CDT Home Care Visit [facility] [address] [place] [phone] Isa Cintron RN SN - HOME VISIT 11/09/[address] [facility] [address] [place] [address] Louisa Lopez PA <No scans attached> 11/08/2023 Home Care Visit [facility] [address] [place] [address] Tyson Mejias, PT CARE COORDINATION 11/07/2023 8:15 AM CDT Home Care Visit [facility] [address] [place] [address] Tyson Mejias, PT PT - INITIAL ASSESSMENT 11/07/2023 7:30 AM CDT Home Care Visit [facility] [address] [place] [phone] Lexi Esteves, CHITRA SN - HOME VISIT 11/04/2023 Home Care Visit [facility] [address] [place] [phone] Elvira Reyes RN CARE COORDINATION 11/04/2023 Telephone [facility] [address] [facility] [address] [place] [address] Gregorio Olivia MD Medication Management (amlodipine) 11/02/2023 8:30 AM CDT Home Care Visit [facility] [address] [place] [phone] Nohemy Anna LPN WELFARE DIRECTOR - HOME VISIT 10/31/2023 3:00 PM CDT Home Care Visit [facility] [address] [place] [phone] Evie Young RN SN - HOME VISIT 10/31/2023 Procedure Only [facility] [address] [facility] [address] [place] [phone] Device Check (Remote Leadless Pacemaker Ca... 10/28/2023 5:20 AM CDT - 10/28/2023 1:20 PM CDT Hospital Encounter [facility] [address] [facility] [place] [address] Kamran Li MD Essential hypertension (Primary Dx); CAD, multiple vessel; S/p 3V CABG (SHER-LAD, LISA-ramus, radial-OM), 09/23/2023 Discharge Disposition: Home Self Care 10/28/2023 Home Care Visit [facility] [address] [place] [address] Elvira Reyes, STAFF REGISTERED NURSE NOTE 10/28/2023 Travel 10/27/2023 8:30 AM CDT Home Care Visit [facility] [address] [place] [address] Elvira Reyes, RN SN - HOME VISIT 10/26/2023 10:48 PM CDT - 10/27/2023 12:53 AM CDT Emergency [facility] [address] [place] [address] Misha Styles III, MD Insomnia, unspecified type (Primary Dx); Anxiety Discharge Disposition: Home Self Care 10/26/2023 Travel 10/24/2023 9:00 AM CDT Home Care Visit [facility] [address] [place] [phone] Elvira Reyes RN SN - HOME VISIT 10/21/2023 Home Care Visit [facility] [address] [place] [phone] Elvira Reyes, RN CARE COORDINATION 10/21/2023 Telephone [facility] [address] [place] [address] [place] [address] Quentin Aiken MD Pre Procedure 10/21/2023 Telephone [facility] [address] [place] [address] [place] [address] Jen Greenberg NP Results 10/20/2023 1:50 PM CDT Orders Only [facility] [address] [place] [address] Lab 10/20/2023 1:00 PM CDT Office Visit [facility] [address] [place] [address] Catrava, Jen, BUILDING ADMIN Follow Up (3-4 weeks for post-op CABGsternal [...] 10/19/2023 7:45 AM CDT Home Care Visit [address] [phone] Elvira Reyes RN SN - HOME VISIT 10/17/2023 5:00 AM CDT Home Care Visit [address] [phone] Isa Cintron RN SN - HOME VISIT 10/12/2023 10:00 AM CDT Home Care Visit [address] [phone] Elvira Reyes RN SN - HOME VISIT 10/10/2023 9:45 AM CDT Home Care Visit [address] [phone] Elvira Reyes RN SN - HOME VISIT 10/07/2023 8:00 AM CDT Home Care Visit [address] [phone] Elvira Reyes RN SN - HOME VISIT 10/05/2023 12:30 PM CDT Home Care Visit [address] [phone] Elvira Reyes RN SN - HOME VISIT 10/04/2023 2:00 PM CDT Procedure Only [facility] [address] [place] [address] Device Check (IN CLINIC [employer]TR[employer] LEADLESS... 10/04/2023 Travel 10/03/2023 7:00 AM CDT Home Care Visit [facility] [address] [place] [address] Lexi Esteves, CHITRA SN - HOME VISIT 10/03/2023 1:00 AM CDT Home Care Visit [facility] [address] [place] [address] Ailyn Varghese, CHITRA SN - WOUND/OSTOMY CHART CONSULT 10/03/2023 Telephone [facility] [address] [place] [address] Ailyn Varghese, tape recorder repairer (Vascular and or Wound clinic referral is needed. Supplies with [employer]) 09/30/2023 9:30 AM CDT Home Care Visit [facility] [address] [place] [phone] Lexi Esteves RN SN - OASIS START OF CARE 09/30/2023 Plan of Care Documentation [facility] [address] [place] [address] 09/28/2023 Orders Only [facility] [address] [facility] [address] [place] [address] Alejandra Lau PA <No scans attached> 09/23/2023 2:03 PM CDT Anesthesia Event [facility] [address] [place] [address] Marylou De Anda MD Ludwig, Margaret J, CRNA 09/23/2023 12:45 PM CDT - 09/23/2023 8:[address] [facility] [address] [place] [address] Gregorio Olivia MD CORONARY ARTERY BYPASS X 3 WITH RADIAL HARVEST, AND TEMP VENTRICULAR PACING WIRES 09/18/2023 2:58 AM CDT - 09/28/2023 2:30 PM CDT Hospital Encounter [facility] [address] [place] [address] [facility], U Hospitalist Svc Wendy King DO Kroschel, MD Cristal Gallardo, Munir Muhammad MD S/p 3V CABG (SHER-LAD, LISA-ramus, radial-OM), 09/23/2023 (Primary Dx); Ulcer of left lower extremity with fat layer exposed (HC) [L97.922]; NSTEMI (non-ST elevated myocardial infarction) (HC); CAD, multiple vessel; Type 2 diabetes mellitus with complication (HC); Essential hypertension Discharge Disposition: Home Health 09/17/2023 7:43 PM CDT - 09/18/2023 1:46 AM CDT Emergency [facility] [address] [place] [address] Pritesh Boyer MD NSTEMI (non-ST elevated myocardial infarction) (HC) (Primary Dx) Discharge Disposition: Health Care Facility Not On List 09/17/[address] [facility] [address] [place], [place] [phone] Guzman Lovelace MD 09/17/2023 Travel from Last [...] Care Team (Late st Contact Info) Description 12/13/2023 8:00 AM CDT Hospital Encounter [facility] [address] [facility] [address] [place] [address] Kamran Li MD [address] [place] [address] 12/13/2023 8:15 AM CDT Appointment [facility] [address] [facility] [address] [place] [address] 12/13/2023 1:30 PM CDT Office Visit [facility] [address] [address] Kamran Li MD [address] [place] [address] 12/14/2023 7:00 AM CDT Appointment [facility] [address] [place] [address] 12/15/2023 7:00 AM CDT Appointment [facility] [address] [place] [address] 12/19/2023 9:30 AM CDT Orders Only [facility] [address] [place] [address] 12/21/2023 7:00 AM CDT Appointment [facility] [address], [place] [address] 12/22/2023 7:00 AM CDT Appointment [facility] [address] [place] [address] 01/02/2024 7:00 AM CDT Appointment [facility] 0 [place] [address] 01/04/2024 7:00 AM CDT Appointment [facility] [address] [place] [address] 01/11/2024 7:00 AM CDT Appointment [facility] [address] [place] [address] 01/12/2024 7:00 AM CDT Appointment [facility] [address] [place] [address] 01/12/2024 2:00 PM CDT Office Visit [facility] [place] at [address] [address] Chriss Whittington MD [address] [address] 01/16/2024 7:00 AM CDT Appointment [facility] [address] [place] [address] 01/18/2024 7:00 AM CDT Appointment [facility] [address] [place] [address] 01/19/2024 7:00 AM CDT Appointment [facility] 0 [place] [address] 01/23/2024 7:00 AM CDT Appointment [facility] 0 [place] [address] 01/25/2024 7:00 AM CDT Appointment [facility] 0 [place] [address] 01/26/2024 7:00 AM CDT Appointment [facility] [address] [place] [address] 01/30/2024 7:00 AM CDT Appointment [facility] [address] [place] [address] 02/01/2024 7:00 AM CDT Appointment [facility] [address] [place] [address] 02/02/2024 7:00 AM CDT Appointment [facility] [address] [place] [address] 02/06/2024 7:00 AM DIAMOND DIE MAKER Appointment [facility] [address] [place] [address] 02/08/2024 7:00 AM DIAMOND DIE MAKER Appointment [facility] [address] [place] [address] 02/09/2024 7:00 AM DIAMOND DIE MAKER Appointment [facility] [address] [place] [address] 02/13/2024 7:00 AM DIAMOND DIE MAKER Appointment [facility] [address] [place] [address] 02/15/2024 7:00 AM DIAMOND DIE MAKER Appointment [facility] [address] [place] [address] 02/16/2024 7:00 AM DIAMOND DIE MAKER Appointment [facility] [address], [place] [address] 02/20/2024 7:00 AM DIAMOND DIE MAKER Appointment [facility] [address], [place] [address] 02/27/2024 Procedure Only [facility] [address] [place] [phone] Health Maintenance Due Date Last Done Comments [...] Priority Date/Time Associated Diagnosis Comments SCAN-CARDIAC REHABILITATION 12/12/2023 7:12 AM CDT SCAN-CARDIAC REHABILITATION 12/08/2023 7:01 AM CDT SCAN-CARDIAC [...] THROMBIN TIME STAT 09/23/2023 8:05 PM CDT [facility] CATH INFUSION PR70 Routine 09/23/19 4:34 PM CDT [facility] KIT PR5 Routine 09/23/2023 4:34 PM CDT [facility] AN INTRODUCER 2 LUMEN PERFORMABLE Routine 09/23/2023 4:34 PM CDT [facility] DRSG PR1 Routine 09/23/2023 4:34 PM [...] Case Notes AVERAGE T/FPERFUSION-Confirmed w/Shayna for 1315 #[id number] EK 6/20OR STAFF BYPASS CORONARY ARTERY 01 2023 1:33 PM CDT Case Notes AVERAGE T/FPERFUSION-Confirmed w/Shayna for 1315 #[id number] EK 6/20OR STAFF GLUCOSE METER Timed 09/23/2023 [...] Last 3 Months Results * SCAN-CARDIAC REHABILITATION (12/12/2023 7:12 AM CDT) Only the most recent of6 resultswithin the time period is included. Scanner OTHER * (ABNORMAL) GLUCOSE METER (11/30/2023 7:54 AM CDT) Only the most recent of57 resultswithin the time period is included. GLUCOSE METER 151(H) 65 - 100 mg/dL 11/30/2023 7:[address] [facility] Blood BLOOD SPECIMEN / Unknown 11/30/2023 7:54 AM CDT 11/30/2023 7:59 AM CDT Doctor Unknown CHEMISTRY [facility] [address] [address] * SCAN-CARDIAC STRIP (10/28/2023 10:55 AM CDT) [...] NOW QTc 472 ms BEYOND NOW P [place] 56 degrees BEYOND NOW R [place] 45 degrees BEYOND NOW T [place] 70 degrees BEYOND NOW 10/28/2023 10:3 3 AM CDT 10/28/2023 11:07 AM CDT Kamran Li MD EKG ORD BEYOND NOW [place], [place] * (ABNORMAL) ACTIVATED CLOTTING TIME [id number] ACT (10/28/2023 8:56 AM CDT) ACTIVATED CLOTTING TIME, POCT 304(H) 74 - 125 sec 10/28/2023 12:18 PM CDT [facility] Blood BLOOD SPECIMEN / Unknown 10/28/2023 8:56 AM CDT 10/28/2023 12:18 PM CDT Kamran Li MD HEMATOLOGY [facility] SENDOUT [place]NAL ZIP [phone] [place] [address] * CVL PCI ONLY (10/28/2023 8:19 AM CDT) Anatomical Region Laterality Modality X-Ray Angiograph y 10/28/2023 8:19 AM CDT Narrative Transcriptions Kamran Li MD - 10/28/2023 9:33 AM CDT [facility] Cardiac Catheterization Report Name: JOSE GUADALUPE RIDLEY Event Date: 10/28/2023 08:19 [facility] ID #: [id number] JAKE #: [id number] Diagnostic Physician: KAMRAN LI [facility] Interventional Physician: KAMRAN LI [facility] Referring Physician: GREGORIO OLIVIA Date: [...] inhibit spasm of the radialgraft. Consent & Worthington Protocol The risks, benefits, and alternatives of the procedure were discussed withthe patient and written informed consent was obtained. [place]thing[place] protocol was followed. TIME OUT conducted just prior tostarting procedure confirmed patient identity, site/side, procedure,patient position, and availability of correct equipment and implants (ifapplicable). Staff Name Title KAMRAN LI Operations Program Manager Rafaela Bailey RN Nurse Hung Oviedo RTR Machelle Adler RTR Monitor Jimmie Merino CVBonnie Wedding Florist Procedures ? US Guided Access ? Coronary [...] 1 Distal RCA Drug Eluting Stent Rosalio Kinmundy 3.50 x 22mm Procedure Details Estimated Blood Loss: < 30 ml Specimen Collected: None Level of Sedation Achieved: Moderate Procedure Start: 08:19 Procedure End: : Procedure Time: 63 min Fluoroscopy Time: 16.2 min Cumulative Air Kerma: 1697 mGy DAP: 50322 mGy/cm2 Contrast: Omnipaque, 230 ml Physiologic Data [...] IV Kamran Li Kendra RN 08:39 Heparin 98403 units IV Kamran Li Kendra RN 08:44 Nitroglycerin 300 mcg IC Kamran Li Thomas A 08:45 0.9% NaCL 500 ml Unknown Kamran Li Kendra RN 08:51 Versed (midazolam) 0.5 mg IV [place], Kamran A Brunn, Rafaela RN 09:00 Fentanyl 25 mcg IV Kamran [...] healthcare professional providing the sedation ends personal [id number] time with the patient. The medications listed above were verbally ordered by me and read back tome as documented above. Refer to the procedure log report for additional case details. electronically signed on 10/28/2023 9:33:27 AM with status of Final Kamran Li MD [address], [place] [address] [place] [address] (p) [phone](f) Alejandra FAJARDO CV IMAGING * (ABNORMAL) CBC [...] 440 thou/cu mm 10/28/2023 6:52 AM T [facility] MPV 9.6 6.5 - 11.0 fL 10/28/2023 6:52 AM [facility] NRBC 0.0 % 10/28/2023 6:52 AM [facility] ABS NRBC 0.0 thou /cu mm 10/28/2023 6:52 AM [facility] Blood BLOOD SPECIMEN / Unknown Venipuncture / Unknown 10/28/2023 6:35 AM CDT 10/28/2023 6:45 AM CDT Gregorio Elizabeth MD HEMATOLOGY [facility] SENDOUT INTERNAL ZIP [phone] [place] [address] * (ABNORMAL) Basic Metabolic Panel (10/28/2023 6:35 [...] 0.70 - 1.20 mg/dL 10/28/2023 7:19 AM T [facility] BUN/CREAT RATIO 20 10 - 20 4 7:19 AM CDT [facility] eGFR 88(L) >90 mL/min/1.7 3m2 10/28/2023 7:19 AM T [facility] Comment:As of 2021, eG FR is [...] Gregorio Elizabeth MD CHEMISTRY Performing Organization Address City/[facility]/ZIP Co de Phone Number [facility] SENDOUT INTERNAL ZIP [phone] [place] [phone] * URINALYSIS MICROSCOPIC (10/26/2023 11:46 PM CDT) RBC None Seen 0-2, None Seen /HPF 10/26/2023 11:[address] [facility] WBC 0-2 0-2, 3-5, None Seen /HPF 10/26/2023 11:[address] [facility] BACTERIA Rare None Seen, Rare, Few Bacteria/H PF 10/26/2023 11:[address] [facility] EPITHELIAL CELLS Few None Seen, Few Epi/HPF 10/26/2023 11:[address] [facility] Urine URINE SPECIMEN / Unknown Non-Blood / Unknown 10/26/2023 11:46 PM CDT 10/26/2023 11:49 PM CDT Misha Styles III, MD URINE [facility] [address] [address] * (ABNORMAL) Urinalysis w Reflex Microscopic if Positive (10/26/2023 11:46 PM CDT) COLOR Yellow Yellow Color 10/26/2023 11:[address] [facility] CLARITY Clear Clear Clarity 10/26/2023 11:[address] [facility] SPECIFIC GRAVITY,URINE 1.020 1.010, 1.015, 1.020, 1.025 10/26/2023 11:[address] [facility] PH,URINE 6.0 6.0, 7.0, 8.0, 5.5, 6.5, 7.5, 8.5 10/26/2023 11:[address] [facility] UROBILINOGEN, QUALITATIVE Normal Normal EU/dl 10/26/2023 11:[address] [facility] PROTEIN, URINE Negative Negative mg/dL 10/26/2023 11:[address] [facility] GLUCOSE, URINE >=1000(A) Negative mg/dL 10/26/2023 11:52 PM [facility] KETONES,URINE Negative Negative mg/dL 10/26/2023 11:52 PM [facility] BILIRUBIN,URI NE Negative Negative 10/26/2023 11:52 PM [facility] OCCULT BLOOD,URINE Negative Negative 10/26/2023 11:52 PM [facility] NITRITE Negative Negative 10/26/2023 11:52 PM [facility] LEUKOCYTE ESTERASE Negative Negative 10/26/2023 11:52 PM [facility] Urine URINE SPECIMEN / Unknown Non-Blood / Unknown 10/26/2023 11:46 PM CDT 10/26/2023 11:49 PM CDT Misha Styles III, MD URINE [facility] [address] [address] * (ABNORMAL) CBC WITH AUTO DIFFERENTIAL (10/26/2023 11:29 PM CDT) Only the most recent of3 resultswithin the time period is included. WHITE BLOOD COUNT 6.5 4.5 - 11.0 thou/cu mm 10/26/2023 11:40 PM [facility] RED BLOOD COUNT 4.13(L) 4.30 - 5.90 mil/cu mm 10/26/2023 11:40 PM [facility] HEMOGLOBIN 12.3(L) 13.5 - 17.5 g/dL 10/26/2023 11:40 PM [facility] HEMATOCRIT 39.2 37.0 - 53.0 % 10/26/2023 11:40 PM [facility] MCV 95 80 - 100 fL 10/26/2023 11:40 PM [facility] MCH 29.8 26.0 - 34.0 pg 10/26/2023 11:40 PM [facility] MCHC 31.4(L) 32.0 - 36.0 g/dL 10/26/2023 11:40 PM [facility] RDW 14.7 11.5 - 15.5 % 10/26/2023 11:40 PM [facility] PLATELET COUNT 179 140 - 440 thou/cu mm 10/26/2023 11:40 PM [facility] MPV 9.4 6.5 - 11.0 fL 10/26/2023 11:40 PM [facility] % NEUT 64.9 % 10/26/2023 11:40 PM [facility] % LYMPH 14.5 % 10/26/2023 11:40 PM [facility] % MONO 8.6 % 10/26/2023 11:40 PM [facility] % EOS 11.7 % 10/26/2023 11:40 PM [facility] % BASO 0.3 % 10/26/2023 11:40 PM [facility] ABSOLUTE NEUTROPHILS 4.2 1.7 - 7.0 thou/cu mm 10/26/2023 11:40 PM [facility] ABSOLUTE LYMPHOCYTES 0.9 0.9 - 2.9 thou/cu mm 10/26/2023 11:40 PM [facility] ABSOLUTE MONOCYTES 0.6 <0.9 thou/cu mm 10/26/2023 11:[address] [facility] ABSOLUTE EOSINOPHILS 0.8(H) <0.5 thou/cu mm 10/26/2023 11:[address] [facility] ABSOLUTE BASOPHILS 0.0 <0.3 thou/cu mm 10/26/2023 11:[address] [facility] Blood BLOOD SPECIMEN / Unknown Venipuncture / Unknown 10/26/2023 11:29 PM CDT 10/26/2023 11:31 PM CDT Misha Styles III, MD HEMATOLO GY [facility] [address] [address] * SCAN-CARDIAC STRIP (09/28/2023 8:00 AM CDT) Scanner OTHER * PLATELET COUNT (09/28/2023 4:53 AM CDT) Only the most recent of10 resultswithin the time period is included. PLATELET COUNT 239 140 - 440 thou/cu mm 09/28/2023 5:32 AM CDT [facility] MPV 9.2 6.5 - 11.0 fL 09/28/2023 5:32 AM CDT [facility] Blood BLOOD SPECIMEN / Unknown Venipuncture / Unknown 09/28/2023 4:53 AM CDT 09/28/2023 5:21 AM CDT Sandhya FAJARDO HEMATOLOGY [facility] SENDOUT INTERNAL ZIP [address] [place] [phone] * WHITE BLOOD COUNT (09/28/2023 4:53 AM CDT) Only the most recent of4 resultswithin the time period is included. WHITE BLOOD COUNT 7.3 4.5 - 11.0 thou/cu mm 09/28/2023 5:32 AM CDT [facility] NRBC 0.0 % 09/28/2023 5:32 AM CDT [facility] ABS NRBC 0.0 thou /cu mm 09/28/2023 5:32 AM CDT [facility] Blood BLOOD SPECIMEN / Unknown Venipuncture / Unknown 09/28/2023 4:53 AM CDT 09/28/2023 5:21 AM CDT Sandhya Aragon Kirstie FAJARDO HEMATOLOGY Performing Organization Address [facility] Co de Phone Number [facility] SENDOUT INTERNAL ZIP [phone] [place] [phone] * (ABNORMAL) HEMOGLOBIN (09/28/2023 4:53 AM CDT) Only the most recent of10 resultswithin the time period is included. HEMOGLOBIN 11.6(L) 13.5 - 17.5 g/dL 09/28/2023 5:32 AM CDT [facility] MCV 91 80 - 100 fL 09/28/2023 5:32 AM CDT [facility] Blood BLOOD SPECIMEN / Unknown Venipuncture / Unknown 09/28/2023 4:53 AM CDT 09/28/2023 5:21 AM CDT Sandhya Aragon Kirstie FAJARDO HEMATOLOG[facility] Performing Organization Address [facility] de Phone Number [facility] [id number] [place] [phone] * SCAN-CARDIAC STRIP (09/27/2023 7:43 PM CDT) Scanner OTHER * ECHO TTE LIMITED W CONTRAST W COLOR W DOPPLER (09/27/2023 12:26 PM CDT) EJECTION FRACTION 55% PROSOLV Anatomical Region Laterality Modality Ultrasound 09/27/2023 11:3 8 AM CDT Narrative 09/27/2023 12:[address]T [address] [address] Main: [email or web address] ? Transthoracic Echo Report JOSE GUADALUPE RIDLEY ID: [id number] Age: 63 : 1960 Ordering Provider: RAMANDEEP CHONG Exam Date: 09/27/2023 11:38 Gender: M Logistics Operations Director: [facility] Height: 68 in BSA: 2.46 m?? [...] mmHg Rusty Major MD (Electronically Signed) [facility] Accredited Site Final Date: 27 September 2023 12:41 ICD-10 Codes: Procedure Note Rusty Major MD - 09/27/[address] [address] Main: [email or web address] Transthoracic Echo Report JOSE GUADALUPE RIDLEY ID: [id number] Age: 63 : 1960 Ordering Provider:RAMANDEEP CHONG Exam Date: 09/27/2023 11:38 Gender: M Logistics Operations Director: [facility] Height: 68 in BSA: 2.46 m?? [...] mmHg Rusty Major MD (Electronically Signed) [facility] Accredited Site Final Date: 27 September 2023 12:41 ICD-10 Codes: Ramandeep Chong BUILDING ADMIN ECHO ORD * POTASSIUM (09/27/2023 12:12 PM CDT) Only the most recent of4 resultswithin the time period is included. POTASSIUM 4.6 3.5 - 5.1 mmol/L 09/27/2023 12:45 PM CDT [facility] Blood BLOOD SPECIMEN / Unknown Butterfly / Unknown 09/27/2023 12:12 PM CDT 09/27/2023 12:28 PM CDT Gregorio Elizabeth MD CHEMISTRY [facility] SENDOUT INTERNAL [address]IP [address] [address] [place] [address] * SCAN-CARDIAC STRIP (09/27/2023 8:00 AM CDT) [...] Juanito Romeo MD ? 09/26/2023 ??5:44 PM [facility] Electrophysiology Laboratory Leadless Pacemaker (AV [...] fluoroscopic image from device in [place] and [place] projection. The patient tolerated the procedure well [...] procedure. Attending Signature: Juanito Romeo M.D. Cardiac Gel Coater [facility] Manan Steele NP AIR TRANSPORTATION PROVIDER ORD * EP PPM (09/26/2023 4:54 PM CDT) Anatomical Region Laterality Modality Other 09/26/2023 4:54 PM CDT Manan Steele NP CV IMAGING * SCAN-CARDIAC STRIP (09/26/2023 8:36 AM CDT) Scanner OTHER * (ABNORMAL) Protime-INR (09/26/2023 5:26 AM CDT) Only the most recent of7 resultswithin the time period is included. INR 1.2 <1.3 09/26/2023 5:38 AM CDT [facility] PROTIME 13.3(H) 10.3 - 12.3 sec 09/26/2023 5:38 AM CDT [facility] Blood BLOOD SPECIMEN / Unknown Venipuncture / Unknown 09/26/2023 5:26 AM CDT 09/26/2023 5:30 AM CDT Narrative [facility] - 09/26/2023 5:38 AM CDT ?Therapeutic [...] Gregorio Elizabeth MD HEMATOLOGY Performing Organization Address [facility] de Phone Number [facility] SENDOUT INTERNAL ZIP [phone] [place] [phone] * SCAN-PACER (09/26/2023 12:00 AM CDT) Narrative 09/26/2023 12:00 AM CDT Ordered by an unspecified provider. Other Clinical Staff OTHER * SCAN-CARDIAC STRIP (09/25/2023 8:00 AM CDT) Scanner OTHER * MAGNESIUM (09/25/2023 5:07 AM CDT) Only the most recent of8 resultswithin the time period is included. MAGNESIUM 2.1 1.6 - 2.4 mg/dL 09/25/2023 5:34 AM CDT [facility] Blood BLOOD SPECIMEN / Unknown Non-Lab Venipuncture / Unknown 09/25/2023 5:07 AM CDT 09/25/2023 5:15 AM CDT Gregorio Elizabeth MD CHEMISTRY Performing Organization Address [facility]/ZIP Co de Phone Number [facility] SENDOUT INTERNAL [facility] [phone] [place] [address] * SCAN-CARDIAC STRIP (09/24/2023 11:32 PM CDT) [...] EXAM: XR CHEST 1 VIEW PORTABLE LOCATION: [facility] MEDICAL IMAGING DATE: 09/24/2023 INDICATION: ET tube [...] EXAM: XR CHEST 1 VIEW PORTABLE LOCATION: [facility] MEDICAL IMAGING DATE: 09/24/2023 INDICATION: ET tube [...] - 1.27 mmol/L 09/24/2023 4:35 AM CDT [facility] Blood BLOOD SPECIMEN / Unknown Non-Lab Venipuncture / Unknown 09/24/2023 4:20 AM CDT 09/24/2023 4:32 AM CDT Gregorio Elizabeth MD CHEMISTRY Performing Organization Address [facility]/ZIP Co de Phone Number [facility] SENDOUT INTERNAL ZIP [phone] [place] [phone] * (ABNORMAL) Arterial Blood Gas (09/24/2023 12:16 AM CDT) PH, ARTERIAL 7.33(L) 7.35 - 7.45 09/24/2023 12:25 AM T [facility] PCO2, ARTERIAL 52(H) 35 - 48 mmHg 09/24/2023 12:25 AM T [facility] PO2, ARTERIAL 164(H) 83 - 108 mmHg 09/24/2023 12:25 AM T [facility] HCO3, ARTERIAL 27 21 - 28 mmol/L 09/24/2023 12:25 AM T [facility] BASE EXCESS, ARTERIAL 0.6 -2.0 - 3.0 09/24/2023 12:25 AM T [facility] O2 SATURATION, ARTERIAL 100(H) 94 - 98 % 09/24/2023 12:25 AM T [facility] INSPIRED O2 95 09/24/2023 12:25 AM T [facility] Comment:Unit of Measure: Lit ers (L) if <=20; Percent (%) if >20 PATIENT TEMPERATURE 36.9 Degrees C 09/24/2023 12:25 AM T [facility] Blood ARTERIAL BLOOD SPECIMEN / Unknown Arterial / Unknown 09/24/2023 12:16 AM CDT 09/24/2023 12:21 AM CDT Gregorio Elizabeth MD CHEMISTRY [facility] SENDOUT INTERNAL ZIP [phone] [place] [address] * SCAN-CARDIAC STRIP (09/24/2023 12:00 AM CDT) Scanner OTHER * Thrombin Time - Immediate Postop (09/23/2023 9:45 PM CDT) Only the most recent of2 resultswithin the time period is included. THROMBIN TIME 15 <16 sec 09/23/2023 10:37 PM CDT [facility] Blood BLOOD SPECIMEN / Unknown Non-Lab Venipuncture / Unknown 09/23/2023 9:45 PM CDT 09/23/2023 9:55 PM CDT Gregorio Elizabeth MD HEMATOLOGY Performing Organization Address City/[facility]/ZIP Co de Phone Number [facility] SENDOUT INTERNAL ZIP [phone] [place] [phone] * (ABNORMAL) APTT - Immediate Postop (09/23/2023 9:45 PM CDT) Only the most recent of15 resultswithin the time period is included. APTT 23(L) 28 - 36 sec 09/23/2023 10:37 PM CDT [facility] Blood BLOOD SPECIMEN / Unknown Non-Lab Venipuncture / Unknown 09/23/2023 9:45 PM CDT 09/23/2023 9:55 PM CDT Narrative [facility] - 09/23/2023 10:37 PM CDT Therapeutic Range: 57-87 seconds Gregorio Elizabeth MD HEMATOLOGY Performing Organization Address City/[facility]/ZIP Co de Phone Number [facility] SENDOUT INTERNAL ZIP [address] [place] [address] * (ABNORMAL) Fibrinogen, Quantitative - Immediate Postop (09/23/2023 9:45 PM CDT) Only the most recent of2 resultswithin the time period is included. FIBRINOGEN,MOHIT NTITATIVE 453(H) 193 - 401 mg/dL 09/23/2023 10:37 PM CDT [facility] Blood BLOOD SPECIMEN / Unknown Non-Lab Venipuncture / Unknown 09/23/2023 9:45 PM CDT 09/23/2023 9:55 PM CDT Gregorio Elizabeth MD HEMATOLOGY [facility] SENDOUT INTERNAL ZIP [phone] [place] [address] * (ABNORMAL) Cardiac Thromboelastography (09/23/2023 8:05 PM CDT) Only the most recent of2 resultswithin the time period is included. DESTINI REASON Diffuse Cardiac Bleeding 09/23/2023 10:17 PM CDT [facility] INTEM CT 212(H) 122 - 208 s 09/23/2023 10:17 PM CDT [facility] INTEM CFT 71 45 - 110 s 09/23/2023 10:17 PM CDT [facility] INTEM ALPHA 75 70 - 81 ?? 09/23/2023 10:17 PM CDT [facility] INTEM A10 57 46 - 67 mm 09/23/2023 10:17 PM CDT [facility] INTEM A20 63 51 - 72 mm 09/23/2023 10:17 PM CDT [facility] INTEM MCF 64 51 - 72 mm 09/23/2023 10:17 PM CDT [facility] INTEM ML 7 % 09/23/2023 10:17 PM CDT [facility] INTEM LI30 99 % 09/23/2023 10:17 PM CDT [facility] EXTEM CT 108(H) 43 - 82 s 09/23/2023 10:17 PM CDT [facility] EXTEM CFT 81 48 - 127 s 09/23/2023 10:17 PM CDT [facility] EXTEM ALPHA 74 65 - 80 ?? 09/23/2023 10:17 PM CDT [facility] EXTEM A10 60 46 - 67 mm 09/23/2023 10:17 PM CDT [facility] EXTEM A20 66 50 - 70 mm 09/23/2023 10:17 PM CDT [facility] EXTEM MCF 66 52 - 70 mm 09/23/2023 10:17 PM CDT [facility] EXTEM ML 7 % 09/23/2023 10:17 PM CDT [facility] EXTEM LI30 100 % 09/23/2023 10:17 PM CDT [facility] FIBTEM CT 116 s 09/23/2023 10:17 PM CDT [facility] FIBTEM CFT 593 s 09/23/2023 10:17 PM CDT [facility] FIBTEM ALPHA 67 ?? 09/23/2023 10:17 PM CDT [facility] FIBTEM A10 20 7 - 24 mm 09/23/2023 10:17 PM CDT [facility] FIBTEM A20 22 7 - 24 mm 09/23/2023 10:17 PM CDT [facility] FIBTEM MCF 23 7 - 24 mm 09/23/2023 10:17 PM CDT [facility] FIBTEM ML 0 % 09/23/2023 10:17 PM CDT [facility] FIBTEM LI30 100 % 09/23/2023 10:17 PM CDT [facility] HEPTEM CT 248(H) 122 - 208 s 09/23/2023 10:17 PM CDT [facility] HEPTEM CFT 83 45 - 110 s 09/23/2023 10:17 PM CDT [facility] HEPTEM ALPHA 73 70 - 81 ?? 09/23/2023 10:17 PM CDT [facility] HEPTEM A10 51 mm 09/23/2023 10:17 PM CDT [facility] HEPTEM A20 53 51 - 72 mm 09/23/2023 10:17 PM CDT [facility] HEPTEM MCF 54 51 - 72 mm 09/23/2023 10:17 PM CDT [facility] HEPTEM ML 10 % 09/23/2023 10:17 PM CDT [facility] Blood BLOOD SPECIMEN / Unknown Non-Lab Venipuncture / Unknown 09/23/2023 8:05 PM CDT 09/23/2023 8:13 PM CDT [employer] [facility] SENDOUT INTERNAL ZIP [phone] [place] [address] * CVC TRIPLE LUMEN, HCHG STOPCOCK PR5, [...] ??Comment: Supplemental O2: supplemental oxygen. ??Comment:. Vessel National Van Truck Driver Additional supplies used to locate vessel: no [...] . Video documentation of the exam on [employer] PRECPB EXAM The ZACHARY probe was [...] exam unchanged from pre-CPB. Images saved to room service food server. Teeth and oropharynx unchanged from pre-op. Probe removed intact without signs of damage. This exam supervised by Marylou De Anda MD Anesthesiologist ?? Marylou De Anda MD ANESTHESIA PX NOTE ORDERABLES * HCHG TUBE PR1, HCHG INSTRUMENT DISP PR10, HCHG STYLET PR1, HCHG MOUTHPIECE PR1 (09/23/2023 2:41 PM CDT) Valarie Rg, POLISHING MACHINE TENDER - 09/23/2023 2:41 PM CDT Valarie Saini [...] >90 mL/min/1.7 3m2 09/22/2023 3:42 PM CDT [facility] Comment:As of 2021, eG FR is calculated by the CKD-EPI creatinine equation without race adjustment. ??eGFR can be influenced by muscle mass, exercise, and diet. ??The reported eGFR is an estimation only and is only applicable if the renal function is stable. CREATININE 1.13 0.70 - 1.20 mg/dL 09/22/2023 3:42 PM CDT [facility] Blood BLOOD SPECIMEN / Unknown Butterfly / Unknown 09/22/2023 3:12 PM CDT 09/22/2023 3:16 PM CDT Ramandeep Chappellshay WISEMAN CHEMISTRY Performing Organization Address City/[facility]/ZIP Co de Phone Number [facility] SENDOUT INTERNAL ZIP [phone] [place] [phone] * RED BLOOD CELLS EA UNIT (09/22/2023 9:35 AM CDT) Only the most recent of2 resultswithin the time period is included. CROSSMATCH Compatible Compatible [facility] BLOOD BANK PRODUCT BLOOD TYPE O Rh Negative [facility] BLOOD BANK PRODUCT ID NUMBER [id number] [facility] BLOOD BANK PRODUCT STATUS /Relea sed [facility] BLOOD BANK PRODUCT DESCRIPTION RBC -1 LR [facility] BLOOD BANK PRODUCT CODE [id number] [facility] BLOOD BANK Ramandeep Pastoralyssia Chong BUILDING ADMIN BLOOD BANK Performing Organization Address City/[facility]/ZIP Co de Phone Number [facility] BLOOD BANK [address] [place] [phone] * EXTRA TUBE LAVENDER (09/22/2023 9:34 AM CDT) Blood BLOOD SPECIMEN / Unknown Extra Tube / Unknown 09/22/2023 9:34 AM CDT 09/22/2023 10:58 AM CDT Doctor Unknown LABORATORY [facility] SENDOUT INTERNAL ZIP [address] [place] [address] * RBC W TYPE AND SCREEN (09/22/2023 9:34 AM CDT) ABORH O Rh Negative 09/22/2023 11:35 AM CDT [facility] BLOOD BANK ANTIBODY SCREEN Negative Negative 09/22/2023 11:35 AM CDT [facility] BLOOD BANK SPECIMEN EXPIRATION DATE/TIME 09/25/23 23:59 09/22/2023 11:35 AM CDT [facility] BLOOD BANK Blood BLOOD SPECIMEN / Unknown Venipuncture / Unknown 09/22/2023 9:34 AM CDT 09/22/2023 10:49 AM CDT Ramandeep Chong NP BLOOD BANK Performing Organization Address [facility]/ZIP Co de Phone Number [facility] BLOOD BANK [address] [place] [address] * SCAN-CARDIAC STRIP (09/22/2023 8:13 AM CDT) Scanner OTHER * HEMATOCRIT (09/22/2023 4:55 AM CDT) Only the most recent of4 resultswithin the time period is included. HEMATOCRIT 45.1 37.0 - 53.0 % 09/22/2023 5:21 AM CDT [facility] Blood BLOOD SPECIMEN / Unknown Venipuncture / Unknown 09/22/2023 4:55 AM CDT 09/22/2023 5:18 AM CDT Narrative [facility] - 09/22/2023 5:21 AM CDT Every morning while on IV heparin. Every morning while on IV heparin. Necessary every morning while on IV heparin. Wendy King DO HEMATOLOGY [facility] SENDOUT INTERNAL ZIP [phone] [place] [address] * SCAN-CARDIAC STRIP (09/22/2023 1:22 AM CDT) [...] CDT 1. ?Cholelithiasis. 2. ?Please refer to package sealer machine's dictation for the cardiac CT report. Narrative 09/22/2023 3:42 PM CDT Results are automatically released to your [email or web address]) account once available, in compliance with federal regulations. ??This means that you may see your results before your provider has had a chance to review them. ??Please allow 2-3 business days for your provider to comment on the results. CT ANGIOGRAM OF THE THORACIC AORTA, 09/20/2023 INDICATION: Pre-coronary artery bypass grafting. CONCLUSIONS: This is a dual read study - please review [facility] over-read below for incidental non cardiac [...] Image post processing was performed on a [employer] Workstation. Images were reconstructed at a slice [...] for incidental non-cardiac findings. Monique Finn MD [facility] AB/car For Patients: As a result of the Cures Act, medical imaging exams and procedure reports are released immediately into your electronic medical record. You may view this report before your referring provider. If you have questions, please contact your health care provider. EXAM: OVERREAD: DETAILED [facility] EXTRACARDIAC OVERREAD OF CARDIAC CT LOCATION: [facility] MEDICAL IMAGING DATE: 09/20/2023 INDICATION: Preoperative aortic [...] EXAM: US ARTERIAL UPPER EXTREMITY LEFT LOCATION: [facility] MEDICAL IMAGING DATE: 09/20/2023 INDICATION: Severe coronary [...] EXAM: US ARTERIAL UPPER EXTREMITY LEFT LOCATION: [facility] MEDICAL IMAGING DATE: 09/20/2023 INDICATION: Severe coronary [...] US VEIN MAPPING LOWER EXTREMITY BILATERAL LOCATION: [facility]D MEDICAL IMAGING DATE: 09/20/2023 INDICATION: Graft suitability [...] patent, venous diameters as describedabove. Ramandeep Chong BUILDING ADMIN US * SCAN-CARDIAC STRIP (09/20/2023 8:44 AM [...] Li MD - 09/19/2023 5:59 PM CDT [facility] Cardiac Catheterization Report Name: JOSE GUADALUPE RIDLEY Event Date: 09/19/2023 17:17 Excellian ID #: [id number] JAKE #: [id number] Diagnostic Physician: KAMRAN LI [facility] Primary Workforce Planning Analyst: RACHID MÉNDEZ Referring Physician: Date: 1960 Gender: [...] < 70 ;Triglycerides < 100 Consent & Worthington Protocol The risks, benefits, and alternatives of the procedure were discussed withthe patient and written informed consent was obtained. Worthing[place] protocol was followed. TIME OUT conducted just prior tostarting procedure confirmed patient identity, site/side, procedure,patient position, and availability of correct equipment and implants (ifapplicable). Staff Name Title KAMRAN LI Diagnostic Workforce Planning Analyst Rafaela Bailey RN Nurse Dang Ghosh RN [...] min Cumulative Air Kerma: 493 mGy DAP: 05943 mGy/cm2 Contrast: Omnipaque, 50 ml Visipaque 320, [...] A 17:22 Heparin 5000 units IV Kamran iL Kathy RN I personally monitored the patient?s conscious sedation during theprocedure. Conscious sedation starts with the first sedation medication dose ofFentanyl or Versed and ends when the procedure is completed, the patientis stable for recovery status, and the physician or other qualified healthcare professional providing the sedation ends personal [id number] time with the patient. The medications listed above were verbally ordered by me and read back tome as documented above. Refer to the procedure log report for additional case details. electronically signed on 09/19/2023 5:59:16 PM with status of Final Kamran Li MD [address], [place] [address] [place] [address] (p) [phone](f) Quentin Aiken MD CV IMAGING * ECHO TTE COMPLETE W CONTRAST (09/19/2023 10:48 AM CDT) EJECTION FRACTION 45-50% PROSOLV Anatomical Region Laterality Modality Ultrasound 09/19/2023 10:1 2 AM CDT Narrative 09/19/2023 11:[address]T [address] [address] Main: [email or web address] ? Transthoracic Echo Report ARISTIDESJOSE GUADALUPE NATHAN Federico ID: [id number] Age: 63 : 1960 Ordering Provider: WENDY KING Exam Date: 09/19/2023 10:12 Gender: M Logistics Operations Director: [facility] Height: 71 in BSA: 2.57 m?? BP: 141 / 82 Weight: 318 lbs BMI: 44.4 kg/m?? HR: 85 Location: Inpatient (Portable) Rhythm: Normal Sinus Rhythm Procedure Components: 2D imaging with contrast, Color Doppler, Spectral Doppler Indications: Chest pain chest pressure chest tightening Technical Quality: Fair Contrast: Definity Constrast Dose (ml): 0.3 [facility]#: [id number] Final Conclusion 1. Technically challenging echocardiogram. 2. [...] 0.00 Rusty Major MD (Electronically Signed) [facility] Accredited Site Final Date: 19 September 2023 11:44 ICD-10 Codes: Procedure Note Rusty Major MD - 09/19/2023 [place] [address] Main: [email or web address] Transthoracic Echo Report ARISTIDESJAC JOSE GUADALUPE Federico ID: [id number] Age: 63 : 1960 Ordering Provider:WENDY KING Exam Date: 09/19/2023 10:12 Gender: M Logistics Operations Director: [facility] Height: 71 in BSA: 2.57 m?? BP: 141 / 82 Weight: 318 lbs BMI: 44.4 kg/m?? HR: 85 Location: Inpatient (Portable) Rhythm: Normal Sinus Rhythm Procedure Components: 2D imaging with contrast, Color Doppler, SpectralDoppler Indications: Chest pain chest pressure chest tightening Technical Quality: Fair Contrast: Definity Constrast Dose (ml): 0.3 [facility]#: [id number] Final Conclusion 1. Technically challenging echocardiogram. 2. [...] 0.00 Rusty Major MD (Electronically Signed) [facility] Accredited Site Final Date: 19 September 2023 [...] 6.5(H) <=6.4 % 09/18/2023 7:22 AM CDT [facility] Blood BLOOD SPECIMEN / Unknown Venipuncture / Unknown 09/18/2023 4:17 AM CDT 09/18/2023 4:27 AM CDT Narrative [facility] - 09/18/2023 7:22 AM CDT ? (<5.7%) ?Normal ? (5.7% to 6.4%) ? Indicates prediabetes ? (>=6.5%) ? Confirms diabetes Falsely low levels may be seen with: Recent Transfusion, Recent Significant Blood Loss, Hemolytic Diseases, or Falsely elevated levels may be seen with: Untreated Anemias, Splenectomy Wendy King DO CHEMISTRY [facility] SENDOUT INTERNAL [facility] [phone] [place] [address] * LIPID PANEL (09/18/2023 4:17 AM CDT) CHOLESTEROL,TOTAL 174 100 - 199 mg/dL 09/18/2023 4:54 AM CDT [facility] Comment: Cholesterol, Total Reference Ranges Desirable <200 mg/dL Borderline 200-239 mg/dL High >=240 mg/dL TRIGLYCERIDES 105 <150 mg/dL 09/18/2023 4:54 AM CDT [facility] HDL CHOLESTEROL 42 >40 mg/dL 4:54 AM CDT [facility] NON-HDL CHOLESTEROL 132 <145 mg/dl 09/18/2023 4:54 AM CDT [facility] CHOL/HDL RATIO 4.14 <4.50 09/18/2023 4:54 AM CDT [facility] LDL CHOLESTEROL 111 <=130 mg/dL 09/18/2023 4:54 AM CDT [facility] VLDL CHOLESTEROL 21 <=30 mg/dL 09/18/2023 4:54 AM CDT [facility] PROVIDER ORDERED STATUS RANDOM 09/18/2023 4:54 AM CDT [facility] Blood BLOOD SPECIMEN / Unknown Venipuncture / Unknown 09/18/2023 4:17 AM CDT 09/18/2023 4:27 AM CDT Wendy King DO CHEMISTRY [facility] SENDOUT INTERNAL ZIP [address] [address] [place] [address] * SCAN-CARDIAC STRIP (09/18/2023 3:10 AM CDT) Scanner OTHER * SCAN-CARDIAC STRIP (09/18/2023 12:00 AM CDT) Narrative 09/18/2023 12:00 AM CDT Ordered by an unspecified provider. Other Clinical Staff OTHER * (ABNORMAL) TROPONIN T (HS) ONE TIME (09/17/2023 9:52 PM CDT) TROPONIN T HS 156(H) 6-15 ng/L ng/L 09/17/2023 10:[address] [facility] Blood BLOOD SPECIMEN / Unknown Venipuncture / Unknown 09/17/2023 9:52 PM CDT 09/17/2023 9:53 PM CDT Pritesh Boyer MD CHEMISTRY [facility] [address] [address] * (ABNORMAL) TROPONIN T (HS) ACUTE W/2HR REFLEX (09/17/2023 7:55 PM CDT) [facility] TROPONIN T HS 74(H) 6-15 ng/L ng/L 09/17/2023 8:[address] [facility] Blood BLOOD SPECIMEN / Unknown IV Start / Unknown 09/17/2023 7:55 PM CDT 09/17/2023 7:56 PM CDT [facility] - 09/17/2023 8:29 PM CDT hs-cTnT (Elecsys [...] patient population. Pritesh Boyer MD CHEMISTRY [facility] [address] [place] [address] * (ABNORMAL) COMP METABOLIC PANEL (09/17/2023 7:55 PM T) SODIUM 138 136 - 145 mmol/L 09/17/2023 8:29 PM [facility] POTASSIUM 4.5 3.5 - 5.1 mmol/L 09/17/2023 8:29 PM [facility] CHLORIDE 102 98 - 107 mmol/L 09/17/2023 8:29 PM [facility] CO2,TOTAL 27 22 - 29 mmol/L 09/17/2023 8:29 PM [facility] ANION GAP 9 5 - 18 09/17/2023 8:29 PM [facility] GLUCOSE 229(H) 70 - 99 mg/dL 09/17/2023 8:29 PM [facility] CALCIUM 9.2 8.8 - 10.2 mg/dL 09/17/2023 8:29 PM [facility] BUN 17 8 - 23 mg/dL 09/17/2023 8:29 PM [facility] CREATININE 0.93 0.70 - 1.20 mg/dL 09/17/2023 8:29 PM [facility] BUN/CREAT RATIO 18 10 - 20 8:29 PM [facility] eGFR >90 >90 mL/min/1.7 3m2 09/17/2023 8:29 PM [facility] Comment:As of 2021, eG FR is calculated by the CKD-EPI creatinine equation without race adjustment. ??eGFR can be influenced by muscle mass, exercise, and diet. ??The reported eGFR is an estimation only and is only applicable if the renal function is stable. ALBUMIN 3.9(L) 4.0 - 4.9 g/dL 09/17/2023 8:29 PM [facility] PROTEIN,TOTAL 7.2 6.0 - 8.0 g/dL 09/17/2023 8:29 PM [facility] BILIRUBIN,TOTAL 0.5 0.0 - 1.2 mg/dL 09/17/2023 8:[address] [facility] ALK PHOSPHATASE 114 40 - 129 IU/L 09/17/2023 8:[address] [facility] ALT (SGPT) 30 10 - 50 IU/L 09/17/2023 8:[address] [facility] AST (SGOT) 37 10 - 50 IU/L 09/17/2023 8:[address] [facility] Blood BLOOD SPECIMEN / Unknown IV Start / Unknown 09/17/2023 7:55 PM CDT 09/17/2023 7:56 PM CDT Pritesh Boyer MD CHEMISTRY [facility] [address] [place] [address] from Last 3 Months Advance Directives * [...] Code Status Discussion: Not Discussed Care Teams [employer] Relationship Specialty Start Date End Date Munir Sahu MD [address] [place] [address] PCP - General Family Practice 09/17/[address] [address] 09/28/23
--- OUTSIDE RECORDS SUMMARY | 2023-12-12 11:03 | XMS_ITS | Clinical Summary ---
Author Organization [facility] Address [address] [place] [address] Care Team Providers Care Director Of Parks And Recreation Name Role Phone Munir Sahu MD Primary Care Provider [phone] Allergies Active Allergy Reactions Criticality Noted Date [...] Advance Directives For more information, please contact: [phone] * Full Code (Latest Code Status on File) Date Activated Date Inactivated Comments 11/06/2019 2:19 PM 11/07/2019 9:06 PM All basic and advanced life-sustaining interventions are performed as appropriate Question Answer Comments Code status determined by: Unable to det ermine; FULL CODE until documents or legal decision maker available Care Teams Director Of Parks And Recreation Relationship Specialty Start Date End Date Munir Sahu MD PCP - General Family Practice 10/22/19
--- OUTSIDE RECORDS SUMMARY | 2023-12-12 11:03 | XMS_ITS | Referral Summary ---
Author Organization [facility] Address [address] [place] [address] Care Team Providers Care Explosive Operator Supervisor Name Role Phone Munir Sahu MD [...] Advance Directives For more information, please contact: [phone] * Full Code (Latest Code Status on File) Date Activated Date Inactivated Comments 11/06/2019 2:19 PM 11/07/2019 9:06 PM All basic and advanced life-sustaining interventions are performed as appropriate Question Answer Comments Code status determined by: Unable to det ermine; FULL CODE until documents or legal decision maker available Care Teams Explosive Operator Supervisor Relationship Specialty Start Date End Date Munir Sahu MD PCP - General Family Practice 10/22/19
--- OUTSIDE RECORDS SUMMARY | 2023-12-12 11:04 | XMS_ITS ---
Author Organization [facility] Address [address] [place] [address] Care Team Providers Care Laborer Shellfish Processing Name Role Phone Unavailable Unavailable Unavailable Surgery Details Not on file Complications Check Surgery Details section. Procedure Estimated Blood Loss Check Surgery Details section. Procedure Findings Check Surgery Details section. Procedure Specimens Taken Check Surgery Details section.
--- OUTSIDE RECORDS SUMMARY | 2023-12-12 11:04 | XMS_ITS | Referral Summary ---
Author Organization [facility] Address [address] [place] [address] Care Team Providers Care Manager Concrete Name Role Phone Elsewhere, Pcp Primary Care Provider Unavailabl e Source Comments Patient records contain information from all sites at [facility]. For routine questions regarding patient records, call [phone] during business hours, M-F 8:00 AM - 5:00 PM Central Time. Record requests for emergency care only can be directed to [phone] at any time.[facility] Encounters Date Type Department Care Team Description 10/26/2023 10:48 PM CDT - 10/26/2023 11:59 PM CDT Emergency [facility] [address] [place] [address] Hyperglycemia (Primary Dx) Discharge Disposition: Home or Self Care 09/17/2023 7:59 PM CDT - 09/17/2023 11:59 PM CDT Emergency [facility] [address] [place] [address] Non-ST Elevation Myocardial Infarction (HCC) (Primary Dx) Discharge Disposition: Home or Self Care from Last 3 Months Allergies Active Allergy Reactions Criticality Noted Date Comments Dimethicone-Petrolatum Rash 02/01/2014 Horse [place] Rash 07/16/2016 Silver Sulfate-Foam Bandage Rash 02/02/20 [...] mouth. 11/07/2019 Active FreeStyle João 14 Day [place] misc 02/17/2021 Active FreeStyle João 14 Day [...] Comments Blood Pressure 160/85 04/17/2021 1:03 PM MEAT MANAGER Pulse 74 04/17/2021 1:03 PM MEAT MANAGER Temperature 36.4 ??C (97.5 ??F) 04/17/2021 1:03 PM CS T Respiratory Rate 14 02/15/2021 1:17 PM MEAT MANAGER Oxygen Saturation 95% 02/15/2021 1:17 PM MEAT MANAGER Inhaled Oxygen Concentration - - Weight 138 kg (304 lb 3.8 oz) 04/17/2021 1:03 PM MEAT MANAGER Height 178 cm (5' 10.08) 04/17/2021 1:03 PM MEAT MANAGER Body Mass Index 43.55 04/17/2021 1:03 PM MEAT MANAGER Plan of Treatment Not on file Procedures [...] PROCEDURES from Last 3 Months Care Teams Manager Concrete Relationship Specialty Start Date End Date Elsewhere, Pcp PCP - General Family Medicine 06/15/17
--- OUTSIDE RECORDS SUMMARY | 2023-12-12 11:04 | XMS_ITS | Encounter Summary ---
Author Organization [facility] Address [address] [place] [address] Care Team Providers Care High Reach Operator Name Role Phone Elsewhere, Pcp Primary Care Provider Unavailabl e Reason for Visit * Reason Comments Chest Pain Encounter Details Date Type Department Care Team (Late st Contact Info) Description 09/17/2023 7:59 PM CDT - 09/17/2023 11:59 PM CDT Emergency [facility] [address] [place] [phone] Non-ST Elevation Myocardial Infarction (HCC) (Primary Dx) [...] bandage 12 10/03/2017 FreeStyle João 14 Day [place] misc 02/17/2021 FreeStyle João 14 Day Sensor [...] Primary documented in this encounter Care Teams High Reach Operator Relationship Specialty Start Date End Date Elsewhere, Pcp PCP - General Family Medicine 06/15/17 documented as of this encounter
--- OUTSIDE RECORDS SUMMARY | 2023-12-12 11:04 | XMS_ITS | Encounter Summary ---
Author Organization [facility] Address [address] [place] [address] Care Team Providers Care Captain Cannery Tender Name Role Phone Elsewhere, Pcp Primary Care Provider Unavailabl e Reason for Visit * Reason Comments Weakness - Generalized Hyperglycemia Encounter Details Date Type Department Care Team (Late st Contact Info) Description 10/26/2023 10:48 PM CDT - 10/26/2023 11:59 PM CDT Emergency [facility] [address] [place] [phone] Hyperglycemia (Primary Dx) Discharge Disposition: Home or [...] bandage 12 10/03/2017 FreeStyle João 14 Day [place] misc 02/17/2021 FreeStyle João 14 Day Sensor [...] Primary documented in this encounter Care Teams Captain Cannery Tender Relationship Specialty Start Date End Date Elsewhere, Pcp PCP - General Family Medicine 06/15/17 documented as of this encounter
--- OUTSIDE RECORDS SUMMARY | 2023-12-12 11:04 | XMS_ITS | Clinical Summary ---
Author Organization [facility] Address [address] [place] [address] Care Team Providers Care Rocket Propellant Plant Supervisor Name Role Phone Elsewhere, Pcp Primary Care Provider Unavailabl e Source Comments Patient records contain information from all sites at [facility]. For routine questions regarding patient records, call [phone] during business hours, M-F 8:00 AM - 5:00 PM Central Time. Record requests for emergency care only can be directed to [phone] at any time.[facility] Allergies Active Allergy Reactions Criticality Noted Date Comments Dimethicone-Petrolatum Rash 02/01/2014 Horse [place] Rash 07/16/2016 Silver Sulfate-Foam Bandage Rash 02/02/20 [...] mouth. 11/07/2019 Active FreeStyle João 14 Day [place] misc 02/17/2021 Active FreeStyle João 14 Day [...] CDT - 10/26/2023 11:59 PM CDT Emergency [facility] [address] [place] [address] Hyperglycemia (Primary Dx) Discharge Disposition: Home or Self Care 09/17/2023 7:59 PM CDT - 09/17/2023 11:59 PM CDT Emergency [facility] [address] [place] [address] Non-ST Elevation Myocardial Infarction (HCC) (Primary Dx) [...] Comments Blood Pressure 160/85 04/17/2021 1:03 PM TRAVEL SPECIALIST Pulse 74 04/17/2021 1:03 PM TRAVEL SPECIALIST Temperature 36.4 ??C (97.5 ??F) 04/17/2021 1:03 PM CS T Respiratory Rate 14 02/15/2021 1:17 PM TRAVEL SPECIALIST Oxygen Saturation 95% 02/15/2021 1:17 PM TRAVEL SPECIALIST Inhaled Oxygen Concentration - - Weight 138 kg (304 lb 3.8 oz) 04/17/2021 1:03 PM TRAVEL SPECIALIST Height 178 cm (5' 10.08) 04/17/2021 1:03 PM TRAVEL SPECIALIST Body Mass Index 43.55 04/17/2021 1:03 PM TRAVEL SPECIALIST Plan of Treatment Health Maintenance Due Date [...] PROCEDURES from Last 3 Months Care Teams Rocket Propellant Plant Supervisor Relationship Specialty Start Date End Date Elsewhere, Pcp PCP - General Family Medicine 06/15/17
== END 2023-12-12 11:02 | disposition home or self-care (01) ==
LOC: WOUND 11:01
PROVIDERS: PCP Family Medicine; Visit Provider Nurse Practitioner Family
DX: E11.622 Type 2 diabetes mellitus with other skin ulcer (principal); I89.0 Lymphedema, not elsewhere classified; L97.322 Non-pressure chronic ulcer of left ankle with fat layer exposed; Z79.4 Long term (current) use of insulin
CPT/HCPCS: G0463

== ENCOUNTER 2023-12-16 07:50 | Outpatient (CLI) | payer OTHER, SELFPAY ==
--- OUTSIDE RECORDS SUMMARY | 2023-12-16 07:52 | XMS_ITS | Data Portability ---
Author Organization [place] [facility] Address [address] [place] [address] Care Team Providers Care Rail Track Maintainer Name Role Phone GORDY SLO Primary Care Provider Assessment Encounter Date Assessment Date Assessment LastModified by Organization Details LastModified Time 11/21/2019 11/21/2019 59M with [id number] Heidy 3+4=7 prostate cancer s/p RALP. Discussed pathology, risk of recurrence, need for ongoing PSA monitoring. Small anastomotic leak, will cont Choi x 1 more week. Worsened LE edema, likely chronic, but will check LE u/s to be sure no DVT. [email or web address] Not available 11/21/2019 14:07:03 01/02/2020 01/02/2020 59M with [id number] Heidy 3+4=7 prostate cancer s/p RALP. 1) Prostate cancer - f/u 4 months with PSA 2) EVETTE, moderate - cont Kegels - consider PFPT 3) ED - Cialis PRN [email or web address] Not available 01/02/2020 09:34:03 05/01/2020 05/01/2020 60M with [id number] [place] 3+4=7 prostate cancer s/p RALP 6 months ago. MICHAEL. 1) Prostate cancer - f/u 6 months with PSA 2) EVETTE, moderate - cont Kegels - consider PFPT 3) ED - Cialis PRN [email or web address] Not available 05/01/2020 10:47:29 10/24/2020 10/24/2020 60M with [id number] [place] 3+4=7 prostate cancer s/p RALP 1 [...] referr al [address] [facility], [address], [facility] [address], [place], [address], 09:57:49 Procedures None record ed. Surgeries None record ed. Imaging None record ed. Medication Orders None record ed. Patient TargetsNo targets recorded. Patient Instructions Encounter Date Encounter Id Patient Instructions Last Modified By Organization Details Last Modified Time 11/28/2019 [id number] To follow up sumaya Doshi at his [...] Not Available [facility] [address], [place], [address], 05/01/2020 10:40:29 02/11/2020 lab* PSA <0.04 normal Not Available No t Available 01/07/2020 12:33:24 01/02/2020 PSA, serum or plasm a PSA, Total <0.04 ng/Ml Not Available [facility] [address], [place], [address], 01/02/2020 09:14:10 10/25/19 21 10/24/2020 PSA, serum or plasm a PSA, Total <0.04n g/mL Not Available [facility] [address], [place], [address], 10/24/2020 10:45:30 11/23/19 20 11/21/2019 CT, pelvi s, w/o contr ast No observ ation record ed. [email or web address] Not Available 17:13:18 Result Notes None recorded. Problems Name Problem SNOMED Code Status Onset Date Resolution Date Notes Provider Name and Address Organization Details Recorded Time Carcinoma of prostate 136092580 Active 2019 Caroline kruger [facility] 0 10:59:25 Male urinary stress incontinence 885950400 Active 2020 Momo mcfarlane MD, PHD [address] [place] [address],[address] [place] [address], [phone], [facility] 10:47:38 Primary erectile dysfunction 629391065 Active 2020 Momo mcfarlane MD, PHD [address] [place] [address],[address] [place] [address], [phone], [facility] 10:47:58 Problem Notes None recorded. Procedures Surgical History Date Name Laterality Status Provider Name and Address Organization Details Recorded Time 10/25/19 21 Blood Draw/SPEECH THERAPIST/PSA RESULTS completed Momo baez MD, PHD [address] [place] [address],[address], [place], [address], [facility] 10/24/2020 10:45:26 05/01/19 21 Blood Draw/SPEECH THERAPIST/PSA RESULTS completed Momo baez MD, PHD [address] [place] [address],[address] [place] [address], [phone], [facility] 05/01/2020 10:40:25 01/02/20 20 Blood Draw/SPEECH THERAPIST/PSA RESULTS completed Janice Ayala [facility], [facility] 01/02/2020 09:14:04 11/28/19 20 Choi Catheter Removal completed Caroline Smith [facility], [facility] 02/04/2020 12:00:10 Prostatectomy completed Momo baez MD, PHD [address] [place] [address],[facility] [address], [place], [address], [facility] 10/24/2020 10:44:48 colonoscopy completed Monica Awan [facility], [facility] 12/09/2020 10:47:07 Imaging Results Imaging Date Name Status LastModified by Organiz ation Details LastModified Time 11/21/2019 CT, pelvis, w/o contrast completed cedric Information not available 11/29/2019 17:13:18 Procedure Notes None recorded. Medical Equipment None Reported. Allergies Allergen ID Allergen Name Allergen Category Reaction Reaction Severity Criticality Documentation Date Start Date Code Code System Note Provider Name and Address Organization Details Recorded Time 439786 silver medicatio n Not available Not available Not available 11/21/2019 81009 43 RxNorm Caroline Smith [facility] 0 11:09:54 462292 adhesive tape environme nt,medica tion Not available Not available Not available 11/21/2019 Caroline Smith [facility] 0 11:10:01 Medications Name Sig Start [...] Updated DateTime 01/02/2020 180.34 cm 39.3 kg/m2 849006.05 g Caroline Smith [facility] 01/02/2020 09:09:40 Date Recorded Body height Body mass index (BMI) Body weight Provider Name and Address Organization Details Last Updated DateTime 05/01/2020 180.34 cm 39.3 kg/m2 852571.05 g Momo baez MD, PHD [address] [place], [place] [address] [place] [address] 05/01/2020 10:39:59 Date Recorded Body height Body mass index (BMI) Body weight Provider Name and Address Organization Details Last Updated DateTime 10/24/2020 180.34 cm 39.7 kg/m2 809304.83 g Momo baez MD, PHD [address] [place], [place] [address] [place] [address] 10/24/2020 10:44:13 Date Recorded Body height Body mass index (BMI) Body weight Provider Name and Address Organization Details Last Updated DateTime 11/21/2019 180.34 cm 39.3 kg/m2 698237.05 g Caroline Smith [facility] 11/21/2019 11:09:04 Social History Question Answer Notes LastModified by Organizat ion Details LastModified Time Tobacco Smoking Status Never Smoker Caroline kruger [facility] 11/21/2019 11:10:15 What Is Your Level [...] Diagnosis/Indication Diagnosis SNOMED-CT Code Diagnosis ICD10 Code [id number] Momo beard MD, PHD [facility] [facility] [place] [address] 11/21/2019 10:45:55 11/21/2019 15:00:28 Malignant tumor of prostate 531903359 C61 [id number] Caroline Gneiting [facility] [place] [address] 11/28/2019 09:57:13 02/06/2020 03:54:17 [id number] Momo beard MD, PHD [facility] [place] [address] 01/02/2020 08:46:59 01/02/2020 14:22:16 Malignant tumor of prostate 019488236 C61 [id number] Momo beard MD, PHD [facility] [employer] [facility] [place] [address] 05/01/2020 09:26:51 05/01/2020 12:03:29 Malignant tumor of prostate 031281018 C61 Primary er ectile dysfunction 714787124 N52.9 [id number] Momo beard MD, PHD [facility] [place] [address] 10/24/2020 10:28:04 10/27/2020 16:45:05 Carcinoma of prostate 081355673 C61 Malignant tumor of prostate 115659175 C61 Primary er ectile dysfunction 906271875 N52.9 Male urina ry stress incontinence 204298938 N39.3 Health Concerns Section Related Observation LastModified by Organization Detai ls LastModified Time None Recorded Concern Status LastModified by Organization Details LastModified Time None Recorded Advance Directives Directive None Recorded Payers Encounter Date Sequence Insurance Name Policy Number Policy Archibald Covered Member ID Archibald Member ID Guarantor Name 11/21/2019 1 [facility] [id number] Julien Ridley [id number] Julien Ridley 11/28/2019 1 [facility] [id number] Julien Ridley [id number] Julien Ridley 01/02/2020 1 [facility] [id number] Julien Ridley [id number] Julien Ridley 05/01/2020 1 [facility] [id number] Julien Ridley [id number] Julien Ridley 10/24/2020 1 [facility] [id number] Julien Ridley [id number] Julien Ridley Notes Date Note Type Note Provider Name and Address Organization Details Recorded Time 11/21/2019 text/html HPI Notes: 59M s /p RALP 11/06/19 for [id number] He[place] 3+4=7 prostate cancer (0/12 LN, -SMS) [...] Pre-op ED: 2 Momo Holliday MD, PHD [address] [place] [address],[address], [place], [address], [facility] 11/21/2019 14:07:42 01/02/2020 text/html HPI Notes: 59M with [id number] [place] 3+4=7 prostate cancer (0/12 LN, -SMS) s/p RALP 11/06/19. Small anastomotic leak, catheter removed 11/28/19. Overall doing well. C/o some leakage with BMs and position changes. Uses multiple depends per day...... LE u/s to eval for dvt last visit was negative PSA Results 07/27/19: 6.5 01/02/20: <0.04 UF: 4 EF: 5/ Pre-op EF: 2/5 oMmo Holliday MD, PHD [address] [place] [address], [phone], [facility] 01/02/2020 09:35:54 05/01/2020 text/html HPI Notes: 60M with [id number] [place] 3+4=7 prostate cancer (0/12 LN, -SMS) s/p RALP 11/06/19. Small anastomotic leak, catheter removed 11/28/19. Overall doing well. C/o some leakage with BMs and position changes. Uses 4ppd which is improvement. No problems with incisions. PSA Results 07/27/19: 6.5 01/02/20: <0.04 05/01/20: <0.04 UF: 3/5 EF: 5/ Pre-op EF: 2/5 Momo Holliday MD, PHD [address] [place] [address], [phone], [facility] 05/01/2020 10:48:15 10/24/2020 text/html HPI Notes: 60M with [id number] [place] 3+4=7 prostate cancer (0/12 LN, -SMS) s/p RALP 11/06/19 Overall doing well. C/o some leakage with BMs and position changes and sexual activity. Uses 4ppd still. No problems with incisions. PSA Results 07/27/19: 6.5 01/02/20: <0.04 05/01/20: <0.04 10/24/20: <0.04 UF: 3/5 EF: 5/5 Pre-op EF: 2/5 Momo Holliday MD, PHD [address] [place] [address],[address], [address], [facility] 10/24/2020 11:30:55
--- OUTSIDE RECORDS SUMMARY | 2023-12-16 07:52 | XMS_ITS | Clinical Summary ---
Author Organization [facility] Address [address] [place] [address] Care Team Providers Care Foreign Language Professor Name Role Phone Munir Sahu MD Primary [...] Advance Directives For more information, please contact: [phone] * Full Code (Latest Code Status on File) Date Activated Date Inactivated Comments 11/06/2019 2:19 PM 11/07/2019 9:06 PM All basic and advanced life-sustaining interventions are performed as appropriate Question Answer Comments Code status determined by: Unable to det ermine; FULL CODE until documents or legal decision maker available Care Teams Foreign Language Professor Relationship Specialty Start Date End Date Munir Sahu MD PCP - General Family Practice 10/22/19
--- OUTSIDE RECORDS SUMMARY | 2023-12-16 07:53 | XMS_ITS | Clinical Summary ---
Author Organization [facility] Address [address] [place] [address] Care Team Providers Care Quality Audit Representative Name Role Phone Elsewhere, Pcp Primary Care Provider Unavailabl e Source Comments Patient records contain information from all sites at [facility]. For routine questions regarding patient records, call [phone] during business hours, M-F 8:00 AM - 5:00 PM Central Time. Record requests for emergency care only can be directed to [phone] at any time.[facility] Allergies Active Allergy Reactions Criticality Noted Date Comments Dimethicone-Petrolatum Rash 02/01/2014 Horse [place] Rash 07/16/2016 Silver Sulfate-Foam Bandage Rash 02/02/20 [...] mouth. 11/07/2019 Active FreeStyle João 14 Day [place] misc 02/17/2021 Active FreeStyle João 14 Day [...] CDT - 10/26/2023 11:59 PM CDT Emergency [facility] [address] [place] [address] Hyperglycemia (Primary Dx) Discharge Disposition: Home or Self Care 09/17/2023 7:59 PM CDT - 09/17/2023 11:59 PM CDT Emergency [facility] [address] [place] [address] Non-ST Elevation Myocardial Infarction (HCC) (Primary Dx) [...] Comments Blood Pressure 160/85 04/17/2021 1:03 PM PORTAINER OPERATOR Pulse 74 04/17/2021 1:03 PM PORTAINER OPERATOR Temperature 36.4 ??C (97.5 ??F) 04/17/2021 1:03 PM CS T Respiratory Rate 14 02/15/2021 1:17 PM PORTAINER OPERATOR Oxygen Saturation 95% 02/15/2021 1:17 PM PORTAINER OPERATOR Inhaled Oxygen Concentration - - Weight 138 kg (304 lb 3.8 oz) 04/17/2021 1:03 PM PORTAINER OPERATOR Height 178 cm (5' 10.08) 04/17/2021 1:03 PM PORTAINER OPERATOR Body Mass Index 43.55 04/17/2021 1:03 PM PORTAINER OPERATOR Plan of Treatment Health Maintenance Due [...] PROCEDURES from Last 3 Months Care Teams Quality Audit Representative Relationship Specialty Start Date End Date Elsewhere, Pcp PCP - General Family Medicine 06/15/17
--- OUTSIDE RECORDS SUMMARY | 2023-12-16 07:53 | XMS_ITS | Clinical Summary ---
Author Organization [facility] Address [place], [place] [address] Care Team Providers Care Men'S Garment Fitter Name Role Phone Munir Sahu MD Primary Care Provider + [facility], [facility] [phone] Allergies Active Allergy Reactions Criticality Noted Date [...] by insurance) 9 mL 09/28/2023 Active Insulin [place], Disposable, (Susana Pen Needle) 32 gauge x [...] Active amLODIPine (NORVASC) 5 mg tabletIndications :Essential hypertension,CAD, multiple vessel Take 1 Tablet (5 mg) by mouth once daily. 30 Tablet 1 12/13/2023 Active amLODIPine (NORVASC) 5 mg tabletIndications :Essential hypertension Take 1 Tablet (5 mg) by mouth once daily. 30 Tablet 1 10/28/2023 Discontinu ed(Reorder (E-cancel not sent)) Active Problems Problem Noted Date Diagnosed Date Coronary artery disease invo lving [place] coronary artery without angina pectoris 10/28/2023 Overview [...] Encounters Date Type Department Care Team Description 12/15/2023 6:57 AM CDT - 12/15/2023 11:59 PM CDT Hospital Encounter [facility] [address] [place] [address] 12/15/2023 Travel 12/14/2023 6:54 AM CDT - 12/14/2023 11:59 PM CDT Hospital Encounter [facility] [address] [place] [address] 12/14/2023 Travel 12/13/2023 1:30 PM CDT Office Visit [facility] [address] [place] [address] Kamran Li MD Follow Up (Dr. Li in 4-6 weeks or soonest available, post hospital per Geetha Chavez, seeing Dr. Aiken at 1:30); Imaging (Pt had NM cardiac MPI stress test today); Refill Request (amlodipine); Medication Management (Per pt states that medications are current and recent (no changes at this time refills needed on amlodipine) ); Concerns (Chest discomfort, pt denies edema, SOB, dizziness and palpitations at this time ) 12/13/2023 7:09 AM CDT - 12/13/2023 11:59 PM CDT Hospital Encounter [facility] [address] [place] [address] Kamran Li MD CAD, multiple vessel; S/p 3V CABG (SHER-LAD, LISA-ramus, radial-OM), 09/23/2023 12/13/2023 Travel 12/12/2023 7:00 AM CDT - 12/12/2023 11:59 PM CDT Hospital Encounter [facility] [address] [facility] [place] [address] 12/12/2023 Telephone [facility] [address] [place] [address] Gina Jaime Cardiovascular Diagnostic Testing (lvm to confirm 12/13/23 stress test appt) 12/12/2023 Travel 12/08/2023 6:56 AM CDT - 12/08/2023 11:59 PM CDT Hospital Encounter [facility] [address] [place] [address] 12/08/2023 Travel 12/07/2023 6:52 AM CDT - 12/07/2023 11:59 PM CDT Hospital Encounter [facility] [address] [place] [address] 12/07/2023 Travel 12/01/2023 6:55 AM CDT - 12/01/2023 11:59 PM CDT Hospital Encounter [facility] [address] [place] [address] 12/01/2023 Travel 11/30/2023 6:55 AM CDT - 11/30/2023 11:59 PM CDT Hospital Encounter [facility] [address] [place] [address] 11/30/2023 Travel 11/29/2023 9:09 AM CDT - 11/29/2023 11:59 PM CDT Hospital Encounter [facility] [address] [place] [address] Aljeandra Lau, PA S/p 3V CABG (SHER-LAD, LISA-ramus, radial-OM), 09/23/2023 11/29/2023 Travel 11/28/2023 7:30 AM CDT Home Care Visit [facility] [address] [place] [address] Elvira Reyes, RN SN - OASIS DISCHARGE 11/22/2023 10:45 AM CDT Home Care Visit [facility] [address] [place] [address] Tyson Mejias, PT PT - DISCIPLINE DISCHARGE 11/21/2023 10:00 AM CDT Home Care Visit [facility] [address] [place] [phone] Irma Hollins, RN SN - HOME VISIT 11/17/2023 7:30 AM CDT Home Care Visit [facility] [address] [place] [phone] Tyson Mejias, PT PT - HOME VISIT 11/15/2023 8:30 AM CDT Home Care Visit [facility] [address] [place] [phone] Tyson Mejias, PT PT - HOME VISIT 11/14/2023 8:30 AM CDT Home Care Visit [facility] [address] [place] [phone] Elvira Reyes RN SN - HOME VISIT 11/14/2023 3:30 AM CDT Home Care Visit [facility] [address] [place] [phone] Ailyn Varghese RN SN - WOUND/OSTOMY CHART CONSULT 11/11/2023 Telephone [facility] [address] [place] [address] Anibal Quigley MD Referral 11/10/2023 8:00 AM CDT Home Care Visit [facility] [address] [place] [phone] Tyson Mejias, PT PT - HOME VISIT 11/09/2023 10:00 AM CDT Home Care Visit [facility] [address] [place] [phone] Isa Cintron, CHITRA SN - HOME VISIT 11/09/2023 Orders Only [facility] [address] [place] [address] Louisa Lopez PA <No scans attached> 11/08/2023 Home Care Visit [facility] [address] [place] [phone] Tyson Mejias, PT CARE COORDINATION 11/07/2023 8:15 AM CDT Home Care Visit [facility] [address] [place] [address] Tyson Mejias, PT PT - INITIAL ASSESSMENT 11/07/2023 7:30 AM CDT Home Care Visit [facility] [address] [place] [address] Lexi Esteves, CHITRA SN - HOME VISIT 11/04/2023 Home Care Visit [facility] [address] [place] [phone] Elvira Reyes RN CARE COORDINATION 11/04/2023 Telephone [facility] [address] [facility] [address] [place] [address] Gregorio Olivia MD Medication Management (amlodipine) 11/02/2023 8:30 AM CDT Home Care Visit [facility] [address] [place] [phone] Nohemy Anna LPN [employer] - HOME VISIT 10/31/2023 3:00 PM CDT Home Care Visit [facility] [address] [place] [phone] Evie Young RN SN - HOME VISIT 10/31/2023 Procedure Only [facility] [address] [facility] [address] [place] [phone] Device Check (Remote Leadless Pacemaker Ca... 10/28/2023 5:20 AM CDT - 10/28/2023 1:20 PM CDT Hospital Encounter [facility] [address] [place] [address] Kamran Li MD Essential hypertension (Primary Dx); CAD, multiple vessel; S/p 3V CABG (SHER-LAD, LISA-ramus, radial-OM), 09/23/2023 Discharge Disposition: Home Self Care 10/28/2023 Home Care Visit [facility] [address] [place] [address] Elvira Reyes RN CARE TRANSITION NOTE 10/28/2023 Travel 10/27/2023 8:30 AM CDT Home Care Visit [facility] [address] [place] [address] Elvira Reyes RN SN - HOME VISIT 10/26/2023 10:48 PM CDT - 10/27/2023 12:53 AM CDT [facility] [address] [place] [address] Misha Styles III, MD Insomnia, unspecified type (Primary Dx); Anxiety Discharge Disposition: Home Self Care 10/26/2023 Travel 10/24/2023 9:00 AM CDT Home Care Visit [facility] [address] [place] [address] Elvira Reyes RN SN - HOME VISIT 10/21/2023 Home Care Visit [facility] [address] [place] [phone] Elvira Reyes, RN CARE COORDINATION 10/21/2023 Telephone [facility] [address] [place] [address] Kary Aiken MD Pre Procedure 10/21/2023 Telephone [facility] [address] [place] [address] Jen Greenberg NP Results 10/20/2023 1:50 PM CDT Orders Only [facility] [address] [place] [address] Lab 10/20/2023 1:00 PM CDT Office Visit [facility] [address] [place] [address] Jen Greenberg NP Follow Up (3-4 weeks [...] 10/19/2023 7:45 AM CDT Home Care Visit [facility] [address] [place] [phone] Elvira Reyes RN SN - HOME VISIT 10/17/2023 5:00 AM CDT Home Care Visit [facility] [address] [place] [phone] Isa Cintron RN SN - HOME VISIT 10/12/2023 10:00 AM CDT Home Care Visit [address] [phone] Elvira Reyes RN SN - HOME VISIT 10/10/2023 9:45 AM CDT Home Care Visit [facility] [address] [place] [phone] Elvira Reyes RN SN - HOME VISIT 10/07/2023 8:00 AM CDT Home Care Visit [address] [phone] Elvira Reyes RN SN - HOME VISIT 10/05/2023 12:30 PM CDT Home Care Visit [place] [facility] [id number] [place] [phone] Elvira Reyes RN SN - HOME VISIT 10/04/2023 2:00 PM CDT Procedure Only [facility] [address] [place] [address] Device Check (IN CLINIC [employer] LEADLESS... 10/04/2023 Travel 10/03/2023 7:00 AM CDT Home Care Visit [address] [phone] Lexi Esteves, CHITRA SN - HOME VISIT 10/03/2023 1:00 AM CDT Home Care Visit [facility] [address] [place] [address] Ailyn Varghese RN SN - WOUND/OSTOMY CHART CONSULT 10/03/2023 Telephone [facility] [address] [place] [address] Ailyn Varghese RN Home Care (Vascular and or Wound clinic referral is needed. Supplies with [facility]) 09/30/2023 9:30 AM CDT Home Care Visit [facility] [address] [place] [phone] Lexi Esteves RN SN - OASIS START OF CARE 09/30/2023 Plan of Care Documentation [facility] [address] [place] [phone] 09/28/2023 Orders Only [address] [place] [address] Alejandra Lau PA <No scans attached> 09/23/2023 2:03 PM CDT Anesthesia Event [address] [address] Marylou De Anda MD Ludwig, Margaret J, CRNA 09/23/2023 12:45 PM CDT - 09/23/2023 8:02 PM CDT Surgery [address] [address] Gregorio Olivia MD CORONARY ARTERY BYPASS X 3 WITH RADIAL HARVEST, AND TEMP VENTRICULAR PACING WIRES 09/18/2023 2:58 AM CDT - 09/28/2023 2:30 PM CDT Hospital Encounter [address] [address] s, U Hospitalist Wendy Rodriguez DO [place], [...] 09/18/2023 1:46 AM CDT Emergency [facility] [address] [place] [address] Pritesh Boyer MD NSTEMI (non-ST elevated myocardial infarction) (HC) (Primary Dx) Discharge Disposition: Health Care Facility Not On List 09/17/2023 Telephone [facility] [address] [place] [address] Guzman Lovelace MD 09/17/2023 Travel [...] Sign Reading Time Taken Comments Blood Pressure 112/65 12/13/2023 11:05 AM CDT Pulse 70 12/13/2023 11:05 AM CDT Temperature 36.1 ??C (96.9 ??F) 11/28/2023 7:45 AM CD T Respiratory Rate 16 12/13/2023 11:05 AM CDT Oxygen Saturation 98% 12/13/2023 11:05 AM CDT Inhaled Oxygen Concentration - - Weight 132.9 kg (293 lb) 12/13/2023 11:05 AM CDT Height 180.3 cm (5' 11) 12/13/2023 11:05 AM CDT Body Mass Index 40.87 12/13/2023 11:05 AM CDT Plan of Treatment Upcoming Encounters Date Type Department Care Team (Late st Contact Info) Description 12/19/2023 9:30 AM CDT Orders Only [facility] [address] [place] [address] 12/21/2023 7:00 AM CDT Appointment [facility] [address] [place] [address] 12/22/2023 7:00 AM CDT Appointment [facility] [address] [place] [address] 01/02/2024 7:00 AM CDT Appointment [facility] [address] [place] [address] 01/04/2024 7:00 AM CDT Appointment [facility] [address] [place] [address] 01/11/2024 7:00 AM CDT Appointment [facility] [address] [place] [address] 01/12/2024 7:00 AM CDT Appointment [facility] [address] [place] [address] 01/12/2024 2:00 PM CDT Office Visit [facility] [address] [place] [address] Chriss Whittington MD [address] [address] 01/16/2024 7:00 AM CDT Appointment [facility] [address] [place] [address] 01/18/2024 7:00 AM CDT Appointment [facility] [address] [place] [address] 01/19/2024 7:00 AM CDT Appointment [facility] [address] [place] [address] 01/23/2024 7:00 AM CDT Appointment [facility] [address] [place] [address] 01/25/2024 7:00 AM CDT Appointment [facility] [address] [place] [address] 01/26/2024 7:00 AM CDT Appointment [facility] [address] [place] [address] 01/30/2024 7:00 AM CDT Appointment [facility] [address] [place] [address] 02/01/2024 7:00 AM CDT Appointment [facility] [address] [place] [address] 02/02/2024 7:00 AM CDT Appointment [facility] [address] [place] [address] 02/06/2024 7:00 AM SAW OFFBEARER Appointment [facility] [address] [place] [address] 02/08/2024 7:00 AM SAW OFFBEARER Appointment [facility] [address] [place] [address] 02/09/2024 7:00 AM SAW OFFBEARER Appointment [facility] [address] [place] [address] 02/13/2024 7:00 AM SAW OFFBEARER Appointment [facility] [address] [facility] [place] [address] 02/15/2024 7:00 AM SAW OFFBEARER Appointment [facility] [address] [place] [address] 02/16/2024 7:00 AM SAW OFFBEARER Appointment [facility] [address] [place] [address] 02/20/2024 7:00 AM SAW OFFBEARER Appointment [facility] [address] [place] [address] 02/27/2024 Procedure Only [facility] [address] [place] [phone] Health Maintenance Due Date Last Done Comments [...] wt on same day) for age 18+ 12/12/2024 12/13/2023, 10/20/2023 Lipids for age 45-75 09/17/2028 09/18/2023 Procedures Procedure Name Priority Date/Time Associated Diagnosis Comments SCAN-CARDIAC REHABILITATION 12/15/2023 7:01 AM CDT SCAN-CARDIAC REHABILITATION 12/14/2023 7:02 AM CDT NM CARDIAC MPI STRESS TEST Routine 12/13/2023 10:08 AM CDT CAD, multiple vessel S/p 3V CABG (SHER-LAD, LISA-ramus, radial-OM), 09/23/2023 SCAN-CARDIAC REHABILITATION 12/12/2023 7:12 AM CDT SCAN-CARDIAC [...] TUBING PR5 Routine 09/23/2023 4:34 PM CDT [facility] TUBING PR1 Routine 09/23/2023 4:34 PM CDT [facility] ANES US GUIDE FOR VASC ACCESS Routine 09/23/2023 4:34 PM CDT [facility] STOPCOCK PR5 Routine 09/23/2023 4:3 4 PM [...] Case Notes AVERAGE T/FPERFUSION-Confirmed w/Shayna for 1315 #[id number] EK 09/21OR STAFF BYPASS CORONARY ARTERY 01 2023 1:33 PM CDT Case Notes AVERAGE T/FPERFUSION-Confirmed w/Shayna for 1315 #[id number] EK 09/21OR STAFF GLUCOSE METER Timed 09/23/2023 [...] Last 3 Months Results * SCAN-CARDIAC REHABILITATION (12/15/2023 7:01 AM CDT) Only the most recent of8 resultswithin the time period is included. Scanner OTHER * NM CARDIAC MPI STRESS TEST (12/13/2023 10:08 AM CDT) Anatomical Region Laterality Modality HEART Nuclear Medicine 12/13/2023 7:07 AM CDT Narrative 12/13/2023 12:48 PM CDT [address], [place] [address] Main: ?Myocardial Perfusion Report ?Rest/Stress 1 Day Single Isotope Gated SPECT imaging with Regadenoson(Lexiscan) stress JOSE GUADALUPE RIDLEY Songkary ID: [id number] Age: 63 : 1960 Nuclear Tech: KKD Exam Date: 12/13/2023 07:07 Gender: M RN/Ex. Global Coordinator: HANG/TYLER Height: 70.9 in BSA: 2.43 m?? Monitoring Provider: KARY AIKEN Weight: 280 lbs BMI: 39.2 kg/m?? Ordering Provider: KAMRAN LI Location: [facility] Indication: S/P CABG x 3; CAD, multiple vessel FINAL CONCLUSIONS 1. No significant ischemia was suggested by this study. 2. There is a small fixed defect in the apical inferior wall and mid inferolateral wall, consistent with prior infarction. 3. LVEF is calculated to be 60%. There is abnormal septal wall motion consistent with post-op state. 4. There was no ECG evidence diagnostic for of ischemia. 5. There is no prior study available for comparison. PATIENT HISTORY Known CAD Risk Factors: Hypertension, Diabetes Mellitus, Hyperlipidemia, Family history, Obesity Cardiac History: Coronary artery disease, Previous CABG, Arrhythmia, Pacemaker/ICD Presenting ??Symptoms: Asymptomatic Cardiac Meds: Amlodipine. Aspirin. Atorvastatin. Lasix. Plavix. Toprol XL. ValSartan. Nitrostat. Meds past 24 hrs: Same as list above, Patient DID take a prescribed beta davin today, Patient DID take a prescribed calcium channel davin today STRESS TEST SUMMARY Pharmacologic Pharmacologic Indications: Pacemaker Protocol: Regadenoson(Lexiscan) Dose: 0.4 mg IV Duration (m:s): 00:15 Treadmill Activity: Adjunct low level exercise was not performed Resting HR (bpm): 62 Resting BP(mmHg): 130 / 72 Position: Sitting Peak HR(bpm): 81 Peak BP(mmHg): 142 / 60 % MPHR: 51 Double Product: [id number] Recovery HR(bpm): 71 Recovery BP(mmHg): 124 / 72 BP Response: Normal HR Response: Normal Stress Termination: Completion of Lexiscan Infusion Stress Symptoms: Pharmacologic stress agent provoked a typical vasodilator response (including flushing, headache, GI distress, nausea, etc). Meds Given: NONE ECG Resting ECG: Sinus rhythm with first-degree AV block. Resting Arrhythmia: None Stress ECG: Stress ECG did not show any ST segment change. Stress ECG is negative for myocardial ischemia. Stress Arrhythmia: Rare PVCs IMAGE PROTOCOL Rest/Stress 1 Day Radiopharmaceutical Dose (mCi) Route Injection Time Injection Date Inj to Img Time (min) Administered By Rest: 99mTc Sestamibi 11.0 IV 0728 12/13/2023 59 KKD Stress: 99mTc Sestamibi 33.0 IV 0925 12/13/2023 45 KKD Post-Injection Exercise: No exercise followed the intravenous injection PERFUSION RESULTS Technical Quality: Raw Data Analysis: Supine imaging was performed. ??Post-Stress Perfusion ?? Rest Perfusion Basal Anterior: 0 Basal Anterior: 0 Basal Anteroseptal: 0 Basal Anteroseptal: 0 Basal Inferoseptal: 0 Basal Inferoseptal: 0 Basal Inferior: 0 Basal Inferior: 0 Basal Inferolateral: 0 Basal Inferolateral: 0 Basal Anterolateral: 0 Basal Anterolateral: 0 Mid Anterior: 0 Mid Anterior: 0 Mid Anteroseptal: 0 Mid Anteroseptal: 0 Mid Inferoseptal: 0 Mid Inferoseptal: 0 Mid Inferior: 0 Mid Inferior: 1 Mid Inferolateral: 0 Mid Inferolateral: 1 Mid Anterolateral: 0 Mid Anterolateral: 0 Apical Anterior: 1 Apical Anterior: 2 Apical Septal: 0 Apical Septal: 0 Apical Inferior: 1 Apical Inferior: 0 Apical Lateral: 0 Apical Lateral: 0 Cambria: 0 Cambria: 0 Summed Stress Score: 2 Summed Rest Score: 4 Summed Difference Score: -2 0 - Normal ? 2 - Moderately Reduced Uptake ?4 - Absent 1 - Mildly ??Reduced Uptake ? 3 - Severely Reduced Uptake ?X - Not Interpretable Perfusion: Images demonstrated a small sized, fixed perfusion abnormality in the mid and apical inferior rivers, consistent with infarction. FUNCTION Calculated via Gated SPECT Post Stress LV EF: 60 % EDV: 102 ml EDVI: 40 ml/m?? ESV: 41 ml ESVI: 16 ml/m?? LV Size and Function: Normal left ventricular size and systolic function with a calculated LVEF of 60%. LV Regional Function: Normal left ventricular wall motion. Anderson ??Lolis NOBLES [facility] Accredited Site (Electronically Signed) Final Date: 13 December 2023 12:48 ICD-10 Codes: Z95.1; I25.10 CC Providers: Dr. Munir Sahu Procedure Note Anderson Danielle MD - 12/13/[address], [place] [address] Main: Myocardial Perfusion Report Rest/Stress 1 Day Single Isotope Gated SPECT imaging withRegadenoson(Lexiscan) stress JOSE GUADALUPE RIDLEY Federico ID: [id number] Age: 63 : 1960 Nuclear Tech: KKD Exam Date: 12/13/2023 07:07 Gender: M RN/Ex. Global Coordinator: HANG/CTL Height: 70.9 in BSA: 2.43 m?? Monitoring Provider:KARY AIKEN Weight: 280 lbs BMI: 39.2 kg/m?? Ordering Provider: KAMRAN LI Location: [facility] Indication: S/P CABG x 3; CAD, multiple vessel FINAL CONCLUSIONS 1. No significant ischemia was suggested by this study. 2. There is a small fixed defect in the apical inferior wall and midinferolateral wall, consistent with prior infarction. 3. LVEF is calculated to be 60%. There is abnormal septal wall motionconsistent with post-op state. 4. There was no ECG evidence diagnostic for of ischemia. 5. There is no prior study available for comparison. PATIENT HISTORY Known CAD Risk Factors: Hypertension, Diabetes Mellitus, Hyperlipidemia, Familyhistory, Obesity Cardiac History: Coronary artery disease, Previous CABG, Arrhythmia,Pacemaker/ICD Presenting Symptoms: Asymptomatic Cardiac Meds: Amlodipine. Aspirin. Atorvastatin. Lasix. Plavix. ToprolXL. ValSartan. Nitrostat. Meds past 24 hrs: Same as list above, Patient DID take a prescribed betablocker today, Patient DID take a prescribed calcium channel davin today STRESS TEST SUMMARY Pharmacologic Pharmacologic Indications: Pacemaker Protocol: Regadenoson(Lexiscan) Dose: 0.4 mg IV Duration (m:s): 00:15 Treadmill Activity: Adjunct low level exercise was not performed Resting HR (bpm): 62 Resting BP(mmHg): 130 / 72 Position: Sitting Peak HR(bpm): 81 Peak BP(mmHg): 142 / 60 % MPHR: 51 Double Product:[id number] Recovery HR(bpm): 71 Recovery BP(mmHg): 124 / 72 BP Response: Normal HR Response: Normal Stress Termination: Completion of Lexiscan Infusion Stress Symptoms: Pharmacologic stress agent provoked a typicalvasodilator response (including flushing, headache, GI distress, nausea, etc). Meds Given: NONE ECG Resting ECG: Sinus rhythm with first-degree AV block. Resting Arrhythmia: None Stress ECG: Stress ECG did not show any ST segment change. Stress ECG isnegative for myocardial ischemia. Stress Arrhythmia: Rare PVCs IMAGE PROTOCOL Rest/Stress 1 Day Radiopharmaceutical Dose (mCi) Route Injection Time Injection Date Inj toImg Time (min) Administered By Rest: 99mTc Sestamibi 11.0 IV 0728 12/13/2023 59 KKD Stress: 99mTc Sestamibi 33.0 IV 0925 12/13/2023 45 KKD Post-Injection Exercise: No exercise followed the intravenous injection PERFUSION RESULTS Technical Quality: Raw Data Analysis: Supine imaging was performed. Post-Stress Perfusion Rest Perfusion Basal Anterior: 0 Basal Anterior: 0 Basal Anteroseptal: 0 Basal Anteroseptal: 0 Basal Inferoseptal: 0 Basal Inferoseptal: 0 Basal Inferior: 0 Basal Inferior: 0 Basal Inferolateral: 0 Basal Inferolateral: 0 Basal Anterolateral: 0 Basal Anterolateral: 0 Mid Anterior: 0 Mid Anterior: 0 Mid Anteroseptal: 0 Mid Anteroseptal: 0 Mid Inferoseptal: 0 Mid Inferoseptal: 0 Mid Inferior: 0 Mid Inferior: 1 Mid Inferolateral: 0 Mid Inferolateral: 1 Mid Anterolateral: 0 Mid Anterolateral: 0 Apical Anterior: 1 Apical Anterior: 2 Apical Septal: 0 Apical Septal: 0 Apical Inferior: 1 Apical Inferior: 0 Apical Lateral: 0 Apical Lateral: 0 Cambria: 0 Cambria: 0 Summed Stress Score: 2 Summed Rest Score: 4 Summed Difference Score: -2 0 - Normal 2 - ModeratelyReduced Uptake 4 - Absent 1 - Mildly Reduced Uptake 3 - Severely Reduced UptakeX - Not Interpretable Perfusion: Images demonstrated a small sized, fixed perfusion abnormalityin the mid and apical inferior rivers, consistent with infarction. FUNCTION Calculated via Gated SPECT Post Stress LV EF: 60 % EDV: 102 ml EDVI: 40 ml/m?? ESV: 41 ml ESVI: 16 ml/m?? LV Size and Function: Normal left ventricular size and systolic functionwith a calculated LVEF of 60%. LV Regional Function: Normal left ventricular wall motion. Anderson Danielle MD [facility] Accredited Site (Electronically Signed) Final Date: 13 December 2023 12:48 ICD-10 Codes: Z95.1; I25.10 CC Providers: Dr. Munir Sahu Kamran Li MD NM * (ABNORMAL) GLUCOSE METER (11/30/2023 7:54 AM CDT) Only the most recent of57 resultswithin the time period is included. [facility] Signature GLUCOSE METER 151(H) 65 - 100 mg/dL 11/30/2023 7:59 AM CDT [facility] Blood BLOOD SPECIMEN / Unknown 11/30/2023 7:54 AM CDT 11/30/2023 7:59 AM CDT Doctor Unknown CHEMISTRY [facility] [address] [address] * SCAN-CARDIAC STRIP (10/28/2023 10:55 AM CDT) [...] NOW QTc 472 ms BEYOND NOW P [place] 56 degrees BEYOND NOW R [place] 45 degrees BEYOND NOW T [place] 70 degrees BEYOND NOW 10/28/2023 10:3 3 AM CDT 10/28/2023 11:07 AM CDT Kamran Li MD EKG ORD BEYOND NOW [place], [place] * (ABNORMAL) ACTIVATED CLOTTING TIME [id number] ACT (10/28/2023 8:56 AM CDT) ACTIVATED CLOTTING TIME, POCT 304(H) 74 - 125 sec 10/28/2023 12:18 PM CDT [facility] Blood BLOOD SPECIMEN / Unknown 10/28/2023 8:56 AM CDT 10/28/2023 12:18 PM CDT Kamran Li MD HEMATOLOGY [facility] [place] INTERNAL ZIP [id number] [place] [address] * CVL PCI ONLY (10/28/2023 8:19 AM CDT) Anatomical Region Laterality Modality X-Ray Angiograph y 10/28/2023 8:19 AM CDT Narrative Transcriptions Kamran Li MD - 10/28/2023 9:33 AM CDT [facility] [place] [facility] Cardiac Catheterization Report Name: JOSE GUADALUPE IRDLEY Event Date: 10/28/2023 08:19 Excellian ID #: [id number] JAKE #: [id number] Diagnostic Physician: KAMRAN LI [facility] Interventional Physician: KAMRAN LI [facility] Referring Physician: GREGORIO OLIVIA Date: 1960 [...] inhibit spasm of the radialgraft. Consent & [place] Protocol The risks, benefits, and alternatives of the procedure were discussed withthe patient and written informed consent was obtained. [place] protocol was followed. TIME OUT conducted just prior tostarting procedure confirmed patient identity, site/side, procedure,patient position, and availability of correct equipment and implants (ifapplicable). Staff Name Title KAMRAN LI Family Sociologist Rafaela Bailey RN Nurse Hung Oviedo RTR Machelle Adler RTR Monitor Jimmie Merino CVT Adjunct Philosophy Faculty Procedures ? US Guided Access ? Coronary [...] 15mm 1 Distal RCA Drug Eluting Stent Point Comfort Bollinger 3.50 x 22mm Procedure Details Estimated Blood Loss: < 30 ml Specimen Collected: None Level of Sedation Achieved: Moderate Procedure Start: 08:19 Procedure End: 09:22 Procedure Time: 63 min Fluoroscopy Time: 16.2 min Cumulative Air Kerma: 1697 mGy DAP: 90489 mGy/cm2 Contrast: Omnipaque, 230 ml Physiologic Data [...] IV Kamran Li Kendra RN 08:39 Heparin 30919 units IV Kamran Li Kendra RN 08:44 [...] healthcare professional providing the sedation ends personal bobgtirmdlnjoh-en-vtoa time with the patient. The medications listed above were verbally ordered by me and read back tome as documented above. Refer to the procedure log report for additional case details. electronically signed on 10/28/2023 9:33:27 AM with status of Final Kamran Li MD [address], [place] [address] [place] [address] (p) [phone](f) Alejandra FAJARDO CV IMAGING * (ABNORMAL) CBC with Platelets no Differential (10/28/2023 6:35 AM CDT) Only the most recent of5 resultswithin the time period is included. [facility] WHITE BLOOD COUNT 5.9 4.5 - 11.0 thou/cu mm 10/28/2023 6:52 AM CDT [facility] RED BLOOD COUNT 4.27(L) 4.30 - 5.90 mil/cu mm 10/28/2023 6:52 AM T [facility] HEMOGLOBIN 12.6(L) 13.5 - 17.5 g/dL 10/28/2023 6:52 AM T [facility] HEMATOCRIT 38.9 37.0 - 53.0 % 10/28/2023 6:52 AM T [facility] MCV 91 80 - 100 fL 10/28/2023 6:52 AM T [facility] MCH 29.5 26.0 - 34.0 pg 10/28/2023 6:52 AM T [facility] MCHC 32.4 32.0 - 36.0 g/dL 10/28/2023 6:52 AM T [facility] RDW 14.6 11.5 - 15.5 % 10/28/2023 6:52 AM [facility] PLATELET COUNT 193 140 - 440 thou/cu mm 10/28/2023 6:52 AM [facility] MPV 9.6 6.5 - 11.0 fL 10/28/2023 6:52 AM [facility] NRBC 0.0 % 10/28/2023 6:52 AM T [facility] ABS NRBC 0.0 thou /cu mm 10/28/2023 6:52 AM [facility] Blood BLOOD SPECIMEN / Unknown Venipuncture / Unknown 10/28/2023 6:35 AM CDT 10/28/2023 6:45 AM CDT Gregorio Elizabeth MD HEMATOLOGY [facility] SENDOUT INTERNAL ZIP [address] [place] [address] * (ABNORMAL) Basic Metabolic Panel (10/28/2023 6:35 AM CDT) Only the most recent of14 resultswithin the time period is included. SODIUM 139 136 - 145 mmol/L 10/28/2023 7:19 AM T [facility] POTASSIUM 3.8 3.5 - 5.1 mmol/L 10/28/2023 7:19 AM [facility] CHLORIDE 102 98 - 107 mmol/L 10/28/2023 7:19 AM [facility] CO2,TOTAL 25 22 - 29 mmol/L 10/28/2023 7:19 AM [facility] ANION GAP 12 5 - 18 10/28/2023 7:19 AM [facility] GLUCOSE 158(H) 70 - 99 mg/dL 10/28/2023 7:19 AM [facility] CALCIUM 9.4 8.8 - 10.2 mg/dL 10/28/2023 7:19 AM [facility] BUN 19 8 - 23 mg/dL 10/28/2023 7:19 AM [facility] CREATININE 0.97 0.70 - 1.20 mg/dL 10/28/2023 7:19 AM [facility] BUN/CREAT RATIO 20 10 - 20 7:19 AM [facility] eGFR 88(L) >90 mL/min/1.7 3m2 10/28/2023 7:19 AM [facility] Comment:As of 2021, eG [...] 6:45 AM CDT Gregorio Elizabeth MD CHEMISTRY [facility] SENDOUT INTERNAL ZIP [address] [place] [address] * URINALYSIS MICROSCOPIC (10/26/2023 11:46 PM CDT) RBC None Seen 0-2, None Seen /HPF 10/26/2023 11:55 PM [facility] WBC 0-2 0-2, 3-5, None Seen /HPF 10/26/2023 11:55 PM [facility] BACTERIA Rare None Seen, Rare, Few Bacteria/H PF 10/26/2023 11:55 PM [facility] EPITHELIAL CELLS Few None Seen, Few Epi/HPF 10/26/2023 11:55 PM [facility] Urine URINE SPECIMEN / Unknown Non-Blood / Unknown 10/26/2023 11:46 PM CDT 10/26/2023 11:49 PM CDT Misha Styles III, MD URINE [facility] [address] [address] * (ABNORMAL) Urinalysis w Reflex Microscopic if Positive (10/26/2023 11:46 PM CDT) COLOR Yellow Yellow Color 10/26/2023 11:52 PM [facility] CLARITY Clear Clear Clarity 10/26/2023 11:52 PM [facility] SPECIFIC GRAVITY,URINE 1.020 1.010, 1.015, 1.020, 1.025 10/26/2023 11:52 PM [facility] PH,URINE 6.0 6.0, 7.0, 8.0, 5.5, 6.5, 7.5, 8.5 10/26/2023 11:52 PM [facility] UROBILINOGEN, QUALITATIVE Normal Normal EU/dl 10/26/2023 11:52 PM [facility] PROTEIN, URINE Negative Negative mg/dL 10/26/2023 11:52 PM [facility] GLUCOSE, URINE >=1000(A) Negative mg/dL 10/26/2023 11:52 PM [facility] KETONES,URINE Negative Negative mg/dL 10/26/2023 11:52 PM [facility] BILIRUBIN,URI NE Negative Negative 10/26/2023 11:52 PM [facility] OCCULT BLOOD,URINE Negative Negative 10/26/2023 11:52 PM [facility] NITRITE Negative Negative 10/26/2023 11:52 PM [facility] LEUKOCYTE ESTERASE Negative Negative 10/26/2023 11:52 PM [facility] Urine URINE SPECIMEN / Unknown Non-Blood / Unknown 10/26/2023 11:46 PM CDT 10/26/2023 11:49 PM CDT Misha Styles III, MD URINE [facility] [address] [address] * (ABNORMAL) CBC WITH AUTO DIFFERENTIAL (10/26/2023 11:29 PM CDT) Only the most recent of3 resultswithin the time period is included. WHITE BLOOD COUNT 6.5 4.5 - 11.0 thou/cu mm 10/26/2023 11:40 PM [facility] RED BLOOD COUNT 4.13(L) 4.30 - 5.90 mil/cu mm 10/26/2023 11:40 PM [facility] HEMOGLOBIN 12.3(L) 13.5 - 17.5 g/dL 10/26/2023 11:40 PM [facility] HEMATOCRIT 39.2 37.0 - 53.0 % 10/26/2023 11:40 PM [facility] MCV 95 80 - 100 fL 10/26/2023 11:40 PM [facility] MCH 29.8 26.0 - 34.0 pg 10/26/2023 11:40 PM [facility] MCHC 31.4(L) 32.0 - 36.0 g/dL 10/26/2023 11:40 PM [facility] RDW 14.7 11.5 - 15.5 % 10/26/2023 11:40 PM [facility] PLATELET COUNT 179 140 - 440 thou/cu mm 10/26/2023 11:40 PM [facility] MPV 9.4 6.5 - 11.0 fL 10/26/2023 11:40 PM [facility] % NEUT 64.9 % 10/26/2023 11:40 PM [facility] % LYMPH 14.5 % 10/26/2023 11:40 PM [facility] % MONO 8.6 % 10/26/2023 11:40 PM CDT [facility] % EOS 11.7 % 10/26/2023 11:40 PM T [facility] % BASO 0.3 % 10/26/2023 11:40 PM T [facility] ABSOLUTE NEUTROPHILS 4.2 1.7 - 7.0 thou/cu mm 10/26/2023 11:40 PM T [facility] ABSOLUTE LYMPHOCYTES 0.9 0.9 - 2.9 thou/cu mm 10/26/2023 11:40 PM T [facility] ABSOLUTE MONOCYTES 0.6 <0.9 thou/cu mm 10/26/2023 11:40 PM [facility] ABSOLUTE EOSINOPHILS 0.8(H) <0.5 thou/cu mm 10/26/2023 11:40 PM [facility] ABSOLUTE BASOPHILS 0.0 <0.3 thou/cu mm 10/26/2023 11:40 PM [facility] Blood BLOOD SPECIMEN / Unknown Venipuncture / Unknown 10/26/2023 11:29 PM CDT 10/26/2023 11:31 PM CDT Misha Styles III, MD HEMATOLO GY [facility] [address] [address] * SCAN-CARDIAC STRIP (09/28/2023 8:00 AM CDT) Scanner OTHER * PLATELET COUNT (09/28/2023 4:53 AM CDT) Only the most recent of10 resultswithin the time period is included. PLATELET COUNT 239 140 - 440 thou/cu mm 09/28/2023 5:32 AM CDT [facility] MPV 9.2 6.5 - 11.0 fL 09/28/2023 5:32 AM CDT [facility] Blood BLOOD SPECIMEN / Unknown Venipuncture / Unknown 09/28/2023 4:53 AM CDT 09/28/2023 5:21 AM CDT Sandhya FAJARDO HEMATOLOGY [facility] SENDOUT INTERNAL ZIP [address] [address] [place] [address] * WHITE BLOOD COUNT (09/28/2023 4:53 AM CDT) Only the most recent of4 resultswithin the time period is included. WHITE BLOOD COUNT 7.3 4.5 - 11.0 thou/cu mm 09/28/2023 5:32 AM CDT [facility] NRBC 0.0 % 09/28/2023 5:32 AM CDT [facility] ABS NRBC 0.0 thou /cu mm 09/28/2023 5:32 AM CDT [facility] Blood BLOOD SPECIMEN / Unknown Venipuncture / Unknown 09/28/2023 4:53 AM CDT 09/28/2023 5:21 AM CDT Sandhya FAJARDO HEMATOLOGY [facility] SENDOUT INTERNAL ZIP [address] [place] [address] * (ABNORMAL) HEMOGLOBIN (09/28/2023 4:53 AM CDT) Only the most recent of10 resultswithin the time period is included. HEMOGLOBIN 11.6(L) 13.5 - 17.5 g/dL 09/28/2023 5:32 AM CDT [facility] MCV 91 80 - 100 fL 09/28/2023 5:32 AM CDT [facility] Blood BLOOD SPECIMEN / Unknown Venipuncture / Unknown 09/28/2023 4:53 AM CDT 09/28/2023 5:21 AM CDT Sandhya FAJARDO HEMATOLOGY [facility] SENDOUT INTERNAL ZIP [address] [address] [place] [address] * SCAN-CARDIAC STRIP (09/27/2023 7:43 PM CDT) Scanner OTHER * ECHO TTE LIMITED W CONTRAST W COLOR W DOPPLER (09/27/2023 12:26 PM CDT) EJECTION FRACTION 55% PROSOLV Anatomical Region Laterality Modality Ultrasound 09/27/2023 11:3 8 AM CDT Narrative 09/27/2023 12:43 [place] [address] Main: [email or web address] ? Transthoracic Echo Report JOSE GUADALUPE RIDLEY ID: [id number] Age: 63 : 1960 Ordering Provider: RAMANDEEP CHONG Exam Date: 09/27/2023 11:38 Gender: M Road Monkey: [facility] Height: 68 in BSA: 2.46 m?? BP: [...] ?4.93 mmHg Rusty Major MD (Electronically Signed) [facility] Accredited Site Final Date: 27 September 2023 12:41 ICD-10 Codes: Procedure Note Rusty Major MD - 09/27/2023 [place] [address] Main: [email or web address] Transthoracic Echo Report ALICEKGJOSE GUADALUPE ID: [id number] Age: 63 : 1960 Ordering Provider:RAMANDEEP CHONG Exam Date: 09/27/2023 11:38 Gender: M Road Monkey: [facility] Height: 68 in BSA: 2.46 m?? BP: [...] 4.93 mmHg Rusty Major MD (Electronically Signed) [facility] Accredited Site Final Date: 27 September 2023 12:41 ICD-10 Codes: Ramandeep Chong [facility] ECHO ORD * POTASSIUM (09/27/2023 12:12 PM CDT) Only the most recent of4 resultswithin the time period is included. POTASSIUM 4.6 3.5 - 5.1 mmol/L 09/27/2023 12:45 PM CDT [facility] Blood BLOOD SPECIMEN / Unknown Butterfly / Unknown 09/27/2023 12:12 PM CDT 09/27/2023 12:28 PM CDT Gregorio Elizabeth MD CHEMISTRY [facility] SENDOUT INTERNAL ZIP [address] [address] [place] [address] * SCAN-CARDIAC STRIP (09/27/2023 8:00 AM CDT) [...] Juanito Romeo MD ? 09/26/2023 ??5:44 PM [facility] Electrophysiology Laboratory Leadless Pacemaker (AV [...] fluoroscopic image from device in [place] and KHMER projection. The patient tolerated the procedure well [...] procedure. Attending Signature: Juanito Romeo M.D. Cardiac Body And Frame Technician [facility] Manan Steele NP TECHNICIAN [employer] ORD * EP PPM (09/26/2023 4:54 PM CDT) Anatomical Region Laterality Modality Other 09/26/2023 4:54 PM CDT Manan Steele NP CV IMAGING * SCAN-CARDIAC STRIP (09/26/2023 8:36 AM CDT) Scanner OTHER * (ABNORMAL) Protime-INR (09/26/2023 5:26 AM CDT) Only the most recent of7 resultswithin the time period is included. INR 1.2 <1.3 09/26/2023 5:38 AM CDT [facility] PROTIME 13.3(H) 10.3 - 12.3 sec 09/26/2023 5:38 AM CDT [facility] Blood BLOOD SPECIMEN / Unknown Venipuncture / Unknown 09/26/2023 5:26 AM CDT 09/26/2023 5:30 AM CDT Narrative [facility] - 09/26/2023 5:38 AM [...] is on UFH. Gregorio Elizabeth MD HEMATOLOGY [facility] SENDOUT INTERNAL ZIP [phone] [place] [address] * SCAN-PACER (09/26/2023 12:00 AM CDT) Narrative 09/26/2023 12:00 AM CDT Ordered by an unspecified provider. Other Clinical Staff OTHER * SCAN-CARDIAC STRIP (09/25/2023 8:00 AM CDT) Scanner OTHER * MAGNESIUM (09/25/2023 5:07 AM CDT) Only the most recent of8 resultswithin the time period is included. MAGNESIUM 2.1 1.6 - 2.4 mg/dL 09/25/2023 5:34 AM CDT [facility] Blood BLOOD SPECIMEN / Unknown Non-Lab Venipuncture / Unknown 09/25/2023 5:07 AM CDT 09/25/2023 5:15 AM CDT Gregorio Elizabeth MD CHEMISTRY [facility] SENDOUT INTERNAL ZIP [address] [address] [place] [address] * SCAN-CARDIAC STRIP (09/24/2023 11:32 PM CDT) [...] XR CHEST 1 VIEW PORTABLE LOCATION: [facility] MEDICAL IMAGING DATE: 09/24/2023 [...] EXAM: XR CHEST 1 VIEW PORTABLE LOCATION: ORD MEDICAL IMAGING DATE: 09/24/2023 INDICATION: ET tube [...] (ABNORMAL) Calcium Ionized (09/24/2023 4:20 AM CDT) [facility] CALCIUM,IONIZE D 1.10(L) 1.15 - 1.27 mmol/L 09/24/2023 4:35 AM CDT [facility] Blood BLOOD SPECIMEN / Unknown Non-Lab Venipuncture / Unknown 09/24/2023 4:20 AM CDT 09/24/2023 4:32 AM CDT Gregorio Elizabeth MD CHEMISTRY [facility] SENDOUT INTERNAL [facility] [id number] [place] [address] * (ABNORMAL) Arterial Blood Gas (09/24/2023 12:16 AM CDT) [facility] PH, ARTERIAL 7.33(L) 7.35 - 7.45 09/24/2023 12:25 AM T [facility] PCO2, ARTERIAL 52(H) 35 - 48 mmHg 09/24/2023 12:25 AM T [facility] PO2, ARTERIAL 164(H) 83 - 108 mmHg 09/24/2023 12:25 AM T [facility] HCO3, ARTERIAL 27 21 - 28 mmol/L 09/24/2023 12:25 AM T [facility] BASE EXCESS, ARTERIAL 0.6 -2.0 - 3.0 09/24/2023 12:25 AM T [facility] O2 SATURATION, ARTERIAL 100(H) 94 - 98 % 09/24/2023 12:25 AM T [facility] INSPIRED O2 95 09/24/2023 12:25 AM T [facility] Comment:Unit of Measure: Lit ers (L) if <=20; Percent (%) if >20 PATIENT TEMPERATURE 36.9 Degrees C 09/24/2023 12:25 AM CDT [facility] Blood ARTERIAL BLOOD SPECIMEN / Unknown Arterial / Unknown 09/24/2023 12:16 AM CDT 09/24/2023 12:21 AM CDT Gregorio Elizabeth MD CHEMISTRY Performing Organization Address [facility] Co de Phone Number [facility] SENDOUT INTERNAL ZIP [phone] [place] [phone] * SCAN-CARDIAC STRIP (09/24/2023 12:00 AM CDT) Scanner OTHER * Thrombin Time - Immediate Postop (09/23/2023 9:45 PM CDT) Only the most recent of2 resultswithin the time period is included. THROMBIN TIME 15 <16 sec 09/23/2023 10:37 PM CDT [facility] Blood BLOOD SPECIMEN / Unknown Non-Lab Venipuncture / Unknown 09/23/2023 9:45 PM CDT 09/23/2023 9:55 PM CDT Gregorio Elizabeth MD HEMATOLOGY Performing Organization Address [facility] de Phone Number [facility] SENDOUT INTERNAL ZIP [address] [place] [address] * (ABNORMAL) APTT - Immediate Postop (09/23/2023 9:45 PM CDT) Only the most recent of15 resultswithin the time period is included. APTT 23(L) 28 - 36 sec 09/23/2023 10:37 PM CDT [facility] Blood BLOOD SPECIMEN / Unknown Non-Lab Venipuncture / Unknown 09/23/2023 9:45 PM CDT 09/23/2023 9:55 PM CDT Narrative [facility] - 09/23/2023 10:37 PM CDT Therapeutic Range: 57-87 seconds Gregorio Elizabeth MD HEMATOLOGY [facility] SENDOUT INTERNAL ZIP [address] [address] [place] [address] * (ABNORMAL) Fibrinogen, Quantitative - Immediate Postop (09/23/2023 9:45 PM CDT) Only the most recent of2 resultswithin the time period is included. Pathologist [facility] FIBRINOGEN,MOHIT NTITATIVE 453(H) 193 - 401 mg/dL 09/23/2023 10:37 PM CDT [facility] Blood BLOOD SPECIMEN / Unknown Non-Lab Venipuncture / Unknown 09/23/2023 9:45 PM CDT 09/23/2023 9:55 PM CDT Gregorio Elizabeth MD HEMATOLOGY [facility] SENDOUT INTERNAL ZIP [address] [address] [place] [address] * (ABNORMAL) Cardiac Thromboelastography (09/23/2023 8:05 PM CDT) Only the most recent of2 resultswithin the time period is included. [facility] DESTINI REASON Diffuse Cardiac Bleeding 09/23/2023 10:17 PM CDT [facility] INTEM CT 212(H) 122 - 208 s 09/23/2023 10:17 PM CDT [facility] INTEM CFT 71 45 - 110 s 09/23/2023 10:17 PM CDT [facility] INTEM ALPHA 75 70 - 81 ?? 09/23/2023 10:17 PM CDT [facility] INTEM A10 57 46 - 67 mm 09/23/2023 10:17 PM CDT [facility] INTEM A20 63 51 - 72 mm 09/23/2023 10:17 PM CDT [facility] INTEM MCF 64 51 - 72 mm 09/23/2023 10:17 PM CDT [facility] INTEM ML 7 % 09/23/2023 10:17 PM CDT [facility] INTEM LI30 99 % 09/23/2023 10:17 PM CDT [facility] EXTEM CT 108(H) 43 - 82 s 09/23/2023 10:17 PM CDT [facility] EXTEM CFT 81 48 - 127 s 09/23/2023 10:17 PM CDT [facility] EXTEM ALPHA 74 65 - 80 ?? 09/23/2023 10:17 PM CDT [facility] EXTEM A10 60 46 - 67 mm 09/23/2023 10:17 PM CDT [facility] EXTEM A20 66 50 - 70 mm 09/23/2023 10:17 PM CDT [facility] EXTEM MCF 66 52 - 70 mm 09/23/2023 10:17 PM CDT [facility] EXTEM ML 7 % 09/23/2023 10:17 PM CDT [facility] EXTEM LI30 100 % 09/23/2023 10:17 PM CDT [facility] FIBTEM CT 116 s 09/23/2023 10:17 PM CDT [facility] FIBTEM CFT 593 s 09/23/2023 10:17 PM CDT [facility] FIBTEM ALPHA 67 ?? 09/23/2023 10:17 PM CDT [facility] FIBTEM A10 20 7 - 24 mm 09/23/2023 10:17 PM CDT [facility] FIBTEM A20 22 7 - 24 mm 09/23/2023 10:17 PM CDT [facility] FIBTEM MCF 23 7 - 24 mm 09/23/2023 10:17 PM CDT [facility] FIBTEM ML 0 % 09/23/2023 10:17 PM CDT [facility] FIBTEM LI30 100 % 09/23/2023 10:17 PM CDT [facility] HEPTEM CT 248(H) 122 - 208 s 09/23/2023 10:17 PM CDT [facility] HEPTEM CFT 83 45 - 110 s 09/23/2023 10:17 PM CDT [facility] HEPTEM ALPHA 73 70 - 81 ?? 09/23/2023 10:17 PM CDT [facility] HEPTEM A10 51 mm 09/23/2023 10:17 PM CDT [facility] HEPTEM A20 53 51 - 72 mm 09/23/2023 10:17 PM CDT [facility] HEPTEM MCF 54 51 - 72 mm 09/23/2023 10:17 PM CDT [facility] HEPTEM ML 10 % 09/23/2023 10:17 PM CDT [facility] Blood BLOOD SPECIMEN / Unknown Non-Lab Venipuncture / Unknown 09/23/2023 8:05 PM CDT 09/23/2023 8:13 PM CDT Milly Massey KellykenyFilemonyashira VERIFICATION MANAGER LEV JOSHISILVANOSasha [facility] SENDOUT INTERNAL ZIP [phone] [place] [address] * CVC TRIPLE LUMEN, HCHG STOPCOCK PR5, [...] Supplemental O2: supplemental oxygen. ??Comment:. Vessel Production Editor Additional supplies used to locate vessel: no [...] . Video documentation of the exam on [employer] PRECPB EXAM The ZACHARY probe was [...] exam unchanged from pre-CPB. Images saved to server cashier. Teeth and oropharynx unchanged from pre-op. Probe [...] >90 mL/min/1.7 3m2 09/22/2023 3:42 PM CDT [facility] Comment:As of 2021, eG FR is calculated by the CKD-EPI creatinine equation without race adjustment. ??eGFR can be influenced by muscle mass, exercise, and diet. ??The reported eGFR is an estimation only and is only applicable if the renal function is stable. CREATININE 1.13 0.70 - 1.20 mg/dL 09/22/2023 3:42 PM CDT [facility] Blood BLOOD SPECIMEN / Unknown Butterfly / Unknown 09/22/2023 3:12 PM CDT 09/22/2023 3:16 PM CDT Ramandeep Chong NP CHEMISTRY [facility] SENDOUT INTERNAL ZIP [address] [place] [address] * RED BLOOD CELLS EA UNIT (09/22/2023 9:35 AM CDT) Only the most recent of2 resultswithin the time period is included. Pathologist [facility] CROSSMATCH Compatible Compatible [facility] BLOOD BANK PRODUCT BLOOD TYPE O Rh Negative [facility] BLOOD BANK PRODUCT ID NUMBER [id number] [facility] BLOOD BANK PRODUCT STATUS /Relea sed [facility] BLOOD BANK PRODUCT DESCRIPTION RBC -1 LR [facility] BLOOD BANK PRODUCT CODE [id number] [facility] B[facility]OD [facility] Ramandeep Chong NP BLOOD BANK [facility] BLOOD BANK [address] [place] [address] * EXTRA TUBE LAVENDER (09/22/2023 9:34 AM CDT) Blood BLOOD SPECIMEN / Unknown Extra Tube / Unknown 09/22/2023 9:34 AM CDT 09/22/2023 10:58 AM CDT Doctor Unknown LABORATORY Performing Organization Address City/[facility]/ZIP Co de Phone Number [facility] SENDOUT INTERNAL ZIP [phone] [place] [address] * RBC W TYPE AND SCREEN (09/22/2023 [...] CDT 09/22/2023 10:49 AM CDT Ramandeep Chong CIRCULATION CREW LEADER BLOOD BANK Performing Organization Address [facility] Co de Phone Number [facility] [address] [place] [phone] * SCAN-CARDIAC STRIP (09/22/2023 8:13 AM CDT) Scanner OTHER * HEMATOCRIT (09/22/2023 4:55 AM CDT) Only the most recent of4 resultswithin the time period is included. HEMATOCRIT 45.1 37.0 - 53.0 % 09/22/2023 5:21 AM CDT [facility] Blood BLOOD SPECIMEN / Unknown Venipuncture / Unknown 09/22/2023 4:55 AM CDT 09/22/2023 5:18 AM CDT Narrative [facility] - 09/22/2023 5:21 AM CDT Every morning while on IV heparin. Every morning while on IV heparin. Necessary every morning while on IV heparin. Wendy King DO HEMATOLOGY Performing Organization Address City/[facility]/ZIP Co de Phone Number [facility] SENDOUT INTERNAL ZIP [phone] [place] [address] * SCAN-CARDIAC STRIP (09/22/2023 1:22 AM CDT) [...] CDT 1. ?Cholelithiasis. 2. ?Please refer to signaling project engineer's dictation for the cardiac CT report. Narrative 09/22/2023 3:42 PM CDT Results are automatically released to your [employer] account once available, in compliance with federal regulations. ??This means that you may see your results before your provider has had a chance to review them. ??Please allow 2-3 business days for your provider to comment on the results. CT ANGIOGRAM OF THE THORACIC AORTA, 09/20/2023 INDICATION: Pre-coronary artery bypass grafting. CONCLUSIONS: This is a dual read study - please review [facility] over-read below for incidental non cardiac [...] cc/sec, was performed on a ??[employer] SOMATOM Structure Vision CT scanner. The imaging protocol was individualized to minimize radiation exposure. The following ECG-gated acquisition protocol was used: High pitch prospective. ??Pulse range 300-300. Tube potential: 120 kV. Tube current: 5004 mAs. Total DLP: 1158 mGy*cm; mSv: 16.2; CTDI: 54.3. Image post processing was performed on a [employer] Workstation. Images were reconstructed at a slice [...] for incidental non-cardiac findings. Monique Finn MD [facility] AB/car For Patients: As a result of the 21st Century Cures Act, medical imaging exams and procedure reports are released immediately into your electronic medical record. You may view this report before your referring provider. If you have questions, please contact your health care provider. EXAM: OVERREAD: DETAILED [facility] EXTRACARDIAC OVERREAD OF CARDIAC CT LOCATION: [facility] MEDICAL IMAGING DATE: 09/20/2023 INDICATION: Preoperative aortic assessment. TECHNIQUE: Dose reduction techniques were used. COMPARISON: None. FINDINGS: LIMITED CHEST: Scattered mild atelectasis. LIMITED MEDIASTINUM: Cardiomegaly. No central pulmonary embolism. No bulky lymphadenopathy. LIMITED UPPER ABDOMEN: Cholelithiasis. 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 Ramandeep Chong CIRCULATION CREW LEADER CT * US ARTERIAL UPPER EXTREMITY LEFT [...] EXAM: US ARTERIAL UPPER EXTREMITY LEFT LOCATION: ORD MEDICAL IMAGING DATE: 09/20/2023 INDICATION: Severe coronary [...] VEIN MAPPING LOWER EXTREMITY BILATERAL LOCATION: [facility] MEDICAL IMAGING DATE: 09/20/2023 [...] 3 mm Ankle: Not visualized Procedure Note Pollock, Deb Mosalie, MD - 09/21/2023 For Patients: As a [...] Li MD - 09/19/2023 5:59 PM CDT [facility] [place] [facility] [place] [facility] Cardiac Catheterization Report Name: JOSE GUADALUPE RIDLEY Event Date: 09/19/2023 17:17 Excellian ID #: [id number] JAKE #: [id number] Diagnostic Physician: KAMRAN LI [facility] Primary Community Pharmacist: RACHID MÉNDEZ Referring Physician: Date: 1960 Gender: [...] < 70 ;Triglycerides < 100 Consent & [place] Protocol The risks, benefits, and alternatives of the procedure were discussed withthe patient and written informed consent was obtained. [place] protocol was followed. TIME OUT conducted just prior tostarting procedure confirmed patient identity, site/side, procedure,patient position, and availability of correct equipment and implants (ifapplicable). Staff Name Title KAMRAN LI Diagnostic Community Pharmacist Rafaela Bailey RN Nurse Dang Ghosh RN [...] min Cumulative Air Kerma: 493 mGy DAP: 27194 mGy/cm2 Contrast: Omnipaque, 50 ml Visipaque 320, [...] 17:19 Nitroglycerin 200 mcg IA Kamran Li Kamran Muniz 17:19 Nicardipine 200 mcg IA Kamran Li [...] healthcare professional providing the sedation ends personal [id number] time with the patient. The medications listed above were verbally ordered by me and read back tome as documented above. Refer to the procedure log report for additional case details. electronically signed on 09/19/2023 5:59:16 PM with status of Final Kamran Li MD [address], [place] [address] [place] [address] (p) [phone](f) Kary Sona Aiken MD CV IMAGING * ECHO TTE COMPLETE W CONTRAST (09/19/2023 10:48 AM CDT) EJECTION FRACTION 45-50% PROSOLV Anatomical Region Laterality Modality Ultrasound 09/19/2023 10:1 2 AM CDT Narrative 09/19/2023 11:[address] AM CDT [address] [address] Main: [email or web address] ? Transthoracic Echo Report ARISTIDESJOSE GUADALUPE NATHAN Federico ID: [id number] Age: 63 : 1960 Ordering Provider: WENDY KING Exam Date: 09/19/2023 10:12 Gender: M Road Monkey: [facility] Height: 71 in BSA: 2.57 m?? BP: 141 / 82 Weight: 318 lbs BMI: 44.4 kg/m?? HR: 85 Location: Inpatient (Portable) Rhythm: Normal Sinus Rhythm Procedure Components: 2D imaging with contrast, Color Doppler, Spectral Doppler Indications: Chest pain chest pressure chest tightening Technical Quality: Fair Contrast: Definity Constrast Dose (ml): 0.3 [facility]#: [id number] Final Conclusion 1. Technically challenging echocardiogram. 2. [...] ZScore: 0.00 Rusty Major MD (Electronically Signed) [facility] Accredited Site Final Date: 19 September 2023 11:44 ICD-10 Codes: Procedure Note Rusty Major MD - 09/19/2023 [place] [address] Main: [email or web address] Transthoracic Echo Report JOSE GUADALUPE RIDLEY ID: [id number] Age: 63 : 1960 Ordering Provider:WENDY KING Exam Date: 09/19/2023 10:12 Gender: M Road Monkey: [facility] Height: 71 in BSA: 2.57 m?? BP: 141 / 82 Weight: 318 lbs BMI: 44.4 kg/m?? HR: 85 Location: Inpatient (Portable) Rhythm: Normal Sinus Rhythm Procedure Components: 2D imaging with contrast, Color Doppler, SpectralDoppler Indications: Chest pain chest pressure chest tightening Technical Quality: Fair Contrast: Definity Constrast Dose (ml): 0.3 [facility]#: [id number] Final Conclusion 1. Technically challenging echocardiogram. 2. [...] ZScore: 0.00 Rusty Major MD (Electronically Signed) [facility] Accredited Site Final Date: 19 [...] 6.5(H) <=6.4 % 09/18/2023 7:22 AM CDT [facility] Blood BLOOD SPECIMEN / Unknown Venipuncture / Unknown 09/18/2023 4:17 AM CDT 09/18/2023 4:27 AM CDT Narrative [facility] - 09/18/2023 7:22 AM CDT ? (<5.7%) ?Normal ? (5.7% to 6.4%) ? Indicates prediabetes ? (>=6.5%) ? Confirms diabetes Falsely low levels may be seen with: Recent Transfusion, Recent Significant Blood Loss, Hemolytic Diseases, or Falsely elevated levels may be seen with: Untreated Anemias, Splenectomy Wendy King DO CHEMISTRY [facility] [place] [id number] [address] [place] [address] * LIPID PANEL (09/18/2023 4:17 AM CDT) CHOLESTEROL,TOTAL 174 100 - 199 mg/dL 09/18/2023 4:54 AM T [facility] Comment: Cholesterol, Total Reference Ranges Desirable <200 mg/dL Borderline 200-239 mg/dL High >=240 mg/dL TRIGLYCERIDES 105 <150 mg/dL 09/18/2023 4:54 AM CDT [facility] HDL CHOLESTEROL 42 >40 mg/dL 4:54 AM CDT [facility] NON-HDL CHOLESTEROL 132 <145 mg/dl 09/18/2023 4:54 AM T [facility] CHOL/HDL RATIO 4.14 <4.50 09/18/2023 4:54 AM T [facility] LDL CHOLESTEROL 111 <=130 mg/dL 09/18/2023 4:54 AM T [facility] VLDL CHOLESTEROL 21 <=30 mg/dL 09/18/2023 4:54 AM T [facility] PROVIDER ORDERED STATUS RANDOM 09/18/2023 4:54 AM T [facility] Blood BLOOD SPECIMEN / Unknown Venipuncture / Unknown 09/18/2023 4:17 AM CDT 09/18/2023 4:27 AM CDT Wendy King DO CHEMISTRY [facility] [place]ENDOUT [place]IP [id number] [address] [place] [address] * SCAN-CARDIAC STRIP (09/18/2023 3:10 AM CDT) Scanner OTHER * SCAN-CARDIAC STRIP (09/18/2023 12:00 AM CDT) Narrative 09/18/2023 12:00 AM CDT Ordered by an unspecified provider. Other Clinical Staff OTHER * (ABNORMAL) TROPONIN T (HS) ONE TIME (09/17/2023 9:52 PM CDT) TROPONIN T HS 156(H) 6-15 ng/L ng/L 09/17/2023 10:13 PM CDT [facility] Blood BLOOD SPECIMEN / Unknown Venipuncture / Unknown 09/17/2023 9:52 PM CDT 09/17/2023 9:53 PM CDT Pritesh Boyer MD CHEMISTRY [facility] [address] [address] * (ABNORMAL) TROPONIN T (HS) ACUTE W/2HR REFLEX (09/17/2023 7:55 PM CDT) TROPONIN T HS 74(H) 6-15 ng/L ng/L 09/17/2023 8:29 PM CDT [facility] Blood BLOOD SPECIMEN / Unknown IV Start / Unknown 09/17/2023 7:55 PM CDT 09/17/2023 7:56 PM CDT Narrative [facility] - 09/17/2023 8:29 PM CDT hs-cTnT (Ele[employer] [...] department patient population. Pritesh Boyer MD CHEMISTRY [facility] [address] [address] * (ABNORMAL) COMP METABOLIC PANEL (09/17/2023 7:55 PM CDT) SODIUM 138 136 - 145 mmol/L 09/17/2023 8:29 PM [facility] POTASSIUM 4.5 3.5 - 5.1 mmol/L 09/17/2023 8:29 PM [facility] CHLORIDE 102 98 - 107 mmol/L 09/17/2023 8:29 PM [facility] CO2,TOTAL 27 22 - 29 mmol/L 09/17/2023 8:29 PM [facility] ANION GAP 9 5 - 18 09/17/2023 8:29 PM [facility] GLUCOSE 229(H) 70 - 99 mg/dL 09/17/2023 8:29 PM [facility] CALCIUM 9.2 8.8 - 10.2 mg/dL 09/17/2023 8:29 PM [facility] BUN 17 8 - 23 mg/dL 09/17/2023 8:29 PM [facility] CREATININE 0.93 0.70 - 1.20 mg/dL 09/17/2023 8:29 PM [facility] BUN/CREAT RATIO 18 10 - 20 8:29 PM [facility] eGFR >90 >90 mL/min/1.7 3m2 09/17/2023 8:29 PM [facility] Comment:As of 2021, eG FR is calculated by the CKD-EPI creatinine equation without race adjustment. ??eGFR can be influenced by muscle mass, exercise, and diet. ??The reported eGFR is an estimation only and is only applicable if the renal function is stable. ALBUMIN 3.9(L) 4.0 - 4.9 g/dL 09/17/2023 8:29 PM T [facility] PROTEIN,TOTAL 7.2 6.0 - 8.0 g/dL 09/17/2023 8:29 PM T [facility] BILIRUBIN,TOTAL 0.5 0.0 - 1.2 mg/dL 09/17/2023 8:29 PM T [facility] ALK PHOSPHATASE 114 40 - 129 IU/L 09/17/2023 8:29 PM [facility] ALT (SGPT) 30 10 - 50 IU/L 09/17/2023 8:29 PM T [facility] AST (SGOT) 37 10 - 50 IU/L 09/17/2023 8:29 PM [facility] Blood BLOOD SPECIMEN / Unknown IV Start / Unknown 09/17/2023 7:55 PM CDT 09/17/2023 7:56 PM CDT Pritesh Boyer MD CHEMISTRY [facility] [address] [place] [address] from Last 3 Months Advance Directives * [...] Code Status Discussion: Not Discussed Care Teams Men'S Garment Fitter Relationship Specialty Start Date End Date Munir Sahu MD [address] [place] [address] PCP - General Family Practice 09/17/23 [facility] [address] [place] [address] 09/28/23
--- OUTSIDE RECORDS SUMMARY | 2023-12-16 07:53 | XMS_ITS | Referral Summary ---
Author Organization [facility] Address [address] [place] [address] Care Team Providers Care Porter Used Car Lot Name Role Phone Munir Sahu MD Primary [...] Advance Directives For more information, please contact: [phone] * Full Code (Latest Code Status on File) Date Activated Date Inactivated Comments 11/06/2019 2:19 PM 11/07/2019 9:06 PM All basic and advanced life-sustaining interventions are performed as appropriate Question Answer Comments Code status determined by: Unable to det ermine; FULL CODE until documents or legal decision maker available Care Teams Porter Used Car Lot Relationship Specialty Start Date End Date Munir Sahu MD PCP - General Family Practice 10/22/19
--- OUTSIDE RECORDS SUMMARY | 2023-12-16 07:54 | XMS_ITS | Encounter Summary ---
Author Organization [facility] Address [address] [place] [address] Care Team Providers Care Twister Doffer Name Role Phone Elsewhere, Pcp Primary Care Provider Unavailabl e Reason for Visit * Reason Comments Weakness - Generalized Hyperglycemia Encounter Details Date Type Department Care Team (Late st Contact Info) Description 10/26/2023 10:48 PM CDT - 10/26/2023 11:59 PM CDT Emergency [facility] [address] [place] [phone] Hyperglycemia (Primary Dx) Discharge Disposition: Home or [...] bandage 12 10/03/2017 FreeStyle João 14 Day [place] misc 02/17/2021 FreeStyle João 14 Day Sensor [...] Primary documented in this encounter Care Teams Twister Doffer Relationship Specialty Start Date End Date Elsewhere, Pcp PCP - General Family Medicine 06/15/17 documented as of this encounter
--- OUTSIDE RECORDS SUMMARY | 2023-12-16 07:54 | XMS_ITS | Encounter Summary ---
Author Organization [facility] Address [address] [place] [address] Care Team Providers Care Tools And Parts Attendant Name Role Phone Elsewhere, Pcp Primary Care Provider Unavailabl e Reason for Visit * Reason Comments Chest Pain Encounter Details Date Type Department Care Team (Late st Contact Info) Description 09/17/2023 7:59 PM CDT - 09/17/2023 11:59 PM CDT Emergency [facility] [address] [place] [phone] Non-ST Elevation Myocardial Infarction (HCC) (Primary Dx) [...] bandage 12 10/03/2017 FreeStyle João 14 Day [place] misc 02/17/2021 FreeStyle João 14 Day Sensor [...] Primary documented in this encounter Care Teams Tools And Parts Attendant Relationship Specialty Start Date End Date Elsewhere, Pcp PCP - General Family Medicine 06/15/17 documented as of this encounter
--- OUTSIDE RECORDS SUMMARY | 2023-12-16 07:54 | XMS_ITS ---
Author Organization [facility] Address [address] [place] [address] Care Team Providers Care Cutting Room Supervisor Name Role Phone Unavailable Unavailable Unavailable Surgery Details Not on file Complications Check Surgery Details section. Procedure Estimated Blood Loss Check Surgery Details section. Procedure Findings Check Surgery Details section. Procedure Specimens Taken Check Surgery Details section.
--- OUTSIDE RECORDS SUMMARY | 2023-12-16 07:54 | XMS_ITS | Referral Summary ---
Author Organization [facility] Address [address] [place] [address] Care Team Providers Care Supervisor Braiding Name Role Phone Elsewhere, Pcp Primary Care Provider Unavailabl e Source Comments Patient records contain information from all sites at [facility]. For routine questions regarding patient records, call [phone] during business hours, M-F 8:00 AM - 5:00 PM Central Time. Record requests for emergency care only can be directed to [phone] at any time.[facility] Encounters Date Type Department Care Team Description 10/26/2023 10:48 PM CDT - 10/26/2023 11:59 PM CDT Emergency [facility] [address] [place] [address] Hyperglycemia (Primary Dx) Discharge Disposition: Home or Self Care 09/17/2023 7:59 PM CDT - 09/17/2023 11:59 PM CDT Emergency [facility] [address] [place] [address] Non-ST Elevation Myocardial Infarction (HCC) (Primary Dx) Discharge Disposition: Home or Self Care from Last 3 Months Allergies Active Allergy Reactions Criticality Noted Date Comments Dimethicone-Petrolatum Rash 02/01/2014 Horse [place] Rash 07/16/2016 Silver Sulfate-Foam Bandage Rash 02/02/20 [...] mouth. 11/07/2019 Active FreeStyle João 14 Day [place] misc 02/17/2021 Active FreeStyle João 14 Day [...] Comments Blood Pressure 160/85 04/17/2021 1:03 PM OPERATOR COATING FURNACE Pulse 74 04/17/2021 1:03 PM OPERATOR COATING FURNACE Temperature 36.4 ??C (97.5 ??F) 04/17/2021 1:03 PM CS T Respiratory Rate 14 02/15/2021 1:17 PM OPERATOR COATING FURNACE Oxygen Saturation 95% 02/15/2021 1:17 PM OPERATOR COATING FURNACE Inhaled Oxygen Concentration - - Weight 138 kg (304 lb 3.8 oz) 04/17/2021 1:03 PM OPERATOR COATING FURNACE Height 178 cm (5' 10.08) 04/17/2021 1:03 PM OPERATOR COATING FURNACE Body Mass Index 43.55 04/17/2021 1:03 PM OPERATOR COATING FURNACE Plan of Treatment Not on file Procedures [...] PROCEDURES from Last 3 Months Care Teams Supervisor Braiding Relationship Specialty Start Date End Date Elsewhere, Pcp PCP - General Family Medicine 06/15/17
== END 2023-12-16 07:51 | disposition home or self-care (01) ==
LOC: WOUND 07:50
PROVIDERS: PCP Family Medicine; Visit Provider Nurse Practitioner Family
DX: I87.312 Chronic venous hypertension (idiopathic) with ulcer of left lower extremity (principal); I87.2 Venous insufficiency (chronic) (peripheral); I89.0 Lymphedema, not elsewhere classified; E11.622 Type 2 diabetes mellitus with other skin ulcer; L97.322 Non-pressure chronic ulcer of left ankle with fat layer exposed
CPT/HCPCS: G0463

== ENCOUNTER 2023-12-23 07:52 | Outpatient (CLI) | payer OTHER, SELFPAY ==
--- OUTSIDE RECORDS SUMMARY | 2023-12-23 07:54 | XMS_ITS | Clinical Summary ---
Author Organization [facility] Address [address] [place] [address] Care Team Providers Care Power And Recovery Shift Engineer Name Role Phone Munir Sahu MD Primary Care Provider [phone] Allergies Active Allergy Reactions Criticality Noted Date [...] acetaminophen (TYLENOL) 325 MG tabletIndications: Prostate cancer Take 3 tablets (975 mg) by mouth every 6 hours as needed for pain 11/07/2019 Active oxyCODONE (ROXICODONE) 5 MG tabletIndications: Prostate cancer Take 1-2 tablets (5-10 mg) by mouth every 3 hours as needed for breakthrough pain 15 tablet 11/07/2019 Active senna-docusate (SENOKOT-S/PERICOL JOSE) 8.6-50 MG tabletIndications: Prostate cancer Take 1 tablet by mouth 2 times [...] Advance Directives For more information, please contact: [phone] * Full Code (Latest Code Status on File) Date Activated Date Inactivated Comments 11/06/2019 2:19 PM 11/07/2019 9:06 PM All basic and advanced life-sustaining interventions are performed as appropriate Question Answer Comments Code status determined by: Unable to det ermine; FULL CODE until documents or legal decision maker available Care Teams Power And Recovery Shift Engineer Relationship Specialty Start Date End Date Munir Sahu MD PCP - General Family Practice 10/22/19
--- OUTSIDE RECORDS SUMMARY | 2023-12-23 07:54 | XMS_ITS | Referral Summary ---
Author Organization [facility] Address [address] [place] [address] Care Team Providers Care Test Kitchen Home Economist Name Role Phone Munir Sahu MD Primary [...] Advance Directives For more information, please contact: [phone] * Full Code (Latest Code Status on File) Date Activated Date Inactivated Comments 11/06/2019 2:19 PM 11/07/2019 9:06 PM All basic and advanced life-sustaining interventions are performed as appropriate Question Answer Comments Code status determined by: Unable to det ermine; FULL CODE until documents or legal decision maker available Care Teams Test Kitchen Home Economist Relationship Specialty Start Date End Date Munir Sahu MD PCP - General Family Practice 10/22/19
--- OUTSIDE RECORDS SUMMARY | 2023-12-23 07:54 | XMS_ITS | Data Portability ---
Author Organization [place] [facility] Address [address] [place] [address] Care Team Providers Care Radiology Ct Technologist Name Role Phone GORDY SOL Primary Care Provider Assessment Encounter Date Assessment Date Assessment LastModified by Organization Details LastModified Time 11/21/2019 11/21/2019 59M with [id number] He[place] 3+4=7 prostate cancer s/p RALP. Discussed pathology, risk of recurrence, need for ongoing PSA monitoring. Small anastomotic leak, will cont Choi x 1 more week. Worsened LE edema, likely chronic, but will check LE u/s to be sure no DVT. [email or web address] Not available 11/21/2019 14:07:03 01/02/2020 01/02/2020 59M with [id number] [place] 3+4=7 prostate cancer s/p RALP. 1) Prostate cancer - f/u 4 months with PSA 2) EVETTE, moderate - cont Kegels - consider PFPT 3) ED - Cialis PRN [email or web address] Not available 01/02/2020 09:34:03 05/01/2020 05/01/2020 60M with [id number] [place] 3+4=7 prostate cancer s/p RALP 6 months ago. MICHAEL. 1) Prostate cancer - f/u 6 months with PSA 2) EVETTE, moderate - cont Kegels - consider PFPT 3) ED - Cialis PRN [email or web address] Not available 05/01/2020 10:47:29 10/24/2020 10/24/2020 60M with [id number] [place] 3+4=7 prostate cancer s/p RALP 1 [...] floor therap y referr al 2020 021 [facility], [address], [facility] [address], [place], [address], 09:57:49 Procedures None record ed. Surgeries None record ed. Imaging None record ed. Medication Orders None record ed. Patient TargetsNo targets recorded. Patient Instructions Encounter Date Encounter Id Patient Instructions Last Modified By Organization Details Last Modified Time 11/28/2019 [id number] To follow up sumaya Doshi at his [...] Not Available [facility] [address], [place], [address], 05/01/2020 10:40:29 02/11/2020 lab* PSA <0.04 normal Not Available No t Available 01/07/2020 12:33:24 01/02/2020 PSA, serum or plasm a PSA, Total <0.04 ng/Ml Not Available [facility] [address], [place], [address], 01/02/2020 09:14:10 10/25/19 21 10/24/2020 PSA, serum or plasm a PSA, Total <0.04n g/mL Not Available [facility] [address], [place], [address], 10/24/2020 10:45:30 11/23/19 20 11/21/2019 CT, pelvi s, w/o contr ast No observ ation record ed. cedric Not Available 17:13:18 Result Notes None recorded. Problems Name Problem SNOMED Code Status Onset Date Resolution Date Notes Provider Name and Address Organization Details Recorded Time Carcinoma of prostate 422466266 Active 2019 Caroline kruger [facility] 0 10:59:25 Male urinary stress incontinence 328502338 Active 2020 Momo mcfarlane MD, PHD [address] [place] [address],[address] [place] [address], [phone], [facility] 10:47:38 Primary erectile dysfunction 453339778 Active 2020 Momo mcfarlane MD, PHD [address] [place] [address],[address] [place] [address], [phone], [facility] 10:47:58 Problem Notes None recorded. Procedures Surgical History Date Name Laterality Status Provider Name and Address Organization Details Recorded Time 10/25/19 21 Blood Draw/LOGGING CONTRACTOR/PSA RESULTS completed Momo baez MD, PHD [address] [place] [address],[address], [place], [address], [facility] 10/24/2020 10:45:26 05/01/19 21 Blood Draw/LOGGING CONTRACTOR/PSA RESULTS completed Momo baez MD, PHD [address] [place] [address],[address], [address], [facility] 05/01/2020 10:40:25 01/02/20 20 Blood Draw/LOGGING CONTRACTOR/PSA RESULTS completed Janice Ayala [facility] 01/02/2020 09:14:04 11/28/19 20 Choi Catheter Removal completed Caroline Smith [facility] 02/04/2020 12:00:10 Prostatectomy completed Momo baze MD, PHD [address] [place] [address],[address], [address], [facility] 10/24/2020 10:44:48 colonoscopy completed Monica Awan [facility] 12/09/2020 10:47:07 Imaging Results Imaging Date Name Status LastModified by Organiz ation Details LastModified Time 11/21/2019 CT, pelvis, w/o contrast completed cedric Information not available 11/29/2019 17:13:18 Procedure Notes None recorded. Medical Equipment None Reported. Allergies Allergen ID Allergen Name Allergen Category Reaction Reaction Severity Criticality Documentation Date Start Date Code Code System Note Provider Name and Address Organization Details Recorded Time 629491 silver medicatio n Not available Not available Not available 11/21/2019 37244 43 RxNorm Caroline Rojasyoandy kruger [facility] 0 11:09:54 843332 adhesive tape environme nt,medica tion Not available Not available Not available 11/21/2019 Caroline Bobyoandy kruger [facility] 0 11:10:01 Medications Name Sig [...] Updated DateTime 01/02/2020 180.34 cm 39.3 kg/m2 643966.05 g Caroline Luis [facility] 01/02/2020 09:09:40 Date Recorded Body height Body mass index (BMI) Body weight Provider Name and Address Organization Details Last Updated DateTime 05/01/2020 180.34 cm 39.3 kg/m2 756233.05 g Momo baez MD, PHD [address] [place], [place] [address] [place] [address] 05/01/2020 10:39:59 Date Recorded Body height Body mass index (BMI) Body weight Provider Name and Address Organization Details Last Updated DateTime 10/24/2020 180.34 cm 39.7 kg/m2 617972.83 g Momo baez MD, PHD [address] [place] [address] 10/24/2020 10:44:13 Date Recorded Body height Body mass index (BMI) Body weight Provider Name and Address Organization Details Last Updated DateTime 11/21/2019 180.34 cm 39.3 kg/m2 002816.05 g Caroline Smith [facility] 11/21/2019 11:09:04 Social History Question Answer Notes LastModified by Organizat ion Details LastModified Time Tobacco Smoking Status Never Smoker Caroline kruger [facility] 11/21/2019 11:10:15 What Is Your Level [...] Age of this Age Resolved Age Notes LastModified by Organization Details LastModified Time Father No current problems or disability mgneiting Not available 11/20 11:10:09 Mother No current problems or disability mgneiting Not available 11/20 11:10:09 Medical History Condition Response Diabetes Y Cancer Y Past Encounters Encounter ID Performer Location Encounter Start Date Encounter Closed Date Diagnosis/Indication Diagnosis SNOMED-CT Code Diagnosis ICD10 Code [id number] Momo beard MD, PHD [facility] [address] [place] [address] 11/21/2019 10:45:55 11/21/2019 15:00:28 Malignant tumor of prostate 351781455 C61 [id number] Caroline Gneiting [facility] [employer] [address] [place] [address] 11/28/2019 09:57:13 02/06/2020 03:54:17 [id number] Momo beard MD, PHD [facility] [employer] [facility] [address] [place] [address] 01/02/2020 08:46:59 01/02/2020 14:22:16 Malignant tumor of prostate 345839250 C61 [id number] Momo beard MD, PHD [facility] [employer] [facility] [address] [place] [address] 05/01/2020 09:26:51 05/01/2020 12:03:29 Malignant tumor of prostate 828497551 C61 Primary er ectile dysfunction 140958825 N52.9 [id number] Momo beard MD, PHD [facility] [employer] [facility] [address] [place] [address] 10/24/2020 10:28:04 10/27/2020 16:45:05 Carcinoma of prostate 885813230 C61 Malignant tumor of prostate 367440391 C61 Primary er ectile dysfunction 833345613 N52.9 Male urina ry stress incontinence 990095740 N39.3 Health Concerns Section Related Observation LastModified by Organization Detai ls LastModified Time None Recorded Concern Status LastModified by Organization Details LastModified Time None Recorded Advance Directives Directive None Recorded Payers Encounter Date Sequence Insurance Name Policy Number Policy Archibald Covered Member ID Archibald Member ID Guarantor Name 11/21/2019 1 [facility] [id number] Julien Gonsalvesretmaynor [id number] Julien Ridley 11/28/2019 1 [facility] [id number] Julien Gonsalvesretson [id number] Julien Ridley 01/02/2020 1 [facility] [id number] Julien Gonsalvesretson [id number] Julien Ridley 05/01/2020 1 [facility] [id number] Julien Gonsalvesretson [id number] Julien Ridley 10/24/2020 1 [facility] [id number] Julien Gonsalvesretson [id number] Julien Ridley Notes Date Note Type Note Provider Name and Address Organization Details Recorded Time 11/21/2019 text/html HPI Notes: 59M s /p RALP 11/06/19 for [id number] [place] 3+4=7 prostate cancer (0/12 LN, -SMS) Overall [...] 05/09 Momo Holliday MD, PHD [address] [facility] [address], [place], [address], [facility] 11/21/2019 14:07:42 01/02/2020 text/html HPI Notes: 59M with [id number] Heidy 3+4=7 prostate cancer (0/12 LN, -SMS) s/p RALP 11/06/19. Small anastomotic leak, catheter removed 11/28/19. Overall doing well. C/o some leakage with BMs and position changes. Uses multiple depends per day...... LE u/s to eval for dvt last visit was negative PSA Results 07/27/19: 6.5 01/02/20: <0.04 UF: 4/5 EF: 5/5 Pre-op EF: 2/5 Momo Holliday MD, PHD [address] [place] [address],[address], [address], [facility] 01/02/2020 09:35:54 05/01/2020 text/html HPI Notes: 60M with [id number] [place] 3+4=7 prostate cancer (0/12 LN, -SMS) s/p RALP 11/06/19. Small anastomotic leak, catheter removed 11/28/19. Overall doing well. C/o some leakage with BMs and position changes. Uses 4ppd which is improvement. No problems with incisions. PSA Results 07/27/19: 6.5 01/02/20: <0.04 05/01/20: <0.04 UF: 3/5 EF: 5/5 Pre-op EF: 2/5 Momo Holliday MD, PHD [address] [place] [address], [address], [facility] 05/01/2020 10:48:15 10/24/2020 text/html HPI Notes: 60M with [id number] [place] 3+4=7 prostate cancer (0/12 LN, -SMS) s/p RALP 11/06/19 Overall doing well. C/o some leakage with BMs and position changes and sexual activity. Uses 4ppd still. No problems with incisions. PSA Results 07/27/19: 6.5 01/02/20: <0.04 05/01/20: <0.04 10/24/20: <0.04 UF: 3/5 EF: 5/5 Pre-op EF: 2/5 Momo Holliday MD, PHD [address] [place] [address],[place] [address], [place], [address], [facility] 10/24/2020 11:30:55
--- OUTSIDE RECORDS SUMMARY | 2023-12-23 07:55 | XMS_ITS | Clinical Summary ---
Author Organization [facility] Address [address] [place] [address] Care Team Providers Care Wood Mechanist Name Role Phone Elsewhere, Pcp Primary Care Provider Unavailabl e Source Comments Patient records contain information from all sites at [facility]. For routine questions regarding patient records, call [phone] during business hours, M-F 8:00 AM - 5:00 PM Central Time. Record requests for emergency care only can be directed to [phone] at any time.[facility] Allergies Active Allergy Reactions Criticality Noted Date Comments Dimethicone-Petrolatum Rash 02/01/2014 Horse [place] Rash 07/16/2016 Silver Sulfate-Foam Bandage Rash 02/02/20 [...] mouth. 11/07/2019 Active FreeStyle João 14 Day [place] misc 02/17/2021 Active FreeStyle João 14 Day [...] Emergency [facility] [address] [facility] [place] [phone] Hyperglycemia (Primary Dx) Discharge Disposition: Home or [...] Comments Blood Pressure 160/85 04/17/2021 1:03 PM [employer]PRODUCTS PUMP OPERATOR Pulse 74 04/17/2021 1:03 PM BYPRODUCTS PUMP OPERATOR Temperature 36.4 ??C (97.5 ??F) 04/17/2021 1:03 PM CS T Respiratory Rate 14 02/15/2021 1:17 PM [employer]PRODU[employer] PUMP OPERATOR Oxygen Saturation 95% 02/15/2021 1:17 PM [employer]PRODU[employer] PUMP OPERATOR Inhaled Oxygen Concentration - - Weight 138 kg (304 lb 3.8 oz) 04/17/2021 1:03 PM [employer]PRODU[employer] PUMP OPERATOR Height 178 cm (5' 10.08) 04/17/2021 1:03 PM [employer] PUMP OPERATOR Body Mass Index 43.55 04/17/2021 1:03 PM [employer]PRODU[employer] PUMP OPERATOR Plan of Treatment Health Maintenance Due [...] Depression Screening (Annual PHQ-2) 04/04/2023 COVID-19 Vaccine (4 - 2022-2 4 season) 2023 02/06/2021, 07/10/2020, 06/12/2020 Influenza [...] Procedure Name Priority Date/Time Associated Diagnosis Comments HEMOGLOBIN A1C, B Routine 01/08/2014 2:5 3 PM CDT LIPID PANEL, S Routine 01/08/2014 10:16 AM CDT COMPREHENSIVE METABOLIC PANEL, S/P Routine 01/08/2014 10:16 AM CDT from Last 3 Months or Most Recently Relevant to Health Maintenance Results * (ABNORMAL) Hemoglobin A1c (01/08/2014 2:53 PM CDT) Hemoglobin A1c, B 6.80(H) <=5.60 A1C POWERCHART Blood 01/08/2014 2:53 PM CDT Curtis Avery M.D. LAB BLOOD ADD-O N POWERCHART * (ABNORMAL) Lipid Panel (01/08/2014 10:16 AM CDT) Calculated LDL 101(H) 0 - 100 MGDL POWERCHART Total Cholesterol/HDL Ratio 4.81(H) 2.20 - 4.40 POWERCHART Cholesterol, Total 178 <=200 MGDL POWERCHART HX HDL 37(L) 40 - 60 MGDL POWERCHART Triglycerides 201(H) <=150 MGDL POWERCHART HXLDL/HDL 3 POWERCHART Blood 01/08/2014 10:1 6 AM CDT Curtis Avery M.D. LAB BLOOD ADD-O N POWERCHART from Last 3 Months or Most Recently Relevant to Health Maintenance Care Teams Wood Mechanist Relationship Specialty Start Date End Date Elsewhere, Pcp PCP - General Family Medicine 06/15/17
--- OUTSIDE RECORDS SUMMARY | 2023-12-23 07:55 | XMS_ITS | Encounter Summary ---
Author Organization [facility] Address [address] [place] [address] Care Team Providers Care Regulatory Associate Name Role Phone Elsewhere, Pcp Primary Care Provider Unavailabl e Reason for Visit * Reason Comments Chest Pain Encounter Details Date Type Department Care Team (Late st Contact Info) Description 09/17/2023 7:59 PM CDT - 09/17/2023 11:59 PM CDT Emergency [facility] [address] [place] [phone] Non-ST Elevation Myocardial Infarction (HCC) (Primary Dx) [...] bandage 12 10/03/2017 FreeStyle João 14 Day [place] misc 02/17/2021 FreeStyle João 14 Day Sensor [...] Primary documented in this encounter Care Teams Regulatory Associate Relationship Specialty Start Date End Date Elsewhere, Pcp PCP - General Family Medicine 06/15/17 documented as of this encounter
--- OUTSIDE RECORDS SUMMARY | 2023-12-23 07:55 | XMS_ITS ---
Author Organization [facility] Address [address] [place] [address] Care Team Providers Care Mission Analyst Name Role Phone Unavailable Unavailable Unavailable Surgery Details Not on file Complications Check Surgery Details section. Procedure Estimated Blood Loss Check Surgery Details section. Procedure Findings Check Surgery Details section. Procedure Specimens Taken Check Surgery Details section.
--- OUTSIDE RECORDS SUMMARY | 2023-12-23 07:55 | XMS_ITS | Encounter Summary ---
Author Organization [facility] Address [address] [place] [address] Care Team Providers Care Laborer Golf Course Name Role Phone Elsewhere, Pcp Primary Care Provider Unavailabl e Reason for Visit * Reason Comments Weakness - Generalized Hyperglycemia Encounter Details Date Type Department Care Team (Late st Contact Info) Description 10/26/2023 10:48 PM CDT - 10/26/2023 11:59 PM CDT Emergency [facility] [address] [place] [phone] Hyperglycemia (Primary Dx) Discharge Disposition: Home or [...] bandage 12 10/03/2017 FreeStyle João 14 Day [place] misc 02/17/2021 FreeStyle João 14 Day Sensor [...] Primary documented in this encounter Care Teams Laborer Golf Course Relationship Specialty Start Date End Date Elsewhere, Pcp PCP - General Family Medicine 06/15/17 documented as of this encounter
--- OUTSIDE RECORDS SUMMARY | 2023-12-23 07:55 | XMS_ITS | Referral Summary ---
Author Organization [facility] Address [address] [place] [address] Care Team Providers Care Insurance Defense Attorney Name Role Phone Elsewhere, Pcp Primary Care Provider Unavailabl e Source Comments Patient records contain information from all sites at [facility]. For routine questions regarding patient records, call [phone] during business hours, M-F 8:00 AM - 5:00 PM Central Time. Record requests for emergency care only can be directed to [phone] at any time.[facility] Encounters Date Type Department Care Team Description 10/26/2023 10:48 PM CDT - 10/26/2023 11:59 PM CDT Emergency [facility] [address] [place] [address] Hyperglycemia (Primary Dx) Discharge Disposition: Home or Self Care from Last 3 Months Allergies Active Allergy Reactions Criticality Noted Date Comments Dimethicone-Petrolatum Rash 02/01/2014 Horse [place] Rash 07/16/2016 Silver Sulfate-Foam Bandage Rash 02/02/20 [...] mouth. 11/07/2019 Active FreeStyle João 14 Day [place] misc 02/17/2021 Active FreeStyle João 14 Day [...] Comments Blood Pressure 160/85 04/17/2021 1:03 PM MULTICULTURAL SERVICES LIBRARIAN Pulse 74 04/17/2021 1:03 PM MULTICULTURAL SERVICES LIBRARIAN Temperature 36.4 ??C (97.5 ??F) 04/17/2021 1:03 PM CS T Respiratory Rate 14 02/15/2021 1:17 PM MULTICULTURAL SERVICES LIBRARIAN Oxygen Saturation 95% 02/15/2021 1:17 PM MULTICULTURAL SERVICES LIBRARIAN Inhaled Oxygen Concentration - - Weight 138 kg (304 lb 3.8 oz) 04/17/2021 1:03 PM MULTICULTURAL SERVICES LIBRARIAN Height 178 cm (5' 10.08) 04/17/2021 1:03 PM MULTICULTURAL SERVICES LIBRARIAN Body Mass Index 43.55 04/17/2021 1:03 PM MULTICULTURAL SERVICES LIBRARIAN Plan of Treatment Not on file Procedures [...] Recently Relevant to Health Maintenance Care Teams Insurance Defense Attorney Relationship Specialty Start Date End Date Elsewhere, Pcp PCP - General Family Medicine 06/15/17
--- OUTSIDE RECORDS SUMMARY | 2023-12-23 07:55 | XMS_ITS | Clinical Summary ---
Author Organization [employer] [facility] s & [facility] Address [place], [place] [address] Care Team Providers Care Computer Network Specialist Name Role Phone Munir Sahu MD Primary Care Provider + [facility], [facility] [phone] Allergies Active Allergy Reactions Criticality Noted Date [...] by insurance) 9 mL 09/28/2023 Active Insulin [place], Disposable, (Susana Pen Needle) 32 gauge x [...] Active amLODIPine (NORVASC) 5 mg tabletIndications: Essential hypertension,CAD, multiple vessel Take 1 Tablet (5 mg) by mouth once daily. 30 Tablet 1 12/13/2023 Active Active Problems Problem Noted Date Diagnosed Date Coronary artery disease invo lving pai[place]-shoshone coronary artery without angina pectoris 10/28/2023 Overview [...] Encounters Date Type Department Care Team Description 12/22/2023 6:51 AM CDT - 12/22/2023 11:59 PM CDT Hospital Encounter [facility] [address] [place] [address] 12/22/2023 Travel 12/21/2023 6:51 AM CDT - 12/21/2023 11:59 PM CDT Hospital Encounter [facility] [address] [place] [address] 12/21/2023 Travel 12/19/2023 9:30 AM CDT Orders Only [facility] [address] [place] [address] 2 scans: (2-Ord) US VENOUS INSUFFICIENCY LOWER EXTREMITY BILATERAL ([id number]) 12/19/2023 7:30 AM CDT - 12/19/2023 11:59 PM CDT Hospital Encounter [facility] [address] [place] [address] 12/19/2023 Travel 12/15/2023 6:57 AM CDT - 12/15/2023 11:59 PM CDT Hospital Encounter [facility] [address] [place] [address] 12/15/2023 Travel 12/14/2023 6:54 AM CDT - 12/14/2023 11:59 PM CDT Hospital Encounter [facility] [address] [facility] [place] [address] 12/14/2023 Travel 12/13/2023 1:30 PM CDT Office Visit [facility] [address] [facility] [address] [place] [address] Kamran Li MD Follow Up (Dr. Li [...] - 12/13/2023 11:59 PM CDT Hospital Encounter [facility] [address], [address] [place] [address] Kamran Li MD CAD, multiple vessel; S/p 3V CABG (SHER-LAD, LISA-ramus, radial-OM), 09/23/2023 12/13/2023 Travel 12/12/2023 7:00 AM CDT - 12/12/2023 11:59 PM CDT Hospital Encounter [facility] [address] [place] [address] 12/12/2023 Telephone [facility] [address] [place] [address] Gina Jaime Cardiovascular Diagnostic Testing (lvm to confirm 12/13/23 stress test appt) 12/12/2023 Travel 12/08/2023 6:56 AM CDT - 12/08/2023 11:59 PM CDT Hospital Encounter [facility] [address] [place] [address] 12/08/2023 Travel 12/07/2023 6:52 AM CDT - 12/07/2023 11:59 PM CDT Hospital Encounter [facility] [address] [place] [address] 12/07/2023 Travel 12/01/2023 6:55 AM CDT - 12/01/2023 11:59 PM CDT Hospital Encounter [facility] [address] [place] [address] 12/01/2023 Travel 11/30/2023 6:55 AM CDT - 11/30/2023 11:59 PM CDT Hospital Encounter [facility] [address] [place] [address] 11/30/2023 Travel 11/29/2023 9:09 AM CDT - 11/29/2023 11:59 PM CDT Hospital Encounter [facility] [address] [place] [address] Alejandra Lau PA S/p 3V CABG (SHER-LAD, LISA-ramus, radial-OM), 09/23/2023 11/29/2023 Travel 11/28/2023 7:30 AM CDT Home Care Visit [facility] [address] [place] [phone] Elvira Reyes, RN SN - OASIS DISCHARGE 11/22/2023 10:45 AM CDT Home Care Visit [facility] [address] [place] [phone] Tyson Mejias, PT PT - DISCIPLINE DISCHARGE 11/21/2023 10:00 AM CDT Home Care Visit [address] [phone] Irma Hollins RN SN - HOME VISIT 11/17/2023 7:30 AM CDT Home Care Visit [facility] [address] [place] [phone] Tyson Mejias, PT PT - HOME VISIT 11/15/2023 8:30 AM CDT Home Care Visit [facility] [address] [place] [phone] Tyson Mejias, PT PT - HOME VISIT 11/14/2023 8:30 AM CDT Home Care Visit [address] [phone] Elvira Reyes RN SN - HOME VISIT 11/14/2023 3:30 AM CDT Home Care Visit [address] [phone] Ailyn Varghese RN SN - WOUND/OSTOMY CHART CONSULT 11/11/2023 Telephone [facility] [address] [place] [address] Anibal Quigley MD Referral 11/10/2023 8:00 AM CDT Home Care Visit [facility] [address] [place] [phone] Tyson Mejias, PT PT - HOME VISIT 11/09/2023 10:00 AM CDT Home Care Visit [facility] [address] [place] [phone] Isa Cintron, CHITRA SN - HOME VISIT 11/09/2023 Orders Only [facility] [address] [place] [address] Antoinette Lopez PA <No scans attached> 11/08/2023 Home Care Visit [facility] [address] [place] [phone] Tyson Mejias, PT CARE COORDINATION 11/07/2023 8:15 AM CDT Home Care Visit [facility] [address] [place] [phone] Tyson Mejias, PT PT - INITIAL ASSESSMENT 11/07/2023 7:30 AM CDT Home Care Visit [facility] [address] [place] [phone] Lexi Esteves, CHITRA SN - HOME VISIT 11/04/2023 Home Care Visit [facility] [address] [place] [phone] Elvira Reyes RN CARE COORDINATION 11/04/2023 Telephone [facility] [address] [facility] [address] [place], [place] [phone] Gregorio Olivia MD Medication Management (amlodipine) 11/02/2023 8:30 AM CDT Home Care Visit [facility] [address] [place] [phone] Nohemy Anna LPN FIRE POT OPERATOR - HOME VISIT 10/31/2023 3:00 PM CDT Home Care Visit [facility] [address] [place] [phone] Evie Young RN SN - HOME VISIT 10/31/2023 Procedure Only [facility] [address] [place] [phone] Device Check (Remote Leadless Pacemaker Ca... 10/28/2023 5:20 AM CDT - 10/28/2023 1:20 PM CDT Hospital Encounter [facility] [address] [place] [address] Kamran Li MD Essential hypertension (Primary Dx); CAD, multiple vessel; S/p 3V CABG (SHER-LAD, LISA-ramus, radial-OM), 09/23/2023 Discharge Disposition: Home Self Care 10/28/2023 Home Care Visit [facility] [address] [place] [phone] Elvira Reyes KITCHEN CLERK NOTE 10/28/2023 Travel 10/27/2023 8:30 AM CDT Home Care Visit [facility] [address] [place] [phone] Elvira Reyes RN SN - HOME VISIT 10/26/2023 10:48 PM CDT - 10/27/2023 12:53 AM CDT [facility] [address], [place] [address] Misha Styles III, MD Insomnia, unspecified type (Primary Dx); Anxiety Discharge Disposition: Home Self Care 10/26/2023 Travel 10/24/2023 9:00 AM CDT Home Care Visit [facility] [address] [place] [address] Elvira Reyes RN SN - HOME VISIT 10/21/2023 Home Care Visit [facility] [address] [place] [phone] Elvira Reyes RN CARE COORDINATION 10/21/2023 Telephone [facility] [address] [place] [address] Kary Aiken MD Pre Procedure 10/21/2023 Telephone [facility] [address] [place] [phone] Jen Greenberg NP Results 10/20/2023 1:50 PM CDT Orders Only [facility] [address] [place] [address] Lab 10/20/2023 1:00 PM CDT Office Visit [facility] [address] [place] [phone] Jen Greenberg NP Follow Up (3-4 weeks [...] 10/19/2023 7:45 AM CDT Home Care Visit [facility] [address] [place] [address] Elvira Reyes RN SN - HOME VISIT 10/17/2023 5:00 AM CDT Home Care Visit [facility] [address] [place] [phone] Isa Cintron RN SN - HOME VISIT 10/12/2023 10:00 AM CDT Home Care Visit [facility] [address] [place] [phone] Elvira Reyes RN SN - HOME VISIT 10/10/2023 9:45 AM CDT Home Care Visit [facility] [address] [place] [phone] Elvira Reyes RN SN - HOME VISIT 10/07/2023 8:00 AM CDT Home Care Visit [facility] [address] [place] [phone] Elvira Reyes RN SN - HOME VISIT 10/05/2023 12:30 PM CDT Home Care Visit [facility] [address] [place] [phone] Elvira Reyes RN SN - HOME VISIT 10/04/2023 2:00 PM CDT Procedure Only [facility] [address] [facility] [address] [place] [phone] Device Check (IN CLINIC [employer] LEADLESS... 10/04/2023 Travel 10/03/2023 7:00 AM CDT Home Care Visit [facility] [address] [place] [phone] Lexi Esteves RN SN - HOME VISIT 10/03/2023 1:00 AM CDT Home Care Visit [facility] [address] [place] [phone] Ailyn Varghese RN SN - WOUND/OSTOMY CHART CONSULT 10/03/2023 Telephone [facility] [address] [place] [address] Ailyn Varghese, solar photovoltaic designer (Vascular and or Wound clinic referral is needed. Supplies with [employer]) 09/30/2023 9:30 AM CDT Home Care Visit [facility] [address] [place] [phone] Lexi Esteves, CHITRA SN - OASIS START OF CARE 09/30/2023 Plan of Care Documentation [facility] [address] [place] [phone] 09/28/2023 Orders Only [facility] [address] [facility] [address] [place] [address] Alejandra Lau PA <No scans attached> 09/23/2023 2:03 PM CDT Anesthesia Event [facility] [address] [place] [address] Marylou De Anda MD Ludwig Sandhya Owens, VERO 09/23/2023 12:45 PM CDT - 09/23/2023 8:02 PM CDT Surgery [address] [place] [address] Gregorio Olivia MD CORONARY ARTERY BYPASS X 3 WITH RADIAL HARVEST, AND TEMP VENTRICULAR PACING WIRES 09/18/2023 2:58 AM CDT - 09/28/2023 2:30 PM CDT Hospital Encounter [place] [address] [place] [address] s, U Hospitalist Wendy Rodriguez, DO [place], MD Cristal Gallardo, Munir Muhammad MD S/p 3V CABG (SHER-LAD, LISA-ramus, radial-OM), 09/23/2023 (Primary Dx); Ulcer of left lower extremity with fat layer exposed (HC) [L97.922]; NSTEMI (non-ST elevated myocardial infarction) (HC); CAD, multiple vessel; Type 2 diabetes mellitus with complication (HC); Essential hypertension Discharge Disposition: Home Health from Last 3 Months Family History Medical [...] Care Team (Late st Contact Info) Description 01/02/2024 7:00 AM CDT Appointment [facility] [address] [place] [address] 01/04/2024 7:00 AM CDT Appointment [facility] [address] [place] [address] 01/11/2024 7:00 AM CDT Appointment [facility] [address] [place] [address] 01/12/2024 7:00 AM CDT Appointment [facility] [address] [place] [address] 01/12/2024 2:00 PM CDT Office Visit [facility] [address] [place] [address] Chriss Whittington MD [address] [facility] [address] [place] [address] 01/16/2024 7:00 AM CDT Appointment [facility] [address] [place] [address] 01/18/2024 7:00 AM CDT Appointment [place] [address] [place] [address] 01/19/2024 7:00 AM CDT Appointment [facility] [address] [place] [address] 01/23/2024 7:00 AM CDT Appointment [facility] [address] [place] [address] 01/25/2024 7:00 AM CDT Appointment [facility] [address] [place] [address] 01/26/2024 7:00 AM CDT Appointment [facility] [address] [place] [address] 01/30/2024 7:00 AM CDT Appointment [facility] [address] [place] [address] 02/01/2024 7:00 AM CDT Appointment [facility] [address] [place] [address] 02/02/2024 7:00 AM CDT Appointment [facility] [address] [place] [address] 02/06/2024 7:00 AM LINUX UNIX ADMINISTRATOR Appointment [facility] [address] [place] [address] 02/08/2024 7:00 AM LINUX UNIX ADMINISTRATOR Appointment [facility] [address] [place] [address] 02/09/2024 7:00 AM LINUX UNIX ADMINISTRATOR Appointment [facility] [address] [place] [address] 02/13/2024 7:00 AM LINUX UNIX ADMINISTRATOR Appointment [facility] [address] [facility] [place] [address] 02/15/2024 7:00 AM LINUX UNIX ADMINISTRATOR Appointment [facility] [address] [place] [address] 02/16/2024 7:00 AM LINUX UNIX ADMINISTRATOR Appointment [facility] [address] [facility] [place] [address] 02/20/2024 7:00 AM LINUX UNIX ADMINISTRATOR Appointment [facility] [address] [place] [place] [address] 02/27/2024 Procedure Only [facility] [address] [place] [phone] Health Maintenance Due Date Last Done Comments [...] Priority Date/Time Associated Diagnosis Comments SCAN-CARDIAC REHABILITATION 12/22/2023 7:01 AM CDT SCAN-CARDIAC REHABILITATION 12/21/2023 7:09 AM CDT US VENOUS INSUFFICIENCY LOWER EXTREMITY BILATERAL Routine 12/19/2023 1:21 PM CDT Venous ulcer (HC) SCAN-CARDIAC REHABILITATION 12/19/2023 7:28 AM CDT SCAN-CARDIAC REHABILITATION 12/15/2023 7:01 AM CDT SCAN-CARDIAC [...] Routine 09/23/2023 4:34 [address] [facility] AN INTRODUCER 2 LUMEN PERFORMABLE Routine 09/23/2023 4:34 PM CDT [facility] DRSG PR1 Routine 09/23/2023 4:34 PM CDT HC DRSG PR5 Routine 09/23/2023 4:34 PM CDT [facility] TUBING PR5 Routine 09/23/2023 4:34 PM CDT [facility] KIT MONITORING PR5 Routine 09/23/19 4:34 PM CDT [facility] ADPTR PR1 Routine 09/23/2023 4:34 PM CDT [...] Case Notes AVERAGE T/FPERFUSION-Confirmed w/Shayna for 1315 #[id number] EK 6/20OR STAFF BYPASS CORONARY ARTERY 01 2023 1:33 PM CDT Case Notes AVERAGE T/FPERFUSION-Confirmed w/Shayna for 1315 #[id number] EK 6/20OR STAFF GLUCOSE METER Timed 09/23/2023 [...] SCAN-CARDIAC STRIP 09/22/2023 1: 22 AM CDT LIPID PANEL Early AM 09/18/2023 4:17 AM CDT from Last 3 Months or Most Recently Relevant to Health Maintenance Results * SCAN-CARDIAC REHABILITATION (12/22/2023 7:01 AM CDT) Only the most recent of11 resultswithin the time period is included. Scanner OTHER * US VENOUS INSUFFICIENCY LOWER EXTREMITY BILATERAL (12/19/2023 1:21 PM CDT) Anatomical Region Laterality Modality LEGS Ultrasound 12/19/2023 9:22 AM CDT Narrative 12/19/2023 5:10 PM CDT VASCULAR ULTRASOUND REPORT JOSE GUADALUPE JENKINSKG Accession#: ?? [id number] : ?1960 ??Study Date: ?? 12/19/2023 9:22:18 AM Age: ?63 years ?? Tech: ? PMK Gender: M ?Referring MD: ANTOINETTE LOPEZ Site: [facility] Study performed: ?Duplex US venous insufficiency, (bilateral). Indication for study: non-healing wound in LE Study Quality: ?Good TECHNIQUE: Lower/upper extremity veins were examined with duplex ultrasound, color-flow and spectral Doppler per exam protocol. Vein compressibility by transducer pressure was used to evaluate presence/absence of DVT/SVT. Venous flow and competence was evaluated by flow augmentation maneuvers per exam protocol. Insufficiency studies were performed with the patient in upright position, with vein diameters measured in mm, and reflux. IMPRESSION: 1. No evidence of deep vein thrombosis in the right and left lower extremity. 2. No evidence of deep venous insufficiency in the right and left lower extremity. 3. Superficial venous insufficiency was noted in the right greater saphenous vein at knee, upper calf, mid calf and lower calf. 4. Superficial venous insufficiency was noted in the right small saphenous vein at proximal calf, mid calf and distal calf. 5. Incompetent varicose and/or renewals manager veins as listed below. COMPARISON: No prior study available for comparison. FINDINGS: Right Lower Extremity: No deep venous insufficiency. No evidence of DVT. Perforating vein in dst med calf, 3.3 mm diameter, 0.8 sec reflux. Perforating vein in prox thigh, 4.0 mm diameter, 0.8 sec reflux. Varicose vein at prox calf, 2.9 mm diameter, 2.1 sec reflux. Varicose vein at post dst thigh, 4.4 mm diameter, 1.2 sec reflux. Left Lower Extremity: No deep venous insufficiency. No evidence of DVT. Varicose vein at med thigh, 4.0 mm diameter, 11.0 sec reflux. Varicose vein at ant dst thigh, 5.7 mm diameter, 0.5 sec reflux. MEASUREMENTS: + +--------+----+--------+------+ RIGHT ? Compress SVT Diameter Reflux ?(mm) ?? (secs) + +--------+----+--------+------+ SFJ ? + +--------+----+--------+------+ GSV THIGH PRX ? + +--------+----+--------+------+ GSV THIGH MID ? + +--------+----+--------+------+ GSV THIGH DST ? + +--------+----+--------+------+ GSV KNEE ? yes ? None ??3.4 ?? 1.1 ?? + +--------+----+--------+------+ GSV CALF UPPER yes ? None ??3.5 ?? 2.3 ?? + +--------+----+--------+------+ GSV CALF MID ?? yes ? None ??3.6 ?? 0.5 ?? + +--------+----+--------+------+ GSV CALF LOW ?? yes ? None ??3.3 ?? 1.0 ?? + +--------+----+--------+------+ SSV KNEE/SPJ ?? yes ? None ??1.7 ?? 0.0 ?? + +--------+----+--------+------+ SSV CALF PRX ?? yes ? None ??2.6 ?? 2.5 ?? + +--------+----+--------+------+ SSV CALF MID ?? yes ? None ??3.3 ?? 1.2 ?? + +--------+----+--------+------+ SSV CALF DST ?? yes ? None ??3.3 ?? 1.7 ?? + +--------+----+--------+------+ + +--------+----+ +------+ LEFT ? Compress SVT Diameter (mm) Reflux ? (secs) + +--------+----+ +------+ SFJ ? + +--------+----+ +------+ GSV THIGH PRX ? + +--------+----+ +------+ GSV THIGH MID ? + +--------+----+ +------+ GSV THIGH DST ? + +--------+----+ +------+ GSV KNEE ? + +--------+----+ +------+ GSV CALF UPPER ? + +--------+----+ +------+ GSV CALF MID ?? yes ? None ? 2.4 ? 0.0 ?? + +--------+----+ +------+ GSV CALF LOW ?? yes ? None ? 2.2 ? 0.0 ?? + +--------+----+ +------+ SSV KNEE/SPJ ?? yes ? None ? 3.0 ? 0.0 ?? + +--------+----+ +------+ SSV CALF PRX ?? yes ? None ? 3.0 ? 0.0 ?? + +--------+----+ +------+ SSV CALF MID ?? yes ? None ? 2.1 ? 0.0 ?? + +--------+----+ +------+ can't evaluate Perforating Vein + + + + RIGHT Location Diameter (mm) Reflux (secs) + + + + dst med calf ? 3.3 ? 0.8 ? + + + + prox thigh ? 4.0 ? 0.8 ? + + + + Varicose Veins + + + + RIGHT Location Diameter (mm) Reflux (secs) + + + + prox calf ? 2.9 ? 2.1 ? + + + + post dst thigh ? 4.4 ? 1.2 ? + + + + + + + + LEFT Location Diameter (mm) Reflux (secs) + + + + med thigh ? 4.0 ?11.0 ? + + + + ant dst thigh ? 5.7 ? 0.5 ? + + + + DEEP SYSTEM +----+--------+-----+--------+----+ ? RIGHT ?? RIGHT LEFT ? LEFT ? Compress DVT ?? Compress DVT +----+--------+-----+--------+----+ CFV yes ? None yes ? None +----+--------+-----+--------+----+ PFV yes ? None yes ? None +----+--------+-----+--------+----+ FV ?? yes ? None yes ? None +----+--------+-----+--------+----+ POPV yes ? None yes ? None +----+--------+-----+--------+----+ can't evaluate Anderson Petersen MD. Electronically signed on 12/19/2023 5:10:11 PM This study was performed and interpreted by a service accredited by the Intersocietal Accreditation Commission (IAC/Vascular), www.intersocietal.org/vascular Report generated by [employer]. ??Final ?? Procedure Note Anderson Petersen MD - 12/19/2023 VASCULAR ULTRASOUND REPORT JOSE GUADALUPE RIDLEY : 1960 Study Date: 12/19/2023 9:22:18 AM Age: 63 years Tech: PMK Gender: M Referring MD: ANTOINETTE LOPEZ Site: [facility] Study performed: Duplex US venous insufficiency, (bilateral). Indication for study: non-healing wound in LE Study Quality: Good TECHNIQUE: Lower/upper extremity veins were examined with duplex ultrasound,color-flow and spectral Doppler per exam protocol. Vein compressibility bytransducer pressure was used to evaluate presence/absence of DVT/SVT.Venous flow and competence was evaluated by flow augmentation maneuversper exam protocol. Insufficiency studies were performed with the patientin upright position, with vein diameters measured in mm, and reflux. IMPRESSION: 1. No evidence of deep vein thrombosis in the right and left lowerextremity. 2. No evidence of deep venous insufficiency in the right and left lowerextremity. 3. Superficial venous insufficiency was noted in the right greatersaphenous vein at knee, upper calf, mid calf and lower calf. 4. Superficial venous insufficiency was noted in the right smallsaphenous vein at proximal calf, mid calf and distal calf. 5. Incompetent varicose and/or renewals manager veins as listed below. COMPARISON: No prior study available for comparison. FINDINGS: Right Lower Extremity: No deep venous insufficiency. No evidence of DVT. Perforating vein in dstmed calf, 3.3 mm diameter, 0.8 sec reflux. Perforating vein in prox thigh,4.0 mm diameter, 0.8 sec reflux. Varicose vein at prox calf, 2.9 mmdiameter, 2.1 sec reflux. Varicose vein at post dst thigh, 4.4 mmdiameter, 1.2 sec reflux. Left Lower Extremity: No deep venous insufficiency. No evidence of DVT. Varicose vein at medthigh, 4.0 mm diameter, 11.0 sec reflux. Varicose vein at ant dst thigh,5.7 mm diameter, 0.5 sec reflux. MEASUREMENTS: + +--------+----+--------+------+ RIGHT Compress SVT Diameter Reflux (mm) (secs) + +--------+----+--------+------+ SFJ + +--------+----+--------+------+ GSV THIGH PRX + +--------+----+--------+------+ GSV THIGH MID + +--------+----+--------+------+ GSV THIGH DST + +--------+----+--------+------+ GSV KNEE yes None 3.4 1.1 + +--------+----+--------+------+ GSV CALF UPPER yes None 3.5 2.3 + +--------+----+--------+------+ GSV CALF MID yes None 3.6 0.5 + +--------+----+--------+------+ GSV CALF LOW yes None 3.3 1.0 + +--------+----+--------+------+ SSV KNEE/SPJ yes None 1.7 0.0 + +--------+----+--------+------+ SSV CALF PRX yes None 2.6 2.5 + +--------+----+--------+------+ SSV CALF MID yes None 3.3 1.2 + +--------+----+--------+------+ SSV CALF DST yes None 3.3 1.7 + +--------+----+--------+------+ + +--------+----+ +------+ LEFT Compress SVT Diameter (mm) Reflux (secs) + +--------+----+ +------+ SFJ + +--------+----+ +------+ GSV THIGH PRX + +--------+----+ +------+ GSV THIGH MID + +--------+----+ +------+ GSV THIGH DST + +--------+----+ +------+ GSV KNEE + +--------+----+ +------+ GSV CALF UPPER + +--------+----+ +------+ GSV CALF MID yes None 2.4 0.0 + +--------+----+ +------+ GSV CALF LOW yes None 2.2 0.0 + +--------+----+ +------+ SSV KNEE/SPJ yes None 3.0 0.0 + +--------+----+ +------+ SSV CALF PRX yes None 3.0 0.0 + +--------+----+ +------+ SSV CALF MID yes None 2.1 0.0 + +--------+----+ +------+ can't evaluate Perforating Vein + + + + RIGHT Location Diameter (mm) Reflux (secs) + + + + dst med calf 3.3 0.8 + + + + prox thigh 4.0 0.8 + + + + Varicose Veins + + + + RIGHT Location Diameter (mm) Reflux (secs) + + + + prox calf 2.9 2.1 + + + + post dst thigh 4.4 1.2 + + + + + + + + LEFT Location Diameter (mm) Reflux (secs) + + + + med thigh 4.0 11.0 + + + + ant dst thigh 5.7 0.5 + + + + DEEP SYSTEM +----+--------+-----+--------+----+ RIGHT RIGHT LEFT LEFT Compress DVT Compress DVT +----+--------+-----+--------+----+ CFV yes None yes None +----+--------+-----+--------+----+ PFV yes None yes None +----+--------+-----+--------+----+ FV yes None yes None +----+--------+-----+--------+----+ POPV yes None yes None +----+--------+-----+--------+----+ can't evaluate Anderson Petersen MD. Electronically signed on 12/19/2023 5:10:11 PM This study was performed and interpreted by a service accredited by theIntersocietal Accreditation Commission (IAC/Vascular),[email or web address] Report generated by [employer]. Final Antoinette FAJARDO * NM CARDIAC MPI STRESS TEST (12/13/2023 10:08 AM CDT) Anatomical Region Laterality Modality HEART Nuclear Medicine 12/13/2023 7:07 AM CDT Narrative 12/13/2023 12:48 PM CDT [address], [place] [address] Main: ?Myocardial Perfusion Report ?Rest/Stress 1 Day Single Isotope Gated SPECT imaging with Regadenoson(Lexiscan) stress ARISTIDESJAC JOSE GUADALUPE [facility] Age: 63 : 1960 Nuclear Tech: KKD Exam Date: 12/13/2023 07:07 Gender: M RN/Ex. Auto Tech: LMP/CTL Height: 70.9 in BSA: 2.43 m?? Monitoring Provider: KARY AIKEN Weight: 280 lbs BMI: 39.2 kg/m?? Ordering Provider: KAMRAN LI Location: [facility] Indication: S/P CABG x 3; CAD, multiple [...] / 60 % MPHR: 51 Double Product: [id number] Recovery HR(bpm): 71 Recovery BP(mmHg): 124 / [...] 0 Apical Lateral: 0 Apical Lateral: 0 Sherman: 0 Sherman: 0 Summed Stress Score: 2 Summed Rest [...] left ventricular wall motion. Anderson ??Lolis NOBLES [facility] Accredited Site (Electronically Signed) Final Date: 13 December 2023 12:48 ICD-10 Codes: Z95.1; I25.10 CC Providers: Dr. Munir Sahu Procedure Note Anderson Danielle MD - 12/13/[address], [place] [address] Main: Myocardial Perfusion Report Rest/Stress 1 Day Single Isotope Gated SPECT imaging withRegadenoson(Lexiscan) stress JOSE GUADALUPE RIDLEY ID: [id number] Age: 63 : 1960 Nuclear Tech: KKD Exam Date: 12/13/2023 07:07 Gender: M RN/Ex. Auto Tech: JOSUE Height: 70.9 in BSA: 2.43 m?? Monitoring Provider:KARY AIKEN Weight: 280 lbs BMI: 39.2 kg/m?? Ordering Provider: KAMRAN LI Location: [facility] Indication: S/P CABG x 3; CAD, multiple [...] 142 / 60 % MPHR: 51 Double Product:[id number] Recovery HR(bpm): 71 Recovery BP(mmHg): 124 / [...] 0 Apical Lateral: 0 Apical Lateral: 0 Sherman: 0 Sherman: 0 Summed Stress Score: 2 Summed Rest [...] left ventricular wall motion. Anderson Danielle MD [facility] Accredited Site (Electronically Signed) Final Date: 13 December 2023 12:48 ICD-10 Codes: Z95.1; I25.10 CC Providers: Dr. Munir Sahu Kamran Li MD NM * (ABNORMAL) GLUCOSE METER (11/30/2023 7:54 AM CDT) Only the most recent of39 resultswithin the time period is included. [facility] GLUCOSE METER 151(H) 65 - 100 mg/dL 11/30/2023 7:59 AM CDT [facility] Blood BLOOD SPECIMEN / Unknown 11/30/2023 7:54 AM CDT 11/30/2023 7:59 AM CDT Doctor Unknown CHEMISTRY [facility] [address] [place] [phone] * SCAN-CARDIAC STRIP (10/28/2023 10:55 AM CDT) Scanner OTHER * EKG 12 LEAD (10/28/2023 10:33 AM CDT) Only the most recent of7 resultswithin the time period is included. [facility] Interpretation Sinus rhythm with 1st degree A-V block Otherwise normal ECG When compared with ECG of 26-Oct-2023 23:34, No significant change was found BEYOND NOW Ventricular Rate 74 BPM BEYOND NOW Atrial Rate 74 BPM BEYOND NOW P-R Interval 270 ms BEYOND NOW QRS Duration 96 ms BEYOND NOW QT 426 ms BEYOND NOW QTc 472 ms BEYOND NOW P Wynot 56 degrees BEYOND NOW R Wynot 45 degrees BEYOND NOW T Wynot 70 degrees BEYOND NOW 10/28/2023 10:3 3 AM CDT 10/28/2023 11:07 AM CDT Kamran Li MD EKG ORD Performing Organization Address City/[facility]/ZIP Co de Phone Number BEYOND NOW [place], [place] * (ABNORMAL) ACTIVATED CLOTTING TIME [id number] ACT (10/28/2023 8:56 AM CDT) [facility] ACTIVATED CLOTTING TIME, POCT 304(H) 74 - 125 sec 10/28/2023 12:18 PM CDT [facility] Blood BLOOD SPECIMEN / Unknown 10/28/2023 8:56 AM CDT 10/28/2023 12:18 PM CDT Kamran Li MD HEMATOLOGY [facility] SENDOUT [place]IP [address] [address] [place] [address] * CVL PCI ONLY (10/28/2023 8:19 AM CDT) Anatomical Region Laterality Modality X-Ray Angiograph y 10/28/2023 8:19 AM CDT Narrative Transcriptions Kamran Li MD - 10/28/2023 9:33 AM CDT [facility] Cardiac Catheterization Report Name: JOSE GUADALUPE RIDLEY Event Date: 10/28/2023 08:19 Excellian ID #: [id number] JAKE #: [id number] Diagnostic Physician: KAMRAN LI V[facility]ra Long Term [...] inhibit spasm of the radialgraft. Consent & Outlook Protocol The risks, benefits, and alternatives of the procedure were discussed withthe patient and written informed consent was obtained. Outlook protocol was followed. TIME OUT conducted just prior tostarting procedure confirmed patient identity, site/side, procedure,patient position, and availability of correct equipment and implants (ifapplicable). Staff Name Title KAMRAN LI Compactor Driver Rafaela Bailey RN Nurse Hung Oviedo RTR Machelle Adler RTR Monitor Jimmie Merino CVBonnie Tailing Machine Operator Procedures ? US Guided Access ? [...] 15mm 1 Distal RCA Drug Eluting Stent [place] 3.50 x 22mm Procedure Details Estimated Blood Loss: < 30 ml Specimen Collected: None Level of Sedation Achieved: Moderate Procedure Start: 08:19 Procedure End: 09:22 Procedure Time: 63 min Fluoroscopy Time: 16.2 min Cumulative Air Kerma: 1697 mGy DAP: 28242 mGy/cm2 Contrast: Omnipaque, 230 ml Physiologic Data [...] IV Kamran Li Kendra RN 08:39 Heparin 11461 units IV Kamran Li Kendra RN 08:44 [...] healthcare professional providing the sedation ends personal onmgppyowiuysn-ns-vhcu time with the patient. The medications listed above were verbally ordered by me and read back tome as documented above. Refer to the procedure log report for additional case details. electronically signed on 10/28/2023 9:33:27 AM with status of Final Kamran Li MD [facility] [address], [place] [address] [place] [address] (p) [phone](f) Alejandra FAJARDO CV IMAGING * (ABNORMAL) CBC with Platelets no Differential (10/28/2023 6:35 AM CDT) Only the most recent of4 resultswithin the time period is included. WHITE BLOOD COUNT 5.9 4.5 - 11.0 thou/cu mm 10/28/2023 6:52 AM T [facility] RED BLOOD COUNT 4.27(L) 4.30 - 5.90 mil/cu mm 10/28/2023 6:52 AM T [facility] HEMOGLOBIN 12.6(L) 13.5 - 17.5 g/dL 10/28/2023 6:52 AM T [facility] HEMATOCRIT 38.9 37.0 - 53.0 % 10/28/2023 6:52 AM T [facility] MCV 91 80 - 100 fL 10/28/2023 6:52 AM T [facility] MCH 29.5 26.0 - 34.0 pg 10/28/2023 6:52 AM T [facility] MCHC 32.4 32.0 - 36.0 g/dL 10/28/2023 6:52 AM T [facility] RDW 14.6 11.5 - 15.5 % 10/28/2023 6:52 AM T [facility] PLATELET COUNT 193 140 - 440 thou/cu mm 10/28/2023 6:52 AM T [facility] MPV 9.6 6.5 - 11.0 fL 10/28/2023 6:52 AM CDT [facility] NRBC 0.0 % 10/28/2023 6:52 AM CDT [facility] ABS NRBC 0.0 thou /cu mm 10/28/2023 6:52 AM [facility] Blood BLOOD SPECIMEN / Unknown Venipuncture / Unknown 10/28/2023 6:35 AM CDT 10/28/2023 6:45 AM CDT Gregorio Elizabeth MD HEMATOLOGY [facility] SENDOUT INTERNAL ZIP [address] [place] [address] * (ABNORMAL) Basic Metabolic Panel (10/28/2023 6:35 AM CDT) Only the most recent of11 resultswithin the time period is included. SODIUM 139 136 - 145 mmol/L 10/28/2023 7:19 AM [facility] POTASSIUM 3.8 3.5 - 5.1 mmol/L 10/28/2023 7:19 AM [facility] CHLORIDE 102 98 - 107 mmol/L 10/28/2023 7:19 AM [facility] CO2,TOTAL 25 22 - 29 mmol/L 10/28/2023 7:19 AM [facility] ANION GAP 12 5 - 18 10/28/2023 7:19 AM [facility] GLUCOSE 158(H) 70 - 99 mg/dL 10/28/2023 7:19 AM [facility] CALCIUM 9.4 8.8 - 10.2 mg/dL 10/28/2023 7:19 AM [facility] BUN 19 8 - 23 mg/dL 10/28/2023 7:19 AM [facility] CREATININE 0.97 0.70 - 1.20 mg/dL 10/28/2023 7:19 AM [facility] BUN/CREAT RATIO 20 10 - 20 7:19 AM [facility] eGFR 88(L) >90 mL/min/1.7 3m2 10/28/2023 7:19 AM [facility] Comment:As of 2021, eG FR [...] 6:45 AM CDT Gregorio Elizabeth MD CHEMISTRY [facility] SENDOUT [place] [address] [address] [address] [place] [address] * URINALYSIS MICROSCOPIC (10/26/2023 11:46 PM CDT) RBC None Seen 0-2, None Seen /HPF 10/26/2023 11:55 PM CDT [facility] WBC 0-2 0-2, 3-5, None Seen /HPF 10/26/2023 11:55 PM CDT [facility] BACTERIA Rare None Seen, Rare, Few Bacteria/H PF 10/26/2023 11:55 PM CDT [facility] EPITHELIAL CELLS Few None Seen, Few Epi/HPF 10/26/2023 11:55 PM CDT [facility] Urine URINE SPECIMEN / Unknown Non-Blood / Unknown 10/26/2023 11:46 PM CDT 10/26/2023 11:49 PM CDT Misha Styles III, MD URINE [facility] [address] [phone] * (ABNORMAL) Urinalysis w Reflex Microscopic if Positive (10/26/2023 11:46 PM CDT) COLOR Yellow Yellow Color 10/26/2023 11:52 PM CDT [facility] CLARITY Clear Clear Clarity 10/26/2023 11:52 PM CDT [facility] SPECIFIC GRAVITY,URINE 1.020 1.010, 1.015, 1.020, 1.025 10/26/2023 11:52 PM CDT [facility] PH,URINE 6.0 6.0, 7.0, [...] Styles III, MD URINE [facility] [address] [phone] * (ABNORMAL) CBC WITH AUTO DIFFERENTIAL (10/26/2023 11:29 PM CDT) Only the most recent of2 [...] - 7.0 thou/cu mm 10/26/2023 11:40 PM [facility] ABSOLUTE LYMPHOCYTES 0.9 0.9 - 2.9 thou/cu mm 10/26/2023 11:40 PM [facility] ABSOLUTE MONOCYTES 0.6 <0.9 thou/cu mm 10/26/2023 11:40 PM [facility] ABSOLUTE EOSINOPHILS 0.8(H) <0.5 thou/cu mm 10/26/2023 11:40 PM [facility] ABSOLUTE BASOPHILS 0.0 <0.3 thou/cu mm 10/26/2023 11:40 PM [facility] Blood BLOOD SPECIMEN / Unknown Venipuncture / Unknown 10/26/2023 11:29 PM CDT 10/26/2023 11:31 PM [facility] Misha Styles III, MD HEMATOLO GY [facility] [address] [phone] * SCAN-CARDIAC STRIP (09/28/2023 8:00 AM CDT) Scanner OTHER * PLATELET COUNT (09/28/2023 4:53 AM CDT) Only the most recent of7 resultswithin the time period is included. PLATELET COUNT 239 140 - 440 thou/cu mm 09/28/2023 5:32 AM CDT [facility] MPV 9.2 6.5 - 11.0 fL 09/28/2023 5:32 AM CDT [facility] Blood BLOOD SPECIMEN / Unknown Venipuncture / Unknown 09/28/2023 4:53 AM CDT 09/28/2023 5:21 AM CDT Sandhya FAJARDO HEMATOLOGY [facility] SENDOUT INTERNAL ZIP [address] [place] [address] * WHITE BLOOD COUNT (09/28/2023 4:53 AM CDT) Only the most recent of4 resultswithin the time period is included. WHITE BLOOD COUNT 7.3 4.5 - 11.0 thou/cu mm 09/28/2023 5:32 AM CDT [facility] NRBC 0.0 % 09/28/2023 5:32 AM CDT [facility] ABS NRBC 0.0 thou /cu mm 09/28/2023 5:32 AM CDT [facility] Blood BLOOD SPECIMEN / Unknown Venipuncture / Unknown 09/28/2023 4:53 AM CDT 09/28/2023 5:21 AM CDT Sandhya FAJARDO HEMATOLOGY [facility] SENDOUT INTERNAL ZIP [address] [place] [address] * (ABNORMAL) HEMOGLOBIN (09/28/2023 4:53 AM CDT) Only the most recent of7 resultswithin the time period is included. HEMOGLOBIN 11.6(L) 13.5 - 17.5 g/dL 09/28/2023 5:32 AM CDT [facility] MCV 91 80 - 100 fL 09/28/2023 5:32 AM CDT [facility] Blood BLOOD SPECIMEN / Unknown Venipuncture / Unknown 09/28/2023 4:53 AM CDT 09/28/2023 5:21 AM CDT Sandhya FAJARDO HEMATOLOGY [facility] SENDOUT INTERNAL ZIP [address] [address] [place] [address] * SCAN-CARDIAC STRIP (09/27/2023 7:43 PM CDT) Scanner OTHER * ECHO TTE LIMITED W CONTRAST W COLOR W DOPPLER (09/27/2023 12:26 PM CDT) EJECTION FRACTION 55% PROSOLV Anatomical Region Laterality Modality Ultrasound 09/27/2023 11:3 8 AM CDT Narrative 09/27/2023 12:[place] [address] Main: [email or web address] ? 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: [facility] Height: 68 in BSA: 2.46 [...] mmHg Rusty Major MD (Electronically Signed) [facility] Accredited Site Final Date: 27 September 2023 12:41 ICD-10 Codes: Procedure Note Rusty Major MD - 09/27/[address] [address] Main: [email or web address] Transthoracic Echo Report ARISTIDESAYESHAGLORIAKG JOSE GUADALUPE Federico ID: [id number] Age: 63 : 1960 Ordering Provider:RAMANDEEP CHONG Exam Date: 09/27/2023 11:38 Gender: M 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 POTASSIUM 4.6 3.5 - 5.1 mmol/L 09/27/2023 12:45 PM CDT [facility] Blood BLOOD SPECIMEN / Unknown Butterfly / Unknown 09/27/2023 12:12 PM CDT 09/27/2023 12:28 PM CDT Gregorio Elizabeth MD CHEMISTRY [facility] SENDOUT INTERNAL ZIP [phone] [place] [address] * SCAN-CARDIAC STRIP (09/27/2023 8:00 AM CDT) [...] CHEST 2 VIEWS PA AND LATERAL LOCATION: [facility] MEDICAL IMAGING DATE: 09/27/2023 INDICATION: Post Pacemaker [...] Juanito Romeo MD ? 09/26/2023 ??5:44 PM [facility] Electrophysiology Laboratory Leadless Pacemaker (AV [...] fluoroscopic image from device in [place] and DJIBOUTIAN projection. The patient tolerated the procedure well [...] procedure. Attending Signature: Juanito Romeo M.D. Cardiac Manufacturing Sr Engineer [facility] Manan Steele NP SALES ENGAGEMENT MANAGER ORD * EP PPM (09/26/2023 4:54 PM CDT) Anatomical Region Laterality Modality Other 09/26/2023 4:54 PM CDT Manan Steele NP CV IMAGING * SCAN-CARDIAC STRIP (09/26/2023 8:36 AM CDT) Scanner OTHER * (ABNORMAL) Protime-INR (09/26/2023 5:26 AM CDT) Only the most recent of6 resultswithin the time period is included. INR 1.2 <1.3 09/26/2023 5:38 AM CDT [facility] PROTIME 13.3(H) 10.3 - 12.3 sec 09/26/2023 5:38 AM CDT [facility] Blood BLOOD SPECIMEN / Unknown Venipuncture / Unknown 09/26/2023 5:26 AM CDT 09/26/2023 5:30 AM CDT Narrative [facility] - 09/26/2023 5:38 AM CDT [...] is on UFH. Gregorio Elizabeth MD HEMATOLOGY [facility] SENDOUT [place]NAL ZIP [address] [address] [place] [address] * SCAN-PACER (09/26/2023 12:00 AM CDT) Narrative 09/26/2023 12:00 AM CDT Ordered by an unspecified provider. Other Clinical Staff OTHER * SCAN-CARDIAC STRIP (09/25/2023 8:00 AM CDT) Scanner OTHER * MAGNESIUM (09/25/2023 5:07 AM CDT) Only the most recent of5 resultswithin the time period is included. MAGNESIUM 2.1 1.6 - 2.4 mg/dL 09/25/2023 5:34 AM CDT [facility] Blood BLOOD SPECIMEN / Unknown Non-Lab Venipuncture / Unknown 09/25/2023 5:07 AM CDT 09/25/2023 5:15 AM CDT Gregorio Elizabeth MD CHEMISTRY Performing Organization Address City/State/[facility] Co de Phone Number [facility] SENDOUT [place]NAL ZIP [phone] [place] [address] * SCAN-CARDIAC STRIP (09/24/2023 11:32 PM CDT) Scanner OTHER * SCAN-CARDIAC STRIP (09/24/2023 8:00 AM CDT) Scanner OTHER * XR Chest Portable 1 View- In AM (09/24/2023 6:17 AM CDT) Only the most recent of2 [...] EXAM: XR CHEST 1 VIEW PORTABLE LOCATION: [facility] MEDICAL IMAGING DATE: 09/24/2023 INDICATION: ET tube placement COMPARISON: 09/23/2023 Procedure Note So, Guanaikto Pelaez MD - 09/24/2023 For Patients: As a result of the Cures Act, medical imagingexams and procedure reports are released immediately into your electronicmedical record. You may view this report before your referring provider.If you have questions, please contact your health care provider. EXAM: XR CHEST 1 VIEW PORTABLE LOCATION: [facility] MEDICAL IMAGING DATE: 09/24/2023 INDICATION: ET tube [...] - 1.27 mmol/L 09/24/2023 4:35 AM CDT [facility] Blood BLOOD SPECIMEN / Unknown Non-Lab Venipuncture / Unknown 09/24/2023 4:20 AM CDT 09/24/2023 4:32 AM CDT Gregorio Elizabeth MD CHEMISTRY [facility] SENDOUT INTERNAL ZIP [address] [address] [place] [address] * (ABNORMAL) Arterial Blood Gas (09/24/2023 12:16 AM CDT) PH, ARTERIAL 7.33(L) 7.35 - 7.45 09/24/2023 12:25 AM CDT [facility] PCO2, ARTERIAL 52(H) 35 - 48 mmHg 09/24/2023 12:25 AM CDT [facility] PO2, ARTERIAL 164(H) 83 - 108 mmHg 09/24/2023 12:25 AM CDT [facility] HCO3, ARTERIAL 27 21 - 28 mmol/L 09/24/2023 12:25 AM CDT [facility] BASE EXCESS, ARTERIAL 0.6 -2.0 - 3.0 09/24/2023 12:25 AM CDT [facility] O2 SATURATION, ARTERIAL 100(H) 94 - 98 % 09/24/2023 12:25 AM CDT [facility] INSPIRED O2 95 09/24/2023 12:25 AM CDT [facility] Comment:Unit of Measure: Lit ers (L) if <=20; Percent (%) if >20 PATIENT TEMPERATURE 36.9 Degrees C 09/24/2023 12:25 AM CDT [facility] Blood ARTERIAL BLOOD SPECIMEN / Unknown Arterial / Unknown 09/24/2023 12:16 AM CDT 09/24/2023 12:21 AM CDT Gregorio Elizabeth MD CHEMISTRY [facility] SENDOUT INTERNAL ZIP [phone] [place] [address] * SCAN-CARDIAC STRIP (09/24/2023 12:00 AM CDT) Scanner OTHER * Thrombin Time - Immediate Postop (09/23/2023 9:45 PM CDT) Only the most recent of2 resultswithin the time period is included. THROMBIN TIME 15 <16 sec 09/23/2023 10:37 PM CDT [facility] Blood BLOOD SPECIMEN / Unknown Non-Lab Venipuncture / Unknown 09/23/2023 9:45 PM CDT 09/23/2023 9:55 PM CDT Gregorio Elizabeth MD HEMATOLOGY Performing Organization Address [facility]/ZIP Co de Phone Number [facility] SENDOUT INTERNAL ZIP [address] [place] [address] * (ABNORMAL) APTT - Immediate Postop (09/23/2023 9:45 PM CDT) Only the most recent of4 resultswithin the time period is included. APTT 23(L) 28 - 36 sec 09/23/2023 10:37 PM CDT [facility] Blood BLOOD SPECIMEN / Unknown Non-Lab Venipuncture / Unknown 09/23/2023 9:45 PM CDT 09/23/2023 9:55 PM CDT Narrative [facility] - 09/23/2023 10:37 PM CDT Therapeutic Range: 57-87 seconds Gregorio Elizabeth MD HEMATOLOGY Performing Organization Address [facility]/ZIP Co de Phone Number [facility] SENDOUT INTERNAL ZIP [phone] [place] [address] * (ABNORMAL) Fibrinogen, Quantitative - Immediate Postop (09/23/2023 9:45 PM CDT) Only the most recent of2 resultswithin the time period is included. FIBRINOGEN,MOHIT NTITATIVE 453(H) 193 - 401 mg/dL 09/23/2023 10:37 PM CDT [facility] Blood BLOOD SPECIMEN / Unknown Non-Lab Venipuncture / Unknown 09/23/2023 9:45 PM CDT 09/23/2023 9:55 PM CDT Gregorio Elizabeth MD HEMATOLOGY Performing Organization Address City/[facility]/ZIP Co de Phone Number [facility] SENDOUT INTERNAL ZIP [phone] [place] [address] * (ABNORMAL) Cardiac Thromboelastography (09/23/2023 8:05 PM CDT) Only the most recent of2 resultswithin the time period is included. DESTINI REASON Diffuse Cardiac Bleeding 09/23/2023 10:17 PM CDT [facility] INTEM CT 212(H) 122 - 208 s 09/23/2023 10:17 PM CDT [facility] INTEM CFT 71 45 - 110 s 09/23/2023 10:17 PM CDT [facility] INTEM ALPHA 75 70 - 81 ?? 09/23/2023 10:17 PM CDT [facility] INTEM A10 57 46 - 67 mm 09/23/2023 10:17 PM CDT [facility] INTEM A20 63 51 - 72 mm 09/23/2023 10:17 PM CDT [facility] INTEM MCF 64 51 - 72 mm 09/23/2023 10:17 PM CDT [facility] INTEM ML 7 % 09/23/2023 10:17 PM CDT [facility] INTEM LI30 99 % 09/23/2023 10:17 PM CDT [facility] EXTEM CT 108(H) 43 - 82 s 09/23/2023 10:17 PM CDT [facility] EXTEM CFT 81 48 - 127 s 09/23/2023 10:17 PM CDT [facility] EXTEM ALPHA 74 65 - 80 ?? 09/23/2023 10:17 PM CDT [facility] EXTEM A10 60 46 - 67 mm 09/23/2023 10:17 PM CDT [facility] EXTEM A20 66 50 - 70 mm 09/23/2023 10:17 PM CDT [facility] EXTEM MCF 66 52 - 70 mm 09/23/2023 10:17 PM CDT [facility] EXTEM ML 7 % 09/23/2023 10:17 PM CDT [facility] EXTEM LI30 100 % 09/23/2023 10:17 PM CDT [facility] FIBTEM CT 116 s 09/23/2023 10:17 PM CDT [facility] FIBTEM CFT 593 s 09/23/2023 10:17 PM CDT [facility] FIBTEM ALPHA 67 ?? 09/23/2023 10:17 PM CDT [facility] FIBTEM A10 20 7 - 24 mm 09/23/2023 10:17 PM CDT [facility] FIBTEM A20 22 7 - 24 mm 09/23/2023 10:17 PM CDT [facility] FIBTEM MCF 23 7 - 24 mm 09/23/2023 10:17 PM CDT [facility] FIBTEM ML 0 % 09/23/2023 10:17 PM CDT [facility] FIBTEM LI30 100 % 09/23/2023 10:17 PM CDT [facility] HEPTEM CT 248(H) 122 - 208 s 09/23/2023 10:17 PM CDT [facility] HEPTEM CFT 83 45 - 110 s 09/23/2023 10:17 PM CDT [facility] HEPTEM ALPHA 73 70 - 81 ?? 09/23/2023 10:17 PM CDT [facility] A10 51 mm 09/23/2023 10:17 PM CDT [facility] A20 53 51 - 72 mm 09/23/2023 10:17 PM CDT [facility] MCF 54 51 - 72 mm 09/23/2023 10:17 PM CDT [facility] ML 10 % 09/23/2023 10:17 PM CDT [facility] Blood BLOOD SPECIMEN / Unknown Non-Lab Venipuncture / Unknown 09/23/2023 8:05 PM CDT 09/23/2023 8:13 PM CDT [employer] [facility] SEND[facility] [address] [phone] [place] [address] * CVC TRIPLE LUMEN, HCHG STOPCOCK PR5, [...] ??Comment: Supplemental O2: supplemental oxygen. ??Comment:. Vessel Manager Baby Additional supplies used to locate vessel: no [...] . Video documentation of the exam on [employer] PRECPB EXAM The ZACHARY probe was [...] exam unchanged from pre-CPB. Images saved to core analysis operator. Teeth and oropharynx unchanged from pre-op. Probe [...] >90 mL/min/1.7 3m2 09/22/2023 3:42 PM CDT [facility] Comment:As of 2021, eG FR is calculated by the CKD-EPI creatinine equation without race adjustment. ??eGFR can be influenced by muscle mass, exercise, and diet. ??The reported eGFR is an estimation only and is only applicable if the renal function is stable. CREATININE 1.13 0.70 - 1.20 mg/dL 09/22/2023 3:42 PM CDT [facility] Blood BLOOD SPECIMEN / Unknown Butterfly / Unknown 09/22/2023 3:12 PM CDT 09/22/2023 3:16 PM CDT Ramandeep Chong NP CHEMISTRY [facility] [place] [phone] [place] [address] * RED BLOOD CELLS EA UNIT (09/22/2023 9:35 AM CDT) Only the most recent of2 resultswithin the time period is included. CROSSMATCH Compatible Compatible [facility] PRODUCT BLOOD TYPE O Rh Negative [facility] PRODUCT ID NUMBER [id number] [facility] B[facility]OD BANK PRODUCT STATUS /Relea sed [facility] BLOOD BANK PRODUCT DESCRIPTION RBC -1 LR [facility] BLOOD B[facility] PRODUCT CODE [id number] [facility] Ramandeep Chong NP BLOOD BANK Performing Organization Address [facility] Co de Phone Number [facility]LOOD [facility]ANK [address] [place] [phone] * EXTRA TUBE LAVENDER (09/22/2023 9:34 AM CDT) Blood BLOOD SPECIMEN / Unknown Extra Tube / Unknown 09/22/2023 9:34 AM CDT 09/22/2023 10:58 AM CDT Doctor Unknown LABORATORY Performing Organization Address [facility] Co de Phone Number [facility] SENDOUT INTERNAL ZIP [phone] [place] [address] * RBC W TYPE AND SCREEN (09/22/2023 9:34 AM CDT) ABORH O Rh Negative 09/22/2023 11:35 AM CDT [facility] BLOOD BANK ANTIBODY SCREEN Negative Negative 09/22/2023 11:35 AM CDT [facility] BLOOD BANK SPECIMEN EXPIRATION DATE/TIME 09/25/23 23:59 09/22/2023 11:35 AM CDT [facility] BLOOD [facility] Blood BLOOD SPECIMEN / Unknown Venipuncture / Unknown 09/22/2023 9:34 AM CDT 09/22/2023 10:49 AM CDT Ramandeep Chong NP BLOOD BANK Performing Organization Address [facility] Co de Phone Number [facility]OD [facility] [address] [place] [phone] * SCAN-CARDIAC STRIP (09/22/2023 8:13 AM CDT) Scanner OTHER * HEMATOCRIT (09/22/2023 4:55 AM CDT) HEMATOCRIT 45.1 37.0 - 53.0 % 09/22/2023 5:21 AM T [facility] Blood BLOOD SPECIMEN / Unknown Venipuncture / Unknown 09/22/2023 4:55 AM CDT 09/22/2023 5:18 AM CDT Narrative [facility] - 09/22/2023 5:21 AM CDT Every morning while on IV heparin. Every morning while on IV heparin. Necessary every morning while on IV heparin. Wendy Lomeli DO HEMATOLOGY [facility] SENDOUT INTERNAL ZIP [phone] [place] [address] * SCAN-CARDIAC STRIP (09/22/2023 1:22 AM CDT) Scanner OTHER * LIPID PANEL (09/18/2023 4:17 AM CDT) CHOLESTEROL,TOTAL 174 100 - 199 mg/dL 09/18/2023 4:54 AM T [facility] Comment: Cholesterol, Total Reference Ranges Desirable <200 mg/dL Borderline 200-239 mg/dL High >=240 mg/dL TRIGLYCERIDES 105 <150 mg/dL 09/18/2023 4:54 AM [facility] HDL CHOLESTEROL 42 >40 mg/dL 4:54 AM [facility] NON-HDL CHOLESTEROL 132 <145 mg/dl 09/18/2023 4:54 AM [facility] CHOL/HDL RATIO 4.14 <4.50 09/18/2023 4:54 AM [facility] LDL CHOLESTEROL 111 <=130 mg/dL 09/18/2023 4:54 AM [facility] VLDL CHOLESTEROL 21 <=30 mg/dL 09/18/2023 4:54 AM [facility] PROVIDER ORDERED STATUS RANDOM 09/18/2023 4:54 AM T [facility] Blood BLOOD SPECIMEN / Unknown Venipuncture / Unknown 09/18/2023 4:17 AM CDT 09/18/2023 4:27 AM CDT Wedny Lomeli DO CHEMISTRY [facility] SENDOUT INTERNAL ZIP [address] [address] [place] [address] from Last 3 Months or Most Recently Relevant to Health Maintenance Advance Directives * Full Code (Latest Code [...] Code Status Discussion: Not Discussed Care Teams Computer Network Specialist Relationship Specialty Start Date End Date Munir Sahu MD [address] [place] [address] PCP - General Family Practice 09/17/23 [facility] [address] [place] [address] 09/28/23
== END 2023-12-23 07:53 | disposition home or self-care (01) ==
LOC: WOUND 07:52
PROVIDERS: PCP Family Medicine; Visit Provider Nurse Practitioner Family
DX: I87.312 Chronic venous hypertension (idiopathic) with ulcer of left lower extremity (principal); I89.0 Lymphedema, not elsewhere classified; E11.622 Type 2 diabetes mellitus with other skin ulcer; L97.322 Non-pressure chronic ulcer of left ankle with fat layer exposed; Z79.84 Long term (current) use of oral hypoglycemic drugs
CPT/HCPCS: 11042

== ENCOUNTER 2023-12-30 07:46 | Outpatient (CLI) | payer OTHER, SELFPAY ==
--- OUTSIDE RECORDS SUMMARY | 2023-12-30 07:49 | XMS_ITS | Clinical Summary ---
Author Organization [place] Address [address] [place] [address] Care Team Providers Care Contact Lens Cutter Name Role Phone Munir Sahu MD Primary [...] Advance Directives For more information, please contact: [phone] * Full Code (Latest Code Status on File) Date Activated Date Inactivated Comments 11/06/2019 2:19 PM 11/07/2019 9:06 PM All basic and advanced life-sustaining interventions are performed as appropriate Question Answer Comments Code status determined by: Unable to det ermine; FULL CODE until documents or legal decision maker available Care Teams Contact Lens Cutter Relationship Specialty Start Date End Date Munir Sahu MD PCP - General Family Practice 10/22/19
--- OUTSIDE RECORDS SUMMARY | 2023-12-30 07:49 | XMS_ITS | Data Portability ---
Author Organization [place] [facility] Address [address] [place] [address] Care Team Providers Care Globe Cleaner Name Role Phone GORDY SOL Primary Care Provider Assessment Encounter Date Assessment Date Assessment LastModified by Organization Details LastModified Time 11/21/2019 11/21/2019 59M with [id number] Heidy 3+4=7 prostate cancer s/p RALP. Discussed pathology, risk of recurrence, need for ongoing PSA monitoring. Small anastomotic leak, will cont Choi x 1 more week. Worsened LE edema, likely chronic, but will check LE u/s to be sure no DVT. [email or web address] Not available 11/21/2019 14:07:03 01/02/2020 01/02/2020 59M with [id number] Heidy 3+4=7 prostate cancer s/p RALP. 1) Prostate cancer - f/u 4 months with PSA 2) EVETTE, moderate - cont Kegels - consider PFPT 3) ED - Cialis PRN [email or web address] Not available 01/02/2020 09:34:03 05/01/2020 05/01/2020 60M with [id number] [place] 3+4=7 prostate cancer s/p RALP 6 months ago. MICHAEL. 1) Prostate cancer - f/u 6 months with PSA 2) EVETTE, moderate - cont Kegels - consider PFPT 3) ED - Cialis PRN [email or web address] Not available 05/01/2020 10:47:29 10/24/2020 10/24/2020 60M with [id number] Heidy 3+4=7 prostate cancer s/p RALP 1 [...] floor therap y referr al 2020 021 [facility], [address], [facility] [address], [place], [address], 09:57:49 Procedures None record ed. Surgeries None record ed. Imaging None record ed. Medication Orders None record ed. Patient TargetsNo targets recorded. Patient Instructions Encounter Date Encounter Id Patient Instructions Last Modified By Organization Details Last Modified Time 11/28/2019 [id number] To follow up sumaya Doshi at his [...] Not Available [facility] [address], [place], [address], 05/01/2020 10:40:29 02/11/2020 lab* PSA <0.04 normal Not Available No t Available 01/07/2020 12:33:24 01/02/2020 PSA, serum or plasm a PSA, Total <0.04 ng/Ml Not Available [facility] [address], [place], [address], 01/02/2020 09:14:10 10/25/19 21 10/24/2020 PSA, serum or plasm a PSA, Total <0.04n g/mL Not Available [facility] [address], [place], [address], 10/24/2020 10:45:30 11/23/19 20 11/21/2019 CT, pelvi s, w/o contr ast No observ ation record ed. cedric Not Available 17:13:18 Result Notes None recorded. Problems Name Problem SNOMED Code Status Onset Date Resolution Date Notes Provider Name and Address Organization Details Recorded Time Carcinoma of prostate 702733335 Active 2019 Caroline kruger [facility] 0 10:59:25 Male urinary stress incontinence 321585109 Active 2020 Momo mcfarlane MD, PHD [address] [place] [address],[address] [place] [address], [phone], [facility] 10:47:38 Primary erectile dysfunction 459942237 Active 2020 Momo mcfarlane MD, PHD [address] [place] [address],[address] [place] [address], [phone], [facility] 10:47:58 Problem Notes None recorded. Procedures Surgical History Date Name Laterality Status Provider Name and Address Organization Details Recorded Time 10/25/19 21 Blood Draw/SALES COUNSELOR/PSA RESULTS completed Momo baez MD, PHD [address] [place] [address],[address], [place], [address], [facility] 10/24/2020 10:45:26 05/01/19 21 Blood Draw/SALES COUNSELOR/PSA RESULTS completed Momo baez MD, PHD [address] [place] [address],[address], [address], [facility] 05/01/2020 10:40:25 01/02/20 20 Blood Draw/SALES COUNSELOR/PSA RESULTS completed Janice Ayala [facility] 01/02/2020 09:14:04 11/28/19 20 Choi Catheter Removal completed Caroline Smith [facility] 02/04/2020 12:00:10 Prostatectomy completed Momo baez MD, PHD [address] [place] [address],[address], [address], [facility] 10/24/2020 10:44:48 colonoscopy completed Moncia Awan [facility] 12/09/2020 10:47:07 Imaging Results Imaging [...] Name and Address Organization Details Recorded Time 647710 silver medicatio n Not available Not available Not available 11/21/2019 99409 [id number] RxNorm Caroline Rojasyoandy kruger [facility] 0 11:09:54 571012 adhesive tape environme nt,medica tion Not available Not available Not available 11/21/2019 Caroline Bobyoandy kruger [facility] 0 11:10:01 Medications Name Sig [...] Updated DateTime 01/02/2020 180.34 cm 39.3 kg/m2 966122.05 g Caroline Luis [facility] 01/02/2020 09:09:40 Date Recorded Body height Body mass index (BMI) Body weight Provider Name and Address Organization Details Last Updated DateTime 05/01/2020 180.34 cm 39.3 kg/m2 804719.05 g Momo baez MD, PHD [address] [place], [place] [address] [place] [address] 05/01/2020 10:39:59 Date Recorded Body height Body mass index (BMI) Body weight Provider Name and Address Organization Details Last Updated DateTime 10/24/2020 180.34 cm 39.7 kg/m2 779709.83 g Momo baez MD, PHD [address] [place] [address] 10/24/2020 10:44:13 Date Recorded Body height Body mass index (BMI) Body weight Provider Name and Address Organization Details Last Updated DateTime 11/21/2019 180.34 cm 39.3 kg/m2 888399.05 g Caroline Smith [facility] 11/21/2019 11:09:04 Social History Question Answer Notes LastModified by Organizat ion Details LastModified Time Tobacco Smoking Status Never Smoker Caroline kruger [facility] 11/21/2019 11:10:15 What Is Your Level Of [...] Diagnosis/Indication Diagnosis SNOMED-CT Code Diagnosis ICD10 Code [id number] Momo beard MD, PHD [facility] [address] [place] [address] 11/21/2019 10:45:55 11/21/2019 15:00:28 Malignant tumor of prostate 803615835 C61 [id number] Caroline Gneiting [facility] [address] [place] [address] 11/28/2019 09:57:13 02/06/2020 03:54:17 [id number] Momo beard MD, PHD [facility] [address] [facility] [address] [place] [address] 01/02/2020 08:46:59 01/02/2020 14:22:16 Malignant tumor of prostate 460476720 C61 [id number] Momo beard MD, PHD [facility] [facility] [address] [place] [address] 05/01/2020 09:26:51 05/01/2020 12:03:29 Malignant tumor of prostate 470906475 C61 Primary er ectile dysfunction 083736760 N52.9 [id number] Momo beard MD, PHD [facility] [address] [place] [address] 10/24/2020 10:28:04 10/27/2020 16:45:05 Carcinoma of prostate 194310723 C61 Malignant tumor of prostate 691002001 C61 Primary er ectile dysfunction 735964873 N52.9 Male urina ry stress incontinence 154466283 N39.3 Health Concerns Section Related Observation LastModified by Organization Detai ls LastModified Time None Recorded Concern Status LastModified by Organization Details LastModified Time None Recorded Advance Directives Directive None Recorded Payers Encounter Date Sequence Insurance Name Policy Number Policy Archibald Covered Member ID Archibald Member ID Guarantor Name 11/21/2019 1 [facility] [id number] Julien Gonsalvesretmaynor [id number] Julien Ridley 11/28/2019 1 [facility] [id number] Julien Gonsalvesretson [id number] Julien Ridley 01/02/2020 1 [facility] [id number] Julien Gonsalvesretson [id number] Julien Ridley 05/01/2020 1 [facility] [id number] Julien Gonsalvesretson [id number] Julien Ridley 10/24/2020 1 [facility] [id number] Julien Gonsalvesretson [id number] Julien Ridley Notes Date Note Type Note Provider Name and Address Organization Details Recorded Time 11/21/2019 text/html HPI Notes: 59M s /p RALP 11/06/19 for [id number] [place] 3+4=7 prostate cancer (0/12 LN, -SMS) Overall [...] ED: 05/09 Momo Holliday MD, PHD [address] [facility] [address], [place], [address], [facility] 11/21/2019 14:07:42 01/02/2020 text/html HPI Notes: 59M with [id number] Heidy 3+4=7 prostate cancer (0/12 LN, -SMS) s/p RALP 11/06/19. Small anastomotic leak, catheter removed 11/28/19. Overall doing well. C/o some leakage with BMs and position changes. Uses multiple depends per day...... LE u/s to eval for dvt last visit was negative PSA Results 07/27/19: 6.5 01/02/20: <0.04 UF: 4/5 EF: 5/5 Pre-op EF: 2/5 Momo Holliday MD, PHD [address] [place] [address],[address], [address], [facility] 01/02/2020 09:35:54 05/01/2020 text/html HPI Notes: 60M with [id number] [place] 3+4=7 prostate cancer (0/12 LN, -SMS) s/p RALP 11/06/19. Small anastomotic leak, catheter removed 11/28/19. Overall doing well. C/o some leakage with BMs and position changes. Uses 4ppd which is improvement. No problems with incisions. PSA Results 07/27/19: 6.5 01/02/20: <0.04 05/01/20: <0.04 UF: 3/5 EF: 5/5 Pre-op EF: 2/5 Momo Holliday MD, PHD [address] [place] [address], [phone], [facility] 05/01/2020 10:48:15 10/24/2020 text/html HPI Notes: 60M with [id number] [place] 3+4=7 prostate cancer (0/12 LN, -SMS) s/p RALP 11/06/19 Overall doing well. C/o some leakage with BMs and position changes and sexual activity. Uses 4ppd still. No problems with incisions. PSA Results 07/27/19: 6.5 01/02/20: <0.04 05/01/20: <0.04 10/24/20: <0.04 UF: 3/5 EF: 5/5 Pre-op EF: 2/5 Momo Holliday MD, PHD [address] [place] [address],[place] [address], [place], [address], [facility] 10/24/2020 11:30:55
--- OUTSIDE RECORDS SUMMARY | 2023-12-30 07:49 | XMS_ITS | Referral Summary ---
Author Organization [place] Address [address] [place] [address] Care Team Providers Care Paper Cup Machine Operator Name Role Phone Munir Sahu [...] Advance Directives For more information, please contact: [phone] * Full Code (Latest Code Status on File) Date Activated Date Inactivated Comments 11/06/2019 2:19 PM 11/07/2019 9:06 PM All basic and advanced life-sustaining interventions are performed as appropriate Question Answer Comments Code status determined by: Unable to det ermine; FULL CODE until documents or legal decision maker available Care Teams Paper Cup Machine Operator Relationship Specialty Start Date End Date Munir Sahu MD PCP - General Family Practice 10/22/19
--- OUTSIDE RECORDS SUMMARY | 2023-12-30 07:50 | XMS_ITS | Clinical Summary ---
Author Organization [facility] Address [address] [place] [address] Care Team Providers Care Asbestos Hazard Abatement Worker Name Role Phone Elsewhere, Pcp Primary Care Provider Unavailabl e Source Comments Patient records contain information from all sites at [facility]. For routine questions regarding patient records, call [phone] during business hours, M-F 8:00 AM - 5:00 PM Central Time. Record requests for emergency care only can be directed to [phone] at any time.[facility] Allergies Active Allergy Reactions Criticality Noted Date Comments Dimethicone-Petrolatum Rash 02/01/2014 Horse [place] Rash 07/16/2016 Silver Sulfate-Foam Bandage Rash 02/02/20 [...] mouth. 11/07/2019 Active FreeStyle João 14 Day [place] misc 02/17/2021 Active FreeStyle João 14 Day [...] Emergency [facility] [address] [place] [address] Hyperglycemia (Primary Dx) Discharge Disposition: Home or [...] Comments Blood Pressure 160/85 04/17/2021 1:03 PM AIRPORT SECURITY SCREENER Pulse 74 04/17/2021 1:03 PM AIRPORT SECURITY SCREENER Temperature 36.4 ??C (97.5 ??F) 04/17/2021 1:03 PM CS T Respiratory Rate 14 02/15/2021 1:17 PM AIRPORT SECURITY SCREENER Oxygen Saturation 95% 02/15/2021 1:17 PM AIRPORT SECURITY SCREENER Inhaled Oxygen Concentration - - Weight 138 kg (304 lb 3.8 oz) 04/17/2021 1:03 PM AIRPORT SECURITY SCREENER Height 178 cm (5' 10.08) 04/17/2021 1:03 PM AIRPORT SECURITY SCREENER Body Mass Index 43.55 04/17/2021 1:03 PM AIRPORT SECURITY SCREENER Plan of Treatment Health Maintenance Due Date [...] (Annual PHQ-2) 04/04/2023 COVID-19 Vaccine (4 - 2023-2 5 season) 2023 02/06/2021, 07/10/2020, 06/12/2020 Influenza Vaccine [...] Recently Relevant to Health Maintenance Care Teams Asbestos Hazard Abatement Worker Relationship Specialty Start Date End Date Elsewhere, Pcp PCP - General Family Medicine 06/15/17
--- OUTSIDE RECORDS SUMMARY | 2023-12-30 07:50 | XMS_ITS | Clinical Summary ---
Author Organization [facility] Address [place], [place] [address] Care Team Providers Care Making Machine Operator Name Role Phone Munir Sahu MD Primary Care Provider + [facility], [facility] [phone] Allergies Active Allergy Reactions Criticality Noted Date [...] by insurance) 9 mL 09/28/2023 Active Insulin [place], Disposable, (Susana Pen Needle) 32 gauge x [...] Diagnosed Date Coronary artery disease invo lving nenana coronary artery without angina pectoris 10/28/2023 Overview [...] - 12/22/2023 11:59 PM CDT Hospital Encounter [facility] [address] [facility] [place] [address] 12/22/2023 Travel 12/21/2023 6:51 AM CDT - 12/21/2023 11:59 PM CDT Hospital Encounter [facility] [address] [facility] [place] [address] 12/21/2023 Travel 12/19/2023 9:30 AM CDT Orders Only [facility] [address] [place] [address] 2 scans: (2-Ord) US VENOUS INSUFFICIENCY LOWER EXTREMITY BILATERAL ([id number]) 12/19/2023 7:30 AM CDT - 12/19/2023 11:59 PM CDT Hospital Encounter [facility] [address] [facility] [place] [address] 12/19/2023 Travel 12/15/2023 6:57 AM CDT - 12/15/2023 11:59 PM CDT Hospital Encounter [facility] [address] [place] [address] 12/15/2023 Travel 12/14/2023 6:54 AM CDT - 12/14/2023 11:59 PM CDT Hospital Encounter [facility] [address] [facility] [place] [address] 12/14/2023 Travel 12/13/2023 1:30 PM CDT Office Visit [facility] [address] [facility] [address] [place] [address] Kamran Li MD Follow Up (Dr. Li [...] - 12/13/2023 11:59 PM CDT Hospital Encounter [facility] [address], [address] [place] [address] Kamran Li MD CAD, multiple vessel; S/p 3V CABG (SHER-LAD, LISA-ramus, radial-OM), 09/23/2023 12/13/2023 Travel 12/12/2023 7:00 AM CDT - 12/12/2023 11:59 PM CDT Hospital Encounter [facility] [address] [place] [address] 12/12/2023 Telephone [facility] [address] [place] [address] Gina Jaime Cardiovascular Diagnostic Testing (lvm to confirm 12/13/23 stress test appt) 12/12/2023 Travel 12/08/2023 6:56 AM CDT - 12/08/2023 11:59 PM CDT Hospital Encounter [facility] [address] [place] [address] 12/08/2023 Travel 12/07/2023 6:52 AM CDT - 12/07/2023 11:59 PM CDT Hospital Encounter [facility] [address] [place] [address] 12/07/2023 Travel 12/01/2023 6:55 AM CDT - 12/01/2023 11:59 PM CDT Hospital Encounter [facility] [address] [place] [address] 12/01/2023 Travel 11/30/2023 6:55 AM CDT - 11/30/2023 11:59 PM CDT Hospital Encounter [facility] [address] [place] [address] 11/30/2023 Travel 11/29/2023 9:09 AM CDT - 11/29/2023 11:59 PM CDT Hospital Encounter [facility] [address] [place] [address] Alejandra Lau PA S/p 3V CABG (SHER-LAD, LISA-ramus, radial-OM), 09/23/2023 11/29/2023 Travel 11/28/2023 7:30 AM CDT Home Care Visit [facility] [address] [place] [phone] Elvira Reyes, RN SN - OASIS DISCHARGE 11/22/2023 10:45 AM CDT Home Care Visit [facility] [address] [place] [phone] Tyson Mejias, PT PT - DISCIPLINE DISCHARGE 11/21/2023 10:00 AM CDT Home Care Visit [address] [phone] Irma Hollins RN SN - HOME VISIT 11/17/2023 7:30 AM CDT Home Care Visit [facility] [address] [place] [phone] Tyson Mejias, PT PT - HOME VISIT 11/15/2023 8:30 AM CDT Home Care Visit [facility] [address] [place] [phone] Tyson Mejias, PT PT - HOME VISIT 11/14/2023 8:30 AM CDT Home Care Visit [address] [phone] Elvira Reyes RN SN - HOME VISIT 11/14/2023 3:30 AM CDT Home Care Visit [address] [phone] Ailyn Varghese RN SN - WOUND/OSTOMY CHART CONSULT 11/11/2023 Telephone [facility] [address] [place] [address] Anibal Quigley MD Referral 11/10/2023 8:00 AM CDT Home Care Visit [facility] [address] [place] [address] Tyson Mejias, PT PT - HOME VISIT 11/09/2023 10:00 AM CDT Home Care Visit [facility] [address] [place] [phone] Isa Cintron, CHITRA SN - HOME VISIT 11/09/2023 Orders Only [facility] [address] [place] [address] Antoinette Lopez PA <No scans attached> 11/08/2023 Home Care Visit [facility] [address] [place] [phone] Tyson Mejias, PT CARE COORDINATION 11/07/2023 8:15 AM CDT Home Care Visit [facility] [address] [place] [phone] Tyson eMjias, PT PT - INITIAL ASSESSMENT 11/07/2023 7:30 AM CDT Home Care Visit [facility] [address] [place] [phone] Lexi Esteves, CHITRA SN - HOME VISIT 11/04/2023 Home Care Visit [facility] [address] [place] [phone] Elvira Reyes RN CARE COORDINATION 11/04/2023 Telephone [facility] [address] [facility] [address] [place], [place] [phone] Gregorio Olivia MD Medication Management (amlodipine) 11/02/2023 8:30 AM CDT Home Care Visit [facility] [address] [place] [phone] Nohemy Anna LPN SERVICE ATTENDANT [place] - HOME VISIT 10/31/2023 3:00 PM CDT Home Care Visit [facility] [address] [place] [phone] Evie Young RN SN - HOME VISIT 10/31/[address] [facility] [address] [place] [phone] Device Check (Remote Leadless Pacemaker Ca... 10/28/2023 5:20 AM CDT - 10/28/2023 1:20 PM CDT Hospital Encounter [facility] [address] [place] [address] Kamran Li MD Essential hypertension (Primary Dx); CAD, multiple vessel; S/p 3V CABG (SHER-LAD, LISA-ramus, radial-OM), 09/23/2023 Discharge Disposition: Home Self Care 10/28/2023 Home Care Visit [facility] [address] [place] [phone] Elvira Reyes CAR WASH SUPERVISOR NOTE 10/28/2023 Travel 10/27/2023 8:30 AM CDT Home Care Visit [facility] [address] [place] [phone] Elvira Reyes RN SN - HOME VISIT 10/26/2023 10:48 PM CDT - 10/27/2023 12:53 AM CDT [facility] [address], [place] [address] Misha Styles III, MD Insomnia, unspecified type (Primary Dx); Anxiety Discharge Disposition: Home Self Care 10/26/2023 Travel 10/24/2023 9:00 AM CDT Home Care Visit [facility] [address] [place] [phone] Elvira Reyes RN SN - HOME VISIT 10/21/2023 Home Care Visit [facility] [address] [place] [phone] Elvira Reyes RN CARE COORDINATION 10/21/[address] [facility] [address] [place] [address] Kary Aiken MD Pre Procedure 10/21/[address] [facility] [address] [place] [phone] Jen Greenberg NP Results 10/20/2023 1:50 PM CDT Orders Only [facility] [address] [place] [address] Lab 10/20/2023 1:00 PM CDT Office Visit [facility] [address] [place] [phone] Jen Greenberg NP Follow Up (3-4 weeks [...] 10/19/2023 7:45 AM CDT Home Care Visit [facility] [address] [place] [phone] Elvira Reyes RN SN - HOME VISIT 10/17/2023 5:00 AM CDT Home Care Visit [facility] [address] [place] [address] Isa Cintron RN SN - HOME VISIT 10/12/2023 10:00 AM CDT Home Care Visit [facility] [address] [place] [phone] Elvira Reyes RN SN - HOME VISIT 10/10/2023 9:45 AM CDT Home Care Visit [facility] [address] [place] [phone] Elvira Reyes RN SN - HOME VISIT 10/07/2023 8:00 AM CDT Home Care Visit [facility] [address] [place] [phone] Elvira Reyes RN SN - HOME VISIT 10/05/2023 12:30 PM CDT Home Care Visit [facility] [address] [place] [phone] Elvira Reyes RN SN - HOME VISIT 10/04/2023 2:00 PM CDT Procedure Only [facility] [address] [place] [address] Device Check (IN CLINIC [employer] LEADLESS... 10/04/2023 Travel 10/03/2023 7:00 AM CDT Home Care Visit [facility] [address] [place] [phone] Lexi Esteves RN SN - HOME VISIT 10/03/2023 1:00 AM CDT Home Care Visit [facility] [address] [place] [phone] Ailyn Varghese RN SN - WOUND/OSTOMY CHART CONSULT 10/03/2023 Telephone [facility] [address] [place] [address] Ailyn Varghese office system analyst (Vascular and or Wound clinic referral is needed. Supplies with [employer]) 09/30/2023 9:30 AM CDT Home Care Visit [facility] [address] [place] [phone] Lexi Esteves RN SN - OASIS START OF CARE 09/30/2023 Plan of Care Documentation [address] [phone] from Last 3 Months Family History Medical [...] Info) Description 01/02/2024 7:00 AM CDT Appointment [place] [address] [place] [address] 01/04/2024 7:00 AM CDT Appointment [facility] [address], [place] [address] 01/11/2024 7:00 AM CDT Appointment [facility] [address], [place] [address] 01/12/2024 7:00 AM CDT Appointment [facility] [address], [place] [address] 01/12/2024 2:00 PM CDT Office Visit [facility] at [address] [place] [address] Chriss Whittington MD [address] [address] 01/16/2024 7:00 AM CDT Appointment [facility] [address] [place] [address] 01/18/2024 7:00 AM CDT Appointment [facility] [address] [place] [address] 01/19/2024 7:00 AM CDT Appointment [facility] [address] [place] [address] 01/23/2024 7:00 AM CDT Appointment [facility] [address] [place] [address] 01/25/2024 7:00 AM CDT Appointment [facility] [address] [place] [address] 01/26/2024 7:00 AM CDT Appointment [facility] [address] [place] [address] 01/30/2024 7:00 AM CDT Appointment [facility] [address] [place] [address] 02/01/2024 7:00 AM CDT Appointment [facility] [address] [place] [address] 02/02/2024 7:00 AM CDT Appointment [facility] [address] [place] [address] 02/06/2024 7:00 AM INSEMINATION WORKER Appointment [facility] [address] [place] [address] 02/08/2024 7:00 AM INSEMINATION WORKER Appointment [facility] [address], [place] [address] 02/09/2024 7:00 AM INSEMINATION WORKER Appointment [facility] [address] [place] [address] 02/13/2024 7:00 AM INSEMINATION WORKER Appointment [facility] [address] [place] [address] 02/15/2024 7:00 AM INSEMINATION WORKER Appointment [facility] [address] [place] [address] 02/16/2024 7:00 AM INSEMINATION WORKER Appointment [facility] [address] [place] [address] 02/20/2024 7:00 AM INSEMINATION WORKER Appointment [facility] [address] [place] [address] 02/27/2024 Procedure Only [address] [place] [address] Health Maintenance Due Date Last [...] 10/28/2023 10:59 AM CDT SCAN-CARDIAC STRIP 10/28/2023 10 :55 AM CDT EKG 12 LEAD Routine 10/28/2023 [...] CABG (coronary artery bypass graft) Abnormal CBC LIPID PANEL Early AM 09/18/2023 4:17 AM [...] PM CDT VASCULAR ULTRASOUND REPORT JOSE GUADALUPE Owens KEYANA Accession#: ?? [id number] : ?1960 ??Study Date: ?? 12/19/2023 9:22:18 AM Age: ?63 years ?? Tech: ? PMK Gender: M ?Referring MD: ANTOINETTE LOPEZ Site: [facility] Study performed: ?Duplex US venous insufficiency, (bilateral). [...] and distal calf. 5. Incompetent varicose and/or light bulb tester veins as listed below. COMPARISON: No prior [...] Accreditation Commission (IAC/Vascular), www.intersocietal.org/vascular Report generated by [employer]. ??Final ?? Procedure Note Anderson Petersen MD - 12/19/2023 VASCULAR ULTRASOUND REPORT JOSE GUADALUPE RIDLEY : 1960 Study Date: 12/19/2023 9:22:18 AM Age: 63 years Tech: PMK Gender: M Referring MD: ANTOINETTE LOPEZ Site: [facility] Study performed: Duplex US venous insufficiency, (bilateral). [...] and distal calf. 5. Incompetent varicose and/or light bulb tester veins as listed below. COMPARISON: No prior [...] theIntersocietal Accreditation Commission (IAC/Vascular),www.intersocietal.org/vascular Report generated by [employer]. Final Antoinette FAJARDO * NM CARDIAC MPI STRESS TEST (12/13/2023 10:08 AM CDT) Anatomical Region Laterality Modality HEART Nuclear Medicine 12/13/2023 7:07 AM CDT Narrative 12/13/2023 12:48 PM CDT [address], [place] [address] Main: ?Myocardial Perfusion Report ?Rest/Stress 1 Day Single Isotope Gated SPECT imaging with Regadenoson(Lexiscan) stress JOSE GUADALUPE RIDLEY ID: [id number] Age: 63 : 1960 Nuclear Tech: KKD Exam Date: 12/13/2023 07:07 Gender: M RN/Ex. Sash Assembler: HANG/TYLER Height: 70.9 in BSA: 2.43 m?? Monitoring Provider: KARY AIKEN Weight: 280 lbs BMI: 39.2 kg/m?? Ordering Provider: KAMRAN LI Location: [facility] Indication: S/P CABG x 3; CAD, [...] / 60 % MPHR: 51 Double Product: [id number] Recovery HR(bpm): 71 Recovery BP(mmHg): 124 / [...] 0 Apical Lateral: 0 Apical Lateral: 0 [place]: 0 [place]: 0 Summed Stress Score: 2 Summed Rest [...] left ventricular wall motion. Anderson ??Lolis NOBLES [facility] Accredited Site (Electronically Signed) Final Date: 13 December 2023 12:48 ICD-10 Codes: Z95.1; I25.10 CC Providers: Dr. Munir Sahu Procedure Note Anderson Danielle MD - 12/13/[address], [place] [address] Main: Myocardial Perfusion Report Rest/Stress 1 Day Single Isotope Gated SPECT imaging withRegadenoson(Lexiscan) stress JOSE GUADALUPE RIDLEY ID: [id number] Age: 63 : 1960 Nuclear Tech: KKD Exam Date: 12/13/2023 07:07 Gender: M RN/Ex. Sash Assembler: HANG/TYLER Height: 70.9 in BSA: 2.43 m?? Monitoring Provider:KARY AIKEN Weight: 280 lbs BMI: 39.2 kg/m?? Ordering Provider: KAMRAN LI Location: [facility] Indication: S/P CABG x 3; CAD, [...] 142 / 60 % MPHR: 51 Double Product:02429 Recovery HR(bpm): 71 Recovery BP(mmHg): 124 / [...] 0 Apical Lateral: 0 Apical Lateral: 0 [place]: 0 [place]: 0 Summed Stress Score: 2 Summed Rest [...] left ventricular wall motion. Anderson Danielle MD [facility] Accredited Site (Electronically Signed) Final Date: 13 December 2023 12:48 ICD-10 Codes: Z95.1; I25.10 CC Providers: Dr. Munir Sahu Kamran Li MD NM * (ABNORMAL) GLUCOSE METER (11/30/2023 7:54 AM CDT) Only the most recent of6 resultswithin the time period is included. GLUCOSE METER 151(H) 65 - 100 mg/dL 11/30/2023 7:59 AM CDT [facility] Blood BLOOD SPECIMEN / Unknown 11/30/2023 7:54 AM CDT 11/30/2023 7:59 AM CDT Doctor Unknown CHEMISTRY [facility] [address] [phone] * SCAN-CARDIAC STRIP (10/28/2023 10:55 AM CDT) Scanner OTHER * EKG 12 LEAD (10/28/2023 10:33 AM CDT) Only the most recent of2 resultswithin the time period is included. Interpretation [...] NOW QTc 472 ms BEYOND NOW P [place] 56 degrees BEYOND NOW R [place] 45 degrees BEYOND NOW T [place] 70 degrees BEYOND NOW 10/28/2023 10:3 3 AM CDT 10/28/2023 11:07 AM CDT Kamran Li MD EKG ORD BEYOND NOW [place], [place] * (ABNORMAL) ACTIVATED CLOTTING TIME PNA953 ACT (10/28/2023 8:56 AM CDT) ACTIVATED CLOTTING TIME, POCT 304(H) 74 - 125 sec 10/28/2023 12:18 PM CDT [facility] Blood BLOOD SPECIMEN / Unknown 10/28/2023 8:56 AM CDT 10/28/2023 12:18 PM CDT Kamran Li MD HEMATOLOGY [facility] [place]ENDOUT [place] [address] [address] [place] [address] * CVL PCI ONLY (10/28/2023 8:19 AM CDT) Anatomical Region Laterality Modality X-Ray Angiograph y 10/28/2023 8:19 AM CDT Narrative Transcriptions Kamran Li MD - 10/28/2023 9:33 AM CDT [facility] Cardiac Catheterization Report Name: JOSE GUADALUPE RIDLEY Event Date: 10/28/2023 08:19 [facility] ID #: [id number] JAKE #: [id number] Diagnostic Physician: KAMRAN LI [facility] Interventional Physician: KAMRAN LI [facility] Referring Physician: GREGORIO OLIVIA Date: 1960 Gender: [...] inhibit spasm of the radialgraft. Consent & Creede Protocol The risks, benefits, and alternatives of the procedure were discussed withthe patient and written informed consent was obtained. Creede protocol was followed. TIME OUT conducted just prior tostarting procedure confirmed patient identity, site/side, procedure,patient position, and availability of correct equipment and implants (ifapplicable). Staff Name Title KAMRAN LI Sped Teacher Rafaela Bailey RN Nurse Hung Oviedo RTR Scrub Machelle Lowe RTR Monitor Jimmie Merino CVT Engraver Hand Soft Metals Procedures ? US Guided Access ? Coronary [...] 1 Distal RCA Drug Eluting Stent Rosalio [place] 3.50 x 22mm Procedure Details Estimated Blood Loss: < 30 ml Specimen Collected: None Level of Sedation Achieved: Moderate Procedure Start: 08:19 Procedure End: :22 Procedure Time: 63 min Fluoroscopy Time: 16.2 min Cumulative Air Kerma: 1697 mGy DAP: 23430 mGy/cm2 Contrast: Omnipaque, 230 ml Physiologic Data [...] IV Kamran Li Kendra RN 08:39 Heparin 43756 units IV Kamran Li Kendra RN 08:44 [...] healthcare professional providing the sedation ends personal [id number] time with the patient. The medications listed above were verbally ordered by me and read back tome as documented above. Refer to the procedure log report for additional case details. electronically signed on 10/28/2023 9:33:27 AM with status of Final Kamran Li MD [address], [place] [address] [address] [place] [address] (p) [phone](f) Alejandra FAJARDO CV IMAGING * (ABNORMAL) CBC with Platelets no Differential (10/28/2023 6:35 AM CDT) Only the most recent of2 resultswithin the time period is included. WHITE BLOOD COUNT 5.9 4.5 - 11.0 thou/cu mm 10/28/2023 6:52 AM [facility] RED BLOOD COUNT 4.27(L) 4.30 - 5.90 mil/cu mm 10/28/2023 6:52 AM [facility] HEMOGLOBIN 12.6(L) 13.5 - 17.5 g/dL 10/28/2023 6:52 AM [facility] HEMATOCRIT 38.9 37.0 - 53.0 % 10/28/2023 6:52 AM [facility] MCV 91 80 - 100 fL 10/28/2023 6:52 AM [facility] MCH 29.5 26.0 - 34.0 pg 10/28/2023 6:52 AM [facility] MCHC 32.4 32.0 - 36.0 g/dL 10/28/2023 6:52 AM [facility] RDW 14.6 11.5 - 15.5 % 10/28/2023 6:52 AM [facility] PLATELET COUNT 193 140 - 440 thou/cu mm 10/28/2023 6:52 AM [facility] MPV 9.6 6.5 - 11.0 fL 10/28/2023 6:52 AM [facility] NRBC 0.0 % 10/28/2023 6:52 AM T [facility] ABS NRBC 0.0 thou /cu mm 10/28/2023 6:52 AM [facility] Blood BLOOD SPECIMEN / Unknown Venipuncture / Unknown 10/28/2023 6:35 AM CDT 10/28/2023 6:45 AM CDT Gregorio Elizabeth MD HEMATOLOGY [facility] SENDOUT INTERNAL ZIP [address] [place] [address] * (ABNORMAL) Basic Metabolic Panel (10/28/2023 6:35 AM CDT) Only the most recent of3 resultswithin the time period is included. SODIUM 139 136 - 145 mmol/L 10/28/2023 7:19 AM [facility] POTASSIUM 3.8 3.5 - 5.1 mmol/L 10/28/2023 7:19 AM [facility] CHLORIDE 102 98 - 107 mmol/L 10/28/2023 7:19 AM [facility] CO2,TOTAL 25 22 - 29 mmol/L 10/28/2023 7:19 AM [facility] ANION GAP 12 5 - 18 10/28/2023 7:19 AM [facility] GLUCOSE 158(H) 70 - 99 mg/dL 10/28/2023 7:19 AM [facility] CALCIUM 9.4 8.8 - 10.2 mg/dL 10/28/2023 7:19 AM [facility] BUN 19 8 - 23 mg/dL 10/28/2023 7:19 AM [facility] CREATININE 0.97 0.70 - 1.20 mg/dL 10/28/2023 7:19 AM [facility] BUN/CREAT RATIO 20 10 - 20 7:19 AM [facility] eGFR 88(L) >90 mL/min/1.7 3m2 10/28/2023 7:19 AM [facility] Comment:As of 2021, eG FR [...] 6:45 AM CDT Gregorio Elizabeth MD CHEMISTRY [facility] SENDOUT [place] [phone] [place] [address] * URINALYSIS MICROSCOPIC (10/26/2023 11:46 PM CDT) RBC None Seen 0-2, None Seen /HPF 10/26/2023 11:55 PM CDT [facility] WBC 0-2 0-2, 3-5, None Seen /HPF 10/26/2023 11:55 PM T [facility] BACTERIA Rare None Seen, Rare, Few Bacteria/H PF 10/26/2023 11:55 PM CDT [facility] EPITHELIAL CELLS Few None Seen, Few Epi/HPF 10/26/2023 11:55 PM T [facility] Urine URINE SPECIMEN / Unknown Non-Blood / Unknown 10/26/2023 11:46 PM CDT 10/26/2023 11:49 PM CDT Misha Styles III, MD URINE [facility] [address] [address] * (ABNORMAL) Urinalysis w Reflex Microscopic if Positive (10/26/2023 11:46 PM CDT) COLOR Yellow Yellow Color 10/26/2023 11:52 PM CDT [facility] CLARITY Clear Clear Clarity 10/26/2023 11:52 PM T [facility] SPECIFIC GRAVITY,URINE 1.020 1.010, 1.015, 1.020, 1.025 10/26/2023 11:52 PM T [facility] PH,URINE 6.0 6.0, 7.0, 8.0, 5.5, 6.5, 7.5, 8.5 10/26/2023 11:52 PM [facility] UROBILINOGEN, QUALITATIVE Normal Normal EU/dl 10/26/2023 11:52 PM [facility] PROTEIN, URINE Negative Negative mg/dL 10/26/2023 11:52 PM [facility] GLUCOSE, URINE >=1000(A) Negative mg/dL 10/26/2023 11:52 PM [facility] KETONES,URINE Negative Negative mg/dL 10/26/2023 11:52 PM [facility] BILIRUBIN,URI NE Negative Negative 10/26/2023 11:52 PM [facility] OCCULT BLOOD,URINE Negative Negative 10/26/2023 11:52 PM [facility] NITRITE Negative Negative 10/26/2023 11:52 PM [facility] LEUKOCYTE ESTERASE Negative Negative 10/26/2023 11:52 PM [facility] Urine URINE SPECIMEN / Unknown Non-Blood / Unknown 10/26/2023 11:46 PM CDT 10/26/2023 11:49 PM CDT Misha Styles III, MD URINE Performing Organization Address City/State/[facility] Co de Phone Number [facility] [address] [address] * (ABNORMAL) CBC WITH AUTO DIFFERENTIAL (10/26/2023 11:29 PM CDT) WHITE BLOOD COUNT 6.5 4.5 - 11.0 thou/cu mm 10/26/2023 11:40 PM [facility] RED BLOOD COUNT 4.13(L) 4.30 - 5.90 mil/cu mm 10/26/2023 11:40 PM [facility] HEMOGLOBIN 12.3(L) 13.5 - 17.5 g/dL 10/26/2023 11:40 PM [facility] HEMATOCRIT 39.2 37.0 - 53.0 % 10/26/2023 11:40 PM [facility] MCV 95 80 - 100 fL 10/26/2023 11:40 PM [facility] MCH 29.8 26.0 - 34.0 pg 10/26/2023 11:40 PM [facility] MCHC 31.4(L) 32.0 - 36.0 g/dL 10/26/2023 11:40 PM [facility] RDW 14.7 11.5 - 15.5 % 10/26/2023 11:40 PM [facility] PLATELET COUNT 179 140 - 440 thou/cu mm 10/26/2023 11:40 PM [facility] MPV 9.4 6.5 - 11.0 fL 10/26/2023 11:40 PM [facility] % NEUT 64.9 % 10/26/2023 11:40 PM [facility] % LYMPH 14.5 % 10/26/2023 11:40 PM [facility] % MONO 8.6 % 10/26/2023 11:40 PM [facility] % EOS 11.7 % 10/26/2023 11:40 PM [facility] % BASO 0.3 % 10/26/2023 11:40 PM [facility] ABSOLUTE NEUTROPHILS 4.2 1.7 - 7.0 thou/cu mm 10/26/2023 11:40 PM [facility] ABSOLUTE LYMPHOCYTES 0.9 0.9 - 2.9 thou/cu mm 10/26/2023 11:40 PM [facility] ABSOLUTE MONOCYTES 0.6 <0.9 thou/cu mm 10/26/2023 11:40 PM [facility] ABSOLUTE EOSINOPHILS 0.8(H) <0.5 thou/cu mm 10/26/2023 11:40 PM [facility] ABSOLUTE BASOPHILS 0.0 <0.3 thou/cu mm 10/26/2023 11:40 PM [facility] Blood BLOOD SPECIMEN / Unknown Venipuncture / Unknown 10/26/2023 11:29 PM T 10/26/2023 11:31 PM CDT Misha Styles III, MD [facility] [address] [address] * LIPID PANEL (09/18/2023 4:17 AM CDT) CHOLESTEROL,TOTAL 174 100 - 199 mg/dL 09/18/2023 4:54 AM CDT [facility] Comment: Cholesterol, Total Reference Ranges Desirable <200 mg/dL Borderline 200-239 mg/dL High >=240 mg/dL TRIGLYCERIDES 105 <150 mg/dL 09/18/2023 4:54 AM CDT [facility] HDL CHOLESTEROL 42 >40 mg/dL 4:54 AM T [facility] NON-HDL CHOLESTEROL 132 <145 mg/dl 09/18/2023 4:54 AM T [facility] CHOL/HDL RATIO 4.14 <4.50 09/18/2023 4:54 AM T [facility] LDL CHOLESTEROL 111 <=130 mg/dL 09/18/2023 4:54 AM T [facility] VLDL CHOLESTEROL 21 <=30 mg/dL 09/18/2023 4:54 AM T [facility] PROVIDER ORDERED STATUS RANDOM 09/18/2023 4:54 AM T [facility] Blood BLOOD SPECIMEN / Unknown Venipuncture / Unknown 09/18/2023 4:17 AM CDT 09/18/2023 4:27 AM CDT Wendy Lomeli DO CHEMISTRY [facility] SENDOUT INTERNAL ZIP [id number] [place] [phone] from Last 3 Months or Most Recently [...] Code Status Discussion: Not Discussed Care Teams Making Machine Operator Relationship Specialty Start Date End Date Munir Sahu MD [address] [place] [address] PCP - General Family Practice 09/17/23 [facility] [address] [place] [address] 09/28/23
--- OUTSIDE RECORDS SUMMARY | 2023-12-30 07:50 | XMS_ITS | Encounter Summary ---
Author Organization [facility] Address [address] [place] [address] Care Team Providers Care Assembly Machine Operator Name Role Phone Elsewhere, Pcp Primary Care Provider Unavailabl e Reason for Visit * Reason Comments Weakness - Generalized Hyperglycemia Encounter Details Date Type Department Care Team (Late st Contact Info) Description 10/26/2023 10:48 PM CDT - 10/26/2023 11:59 PM CDT Emergency [facility] [address] [place] [id number] Hyperglycemia (Primary Dx) Discharge Disposition: Home or [...] bandage 12 10/03/2017 FreeStyle João 14 Day [place] misc 02/17/2021 FreeStyle João 14 Day Sensor [...] Primary documented in this encounter Care Teams Assembly Machine Operator Relationship Specialty Start Date End Date Elsewhere, Pcp PCP - General Family Medicine 06/15/17 documented as of this encounter
--- OUTSIDE RECORDS SUMMARY | 2023-12-30 07:50 | XMS_ITS ---
Author Organization [facility] Address [address] [place] [address] Care Team Providers Care Filling Station Equipment Mechanic Name Role Phone Unavailable Unavailable Unavailable Surgery Details Not on file Complications Check Surgery Details section. Procedure Estimated Blood Loss Check Surgery Details section. Procedure Findings Check Surgery Details section. Procedure Specimens Taken Check Surgery Details section.
--- OUTSIDE RECORDS SUMMARY | 2023-12-30 07:50 | XMS_ITS | Referral Summary ---
Author Organization [facility] Address [address] [place] [address] Care Team Providers Care Leak Inspector Name Role Phone Elsewhere, Pcp Primary Care Provider Unavailabl e Source Comments Patient records contain information from all sites at [facility]. For routine questions regarding patient records, call [phone] during business hours, M-F 8:00 AM - 5:00 PM Central Time. Record requests for emergency care only can be directed to [phone] at any time.[facility] Encounters Date Type Department Care Team Description 10/26/2023 10:48 PM CDT - 10/26/2023 11:59 PM CDT Emergency [facility] [address] [place] [address] Hyperglycemia (Primary Dx) Discharge Disposition: Home or Self Care from Last 3 Months Allergies Active Allergy Reactions Criticality Noted Date Comments Dimethicone-Petrolatum Rash 02/01/2014 Horse [place] Rash 07/16/2016 Silver Sulfate-Foam Bandage Rash 02/02/20 [...] mouth. 11/07/2019 Active FreeStyle João 14 Day [place] misc 02/17/2021 Active FreeStyle João 14 Day [...] Comments Blood Pressure 160/85 04/17/2021 1:03 PM FREIGHT AGENT Pulse 74 04/17/2021 1:03 PM FREIGHT AGENT Temperature 36.4 ??C (97.5 ??F) 04/17/2021 1:03 PM CS T Respiratory Rate 14 02/15/2021 1:17 PM FREIGHT AGENT Oxygen Saturation 95% 02/15/2021 1:17 PM FREIGHT AGENT Inhaled Oxygen Concentration - - Weight 138 kg (304 lb 3.8 oz) 04/17/2021 1:03 PM FREIGHT AGENT Height 178 cm (5' 10.08) 04/17/2021 1:03 PM FREIGHT AGENT Body Mass Index 43.55 04/17/2021 1:03 PM FREIGHT AGENT Plan of Treatment Not on file Procedures [...] Recently Relevant to Health Maintenance Care Teams Leak Inspector Relationship Specialty Start Date End Date Elsewhere, Pcp PCP - General Family Medicine 06/15/17
== END 2023-12-30 07:47 | disposition home or self-care (01) ==
LOC: WOUND 07:46
PROVIDERS: PCP Family Medicine; Visit Provider Nurse Practitioner Family
DX: I87.312 Chronic venous hypertension (idiopathic) with ulcer of left lower extremity (principal); I87.2 Venous insufficiency (chronic) (peripheral); E11.622 Type 2 diabetes mellitus with other skin ulcer; L97.322 Non-pressure chronic ulcer of left ankle with fat layer exposed; Z79.84 Long term (current) use of oral hypoglycemic drugs
CPT/HCPCS: 11042

== ENCOUNTER 2024-01-13 07:44 | Outpatient (CLI) | payer OTHER, SELFPAY ==
--- OUTSIDE RECORDS SUMMARY | 2024-01-13 07:46 | XMS_ITS | Referral Summary ---
Author Organization [facility] Address [address] [place] [address] Care Team Providers Care Trashman Name Role Phone Munir Sahu MD Primary [...] Advance Directives For more information, please contact: [phone] * Full Code (Latest Code Status on File) Date Activated Date Inactivated Comments 11/06/2019 2:19 PM 11/07/2019 9:06 PM All basic and advanced life-sustaining interventions are performed as appropriate Question Answer Comments Code status determined by: Unable to det ermine; FULL CODE until documents or legal decision maker available Care Teams Trashman Relationship Specialty Start Date End Date Munir Sahu MD PCP - General Family Practice 10/22/19
--- OUTSIDE RECORDS SUMMARY | 2024-01-13 07:46 | XMS_ITS | Clinical Summary ---
Author Organization [place] Address [address] [place] [address] Care Team Providers Care Coffee Shop Aide Name Role Phone Munir Sahu MD Primary [...] Advance Directives For more information, please contact: [phone] * Full Code (Latest Code Status on File) Date Activated Date Inactivated Comments 11/06/2019 2:19 PM 11/07/2019 9:06 PM All basic and advanced life-sustaining interventions are performed as appropriate Question Answer Comments Code status determined by: Unable to det ermine; FULL CODE until documents or legal decision maker available Care Teams Coffee Shop Aide Relationship Specialty Start Date End Date Munir Sahu MD PCP - General Family Practice 10/22/19
--- OUTSIDE RECORDS SUMMARY | 2024-01-13 07:46 | XMS_ITS | Data Portability ---
Author Organization [place] [facility] Address [address] [facility] [address] [place] [address] Care Team Providers Care Senior Java Programmer Name Role Phone GORDY SOL Primary Care Provider Assessment Encounter Date Assessment Date Assessment LastModified by Organization Details LastModified Time 11/21/2019 11/21/2019 59M with [id number] [place] 3+4=7 prostate cancer s/p RALP. Discussed pathology, risk of recurrence, need for ongoing PSA monitoring. Small anastomotic leak, will cont Choi x 1 more week. Worsened LE edema, likely chronic, but will check LE u/s to be sure no DVT. [email or web address] Not available 11/21/2019 14:07:03 01/02/2020 01/02/2020 59M with [id number] [place] 3+4=7 prostate cancer s/p RALP. 1) Prostate cancer - f/u 4 months with PSA 2) EVETTE, moderate - cont Kegels - consider PFPT 3) ED - Cialis PRN [email or web address] Not available 01/02/2020 09:34:03 05/01/2020 05/01/2020 60M with [id number] [place] 3+4=7 prostate cancer s/p RALP 6 months ago. MICHAEL. 1) Prostate cancer - f/u 6 months with PSA 2) EVETTE, moderate - cont Kegels - consider PFPT 3) ED - Cialis PRN [email or web address] Not available 05/01/2020 10:47:29 10/24/2020 10/24/2020 60M with [id number] [place] 3+4=7 prostate cancer s/p RALP 1 [...] floor therap y referr al 2020 021 [facility], [address], [facility] [address], [place], [address], 09:57:49 Procedures None record ed. Surgeries None record ed. Imaging None record ed. Medication Orders None record ed. Patient TargetsNo targets recorded. Patient Instructions Encounter Date Encounter Id Patient Instructions Last Modified By Organization Details Last Modified Time 11/28/2019 [id number] To follow up sumaya Doshi at his [...] Not Available [facility] [address], [place], [address], 05/01/2020 10:40:29 02/11/2020 lab* PSA <0.04 normal Not Available No t Available 01/07/2020 12:33:24 01/02/2020 PSA, serum or plasm a PSA, Total <0.04 ng/Ml Not Available [facility] [address], [place], [address], 01/02/2020 09:14:10 10/25/19 21 10/24/2020 PSA, serum or plasm a PSA, Total <0.04n g/mL Not Available [facility] [address], [place], [address], 10/24/2020 10:45:30 11/23/19 20 11/21/2019 CT, pelvi s, w/o contr ast No observ ation record ed. cedric Not Available 17:13:18 Result Notes None recorded. Problems Name Problem SNOMED Code Status Onset Date Resolution Date Notes Provider Name and Address Organization Details Recorded Time Carcinoma of prostate 396835985 Active 2019 Caroline kruger [facility] 0 10:59:25 Male urinary stress incontinence 705563192 Active 2020 Momo mcfarlane MD, PHD [address] [place] [address],[address] [place] [address], [phone], [facility] 10:47:38 Primary erectile dysfunction 376229655 Active 2020 Momo mcfarlane MD, PHD [address] [place] [place] [address],[address] [place] [address], [phone], [facility] 10:47:58 Problem Notes None recorded. Procedures Surgical History Date Name Laterality Status Provider Name and Address Organization Details Recorded Time 10/25/19 21 Blood Draw/MEDIA RELATIONS SPECIALIST/PSA RESULTS completed Momo baez MD, PHD [address] [place] [address],[address], [place], [address], [facility] 10/24/2020 10:45:26 05/01/19 21 Blood Draw/MEDIA RELATIONS SPECIALIST/PSA RESULTS completed Momo baez MD, PHD [address] [place] [address],[address], [address], [facility] 05/01/2020 10:40:25 01/02/20 20 Blood Draw/MEDIA RELATIONS SPECIALIST/PSA RESULTS completed Janice Ayala [facility] 01/02/2020 09:14:04 11/28/19 20 Choi Catheter Removal completed Caroline Smith [facility] 02/04/2020 12:00:10 Prostatectomy completed Momo baez MD, PHD [address] [place] [address],[address], [address], [facility] 10/24/2020 10:44:48 colonoscopy completed Monica Awan [facility] 12/09/2020 10:47:07 Imaging Results Imaging [...] Name and Address Organization Details Recorded Time 770156 silver medicatio n Not available Not available Not available 11/21/2019 29088 43 RxNorm Caroline Rojasyoandy kruger [facility] 0 11:09:54 [id number] adhesive tape environme nt,medica tion Not available Not available Not available 11/21/2019 Caroline Bobyoandy kruger [facility] 0 11:10:01 Medications Name Sig [...] Updated DateTime 01/02/2020 180.34 cm 39.3 kg/m2 577885.[address] [facility] 01/02/2020 09:09:40 Date Recorded Body height Body mass index (BMI) Body weight Provider Name and Address Organization Details Last Updated DateTime 05/01/2020 180.34 cm 39.3 kg/m2 146955.05 g Momo baez MD, PHD [address] [place], [place] [address] [place] [address] 05/01/2020 10:39:59 Date Recorded Body height Body mass index (BMI) Body weight Provider Name and Address Organization Details Last Updated DateTime 10/24/2020 180.34 cm 39.7 kg/m2 317484.83 g Momo baez MD, PHD [address] [place] [address] 10/24/2020 10:44:13 Date Recorded Body height Body mass index (BMI) Body weight Provider Name and Address Organization Details Last Updated DateTime 11/21/2019 180.34 cm 39.3 kg/m2 089139.[address] [facility] 11/21/2019 11:09:04 Social History Question Answer Notes LastModified by Organizat ion Details LastModified Time Tobacco Smoking Status Never Smoker Caroline kruger [facility] 11/21/2019 11:10:15 What Is Your [...] Diagnosis/Indication Diagnosis SNOMED-CT Code Diagnosis ICD10 Code [id number] [facility]o beard [facility] [address] [place] [address] 11/21/2019 10:45:55 11/21/2019 15:00:28 Malignant tumor of prostate 197510113 C61 [id number] [facility] [address] [place] [address] 11/28/2019 09:57:13 02/06/2020 03:54:17 [id number] Momo beard MD, PHD [facility] [address] [place] [address] 01/02/2020 08:46:59 01/02/2020 14:22:16 Malignant tumor of prostate 414894997 C61 [id number] Momo beard MD, PHD [facility] [address] [place] [address] 05/01/2020 09:26:51 05/01/2020 12:03:29 Malignant tumor of prostate 981891716 C61 Primary er ectile dysfunction 229069350 N52.9 [id number] Momo beard MD, PHD [facility] [address] [place] [address] 10/24/2020 10:28:04 10/27/2020 16:45:05 Carcinoma of prostate 408113237 C61 Malignant tumor of prostate 750064639 C61 Primary er ectile dysfunction 476509260 N52.9 Male urina ry stress incontinence 427447594 N39.3 Health Concerns Section Related Observation LastModified by Organization Detai ls LastModified Time None Recorded Concern Status LastModified by Organization Details LastModified Time None Recorded Advance Directives Directive None Recorded Payers Encounter Date Sequence Insurance Name Policy Number Policy Archibald Covered Member ID Archibald Member ID Guarantor Name 11/21/2019 1 [facility] [id number] Julien Gonsalvesretmaynor [id number] Julien Ridley 11/28/2019 1 [facility] [id number] Julien Gonsalvesretson [id number] Julien Ridley 01/02/2020 1 [facility] [id number] Julien Gonsalvesretson [id number] Julien Ridley 05/01/2020 1 [facility] [id number] Julien Gonsalvesretson [id number] Julien Ridley 10/24/2020 1 [facility] [id number] Julien Gonsalvesretson [id number] Julien Ridley Notes Date Note Type Note Provider Name and Address Organization Details Recorded Time 11/21/2019 text/html HPI Notes: 59M s /p RALP 11/06/19 for [id number] [place] 3+4=7 prostate cancer (0/12 LN, -SMS) Overall doing well. Some drainage umbilical incision. Chronic LE edema worse especially R>L. Some hematuria when having BMs. No fever. Eating ok. Minimal pain. CT Cystogram today: small anastomotic leak PSA (07/27/19): 6.5 CONSTANZA: cT1c, 35g (J Carlos) MRI: none Biopsy (08/30/19): 23g, 3/12 cores (LLM, LMB, LMM [place] 3+4=7 up to 40%) Pre-op ED: 05/09 Momo Holliday MD, PHD [address] [facility] [address], [place], [address], [facility] 11/21/2019 14:07:42 01/02/2020 text/html HPI Notes: 59M with [id number] [place] 3+4=7 prostate cancer (0/12 LN, -SMS) s/p RALP 11/06/19. Small anastomotic leak, catheter removed 11/28/19. Overall doing well. C/o some leakage with BMs and position changes. Uses multiple depends per day...... LE u/s to eval for dvt last visit was negative PSA Results 07/27/19: 6.5 01/02/20: <0.04 UF: 4/5 EF: 5/5 Pre-op EF: 2/5 Momo Holliday MD, PHD [address] [place] [address],[address], [address], [facility] 01/02/2020 09:35:54 05/01/2020 text/html HPI Notes: 60M with [id number] [place] 3+4=7 prostate cancer (0/12 LN, -SMS) s/p RALP 11/06/19. Small anastomotic leak, catheter removed 11/28/19. Overall doing well. C/o some leakage with BMs and position changes. Uses 4ppd which is improvement. No problems with incisions. PSA Results 07/27/19: 6.5 01/02/20: <0.04 05/01/20: <0.04 UF: 3/5 EF: 5/5 Pre-op EF: 2/5 Momo Holliday MD, PHD [address] [place] [address], [phone], [facility] 05/01/2020 10:48:15 10/24/2020 text/html HPI Notes: 60M with [id number] [place] 3+4=7 prostate cancer (0/12 LN, -SMS) s/p RALP 11/06/19 Overall doing well. C/o some leakage with BMs and position changes and sexual activity. Uses 4ppd still. No problems with incisions. PSA Results 07/27/19: 6.5 01/02/20: <0.04 05/01/20: <0.04 10/24/20: <0.04 UF: 3/5 EF: 5/5 Pre-op EF: 2/5 Momo Holliday MD, PHD [address] [place] [address],[place] [address], [place], [address], [facility] 10/24/2020 11:30:55
--- OUTSIDE RECORDS SUMMARY | 2024-01-13 07:47 | XMS_ITS | Clinical Summary ---
Author Organization [employer] [facility] s & [facility] Address [place], [place] [address] Care Team Providers Care Lens Edge Grinder Machine Name Role Phone Munir Sahu MD Primary Care Provider + [facility], [facility] [phone] Allergies Active Allergy Reactions Criticality Noted Date [...] by insurance) 9 mL 09/28/2023 Active Insulin [place], Disposable, (Susana Pen Needle) 32 gauge x [...] Diagnosed Date Coronary artery disease invo [facility] [place] coronary artery without angina pectoris 10/28/2023 Overview [...] Encounters Date Type Department Care Team Description 01/12/2024 6:58 AM CDT - 01/12/2024 11:59 PM CDT Hospital Encounter [facility] [address] [facility] [address] 01/12/2024 Travel 01/11/2024 6:56 AM CDT - 01/11/2024 11:59 PM CDT Hospital En[facility] [address] [facility] [address] 01/11/2024 Travel 01/05/2024 6:56 AM CDT - 01/05/2024 11:59 PM CDT Hospital Encounter [facility] [address] [place] [address] 01/05/2024 Travel 01/04/2024 6:56 AM CDT - 01/04/2024 11:59 PM CDT Hospital Encounter [facility] [address] [place] [address] 01/04/2024 Travel 01/02/2024 7:00 AM CDT - 01/02/2024 11:59 PM CDT Hospital Encounter [facility] [address] [place] [address] 01/02/2024 Travel 12/22/2023 6:51 AM CDT - 12/22/2023 11:59 PM CDT Hospital Encounter [facility] [address] [facility] [place] [address] 12/22/2023 Travel 12/21/2023 6:51 AM CDT - 12/21/2023 11:59 PM CDT Hospital Encounter [facility] [address] [place] [address] 12/21/2023 Travel 12/19/2023 9:30 AM CDT Orders Only [facility] [address] [place] [address] 2 scans: (2-Ord) US VENOUS INSUFFICIENCY LOWER EXTREMITY BILATERAL ([id number]) 12/19/2023 7:30 AM CDT - 12/19/2023 11:59 PM CDT Hospital Encounter [facility] [address] [facility] [place] [address] 12/19/2023 Travel 12/15/2023 6:57 AM CDT - 12/15/2023 11:59 PM CDT Hospital Encounter [facility] [address] [facility] [place] [address] 12/15/2023 Travel 12/14/2023 6:54 AM CDT - 12/14/2023 11:59 PM CDT Hospital Encounter [facility] [address] [place] [address] 12/14/2023 Travel 12/13/2023 1:30 PM CDT Office Visit [facility] [address] [place] [address] Kamran Li MD Follow Up (Dr. Li [...] - 12/13/2023 11:59 PM CDT Hospital Encounter [facility] [address] [facility] [address] [place] [address] Kamran Li MD CAD, multiple vessel; S/p 3V CABG (SHER-LAD, LISA-ramus, radial-OM), 09/23/2023 12/13/2023 Travel 12/12/2023 7:00 AM CDT - 12/12/2023 11:59 PM CDT Hospital Encounter [facility] [address] [facility] [place] [address] 12/12/2023 Telephone [facility] [address] [place] [address] Gina Jaime Cardiovascular Diagnostic Testing (lvm to confirm 12/13/23 stress test appt) 12/12/2023 Travel 12/08/2023 6:56 AM CDT - 12/08/2023 11:59 PM CDT Hospital Encounter [facility] [address] [place] [address] 12/08/2023 Travel 12/07/2023 6:52 AM CDT - 12/07/2023 11:59 PM CDT Hospital Encounter [facility] [address] [place] [address] 12/07/2023 Travel 12/01/2023 6:55 AM CDT - 12/01/2023 11:59 PM CDT Hospital Encounter [facility] [address] [place] [address] 12/01/2023 Travel 11/30/2023 6:55 AM CDT - 11/30/2023 11:59 PM CDT Hospital Encounter [facility] [address] [place] [address] 11/30/2023 Travel 11/29/2023 9:09 AM CDT - 11/29/2023 11:59 PM CDT Hospital Encounter [facility] [address] [place] [address] Alejandra Lau PA S/p 3V CABG (SHER-LAD, LISA-ramus, radial-OM), 09/23/2023 11/29/2023 Travel 11/28/2023 7:30 AM CDT Home Care Visit [facility] [address] [place] [address] Elvira Reyes, RN SN - OASIS DISCHARGE 11/22/2023 10:45 AM CDT Home Care Visit [facility] [address] [place] [address] Tyson Mejias, PT PT - DISCIPLINE DISCHARGE 11/21/2023 10:00 AM CDT Home Care Visit [facility] [address] [place] [phone] Irma Hollins, RN SN - HOME VISIT 11/17/2023 7:30 AM CDT Home Care Visit [facility] [address] [place] [phone] Tyson Mejias, PT PT - HOME VISIT 11/15/2023 8:30 AM CDT Home Care Visit [facility] [address] [place] [phone] Tyson Mejias, PT PT - HOME VISIT 11/14/2023 8:30 AM CDT Home Care Visit [facility] [address] [place] [phone] Elvira Reyes RN SN - HOME VISIT 11/14/2023 3:30 AM CDT Home Care Visit [facility] [address] [place] [phone] Ailyn Varghese RN SN - WOUND/OSTOMY CHART CONSULT 11/11/2023 Telephone [facility] [address] [place] [address] Anibal Quigley MD Referral 11/10/2023 8:00 AM CDT Home Care Visit [facility] [address] [place] [phone] Tyson Mejias, PT PT - HOME VISIT 11/09/2023 10:00 AM CDT Home Care Visit [facility] [address] [place] [phone] Isa Cintron RN SN - HOME VISIT 11/09/2023 Orders Only [facility] [address] [place] [address] Antoinette Lopez PA <No scans attached> 11/08/2023 Home Care Visit [facility] [address] [place] [phone] Tyson Mejias, PT CARE COORDINATION 11/07/2023 8:15 AM CDT Home Care Visit [facility] [address] [place] [address] Tyson Mejias, PT PT - INITIAL ASSESSMENT 11/07/2023 7:30 AM CDT Home Care Visit [facility] [address] [place] [address] Lexi Esteves, CHITRA SN - HOME VISIT 11/04/2023 Home Care Visit [facility] [address] [place] [address] Elvira Reyes RN CARE COORDINATION 11/04/2023 Telephone [facility] [address] [facility] [address] [place] [address] Gregorio Olivia MD Medication Management (amlodipine) 11/02/2023 8:30 AM CDT Home Care Visit [facility] [address] [place] [address] Nohemy Anna PLANT ELECTRICAL ENGINEER PLANT ELECTRICAL ENGINEER - HOME VISIT 10/31/2023 3:00 PM CDT Home Care Visit [facility] [address] [place] [phone] Evie Young RN SN - HOME VISIT 10/31/2023 Procedure Only [facility] [address] [place] [phone] Device Check (Remote Leadless Pacemaker Ca... 10/28/2023 5:20 AM CDT - 10/28/2023 1:20 PM CDT Hospital Encounter [facility] [address] [place] [address] Kamran Li MD Essential hypertension (Primary Dx); CAD, multiple vessel; S/p 3V CABG (SHER-LAD, LISA-ramus, radial-OM), 09/23/2023 Discharge Disposition: Home Self Care 10/28/2023 Home Care Visit [facility] [address] [place] [phone] Elvira Reyes RN CARE TRANSITION NOTE 10/28/2023 Travel 10/27/2023 8:30 AM CDT Home Care Visit [facility] [address] [place] [address] Elvira Reyes RN SN - HOME VISIT 10/26/2023 10:48 PM CDT - 10/27/2023 12:53 AM CDT [facility] [address] [place] [address] Misha Styles III, MD Insomnia, unspecified type (Primary Dx); Anxiety Discharge Disposition: Home Self Care 10/26/2023 Travel 10/24/2023 9:00 AM CDT Home Care Visit [facility] [address] [place] [address] Elvira Reyes RN SN - HOME VISIT 10/21/2023 Home Care Visit [facility] [address] [place] [address] Elvira Reyes RN CARE COORDINATION 10/21/2023 Telephone [facility] [address] [place] [address] Kary Aiken MD Pre Procedure 10/21/2023 Telephone [facility] [address] [place] [address] Jen Greenberg NP Results 10/20/2023 1:50 PM CDT Orders Only [facility] [address] [place] [address] Lab 10/20/2023 1:00 PM CDT Office Visit [facility] [address] [place] [address] Jne Greenberg NP Follow Up (3-4 weeks for [...] 10/19/2023 7:45 AM CDT Home Care Visit [facility] [address] [place] [address] Elvira Reyes RN SN - HOME VISIT 10/17/2023 5:00 AM CDT Home Care Visit [facility] [address] [place] [address] Isa Cintron RN SN - HOME VISIT from Last 3 Months Family History Medical [...] Care Team (Late st Contact Info) Description 01/16/2024 7:[address] [facility] [address] [place] [address] 01/18/2024 7:[address] [facility] [address] [place] [address] 01/19/2024 7:[address] [facility] [address] [place] [address] 01/23/2024 7:[address] [facility] [address] [place] [address] 01/25/2024 7:[address] [facility] [address] [place] [address] 01/26/2024 7:[address] [facility] [address] [place] [address] 01/30/2024 7:[address] [facility] [address] [place] [address] 02/01/2024 7:[address] [facility] [address] [place] [address] 02/02/2024 7:[address] [facility] [address] [place] [address] 02/06/2024 7:00 AM CLERICAL CLERK Appointment [facility] [address] [place] [address] 02/08/2024 7:00 AM CLERICAL CLERK Appointment [facility] [address] [place] [address], [place] [address] 02/09/2024 7:00 AM CLERICAL CLERK Appointment [facility] [address] [place] [address] 02/13/2024 7:00 AM CLERICAL CLERK Appointment [facility] [address] [facility] [facility] [place] [address] 02/15/2024 7:00 AM CLERICAL CLERK Appointment [facility] [address] [place] [address] 02/16/2024 7:00 AM CLERICAL CLERK Appointment [facility] [address] [place] [address] 02/20/2024 7:00 AM CLERICAL CLERK Appointment [facility] [address] [facility] [place] [address] 02/27/2024 Procedure Only [address] [place] [phone] Health Maintenance Due Date Last Done Comments [...] Priority Date/Time Associated Diagnosis Comments GLUCOSE METER Routine 01/12/2024 7:52 AM CDT GLUCOSE METER Routine 01/12/2024 7:06 AM CDT SCAN-CARDIAC REHABILITATION 01/12/2024 7:02 AM CDT GLUCOSE METER Routine 01/11/2024 8:02 AM CDT GLUCOSE METER Routine 01/11/2024 7:07 AM CDT SCAN-CARDIAC REHABILITATION 01/11/2024 7:04 AM CDT SCAN-CARDIAC REHABILITATION 01/11/2024 7:04 AM CDT SCAN-CARDIAC REHABILITATION 01/05/2024 7:02 AM CDT SCAN-CARDIAC REHABILITATION 01/04/2024 7:03 AM CDT SCAN-CARDIAC REHABILITATION 01/02/2024 7:11 AM CDT SCAN-CARDIAC REHABILITATION 12/22/2023 7:01 AM CDT SCAN-CARDIAC [...] Relevant to Health Maintenance Results * (ABNORMAL) GLUCOSE METER (01/12/2024 7:52 AM CDT) Only the most recent of10 resultswithin the time period is included. GLUCOSE METER 154(H) 65 - 100 mg/dL 01/12/2024 7:57 AM CDT [facility] Blood BLOOD SPECIMEN / Unknown 01/12/2024 7:52 AM CDT 01/12/2024 7:57 AM CDT Doctor Unknown CHEMISTRY Performing Organization Address City/State/[facility] Co de Phone Number [facility] [address] [address] * SCAN-CARDIAC REHABILITATION (01/12/2024 7:02 AM CDT) Only the most recent of17 resultswithin the time period is included. Scanner OTHER * US VENOUS INSUFFICIENCY LOWER EXTREMITY BILATERAL (12/19/2023 1:21 PM CDT) Anatomical Region Laterality Modality LEGS Ultrasound 12/19/2023 9:22 AM CDT Narrative 12/19/2023 5:10 PM CDT VASCULAR ULTRASOUND REPORT JOSE GUADALUPE RIDLEY Accession#: ?? [id number] : ?1960 ??Study Date: ?? 12/19/2023 9:22:18 AM Age: ?63 years ?? Tech: ? PMK Gender: M ?Referring MD: ANTOINETTE LOPEZ Site: [facility] Study performed: ?Duplex US venous insufficiency, (bilateral). [...] and distal calf. 5. Incompetent varicose and/or returned materials inspector veins as listed below. COMPARISON: No prior [...] Accreditation Commission (IAC/Vascular), www.intersocietal.org/vascular Report generated by [employer]. ??Final ?? Procedure Note Anderson Petersen MD - 12/19/2023 VASCULAR ULTRASOUND REPORT JOSE GUADALUPE RIDLEY : 1960 Study Date: 12/19/2023 9:22:18 AM Age: 63 years Tech: PMK Gender: M Referring MD: ANTOINETTE LOPEZ Site: [facility] Study performed: Duplex US venous insufficiency, (bilateral). [...] and distal calf. 5. Incompetent varicose and/or returned materials inspector veins as listed below. COMPARISON: No prior [...] theIntersocietal Accreditation Commission (IAC/Vascular),www.intersocietal.org/vascular Report generated by [employer]. Final Antoinette FAJARDO US * NM CARDIAC MPI STRESS TEST (12/13/2023 10:08 AM CDT) Anatomical Region Laterality Modality HEART Nuclear Medicine 12/13/2023 7:07 AM CDT Narrative 12/13/2023 12:48 PM CDT 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 Monitoring Provider: KARY AIKEN Weight: 280 lbs BMI: 39.2 kg/m?? Ordering Provider: KAMRAN LI Location: [facility] Indication: S/P CABG x 3; CAD, multiple [...] / 60 % MPHR: 51 Double Product: [id number] Recovery HR(bpm): 71 Recovery BP(mmHg): 124 / [...] 0 Apical Lateral: 0 Apical Lateral: 0 [place]: 0 [place]: 0 Summed Stress Score: 2 Summed Rest [...] left ventricular wall motion. Anderson ??Lolis NOBLES [facility] Accredited Site (Electronically Signed) Final Date: 13 December 2023 12:48 ICD-10 Codes: Z95.1; I25.10 CC Providers: Dr. Munir Sahu Procedure Note Anderson Danielle MD - 12/13/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 Monitoring Provider:KARY AIKEN Weight: 280 lbs BMI: 39.2 kg/m?? Ordering Provider: KAMRAN LI Location: [facility] Indication: S/P CABG x 3; CAD, multiple [...] 142 / 60 % MPHR: 51 Double Product:70013 Recovery HR(bpm): 71 Recovery BP(mmHg): 124 / [...] 0 Apical Lateral: 0 Apical Lateral: 0 [place]vel[place]: 0 [place]: 0 Summed Stress Score: 2 Summed Rest [...] left ventricular wall motion. Anderson Danielle MD [facility] Accredited Site (Electronically Signed) Final Date: 13 December 2023 12:48 ICD-10 Codes: Z95.1; I25.10 CC Providers: Dr. Munir Sahu Kamran Li MD NM * SCAN-CARDIAC STRIP (10/28/2023 10:55 AM CDT) [...] NOW QTc 472 ms BEYOND NOW P Concord 56 degrees BEYOND NOW R [place] 45 degrees BEYOND NOW T [place] 70 degrees BEYOND NOW 10/28/2023 10:3 3 AM CDT 10/28/2023 11:07 AM CDT Kamran Li MD EKG ORD BEYOND NOW [place], [place] * (ABNORMAL) ACTIVATED CLOTTING TIME NUD678 ACT (10/28/2023 8:56 AM CDT) ACTIVATED CLOTTING TIME, POCT 304(H) 74 - 125 sec 10/28/2023 12:18 PM CDT [facility] Blood BLOOD SPECIMEN / Unknown 10/28/2023 8:56 AM CDT 10/28/2023 12:18 PM CDT Kamran Li MD HEMATOLOGY [facility] SENDOUT [place]IP [id number] [place] [address] * CVL PCI ONLY (10/28/2023 8:19 AM CDT) Anatomical Region Laterality Modality X-Ray Angiograph y 10/28/2023 8:19 AM CDT Narrative Transcriptions Kamran Li MD - 10/28/2023 9:33 AM CDT [facility] Cardiac Catheterization Report Name: JOSE GUADALUPE RIDLEY Event Date: 10/28/2023 08:19 [facility] ID #: [id number] JAKE #: [id number] Diagnostic Physician: KAMRAN LI [facility] Interventional Physician: KAMRAN LI [facility] Referring Physician: GREGORIO OLIVIA Date: 1960 Gender: [...] inhibit spasm of the radialgraft. Consent & Boston Protocol The risks, benefits, and alternatives of the procedure were discussed withthe patient and written informed consent was obtained. Boston protocol was followed. TIME OUT conducted just prior tostarting procedure confirmed patient identity, site/side, procedure,patient position, and availability of correct equipment and implants (ifapplicable). Staff Name Title KAMRAN LI Patient Transport Orderly Rafaela Bailey RN Nurse Hung Oviedo RTR Scrub Machelle Lowe RTR Monitor Jimmie Merino CVT Pot Washer Procedures ? US Guided Access ? Coronary [...] 1 Distal RCA Drug Eluting Stent Rosalio Paulding 3.50 x 22mm Procedure Details Estimated Blood Loss: < 30 ml Specimen Collected: None Level of Sedation Achieved: Moderate Procedure Start: 08:19 Procedure End: 09:22 Procedure Time: 63 min Fluoroscopy Time: 16.2 min Cumulative Air Kerma: 1697 mGy DAP: 75677 mGy/cm2 Contrast: Omnipaque, 230 ml Physiologic Data [...] IV Kamran Li Kendra RN 08:39 Heparin 80525 units IV Kamran Li Kendra RN 08:44 [...] healthcare professional providing the sedation ends personal [id number] time with the patient. The medications listed above were verbally ordered by me and read back tome as documented above. Refer to the procedure log report for additional case details. electronically signed on 10/28/2023 9:33:27 AM with status of Final Kamran Li MD [address], [place] [address] [place] [address] (p) [phone](f) Alejandra FAJARDO CV IMAGING * (ABNORMAL) CBC with Platelets no Differential (10/28/2023 6:35 AM CDT) Only the most recent of2 resultswithin the time period is included. WHITE BLOOD COUNT 5.9 4.5 - 11.0 thou/cu mm 10/28/2023 6:52 AM CDT [facility] RED BLOOD COUNT 4.27(L) 4.30 - 5.90 mil/cu mm 10/28/2023 6:52 AM CDT [facility] HEMOGLOBIN 12.6(L) 13.5 - 17.5 g/dL 10/28/2023 6:52 AM CDT [facility] HEMATOCRIT 38.9 37.0 - 53.0 % 10/28/2023 6:52 AM CDT [facility] MCV 91 80 - 100 fL 10/28/2023 6:52 AM CDT [facility] MCH 29.5 26.0 - 34.0 pg 10/28/2023 6:52 AM CDT [facility] MCHC 32.4 32.0 - 36.0 g/dL 10/28/2023 6:52 AM CDT [facility] RDW 14.6 11.5 - 15.5 % 10/28/2023 6:52 AM CDT [facility] PLATELET COUNT 193 140 - 440 thou/cu mm 10/28/2023 6:52 AM CDT [facility] MPV 9.6 6.5 - 11.0 fL 10/28/2023 6:52 AM CDT [facility] NRBC 0.0 % 10/28/2023 6:52 AM CDT [facility] ABS NRBC 0.0 thou /cu mm 10/28/2023 6:52 AM T [facility] Blood BLOOD SPECIMEN / Unknown Venipuncture / Unknown 10/28/2023 6:35 AM CDT 10/28/2023 6:45 AM CDT Gregorio Elizabeth MD HEMATOLOGY [facility] SENDOUT INTERNAL ZIP [id number] [place], [place] [id number] * (ABNORMAL) Basic Metabolic Panel (10/28/2023 6:35 AM CDT) Only the most recent of3 resultswithin the time period is included. SODIUM 139 136 - 145 mmol/L 10/28/2023 7:19 AM CDT [facility] POTASSIUM 3.8 3.5 - 5.1 mmol/L 10/28/2023 7:19 AM CDT [facility] CHLORIDE 102 98 - 107 mmol/L 10/28/2023 7:19 AM CDT [facility] CO2,TOTAL 25 22 - 29 mmol/L 10/28/2023 7:19 AM T [facility] ANION GAP 12 5 - 18 10/28/2023 7:19 AM T [facility] GLUCOSE 158(H) 70 - 99 mg/dL 10/28/2023 7:19 AM [facility] CALCIUM 9.4 8.8 - 10.2 mg/dL 10/28/2023 7:19 AM [facility] BUN 19 8 - 23 mg/dL 10/28/2023 7:19 AM [facility] CREATININE 0.97 0.70 - 1.20 mg/dL 10/28/2023 7:19 AM [facility] BUN/CREAT RATIO 20 10 - 20 7:19 AM [facility] eGFR 88(L) >90 mL/min/1.7 3m2 10/28/2023 7:19 AM [facility] Comment:As of 2021, eG [...] AM CDT Gregorio Elizabeth MD CHEMISTRY [facility] SENDOUT INTERNAL ZIP [address] [place] [address] * URINALYSIS MICROSCOPIC (10/26/2023 11:46 PM T) RBC None Seen 0-2, None Seen /HPF 10/26/2023 11:55 PM [facility] WBC 0-2 0-2, 3-5, None Seen /HPF 10/26/2023 11:55 PM [facility] BACTERIA Rare None Seen, Rare, Few Bacteria/H PF 10/26/2023 11:55 PM [facility] EPITHELIAL CELLS Few None Seen, Few Epi/HPF 10/26/2023 11:55 PM [facility] Urine URINE SPECIMEN / Unknown Non-Blood / Unknown 10/26/2023 11:46 PM CDT 10/26/2023 11:49 PM CDT Misha Styles III, MD URINE [facility] [address] [address] * (ABNORMAL) Urinalysis w Reflex Microscopic if Positive (10/26/2023 11:46 PM CDT) COLOR Yellow Yellow Color 10/26/2023 11:52 PM T [facility] CLARITY Clear Clear Clarity 10/26/2023 11:52 PM [facility] SPECIFIC GRAVITY,URINE 1.020 1.010, 1.015, 1.020, 1.025 10/26/2023 11:52 PM [facility] PH,URINE 6.0 6.0, 7.0, 8.0, 5.5, 6.5, 7.5, 8.5 10/26/2023 11:52 PM [facility] UROBILINOGEN, QUALITATIVE Normal Normal EU/dl 10/26/2023 11:52 PM [facility] PROTEIN, URINE Negative Negative mg/dL 10/26/2023 11:52 PM [facility] GLUCOSE, URINE >=1000(A) Negative mg/dL 10/26/2023 11:52 PM [facility] KETONES,URINE Negative Negative mg/dL 10/26/2023 11:52 PM [facility] BILIRUBIN,URI NE Negative Negative 10/26/2023 11:52 PM [facility] OCCULT BLOOD,URINE Negative Negative 10/26/2023 11:52 PM [facility] NITRITE Negative Negative 10/26/2023 11:52 PM [facility] LEUKOCYTE ESTERASE Negative Negative 10/26/2023 11:52 PM [facility] Urine URINE SPECIMEN / Unknown Non-Blood / Unknown 10/26/2023 11:46 PM CDT 10/26/2023 11:49 PM CDT Misha Styles III, MD URINE [facility] [address] [address] * (ABNORMAL) CBC WITH AUTO DIFFERENTIAL (10/26/2023 11:29 PM CDT) WHITE BLOOD COUNT 6.5 4.5 - 11.0 thou/cu mm 10/26/2023 11:40 PM [facility] RED BLOOD COUNT 4.13(L) 4.30 - 5.90 mil/cu mm 10/26/2023 11:40 PM [facility] HEMOGLOBIN 12.3(L) 13.5 - 17.5 g/dL 10/26/2023 11:40 PM [facility] [facility] HEMATOCRIT 39.2 37.0 - 53.0 % 10/26/2023 11:40 PM [facility] MCV 95 80 - 100 fL 10/26/2023 11:40 PM [facility] MCH 29.8 26.0 - 34.0 pg 10/26/2023 11:40 PM [facility] MCHC 31.4(L) 32.0 - 36.0 g/dL 10/26/2023 11:40 PM [facility] RDW 14.7 11.5 - 15.5 % 10/26/2023 11:40 PM [facility] PLATELET COUNT 179 140 - 440 thou/cu mm 10/26/2023 11:40 PM [facility] MPV 9.4 6.5 - 11.0 fL 10/26/2023 11:40 PM [facility] % NEUT 64.9 % 10/26/2023 11:40 PM [facility] % LYMPH 14.5 % 10/26/2023 11:40 PM [facility] % MONO 8.6 % 10/26/2023 11:40 PM [facility] % EOS 11.7 % 10/26/2023 11:40 PM [facility] % BASO 0.3 % 10/26/2023 11:40 PM [facility] ABSOLUTE NEUTROPHILS 4.2 1.7 - 7.0 thou/cu mm 10/26/2023 11:40 PM CDT [facility] ABSOLUTE LYMPHOCYTES 0.9 0.9 - 2.9 thou/cu mm 10/26/2023 11:40 PM CDT [facility] ABSOLUTE MONOCYTES 0.6 <0.9 thou/cu mm 10/26/2023 11:40 PM T [facility] ABSOLUTE EOSINOPHILS 0.8(H) <0.5 thou/cu mm 10/26/2023 11:40 PM T [facility] ABSOLUTE BASOPHILS 0.0 <0.3 thou/cu mm 10/26/2023 11:40 PM T [facility] Blood BLOOD SPECIMEN / Unknown Venipuncture / Unknown 10/26/2023 11:29 PM CDT 10/26/2023 11:31 PM CDT Misha Styles III, MD HEMATOLO GY Performing Organization Address City/State/[facility] Co de Phone Number [facility] [address] [address] * LIPID PANEL (09/18/2023 4:17 AM CDT) CHOLESTEROL,TOTAL 174 100 - 199 mg/dL 09/18/2023 4:54 AM [facility] Comment: Cholesterol, Total Reference Ranges Desirable <200 mg/dL Borderline 200-239 mg/dL High >=240 mg/dL TRIGLYCERIDES 105 <150 mg/dL 09/18/2023 4:54 AM [facility] HDL CHOLESTEROL 42 >40 mg/dL 4:54 AM [facility] NON-HDL CHOLESTEROL 132 <145 mg/dl 09/18/2023 4:54 AM [facility] CHOL/HDL RATIO 4.14 <4.50 09/18/2023 4:54 AM [facility] LDL CHOLESTEROL 111 <=130 mg/dL 09/18/2023 4:54 AM [facility] VLDL CHOLESTEROL 21 <=30 mg/dL 09/18/2023 4:54 AM [facility] PROVIDER ORDERED STATUS RANDOM 09/18/2023 4:54 AM CDT [facility] Blood BLOOD SPECIMEN / Unknown Venipuncture / Unknown 09/18/2023 4:17 AM CDT 09/18/2023 4:27 AM CDT Wendy Lomeli DO CHEMISTRY [facility] [place]IP [id number] [address] [place] [address] from Last 3 Months or Most Recently [...] Code Status Discussion: Not Discussed Care Teams Lens Edge Grinder Machine Relationship Specialty Start Date End Date Munir Sahu MD [address] [place] [address] PCP - General Family Practice 09/17/[address] [address] 09/28/23
--- OUTSIDE RECORDS SUMMARY | 2024-01-13 07:47 | XMS_ITS | Clinical Summary ---
Author Organization [facility] Address [address] [place] [address] Care Team Providers Care Expanded Function Dental Assistant Name Role Phone Elsewhere, Pcp Primary Care Provider Unavailabl e Source Comments Patient records contain information from all sites at [facility]. For routine questions regarding patient records, call [phone] during business hours, M-F 8:00 AM - 5:00 PM Central Time. Record requests for emergency care only can be directed to [phone] at any time.[facility] Allergies Active Allergy Reactions Criticality Noted Date Comments Dimethicone-Petrolatum Rash 02/01/2014 Horse [place] Rash 07/16/2016 Silver Sulfate-Foam Bandage Rash 02/02/20 [...] mouth. 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 Pulse 74 04/17/2021 1:03 PM PERCUSSION WELDING MACHINE OPERATOR Temperature 36.4 ??C (97.5 ??F) 04/17/2021 1:03 PM CS T Respiratory Rate 14 02/15/2021 1:17 PM PERCUSSION WELDING MACHINE OPERATOR Oxygen Saturation 95% 02/15/2021 1:17 PM PERCUSSION WELDING MACHINE OPERATOR Inhaled Oxygen Concentration - - Weight 138 kg (304 lb 3.8 oz) 04/17/2021 1:03 PM PERCUSSION WELDING MACHINE OPERATOR Height 178 cm (5' 10.08) 04/17/2021 1:03 PM PERCUSSION WELDING MACHINE OPERATOR Body Mass Index 43.55 04/17/2021 1:03 PM PERCUSSION WELDING MACHINE OPERATOR Plan of Treatment Health Maintenance Due [...] Recently Relevant to Health Maintenance Care Teams Expanded Function Dental Assistant Relationship Specialty Start Date End Date Elsewhere, Pcp PCP - General Family Medicine 06/15/17
--- OUTSIDE RECORDS SUMMARY | 2024-01-13 07:48 | XMS_ITS | Encounter Summary ---
Author Organization [facility] Address [address] [place] [address] Care Team Providers Care Atmospheric Chemist Name Role Phone Elsewhere, Pcp Primary Care Provider Unavailabl e Reason for Visit * Reason Comments Weakness - Generalized Hyperglycemia Encounter Details Date Type Department Care Team (Late st Contact Info) Description 10/26/2023 10:48 PM CDT - 10/26/2023 11:59 PM CDT Emergency [facility] [address] [place] [phone] Hyperglycemia (Primary Dx) Discharge Disposition: Home or [...] bandage 12 10/03/2017 FreeStyle João 14 Day [place] misc 02/17/2021 FreeStyle João 14 Day Sensor [...] Primary documented in this encounter Care Teams Atmospheric Chemist Relationship Specialty Start Date End Date Elsewhere, Pcp PCP - General Family Medicine 06/15/17 documented as of this encounter
--- OUTSIDE RECORDS SUMMARY | 2024-01-13 07:48 | XMS_ITS | Referral Summary ---
Author Organization [facility] Address [address] [place] [address] Care Team Providers Care Optical Advisor Name Role Phone Elsewhere, Pcp Primary Care Provider Unavailabl e Source Comments Patient records contain information from all sites at [facility]. For routine questions regarding patient records, call [phone] during business hours, M-F 8:00 AM - 5:00 PM Central Time. Record requests for emergency care only can be directed to [phone] at any time.[facility] Encounters Date Type Department Care Team Description 10/26/2023 10:48 PM CDT - 10/26/2023 11:59 PM CDT Emergency [facility] [address] [place] [address] Hyperglycemia (Primary Dx) Discharge Disposition: Home or Self Care from Last 3 Months Allergies Active Allergy Reactions Criticality Noted Date Comments Dimethicone-Petrolatum Rash 02/01/2014 Horse [place] Rash 07/16/2016 Silver Sulfate-Foam Bandage Rash 02/02/20 [...] mouth. 11/07/2019 Active FreeStyle João 14 Day [place] misc 02/17/2021 Active FreeStyle João 14 Day [...] Comments Blood Pressure 160/85 04/17/2021 1:03 PM DIRECTOR OF FIRST IMPRESSIONS Pulse 74 04/17/2021 1:03 PM DIRECTOR OF FIRST IMPRESSIONS Temperature 36.4 ??C (97.5 ??F) 04/17/2021 1:03 PM CS T Respiratory Rate 14 02/15/2021 1:17 PM DIRECTOR OF FIRST IMPRESSIONS Oxygen Saturation 95% 02/15/2021 1:17 PM DIRECTOR OF FIRST IMPRESSIONS Inhaled Oxygen Concentration - - Weight 138 kg (304 lb 3.8 oz) 04/17/2021 1:03 PM DIRECTOR OF FIRST IMPRESSIONS Height 178 cm (5' 10.08) 04/17/2021 1:03 PM DIRECTOR OF FIRST IMPRESSIONS Body Mass Index 43.55 04/17/2021 1:03 PM DIRECTOR OF FIRST IMPRESSIONS Plan of Treatment Not on file Procedures [...] Recently Relevant to Health Maintenance Care Teams Optical Advisor Relationship Specialty Start Date End Date Elsewhere, Pcp PCP - General Family Medicine 06/15/17
--- OUTSIDE RECORDS SUMMARY | 2024-01-13 07:48 | XMS_ITS ---
Author Organization [facility] Address [address] [place] [address] Care Team Providers Care Food Processing Scientist Name Role Phone Unavailable Unavailable Unavailable Surgery Details Not on file Complications Check Surgery Details section. Procedure Estimated Blood Loss Check Surgery Details section. Procedure Findings Check Surgery Details section. Procedure Specimens Taken Check Surgery Details section.
== END 2024-01-13 07:45 | disposition home or self-care (01) ==
LOC: WOUND 07:44
PROVIDERS: PCP Family Medicine; Visit Provider Nurse Practitioner Family
DX: I87.312 Chronic venous hypertension (idiopathic) with ulcer of left lower extremity (principal); I87.2 Venous insufficiency (chronic) (peripheral); E11.622 Type 2 diabetes mellitus with other skin ulcer; L97.322 Non-pressure chronic ulcer of left ankle with fat layer exposed; I89.0 Lymphedema, not elsewhere classified
CPT/HCPCS: 15271; Q4101

== ENCOUNTER 2024-01-20 07:53 | Outpatient (CLI) | payer OTHER, SELFPAY ==
--- OUTSIDE RECORDS SUMMARY | 2024-01-20 07:55 | XMS_ITS | Data Portability ---
Author Organization [facility] Address [address] [place] [address] Care Team Providers Care Full Decator Operator Name Role Phone GORDY SOL Primary Care Provider Assessment Encounter Date Assessment Date Assessment LastModified by Organization Details LastModified Time 11/21/2019 11/21/2019 59M with [id number] [place] 3+4=7 prostate cancer s/p RALP. Discussed pathology, risk of recurrence, need for ongoing PSA monitoring. Small anastomotic leak, will cont Choi x 1 more week. Worsened LE edema, likely chronic, but will check LE u/s to be sure no DVT. [email or web address] Not available 11/21/2019 14:07:03 01/02/2020 01/02/2020 59M with [id number] [place] 3+4=7 prostate cancer s/p RALP. 1) Prostate cancer - f/u 4 months with PSA 2) EVETTE, moderate - cont Kegels - consider PFPT 3) ED - Cialis PRN [email or web address] Not available 01/02/2020 09:34:03 05/01/2020 05/01/2020 60M with [id number] [place] 3+4=7 prostate cancer s/p RALP 6 months ago. MICHAEL. 1) Prostate cancer - f/u 6 months with PSA 2) EVETTE, moderate - cont Kegels - consider PFPT 3) ED - Cialis PRN [email or web address] Not available 05/01/2020 10:47:29 10/24/2020 10/24/2020 60M with [id number] [place] 3+4=7 prostate cancer s/p RALP 1 [...] floor therap y referr al 2020 021 [facility], [address], [place], [address], 09:57:49 Procedures None record ed. Surgeries None record ed. Imaging None record ed. Medication Orders None record ed. Patient TargetsNo targets recorded. Patient Instructions Encounter Date Encounter Id Patient Instructions Last Modified By Organization Details Last Modified Time 11/28/2019 [id number] To follow up sumaya Doshi at his [...] Not Available [facility] [address], [place], [address], 05/01/2020 10:40:29 02/11/2020 lab* PSA <0.04 normal Not Available No t Available 01/07/2020 12:33:24 01/02/2020 PSA, serum or plasm a PSA, Total <0.04 ng/Ml Not Available [facility] [address], [place], [address], 01/02/2020 09:14:10 10/25/19 21 10/24/2020 PSA, serum or plasm a PSA, Total <0.04n g/mL Not Available [facility] [address], [place], [address], 10/24/2020 10:45:30 11/23/19 20 11/21/2019 CT, pelvi s, w/o contr ast No observ ation record ed. [email or web address] Not Available 17:13:18 Result Notes None recorded. Problems Name Problem SNOMED Code Status Onset Date Resolution Date Notes Provider Name and Address Organization Details Recorded Time Carcinoma of prostate 536976606 Active 2019 Caroline kruger [facility] 0 10:59:25 Male urinary stress incontinence 278575771 Active 2020 Momo mcfarlane MD, PHD [address] [place] [address],[address] [place] [address], [phone], [facility] 10:47:38 Primary erectile dysfunction 534132589 Active 2020 Momo mcfarlane MD, PHD [address] [place] [address],[address] [place] [address], [phone], [facility] 10:47:58 Problem Notes None recorded. Procedures Surgical History Date Name Laterality Status Provider Name and Address Organization Details Recorded Time 10/25/19 21 Blood Draw/INTRUSION ANALYST/PSA RESULTS completed Momo baez MD, PHD [address] [place] [address],[address], [place], [address], [facility] 10/24/2020 10:45:26 05/01/19 21 Blood Draw/INTRUSION ANALYST/PSA RESULTS completed Momo baez MD, PHD [address] [place] [address],[address], [address], [facility] 05/01/2020 10:40:25 01/02/20 20 Blood Draw/INTRUSION ANALYST/PSA RESULTS completed Janice Ayala [facility] 01/02/2020 09:14:04 11/28/19 20 Choi Catheter Removal completed Caroline Smith [facility] 02/04/2020 12:00:10 Prostatectomy completed Momo baez MD, PHD [address] [place] [address],[address], [address], [facility] 10/24/2020 10:44:48 colonoscopy completed Monica Awan [facility] 12/09/2020 10:47:07 Imaging Results Imaging [...] Name and Address Organization Details Recorded Time [id number] silver medicatio n Not available Not available Not available 11/21/2019 [id number] RxNorm Caroline Rojasyoandy kruger [facility] 0 11:09:54 [id number] adhesive tape environme nt,medica tion Not available Not available Not available 11/21/2019 Caroline Bobyoandy kruger [facility] 0 11:10:01 Medications Name Sig [...] Updated DateTime 01/02/2020 180.34 cm 39.3 kg/m2 792335.05 g Caroline Luis [facility] 01/02/2020 09:09:40 Date Recorded Body height Body mass index (BMI) Body weight Provider Name and Address Organization Details Last Updated DateTime 05/01/2020 180.34 cm 39.3 kg/m2 416465.05 g Momo baez MD, PHD [address] [place], [place] [address] [place] [address] 05/01/2020 10:39:59 Date Recorded Body height Body mass index (BMI) Body weight Provider Name and Address Organization Details Last Updated DateTime 10/24/2020 180.34 cm 39.7 kg/m2 611040.83 g Momo baez MD, PHD [address] [place] [address] 10/24/2020 10:44:13 Date Recorded Body height Body mass index (BMI) Body weight Provider Name and Address Organization Details Last Updated DateTime 11/21/2019 180.34 cm 39.3 kg/m2 109552.05 g Caroline Smith [facility] 11/21/2019 11:09:04 Social History Question Answer Notes LastModified by Organizat ion Details LastModified Time Tobacco Smoking Status Never Smoker Caroline kruger [facility] 11/21/2019 11:10:15 What Is Your Level [...] available 11/20 11:10:09 Medical History Condition Response Cancer Y Diabetes Y Past Encounters Encounter ID Performer Location Encounter Start Date Encounter Closed Date Diagnosis/Indication Diagnosis SNOMED-CT Code Diagnosis ICD10 Code [id number] Momo beard MD, PHD [facility] [address] [place] [address] 11/21/2019 10:45:55 11/21/2019 15:00:28 Malignant tumor of prostate 282241449 C61 [id number] Caroline G[facility]iting [facility] [employer] [facility] [address] [place] [address] 11/28/2019 09:57:13 02/06/2020 03:54:17 [id number] Momo beard MD, PHD [facility] [employer] [facility] [address] [place] [address] 01/02/2020 08:46:59 01/02/2020 14:22:16 Malignant tumor of prostate 465083884 C61 [id number] Momo beard MD, PHD [facility] [employer] [facility] [address] [place] [address] 05/01/2020 09:26:51 05/01/2020 12:03:29 Malignant tumor of prostate 824659772 C61 Primary er ectile dysfunction 361579002 N52.9 [id number] Momo beard MD, PHD [facility] [employer] [facility] [address] [place] [address] 10/24/2020 10:28:04 10/27/2020 16:45:05 Carcinoma of prostate 883512062 C61 Malignant tumor of prostate 734802144 C61 Primary er ectile dysfunction 744603375 N52.9 Male urina ry stress incontinence 737023215 N39.3 Health Concerns Section Related Observation LastModified by Organization Detai ls LastModified Time None Recorded Concern Status LastModified by Organization Details LastModified Time None Recorded Advance Directives Directive None Recorded Payers Encounter Date Sequence Insurance Name Policy Number Policy Archibald Covered Member ID Archibald Member ID Guarantor Name 11/21/2019 1 [facility] [id number] Julien Gonsalvesretmaynor [id number] Julien Ridley 11/28/2019 1 [facility] [id number] Julien Gonsalvesretson [id number] Julien Ridley 01/02/2020 1 [facility] [id number] Julien Gonsalvesretson [id number] Julien Ridley 05/01/2020 1 [facility] [id number] Julien Gonsalvesretson [id number] Julien Ridley 10/24/2020 1 [facility] [id number] Julien Gonsalvesretson [id number] Julien Ridley Notes Date Note Type Note Provider Name and Address Organization Details Recorded Time 11/21/2019 text/html HPI Notes: 59M s /p RALP 11/06/19 for [id number] [place] 3+4=7 prostate cancer (0/12 LN, -SMS) Overall doing well. Some drainage umbilical incision. Chronic LE edema worse especially R>L. Some hematuria when having BMs. No fever. Eating ok. Minimal pain. CT Cystogram today: small anastomotic leak PSA (07/27/19): 6.5 CONSTANZA: cT1c, 35g (J Carlos) MRI: none Biopsy (08/30/19): 23g, 3/12 cores (LLM, LMB, LMM [place] 3+4=7 up to 40%) Pre-op ED: 05/09 Momo Holliday MD, PHD [address] [facility] [address], [place], [address], [facility] 11/21/2019 14:07:42 01/02/2020 text/html HPI Notes: 59M with [id number] [place] 3+4=7 prostate cancer (0/12 LN, -SMS) s/p RALP 11/06/19. Small anastomotic leak, catheter removed 11/28/19. Overall doing well. C/o some leakage with BMs and position changes. Uses multiple depends per day...... LE u/s to eval for dvt last visit was negative PSA Results 07/27/19: 6.5 01/02/20: <0.04 UF: 4/5 EF: 5/5 Pre-op EF: 2/5 Momo Holliday MD, PHD [address] [place] [address],[address], [address], [facility] 01/02/2020 09:35:54 05/01/2020 text/html HPI Notes: 60M with [id number] [place] 3+4=7 prostate cancer (0/12 LN, -SMS) s/p RALP 11/06/19. Small anastomotic leak, catheter removed 11/28/19. Overall doing well. C/o some leakage with BMs and position changes. Uses 4ppd which is improvement. No problems with incisions. PSA Results 07/27/19: 6.5 01/02/20: <0.04 05/01/20: <0.04 UF: 3/5 EF: 5/5 Pre-op EF: 2/5 Momo Holliday MD, PHD [address] [place] [address], [phone], [facility] 05/01/2020 10:48:15 10/24/2020 text/html HPI Notes: 60M with [id number] [place] 3+4=7 prostate cancer (0/12 LN, -SMS) s/p RALP 11/06/19 Overall doing well. C/o some leakage with BMs and position changes and sexual activity. Uses 4ppd still. No problems with incisions. PSA Results 07/27/19: 6.5 01/02/20: <0.04 05/01/20: <0.04 10/24/20: <0.04 UF: 3/5 EF: 5/5 Pre-op EF: 2/5 Momo Holliday MD, PHD [address] [place] [address],[place] [address], [place], [address], [facility] 10/24/2020 11:30:55
--- OUTSIDE RECORDS SUMMARY | 2024-01-20 07:55 | XMS_ITS | Clinical Summary ---
Author Organization [facility] Address [address] [place] [address] Care Team Providers Care Impregnator [employer] Name Role Phone Munir Sahu MD Primary [...] Advance Directives For more information, please contact: [phone] * Full Code (Latest Code Status on File) Date Activated Date Inactivated Comments 11/06/2019 2:19 PM 11/07/2019 9:06 PM All basic and advanced life-sustaining interventions are performed as appropriate Question Answer Comments Code status determined by: Unable to det ermine; FULL CODE until documents or legal decision maker available Care Teams [employer]ator [employer] Relationship Specialty Start Date End Date Munir Sahu MD PCP - General Family Practice 10/22/19
--- OUTSIDE RECORDS SUMMARY | 2024-01-20 07:56 | XMS_ITS | Clinical Summary ---
Author Organization [employer] [facility] Address [place], [place] [address] Care Team Providers Care Emergency Doctor Name Role Phone Munir Sahu MD Primary Care Provider + [facility], [facility] [phone] Allergies Active Allergy Reactions Criticality Noted Date [...] by insurance) 9 mL 09/28/2023 Active Insulin [place], Disposable, (Susana Pen Needle) 32 gauge x [...] Diagnosed Date Coronary artery disease invo lving nome coronary artery without angina pectoris 10/28/2023 Overview [...] Encounters Date Type Department Care Team Description 01/19/2024 7:00 AM CDT - 01/19/2024 11:59 PM CDT Hospital Encounter [facility] [address] [place] [address] 01/19/2024 Travel 01/18/2024 6:57 AM CDT - 01/18/2024 11:59 PM CDT Hospital Encounter [facility] [address] [place] [address] 01/18/2024 Travel 01/16/2024 7:00 AM CDT - 01/16/2024 11:59 PM CDT Hospital Encounter [facility] [address] [place] [address] 01/16/2024 Travel 01/12/2024 6:58 AM CDT - 01/12/2024 11:59 PM CDT Hospital Encounter [facility] [address] [place] [address] 01/12/2024 Travel 01/11/2024 6:56 AM CDT - 01/11/2024 11:59 PM CDT Hospital Encounter [facility] [address] [place] [address] 01/11/2024 Travel 01/05/2024 6:56 AM CDT - 01/05/2024 11:59 PM CDT Hospital Encounter [facility] [address] [place] [address] 01/05/2024 Travel 01/04/2024 6:56 AM CDT - 01/04/2024 11:59 PM CDT Hospital Encounter [facility] [address] [place] [address] 01/04/2024 Travel 01/02/2024 7:00 AM CDT - 01/02/2024 11:59 PM CDT Hospital Encounter [facility] [address] [place] [address] 01/02/2024 Travel 12/22/2023 6:51 AM CDT - 12/22/2023 11:59 PM CDT Hospital Encounter [facility] [address] [place] [address] 12/22/2023 Travel 12/21/2023 6:51 AM CDT - 12/21/2023 11:59 PM CDT Hospital Encounter [facility] [address] [place] [address] 12/21/2023 Travel 12/19/2023 9:30 AM CDT Orders Only [facility] [address] [place] [address] 2 scans: (2-Ord) US VENOUS INSUFFICIENCY LOWER EXTREMITY BILATERAL ([id number]) 12/19/2023 7:30 AM CDT - 12/19/2023 11:59 PM CDT Hospital Encounter [facility] [address] [place] [address] 12/19/2023 Travel 12/15/2023 6:57 AM CDT - 12/15/2023 11:59 PM CDT Hospital Encounter [facility] [address] [place] [address] 12/15/2023 Travel 12/14/2023 6:54 AM CDT - 12/14/2023 11:59 PM CDT Hospital Encounter [facility] [address] [place] [address] 12/14/2023 Travel 12/13/2023 1:30 PM CDT Office Visit [facility] [address] [place] [address] Kamran Li MD Follow Up (Dr. Li [...] - 12/13/2023 11:59 PM CDT Hospital Encounter [facility] [address], [address] [place] [address] Kamran Li MD CAD, multiple vessel; S/p 3V CABG (SHER-LAD, LISA-ramus, radial-OM), 09/23/2023 12/13/2023 Travel 12/12/2023 7:00 AM CDT - 12/12/2023 11:59 PM CDT Hospital Encounter [facility] [address] [place] [address] 12/12/2023 Telephone [facility] [address] [place] [address] Gina Jaime Cardiovascular Diagnostic Testing (lvm to confirm 12/13/23 stress test appt) 12/12/2023 Travel 12/08/2023 6:56 AM CDT - 12/08/2023 11:59 PM CDT Hospital Encounter [facility] [address] [place] [address] 12/08/2023 Travel 12/07/2023 6:52 AM CDT - 12/07/2023 11:59 PM CDT Hospital Encounter [facility] [address] [place] [address] 12/07/2023 Travel 12/01/2023 6:55 AM CDT - 12/01/2023 11:59 PM CDT Hospital Encounter [facility] [address] [place] [address] 12/01/2023 Travel 11/30/2023 6:55 AM CDT - 11/30/2023 11:59 PM CDT Hospital Encounter [facility] [address] [place] [address] 11/30/2023 Travel 11/29/2023 9:09 AM CDT - 11/29/2023 11:59 PM CDT Hospital Encounter [facility] [address] [place] [address] Alejandra Lau PA S/p 3V CABG (SHER-LAD, LISA-ramus, radial-OM), 09/23/2023 11/29/2023 Travel 11/28/2023 7:30 AM CDT Home Care Visit [facility] [address] [place] [phone] Elvira Reyes RN SN - OASIS DISCHARGE 11/22/2023 10:45 AM CDT Home Care Visit [facility] [address] [place] [phone] Tyson Mejias, PT PT - DISCIPLINE DISCHARGE 11/21/2023 10:00 AM CDT Home Care Visit [address] [phone] Irma Hollins RN SN - HOME VISIT 11/17/2023 7:30 AM CDT Home Care Visit [place] [address] [place] [phone] Tyson Mejias, PT PT - HOME VISIT 11/15/2023 8:30 AM CDT Home Care Visit [address] [phone] Tyson Mejias, PT PT - HOME VISIT 11/14/2023 8:30 AM CDT Home Care Visit [address] [phone] Elvira Reyes RN SN - HOME VISIT 11/14/2023 3:30 AM CDT Home Care Visit [address] [address] Ailyn Varghese RN SN - WOUND/OSTOMY CHART CONSULT 11/11/2023 Telephone [facility] [address] [place] [address] Anibal Quigley MD Referral 11/10/2023 8:00 AM CDT Home Care Visit [address] [place] [address] Tyson Mejias, PT PT - HOME VISIT 11/09/2023 10:00 AM CDT Home Care Visit [facility] [address] [place] [phone] Isa Cintron, CHITRA SN - HOME VISIT 11/09/2023 Orders Only [facility] [address] [place] [address] Antoinette Lopez PA <No scans attached> 11/08/2023 Home Care Visit [facility] [address] [place] [phone] Tyson Mejias, PT CARE COORDINATION 11/07/2023 8:15 AM CDT Home Care Visit [facility] [address] [place] [phone] Tyson Mejias, PT PT - INITIAL ASSESSMENT 11/07/2023 7:30 AM CDT Home Care Visit [facility] [address] [place] [phone] Lexi Esteves RN SN - HOME VISIT 11/04/2023 Home Care Visit [facility] [address] [place] [phone] Elvira Reyes RN CARE COORDINATION 11/04/2023 [facility] [address] [address] Gregorio Olivia MD Medication Management (amlodipine) 11/02/2023 8:30 AM CDT Home Care Visit [facility] [address] [place] [phone] Nohemy Anna LPN FANCY PACKER - HOME VISIT 10/31/2023 3:00 PM CDT Home Care Visit [facility] [address] [place] [phone] Evie Young, CHITRA SN - HOME VISIT 10/31/2023 Procedure Only [facility] [address] [place] [address] Device Check (Remote Leadless Pacemaker Ca... 10/28/2023 5:20 AM CDT - 10/28/2023 1:20 PM CDT Hospital Encounter [facility] [address] [address] Kamran Li MD Essential hypertension (Primary Dx); CAD, multiple vessel; S/p 3V CABG (SHER-LAD, LISA-ramus, radial-OM), 09/23/2023 Discharge Disposition: Home Self Care 10/28/2023 Home Care Visit [facility] [address] [place] [address] Elvira Reyes POWDER PRESS OPERATOR NOTE 10/28/2023 Travel 10/27/2023 8:30 AM CDT Home Care Visit [facility] [address] [place] [address] Elvira Reyes RN SN - HOME VISIT 10/26/2023 10:48 PM CDT - 10/27/2023 12:53 AM CDT [facility] [address] [place] [address] Misha Styles III, MD Insomnia, unspecified type (Primary Dx); Anxiety Discharge Disposition: Home Self Care 10/26/2023 Travel 10/24/2023 9:00 AM CDT Home Care Visit [facility] [address] [place] [address] Elvira Reyes RN SN - HOME VISIT 10/21/2023 Home Care Visit [facility] [address] [place] [address] Elvira Reyes RN CARE COORDINATION 10/21/2023 Telephone [facility] [address] [place] [address] Kary Aiken MD Pre Procedure 10/21/2023 Telephone [facility] [address] [place] [address] Jen Greenberg NP Results 10/20/2023 1:50 PM CDT Orders Only [facility] [address] [place] [address] Lab 10/20/2023 1:00 PM CDT Office Visit [facility] [address] [place] [address] Jen Greenberg NP Follow Up (3-4 weeks [...] palpitations at this time ) 10/20/2023 Travel from Last 3 Months Family History [...] Care Team (Late st Contact Info) Description 01/23/2024 7:00 AM CDT Appointment [facility] [address] [place] [address] 01/25/2024 7:00 AM CDT Appointment [facility] [address] [address] 01/30/2024 7:00 AM CDT Appointment [facility] [address] [address] 02/01/2024 7:00 AM CDT Appointment [facility] [address], [place] [address] 02/02/2024 7:00 AM CDT Appointment [facility] [address] [address] 02/06/2024 7:00 AM FUEL INJECTION SERVICER Appointment [facility] [address] [place] [address] 02/08/2024 7:00 AM FUEL INJECTION SERVICER Appointment [facility] [address], [place] [address] 02/09/2024 7:00 AM FUEL INJECTION SERVICER Appointment [facility] [address], [place] [address] 02/13/2024 7:00 AM FUEL INJECTION SERVICER Appointment [facility] [address] [place] [address] 02/15/2024 7:00 AM FUEL INJECTION SERVICER Appointment [facility] [address] [place] [address] 02/16/2024 7:00 AM FUEL INJECTION SERVICER Appointment [facility] [address] [facility] [place] [address] 02/20/2024 7:00 AM FUEL INJECTION SERVICER Appointment [facility] [address] [place] [address] 02/27/2024 Procedure Only [facility] [address] [place] [address] Health Maintenance Due Date Last [...] Priority Date/Time Associated Diagnosis Comments SCAN-CARDIAC REHABILITATION 01/19/2024 7:07 AM CDT SCAN-CARDIAC REHABILITATION 01/18/2024 7:01 AM CDT SCAN-CARDIAC REHABILITATION 01/16/2024 7:08 AM CDT GLUCOSE METER Routine 01/12/2024 7:52 AM CDT [...] to Health Maintenance Results * SCAN-CARDIAC REHABILITATION (01/19/2024 7:07 AM CDT) Only the most recent of20 resultswithin the time period is included. Scanner OTHER * (ABNORMAL) GLUCOSE METER (01/12/2024 7:52 AM CDT) Only the most recent of10 resultswithin the time period is included. GLUCOSE METER 154(H) 65 - 100 mg/dL 01/12/2024 7:57 AM CDT [facility] Blood BLOOD SPECIMEN / Unknown 01/12/2024 7:52 AM CDT 01/12/2024 7:57 AM CDT Doctor Unknown CHEMISTRY Performing Organization Address City/State/[facility] Co de Phone Number [facility] [address] [address] * US VENOUS INSUFFICIENCY LOWER EXTREMITY BILATERAL (12/19/2023 1:21 PM CDT) Anatomical Region Laterality Modality LEGS Ultrasound 12/19/2023 9:22 AM CDT Narrative 12/19/2023 5:10 PM CDT VASCULAR ULTRASOUND REPORT JOSE GUADALUPE RIDLEY Accession#: ?? [id number] : ?1960 ??Study Date: ?? 12/19/2023 9:22:18 AM Age: ?63 years ?? Tech: ? PMK Gender: M ?Referring MD: ANTOINETTE LOPEZ Site: [facility] Study performed: ?Duplex US venous insufficiency, [...] and distal calf. 5. Incompetent varicose and/or microstrategy architect developer veins as listed below. COMPARISON: No prior [...] Accreditation Commission (IAC/Vascular), www.intersocietal.org/vascular Report generated by [employer]. ??Final ?? Procedure Note Anderson Petesren MD - 12/19/2023 VASCULAR ULTRASOUND REPORT JOSE GUADALUPE RIDLEY : 1960 Study Date: 12/19/2023 9:22:18 AM Age: 63 years Tech: PMK Gender: M Referring MD: ANTOINETTE LOPEZ Site: [facility] Study performed: Duplex US venous insufficiency, [...] and distal calf. 5. Incompetent varicose and/or microstrategy architect developer veins as listed below. COMPARISON: No prior [...] theIntersocietal Accreditation Commission (IAC/Vascular),www.intersocietal.org/vascular Report generated by [employer]. Final Antoinette FAJARDO US * NM CARDIAC MPI STRESS TEST (12/13/2023 10:08 AM CDT) Anatomical Region Laterality Modality HEART Nuclear Medicine 12/13/2023 7:07 AM CDT Narrative 12/13/2023 12:48 PM CDT 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 Monitoring Provider: KARY AIKEN Weight: 280 lbs BMI: 39.2 kg/m?? Ordering Provider: KAMRAN LI Location: [facility] Indication: S/P CABG x 3; [...] / 60 % MPHR: 51 Double Product: [id number] Recovery HR(bpm): 71 Recovery BP(mmHg): 124 / [...] 0 Apical Lateral: 0 Apical Lateral: 0 Codorus: 0 Codorus: 0 Summed Stress Score: 2 Summed Rest [...] left ventricular wall motion. Anderson ??Lolis NOBLES [facility] Accredited Site (Electronically Signed) Final Date: 13 December 2023 12:48 ICD-10 Codes: Z95.1; I25.10 CC Providers: Dr. Munir Sahu Procedure Note Anderson Danielle MD - 12/13/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 Monitoring Provider:KARY AIKEN Weight: 280 lbs BMI: 39.2 kg/m?? Ordering Provider: KAMRAN LI Location: [facility] Indication: S/P CABG x 3; [...] 142 / 60 % MPHR: 51 Double Product:88197 Recovery HR(bpm): 71 Recovery BP(mmHg): 124 / [...] 0 Apical Lateral: 0 Apical Lateral: 0 Codorus: 0 Codorus: 0 Summed Stress Score: 2 Summed Rest [...] left ventricular wall motion. Anderson Danielle MD [facility] Accredited Site (Electronically Signed) Final Date: 13 [...] NOW QTc 472 ms BEYOND NOW P Standish 56 degrees BEYOND NOW R Standish 45 degrees BEYOND NOW T Standish 70 degrees BEYOND NOW 10/28/2023 10:3 3 AM CDT 10/28/2023 11:07 AM CDT Kamran Li MD EKG ORD BEYOND NOW [place], [place] * (ABNORMAL) ACTIVATED CLOTTING TIME [id number] ACT (10/28/2023 8:56 AM CDT) ACTIVATED CLOTTING TIME, POCT 304(H) 74 - 125 sec 10/28/2023 12:[address] [facility] Blood BLOOD SPECIMEN / Unknown 10/28/2023 8:56 AM CDT 10/28/2023 12:18 PM CDT Kamran Li MD HEMATOLOGY [facility] SENDOUT INTERNAL ZIP [address] [place] [address] * CVL PCI ONLY (10/28/2023 8:19 AM CDT) Anatomical Region Laterality Modality X-Ray Angiograph y 10/28/2023 8:19 AM CDT Narrative Transcriptions Kamran Li MD - 10/28/2023 9:33 AM CDT [facility] Cardiac Catheterization Report Name: JOSE GUADALUPE RIDLEY Event Date: 10/28/2023 08:19 [employer] ID #: [id number] JAKE #: [id number] Diagnostic Physician: KAMRAN LI [facility] Interventional Physician: KAMRAN LI [facility] Referring Physician: GREGORIO OLIVIA Date: 1960 [...] inhibit spasm of the radialgraft. Consent & Zachary Protocol The risks, benefits, and alternatives of the procedure were discussed withthe patient and written informed consent was obtained. Zachary protocol was followed. TIME OUT conducted just prior tostarting procedure confirmed patient identity, site/side, procedure,patient position, and availability of correct equipment and implants (ifapplicable). Staff Name Title KAMRAN LI Nautical Instrument Mechanic Rafaela Bailey RN Nurse Hung Oviedo RTR Machelle Adler RTR Monitor Jimmie Merino CVT Ethnic Origins Teacher Procedures ? US Guided Access ? Coronary [...] 1 Distal RCA Drug Eluting Stent Rosalio Menard 3.50 x 22mm Procedure Details Estimated Blood Loss: < 30 ml Specimen Collected: None Level of Sedation Achieved: Moderate Procedure Start: 08:19 Procedure End: 09:22 Procedure Time: 63 min Fluoroscopy Time: 16.2 min Cumulative Air Kerma: 1697 mGy DAP: 00862 mGy/cm2 Contrast: Omnipaque, 230 ml Physiologic Data [...] IV Kamran Li Kendra RN 08:39 Heparin 19193 units IV Kamran Li Kendra RN 08:44 [...] healthcare professional providing the sedation ends personal [id number]-it-lplo time with the patient. The medications listed above were verbally ordered by me and read back tome as documented above. Refer to the procedure log report for additional case details. electronically signed on 10/28/2023 9:33:27 AM with status of Final Kamran Li MD [address], [place] [address] [address] [place] [address] (p) [phone](f) Alejandra FAJARDO CV IMAGING * (ABNORMAL) CBC with Platelets no Differential (10/28/2023 6:35 AM CDT) Only the most recent of2 resultswithin the time period is included. WHITE BLOOD COUNT 5.9 4.5 - 11.0 thou/cu mm 10/28/2023 6:[address] [facility] RED BLOOD COUNT 4.27(L) 4.30 - 5.90 mil/cu mm 10/28/2023 6:[address] [facility] HEMOGLOBIN 12.6(L) 13.5 - 17.5 g/dL 10/28/2023 6:[address] [facility] HEMATOCRIT 38.9 37.0 - 53.0 % 10/28/2023 6:[address] [facility] MCV 91 80 - 100 fL 10/28/2023 6:[address] [facility] MCH 29.5 26.0 - 34.0 pg 10/28/2023 6:[address] [facility] MCHC 32.4 32.0 - 36.0 g/dL 10/28/2023 6:[address] [facility] RDW 14.6 11.5 - 15.5 % 10/28/2023 6:[address] [facility] PLATELET COUNT 193 140 - 440 thou/cu mm 10/28/2023 6:[address] [facility] MPV 9.6 6.5 - 11.0 fL 10/28/2023 6:[address] [facility] NRBC 0.0 % 10/28/2023 6:[address] [facility] ABS NRBC 0.0 thou /cu mm 10/28/2023 6:[address] [facility] Blood BLOOD SPECIMEN / Unknown Venipuncture / Unknown 10/28/2023 6:35 AM CDT 10/28/2023 6:45 AM CDT Gregorio Elizabeth MD HEMATOLOGY [facility] SENDOUT INTERNAL ZIP [address] [place] [address] * (ABNORMAL) Basic Metabolic Panel (10/28/2023 6:35 AM CDT) Only the most recent of3 resultswithin the time period is included. SODIUM 139 136 - 145 mmol/L 10/28/2023 7:[address] [facility] POTASSIUM 3.8 3.5 - 5.1 mmol/L 10/28/2023 7:[address] [facility] CHLORIDE 102 98 - 107 mmol/L 10/28/2023 7:[address] [facility] CO2,TOTAL 25 22 - 29 mmol/L 10/28/2023 7:[address] [facility] ANION GAP 12 5 - 18 10/28/2023 7:[address] [facility] GLUCOSE 158(H) 70 - 99 mg/dL 10/28/2023 7:[address] [facility] CALCIUM 9.4 8.8 - 10.2 mg/dL 10/28/2023 7:[address] [facility] BUN 19 8 - 23 mg/dL 10/28/2023 7:[address] [facility] CREATININE 0.97 0.70 - 1.20 mg/dL 10/28/2023 7:[address] [facility] BUN/CREAT RATIO 20 10 - 20 7:[address] [facility] eGFR 88(L) >90 mL/min/1.7 3m2 10/28/2023 7:[address] [facility] Comment:As of 2021, [...] AM CDT Gregorio Elizabeth MD CHEMISTRY [facility] SENDOUT INTERNAL ZIP [address] [place] [address] * URINALYSIS MICROSCOPIC (10/26/2023 11:46 PM CDT) RBC None Seen 0-2, None Seen /HPF 10/26/2023 11:55 PM [facility] WBC 0-2 0-2, 3-5, None Seen /HPF 10/26/2023 11:55 PM [facility] BACTERIA Rare None Seen, Rare, Few Bacteria/H PF 10/26/2023 11:55 PM [facility] EPITHELIAL CELLS Few None Seen, Few Epi/HPF 10/26/2023 11:55 PM [facility] Urine URINE SPECIMEN / Unknown Non-Blood / Unknown 10/26/2023 11:46 PM CDT 10/26/2023 11:49 PM CDT Misha Styles III, MD URINE Performing Organization Address City/[facility]/ZIP Co de Phone Number [facility] [address] [address] * (ABNORMAL) Urinalysis w Reflex Microscopic if Positive (10/26/2023 11:46 PM CDT) COLOR Yellow Yellow Color 10/26/2023 11:52 PM [facility] CLARITY Clear Clear Clarity 10/26/2023 11:52 PM [facility] SPECIFIC GRAVITY,URINE 1.020 1.010, 1.015, 1.020, 1.025 10/26/2023 11:52 PM [facility] PH,URINE 6.0 6.0, 7.0, 8.0, 5.5, 6.5, 7.5, 8.5 10/26/2023 11:52 PM [facility] UROBILINOGEN, QUALITATIVE Normal Normal EU/dl 10/26/2023 11:52 PM [facility] PROTEIN, URINE Negative Negative mg/dL 10/26/2023 11:52 PM [facility] GLUCOSE, URINE >=1000(A) Negative mg/dL 10/26/2023 11:52 PM [facility] KETONES,URINE Negative Negative mg/dL 10/26/2023 11:52 PM [facility] BILIRUBIN,URI NE Negative Negative 10/26/2023 11:52 PM [facility] OCCULT BLOOD,URINE Negative Negative 10/26/2023 11:52 PM [facility] NITRITE Negative Negative 10/26/2023 11:52 PM [facility] LEUKOCYTE ESTERASE Negative Negative 10/26/2023 11:52 PM [facility] Urine URINE SPECIMEN / Unknown Non-Blood / Unknown 10/26/2023 11:46 PM CDT 10/26/2023 11:49 PM T Misha Styles III, MD URINE Performing Organization Address City/[facility]/ZIP Co de Phone Number [facility] [address] [place] [address] * (ABNORMAL) CBC WITH AUTO DIFFERENTIAL (10/26/2023 11:29 PM [facility]) WHITE BLOOD COUNT 6.5 4.5 - 11.0 thou/cu mm 10/26/2023 11:40 PM [facility] RED BLOOD COUNT 4.13(L) 4.30 - 5.90 mil/cu mm 10/26/2023 11:40 PM [facility] HEMOGLOBIN 12.3(L) 13.5 - 17.5 g/dL 10/26/2023 11:40 PM [facility] HEMATOCRIT 39.2 37.0 - 53.0 % 10/26/2023 11:40 PM [facility] MCV 95 80 - 100 fL 10/26/2023 11:40 PM [facility] MCH 29.8 26.0 - 34.0 pg 10/26/2023 11:40 PM [facility] MCHC 31.4(L) 32.0 - 36.0 g/dL 10/26/2023 11:40 PM [facility] RDW 14.7 11.5 - 15.5 % 10/26/2023 11:40 PM [facility] PLATELET COUNT 179 140 - 440 thou/cu mm 10/26/2023 11:40 PM [facility] MPV 9.4 6.5 - 11.0 fL 10/26/2023 11:40 PM [facility] % NEUT 64.9 % 10/26/2023 11:40 PM [facility] % LYMPH 14.5 % 10/26/2023 11:40 PM [facility] % MONO 8.6 % 10/26/2023 11:40 PM [facility] % EOS 11.7 % 10/26/2023 11:40 PM [facility] % BASO 0.3 % 10/26/2023 11:40 PM [facility] ABSOLUTE NEUTROPHILS 4.2 1.7 - 7.0 thou/cu mm 10/26/2023 11:40 PM [facility] ABSOLUTE LYMPHOCYTES 0.9 0.9 - 2.9 thou/cu mm 10/26/2023 11:40 PM T [facility] ABSOLUTE MONOCYTES 0.6 <0.9 thou/cu mm 10/26/2023 11:40 PM [facility] ABSOLUTE EOSINOPHILS 0.8(H) <0.5 thou/cu mm 10/26/2023 11:40 PM T [facility] ABSOLUTE BASOPHILS 0.0 <0.3 thou/cu mm 10/26/2023 11:40 PM T [facility] Blood BLOOD SPECIMEN / Unknown Venipuncture / Unknown 10/26/2023 11:29 PM CDT 10/26/2023 11:31 PM CDT Misha Styles III, MD [facility] [address] [address] * LIPID PANEL (09/18/2023 4:17 AM T) [facility] CHOLESTEROL,TOTAL 174 100 - 199 mg/dL 09/18/2023 4:[address] [facility] Comment: Cholesterol, Total Reference Ranges Desirable <200 mg/dL Borderline 200-239 mg/dL High >=240 mg/dL TRIGLYCERIDES 105 <150 mg/dL 09/18/2023 4:[address] [facility] HDL CHOLESTEROL 42 >40 mg/dL 4:[address] [facility] NON-HDL CHOLESTEROL 132 <145 mg/dl 09/18/2023 4:[address] [facility] CHOL/HDL RATIO 4.14 <4.50 09/18/2023 4:[address] [facility] LDL CHOLESTEROL 111 <=130 mg/dL 09/18/2023 4:[address] [facility] VLDL CHOLESTEROL 21 <=30 mg/dL 09/18/2023 4:[address] [facility] PROVIDER ORDERED STATUS RANDOM 09/18/2023 4:[address] [facility] Blood BLOOD SPECIMEN / Unknown Venipuncture / Unknown 09/18/2023 4:17 AM CDT 09/18/2023 4:27 AM CDT Wendy Lomeli DO [facility] [place] [id number] [address] [place] [address] from Last 3 Months or Most Recently [...] Code Status Discussion: Not Discussed Care Teams Emergency Doctor Relationship Specialty Start Date End Date Munir Sahu MD [address] [place] [address] PCP - General Family Practice 09/17/23 [facility] [address] [place] [address] 09/28/23
--- OUTSIDE RECORDS SUMMARY | 2024-01-20 07:56 | XMS_ITS | Clinical Summary ---
Author Organization [facility] Address [address] [place] [address] Care Team Providers Care Cooperative Education Coordinator Name Role Phone Elsewhere, Pcp Primary Care Provider Unavailabl e Source Comments Patient records contain information from all sites at [facility]. For routine questions regarding patient records, call [phone] during business hours, M-F 8:00 AM - 5:00 PM Central Time. Record requests for emergency care only can be directed to [phone] at any time.[facility] Allergies Active Allergy Reactions Criticality Noted Date Comments Dimethicone-Petrolatum Rash 02/01/2014 Horse [place] Rash 07/16/2016 Silver Sulfate-Foam Bandage Rash 02/02/20 14 Silver Rash,Other (see comments) 02/08/2014 Medications blood-glucose meter kit Use to test blood glucose 4 times daily. 8 Active metFORMIN XR (GLUCOPHAGE-XR) 500 mg 24 hr tablet Take 1,000 mg by mouth. 8 Active torsemide (DEMADEX) 5 mg tablet 10 mg. 8 Active zinc oxide 20 % ointment 12 8 Active elastic bandage bandage 12 8 Active acetaminophen (TYLENOL) 325 mg tablet Take 975 mg by mouth. 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 Gender Identity Not on file Sexual Orientation Not on file Last Filed Vital Signs Vital Sign Reading Time Taken Comments Blood Pressure 160/85 04/17/2021 1:03 PM PHOTOGRAPHER MOTION PICTURE Pulse 74 04/17/2021 1:03 PM PHOTOGRAPHER MOTION PICTURE Temperature 36.4 ??C (97.5 ??F) 04/17/2021 1:03 PM CS T Respiratory Rate 14 02/15/2021 1:17 PM PHOTOGRAPHER MOTION PICTURE Oxygen Saturation 95% 02/15/2021 1:17 PM PHOTOGRAPHER MOTION PICTURE Inhaled Oxygen Concentration - - Weight 138 kg (304 lb 3.8 oz) 04/17/2021 1:03 PM PHOTOGRAPHER MOTION PICTURE Height 178 cm (5' 10.08) 04/17/2021 1:03 PM PHOTOGRAPHER MOTION PICTURE Body Mass Index 43.55 04/17/2021 1:03 PM PHOTOGRAPHER MOTION PICTURE Plan of Treatment Health Maintenance Due Date [...] A1C POWERCHART Blood 01/08/2014 2:53 PM CDT us Curtis Avery M.D. LAB BLOOD ADD-ON Final Result Performing Organization Address City/[facility] de Phone Number POWERCHART * (ABNORMAL) Lipid Panel (01/08/2014 10:16 AM CDT) Calculated LDL 101(H) 0 - 100 MGDL POWERCHART Total Cholesterol/HDL Ratio 4.81(H) 2.20 - 4.40 POWERCHART Cholesterol, Total 178 <=200 MGDL POWERCHART HX HDL 37(L) 40 - 60 MGDL POWERCHART Triglycerides 201(H) <=150 MGDL POWERCHART HXLDL/HDL 3 POWERCHART Blood 01/08/2014 10:1 6 AM CDT us Curtis Avery M.D. LAB BLOOD ADD-ON Final Result Performing Organization Address [facility] de Phone Number POWERCHART from Last 3 Months or Most Recently Relevant to Health Maintenance Insurance [facility] [place] [id number] Care Teams Cooperative Education Coordinator Relationship Specialty Start Date End Date Elsewhere, Pcp PCP - General Family Medicine 06/15/17
--- OUTSIDE RECORDS SUMMARY | 2024-01-20 07:56 | XMS_ITS | Referral Summary ---
Author Organization [facility] Address [address] [place] [address] Care Team Providers Care Customer Development Manager Name Role Phone Munir Sahu MD [...] Advance Directives For more information, please contact: [phone] * Full Code (Latest Code Status on File) Date Activated Date Inactivated Comments 11/06/2019 2:19 PM 11/07/2019 9:06 PM All basic and advanced life-sustaining interventions are performed as appropriate Question Answer Comments Code status determined by: Unable to det ermine; FULL CODE until documents or legal decision maker available Care Teams Customer Development Manager Relationship Specialty Start Date End Date Munir Sahu MD PCP - General Family Practice 10/22/19
--- OUTSIDE RECORDS SUMMARY | 2024-01-20 07:57 | XMS_ITS | Referral Summary ---
Author Organization [facility] Address [address] [place] [address] Care Team Providers Care Information Receptionist Name Role Phone Elsewhere, Pcp Primary Care Provider Unavailabl e Source Comments Patient records contain information from all sites at [facility]. For routine questions regarding patient records, call [phone] during business hours, M-F 8:00 AM - 5:00 PM Central Time. Record requests for emergency care only can be directed to [phone] at any time.[facility] Encounters Date Type Department Care Team Description 10/26/2023 10:48 PM CDT - 10/26/2023 11:59 PM CDT Emergency [facility] [address] [place] [id number] Hyperglycemia (Primary Dx) Discharge Disposition: Home or Self Care from Last 3 Months Allergies Active Allergy Reactions Criticality Noted Date Comments Dimethicone-Petrolatum Rash 02/01/2014 Horse [place] Rash 07/16/2016 Silver Sulfate-Foam Bandage Rash 02/02/20 [...] mouth. 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 Gender Identity Not on file Sexual Orientation Not on file Last Filed Vital Signs Vital Sign Reading Time Taken Comments Blood Pressure 160/85 04/17/2021 1:03 PM INSTRUCTOR WASTEWATER [employer]REATMENT PLANT Pulse 74 04/17/2021 1:03 PM INSTRUCTOR WASTEWATER [employer]ATMENT PLANT Temperature 36.4 ??C (97.5 ??F) 04/17/2021 1:03 PM CS T Respiratory Rate 14 02/15/2021 1:17 PM INSTRUCTOR WASTEWATER [employer]ATMENT PLANT Oxygen Saturation 95% 02/15/2021 1:17 PM INSTRUCTOR WASTEWATER [employer]REATMENT PLANT Inhaled Oxygen Concentration - - Weight 138 kg (304 lb 3.8 oz) 04/17/2021 1:03 PM INSTRUCTOR WASTEWATER [employer]REATMENT PLANT Height 178 cm (5' 10.08) 04/17/2021 1:03 PM INSTRUCTOR WASTEWATER TREATMENT PLANT Body Mass Index 43.55 04/17/2021 1:03 PM INSTRUCTOR WASTEWATER [employer]REATMENT PLANT Plan of Treatment Not on file Procedures [...] BLOOD ADD-ON Final Result Performing Organization Address City/[facility] de Phone Number POWERCHART * (ABNORMAL) Lipid [...] BLOOD ADD-ON Final Result Performing Organization Address City/[facility] de Phone Number POWERCHART from Last 3 Months or Most Recently Relevant to Health [place] [phone] [facility] Care Teams Information Receptionist Relationship Specialty Start Date End Date Elsewhere, Pcp PCP - General Family Medicine 06/15/17
--- OUTSIDE RECORDS SUMMARY | 2024-01-20 07:57 | XMS_ITS | Encounter Summary ---
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 11/07/2019 blood-glucose meter kit Use to test blood glucose 4 times daily. 09/22/2017 elastic bandage bandage 12 10/03/2017 FreeStyle João 14 Day [place] misc 02/17/2021 FreeStyle João 14 Day Sensor [...] Primary documented in this encounter Care Teams Soap Drier Tender Relationship Specialty Start Date End Date Elsewhere, Pcp PCP - General Family Medicine 06/15/17 documented as of this encounter
--- OUTSIDE RECORDS SUMMARY | 2024-01-20 07:57 | XMS_ITS ---
Author Organization [facility] Address [address] [place] [address] Care Team Providers Care Kiln Cleaner Name Role Phone Unavailable Unavailable Unavailable Surgery Details Not on file Complications Check Surgery Details section. Procedure Estimated Blood Loss Check Surgery Details section. Procedure Findings Check Surgery Details section. Procedure Specimens Taken Check Surgery Details section.
== END 2024-01-20 07:54 | disposition home or self-care (01) ==
LOC: WOUND 07:53
PROVIDERS: PCP Family Medicine; Visit Provider Family Medicine
DX: I87.312 Chronic venous hypertension (idiopathic) with ulcer of left lower extremity (principal); I87.2 Venous insufficiency (chronic) (peripheral); I89.0 Lymphedema, not elsewhere classified; E11.622 Type 2 diabetes mellitus with other skin ulcer; L97.322 Non-pressure chronic ulcer of left ankle with fat layer exposed
CPT/HCPCS: 11042

== ENCOUNTER 2024-01-26 07:50 | Outpatient (CLI) | payer OTHER, SELFPAY ==
--- OUTSIDE RECORDS SUMMARY | 2024-01-26 07:53 | XMS_ITS ---
Author Organization [facility] Address [address] [place] [address] Care Team Providers Care Billing Services Manager Name Role Phone Unavailable Unavailable Unavailable Surgery Details Not on file Complications Check Surgery Details section. Procedure Estimated Blood Loss Check Surgery Details section. Procedure Findings Check Surgery Details section. Procedure Specimens Taken Check Surgery Details section.
--- OUTSIDE RECORDS SUMMARY | 2024-01-26 07:53 | XMS_ITS | Encounter Summary ---
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 11/07/2019 blood-glucose meter kit Use to test blood glucose 4 times daily. 09/22/2017 elastic bandage bandage 12 10/03/2017 FreeStyle João 14 Day [place] misc 02/17/2021 FreeStyle João 14 Day Sensor [...] Primary documented in this encounter Care Teams Hospital Pharmacy Director Relationship Specialty Start Date End Date Elsewhere, Pcp PCP - General Family Medicine 06/15/17 documented as of this encounter
--- OUTSIDE RECORDS SUMMARY | 2024-01-26 07:53 | XMS_ITS | Clinical Summary ---
Author Organization [facility] Address [address] [place] [address] Care Team Providers Care Tree Fruit And Nut Farming Supervisor Name Role Phone Elsewhere, Pcp Primary Care Provider Unavailabl e Source Comments Patient records contain information from all sites at [facility]. For routine questions regarding patient records, call [phone] during business hours, M-F 8:00 AM - 5:00 PM Central Time. Record requests for emergency care only can be directed to [phone] at any time.[facility] Allergies Active Allergy Reactions Criticality Noted Date Comments Dimethicone-Petrolatum Rash 02/01/2014 Horse [place] Rash 07/16/2016 Silver Sulfate-Foam Bandage Rash 02/02/20 [...] mouth. 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 Gender Identity Not on file Sexual Orientation Not on file Last Filed Vital Signs Vital Sign Reading Time Taken Comments Blood Pressure 160/85 04/17/2021 1:03 PM INTERDISCIPLINARY PROFESSOR Pulse 74 04/17/2021 1:03 PM INTERDISCIPLINARY PROFESSOR Temperature 36.4 ??C (97.5 ??F) 04/17/2021 1:03 PM CS T Respiratory Rate 14 02/15/2021 1:17 PM INTERDISCIPLINARY PROFESSOR Oxygen Saturation 95% 02/15/2021 1:17 PM INTERDISCIPLINARY PROFESSOR Inhaled Oxygen Concentration - - Weight 138 kg (304 lb 3.8 oz) 04/17/2021 1:03 PM INTERDISCIPLINARY PROFESSOR Height 178 cm (5' 10.08) 04/17/2021 1:03 PM INTERDISCIPLINARY PROFESSOR Body Mass Index 43.55 04/17/2021 1:03 PM INTERDISCIPLINARY PROFESSOR Plan of Treatment Health Maintenance Due Date [...] BLOOD ADD-ON Final Result Performing Organization Address City/[facility] de Phone Number POWERCHART * (ABNORMAL) [...] BLOOD ADD-ON Final Result Performing Organization Address [facility] de Phone Number POWERCHART from Last 3 Months or Most Recently Relevant to Health Maintenance Insurance [facility] [place] [id number] Care Teams Tree Fruit And Nut Farming Supervisor Relationship Specialty Start Date End Date Elsewhere, Pcp PCP - General Family Medicine 06/15/17
--- OUTSIDE RECORDS SUMMARY | 2024-01-26 07:53 | XMS_ITS | Referral Summary ---
Author Organization [facility] Address [address] [place] [address] Care Team Providers Care Patrol Judge Name Role Phone Munir Sahu MD Primary Care Provider + [phone] Allergies Active Allergy Reactions Criticality Noted Date Comments Glyburide Other (See Comments) Medium 11/06/2019 Lightheadedness Nuts Rash Medium 11/06/2019 HORSE-CHESTNUT Silver Rash Low 11/05/2019 Medications torsemide (DEMADEX) 10 MG tabletIndicatio ns:Hypertension Take 10-20 mg by mouth daily as needed Active metFORMIN (GLUCOPHAGE-XR) 500 MG 24 hr tablet Take 1,000 mg by mouth daily (Takes 2 x 500mg) Active acetaminophen (TYLENOL) 325 MG tabletIndicatio ns:Prostate cancer (H) Take 3 tablets (975 mg) by mouth every 6 hours as needed for pain 0 Active oxyCODONE (ROXICODONE) 5 MG tabletIndicatio ns:Prostate cancer (H) Take 1-2 tablets (5-10 mg) by mouth every 3 hours as needed for breakthrough pain 15 tablet 0 Active senna-docusate (SENOKOT-S/SUSANNAH COLACE) 8.6-50 MG tabletIndicatio ns:Prostate cancer (H) Take 1 tablet by mouth 2 times daily as needed for constipation 30 tablet 1 0 Active Active Problems Problem Noted Date Diagnosed [...] at Not on file Legal Sex Male 3:49 PM CDT Gender Identity Not on file Sexual Orientation [...] CDT Plan of Treatment Not on file Insurance [facility] Advance Directives For more information, please contact: [phone] * Full Code (Latest Code Status on File) Date Activated Date Inactivated Comments 11/06/2019 2:19 PM 11/07/2019 9:06 PM All basic and advanced life-sustaining interventions are performed as appropriate Question Answer Comments Code status determined by: Unable to det ermine; FULL CODE until documents or legal decision maker available Care Teams Patrol Judge Relationship Specialty Start Date End Date Munir Sahu MD PCP - General Family Practice 10/22/19
--- OUTSIDE RECORDS SUMMARY | 2024-01-26 07:53 | XMS_ITS | Referral Summary ---
Author Organization [facility] Address [address] [place] [address] Care Team Providers Care Plastering Supervisor Name Role Phone Elsewhere, Pcp Primary Care Provider Unavailabl e Source Comments Patient records contain information from all sites at [facility]. For routine questions regarding patient records, call [phone] during business hours, M-F 8:00 AM - 5:00 PM Central Time. Record requests for emergency care only can be directed to [phone] at any time.[facility] Encounters Date Type Department Care Team Description 10/26/2023 10:48 PM CDT - 10/26/2023 11:59 PM CDT Emergency [facility] [address] [place] [id number] Hyperglycemia (Primary Dx) Discharge Disposition: Home or Self Care from Last 3 Months Allergies Active Allergy Reactions Criticality Noted Date Comments Dimethicone-Petrolatum Rash 02/01/2014 Horse [place] Rash 07/16/2016 Silver Sulfate-Foam Bandage Rash 02/02/20 [...] mouth. 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 Gender Identity Not on file Sexual Orientation Not on file Last Filed Vital Signs Vital Sign Reading Time Taken Comments Blood Pressure 160/85 04/17/2021 1:03 PM UNDERGROUND DRILL OPERATOR Pulse 74 04/17/2021 1:03 PM UNDERGROUND DRILL OPERATOR Temperature 36.4 ??C (97.5 ??F) 04/17/2021 1:03 PM CS T Respiratory Rate 14 02/15/2021 1:17 PM UNDERGROUND DRILL OPERATOR Oxygen Saturation 95% 02/15/2021 1:17 PM UNDERGROUND DRILL OPERATOR Inhaled Oxygen Concentration - - Weight 138 kg (304 lb 3.8 oz) 04/17/2021 1:03 PM UNDERGROUND DRILL OPERATOR Height 178 cm (5' 10.08) 04/17/2021 1:03 PM UNDERGROUND DRILL OPERATOR Body Mass Index 43.55 04/17/2021 1:03 PM UNDERGROUND DRILL OPERATOR Plan of Treatment Not on file [...] BLOOD ADD-ON Final Result Performing Organization Address City/[facility] de Phone Number POWERCHART * (ABNORMAL) [...] BLOOD ADD-ON Final Result Performing Organization Address City/[facility] de Phone Number POWERCHART from Last 3 Months or Most Recently Relevant to [place] [id number] [facility] Care Teams Plastering Supervisor Relationship Specialty Start Date End Date Elsewhere, Pcp PCP - General Family Medicine 06/15/17
--- OUTSIDE RECORDS SUMMARY | 2024-01-26 07:53 | XMS_ITS | Data Portability ---
Author Organization [place] [facility] [place] [facility] Address [address] [facility] [address] [place] [address] Care Team Providers Care Clinical Laboratory Aides Teacher Name Role Phone GORDY SOL Primary Care Provider [phone] Assessment Encounter Date Assessment Date Assessment LastModified by Organization Details LastModified Time 11/21/2019 11/21/2019 59M with [id number] Heidy 3+4=7 prostate cancer s/p RALP. Discussed pathology, risk of recurrence, need for ongoing PSA monitoring. Small anastomotic leak, will cont Choi x 1 more week. Worsened LE edema, likely chronic, but will check LE u/s to be sure no DVT. [email or web address] Not available 11/21/2019 14:07:03 01/02/2020 01/02/2020 59M with [id number] Heidy 3+4=7 prostate cancer s/p RALP. 1) Prostate cancer - f/u 4 months with PSA 2) EVETTE, moderate - cont Kegels - consider PFPT 3) ED - Cialis PRN [email or web address] Not available 01/02/2020 09:34:03 05/01/2020 05/01/2020 60M with [id number] Heidy 3+4=7 prostate cancer s/p RALP 6 months ago. MICHAEL. 1) Prostate cancer - f/u 6 months with PSA 2) EVETTE, moderate - cont Kegels - consider PFPT 3) ED - Cialis PRN [email or web address] Not available 05/01/2020 10:47:29 10/24/2020 10/24/2020 60M with [id number] Heidy 3+4=7 prostate cancer s/p RALP 1 [...] floor therap y referr al 2020 021 [facility], [address], [facility] [address], [place], [address], 09:57:49 Procedures None record ed. Surgeries None record ed. Imaging None record ed. Medication Orders None record ed. Patient TargetsNo targets recorded. Patient Instructions Encounter Date Encounter Id Patient Instructions Last Modified By Organization Details Last Modified Time 11/28/2019 [id number] To follow up sumaya Doshi at his [...] Not Available [facility] [address], [place], [address], 05/01/2020 10:40:29 02/11/2020 lab* PSA <0.04 normal Not Available No t Available 01/07/2020 12:33:24 01/02/2020 PSA, serum or plasm a PSA, Total <0.04 ng/Ml Not Available [facility] [address], [place], [address], 01/02/2020 09:14:10 10/25/19 21 10/24/2020 PSA, serum or plasm a PSA, Total <0.04n g/mL Not Available [facility] [address], [place], [address], 10/24/2020 10:45:30 11/23/19 20 11/21/2019 CT, pelvi s, w/o contr ast No observ ation record ed. cedric Not Available 17:13:18 Result Notes None recorded. Problems Name Problem SNOMED Code Status Onset Date Resolution Date Notes Provider Name and Address Organization Details Recorded Time Carcinoma of prostate 539712867 Active 2019 Caroline kruger [facility] 0 10:59:25 Male urinary stress incontinence 811015861 Active 2020 Momo mcfarlane MD, PHD [address] [place] [address],[address] [place] [address], [phone], [facility] 10:47:38 Primary erectile dysfunction 453852891 Active 2020 Momo mcfarlane MD, PHD [address] [place] [address],[address] [place] [address], [phone], [facility] 10:47:58 Problem Notes None recorded. Procedures Surgical History Date Name Laterality Status Provider Name and Address Organization Details Recorded Time 10/25/19 21 Blood Draw/PATTERN FILER/PSA RESULTS completed Momo baez MD, PHD [address] [place] [address],[address], [place], [address], [facility] 10/24/2020 10:45:26 05/01/19 21 Blood Draw/PATTERN FILER/PSA RESULTS completed Momo baez MD, PHD [address] [place] [address],[address], [address], [facility] 05/01/2020 10:40:25 01/02/20 20 Blood Draw/PATTERN FILER/PSA RESULTS completed Janice Ayala [facility] 01/02/2020 09:14:04 11/28/19 20 Choi Catheter Removal completed Caroline Smith [facility] 02/04/2020 12:00:10 Prostatectomy completed Momo baez MD, PHD [address] [place] [address],[address], [address], [facility] 10/24/2020 10:44:48 colonoscopy completed Monica Awan [facility] 12/09/2020 10:47:07 Imaging Results Imaging [...] Name and Address Organization Details Recorded Time [id number] silver medicatio n Not available Not available Not available 11/21/2019 [id number] RxNorm Caroline Rojasyoandy kruger [facility] 0 11:09:54 [id number] adhesive tape environme nt,medica tion Not available Not available Not available 11/21/2019 Caroline Bobyoandy kruger [facility] 0 11:10:01 Medications Name Sig [...] Updated DateTime 01/02/2020 180.34 cm 39.3 kg/m2 201377.05 g Caroline Luis [facility] 01/02/2020 09:09:40 Date Recorded Body height Body mass index (BMI) Body weight Provider Name and Address Organization Details Last Updated DateTime 05/01/2020 180.34 cm 39.3 kg/m2 113170.05 g Momo baez MD, PHD [address] [place], [place] [address] [place] [address] 05/01/2020 10:39:59 Date Recorded Body height Body mass index (BMI) Body weight Provider Name and Address Organization Details Last Updated DateTime 10/24/2020 180.34 cm 39.7 kg/m2 496333.83 g Momo baez MD, PHD [address] [place] [address] 10/24/2020 10:44:13 Date Recorded Body height Body mass index (BMI) Body weight Provider Name and Address Organization Details Last Updated DateTime 11/21/2019 180.34 cm 39.3 kg/m2 829169.05 g Caroline Smith [facility] 11/21/2019 11:09:04 Social History Question Answer Notes LastModified by Organizat ion Details LastModified Time Tobacco Smoking Status Never Smoker Caroline kruger [facility] 11/21/2019 11:10:15 What Is Your Level [...] Diagnosis/Indication Diagnosis SNOMED-CT Code Diagnosis ICD10 Code [id number] Momo beard MD, PHD [facility] [address] [place] [address] 11/21/2019 10:45:55 11/21/2019 15:00:28 Malignant tumor of prostate 327893048 C61 [id number] Caroline Gneiting [facility] [employer] [address] [place] [address] 11/28/2019 09:57:13 02/06/2020 03:54:17 [id number] Momo beard MD, PHD [facility] [employer] [address] [place] [address] 01/02/2020 08:46:59 01/02/2020 14:22:16 Malignant tumor of prostate 090160563 C61 [id number] Momo beard MD, PHD [facility] [employer] [address] [place] [address] 05/01/2020 09:26:51 05/01/2020 12:03:29 Malignant tumor of prostate 037552730 C61 Primary er ectile dysfunction 507979144 N52.9 [id number] Momo beard MD, PHD [facility] [employer] [address] [place] [address] 10/24/2020 10:28:04 10/27/2020 16:45:05 Carcinoma of prostate 332086449 C61 Malignant tumor of prostate 231423370 C61 Primary er ectile dysfunction 450815764 N52.9 Male urina ry stress incontinence 999063084 N39.3 Health Concerns Section Related Observation LastModified by Organization Detai ls LastModified Time None Recorded Concern Status LastModified by Organization Details LastModified Time None Recorded Advance Directives Directive None Recorded Payers Encounter Date Sequence Insurance Name Policy Number Policy Archibald Covered Member ID Archibald Member ID Guarantor Name 11/21/2019 1 [facility] [id number] Julien Gonsalvesretmaynor [id number] Julien Ridley 11/28/2019 1 [facility] [id number] Julien Gonsalvesretson [id number] Julien Ridley 01/02/2020 1 [facility] [id number] Julien Gonsalvesretson [id number] Julien Ridley 05/01/2020 1 [facility] [id number] Julien Gonsalvesretson [id number] Julien Ridley 10/24/2020 1 [facility] [id number] Julien Gonsalvesretson [id number] Julien Rildey Notes Date Note Type Note Provider Name and Address Organization Details Recorded Time 11/21/2019 text/html HPI Notes: 59M s /p RALP 11/06/19 for [id number] Heidy 3+4=7 prostate cancer (0/12 LN, -SMS) Overall doing well. Some drainage umbilical incision. Chronic LE edema worse especially R>L. Some hematuria when having BMs. No fever. Eating ok. Minimal pain. CT Cystogram today: small anastomotic leak PSA (07/27/19): 6.5 CONSTANZA: cT1c, 35g (J Carlos) MRI: none Biopsy (08/30/19): 23g, 3/12 cores (LLM, LMB, LMM [place] 3+4=7 up to 40%) Pre-op ED: 05/09 Momo Holliday MD, PHD [address] [facility] [address], [place], [address], [facility] 11/21/2019 14:07:42 01/02/2020 text/html HPI Notes: 59M with [id number] Heidy 3+4=7 prostate cancer (0/12 LN, -SMS) s/p RALP 11/06/19. Small anastomotic leak, catheter removed 11/28/19. Overall doing well. C/o some leakage with BMs and position changes. Uses multiple depends per day...... LE u/s to eval for dvt last visit was negative PSA Results 07/27/19: 6.5 01/02/20: <0.04 UF: 4/5 EF: 5/5 Pre-op EF: 2/5 Momo Holliday MD, PHD [address] [place] [address],[address], [address], [facility] 01/02/2020 09:35:54 05/01/2020 text/html HPI Notes: 60M with [id number] [place] 3+4=7 prostate cancer (0/12 LN, -SMS) s/p RALP 11/06/19. Small anastomotic leak, catheter removed 11/28/19. Overall doing well. C/o some leakage with BMs and position changes. Uses 4ppd which is improvement. No problems with incisions. PSA Results 07/27/19: 6.5 01/02/20: <0.04 05/01/20: <0.04 UF: 3/5 EF: 5/5 Pre-op EF: 2/5 Momo Holliday MD, PHD [address] [place] [address], [phone], [facility] 05/01/2020 10:48:15 10/24/2020 text/html HPI Notes: 60M with [id number] [place] 3+4=7 prostate cancer (0/12 LN, -SMS) s/p RALP 11/06/19 Overall doing well. C/o some leakage with BMs and position changes and sexual activity. Uses 4ppd still. No problems with incisions. PSA Results 07/27/19: 6.5 01/02/20: <0.04 05/01/20: <0.04 10/24/20: <0.04 UF: 3/5 EF: 5/5 Pre-op EF: 2/5 Momo Holliday MD, PHD [address] [place] [address],[place] [address], [place], [address], [facility] 10/24/2020 11:30:55
--- OUTSIDE RECORDS SUMMARY | 2024-01-26 07:53 | XMS_ITS | Clinical Summary ---
Author Organization [facility] Address [address] [place] [address] Care Team Providers Care Chief Projectionist Name Role Phone Munir Sahu MD Primary Care Provider + [phone] Allergies Active Allergy Reactions Criticality Noted Date [...] Plan of Treatment Not on file Insurance [facility] [place] [address] Advance Directives For more information, please contact: [phone] * Full Code (Latest Code Status on File) Date Activated Date Inactivated Comments 11/06/2019 2:19 PM 11/07/2019 9:06 PM All basic and advanced life-sustaining interventions are performed as appropriate Question Answer Comments Code status determined by: Unable to det ermine; FULL CODE until documents or legal decision maker available Care Teams Chief Projectionist Relationship Specialty Start Date End Date Munir Sahu MD PCP - General Family Practice 10/22/19
--- OUTSIDE RECORDS SUMMARY | 2024-01-26 07:53 | XMS_ITS | Clinical Summary ---
Author Organization [employer] [facility] Address [place], [place] [address] Care Team Providers Care Machine Cloth Measurer Name Role Phone Munir Sahu MD Primary Care Provider + [facility], [facility] [phone] Allergies Active Allergy Reactions Criticality Noted Date [...] by insurance) 9 mL 09/28/2023 Active Insulin [place], Disposable, (Susana Pen Needle) 32 gauge x [...] Diagnosed Date Coronary artery disease invo lving [place] coronary artery without angina pectoris 10/28/2023 Overview [...] Encounters Date Type Department Care Team Description 01/25/2024 6:59 AM CDT - 01/25/2024 11:59 PM CDT Hospital Encounter [facility] [address] [place] [address] 01/25/2024 Travel 01/23/2024 7:00 AM CDT - 01/23/2024 11:59 PM CDT Hospital Encounter [facility] [address] [place] [address] 01/23/2024 Travel 01/19/2024 7:00 AM CDT - 01/19/2024 11:59 PM CDT Hospital Encounter [facility] [address] [place] [address] 01/19/2024 Travel 01/18/2024 6:57 AM CDT - 01/18/2024 11:59 PM CDT Hospital Encounter [facility] [address] [place] [address] 01/18/2024 Travel 01/16/2024 7:00 AM CDT - 01/16/2024 11:59 PM CDT Hospital Encounter [facility] [address] [place] [address] 01/16/2024 Travel 01/12/2024 6:58 AM CDT - 01/12/2024 11:59 PM CDT Hospital Encounter [facility] [address] [place] [address] 01/12/2024 Travel 01/11/2024 6:56 AM CDT - 01/11/2024 11:59 PM CDT Hospital Encounter [facility] [address] [place] [address] 01/11/2024 Travel 01/05/2024 6:56 AM CDT - 01/05/2024 11:59 PM CDT Hospital Encounter [facility] [address] [place] [address] 01/05/2024 Travel 01/04/2024 6:56 AM CDT - 01/04/2024 11:59 PM CDT Hospital Encounter [facility] [address] [facility] [place] [address] 01/04/2024 Travel 01/02/2024 7:00 AM CDT - 01/02/2024 11:59 PM CDT Hospital Encounter [facility] [address] [facility] [place] [address] 01/02/2024 Travel 12/22/2023 6:51 AM CDT - 12/22/2023 11:59 PM CDT Hospital Encounter [facility] [address] [place] [address] 12/22/2023 Travel 12/21/2023 6:51 AM CDT - 12/21/2023 11:59 PM CDT Hospital Encounter [facility] [address] [place] [address] 12/21/2023 Travel 12/19/2023 9:30 AM CDT Orders Only [facility] [address] [place] [address] 2 scans: (2-Ord) US VENOUS INSUFFICIENCY LOWER EXTREMITY BILATERAL ([id number]) 12/19/2023 7:30 AM CDT - 12/19/2023 11:59 PM CDT Hospital Encounter [facility] [address] [facility] [place] [address] 12/19/2023 Travel 12/15/2023 6:57 AM CDT - 12/15/2023 11:59 PM CDT Hospital Encounter [facility] 0 [facility] [place] [address] 12/15/2023 Travel 12/14/2023 6:54 AM CDT - 12/14/2023 11:59 PM CDT Hospital Encounter [facility] [address] [place] [address] 12/14/2023 Travel 12/13/2023 1:30 PM CDT Office Visit [facility] [address] [facility] [address] [facility] [address] [place] [address] Kamran Li MD Follow Up (Dr. Li [...] - 12/13/2023 11:59 PM CDT Hospital Encounter [facility] [address], [address] [place] [address] Kamran Li MD CAD, multiple vessel; S/p 3V CABG (SHER-LAD, LISA-ramus, radial-OM), 09/23/2023 12/13/2023 Travel 12/12/2023 7:00 AM CDT - 12/12/2023 11:59 PM CDT Hospital Encounter [facility] 0 [place] [address] 12/12/2023 [facility] [address] [place] [address] Gina Jaime Cardiovascular Diagnostic Testing (lvm to confirm 12/13/23 stress test appt) 12/12/2023 Travel 12/08/2023 6:56 AM CDT - 12/08/2023 11:59 PM CDT Hospital Encounter [facility] 0 [place] [address] 12/08/2023 Travel 12/07/2023 6:52 AM CDT - 12/07/2023 11:59 PM CDT Hospital Encounter [facility] 0 [place] [address] 12/07/2023 Travel 12/01/2023 6:55 AM CDT - 12/01/2023 11:59 PM CDT Hospital Encounter [place] [address] [place] [address] 12/01/2023 Travel 11/30/2023 6:55 AM CDT - 11/30/2023 11:59 PM CDT Hospital Encounter [facility] [address] [place] [address] 11/30/2023 Travel 11/29/2023 9:09 AM CDT - 11/29/2023 11:59 PM CDT Hospital Encounter [facility] [address] [place] [address] Alejandra Lau, PA S/p 3V CABG (SHER-LAD, LISA-ramus, radial-OM), 09/23/2023 11/29/2023 Travel 11/28/2023 7:30 AM CDT Home Care Visit [address] [phone] Elvira Reyes RN SN - OASIS DISCHARGE 11/22/2023 10:45 AM CDT Home Care Visit [address] [phone] Tyson Mejias, PT PT - DISCIPLINE DISCHARGE 11/21/2023 10:00 AM CDT Home Care Visit [address] [phone] Irma Hollins RN SN - HOME VISIT 11/17/2023 7:30 AM CDT Home Care Visit [address] [phone] Tyson Mejias, PT PT - HOME VISIT 11/15/2023 8:30 AM CDT Home Care Visit [address] [phone] Tyson Mejias, PT PT - HOME VISIT 11/14/2023 8:30 AM CDT Home Care Visit [address] [phone] Elvira Reyes RN SN - HOME VISIT 11/14/2023 3:30 AM CDT Home Care Visit [facility] [address] [place] [phone] Ailyn Varghese RN SN - WOUND/OSTOMY CHART CONSULT 11/11/2023 Telephone [facility] [address] [place] [address] Anibal Quigley MD Referral 11/10/2023 8:00 AM CDT Home Care Visit [facility] [address] [place] [phone] Tyson Mejias, PT PT - HOME VISIT 11/09/2023 10:00 AM CDT Home Care Visit [facility] [address] [place] [phone] Isa Cintron RN SN - HOME VISIT 11/09/2023 Orders Only [facility] [address] [place] [address] Antoinette Lopez PA <No scans attached> 11/08/2023 Home Care Visit [facility] [address] [place] [phone] Tyson Mejias, PT CARE COORDINATION 11/07/2023 8:15 AM CDT Home Care Visit [facility] [address] [place] [phone] Tyson Mejias, PT PT - INITIAL ASSESSMENT 11/07/2023 7:30 AM CDT Home Care Visit [facility] [address] [place] [phone] Lexi Esteves RN SN - HOME VISIT 11/04/2023 Home Care Visit [facility] [address] [place] [phone] Elvira Reyes RN CARE COORDINATION 11/04/2023 Telephone [facility] [address] [facility] [address] [place], [place] [phone] Gregorio Olivia MD Medication Management (amlodipine) 11/02/2023 8:30 AM CDT Home Care Visit [facility] [address] [place] [address] Nohemy Anna LPN REGISTERED NURSE MATERNAL CHILD - HOME VISIT 10/31/2023 3:00 PM CDT Home Care Visit [facility] [address] [place] [address] Evie Young RN SN - HOME VISIT 10/31/2023 Procedure Only [facility] [address] [facility] [address] [place] [address] Device Check (Remote Leadless Pacemaker Ca... 10/28/2023 5:20 AM CDT - 10/28/2023 1:20 PM CDT Hospital Encounter [facility] [address] [facility] [place] [address] Kamran Li MD Essential hypertension (Primary Dx); CAD, multiple vessel; S/p 3V CABG (SHER-LAD, LISA-ramus, radial-OM), 09/23/2023 Discharge Disposition: Home Self Care 10/28/2023 Home Care Visit [facility] [address] [place] [address] Elvira Reyes RN CARE TRANSITION NOTE 10/28/2023 Travel 10/27/2023 8:30 AM CDT Home Care Visit [facility] [address] [place] [address] Elvira Reyes RN SN - HOME VISIT 10/26/2023 10:48 PM CDT - 10/27/2023 12:53 AM CDT Emergency [facility] [address], [place] [address] Misha Styles III, MD Insomnia, unspecified type (Primary Dx); Anxiety Discharge Disposition: Home Self Care 10/26/2023 Travel from Last 3 Months Family History [...] file 09/18/2023 Food Insecurity Answer Date Recorded Do you worry your food will run out before you are able to buy more? 1 09/18/2023 Transportation Needs Answer Date Record ed Lack of Transportation (Medical) 1 09/18/2023 Housing Stability Answer Date Recorded What is your housing situation today? 1 09/18/2023 Sex and Gender Information Value [...] Care Team (Late st Contact Info) Description 01/30/2024 7:00 AM CDT [facility] [place] [address] [facility] [address] 02/01/2024 7:00 AM CDT [facility] [place] [address] [facility] [address] 02/02/2024 7:00 AM CDT [facility]ment [place] [address] [facility] [address] 02/06/2024 7:00 AM MENAGERIE CARETAKER Appointment [place] [address] [facility] [address] 02/08/2024 7:00 AM MENAGERIE CARETAKER Appointment [facility] [address] [place] [address] 02/09/2024 7:00 AM MENAGERIE CARETAKER Appointment [facility] [address] [place] [address] 02/13/2024 7:00 AM MENAGERIE CARETAKER Appointment [facility] [address] [place] [address] 02/15/2024 7:00 AM MENAGERIE CARETAKER Appointment [facility] [address] [place] [address] 02/16/2024 7:00 AM MENAGERIE CARETAKER Appointment [facility] [address] [place] [address] 02/20/2024 7:00 AM MENAGERIE CARETAKER Appointment [facility] [address] [place] [address] 02/27/2024 Procedure Only [facility] [address] [place] [address] Health Maintenance Due Date Last [...] Priority Date/Time Associated Diagnosis Comments SCAN-CARDIAC REHABILITATION 01/25/2024 7:04 AM CDT SCAN-CARDIAC REHABILITATION 01/23/2024 7:08 AM CDT SCAN-CARDIAC REHABILITATION 01/19/2024 7:07 AM CDT SCAN-CARDIAC [...] GLUCOSE METER Routine 10/26/2023 10:52 PM CDT LIPID PANEL Early AM 09/18/2023 4:17 AM CDT from Last 3 Months or Most Recently Relevant to Health Maintenance Results * SCAN-CARDIAC REHABILITATION (01/25/2024 7:04 AM CDT) Only the most recent of22 resultswithin the time period is included. Scanner OTHER * (ABNORMAL) GLUCOSE METER (01/12/2024 7:52 AM CDT) Only the most recent of10 resultswithin the time period is included. GLUCOSE METER 154(H) 65 - 100 mg/dL 01/12/2024 7:57 AM CDT [facility] Blood BLOOD SPECIMEN / Unknown 01/12/2024 7:52 AM CDT 01/12/2024 7:57 AM CDT Doctor Unknown CHEMISTRY Performing Organization Address City/State/[facility] Co de Phone Number [facility] [address] [address] * US VENOUS INSUFFICIENCY LOWER EXTREMITY BILATERAL (12/19/2023 1:21 PM CDT) Anatomical Region Laterality Modality LEGS Ultrasound 12/19/2023 9:22 AM CDT Narrative 12/19/2023 5:10 PM CDT VASCULAR ULTRASOUND REPORT JOSE GUADALUPE Owens KEYANA Accession#: ?? [id number] : ?1960 ??Study Date: ?? 12/19/2023 9:22:18 AM Age: ?63 years ?? Tech: ? PMK Gender: M ?Referring MD: ANTOINETTE LOPEZ Site: [facility] Study performed: ?Duplex US venous insufficiency, (bilateral). [...] and distal calf. 5. Incompetent varicose and/or conversion man veins as listed below. COMPARISON: No prior [...] Accreditation Commission (IAC/Vascular), www.intersocietal.org/vascular Report generated by [employer] ??Final ?? Procedure Note Anderson Petersen MD - 12/19/2023 VASCULAR ULTRASOUND REPORT JOSE GUADALUPE RIDLEY : 1960 Study Date: 12/19/2023 9:22:18 AM Age: 63 years Tech: PMK Gender: M Referring MD: ANTOINETTE LOPEZ Site: [facility] Study performed: Duplex US venous insufficiency, (bilateral). [...] and distal calf. 5. Incompetent varicose and/or conversion man veins as listed below. COMPARISON: No prior [...] theIntersocietal Accreditation Commission (IAC/Vascular),www.intersocietal.org/vascular Report generated by [employer] Final Antoinette FAJARDO US * NM CARDIAC MPI STRESS TEST (12/13/2023 10:08 AM CDT) Anatomical Region Laterality Modality HEART Nuclear Medicine 12/13/2023 7:07 AM CDT Narrative 12/13/2023 12:48 PM CDT [address], [place] [address] Main: ?Myocardial Perfusion Report ?Rest/Stress 1 Day Single Isotope Gated SPECT imaging with Regadenoson(Lexiscan) stress KEYANA JOSE GUADALUPERAMAKRISHNA Caballero ID: [id number] Age: 63 : 1960 Nuclear Tech: KKD Exam Date: 12/13/2023 07:07 Gender: M RN/Ex. Domestic Helper: HANG/TYLER Height: 70.9 in BSA: 2.43 m?? Monitoring Provider: KARY AIKEN Weight: 280 lbs BMI: 39.2 kg/m?? Ordering Provider: KAMRAN LI Location: [facility] Indication: S/P CABG x 3; [...] / 60 % MPHR: 51 Double Product: [id number] Recovery HR(bpm): 71 Recovery BP(mmHg): 124 / [...] 0 Apical Lateral: 0 Apical Lateral: 0 [place]: 0 [place]: 0 Summed Stress Score: 2 Summed Rest [...] left ventricular wall motion. Anderson ??Lolis NOBLES [facility] Accredited Site (Electronically Signed) Final Date: 13 December 2023 12:48 ICD-10 Codes: Z95.1; I25.10 CC Providers: Dr. Munir Sahu Procedure Note Anderson Danielle MD - 12/13/[address], [place] [address] Main: Myocardial Perfusion Report Rest/Stress 1 Day Single Isotope Gated SPECT imaging withRegadenoson(Lexiscan) stress ALICEKG JOSE GUADALUPERAMAKRISHNA Caballero ID: [id number] Age: 63 : 1960 Nuclear Tech: KKD Exam Date: 12/13/2023 07:07 Gender: M RN/Ex. Domestic Helper: HANG/CTL Height: 70.9 in BSA: 2.43 m?? Monitoring Provider:KARY AIKEN Weight: 280 lbs BMI: 39.2 kg/m?? Ordering Provider: KAMRAN LI Location: [facility] Indication: S/P CABG x 3; [...] 142 / 60 % MPHR: 51 Double Product:[id number] Recovery HR(bpm): 71 Recovery BP(mmHg): 124 / [...] 0 Apical Lateral: 0 Apical Lateral: 0 [place]: 0 [place]: 0 Summed Stress Score: 2 Summed Rest [...] left ventricular wall motion. Anderson Danielle MD [facility] Accredited Site (Electronically Signed) Final Date: 13 [...] NOW QTc 472 ms BEYOND NOW P [place] 56 degrees BEYOND NOW R [place] 45 degrees BEYOND NOW T [place] 70 degrees BEYOND NOW 10/28/2023 10:3 3 AM CDT 10/28/2023 11:07 AM CDT Kamran iL MD EKG ORD BEYOND NOW [place], [place] * (ABNORMAL) ACTIVATED CLOTTING TIME [id number] ACT (10/28/2023 8:56 AM CDT) ACTIVATED CLOTTING TIME, POCT 304(H) 74 - 125 sec 10/28/2023 12:18 PM CDT [facility] Blood BLOOD SPECIMEN / Unknown 10/28/2023 8:56 AM CDT 10/28/2023 12:18 PM CDT Kamran Li MD HEMATOLOGY [facility] SENDOUT INTERNAL ZIP [address] [place] [address] * CVL PCI ONLY (10/28/2023 8:19 AM CDT) Anatomical Region Laterality Modality X-Ray Angiograph y 10/28/2023 8:19 AM CDT Narrative Transcriptions Kamran Li MD - 10/28/2023 9:33 AM CDT [facility] Cardiac Catheterization Report Name: JOSE GUADALUPE RIDLEY Event Date: 10/28/2023 08:19 [facility] ID #: [id number] JAKE #: [id number] Diagnostic Physician: KAMRAN LI [facility] Interventional Physician: KAMRAN LI [facility] Referring Physician: GREGORIO OLIVIA Date: 1960 [...] inhibit spasm of the radialgraft. Consent & [place] Protocol The risks, benefits, and alternatives of the procedure were discussed withthe patient and written informed consent was obtained. [place] protocol was followed. TIME OUT conducted just prior tostarting procedure confirmed patient identity, site/side, procedure,patient position, and availability of correct equipment and implants (ifapplicable). Staff Name Title KAMRAN LI Birth Certificate Clerk Rafaela Bailey RN Nurse Hung Oviedo RTR Machelle Adler RTR Monitor Jimmie Merino CVT [employer] C[employer]ian Procedures ? US Guided Access ? Coronary [...] 15mm 1 Distal RCA Drug Eluting Stent [place] 3.50 x 22mm Procedure Details Estimated Blood Loss: < 30 ml Specimen Collected: None Level of Sedation Achieved: Moderate Procedure Start: 08:19 Procedure End: 09:22 Procedure Time: 63 min Fluoroscopy Time: 16.2 min Cumulative Air Kerma: 1697 mGy DAP: 60588 mGy/cm2 Contrast: Omnipaque, 230 ml Physiologic Data [...] IV Kamran Li Kendra RN 08:39 Heparin 18227 units IV Kamran Li Kendra RN 08:44 [...] healthcare professional providing the sedation ends personal [id number]-[id number] time with the patient. The medications listed above were verbally ordered by me and read back tome as documented above. Refer to the procedure log report for additional case details. electronically signed on 10/28/2023 9:33:27 AM with status of Final Kamran Li MD [address], [place] [address] [place] [address] (p) [phone](f) Alejandra FAJARDO CV IMAGING * (ABNORMAL) CBC with Platelets no Differential (10/28/2023 6:35 AM CDT) WHITE BLOOD COUNT 5.9 4.5 - 11.0 thou/cu mm 10/28/2023 6:52 AM CDT [facility] RED BLOOD COUNT 4.27(L) 4.30 - 5.90 mil/cu mm 10/28/2023 6:52 AM CDT [facility] HEMOGLOBIN 12.6(L) 13.5 - 17.5 g/dL 10/28/2023 6:52 AM T [facility] HEMATOCRIT 38.9 37.0 - 53.0 % 10/28/2023 6:52 AM [facility] MCV 91 80 - 100 fL 10/28/2023 6:52 AM T [facility] MCH 29.5 26.0 - 34.0 pg 10/28/2023 6:52 AM [facility] MCHC 32.4 32.0 - 36.0 g/dL 10/28/2023 6:52 AM T [facility] RDW 14.6 11.5 - 15.5 % 10/28/2023 6:52 AM [facility] PLATELET COUNT 193 140 - 440 thou/cu mm 10/28/2023 6:52 AM T [facility] MPV 9.6 6.5 - 11.0 fL 10/28/2023 6:52 AM [facility] NRBC 0.0 % 10/28/2023 6:52 AM [facility] ABS NRBC 0.0 thou /cu mm 10/28/2023 6:52 AM [facility] Blood BLOOD SPECIMEN / Unknown Venipuncture / Unknown 10/28/2023 6:35 AM CDT 10/28/2023 6:45 AM CDT Gregorio Elizabeth MD HEMATOLOGY [facility] SENDOUT INTERNAL ZIP [phone] [place] [address] * (ABNORMAL) Basic Metabolic Panel (10/28/2023 6:35 AM CDT) Only the most recent of2 resultswithin the time period is included. SODIUM 139 136 - 145 mmol/L 10/28/2023 7:19 AM T [facility] POTASSIUM 3.8 3.5 - 5.1 mmol/L 10/28/2023 7:19 AM [facility] CHLORIDE 102 98 - 107 mmol/L 10/28/2023 7:19 AM T [facility] CO2,TOTAL 25 22 - 29 mmol/L 10/28/2023 7:19 AM [facility] ANION GAP 12 5 - 18 10/28/2023 7:19 AM [facility] GLUCOSE 158(H) 70 - 99 mg/dL 10/28/2023 7:19 AM [facility] CALCIUM 9.4 8.8 - 10.2 mg/dL 10/28/2023 7:19 AM [facility] BUN 19 8 - 23 mg/dL 10/28/2023 7:19 AM [facility] CREATININE 0.97 0.70 - 1.20 mg/dL 10/28/2023 7:19 AM [facility] BUN/CREAT RATIO 20 10 - 20 7:19 AM [facility] eGFR 88(L) >90 mL/min/1.7 3m2 10/28/2023 7:19 AM [facility] Comment:As of 2021, eG FR is calculated by the CKD-EPI creatinine equation without race adjustment. ??eGFR can be influenced by muscle mass, exercise, and diet. ??The reported eGFR is an estimation only and is only applicable if the renal function is stable. Blood BLOOD SPECIMEN / Unknown Venipuncture / Unknown 10/28/2023 6:35 AM CDT 10/28/2023 6:45 AM T Gregorio Elizabeth MD CHEMISTRY [facility] SENDOUT INTERNAL ZIP [address] [place] [address] * URINALYSIS MICROSCOPIC (10/26/2023 11:46 PM T) RBC None Seen 0-2, None Seen /HPF 10/26/2023 11:55 PM [facility] WBC 0-2 0-2, 3-5, None Seen /HPF 10/26/2023 11:55 PM [facility] BACTERIA Rare None Seen, Rare, Few Bacteria/H PF 10/26/2023 11:55 PM [facility] EPITHELIAL CELLS Few None Seen, Few Epi/HPF 10/26/2023 11:55 PM [facility] Urine URINE SPECIMEN / Unknown Non-Blood / Unknown 10/26/2023 11:46 PM CDT 10/26/2023 11:49 PM CDT Misha Styles III, MD URINE [facility] [address] [address] * (ABNORMAL) Urinalysis w Reflex Microscopic if Positive (10/26/2023 11:46 PM CDT) COLOR Yellow Yellow Color 10/26/2023 11:52 PM [facility] CLARITY Clear Clear Clarity 10/26/2023 11:52 PM [facility] SPECIFIC GRAVITY,URINE 1.020 1.010, 1.015, 1.020, 1.025 10/26/2023 11:52 PM [facility] PH,URINE 6.0 6.0, 7.0, 8.0, 5.5, 6.5, 7.5, 8.5 10/26/2023 11:52 PM [facility] UROBILINOGEN, QUALITATIVE Normal Normal EU/dl 10/26/2023 11:52 PM [facility] PROTEIN, URINE Negative Negative mg/dL 10/26/2023 11:52 PM [facility] GLUCOSE, URINE >=1000(A) Negative mg/dL 10/26/2023 11:52 PM [facility] KETONES,URINE Negative Negative mg/dL 10/26/2023 11:52 PM [facility] BILIRUBIN,URI NE Negative Negative 10/26/2023 11:52 PM [facility] OCCULT BLOOD,URINE Negative Negative 10/26/2023 11:52 PM [facility] NITRITE Negative Negative 10/26/2023 11:52 PM [facility] LEUKOCYTE ESTERASE Negative Negative 10/26/2023 11:52 PM [facility] Urine URINE SPECIMEN / Unknown Non-Blood / Unknown 10/26/2023 11:46 PM CDT 10/26/2023 11:49 PM CDT Misha Styles III, MD URINE [facility] [address] [address] * (ABNORMAL) CBC WITH AUTO DIFFERENTIAL (10/26/2023 11:29 PM CDT) WHITE BLOOD COUNT 6.5 4.5 - 11.0 thou/cu mm 10/26/2023 11:40 PM [facility] RED BLOOD COUNT 4.13(L) 4.30 - 5.90 mil/cu mm 10/26/2023 11:40 PM [facility] HEMOGLOBIN 12.3(L) 13.5 - 17.5 g/dL 10/26/2023 11:40 PM [facility] HEMATOCRIT 39.2 37.0 - 53.0 % 10/26/2023 11:40 PM [facility] MCV 95 80 - 100 fL 10/26/2023 11:40 PM [facility] MCH 29.8 26.0 - 34.0 pg 10/26/2023 11:40 PM [facility] MCHC 31.4(L) 32.0 - 36.0 g/dL 10/26/2023 11:40 PM [facility] RDW 14.7 11.5 - 15.5 % 10/26/2023 11:40 PM [facility] PLATELET COUNT 179 140 - 440 thou/cu mm 10/26/2023 11:40 PM [facility] MPV 9.4 6.5 - 11.0 fL 10/26/2023 11:40 PM [facility] % NEUT 64.9 % 10/26/2023 11:40 PM [facility] % LYMPH 14.5 % 10/26/2023 11:40 PM [facility] % MONO 8.6 % 10/26/2023 11:40 PM [facility] % EOS 11.7 % 10/26/2023 11:40 PM [facility] % BASO 0.3 % 10/26/2023 11:40 PM CDT [facility] ABSOLUTE NEUTROPHILS 4.2 1.7 - 7.0 thou/cu mm 10/26/2023 11:40 PM T [facility] ABSOLUTE LYMPHOCYTES 0.9 0.9 - 2.9 thou/cu mm 10/26/2023 11:40 PM T [facility] ABSOLUTE MONOCYTES 0.6 <0.9 thou/cu mm 10/26/2023 11:40 PM T [facility] ABSOLUTE EOSINOPHILS 0.8(H) <0.5 thou/cu mm 10/26/2023 11:40 PM T [facility] ABSOLUTE BASOPHILS 0.0 <0.3 thou/cu mm 10/26/2023 11:40 PM [facility] Blood BLOOD SPECIMEN / Unknown Venipuncture / Unknown 10/26/2023 11:29 PM CDT 10/26/2023 11:31 PM CDT Misha Styles III, MD [facility] [address] [address] * LIPID PANEL (09/18/2023 4:17 AM CDT) CHOLESTEROL,TOTAL 174 100 - 199 mg/dL 09/18/2023 4:54 AM [facility] Comment: Cholesterol, Total Reference Ranges Desirable <200 mg/dL Borderline 200-239 mg/dL High >=240 mg/dL TRIGLYCERIDES 105 <150 mg/dL 09/18/2023 4:54 AM [facility] HDL CHOLESTEROL 42 >40 mg/dL 4:54 AM [facility] NON-HDL CHOLESTEROL 132 <145 mg/dl 09/18/2023 4:54 AM [facility] CHOL/HDL RATIO 4.14 <4.50 09/18/2023 4:54 AM [facility] LDL CHOLESTEROL 111 <=130 mg/dL 09/18/2023 4:54 AM [facility] VLDL CHOLESTEROL 21 <=30 mg/dL 09/18/2023 4:54 AM CDT [facility] PROVIDER ORDERED STATUS RANDOM 09/18/2023 4:54 AM CDT [facility] Blood BLOOD SPECIMEN / Unknown Venipuncture / Unknown 09/18/2023 4:17 AM CDT 09/18/2023 4:27 AM CDT Wendy Lomeli DO CHEMISTRY [facility] SENDOUT INTERNAL ZIP [address] [address] [place] [address] from Last 3 Months or Most Recently [...] Code Status Discussion: Not Discussed Care Teams Machine Cloth Measurer Relationship Specialty Start Date End Date Munir Sahu MD [address] [place] [address] PCP - General Family Practice 09/17/23 [facility] [address] [place] [address] 09/28/23
== END 2024-01-26 07:51 | disposition home or self-care (01) ==
LOC: WOUND 07:50
PROVIDERS: PCP Family Medicine; Visit Provider Nurse Practitioner Family
DX: I87.312 Chronic venous hypertension (idiopathic) with ulcer of left lower extremity (principal); I87.2 Venous insufficiency (chronic) (peripheral); I89.0 Lymphedema, not elsewhere classified; E11.622 Type 2 diabetes mellitus with other skin ulcer; L97.322 Non-pressure chronic ulcer of left ankle with fat layer exposed; Z79.4 Long term (current) use of insulin
CPT/HCPCS: 11042

== ENCOUNTER 2024-02-03 07:49 | Outpatient (CLI) | payer OTHER, SELFPAY ==
--- OUTSIDE RECORDS SUMMARY | 2024-02-03 07:51 | XMS_ITS | Data Portability ---
Author Organization [facility] [facility] Address [address] [facility] [address] [place] [address] Care Team Providers Care Basic Acoustic Analyst Name Role Phone GORDY SOL Primary Care Provider [phone] Assessment Encounter Date Assessment Date Assessment LastModified by Organization Details LastModified Time 11/21/2019 11/21/2019 59M with [id number] Heidy 3+4=7 prostate cancer s/p RALP. Discussed pathology, risk of recurrence, need for ongoing PSA monitoring. Small anastomotic leak, will cont Choi x 1 more week. Worsened LE edema, likely chronic, but will check LE u/s to be sure no DVT. [email or web address] Not available 11/21/2019 14:07:03 01/02/2020 01/02/2020 59M with [id number] Heidy 3+4=7 prostate cancer s/p RALP. 1) Prostate cancer - f/u 4 months with PSA 2) EVETTE, moderate - cont Kegels - consider PFPT 3) ED - Cialis PRN [email or web address] Not available 01/02/2020 09:34:03 05/01/2020 05/01/2020 60M with [id number] Heidy 3+4=7 prostate cancer s/p RALP 6 months ago. MICHAEL. 1) Prostate cancer - f/u 6 months with PSA 2) EVETTE, moderate - cont Kegels - consider PFPT 3) ED - Cialis PRN [email or web address] Not available 05/01/2020 10:47:29 10/24/2020 10/24/2020 60M with [id number] Heidy 3+4=7 prostate cancer s/p RALP 1 [...] floor therap y referr al 2020 021 [facility], [address], [facility] [place] [address], [place], [address], 09:57:49 Procedures None record ed. Surgeries None record ed. Imaging None record ed. Medication Orders None record ed. Patient TargetsNo targets recorded. Patient Instructions Encounter Date Encounter Id Patient Instructions Last Modified By Organization Details Last Modified Time 11/28/2019 [id number] To follow up sumaya Doshi at his [...] Not Available [facility] [address], [place], [address], 05/01/2020 10:40:29 02/11/2020 lab* PSA <0.04 normal Not Available No t Available 01/07/2020 12:33:24 01/02/2020 PSA, serum or plasm a PSA, Total <0.04 ng/Ml Not Available [facility] [address], [place], [address], 01/02/2020 09:14:10 10/25/19 21 10/24/2020 PSA, serum or plasm a PSA, Total <0.04n g/mL Not Available [facility] [address], [place], [address], 10/24/2020 10:45:30 11/23/19 20 11/21/2019 CT, pelvi s, w/o contr ast No observ ation record ed. [email or web address] Not Available 17:13:18 Result Notes None recorded. Problems Name Problem SNOMED Code Status Onset Date Resolution Date Notes Provider Name and Address Organization Details Recorded Time Carcinoma of prostate 336051484 Active 2019 Caroline kruger [facility] 0 10:59:25 Male urinary stress incontinence 952773026 Active 2020 Momo mcfarlane MD, PHD [address] [place] [address],[address] [place] [address], [phone], [facility] 10:47:38 Primary erectile dysfunction 422205310 Active 2020 Momo mcfarlane MD, PHD [address] [place] [address],[address] [place] [address], [phone], [facility] 10:47:58 Problem Notes None recorded. Procedures Surgical History Date Name Laterality Status Provider Name and Address Organization Details Recorded Time 10/25/19 21 Blood Draw/OPERATIONS CHIEF/PSA RESULTS completed Momo baez MD, PHD [address] [place] [address],[address], [place], [address], [facility] 10/24/2020 10:45:26 05/01/19 21 Blood Draw/OPERATIONS CHIEF/PSA RESULTS completed Momo baez MD, PHD [address] [place] [address],[address], [address], [facility] 05/01/2020 10:40:25 01/02/20 20 Blood Draw/OPERATIONS CHIEF/PSA RESULTS completed Janice Ayala [facility] 01/02/2020 09:14:04 11/28/19 20 Choi Catheter Removal completed Caroline Smith [facility] 02/04/2020 12:00:10 Prostatectomy completed Momo baez MD, PHD [address] [place] [address],[address], [address], [facility] 10/24/2020 10:44:48 colonoscopy completed Monica Awan [facility] 12/09/2020 10:47:07 Imaging Results Imaging [...] Name and Address Organization Details Recorded Time [id number] silver medicatio n Not available Not available Not available 11/21/2019 [id number] 43 RxNorm Caroline Rojasyoandy kruger [facility] 0 11:09:54 [id number] adhesive tape environme nt,medica tion Not available Not available Not available 11/21/2019 Caroline Bobyoandy kruger [facility] 0 11:10:01 Medications Name Sig [...] Updated DateTime 01/02/2020 180.34 cm 39.3 kg/m2 924990.05 g Caroline Luis [facility] 01/02/2020 09:09:40 Date Recorded Body height Body mass index (BMI) Body weight Provider Name and Address Organization Details Last Updated DateTime 05/01/2020 180.34 cm 39.3 kg/m2 427240.05 g Momo baez MD, PHD [address] [place], [place] [address] [place] [address] 05/01/2020 10:39:59 Date Recorded Body height Body mass index (BMI) Body weight Provider Name and Address Organization Details Last Updated DateTime 10/24/2020 180.34 cm 39.7 kg/m2 057114.83 g Momo baez MD, PHD [address] [place] [address] 10/24/2020 10:44:13 Date Recorded Body height Body mass index (BMI) Body weight Provider Name and Address Organization Details Last Updated DateTime 11/21/2019 180.34 cm 39.3 kg/m2 918302.05 g Caroline Smith [facility] 11/21/2019 11:09:04 Social History Question Answer Notes LastModified by Organizat ion Details LastModified Time Tobacco Smoking Status Never Smoker Caroline kruger [facility] 11/21/2019 11:10:15 What Is Your Level Of [...] Diagnosis/Indication Diagnosis SNOMED-CT Code Diagnosis ICD10 Code [id number] Momo beard MD, PHD [facility] [address] [place] [address] 11/21/2019 10:45:55 11/21/2019 15:00:28 Malignant tumor of prostate 812771226 C61 [id number] Caroline Gneiting [facility] [employer] [place] [address] 11/28/2019 09:57:13 02/06/2020 03:54:17 [id number] Momo beard MD, PHD [facility] [employer] [facility] [address] [place] [address] 01/02/2020 08:46:59 01/02/2020 14:22:16 Malignant tumor of prostate 749598693 C61 [id number] Momo beard MD, PHD [facility] [employer] [facility] [address] [place] [address] 05/01/2020 09:26:51 05/01/2020 12:03:29 Malignant tumor of prostate 519606140 C61 Primary er ectile dysfunction 793580594 N52.9 [id number] Momo beard MD, PHD [facility] [employer] [facility] [address] [place] [address] 10/24/2020 10:28:04 10/27/2020 16:45:05 Carcinoma of prostate 995521833 C61 Malignant tumor of prostate 534193660 C61 Primary er ectile dysfunction 341982406 N52.9 Male urina ry stress incontinence 550001340 N39.3 Health Concerns Section Related Observation LastModified by Organization Detai ls LastModified Time None Recorded Concern Status LastModified by Organization Details LastModified Time None Recorded Advance Directives Directive None Recorded Payers Encounter Date Sequence Insurance Name Policy Number Policy Archibald Covered Member ID Archibald Member ID Guarantor Name 11/21/2019 1 [facility] [id number] Julien Gonsalvesretmaynor [id number] Julien Ridley 11/28/2019 1 [facility] [id number] Julien Gonsalvesretson [id number] Julien Ridley 01/02/2020 1 [facility] [id number] Julien Gonsalvesretson [id number] Julien Ridley 05/01/2020 1 [facility] [id number] Julien Gonsalvesretson [id number] Julien Ridley 10/24/2020 1 [facility] [id number] Julien Gonsalvesretson [id number] Julien Ridley Notes Date Note Type Note Provider Name and Address Organization Details Recorded Time 11/21/2019 text/html HPI Notes: 59M s /p RALP 11/06/19 for [id number] Heidy 3+4=7 prostate cancer (0/12 LN, -SMS) Overall doing well. Some drainage umbilical incision. Chronic LE edema worse especially R>L. Some hematuria when having BMs. No fever. Eating ok. Minimal pain. CT Cystogram today: small anastomotic leak PSA (07/27/19): 6.5 CONSTANZA: cT1c, 35g (J Carlos) MRI: none Biopsy (08/30/19): 23g, 3/12 cores (LLM, LMB, LMM Lucas 3+4=7 up to 40%) Pre-op ED: 05/09 Momo Holliday MD, PHD [address] [facility] [address], [place], [address], [facility] 11/21/2019 14:07:42 01/02/2020 text/html HPI Notes: 59M with [id number] Heidy 3+4=7 prostate cancer (0/12 LN, -SMS) s/p RALP 11/06/19. Small anastomotic leak, catheter removed 11/28/19. Overall doing well. C/o some leakage with BMs and position changes. Uses multiple depends per day...... LE u/s to eval for dvt last visit was negative PSA Results 07/27/19: 6.5 01/02/20: <0.04 UF: 4/5 EF: 5/5 Pre-op EF: 2/5 Momo Holliday MD, PHD [address] [place] [address],[address], [address], [facility] 01/02/2020 09:35:54 05/01/2020 text/html HPI Notes: 60M with [id number] Lucas 3+4=7 prostate cancer (0/12 LN, -SMS) s/p RALP 11/06/19. Small anastomotic leak, catheter removed 11/28/19. Overall doing well. C/o some leakage with BMs and position changes. Uses 4ppd which is improvement. No problems with incisions. PSA Results 07/27/19: 6.5 01/02/20: <0.04 05/01/20: <0.04 UF: 3/5 EF: 5/5 Pre-op EF: 2/5 Momo Holliday MD, PHD [address] [place] [address], [phone], [facility] 05/01/2020 10:48:15 10/24/2020 text/html HPI Notes: 60M with [id number] Lucas 3+4=7 prostate cancer (0/12 LN, -SMS) s/p RALP 11/06/19 Overall doing well. C/o some leakage with BMs and position changes and sexual activity. Uses 4ppd still. No problems with incisions. PSA Results 07/27/19: 6.5 01/02/20: <0.04 05/01/20: <0.04 10/24/20: <0.04 UF: 3/5 EF: 5/5 Pre-op EF: 2/5 Momo Holliday MD, PHD [address] [place] [address],[place] [address], [place], [address], [facility] 10/24/2020 11:30:55
--- OUTSIDE RECORDS SUMMARY | 2024-02-03 07:51 | XMS_ITS | Referral Summary ---
Author Organization [facility] Address [address] [place] [address] Care Team Providers Care Television Production Assistant Name Role Phone Munir Sahu MD Primary Care Provider + [phone] Allergies Active Allergy Reactions Criticality Noted Date [...] Plan of Treatment Not on file Insurance [facility] Advance Directives For more information, please contact: [phone] * Full Code (Latest Code Status on File) Date Activated Date Inactivated Comments 11/06/2019 2:19 PM 11/07/2019 9:06 PM All basic and advanced life-sustaining interventions are performed as appropriate Question Answer Comments Code status determined by: Unable to det ermine; FULL CODE until documents or legal decision maker available Care Teams Television Production Assistant Relationship Specialty Start Date End Date Munir Sahu MD PCP - General Family Practice 10/22/19
--- OUTSIDE RECORDS SUMMARY | 2024-02-03 07:51 | XMS_ITS | Clinical Summary ---
Author Organization [facility] Address [address] [place] [address] Care Team Providers Care Emery Grinder Name Role Phone Munir Sahu MD Primary Care Provider + [phone] Allergies Active Allergy Reactions Criticality Noted Date [...] Plan of Treatment Not on file Insurance [facility] Advance Directives For more information, please contact: [phone] * Full Code (Latest Code Status on File) Date Activated Date Inactivated Comments 11/06/2019 2:19 PM 11/07/2019 9:06 PM All basic and advanced life-sustaining interventions are performed as appropriate Question Answer Comments Code status determined by: Unable to det ermine; FULL CODE until documents or legal decision maker available Care Teams Emery Grinder Relationship Specialty Start Date End Date Munir Sahu MD PCP - General Family Practice 10/22/19
--- OUTSIDE RECORDS SUMMARY | 2024-02-03 07:52 | XMS_ITS | Encounter Summary ---
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 11/07/2019 blood-glucose meter kit Use to test blood glucose 4 times daily. 09/22/2017 elastic bandage bandage 12 10/03/2017 FreeStyle João 14 Day [place] misc 02/17/2021 FreeStyle João 14 Day Sensor [...] Primary documented in this encounter Care Teams Play Reader Relationship Specialty Start Date End Date Elsewhere, Pcp PCP - General Family Medicine 06/15/17 documented as of this encounter
--- OUTSIDE RECORDS SUMMARY | 2024-02-03 07:52 | XMS_ITS | Referral Summary ---
Author Organization [facility] Address [address] [place] [address] Care Team Providers Care Wholesale Parts Salesperson Name Role Phone Elsewhere, Pcp Primary Care Provider Unavailabl e Source Comments Patient records contain information from all sites at [facility]. For routine questions regarding patient records, call [phone] during business hours, M-F 8:00 AM - 5:00 PM Central Time. Record requests for emergency care only can be directed to [phone] at any time.[facility] Allergies Active Allergy Reactions Criticality Noted Date Comments Dimethicone-Petrolatum Rash 02/01/2014 Horse [place] Rash 07/16/2016 Silver Sulfate-Foam Bandage Rash 02/02/20 [...] mouth. 0 Active FreeStyle João 14 Day [place] misc 1 Active FreeStyle João 14 Day [...] on file Legal Sex Male 11:54 PM TOTER Gender Identity Not on file Sexual Orientation Not on file Last Filed Vital Signs Vital Sign Reading Time Taken Comments Blood Pressure 160/85 04/17/2021 1:03 PM TOTER Pulse 74 04/17/2021 1:03 PM TOTER Temperature 36.4 ??C (97.5 ??F) 04/17/2021 1:03 PM CS T Respiratory Rate 14 02/15/2021 1:17 PM TOTER Oxygen Saturation 95% 02/15/2021 1:17 PM TOTER Inhaled Oxygen Concentration - - Weight 138 kg (304 lb 3.8 oz) 04/17/2021 1:03 PM TOTER Height 178 cm (5' 10.08) 04/17/2021 1:03 PM TOTER Body Mass Index 43.55 04/17/2021 1:03 PM TOTER Plan of Treatment Not on file Procedures [...] Avery M.D. LAB BLOOD ADD-ON Final Result POWERCHART * (ABNORMAL) Lipid Panel (01/08/2014 10:16 [...] BLOOD ADD-ON Final Result Performing Organization Address City/[facility] Phone Number POWERCHART * (ABNORMAL) CMP (Comprehensive Metabolic Panel) (01/08/2014 10:16 AM CDT) Alkaline Phosphatase, S 103 45 - 115 UNITL POWERCHART Alanine Amniotransferase, LD 43 7 - 55 UNITL POWERCHART Aspartate Aminotransferase (AST), S 43 8 - 48 UNITL POWERCHART Bilirubin, Total, S 0.6 0.1 - 1.0 MGDL POWERCHART BUN (Blood Urea Nitrogen), S 14 8 - 24 MGDL POWERCHART Chloride, S 101 98 - 107 MMOLL POWERCHART CO2 Total 30(H) 22 - 29 MMOLL POWERCHART Creatinine 0.8 0.8 - 1.3 MGDL POWERCHART Glucose, Fasting, S 168(H) 70 - 99 MGDL POWERCHART Total Protein, S 6.7 6.3 - 7.9 GDL POWERCHART Calcium, Total, S 9.4 8.6 - 10.3 MGDL POWERCHART Sodium, S 140 135 - 145 MMOLL POWERCHART Potassium, S 4.6 3.6 - 5.2 MMOLL POWERCHART Albumin, S 3.9 3.2 - 5.2 GDL POWERCHART HXeGFR (MDRD) >60 >=60 [id number] 2 POWERCHART eGFR Black/ >60 >=60 [id number] 2 POWERCHART Blood 01/08/2014 10:1 6 AM CDT Curtis Avery M.D. LAB BLOOD ADD-ON Final Result POWERCHART from Last 3 Months or Most Recently Relevant to Health Maintenance Insurance [facility] [place] [id number] Care Teams Wholesale Parts Salesperson Relationship Specialty Start Date End Date Elsewhere, Pcp PCP - General Family Medicine 06/15/17
--- OUTSIDE RECORDS SUMMARY | 2024-02-03 07:52 | XMS_ITS ---
Author Organization [facility] Address [address] [place] [address] Care Team Providers Care It Sales Executive Name Role Phone Unavailable Unavailable Unavailable Surgery Details Not on file Complications Check Surgery Details section. Procedure Estimated Blood Loss Check Surgery Details section. Procedure Findings Check Surgery Details section. Procedure Specimens Taken Check Surgery Details section.
--- OUTSIDE RECORDS SUMMARY | 2024-02-03 07:52 | XMS_ITS | Clinical Summary ---
Author Organization [facility] Address [address] [place] [address] Care Team Providers Care Color Maker Name Role Phone Elsewhere, Pcp Primary Care Provider Unavailabl e Source Comments Patient records contain information from all sites at [facility]. For routine questions regarding patient records, call [phone] during business hours, M-F 8:00 AM - 5:00 PM Central Time. 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 Gender Identity Not on file Sexual Orientation Not on file Last Filed Vital Signs Vital Sign Reading Time Taken Comments Blood Pressure 160/85 04/17/2021 1:03 PM WATER RESOURCES PROGRAM DIRECTOR Pulse 74 04/17/2021 1:03 PM WATER RESOURCES PROGRAM DIRECTOR Temperature 36.4 ??C (97.5 ??F) 04/17/2021 1:03 PM CS T Respiratory Rate 14 02/15/2021 1:17 PM WATER RESOURCES PROGRAM DIRECTOR Oxygen Saturation 95% 02/15/2021 1:17 PM WATER RESOURCES PROGRAM DIRECTOR Inhaled Oxygen Concentration - - Weight 138 kg (304 lb 3.8 oz) 04/17/2021 1:03 PM WATER RESOURCES PROGRAM DIRECTOR Height 178 cm (5' 10.08) 04/17/2021 1:03 PM WATER RESOURCES PROGRAM DIRECTOR Body Mass Index 43.55 04/17/2021 1:03 PM WATER RESOURCES PROGRAM DIRECTOR Plan of Treatment Health Maintenance Due Date Last Done Comments CT Colonography 1961 Cologuard 1961 Colonoscopy 1961 Colorectal Cancer Screening 1961 Diabetic Office Visit with Foot Exam 1961 Dilated Eye Exam 1961 FIT 1961 HIV Screening 1961 Hepatitis C Screening 1961 Office Visit for Blood Pressure Check / Re-check 1961 Urine Albumin 1961 Zoster Vaccines (1 of 2) 2011 Depression Screening (Annual PHQ-2) 04/04/2023 COVID-19 Vaccine ( - season) 2023 02/06/2021, 07/10/2020, 06/12/2020 Influenza Vaccine (#1) 2024 , 05/15/2018, 01/23/2016, Additional history exists Hemoglobin A1C 03/19/2024 09/18/2023, 01/08/2014 Lipid (Cholesterol) Screening 09/17/2024 09/18/2023, 01/08/2014 Creatinine Level (Kidney Function Test) 10/27/2024 10/28/2023, 10/26/2023, 10/20/2023, Additional history exists Potassium Level 10/27/2024 10/28/2023, 072 07/2023, 10/20/2023, Additional history exists Sodium Level 10/27/2024 10/28/2023, 10/03, 10/20/2023, Additional history exists Pneumococcal vaccine (0-64 years) (3 of 3 - PPSV23 or PCV20) 2026 01/15/2021, 05/15/2018 DTaP,Tdap,and Td Vaccines (2 - Td or Tdap) 09/27/2027 09/26/2017 IPV Vaccines Aged Out No longer eligi ble based [...] PM CDT Curtis Avery M.D. LAB BLOOD ADD-ON Final Result Performing Organization Address [facility] de Phone Number POWERCHART * [...] BLOOD ADD-ON Final Result Performing Organization Address [facility] de Phone Number POWERCHART * (ABNORMAL) CMP [...] 5.2 GDL POWERCHART HXeGFR (MDRD) >60 >=60 [id number] 2 POWERCHART eGFR Black/ >60 >=60 [id number] POWERCHART Blood 01/08/2014 10:1 6 AM CDT Curtis Avery M.D. LAB BLOOD ADD-ON Final Result POWERCHART from Last 3 Months or Most Recently Relevant to Health Maintenance Insurance [facility] [address] [place], [place] [id number] Care Teams Color Maker Relationship Specialty Start Date End Date Elsewhere, Pcp PCP - General Family Medicine 06/15/17
--- OUTSIDE RECORDS SUMMARY | 2024-02-03 07:52 | XMS_ITS | Clinical Summary ---
Author Organization [facility] Address [place], [place] [address] Care Team Providers Care Social Welfare Administrator Name Role Phone Munir Sahu MD Primary Care Provider + [facility] [place], [place] Unavailable [phone] Allergies Active Allergy Reactions Criticality Noted Date [...] Diagnosed Date Coronary artery disease invo lving chilkat coronary artery without angina pectoris 10/28/2023 Overview [...] Encounters Date Type Department Care Team Description 02/02/2024 6:56 AM CDT - 02/02/2024 11:59 PM CDT Hospital Encounter [facility] [address] [place] [address] 02/02/2024 Travel 02/01/2024 6:56 AM CDT - 02/01/2024 11:59 PM CDT Hospital Encounter [facility] [address] [place] [address] 02/01/2024 Travel 01/30/2024 7:00 AM CDT - 01/30/2024 11:59 PM CDT Hospital Encounter [facility] [address] [place] [address] 01/30/2024 Travel 01/25/2024 6:59 AM CDT - 01/25/2024 11:59 PM CDT Hospital Encounter [facility] [address] [place] [address] 01/25/2024 Travel 01/23/2024 7:00 AM CDT - 01/23/2024 11:59 PM CDT Hospital Encounter [facility] [address] [place] [address] 01/23/2024 Travel 01/19/2024 7:00 AM CDT - 01/19/2024 11:59 PM CDT Hospital Encounter [facility] [address] [place] [address] 01/19/2024 Travel 01/18/2024 6:57 AM CDT - 01/18/2024 11:59 PM CDT Hospital Encounter [facility] [address] [place] [address] 01/18/2024 Travel 01/16/2024 7:00 AM CDT - 01/16/2024 11:59 PM CDT Hospital Encounter [facility] [address] [place] [address] 01/16/2024 Travel 01/12/2024 6:58 AM CDT - 01/12/2024 11:59 PM CDT [facility] [address] [facility] [address] 01/12/2024 Travel 01/11/2024 6:56 AM CDT - 01/11/2024 11:59 PM CDT [facility] [address] [facility] [address] 01/11/2024 Travel 01/05/2024 6:56 AM CDT - 01/05/2024 11:59 PM CDT [facility] [address] [facility] [address] 01/05/2024 Travel 01/04/2024 6:56 AM CDT - 01/04/2024 11:59 PM CDT Hospital Encounter [facility] [address] [place] [address] 01/04/2024 Travel 01/02/2024 7:00 AM CDT - 01/02/2024 11:59 PM CDT Hospital Encounter [facility] [address] [place] [address] 01/02/2024 Travel 12/22/2023 6:51 AM CDT - 12/22/2023 11:59 PM CDT Hospital Encounter [facility] [address] [place] [address] 12/22/2023 Travel 12/21/2023 6:51 AM CDT - 12/21/2023 11:59 PM CDT Hospital Encounter [facility] [address] [place] [address] 12/21/2023 Travel 12/19/2023 9:30 AM CDT Orders Only [facility] [address] [place] [address] 2 scans: (2-Ord) US VENOUS INSUFFICIENCY LOWER EXTREMITY BILATERAL ([id number]) 12/19/2023 7:30 AM CDT - 12/19/2023 11:59 PM CDT Hospital Encounter [facility] [address] [place], [place] [address] [address] 12/19/2023 Travel 12/15/2023 6:57 AM CDT - 12/15/2023 11:59 PM CDT Hospital Encounter [facility] [address] [facility] [place] [address] 12/15/2023 Travel 12/14/2023 6:54 AM CDT - 12/14/2023 11:59 PM CDT Hospital Encounter [facility] [address] [place] [address] 12/14/2023 Travel 12/13/2023 1:30 PM CDT Office Visit [facility] [address] [place] [address] Kamran Li MD Follow Up (Dr. Li [...] - 12/13/2023 11:59 PM CDT Hospital Encounter [facility] [address] [place] [address] Kamran Li MD CAD, multiple vessel; S/p 3V CABG (SHER-LAD, LISA-ramus, radial-OM), 09/23/2023 12/13/2023 Travel 12/12/2023 7:00 AM CDT - 12/12/2023 11:59 PM CDT Hospital Encounter [facility] [address] [place] [address] 12/12/2023 Telephone [facility] [address] [place] [address] Yeni, Gina Cardiovascular Diagnostic Testing (lvm to confirm 12/13/23 stress test appt) 12/12/2023 Travel 12/08/2023 6:56 AM CDT - 12/08/2023 11:59 PM CDT Hospital Encounter [facility] [address] [place] [address] 12/08/2023 Travel 12/07/2023 6:52 AM CDT - 12/07/2023 11:59 PM CDT Hospital Encounter [facility] [address] [place] [address], [place] [address] 12/07/2023 Travel 12/01/2023 6:55 AM CDT - 12/01/2023 11:59 PM CDT Hospital Encounter [facility] [address] [place] [address], [place] [address] 12/01/2023 Travel 11/30/2023 6:55 AM CDT - 11/30/2023 11:59 PM CDT Hospital Encounter [facility] [address] [place] [address], [place] [address] 11/30/2023 Travel 11/29/2023 9:09 AM CDT - 11/29/2023 11:59 PM CDT Hospital Encounter [facility] [address] [place] [address], [place] [address] Alejandra Lau PA S/p 3V CABG (SHER-LAD, LISA-ramus, radial-OM), 09/23/2023 11/29/2023 Travel 11/28/2023 7:30 AM CDT Home Care Visit [facility] [address] [place] [phone] Elvira Reyes, RN SN - OASIS DISCHARGE 11/22/2023 10:45 AM CDT Home Care Visit [facility] [address] [place] [phone] Tyson Mejias, PT PT - DISCIPLINE DISCHARGE 11/21/2023 10:00 AM CDT Home Care Visit [facility] [address] [place] [phone] Irma Hollins, RN SN - HOME VISIT 11/17/2023 7:30 AM CDT Home Care Visit [facility] [address] [place] [phone] Tyson Mejias, PT PT - HOME VISIT 11/15/2023 8:30 AM CDT Home Care Visit [facility] [address] [place] [phone] Tyson Mejias, PT PT - HOME VISIT 11/14/2023 8:30 AM CDT Home Care Visit [facility] [address] [place] [phone] Elvira Reyes RN SN - HOME VISIT 11/14/2023 3:30 AM CDT Home Care Visit [facility] [address] [place] [phone] Ailyn Varghese RN SN - WOUND/OSTOMY CHART CONSULT 11/11/2023 Telephone [facility] [address] [place] [address] Anibal Qiugley MD Referral 11/10/2023 8:00 AM CDT Home Care Visit [facility] [address] [place] [phone] Tyson Mejias, PT PT - HOME VISIT 11/09/2023 10:00 AM CDT Home Care Visit [facility] [address] [place] [phone] Isa Cintron RN SN - HOME VISIT 11/09/[address] [facility] [address] [place] [address] Antoinette Lopez PA <No scans attached> 11/08/2023 Home Care Visit [facility] [address] [place] [phone] Tyson Mejias, PT CARE COORDINATION 11/07/2023 8:15 AM CDT Home Care Visit [facility] [address] [place], [place] [address], [place] [phone] Tyson Mejias, PT PT - INITIAL ASSESSMENT 11/07/2023 7:30 AM CDT Home Care Visit [facility] [address] [place] [phone] Lexi Esteves, CHITRA SN - HOME VISIT 11/04/2023 Home Care Visit [facility] [address] [place] [phone] Elvira Reyes RN CARE COORDINATION 11/04/2023 Telephone [facility] [address] [facility] [address] [place], [place] [phone] Gregorio Leal MD Medication Management (amlodipine) from Last 3 Months Family History Medical History Relation Name Comments Coronary artery disease Father Relation Name Status Comments Father Social History Tobacco Use Types Packs/Day Years Used Date Smoking Tobacco: Never Smokeless Tobacco: Never Alcohol Use Standard Drinks/Week Comments Yes 0 (1 standard drink = 0.6 oz pur e alcohol) occasional Social Connections Answer Date Recorded Do you often feel lonely or isolated from those around you? 0 09/18/2023 Financial Resource Strain Answer Date R ecorded Difficulty of Paying Living Expenses 3 09/18/2023 Difficulty of Paying Living Expenses Not on file 09/18/2023 Food Insecurity Answer Date Recorded Do you worry your food will run out before you are able to buy more? 1 09/18/2023 Transportation Needs Answer Date Record ed Does lack of transportation keep you from medica l appointments? 1 09/18/2023 Does lack of transportation keep you from work, meetings or getting things that you need? 1 09/18/2023 Housing Stability Answer Date Recorded [...] Care Team (Late st Contact Info) Description 02/06/2024 7:00 AM RETREADER Appointment [facility] [address] [place] [address] 02/08/2024 7:00 AM RETREADER Appointment [facility] [address] [place] [address] 02/09/2024 7:00 AM RETREADER Appointment [facility] [address] [place] [address] 02/13/2024 7:00 AM RETREADER Appointment [facility] [address] [place] [address] 02/15/2024 7:00 AM RETREADER Appointment [facility] [address] [place] [address] 02/16/2024 7:00 AM RETREADER Appointment [facility] [address] [place] [address] 02/20/2024 7:00 AM RETREADER Appointment [facility] [address] [place] [address] 02/27/2024 Procedure Only [address] [place] [phone] Health Maintenance Due Date Last Done Comments Pneumococcal series for age 6-64 (1 of 2 - PCV) 1967 Tdap 02/08/1972 Depression screening for age 12+ 1973 HIV for age 15-65 02/08/1976 Hepatitis C screening for age 18-79 1979 Tetanus booster 1981 Colonoscopy through age 75 2006 Zoster (shingles) series for age 50+ (1 of 2) 2011 COVID-19 vaccine series (2023-25 season) 2023 02/06/2021, 07/10/2020, 06/12/2020 Influenza for age 50-64 12/04/2023 BMI (ht and wt on same day) for age 18+ 12/12/2024 12/13/2023, 10/20/2023 Lipids for age 45-75 09/17/2028 09/18/2023 Procedures Procedure Name Priority Date/Time Associated Diagnosis Comments SCAN-CARDIAC REHABILITATION 02/02/2024 7:02 AM CDT SCAN-CARDIAC REHABILITATION 02/01/2024 7:01 AM CDT SCAN-CARDIAC REHABILITATION 01/30/2024 7:08 AM CDT SCAN-CARDIAC REHABILITATION 01/25/2024 7:04 AM CDT SCAN-CARDIAC [...] CDT SCAN-CARDIAC REHABILITATION 11/29/2023 10:47 AM CDT LIPID PANEL Early AM 09/18/2023 4:17 AM CDT from Last 3 Months or Most Recently Relevant to Health Maintenance Results * SCAN-CARDIAC REHABILITATION (02/02/2024 7:02 AM CDT) Only the most recent of25 resultswithin the time period is included. Scanner OTHER * (ABNORMAL) GLUCOSE METER (01/12/2024 7:52 AM CDT) Only the most recent of8 resultswithin the time period is included. [facility] Signature GLUCOSE METER 154(H) 65 - 100 mg/dL 01/12/2024 7:57 AM CDT [facility] Blood BLOOD SPECIMEN / Unknown 01/12/2024 7:52 AM CDT 01/12/2024 7:57 AM CDT Doctor Unknown CHEMISTRY Performing Organization Address City/State/[facility] Co de Phone Number [facility] [address] [phone] * US VENOUS INSUFFICIENCY LOWER EXTREMITY BILATERAL (12/19/2023 1:21 PM CDT) Anatomical Region Laterality Modality LEGS Ultrasound 12/19/2023 9:22 AM CDT Narrative 12/19/2023 5:10 PM CDT VASCULAR ULTRASOUND REPORT JOSE GUADALUPE RIDLEY Accession#: ?? [id number] : ?1960 ??Study Date: ?? 12/19/2023 9:22:18 AM Age: ?63 years ?? Tech: ? PMK Gender: M ?Referring MD: ANTOINETTE LOPEZ Site: [facility] Study performed: ?Duplex US venous insufficiency, [...] and distal calf. 5. Incompetent varicose and/or compliance review specialist veins as listed below. COMPARISON: No prior [...] Accreditation Commission (IAC/Vascular), www.intersocietal.org/vascular Report generated by [employer]. ??Final ?? Procedure Note Anderson Petersen MD - 12/19/2023 VASCULAR ULTRASOUND REPORT JOSE GUADALUPE RIDLEY : 1960 Study Date: 12/19/2023 9:22:18 AM Age: 63 years Tech: PMK Gender: M Referring MD: ANTOINETTE LOPEZ Site: [facility] Study performed: Duplex US venous insufficiency, [...] and distal calf. 5. Incompetent varicose and/or compliance review specialist veins as listed below. COMPARISON: No prior [...] theIntersocietal Accreditation Commission (IAC/Vascular),www.intersocietal.org/vascular Report generated by [employer]. Final Antoinette FAJARDO * NM CARDIAC MPI STRESS TEST (12/13/2023 10:08 AM CDT) Anatomical Region Laterality Modality HEART Nuclear Medicine 12/13/2023 7:07 AM CDT Narrative 12/13/2023 12:[address] PM CDT [address], [place] [address] Main: ?Myocardial Perfusion Report ?Rest/Stress 1 Day Single Isotope Gated SPECT imaging with Regadenoson(Lexiscan) stress JOSE GUADALUPE RIDLEY ID: [id number] Age: 63 : 1960 Nuclear Tech: KKD Exam Date: 12/13/2023 07:07 Gender: M RN/Ex. Laboratory Sample Carrier: HANG/TYLER Height: 70.9 in BSA: 2.43 m?? Monitoring Provider: KARY AIKEN Weight: 280 lbs BMI: 39.2 kg/m?? Ordering Provider: KAMRAN LI Location: [facility] Indication: S/P CABG x 3; CAD, [...] / 60 % MPHR: 51 Double Product: [id number] Recovery HR(bpm): 71 Recovery BP(mmHg): 124 / [...] 0 Apical Lateral: 0 Apical Lateral: 0 [place] Landing: 0 [place]s [place]ing: 0 Summed Stress Score: 2 Summed Rest [...] left ventricular wall motion. Anderson ??Lolis NOBLES [facility] Accredited Site (Electronically Signed) Final Date: 13 December 2023 12:48 ICD-10 Codes: Z95.1; I25.10 CC Providers: Dr. Munir Sahu Procedure Note Anderson Danielle MD - 12/13/[address], [place] [address] Main: Myocardial Perfusion Report Rest/Stress 1 Day Single Isotope Gated SPECT imaging withRegadenoson(Lexiscan) stress JOSE GUADALUPE RIDLEY ID: [id number] Age: 63 : 1960 Nuclear Tech: KKD Exam Date: 12/13/2023 07:07 Gender: M RN/Ex. Laboratory Sample Carrier: HANG/TYLER Height: 70.9 in BSA: 2.43 m?? Monitoring Provider:KARY AIKEN Weight: 280 lbs BMI: 39.2 kg/m?? Ordering Provider: KAMRAN LI Location: [facility] Indication: S/P CABG x 3; CAD, [...] 142 / 60 % MPHR: 51 Double Product:[id number] Recovery HR(bpm): 71 Recovery BP(mmHg): 124 / [...] 0 Apical Lateral: 0 Apical Lateral: 0 [place]: 0 [place]ing: 0 Summed Stress Score: 2 Summed Rest [...] left ventricular wall motion. Anderson Danielle MD [facility] Accredited Site (Electronically Signed) Final Date: 13 December 2023 12:48 ICD-10 Codes: Z95.1; I25.10 CC Providers: Dr. Munir Sahu Kamran Li MD NM * LIPID PANEL (09/18/2023 4:17 AM [facility]) [facility] CHOLESTEROL,TOTAL 174 100 - 199 mg/dL 09/18/2023 4:54 AM [facility] Comment: Cholesterol, Total Reference Ranges Desirable <200 mg/dL Borderline 200-239 mg/dL High >=240 mg/dL TRIGLYCERIDES 105 <150 mg/dL 09/18/2023 4:54 AM [facility] HDL CHOLESTEROL 42 >40 mg/dL 4:54 AM [facility] NON-HDL CHOLESTEROL 132 <145 mg/dl 09/18/2023 4:54 AM [facility] CHOL/HDL RATIO 4.14 <4.50 09/18/2023 4:54 AM [facility] LDL CHOLESTEROL 111 <=130 mg/dL 09/18/2023 4:54 AM [facility] VLDL CHOLESTEROL 21 <=30 mg/dL 09/18/2023 4:54 AM [facility] PROVIDER ORDERED STATUS RANDOM 09/18/2023 4:54 AM [facility] Blood BLOOD SPECIMEN / Unknown Venipuncture / Unknown 09/18/2023 4:17 AM CDT 09/18/2023 4:27 AM CDT Wendy Lomeli DO CHEMISTRY [facility] SENDOUT INTERNAL ZIP [id number] [place] [address] from Last 3 Months or Most Recently [...] Code Status Discussion: Not Discussed Care Teams Social Welfare Administrator Relationship Specialty Start Date End Date Munir Sahu MD [address] [place] [address] PCP - General Family Practice 09/17/23 [facility] [address] [place] [address] 09/28/23
== END 2024-02-03 07:50 | disposition home or self-care (01) ==
PROVIDERS: PCP Family Medicine; Visit Provider Nurse Practitioner Family
DX: I87.312 Chronic venous hypertension (idiopathic) with ulcer of left lower extremity (principal); E11.622 Type 2 diabetes mellitus with other skin ulcer; L97.322 Non-pressure chronic ulcer of left ankle with fat layer exposed; I89.0 Lymphedema, not elsewhere classified; Z79.4 Long term (current) use of insulin
CPT/HCPCS: 15271; Q4101

== ENCOUNTER 2024-02-06 08:41 | Outpatient (CLI) | payer OTHER, SELFPAY ==
--- OUTSIDE RECORDS SUMMARY | 2024-02-06 08:47 | XMS_ITS | Clinical Summary ---
Author Organization [facility] Address [address] [place] [address] Care Team Providers Care Fitter And Turner Name Role Phone Elsewhere, Pcp Primary Care Provider Unavailabl e Source Comments Patient records contain information from all sites at [facility]. For routine questions regarding patient records, call [phone] during business hours, M-F 8:00 AM - 5:00 PM Central Time. Record requests for emergency care only can be directed to [phone] at any time.[facility] Allergies Active Allergy Reactions Criticality Noted Date Comments Dimethicone-Petrolatum Rash 02/01/2014 Horse [place] Rash 07/16/2016 Silver Sulfate-Foam Bandage Rash 02/02/20 [...] mouth. 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 Gender Identity Not on file Sexual Orientation Not on file Last Filed Vital Signs Vital Sign Reading Time Taken Comments Blood Pressure 160/85 04/17/2021 1:03 PM LEVEL VIAL INSPECTOR Pulse 74 04/17/2021 1:03 PM LEVEL VIAL INSPECTOR Temperature 36.4 ??C (97.5 ??F) 04/17/2021 1:03 PM CS T Respiratory Rate 14 02/15/2021 1:17 PM LEVEL VIAL INSPECTOR Oxygen Saturation 95% 02/15/2021 1:17 PM LEVEL VIAL INSPECTOR Inhaled Oxygen Concentration - - Weight 138 kg (304 lb 3.8 oz) 04/17/2021 1:03 PM LEVEL VIAL INSPECTOR Height 178 cm (5' 10.08) 04/17/2021 1:03 PM LEVEL VIAL INSPECTOR Body Mass Index 43.55 04/17/2021 1:03 PM LEVEL VIAL INSPECTOR Plan of Treatment Health Maintenance Due [...] BLOOD ADD-ON Final Result Performing Organization Address [facility] de Phone Number POWERCHART * (ABNORMAL) Lipid [...] BLOOD ADD-ON Final Result Performing Organization Address [facility] de Phone Number POWERCHART * (ABNORMAL) CMP [...] 5.2 GDL POWERCHART HXeGFR (MDRD) >60 >=60 [id number] 2 POWERCHART eGFR Black/ >60 >=60 [id number] 2 POWERCHART Blood 01/08/2014 10:1 6 AM CDT Curtis Avery M.D. LAB BLOOD ADD-ON Final Result POWERCHART from Last 3 Months or Most Recently Relevant to Health Maintenance Insurance [facility] [address] [address] [place], [place] [id number] Care Teams Fitter And Turner Relationship Specialty Start Date End Date Elsewhere, Pcp PCP - General Family Medicine 06/15/17
--- OUTSIDE RECORDS SUMMARY | 2024-02-06 08:47 | XMS_ITS | Clinical Summary ---
Author Organization [email or web address] [facility] Address [place], [place] [address] Care Team Providers Care Air Brake Adjuster Name Role Phone Munir Sahu MD Primary Care Provider + [facility] [place] Unavailable [phone] Allergies Active Allergy Reactions Criticality Noted Date [...] by insurance) 9 mL 09/28/2023 Active Insulin [place], Disposable, (Susana Pen Needle) 32 gauge x [...] Diagnosed Date Coronary artery disease invo lving morongo coronary artery without angina pectoris 10/28/2023 Overview [...] - 02/02/2024 11:59 PM CDT Hospital Encounter [facility] [address] [place] [address] 02/02/2024 Travel 02/01/2024 6:56 AM CDT - 02/01/2024 11:59 PM CDT Hospital Encounter [facility] [address] [place] [address] 02/01/2024 Travel 01/30/2024 7:00 AM CDT - 01/30/2024 11:59 PM CDT Hospital Encounter [facility] [address] [place] [address] 01/30/2024 Travel 01/25/2024 6:59 AM CDT - 01/25/2024 11:59 PM CDT Hospital Encounter [facility] [address] [place] [address] 01/25/2024 Travel 01/23/2024 7:00 AM CDT - 01/23/2024 11:59 PM CDT Hospital Encounter [facility] [address] [place] [address] 01/23/2024 Travel 01/19/2024 7:00 AM CDT - 01/19/2024 11:59 PM CDT Hospital Encounter [facility] [address] [place] [address] 01/19/2024 Travel 01/18/2024 6:57 AM CDT - 01/18/2024 11:59 PM CDT Hospital Encounter [facility] [address] [place] [address] 01/18/2024 Travel 01/16/2024 7:00 AM CDT - 01/16/2024 11:59 PM CDT Hospital Encounter [facility] [address] [place] [address] 01/16/2024 Travel 01/12/2024 6:58 AM CDT - 01/12/2024 11:59 PM CDT Hospital Encounter [facility] [address] [facility] [address] 01/12/2024 Travel 01/11/2024 6:56 AM CDT - 01/11/2024 11:59 PM CDT Hospital Encounter [facility] [address] [facility] [address] 01/11/2024 Travel 01/05/2024 6:56 AM CDT - 01/05/2024 11:59 PM CDT Hospital Encounter [facility] [address] [facility] [address] 01/05/2024 Travel 01/04/2024 6:56 AM CDT - 01/04/2024 11:59 PM CDT Hospital Encounter [facility] [address] [place] [address] 01/04/2024 Travel 01/02/2024 7:00 AM CDT - 01/02/2024 11:59 PM CDT Hospital Encounter [facility] [address] [place] [address] 01/02/2024 Travel 12/22/2023 6:51 AM CDT - 12/22/2023 11:59 PM CDT Hospital Encounter [facility] [address] [place] [address] 12/22/2023 Travel 12/21/2023 6:51 AM CDT - 12/21/2023 11:59 PM CDT Hospital Encounter [facility] [address] [place] [address] 12/21/2023 Travel 12/19/2023 9:30 AM CDT Orders Only [facility] [address] [place] [address] 2 scans: (2-Ord) US VENOUS INSUFFICIENCY LOWER EXTREMITY BILATERAL ([id number]) 12/19/2023 7:30 AM CDT - 12/19/2023 11:59 PM CDT Hospital Encounter [facility] [address] [place], [place] [address] [address] 12/19/2023 Travel 12/15/2023 6:57 AM CDT - 12/15/2023 11:59 PM CDT Hospital Encounter [facility] [address] [facility] [address] 12/15/2023 Travel 12/14/2023 6:54 AM CDT - 12/14/2023 11:59 PM CDT Hospital Encounter [facility] [address] [facility] [place] [address] 12/14/2023 Travel 12/13/2023 1:30 PM CDT Office Visit [facility] [address] [place] [address] Kamran Li MD Follow Up (Dr. Li [...] - 12/13/2023 11:59 PM CDT Hospital Encounter [facility] [address] [place] [address] Kamran Li MD CAD, multiple vessel; S/p 3V CABG (SHER-LAD, LISA-ramus, radial-OM), 09/23/2023 12/13/2023 Travel 12/12/2023 7:00 AM CDT - 12/12/2023 11:59 PM CDT Hospital Encounter [facility] [address] [place] [address] 12/12/2023 Telephone [facility] [address] [place] [address] Yeni, Gina Cardiovascular Diagnostic Testing (lvm to confirm 12/13/23 stress test appt) 12/12/2023 Travel 12/08/2023 6:56 AM CDT - 12/08/2023 11:59 PM CDT Hospital Encounter [facility] [address] [place] [address] 12/08/2023 Travel 12/07/2023 6:52 AM CDT - 12/07/2023 11:59 PM CDT Hospital Encounter [facility] [address] [place] [address], [place] [address] 12/07/2023 Travel 12/01/2023 6:55 AM CDT - 12/01/2023 11:59 PM CDT Hospital Encounter [facility] [address] [place] [address], [place] [address] 12/01/2023 Travel 11/30/2023 6:55 AM CDT - 11/30/2023 11:59 PM CDT Hospital Encounter [facility] [address] [place] [address], [place] [address] 11/30/2023 Travel 11/29/2023 9:09 AM CDT - 11/29/2023 11:59 PM CDT Hospital Encounter [facility] [address] [place] [address], [place] [address] Alejandra Lau PA S/p 3V CABG (SHER-LAD, LISA-ramus, radial-OM), 09/23/2023 11/29/2023 Travel 11/28/2023 7:30 AM CDT Home Care Visit [facility] [address] [place] [phone] Elvira Reyes, RN SN - OASIS DISCHARGE 11/22/2023 10:45 AM CDT Home Care Visit [facility] [address] [place] [phone] Tyson Mejias, PT PT - DISCIPLINE DISCHARGE 11/21/2023 10:00 AM CDT Home Care Visit [facility] [address] [place] [phone] Irma Hollins, RN SN - HOME VISIT 11/17/2023 7:30 AM CDT Home Care Visit [facility] [address] [place] [phone] Tyson Mejias, PT PT - HOME VISIT 11/15/2023 8:30 AM CDT Home Care Visit [facility] [address] [place] [phone] Tyson Mejias, PT PT - HOME VISIT 11/14/2023 8:30 AM CDT Home Care Visit [facility] [address] [place] [phone] Elvira Reyes RN SN - HOME VISIT 11/14/2023 3:30 AM CDT Home Care Visit [facility] [address] [place] [phone] Ailyn Varghese RN SN - WOUND/OSTOMY CHART CONSULT 11/11/2023 Telephone [facility] [address] [place] [address] Anibal Quigley MD Referral 11/10/2023 8:00 AM CDT Home Care Visit [facility] [address] [place] [phone] Tyson Mejias, PT PT - HOME VISIT 11/09/2023 10:00 AM CDT Home Care Visit [facility] [address] [place] [phone] Isa Cintron RN SN - HOME VISIT 11/09/2023 Orders Only [facility] [address] [place] [address] Antoinette Lopez PA <No scans attached> 11/08/2023 Home Care Visit [facility] [address] [place] [phone] Tyson Mejias, PT CARE COORDINATION 11/07/2023 8:15 AM CDT Home Care Visit [facility] [address] [place], [place] [address], [place] [address] Tyson Mejias, PT PT - INITIAL ASSESSMENT 11/07/2023 7:30 AM CDT Home Care Visit [facility] [address] [place] [address] Lexi Esteves, RN SN - HOME VISIT from Last [...] Care Team (Late st Contact Info) Description 02/08/2024 7:00 AM PRESS BRAKE OPERATOR Appointment [facility] [address] [place] [address] 02/09/2024 7:00 AM PRESS BRAKE OPERATOR Appointment [facility] [address] [place] [address] 02/13/2024 7:00 AM PRESS BRAKE OPERATOR Appointment [facility] [address] [place] [address] 02/15/2024 7:00 AM PRESS BRAKE OPERATOR Appointment [facility] [address] [place] [address] 02/16/2024 7:00 AM PRESS BRAKE OPERATOR Appointment [facility] [address] [place] [address] 02/20/2024 7:00 AM PRESS BRAKE OPERATOR Appointment [facility] [address] [place] [address] 02/27/2024 Procedure Only [address] [facility] [address] [place] [address] Health Maintenance Due Date Last Done Comments Pneumococcal series for age 6-64 (1 of 2 - PCV) 1967 Tdap 02/08/1972 Depression screening for age 12+ 1973 HIV for age 15-65 02/08/1976 Hepatitis C screening for age 18-79 1979 Tetanus booster 1981 Colonoscopy through age 75 2006 Zoster (shingles) series for age 50+ (1 of 2) 2011 COVID-19 vaccine series (2023- season) 2023 02/06/2021, 07/10/2020, 06/12/2020 Influenza for [...] of8 resultswithin the time period is included. GLUCOSE METER 154(H) 65 - 100 mg/dL 01/12/2024 7:57 AM CDT [facility] Blood BLOOD SPECIMEN / Unknown 01/12/2024 7:52 AM CDT 01/12/2024 7:57 AM CDT Doctor Unknown CHEMISTRY [facility] [address] [phone] * US VENOUS INSUFFICIENCY LOWER EXTREMITY BILATERAL (12/19/2023 1:21 PM CDT) Anatomical Region Laterality Modality LEGS Ultrasound 12/19/2023 9:22 AM CDT Narrative 12/19/2023 5:10 PM CDT VASCULAR ULTRASOUND REPORT JOSE GUADALUPE RIDLEY Accession#: ?? [id number] : ?1960 ??Study Date: ?? 12/19/2023 9:22:18 AM Age: ?63 years ?? Tech: ? PMK Gender: M ?Referring MD: ANTOINETTE LOPEZ Site: [facility] Study performed: ?Duplex US venous [...] and distal calf. 5. Incompetent varicose and/or wirer street light veins as listed below. COMPARISON: No prior [...] Accreditation Commission (IAC/Vascular), www.intersocietal.org/vascular Report generated by [employer]. ??Final ?? Procedure Note Anderson Petersen MD - 12/19/2023 VASCULAR ULTRASOUND REPORT JOSE GUADALUPE RIDLEY : 1960 Study Date: 12/19/2023 9:22:18 AM Age: 63 years Tech: PMK Gender: M Referring MD: ANTOINETTE LOPEZ Site: [facility] Study performed: Duplex US venous [...] and distal calf. 5. Incompetent varicose and/or wirer street light veins as listed below. COMPARISON: No prior [...] theIntersocietal Accreditation Commission (IAC/Vascular),www.intersocietal.org/vascular Report generated by [employer]. Final Antoinette FAJARDO * NM CARDIAC MPI STRESS TEST (12/13/2023 10:08 AM CDT) Anatomical Region Laterality Modality HEART Nuclear Medicine 12/13/2023 7:07 AM CDT Narrative 12/13/2023 12:48 PM CDT [address], [place] [address] Main: ?Myocardial Perfusion Report ?Rest/Stress 1 Day Single Isotope Gated SPECT imaging with Regadenoson(Lexiscan) stress JOSE GUADALUPE RIDLEY ID: [id number] Age: 63 : 1960 Nuclear Tech: KKD Exam Date: 12/13/2023 07:07 Gender: M RN/Ex. Supervisor Agricultural Education: HANG/TYLER Height: 70.9 in BSA: 2.43 m?? Monitoring Provider: KARY AIKEN Weight: 280 lbs BMI: 39.2 kg/m?? Ordering Provider: KAMRAN LI Location: [facility] Indication: S/P CABG x 3; CAD, [...] / 60 % MPHR: 51 Double Product: [id number] Recovery HR(bpm): 71 Recovery BP(mmHg): 124 / [...] 0 Apical Lateral: 0 Apical Lateral: 0 Hixton: 0 Hixton: 0 Summed Stress Score: 2 Summed Rest [...] left ventricular wall motion. Anderson ??Lolis NOBLES [facility] Accredited Site (Electronically Signed) Final Date: 13 December 2023 12:48 ICD-10 Codes: Z95.1; I25.10 CC Providers: Dr. Munir Sahu Procedure Note Anderson Danielle MD - 12/13/[address], [place] [address] Main: Myocardial Perfusion Report Rest/Stress 1 Day Single Isotope Gated SPECT imaging withRegadenoson(Lexiscan) stress JOSE GUADALUPE RIDLEY ID: [id number] Age: 63 : 1960 Nuclear Tech: KKD Exam Date: 12/13/2023 07:07 Gender: M RN/Ex. Supervisor Agricultural Education: LMP/CTL Height: 70.9 in BSA: 2.43 m?? Monitoring Provider:KARY AIKEN Weight: 280 lbs BMI: 39.2 kg/m?? Ordering Provider: KAMRAN LI Location: [facility] Indication: S/P CABG x 3; CAD, [...] 142 / 60 % MPHR: 51 Double Product:[id number] Recovery HR(bpm): 71 Recovery BP(mmHg): 124 / [...] 0 Apical Lateral: 0 Apical Lateral: 0 Hixton: 0 Hixton: 0 Summed Stress Score: 2 Summed Rest [...] left ventricular wall motion. Anderson Danielle MD [facility] Accredited Site (Electronically Signed) Final Date: 13 December 2023 12:48 ICD-10 Codes: Z95.1; I25.10 CC Providers: Dr. Munir Sahu Kamran Li MD [place] * LIPID PANEL (09/18/2023 4:17 AM CDT) CHOLESTEROL,TOTAL 174 100 - 199 mg/dL 09/18/2023 4:54 AM [facility] Comment: Cholesterol, Total Reference Ranges Desirable <200 mg/dL Borderline 200-239 mg/dL High >=240 mg/dL TRIGLYCERIDES 105 <150 mg/dL 09/18/2023 4:54 AM [facility] HDL CHOLESTEROL 42 >40 mg/dL 4:54 AM [facility] NON-HDL CHOLESTEROL 132 <145 mg/dl 09/18/2023 4:54 AM [facility] CHOL/HDL RATIO 4.14 <4.50 09/18/2023 4:54 AM [facility] LDL CHOLESTEROL 111 <=130 mg/dL 09/18/2023 4:54 AM [facility] VLDL CHOLESTEROL 21 <=30 mg/dL 09/18/2023 4:54 AM [facility] PROVIDER ORDERED STATUS RANDOM 09/18/2023 4:54 AM [facility] Blood BLOOD SPECIMEN / Unknown Venipuncture / Unknown 09/18/2023 4:17 AM CDT 09/18/2023 4:27 AM CDT Wendy Lomeli DO [facility] SENDOUT INTERNAL ZIP [address] [place] [phone] from Last 3 Months or Most Recently [...] Code Status Discussion: Not Discussed Care Teams Air Brake Adjuster Relationship Specialty Start Date End Date Munir Sahu MD [address] [place] [address] PCP - General Family Practice 09/17/23 [facility] [address] [place] [address] 09/28/23
--- OUTSIDE RECORDS SUMMARY | 2024-02-06 08:47 | XMS_ITS | Clinical Summary ---
Author Organization [facility] Address [address] [place] [address] Care Team Providers Care Gear Milling Machine Set Up Operator Name Role Phone Munir Sahu MD Primary Care Provider + [phone] Allergies Active Allergy Reactions Criticality Noted Date [...] Plan of Treatment Not on file Insurance [facility] Advance Directives For more information, please contact: [phone] * Full Code (Latest Code Status on File) Date Activated Date Inactivated Comments 11/06/2019 2:19 PM 11/07/2019 9:06 PM All basic and advanced life-sustaining interventions are performed as appropriate Question Answer Comments Code status determined by: Unable to det ermine; FULL CODE until documents or legal decision maker available Care Teams Gear Milling Machine Set Up Operator Relationship Specialty Start Date End Date Munir Sahu MD PCP - General Family Practice 10/22/19
--- OUTSIDE RECORDS SUMMARY | 2024-02-06 08:47 | XMS_ITS ---
Author Organization [facility] Address [address] [place] [address] Care Team Providers Care Pinsetter Mechanic Helper Name Role Phone Unavailable Unavailable Unavailable Surgery Details Not on file Complications Check Surgery Details section. Procedure Estimated Blood Loss Check Surgery Details section. Procedure Findings Check Surgery Details section. Procedure Specimens Taken Check Surgery Details section.
--- OUTSIDE RECORDS SUMMARY | 2024-02-06 08:47 | XMS_ITS | Referral Summary ---
Author Organization [facility] Address [address] [place] [address] Care Team Providers Care Jig Bore Operator Name Role Phone Munir Sahu MD Primary Care Provider + [phone] Allergies Active Allergy Reactions Criticality Noted Date [...] Plan of Treatment Not on file Insurance [facility] Advance Directives For more information, please contact: [phone] * Full Code (Latest Code Status on File) Date Activated Date Inactivated Comments 11/06/2019 2:19 PM 11/07/2019 9:06 PM All basic and advanced life-sustaining interventions are performed as appropriate Question Answer Comments Code status determined by: Unable to det ermine; FULL CODE until documents or legal decision maker available Care Teams Jig Bore Operator Relationship Specialty Start Date End Date Munir Sahu MD PCP - General Family Practice 10/22/19
--- OUTSIDE RECORDS SUMMARY | 2024-02-06 08:47 | XMS_ITS | Referral Summary ---
Author Organization [facility] Address [address] [place] [address] Care Team Providers Care Personal Lines Advisor Name Role Phone Elsewhere, Pcp Primary Care Provider Unavailabl e Source Comments Patient records contain information from all sites at [facility]. For routine questions regarding patient records, call [phone] during business hours, M-F 8:00 AM - 5:00 PM Central Time. Record requests for emergency care only can be directed to [phone] at any time.[facility] Allergies Active Allergy Reactions Criticality Noted Date Comments Dimethicone-Petrolatum Rash 02/01/2014 Horse Howell Rash 07/16/2016 Silver Sulfate-Foam Bandage Rash 02/02/20 [...] 0 Active FreeStyle João 14 Day [place] misc 1 Active FreeStyle João 14 Day [...] on file Legal Sex Male 11:54 PM WELFARE AIDE Gender Identity Not on file Sexual Orientation Not on file Last Filed Vital Signs Vital Sign Reading Time Taken Comments Blood Pressure 160/85 04/17/2021 1:03 PM WELFARE AIDE Pulse 74 04/17/2021 1:03 PM WELFARE AIDE Temperature 36.4 ??C (97.5 ??F) 04/17/2021 1:03 PM CS T Respiratory Rate 14 02/15/2021 1:17 PM WELFARE AIDE Oxygen Saturation 95% 02/15/2021 1:17 PM WELFARE AIDE Inhaled Oxygen Concentration - - Weight 138 kg (304 lb 3.8 oz) 04/17/2021 1:03 PM WELFARE AIDE Height 178 cm (5' 10.08) 04/17/2021 1:03 PM WELFARE AIDE Body Mass Index 43.55 04/17/2021 1:03 PM WELFARE AIDE Plan of Treatment Not on file Procedures [...] BLOOD ADD-ON Final Result Performing Organization Address City/[facility] de Phone Number POWERCHART [...] 5.2 GDL POWERCHART HXeGFR (MDRD) >60 >=60 [id number] 2 POWERCHART eGFR Black/ >60 >=60 [id number] 2 POWERCHART Blood 01/08/2014 10:1 6 AM CDT Curtis Avery M.D. LAB BLOOD ADD-ON Final Result POWERCHART from Last 3 Months or Most Recently Relevant to Health Maintenance Insurance [facility] [place]ER [place] [id number] Care Teams Personal Lines Advisor Relationship Specialty Start Date End Date Elsewhere, Pcp PCP - General Family Medicine 06/15/17
== END 2024-02-06 08:42 | disposition home or self-care (01) ==
PROVIDERS: PCP Family Medicine; Visit Provider Family Medicine
DX: E11.9 Type 2 diabetes mellitus without complications (principal); E78.2 Mixed hyperlipidemia; I10 Essential (primary) hypertension; C61 Malignant neoplasm of prostate; Z79.4 Long term (current) use of insulin
CPT/HCPCS: 80048; 80061; 84153; 84460

== ENCOUNTER 2024-02-10 07:53 | Outpatient (CLI) | payer OTHER, SELFPAY ==
--- OUTSIDE RECORDS SUMMARY | 2024-02-10 07:55 | XMS_ITS | Data Portability ---
Author Organization [place] [facility] [place] [facility] Address [address] [facility] [address] [place] [address] Care Team Providers Care Bicycle Repair Technician Name Role Phone GORDY SOL Primary Care Provider Assessment Encounter Date Assessment Date Assessment LastModified by Organization Details LastModified Time 11/21/2019 11/21/2019 59M with [id number] Heidy 3+4=7 prostate cancer s/p RALP. Discussed pathology, risk of recurrence, need for ongoing PSA monitoring. Small anastomotic leak, will cont Choi x 1 more week. Worsened LE edema, likely chronic, but will check LE u/s to be sure no DVT. [email or web address] Not available 11/21/2019 14:07:03 01/02/2020 01/02/2020 59M with [id number] Heidy 3+4=7 prostate cancer s/p RALP. 1) Prostate cancer - f/u 4 months with PSA 2) EVETTE, moderate - cont Kegels - consider PFPT 3) ED - Cialis PRN [email or web address] Not available 01/02/2020 09:34:03 05/01/2020 05/01/2020 60M with [id number] Heidy 3+4=7 prostate cancer s/p RALP 6 months ago. MICHAEL. 1) Prostate cancer - f/u 6 months with PSA 2) EVETTE, moderate - cont Kegels - consider PFPT 3) ED - Cialis PRN [email or web address] Not available 05/01/2020 10:47:29 10/24/2020 10/24/2020 60M with [id number] Heidy 3+4=7 prostate cancer s/p RALP 1 [...] y referr al 2020 021 [facility], [address], [facility] [address], [place], [address], 09:57:49 Procedures None record ed. Surgeries None record ed. Imaging None record ed. Medication Orders None record ed. Patient TargetsNo targets recorded. Patient Instructions Encounter Date Encounter Id Patient Instructions Last Modified By Organization Details Last Modified Time 11/28/2019 [id number] To follow up sumaya Doshi at his [...] Not Available [facility] [address], [place], [address], 05/01/2020 10:40:29 02/11/2020 lab* PSA <0.04 normal Not Available No t Available 01/07/2020 12:33:24 01/02/2020 PSA, serum or plasm a PSA, Total <0.04 ng/Ml Not Available [facility] [address], [place], [address], 01/02/2020 09:14:10 10/25/19 21 10/24/2020 PSA, serum or plasm a PSA, Total <0.04n g/mL Not Available [facility] [address], [place], [address], 10/24/2020 10:45:30 11/23/19 20 11/21/2019 CT, pelvi s, w/o contr ast No observ ation record ed. [email or web address] Not Available 17:13:18 Result Notes None recorded. Problems Name Problem SNOMED Code Status Onset Date Resolution Date Notes Provider Name and Address Organization Details Recorded Time Carcinoma of prostate 678852008 Active 2019 Caroline kruger [facility] 0 10:59:25 Male urinary stress incontinence 980175220 Active 2020 Momo mcfarlane MD, PHD [address] [place] [address],[address] [place] [address], [phone], [facility] 10:47:38 Primary erectile dysfunction 149213516 Active 2020 Momo mcfarlane MD, PHD [address] [place] [address],[address] [place] [address], [phone], [facility] 10:47:58 Problem Notes None recorded. Procedures Surgical History Date Name Laterality Status Provider Name and Address Organization Details Recorded Time 10/25/19 21 Blood Draw/ACCORDION REPAIRER/PSA RESULTS completed Momo baez MD, PHD [address] [place] [address],[address], [place], [address], [facility] 10/24/2020 10:45:26 05/01/19 21 Blood Draw/ACCORDION REPAIRER/PSA RESULTS completed Momo baez MD, PHD [address] [place] [address],[address], [address], [facility] 05/01/2020 10:40:25 01/02/20 20 Blood Draw/ACCORDION REPAIRER/PSA RESULTS completed Janice Ayala [facility] 01/02/2020 09:14:04 11/28/19 20 Choi Catheter Removal completed Caroline Smith [facility] 02/04/2020 12:00:10 Prostatectomy completed Momo baez MD, PHD [address] [place] [address],[address], [address], [facility] 10/24/2020 10:44:48 colonoscopy completed Monica Awan [facility] 12/09/2020 10:47:07 Imaging Results Imaging [...] Name and Address Organization Details Recorded Time [id number] silver medicatio n Not available Not available Not available 11/21/2019 [id number] RxNorm Caroline Rojasyoandy kruger [facility] 0 11:09:54 [id number] adhesive tape environme nt,medica tion Not available Not available Not available 11/21/2019 Caroline Bobyoandy kruger [facility] 0 11:10:01 Medications Name Sig [...] Updated DateTime 01/02/2020 180.34 cm 39.3 kg/m2 770806.05 g Caroline Luis [facility] 01/02/2020 09:09:40 Date Recorded Body height Body mass index (BMI) Body weight Provider Name and Address Organization Details Last Updated DateTime 05/01/2020 180.34 cm 39.3 kg/m2 643296.05 g Momo baez MD, PHD [address] [place], [place] [address] [place] [address] 05/01/2020 10:39:59 Date Recorded Body height Body mass index (BMI) Body weight Provider Name and Address Organization Details Last Updated DateTime 10/24/2020 180.34 cm 39.7 kg/m2 427375.83 g Momo baez MD, PHD [address] [place] [address] 10/24/2020 10:44:13 Date Recorded Body height Body mass index (BMI) Body weight Provider Name and Address Organization Details Last Updated DateTime 11/21/2019 180.34 cm 39.3 kg/m2 340621.05 g Caroline Smith [facility] 11/21/2019 11:09:04 Social History Question Answer Notes LastModified by Organizat ion Details LastModified Time Tobacco Smoking Status Never Smoker Caroline kruger [facility] 11/21/2019 11:10:15 What Is Your [...] Diagnosis/Indication Diagnosis SNOMED-CT Code Diagnosis ICD10 Code [id number] Momo beard MD, PHD [facility] [address] [place] [address] 11/21/2019 10:45:55 11/21/2019 15:00:28 Malignant tumor of prostate 641232674 C61 [id number] Caroline Gneiting [facility] [address] [place] [address] 11/28/2019 09:57:13 02/06/2020 03:54:17 [id number] Momo beard MD, PHD [facility] [address] [place] [address] 01/02/2020 08:46:59 01/02/2020 14:22:16 Malignant tumor of prostate 351474426 C61 [id number] Momo beard MD, PHD [facility] [address] [place] [address] 05/01/2020 09:26:51 05/01/2020 12:03:29 Malignant tumor of prostate 041087952 C61 Primary er ectile dysfunction 721427387 N52.9 [id number] Momo beard MD, PHD [facility] [address] [place] [address] 10/24/2020 10:28:04 10/27/2020 16:45:05 Carcinoma of prostate 704794294 C61 Malignant tumor of prostate 633562761 C61 Primary er ectile dysfunction 164067455 N52.9 Male urina ry stress incontinence 937203148 N39.3 Health Concerns Section Related Observation LastModified by Organization Detai ls LastModified Time None Recorded Concern Status LastModified by Organization Details LastModified Time None Recorded Advance Directives Directive None Recorded Payers Encounter Date Sequence Insurance Name Policy Number Policy Archibald Covered Member ID Archibald Member ID Guarantor Name 11/21/2019 1 [facility] [id number] Julien Gonsalvesretmaynor [id number] Julien Ridley 11/28/2019 1 [facility] [id number] Julien Gonsalvesretson [id number] Julien Ridley 01/02/2020 1 [facility] [id number] Julien Gonsalvesretson [id number] Julien Ridley 05/01/2020 1 [facility] [id number] Julien Gonsalvesretson [id number] Julien Ridley 10/24/2020 1 [facility] [id number] Julien Gonsalvesretson [id number] Julien Ridley Notes Date Note Type Note Provider Name and Address Organization Details Recorded Time 11/21/2019 text/html HPI Notes: 59M s /p RALP 11/06/19 for [id number] Heidy 3+4=7 prostate cancer (0/12 LN, -SMS) Overall doing well. Some drainage umbilical incision. Chronic LE edema worse especially R>L. Some hematuria when having BMs. No fever. Eating ok. Minimal pain. CT Cystogram today: small anastomotic leak PSA (07/27/19): 6.5 CONSTANZA: cT1c, 35g (J Carlos) MRI: none Biopsy (08/30/19): 23g, 3/12 cores (LLM, LMB, LMM [place] 3+4=7 up to 40%) Pre-op ED: 05/09 Momo Holliday MD, PHD [address] [facility] [address], [place], [address], [facility] [place] [facility] 11/21/2019 14:07:42 01/02/2020 text/html HPI Notes: 59M with [id number] Heidy 3+4=7 prostate cancer (0/12 LN, -SMS) s/p RALP 11/06/19. Small anastomotic leak, catheter removed 11/28/19. Overall doing well. C/o some leakage with BMs and position changes. Uses multiple depends per day...... LE u/s to eval for dvt last visit was negative PSA Results 07/27/19: 6.5 01/02/20: <0.04 UF: 4/5 EF: 5/5 Pre-op EF: 2/5 Momo Holliday MD, PHD [address] [place] [address],[address], [address], [facility] 01/02/2020 09:35:54 05/01/2020 text/html HPI Notes: 60M with [id number] [place] 3+4=7 prostate cancer (0/12 LN, -SMS) s/p RALP 11/06/19. Small anastomotic leak, catheter removed 11/28/19. Overall doing well. C/o some leakage with BMs and position changes. Uses 4ppd which is improvement. No problems with incisions. PSA Results 07/27/19: 6.5 01/02/20: <0.04 05/01/20: <0.04 UF: 3/5 EF: 5/5 Pre-op EF: 2/5 Momo Holliday MD, PHD [address] [place] [address], [address], [facility] 05/01/2020 10:48:15 10/24/2020 text/html HPI Notes: 60M with [id number] [place] 3+4=7 prostate cancer (0/12 LN, -SMS) s/p RALP 11/06/19 Overall doing well. C/o some leakage with BMs and position changes and sexual activity. Uses 4ppd still. No problems with incisions. PSA Results 07/27/19: 6.5 01/02/20: <0.04 05/01/20: <0.04 10/24/20: <0.04 UF: 3/5 EF: 5/5 Pre-op EF: 2/5 Momo Holliday MD, PHD [address] [place] [address],[place] [address], [place], [address], [facility] 10/24/2020 11:30:55
--- OUTSIDE RECORDS SUMMARY | 2024-02-10 07:55 | XMS_ITS | Clinical Summary ---
Author Organization [place] Address [address] [place] [address] Care Team Providers Care Mobile Marketing Specialist Name Role Phone Munir Sahu MD Primary Care Provider + [phone] Allergies Active Allergy Reactions Criticality Noted Date [...] Plan of Treatment Not on file Insurance [facility] [employer] Advance Directives For more information, please contact: [phone] * Full Code (Latest Code Status on File) Date Activated Date Inactivated Comments 11/06/2019 2:19 PM 11/07/2019 9:06 PM All basic and advanced life-sustaining interventions are performed as appropriate Question Answer Comments Code status determined by: Unable to det ermine; FULL CODE until documents or legal decision maker available Care Teams Mobile Marketing Specialist Relationship Specialty Start Date End Date Munir Sahu MD PCP - General Family Practice 10/22/19
--- OUTSIDE RECORDS SUMMARY | 2024-02-10 07:55 | XMS_ITS | Referral Summary ---
Author Organization [place] Address [address] [place] [address] Care Team Providers Care First Grade Teacher Name Role Phone Munir Sahu MD Primary Care Provider + [phone] Allergies Active Allergy Reactions Criticality Noted Date [...] Plan of Treatment Not on file Insurance [facility] [address] Advance Directives For more information, please contact: [phone] * Full Code (Latest Code Status on File) Date Activated Date Inactivated Comments 11/06/2019 2:19 PM 11/07/2019 9:06 PM All basic and advanced life-sustaining interventions are performed as appropriate Question Answer Comments Code status determined by: Unable to det ermine; FULL CODE until documents or legal decision maker available Care Teams First Grade Teacher Relationship Specialty Start Date End Date Munir Sahu MD PCP - General Family Practice 10/22/19
--- OUTSIDE RECORDS SUMMARY | 2024-02-10 07:55 | XMS_ITS | Clinical Summary ---
Author Organization [facility] Address [place], [place] [address] Care Team Providers Care Sweeper Operator Highways Name Role Phone Munir Sahu MD Primary Care Provider + [facility] [place] Unavailable [phone] Allergies Active Allergy Reactions Criticality Noted Date [...] by insurance) 9 mL 09/28/2023 Active Insulin [place], Disposable, (Susana Pen Needle) 32 gauge x [...] Diagnosed Date Coronary artery disease invo lving augustine coronary artery without angina pectoris 10/28/2023 Overview [...] Encounters Date Type Department Care Team Description 02/09/2024 6:57 AM FREIGHT BROKER - 02/09/2024 11:59 PM FREIGHT BROKER Hospital Encounter [facility] [address] [facility], [place] [address] 02/09/2024 Travel 02/08/2024 6:57 AM FREIGHT BROKER - 02/08/2024 11:59 PM FREIGHT BROKER Hospital Encounter [facility] [address] [facility] [place] [address] 02/08/2024 Travel 02/02/2024 6:56 AM CDT - 02/02/2024 11:59 PM CDT Hospital Encounter [facility] [address] [facility] [place] [address] 02/02/2024 Travel 02/01/2024 6:56 AM CDT - 02/01/2024 11:59 PM CDT Hospital Encounter [facility] [address] [facility] [place] [address] 02/01/2024 Travel 01/30/2024 7:00 AM CDT - 01/30/2024 11:59 PM CDT Hospital Encounter [facility] [address] [facility], [place] [address] 01/30/2024 Travel 01/25/2024 6:59 AM CDT - 01/25/2024 11:59 PM CDT Hospital Encounter [facility] [address] [facility], [place] [address] 01/25/2024 Travel 01/23/2024 7:00 AM CDT - 01/23/2024 11:59 PM CDT Hospital Encounter [facility] [address] [facility], [place] [address] 01/23/2024 Travel 01/19/2024 7:00 AM CDT - 01/19/2024 11:59 PM CDT Hospital Encounter [facility] [address] [facility] [place] [address] 01/19/2024 Travel 01/18/2024 6:57 AM CDT - 01/18/2024 11:59 PM CDT Hospital Encounter [facility] [address] [facility], [place] [address] 01/18/2024 Travel 01/16/2024 7:00 AM CDT - 01/16/2024 11:59 PM CDT Hospital Encounter [facility] [address] [facility], [place] [address] 01/16/2024 Travel 01/12/2024 6:58 AM CDT - 01/12/2024 11:59 PM CDT Hospital Encounter [facility] [address] [facility] [place] [address] 01/12/2024 Travel 01/11/2024 6:56 AM CDT - 01/11/2024 11:59 PM CDT Hospital Encounter [facility] [address] [facility] [place] [address] 01/11/2024 Travel 01/05/2024 6:56 AM CDT - 01/05/2024 11:59 PM CDT Hospital Encounter [facility] [address] [place] [address] 01/05/2024 Travel 01/04/2024 6:56 AM CDT - 01/04/2024 11:59 PM CDT Hospital Encounter [facility] [address] [place] [address] 01/04/2024 Travel 01/02/2024 7:00 AM CDT - 01/02/2024 11:59 PM CDT Hospital Encounter [facility] [address] [facility] [place] [address] 01/02/2024 Travel 12/22/2023 6:51 AM CDT - 12/22/2023 11:59 PM CDT Hospital Encounter [facility] [address] [place] [address] 12/22/2023 Travel 12/21/2023 6:51 AM CDT - 12/21/2023 11:59 PM CDT Hospital Encounter [facility] [address] [place] [address], [place] [address] 12/21/2023 Travel 12/19/2023 9:30 AM CDT Orders Only [facility] [address] [place] [address] 2 scans: (2-Ord) US VENOUS INSUFFICIENCY LOWER EXTREMITY BILATERAL ([id number]) 12/19/2023 7:30 AM CDT - 12/19/2023 11:59 PM CDT Hospital Encounter [facility] [address] [place] [address] 12/19/2023 Travel 12/15/2023 6:57 AM CDT - 12/15/2023 11:59 PM CDT Hospital Encounter [facility] [address] [place] [address] 12/15/2023 Travel 12/14/2023 6:54 AM CDT - 12/14/2023 11:59 PM CDT Hospital Encounter [facility] [address] [place] [address] 12/14/2023 Travel 12/13/2023 1:30 PM CDT Office Visit [facility] [address] [place] [id number] Kamran Li MD Follow Up (Dr. Li [...] - 12/13/2023 11:59 PM CDT Hospital Encounter [facility] [address] [place] [address] Kamran Li MD CAD, multiple vessel; S/p 3V CABG (SHER-LAD, LISA-ramus, radial-OM), 09/23/2023 12/13/2023 Travel 12/12/2023 7:00 AM CDT - 12/12/2023 11:59 PM CDT Hospital Encounter [address] [address] 12/12/2023 Telephone [place] [address] [place] [address] Gina Jaime Cardiovascular Diagnostic Testing (lvm to confirm 12/13/23 stress test appt) 12/12/2023 Travel 12/08/2023 6:56 AM CDT - 12/08/2023 11:59 PM CDT Hospital Encounter [address] [address] 12/08/2023 Travel 12/07/2023 6:52 AM CDT - 12/07/2023 11:59 PM CDT Hospital Encounter [address] [address] 12/07/2023 Travel 12/01/2023 6:55 AM CDT - 12/01/2023 11:59 PM CDT Hospital Encounter [address] [address] 12/01/2023 Travel 11/30/2023 6:55 AM CDT - 11/30/2023 11:59 PM CDT Hospital Encounter [address] [address] 11/30/2023 Travel 11/29/2023 9:09 AM CDT - 11/29/2023 11:59 PM CDT Hospital Encounter [address] [address] Alejandra Lau PA S/p 3V CABG (SHER-LAD, LISA-ramus, radial-OM), 09/23/2023 11/29/2023 Travel 11/28/2023 7:30 AM CDT Home Care Visit [facility] [address] [place] [phone] Elvira Reyes RN SN - OASIS DISCHARGE 11/22/2023 10:45 AM CDT Home Care Visit [facility] [address] [place] [phone] Tyson Mejias, PT PT - DISCIPLINE DISCHARGE 11/21/2023 10:00 AM CDT Home Care Visit [facility] [address] [place] [phone] Irma Hollins RN SN - HOME VISIT 11/17/2023 7:30 AM CDT Home Care Visit [facility] [address] [place] [phone] Tyson Mejias, PT PT - HOME VISIT 11/15/2023 8:30 AM CDT Home Care Visit [facility] [address] [place] [phone] Tyson Mejias, PT PT - HOME VISIT 11/14/2023 8:30 AM CDT Home Care Visit [facility] [address] [place] [phone] Elvira Reyes RN SN - HOME VISIT 11/14/2023 3:30 AM CDT Home Care Visit [facility] [address] [place] [phone] Ailyn Varghese RN SN - WOUND/OSTOMY CHART CONSULT 11/11/2023 Telephone [facility] [address] [place] [address] Anibal Quigley MD Referral 11/10/2023 8:00 AM CDT Home Care Visit [facility] [address] [place] [phone] yTson Mejias, PT PT - HOME VISIT from Last 3 Months [...] Care Team (Late st Contact Info) Description 02/13/2024 7:00 AM FREIGHT BROKER Appointment [facility] [address] [place] [address] 02/15/2024 7:00 AM FREIGHT BROKER Appointment [facility] [address] [address] 02/16/2024 7:00 AM FREIGHT BROKER Appointment [place] [address] [address] 02/20/2024 7:00 AM FREIGHT BROKER Appointment [facility] [address] [place] [address] 02/27/2024 Procedure Only [facility] [address] [place] [address] Health Maintenance Due Date Last [...] Priority Date/Time Associated Diagnosis Comments SCAN-CARDIAC REHABILITATION 02/09/2024 7:03 AM FREIGHT BROKER SCAN-CARDIAC REHABILITATION 02/09/2024 7:03 AM FREIGHT BROKER SCAN-CARDIAC REHABILITATION 02/08/2024 7:02 AM FREIGHT BROKER SCAN-CARDIAC REHABILITATION 02/02/2024 7:02 AM CDT SCAN-CARDIAC [...] to Health Maintenance Results * SCAN-CARDIAC REHABILITATION (02/09/2024 7:03 AM FREIGHT BROKER) Only the most recent of28 resultswithin the time period is included. Scanner OTHER * (ABNORMAL) GLUCOSE METER (01/12/2024 7:52 AM CDT) Only the most recent of8 resultswithin the time period is included. GLUCOSE METER 154(H) 65 - 100 mg/dL 01/12/2024 7:57 AM CDT [facility] Blood BLOOD SPECIMEN / Unknown 01/12/2024 7:52 AM CDT 01/12/2024 7:57 AM CDT Doctor Unknown CHEMISTRY Performing Organization Address City/State/[facility] Co de Phone Number [facility] [address] [phone] * US VENOUS INSUFFICIENCY LOWER EXTREMITY BILATERAL (12/19/2023 1:21 PM CDT) Anatomical Region Laterality Modality LEGS Ultrasound 12/19/2023 9:22 AM CDT Narrative 12/19/2023 5:10 PM CDT VASCULAR ULTRASOUND REPORT JOSE GUADALUPE Owens KEYANA Accession#: ?? [id number] : ?1960 ??Study Date: ?? 12/19/2023 9:22:18 AM Age: ?63 years ?? Tech: ? PMK Gender: M ?Referring MD: ANTOINETTE SMITH Site: [facility] Study performed: [...] and distal calf. 5. Incompetent varicose and/or director home veins as listed below. COMPARISON: No prior [...] Accreditation Commission (IAC/Vascular), www.intersocietal.org/vascular Report generated by [employer]. ??Final ?? Procedure Note Anderson Petersen MD - 12/19/2023 VASCULAR ULTRASOUND REPORT JOSE GUADALUPE RIDLEY : 1960 Study Date: 12/19/2023 9:22:18 AM Age: 63 years Tech: PMK Gender: M Referring MD: ANTOINETTE SMITH Site: [facility] Study performed: [...] and distal calf. 5. Incompetent varicose and/or director home veins as listed below. COMPARISON: No prior [...] theIntersocietal Accreditation Commission (IAC/Vascular),www.intersocietal.org/vascular Report generated by [employer]. Final Antoinette FAJARDO US * NM CARDIAC MPI STRESS TEST (12/13/2023 10:08 AM CDT) Anatomical Region Laterality Modality HEART Nuclear Medicine 12/13/2023 7:07 AM CDT Narrative 12/13/2023 12:[address] PM CDT [address], [place] [address] Main: ?Myocardial Perfusion Report ?Rest/Stress 1 Day Single Isotope Gated SPECT imaging with Regadenoson(Lexiscan) stress ALICEGK JOSE GUADALUPE Federico ID: [id number] Age: 63 : 1960 Nuclear Tech: KKD Exam Date: 12/13/2023 07:07 Gender: M RN/Ex. Pneumatic Tool Operator: HANG/TYLER Height: 70.9 in BSA: 2.43 m?? Monitoring Provider: KARY AIKEN Weight: 280 lbs BMI: 39.2 kg/m?? Ordering Provider: KAMRAN LI Location: [facility] Indication: S/P CABG x 3; CAD, multiple [...] / 60 % MPHR: 51 Double Product: [id number] Recovery HR(bpm): 71 Recovery BP(mmHg): 124 / [...] 0 Apical Lateral: 0 Apical Lateral: 0 [place]: 0 [place]: 0 Summed Stress Score: 2 Summed [...] motion. Anderson ??L[place] NO[place]ES [facility] Accredited Site (Electronically Signed) Final Date: 13 December 2023 12:48 ICD-10 Codes: Z95.1; I25.10 CC Providers: Dr. Munir Sahu Procedure Note Anderson Danielle MD - 12/13/[address], [place] [address] Main: Myocardial Perfusion Report Rest/Stress 1 Day Single Isotope Gated SPECT imaging withRegadenoson(Lexiscan) stress ALICEYAKELIN SAULRAMAKRISHNA Caballero ID: [id number] Age: 63 : 1960 Nuclear Tech: KKD Exam Date: 12/13/2023 07:07 Gender: M RN/Ex. Pneumatic Tool Operator: HANG/CTL Height: 70.9 in BSA: 2.43 m?? Monitoring Provider:KARY AIKEN Weight: 280 lbs BMI: 39.2 kg/m?? Ordering Provider: KAMRAN LI Location: [facility] Indication: S/P CABG x 3; CAD, multiple [...] 142 / 60 % MPHR: 51 Double Product:[id number] Recovery HR(bpm): 71 Recovery BP(mmHg): 124 / [...] 0 Apical Lateral: 0 Apical Lateral: 0 [place]: 0 [place]: 0 Summed Stress Score: 2 Summed [...] motion. Anderson Danielle MD [facility] Accredited Site (Electronically Signed) Final Date: 13 December 2023 12:48 ICD-10 Codes: Z95.1; I25.10 CC Providers: Dr. Munir Sahu Kamran Li MD NM * LIPID PANEL (09/18/2023 4:17 AM CDT) CHOLESTEROL,TOTAL 174 100 - 199 mg/dL 09/18/2023 4:54 AM CDT [facility] Comment: Cholesterol, Total Reference Ranges Desirable <200 mg/dL Borderline 200-239 mg/dL High >=240 mg/dL TRIGLYCERIDES 105 <150 mg/dL 09/18/2023 4:54 AM CDT [facility] HDL CHOLESTEROL 42 >40 mg/dL 4:54 AM T [facility] NON-HDL CHOLESTEROL 132 <145 mg/dl 09/18/2023 4:54 AM CDT [facility] CHOL/HDL RATIO 4.14 <4.50 09/18/2023 4:54 AM T [facility] LDL CHOLESTEROL 111 <=130 mg/dL 09/18/2023 4:54 AM T [facility] VLDL CHOLESTEROL 21 <=30 mg/dL 09/18/2023 4:54 AM CDT [facility] PROVIDER ORDERED STATUS RANDOM 09/18/2023 4:54 AM T [facility] Blood BLOOD SPECIMEN / Unknown Venipuncture / Unknown 09/18/2023 4:17 AM CDT 09/18/2023 4:27 AM CDT Wendy Lomeli DO CHEMISTRY [facility] [place] [place]NAL ZIP [address] [place] [id number] from Last 3 Months or Most Recently [...] Code Status Discussion: Not Discussed Care Teams Sweeper Operator Highways Relationship Specialty Start Date End Date Munir Sahu MD [address] [place] [address] PCP - General Family Practice 09/17/23 [facility] [address] [place] [address] 09/28/23
--- OUTSIDE RECORDS SUMMARY | 2024-02-10 07:56 | XMS_ITS | Clinical Summary ---
Author Organization [facility] Address [address] [place] [address] Care Team Providers Care Director Loss Prevention Name Role Phone Elsewhere, Pcp Primary Care Provider Unavailabl e Source Comments Patient records contain information from all sites at [facility]. For routine questions regarding patient records, call [phone] during business hours, M-F 8:00 AM - 5:00 PM Central Time. Record requests for emergency care only can be directed to [phone] at any time.[facility] Allergies Active Allergy Reactions Criticality Noted Date Comments Dimethicone-Petrolatum Rash 02/01/2014 Horse [place] Rash 07/16/2016 Silver Sulfate-Foam Bandage Rash 02/02/20 [...] mouth. 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 Gender Identity Not on file Sexual Orientation Not on file Last Filed Vital Signs Vital Sign Reading Time Taken Comments Blood Pressure 160/85 04/17/2021 1:03 PM COMPENSATION ANALYST Pulse 74 04/17/2021 1:03 PM COMPENSATION ANALYST Temperature 36.4 ??C (97.5 ??F) 04/17/2021 1:03 PM CS T Respiratory Rate 14 02/15/2021 1:17 PM COMPENSATION ANALYST Oxygen Saturation 95% 02/15/2021 1:17 PM COMPENSATION ANALYST Inhaled Oxygen Concentration - - Weight 138 kg (304 lb 3.8 oz) 04/17/2021 1:03 PM COMPENSATION ANALYST Height 178 cm (5' 10.08) 04/17/2021 1:03 PM COMPENSATION ANALYST Body Mass Index 43.55 04/17/2021 1:03 PM COMPENSATION ANALYST Plan of Treatment Health Maintenance Due [...] BLOOD ADD-ON Final Result Performing Organization Address [facility] de Phone Number POWERCHART * [...] BLOOD ADD-ON Final Result Performing Organization Address [facility] de Phone Number POWERCHART * [...] 5.2 GDL POWERCHART HXeGFR (MDRD) >60 >=60 [id number] 2 POWERCHART eGFR Black/ >60 >=60 [id number] POWERCHART Blood 01/08/2014 10:1 6 AM CDT Curtis Avery M.D. LAB BLOOD ADD-ON Final Result POWERCHART from Last 3 Months or Most Recently Relevant to Health Maintenance Insurance [facility] [address], RAJWINDER [id number] Care Teams Director Loss Prevention Relationship Specialty Start Date End Date Elsewhere, Pcp PCP - General Family Medicine 06/15/17
--- OUTSIDE RECORDS SUMMARY | 2024-02-10 07:56 | XMS_ITS | Referral Summary ---
Author Organization [facility] Address [address] [place] [address] Care Team Providers Care Vocational Trainer Name Role Phone Elsewhere, Pcp Primary Care Provider Unavailabl e Source Comments Patient records contain information from all sites at [facility]. For routine questions regarding patient records, call [phone] during business hours, M-F 8:00 AM - 5:00 PM Central Time. Record requests for emergency care only can be directed to [phone] at any time.[facility] Allergies Active Allergy Reactions Criticality Noted Date Comments Dimethicone-Petrolatum Rash 02/01/2014 Horse [place] Rash 07/16/2016 Silver Sulfate-Foam Bandage Rash 02/02/20 [...] mouth. 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 Gender Identity Not on file Sexual Orientation Not on file Last Filed Vital Signs Vital Sign Reading Time Taken Comments Blood Pressure 160/85 04/17/2021 1:03 PM FURNACE LINER Pulse 74 04/17/2021 1:03 PM FURNACE LINER Temperature 36.4 ??C (97.5 ??F) 04/17/2021 1:03 PM CS T Respiratory Rate 14 02/15/2021 1:17 PM FURNACE LINER Oxygen Saturation 95% 02/15/2021 1:17 PM FURNACE LINER Inhaled Oxygen Concentration - - Weight 138 kg (304 lb 3.8 oz) 04/17/2021 1:03 PM FURNACE LINER Height 178 cm (5' 10.08) 04/17/2021 1:03 PM FURNACE LINER Body Mass Index 43.55 04/17/2021 1:03 PM FURNACE LINER Plan of Treatment Not on file Procedures [...] BLOOD ADD-ON Final Result Performing Organization Address City/[facility] de Phone Number POWERCHART * (ABNORMAL) CMP [...] 5.2 GDL POWERCHART HXeGFR (MDRD) >60 >=60 [id number] 2 POWERCHART eGFR Black/ >60 >=60 [id number] 2 POWERCHART Blood 01/08/2014 10:1 6 AM CDT Curtis Avery M.D. LAB BLOOD ADD-ON Final Result POWERCHART from Last 3 Months or Most Recently Relevant to Health Maintenance Insurance [facility] RAJWINDER SAV[place] [id number] Care Teams Vocational Trainer Relationship Specialty Start Date End Date Elsewhere, Pcp PCP - General Family Medicine 06/15/17
--- OUTSIDE RECORDS SUMMARY | 2024-02-10 07:56 | XMS_ITS ---
Author Organization [facility] Address [address] [place] [address] Care Team Providers Care Epic Trainer Name Role Phone Unavailable Unavailable Unavailable Surgery Details Not on file Complications Check Surgery Details section. Procedure Estimated Blood Loss Check Surgery Details section. Procedure Findings Check Surgery Details section. Procedure Specimens Taken Check Surgery Details section.
== END 2024-02-10 07:54 | disposition home or self-care (01) ==
LOC: WOUND 07:53
PROVIDERS: PCP Family Medicine; Visit Provider Nurse Practitioner Family
DX: I87.312 Chronic venous hypertension (idiopathic) with ulcer of left lower extremity (principal); I87.2 Venous insufficiency (chronic) (peripheral); E11.622 Type 2 diabetes mellitus with other skin ulcer; L97.322 Non-pressure chronic ulcer of left ankle with fat layer exposed; Z79.4 Long term (current) use of insulin
CPT/HCPCS: G0463

== ENCOUNTER 2024-02-17 07:47 | Outpatient (CLI) | payer OTHER, SELFPAY ==
--- OUTSIDE RECORDS SUMMARY | 2024-02-17 07:49 | XMS_ITS | Referral Summary ---
Author Organization [facility] Address [address] [place] [address] Care Team Providers Care Chief Nuclear Medicine Technologist Name Role Phone Munir Sahu MD Primary Care Provider + [phone] Allergies Active Allergy Reactions Criticality Noted Date [...] Plan of Treatment Not on file Insurance [facility] Advance Directives For more information, please contact: [phone] * Full Code (Latest Code Status on File) Date Activated Date Inactivated Comments 11/06/2019 2:19 PM 11/07/2019 9:06 PM All basic and advanced life-sustaining interventions are performed as appropriate Question Answer Comments Code status determined by: Unable to det ermine; FULL CODE until documents or legal decision maker available Care Teams Chief Nuclear Medicine Technologist Relationship Specialty Start Date End Date Munir Sahu MD PCP - General Family Practice 10/22/19
--- OUTSIDE RECORDS SUMMARY | 2024-02-17 07:49 | XMS_ITS | Clinical Summary ---
Author Organization [facility] Address [address] [place] [address] Care Team Providers Care Forklift Picker Name Role Phone Elsewhere, Pcp Primary Care Provider Unavailabl e Source Comments Patient records contain information from all sites at [facility]. For routine questions regarding patient records, call [phone] during business hours, M-F 8:00 AM - 5:00 PM Central Time. Record requests for emergency care only can be directed to [phone] at any time.[facility] Allergies Active Allergy Reactions Criticality Noted Date Comments Dimethicone-Petrolatum Rash 02/01/2014 Horse [place] Rash 07/16/2016 Silver Sulfate-Foam Bandage Rash 02/02/20 [...] mouth. 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 Gender Identity Not on file Sexual Orientation Not on file Last Filed Vital Signs Vital Sign Reading Time Taken Comments Blood Pressure 160/85 04/17/2021 1:03 PM ADVERTISING DISPATCH CLERK Pulse 74 04/17/2021 1:03 PM ADVERTISING DISPATCH CLERK Temperature 36.4 ??C (97.5 ??F) 04/17/2021 1:03 PM CS T Respiratory Rate 14 02/15/2021 1:17 PM ADVERTISING DISPATCH CLERK Oxygen Saturation 95% 02/15/2021 1:17 PM ADVERTISING DISPATCH CLERK Inhaled Oxygen Concentration - - Weight 138 kg (304 lb 3.8 oz) 04/17/2021 1:03 PM ADVERTISING DISPATCH CLERK Height 178 cm (5' 10.08) 04/17/2021 1:03 PM ADVERTISING DISPATCH CLERK Body Mass Index 43.55 04/17/2021 1:03 PM ADVERTISING DISPATCH CLERK Plan of Treatment Health Maintenance Due Date [...] BLOOD ADD-ON Final Result Performing Organization Address [facility] de Phone Number POWERCHART * (ABNORMAL) Lipid [...] BLOOD ADD-ON Final Result Performing Organization Address [facility] de Phone Number POWERCHART * (ABNORMAL) CMP [...] 5.2 GDL POWERCHART HXeGFR (MDRD) >60 >=60 [id number] 2 POWERCHART eGFR Black/ >60 >=60 [id number] 2 POWERCHART Blood 01/08/2014 10:1 6 AM CDT Curtis vAery M.D. LAB BLOOD ADD-ON Final Result POWERCHART from Last 3 Months or Most Recently Relevant to Health Maintenance [place] [facility] [address] [place] [id number] Care Teams Forklift Picker Relationship Specialty Start Date End Date Elsewhere, Pcp PCP - General Family Medicine 06/15/17
--- OUTSIDE RECORDS SUMMARY | 2024-02-17 07:49 | XMS_ITS | Data Portability ---
Author Organization ID - [facility] Address [address] [facility] [address] [place] [address] Care Team Providers Care Administrative Resources Associate Name Role Phone GORDY SOL Primary Care Provider [phone] Assessment Encounter Date Assessment Date Assessment LastModified by Organization Details LastModified Time 11/21/2019 11/21/2019 59M with [id number] [place] 3+4=7 prostate cancer s/p RALP. Discussed pathology, risk of recurrence, need for ongoing PSA monitoring. Small anastomotic leak, will cont Choi x 1 more week. Worsened LE edema, likely chronic, but will check LE u/s to be sure no DVT. [email or web address] Not available 11/21/2019 14:07:03 01/02/2020 01/02/2020 59M with [id number] [place] 3+4=7 prostate cancer s/p RALP. 1) Prostate cancer - f/u 4 months with PSA 2) EVETTE, moderate - cont Kegels - consider PFPT 3) ED - Cialis PRN [email or web address] Not available 01/02/2020 09:34:03 05/01/2020 05/01/2020 60M with [id number] [place] 3+4=7 prostate cancer s/p RALP 6 months ago. MICHAEL. 1) Prostate cancer - f/u 6 months with PSA 2) EVETTE, moderate - cont Kegels - consider PFPT 3) ED - Cialis PRN [email or web address] Not available 05/01/2020 10:47:29 10/24/2020 10/24/2020 60M with [id number] [place] 3+4=7 prostate cancer s/p RALP 1 year [...] referr al 2020 021 [facility], [address], [facility] [address], [place], [address], 09:57:49 Procedures None record ed. Surgeries None record ed. Imaging None record ed. Medication Orders None record ed. Patient TargetsNo targets recorded. Patient Instructions Encounter Date Encounter Id Patient Instructions Last Modified By Organization Details Last Modified Time 11/28/2019 [id number] To follow up sumaya Doshi at his [...] Not Available [facility] [address], [place], [address], 05/01/2020 10:40:29 02/11/2020 lab* PSA <0.04 normal Not Available No t Available 01/07/2020 12:33:24 01/02/2020 PSA, serum or plasm a PSA, Total <0.04 ng/Ml Not Available [facility] [address], [place], [address], 01/02/2020 09:14:10 10/25/19 21 10/24/2020 PSA, serum or plasm a PSA, Total <0.04n g/mL Not Available [facility] [address], [place], [address], 10/24/2020 10:45:30 11/23/19 20 11/21/2019 CT, pelvi s, w/o contr ast No observ ation record ed. cedric Not Available 17:13:18 Result Notes None recorded. Problems Name Problem SNOMED Code Status Onset Date Resolution Date Notes Provider Name and Address Organization Details Recorded Time Carcinoma of prostate 375204002 Active 2019 Caroline kruger [facility] 0 10:59:25 Male urinary stress incontinence 155573055 Active 2020 Momo mcfarlane MD, PHD [address] [place] [address],[address] [place] [address], [phone], [facility] 10:47:38 Primary erectile dysfunction 955493006 Active 2020 Momo mcfarlane MD, PHD [address] [place] [address],[address] [place] [address], [phone], [facility] 10:47:58 Problem Notes None recorded. Procedures Surgical History Date Name Laterality Status Provider Name and Address Organization Details Recorded Time 10/25/19 21 Blood Draw/MILK TRUCK DRIVER/PSA RESULTS completed Momo baez MD, PHD [address] [place] [address],[address], [place], [address], [facility] 10/24/2020 10:45:26 05/01/19 21 Blood Draw/MILK TRUCK DRIVER/PSA RESULTS completed Momo baez MD, PHD [address] [place] [address],[address], [phone], [facility] 05/01/2020 10:40:25 01/02/20 20 Blood Draw/MILK TRUCK DRIVER/PSA RESULTS completed Janice Ayala [facility] 01/02/2020 09:14:04 11/28/19 20 Choi Catheter Removal completed Carolinesasha Smith [facility] 02/04/2020 12:00:10 Prostatectomy completed Momo baez MD, PHD [address] [place] [address], [phone], [facility] 10/24/2020 10:44:48 colonoscopy completed Monica Awan [facility] 12/09/2020 10:47:07 Imaging Results Imaging [...] Name and Address Organization Details Recorded Time 794537 silver medicatio n Not available Not available Not available 11/21/2019 71544 43 RxNorm Caroline Smith [place], [facility] 0 11:09:54 221354 adhesive tape environme nt,medica tion Not available Not available Not available 11/21/2019 [id number] UNK Caroline Hoopertobias kruger, [facility] 0 11:10:01 Medications Name Sig Start Date [...] Updated DateTime 01/02/2020 180.34 cm 39.3 kg/m2 202574.[address] [facility] 01/02/2020 09:09:40 Date Recorded Body height Body mass index (BMI) Body weight Provider Name and Address Organization Details Last Updated DateTime 05/01/2020 180.34 cm 39.3 kg/m2 574697.05 g Momo baez MD, PHD [address] [place], [place] [address] [place] [address] 05/01/2020 10:39:59 Date Recorded Body height Body mass index (BMI) Body weight Provider Name and Address Organization Details Last Updated DateTime 10/24/2020 180.34 cm 39.7 kg/m2 930152.83 g Momo baez MD, PHD [address] [place], [place] [address] [place] [address] 10/24/2020 10:44:13 Date Recorded Body height Body mass index (BMI) Body weight Provider Name and Address Organization Details Last Updated DateTime 11/21/2019 180.34 cm 39.3 kg/m2 646167.[address] [facility] 11/21/2019 11:09:04 Social History Question Answer Notes LastModified by Organizat ion Details LastModified Time Tobacco Smoking Status Never Smoker Caroline kruger [facility] 11/21/2019 11:10:15 What Is Your [...] Diagnosis/Indication Diagnosis SNOMED-CT Code Diagnosis ICD10 Code [id number] Momo beard MD, PHD [facility] [employer] [address] [place] [address] 11/21/2019 10:45:55 11/21/2019 15:00:28 Malignant tumor of prostate 162353010 C61 [id number] Caroline Gneiting [facility] Media [employer]! [facility] [place] [id number] 11/28/2019 09:57:13 02/06/2020 03:54:17 [id number] Momo beard MD, PHD [facility] [employer] [facility] [address] [place] [address] 01/02/2020 08:46:59 01/02/2020 14:22:16 Malignant tumor of prostate 355270785 C61 [id number] Momo beard MD, PHD [facility] [employer] [facility] [place] [id number] 05/01/2020 09:26:51 05/01/2020 12:03:29 Malignant tumor of prostate 174294631 C61 Primary er ectile dysfunction 403488910 N52.9 [id number] Momo beard MD, PHD [facility] [employer] [facility] [address] [place] [phone] 10/24/2020 10:28:04 10/27/2020 16:45:05 Carcinoma of prostate 595963294 C61 Malignant tumor of prostate 703291692 C61 Primary er ectile dysfunction 041185222 N52.9 Male urina ry stress incontinence 649422298 N39.3 Health Concerns Section Related Observation LastModified by Organization Detai ls LastModified Time None Recorded Concern Status LastModified by Organization Details LastModified Time None Recorded Advance Directives Directive None Recorded Payers Encounter Date Sequence Insurance Name Policy Number Policy Archibald Covered Member ID Archibald Member ID Guarantor Name 11/21/2019 1 [facility] [id number] Julien Ridley [id number] Julien Ridley 11/28/2019 1 [facility] [id number] Julien Gonsalvesretmaynor [id number] Julien Ridley 01/02/2020 1 [facility] [id number] Julien Gonsalvesretmaynor [id number] Julien Ridley 05/01/2020 1 [facility] [id number] Julien Ridley [id number] Julien Ridley 10/24/2020 1 [facility] [id number] Julien Ridley [id number] Julien Ridley Notes Date Note Type Note Provider Name and Address Organization Details Recorded Time 11/21/2019 text/html 59M s/p RALP 11/06/19 for [id number] [place] 3+4=7 prostate cancer (0/12 LN, -SMS) Overall doing well. Some drainage umbilical incision. Chronic LE edema worse especially R>L. Some hematuria when having BMs. No fever. Eating ok. Minimal pain. CT Cystogram today: small anastomotic leak PSA (07/27/19): 6.5DRE: cT1c, 35g (J Carlos)MRI: none Biopsy (08/30/19): 23g, 3/12 cores (LLM, LMB, LMM [place] 3+4=7 up to 40%) Pre-op ED: 05/09 Momo Holilday MD, PHD [address] [facility] [address], [place], [address], [facility] 11/21/2019 14:07:42 01/02/2020 text/html 59M with [id number] 3+4=7 prostate cancer (0/12 LN, -SMS)s/p RALP 11/06/19. Small anastomotic leak, catheter removed 11/28/19. Overall doing well. C/o some leakage with BMs and position changes. Uses multiple depends per day...... LE u/s to eval for dvt last visit was negative PSA Results07/27/19: 6.59: <0.04 UF: 4/5EF: 5/5Pre-op EF: 2/5 Momo Holliday MD, PHD [address] [place] [address],[address], [phone], [facility] 01/02/2020 09:35:54 05/01/2020 text/html 60M with [id number] 3+4=7 prostate cancer (0/12 LN, -SMS)s/p RALP 11/06/19. Small anastomotic leak, catheter removed 11/28/19. Overall doing well. C/o some leakage with BMs and position changes. Uses 4ppd which is improvement. No problems with incisions. PSA Results07/27/19: 6.: <0.041/: <0.04 UF: 35EF: 5/5Pre-op EF: 2 Momo Holliday MD, PHD [address] [place] [address],[address], [phone], [facility] 05/01/2020 10:48:15 10/24/2020 text/html 60M with [id number] [place] 3+4=7 prostate cancer (0/12 LN, -SMS) s/p RALP 11/06/19 Overall doing well. C/o some leakage with BMs and position changes and sexual activity. Uses 4ppd still. No problems with incisions. PSA Results07/27/19: 6.59: <0.041/: <0.047/: <0.04 UF: 3/5EF: 5/5Pre-op EF: 25 Momo Holliday MD, PHD [address] [place] [address],[address], [address], [facility] 10/24/2020 11:30:55
--- OUTSIDE RECORDS SUMMARY | 2024-02-17 07:49 | XMS_ITS | Clinical Summary ---
Author Organization [facility] Address [place], [place] [address] Care Team Providers Care Mine Engineering Superintendent Name Role Phone Munir Sahu MD Primary Care Provider + [facility] [place] Unavailable [phone] Allergies Active Allergy Reactions Criticality Noted Date [...] by insurance) 9 mL 09/28/2023 Active Insulin [place], Disposable, (Susana Pen Needle) 32 gauge x [...] Diagnosed Date Coronary artery disease invo lving [place] coronary artery without angina pectoris 10/28/2023 Overview [...] Encounters Date Type Department Care Team Description 02/16/2024 6:59 AM RESIDENTIAL PROPERTY TAX APPRAISER - 02/16/2024 11:59 PM RESIDENTIAL PROPERTY TAX APPRAISER Hospital Encounter [facility] [address] [place] [address] 02/16/2024 Travel 02/15/2024 6:56 AM RESIDENTIAL PROPERTY TAX APPRAISER - 02/15/2024 11:59 PM RESIDENTIAL PROPERTY TAX APPRAISER Hospital Encounter [facility] [address] [place] [address] 02/15/2024 Travel 02/13/2024 6:59 AM RESIDENTIAL PROPERTY TAX APPRAISER - 02/13/2024 11:59 PM RESIDENTIAL PROPERTY TAX APPRAISER Hospital Encounter [facility] [address] [place] [address] 02/13/2024 Travel 02/09/2024 6:57 AM RESIDENTIAL PROPERTY TAX APPRAISER - 02/09/2024 11:59 PM RESIDENTIAL PROPERTY TAX APPRAISER Hospital Encounter [facility] [address] [place] [address] 02/09/2024 Travel 02/08/2024 6:57 AM RESIDENTIAL PROPERTY TAX APPRAISER - 02/08/2024 11:59 PM RESIDENTIAL PROPERTY TAX APPRAISER Hospital Encounter [facility] [address] [place] [address] 02/08/2024 Travel 02/02/2024 6:56 AM CDT - 02/02/2024 11:59 PM CDT Hospital Encounter [facility] [address] [place] [address] 02/02/2024 Travel 02/01/2024 6:56 AM CDT - 02/01/2024 11:59 PM CDT Hospital Encounter [facility] [address] [place] [address] 02/01/2024 Travel 01/30/2024 7:00 AM CDT - 01/30/2024 11:59 PM CDT Hospital Encounter [facility] [address] [place] [address] 01/30/2024 Travel 01/25/2024 6:59 AM CDT - 01/25/2024 11:59 PM CDT Hospital Encounter [facility] [address] [place] [address] 01/25/2024 Travel 01/23/2024 7:00 AM CDT - 01/23/2024 11:59 PM CDT Hospital Encounter [facility] [address] [place] [address] 01/23/2024 Travel 01/19/2024 7:00 AM CDT - 01/19/2024 11:59 PM CDT Hospital Encounter [facility] [address] [place] [address] 01/19/2024 Travel 01/18/2024 6:57 AM CDT - 01/18/2024 11:59 PM CDT Hospital Encounter [facility] [address], [place] [address] 01/18/2024 Travel 01/16/2024 7:00 AM CDT - 01/16/2024 11:59 PM CDT Hospital Encounter [facility] [address] [address] 01/16/2024 Travel 01/12/2024 6:58 AM CDT - 01/12/2024 11:59 PM CDT Hospital Encounter [facility] [address] [place] [address] 01/12/2024 Travel 01/11/2024 6:56 AM CDT - 01/11/2024 11:59 PM CDT Hospital Encounter [facility] [address] [address] 01/11/2024 Travel 01/05/2024 6:56 AM CDT - 01/05/2024 11:59 PM CDT Hospital Encounter [facility] [address] [address] 01/05/2024 Travel 01/04/2024 6:56 AM CDT - 01/04/2024 11:59 PM CDT Hospital Encounter [facility] [address] [place] [address] 01/04/2024 Travel 01/02/2024 7:00 AM CDT - 01/02/2024 11:59 PM CDT Hospital Encounter [facility] [address] [place], [place] [address] [address] 01/02/2024 Travel 12/22/2023 6:51 AM CDT - 12/22/2023 11:59 PM CDT Hospital Encounter [facility] [place] [address] 12/22/2023 Travel 12/21/2023 6:51 AM CDT - 12/21/2023 11:59 PM CDT Hospital Encounter [facility] [address] [place], [place] [address] [address] 12/21/2023 Travel 12/19/2023 9:30 AM CDT Orders Only [facility] [address] [place] [address] 2 scans: (2-Ord) US VENOUS INSUFFICIENCY LOWER EXTREMITY BILATERAL ([id number]) 12/19/2023 7:30 AM CDT - 12/19/2023 11:59 PM CDT Hospital Encounter [facility] [address] [place], [place] [address] [address] 12/19/2023 Travel 12/15/2023 6:57 AM CDT - 12/15/2023 11:59 PM CDT Hospital Encounter [facility] [place] [address] 12/15/2023 Travel 12/14/2023 6:54 AM CDT - 12/14/2023 11:59 PM CDT Hospital Encounter [facility] [address] [place] [address] [place] [address] 12/14/2023 Travel 12/13/2023 1:30 PM CDT Office Visit [address] [facility] [address] [place] [address] Kamran Li MD Follow Up (Dr. Li [...] Hospital Encounter [facility] [address] [place] [address] Kamran Li MD CAD, multiple vessel; S/p 3V CABG (SHER-LAD, LISA-ramus, radial-OM), 09/23/2023 12/13/2023 Travel 12/12/2023 7:00 AM CDT - 12/12/2023 11:59 PM CDT Hospital Encounter [facility] [address] [place] [address] 12/12/2023 [facility] [address] [place] [address] Gina Jaime Cardiovascular Diagnostic Testing (lvm to confirm 12/13/23 stress test appt) 12/12/2023 Travel 12/08/2023 6:56 AM CDT - 12/08/2023 11:59 PM CDT Hospital Encounter [facility] [address] [place] [address] 12/08/2023 Travel 12/07/2023 6:52 AM CDT - 12/07/2023 11:59 PM CDT Hospital Encounter [facility] [address] [place] [address] 12/07/2023 Travel 12/01/2023 6:55 AM CDT - 12/01/2023 11:59 PM CDT Hospital Encounter [facility] [address] [place] [address] 12/01/2023 Travel 11/30/2023 6:55 AM CDT - 11/30/2023 11:59 PM CDT Hospital Encounter [facility] [address] [place] [address] 11/30/2023 Travel 11/29/2023 9:09 AM CDT - 11/29/2023 11:59 PM CDT Hospital Encounter [facility] [address] [place] [address] Alejandra Lau, PA S/p 3V CABG (SHER-LAD, LISA-ramus, radial-OM), 09/23/2023 11/29/2023 Travel 11/28/2023 7:30 AM CDT Home Care Visit [facility] [address] [place] [phone] Elvira Reyes RN SN - OASIS DISCHARGE 11/22/2023 10:45 AM CDT Home Care Visit [facility] [address] [place] [phone] Tyson Mejias, PT PT - DISCIPLINE DISCHARGE 11/21/2023 10:00 AM CDT Home Care Visit [facility] [address] [place] [phone] Irma Hollins RN SN - HOME VISIT 11/17/2023 7:30 AM CDT Home Care Visit [facility] [address] [place] [phone] Tyson Mejias, PT PT - HOME VISIT from [...] Care Team (Late st Contact Info) Description 02/20/2024 7:00 AM RESIDENTIAL PROPERTY TAX APPRAISER Appointment [facility] [address] [place] [address] 02/22/2024 7:00 AM RESIDENTIAL PROPERTY TAX APPRAISER Appointment [facility] [address] [place] [address] 02/23/2024 7:00 AM RESIDENTIAL PROPERTY TAX APPRAISER Appointment [facility] [address], [place] [address] 02/27/2024 Procedure Only [facility] [address] [place] [address] 02/27/2024 7:00 AM RESIDENTIAL PROPERTY TAX APPRAISER Appointment [facility] [address], [place] [address] 02/29/2024 7:00 AM RESIDENTIAL PROPERTY TAX APPRAISER Appointment [facility] [address] [place] [address] 03/05/2024 7:00 AM RESIDENTIAL PROPERTY TAX APPRAISER Appointment [facility] [address] [place] [address] Health Maintenance Due Date Last Done Comments [...] Date/Time Associated Diagnosis Comments GLUCOSE METER Routine 02/16/2024 7:57 AM RESIDENTIAL PROPERTY TAX APPRAISER SCAN-CARDIAC REHABILITATION 02/16/2024 7:03 AM RESIDENTIAL PROPERTY TAX APPRAISER GLUCOSE METER Routine 02/15/2024 8:00 AM RESIDENTIAL PROPERTY TAX APPRAISER GLUCOSE METER Routine 02/15/2024 7:07 AM RESIDENTIAL PROPERTY TAX APPRAISER SCAN-CARDIAC REHABILITATION 02/15/2024 7:03 AM RESIDENTIAL PROPERTY TAX APPRAISER SCAN-CARDIAC REHABILITATION 02/15/2024 7:03 AM RESIDENTIAL PROPERTY TAX APPRAISER SCAN-CARDIAC REHABILITATION 02/13/2024 7:07 AM RESIDENTIAL PROPERTY TAX APPRAISER SCAN-CARDIAC REHABILITATION 02/09/2024 7:03 AM RESIDENTIAL PROPERTY TAX APPRAISER SCAN-CARDIAC REHABILITATION 02/09/2024 7:03 AM RESIDENTIAL PROPERTY TAX APPRAISER SCAN-CARDIAC REHABILITATION 02/08/2024 7:02 AM RESIDENTIAL PROPERTY TAX APPRAISER SCAN-CARDIAC REHABILITATION 02/02/2024 7:02 AM CDT SCAN-CARDIAC [...] Health Maintenance Results * (ABNORMAL) GLUCOSE METER (02/16/2024 7:57 AM RESIDENTIAL PROPERTY TAX APPRAISER) Only the most recent of11 resultswithin the time period is included. GLUCOSE METER 166(H) 65 - 100 mg/dL 02/16/2024 8:00 AM RESIDENTIAL PROPERTY TAX APPRAISER [facility] Blood BLOOD SPECIMEN / Unknown 02/16/2024 7:57 AM RESIDENTIAL PROPERTY TAX APPRAISER 02/16/2024 8:00 AM RESIDENTIAL PROPERTY TAX APPRAISER Doctor Unknown CHEMISTRY Performing Organization Address City/State/[facility] Co de Phone Number [facility] [address] [phone] * SCAN-CARDIAC REHABILITATION (02/16/2024 7:03 AM RESIDENTIAL PROPERTY TAX APPRAISER) Only the most recent of32 resultswithin the time period is included. Scanner OTHER * US VENOUS INSUFFICIENCY LOWER EXTREMITY BILATERAL (12/19/2023 1:21 PM CDT) Anatomical Region Laterality Modality LEGS Ultrasound 12/19/2023 9:22 AM CDT Narrative 12/19/2023 5:10 PM CDT VASCULAR ULTRASOUND REPORT JOSE GUADALUPE RIDLEY Accession#: ?? [id number] : ?1960 ??Study Date: ?? 12/19/2023 9:22:18 AM Age: ?63 years ?? Tech: ? PMK Gender: M ?Referring MD: ANTOINETTE SMITH Site: [facility] Study [...] and distal calf. 5. Incompetent varicose and/or farm machinery set up mechanic veins as listed below. COMPARISON: No prior [...] Accreditation Commission (IAC/Vascular), www.intersocietal.org/vascular Report generated by nvite. ??Final ?? Procedure Note Anderson Petersen MD - 12/19/2023 VASCULAR ULTRASOUND REPORT JOSE GUADALUPE RIDLEY : 1960 Study Date: 12/19/2023 9:22:18 AM Age: 63 years Tech: PMK Gender: M Referring MD: ANTOINETTE SMITH Site: [facility] Study [...] and distal calf. 5. Incompetent varicose and/or farm machinery set up mechanic veins as listed below. COMPARISON: No prior [...] theIntersocietal Accreditation Commission (IAC/Vascular),www.intersocietal.org/vascular Report generated by nvite. Final Antoinette FAJARDO US * NM CARDIAC MPI STRESS TEST (12/13/2023 10:08 AM CDT) Anatomical Region Laterality Modality HEART Nuclear Medicine 12/13/2023 7:07 AM CDT Narrative 12/13/2023 12:48 PM CDT [address], [place] [address] Main: ?Myocardial Perfusion Report ?Rest/Stress 1 Day Single Isotope Gated SPECT imaging with Regadenoson(Lexiscan) stress JOSE GUADALUPE RIDLEY [facility] ID: [id number] Age: 63 : 1960 Nuclear Tech: KKD Exam Date: 12/13/2023 07:07 Gender: M RN/Ex. Civil Celebrant: HANG/TYLER Height: 70.9 in BSA: 2.43 m?? Monitoring Provider: KARY AIKEN Weight: 280 lbs BMI: 39.2 kg/m?? Ordering Provider: KAMRAN LI Location: [facility] Indication: S/P CABG x [...] / 60 % MPHR: 51 Double Product: [id number] Recovery HR(bpm): 71 Recovery BP(mmHg): 124 / [...] 59 KKD Stress: 99mTc Sestamibi 33.0 IV 0912/13/2023 45 KKD Post-Injection Exercise: No exercise followed [...] 0 Apical Lateral: 0 Apical Lateral: 0 Reynolds: 0 Reynolds: 0 Summed Stress Score: 2 Summed Rest [...] left ventricular wall motion. Anderson ??Lolis NOBLES [facility] Accredited Site (Electronically Signed) Final Date: 13 December 2023 12:48 ICD-10 Codes: Z95.1; I25.10 CC Providers: Dr. Munir Sahu Procedure Note Anderson Danielle MD - 12/13/2023 [facility] [address] [facility] [address], [place] [address] Main: Myocardial Perfusion Report Rest/Stress 1 Day Single Isotope Gated SPECT imaging withRegadenoson(Lexiscan) stress JOSE GUADALUPE RIDLEY ID: [id number] Age: 63 : 1960 Nuclear Tech: KKD Exam Date: 12/13/2023 07:07 Gender: M RN/Ex. Civil Celebrant: HANG/TYLER Height: 70.9 in BSA: 2.43 m?? Monitoring Provider:KARY AIKEN Weight: 280 lbs BMI: 39.2 kg/m?? Ordering Provider: KAMRAN LI Location: [facility] Indication: S/P CABG x [...] 142 / 60 % MPHR: 51 Double Product:[id number] Recovery HR(bpm): 71 Recovery BP(mmHg): 124 / [...] 0 Apical Lateral: 0 Apical Lateral: 0 Reynolds: 0 Reynolds: 0 Summed Stress Score: 2 Summed Rest [...] left ventricular wall motion. Anderson Danielle MD [facility] Accredited Site (Electronically Signed) Final Date: 13 December 2023 12:48 ICD-10 Codes: Z95.1; I25.10 CC Providers: Dr. Munir Sahu Kamran Li MD [place] * LIPID PANEL (09/18/2023 4:17 AM CDT) CHOLESTEROL,TOTAL 174 100 - 199 mg/dL 09/18/2023 4:54 AM T [facility] Comment: Cholesterol, Total Reference Ranges Desirable <200 mg/dL Borderline 200-239 mg/dL High >=240 mg/dL TRIGLYCERIDES 105 <150 mg/dL 09/18/2023 4:54 AM CDT [facility] HDL CHOLESTEROL 42 >40 mg/dL 4:54 AM T [facility] NON-HDL CHOLESTEROL 132 <145 mg/dl 09/18/2023 4:54 AM T [facility] CHOL/HDL RATIO 4.14 <4.50 09/18/2023 4:54 AM T [facility] LDL CHOLESTEROL 111 <=130 mg/dL 09/18/2023 4:54 AM T [facility] VLDL CHOLESTEROL 21 <=30 mg/dL 09/18/2023 4:54 AM T [facility] PROVIDER ORDERED STATUS RANDOM 09/18/2023 4:54 AM T [facility] Blood BLOOD SPECIMEN / Unknown Venipuncture / Unknown 09/18/2023 4:17 AM CDT 09/18/2023 4:27 AM CDT Wendy Lomeli DO CHEMISTRY [facility] SENDOUT INTERNAL ZIP [id number] [place] [id number] from Last 3 Months or Most Recently [...] Code Status Discussion: Not Discussed Care Teams Mine Engineering Superintendent Relationship Specialty Start Date End Date Munir Sahu MD [address] [place] [address] PCP - General Family Practice 09/17/23 [facility] [address] [place] [address] 09/28/23
--- OUTSIDE RECORDS SUMMARY | 2024-02-17 07:49 | XMS_ITS | Clinical Summary ---
Author Organization [place] Address [address] [place] [address] Care Team Providers Care Policy And Planning Manager Name Role Phone Munir Sahu MD Primary Care Provider + [phone] Allergies Active Allergy Reactions Criticality Noted Date [...] Plan of Treatment Not on file Insurance [facility] [employer] Advance Directives For more information, please contact: [phone] * Full Code (Latest Code Status on File) Date Activated Date Inactivated Comments 11/06/2019 2:19 PM 11/07/2019 9:06 PM All basic and advanced life-sustaining interventions are performed as appropriate Question Answer Comments Code status determined by: Unable to det ermine; FULL CODE until documents or legal decision maker available Care Teams Policy And Planning Manager Relationship Specialty Start Date End Date Munir Sahu MD PCP - General Family Practice 10/22/19
--- OUTSIDE RECORDS SUMMARY | 2024-02-17 07:50 | XMS_ITS | Referral Summary ---
Author Organization [facility] Address [address] [place] [address] Care Team Providers Care Electrician Deck Name Role Phone Elsewhere, Pcp Primary Care Provider Unavailabl e Source Comments Patient records contain information from all sites at [facility]. For routine questions regarding patient records, call [phone] during business hours, M-F 8:00 AM - 5:00 PM Central Time. Record requests for emergency care only can be directed to [phone] at any time.[facility] Allergies Active Allergy Reactions Criticality Noted Date Comments Dimethicone-Petrolatum Rash 02/01/2014 Horse [place] Rash 07/16/2016 Silver Sulfate-Foam Bandage Rash 02/02/20 [...] mouth. 0 Active FreeStyle João 14 Day Cornish misc 1 Active FreeStyle João 14 Day [...] on file Legal Sex Male 11:54 PM PATTERNMAKER HELPER Gender Identity Not on file Sexual Orientation Not on file Last Filed Vital Signs Vital Sign Reading Time Taken Comments Blood Pressure 160/85 04/17/2021 1:03 PM PATTERNMAKER HELPER Pulse 74 04/17/2021 1:03 PM PATTERNMAKER HELPER Temperature 36.4 ??C (97.5 ??F) 04/17/2021 1:03 PM CS T Respiratory Rate 14 02/15/2021 1:17 PM PATTERNMAKER HELPER Oxygen Saturation 95% 02/15/2021 1:17 PM PATTERNMAKER HELPER Inhaled Oxygen Concentration - - Weight 138 kg (304 lb 3.8 oz) 04/17/2021 1:03 PM PATTERNMAKER HELPER Height 178 cm (5' 10.08) 04/17/2021 1:03 PM PATTERNMAKER HELPER Body Mass Index 43.55 04/17/2021 1:03 PM PATTERNMAKER HELPER Plan of Treatment Not on file Procedures [...] BLOOD ADD-ON Final Result Performing Organization Address City/[facility] de Phone Number POWERCHART * (ABNORMAL) [...] 5.2 GDL POWERCHART HXeGFR (MDRD) >60 >=60 [id number] 2 POWERCHART eGFR Black/ >60 >=60 [id number] POWERCHART Blood 01/08/2014 10:1 6 AM CDT Curtis Avery M.D. LAB BLOOD ADD-ON Final Result POWERCHART from Last 3 Months or Most Recently Relevant to Health Maintenance Insurance [facility] [place] [id number] Care Teams Electrician Deck Relationship Specialty Start Date End Date Elsewhere, Pcp PCP - General Family Medicine 06/15/17
--- OUTSIDE RECORDS SUMMARY | 2024-02-17 07:50 | XMS_ITS ---
Author Organization [facility] Address [address] [place] [address] Care Team Providers Care Occupational Work Experience Teacher Name Role Phone Unavailable Unavailable Unavailable Surgery Details Not on file Complications Check Surgery Details section. Procedure Estimated Blood Loss Check Surgery Details section. Procedure Findings Check Surgery Details section. Procedure Specimens Taken Check Surgery Details section.
== END 2024-02-17 07:48 | disposition home or self-care (01) ==
LOC: WOUND 07:47
PROVIDERS: PCP Family Medicine; Visit Provider Nurse Practitioner Family
DX: I87.312 Chronic venous hypertension (idiopathic) with ulcer of left lower extremity (principal); I87.2 Venous insufficiency (chronic) (peripheral); I89.0 Lymphedema, not elsewhere classified; L97.322 Non-pressure chronic ulcer of left ankle with fat layer exposed
CPT/HCPCS: 11042

== ENCOUNTER 2024-02-24 07:54 | Outpatient (CLI) | payer OTHER, SELFPAY ==
--- OUTSIDE RECORDS SUMMARY | 2024-02-24 07:56 | XMS_ITS | Data Portability ---
Author Organization [place] [facility] Address [address] [facility] [address] [place] [address] Care Team Providers Care Plastic Tile Setter Name Role Phone GORDY SOL Primary Care Provider [phone] Assessment Encounter Date Assessment Date Assessment LastModified by Organization Details LastModified Time 11/21/2019 11/21/2019 59M with [id number] [place] 3+4=7 prostate cancer s/p RALP. Discussed pathology, risk of recurrence, need for ongoing PSA monitoring. Small anastomotic leak, will cont Choi x 1 more week. Worsened LE edema, likely chronic, but will check LE u/s to be sure no DVT. [email or web address] Not available 11/21/2019 14:07:03 01/02/2020 01/02/2020 59M with [id number] [place] 3+4=7 prostate cancer s/p RALP. 1) Prostate cancer - f/u 4 months with PSA 2) EVETTE, moderate - cont Kegels - consider PFPT 3) ED - Cialis PRN [email or web address] Not available 01/02/2020 09:34:03 05/01/2020 05/01/2020 60M with [id number] [place] 3+4=7 prostate cancer s/p RALP 6 months ago. MICHAEL. 1) Prostate cancer - f/u 6 months with PSA 2) EVETTE, moderate - cont Kegels - consider PFPT 3) ED - Cialis PRN [email or web address] Not available 05/01/2020 10:47:29 10/24/2020 10/24/2020 60M with [id number] [place] 3+4=7 prostate cancer s/p RALP 1 year [...] floor therap y referr al 2020 021 [facility], [address], [facility], [place], [address], 09:57:49 Procedures None record ed. Surgeries None record ed. Imaging None record ed. Medication Orders None record ed. Patient TargetsNo targets recorded. Patient Instructions Encounter Date Encounter Id Patient Instructions Last Modified By Organization Details Last Modified Time 11/28/2019 [id number] To follow up sumaya Doshi at his [...] Not Available [facility] [address], [place], [address], 05/01/2020 10:40:29 02/11/2020 lab* PSA <0.04 normal Not Available No t Available 01/07/2020 12:33:24 01/02/2020 PSA, serum or plasm a PSA, Total <0.04 ng/Ml Not Available [facility] [address], [place], [address], 01/02/2020 09:14:10 10/25/19 21 10/24/2020 PSA, serum or plasm a PSA, Total <0.04n g/mL Not Available [facility] [address], [place], [address], 10/24/2020 10:45:30 11/23/19 20 11/21/2019 CT, pelvi s, w/o contr ast No observ ation record ed. cedric Not Available 17:13:18 Result Notes None recorded. Problems Name Problem SNOMED Code Status Onset Date Resolution Date Notes Provider Name and Address Organization Details Recorded Time Carcinoma of prostate 914002462 Active 2019 Caroline kruger [facility] 0 10:59:25 Male urinary stress incontinence 238841440 Active 2020 Momo mcfarlane MD, PHD [address] [place] [address],[address] [place] [address], [phone], [facility] 10:47:38 Primary erectile dysfunction 425575996 Active 2020 Momo mcfarlane MD, PHD [address] [place] [address],[address] [place] [address], [address], [facility] 10:47:58 Problem Notes None recorded. Procedures Surgical History Date Name Laterality Status Provider Name and Address Organization Details Recorded Time 10/25/19 21 Blood Draw/MOTOR VEHICLE TECHNICIAN/PSA RESULTS completed Momo baez MD, PHD [address] [place] [address],[address], [place], [address], [facility] 10/24/2020 10:45:26 05/01/19 21 Blood Draw/MOTOR VEHICLE TECHNICIAN/PSA RESULTS completed Momo baez MD, PHD [address] [place] [address],[address], [address], [facility] 05/01/2020 10:40:25 01/02/20 20 Blood Draw/MOTOR VEHICLE TECHNICIAN/PSA RESULTS completed Janice Ayala [facility] 01/02/2020 09:14:04 11/28/19 20 Choi Catheter Removal completed Carolinesasha Smith [facility] 02/04/2020 12:00:10 Prostatectomy completed Momo baez MD, PHD [address] [place] [address], [address], [facility] 10/24/2020 10:44:48 colonoscopy completed Monica Awan [facility] 12/09/2020 10:47:07 Imaging [...] Name and Address Organization Details Recorded Time 128657 silver medicatio n Not available Not available Not available 11/21/2019 16821 43 RxNorm Caroline Smith [place], [facility] 0 11:09:54 929138 adhesive tape environme nt,medica tion Not available Not available Not available 11/21/2019 [id number] UNK Caroline Hoopertobias kruger, [facility] 0 11:10:01 Medications Name Sig [...] Updated DateTime 01/02/2020 180.34 cm 39.3 kg/m2 192010.05 g Caroline Smith [facility] 01/02/2020 09:09:40 Date Recorded Body height Body mass index (BMI) Body weight Provider Name and Address Organization Details Last Updated DateTime 05/01/2020 180.34 cm 39.3 kg/m2 557896.05 g Momo baez MD, PHD [address] [place], [place] [address] [place] [address] 05/01/2020 10:39:59 Date Recorded Body height Body mass index (BMI) Body weight Provider Name and Address Organization Details Last Updated DateTime 10/24/2020 180.34 cm 39.7 kg/m2 144066.83 g Momo baez MD, PHD [address] [place], [place] [address] [place] [address] 10/24/2020 10:44:13 Date Recorded Body height Body mass index (BMI) Body weight Provider Name and Address Organization Details Last Updated DateTime 11/21/2019 180.34 cm 39.3 kg/m2 939207.05 g Caroline Smith [facility] 11/21/2019 11:09:04 Social History Question Answer Notes LastModified by Organizat ion Details LastModified Time Tobacco Smoking Status Never Smoker Caroline kruger [facility] 11/21/2019 11:10:15 What Is Your [...] Diagnosis/Indication Diagnosis SNOMED-CT Code Diagnosis ICD10 Code [id number] Momo beard MD, PHD [facility] [address] [place] [address] 11/21/2019 10:45:55 11/21/2019 15:00:28 Malignant tumor of prostate 765702283 C61 [id number] [facility] [place] [address] 11/28/2019 09:57:13 02/06/2020 03:54:17 [id number] Momo beard MD, PHD [facility] [address] [place] [address] 01/02/2020 08:46:59 01/02/2020 14:22:16 Malignant tumor of prostate 270080684 C61 [id number] Momo beard MD, PHD [facility] [place] [address] 05/01/2020 09:26:51 05/01/2020 12:03:29 Malignant tumor of prostate 417601147 C61 Primary er ectile dysfunction 272260796 N52.9 [id number] Momo beard MD, PHD [facility] [address] [place] [address] 10/24/2020 10:28:04 10/27/2020 16:45:05 Carcinoma of prostate 468340183 C61 Malignant tumor of prostate 609771227 C61 Primary er ectile dysfunction 512410932 N52.9 Male urina ry stress incontinence 505605573 N39.3 Health Concerns Section Related Observation LastModified by Organization Detai ls LastModified Time None Recorded Concern Status LastModified by Organization Details LastModified Time None Recorded Advance Directives Directive None Recorded Payers Encounter Date Sequence Insurance Name Policy Number Policy Archibald Covered Member ID Archibald Member ID Guarantor Name 11/21/2019 1 [facility] [id number] Julien Ridley [id number] Julien Ridley 11/28/2019 1 [facility] [id number] Julien Gonsalvesretmaynor [id number] Julien Ridley 01/02/2020 1 [facility] [id number] Julien Gonsalvesretmaynor [id number] Julien Ridley 05/01/2020 1 [facility] [id number] Julien Ridley [id number] Julien Ridley 10/24/2020 1 [facility] [id number] Julien Ridley [id number] Julien Ridley Notes Date Note Type Note Provider Name and Address Organization Details Recorded Time 11/21/2019 text/html 59M s/p RALP 11/06/19 for [id number] [place] 3+4=7 prostate cancer (0/12 LN, -SMS) Overall [...] ED: 05/09 Momo Holliday MD, PHD [address] [facility] [address], [place], [address], [facility] 11/21/2019 14:07:42 01/02/2020 text/html 59M with [id number] 3+4=7 prostate cancer (0/12 LN, -SMS)s/p RALP 11/06/19. Small anastomotic leak, catheter removed 11/28/19. Overall doing well. C/o some leakage with BMs and position changes. Uses multiple depends per day...... LE u/s to eval for dvt last visit was negative PSA Results07/27/19: 6.59: <0.04 UF: 4/5EF: 5/5Pre-op EF: 2/5 Momo Holliday MD, PHD [address] [place] [address],[address], [address], [facility] 01/02/2020 09:35:54 05/01/2020 text/html 60M with [id number] 3+4=7 prostate cancer (0/12 LN, -SMS)s/p RALP 11/06/19. Small anastomotic leak, catheter removed 11/28/19. Overall doing well. C/o some leakage with BMs and position changes. Uses 4ppd which is improvement. No problems with incisions. PSA Results07/27/19: 6.: <0.041/: <0.04 UF: 35EF: 5/5Pre-op EF: 2 Momo Holliday MD, PHD [address] [place] [address],[address], [address], [facility] 05/01/2020 10:48:15 10/24/2020 text/html 60M with [id number] [place] 3+4=7 prostate cancer (0/12 LN, -SMS) s/p RALP 11/06/19 Overall doing well. C/o some leakage with BMs and position changes and sexual activity. Uses 4ppd still. No problems with incisions. PSA Results07/27/19: 6.59: <0.041/: <0.047/: <0.04 UF: 3/5EF: 5/5Pre-op EF: 25 Momo Holliday MD, PHD [address] [place] [address],[address], [address], [facility] 10/24/2020 11:30:55
--- OUTSIDE RECORDS SUMMARY | 2024-02-24 07:57 | XMS_ITS | Referral Summary ---
Author Organization [place] Address [address] [place] [address] Care Team Providers Care Equipment Manager Name Role Phone Munir Sahu MD Primary Care Provider + [phone] Allergies Active Allergy Reactions Criticality Noted Date [...] 61 11/06/2019 4:15 PM CDT Temperature 36.7 C (98.1 F) 11/07/2019 3:23 PM CDT Respiratory Rate 16 11/07/2019 3:23 PM CDT Oxygen Saturation 95% 11/07/2019 3:23 PM CDT Inhaled Oxygen Concentration - - Weight 134.9 kg (297 lb 8 oz) 11/06/2019 5:51 AM CDT Height 177.8 cm (5' 10) 11/06/2019 5:51 AM CDT Body Mass Index 42.69 11/06/2019 5:51 AM CDT Plan of Treatment Not on file Insurance [facility] Advance Directives For more information, please contact: [phone] * Full Code (Latest Code Status on File) Date Activated Date Inactivated Comments 11/06/2019 2:19 PM 11/07/2019 9:06 PM All basic and advanced life-sustaining interventions are performed as appropriate Question Answer Comments Code status determined by: Unable to det ermine; FULL CODE until documents or legal decision maker available Care Teams Equipment Manager Relationship Specialty Start Date End Date Munir Sahu MD PCP - General Family Practice 10/22/19
--- OUTSIDE RECORDS SUMMARY | 2024-02-24 07:57 | XMS_ITS | Clinical Summary ---
Author Organization [place] Address [address] [place] [address] Care Team Providers Care Cancer Registry Coordinator Name Role Phone Munir Sahu MD Primary Care Provider + [phone] Allergies Active Allergy Reactions Criticality Noted Date [...] Treatment Not on file Insurance [facility] [employer] Advance Directives For more information, please contact: [phone] * Full Code (Latest Code Status on File) Date Activated Date Inactivated Comments 11/06/2019 2:19 PM 11/07/2019 9:06 PM All basic and advanced life-sustaining interventions are performed as appropriate Question Answer Comments Code status determined by: Unable to det ermine; FULL CODE until documents or legal decision maker available Care Teams Cancer Registry Coordinator Relationship Specialty Start Date End Date Munir Sahu MD PCP - General Family Practice 10/22/19
--- OUTSIDE RECORDS SUMMARY | 2024-02-24 07:57 | XMS_ITS ---
Author Organization [facility] Address [address] [place] [address] Care Team Providers Care Professor Of Pathology Name Role Phone Unavailable Unavailable Unavailable Surgery Details Not on file Complications Check Surgery Details section. Procedure Estimated Blood Loss Check Surgery Details section. Procedure Findings Check Surgery Details section. Procedure Specimens Taken Check Surgery Details section.
--- OUTSIDE RECORDS SUMMARY | 2024-02-24 07:57 | XMS_ITS | Clinical Summary ---
Author Organization [facility] Address [address] [place] [address] Care Team Providers Care Band Maker Name Role Phone Elsewhere, Pcp Primary Care Provider Unavailabl e Source Comments Patient records contain information from all sites at [facility]. For routine questions regarding patient records, call [phone] during business hours, M-F 8:00 AM - 5:00 PM Central Time. Record requests for emergency care only can be directed to [phone] at any time.[facility] Allergies Active Allergy Reactions Criticality Noted Date Comments Dimethicone-Petrolatum Rash 02/01/2014 Horse [place] Rash 07/16/2016 Silver Sulfate-Foam Bandage Rash 02/02/20 [...] mouth. 0 Active FreeStyle João 14 Day [place] misc 1 Active FreeStyle João 14 Day [...] on file Legal Sex Male 11:54 PM STATION MASTER Gender Identity Not on file Sexual Orientation Not on file Last Filed Vital Signs Vital Sign Reading Time Taken Comments Blood Pressure 160/85 04/17/2021 1:03 PM STATION MASTER Pulse 74 04/17/2021 1:03 PM STATION MASTER Temperature 36.4 C (97.5 F) 04/17/2021 1:03 PM STATION MASTER Respiratory Rate 14 02/15/2021 1:17 PM STATION MASTER Oxygen Saturation 95% 02/15/2021 1:17 PM STATION MASTER Inhaled Oxygen Concentration - - Weight 138 kg (304 lb 3.8 oz) 04/17/2021 1:03 PM STATION MASTER Height 178 cm (5' 10.08) 04/17/2021 1:03 PM STATION MASTER Body Mass Index 43.55 04/17/2021 1:03 PM STATION MASTER Plan of Treatment Health Maintenance Due Date [...] BLOOD ADD-ON Final Result Performing Organization Address City/[facility] de Phone Number POWERCHART * [...] BLOOD ADD-ON Final Result Performing Organization Address [facility] de Phone Number POWERCHART * [...] 5.2 GDL POWERCHART HXeGFR (MDRD) >60 >=60 [id number] 2 POWERCHART eGFR Black/ >60 >=60 [id number] POWERCHART Blood 01/08/2014 10:1 6 AM CDT Curtis Avery M.D. LAB BLOOD ADD-ON Final Result POWERCHART from Last 3 Months or Most Recently Relevant to Health Maintenance [facility] [place] [id number] Care Teams Band Maker Relationship Specialty Start Date End Date Elsewhere, Pcp PCP - General Family Medicine 06/15/17
--- OUTSIDE RECORDS SUMMARY | 2024-02-24 07:57 | XMS_ITS | Clinical Summary ---
Author Organization [facility] Address [place], [place] [address] Care Team Providers Care Motocross Racer Name Role Phone Munir Sahu MD Primary Care Provider + [facility] [place] Unavailable [phone] Allergies Active Allergy Reactions Criticality Noted Date [...] by insurance) 9 mL 09/28/2023 Active Insulin Pilger, Disposable, (Susana Pen Needle) 32 gauge x [...] Tablet (5 mg) by mouth once daily. 90 Tablet 3 02/23/2024 Active amLODIPine (NORVASC) 5 mg tabletIndications :Essential hypertension,CAD, multiple vessel Take 1 Tablet (5 mg) by mouth once daily. 30 Tablet 1 12/13/2023 Discontinu ed(Reorder (E-cancel not sent)) Active Problems Problem Noted Date Diagnosed Date Coronary artery disease invo lving [place] coronary artery without angina pectoris 10/28/2023 Overview [...] Encounters Date Type Department Care Team Description 02/23/2024 6:56 AM TERRITORY BUSINESS MANAGER - 02/23/2024 11:59 PM TERRITORY BUSINESS MANAGER Hospital Encounter [facility] [address] [facility] [place] [address] 02/23/2024 Refill [facility] [address] [place] [address] Kamran Li MD Refill Request ([facility]) 02/23/2024 Travel 02/22/2024 6:56 AM TERRITORY BUSINESS MANAGER - 02/22/2024 11:59 PM TERRITORY BUSINESS MANAGER Hospital Encounter [facility] [address] [place] [address] 02/22/2024 Travel 02/20/2024 7:00 AM TERRITORY BUSINESS MANAGER - 02/20/2024 11:59 PM TERRITORY BUSINESS MANAGER Hospital Encounter [facility] [address] [place] [address] 02/20/2024 Procedure Only [facility] [address] [place] [address] Device Check (Remote Medtronic Pacemaker E... 02/20/2024 Travel 02/16/2024 6:59 AM TERRITORY BUSINESS MANAGER - 02/16/2024 11:59 PM TERRITORY BUSINESS MANAGER Hospital Encounter [facility] [address] [facility] [place] [address] 02/16/2024 Travel 02/15/2024 6:56 AM TERRITORY BUSINESS MANAGER - 02/15/2024 11:59 PM TERRITORY BUSINESS MANAGER Hospital Encounter [facility] [address] [facility] [place] [address] 02/15/2024 Travel 02/13/2024 6:59 AM TERRITORY BUSINESS MANAGER - 02/13/2024 11:59 PM TERRITORY BUSINESS MANAGER Hospital [facility] [place] [address] 02/13/2024 Travel 02/09/2024 6:57 AM TERRITORY BUSINESS MANAGER - 02/09/2024 11:59 PM TERRITORY BUSINESS MANAGER Hospital [facility] [address] [facility] [address] 02/09/2024 Travel 02/08/2024 6:57 AM TERRITORY BUSINESS MANAGER - 02/08/2024 11:59 PM TERRITORY BUSINESS MANAGER [facility] [facility] [address] 02/08/2024 Travel 02/02/2024 6:56 AM CDT - 02/02/2024 11:59 PM CDT [facility] [address] [facility] [address] 02/02/2024 Travel 02/01/2024 6:56 AM CDT - 02/01/2024 11:59 PM CDT Hospital Encounter [facility] [address] [place] [address] 02/01/2024 Travel 01/30/2024 7:00 AM CDT - 01/30/2024 11:59 PM CDT [facility] [address] [facility] [address] 01/30/2024 Travel 01/25/2024 6:59 AM CDT - 01/25/2024 11:59 PM CDT Hospital Encounter [facility] [address] [place] [address] 01/25/2024 Travel 01/23/2024 7:00 AM CDT - 01/23/2024 11:59 PM CDT Hospital Encounter [facility] [address] [place], [place] [address] [address] 01/23/2024 Travel 01/19/2024 7:00 AM CDT - 01/19/2024 11:59 PM CDT Hospital [facility]counter [facility] [address] [facility] [address] 01/19/2024 Travel 01/18/2024 6:57 AM CDT - 01/18/2024 11:59 PM CDT Hospital Encounter [facility] [address] [employer], [place] [address] 01/18/2024 Travel 01/16/2024 7:00 AM CDT - 01/16/2024 11:59 PM CDT Hospital Encounter [facility] [address] [employer], [place] [address] 01/16/2024 Travel 01/12/2024 6:58 AM CDT - 01/12/2024 11:59 PM CDT Hospital Encounter [facility] [address] [employer], [place] [address] 01/12/2024 Travel 01/11/2024 6:56 AM CDT - 01/11/2024 11:59 PM CDT Hospital Encounter [facility] [address] [employer], [place] [address] 01/11/2024 Travel 01/05/2024 6:56 AM CDT - 01/05/2024 11:59 PM CDT Hospital Encounter [facility] [address] [place] [address] 01/05/2024 Travel 01/04/2024 6:56 AM CDT - 01/04/2024 11:59 PM CDT Hospital Encounter [facility] [address] [employer], [place] [address] 01/04/2024 Travel 01/02/2024 7:00 AM CDT - 01/02/2024 11:59 PM CDT Hospital Encounter [facility] [address] [employer], [place] [address] 01/02/2024 Travel 12/22/2023 6:51 AM CDT - 12/22/2023 11:59 PM CDT Hospital Encounter [facility] [address] [employer], [place] [address] 12/22/2023 Travel 12/21/2023 6:51 AM CDT - 12/21/2023 11:59 PM CDT Hospital Encounter [facility] [address] [place] [address] 12/21/2023 Travel 12/19/2023 9:30 AM CDT Orders Only [facility] [address] [place] [address] 2 scans: (2-Ord) US VENOUS INSUFFICIENCY LOWER EXTREMITY BILATERAL ([id number]) 12/19/2023 7:30 AM CDT - 12/19/2023 11:59 PM CDT Hospital Encounter [facility] [address] [place] [address] 12/19/2023 Travel 12/15/2023 6:57 AM CDT - 12/15/2023 11:59 PM CDT Hospital Encounter [facility] [address] [place] [address] 12/15/2023 Travel 12/14/2023 6:54 AM CDT - 12/14/2023 11:59 PM CDT Hospital Encounter [facility] [address] [place] [address] 12/14/2023 Travel 12/13/2023 1:30 PM CDT Office Visit [facility] [address] [place] [phone] Kamran Li MD Follow Up (Dr. Li [...] PM CDT Hospital Encounter [facility] [address] [place] [address] Kamran Li MD CAD, multiple vessel; S/p 3V CABG (SHER-LAD, LISA-ramus, radial-OM), 09/23/2023 12/13/2023 Travel 12/12/2023 7:00 AM CDT - 12/12/2023 11:59 PM CDT Hospital Encounter [facility] [address] [place] [address] 12/12/[address] [address] Gina Jaime Cardiovascular Diagnostic Testing (lvm to confirm 12/13/23 stress test appt) 12/12/2023 Travel 12/08/2023 6:56 AM CDT - 12/08/2023 11:59 PM CDT Hospital Encounter [address] [place] [address] 12/08/2023 Travel 12/07/2023 6:52 AM CDT - 12/07/2023 11:59 PM CDT Hospital Encounter [facility] [address] [place] [address], [place] [address] 12/07/2023 Travel 12/01/2023 6:55 AM CDT - 12/01/2023 11:59 PM CDT Hospital Encounter [facility] [address] [place] [address], [place] [address] 12/01/2023 Travel 11/30/2023 6:55 AM CDT - 11/30/2023 11:59 PM CDT Hospital Encounter [address] [address] 11/30/2023 Travel 11/29/2023 9:09 AM CDT - 11/29/2023 11:59 PM CDT Hospital Encounter [address] [place] [address] Alejandra Lau PA S/p 3V CABG (SHER-LAD, LISA-ramus, radial-OM), 09/23/2023 11/29/2023 Travel 11/28/2023 7:30 AM CDT Home Care Visit [facility] [address] [place] [phone] Elvira Reyes RN SN - OASIS DISCHARGE from Last 3 Months Family History Medical [...] 70 12/13/2023 11:05 AM CDT Temperature 36.1 C (96.9 F) 11/28/2023 7:45 AM CDT Respiratory Rate 16 12/13/2023 11:05 AM CDT Oxygen Saturation 98% 12/13/2023 11:05 AM CDT Inhaled Oxygen Concentration - - Weight 132.9 kg (293 lb) 12/13/2023 11:05 AM CDT Height 180.3 cm (5' 11) 12/13/2023 11:05 AM CDT Body Mass Index 40.87 12/13/2023 11:05 AM CDT Plan of Treatment Upcoming Encounters Date Type Department Care Team (Late st Contact Info) Description 02/27/2024 7:00 AM TERRITORY BUSINESS MANAGER Appointment [facility] [address] [facility] [place] [address] 02/29/2024 7:00 AM TERRITORY BUSINESS MANAGER Appointment [facility] [address] [facility] [place] [address] 03/05/2024 7:00 AM TERRITORY BUSINESS MANAGER Appointment [facility] [address] [facility] [place] [address] 05/29/2024 Procedure Only [facility] [address] [facility] [address] [place] [phone] Health Maintenance Due Date Last Done Comments [...] Priority Date/Time Associated Diagnosis Comments SCAN-CARDIAC REHABILITATION 02/23/2024 7:00 AM TERRITORY BUSINESS MANAGER SCAN-CARDIAC REHABILITATION 02/22/2024 7:02 AM TERRITORY BUSINESS MANAGER SCAN-CARDIAC REHABILITATION 02/20/2024 7:07 AM TERRITORY BUSINESS MANAGER GLUCOSE METER Routine 02/16/2024 7:57 AM TERRITORY BUSINESS MANAGER SCAN-CARDIAC REHABILITATION 02/16/2024 7:03 AM TERRITORY BUSINESS MANAGER GLUCOSE METER Routine 02/15/2024 8:00 AM TERRITORY BUSINESS MANAGER GLUCOSE METER Routine 02/15/2024 7:07 AM TERRITORY BUSINESS MANAGER SCAN-CARDIAC REHABILITATION 02/15/2024 7:03 AM TERRITORY BUSINESS MANAGER SCAN-CARDIAC REHABILITATION 02/15/2024 7:03 AM TERRITORY BUSINESS MANAGER SCAN-CARDIAC REHABILITATION 02/13/2024 7:07 AM TERRITORY BUSINESS MANAGER SCAN-CARDIAC REHABILITATION 02/09/2024 7:03 AM TERRITORY BUSINESS MANAGER SCAN-CARDIAC REHABILITATION 02/09/2024 7:03 AM TERRITORY BUSINESS MANAGER SCAN-CARDIAC REHABILITATION 02/08/2024 7:02 AM TERRITORY BUSINESS MANAGER SCAN-CARDIAC REHABILITATION 02/02/2024 7:02 AM CDT SCAN-CARDIAC [...] to Health Maintenance Results * SCAN-CARDIAC REHABILITATION (02/23/2024 7:00 AM TERRITORY BUSINESS MANAGER) Only the most recent of35 resultswithin the time period is included. Scanner OTHER * (ABNORMAL) GLUCOSE METER (02/16/2024 7:57 AM TERRITORY BUSINESS MANAGER) Only the most recent of11 resultswithin the time period is included. GLUCOSE METER 166(H) 65 - 100 mg/dL 02/16/2024 8:00 AM TERRITORY BUSINESS MANAGER [facility] Blood BLOOD SPECIMEN / Unknown 02/16/2024 7:57 AM TERRITORY BUSINESS MANAGER 02/16/2024 8:00 AM TERRITORY BUSINESS MANAGER Doctor Unknown CHEMISTRY [facility] [address] [address] * US VENOUS INSUFFICIENCY LOWER EXTREMITY BILATERAL (12/19/2023 1:21 PM CDT) Anatomical Region Laterality Modality LEGS Ultrasound 12/19/2023 9:22 AM CDT Narrative 12/19/2023 5:10 PM CDT VASCULAR ULTRASOUND REPORT JOSE GUADALUPE RIDLEY : 1960 Study Date: 12/19/2023 9:22:18 AM Age: 63 years Tech: PMK Gender: M Referring MD: ANTOINETTE SMITH Site: [facility] Study performed: Duplex US venous insufficiency, [...] and distal calf. 5. 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 COMPARISON: No prior [...] Accreditation Commission (IAC/Vascular), www.intersocietal.org/vascular Report generated by [employer]. Final Procedure Note Anderson Petersen MD - 12/19/2023 VASCULAR ULTRASOUND REPORT JOSE GUADALUPE RIDLEY : 1960 Study Date: 12/19/2023 9:22:18 AM Age: 63 years Tech: PMK Gender: M Referring MD: ANTOINETTE SMITH Site: [facility] Study performed: Duplex US venous insufficiency, [...] and distal calf. 5. 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 COMPARISON: No prior [...] theIntersocietal Accreditation Commission (IAC/Vascular),www.intersocietal.org/vascular Report generated by [employer]. Final Antoinette FAJARDO US * NM CARDIAC MPI STRESS TEST (12/13/2023 10:08 AM CDT) Anatomical Region Laterality Modality HEART Nuclear Medicine 12/13/2023 7:07 AM CDT Narrative 12/13/2023 12:48 PM CDT [address], [place] [address] Main: Myocardial Perfusion Report Rest/Stress 1 Day Single Isotope Gated SPECT imaging with Regadenoson(Lexiscan) stress JOSE GUADALUPE RIDLEY Songeugenia ID: [id number] Age: 63 : 1960 Nuclear Tech: KKD Exam Date: 12/13/2023 07:07 Gender: M RN/Ex. Feather Curling Machine Operator: HANG/TYLER Height: 70.9 in BSA: 2.43 m Monitoring Provider: EUGENIA AIKEN Weight: 280 lbs BMI: 39.2 kg/m Ordering Provider: KAMRAN LI Location: [facility] Indication: S/P CABG x 3; CAD, [...] artery disease, Previous CABG, Arrhythmia, Pacemaker/ICD Presenting Symptoms: Asymptomatic Cardiac Meds: Amlodipine. Aspirin. [...] / 60 % MPHR: 51 Double Product: [id number] Recovery HR(bpm): 71 Recovery BP(mmHg): 124 / [...] 0 Apical Lateral: 0 Apical Lateral: 0 Havelock: 0 Havelock: 0 Summed Stress Score: 2 Summed Rest Score: 4 Summed Difference Score: -2 0 - Normal 2 - Moderately Reduced Uptake 4 - Absent 1 - Mildly Reduced Uptake 3 - Severely Reduced Uptake X - Not Interpretable Perfusion: Images demonstrated a small sized, fixed perfusion abnormality in the mid and apical inferior rivers, consistent with infarction. FUNCTION Calculated via Gated SPECT Post Stress LV EF: 60 % EDV: 102 ml EDVI: 40 ml/m ESV: 41 ml ESVI: 16 ml/m LV Size and Function: Normal left ventricular size and systolic function with a calculated LVEF of 60%. LV Regional Function: Normal left ventricular wall motion. Anderson Danielle MD [facility] Accredited Site (Electronically Signed) Final Date: 13 December 2023 12:48 ICD-10 Codes: Z95.1; I25.10 CC Providers: Dr. Munir Sahu Procedure Note Anderson Danielle MD - 12/13/[address] [address] Main: Myocardial Perfusion Report Rest/Stress 1 Day Single Isotope Gated SPECT imaging withRegadenoson(Lexiscan) stress ARISTIDESJOSE GUADALUPE NATHAN Federico ID: [id number] Age: 63 : 1960 Nuclear Tech: KKD Exam Date: 12/13/2023 07:07 Gender: M RN/Ex. Feather Curling Machine Operator: HANG/TYLER Height: 70.9 in BSA: 2.43 m Monitoring Provider:EUGENIA AIKEN Weight: 280 lbs BMI: 39.2 kg/m Ordering Provider: KAMRAN LI Location: [facility] Indication: S/P CABG x 3; CAD, [...] 142 / 60 % MPHR: 51 Double Product:85842 Recovery HR(bpm): 71 Recovery BP(mmHg): 124 / [...] 0 Apical Lateral: 0 Apical Lateral: 0 Havelock: 0 Havelock: 0 Summed Stress Score: 2 Summed Rest [...] 60 % EDV: 102 ml EDVI: 40 ml/m ESV: 41 ml ESVI: 16 ml/m LV Size and Function: Normal left ventricular size and systolic functionwith a calculated LVEF of 60%. LV Regional Function: Normal left ventricular wall motion. Anderson Danielle MD [facility] Accredited Site (Electronically Signed) Final Date: 13 December 2023 12:48 ICD-10 Codes: Z95.1; I25.10 CC Providers: Dr. Munir Sahu Kamran Li MD NM * LIPID PANEL (09/18/2023 4:17 AM [facility]) [facility] CHOLESTEROL,TOTAL 174 100 - 199 mg/dL 09/18/2023 4:[address] [facility] Comment: Cholesterol, Total Reference Ranges Desirable <200 mg/dL Borderline 200-239 mg/dL High >=240 mg/dL TRIGLYCERIDES 105 <150 mg/dL 09/18/2023 4:[address] [facility] HDL CHOLESTEROL 42 >40 mg/dL 4:[address] [facility] NON-HDL CHOLESTEROL 132 <145 mg/dl 09/18/2023 4:[address] [facility] CHOL/HDL RATIO 4.14 <4.50 09/18/2023 4:[address] [facility] LDL CHOLESTEROL 111 <=130 mg/dL 09/18/2023 4:[address] [facility] VLDL CHOLESTEROL 21 <=30 mg/dL 09/18/2023 4:[address] [facility] PROVIDER ORDERED STATUS RANDOM 09/18/2023 4:[address] [facility] Blood BLOOD SPECIMEN / Unknown Venipuncture / Unknown 09/18/2023 4:17 AM CDT 09/18/2023 4:27 AM CDT Wendy Lomeli DO CHEMISTRY [facility] [place] [address]IP [id number] [place] [address] from Last 3 Months or Most Recently [...] Code Status Discussion: Not Discussed Care Teams Motocross Racer Relationship Specialty Start Date End Date Munir Sahu MD [address] [place] [address] PCP - General Family Practice 09/17/23 [facility] [address] [place] [address] 09/28/23
--- OUTSIDE RECORDS SUMMARY | 2024-02-24 07:57 | XMS_ITS | Referral Summary ---
Author Organization [facility] Address [address] [place] [address] Care Team Providers Care Rental Car Ferry Driver Name Role Phone Elsewhere, Pcp Primary Care Provider Unavailabl e Source Comments Patient records contain information from all sites at [facility]. For routine questions regarding patient records, call [phone] during business hours, M-F 8:00 AM - 5:00 PM Central Time. Record requests for emergency care only can be directed to [phone] at any time.[facility] Allergies Active Allergy Reactions Criticality Noted Date Comments Dimethicone-Petrolatum Rash 02/01/2014 Horse Proctor Rash 07/16/2016 Silver Sulfate-Foam Bandage Rash 02/02/20 [...] mouth. 0 Active FreeStyle João 14 Day [place] misc 1 Active FreeStyle João 14 Day [...] on file Legal Sex Male 11:54 PM COPY READER Gender Identity Not on file Sexual Orientation Not on file Last Filed Vital Signs Vital Sign Reading Time Taken Comments Blood Pressure 160/85 04/17/2021 1:03 PM COPY READER Pulse 74 04/17/2021 1:03 PM COPY READER Temperature 36.4 C (97.5 F) 04/17/2021 1:03 PM COPY READER Respiratory Rate 14 02/15/2021 1:17 PM COPY READER Oxygen Saturation 95% 02/15/2021 1:17 PM COPY READER Inhaled Oxygen Concentration - - Weight 138 kg (304 lb 3.8 oz) 04/17/2021 1:03 PM COPY READER Height 178 cm (5' 10.08) 04/17/2021 1:03 PM COPY READER Body Mass Index 43.55 04/17/2021 1:03 PM COPY READER Plan of Treatment Not on file Procedures [...] BLOOD ADD-ON Final Result Performing Organization Address City/[facility] de Phone Number POWERCHART [...] 5.2 GDL POWERCHART HXeGFR (MDRD) >60 >=60 [id number] 2 POWERCHART eGFR Black/ >60 >=60 [id number] POWERCHART Blood 01/08/2014 10:1 6 AM CDT Curtis Avery M.D. LAB BLOOD ADD-ON Final Result POWERCHART from Last 3 Months or Most Recently Relevant to Health Maintenance Insurance [place] [id number] [facility] [place]JWINDER [place] [id number] Care Teams Rental Car Ferry Driver Relationship Specialty Start Date End Date Elsewhere, Pcp PCP - General Family Medicine 06/15/17
== END 2024-02-24 07:55 | disposition home or self-care (01) ==
LOC: WOUND 07:54
PROVIDERS: PCP Family Medicine; Visit Provider Nurse Practitioner Family
DX: I87.312 Chronic venous hypertension (idiopathic) with ulcer of left lower extremity (principal); I87.2 Venous insufficiency (chronic) (peripheral); E11.622 Type 2 diabetes mellitus with other skin ulcer; I89.0 Lymphedema, not elsewhere classified; L97.322 Non-pressure chronic ulcer of left ankle with fat layer exposed; Z79.4 Long term (current) use of insulin
CPT/HCPCS: 97597

== ENCOUNTER 2024-03-09 07:52 | Outpatient (CLI) | payer OTHER, SELFPAY ==
--- OUTSIDE RECORDS SUMMARY | 2024-03-09 07:54 | XMS_ITS | Clinical Summary ---
Author Organization [facility] Address [place], [place] [address] Care Team Providers Care Geosciences Associate Professor Name Role Phone Munir Sahu MD Primary Care Provider + [facility] Unavailable [phone] Allergies Active Allergy Reactions Criticality Noted Date [...] by insurance) 9 mL 09/28/2023 Active Insulin [place], Disposable, (Susana Pen Needle) 32 gauge x [...] Diagnosed Date Coronary artery disease invo lving alturas coronary artery without angina pectoris 10/28/2023 Overview [...] Encounters Date Type Department Care Team Description 03/07/2024 6:54 AM SENIOR ACCOUNTING SPECIALIST - 03/07/2024 11:59 PM SENIOR ACCOUNTING SPECIALIST Hospital Encounter [facility] [address] [place] [address] 03/07/2024 Travel 03/05/2024 7:00 AM SENIOR ACCOUNTING SPECIALIST - 03/05/2024 11:59 PM SENIOR ACCOUNTING SPECIALIST Hospital Encounter [facility] [address] [place] [address] 03/05/2024 Travel 02/29/2024 6:56 AM SENIOR ACCOUNTING SPECIALIST - 02/29/2024 11:59 PM SENIOR ACCOUNTING SPECIALIST Hospital Encounter [facility] [address] [place] [address] 02/29/2024 Travel 02/27/2024 6:52 AM SENIOR ACCOUNTING SPECIALIST - 02/27/2024 11:59 PM SENIOR ACCOUNTING SPECIALIST Hospital Encounter [facility] [address] [place] [address] 02/27/2024 Travel 02/23/2024 6:56 AM SENIOR ACCOUNTING SPECIALIST - 02/23/2024 11:59 PM SENIOR ACCOUNTING SPECIALIST Hospital Encounter [facility] [address] [place] [address] 02/23/[address] [place] [address] Kamran Li MD Refill Request ([facility]) 02/23/2024 Travel 02/22/2024 6:56 AM SENIOR ACCOUNTING SPECIALIST - 02/22/2024 11:59 PM SENIOR ACCOUNTING SPECIALIST Hospital Encounter [facility] [address] [place] [address] 02/22/2024 Travel 02/20/2024 7:00 AM SENIOR ACCOUNTING SPECIALIST - 02/20/2024 11:59 PM SENIOR ACCOUNTING SPECIALIST Hospital Encounter [facility] [address] [place] [address] 02/20/2024 Procedure Only [facility] [address] [place] [address] Device Check (Remote Medtronic Pacemaker E... 02/20/2024 Travel 02/16/2024 6:59 AM SENIOR ACCOUNTING SPECIALIST - 02/16/2024 11:59 PM SENIOR ACCOUNTING SPECIALIST Hospital Encounter [facility] [address] [facility] [address] 02/16/2024 Travel 02/15/2024 6:56 AM SENIOR ACCOUNTING SPECIALIST - 02/15/2024 11:59 PM SENIOR ACCOUNTING SPECIALIST Hospital Encounter [facility] [address] [facility] [address] 02/15/2024 Travel 02/13/2024 6:59 AM SENIOR ACCOUNTING SPECIALIST - 02/13/2024 11:59 PM SENIOR ACCOUNTING SPECIALIST Hospital Encounter [facility] [address] [facility] [place] [address] 02/13/2024 Travel 02/09/2024 6:57 AM SENIOR ACCOUNTING SPECIALIST - 02/09/2024 11:59 PM SENIOR ACCOUNTING SPECIALIST Hospital Encounter [facility] [address] [facility] [address] 02/09/2024 Travel 02/08/2024 6:57 AM SENIOR ACCOUNTING SPECIALIST - 02/08/2024 11:59 PM SENIOR ACCOUNTING SPECIALIST Hospital Encounter [facility] [address] [facility] [address] 02/08/2024 Travel 02/02/2024 6:56 AM CDT - 02/02/2024 11:59 PM CDT Hospital Encounter [facility] [address] [facility] [address] 02/02/2024 Travel 02/01/2024 6:56 AM CDT - 02/01/2024 11:59 PM CDT Hospital Encounter [facility] [address] [facility] [address] 02/01/2024 Travel 01/30/2024 7:00 AM CDT - 01/30/2024 11:59 PM CDT Hospital Encounter [facility] [address] [place] [address] 01/30/2024 Travel 01/25/2024 6:59 AM CDT - 01/25/2024 11:59 PM CDT Hospital Encounter [facility] [address] [place] [address] 01/25/2024 Travel 01/23/2024 7:00 AM CDT - 01/23/2024 11:59 PM CDT Hospital Encounter [facility] [address] [place] [address] 01/23/2024 Travel 01/19/2024 7:00 AM CDT - 01/19/2024 11:59 PM CDT Hospital Encounter [facility] [address] [place] [address] 01/19/2024 Travel 01/18/2024 6:57 AM CDT - 01/18/2024 11:59 PM CDT Hospital Encounter [facility] [address] [place] [address] 01/18/2024 Travel 01/16/2024 7:00 AM CDT - 01/16/2024 11:59 PM CDT Hospital Encounter [facility] [address] [place] [address] 01/16/2024 Travel 01/12/2024 6:58 AM CDT - 01/12/2024 11:59 PM CDT Hospital Encounter [facility] [address] [place] [address] 01/12/2024 Travel 01/11/2024 6:56 AM CDT - 01/11/2024 11:59 PM CDT Hospital Encounter [facility] [address] [place] [address] 01/11/2024 Travel 01/05/2024 6:56 AM CDT - 01/05/2024 11:59 PM CDT Hospital Encounter [facility] [address] [place] [address] 01/05/2024 Travel 01/04/2024 6:56 AM CDT - 01/04/2024 11:59 PM CDT Hospital Encounter [facility] [address] [place] [address] 01/04/2024 Travel 01/02/2024 7:00 AM CDT - 01/02/2024 11:59 PM CDT Hospital Encounter [facility] [address] [place] [address] 01/02/2024 Travel 12/22/2023 6:51 AM CDT - 12/22/2023 11:59 PM CDT Hospital Encounter [facility] [address] [place] [address] 12/22/2023 Travel 12/21/2023 6:51 AM CDT - 12/21/2023 11:59 PM CDT Hospital Encounter [facility] [address] [address] 12/21/2023 Travel 12/19/2023 9:30 AM CDT Orders Only [facility] [address] [place] [address] 2 scans: (2-Ord) US VENOUS INSUFFICIENCY LOWER EXTREMITY BILATERAL ([id number]) 12/19/2023 7:30 AM CDT - 12/19/2023 11:59 PM CDT Hospital Encounter [facility] [address] [place] [address] 12/19/2023 Travel 12/15/2023 6:57 AM CDT - 12/15/2023 11:59 PM CDT Hospital Encounter [facility] [address] [place] [address] 12/15/2023 Travel 12/14/2023 6:54 AM CDT - 12/14/2023 11:59 PM CDT Hospital Encounter [facility] [address] [place] [address] 12/14/2023 Travel 12/13/2023 1:30 PM CDT Office Visit [facility] [address] [place] [address] Kamran Li MD Follow Up (Dr. Li [...] 12/13/2023 11:59 PM CDT Hospital Encounter [facility] [address] [place] [address] Kamran Li MD CAD, multiple vessel; S/p 3V CABG (SHER-LAD, LISA-ramus, radial-OM), 09/23/2023 12/13/2023 Travel 12/12/2023 7:00 AM CDT - 12/12/2023 11:59 PM CDT Hospital Encounter [place] [address] [place] [address] 12/12/2023 Telephone [facility] [address] [place] [address] Gina Jaime Cardiovascular Diagnostic Testing (lvm to confirm 12/13/23 stress test appt) 12/12/2023 Travel from Last 3 Months Family History [...] Care Team (Late st Contact Info) Description 05/29/2024 Procedure Only [facility] [address] [facility] [address] [place] [address] Health Maintenance Due Date [...] Priority Date/Time Associated Diagnosis Comments SCAN-CARDIAC REHABILITATION 03/07/2024 7:01 AM SENIOR ACCOUNTING SPECIALIST SCAN-CARDIAC REHABILITATION 03/05/2024 7:08 AM SENIOR ACCOUNTING SPECIALIST SCAN-CARDIAC REHABILITATION 02/29/2024 7:00 AM SENIOR ACCOUNTING SPECIALIST SCAN-CARDIAC REHABILITATION 02/27/2024 7:10 AM SENIOR ACCOUNTING SPECIALIST SCAN-CARDIAC REHABILITATION 02/23/2024 7:00 AM SENIOR ACCOUNTING SPECIALIST SCAN-CARDIAC REHABILITATION 02/22/2024 7:02 AM SENIOR ACCOUNTING SPECIALIST SCAN-CARDIAC REHABILITATION 02/20/2024 7:07 AM SENIOR ACCOUNTING SPECIALIST GLUCOSE METER Routine 02/16/2024 7:57 AM SENIOR ACCOUNTING SPECIALIST SCAN-CARDIAC REHABILITATION 02/16/2024 7:03 AM SENIOR ACCOUNTING SPECIALIST GLUCOSE METER Routine 02/15/2024 8:00 AM SENIOR ACCOUNTING SPECIALIST GLUCOSE METER Routine 02/15/2024 7:07 AM SENIOR ACCOUNTING SPECIALIST SCAN-CARDIAC REHABILITATION 02/15/2024 7:03 AM SENIOR ACCOUNTING SPECIALIST SCAN-CARDIAC REHABILITATION 02/15/2024 7:03 AM SENIOR ACCOUNTING SPECIALIST SCAN-CARDIAC REHABILITATION 02/13/2024 7:07 AM SENIOR ACCOUNTING SPECIALIST SCAN-CARDIAC REHABILITATION 02/09/2024 7:03 AM SENIOR ACCOUNTING SPECIALIST SCAN-CARDIAC REHABILITATION 02/09/2024 7:03 AM SENIOR ACCOUNTING SPECIALIST SCAN-CARDIAC REHABILITATION 02/08/2024 7:02 AM SENIOR ACCOUNTING SPECIALIST SCAN-CARDIAC REHABILITATION 02/02/2024 7:02 AM CDT SCAN-CARDIAC [...] 09/23/2023 SCAN-CARDIAC REHABILITATION 12/12/2023 7:12 AM CDT LIPID PANEL Early AM 09/18/2023 4:17 AM CDT from Last 3 Months or Most Recently Relevant to Health Maintenance Results * SCAN-CARDIAC REHABILITATION (03/07/2024 7:01 AM SENIOR ACCOUNTING SPECIALIST) Only the most recent of34 resultswithin the time period is included. Scanner OTHER * (ABNORMAL) GLUCOSE METER (02/16/2024 7:57 AM SENIOR ACCOUNTING SPECIALIST) Only the most recent of7 resultswithin the time period is included. GLUCOSE METER 166(H) 65 - 100 mg/dL 02/16/2024 8:00 AM SENIOR ACCOUNTING SPECIALIST [facility] Blood BLOOD SPECIMEN / Unknown 02/16/2024 7:57 AM SENIOR ACCOUNTING SPECIALIST 02/16/2024 8:00 AM SENIOR ACCOUNTING SPECIALIST Doctor Unknown CHEMISTRY Performing Organization Address City/State/[facility] Co de Phone Number [facility] [address] [address] * US VENOUS INSUFFICIENCY LOWER EXTREMITY BILATERAL (12/19/2023 1:21 PM CDT) Anatomical Region Laterality Modality LEGS Ultrasound 12/19/2023 9:22 AM CDT Narrative 12/19/2023 5:10 PM CDT VASCULAR ULTRASOUND REPORT JOSE GUADALUPE RIDLEY : 1960 Study Date: 12/19/2023 9:22:18 AM Age: 63 years Tech: PMK Gender: M Referring MD: ANTOINETTE SMITH Site: [facility] Study performed: Duplex US [...] and distal calf. 5. Incompetent varicose and/or key worker veins as listed below. COMPARISON: No prior [...] Accreditation Commission (IAC/Vascular), [email or web address].org/vascular Report generated by [employer]. Final Procedure Note Anderson Petersen MD - 12/19/2023 VASCULAR ULTRASOUND REPORT JOSE GUADALUPE RIDLEY : 1960 Study Date: 12/19/2023 9:22:18 AM Age: 63 years Tech: PMK Gender: M Referring MD: ANTOINETTE SMITH Site: [facility] Study performed: Duplex US [...] and distal calf. 5. Incompetent varicose and/or key worker veins as listed below. COMPARISON: No prior [...] theIntersocietal Accreditation Commission (IAC/Vascular),[email or web address].org/vascular Report generated by [employer]. Final Antoinette FAJARDO US * NM CARDIAC MPI STRESS TEST (12/13/2023 10:08 AM CDT) Anatomical Region Laterality Modality HEART Nuclear Medicine 12/13/2023 7:07 AM CDT Narrative 12/13/2023 12:48 PM CDT [address], [place] [address] Main: Myocardial Perfusion Report Rest/Stress 1 Day Single Isotope Gated SPECT imaging with Regadenoson(Lexiscan) stress ALICEKG JOSE GUADALUPE Songian ID: [id number] Age: 63 : 1960 Nuclear Tech: KKD Exam Date: 12/13/2023 07:07 Gender: M RN/Ex. Potato Peeling Machine Operator: HANG/TYLER Height: 70.9 in BSA: 2.43 m Monitoring Provider: KARY AIKEN Weight: 280 lbs BMI: 39.2 kg/m Ordering Provider: KAMRAN LI Location: [facility] Indication: S/P CABG x 3; CAD, [...] / 60 % MPHR: 51 Double Product: [id number] Recovery HR(bpm): 71 Recovery BP(mmHg): 124 / [...] 0 Apical Lateral: 0 Apical Lateral: 0 Skillman: 0 Skillman: 0 Summed Stress Score: 2 Summed Rest [...] left ventricular wall motion. Anderson Danielle MD [facility] Accredited Site (Electronically Signed) Final Date: 13 December 2023 12:48 ICD-10 Codes: Z95.1; I25.10 CC Providers: Dr. Munir Sahu Procedure Note Anderson Danielle MD - 12/13/[address], [place] [address] Main: Myocardial Perfusion Report Rest/Stress 1 Day Single Isotope Gated SPECT imaging withRegadenoson(Lexiscan) stress [facility] ID: [id number] Age: 63 : 1960 Nuclear Tech: KKD Exam Date: 12/13/2023 07:07 Gender: M RN/Ex. Potato Peeling Machine Operator: LMP/CTL Height: 70.9 in BSA: 2.43 m Monitoring Provider:KARY AIKEN Weight: 280 lbs BMI: 39.2 kg/m Ordering Provider: KAMRAN LI Location: [facility] Indication: S/P CABG x 3; CAD, [...] 142 / 60 % MPHR: 51 Double Product:[id number] Recovery HR(bpm): 71 Recovery BP(mmHg): 124 / [...] 0 Apical Lateral: 0 Apical Lateral: 0 Skillman: 0 Skillman: 0 Summed Stress Score: 2 Summed Rest [...] left ventricular wall motion. Anderson Danielle MD [facility] Accredited Site (Electronically Signed) Final Date: 13 December 2023 12:48 ICD-10 Codes: Z95.1; I25.10 CC Providers: Dr. Munir Sahu Kamran Li MD NM * LIPID PANEL (09/18/2023 4:17 AM CDT) CHOLESTEROL,TOTAL 174 100 - 199 mg/dL 09/18/2023 4:[address] [facility] Comment: Cholesterol, Total Reference Ranges Desirable <200 mg/dL Borderline 200-239 mg/dL High >=240 mg/dL TRIGLYCERIDES 105 <150 mg/dL 09/18/2023 4:54 AM T [facility] HDL CHOLESTEROL 42 >40 mg/dL 4:54 AM T [facility] NON-HDL CHOLESTEROL 132 <145 mg/dl 09/18/2023 4:[address] [facility] CHOL/HDL RATIO 4.14 <4.50 09/18/2023 4:[address] [facility] LDL CHOLESTEROL 111 <=130 mg/dL 09/18/2023 4:54 AM CDT [facility] VLDL CHOLESTEROL 21 <=30 mg/dL 09/18/2023 4:54 AM CDT [facility] PROVIDER ORDERED STATUS RANDOM 09/18/2023 4:54 AM CDT [facility] Blood BLOOD SPECIMEN / Unknown Venipuncture / Unknown 09/18/2023 4:17 AM CDT 09/18/2023 4:27 AM CDT Wendy Lomeli DO CHEMISTRY [facility] [place] [address] [id number] [address] [place] [address] from Last 3 Months or Most Recently [...] Code Status Discussion: Not Discussed Care Teams Geosciences Associate Professor Relationship Specialty Start Date End Date Munir Sahu MD [address] [place] [address] PCP - General Family Practice 09/17/23 [facility] [address] [place] [address] 09/28/23
--- OUTSIDE RECORDS SUMMARY | 2024-03-09 07:54 | XMS_ITS | Clinical Summary ---
Author Organization [facility] Address [address] [place] [address] Care Team Providers Care Stock Driver Name Role Phone Munir Sahu MD Primary Care Provider + [phone] Allergies Active Allergy Reactions Criticality Noted Date [...] on file Insurance [facility] Advance Directives For more information, please contact: [phone] * Full Code (Latest Code Status on File) Date Activated Date Inactivated Comments 11/06/2019 2:19 PM 11/07/2019 9:06 PM All basic and advanced life-sustaining interventions are performed as appropriate Question Answer Comments Code status determined by: Unable to det ermine; FULL CODE until documents or legal decision maker available Care Teams Stock Driver Relationship Specialty Start Date End Date Munir Sahu MD PCP - General Family Practice 10/22/19
--- OUTSIDE RECORDS SUMMARY | 2024-03-09 07:54 | XMS_ITS | Clinical Summary ---
Author Organization [facility] Address [address] [place] [address] Care Team Providers Care Grain Handler Name Role Phone Elsewhere, Pcp Primary Care Provider Unavailabl e Source Comments Patient records contain information from all sites at [facility]. For routine questions regarding patient records, call [phone] during business hours, M-F 8:00 AM - 5:00 PM Central Time. Record requests for emergency care only can be directed to [phone] at any time.[facility] Allergies Active Allergy Reactions Criticality Noted Date Comments Dimethicone-Petrolatum Rash 02/01/2014 Horse [place] Rash 07/16/2016 Silver Sulfate-Foam Bandage Rash 02/02/20 [...] mouth. 0 Active FreeStyle João 14 Day [place] misc 1 Active FreeStyle João 14 Day [...] on file Legal Sex Male 11:54 PM COMMERCIAL ELECTRICIAN Gender Identity Not on file Sexual Orientation Not on file Last Filed Vital Signs Vital Sign Reading Time Taken Comments Blood Pressure 160/85 04/17/2021 1:03 PM COMMERCIAL ELECTRICIAN Pulse 74 04/17/2021 1:03 PM COMMERCIAL ELECTRICIAN Temperature 36.4 C (97.5 F) 04/17/2021 1:03 PM COMMERCIAL ELECTRICIAN Respiratory Rate 14 02/15/2021 1:17 PM COMMERCIAL ELECTRICIAN Oxygen Saturation 95% 02/15/2021 1:17 PM COMMERCIAL ELECTRICIAN Inhaled Oxygen Concentration - - Weight 138 kg (304 lb 3.8 oz) 04/17/2021 1:03 PM COMMERCIAL ELECTRICIAN Height 178 cm (5' 10.08) 04/17/2021 1:03 PM COMMERCIAL ELECTRICIAN Body Mass Index 43.55 04/17/2021 1:03 PM COMMERCIAL ELECTRICIAN Plan of Treatment Health Maintenance Due Date [...] BLOOD ADD-ON Final Result Performing Organization Address City/[facility] de Phone Number POWERCHART * (ABNORMAL) [...] BLOOD ADD-ON Final Result Performing Organization Address [facility] de Phone Number POWERCHART * (ABNORMAL) [...] 5.2 GDL POWERCHART HXeGFR (MDRD) >60 >=60 [id number] 2 POWERCHART eGFR Black/ >60 >=60 [id number] 2 POWERCHART Blood 01/08/2014 10:1 6 AM CDT Curtis Avery M.D. LAB BLOOD ADD-ON Final Result POWERCHART from Last 3 Months or Most Recently Relevant to Health Maintenance Insurance [facility] [place] [id number] Care Teams Grain Handler Relationship Specialty Start Date End Date Elsewhere, Pcp PCP - General Family Medicine 06/15/17
--- OUTSIDE RECORDS SUMMARY | 2024-03-09 07:54 | XMS_ITS | Referral Summary ---
Author Organization [facility] Address [address] [place] [address] Care Team Providers Care Fine Chemicals Operator Name Role Phone Elsewhere, Pcp Primary Care Provider Unavailabl e Source Comments Patient records contain information from all sites at [facility]. For routine questions regarding patient records, call [phone] during business hours, M-F 8:00 AM - 5:00 PM Central Time. Record requests for emergency care only can be directed to [phone] at any time.[facility] Allergies Active Allergy Reactions Criticality Noted Date Comments Dimethicone-Petrolatum Rash 02/01/2014 Horse [place] Rash 07/16/2016 Silver Sulfate-Foam Bandage Rash 02/02/20 [...] mouth. 0 Active FreeStyle João 14 Day [place] misc 1 Active FreeStyle João 14 Day [...] on file Legal Sex Male 11:54 PM BUSINESS PLANNING DIRECTOR Gender Identity Not on file Sexual Orientation Not on file Last Filed Vital Signs Vital Sign Reading Time Taken Comments Blood Pressure 160/85 04/17/2021 1:03 PM BUSINESS PLANNING DIRECTOR Pulse 74 04/17/2021 1:03 PM BUSINESS PLANNING DIRECTOR Temperature 36.4 C (97.5 F) 04/17/2021 1:03 PM BUSINESS PLANNING DIRECTOR Respiratory Rate 14 02/15/2021 1:17 PM BUSINESS PLANNING DIRECTOR Oxygen Saturation 95% 02/15/2021 1:17 PM BUSINESS PLANNING DIRECTOR Inhaled Oxygen Concentration - - Weight 138 kg (304 lb 3.8 oz) 04/17/2021 1:03 PM BUSINESS PLANNING DIRECTOR Height 178 cm (5' 10.08) 04/17/2021 1:03 PM BUSINESS PLANNING DIRECTOR Body Mass Index 43.55 04/17/2021 1:03 PM BUSINESS PLANNING DIRECTOR Plan of Treatment Not on file Procedures [...] BLOOD ADD-ON Final Result Performing Organization Address City/[facility] de Phone Number POWERCHART * (ABNORMAL) [...] 5.2 GDL POWERCHART HXeGFR (MDRD) >60 >=60 [id number] 2 POWERCHART eGFR Black/ >60 >=60 [id number] 2 POWERCHART Blood 01/08/2014 10:1 6 AM CDT Curtis Avery M.D. LAB BLOOD ADD-ON Final Result POWERCHART from Last 3 Months or Most Recently Relevant to Health Maintenance Insurance [place] [id number] [facility] [place]ER [place] [id number] Care Teams Fine Chemicals Operator Relationship Specialty Start Date End Date Elsewhere, Pcp PCP - General Family Medicine 06/15/17
--- OUTSIDE RECORDS SUMMARY | 2024-03-09 07:54 | XMS_ITS | Referral Summary ---
Author Organization [facility] Address [address] [place] [address] Care Team Providers Care Change Management Manager Name Role Phone Munir Sahu MD Primary Care Provider + [phone] Allergies Active Allergy Reactions Criticality Noted Date [...] on file Insurance [facility] [place] [address] Advance Directives For more information, please contact: [phone] * Full Code (Latest Code Status on File) Date Activated Date Inactivated Comments 11/06/2019 2:19 PM 11/07/2019 9:06 PM All basic and advanced life-sustaining interventions are performed as appropriate Question Answer Comments Code status determined by: Unable to det ermine; FULL CODE until documents or legal decision maker available Care Teams Change Management Manager Relationship Specialty Start Date End Date Munir Sahu MD PCP - General Family Practice 10/22/19
--- OUTSIDE RECORDS SUMMARY | 2024-03-09 07:54 | XMS_ITS ---
Author Organization [facility] Address [address] [place] [address] Care Team Providers Care Brick Paver Name Role Phone Unavailable Unavailable Unavailable Surgery Details Not on file Complications Check Surgery Details section. Procedure Estimated Blood Loss Check Surgery Details section. Procedure Findings Check Surgery Details section. Procedure Specimens Taken Check Surgery Details section.
== END 2024-03-09 07:53 | disposition home or self-care (01) ==
LOC: WOUND 07:52
PROVIDERS: PCP Family Medicine; Visit Provider Nurse Practitioner Family
DX: I87.312 Chronic venous hypertension (idiopathic) with ulcer of left lower extremity (principal); I87.2 Venous insufficiency (chronic) (peripheral); I89.0 Lymphedema, not elsewhere classified; E11.622 Type 2 diabetes mellitus with other skin ulcer; L97.322 Non-pressure chronic ulcer of left ankle with fat layer exposed; Z79.4 Long term (current) use of insulin
CPT/HCPCS: 11042

== ENCOUNTER 2024-03-16 07:53 | Outpatient (CLI) | payer OTHER, SELFPAY | END 2024-03-16 07:54 | disposition home or self-care (01) | LOC: WOUND 07:53 | PROVIDERS: PCP Family Medicine; Visit Provider Nurse Practitioner Family | DX: I87.312 Chronic venous hypertension (idiopathic) with ulcer of left lower extremity (principal); I87.2 Venous insufficiency (chronic) (peripheral); E11.622 Type 2 diabetes mellitus with other skin ulcer; L97.322 Non-pressure chronic ulcer of left ankle with fat layer exposed; Z79.4 Long term (current) use of insulin | CPT/HCPCS: 11042 ==

== ENCOUNTER 2024-03-30 07:50 | Outpatient (CLI) | payer OTHER, SELFPAY | END 2024-03-30 07:51 | disposition home or self-care (01) | LOC: WOUND 07:50 | PROVIDERS: PCP Family Medicine; Visit Provider Nurse Practitioner Family | DX: I87.312 Chronic venous hypertension (idiopathic) with ulcer of left lower extremity (principal); I87.2 Venous insufficiency (chronic) (peripheral); I89.0 Lymphedema, not elsewhere classified; E11.622 Type 2 diabetes mellitus with other skin ulcer; L97.322 Non-pressure chronic ulcer of left ankle with fat layer exposed; S80.812A Abrasion, left lower leg, initial encounter; Z79.4 Long term (current) use of insulin | CPT/HCPCS: 11042; 97597; G0463 ==

== ENCOUNTER 2024-04-06 07:45 | Outpatient (CLI) | payer OTHER, SELFPAY ==
--- OUTSIDE RECORDS SUMMARY | 2024-04-05 16:16 | XMS_ITS | Clinical Summary ---
Author Organization [facility] Address [address] [place] [address] Care Team Providers Care Saxophone Teacher Name Role Phone Munir Sahu MD Primary Care Provider + [phone] Allergies Active Allergy Reactions Criticality Noted Date [...] Plan of Treatment Not on file Insurance [facility] COMMERCIAL Advance Directives For more information, please contact: [phone] * Full Code (Latest Code Status on File) Date Activated Date Inactivated Comments 11/06/2019 2:19 PM 11/07/2019 9:06 PM All basic and advanced life-sustaining interventions are performed as appropriate Question Answer Comments Code status determined by: Unable to det ermine; FULL CODE until documents or legal decision maker available Care Teams Saxophone Teacher Relationship Specialty Start Date End Date Munir Sahu MD PCP - General Family Practice 10/22/19
--- OUTSIDE RECORDS SUMMARY | 2024-04-05 16:17 | XMS_ITS | Referral Summary ---
Author Organization [facility] Address [address] [place] [id number] Care Team Providers Care Statuary Painter Name Role Phone Munir Sahu MD Primary Care Provider + [phone] Allergies Active Allergy Reactions Criticality Noted Date [...] Plan of Treatment Not on file Insurance [facility] Advance Directives For more information, please contact: [phone] * Full Code (Latest Code Status on File) Date Activated Date Inactivated Comments 11/06/2019 2:19 PM 11/07/2019 9:06 PM All basic and advanced life-sustaining interventions are performed as appropriate Question Answer Comments Code status determined by: Unable to det ermine; FULL CODE until documents or legal decision maker available Care Teams Statuary Painter Relationship Specialty Start Date End Date Munir Sahu MD PCP - General Family Practice 10/22/19
--- OUTSIDE RECORDS SUMMARY | 2024-04-05 16:17 | XMS_ITS | Referral Summary ---
Author Organization [facility] Address [address] [place] [address] Care Team Providers Care Heart Nurse Name Role Phone Elsewhere, Pcp Primary Care Provider Unavailabl e Source Comments Patient records contain information from all sites at [facility]. For routine questions regarding patient records, call [phone] during business hours, M-F 8:00 AM - 5:00 PM Central Time. Record requests for emergency care only can be directed to [phone] at any time.[facility] Allergies Active Allergy Reactions Criticality Noted Date [...] mouth. 0 Active FreeStyle João 14 Day [place] misc 1 Active FreeStyle João 14 Day [...] on file Legal Sex Male 11:54 PM PSYCH SOCIAL WORKER Gender Identity Not on file Sexual Orientation Not on file Last Filed Vital Signs Vital Sign Reading Time Taken Comments Blood Pressure 160/85 04/17/2021 1:03 PM PSYCH SOCIAL WORKER Pulse 74 04/17/2021 1:03 PM PSYCH SOCIAL WORKER Temperature 36.4 C (97.5 F) 04/17/2021 1:03 PM PSYCH SOCIAL WORKER Respiratory Rate 14 02/15/2021 1:17 PM PSYCH SOCIAL WORKER Oxygen Saturation 95% 02/15/2021 1:17 PM PSYCH SOCIAL WORKER Inhaled Oxygen Concentration - - Weight 138 kg (304 lb 3.8 oz) 04/17/2021 1:03 PM PSYCH SOCIAL WORKER Height 178 cm (5' 10.08) 04/17/2021 1:03 PM PSYCH SOCIAL WORKER Body Mass Index 43.55 04/17/2021 1:03 PM PSYCH SOCIAL WORKER Plan of Treatment Not on file Procedures [...] BLOOD ADD-ON Final Result Performing Organization Address City/[facility] de Phone Number POWERCHART [...] 5.2 GDL POWERCHART HXeGFR (MDRD) >60 >=60 [id number] 2 POWERCHART eGFR Black/ >60 >=60 [id number] POWERCHART Blood 01/08/2014 10:1 6 AM CDT Curtis Avery M.D. LAB BLOOD ADD-ON Final Result POWERCHART from Last 3 Months or Most Recently Relevant to Health Maintenance Insurance [employer] [place]ae [id number] [facility] [employer] [place] [id number] Care Teams Heart Nurse Relationship Specialty Start Date End Date Elsewhere, Pcp PCP - General Family Medicine 06/15/17
--- OUTSIDE RECORDS SUMMARY | 2024-04-05 16:17 | XMS_ITS | Clinical Summary ---
Author Organization [facility] Address [address] [place] [address] Care Team Providers Care Breakfast Supervisor Name Role Phone Elsewhere, Pcp Primary Care Provider Unavailabl e Source Comments Patient records contain information from all sites at [facility]. For routine questions regarding patient records, call [phone] during business hours, M-F 8:00 AM - 5:00 PM Central Time. Record requests for emergency care only can be directed to [phone] at any time.[facility] Allergies Active Allergy Reactions Criticality Noted Date Comments Dimethicone-Petrolatum Rash 02/01/2014 Horse [place] Rash 07/16/2016 Silver Sulfate-Foam Bandage Rash 02/02/20 [...] mouth. 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 Gender Identity Not on file Sexual Orientation Not on file Last Filed Vital Signs Vital Sign Reading Time Taken Comments Blood Pressure 160/85 04/17/2021 1:03 PM WELDING PROCESS ENGINEER Pulse 74 04/17/2021 1:03 PM WELDING PROCESS ENGINEER Temperature 36.4 C (97.5 F) 04/17/2021 1:03 PM WELDING PROCESS ENGINEER Respiratory Rate 14 02/15/2021 1:17 PM WELDING PROCESS ENGINEER Oxygen Saturation 95% 02/15/2021 1:17 PM WELDING PROCESS ENGINEER Inhaled Oxygen Concentration - - Weight 138 kg (304 lb 3.8 oz) 04/17/2021 1:03 PM WELDING PROCESS ENGINEER Height 178 cm (5' 10.08) 04/17/2021 1:03 PM WELDING PROCESS ENGINEER Body Mass Index 43.55 04/17/2021 1:03 PM WELDING PROCESS ENGINEER Plan of Treatment Health Maintenance Due [...] 07/2023, 10/20/2023, Additional history exists Pneumococcal vaccine (50+ years) (3 of 3 - PCV20 or PCV21) 01/15/2026 01/15/2021, 05/15/2018 Pneumococcal vaccine (0-49 years) (3 of 3 - PPSV23 or [...] (ABNORMAL) Hemoglobin A1c (01/08/2014 2:53 PM CDT) Pathologist [facility] Hemoglobin A1c, B 6.80(H) <=5.60 A1C POWERCHART Blood 01/08/2014 2:53 PM CDT Curtis Avery M.D. LAB BLOOD ADD-ON Final Result Performing Organization Address [email or web address] de Phone Number POWERCHART * (ABNORMAL) Lipid Panel (01/08/2014 10:16 AM CDT) Pathologist [facility] Calculated LDL 101(H) 0 - 100 MGDL POWERCHART Total Cholesterol/HDL Ratio 4.81(H) 2.20 - 4.40 POWERCHART Cholesterol, Total 178 <=200 MGDL POWERCHART HX HDL 37(L) 40 - 60 MGDL POWERCHART Triglycerides 201(H) <=150 MGDL POWERCHART HXLDL/HDL 3 POWERCHART Blood 01/08/2014 10:1 6 AM CDT Curtis Avery M.D. LAB BLOOD ADD-ON Final Result Performing Organization Address [email or web address] de Phone Number POWERCHART * (ABNORMAL) CMP (Comprehensive Metabolic Panel) (01/08/2014 10:16 AM CDT) Pathologist [facility] Alkaline Phosphatase, S 103 45 - 115 [...] 5.2 GDL POWERCHART HXeGFR (MDRD) >60 >=60 [id number] 2 POWERCHART eGFR Black/ >60 >=60 [id number] 2 POWERCHART Blood 01/08/2014 10:1 6 AM CDT Curtis Avery M.D. LAB BLOOD ADD-ON Final Result POWERCHART from Last 3 Months or Most Recently Relevant to Health Maintenance Insurance [employer]ae [id number] [facility] [employer] [place] [phone] Care Teams Breakfast Supervisor Relationship Specialty Start Date End Date Elsewhere, Pcp PCP - General Family Medicine 06/15/17
--- OUTSIDE RECORDS SUMMARY | 2024-04-05 16:17 | XMS_ITS ---
Author Organization [facility] Address [address] [place] [address] Care Team Providers Care Triple Air Valve Tester Name Role Phone Unavailable Unavailable Unavailable Surgery Details Not on file Complications Check Surgery Details section. Procedure Estimated Blood Loss Check Surgery Details section. Procedure Findings Check Surgery Details section. Procedure Specimens Taken Check Surgery Details section.
== END 2024-04-06 07:46 | disposition home or self-care (01) ==
LOC: WOUND 07:45
PROVIDERS: PCP Family Medicine; Visit Provider Nurse Practitioner Family
DX: I87.312 Chronic venous hypertension (idiopathic) with ulcer of left lower extremity (principal); E11.622 Type 2 diabetes mellitus with other skin ulcer; I87.2 Venous insufficiency (chronic) (peripheral); L97.322 Non-pressure chronic ulcer of left ankle with fat layer exposed; S80.812A Abrasion, left lower leg, initial encounter; Z79.4 Long term (current) use of insulin
CPT/HCPCS: 11042; 97597

== ENCOUNTER 2024-04-09 11:45 | Outpatient (CLI) | payer OTHER, SELFPAY | END 2024-04-09 11:46 | disposition home or self-care (01) | LOC: FBOREF 11:47 | PROVIDERS: PCP Family Medicine; Visit Provider Family Medicine | DX: I10 Essential (primary) hypertension (principal) | CPT/HCPCS: 80048 ==

== ENCOUNTER 2024-04-20 07:54 | Outpatient (CLI) | payer OTHER, SELFPAY | END 2024-04-20 07:55 | disposition home or self-care (01) | LOC: WOUND 07:54 | PROVIDERS: PCP Family Medicine; Visit Provider Nurse Practitioner Family | DX: I87.312 Chronic venous hypertension (idiopathic) with ulcer of left lower extremity (principal); I87.2 Venous insufficiency (chronic) (peripheral); I89.0 Lymphedema, not elsewhere classified; E11.622 Type 2 diabetes mellitus with other skin ulcer; L97.322 Non-pressure chronic ulcer of left ankle with fat layer exposed; Z79.4 Long term (current) use of insulin | CPT/HCPCS: 97597 ==

== ENCOUNTER 2024-04-27 07:51 | Outpatient (CLI) | payer OTHER, SELFPAY | END 2024-04-27 07:52 | disposition home or self-care (01) | LOC: WOUND 07:51 | PROVIDERS: PCP Family Medicine; Visit Provider Nurse Practitioner Family | DX: I87.312 Chronic venous hypertension (idiopathic) with ulcer of left lower extremity (principal); I87.2 Venous insufficiency (chronic) (peripheral); I89.0 Lymphedema, not elsewhere classified; E11.622 Type 2 diabetes mellitus with other skin ulcer; L97.322 Non-pressure chronic ulcer of left ankle with fat layer exposed; Z79.4 Long term (current) use of insulin | CPT/HCPCS: 11042 ==

== ENCOUNTER 2024-05-04 07:50 | Outpatient (CLI) | payer OTHER, SELFPAY | END 2024-05-04 07:51 | disposition home or self-care (01) | LOC: WOUND 07:51 | PROVIDERS: PCP Family Medicine; Visit Provider Physician Assistant | DX: I87.312 Chronic venous hypertension (idiopathic) with ulcer of left lower extremity (principal); I87.2 Venous insufficiency (chronic) (peripheral); I89.0 Lymphedema, not elsewhere classified; E11.622 Type 2 diabetes mellitus with other skin ulcer; L97.322 Non-pressure chronic ulcer of left ankle with fat layer exposed; Z79.4 Long term (current) use of insulin | CPT/HCPCS: 97597 ==

== ENCOUNTER 2024-05-11 07:54 | Outpatient (CLI) | payer OTHER, SELFPAY | END 2024-05-11 07:55 | disposition home or self-care (01) | LOC: WOUND 07:55 | PROVIDERS: PCP Family Medicine; Visit Provider Physician Assistant Surgical | DX: I87.2 Venous insufficiency (chronic) (peripheral) (principal); E11.622 Type 2 diabetes mellitus with other skin ulcer; I89.0 Lymphedema, not elsewhere classified; L97.322 Non-pressure chronic ulcer of left ankle with fat layer exposed; Z79.4 Long term (current) use of insulin | CPT/HCPCS: 11042 ==

== ENCOUNTER 2024-05-18 07:46 | Outpatient (CLI) | payer OTHER, SELFPAY | END 2024-05-18 07:47 | disposition home or self-care (01) | LOC: WOUND 07:46 | PROVIDERS: PCP Family Medicine; Visit Provider Nurse Practitioner Family | DX: I87.312 Chronic venous hypertension (idiopathic) with ulcer of left lower extremity (principal); I87.2 Venous insufficiency (chronic) (peripheral); I89.0 Lymphedema, not elsewhere classified; E11.622 Type 2 diabetes mellitus with other skin ulcer; L97.322 Non-pressure chronic ulcer of left ankle with fat layer exposed; Z79.4 Long term (current) use of insulin | CPT/HCPCS: 97597 ==

== ENCOUNTER 2024-05-25 07:49 | Outpatient (CLI) | payer OTHER, SELFPAY | END 2024-05-25 07:50 | disposition home or self-care (01) | PROVIDERS: PCP Family Medicine; Visit Provider Nurse Practitioner Family | DX: I87.312 Chronic venous hypertension (idiopathic) with ulcer of left lower extremity (principal); I89.0 Lymphedema, not elsewhere classified; E11.622 Type 2 diabetes mellitus with other skin ulcer; L97.322 Non-pressure chronic ulcer of left ankle with fat layer exposed; Z79.4 Long term (current) use of insulin | CPT/HCPCS: 15271; Q4101 ==

== ENCOUNTER 2024-06-01 07:49 | Outpatient (CLI) | payer OTHER, SELFPAY | END 2024-06-01 07:50 | disposition home or self-care (01) | LOC: WOUND 07:49 | PROVIDERS: PCP Family Medicine; Visit Provider Physician Assistant | DX: I87.312 Chronic venous hypertension (idiopathic) with ulcer of left lower extremity (principal); I87.2 Venous insufficiency (chronic) (peripheral); I89.0 Lymphedema, not elsewhere classified; E11.622 Type 2 diabetes mellitus with other skin ulcer; L97.322 Non-pressure chronic ulcer of left ankle with fat layer exposed; Z79.4 Long term (current) use of insulin | CPT/HCPCS: G0463 ==

== ENCOUNTER 2024-06-08 07:53 | Outpatient (CLI) | payer OTHER, SELFPAY | END 2024-06-08 07:54 | disposition home or self-care (01) | LOC: WOUND 07:54 | PROVIDERS: PCP Family Medicine; Visit Provider Nurse Practitioner Family | DX: I87.312 Chronic venous hypertension (idiopathic) with ulcer of left lower extremity (principal); I87.2 Venous insufficiency (chronic) (peripheral); I89.0 Lymphedema, not elsewhere classified; E11.622 Type 2 diabetes mellitus with other skin ulcer; L97.328 Non-pressure chronic ulcer of left ankle with other specified severity; Z79.4 Long term (current) use of insulin | CPT/HCPCS: G0463 ==

== ENCOUNTER 2024-06-15 07:54 | Outpatient (CLI) | payer OTHER, SELFPAY | END 2024-06-15 07:55 | disposition home or self-care (01) | PROVIDERS: PCP Family Medicine; Visit Provider Nurse Practitioner Family | DX: I87.312 Chronic venous hypertension (idiopathic) with ulcer of left lower extremity (principal); I87.2 Venous insufficiency (chronic) (peripheral); I89.0 Lymphedema, not elsewhere classified; E11.622 Type 2 diabetes mellitus with other skin ulcer; L97.328 Non-pressure chronic ulcer of left ankle with other specified severity; Z79.4 Long term (current) use of insulin | CPT/HCPCS: G0463 ==

== ENCOUNTER 2024-06-22 08:03 | Outpatient (CLI) | payer OTHER, SELFPAY | END 2024-06-22 08:04 | disposition home or self-care (01) | LOC: WOUND 08:04 | PROVIDERS: PCP Family Medicine; Visit Provider Nurse Practitioner Family | DX: I89.0 Lymphedema, not elsewhere classified (principal); I87.2 Venous insufficiency (chronic) (peripheral); E11.9 Type 2 diabetes mellitus without complications; Z79.4 Long term (current) use of insulin | CPT/HCPCS: G0463 ==

== ENCOUNTER 2024-09-07 08:01 | Outpatient (CLI) | payer OTHER, SELFPAY | END 2024-09-07 08:02 | disposition home or self-care (01) | LOC: WOUND 08:03 | PROVIDERS: PCP Family Medicine; Visit Provider Nurse Practitioner Family | DX: I87.311 Chronic venous hypertension (idiopathic) with ulcer of right lower extremity (principal); E11.622 Type 2 diabetes mellitus with other skin ulcer; I89.0 Lymphedema, not elsewhere classified; L97.812 Non-pressure chronic ulcer of other part of right lower leg with fat layer exposed; I25.10 Atherosclerotic heart disease of native coronary artery without angina pectoris; Z79.84 Long term (current) use of oral hypoglycemic drugs | CPT/HCPCS: 97597; G0463 ==

== ENCOUNTER 2024-09-14 08:35 | Outpatient (CLI) | payer OTHER, SELFPAY | END 2024-09-14 08:36 | disposition home or self-care (01) | LOC: WOUND 08:35 | PROVIDERS: PCP Family Medicine; Visit Provider Nurse Practitioner Family | DX: I87.311 Chronic venous hypertension (idiopathic) with ulcer of right lower extremity (principal); E11.622 Type 2 diabetes mellitus with other skin ulcer; I89.0 Lymphedema, not elsewhere classified; L97.812 Non-pressure chronic ulcer of other part of right lower leg with fat layer exposed; Z79.4 Long term (current) use of insulin | CPT/HCPCS: G0463 ==

== ENCOUNTER 2024-09-21 08:03 | Outpatient (CLI) | payer OTHER, SELFPAY | END 2024-09-21 08:04 | disposition home or self-care (01) | LOC: WOUND 08:03 | PROVIDERS: PCP Family Medicine; Visit Provider Nurse Practitioner Family | DX: I87.311 Chronic venous hypertension (idiopathic) with ulcer of right lower extremity (principal); I89.0 Lymphedema, not elsewhere classified; L97.812 Non-pressure chronic ulcer of other part of right lower leg with fat layer exposed | CPT/HCPCS: G0463 ==

== ENCOUNTER 2024-09-28 08:04 | Outpatient (CLI) | payer OTHER, SELFPAY | END 2024-09-28 08:05 | disposition home or self-care (01) | LOC: WOUND 08:04 | PROVIDERS: PCP Family Medicine; Visit Provider Nurse Practitioner Family | DX: I87.311 Chronic venous hypertension (idiopathic) with ulcer of right lower extremity (principal); I89.0 Lymphedema, not elsewhere classified; E11.622 Type 2 diabetes mellitus with other skin ulcer; L97.812 Non-pressure chronic ulcer of other part of right lower leg with fat layer exposed; Z79.4 Long term (current) use of insulin | CPT/HCPCS: G0463 ==

== ENCOUNTER 2024-10-08 08:10 | Outpatient (CLI) | payer OTHER, SELFPAY | END 2024-10-08 08:11 | disposition home or self-care (01) | PROVIDERS: PCP Family Medicine; Visit Provider Family Medicine | DX: I10 Essential (primary) hypertension (principal); C61 Malignant neoplasm of prostate | CPT/HCPCS: 80048; 84153 ==

== ENCOUNTER 2024-10-12 08:07 | Outpatient (CLI) | payer OTHER, SELFPAY | END 2024-10-12 08:08 | disposition home or self-care (01) | PROVIDERS: PCP Family Medicine; Visit Provider Nurse Practitioner Family | DX: I87.311 Chronic venous hypertension (idiopathic) with ulcer of right lower extremity (principal); I89.0 Lymphedema, not elsewhere classified; E11.622 Type 2 diabetes mellitus with other skin ulcer; L97.812 Non-pressure chronic ulcer of other part of right lower leg with fat layer exposed; Z79.4 Long term (current) use of insulin | CPT/HCPCS: 97597 ==

== ENCOUNTER 2024-10-19 08:19 | Outpatient (CLI) | payer OTHER, SELFPAY | END 2024-10-19 08:20 | disposition home or self-care (01) | LOC: WOUND 08:19 | PROVIDERS: PCP Family Medicine; Visit Provider Nurse Practitioner Family | DX: I87.311 Chronic venous hypertension (idiopathic) with ulcer of right lower extremity (principal); I89.0 Lymphedema, not elsewhere classified; E11.622 Type 2 diabetes mellitus with other skin ulcer; L97.812 Non-pressure chronic ulcer of other part of right lower leg with fat layer exposed; Z79.4 Long term (current) use of insulin | CPT/HCPCS: 97597 ==

== ENCOUNTER 2024-10-26 08:05 | Outpatient (CLI) | payer OTHER, SELFPAY | END 2024-10-26 08:06 | disposition home or self-care (01) | LOC: WOUND 08:06 | PROVIDERS: PCP Family Medicine; Visit Provider Nurse Practitioner Family | DX: I87.311 Chronic venous hypertension (idiopathic) with ulcer of right lower extremity (principal); E11.622 Type 2 diabetes mellitus with other skin ulcer; L97.812 Non-pressure chronic ulcer of other part of right lower leg with fat layer exposed; I89.0 Lymphedema, not elsewhere classified; Z79.4 Long term (current) use of insulin | CPT/HCPCS: 97597 ==

== ENCOUNTER 2024-11-02 07:57 | Outpatient (CLI) | payer OTHER, SELFPAY | END 2024-11-02 07:58 | disposition home or self-care (01) | PROVIDERS: PCP Family Medicine; Visit Provider Nurse Practitioner Family | DX: I87.311 Chronic venous hypertension (idiopathic) with ulcer of right lower extremity (principal); I89.0 Lymphedema, not elsewhere classified; E11.622 Type 2 diabetes mellitus with other skin ulcer; L97.812 Non-pressure chronic ulcer of other part of right lower leg with fat layer exposed; Z79.4 Long term (current) use of insulin | CPT/HCPCS: 97597 ==

== ENCOUNTER 2024-11-09 07:51 | Outpatient (CLI) | payer OTHER, SELFPAY | END 2024-11-09 07:52 | disposition home or self-care (01) | LOC: WOUND 07:51 | PROVIDERS: PCP Family Medicine; Visit Provider Nurse Practitioner Family | DX: I87.311 Chronic venous hypertension (idiopathic) with ulcer of right lower extremity (principal); E11.622 Type 2 diabetes mellitus with other skin ulcer; I89.0 Lymphedema, not elsewhere classified; L97.812 Non-pressure chronic ulcer of other part of right lower leg with fat layer exposed; Z79.4 Long term (current) use of insulin | CPT/HCPCS: 97597 ==

== ENCOUNTER 2024-11-23 08:04 | Outpatient (CLI) | payer OTHER, SELFPAY | END 2024-11-23 08:05 | disposition home or self-care (01) | LOC: WOUND 08:04 | PROVIDERS: PCP Family Medicine; Visit Provider Nurse Practitioner Family | DX: I87.311 Chronic venous hypertension (idiopathic) with ulcer of right lower extremity (principal); I89.0 Lymphedema, not elsewhere classified; E11.622 Type 2 diabetes mellitus with other skin ulcer; L97.812 Non-pressure chronic ulcer of other part of right lower leg with fat layer exposed; S81.801A Unspecified open wound, right lower leg, initial encounter; Z79.4 Long term (current) use of insulin | CPT/HCPCS: 97597 ==

== ENCOUNTER 2024-11-30 07:50 | Outpatient (CLI) | payer OTHER, SELFPAY | END 2024-11-30 07:51 | disposition home or self-care (01) | LOC: WOUND 07:50 | PROVIDERS: PCP Family Medicine; Visit Provider Nurse Practitioner Family | DX: I87.311 Chronic venous hypertension (idiopathic) with ulcer of right lower extremity (principal); I89.0 Lymphedema, not elsewhere classified; E11.622 Type 2 diabetes mellitus with other skin ulcer; L97.812 Non-pressure chronic ulcer of other part of right lower leg with fat layer exposed; I25.10 Atherosclerotic heart disease of native coronary artery without angina pectoris; Z79.4 Long term (current) use of insulin | CPT/HCPCS: 97597 ==

== ENCOUNTER 2024-12-07 08:42 | Outpatient (CLI) | payer OTHER, SELFPAY | END 2024-12-07 08:43 | disposition home or self-care (01) | LOC: WOUND 08:42 | PROVIDERS: PCP Family Medicine; Visit Provider Nurse Practitioner Family | DX: I87.311 Chronic venous hypertension (idiopathic) with ulcer of right lower extremity (principal); E11.622 Type 2 diabetes mellitus with other skin ulcer; L97.812 Non-pressure chronic ulcer of other part of right lower leg with fat layer exposed; I89.0 Lymphedema, not elsewhere classified; I25.10 Atherosclerotic heart disease of native coronary artery without angina pectoris; Z79.4 Long term (current) use of insulin; L29.89 Other pruritus | CPT/HCPCS: 29581; G0463 ==

== ENCOUNTER 2024-12-10 08:28 | Outpatient (CLI) | payer OTHER, SELFPAY | END 2024-12-10 08:29 | disposition home or self-care (01) | PROVIDERS: PCP Family Medicine; Visit Provider Nurse Practitioner Family | DX: I87.311 Chronic venous hypertension (idiopathic) with ulcer of right lower extremity (principal); E11.622 Type 2 diabetes mellitus with other skin ulcer; L97.812 Non-pressure chronic ulcer of other part of right lower leg with fat layer exposed; I89.0 Lymphedema, not elsewhere classified; I25.10 Atherosclerotic heart disease of native coronary artery without angina pectoris; Z79.4 Long term (current) use of insulin | CPT/HCPCS: 29581 ==

== ENCOUNTER 2024-12-14 07:47 | Outpatient (CLI) | payer OTHER, SELFPAY | END 2024-12-14 07:48 | disposition home or self-care (01) | LOC: WOUND 07:47 | PROVIDERS: PCP Family Medicine; Visit Provider Nurse Practitioner Family | DX: I87.311 Chronic venous hypertension (idiopathic) with ulcer of right lower extremity (principal); I89.0 Lymphedema, not elsewhere classified; E11.622 Type 2 diabetes mellitus with other skin ulcer; L97.812 Non-pressure chronic ulcer of other part of right lower leg with fat layer exposed; I25.10 Atherosclerotic heart disease of native coronary artery without angina pectoris; Z79.4 Long term (current) use of insulin | CPT/HCPCS: 11042; 87070; 87186 ==

== ENCOUNTER 2024-12-20 07:50 | Outpatient (CLI) | payer OTHER, SELFPAY | END 2024-12-20 07:51 | disposition home or self-care (01) | LOC: WOUND 07:50 | PROVIDERS: PCP Family Medicine; Visit Provider Nurse Practitioner Family | DX: I87.311 Chronic venous hypertension (idiopathic) with ulcer of right lower extremity (principal); E11.622 Type 2 diabetes mellitus with other skin ulcer; L97.812 Non-pressure chronic ulcer of other part of right lower leg with fat layer exposed; I89.0 Lymphedema, not elsewhere classified; I25.10 Atherosclerotic heart disease of native coronary artery without angina pectoris; Z79.4 Long term (current) use of insulin | CPT/HCPCS: 29581; G0463 ==

== ENCOUNTER 2024-12-25 08:04 | Outpatient (CLI) | payer OTHER, SELFPAY | END 2024-12-25 08:05 | disposition home or self-care (01) | LOC: WOUND 08:04 | PROVIDERS: PCP Family Medicine; Visit Provider Nurse Practitioner Family | DX: I87.311 Chronic venous hypertension (idiopathic) with ulcer of right lower extremity (principal); E11.622 Type 2 diabetes mellitus with other skin ulcer; L97.812 Non-pressure chronic ulcer of other part of right lower leg with fat layer exposed; I89.0 Lymphedema, not elsewhere classified; Z79.4 Long term (current) use of insulin | CPT/HCPCS: 29581 ==

== ENCOUNTER 2024-12-28 07:43 | Outpatient (CLI) | payer OTHER, SELFPAY | END 2024-12-28 07:44 | disposition home or self-care (01) | LOC: WOUND 07:47 | PROVIDERS: PCP Family Medicine; Visit Provider Nurse Practitioner Family | DX: I87.311 Chronic venous hypertension (idiopathic) with ulcer of right lower extremity (principal); I89.0 Lymphedema, not elsewhere classified; E11.622 Type 2 diabetes mellitus with other skin ulcer; L97.812 Non-pressure chronic ulcer of other part of right lower leg with fat layer exposed; I25.10 Atherosclerotic heart disease of native coronary artery without angina pectoris; Z79.4 Long term (current) use of insulin | CPT/HCPCS: 11042 ==

== ENCOUNTER 2025-01-04 08:14 | Outpatient (CLI) | payer OTHER, SELFPAY | END 2025-01-04 08:15 | disposition home or self-care (01) | LOC: WOUND 08:14 | PROVIDERS: PCP Family Medicine; Visit Provider Family Medicine | DX: I87.311 Chronic venous hypertension (idiopathic) with ulcer of right lower extremity (principal); I89.0 Lymphedema, not elsewhere classified; E11.622 Type 2 diabetes mellitus with other skin ulcer; L97.812 Non-pressure chronic ulcer of other part of right lower leg with fat layer exposed; I25.10 Atherosclerotic heart disease of native coronary artery without angina pectoris; Z79.4 Long term (current) use of insulin | CPT/HCPCS: 11042; 11045; 29581 ==

== ENCOUNTER 2025-01-11 07:52 | Outpatient (CLI) | payer OTHER, SELFPAY | END 2025-01-11 07:53 | disposition home or self-care (01) | LOC: WOUND 07:52 | PROVIDERS: PCP Family Medicine; Visit Provider Nurse Practitioner Family | DX: I87.311 Chronic venous hypertension (idiopathic) with ulcer of right lower extremity (principal); I89.0 Lymphedema, not elsewhere classified; E11.622 Type 2 diabetes mellitus with other skin ulcer; L97.812 Non-pressure chronic ulcer of other part of right lower leg with fat layer exposed; I25.10 Atherosclerotic heart disease of native coronary artery without angina pectoris; Z79.4 Long term (current) use of insulin | CPT/HCPCS: 11042 ==

== ENCOUNTER 2025-01-18 07:49 | Outpatient (CLI) | payer OTHER, SELFPAY ==
[2025-01-18 08:51] LABS: Hematocrit* 47.8 % (37.0-53.0); Hemoglobin* 15.4 gm/dL (13.5-17.5); Immature Granulocytes Abs Auto 0.02 K/uL (0.00-0.30); Immature Granulocytes Pct Auto 0.3 %; Mean Corpuscular HGB Conc 32 gm/dL (32-36); Mean Corpuscular Hemoglobin 30 pg (26-34); Mean Corpuscular Volume 92 fL (80-100); RDW Coefficient of Variation % 13.4 % (11.5-15.5); Red Blood Count* 5.21 m/uL (4.30-5.90); White Blood Count* 7.57 K/uL (4.50-11.00)
[2025-01-18 08:53] LABS: Lymphocytes Absolute Auto 0.80 K/uL (0.90-2.90); Slide Review Reflex No
[2025-01-18 09:08] LABS: Chloride* 99 mmol/L (96-114); Potassium* 4.1 mmol/L (3.6-5.1); Sodium* 135 mmol/L (135-149)
[2025-01-18 09:11] LABS: Anion Gap 8 mEq/L (7-15); Blood Urea Nitrogen* 20 mg/dL (7-30); Calcium* 9.2 mg/dL (8.4-10.6); Carbon Dioxide* 28 mmol/L (20-32); Creatinine* 1.1 mg/dL (0.5-1.5); Estimated Glomerular Filt Rate 75 ml/min; Glucose* 179 mg/dL (60-115)
== END 2025-01-18 07:50 | disposition home or self-care (01) ==
LOC: WOUND 07:49
PROVIDERS: PCP Family Medicine; Visit Provider Nurse Practitioner Family
DX: I87.311 Chronic venous hypertension (idiopathic) with ulcer of right lower extremity (principal); I89.0 Lymphedema, not elsewhere classified; E11.621 Type 2 diabetes mellitus with foot ulcer; L97.812 Non-pressure chronic ulcer of other part of right lower leg with fat layer exposed; I25.10 Atherosclerotic heart disease of native coronary artery without angina pectoris; Z79.4 Long term (current) use of insulin
CPT/HCPCS: 36415; 80048; 83036; 85025; 86140; 97597

== ENCOUNTER 2025-01-25 07:53 | Outpatient (CLI) | payer OTHER, SELFPAY | END 2025-01-25 07:54 | disposition home or self-care (01) | LOC: WOUND 07:53 | PROVIDERS: PCP Family Medicine; Visit Provider Nurse Practitioner Family | DX: I87.311 Chronic venous hypertension (idiopathic) with ulcer of right lower extremity (principal); I89.0 Lymphedema, not elsewhere classified; E11.621 Type 2 diabetes mellitus with foot ulcer; L97.812 Non-pressure chronic ulcer of other part of right lower leg with fat layer exposed; I25.10 Atherosclerotic heart disease of native coronary artery without angina pectoris; Z79.4 Long term (current) use of insulin | CPT/HCPCS: 11042; 11045 ==

== ENCOUNTER 2025-02-01 08:08 | Outpatient (CLI) | payer OTHER, SELFPAY | END 2025-02-01 08:09 | disposition home or self-care (01) | LOC: WOUND 08:08 | PROVIDERS: PCP Family Medicine; Visit Provider Nurse Practitioner Family | DX: I87.311 Chronic venous hypertension (idiopathic) with ulcer of right lower extremity (principal); I89.0 Lymphedema, not elsewhere classified; E11.622 Type 2 diabetes mellitus with other skin ulcer; L97.812 Non-pressure chronic ulcer of other part of right lower leg with fat layer exposed; I25.10 Atherosclerotic heart disease of native coronary artery without angina pectoris; Z79.4 Long term (current) use of insulin | CPT/HCPCS: 11042 ==

== ENCOUNTER 2025-02-08 07:44 | Outpatient (CLI) | payer OTHER, SELFPAY | END 2025-02-08 07:45 | disposition home or self-care (01) | LOC: WOUND 07:44 | PROVIDERS: PCP Family Medicine | DX: I87.311 Chronic venous hypertension (idiopathic) with ulcer of right lower extremity (principal); I89.0 Lymphedema, not elsewhere classified; E11.622 Type 2 diabetes mellitus with other skin ulcer; L97.812 Non-pressure chronic ulcer of other part of right lower leg with fat layer exposed; I25.10 Atherosclerotic heart disease of native coronary artery without angina pectoris; Z79.4 Long term (current) use of insulin | CPT/HCPCS: 11042; 11045 ==

== ENCOUNTER 2025-02-15 08:01 | Outpatient (CLI) | payer OTHER, SELFPAY | END 2025-02-15 08:02 | disposition home or self-care (01) | LOC: WOUND 08:01 | PROVIDERS: PCP Family Medicine; Visit Provider Nurse Practitioner Family | DX: I87.311 Chronic venous hypertension (idiopathic) with ulcer of right lower extremity (principal); I89.0 Lymphedema, not elsewhere classified; E11.622 Type 2 diabetes mellitus with other skin ulcer; L97.812 Non-pressure chronic ulcer of other part of right lower leg with fat layer exposed; Z79.4 Long term (current) use of insulin | CPT/HCPCS: 11042; 11045 ==

== ENCOUNTER 2025-02-22 07:46 | Outpatient (CLI) | payer OTHER, SELFPAY | END 2025-02-22 07:47 | disposition home or self-care (01) | LOC: WOUND 07:46 | PROVIDERS: PCP Family Medicine; Visit Provider Nurse Practitioner Family | DX: I87.311 Chronic venous hypertension (idiopathic) with ulcer of right lower extremity (principal); I89.0 Lymphedema, not elsewhere classified; E11.622 Type 2 diabetes mellitus with other skin ulcer; L97.812 Non-pressure chronic ulcer of other part of right lower leg with fat layer exposed; I25.10 Atherosclerotic heart disease of native coronary artery without angina pectoris; Z79.4 Long term (current) use of insulin | CPT/HCPCS: 11042 ==

== ENCOUNTER 2025-03-01 08:00 | Outpatient (CLI) | payer OTHER, SELFPAY | END 2025-03-01 08:01 | disposition home or self-care (01) | LOC: WOUND 08:00 | PROVIDERS: PCP Family Medicine; Visit Provider Physician Assistant | DX: I87.311 Chronic venous hypertension (idiopathic) with ulcer of right lower extremity (principal); I89.0 Lymphedema, not elsewhere classified; E11.622 Type 2 diabetes mellitus with other skin ulcer; L97.812 Non-pressure chronic ulcer of other part of right lower leg with fat layer exposed; Z79.4 Long term (current) use of insulin | CPT/HCPCS: 97597 ==

== ENCOUNTER 2025-03-08 07:48 | Outpatient (CLI) | payer OTHER, SELFPAY | END 2025-03-08 07:49 | disposition home or self-care (01) | LOC: WOUND 07:48 | PROVIDERS: PCP Family Medicine; Visit Provider Nurse Practitioner Family | DX: I87.311 Chronic venous hypertension (idiopathic) with ulcer of right lower extremity (principal); I89.0 Lymphedema, not elsewhere classified; E11.622 Type 2 diabetes mellitus with other skin ulcer; L97.812 Non-pressure chronic ulcer of other part of right lower leg with fat layer exposed; Z79.4 Long term (current) use of insulin | CPT/HCPCS: 11042 ==